=== PATIENT | female | born 1975 ===

== ENCOUNTER 2020-03-26 17:39 | Emergency (ER) | payer MEDICAID, SELFPAY ==
[2020-03-26 17:45] VITALS: BP 158/79; PULSE 83; RESP 18; TEMP 36.5; O2SAT 96; BMI 46.0
--- NOTE | 2020-03-26 20:34 | ED_ITS ---
HPI - Abdominal Pain General Chief Complaint: Abdominal Pain Stated Complaint: Abdominal pain Time Seen by Provider: 03/26/20 20:34 Source: patient Mode of arrival: EMS Limitations: no limitations and language barrier History of Present Illness HPI narrative: patient history of diabetes and gastroparesis complaining of pain left side of abdomen with nausea vomiting for last few days similar to attack 2 years ago patient today vomited about 5 times no diarrhea blood sugar was 408 per EMS but on arrival blood sugar was 295 patient denies any fever no urinary symptoms no back pain MD elicited complaint: abdominal pain Pertinent past history: gastritis Onset (ago): day(s) (2) Related Data Allergies Allergy/AdvReac Type Severity Reaction Status Date / Time ibuprofen [From MOTRIN] Allergy Unknown RASH Verified 03/26/20 21:54 penicillin V Allergy Unknown hives Verified 03/26/20 21:54 Penicillins [PENICILLINS] Allergy Unknown RASH Verified 03/26/20 21:54 MOTRIN Allergy Unknown hives Uncoded 11/12/18 00:00 Review of Systems Review of Systems REVIEW OF SYSTEMS: Pertinent positives and negatives are stated above in the history. GEN: no fevers, chills, fatigue HEENT: no nasal congestion, sore throat, ear pain NEURO: no headache, dizziness, focal weakness PULM: no cough, shortness of breath CV: no chest pain, palpitations, LE edema ABD: no , diarrhea : no dysuria, urgency, frequency SKIN: no rash ROS otherwise negative x 10 Physical Exam Vital Signs: Vital Signs: Last Vital Signs Temp 97.7 F 03/26/20 17:45 Pulse 71 03/26/20 21:52 Resp 16 03/26/20 21:52 BP 161/79 H 03/26/20 21:52 Pulse Ox 97 03/26/20 21:52 Body Mass Index 46.0 Appearance: Alert. Oriented X3. No acute distress. Eyes: Pupils equal, round and reactive to light. ENT: Pharynx normal. Neck: Normal inspection. Neck supple. CVS: Normal heart rate and rhythm. Pulses normal. Respiratory: No respiratory distress. Breath sounds normal. Abdomen: Soft and mild tenderness left-sided no rebound tenderness no guarding no mass palpable no hernia palpable no CVA tenderness bowel sounds are present in all 4 quadrants Skin: Skin warm and dry. Normal skin color. Normal skin turgor. Extremities: No lower extremity edema. Good range of movement Neuro: Oriented X 3. No motor deficit. No sensory deficit. MDM - Abdominal Pain MDM Narrative Medical decision making narrative: patient diabetes gastroparesis came with similar episode of vomiting which happened before with diffuse abdominal pain white counts are normal abdominal soft lipase normal patient able to take p.o. fluids after Reglan will discharge her home on Reglan before meals for gastroparesis Differential Diagnosis Differential diagnosis: Likely abdominal pain and pancreatitis Medical Records Attestation: I reviewed the patient's medical records. Lab Data Attestation: I reviewed the patient's lab results. Result diagrams: 03/26/20 20:41 03/26/20 20:41 Labs: Lab Results 03/26/20 03/26/20 03/26/20 Range/Units 20:40 20:41 20:41 WBC 6.3 (4.8-10.8) X10*3/uL RBC 5.06 (4.20-5.50) X10*6/uL Hgb 13.2 (12.0-16.0) g/dl Hct 42.0 (37-47) % MCV 83.0 (80-98) fL MCH 26.1 L (27.0-33.0) pg MCHC 31.4 (31.0-35.0) g/dl RDW 15.1 (11.0-16.0) % Plt Count 90 L (160-400) X10*3/uL MPV 11.6 (9.4-12.3) fL Immature Gran % (Auto) 0.2 (0.0-0.4) % Neut % (Auto) 82.3 H (45-73) % Lymph % (Auto) 12.5 L (20-40) % [place] % (Auto) 4.0 (2-11) % Eos % (Auto) 0.5 (0-4) % Baso % (Auto) 0.5 (0-2) % Lymph # (Auto) 0.8 L (1.2-4.9) X10*3/uL [place] # (Auto) 0.3 (0.1-1.2) X10*3/uL Eos # (Auto) 0.0 (0.0-0.4) X10*3/uL Baso # (Auto) 0.0 (0.0-0.2) X10*3/uL Abs Immat Gran (auto) 0.01 (0.00-0.03) X10*3/uL Absolute Neuts (auto) 5.2 (2.0-8.3) X10*3/uL Absolute Nucleated RBC 0.000 (0.0-0.012) X10*3/uL Nucleated RBC % (auto) 0.0 (0.0-0.2) /100WBC Smear Tech's Comments VERIFIED Hold Blue Top SEE NOTE Sodium (135-145) mmol/L Potassium (3.3-5.1) mmol/l Chloride (96-108) mmol/L Carbon Dioxide (22-29) mmol/L Anion Gap (12-20) BUN (9-16) mg/dL Creatinine (0.5-1.4) mg/dL Estim Creat Clear Calc Estimated GFR POC Glucose 295 H (60-115) mg/dL Random Glucose (60-115) mg/dL Calcium (8.4-10.2) mg/dL Total Bilirubin (0.0-1.0) mg/dL AST (5-31) U/L ALT (0-31) U/L Alkaline Phosphatase (39-117) U/L Total Protein (6.5-8.0) g/dL Albumin (3.5-5.0) g/dL Lipase (8-78) U/L Urine Color Urine Appearance Urine pH (5.0-8.0) Ur Specific [place] (1.005-1.025) Urine Protein (NEG-TRACE) MG/DL Urine Glucose (UA) (NEG) MG/DL Urine Ketones (NEG) MG/DL Urine Blood (NEG) Urine Nitrite (NEG) Ur Leukocyte Esterase (NEG) Urine RBC (0) /HPF Urine WBC (0-4) /HPF Ur Squamous Epith Cells /LPF Urine Bacteria /LPF Urine Test (NEGATIVE) 03/26/20 03/26/20 Range/Units 20:41 20:41 WBC (4.8-10.8) X10*3/uL RBC (4.20-5.50) X10*6/uL Hgb (12.0-16.0) g/dl Hct (37-47) % MCV (80-98) fL MCH (27.0-33.0) pg MCHC (31.0-35.0) g/dl RDW (11.0-16.0) % Plt Count (160-400) X10*3/uL MPV (9.4-12.3) fL Immature Gran % (Auto) (0.0-0.4) % Neut % (Auto) (45-73) % Lymph % (Auto) (20-40) % [place] % (Auto) (2-11) % Eos % (Auto) (0-4) % Baso % (Auto) (0-2) % Lymph # (Auto) (1.2-4.9) X10*3/uL [place] # (Auto) (0.1-1.2) X10*3/uL Eos # (Auto) (0.0-0.4) X10*3/uL Baso # (Auto) (0.0-0.2) X10*3/uL Abs Immat Gran (auto) (0.00-0.03) X10*3/uL Absolute Neuts (auto) (2.0-8.3) X10*3/uL Absolute Nucleated RBC (0.0-0.012) X10*3/uL Nucleated RBC % (auto) (0.0-0.2) /100WBC Smear Tech's Comments Hold Blue Top Sodium 133 L (135-145) mmol/L Potassium 4.3 (3.3-5.1) mmol/l Chloride 100 (96-108) mmol/L Carbon Dioxide 23 (22-29) mmol/L Anion Gap 14 (12-20) BUN 8 L (9-16) mg/dL Creatinine 0.75 (0.5-1.4) mg/dL Estim Creat Clear Calc 118.7 Estimated GFR > 60 POC Glucose (60-115) mg/dL Random Glucose 299 H (60-115) mg/dL Calcium 8.2 L (8.4-10.2) mg/dL Total Bilirubin 0.8 (0.0-1.0) mg/dL AST 81 H (5-31) U/L ALT 36 H (0-31) U/L Alkaline Phosphatase 101 (39-117) U/L Total Protein 8.4 H (6.5-8.0) g/dL Albumin 3.5 (3.5-5.0) g/dL Lipase 37 (8-78) U/L Urine Color YELLOW Urine Appearance CLEAR Urine pH 6.0 (5.0-8.0) Ur Specific [place] >= 1.030 H (1.005-1.025) Urine Protein NEG (NEG-TRACE) MG/DL Urine Glucose (UA) 500 H (NEG) MG/DL Urine Ketones 5 (NEG) MG/DL Urine Blood TRACE (NEG) Urine Nitrite NEG (NEG) Ur Leukocyte Esterase NEG (NEG) Urine RBC 0 (0) /HPF Urine WBC 0 (0-4) /HPF Ur Squamous Epith Cells NONE /LPF Urine Bacteria NONE /LPF Urine Test NEGATIVE (NEGATIVE) [facility] Past Medical History Surgical History History of colonoscopy Hx of endoscopy Family History Family History Father Unknown family medical history Mother Hx of type 1 diabetes mellitus Social History Social History Alcohol intake: never Smoking Status: Never smoker Advance Directives: No
[2020-03-26 20:43] LABS: Glucose, Whole Blood 295 mg/dL (60-115)
[2020-03-26] MEDS: 0.9 % Sodium Chloride 1,000 ML 999 ML IVCONT (20:48)
[2020-03-26] MEDS: Famotidine/PF 20 MG/2 ML VIAL IVPUSH (20:53)
[2020-03-26] MEDS: Metoclopramide HCl 10 MG/2 ML VIAL IVPUSH (20:54)
[2020-03-26 20:56] LABS: Glucose Urine UA 500 MG/DL (NEG); Leukocyte Esterase Urine NEG (NEG); Nitrite Urine NEG (NEG); Specific Gravity - Urine >= 1.030 (1.005-1.025); Urine Blood TRACE (NEG); Urine Ketones 5 MG/DL (NEG); Urine Protein NEG (NEG-TRACE)
[2020-03-26 20:57] LABS: Basophils Percent Auto 0.5 % (0-2); Eosinophils Percent Auto 0.5 % (0-4); Imm Gran Abs Auto 0.01 X10*3/uL (0.00-0.03); Imm Gran Pct Auto 0.2 % (0.0-0.4); MANUAL DIFF FLAG SCAN; Mean Corpuscular HGB Conc 31.4 g/dl (31.0-35.0); PLT CLUMP 1; Red Cell Distribution Width 15.1 % (11.0-16.0); SCAN SMEAR FLAG 1
[2020-03-26 20:58] LABS: Appearance Urine CLEAR; Color Urine YELLOW
[2020-03-26 20:59] LABS: Hemoglobin 13.2 g/dl (12.0-16.0); Lymphocytes Absolute Auto 0.8 X10*3/uL (1.2-4.9); Lymphocytes Percent Auto 12.5 % (20-40); Mean Corpuscular Hemoglobin 26.1 pg (27.0-33.0); Mean Platelet Volume 11.6 fL (9.4-12.3); Monocytes Absolute Auto 0.3 X10*3/uL (0.1-1.2); Neutrophils Absolute Auto 5.2 X10*3/uL (2.0-8.3); Neutrophils Percent Auto 82.3 % (45-73); Red Blood Count 5.06 X10*6/uL (4.20-5.50); White Blood Count 6.3 X10*3/uL (4.8-10.8)
[2020-03-26 21:00] LABS: UPreg QC Valid YES; Urine Pregnancy NEGATIVE (NEGATIVE)
[2020-03-26 21:02] LABS: RBC Urine 0 /HPF (0); WBC Urine 0 /HPF (0-4)
[2020-03-26 21:18] LABS: Platelet Count 90 X10*3/uL (160-400)
[2020-03-26 21:19] LABS: SLIDE REVIEW VERIFIED
[2020-03-26 21:38] LABS: Alanine Aminotransferase 36 U/L (0-31); Albumin Level 3.5 g/dL (3.5-5.0); Alkaline Phosphatase 101 U/L (39-117); Anion Gap 14 (12-20); Aspartate Amino Transferase 81 U/L (5-31); Bilirubin Total 0.8 mg/dL (0.0-1.0); Blood Urea Nitrogen 8 mg/dL (9-16); Calcium 8.2 mg/dL (8.4-10.2); Carbon Dioxide 23 mmol/L (22-29); Chloride 100 mmol/L (96-108); Creatinine Clr Calc Pharmacy 118.7; Estimated Glomerular Filt Rate > 60; Glucose Random 299 mg/dL (60-115); Lipase 37 U/L (8-78); Potassium 4.3 mmol/l (3.3-5.1); Sodium 133 mmol/L (135-145); Total Protein 8.4 g/dL (6.5-8.0)
[2020-03-26 21:52] VITALS: BP 161/79; PULSE 71; RESP 16; O2SAT 97
--- NOTE | 2020-03-26 22:50 | PC.NURSE ---
po challenge started.
--- NOTE | 2020-03-26 22:55 | PC.NURSE ---
after drinking some julianna nancy, vomited. Dr Rocha aware.
[2020-03-26] MEDS: ondansetron HCL 4 MG/2 ML VIAL IVPUSH (23:04)
== END 2020-03-26 23:41 | disposition home or self-care (01) ==
PROVIDERS: Emergency Provider Internal Medicine; PCP Family Medicine
DX: E11.43 Type 2 diabetes mellitus with diabetic autonomic (poly)neuropathy (principal); K75.81 Nonalcoholic steatohepatitis (NASH)
CPT/HCPCS: 36415; 80053; 81001; 81025; 82947; 83690; 85025; 96361; 96374; 96375; 99284; J2405; J2765

== ENCOUNTER → 2020-05-21 15:19 | Outpatient (BNVA) | payer MEDICAID, SELFPAY | PROVIDERS: PCP Family Medicine; Visit Provider Internal Medicine Gastroenterology ==

== ENCOUNTER 2020-06-12 09:01 | Outpatient (REF) | payer MEDICAID, SELFPAY ==
--- NOTE | ~2020-06-12 | US_ITS ---
EXAMINATION: US ABDOMEN LIMITED WITH LIVER ELASTOGRAPHY CLINICAL INFORMATION: Nonalcoholic steatohepatitis. COMPARISON: 10/04/2019 TECHNIQUE: Real-time imaging of the abdominal viscera. Noninvasive ultrasound liver fibrosis assessment is performed using [place] ElastPQ point quantification shear wave elastography (pSWE) with a C5-2 MHz transducer. Multiple elastography samples are obtained. FINDINGS: PANCREAS: The visualized pancreatic head and body are normal in appearance. The remainder of the pancreas is obscured from visualization by the overlying bowel gas. LIVER: Diffuse increased echogenicity. No focal lesion or intrahepatic biliary duct dilatation. The right lobe measures 18.8 cm in length. The left lobe measures 15.9 cm in length. Portal flow is hepatopedal. Elastography measurement is limited due to patient body habitus. Shear wave liver elastography median stiffness is 2.2 m/s (reference: normal median stiffness is 1.3 m/s or less). IQR/median stiffness to assess sampling precision is 0.44 (reference: good quality data set is IQR/median stiffness of 0.15 or less). GALLBLADDER: Gallstones present. No gallbladder wall thickening or pericholecystic fluid. No tenderness in the area of the gallbladder. COMMON BILE DUCT: Normal in caliber measuring 0.3 cm in diameter. RIGHT KIDNEY: Normal. No hydronephrosis. No renal calculi or focal parenchymal lesions. The kidney measures 13 cm in maximum dimension. FREE FLUID: None. US/US abdomen guidry w elastography IMPRESSION: 1. . There is generalized increase in hepatic echotexture, consistent with fatty infiltration or hepatocellular disease. Please correlate clinically. No focal hepatic mass or intrahepatic biliary duct dilatation is seen. 2. Cholelithiasis without evidence of cholecystitis. 3. Liver elastography: Evaluation/measurements are limited due to patient body habitus. IQR/median stiffness to assess sampling precision is 0.44. This is suggestive of poor quality data set. 4. Median stiffness measurements of 2.2 m/s. Although this could suggest compensated advanced chronic liver disease (see reference attachment), there is questionable reliability of the measurements. Recommend follow-up ultrasound for evaluation. REFERENCE: Society of Radiologists in Ultrasound Liver Stiffness Thresholds (2020): LIVER STIFFNESS THRESHOLDS: *Liver Stiffness equal or less than 1.3 m/s: High probability of being normal. *Liver Stiffness less than 1.7 m/s: In the absence of other known clinical signs, rules out compensated advanced chronic liver disease. *Liver Stiffness 1.7-2.1 m/s: Suggestive of compensated advanced chronic liver disease but need further test for confirmation. *Liver Stiffness over 2.1 m/s: Rules in compensated advanced chronic liver disease. *Liver Stiffness over 2.4 m/s: Suggestive of clinically significant portal hypertension. QUALITY OF DATA SET: *IQR/Median value equal or less than 0.15 implies a quality data set. *IQR/Median value over 0.15 implies a poor quality data set. SIGNIFICANT CHANGE FROM PRIOR EXAM: Significant change if liver stiffness measurement is 10% or greater from prior exam. OTHER CONSIDERATIONS: The stage of liver fibrosis may be overestimated in the setting of acute hepatitis, liver inflammation, elevated liver function tests, hepatic vascular congestion, obstructive cholestasis, non-fasting state, and infiltrative diseases such as amyloidosis and lymphoma. In some patients with NAFLD, the liver stiffness thresholds for compensated advanced chronic liver disease may be lower. In causes other than viral hepatitis and NAFLD, liver stiffness thresholds are not well established.
== END 2020-06-12 09:02 | disposition home or self-care (01) ==
LOC: HO.US 09:01
PROVIDERS: PCP Family Medicine; Visit Provider Internal Medicine Gastroenterology
DX: K75.81 Nonalcoholic steatohepatitis (NASH) (principal); K74.60 Unspecified cirrhosis of liver
CPT/HCPCS: 76705; 76981

== ENCOUNTER 2020-06-27 13:23 | Outpatient (REF) | payer MEDICAID, SELFPAY ==
--- NOTE | 2020-06-27 14:00 | PFT_ITS ---
FLOWS: FEV1 of 99% of predicted at 2.80 L. FVC 89% of predicted at 3.08 L. FEV1 to FVC ratio of 0.91. No bronchodilator response except in small to medium airways. LUNG VOLUMES: Total lung capacity 109% of predicted at 5.36 L. Residual volume 149% of predicted at 2.29 L. Slow vital capacity 94% of predicted at 3.07 L. Expiratory reserve volume 28% of predicted at 0.31 L. Diffusion capacity is normal. IMPRESSION: No obstructive or restrictive ventilatory defect. No bronchodilator response except in small to medium airways. Increased residual volume suggests air trapping. This test result can be observed in a patient with clinical asthma. Clinical correlation is advised. MD KALE García/MODL / [id number]
== END 2020-06-27 13:24 | disposition home or self-care (01) ==
LOC: HO.RESP 13:23
PROVIDERS: Visit Provider Family Medicine
DX: G47.33 Obstructive sleep apnea (adult) (pediatric) (principal); J45.40 Moderate persistent asthma, uncomplicated
CPT/HCPCS: 94060; 94727; 94729

== ENCOUNTER → 2020-08-16 11:55 | Outpatient (BNVA) | payer MEDICAID, SELFPAY | PROVIDERS: PCP Family Medicine; Visit Provider Internal Medicine Endocrinology, Diabetes & Metabolism | DX: E11.65 Type 2 diabetes mellitus with hyperglycemia (principal); E11.21 Type 2 diabetes mellitus with diabetic nephropathy; Z79.4 Long term (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 insulin; E28.2 Polycystic ovarian syndrome; E66.01 Morbid (severe) obesity due to excess calories; E22.0 Acromegaly and pituitary gigantism; E04.9 Nontoxic goiter, unspecified; R79.89 Other specified abnormal findings of blood chemistry | CPT/HCPCS: 82947; 99202 ==

== ENCOUNTER 2020-08-29 13:33 | Outpatient (REF) | payer MEDICAID, SELFPAY ==
--- NOTE | ~2020-08-29 | US_ITS ---
EXAMINATION: US THYROID CLINICAL INFORMATION: Abnormal blood chemistries. Elevated TSH COMPARISON: None TECHNIQUE: Linear transducer grayscale and color Doppler examination with attention to the region of the thyroid. FINDINGS: SIZE: Measurements of the thyroid lobes and nodules are given in sagittal, anteroposterior and transverse dimensions respectively. Right Thyroid Lobe: 5.3 x 1.8 x 2.0 cm, volume 10.2 mL. Parenchyma: The gland echotexture is homogeneous. Thyroid vascularity is normal. Left Thyroid Lobe: 5.4 x 1.5 x 1.8 cm, volume 7.5 mL. Parenchyma: The gland echotexture is homogeneous. Thyroid vascularity is normal. Isthmus: 0.4 cm in maximum AP dimension. Estimated total number of nodules greater than or equal to 1 cm: 2. Beauty Director nodules are described as follows: 1. Location: Right mid. Size: 1.4 x 1.3 x 1.3 cm, volume 1.2 mL. Nodule characteristics: Composition: Solid (2). Echogenicity: Hyperechoic (1). Shape: Not taller than wide (0). Margins: Smooth (0). Echogenic Foci: None (0). ACR TI-RADS total points: 3 ACR TI-RADS category: 3 2. Location: Right lower pole. Size: 1.8 x 1.2 x 1.8 cm, volume 2.0 mL. Nodule characteristics: Composition: Spongiform (0). Echogenicity: 0 Shape: 0 Margins: 0 Echogenic Foci: 0 ACR TI-RADS total points: 0 ACR TI-RADS category: 1 3. Location: Left mid. Size: 0.3 x 0.06 x 0.2 cm, volume 0.002 mL. Nodule characteristics: Composition: Solid (2). Echogenicity: Hyperechoic (1). Shape: Not taller than wide (0). Margins: Smooth (0). Echogenic Foci: Macrocalcifications (1). ACR TI-RADS total points: 4 ACR TI-RADS category: 4 4. Location: Left isthmus. Size: 0.4 x 0.3 x 0.3 cm, volume 0.02 mL. Nodule characteristics: Composition: Solid (2). Echogenicity: Isoechoic (1). Shape: Not taller than wide (0). Margins: Smooth (0). Echogenic Foci: None (0). ACR TI-RADS total points: 3 ACR TI-RADS category: 3 NODES: There is a small right cervical lymph node. US/US thyroid IMPRESSION: Slightly enlarged right lobe. Bilateral nodules, right larger than left. These do not meet TI-RADS criteria for ultrasound follow-up. ACR TI-RADS RECOMMENDATION REFERENCE: Ultrasound-guided fine-needle aspiration, followup ultrasound, no further follow up. * TR1 (0 point) and TR 2 (2 points): No FNA or follow up * TR3 (3 points): FNA if more than or equal to 2.5 cm in maximum dimension, followup ultrasound in 1, 3 and 5 years if 1.5 to 2.4 cm in maximum dimension. * TR4 (4-6 points): FNA if more than or equal to 1.5 cm in maximum dimension, followup ultrasound in 1, 2, 3 and 5 years if 1 to 1.4 cm in maximum dimension. * TR5 (more than or equal to 7 points): FNA if more than or equal to 1 cm in maximum dimension, followup ultrasound every year for 5 years if 0.5 to 0.9 cm in maximum dimension. * TR3, TR4 or TR5 nodules that are below the size threshold for follow up receive no follow up.
== END 2020-08-29 13:34 | disposition home or self-care (01) ==
LOC: HO.US 13:33
PROVIDERS: Visit Provider Internal Medicine Endocrinology, Diabetes & Metabolism
DX: E04.9 Nontoxic goiter, unspecified (principal); R79.89 Other specified abnormal findings of blood chemistry
CPT/HCPCS: 76536

== ENCOUNTER 2020-08-30 14:48 | Outpatient (REF) | payer MEDICAID, SELFPAY ==
--- NOTE | ~2020-08-30 | MR_ITS ---
MRI OF THE BRAIN WITH AND WITHOUT IV CONTRAST INDICATION: Acromegaly and pituitary gigantism COMPARISON: None available. TECHNIQUE: Multiplanar multisequence MR imaging of the brain was obtained without and following the administration of 5 mL of Gadavist without complication. FINDINGS: Pituitary gland exhibits homogenous enhancement without any discrete hypoenhancing lesions to suggest a pituitary adenoma. The visualized midline. No mass effect on the optic nerve apparatus. Cavernous sinuses are symmetric and normal. There is no pathologic intracranial enhancement. High T1 signal intensity within the basal ganglia bilaterally in keeping with manganese deposition in the setting of the patients known history of chronic liver disease. There are mild T2 signal changes within the supratentorial white matter that are nonspecific. There is no hydrocephalus, extra-axial surface collection, or herniation. The major flow voids at the skull base are preserved. There is no acute infarct on diffusion-weighted imaging. The midline structures are normal. The cerebellar tonsils are normally positioned. The cerebellum and brainstem are normal. The craniocervical junction is normal. Osseous marrow signal intensity is homogenous. The visualized soft tissues are unremarkable. There is a small fluid level within the right maxillary sinus. MR/MR head/brain wo/w con IMPRESSION: - No definite discrete pituitary lesions are identified. There is no sellar/suprasellar mass effect. - High T1 signal intensity within the basal ganglia bilaterally in keeping with manganese deposition in the setting of the patients known history of chronic liver disease. - There are mild T2 signal changes within the supratentorial white matter that are nonspecific. - There is a small fluid level within the right maxillary sinus.
[2020-08-30 14:48] LABS: Blood Urea Nitrogen 6 mg/dL (9-16); Estimated Glomerular Filt Rate > 60
== END 2020-08-30 14:49 | disposition home or self-care (01) ==
LOC: HO.MRI 14:48
PROVIDERS: Visit Provider Internal Medicine Endocrinology, Diabetes & Metabolism
DX: E22.0 Acromegaly and pituitary gigantism (principal)
CPT/HCPCS: 36415; 70553; 82565; 84520; A9585

== ENCOUNTER 2020-09-05 10:46 | Outpatient (REF) | payer MEDICAID, SELFPAY | END 2020-09-05 10:47 | disposition home or self-care (01) | LOC: HO.LAB 10:46 | PROVIDERS: PCP Family Medicine; Visit Provider Internal Medicine Endocrinology, Diabetes & Metabolism | DX: Z13.89 Encounter for screening for other disorder (principal) ==

== ENCOUNTER 2020-09-06 07:41 | Outpatient (REF) | payer MEDICAID, SELFPAY ==
[2020-09-06 08:40] LABS: Alanine Aminotransferase 29 U/L (0-31); Albumin Level 3.2 g/dL (3.5-5.0); Alkaline Phosphatase 134 U/L (39-117); Anion Gap 12 (12-20); Aspartate Amino Transferase 46 U/L (5-31); Blood Urea Nitrogen 4 mg/dL (9-16); Calcium 8.6 mg/dL (8.4-10.2); Carbon Dioxide 24 mmol/L (22-29); Chloride 100 mmol/L (96-108); Estimated Glomerular Filt Rate > 60; Glucose Fasting 343 mg/dL (60-99); Potassium 3.9 mmol/L (3.3-5.1); Sodium 132 mmol/L (135-145); Total Protein 7.7 g/dL (6.5-8.0)
[2020-09-06 09:00] LABS: Free T4 (Free Thyroxine) 0.96 ng/dL (0.71-1.85); Thyroid Stimulating Hormone 3.21 uIU/mL (0.32-4.0)
[2020-09-06 09:17] LABS: Creatinine Urine 64.02 mg/dL; Microalbum/Creatinine Ratio Ur 12.4 ug/mg cr
[2020-09-07 13:25] LABS: Triiodothyronine T3 Total 145 ng/dL (76-181)
[2020-09-07 15:26] LABS: DHEA Sulfate 32 mcg/dL (19-231); Human Growth Hormone 0.5 ng/mL (< OR = 7.1); Sex Hormone Binding Globulin 87 nmol/L (17-124); Thyroglobulin Antibodies <1 IU/mL (< or = 1); Thyroid Peroxidase Antibodies 1 IU/mL (<9)
[2020-09-07 21:26] LABS: Follicle Stimulating Hormone 8.9 mIU/mL; Lutenizing Hormone 9.6 mIU/mL; Prolactin Undiluted 7.1 ng/mL
[2020-09-07 22:42] LABS: Adrenocorticotropic Hormone 14 pg/mL (6-50)
[2020-09-08 05:31] LABS: LDL Cholesterol Direct 98 mg/dL (<100)
[2020-09-10 13:12] LABS: IGF-1 (Somatomedin C) 19 ng/mL (52-328); IGF-1 Z Score (Female) -3.6 SD (-2.0 - +2.0)
[2020-09-10 16:27] LABS: Testosterone, Free 17.8 pg/mL (0.1-6.4); Testosterone, Total 191 ng/dL (2-45)
[2020-09-11 18:36] LABS: Androstenedione 90 ng/dL
[2020-09-13 01:41] LABS: Estradiol Free 1.49 pg/mL; Estradiol, Ultrasensitive 82 pg/mL
== END 2020-09-06 07:42 | disposition home or self-care (01) ==
LOC: HO.LAB 07:41
PROVIDERS: PCP Family Medicine; Visit Provider Internal Medicine Endocrinology, Diabetes & Metabolism
DX: E04.9 Nontoxic goiter, unspecified (principal); R79.89 Other specified abnormal findings of blood chemistry; E22.0 Acromegaly and pituitary gigantism; E28.2 Polycystic ovarian syndrome; E11.65 Type 2 diabetes mellitus with hyperglycemia
CPT/HCPCS: 36415; 80053; 82024; 82043; 82157; 82533; 82627; 82670; 82681; 83001; 83002; 83003; 83498; 83721; 84146; 84270; 84305; 84402; 84403; 84439; 84443; 84480; 86376; 86800

== ENCOUNTER → 2021-02-22 09:19 | Outpatient (BNVA) | payer MEDICAID, SELFPAY | PROVIDERS: PCP Family Medicine; Visit Provider Internal Medicine Gastroenterology ==

== ENCOUNTER 2021-03-22 09:47 | Outpatient (REF) | payer MEDICAID, SELFPAY ==
[2021-03-22 10:06] LABS: MANUAL DIFF FLAG NO
[2021-03-22 10:39] LABS: INTERNATIONAL NORM RATIO 1.4 (0.9-1.1); Prothrombin Time 15.9 SEC (9.9-13.0)
[2021-03-22 10:40] LABS: Basophils Percent Auto 0.8 % (0-2); Eosinophils Absolute Auto 0.1 X10*3/uL (0.0-0.4); Eosinophils Percent Auto 2.7 % (0-4); Hematocrit 39.5 % (37.0-47.0); Hemoglobin 12.6 g/dl (12.0-16.0); Imm Gran Abs Auto 0.01 X10*3/uL (0.00-0.03); Imm Gran Pct Auto 0.3 % (0.0-0.4); Lymphocytes Absolute Auto 0.5 X10*3/uL (1.2-4.9); Lymphocytes Percent Auto 13.1 % (20-40); Mean Corpuscular HGB Conc 31.9 g/dl (31.0-35.0); Mean Corpuscular Hemoglobin 27.5 pg (27.0-33.0); Mean Corpuscular Volume 86.1 fL (80.0-98.0); Mean Platelet Volume 11.1 fL (9.4-12.3); Monocytes Absolute Auto 0.4 X10*3/uL (0.1-1.2); Monocytes Percent Auto 10.1 % (2-11); Neutrophils Absolute Auto 2.7 x10*3/uL (2.0-8.3); Red Blood Count 4.59 X10*6/uL (4.20-5.50); Red Cell Distribution Width 15.2 % (11.0-16.0); White Blood Count 3.8 X10*3/uL (4.8-10.8)
[2021-03-22 10:41] LABS: Platelet Count 85 X10*3/uL (160-400)
[2021-03-22 11:07] LABS: Alanine Aminotransferase 41 U/L (0-31); Albumin Level 3.1 g/dL (3.5-5.0); Alkaline Phosphatase 118 U/L (39-117); Anion Gap 10 (12-20); Aspartate Amino Transferase 61 U/L (5-31); Bilirubin Total 0.8 mg/dL (0.0-1.0); Blood Urea Nitrogen 4 mg/dL (9-16); Calcium 8.6 mg/dL (8.4-10.2); Carbon Dioxide 27 mmol/L (22-29); Chloride 98 mmol/L (96-108); Estimated Glomerular Filt Rate > 60; Glucose Random 372 mg/dL (60-115); Potassium 4.3 mmol/L (3.3-5.1); Sodium 131 mmol/L (135-145); Total Protein 7.8 g/dL (6.5-8.0)
== END 2021-03-22 09:48 | disposition home or self-care (01) ==
LOC: HO.LAB 09:47
PROVIDERS: PCP Family Medicine; Visit Provider Internal Medicine Gastroenterology
DX: K74.60 Unspecified cirrhosis of liver (principal); K75.81 Nonalcoholic steatohepatitis (NASH)
CPT/HCPCS: 36415; 80053; 85025; 85610

== ENCOUNTER 2021-04-04 13:49 | Outpatient (REF) | payer MEDICAID, SELFPAY ==
--- NOTE | ~2021-04-04 | US_ITS ---
EXAMINATION: US ABDOMEN LIMITED CLINICAL INFORMATION: Nonalcoholic steatohepatitis. COMPARISON: Prior ultrasound studies of 06/12/2020 and 10/04/2019 TECHNIQUE: Real-time imaging of the right upper quadrant abdominal viscera. FINDINGS: PANCREAS: Normal. LIVER: The liver appears nodular in contour with enlargement of the left lobe, suggestive of underlying macronodular cirrhosis. Echotexture is somewhat heterogeneous. No discrete hepatic mass is evident. There is no biliary ductal dilatation. Flow in the main portal vein is hepatopedal. GALLBLADDER: There are are several shadowing nonmobile calculi within the gallbladder. The gallbladder wall measures 2 mm. No pericholecystic fluid or sonographic Aguirre sign is evident. COMMON BILE DUCT: Normal in caliber measuring 0.3 cm in diameter. RIGHT KIDNEY: Normal. No hydronephrosis. No renal calculi or focal parenchymal lesions. The kidney measures 12.1 cm in maximum dimension. FREE FLUID: None. US/US abdomen limited IMPRESSION: 1. Nodular contour to the liver with enlargement of the left lobe suggesting underlying cirrhosis. 2. Cholelithiasis without ancillary signs of cholecystitis.
== END 2021-04-04 13:50 | disposition home or self-care (01) ==
LOC: HO.US 13:49
PROVIDERS: PCP Family Medicine; Visit Provider Internal Medicine Gastroenterology
DX: K75.81 Nonalcoholic steatohepatitis (NASH) (principal); K74.60 Unspecified cirrhosis of liver
CPT/HCPCS: 76705

== ENCOUNTER → 2021-06-24 11:37 | Outpatient (BNVA) | payer MEDICAID, SELFPAY | PROVIDERS: PCP Family Medicine; Referring Provider Family Medicine; Visit Provider Internal Medicine Gastroenterology | DX: K75.81 Nonalcoholic steatohepatitis (NASH) (principal); K74.60 Unspecified cirrhosis of liver | CPT/HCPCS: 99212 ==

== ENCOUNTER → 2021-07-09 12:28 | Outpatient (BNVA) | payer MEDICAID, SELFPAY | PROVIDERS: PCP Family Medicine; Visit Provider Orthopaedic Surgery | DX: R20.0 Anesthesia of skin (principal); R20.2 Paresthesia of skin | CPT/HCPCS: 99202 ==

== ENCOUNTER 2021-08-21 09:45 | Day surgery (SDC) | payer MEDICAID, SELFPAY ==
--- NOTE | 2021-08-20 12:03 | HO.ANESPROP2 ---
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 (Acute) Diabetes type 2, uncontrolled (Acute) Past Medical History Medical History Acromegaly Asthma Diabetes type 2, uncontrolled Diabetic nephropathy associated with type 2 diabetes mellitus Dyslipidemia Elevated TSH Goiter HTN (hypertension) 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 Morbid obesity Non-toxic multinodular goiter AMY (obstructive sleep apnea) PCOS (polycystic ovarian syndrome) Family History Family History Father Unknown family medical history Mother Hx of type 1 diabetes mellitus Surgical History Surgical History Hx of colonoscopy Hx of endoscopy Social History Social History (Updated 07/09/21 @ 12:49 by YUNG Dorsey) Household Members: Spouse Alcohol intake: current Alcohol intake frequency: holidays/special occasions only Patient Tobacco Use Status: Never used Tobacco Current occupational status: disabled 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 Meds Allergies Allergy/AdvReac Type Severity Reaction Status Date / Time ibuprofen [From MOTRIN] Allergy Unknown RASH Verified 08/15/21 15:52 penicillin V Allergy Unknown hives Verified 08/15/21 15:52 codeine Allergy Unknown Verified 08/15/21 15:53 Rx- listed on H&P Home Medications Medication Instructions Recorded Confirmed Last Taken Type albuterol sulfate 90 mcg/actuation 2 puff INHALATION Q6H PRN 08/16/20 08/15/21 Unknown History aerosol inhaler (ProAir HFA) amitriptyline 50 mg tablet 50 mg PO BEDTIME 08/16/20 08/15/21 Unknown History aspirin 81 mg tablet,delayed 81 mg PO DAILY 08/16/20 08/15/21 Unknown History release (Adult Low Dose Aspirin) blood sugar diagnostic (FreeStyle #10 ea 08/16/20 08/16/20 Unknown History Lite Strips) cholecalciferol (vitamin D3) 50 50 mcg PO DAILY 08/16/20 08/15/21 Unknown History mcg (2,000 unit) capsule dicyclomine 10 mg capsule 10 mg PO BID 08/16/20 08/15/21 Unknown History fluticasone propionate 220 2 puff INHALATION BID 08/16/20 08/15/21 Unknown History mcg/actuation HFA aerosol inhaler (Flovent HFA) ipratropium 0.5 mg-albuterol 3 mg 3 ml INHALATION Q6-8H PRN 08/16/20 08/15/21 Unknown History (2.5 mg base)/3 mL nebulization soln lancets 28 gauge (FreeStyle #100 ea 08/16/20 08/16/20 Unknown History Lancets) loratadine 10 mg capsule 10 mg PO DAILY 08/16/20 08/15/21 Unknown History metformin 500 mg tablet 500 mg PO BID 08/16/20 08/15/21 Unknown History montelukast 10 mg tablet 10 mg PO BEDTIME 08/16/20 08/15/21 Unknown History (Singulair) ondansetron HCl 4 mg tablet 4 mg PO Q8H 08/16/20 08/16/20 Unknown History (Zofran) ranitidine HCl 150 mg tablet mg PO DAILY tab 08/16/20 08/16/20 Unknown History spironolactone 50 mg tablet 50 mg PO DAILY 08/16/20 08/15/21 Unknown History dulaglutide 0.75 mg/0.5 mL mg SUBCUT QWEEK 08/15/21 08/15/21 Unknown History subcutaneous pen injector (Trulicity) lisinopril 2.5 mg tablet 1 tab PO DAILY 08/15/21 08/15/21 Unknown History Exam Exam Date and Time: August 20, 2021 1203 Pertinent Lab Results Pertinent Lab Results: Laboratory Tests 03/22/21 10:04 Calcium 8.6 Total Bilirubin 0.8 AST 61 H ALT 41 H Alkaline Phosphatase 118 H Total Protein 7.8 Albumin 3.1 L Assessment and Plan Assessment Anesthesia Assessment: Chart Reviewed
--- NOTE | 2021-08-21 11:03 | P.HPSUR_ITS ---
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 Morbid obesity Non-toxic multinodular goiter AMY (obstructive sleep apnea) PCOS (polycystic ovarian syn) History of Previous Operations: Relevant previous surgery/procedure and date(s) (Hx of colonoscopy Hx of endoscopy) Allergies: Allergies Allergy/AdvReac Type Severity Reaction Status Date / Time ibuprofen [From MOTRIN] Allergy Unknown RASH Verified 08/15/21 15:52 penicillin V Allergy Unknown hives Verified 08/15/21 15:52 codeine Allergy Unknown Verified 08/15/21 15:53 Rx- listed on H&P Review of Systems Sugical H&P ROS: Negative: Constitution, Cardiovascular, Respiratory, Neurological, Psychiatric, Hem-Onc, Allergic/Immunologic, Gastrointestinal, Teresa tourinary, Musculoskeletal, Integumentary, Endocrine and Eyes/Ears/Nose/Throat Exam Surgical H&P Exam: Normal: HEENT, Normal: Heart, Normal: Lungs, Normal: Extremities, Normal: Abdomen, Normal: Skin and Normal: Neurological Plan Diagnosis/Plan: Change I have reviewed the history and physical and performed a pertinent physical examination on my patient. No changes have occurred unless specified. Pt was supposed to get EGD and colonoscopy but colon was cancelled due to eating full meal yesterday and brown stool output, so only EGD done today
[2021-08-21 11:15] LABS: Hematocrit 38.6 % (37.0-47.0); Hemoglobin 12.3 g/dl (12.0-16.0); Mean Corpuscular HGB Conc 31.9 g/dl (31.0-35.0); Mean Corpuscular Hemoglobin 27.4 pg (27.0-33.0); Mean Platelet Volume 11.2 fL (9.4-12.3); Red Blood Count 4.49 X10*6/uL (4.20-5.50); Red Cell Distribution Width 14.8 % (11.0-16.0); White Blood Count 5.6 X10*3/uL (4.8-10.8)
[2021-08-21 11:16] LABS: Platelet Count 76 X10*3/uL (160-400)
[2021-08-21 11:19] LABS: UPreg QC Valid YES; Urine Pregnancy NEGATIVE (NEGATIVE)
[2021-08-21 11:23] LABS: Glucose, Whole Blood 237 mg/dL (60-115)
[2021-08-21 11:31] LABS: Anion Gap 10 (12-20); Blood Urea Nitrogen 3 mg/dL (9-16); Calcium 8.7 mg/dL (8.4-10.2); Carbon Dioxide 28 mmol/L (22-29); Chloride 99 mmol/L (96-108); Estimated Glomerular Filt Rate > 60; Glucose Fasting 245 mg/dL (60-99); Potassium 3.9 mmol/L (3.3-5.1); Sodium 133 mmol/L (135-145)
[2021-08-21 11:35] VITALS: BP 121/68; PULSE 98; RESP 18; TEMP 36.8; O2SAT 100; BMI 42.5
--- NOTE | 2021-08-21 12:32 | PC.NURSE ---
upon asking pt about prep again, didn;'t follow prep instructions. colonoscopy cx'd and egd only to be performed.
--- NOTE | 2021-08-21 12:36 | P.BOP_ITS ---
Brief Operative Note Date of Service: 08/21/21 Pre-op diagnosis: cirrhosis,variceal screening Post-op diagnosis: same Procedure: see op note Surgeon: Sergei Verma MD Anesthesia: MAC Was an Senior Net Developer Architect used for this Procedure?: No Estimated blood loss (mL): 0 Condition: stable Disposition: PACU
--- NOTE | 2021-08-21 12:37 | W.PM.OPN ---
Operative Note Operative Note Date of Service: 08/21/21 Narrative: Procedure Description: EGD Indication: variceal screening Anesthesia: MAC FLEXIBLE TRANSORAL UPPER GASTROINTESTINAL ENDOSCOPY UPPER ENDOSCOPY Consent: Indications for the procedure and potential complications of bleeding, perforation, reaction to medications and missed diagnosis were discussed with the patient and informed consent was obtained. Instrument: Olympus GIF H 190 J mid size upper endoscope Monitoring: Vital signs and clinical assessment, continuous EKG monitoring, Pulse oximetry, Carbon Dioxide monitoring and blood pressure monitoring were done throughout the procedure. Procedure: The patient was placed in the left lateral decubitis position and pre-procedure medications were administered and a bite block was placed. The endoscope was inserted into the mouth and advanced under direct vision to the third part of duodenum. A careful inspection was made as the upper endoscope was withdrawn including a retroflexed examination of the proximal stomach; Findings and interventions are described below. Findings: Larynx:normal Esophagus: GE junction at 38 cm, diaphragm hiatus at 38 cm, x 2 columns of grade II varices. One column had red albarran so x 1 band was applied. Stomach: Patchy gastric erythema and mosaic pattern consistent with portal hypertensive gastropathy. Grade 2 flap valve on retroflexed examination of the cardia. Duodenum: Normal bulb and descending duodenum, Intervention: Banding of variceal column Impression/Findings: esophageal varices portal hypertensive gastropathy PLAN: holding beta purvi due to asthma will send PPI and carafate for 2 weeks to prevent ulceration and bleeding repeat EGD in 2-4 weeks can do colonoscopy same after following prep instructions properly repeat imaging soon to r/o PVT, liver lesions, if MELD > 15 on next labs then refer for transplant eval
[2021-08-21 13:00] VITALS: BP 108/60; PULSE 107; RESP 16; TEMP 37.4; O2SAT 95
[2021-08-21 13:15] VITALS: BP 109/70; PULSE 108; RESP 16; TEMP 37.2; O2SAT 94
--- NOTE | 2021-08-21 13:15 | PC.NURSE ---
MD HUDSON AND EDGE PLUGGER BY BEDSIDE EVAL PATIENT.
[2021-08-21 13:30] LABS: Glucose, Whole Blood 214 mg/dL (60-115)
--- NOTE | 2021-08-21 13:31 | PC.NURSE ---
IV REMOVED RIGHT WRIST
[2021-08-21] MEDS: Lactated Ringers 1,000 ML 100 ML IVCONT (13:32)
== END 2021-08-21 14:28 | disposition home or self-care (01) ==
PROVIDERS: Nurse Practitioner; PCP Family Medicine; Visit Provider Internal Medicine Gastroenterology
PROC: (CPT 43205; principal; 2021-08-21 12:00)
DX: K74.60 Unspecified cirrhosis of liver (principal); K75.81 Nonalcoholic steatohepatitis (NASH); I85.00 Esophageal varices without bleeding; K76.6 Portal hypertension; K31.89 Other diseases of stomach and duodenum; K44.9 Diaphragmatic hernia without obstruction or gangrene
CPT/HCPCS: 43205; 36415; 80048; 81025; 82947; 85027; J2250

== ENCOUNTER 2021-09-24 10:00 | Day surgery (SDC) | payer MEDICAID, SELFPAY ==
[2021-09-18 14:50] VITALS: BMI 42.8
--- NOTE | 2021-09-23 08:25 | HO.ANESPROP2 ---
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 (Acute) Numbness and tingling in both hands (Acute) Non-toxic multinodular goiter (Acute) Diabetic nephropathy associated with type 2 diabetes mellitus (Acute) Elevated TSH (Acute) Goiter (Acute) Acromegaly (Acute) Morbid obesity (Acute) PCOS (polycystic ovarian syndrome) (Acute) 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 (Acute) Diabetes type 2, uncontrolled (Acute) Past Medical History Medical History Acromegaly Asthma Diabetes type 2, uncontrolled Diabetic nephropathy associated with type 2 diabetes mellitus Dyslipidemia Elevated TSH Goiter HTN (hypertension) 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 Morbid obesity Non-toxic multinodular goiter AMY (obstructive sleep apnea) PCOS (polycystic ovarian syndrome) Family History Family History Father Unknown family medical history Mother Hx of type 1 diabetes mellitus Surgical History Surgical History Hx of colonoscopy Hx of endoscopy Social History Social History (Updated 07/09/21 @ 12:49 by YUNG Dorsey) Household Members: Spouse Alcohol intake: current Alcohol intake frequency: does not drink Patient Tobacco Use Status: Never used Tobacco Are you DNR?: No Advance Directives: No Advance Directives Information Provided: Yes Nutrition Risks: No Nutritional Risk Current occupational status: disabled 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 Meds Allergies Allergy/AdvReac Type Severity Reaction Status Date / Time ibuprofen [From MOTRIN] Allergy Unknown RASH Verified 08/15/21 15:52 penicillin V Allergy Unknown hives Verified 08/15/21 15:52 codeine Allergy Unknown Verified 08/15/21 15:53 Rx- listed on H&P Home Medications Medication Instructions Recorded Confirmed Last Taken Type albuterol sulfate 90 mcg/actuation 2 puff INHALATION Q6H PRN 08/16/20 08/15/21 09/24/21 History aerosol inhaler (ProAir HFA) amitriptyline 50 mg tablet 50 mg PO BEDTIME 08/16/20 08/15/21 Unknown History aspirin 81 mg tablet,delayed 81 mg PO DAILY 08/16/20 08/15/21 Unknown History release (Adult Low Dose Aspirin) blood sugar diagnostic (FreeStyle #10 ea 08/16/20 08/16/20 Unknown History Lite Strips) cholecalciferol (vitamin D3) 50 50 mcg PO DAILY 08/16/20 08/15/21 09/24/21 History mcg (2,000 unit) capsule dicyclomine 10 mg capsule 10 mg PO BID 08/16/20 08/15/21 09/24/21 History fluticasone propionate 220 2 puff INHALATION BID 08/16/20 08/15/21 Unknown History mcg/actuation HFA aerosol inhaler (Flovent HFA) ipratropium 0.5 mg-albuterol 3 mg 3 ml INHALATION Q6-8H PRN 08/16/20 08/15/21 Unknown History (2.5 mg base)/3 mL nebulization soln lancets 28 gauge (FreeStyle #100 ea 08/16/20 08/16/20 Unknown History Lancets) loratadine 10 mg capsule 10 mg PO DAILY 08/16/20 08/15/21 09/24/21 History metformin 500 mg tablet 500 mg PO BID 08/16/20 08/15/21 09/24/21 History montelukast 10 mg tablet 10 mg PO BEDTIME 08/16/20 08/15/21 Unknown History (Singulair) ondansetron HCl 4 mg tablet 4 mg PO Q8H 08/16/20 08/16/20 Unknown History (Zofran) ranitidine HCl 150 mg tablet mg PO DAILY tab 08/16/20 08/16/20 09/24/21 History spironolactone 50 mg tablet 50 mg PO DAILY 08/16/20 08/15/21 09/24/21 History dulaglutide 0.75 mg/0.5 mL mg SUBCUT QWEEK 08/15/21 08/15/21 Unknown History subcutaneous pen injector (Trulicity) lisinopril 2.5 mg tablet 1 tab PO DAILY 08/15/21 08/15/21 09/24/21 History Exam Exam Date and Time: September 23, 2021 0825 Height,Weight and Vital Signs: Height 5 ft 3 in Weight 109.769 kg Pertinent Lab Results Pertinent Lab Results: Laboratory Tests 08/21/21 08/21/21 11:07 11:07 WBC 5.6 Hgb 12.3 Hct 38.6 Plt Count 76 L Sodium 133 L Potassium 3.9 Chloride 99 Carbon Dioxide 28 BUN 3 L Creatinine 0.74 Assessment and Plan Assessment Anesthesia Assessment: Chart Reviewed Documented by User: Michelle Short MD 09/24/21 10:38 PMFSH Past Medical History Medical History Acromegaly Asthma Diabetes type 2, uncontrolled Diabetic nephropathy associated with type 2 diabetes mellitus Dyslipidemia Elevated TSH Goiter HTN (hypertension) 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 Morbid obesity Non-toxic multinodular goiter AMY (obstructive sleep apnea) PCOS (polycystic ovarian syndrome) Family History Family History Father Unknown family medical history Mother Hx of type 1 diabetes mellitus Surgical History Surgical History Hx of colonoscopy Hx of endoscopy History of Problems with Anesthesia: No Social History Social History (Updated 07/09/21 @ 12:49 by YUNG Dorsey) Household Members: Spouse Alcohol intake: current Alcohol intake frequency: does not drink Patient Tobacco Use Status: Never used Tobacco Are you DNR?: No Advance Directives: No Advance Directives Information Provided: Yes Nutrition Risks: No Nutritional Risk Current occupational status: disabled 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 Meds Allergies Allergy/AdvReac Type Severity Reaction Status Date / Time ibuprofen [From MOTRIN] Allergy Unknown RASH Verified 08/15/21 15:52 penicillin V Allergy Unknown hives Verified 08/15/21 15:52 codeine Allergy Unknown Verified 08/15/21 15:53 Rx- listed on H&P Home Medications Medication Instructions Recorded Confirmed Last Taken Type albuterol sulfate 90 mcg/actuation 2 puff INHALATION Q6H PRN 08/16/20 08/15/21 09/24/21 History aerosol inhaler (ProAir HFA) amitriptyline 50 mg tablet 50 mg PO BEDTIME 08/16/20 08/15/21 Unknown History aspirin 81 mg tablet,delayed 81 mg PO DAILY 08/16/20 08/15/21 Unknown History release (Adult Low Dose Aspirin) blood sugar diagnostic (FreeStyle #10 ea 08/16/20 08/16/20 Unknown History Lite Strips) cholecalciferol (vitamin D3) 50 50 mcg PO DAILY 08/16/20 08/15/21 09/24/21 History mcg (2,000 unit) capsule dicyclomine 10 mg capsule 10 mg PO BID 08/16/20 08/15/21 09/24/21 History fluticasone propionate 220 2 puff INHALATION BID 08/16/20 08/15/21 Unknown History mcg/actuation HFA aerosol inhaler (Flovent HFA) ipratropium 0.5 mg-albuterol 3 mg 3 ml INHALATION Q6-8H PRN 08/16/20 08/15/21 Unknown History (2.5 mg base)/3 mL nebulization soln lancets 28 gauge (FreeStyle #100 ea 08/16/20 08/16/20 Unknown History Lancets) loratadine 10 mg capsule 10 mg PO DAILY 08/16/20 08/15/21 09/24/21 History metformin 500 mg tablet 500 mg PO BID 08/16/20 08/15/21 09/24/21 History montelukast 10 mg tablet 10 mg PO BEDTIME 08/16/20 08/15/21 Unknown History (Singulair) ondansetron HCl 4 mg tablet 4 mg PO Q8H 08/16/20 08/16/20 Unknown History (Zofran) ranitidine HCl 150 mg tablet mg PO DAILY tab 08/16/20 08/16/20 09/24/21 History spironolactone 50 mg tablet 50 mg PO DAILY 08/16/20 08/15/21 09/24/21 History dulaglutide 0.75 mg/0.5 mL mg SUBCUT QWEEK 08/15/21 08/15/21 Unknown History subcutaneous pen injector (Trulicity) lisinopril 2.5 mg tablet 1 tab PO DAILY 08/15/21 08/15/21 09/24/21 History Exam Airway Mallampati Class: II (Edentulous) TM Dist: >3cm Neck ROM: Full Loose/Missing/Broken Teeth: Yes, Upper and Lower Heart: RRR Lungs: CTA Assessment and Plan Assessment Anesthesia Assessment: Anesthesia Plan Discussed Final Anesthetic Review History of Problems with Anesthesia: No NPO: Yes ASA Class: III Final Preanesthetic Review: Meds/Allgs Chart Reviewed, Consent Obtained/Reviewed and Anes Risks/Benef Reviewed Patient Risk: Intermediate Procedure Risk: Intermediate Anesthetic Plan Anesthetic Plan: MAC: Disposition: Standard PACU
[2021-09-24 10:18] VITALS: PULSE 92; RESP 18; TEMP 36.1; O2SAT 100
--- NOTE | 2021-09-24 10:19 | P.HPSUR_ITS ---
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 Morbid obesity Non-toxic multinodular goiter AMY (obstructive sleep apnea) PCOS (polycystic ovarian syn) History of Previous Operations: Relevant previous surgery/procedure and date(s) (Hx of colonoscopy Hx of endoscopy) Allergies: Allergies Allergy/AdvReac Type Severity Reaction Status Date / Time ibuprofen [From MOTRIN] Allergy Unknown RASH Verified 08/15/21 15:52 penicillin V Allergy Unknown hives Verified 08/15/21 15:52 codeine Allergy Unknown Verified 08/15/21 15:53 Rx- listed on H&P Review of Systems Sugical H&P ROS: Negative: Constitution, Cardiovascular, Respiratory, Neurological, Psychiatric, Hem-Onc, Allergic/Immunologic, Gastrointestinal, Genitourinary, Musculoskeletal, Integumentary, Endocrine and Eyes/Ears/Nose/Throat Exam Surgical H&P Exam: Normal: HEENT, Normal: Heart, Normal: Lungs, Normal: Extremities, Normal: Abdomen, Normal: Skin and Normal: Neurological Plan Diagnosis/Plan: Unchanged I have reviewed the history and physical and performed a pertinent physical examination on my patient. No changes have occurred unless specified.
--- NOTE | 2021-09-24 10:20 | P.BOP_ITS ---
Brief Operative Note Date of Service: 09/24/21 Pre-op diagnosis: variceal screening Post-op diagnosis: same Procedure: see op note Surgeon: Sergei Verma MD Anesthesia: MAC Was an Resource Conservation Specialist used for this Procedure?: No Estimated blood loss (mL): 0 Condition: stable Disposition: PACU
--- NOTE | 2021-09-24 10:20 | W.PM.OPN ---
Operative Note Operative Note Date of Service: 09/24/21 Narrative: Procedure Description: EGD Indication: variceal screening Anesthesia: MAC FLEXIBLE TRANSORAL UPPER GASTROINTESTINAL ENDOSCOPY UPPER ENDOSCOPY Consent: Indications for the procedure and potential complications of bleeding, perforation, reaction to medications and missed diagnosis were discussed with the patient and informed consent was obtained. Instrument: Olympus GIF H 190 J mid size upper endoscope Monitoring: Vital signs and clinical assessment, continuous EKG monitoring, Pulse oximetry, Carbon Dioxide monitoring and blood pressure monitoring were done throughout the procedure. Procedure: The patient was placed in the left lateral decubitis position and pre-procedure medications were administered and a bite block was placed. The endoscope was inserted into the mouth and advanced under direct vision to the third part of duodenum. A careful inspection was made as the upper endoscope was withdrawn including a retroflexed examination of the proximal stomach; Findings and interventions are described below. Findings: Larynx:normal Esophagus: GE junction at 38? cm, diaphragm hiatus at 38 cm, x 1 cord of grade II varices with x 3 bands applied and one cord of grade I varices. ? Stomach: Patchy gastric erythema and mosaic pattern consistent with portal hypertensive gastropathy. Grade 2 flap valve on retroflexed examination of the cardia. Duodenum: Normal bulb and descending duodenum, Intervention: Banding of variceal column Impression/Findings: esophageal varices portal hypertensive gastropathy PLAN: will send PPI and carafate for 2 weeks to prevent ulceration and bleeding repeat EGD in 2-4 weeks can do colonoscopy same after following prep instructions properly, did not get the prep I sent her for today
--- NOTE | 2021-09-24 10:28 | PC.NURSE ---
b/l chronic leg edema and bs 290 anesthesia aware
[2021-09-24 10:29] LABS: Glucose, Whole Blood 290 mg/dL (60-115)
[2021-09-24] MEDS: Lactated Ringers 1,000 ML 100 ML IVCONT (10:37)
[2021-09-24 10:41] LABS: UPreg QC Valid YES
[2021-09-24 10:43] LABS: Urine Pregnancy NEGATIVE (NEGATIVE)
[2021-09-24 11:22] VITALS: BP 153/88; PULSE 96; RESP 16; TEMP 36.6; O2SAT 96
[2021-09-24 11:37] VITALS: BP 145/86; PULSE 91; RESP 16; O2SAT 94
[2021-09-24 11:52] VITALS: BP 149/79; PULSE 90; RESP 16; O2SAT 93
== END 2021-09-24 12:30 | disposition home or self-care (01) ==
PROVIDERS: Nurse Practitioner; PCP Family Medicine; Visit Provider Internal Medicine Gastroenterology
PROC: 0DJ08ZZ Inspection of Upper Intestinal Tract, Via Natural or Artificial Opening Endoscopic (ICD-10-PCS; CPT 43235; principal; 2021-09-24 11:30)
DX: I85.00 Esophageal varices without bleeding (principal); K76.6 Portal hypertension; K31.89 Other diseases of stomach and duodenum; K44.9 Diaphragmatic hernia without obstruction or gangrene; K75.81 Nonalcoholic steatohepatitis (NASH); K74.60 Unspecified cirrhosis of liver; E04.2 Nontoxic multinodular goiter; E28.2 Polycystic ovarian syndrome; E22.0 Acromegaly and pituitary gigantism; E66.01 Morbid (severe) obesity due to excess calories; Z68.41 Body mass index [BMI] 40.0-44.9, adult; E11.21 Type 2 diabetes mellitus with diabetic nephropathy; Z79.4 Long term (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 insulin; Z88.0 Allergy status to penicillin; Z88.8 Allergy status to other drugs, medicaments and biological substances
CPT/HCPCS: 43244; 81025; 82947; J2250

== ENCOUNTER 2021-10-08 10:57 | Day surgery (SDC) | payer MEDICAID, SELFPAY ==
--- NOTE | 2021-10-07 10:34 | P.CONAN_ITS ---
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 (Acute) Diabetes type 2, uncontrolled (Acute) Past Medical History Medical History Asthma Dyslipidemia HTN (hypertension) AMY (obstructive sleep apnea) Family History Family History Father Unknown family medical history Mother Hx of type 1 diabetes mellitus Surgical History Surgical History Hx of colonoscopy Hx of endoscopy History of Problems with Anesthesia: No Social History Social History (Updated 07/09/21 @ 12:49 by YUNG Dorsey) Household Members: Spouse Alcohol intake: current Alcohol intake frequency: holidays/special occasions only Patient Tobacco Use Status: Former Tobacco user Quit Date: 7 yrs ago Use of substances other than those prescribed or required for medical reasons: Yes Substance Use Frequency: Daily Are you DNR?: No Advance Directives: No Advance Directives Information Provided: Yes Current occupational status: disabled 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 Meds Allergies Allergy/AdvReac Type Severity Reaction Status Date / Time ibuprofen [From MOTRIN] Allergy Unknown RASH Verified 10/08/21 11:04 penicillin V Allergy Unknown hives Verified 10/08/21 11:04 codeine Allergy Unknown Verified 10/08/21 11:04 Rx- listed on H&P Home Medications Medication Instructions Recorded Confirmed Last Taken Type albuterol sulfate 90 mcg/actuation 2 puff inhalation Q6H PRN Wheezing 08/16/20 08/15/21 09/24/21 History aerosol inhaler (ProAir HFA) amitriptyline 50 mg tablet 50 mg PO BEDTIME 08/16/20 08/15/21 Unknown History aspirin 81 mg tablet,delayed 81 mg PO DAILY 08/16/20 08/15/21 Unknown History release (Adult Low Dose Aspirin) blood sugar diagnostic (FreeStyle #10 ea 08/16/20 08/16/20 Unknown History Lite Strips) cholecalciferol (vitamin D3) 50 50 mcg PO DAILY 08/16/20 08/15/21 09/24/21 History mcg (2,000 unit) capsule dicyclomine 10 mg capsule 10 mg PO BID 08/16/20 08/15/21 09/24/21 History fluticasone propionate 220 2 puff inhalation BID 08/16/20 08/15/21 Unknown History mcg/actuation HFA aerosol inhaler (Flovent HFA) ipratropium 0.5 mg-albuterol 3 mg 3 ml inhalation Q6-8H PRN Wheezing 08/16/20 08/15/21 Unknown History (2.5 mg base)/3 mL nebulization soln lancets 28 gauge (FreeStyle #100 ea 08/16/20 08/16/20 Unknown History Lancets) loratadine 10 mg capsule 10 mg PO DAILY 08/16/20 08/15/21 09/24/21 History metformin 500 mg tablet 500 mg PO BID 08/16/20 08/15/21 09/24/21 History montelukast 10 mg tablet 10 mg PO BEDTIME 08/16/20 08/15/21 Unknown History (Singulair) ondansetron HCl 4 mg tablet 4 mg PO Q8H 08/16/20 08/16/20 Unknown History (Zofran) ranitidine HCl 150 mg tablet mg PO DAILY 08/16/20 08/16/20 09/24/21 History spironolactone 50 mg tablet 50 mg PO DAILY 08/16/20 08/15/21 09/24/21 History dulaglutide 0.75 mg/0.5 mL mg subcut QWEEK 08/15/21 08/15/21 Unknown History subcutaneous pen injector (Trulicity) lisinopril 2.5 mg tablet 1 tab PO DAILY 08/15/21 08/15/21 09/24/21 History Exam Exam Date and Time: October 07, 2021 1034 Height,Weight and Vital Signs: Height 5 ft 3 in Weight 109.769 kg Pertinent Lab Results Pertinent Lab Results: Laboratory Tests 08/21/21 08/21/21 11:07 11:07 WBC 5.6 Hgb 12.3 Hct 38.6 Plt Count 76 L Sodium 133 L Potassium 3.9 Chloride 99 Carbon Dioxide 28 BUN 3 L Creatinine 0.74 Airway Mallampati Class: II (Edentulous) TM Dist: >3cm Neck ROM: Full Loose/Missing/Broken Teeth: Yes, Upper and Lower Assessment and Plan Assessment Anesthesia Assessment: Chart Reviewed Final Anesthetic Review History of Problems with Anesthesia: No
[2021-10-08 11:05] VITALS: BMI 44.4
[2021-10-08 11:19] LABS: Glucose, Whole Blood 270 mg/dL (60-115)
--- NOTE | 2021-10-08 11:24 | MHC.SHP ---
Pre-Procedural Eval Section A Date of Service: 10/08/21 The patient is an INPATIENT: No The History & Physical has been completed within 30 days and I have reviewed it.: No Section B Chief Complaint: Screening, cirrhosis of liver,SERVIN,esophageal vari Details of Present Illness: Colon cancer screening, cirrhosis follow-up of esophageal varices Relevant Family History (Specify if Yes): No Relevant Social History: Other (specify) (smokes Marijuana) Present Medications: see Short Stay Collaborative assessment Medical History: Significant History (Acromegaly Diabetes type 2, uncontrolled Diabetic nephropathy associated with type 2 diabetes mellitus Elevated TSH Goiter assisted (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 insulin Morbid obesity Non-toxic multinodular goiter PCOS (polycystic ovarian syndrome)) History of Previous Operations: Relevant previous surgery/procedure and date(s) (History of upper endoscopy and colonoscopy) Allergies: Allergies Allergy/AdvReac Type Severity Reaction Status Date / Time ibuprofen [From MOTRIN] Allergy Unknown RASH Verified 10/08/21 11:04 penicillin V Allergy Unknown hives Verified 10/08/21 11:04 codeine Allergy Unknown Verified 10/08/21 11:04 Rx- listed on H&P Review of Systems Sugical H&P ROS: Negative: Constitution, Cardiovascular, Respiratory and Gastrointestinal Exam Surgical H&P Exam: Normal: Heart, Normal: Lungs, Normal: Extremities and Normal: Abdomen Plan Diagnosis/Plan: Change (proceed with EGD (FU of varices) and colonoscopy) I have reviewed the history and physical and performed a pertinent physical examination on my patient. No changes have occurred unless specified.
--- NOTE | 2021-10-08 11:26 | PM.OP ---
Brief Operative Note Date of Service: 10/08/21 Pre-op diagnosis: Colon cancer screen, cirrhosis follow-up of esophageal varices Post-op diagnosis: other (diverticulosis, hemorrhoids, esophageal ulcer, small gastric varix, portal gastropathy) Procedure: FLEXIBLE TRANSORAL UPPER GASTROINTESTINAL ENDOSCOPY AND COLONOSCOPY TILL CECUM WITH BIOPSIES UPPER ENDOSCOPY Consent: Indications for the procedure and potential complications of bleeding, perforation, reaction to medications and missed diagnosis were discussed with the patient and informed consent was obtained. Instrument: Olympus GIF H 190 mid size upper endoscope Monitoring: Vital signs and clinical assessment, continuous EKG monitoring, Pulse oximetry, Carbon Dioxide monitoring and blood pressure monitoring were done throughout the procedure. Procedure: The patient was placed in the left lateral decubitis position and pre-procedure medications were administered and a bite block was placed. The endoscope was inserted into the mouth and advanced under direct vision to the third part of duodenum. A careful inspection was made as the upper endoscope was withdrawn including a retroflexed examination of the proximal stomach; Findings and interventions are described below. Findings: Larynx: Normal Esophagus: GE junction at 38 cms. A 1.5 cms non-bleeding ulcer with yellow exudate just above the GE junction - likely related to recent band ligation. Single grade 1 varix in the distal esophagus which flattened completely on air insufflation Stomach: Moderate portal gastropathy. No gastric varices and grade 2 flap valve on retroflexed examination of the cardia. Duodenum: Normal bulb and descending duodenum Intervention: Biopsies as noted above COLONOSCOPY PROCEDURE NOTE Consent: Indications for the procedure and potential complications of bleeding, perforation, reaction to medications and missed diagnosis were discussed with the patient and informed consent was obtained. Instrument: Olympus PCF H 190 L variable stiffness pediatric colonoscope Monitoring: Vital signs and clinical assessment, intermittent blood pressure monitoring, continuous EKG monitoring, Pulse oximetry and Carbon Dioxide monitoring were done throughout the procedure. Colon withdrawl time was 23 minutes. Procedure: The patient was placed in the left lateral decubitis position and pre-procedure medications were administered. After a digital rectal examination of the ano-rectum, the video colonoscope was inserted into the rectum and advanced through the colon to the cecum. The colonoscope was slowly withdrawn in a retrograde panoramic fashion and the colon mucosa was carefully examined including a retroflexed view of the rectum. Findings and interventions are described below. Procedure Difficulty: : Without difficulty Findings: Terminal Ileum: Not evaluated Cecum: Friable and edematous mucosa throughout the colon without ulcers Ascending Colon: Friable and edematous mucosa throughout the colon without ulcers - random biopsies were obtained from the right colon Transverse Colon: Friable and edematous mucosa throughout the colon without ulcers Descending Colon: Friable and edematous mucosa throughout the colon without ulcers. Moderate diverticulosis Sigmoid Colon: Moderate diverticulosis Rectum: Normal Ano-rectum: Moderate internal hemorrhoids Colon preparation: Fair despite copious irrigation due to semi-solid stool thoughout the colon Impression and Post Procedure Diagnosis: Endoscopy Findings: ESOPHAGUS: A 1.5 cms non-bleeding ulcer with yellow exudate just above the GE junction - likely related to recent band ligation. Single grade 1 varix in the distal esophagus which flattened completely on air insufflation STOMACH: Moderate portal gastropathy without bleeding. Colonoscopy Findings: No polyps were detected. Friable and edematous mucosa throughout the colon without ulcers - likely related to hypoalbuminemia and due to cirrhosis - random biopsies were obtained from the right colon Moderate diverticulosis seen in the left colon Moderate hemorrhoids on retroflexed exam. Plan: Await pathology results Patient has an appointment on 11/04/21 in the [facility] with Dr Verma. Repeat EGD in 6 to 12 months and repeat colonoscopy in 1-2 years due to fair prep. Above findings were reviewed with the patient diverticulosis handouts were given in the discharge area Surgeon: Yarelis Quiroga MD Anesthesia: MAC (Dr Perry) Was an Film Cleaner used for this Procedure?: Yes Film Cleaner: Kathi Jaquez Estimated blood loss (mL): 0 Pathology: other (A. right colon bxs, R/O IBD) Condition: stable Disposition: PACU
[2021-10-08 11:27] LABS: UPreg QC Valid YES; Urine Pregnancy NEGATIVE (NEGATIVE)
--- NOTE | 2021-10-08 11:27 | HO.ANESPROP2 ---
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) Diabetes type 2, uncontrolled (Acute) Past Medical History Medical History Asthma Dyslipidemia HTN (hypertension) AMY (obstructive sleep apnea) Family History Family History Father Unknown family medical history Mother Hx of type 1 diabetes mellitus Family history of problems with anesthesia: No Surgical History Surgical History Hx of colonoscopy Hx of endoscopy History of Problems with Anesthesia: No Social History Social History (Updated 07/09/21 @ 12:49 by YUNG Dorsey) Household Members: Spouse Alcohol intake: current Alcohol intake frequency: holidays/special occasions only Patient Tobacco Use Status: Former Tobacco user Quit Date: 7 yrs ago Use of substances other than those prescribed or required for medical reasons: Yes Substance Use Frequency: Daily Are you DNR?: No Advance Directives: No Advance Directives Information Provided: Yes Current occupational status: disabled 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 Meds Allergies Allergy/AdvReac Type Severity Reaction Status Date / Time ibuprofen [From MOTRIN] Allergy Unknown RASH Verified 10/08/21 11:04 penicillin V Allergy Unknown hives Verified 10/08/21 11:04 codeine Allergy Unknown Verified 10/08/21 11:04 Rx- listed on H&P Active Medications: Current Medications Albuterol Sulfate (Albuterol Sulfate (0.083%) 2.5 Mg/3 Ml Vial.Neb) 2.5 mg INHALE ONCE PRN PRN Reason: Shortness of Breath/Wheezing Lactated Ringer's (Lr) 1,000 mls @ 100 mls/hr IVCONT .Q10H NIMO Ondansetron HCl (Ondansetron Hcl 4 Mg/2 Ml Vial) 4 mg IVPUSH ONCE PRN PRN Reason: Nausea and Vomiting Home Medications Medication Instructions Recorded Confirmed Last Taken Type albuterol sulfate 90 mcg/actuation 2 puff inhalation Q6H PRN Wheezing 08/16/20 08/15/21 09/24/21 History aerosol inhaler (ProAir HFA) amitriptyline 50 mg tablet 50 mg PO BEDTIME 08/16/20 08/15/21 Unknown History aspirin 81 mg tablet,delayed 81 mg PO DAILY 08/16/20 08/15/21 Unknown History release (Adult Low Dose Aspirin) blood sugar diagnostic (FreeStyle #10 ea 08/16/20 08/16/20 Unknown History Lite Strips) cholecalciferol (vitamin D3) 50 50 mcg PO DAILY 08/16/20 08/15/21 09/24/21 History mcg (2,000 unit) capsule dicyclomine 10 mg capsule 10 mg PO BID 08/16/20 08/15/21 09/24/21 History fluticasone propionate 220 2 puff inhalation BID 08/16/20 08/15/21 Unknown History mcg/actuation HFA aerosol inhaler (Flovent HFA) ipratropium 0.5 mg-albuterol 3 mg 3 ml inhalation Q6-8H PRN Wheezing 08/16/20 08/15/21 Unknown History (2.5 mg base)/3 mL nebulization soln lancets 28 gauge (FreeStyle #100 ea 08/16/20 08/16/20 Unknown History Lancets) loratadine 10 mg capsule 10 mg PO DAILY 08/16/20 08/15/21 09/24/21 History metformin 500 mg tablet 500 mg PO BID 08/16/20 08/15/21 09/24/21 History montelukast 10 mg tablet 10 mg PO BEDTIME 08/16/20 08/15/21 Unknown History (Singulair) ondansetron HCl 4 mg tablet 4 mg PO Q8H 08/16/20 08/16/20 Unknown History (Zofran) ranitidine HCl 150 mg tablet mg PO DAILY 08/16/20 08/16/20 09/24/21 History spironolactone 50 mg tablet 50 mg PO DAILY 08/16/20 08/15/21 09/24/21 History dulaglutide 0.75 mg/0.5 mL mg subcut QWEEK 08/15/21 08/15/21 Unknown History subcutaneous pen injector (Trulicity) lisinopril 2.5 mg tablet 1 tab PO DAILY 08/15/21 08/15/21 09/24/21 History Exam Exam Date and Time: October 08, 2021 1128 Height,Weight and Vital Signs: Height 5 ft 3 in Weight 113.852 kg Pertinent Lab Results Pertinent Lab Results: Laboratory Tests 10/08/21 10/08/21 11:13 11:15 POC Glucose 270 H Urine Test NEGATIVE Airway Mallampati Class: IV TM Dist: >3cm Denture: Upper and Lower Heart: rrr Lungs: clear Assessment and Plan Final Anesthetic Review Family History of Problems with Anesthesia: No History of Problems with Anesthesia: No Anesthetic Plan Anesthetic Plan: MAC: Disposition: Standard PACU
[2021-10-08 11:30] VITALS: BP 134/74; PULSE 88; RESP 16; TEMP 36.4; O2SAT 98
--- NOTE | 2021-10-08 11:34 | HO.ANESPROP2 ---
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) Diabetes type 2, uncontrolled (Acute) Past Medical History Medical History Asthma Dyslipidemia HTN (hypertension) AMY (obstructive sleep apnea) Family History Family History Father Unknown family medical history Mother Hx of type 1 diabetes mellitus Family history of problems with anesthesia: No Surgical History Surgical History Hx of colonoscopy Hx of endoscopy History of Problems with Anesthesia: No Social History Social History (Updated 07/09/21 @ 12:49 by YUNG Dorsey) Household Members: Spouse Alcohol intake: current Alcohol intake frequency: holidays/special occasions only Patient Tobacco Use Status: Former Tobacco user Quit Date: 7 yrs ago Use of substances other than those prescribed or required for medical reasons: Yes Substance Use Frequency: Daily Are you DNR?: No Advance Directives: No Advance Directives Information Provided: Yes Current occupational status: disabled 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 Meds Allergies Allergy/AdvReac Type Severity Reaction Status Date / Time ibuprofen [From MOTRIN] Allergy Unknown RASH Verified 10/08/21 11:04 penicillin V Allergy Unknown hives Verified 10/08/21 11:04 codeine Allergy Unknown Verified 10/08/21 11:04 Rx- listed on H&P Active Medications: Current Medications Albuterol Sulfate (Albuterol Sulfate (0.083%) 2.5 Mg/3 Ml Vial.Neb) 2.5 mg INHALE ONCE PRN PRN Reason: Shortness of Breath/Wheezing Lactated Ringer's (Lr) 1,000 mls @ 100 mls/hr IVCONT .Q10H NIMO Ondansetron HCl (Ondansetron Hcl 4 Mg/2 Ml Vial) 4 mg IVPUSH ONCE PRN PRN Reason: Nausea and Vomiting Home Medications Medication Instructions Recorded Confirmed Last Taken Type albuterol sulfate 90 mcg/actuation 2 puff inhalation Q6H PRN Wheezing 08/16/20 08/15/21 09/24/21 History aerosol inhaler (ProAir HFA) amitriptyline 50 mg tablet 50 mg PO BEDTIME 08/16/20 08/15/21 Unknown History aspirin 81 mg tablet,delayed 81 mg PO DAILY 08/16/20 08/15/21 Unknown History release (Adult Low Dose Aspirin) blood sugar diagnostic (FreeStyle #10 ea 08/16/20 08/16/20 Unknown History Lite Strips) cholecalciferol (vitamin D3) 50 50 mcg PO DAILY 08/16/20 08/15/21 09/24/21 History mcg (2,000 unit) capsule dicyclomine 10 mg capsule 10 mg PO BID 08/16/20 08/15/21 09/24/21 History fluticasone propionate 220 2 puff inhalation BID 08/16/20 08/15/21 Unknown History mcg/actuation HFA aerosol inhaler (Flovent HFA) ipratropium 0.5 mg-albuterol 3 mg 3 ml inhalation Q6-8H PRN Wheezing 08/16/20 08/15/21 Unknown History (2.5 mg base)/3 mL nebulization soln lancets 28 gauge (FreeStyle #100 ea 08/16/20 08/16/20 Unknown History Lancets) loratadine 10 mg capsule 10 mg PO DAILY 08/16/20 08/15/21 09/24/21 History metformin 500 mg tablet 500 mg PO BID 08/16/20 08/15/21 09/24/21 History montelukast 10 mg tablet 10 mg PO BEDTIME 08/16/20 08/15/21 Unknown History (Singulair) ondansetron HCl 4 mg tablet 4 mg PO Q8H 08/16/20 08/16/20 Unknown History (Zofran) ranitidine HCl 150 mg tablet mg PO DAILY 08/16/20 08/16/20 09/24/21 History spironolactone 50 mg tablet 50 mg PO DAILY 08/16/20 08/15/21 09/24/21 History dulaglutide 0.75 mg/0.5 mL mg subcut QWEEK 08/15/21 08/15/21 Unknown History subcutaneous pen injector (Trulicity) lisinopril 2.5 mg tablet 1 tab PO DAILY 08/15/21 08/15/21 09/24/21 History Exam Exam Date and Time: October 08, 2021 1134 Height,Weight and Vital Signs: Height 5 ft 3 in Weight 113.852 kg Last Vital Signs Temp 97.5 F 10/08/21 11:30 Pulse 88 10/08/21 11:30 Resp 16 10/08/21 11:30 BP 134/74 10/08/21 11:30 Pulse Ox 98 10/08/21 11:30 O2 Del Method 10/08/21 11:30 Pertinent Lab Results Pertinent Lab Results: Laboratory Tests 10/08/21 10/08/21 11:13 11:15 POC Glucose 270 H Urine Test NEGATIVE Assessment and Plan Final Anesthetic Review Family History of Problems with Anesthesia: No History of Problems with Anesthesia: No ASA Class: III Patient Risk: High Procedure Risk: Low Anesthetic Plan Anesthetic Plan: MAC: Disposition: Standard PACU
--- NOTE | 2021-10-08 11:36 | W.PM.OPN ---
Operative Note Operative Note Date of Service: 10/08/21 Narrative: Pre-op diagnosis: Colon cancer screen, cirrhosis follow-up of esophageal varices Post-op diagnosis:?other (diverticulosis, hemorrhoids, esophageal ulcer, small gastric varix, portal gastropathy) Procedure: FLEXIBLE TRANSORAL UPPER GASTROINTESTINAL ENDOSCOPY AND COLONOSCOPY TILL CECUM WITH BIOPSIES UPPER ENDOSCOPY Consent:?Indications for the procedure and potential complications of bleeding, perforation, reaction to medications and missed diagnosis were discussed with the patient and informed consent was obtained. Instrument:?Olympus GIF H 190 mid size upper endoscope Monitoring: Vital signs and clinical assessment, continuous EKG monitoring, Pulse oximetry, Carbon Dioxide monitoring and blood pressure monitoring were done throughout the procedure. Procedure:?The patient was placed in the left lateral decubitis position and pre-procedure medications were administered and a bite block was placed. The endoscope was inserted into the mouth and advanced under direct vision to the third part of duodenum. A careful inspection was made as the upper endoscope was withdrawn including a retroflexed examination of the proximal stomach; Findings and interventions are described below. Findings: Larynx:? Normal Esophagus:?GE junction at 38 cms. A 1.5 cms non-bleeding ulcer with yellow exudate just above the GE junction - likely related to recent band ligation. Single grade 1 varix in the distal esophagus which flattened completely on air insufflation Stomach:? Moderate portal gastropathy. No gastric varices and grade 2 flap valve on retroflexed examination of the cardia. Duodenum:?Normal bulb and descending duodenum Intervention:?Biopsies as noted above COLONOSCOPY PROCEDURE NOTE Consent:?Indications for the procedure and potential complications of bleeding, perforation, reaction to medications and missed diagnosis were discussed with the patient and informed consent was obtained. Instrument:?Olympus PCF H 190 L variable stiffness pediatric colonoscope Monitoring:?Vital signs and clinical assessment, intermittent blood pressure monitoring, continuous EKG monitoring, Pulse oximetry and Carbon Dioxide monitoring were done throughout the procedure. Colon withdrawl time was 23 minutes. Procedure:?The patient was placed in the left lateral decubitis position and pre-procedure medications were administered. After a digital rectal examination of the ano-rectum, the video colonoscope was inserted into the rectum and advanced through the colon to the cecum. The colonoscope was slowly withdrawn in a retrograde panoramic fashion and the colon mucosa was carefully examined including a retroflexed view of the rectum. Findings and interventions are described below. Procedure Difficulty:?: Without difficulty Findings: Terminal Ileum: Not evaluated Cecum:? Friable and edematous mucosa throughout the colon without ulcers Ascending Colon:??Friable and edematous mucosa throughout the colon without ulcers - random biopsies were obtained from the right colon Transverse Colon: ??Friable and edematous mucosa throughout the colon without ulcers Descending Colon:? Friable and edematous mucosa throughout the colon without ulcers.? Moderate diverticulosis Sigmoid Colon:??Moderate diverticulosis Rectum:??Normal Ano-rectum:??Moderate internal hemorrhoids Colon preparation: ? Fair despite copious irrigation due to semi-solid stool thoughout the colon Impression and Post Procedure Diagnosis: Endoscopy Findings: ESOPHAGUS: A 1.5 cms non-bleeding ulcer with yellow exudate just above the GE junction - likely related to recent band ligation.? Single grade 1 varix in the distal esophagus which flattened completely on air insufflation STOMACH:? Moderate portal gastropathy without bleeding. Colonoscopy Findings: No polyps were detected. Friable and edematous mucosa throughout the colon without ulcers - likely related to hypoalbuminemia and due to cirrhosis ?- random biopsies were obtained from the right colon Moderate diverticulosis seen in the left colon Moderate hemorrhoids on retroflexed exam. Plan: Await pathology results Patient has an appointment on 11/04/21 in the [facility] with Dr Verma. Repeat EGD in 6 to 12 months and repeat colonoscopy in 1-2 years due to fair prep. Above findings were reviewed with the patient diverticulosis handouts were given in the discharge area Surgeon: Yarelis Quiroga MD Anesthesia:?MAC (Dr Perry) Was an Gasoline Engine Assembler used for this Procedure?:?Yes Gasoline Engine Assembler:?Kathi Jaquez Estimated blood loss (mL):?0 Pathology:?other (A. right colon bxs, R/O IBD) Condition:?stable Disposition:?PACU
[2021-10-08] MEDS: Lactated Ringers 1,000 ML 100 ML IVCONT (11:41)
[2021-10-08 12:50] VITALS: BP 128/67; PULSE 81; RESP 16; TEMP 36.6; O2SAT 96
[2021-10-08 13:08] VITALS: BP 133/70; PULSE 76; RESP 18; TEMP 36.6; O2SAT 97
== END 2021-10-08 13:45 | disposition home or self-care (01) ==
PROVIDERS: Nurse Practitioner; PCP Family Medicine; Visit Provider Internal Medicine Gastroenterology
PROC: (CPT 45380; principal; 2021-10-08 12:20)
DX: Z12.11 Encounter for screening for malignant neoplasm of colon (principal); K57.30 Diverticulosis of large intestine without perforation or abscess without bleeding; K64.8 Other hemorrhoids; K74.60 Unspecified cirrhosis of liver; K76.6 Portal hypertension; K75.81 Nonalcoholic steatohepatitis (NASH); I85.00 Esophageal varices without bleeding; K22.10 Ulcer of esophagus without bleeding; E22.0 Acromegaly and pituitary gigantism; E66.01 Morbid (severe) obesity due to excess calories; Z68.41 Body mass index [BMI] 40.0-44.9, adult; E11.21 Type 2 diabetes mellitus with diabetic nephropathy; Z79.4 Long term (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 insulin; Z88.0 Allergy status to penicillin; Z88.8 Allergy status to other drugs, medicaments and biological substances; Z87.891 Personal history of nicotine dependence
CPT/HCPCS: 45380; 43235; 81025; 82947; 88305; J2370

== ENCOUNTER 2021-12-25 10:02 | Outpatient (REF) | payer MEDICAID, SELFPAY ==
--- NOTE | ~2021-12-25 | US_ITS ---
EXAMINATION: US ABDOMEN LIMITED WITH LIVER ELASTOGRAPHY CLINICAL INFORMATION: SERVIN COMPARISON: Previous exam most recent March 2021 TECHNIQUE: Real-time imaging of the abdominal viscera. Noninvasive ultrasound liver fibrosis assessment is performed using [employer] ElastPQ point quantification shear wave elastography (2D-SWE) with a C5-2 MHz transducer. Multiple elastography samples are obtained. FINDINGS: PANCREAS: Normal. LIVER: Liver echotexture is very heterogeneous. It is difficult to exclude a small focal lesion. The contour of the liver is scalloped suggestive of cirrhosis. There is no biliary duct dilatation. The right lobe measures 18 cm in length. The left lobe measures 14 cm in length. Portal flow is normal/hepatopedal. The main portal vein is slightly dilated measuring 1.8 cm questionable for portal hypertension. Shear wave liver elastography median stiffness is 1.9 m/s (reference: normal median stiffness is 1.3 m/s or less). IQR/median stiffness to assess sampling precision is 0.11 (reference: good quality data set is IQR/median stiffness of 0.15 or less). GALLBLADDER: The gallbladder is normal in size. There are small gallstones in the gallbladder. Gallbladder wall is thickened. This may be related to liver disease. COMMON BILE DUCT: Normal in caliber measuring 0.4 cm in diameter. RIGHT KIDNEY: Normal. No hydronephrosis. No renal calculi or focal parenchymal lesions. The kidney measures 12.4 cm in maximum dimension. FREE FLUID: There is a small amount of ascites. US/US abdomen guidry w elastography IMPRESSION: 1. Impression: Cirrhotic-appearing liver. Liver echotexture is very heterogeneous and it is difficult to exclude a small focal lesion. Follow-up liver MRI should be considered. Small amount of ascites. Gallstones. 2. Liver elastography: Adequate liver sampling. Increased liver stiffness suggestive of advanced chronic liver disease. REFERENCE: Society of Radiologists in Ultrasound Liver Stiffness Thresholds (2020): LIVER STIFFNESS THRESHOLDS: *Liver Stiffness equal or less than 1.3 m/s: High probability of being normal. *Liver Stiffness less than 1.7 m/s: In the absence of other known clinical signs, rules out compensated advanced chronic liver disease. *Liver Stiffness 1.7-2.1 m/s: Suggestive of compensated advanced chronic liver disease but need further test for confirmation. *Liver Stiffness over 2.1 m/s: Rules in compensated advanced chronic liver disease. *Liver Stiffness over 2.4 m/s: Suggestive of clinically significant portal hypertension. QUALITY OF DATA SET: *IQR/Median value equal or less than 0.15 implies a quality data set. *IQR/Median value over 0.15 implies a poor quality data set. SIGNIFICANT CHANGE FROM PRIOR EXAM: Significant change if liver stiffness measurement is 10% or greater from prior exam. OTHER CONSIDERATIONS: The stage of liver fibrosis may be overestimated in the setting of acute hepatitis, liver inflammation, elevated liver function tests, hepatic vascular congestion, obstructive cholestasis, non-fasting state, and infiltrative diseases such as amyloidosis and lymphoma. In some patients with NAFLD, the liver stiffness thresholds for compensated advanced chronic liver disease may be lower. In causes other than viral hepatitis and NAFLD, liver stiffness thresholds are not well established.
== END 2021-12-25 10:03 | disposition home or self-care (01) ==
LOC: HO.US 10:02
PROVIDERS: Visit Provider Internal Medicine Gastroenterology
DX: K75.81 Nonalcoholic steatohepatitis (NASH) (principal); K74.60 Unspecified cirrhosis of liver
CPT/HCPCS: 76705; 76981

== ENCOUNTER 2022-02-13 17:48 | Emergency (ER) | payer MEDICAID, SELFPAY ==
--- NOTE | ~2022-02-13 | US_ITS ---
EXAMINATION: US ABDOMEN LIMITED CLINICAL INFORMATION: Liver mass. COMPARISON: CT 02/13/2022 TECHNIQUE: Real-time imaging of the liver. FINDINGS: LIVER: The liver is normal in size. There is a nodular liver Contour. Diffuse heterogeneous echogenicity. No focal hepatic lesion. There is no intrahepatic biliary duct dilatation seen. FREE FLUID: Small volume ascites noted. US/US abdomen limited IMPRESSION: Cirrhotic appearance of the liver. No focal liver lesion identified. Small volume ascites.
--- NOTE | ~2022-02-13 | CT_ITS ---
EXAMINATION: CT ABDOMEN AND PELVIS WITH CONTRAST CLINICAL INFORMATION: Abdominal pain COMPARISON: 11/12/2018 TECHNIQUE: Multidetector volumetric images were obtained from the superior aspect of the liver through the pubic symphysis following administration 85 mL of Omnipaque 350 intravenous contrast. Sagittal and coronal reformatted images were obtained on the technologist's workstation. Oral contrast: No This CT examination was performed using dose optimization techniques as appropriate, variously including the following: *Automated exposure control *Adjustment of mA and/or kV according to patient size (this includes techniques or standardized protocols for targeted exams where dose is matched to indication/reason for exam; i.e. extremities or head) *Use of iterative reconstruction technique DLP: 1084 mGy-cm FINDINGS: LUNG BASES: Mild basilar atelectasis LIVER, GALLBLADDER, AND BILIARY TREE: Once again liver is lobular in its contour consistent with cirrhosis. There is some fluid around the liver. Heterogeneous appearance to the liver. Cannot exclude and must consider a mass in the right lobe superior. Gallstones are noted PANCREAS: Unremarkable. SPLEEN: Some fluid surrounding the spleen. Mild splenomegaly. ADRENAL GLANDS: Unremarkable. KIDNEYS AND URETERS: The kidneys are normal in size, shape, and attenuation. No hydronephrosis, hydroureter, or calculi seen. No perinephric stranding. BLADDER: Unremarkable. GASTROINTESTINAL TRACT: Bowel pattern appears nonobstructing. ABDOMINAL WALL: No significant hernia is appreciated. LYMPH NODES: Mild nodes in the portal region is similar to previous. VASCULAR: Unremarkable. PELVIC VISCERA: Unremarkable. OSSEOUS STRUCTURES: Degenerative changes Once again significant disc osteophyte at L4-L5 CT/CT abdomen pelvis w IV con IMPRESSION: The bowel pattern is nonobstructing. There is once again cirrhosis in the liver and moderate splenomegaly with mild ascites now present. The liver is heterogeneous in attenuation. A mass cannot be excluded and must be considered in the region of the dome of the liver. Recommendation is ultrasound and/or MRI for further evaluation. Gallstones noted. Other observations as above Fleischner guidelines were followed.
[2022-02-13 18:22] VITALS: BP 122/57; PULSE 79; RESP 18; TEMP 36; O2SAT 99; BMI 42.5
[2022-02-13 19:55] LABS: Eosinophils Percent Auto 0.5 % (0-4); Hemoglobin 12.7 g/dl (12.0-16.0); Imm Gran Abs Auto 0.02 X10*3/uL (0.00-0.03); Imm Gran Pct Auto 0.3 % (0.0-0.4); MANUAL DIFF FLAG SCAN; PLT CLUMP 1; Red Cell Distribution Width 15.7 % (11.0-16.0); SCAN SMEAR FLAG 1
[2022-02-13 19:57] LABS: Basophils Percent Auto 0.5 % (0-2); Hematocrit 40.7 % (37.0-47.0); Lymphocytes Absolute Auto 0.8 X10*3/uL (1.2-4.9); Lymphocytes Percent Auto 12.1 % (20-40); Mean Corpuscular HGB Conc 31.2 g/dl (31.0-35.0); Mean Corpuscular Hemoglobin 27.4 pg (27.0-33.0); Mean Corpuscular Volume 87.9 fL (80.0-98.0); Mean Platelet Volume 11.2 fL (9.4-12.3); Monocytes Absolute Auto 0.4 X10*3/uL (0.1-1.2); Neutrophils Absolute Auto 4.9 x10*3/uL (2.0-8.3); Neutrophils Percent Auto 79.6 % (45-73); Red Blood Count 4.63 X10*6/uL (4.20-5.50)
[2022-02-13 20:07] LABS: Appearance Urine Hazy; Color Urine DK YELLOW; Glucose Urine UA Negative (Negative); Leukocyte Esterase Urine Negative (Negative); Nitrite Urine Negative (Negative); UMIC TRIGGER UACC YES; Urine Blood Moderate (2+) (Negative); Urine Ketones Trace mg/dL (Negative); Urine Protein Trace mg/dL (Neg-Trace)
[2022-02-13 20:08] LABS: UPreg QC Valid YES; Urine Pregnancy NEGATIVE (NEGATIVE)
[2022-02-13 20:16] LABS: Alanine Aminotransferase 23 U/L (0-31); Albumin Level 3.2 g/dL (3.5-5.0); Alkaline Phosphatase 130 U/L (39-117); Anion Gap 18 (12-20); Aspartate Amino Transferase 56 U/L (5-31); Bilirubin Direct 1.1 mg/dL (0.0-0.5); Bilirubin Total 2.5 mg/dL (0.0-1.0); Blood Urea Nitrogen 8 mg/dL (9-16); Calcium 8.7 mg/dL (8.4-10.2); Carbon Dioxide 24 mmol/L (22-29); Chloride 99 mmol/L (96-108); Creatinine Clr Calc Pharmacy 112.4; Estimated Glomerular Filt Rate > 60; Glucose Random 160 mg/dL (60-115); Lipase 39 U/L (8-78); Potassium 3.5 mmol/L (3.3-5.1); Sodium 137 mmol/L (135-145); Total Protein 8.2 g/dL (6.5-8.0)
[2022-02-13 20:17] LABS: Platelet Count 78 X10*3/uL (160-400); White Blood Count 6.2 X10*3/uL (4.8-10.8)
[2022-02-13 20:18] LABS: SLIDE REVIEW VERIFIED
[2022-02-13 21:02] VITALS: BP 139/60; PULSE 75; RESP 14; TEMP 37.1; O2SAT 96
--- NOTE | 2022-02-13 21:08 | ED.NAVMDI ---
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 intake. Patient states that she had an evaluation by Gastroenterology earlier today and presents for evaluation for worsening abdominal pain. Patient does not report chest pain or pressure, palpitations, melena, hematochezia, fevers or chills. MD elicited complaint: nausea, vomiting and abdominal pain Pertinent past history: other (Crockett, cellulitis) Onset (ago): day(s) (2) Description of vomiting: watery Description of diarrhea: watery Associated nausea: Yes Associated abdominal pain: Yes Location of pain: diffuse and LUQ Pain consistency: constant Severity: severe Pain scale (0-10): 9 Quality: aching and dull Exacerbating factors: eating and vomiting Relieving factors: none Associated symptoms: nausea/vomiting Related Data Home Medications Medication Instructions Recorded Confirmed albuterol sulfate 90 mcg/actuation 2 puff inhalation Q6H PRN Wheezing 08/16/20 08/15/21 aerosol inhaler (ProAir HFA) amitriptyline 50 mg tablet 50 mg PO BEDTIME 08/16/20 08/15/21 aspirin 81 mg tablet,delayed 81 mg PO DAILY 08/16/20 08/15/21 release (Adult Low Dose Aspirin) blood sugar diagnostic (FreeStyle #10 ea 08/16/20 08/16/20 Lite Strips) cholecalciferol (vitamin D3) 50 50 mcg PO DAILY 08/16/20 08/15/21 mcg (2,000 unit) capsule dicyclomine 10 mg capsule 10 mg PO BID 08/16/20 08/15/21 fluticasone propionate 220 2 puff inhalation BID 08/16/20 08/15/21 mcg/actuation HFA aerosol inhaler (Flovent HFA) ipratropium 0.5 mg-albuterol 3 mg 3 ml inhalation Q6-8H PRN Wheezing 08/16/20 08/15/21 (2.5 mg base)/3 mL nebulization soln lancets 28 gauge (FreeStyle #100 ea 08/16/20 08/16/20 Lancets) loratadine 10 mg capsule 10 mg PO DAILY 08/16/20 08/15/21 metformin 500 mg tablet 500 mg PO BID 08/16/20 08/15/21 montelukast 10 mg tablet 10 mg PO BEDTIME 08/16/20 08/15/21 (Singulair) ondansetron HCl 4 mg tablet 4 mg PO Q8H 08/16/20 08/16/20 (Zofran) ranitidine HCl 150 mg tablet mg PO DAILY 08/16/20 08/16/20 spironolactone 50 mg tablet 50 mg PO DAILY 08/16/20 08/15/21 lisinopril 2.5 mg tablet 1 tab PO DAILY 08/15/21 08/15/21 gabapentin 300 mg capsule 300 mg PO BEDTIME pain 11/04/21 ipratropium bromide 21 mcg (0.03 2 spray intranasal BID 11/04/21 %) nasal spray levothyroxine 50 mcg tablet 50 mcg PO DAILY 11/04/21 potassium chloride 20 mEq 20 meq PO DAILY 11/04/21 tablet,extended release(part/cryst) Previous Rx's Medication Instructions Recorded metoclopramide HCl 10 mg tablet 10 mg PO Q6H PRN nausea and 03/26/20 (Reglan) vomiting #40 tabs Humalog KwikPen Insulin 200 See Rx Instructions subcut TID 30 08/16/20 unit/mL (3 mL) subcutaneous days #12 mL (insulin lispro) Toujeo Max U-300 SoloStar 300 80 unit (0.2667 mL) subcut DAILY 08/16/20 unit/mL (3 mL) subcutaneous 30 days #12 mL insulin pen (insulin glargine U-300 conc) vitamin E (dl, acetate) 180 mg 180 mg PO BID #60 caps 06/14/21 (400 unit) capsule Allergies Allergy/AdvReac Type Severity Reaction Status Date / Time ibuprofen [From MOTRIN] Allergy Unknown RASH Verified 10/08/21 11:04 penicillin V Allergy Unknown hives Verified 10/08/21 11:04 codeine Allergy Unknown Verified 10/08/21 11:04 Rx- listed on H&P Review of Systems Review of Systems: Constitutional: No Fever, No Chills ENT/Mouth: No Ear Pain, No Hoarseness, No sore throat Eyes: No Eye Pain, No Swelling, No Redness, No Foreign Body Cardiovascular: No Chest Pain, No SOB Respiratory: No Cough, No Dyspnea Gastrointestinal: Positive Nausea, positive Vomiting, No Diarrhea, positive abdominal Pain Genitourinary: No Dysuria, No Hematuria Musculoskeletal: No joint pain, No Myalgias, No Joint Swelling Skin: No Skin lacerations, No rash Neuro: No Weakness, No Numbness, No Paresthesias, No Loss of Consciousness, No Dizziness, No Headache Psych: No Anxiety/Panic, No Depression Heme/Lymph: no easy bruising, no Lymphadenopathy Endocrine: No Polyuria, No Polydipsia Yes all other systems are reviewed and are negative Gastrointestinal: Gastrointestinal: Reports nausea PMFSH Past Medical History Attestation statement: The following information was validated with the patient. 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 Morbid obesity Non-toxic multinodular goiter AMY (obstructive sleep apnea) PCOS (polycystic ovarian syndrome) Surgical History Hx of colonoscopy Hx of endoscopy Family History Family History Father Unknown family medical history Mother Hx of type 1 diabetes mellitus Social History Social History Household Members: Spouse Alcohol intake: current Alcohol intake frequency: holidays/special occasions only Patient Tobacco Use Status: Former Tobacco user Quit Date: 7 yrs ago Advance Directives: No Advance Directives Information Provided: No Current occupational status: disabled 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 Oriented X3. No acute distress. Eyes: Pupils equal, round and reactive to light. Sclera nonicteric. ENT: Pharynx normal. Neck: Normal inspection. Neck supple. CVS: Normal heart rate and rhythm. Pulses normal. Respiratory: No respiratory distress. Breath sounds normal. Abdomen: Soft and left upper quadrant tenderness to palpation. Morbidly obese. Skin: Skin warm and dry. Normal skin color. Normal skin turgor. Extremities: No lower extremity edema. Moves all extremities against resistance. Neuro: No motor deficit. No sensory deficit. Cranial nerves 2-12 intact. Course Course Course Narrative: 46-year-old female with morbid obesity, liver cirrhosis secondary to CROCKETT, ascites, insulin-dependent diabetes, polycystic ovarian syndrome, presents with 3 days of nausea and vomiting with abdominal pain. Lab values indicate findings consistent with prior values. Will order CT of the abdomen and pelvis as patient does have a significant abdominal history. Patient is an established gastroenterology patient, has had multiple workups for CROCKETT, gastric varices, and gastroparesis. While patient does have a history of variceal bleeding, patient does not report any melena, hematochezia, and has a stable H&H. Low likelihood of GI bleed at this time. CT scan of abdomen pelvis indicates possible liver mass, and ascites. Recommend MRI and ultrasound. Ultrasound ordered. I did discuss this case in detail with Dr. Corbin, will admit if ultrasound indicates emergent findings. 01:30, ultrasound support CT scan, no new emergent findings noted. Patient must have an MRI as an outpatient, will have patient follow-up with Gastroenterology for further workup. Will give Pepcid 20 mg b.i.d. for 14 days. Patient does have a prescription for Zofran. Patient verbalized understanding of and agrees to plan of care discharge home. Verbalized understanding of signs and symptoms indicating need for emergent intervention. school aide utilized for all correspondence. Google translate utilized for discharge instructions. Consultations Consultation #1: Shaquille Time: 01:30 MDM - Nausea/Vomiting/Diarrhea Differential Diagnosis Differential diagnosis: Likely food poisoning, gastroenteritis and dehydration Medical Records Attestation: I reviewed the patient's medical records. Lab Data Attestation: I reviewed the patient's lab results. Result diagrams: 02/13/22 19:46 02/13/22 19:46 Labs: Lab Results 02/13/22 02/13/22 02/13/22 Range/Units 19:46 19:46 19:46 WBC 6.2 (4.8-10.8) X10*3/uL RBC 4.63 (4.20-5.50) X10*6/uL Hgb 12.7 (12.0-16.0) g/dl Hct 40.7 (37.0-47.0) % MCV 87.9 (80.0-98.0) fL MCH 27.4 (27.0-33.0) pg MCHC 31.2 (31.0-35.0) g/dl RDW 15.7 (11.0-16.0) % Plt Count 78 L (160-400) X10*3/uL MPV 11.2 (9.4-12.3) fL Immature Gran % (Auto) 0.3 (0.0-0.4) % Neut % (Auto) 79.6 H (45-73) % Lymph % (Auto) 12.1 L (20-40) % [place] % (Auto) 7.0 (2-11) % Eos % (Auto) 0.5 (0-4) % Baso % (Auto) 0.5 (0-2) % Lymph # (Auto) 0.8 L (1.2-4.9) X10*3/uL [place] # (Auto) 0.4 (0.1-1.2) X10*3/uL Eos # (Auto) 0.0 (0.0-0.4) X10*3/uL Baso # (Auto) 0.0 (0.0-0.2) X10*3/uL Abs Immat Gran (auto) 0.02 (0.00-0.03) X10*3/uL Absolute Neuts (auto) 4.9 (2.0-8.3) x10*3/uL Absolute Nucleated RBC 0.000 (0.0-0.012) X10*3/uL Nucleated RBC % (auto) 0.0 (0.0-0.2) /100WBC Smear Tech's Comments VERIFIED Sodium 137 (135-145) mmol/L Potassium 3.5 (3.3-5.1) mmol/L Chloride 99 (96-108) mmol/L Carbon Dioxide 24 (22-29) mmol/L Anion Gap 18 (12-20) BUN 8 L D (9-16) mg/dL Creatinine 0.74 (0.5-1.4) mg/dL Estim Creat Clear Calc 112.4 Estimated GFR > 60 Random Glucose 160 H (60-115) mg/dL Calcium 8.7 (8.4-10.2) mg/dL Total Bilirubin 2.5 H (0.0-1.0) mg/dL Direct Bilirubin 1.1 H (0.0-0.5) mg/dL AST 56 H (5-31) U/L ALT 23 (0-31) U/L Alkaline Phosphatase 130 H (39-117) U/L Total Protein 8.2 H (6.5-8.0) g/dL Albumin 3.2 L (3.5-5.0) g/dL Lipase 39 (8-78) U/L Urine Color DK YELLOW Urine Appearance Hazy Urine pH 6.0 (5.0-9.0) Ur Specific [place] 1.020 (1.005-1.025) Urine Protein Trace (Neg-Trace) mg/dL Urine Glucose (UA) Negative (Negative) mg/dL Urine Ketones Trace (Negative) mg/dL Urine Blood Moderate (2+) H (Negative) Urine Nitrite Negative (Negative) Ur Leukocyte Esterase Negative (Negative) Urine RBC 6-10 H (0-2) /HPF Urine WBC 0-5 (0-5) /HPF Ur Squamous Epith Cells 3-5 (0-2) /HPF Urine Bacteria 1+ (None Seen) Hyaline Casts 0-2 (0-2) /LPF Urine Test (NEGATIVE) 02/13/22 Range/Units 19:46 WBC (4.8-10.8) X10*3/uL RBC (4.20-5.50) X10*6/uL Hgb (12.0-16.0) g/dl Hct (37.0-47.0) % MCV (80.0-98.0) fL MCH (27.0-33.0) pg MCHC (31.0-35.0) g/dl RDW (11.0-16.0) % Plt Count (160-400) X10*3/uL MPV (9.4-12.3) fL Immature Gran % (Auto) (0.0-0.4) % Neut % (Auto) (45-73) % Lymph % (Auto) (20-40) % [place] % (Auto) (2-11) % Eos % (Auto) (0-4) % Baso % (Auto) (0-2) % Lymph # (Auto) (1.2-4.9) X10*3/uL [place] # (Auto) (0.1-1.2) X10*3/uL Eos # (Auto) (0.0-0.4) X10*3/uL Baso # (Auto) (0.0-0.2) X10*3/uL Abs Immat Gran (auto) (0.00-0.03) X10*3/uL Absolute Neuts (auto) (2.0-8.3) x10*3/uL Absolute Nucleated RBC (0.0-0.012) X10*3/uL Nucleated RBC % (auto) (0.0-0.2) /100WBC Smear Tech's Comments Sodium (135-145) mmol/L Potassium (3.3-5.1) mmol/L Chloride (96-108) mmol/L Carbon Dioxide (22-29) mmol/L Anion Gap (12-20) BUN (9-16) mg/dL Creatinine (0.5-1.4) mg/dL Estim Creat Clear Calc Estimated GFR Random Glucose (60-115) mg/dL Calcium (8.4-10.2) mg/dL Total Bilirubin (0.0-1.0) mg/dL Direct Bilirubin (0.0-0.5) mg/dL AST (5-31) U/L ALT (0-31) U/L Alkaline Phosphatase (39-117) U/L Total Protein (6.5-8.0) g/dL Albumin (3.5-5.0) g/dL Lipase (8-78) U/L Urine Color Urine Appearance Urine pH (5.0-9.0) Ur Specific [place] (1.005-1.025) Urine Protein (Neg-Trace) mg/dL Urine Glucose (UA) (Negative) mg/dL Urine Ketones (Negative) mg/dL Urine Blood (Negative) Urine Nitrite (Negative) Ur Leukocyte Esterase (Negative) Urine RBC (0-2) /HPF Urine WBC (0-5) /HPF Ur Squamous Epith Cells (0-2) /HPF Urine Bacteria (None Seen) Hyaline Casts (0-2) /LPF Urine Test NEGATIVE (NEGATIVE) Imaging Data CT scan - abdomen: Attestation: I personally reviewed and interpreted this imaging study as follows: Radiologist's impression: FINDINGS: LUNG BASES: Mild basilar atelectasis? LIVER, GALLBLADDER, AND BILIARY TREE: Once again liver is lobular in its contour consistent with cirrhosis. There is some fluid around the liver. Heterogeneous appearance to the liver. Cannot exclude and must consider a mass in the right lobe superior. Gallstones are noted? PANCREAS: Unremarkable.? SPLEEN: Some fluid surrounding the spleen. Mild splenomegaly.? ADRENAL GLANDS: Unremarkable.? KIDNEYS AND URETERS: The kidneys are normal in size, shape, and attenuation. No hydronephrosis, hydroureter, or calculi seen. No perinephric stranding. ? BLADDER: Unremarkable.? GASTROINTESTINAL TRACT: Bowel pattern appears nonobstructing.? ABDOMINAL WALL: No significant hernia is appreciated.? LYMPH NODES: Mild nodes in the portal region is similar to previous. VASCULAR: Unremarkable. PELVIC VISCERA: Unremarkable.? OSSEOUS STRUCTURES: Degenerative changes Once again significant disc osteophyte at L4-L5? CT/CT abdomen pelvis w IV con IMPRESSION: The bowel pattern is nonobstructing. ? There is once again cirrhosis in the liver and moderate splenomegaly with mild ascites now present. ? The liver is heterogeneous in attenuation. A mass cannot be excluded and must be considered in the region of the dome of the liver. Recommendation is ultrasound and/or MRI for further evaluation. ? Gallstones noted. ? Other observations as above ? Fleischner guidelines were followed. Abdominal ultrasound: Attestation: I personally reviewed and interpreted this imaging study as follows: Radiologist's impression: FINDINGS: LIVER: The liver is normal in size. There is a nodular liver Contour. Diffuse heterogeneous echogenicity. No focal hepatic lesion. There is no intrahepatic biliary duct dilatation seen. FREE FLUID: Small volume ascites noted. US/US abdomen limited IMPRESSION: Cirrhotic appearance of the liver. No focal liver lesion identified. Small volume ascites. Discharge Plan Discharge Clinical Impression: 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, Abdominal pain Patient Disposition: Home, Self-Care Instructions: Abdominal Pain (ED), Ascites (ED), Cirrhosis (ED), Gastroesophageal Reflux Disease (ED), Non-Alcoholic Fatty Liver Disease (ED) Additional Instructions: Le evaluaron por dolor abdominal. La tomograf?a computarizada muestra ascitis y cirrosis, de acuerdo con mancilla historial previo. La ecograf?a abdominal apoya los hallazgos de la tomograf?a computarizada. Necesita jonn resonancia magn?valerie latesha paciente ambulatorio. Por favor, nettie un seguimiento con Gastroenterolog?a para m?s estudios. [place] Pepcid 20 mg dos veces al d?a devyn 14 d?as. [place] por elegir tere departamento de emergencias para mancilla evaluaci?n. Por favor, nettie un seguimiento con el m?dico de atenci?n primaria seg?n sea necesario. Regrese al departamento de emergencias por cualquier s?ntoma nuevo, preocupante o que empeore You were evaluated for abdominal pain. CT scan shows ascites and and cirrhosis, consistent with your prior history. Abdominal ultrasound supports the findings of CT scan. You need an MRI as an outpatient. Please follow-up with Gastroenterology for further workup. Please take Pepcid 20 mg twice daily for 14 days. Thank you for choosing this emergency department for evaluation. Please follow-up with primary care physician as needed. Return to the emergency department for any new, concerning, or worsening symptoms. Prescriptions: No Action vitamin E (dl, acetate) 180 mg (400 unit) capsule 180 mg PO BID Qty: 60 3RF metoclopramide HCl [Reglan] 10 mg tablet 10 mg PO Q6H PRN (Reason: nausea and vomiting) Qty: 40 0RF Rx Instructions: take 1 tablet half an hour before meals lisinopril 2.5 mg tablet 1 tab PO DAILY dicyclomine 10 mg capsule 10 mg PO BID amitriptyline 50 mg tablet 50 mg PO BEDTIME spironolactone 50 mg tablet 50 mg PO DAILY ondansetron HCl [Zofran] 4 mg tablet 4 mg PO Q8H ranitidine HCl 150 mg tablet PO DAILY (DME) FreeStyle Lite Strips Strip See Rx Instructions .ROUTE .MEDSUPPLY Qty: 10 Rx Instructions: test 3x a day (DME) lancets [FreeStyle Lancets] 28 gauge misc See Rx Instructions .ROUTE .MEDSUPPLY Qty: 100 Rx Instructions: test 3x a day aspirin [Adult Low Dose Aspirin] 81 mg tablet,delayed release (DR/EC) 81 mg PO DAILY loratadine 10 mg capsule 10 mg PO DAILY montelukast [Singulair] 10 mg tablet 10 mg PO BEDTIME albuterol sulfate [ProAir HFA] 90 mcg/actuation HFA aerosol inhaler 2 puff inhalation Q6H PRN (Reason: Wheezing) metformin 500 mg tablet 500 mg PO BID ipratropium-albuterol 0.5 mg-3 mg(2.5 mg base)/3 mL solution for nebulization 3 ml inhalation Q6-8H PRN (Reason: Wheezing) Flovent HFA 220 mcg/actuation HFA aerosol inhaler 2 puff inhalation BID cholecalciferol (vitamin D3) 50 mcg (2,000 unit) capsule 50 mcg PO DAILY Humalog KwikPen Insulin 200 unit/mL (3 mL) insulin pen See Rx Instructions subcut TID 30 Days Qty: 12 6RF Rx Instructions: 26 units if blood sugar less than 200 mg/dL and 30 units is more than 200 mg/dL subcut 3 times a day; Toujeo Max U-300 SoloStar 300 unit/mL (3 mL) insulin pen 80 unit subcut DAILY 30 Days Qty: 12 6RF gabapentin 300 mg capsule 300 mg PO BEDTIME ipratropium bromide 21 mcg (0.03 %) spray,non-aerosol 2 spray intranasal BID levothyroxine 50 mcg tablet 50 mcg PO DAILY potassium chloride 20 mEq tablet,ER particles/crystals 20 meq PO DAILY Referrals: Sergei Verma MD [Physician] - 1 week (Crockett, ascites, abdominal pain)
[2022-02-13 21:21] LABS: Bacteria Urine 1+ (None Seen); Hyaline Casts Urine 0-2 /LPF (0-2); WBC Urine 0-5 /HPF (0-5)
--- OUTSIDE RECORDS SUMMARY | 2022-02-13 21:31 | XMS_ITS | Continuity of Care Document ---
:1975 Author Organization [facility] Address [address] [place] [address]- Care Team Providers Name Role Phone Dayana CARREON, Radha Primary Care Physician Encounter [facility] [id number] Date(s): 07/29/21 - 08/28/[address] [id number] Attending Physician: Crow, Agustín Admitting Physician: AdmtrAgustín Referring Physician: Admtr, Ar8 Allergies, Adverse Reactions, Alerts Substance Reaction Severity Status codeine unknown,per PCP note Active penicillin RASH Moderate Active Motrin rash Active iodine gastritis,acidity Active Medications albuterol (OP) 90 mcg-2 puffs, Inhalation, Every 6 hours, 0 Refills, Maintenance, 2 Start Date: 08/12/19 Status: OrderedAmbien 5 mg oral tablet 1 tablet = 5 mg, By Mouth, Daily at bedtime, 0 Refills, Maintenance, 08/10/19 13:02:00 EDT Start Date: 08/10/19 Status: OrderedamiTRIPTYLINE 50 mg- [id number], By Mouth, Daily at bedtime, 0 Refills, Maintenance, 08/10/19 12:57:00 EDT Start Date: 08/10/19 Status: OrderedAspirin = 81 mg, By Mouth, Daily, stop [address] Anne, 0 Refills, Maintenance, 12/22/14 10:13:07 Start Date: 12/22/14 Status: OrderedBaclofen See Instructions, PRN as needed for muscle spasm, 20 mg By Mouth 1-2 times daily, 0 Refills, Maintenance, 08/12/19 8:20:00 EDT Start Date: 08/12/19 Status: OrderedCane See Instructions, # 1 units, Maintenance, R leg pain, 03/13/14 17:42:20, Compound Start Date: 03/13/14 Status: OrderedCetirizine = 10 mg, By Mouth, Daily, 0 Refills, Maintenance, 08/10/19 13:01:00 EDT Start Date: 08/10/19 Status: Orderedcyclobenzaprine 5 mg oral tablet 1 tablet = 5 mg, By Mouth, 3 times a day with meals, 0 Refills, Maintenance, 08/09/19 15:38:00 EDT Start Date: 08/09/19 Status: Ordereddicyclomine 10 mg oral capsule 1 capsule = 10 mg, By Mouth, 2 times a day, # 28 capsule, 0 Refills, Maintenance, 08/09/19 15:38:00 EDT, Capsule Start Date: 08/09/19 Stop Date: 08/16/19 Status: OrderedDuoneb Inhalation Solution 3, mL, Neb, 4 times a day, Refills 0, Maintenance, 08/10/19 12:58:00 EDT Start Date: 08/10/19 Status: OrderedFlovent Diskus See Instructions, Inhalation 2 times a day-2 puffs, 0 Refills, Maintenance, 08/09/19 15:39:00 EDT Start Date: 08/09/19 Status: OrderedHumalog Inj See Instructions, 19 units with brunch;14 units with dinner, 0 Refills, Maintenance, 10/18/12 10:12:20 EDT Start Date: 10/18/12 Status: OrderedIbuprofen 800 mg, By Mouth, 3 times a day, Refills 0, Maintenance, 08/10/19 13:06:00 EDT Start Date: 08/10/19 Status: OrderedLantus Inj = 60 units, Subcutaneous Injection, Daily at bedtime, 0 Refills, Maintenance, 10/18/12 10:11:58 EDT Start Date: 10/18/12 Status: Orderedlisinopril 2.5 mg oral tablet 2.5 mg, 1, tablet, By Mouth, Daily, Refills 0, Maintenance, 08/10/19 13:03:00 EDT Start Date: 08/10/19 Status: OrderedLoratadine 10 mg, By Mouth, Daily, Refills 0, Maintenance, 08/12/19 8:25:00 EDT Start Date: 08/12/19 Status: OrderedMapap 500 mg oral tablet 2 tablet = 1,000 mg, By Mouth, Every 6 hours, PRN Pain , Severe, 0 Refills, Maintenance, 12/22/14 10:25:36 EDT Start Date: 12/22/14 Status: OrderedmetFORMIN 500 mg oral tablet, extended release 1 tablet = 500 mg, By Mouth, 2 times a day, with breakfast and dinner, # 60 tablet, 3 Refills, Maintenance, 10/02/16 15:59:33, ER Tablet Start Date: 10/02/16 Stop Date: 01/30/17 Status: OrderedRanitidine = 150 mg, By Mouth, 2 times a day, 0 Refills, Maintenance, 08/12/19 8:27:00 EDT Start Date: 08/12/19 Status: OrderedReglan 10 mg oral tablet 1 tablet = 10 mg, By Mouth, 3 times a day before meals and bedtime, 0 Refills, Maintenance, :29:00 EDT Start Date: 08/12/19 Status: OrderedSingulair 10 mg oral tablet 10 mg, 1, tablet, By Mouth, Daily at bedtime, Refills 0, Maintenance, 08/10/19 12:59:00 EDT Start Date: 08/10/19 Status: Orderedspironolactone 50 mg oral tablet 1 tablet = 50 mg, By Mouth, 2 times a day, 0 Refills, Maintenance, 08/10/19 13:00:00 EDT Start Date: 08/10/19 Status: OrderedZofran 4 mg oral tablet 2 tablet = 8 mg, By Mouth, 2 times a day, 0 Refills, Maintenance, 08/12/19 8:30:00 EDT Start Date: 08/12/19 Status: Ordered
--- OUTSIDE RECORDS SUMMARY | 2022-02-13 21:32 | XMS_ITS | Continuity of Care Document ---
:1975 Author Organization [facility] Address [address] [place] [id number]- Care Team Providers Name Role Phone Dayana CARREON, Radha Primary Care Physician [place] [facility] [place]/06/[place] - 09/11/[address] [address]- [facility] Attending Physician: Libby MAY MD, Kal Mcghee Allergies, Adverse Reactions, Alerts Substance Reaction Severity [...] Start Date: 08/10/19 Status: OrderedamiTRIPTYLINE 50 mg- [id number], By Mouth, Daily at bedtime, 0 Refills, [...]
--- OUTSIDE RECORDS SUMMARY | 2022-02-13 21:32 | XMS_ITS | Continuity of Care Document ---
:1975 [address] [facility] Address [address] [place] [address]- Care Team Providers Name Role Phone Dayana CARREON, Radha Primary Care Physician Encounter [facility] [place] Date(s): 06/23/21 - 08/28/[address] [address]- Attending Physician: Not on Staff, Attending MD Referring Physician: Milagros Rm Allergies, Adverse Reactions, Alerts Substance Reaction Severity [...] Start Date: 08/10/19 Status: OrderedamiTRIPTYLINE 50 mg- [id number], By Mouth, Daily at bedtime, 0 Refills, [...]
[2022-02-13 22:00] VITALS: BP 140/69; PULSE 79; RESP 16; TEMP 36.9; O2SAT 98
[2022-02-13] MEDS: ondansetron HCL 4 MG/2 ML VIAL IVPUSH (22:17)
[2022-02-13] MEDS: 0.9 % Sodium Chloride 1,000 ML 999 ML IVCONT (22:17)
[2022-02-13] MEDS: iohexoL 350 MG/ML 100 ML INFUS..BTL 85 ML IV (22:35)
[2022-02-13 23:54] VITALS: BP 115/50; PULSE 73; RESP 16; TEMP 37.1; O2SAT 97
== END 2022-02-14 02:11 | disposition home or self-care (01) ==
PROVIDERS: Emergency Provider Emergency Medicine; PCP Family Medicine
DX: K75.81 Nonalcoholic steatohepatitis (NASH) (principal); R11.2 Nausea with vomiting, unspecified; R10.12 Left upper quadrant pain; Z87.891 Personal history of nicotine dependence; Z79.899 Other long term (current) drug therapy
CPT/HCPCS: 36415; 74177; 76705; 80053; 81001; 81003; 81025; 82248; 83690; 85025; 96361; 96374; 99283; 99284; J2405; Q9967

== ENCOUNTER 2022-02-15 17:56 | Emergency (ER) | payer MEDICAID, SELFPAY ==
--- NOTE | ~2022-02-15 | US_ITS ---
EXAMINATION: US ABDOMEN LIMITED CLINICAL INFORMATION: Right upper quadrant pain. COMPARISON: Abdominal ultrasound 02/06/2022 TECHNIQUE: Real-time imaging of the right upper quadrant abdominal viscera. FINDINGS: PANCREAS: Normal. LIVER: Liver is at least mildly enlarged measuring 16.2 cm in span. Nodular hepatic contour suggestive of cirrhosis. Echogenic and heterogeneous hepatic echotexture. No focal hepatic lesion. There is no intrahepatic biliary duct dilatation seen. GALLBLADDER: The gallbladder is physiologically distended. Multiple mobile gallstones are present. No evidence of gallbladder wall thickening or pericholecystic fluid. Negative sonographic Aguirre sign. COMMON BILE DUCT: Normal in caliber measuring 0.3 cm in diameter. RIGHT KIDNEY: Normal. No hydronephrosis. No renal calculi or focal parenchymal lesions. The kidney measures 11.9 cm in maximum dimension. FREE FLUID: Small volume perihepatic ascites. US/US abdomen limited IMPRESSION: 1. Cholelithiasis without evidence of acute cholecystitis. 2. Liver is at least mildly enlarged with echogenic and heterogeneous hepatic echotexture suggesting underlying liver disease and a nodular hepatic contour suggesting cirrhosis. 3. Small volume perihepatic ascites.
[2022-02-15 18:13] VITALS: BP 123/69; PULSE 73; RESP 18; TEMP 36.3; O2SAT 99; BMI 42.5
--- NOTE | 2022-02-15 20:07 | ED.ABDPAIN ---
HPI - Abdominal Pain General Chief Complaint: Abdominal Pain Stated Complaint: Abdominal Pain Time Seen by Provider: 02/15/22 20:04 Source: patient, old records reviewed and japanese interpreter Mode of arrival: ambulatory Limitations: no limitations History of Present Illness HPI narrative: 46 yo female with hx of liver cirrhosis due to SERVIN, diabetic gastroparesis, obesity, asthma, HLD, AMY, PCOS was seen here on 02/[address] scan showed gallstones with possible liver mass - US of liver showed no mass she was DC home after medications and feeling better she comes in tonight with c/o persistent nausea, cannot eat, upper abdominal pain - hasn't had a BM in 4 days but is passing fas MD elicited complaint: abdominal pain Pertinent past history: other (gallstones) Onset (ago): day(s) (4) Pain Consistency: constant Location: epigastric and RUQ Severity: moderate Quality: aching and fullness Radiation: none Migration to: no migration Exacerbating factors: eating Relieving factors: nothing Context: history of similar episodes Associated symptoms: nausea and constipation Related Data Home Medications Medication Instructions Recorded Confirmed albuterol sulfate 90 mcg/actuation 2 puff inhalation Q6H PRN Wheezing 08/16/20 08/15/21 aerosol inhaler (ProAir HFA) amitriptyline 50 mg tablet 50 mg PO BEDTIME 08/16/20 08/15/21 aspirin 81 mg tablet,delayed 81 mg PO DAILY 08/16/20 08/15/21 release (Adult Low Dose Aspirin) blood sugar diagnostic (FreeStyle #10 ea 08/16/20 08/16/20 Lite Strips) cholecalciferol (vitamin D3) 50 50 mcg PO DAILY 08/16/20 08/15/21 mcg (2,000 unit) capsule dicyclomine 10 mg capsule 10 mg PO BID 08/16/20 08/15/21 fluticasone propionate 220 2 puff inhalation BID 08/16/20 08/15/21 mcg/actuation HFA aerosol inhaler (Flovent HFA) ipratropium 0.5 mg-albuterol 3 mg 3 ml inhalation Q6-8H PRN Wheezing 08/16/20 08/15/21 (2.5 mg base)/3 mL nebulization soln lancets 28 gauge (FreeStyle #100 ea 08/16/20 08/16/20 Lancets) loratadine 10 mg capsule 10 mg PO DAILY 08/16/20 08/15/21 metformin 500 mg tablet 500 mg PO BID 08/16/20 08/15/21 montelukast 10 mg tablet 10 mg PO BEDTIME 08/16/20 08/15/21 (Singulair) ondansetron HCl 4 mg tablet 4 mg PO Q8H 08/16/20 08/16/20 (Zofran) ranitidine HCl 150 mg tablet mg PO DAILY 08/16/20 08/16/20 spironolactone 50 mg tablet 50 mg PO DAILY 08/16/20 08/15/21 lisinopril 2.5 mg tablet 1 tab PO DAILY 08/15/21 08/15/21 gabapentin 300 mg capsule 300 mg PO BEDTIME pain 11/04/21 ipratropium bromide 21 mcg (0.03 2 spray intranasal BID 11/04/21 %) nasal spray levothyroxine 50 mcg tablet 50 mcg PO DAILY 11/04/21 potassium chloride 20 mEq 20 meq PO DAILY 11/04/21 tablet,extended release(part/cryst) Previous Rx's Medication Instructions Recorded metoclopramide HCl 10 mg tablet 10 mg PO Q6H PRN nausea and 03/26/20 (Reglan) vomiting #40 tabs Humalog KwikPen Insulin 200 See Rx Instructions subcut TID 30 08/16/20 unit/mL (3 mL) subcutaneous days #12 mL (insulin lispro) Toujeo Max U-300 SoloStar 300 80 unit (0.2667 mL) subcut DAILY 08/16/20 unit/mL (3 mL) subcutaneous 30 days #12 mL insulin pen (insulin glargine U-300 conc) vitamin E (dl, acetate) 180 mg 180 mg PO BID #60 caps 06/14/21 (400 unit) capsule docusate sodium 100 mg capsule 100 mg PO BID PRN constipation #30 02/15/22 (Colace) caps ondansetron 4 mg disintegrating 4 mg PO Q8H PRN nausea and 02/15/22 tablet vomiting #20 tabs oxycodone 5 mg tablet 5 mg PO BID PRN pain #10 tabs 02/15/22 sennosides 8.6 mg capsule (senna) 8.6 mg PO BEDTIME PRN constipation 02/15/22 #30 caps Allergies Allergy/AdvReac Type Severity Reaction Status Date / Time ibuprofen [From MOTRIN] Allergy Unknown RASH Verified 10/08/21 11:04 penicillin V Allergy Unknown hives Verified 10/08/21 11:04 codeine Allergy Unknown Verified 10/08/21 11:04 Rx- listed on H&P Review of Systems Review of Systems Constitutional : No Weight loss, No Fever, No Chills ENT/Mouth : No sore throat, No Rhinorrhea Eyes: No Swelling, No Redness Cardiovascular : No Chest Pain, No SOB, NoEdema Respiratory : No Cough, No Sputum, No Wheezing Gastrointestinal : Positive Nausea, no Vomiting, no Diarrhea, positive abdominal Pain, No Hematochezia, No Melena, pos constipation Genitourinary : No Dysuria, No Urinary Frequency, No Hematuria, No Urgency Musculoskeletal : No joint pain, No Myalgias, No Joint Swelling Skin : No Skin Lesions, No rash Neuro : No Weakness, No Numbness, No Dizziness, No Headache Psych : No Anxiety/Panic, No Depression Heme/Lymph: No Bruising, No Lymphadenopathy Endocrine : No Polyuria, No Polydipsia All other systems reviewed and are negative. [facility] Past Medical History Medical History Acromegaly Asthma Diabetes type 2, uncontrolled Diabetic nephropathy associated with type 2 diabetes mellitus Dyslipidemia Elevated TSH Goiter HTN (hypertension) nursing home (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 insulin Morbid obesity Non-toxic multinodular goiter AMY (obstructive sleep apnea) PCOS (polycystic ovarian syndrome) Surgical History Hx of colonoscopy Hx of endoscopy Family History Family History Father Unknown family medical history Mother Hx of type 1 diabetes mellitus Social History Social History Household Members: Spouse Alcohol intake: current Alcohol intake frequency: holidays/special occasions only Patient Tobacco Use Status: Former Tobacco user Quit Date: 7 yrs ago Advance Directives: No Advance Directives Information Provided: No Current occupational status: disabled 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 Oriented X3. No acute distress. Eyes: Pupils equal, round and reactive to light. scleral icterus ENT: Pharynx normal. Neck: Normal inspection. Neck supple. CVS: Normal heart rate and rhythm. Pulses normal. Respiratory: No respiratory distress. Breath sounds normal. Abdomen: Soft and moderate ttp in RUQ. obese Skin: Skin warm and dry. Normal skin color. Normal skin turgor. Extremities: No lower extremity edema. No calf ttp Neuro: Oriented X 3. No motor deficit. No sensory deficit. Course Course Course Narrative: patient is eating and drinking here no vomiting states her pain is gone and she feels much better and feels she can go home, labs at baseline, no signs of cholecystitis. plans to see her GI doctor and will give number for gen surgery MDM - Abdominal Pain MDM Narrative Medical decision making narrative: 46 yo female with hx of liver cirrhosis due to SERVIN, diabetic gastroparesis, obesity, asthma, HLD, AMY, PCOS at this time persistent nausea, abdominal pain, constipation but flatus. At this time will need labs, IV dilaudid for pain, US to evaluate for gallstones. Dispo per results and ability to tolerate PO. Lab Data Result diagrams: 02/15/22 20:44 02/15/22 20:44 Labs: Lab Results 02/15/22 02/15/22 02/15/22 Range/Units 20:44 20:44 20:44 WBC 5.0 (4.8-10.8) X10*3/uL RBC 4.41 (4.20-5.50) X10*6/uL Hgb 12.3 (12.0-16.0) g/dl Hct 38.5 (37.0-47.0) % MCV 87.3 (80.0-98.0) fL MCH 27.9 (27.0-33.0) pg MCHC 31.9 (31.0-35.0) g/dl RDW 15.6 (11.0-16.0) % Plt Count 72 L (160-400) X10*3/uL MPV 12.1 (9.4-12.3) fL Immature Gran % (Auto) 0.4 (0.0-0.4) % Neut % (Auto) 71.0 (45-73) % Lymph % (Auto) 15.2 L (20-40) % [place] % (Auto) 10.4 (2-11) % Eos % (Auto) 2.2 (0-4) % Baso % (Auto) 0.8 (0-2) % Lymph # (Auto) 0.8 L (1.2-4.9) X10*3/uL [place] # (Auto) 0.5 (0.1-1.2) X10*3/uL Eos # (Auto) 0.1 (0.0-0.4) X10*3/uL Baso # (Auto) 0.0 (0.0-0.2) X10*3/uL Abs Immat Gran (auto) 0.02 (0.00-0.03) X10*3/uL Absolute Neuts (auto) 3.5 (2.0-8.3) x10*3/uL Absolute Nucleated RBC 0.000 (0.0-0.012) X10*3/uL Nucleated RBC % (auto) 0.0 (0.0-0.2) /100WBC Smear Tech's Comments VERIFIED PT 20.5 H (10.0-13.1) SEC INR 1.7 H (0.9-1.1) Sodium 135 (135-145) mmol/L Potassium 4.2 (3.3-5.1) mmol/L Chloride 101 (96-108) mmol/L Carbon Dioxide 23 (22-29) mmol/L Anion Gap 15 (12-20) BUN 6 L (9-16) mg/dL Creatinine 0.68 (0.5-1.4) mg/dL Estim Creat Clear Calc 122.3 Estimated GFR > 60 Random Glucose 129 H (60-115) mg/dL Calcium 8.2 L (8.4-10.2) mg/dL Magnesium 1.7 (1.6-2.6) mg/dL Total Bilirubin 2.3 H (0.0-1.0) mg/dL Direct Bilirubin 0.7 H (0.0-0.5) mg/dL AST 67 H (5-31) U/L ALT 22 (0-31) U/L Alkaline Phosphatase 102 D (39-117) U/L C-Reactive Protein 0.22 (< or = 0.50) mg/dL Total Protein 7.5 (6.5-8.0) g/dL Albumin 2.9 L (3.5-5.0) g/dL Lipase 33 (8-78) U/L COVID-19 (KIYA) (Negative) COVID-19 Clin Com 02/15/22 Range/Units 21:10 WBC (4.8-10.8) X10*3/uL RBC (4.20-5.50) X10*6/uL Hgb (12.0-16.0) g/dl Hct (37.0-47.0) % MCV (80.0-98.0) fL MCH (27.0-33.0) pg MCHC (31.0-35.0) g/dl RDW (11.0-16.0) % Plt Count (160-400) X10*3/uL MPV (9.4-12.3) fL Immature Gran % (Auto) (0.0-0.4) % Neut % (Auto) (45-73) % Lymph % (Auto) (20-40) % [place] % (Auto) (2-11) % Eos % (Auto) (0-4) % Baso % (Auto) (0-2) % Lymph # (Auto) (1.2-4.9) X10*3/uL [place] # (Auto) (0.1-1.2) X10*3/uL Eos # (Auto) (0.0-0.4) X10*3/uL Baso # (Auto) (0.0-0.2) X10*3/uL Abs Immat Gran (auto) (0.00-0.03) X10*3/uL Absolute Neuts (auto) (2.0-8.3) x10*3/uL Absolute Nucleated RBC (0.0-0.012) X10*3/uL Nucleated RBC % (auto) (0.0-0.2) /100WBC Smear Tech's Comments PT (10.0-13.1) SEC INR (0.9-1.1) Sodium (135-145) mmol/L Potassium (3.3-5.1) mmol/L Chloride (96-108) mmol/L Carbon Dioxide (22-29) mmol/L Anion Gap (12-20) BUN (9-16) mg/dL Creatinine (0.5-1.4) mg/dL Estim Creat Clear Calc Estimated GFR Random Glucose (60-115) mg/dL Calcium (8.4-10.2) mg/dL Magnesium (1.6-2.6) mg/dL Total Bilirubin (0.0-1.0) mg/dL Direct Bilirubin (0.0-0.5) mg/dL AST (5-31) U/L ALT (0-31) U/L Alkaline Phosphatase (39-117) U/L C-Reactive Protein (< or = 0.50) mg/dL Total Protein (6.5-8.0) g/dL Albumin (3.5-5.0) g/dL Lipase (8-78) U/L COVID-19 (KIYA) Negative (Negative) COVID-19 Clin Com Not Reportable ECG Data Attestation: I personally reviewed and interpreted this ECG as follows: ECG interpretation date: 02/15/22 ECG interpretation time: 21:08 Interpretation: Rate: 72 Rhythm: NSR [place]: normal Normal P waves. Normal JAN. Normal QRS complex. ST T wave : inverted III and aVF, no GARY qTC: normal prior studies: no acute ischemia The study has been interpreted contemporaneously by me. . Discharge Plan Discharge Clinical Impression: Diabetic gastroparesis, Biliary colic, Gallstones Patient Disposition: Home, Self-Care Instructions: Biliary Colic (ED), Gallstones (ED), Gastroparesis (ED) Additional Instructions: return to ED for any worsening symptoms or concerns please follow up with your GI doctor regresar al servicio de urgencias por cualquier empeoramiento de los s?ntomas o inquietudes por favor, nettie un seguimiento con mancilla m?dico GI Prescriptions: New docusate sodium [Colace] 100 mg capsule 100 mg PO BID PRN (Reason: constipation) Qty: 30 0RF ondansetron 4 mg tablet,disintegrating 4 mg PO Q8H PRN (Reason: nausea and vomiting) Qty: 20 0RF senna 8.6 mg capsule 8.6 mg PO BEDTIME PRN (Reason: constipation) Qty: 30 0RF oxycodone 5 mg tablet 5 mg PO BID PRN (Reason: pain) Qty: 10 0RF Rx Instructions: Partial Fill upon patient request. No Action vitamin E (dl, acetate) 180 mg (400 unit) capsule 180 mg PO BID Qty: 60 3RF metoclopramide HCl [Reglan] 10 mg tablet 10 mg PO Q6H PRN (Reason: nausea and vomiting) Qty: 40 0RF Rx Instructions: take 1 tablet half an hour before meals lisinopril 2.5 mg tablet 1 tab PO DAILY dicyclomine 10 mg capsule 10 mg PO BID amitriptyline 50 mg tablet 50 mg PO BEDTIME spironolactone 50 mg tablet 50 mg PO DAILY ondansetron HCl [Zofran] 4 mg tablet 4 mg PO Q8H ranitidine HCl 150 mg tablet PO DAILY (DME) FreeStyle Lite Strips Strip See Rx Instructions .ROUTE .MEDSUPPLY Qty: 10 Rx Instructions: test 3x a day (DME) lancets [FreeStyle Lancets] 28 gauge misc See Rx Instructions .ROUTE .MEDSUPPLY Qty: 100 Rx Instructions: test 3x a day aspirin [Adult Low Dose Aspirin] 81 mg tablet,delayed release (DR/EC) 81 mg PO DAILY loratadine 10 mg capsule 10 mg PO DAILY montelukast [Singulair] 10 mg tablet 10 mg PO BEDTIME albuterol sulfate [ProAir HFA] 90 mcg/actuation HFA aerosol inhaler 2 puff inhalation Q6H PRN (Reason: Wheezing) metformin 500 mg tablet 500 mg PO BID ipratropium-albuterol 0.5 mg-3 mg(2.5 mg base)/3 mL solution for nebulization 3 ml inhalation Q6-8H PRN (Reason: Wheezing) Flovent HFA 220 mcg/actuation HFA aerosol inhaler 2 puff inhalation BID cholecalciferol (vitamin D3) 50 mcg (2,000 unit) capsule 50 mcg PO DAILY Humalog KwikPen Insulin 200 unit/mL (3 mL) insulin pen See Rx Instructions subcut TID 30 Days Qty: 12 6RF Rx Instructions: 26 units if blood sugar less than 200 mg/dL and 30 units is more than 200 mg/dL subcut 3 times a day; Toujeo Max U-300 SoloStar 300 unit/mL (3 mL) insulin pen 80 unit subcut DAILY 30 Days Qty: 12 6RF gabapentin 300 mg capsule 300 mg PO BEDTIME ipratropium bromide 21 mcg (0.03 %) spray,non-aerosol 2 spray intranasal BID levothyroxine 50 mcg tablet 50 mcg PO DAILY potassium chloride 20 mEq tablet,ER particles/crystals 20 meq PO DAILY
--- NOTE | 2022-02-15 20:12 | ECG_ITS ---
Test Reason : ABDOMINAL PAIN Blood Pressure : / mmHG Vent. Rate : 072 BPM Atrial Rate : 072 BPM P-R Int : 160 ms QRS Dur : 078 ms QT Int : 404 ms P-R-T Axes : 007 058 -05 degrees QTc Int : 442 ms Normal sinus rhythm Low voltage QRS Abnormal QRS-T angle, consider primary T wave abnormality Abnormal ECG When compared with ECG of 21-SEP-2017 15:29, Vent. rate has decreased BY 42 BPM Inverted T waves have replaced nonspecific T wave abnormality in Inferior leads Referred By: Aura Cabrera Electronically Signed By:PARDEEP TOLBERT MD
[2022-02-15 20:58] LABS: Basophils Percent Auto 0.8 % (0-2); Eosinophils Absolute Auto 0.1 X10*3/uL (0.0-0.4); Eosinophils Percent Auto 2.2 % (0-4); Hematocrit 38.5 % (37.0-47.0); Hemoglobin 12.3 g/dl (12.0-16.0); Imm Gran Abs Auto 0.02 X10*3/uL (0.00-0.03); Imm Gran Pct Auto 0.4 % (0.0-0.4); Lymphocytes Absolute Auto 0.8 X10*3/uL (1.2-4.9); Lymphocytes Percent Auto 15.2 % (20-40); MANUAL DIFF FLAG SCAN; Mean Corpuscular HGB Conc 31.9 g/dl (31.0-35.0); Mean Corpuscular Hemoglobin 27.9 pg (27.0-33.0); Mean Corpuscular Volume 87.3 fL (80.0-98.0); Mean Platelet Volume 12.1 fL (9.4-12.3); Monocytes Absolute Auto 0.5 X10*3/uL (0.1-1.2); Monocytes Percent Auto 10.4 % (2-11); Neutrophils Absolute Auto 3.5 x10*3/uL (2.0-8.3); PLT CLUMP 1; Red Blood Count 4.41 X10*6/uL (4.20-5.50); Red Cell Distribution Width 15.6 % (11.0-16.0); SCAN SMEAR FLAG 1
[2022-02-15] MEDS: ondansetron HCL 4 MG/2 ML VIAL IVPUSH (21:00)
[2022-02-15] MEDS: HYDROmorphone HCl 0.5 MG/0.5 ML SYRINGE IVPUSH (21:01)
[2022-02-15 21:07] LABS: INTERNATIONAL NORM RATIO 1.7 (0.9-1.1); Prothrombin Time 20.5 SEC (10.0-13.1)
[2022-02-15 21:16] LABS: Platelet Count 72 X10*3/uL (160-400)
[2022-02-15 21:17] LABS: SLIDE REVIEW VERIFIED
[2022-02-15 21:28] LABS: COVID-19 Test Negative (Negative)
[2022-02-15 21:40] LABS: Alanine Aminotransferase 22 U/L (0-31); Albumin Level 2.9 g/dL (3.5-5.0); Alkaline Phosphatase 102 U/L (39-117); Anion Gap 15 (12-20); Aspartate Amino Transferase 67 U/L (5-31); Bilirubin Direct 0.7 mg/dL (0.0-0.5); Bilirubin Total 2.3 mg/dL (0.0-1.0); Blood Urea Nitrogen 6 mg/dL (9-16); C Reactive Protein 0.22 mg/dL (< or = 0.50); Calcium 8.2 mg/dL (8.4-10.2); Carbon Dioxide 23 mmol/L (22-29); Chloride 101 mmol/L (96-108); Creatinine Clr Calc Pharmacy 122.3; Estimated Glomerular Filt Rate > 60; Glucose Random 129 mg/dL (60-115); Lipase 33 U/L (8-78); Magnesium 1.7 mg/dL (1.6-2.6); Potassium 4.2 mmol/L (3.3-5.1); Sodium 135 mmol/L (135-145); Total Protein 7.5 g/dL (6.5-8.0)
== END 2022-02-15 23:52 | disposition home or self-care (01) ==
PROVIDERS: Emergency Provider Emergency Medicine; PCP Family Medicine
DX: E11.43 Type 2 diabetes mellitus with diabetic autonomic (poly)neuropathy (principal); K80.50 Calculus of bile duct without cholangitis or cholecystitis without obstruction; K80.80 Other cholelithiasis without obstruction; Z20.822 Contact with and (suspected) exposure to COVID-19; Z79.899 Other long term (current) drug therapy; Z87.891 Personal history of nicotine dependence
CPT/HCPCS: 76705; 80048; 80076; 83690; 83735; 85025; 85610; 86140; 87635; 93005; 96374; 96375; 99283; 99284; J1170; J2405

== ENCOUNTER 2022-02-26 09:59 | Outpatient (REF) | payer MEDICAID, SELFPAY ==
--- NOTE | ~2022-02-26 | XR_ITS ---
EXAMINATION: XR KNEE, LEFT CLINICAL INFORMATION: Left knee COMPARISON: None TECHNIQUE: Four views of the left knee. FINDINGS: Bones and soft tissues are normal. No fracture or joint effusion. Alignment is anatomic. Joint spaces are well maintained. No abnormal soft tissue calcification. XR/XR knee LT 4V IMPRESSION: Normal left knee.
--- NOTE | ~2022-02-26 | US_ITS ---
EXAMINATION: US ABDOMEN COMPLETE CLINICAL INFORMATION: Left lower quadrant pain. COMPARISON: Ultrasound abdomen limited 02/15/2022 and 02/14/2022. CT abdomen and pelvis with contrast 02/13/2022. X-ray abdomen 11/01/2018. TECHNIQUE: Real-time imaging of the abdominal viscera. Technically limited study secondary to body habitus. FINDINGS: PANCREAS: The head and the body of the pancreas has homogeneous echotexture. The tail of the pancreas is obscured by overlying gas. ABDOMINAL AORTA: The proximal abdominal aorta is of normal caliber. The mid and the distal segments are not visualized. INFERIOR VENA CAVA: Visualized portions are normal. LIVER: The liver is enlarged and heterogeneous with lobulated nodular counter. There is mild ascites. No focal hepatic lesion. There is no intrahepatic biliary duct dilatation seen. GALLBLADDER: The gallbladder is physiologically distended. Multiple mobile gallstones are present. No evidence of pericholecystic fluid. Gallbladder wall thickness is 0.52 cm. COMMON BILE DUCT: Normal in caliber measuring 0.23 cm in diameter. RIGHT KIDNEY: Normal. No hydronephrosis. No renal calculi or focal parenchymal lesions. The kidney measures 12.6 cm in maximum dimension. LEFT KIDNEY: Normal. No hydronephrosis. No renal calculi or focal parenchymal lesions. The kidney measures 12.4 cm in maximum dimension. SPLEEN: Normal. The spleen measures 17.1 cm in maximum dimension. FREE FLUID: There is small amount of free fluid. Imaging through the left lower quadrant where patient complains of pain, there is no abnormality seen by ultrasound. US/US abdomen complete IMPRESSION: Cirrhotic liver with nodular heterogeneous echotexture. Mild ascites. Cholelithiasis without wall thickening.
== END 2022-02-26 10:00 | disposition home or self-care (01) ==
LOC: HO.HMGCX 09:59
PROVIDERS: Absent Provider Family Medicine; PCP Family Medicine; Visit Provider Dentist Pediatric Dentistry
DX: M25.562 Pain in left knee (principal); R10.32 Left lower quadrant pain
CPT/HCPCS: 73564; 76700

== ENCOUNTER 2022-03-11 11:54 | Emergency (ER) | payer MEDICAID, SELFPAY ==
--- NOTE | ~2022-03-11 | CT_ITS ---
EXAMINATION: CT ABDOMEN AND PELVIS WITHOUT CONTRAST CLINICAL INFORMATION: Left lower quadrant abdominal mass. Rule out hernia. COMPARISON: Previous CT of the abdomen and pelvis most recent January 2022 and abdominal ultrasound February 2022 TECHNIQUE: Multidetector volumetric imaging was performed from the superior aspect of the liver through the pubic symphysis. Sagittal and coronal reformatted images were obtained on the technologist's workstation. This CT examination was performed using dose optimization techniques as appropriate, variously including the following: *Automated exposure control *Adjustment of mA and/or kV according to patient size (this includes techniques or standardized protocols for targeted exams where dose is matched to indication/reason for exam; i.e. extremities or head) *Use of iterative reconstruction technique DLP: 1424 mGy-cm FINDINGS: LUNG BASES: There is subsegmental atelectasis at the lung bases. LIVER, GALLBLADDER, AND BILIARY TREE: The liver appears cirrhotic. No focal liver lesion. Gallstones in the gallbladder. No biliary duct dilatation. The gallbladder is unremarkable with no evidence of radiopaque gallstones, gallbladder wall thickening, or obvious pericholecystic inflammatory changes. Large amount of ascites. PANCREAS: Unremarkable. SPLEEN: Spleen is enlarged and measures 17 cm in length. ADRENAL GLANDS: Unremarkable. KIDNEYS AND URETERS: The kidneys are normal in size, shape, and attenuation. No hydronephrosis, hydroureter, or calculi seen. No perinephric stranding. BLADDER: Unremarkable. GASTROINTESTINAL TRACT: The small and large bowel are unremarkable. The appendix is not seen. ABDOMINAL WALL: Small umbilical hernia containing fat and ascitic fluid. No recurrent hernia. Marked skin thickening and edema of the cutaneous soft tissues, particularly in the pelvis. LYMPH NODES: There are no enlarged lymph nodes. There is shotty retroperitoneal and bilateral inguinal lymphadenopathy. VASCULAR: Atherosclerotic disease. No aneurysm. PELVIC VISCERA: Unremarkable. OSSEOUS STRUCTURES: Degenerative changes of the spine. CT/CT abdomen pelvis wo IV con IMPRESSION: Small umbilical hernia. No inguinal or femoral hernia seen. Shotty bilateral inguinal lymphadenopathy. Large amount of ascites. Cirrhosis and splenomegaly. Gallstones. Fleischner guidelines were followed.
[2022-03-11 11:56] VITALS: BP 156/83; PULSE 104; RESP 18; TEMP 36.2; O2SAT 99; BMI 49.1
[2022-03-11 12:16] LABS: Hematocrit 38.5 % (37.0-47.0); Hemoglobin 12.3 g/dl (12.0-16.0); Mean Corpuscular HGB Conc 31.9 g/dl (31.0-35.0); Mean Corpuscular Hemoglobin 28.1 pg (27.0-33.0); Mean Corpuscular Volume 87.9 fL (80.0-98.0); Red Blood Count 4.38 X10*6/uL (4.20-5.50); Red Cell Distribution Width 15.7 % (11.0-16.0)
[2022-03-11 12:17] LABS: Platelet Count 73 X10*3/uL (160-400)
[2022-03-11 12:23] LABS: Appearance Urine Cloudy; Color Urine Dark Yellow; Glucose Urine UA Negative (Negative); Leukocyte Esterase Urine Trace (Negative); Nitrite Urine Negative (Negative); UMIC TRIGGER UA YES; Urine Blood Moderate (2+) (Negative); Urine Ketones Trace mg/dL (Negative); Urine Protein 30 (1+) mg/dL (Neg-Trace)
[2022-03-11 12:32] LABS: Alanine Aminotransferase 31 U/L (0-31); Albumin Level 2.8 g/dL (3.5-5.0); Alkaline Phosphatase 125 U/L (39-117); Anion Gap 12 (12-20); Aspartate Amino Transferase 72 U/L (5-31); Bilirubin Direct 0.7 mg/dL (0.0-0.5); Bilirubin Total 1.7 mg/dL (0.0-1.0); Blood Urea Nitrogen 4 mg/dL (9-16); Carbon Dioxide 27 mmol/L (22-29); Chloride 99 mmol/L (96-108); Creatinine Clr Calc Pharmacy 139.7; Estimated Glomerular Filt Rate > 60; Glucose Random 194 mg/dL (60-115); Potassium 3.7 mmol/L (3.3-5.1); Sodium 134 mmol/L (135-145); Total Protein 7.4 g/dL (6.5-8.0)
[2022-03-11 12:37] LABS: Bacteria Urine 1+ (None Seen); Hyaline Casts Urine 0-2 /LPF (0-2); RBC Urine 0-2 /HPF (0-2); Squamous Epithelial Cell Urine >20 /HPF (0-2)
[2022-03-11 12:38] LABS: B Type Natriuretic Peptide 26 pg/mL (<100)
--- NOTE | 2022-03-11 14:18 | ED.GENADULT ---
HPI - General Adult General Chief complaint: General Medical Stated complaint: Lump on abd? lower back pain Time Seen by Provider: 03/11/22 13:43 Source: patient and hourly sign language interpreter Mode of arrival: ambulatory Limitations: no limitations History of Present Illness HPI narrative: 46-year-old female history of liver cirrhosis, diabetic gastroparesis, obesity, asthma came in for evaluation of left lower quadrant tenderness for 7 days, no nausea, no vomiting, normal bowel movement and passing flatus, no fever, no chills, no relieving factor or aggravating factor. Pain is moderate but constant 7/10. No radiation of the pain. Related Data Home Medications Medication Instructions Recorded Confirmed albuterol sulfate 90 mcg/actuation 2 puff inhalation Q6H PRN Wheezing 08/16/20 08/15/21 aerosol inhaler (ProAir HFA) amitriptyline 50 mg tablet 50 mg PO BEDTIME 08/16/20 08/15/21 aspirin 81 mg tablet,delayed 81 mg PO DAILY 08/16/20 08/15/21 release (Adult Low Dose Aspirin) blood sugar diagnostic (FreeStyle #10 ea 08/16/20 08/16/20 Lite Strips) cholecalciferol (vitamin D3) 50 50 mcg PO DAILY 08/16/20 08/15/21 mcg (2,000 unit) capsule dicyclomine 10 mg capsule 10 mg PO BID 08/16/20 08/15/21 fluticasone propionate 220 2 puff inhalation BID 08/16/20 08/15/21 mcg/actuation HFA aerosol inhaler (Flovent HFA) ipratropium 0.5 mg-albuterol 3 mg 3 ml inhalation Q6-8H PRN Wheezing 08/16/20 08/15/21 (2.5 mg base)/3 mL nebulization soln lancets 28 gauge (FreeStyle #100 ea 08/16/20 08/16/20 Lancets) loratadine 10 mg capsule 10 mg PO DAILY 08/16/20 08/15/21 metformin 500 mg tablet 500 mg PO BID 08/16/20 08/15/21 montelukast 10 mg tablet 10 mg PO BEDTIME 08/16/20 08/15/21 (Singulair) ondansetron HCl 4 mg tablet 4 mg PO Q8H 08/16/20 08/16/20 (Zofran) ranitidine HCl 150 mg tablet mg PO DAILY 08/16/20 08/16/20 spironolactone 50 mg tablet 50 mg PO DAILY 08/16/20 08/15/21 lisinopril 2.5 mg tablet 1 tab PO DAILY 08/15/21 08/15/21 gabapentin 300 mg capsule 300 mg PO BEDTIME pain 11/04/21 ipratropium bromide 21 mcg (0.03 2 spray intranasal BID 11/04/21 %) nasal spray levothyroxine 50 mcg tablet 50 mcg PO DAILY 11/04/21 potassium chloride 20 mEq 20 meq PO DAILY 11/04/21 tablet,extended release(part/cryst) Previous Rx's Medication Instructions Recorded metoclopramide HCl 10 mg tablet 10 mg PO Q6H PRN nausea and 03/26/20 (Reglan) vomiting #40 tabs Humalog KwikPen Insulin 200 See Rx Instructions subcut TID 30 08/16/20 unit/mL (3 mL) subcutaneous days #12 mL (insulin lispro) Toujeo Max U-300 SoloStar 300 80 unit (0.2667 mL) subcut DAILY 08/16/20 unit/mL (3 mL) subcutaneous 30 days #12 mL insulin pen (insulin glargine U-300 conc) vitamin E (dl, acetate) 180 mg 180 mg PO BID #60 caps 06/14/21 (400 unit) capsule docusate sodium 100 mg capsule 100 mg PO BID PRN constipation #30 02/15/22 (Colace) caps ondansetron 4 mg disintegrating 4 mg PO Q8H PRN nausea and 02/15/22 tablet vomiting #20 tabs oxycodone 5 mg tablet 5 mg PO BID PRN pain #10 tabs 02/15/22 sennosides 8.6 mg capsule (senna) 8.6 mg PO BEDTIME PRN constipation 02/15/22 #30 caps Allergies Allergy/AdvReac Type Severity Reaction Status Date / Time ibuprofen [From MOTRIN] Allergy Unknown RASH Verified 10/08/21 11:04 penicillin V Allergy Unknown hives Verified 10/08/21 11:04 codeine Allergy Unknown Verified 10/08/21 11:04 Rx- listed on H&P Review of Systems Review of Systems: All other systems are reviewed and are negative Constitutional: Reports as per HPI and Reports no additional constitutional complaints Eyes: Reports as per HPI and Reports no additional eye complaints Reports system reviewed and no additional complaints, except as documented Cardiovascular: Reports as per HPI and Reports no additional cardiovascular complaints Respiratory: Reports as per HPI and Reports no additional respiratory complaints Gastrointestinal: Reports as per HPI and Reports no additional gastrointestinal complaints Genitourinary: Reports no additional female genitourinary complaints Musculoskeletal: Reports no additional musculoskeletal complaints Skin/Breast: Reports system reviewed and no additional complaints, except as docu Psychiatric: Reports no additional psychiatric complaints Endocrine: Reports no additional endocrine complaints Hematologic/Lymphatic: Reports no additional hematologic/lymphatic complaints Allergic/Immunologic: Reports no additional allergic/immunologic complaints Reports system reviewed and no additional complaints, except as documented and Reports Abnormal speech present [facility] Past Medical History Medical History Acromegaly Asthma Diabetes type 2, uncontrolled Diabetic nephropathy associated with type 2 diabetes mellitus Dyslipidemia Elevated TSH Goiter HTN (hypertension) 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 Morbid obesity Non-toxic multinodular goiter AMY (obstructive sleep apnea) PCOS (polycystic ovarian syndrome) Surgical History Hx of colonoscopy Hx of endoscopy Family History Family History Father Unknown family medical history Mother Hx of type 1 diabetes mellitus Social History Social History Household Members: Spouse Alcohol intake: never Patient Tobacco Use Status: Former Tobacco user Quit Date: 7 yrs ago Smoked in Last 30 Days: No Use of substances other than those prescribed or required for medical reasons: No Advance Directives: No Advance Directives Information Provided: Yes Current occupational status: disabled 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 Blood pressure normal. Heart rate elevated. Respiration rate normal. Temperature normal. Oxygen saturation normal. Appearance: Alert. Oriented X3. No acute distress. Head: Normal external exam. Normocephalic. Atraumatic. No Goodrich signs noted. No raccoon eyes noted Eyes: PERRLA. EOMI. Conjunctiva and sclera normal. Eyelids normal. ENT: TM's Normal. Pharynx normal. Uvula midline. Moist mucous membranes. No trismus noted. No drooling noted. No muffled voice noted. Neck: Normal inspection. Neck supple. FROM. No adenopathy. Thyroid Normal. No meningeal signs. No neck mass noted. CVS: Normal heart rate and rhythm. Heart sound normal. No murmurs noted. Pulses normal throughout. Respiratory: No respiratory distress. Painless inspiration. Breath sounds normal. No wheezes/rales/rhonchi noted. Chest nontender. No accessory muscle usage noted or decreased air movement noted. Abdomen: Soft, left lower quadrant tenderness. Bowel sounds normal in all 4 quadrants. No distention noted. No organomegaly noted. No visible injury noted. Back: No CVA tenderness. Full range of motion noted. Skin: Skin warm and dry. Normal skin color. Normal skin turgor. No rashes/lesions/lacerations noted. Extremities: No lower extremity edema. Extremities exhibit normal range of motion. Extremities nontender. Neuro: Oriented X 3. Cranial nerve exam: II-XII are grossly intact No motor deficit. No sensory deficit. Reflexes normal. Course Course Course Narrative: 46-year-old female with history of liver cirrhosis secondary to SERVIN, diabetic gastroparesis, obesity came in with abdominal distension and feeling abdominal mass in the left lower abdomen CT non strangulating small umbilical hernia otherwise large amount of ascites, patient has a chronic elevation of LFTs which is all secondary to liver cirrhosis. Patient will be discharged. My instruction was given to the patient via hourly sign language interpreter service, patient do not need emergent paracentesis at this point. Will discharge to follow-up with transitions manager. Medical Decision Making Lab Data Lab results reviewed: Yes I reviewed the patient's lab results. Result diagrams: 03/11/22 12:07 03/11/22 12:07 Labs: Lab Results 03/11/22 03/11/22 03/11/22 Range/Units 12:07 12:07 12:07 WBC 3.0 L (4.8-10.8) X10*3/uL RBC 4.38 (4.20-5.50) X10*6/uL Hgb 12.3 (12.0-16.0) g/dl Hct 38.5 (37.0-47.0) % MCV 87.9 (80.0-98.0) fL MCH 28.1 (27.0-33.0) pg MCHC 31.9 (31.0-35.0) g/dl RDW 15.7 (11.0-16.0) % Plt Count 73 L (160-400) X10*3/uL MPV 11.0 (9.4-12.3) fL Absolute Nucleated RBC 0.000 (0.0-0.012) X10*3/uL Nucleated RBC % (auto) 0.0 (0.0-0.2) /100WBC Sodium 134 L (135-145) mmol/L Potassium 3.7 (3.3-5.1) mmol/L Chloride 99 (96-108) mmol/L Carbon Dioxide 27 (22-29) mmol/L Anion Gap 12 (12-20) BUN 4 L (9-16) mg/dL Creatinine 0.65 (0.5-1.4) mg/dL Estim Creat Clear Calc 139.7 Estimated GFR > 60 Random Glucose 194 H (60-115) mg/dL Calcium 8.0 L (8.4-10.2) mg/dL Total Bilirubin 1.7 H (0.0-1.0) mg/dL Direct Bilirubin 0.7 H (0.0-0.5) mg/dL AST 72 H (5-31) U/L ALT 31 (0-31) U/L Alkaline Phosphatase 125 H D (39-117) U/L B-Natriuretic Peptide 26 (<100) pg/mL Total Protein 7.4 (6.5-8.0) g/dL Albumin 2.8 L (3.5-5.0) g/dL Urine Color Urine Appearance Urine pH (5.0-9.0) Ur Specific [place] (1.005-1.025) Urine Protein (Neg-Trace) mg/dL Urine Glucose (UA) (Negative) mg/dL Urine Ketones (Negative) mg/dL Urine Blood (Negative) Urine Nitrite (Negative) Ur Leukocyte Esterase (Negative) Urine RBC (0-2) /HPF Urine WBC (0-5) /HPF Ur Squamous Epith Cells (0-2) /HPF Urine Bacteria (None Seen) Hyaline Casts (0-2) /LPF 03/11/22 Range/Units 12:15 WBC (4.8-10.8) X10*3/uL RBC (4.20-5.50) X10*6/uL Hgb (12.0-16.0) g/dl Hct (37.0-47.0) % MCV (80.0-98.0) fL MCH (27.0-33.0) pg MCHC (31.0-35.0) g/dl RDW (11.0-16.0) % Plt Count (160-400) X10*3/uL MPV (9.4-12.3) fL Absolute Nucleated RBC (0.0-0.012) X10*3/uL Nucleated RBC % (auto) (0.0-0.2) /100WBC Sodium (135-145) mmol/L Potassium (3.3-5.1) mmol/L Chloride (96-108) mmol/L Carbon Dioxide (22-29) mmol/L Anion Gap (12-20) BUN (9-16) mg/dL Creatinine (0.5-1.4) mg/dL Estim Creat Clear Calc Estimated GFR Random Glucose (60-115) mg/dL Calcium (8.4-10.2) mg/dL Total Bilirubin (0.0-1.0) mg/dL Direct Bilirubin (0.0-0.5) mg/dL AST (5-31) U/L ALT (0-31) U/L Alkaline Phosphatase (39-117) U/L B-Natriuretic Peptide (<100) pg/mL Total Protein (6.5-8.0) g/dL Albumin (3.5-5.0) g/dL Urine Color Dark Yellow Urine Appearance Cloudy Urine pH 6.0 (5.0-9.0) Ur Specific [place] 1.020 (1.005-1.025) Urine Protein 30 (1+) H (Neg-Trace) mg/dL Urine Glucose (UA) Negative (Negative) mg/dL Urine Ketones Trace (Negative) mg/dL Urine Blood Moderate (2+) H (Negative) Urine Nitrite Negative (Negative) Ur Leukocyte Esterase Trace H (Negative) Urine RBC 0-2 (0-2) /HPF Urine WBC 6-10 H (0-5) /HPF Ur Squamous Epith Cells >20 (0-2) /HPF Urine Bacteria 1+ (None Seen) Hyaline Casts 0-2 (0-2) /LPF Imaging Data CT scan - abdomen: Attestation: I personally reviewed and interpreted this imaging study as follows: Discharge Plan Discharge Clinical Impression: 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, Abdominal pain, Ascites Patient Disposition: Home, Self-Care Instructions: Abdominal Pain (ED) Prescriptions: No Action vitamin E (dl, acetate) 180 mg (400 unit) capsule 180 mg PO BID Qty: 60 3RF metoclopramide HCl [Reglan] 10 mg tablet 10 mg PO Q6H PRN (Reason: nausea and vomiting) Qty: 40 0RF Rx Instructions: take 1 tablet half an hour before meals lisinopril 2.5 mg tablet 1 tab PO DAILY docusate sodium [Colace] 100 mg capsule 100 mg PO BID PRN (Reason: constipation) Qty: 30 0RF ondansetron 4 mg tablet,disintegrating 4 mg PO Q8H PRN (Reason: nausea and vomiting) Qty: 20 0RF senna 8.6 mg capsule 8.6 mg PO BEDTIME PRN (Reason: constipation) Qty: 30 0RF oxycodone 5 mg tablet 5 mg PO BID PRN (Reason: pain) Qty: 10 0RF Rx Instructions: Partial Fill upon patient request. dicyclomine 10 mg capsule 10 mg PO BID amitriptyline 50 mg tablet 50 mg PO BEDTIME spironolactone 50 mg tablet 50 mg PO DAILY ondansetron HCl [Zofran] 4 mg tablet 4 mg PO Q8H ranitidine HCl 150 mg tablet PO DAILY (DME) FreeStyle Lite Strips Strip See Rx Instructions .ROUTE .MEDSUPPLY Qty: 10 Rx Instructions: test 3x a day (DME) lancets [FreeStyle Lancets] 28 gauge misc See Rx Instructions .ROUTE .MEDSUPPLY Qty: 100 Rx Instructions: test 3x a day aspirin [Adult Low Dose Aspirin] 81 mg tablet,delayed release (DR/EC) 81 mg PO DAILY loratadine 10 mg capsule 10 mg PO DAILY montelukast [Singulair] 10 mg tablet 10 mg PO BEDTIME albuterol sulfate [ProAir HFA] 90 mcg/actuation HFA aerosol inhaler 2 puff inhalation Q6H PRN (Reason: Wheezing) metformin 500 mg tablet 500 mg PO BID ipratropium-albuterol 0.5 mg-3 mg(2.5 mg base)/3 mL solution for nebulization 3 ml inhalation Q6-8H PRN (Reason: Wheezing) Flovent HFA 220 mcg/actuation HFA aerosol inhaler 2 puff inhalation BID cholecalciferol (vitamin D3) 50 mcg (2,000 unit) capsule 50 mcg PO DAILY Humalog KwikPen Insulin 200 unit/mL (3 mL) insulin pen See Rx Instructions subcut TID 30 Days Qty: 12 6RF Rx Instructions: 26 units if blood sugar less than 200 mg/dL and 30 units is more than 200 mg/dL subcut 3 times a day; Toujeo Max U-300 SoloStar 300 unit/mL (3 mL) insulin pen 80 unit subcut DAILY 30 Days Qty: 12 6RF gabapentin 300 mg capsule 300 mg PO BEDTIME ipratropium bromide 21 mcg (0.03 %) spray,non-aerosol 2 spray intranasal BID levothyroxine 50 mcg tablet 50 mcg PO DAILY potassium chloride 20 mEq tablet,ER particles/crystals 20 meq PO DAILY Referrals: Sergei Verma MD [Physician] - Radha Anne MD [Primary Care Provider] -
== END 2022-03-11 16:29 | disposition home or self-care (01) ==
PROVIDERS: Emergency Provider Emergency Medicine; PCP Family Medicine
DX: K75.81 Nonalcoholic steatohepatitis (NASH) (principal); K74.60 Unspecified cirrhosis of liver; R18.8 Other ascites; R06.02 Shortness of breath; Z79.899 Other long term (current) drug therapy
CPT/HCPCS: 36415; 74176; 80053; 81001; 82248; 83880; 85027; 99284

== ENCOUNTER → 2022-03-31 12:07 | Outpatient (BNVA) | payer MEDICAID, SELFPAY | PROVIDERS: PCP Family Medicine; Visit Provider Internal Medicine Gastroenterology | DX: K75.81 Nonalcoholic steatohepatitis (NASH) (principal); K74.60 Unspecified cirrhosis of liver | CPT/HCPCS: 99212 ==

== ENCOUNTER 2022-04-02 11:44 | Day surgery (SDC) | payer MEDICAID, SELFPAY ==
--- NOTE | ~2022-04-02 | US_ITS ---
EXAMINATION: ULTRASOUND-GUIDED PARACENTESIS CLINICAL INFORMATION: Ascites COMPARISON: None TECHNIQUE: Procedure and risks and benefits including bleeding, infection and low blood pressure were discussed with the patient and informed consent was obtained. The right lower quadrant was prepped and draped in the usual sterile fashion. The skin and soft tissues were anesthetized with 1% lidocaine plain. Using ultrasound guidance and a 5 [place] catheter, access to the ascitic fluid was obtained. 9.7 L of clear yellow fluid was removed. Diagnostic specimen was sent as requested by the ordering physician. FINDINGS: There is a large amount of ascites. US/US paracentesis abd w/image IMPRESSION: Ultrasound-guided paracentesis.
[2022-04-02 07:07] VITALS: BMI 47.9
[2022-04-02 12:14] LABS: Glucose, Whole Blood 188 mg/dL (60-115)
[2022-04-02 12:26] LABS: MANUAL DIFF FLAG NO
[2022-04-02 12:30] VITALS: BP 118/78; PULSE 112; RESP 20; TEMP 36.6; O2SAT 97
[2022-04-02 12:30] LABS: Basophils Absolute Auto 0.1 X10*3/uL (0.0-0.2); Basophils Percent Auto 0.9 % (0-2); Eosinophils Absolute Auto 0.1 X10*3/uL (0.0-0.4); Eosinophils Percent Auto 0.9 % (0-4); Hematocrit 37.5 % (37.0-47.0); Hemoglobin 11.9 g/dl (12.0-16.0); Imm Gran Abs Auto 0.01 X10*3/uL (0.00-0.03); Imm Gran Pct Auto 0.2 % (0.0-0.4); Lymphocytes Absolute Auto 0.7 X10*3/uL (1.2-4.9); Lymphocytes Percent Auto 13.2 % (20-40); Mean Corpuscular HGB Conc 31.7 g/dl (31.0-35.0); Mean Corpuscular Hemoglobin 28.6 pg (27.0-33.0); Mean Corpuscular Volume 90.1 fL (80.0-98.0); Mean Platelet Volume 10.4 fL (9.4-12.3); Monocytes Absolute Auto 0.7 X10*3/uL (0.1-1.2); Monocytes Percent Auto 12.5 % (2-11); Neutrophils Absolute Auto 3.9 x10*3/uL (2.0-8.3); Neutrophils Percent Auto 72.3 % (45-73); Red Blood Count 4.16 X10*6/uL (4.20-5.50); Red Cell Distribution Width 17.1 % (11.0-16.0); White Blood Count 5.4 X10*3/uL (4.8-10.8)
[2022-04-02 12:31] LABS: Platelet Count 87 X10*3/uL (160-400)
[2022-04-02 12:40] LABS: Prothrombin Time 23.2 SEC (10.0-13.1)
[2022-04-02 12:43] LABS: Partial Thromboplastin Time 37.1 SEC (26.0-36.4)
[2022-04-02 12:49] LABS: UPreg QC Valid YES; Urine Pregnancy NEGATIVE (NEGATIVE)
[2022-04-02 14:30] VITALS: BP 116/65; PULSE 105; RESP 18; TEMP 36.2; O2SAT 96
[2022-04-02] MEDS: Lidocaine HCl 1 % MPF 30 ML VIAL SUBCUT (14:43)
[2022-04-02 14:45] VITALS: BP 104/65; PULSE 105; RESP 18; TEMP 36.4; O2SAT 96
--- NOTE | 2022-04-02 14:48 | HO.RADPN ---
RADIOLOGY Narrative Narrative: RLQ paracentesis using 5 Fr ctheter. 10 L clear yellow fluid removed. Diagnostic specimen sent.
[2022-04-02 15:00] VITALS: BP 120/72; PULSE 103; RESP 14; TEMP 36.4; O2SAT 95
[2022-04-02 15:15] LABS: MN% 68.4 %; PMN% 31.6 %; WBC Peritoneal Fluid 0.285 X10*3/uL
[2022-04-02 15:16] LABS: RBC Peritoneal Fluid < 0.002 X10*6/uL
[2022-04-02 15:43] LABS: Lymphocyte Peritoneal Fl 9 %; Monocytes Peritoneal Fl 48 %; Neutrophils Peritoneal Fluid 25 %; Other Peritioneal Fl 18 %
[2022-04-02 15:44] LABS: BF Shift QC OK YES
--- NOTE | 2022-04-02 15:52 | PC.NURSE ---
Skin color appears WNL but sclera are jaundiced
[2022-04-02 23:53] LABS: pH Peritoneal Fluid 7.55
[2022-04-03 00:56] LABS: LDH Peritoneal Fluid 54 U/L
[2022-04-03 01:19] LABS: Albumin Peritoneal Fluid 0.2 GM/DL
== END 2022-04-02 15:05 | disposition home or self-care (01) ==
PROVIDERS: Radiology Diagnostic Radiology; PCP Family Medicine; Visit Provider Internal Medicine Gastroenterology
DX: R18.8 Other ascites (principal); K74.60 Unspecified cirrhosis of liver; K75.81 Nonalcoholic steatohepatitis (NASH); K80.20 Calculus of gallbladder without cholecystitis without obstruction; G47.33 Obstructive sleep apnea (adult) (pediatric); J45.909 Unspecified asthma, uncomplicated; E78.5 Hyperlipidemia, unspecified; E66.01 Morbid (severe) obesity due to excess calories; Z68.42 Body mass index [BMI] 45.0-49.9, adult; E11.21 Type 2 diabetes mellitus with diabetic nephropathy; Z79.4 Long term (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 insulin; Z88.0 Allergy status to penicillin; Z88.8 Allergy status to other drugs, medicaments and biological substances; Z87.891 Personal history of nicotine dependence
CPT/HCPCS: 36415; 49083; 81025; 82042; 82947; 83615; 83986; 85025; 85610; 85730; 87070; 87073; 87205; 88112; 89051; C1729

== ENCOUNTER 2022-04-08 12:00 | Outpatient (REF) | payer MEDICAID, SELFPAY ==
[2022-04-08 12:22] LABS: MANUAL DIFF FLAG NO
[2022-04-08 13:33] LABS: INTERNATIONAL NORM RATIO 1.8 (0.9-1.1); Prothrombin Time 21.5 SEC (10.0-13.1)
[2022-04-08 13:37] LABS: Basophils Absolute Auto 0.1 X10*3/uL (0.0-0.2); Eosinophils Absolute Auto 0.1 X10*3/uL (0.0-0.4); Eosinophils Percent Auto 1.6 % (0-4); Hematocrit 40.3 % (37.0-47.0); Hemoglobin 13.1 g/dl (12.0-16.0); Imm Gran Abs Auto 0.02 X10*3/uL (0.00-0.03); Imm Gran Pct Auto 0.3 % (0.0-0.4); Lymphocytes Absolute Auto 0.7 X10*3/uL (1.2-4.9); Lymphocytes Percent Auto 12.3 % (20-40); Mean Corpuscular HGB Conc 32.5 g/dl (31.0-35.0); Mean Corpuscular Volume 89.4 fL (80.0-98.0); Mean Platelet Volume 10.8 fL (9.4-12.3); Monocytes Absolute Auto 0.6 X10*3/uL (0.1-1.2); Monocytes Percent Auto 11.1 % (2-11); Neutrophils Absolute Auto 4.2 x10*3/uL (2.0-8.3); Neutrophils Percent Auto 73.7 % (45-73); Platelet Count 103 X10*3/uL (160-400); Red Blood Count 4.51 X10*6/uL (4.20-5.50); Red Cell Distribution Width 17.1 % (11.0-16.0); White Blood Count 5.8 X10*3/uL (4.8-10.8)
[2022-04-08 15:05] LABS: Alanine Aminotransferase 27 U/L (0-31); Albumin Level 2.6 g/dL (3.5-5.0); Alkaline Phosphatase 109 U/L (39-117); Anion Gap 13 (12-20); Aspartate Amino Transferase 45 U/L (5-31); Bilirubin Total 3.5 mg/dL (0.0-1.0); Blood Urea Nitrogen 7 mg/dL (9-16); Calcium 8.2 mg/dL (8.4-10.2); Carbon Dioxide 27 mmol/L (22-29); Chloride 95 mmol/L (96-108); Cholesterol 112 mg/dL; Estimated Glomerular Filt Rate > 60; Glucose Random 149 mg/dL (60-115); HDL Cholesterol 22 mg/dL; LDL Cholesterol Calculated 74 mg/dl; Potassium 4.1 mmol/L (3.3-5.1); Sodium 131 mmol/L (135-145); Total Protein 7.6 g/dL (6.5-8.0); Triglycerides 80 mg/dL
[2022-04-08 16:48] LABS: Ferritin 51 ng/mL (10-250); Vitamin D 25-OH Total 16.3 ng/mL (>30)
[2022-04-08 17:03] LABS: Folate 8.9 ng/mL (> or = 4.0); Vitamin B12 1170 pg/mL (200-900)
[2022-04-12 01:32] LABS: Zinc 50 mcg/dL (60-130)
[2022-04-12 16:19] LABS: Vitamin A <5 mcg/dL (38-98)
[2022-04-12 16:23] LABS: Alpha-Tocopherol 8.9 mg/L (5.7-19.9); Beta-Gamma Tocopherol <1.0 mg/L (<=4.3)
[2022-04-12 17:08] LABS: Vitamin C 0.9 mg/dL (0.3-2.7)
[2022-04-12 17:18] LABS: Vitamin K1 337 pg/mL (130-1500)
[2022-04-12 22:28] LABS: Nicotinamide <20 ng/mL; Vit B3 - Nicotinic Acid <20 ng/mL; Vitamin B5 (Pantothenic Acid) <40 ng/mL (<275)
[2022-04-14 16:19] LABS: Vitamin B6 3.3 ng/mL (2.1-21.7)
[2022-04-16 15:02] LABS: Testosterone, Free 6.4 pg/mL (0.1-6.4); Testosterone, Total 75 ng/dL (2-45)
== END 2022-04-08 12:01 | disposition home or self-care (01) ==
LOC: HO.LAB 12:00
PROVIDERS: Absent Provider Internal Medicine Endocrinology, Diabetes & Metabolism; PCP Family Medicine; Visit Provider Internal Medicine Gastroenterology
DX: E11.65 Type 2 diabetes mellitus with hyperglycemia (principal); E28.2 Polycystic ovarian syndrome; K74.60 Unspecified cirrhosis of liver; K75.81 Nonalcoholic steatohepatitis (NASH)
CPT/HCPCS: 36415; 80053; 80061; 82180; 82306; 82607; 82728; 82746; 84207; 84402; 84403; 84446; 84590; 84591; 84597; 84630; 85025; 85610

== ENCOUNTER → 2022-04-28 11:55 | Outpatient (BNVA) | payer MEDICAID, SELFPAY | PROVIDERS: PCP Family Medicine; Visit Provider Internal Medicine Gastroenterology | DX: K75.81 Nonalcoholic steatohepatitis (NASH) (principal); K74.60 Unspecified cirrhosis of liver; E11.65 Type 2 diabetes mellitus with hyperglycemia; E11.21 Type 2 diabetes mellitus with diabetic nephropathy; E66.9 Obesity, unspecified; Z68.43 Body mass index [BMI] 50.0-59.9, adult | CPT/HCPCS: 99212 ==

== ENCOUNTER 2022-04-30 08:55 | Emergency (ER) | payer MEDICAID, SELFPAY ==
--- NOTE | ~2022-04-30 | XR_ITS ---
EXAMINATION: XR ANKLE, RIGHT CLINICAL INFORMATION: Fall. COMPARISON: Right foot radiographs dated 06/15/2019. TECHNIQUE: AP, lateral, and mortise views of the right ankle. FINDINGS: No acute fracture or dislocation. The ankle mortise is maintained. No joint space narrowing or marginal osteophytes. No concerning lytic or blastic osseous lesion. Prominent plantar and dorsal calcaneal enthesophytes, unchanged. Atherosclerotic calcifications. Redemonstration of dystrophic calcifications within the soft tissues. XR/XR ankle RT min 3V IMPRESSION: 1. No acute osseous abnormality. 2. Prominent plantar and dorsal calcaneal spurs, unchanged.
[2022-04-30 09:06] VITALS: BP 125/69; BP 128/86; PULSE 105; PULSE 108; RESP 18; TEMP 36.8; O2SAT 97; O2SAT 99; BMI 55.7
[2022-04-30 09:26] VITALS: BP 106/69; PULSE 101; RESP 20; TEMP 36.6; O2SAT 95
--- NOTE | 2022-04-30 10:48 | ED.FALL ---
HPI - Fall General Chief Complaint: Fall Stated Complaint: RLE PAIN S/P FALL,ALSO: ABD DIST D/T LF PER EMS Time Seen by Provider: 04/30/22 09:34 Source: patient and family () Mode of arrival: EMS History of Present Illness HPI Narrative: 46-year-old female who was taking the shuttle into her prescribed ultrasound thoracentesis today and when she was getting off of the shuttle she tripped and fell forward onto her right knee and is not complaining of right ankle pain. She denies any pain to the right upper extremity, hip. Related Data Home Medications Medication Instructions Recorded Confirmed albuterol sulfate 90 mcg/actuation 2 puff inhalation Q6H PRN Wheezing 08/16/20 08/15/21 aerosol inhaler (ProAir HFA) amitriptyline 50 mg tablet 50 mg PO BEDTIME 08/16/20 08/15/21 aspirin 81 mg tablet,delayed 81 mg PO DAILY 08/16/20 08/15/21 release (Adult Low Dose Aspirin) blood sugar diagnostic (FreeStyle #10 ea 08/16/20 08/16/20 Lite Strips) cholecalciferol (vitamin D3) 50 50 mcg PO DAILY 08/16/20 08/15/21 mcg (2,000 unit) capsule dicyclomine 10 mg capsule 10 mg PO BID 08/16/20 08/15/21 fluticasone propionate 220 2 puff inhalation BID 08/16/20 08/15/21 mcg/actuation HFA aerosol inhaler (Flovent HFA) ipratropium 0.5 mg-albuterol 3 mg 3 ml inhalation Q6-8H PRN Wheezing 08/16/20 08/15/21 (2.5 mg base)/3 mL nebulization soln lancets 28 gauge (FreeStyle #100 ea 08/16/20 08/16/20 Lancets) loratadine 10 mg capsule 10 mg PO DAILY 08/16/20 08/15/21 metformin 500 mg tablet 500 mg PO BID 08/16/20 08/15/21 montelukast 10 mg tablet 10 mg PO BEDTIME 08/16/20 08/15/21 (Singulair) ondansetron HCl 4 mg tablet 4 mg PO Q8H 08/16/20 08/16/20 (Zofran) ranitidine HCl 150 mg tablet mg PO DAILY 08/16/20 08/16/20 gabapentin 300 mg capsule 300 mg PO BEDTIME pain 11/04/21 ipratropium bromide 21 mcg (0.03 2 spray intranasal BID 11/04/21 %) nasal spray levothyroxine 50 mcg tablet 50 mcg PO DAILY 11/04/21 potassium chloride 20 mEq 20 meq PO DAILY 11/04/21 tablet,extended release(part/cryst) dulaglutide 1.5 mg/0.5 mL mg subcut QWEEK 04/28/22 subcutaneous pen injector (Trulicity) vitamin A 10,000 unit capsule 1 cap PO DAILY 04/28/22 Previous Rx's Medication Instructions Recorded metoclopramide HCl 10 mg tablet 10 mg PO Q6H PRN nausea and 03/26/20 (Reglan) vomiting #40 tabs Humalog KwikPen Insulin 200 See Rx Instructions subcut TID 30 08/16/20 unit/mL (3 mL) subcutaneous days #12 mL (insulin lispro) Toujeo Max U-300 SoloStar 300 80 unit (0.2667 mL) subcut DAILY 08/16/20 unit/mL (3 mL) subcutaneous 30 days #12 mL insulin pen (insulin glargine U-300 conc) vitamin E (dl, acetate) 180 mg 180 mg PO BID #60 caps 06/14/21 (400 unit) capsule docusate sodium 100 mg capsule 100 mg PO BID PRN constipation #30 02/15/22 (Colace) caps ondansetron 4 mg disintegrating 4 mg PO Q8H PRN nausea and 02/15/22 tablet vomiting #20 tabs oxycodone 5 mg tablet 5 mg PO BID PRN pain #10 tabs 02/15/22 sennosides 8.6 mg capsule (senna) 8.6 mg PO BEDTIME PRN constipation 02/15/22 #30 caps vitamin A palmitate 10,000 unit 10,000 unit PO DAILY #30 tabs 04/16/22 tablet zinc sulfate 50 mg zinc (220 mg) 50 mg PO DAILY #30 caps 04/16/22 capsule (Orazinc) furosemide 20 mg tablet 20 mg PO DAILY #30 tabs 04/28/22 spironolactone 100 mg tablet 100 mg PO DAILY #30 tabs 04/28/22 (Aldactone) Allergies Allergy/AdvReac Type Severity Reaction Status Date / Time ibuprofen [From MOTRIN] Allergy Unknown RASH Verified 04/28/22 12:04 penicillin V Allergy Unknown hives Verified 04/28/22 12:04 codeine Allergy Unknown Verified 04/28/22 12:04 Rx- listed on H&P Review of Systems Review of Systems: Pertinent positives and negatives as stated in HPI [facility] Past Medical History Source: nursing notes reviewed Medical History Acromegaly Asthma Diabetes type 2, uncontrolled Diabetic nephropathy associated with type 2 diabetes mellitus Dyslipidemia Elevated TSH Goiter 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 (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 Morbid obesity Non-toxic multinodular goiter AMY (obstructive sleep apnea) PCOS (polycystic ovarian syndrome) Surgical History Hx of colonoscopy Hx of endoscopy Family History Family History Father Unknown family medical history Mother Hx of type 1 diabetes mellitus Social History Social History Household Members: Spouse Alcohol intake: never Patient Tobacco Use Status: Former Tobacco user Quit Date: 7 yrs ago Advance Directives: No Patient : No Current occupational status: disabled 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 GENERAL: Chronically ill, in no acute distress. HEAD: Normocephalic/atraumatic EYES: PERRLA, EOMI EARS: Ext canals without abnormality OROPHARYNX: no oral lesions noted, posterior pharynx clear LUNGS: Normal breath sounds. No adventitious sounds or accessory muscle use. SpO2<95> CARDIOVASCULAR: Regular rate and rhythm without noted murmurs, no JVD but bilateral lower edema ABDOMEN: Soft, non-tender, but distended with bowel sounds. MUSCULOSKELETAL: No tenderness, deformities, or effusions noted on gross inspection. EXTREMITIES: No cyanosis, clubbing or edema; RIGHT KNEE: There is superficial scrape at the right knee without noted erythema and no deformity, on palpation over right ankle there is chronic edema 1+, no noted erythema or deformity, foot is warm. SKIN: Inspection of the skin reveals no rashes,+jaundice NEUROLOGIC: Alert and oriented x 3. Strength and sensation to light touch were grossly intact x 4. Medical Decision Making Medical Decision Making MDM Narrative: 46-year-old female who tripped and fell coming off of the shuttle, has superficial injuries, will obtain right ankle x-ray although doubt fracture and on my interpretation of the radiograph there is no acute fracture as I appreciate good mortise spacing, but will follow-up on radiology read, will apply Abhay wrap, patient will be discharged to that she can undergo her very important ultrasound-guided thoracentesis and patient denied any striking of the head or loss of consciousness bilateral upper extremities show no evidence of injury or deformity, abdomen is chronically distended due to underlying medical condition. She is otherwise discharged. Differential Diagnosis Please see the above discussion Lab Data Please see the above discussion Radiology Impression Radiologist Impression: On my interpretation there is no evidence to suggest fracture or acute dislocation. External Record Review External record reviewed: Outpatient record and Prior outpatient labs Discharge Plan Discharge Clinical Impression: Superficial abrasion, Ankle pain, right Patient Disposition: Home, Self-Care Instructions: Swollen Joint (ED) Additional Instructions: 1. Le nohemi de rohith para ir a mancilla iron de radiolog?a. 2. Mantenga la venda Abhay en mancilla lugar para ayudar y controlar el dolor, mantenga la extremidad elevada cuando sea posible y aplique hielo sobre la piel no expuesta. No dude en regresar a la seth de emergencias si experimenta alg?n empeoramiento de los s?ntomas o s?ntomas nuevos. 1. You are discharged to go to your radiology appointment. 2. Please keep the Abhay wrap in place to assist and pain control, keep extremity elevated when possible as well as applying ice to unexposed skin. Do not hesitate to return to the emergency room if you experience any worsening of symptoms or new symptoms. Prescriptions: No Action vitamin E (dl, acetate) 180 mg (400 unit) capsule 180 mg PO BID Qty: 60 3RF vitamin A palmitate 10,000 unit tablet 10,000 unit PO DAILY Qty: 30 6RF zinc sulfate [Orazinc] 50 mg zinc (220 mg) capsule 50 mg PO DAILY Qty: 30 4RF metoclopramide HCl [Reglan] 10 mg tablet 10 mg PO Q6H PRN (Reason: nausea and vomiting) Qty: 40 0RF Rx Instructions: take 1 tablet half an hour before meals docusate sodium [Colace] 100 mg capsule 100 mg PO BID PRN (Reason: constipation) Qty: 30 0RF ondansetron 4 mg tablet,disintegrating 4 mg PO Q8H PRN (Reason: nausea and vomiting) Qty: 20 0RF senna 8.6 mg capsule 8.6 mg PO BEDTIME PRN (Reason: constipation) Qty: 30 0RF oxycodone 5 mg tablet 5 mg PO BID PRN (Reason: pain) Qty: 10 0RF Rx Instructions: Partial Fill upon patient request. dicyclomine 10 mg capsule 10 mg PO BID amitriptyline 50 mg tablet 50 mg PO BEDTIME ondansetron HCl [Zofran] 4 mg tablet 4 mg PO Q8H ranitidine HCl 150 mg tablet PO DAILY (DME) FreeStyle Lite Strips Strip See Rx Instructions .ROUTE .MEDSUPPLY Qty: 10 Rx Instructions: test 3x a day (DME) lancets [FreeStyle Lancets] 28 gauge misc See Rx Instructions .ROUTE .MEDSUPPLY Qty: 100 Rx Instructions: test 3x a day aspirin [Adult Low Dose Aspirin] 81 mg tablet,delayed release (DR/EC) 81 mg PO DAILY loratadine 10 mg capsule 10 mg PO DAILY montelukast [Singulair] 10 mg tablet 10 mg PO BEDTIME albuterol sulfate [ProAir HFA] 90 mcg/actuation HFA aerosol inhaler 2 puff inhalation Q6H PRN (Reason: Wheezing) metformin 500 mg tablet 500 mg PO BID ipratropium-albuterol 0.5 mg-3 mg(2.5 mg base)/3 mL solution for nebulization 3 ml inhalation Q6-8H PRN (Reason: Wheezing) Flovent HFA 220 mcg/actuation HFA aerosol inhaler 2 puff inhalation BID cholecalciferol (vitamin D3) 50 mcg (2,000 unit) capsule 50 mcg PO DAILY Humalog KwikPen Insulin 200 unit/mL (3 mL) insulin pen See Rx Instructions subcut TID 30 Days Qty: 12 6RF Rx Instructions: 26 units if blood sugar less than 200 mg/dL and 30 units is more than 200 mg/dL subcut 3 times a day; Toujeo Max U-300 SoloStar 300 unit/mL (3 mL) insulin pen 80 unit subcut DAILY 30 Days Qty: 12 6RF gabapentin 300 mg capsule 300 mg PO BEDTIME ipratropium bromide 21 mcg (0.03 %) spray,non-aerosol 2 spray intranasal BID levothyroxine 50 mcg tablet 50 mcg PO DAILY potassium chloride 20 mEq tablet,ER particles/crystals 20 meq PO DAILY vitamin A 10,000 unit capsule 1 cap PO DAILY Trulicity 1.5 mg/0.5 mL pen injector subcut QWEEK spironolactone [Aldactone] 100 mg tablet 100 mg PO DAILY Qty: 30 1RF furosemide 20 mg tablet 20 mg PO DAILY Qty: 30 2RF Referrals: Radha Anne MD [Primary Care Provider] - Print Language: Ivorian
== END 2022-04-30 11:04 | disposition home or self-care (01) ==
PROVIDERS: Emergency Provider Student in an Organized Health Care Education/Training Program; PCP Family Medicine
DX: S90.511A Abrasion, right ankle, initial encounter (principal); W01.0XXA Fall on same level from slipping, tripping and stumbling without subsequent striking against object, initial encounter; Y93.9 Activity, unspecified; Y92.9 Unspecified place or not applicable; Y99.9 Unspecified external cause status; Z79.899 Other long term (current) drug therapy; Z87.891 Personal history of nicotine dependence
CPT/HCPCS: 73610; 99283; 99284

== ENCOUNTER → 2022-04-30 11:43 | Day surgery (SDC) | payer MEDICAID, SELFPAY ==
[2022-04-30] VITALS (7 sets, daily range): BP systolic 77–86; BP diastolic 26–51; PULSE 100–103; RESP 10–15; O2SAT 92–97; BMI 55.7
--- NOTE | ~2022-04-30 | US_ITS ---
EXAMINATION: US-GUIDED PARACENTESIS CLINICAL INFORMATION: Nonalcoholic steatohepatitis with moderate ascites. COMPARISON: None TECHNIQUE: Following explaining ultrasound-guided abdominal paracentesis procedure, benefits and risk, a written consent was obtained. Patient was placed supine on ultrasound stretcher and preliminary ultrasound imaging was obtained. An optimal site was selected along the left mid quadrant and marked on the skin with a marker. The area marked was cleaned and draped in the usual sterile manner. 1% lidocaine was administered at the puncture site. Through a small skin incision, a 4 [place] Yueh catheter was inserted into the peritoneal space. After obtaining fluid return, stylet was withdrawn and catheter connected to vacuum bottle via connecting cannula. After obtaining all fluid and observing no fluid return, the catheter was withdrawn and complete hemostasis achieved at puncture site. Sterile dressing applied postprocedure. Patient tolerated procedure well. Patient was monitored by nursing during the exam. No conscious sedation given. FINDINGS: On preliminary ultrasound imaging, there is moderate to large ascites. No abnormality seen along the right abdominal wall or visualized liver. Patient had trauma of fall this morning and complained of right upper mid abdominal pain. Approximately 12 L of clear yellowish fluid was drained from the left lower quadrant. Patient developed low pressure in the recovery room. IV saline 5 mL was started and patient was referred to ER as initially patient had come through the ER. US/US paracentesis abd w/image IMPRESSION: Successful ultrasound-guided therapeutic paracentesis performed with approximately 12 L of clear yellowish fluid drained from the left lower quadrant.
[2022-04-30 11:46] LABS: MANUAL DIFF FLAG NO
[2022-04-30 11:49] LABS: Basophils Absolute Auto 0.1 X10*3/uL (0.0-0.2); Basophils Percent Auto 0.7 % (0-2); Eosinophils Absolute Auto 0.1 X10*3/uL (0.0-0.4); Eosinophils Percent Auto 1.6 % (0-4); Hematocrit 36.7 % (37.0-47.0); Hemoglobin 12.2 g/dl (12.0-16.0); Imm Gran Abs Auto 0.02 X10*3/uL (0.00-0.03); Imm Gran Pct Auto 0.3 % (0.0-0.4); Lymphocytes Absolute Auto 0.7 X10*3/uL (1.2-4.9); Lymphocytes Percent Auto 10.5 % (20-40); Mean Corpuscular HGB Conc 33.2 g/dl (31.0-35.0); Mean Corpuscular Hemoglobin 29.8 pg (27.0-33.0); Mean Corpuscular Volume 89.5 fL (80.0-98.0); Mean Platelet Volume 10.1 fL (9.4-12.3); Monocytes Absolute Auto 0.9 X10*3/uL (0.1-1.2); Monocytes Percent Auto 12.2 % (2-11); Neutrophils Absolute Auto 5.2 x10*3/uL (2.0-8.3); Neutrophils Percent Auto 74.7 % (45-73); Red Cell Distribution Width 17.7 % (11.0-16.0)
[2022-04-30 11:51] LABS: Platelet Count 85 X10*3/uL (160-400)
[2022-04-30 11:52] LABS: INTERNATIONAL NORM RATIO 1.8 (0.9-1.1); Prothrombin Time 21.6 SEC (10.0-13.1)
[2022-04-30 12:04] LABS: Glucose, Whole Blood 125 mg/dL (60-115)
[2022-04-30 12:08] LABS: Anion Gap 11 (12-20); Blood Urea Nitrogen 8 mg/dL (9-16); Carbon Dioxide 23 mmol/L (22-29); Chloride 95 mmol/L (96-108); Creatinine Clr Calc Pharmacy 9.5; Estimated Glomerular Filt Rate > 60; Potassium 4.3 mmol/L (3.3-5.1); Sodium 125 mmol/L (135-145)
--- NOTE | 2022-04-30 12:43 | PC.NURSE ---
NO ABD BRUISING NOTED TO WHOLE ABDOMEN.
[2022-04-30] MEDS: Lidocaine HCl 1 % MPF 5 ML VIAL 10 ML SUBCUT (14:51)
== END ==
PROVIDERS: PCP Family Medicine; Visit Provider Radiology Diagnostic Radiology
DX: K75.81 Nonalcoholic steatohepatitis (NASH) (principal); R18.8 Other ascites; K74.60 Unspecified cirrhosis of liver; E11.21 Type 2 diabetes mellitus with diabetic nephropathy; Z79.4 Long term (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 insulin; E78.5 Hyperlipidemia, unspecified; E66.01 Morbid (severe) obesity due to excess calories; Z68.43 Body mass index [BMI] 50.0-59.9, adult; G47.33 Obstructive sleep apnea (adult) (pediatric); J45.909 Unspecified asthma, uncomplicated; E22.0 Acromegaly and pituitary gigantism; Z88.0 Allergy status to penicillin; Z88.8 Allergy status to other drugs, medicaments and biological substances; Z87.891 Personal history of nicotine dependence
CPT/HCPCS: 36415; 49083; 80051; 82565; 82947; 84520; 85025; 85610; 85730

== ENCOUNTER 2022-04-30 16:34 | Inpatient (IN) | payer MEDICAID, SELFPAY ==
--- NOTE | ~2022-04-30 | XR_ITS ---
EXAMINATION: XR CHEST CLINICAL INFORMATION: Hypoxia COMPARISON: 09/12/2018 TECHNIQUE: Frontal view of the chest was obtained. FINDINGS: The lungs are markedly hypoinflated. Heart size normal. No evidence of CHF. Bibasilar atelectasis is present. No large effusions are seen. Superimposed infiltrate cannot be excluded especially at the right lung base. XR/XR chest 1V IMPRESSION: Hypoinflated lungs with bibasilar atelectasis. Superimposed infiltrate cannot be excluded.
--- NOTE | ~2022-04-30 | CT_ITS ---
EXAMINATION: CT CHEST WITHOUT CONTRAST CLINICAL INFORMATION: Short of breath. Hypoxia. Pain COMPARISON: Radiograph 04/30/2022 TECHNIQUE: Multidetector volumetric CT imaging of the chest was done. Axial MIP volume rendering provided. Sagittal and coronal reformatted images were obtained. This CT examination was performed using dose optimization techniques as appropriate, variously including the following: *Automated exposure control *Adjustment of mA and/or kV according to patient size (this includes techniques or standardized protocols for targeted exams where dose is matched to indication/reason for exam; i.e. extremities or head) *Use of iterative reconstruction technique DLP: 555 mGy-cm FINDINGS: COMMUNICATIONS SUPERVISOR: Left basilar opacities are again noted. LUNGS: The central airways are patent. Bandlike opacities are seen in both lower lobes. More patchy opacity in the lingula noted. No pneumothorax. MEDIASTINUM: Normal heart size. No pericardial effusion. No mediastinal lymphadenopathy. CORONARY ARTERY CALCIFICATION: None visualized on this study. PLEURA: There is no pleural effusion. No pleural mass or thickening. AXILLA: No lymphadenopathy. Prominent inflammation of the chest wall with anasarca. UPPER ABDOMEN: Cholelithiasis. Small volume ascites. OSSEOUS STRUCTURES: No acute or suspicious osseous abnormality. Mild degenerative changes throughout. CT/CT chest wo IV con IMPRESSION: 1. Bandlike opacities in both lower lobes with more patchy opacity in the lingula. This could represent atelectasis or pneumonia. 2. Anasarca with prominent inflammation of the chest wall. 3. Cholelithiasis. 4. Small volume ascites in the upper abdomen. Fleischner guidelines were followed.
--- NOTE | ~2022-04-30 | CT_ITS ---
EXAMINATION: CT ABDOMEN AND PELVIS WITHOUT CONTRAST CLINICAL INFORMATION: s/p fall and abd injury r side pain and ecchymosis COMPARISON: 03/11/2022 TECHNIQUE: Multidetector volumetric imaging was performed from the superior aspect of the liver through the pubic symphysis. Sagittal and coronal reformatted images were obtained on the technologist's workstation. This CT examination was performed using dose optimization techniques as appropriate, variously including the following: *Automated exposure control *Adjustment of mA and/or kV according to patient size (this includes techniques or standardized protocols for targeted exams where dose is matched to indication/reason for exam; i.e. extremities or head) *Use of iterative reconstruction technique DLP: 1723 mGy-cm FINDINGS: LUNG BASES: Segmental atelectasis is present at the posterior basilar segment of the right lower lobe. More subsegmental atelectasis is present in both lower lobes, the lingula, and the right lobe. No consolidation. Heart is normal in size. LIVER, GALLBLADDER, AND BILIARY TREE: The liver appears shrunken and nodular, consistent with cirrhosis. Small dystrophic calcification at the posterior aspect of the hepatic dome. No hepatic lesions are identified on this unenhanced study. No appreciable biliary ductal dilatation. Innumerable calcified gallstones are evident in the gallbladder. No appreciable extrahepatic biliary ductal dilatation. No appreciable gallbladder wall thickening on these images. There is a small amount of pericholecystic fluid, though this is likely related to the more notable perihepatic ascites. PANCREAS: Unremarkable. SPLEEN: Enlarged, measuring 16.5 cm in length. Small granulomatous calcification. No focal lesions. ADRENAL GLANDS: Unremarkable. KIDNEYS AND URETERS: The kidneys are normal in size, shape, and attenuation. No hydronephrosis, hydroureter, or calculi seen. No perinephric stranding. BLADDER: Unremarkable. GASTROINTESTINAL TRACT: Stomach, small bowel, and colon are normal in caliber. No bowel wall thickening or surrounding inflammatory changes. Appendix is normal. Small volume of fluid is present throughout the abdomen. Mesenteric fat stranding is likely related to the generalized anasarca. ABDOMINAL WALL: Anasarca. No hernia is identified. LYMPH NODES: Multiple pericardial lymph nodes are identified measuring up to 1.2 cm in short axis, likely related to the hepatocellular disease. No additional adenopathy. VASCULAR: Calcific atherosclerosis in the abdominal aorta. No aneurysmal dilatation. Possible portosystemic collaterals are not well seen on the absence of intravenous contrast. PELVIC VISCERA: The uterus and adnexa are unremarkable. OSSEOUS STRUCTURES: No appreciable rib fractures. There is multilevel degenerative spondylosis in the thoracolumbar spine, most pronounced at L4-5 and L5-S1. Prominent posterior disc osteophyte complexes are noted throughout the lumbar spine, producing significant central canal and neural foraminal encroachment. CT/CT abdomen pelvis wo IV con IMPRESSION: 1. No acute abnormalities are identified in the abdomen and pelvis. No rib fractures are identified 2. Hepatic cirrhosis with associated splenomegaly and small volume ascites. 3. Cholelithiasis without evidence of acute cholecystitis. 4. Generalized anasarca. 5. Multilevel degenerative spondylosis in the thoracolumbar spine. Fleischner guidelines were followed.
[2022-04-30 16:36] VITALS: BP 86/63; PULSE 100; RESP 18; O2SAT 97; BMI 55.7
[2022-04-30 16:40] VITALS: BP 93/50
[2022-04-30 16:44] VITALS: BP 96/60; PULSE 100; RESP 16; TEMP 36.6; O2SAT 96
--- NOTE | 2022-04-30 16:49 | ED_ITS ---
HPI - General Adult General Chief complaint: General Medical Stated complaint: right ankle pain Source: patient Mode of arrival: ambulatory Limitations: no limitations History of Present Illness HPI narrative: 46-year-old female came into the hospital this morning for abdominal paracentesis on her way to the hospital patient had a mechanical fall as she tripped landed on her abdomen and causing right ankle pain. Patient had a negative right ankle x-ray the patient was sent to paracentesis had 12 L of clear fluid removed by paracentesis after procedure patient's blood pressure was low and sent back to the ED patient now is complaining of right-sided abdominal pain from after the fall in the morning. Related Data Home Medications Medication Instructions Recorded Confirmed albuterol sulfate 90 mcg/actuation 2 puff inhalation Q6H PRN Wheezing 08/16/20 08/15/21 aerosol inhaler (ProAir HFA) amitriptyline 50 mg tablet 50 mg PO BEDTIME 08/16/20 08/15/21 aspirin 81 mg tablet,delayed 81 mg PO DAILY 08/16/20 08/15/21 release (Adult Low Dose Aspirin) blood sugar diagnostic (FreeStyle #10 ea 08/16/20 08/16/20 Lite Strips) cholecalciferol (vitamin D3) 50 50 mcg PO DAILY 08/16/20 08/15/21 mcg (2,000 unit) capsule dicyclomine 10 mg capsule 10 mg PO BID 08/16/20 08/15/21 fluticasone propionate 220 2 puff inhalation BID 08/16/20 08/15/21 mcg/actuation HFA aerosol inhaler (Flovent HFA) ipratropium 0.5 mg-albuterol 3 mg 3 ml inhalation Q6-8H PRN Wheezing 08/16/20 08/15/21 (2.5 mg base)/3 mL nebulization soln lancets 28 gauge (FreeStyle #100 ea 08/16/20 08/16/20 Lancets) loratadine 10 mg capsule 10 mg PO DAILY 08/16/20 08/15/21 metformin 500 mg tablet 500 mg PO BID 08/16/20 08/15/21 montelukast 10 mg tablet 10 mg PO BEDTIME 08/16/20 08/15/21 (Singulair) ondansetron HCl 4 mg tablet 4 mg PO Q8H 08/16/20 08/16/20 (Zofran) ranitidine HCl 150 mg tablet mg PO DAILY 08/16/20 08/16/20 gabapentin 300 mg capsule 300 mg PO BEDTIME pain 11/04/21 ipratropium bromide 21 mcg (0.03 2 spray intranasal BID 11/04/21 %) nasal spray levothyroxine 50 mcg tablet 50 mcg PO DAILY 11/04/21 potassium chloride 20 mEq 20 meq PO DAILY 11/04/21 tablet,extended release(part/cryst) dulaglutide 1.5 mg/0.5 mL mg subcut QWEEK 04/28/22 subcutaneous pen injector (Trulicity) vitamin A 10,000 unit capsule 1 cap PO DAILY 04/28/22 Previous Rx's Medication Instructions Recorded metoclopramide HCl 10 mg tablet 10 mg PO Q6H PRN nausea and 03/26/20 (Reglan) vomiting #40 tabs Humalog KwikPen Insulin 200 See Rx Instructions subcut TID 30 08/16/20 unit/mL (3 mL) subcutaneous days #12 mL (insulin lispro) Toujeo Max U-300 SoloStar 300 80 unit (0.2667 mL) subcut DAILY 08/16/20 unit/mL (3 mL) subcutaneous 30 days #12 mL insulin pen (insulin glargine U-300 conc) vitamin E (dl, acetate) 180 mg 180 mg PO BID #60 caps 06/14/21 (400 unit) capsule docusate sodium 100 mg capsule 100 mg PO BID PRN constipation #30 02/15/22 (Colace) caps ondansetron 4 mg disintegrating 4 mg PO Q8H PRN nausea and 02/15/22 tablet vomiting #20 tabs oxycodone 5 mg tablet 5 mg PO BID PRN pain #10 tabs 02/15/22 sennosides 8.6 mg capsule (senna) 8.6 mg PO BEDTIME PRN constipation 02/15/22 #30 caps vitamin A palmitate 10,000 unit 10,000 unit PO DAILY #30 tabs 04/16/22 tablet zinc sulfate 50 mg zinc (220 mg) 50 mg PO DAILY #30 caps 04/16/22 capsule (Orazinc) furosemide 20 mg tablet 20 mg PO DAILY #30 tabs 04/28/22 spironolactone 100 mg tablet 100 mg PO DAILY #30 tabs 04/28/22 (Aldactone) Allergies Allergy/AdvReac Type Severity Reaction Status Date / Time ibuprofen [From MOTRIN] Allergy Intermediate RASH Verified 04/30/22 11:52 penicillin V Allergy Mild hives Verified 04/30/22 11:52 codeine Allergy Unknown Verified 04/28/22 12:04 Rx- listed on H&P Review of Systems Review of Systems: All other systems are reviewed and are negative Constitutional: Reports as per HPI and Reports no additional constitutional complaints Eyes: Reports as per HPI and Reports no additional eye complaints Reports system reviewed and no additional complaints, except as documented Cardiovascular: Reports as per HPI and Reports no additional cardiovascular complaints Respiratory: Reports as per HPI and Reports no additional respiratory complaints Gastrointestinal: Reports as per HPI and Reports no additional gastrointestinal complaints Genitourinary: Reports no additional female genitourinary complaints Musculoskeletal: Reports no additional musculoskeletal complaints Skin/Breast: Reports system reviewed and no additional complaints, except as docu Psychiatric: Reports no additional psychiatric complaints Endocrine: Reports no additional endocrine complaints Hematologic/Lymphatic: Reports no additional hematologic/lymphatic complaints Allergic/Immunologic: Reports no additional allergic/immunologic complaints Reports system reviewed and no additional complaints, except as documented and Reports Abnormal speech present [facility] Past Medical History Medical History Acromegaly Asthma Diabetes type 2, uncontrolled Diabetic nephropathy associated with type 2 diabetes mellitus Dyslipidemia Elevated TSH Goiter HTN (hypertension) 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 (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 insulin Morbid obesity Non-toxic multinodular goiter AMY (obstructive sleep apnea) PCOS (polycystic ovarian syndrome) Surgical History Hx of colonoscopy Hx of endoscopy Family History Family History Father Unknown family medical history Mother Hx of type 1 diabetes mellitus Social History Social History Household Members: Spouse Alcohol intake: never Patient Tobacco Use Status: Former Tobacco user Quit Date: 7 yrs ago Advance Directives: No Advance Directives Information Provided: Yes Current occupational status: disabled 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 Blood pressure normal. Heart rate normal. Respiration rate normal. Temperature normal. Oxygen saturation normal. Appearance: Alert. Oriented X3. No acute distress. Head: Normal external exam. Normocephalic. Atraumatic. No Goodrich signs noted. No raccoon eyes noted Eyes: PERRLA. EOMI. Conjunctiva and sclera normal. Eyelids normal. ENT: TM's Normal. Pharynx normal. Uvula midline. Moist mucous membranes. No trismus noted. No drooling noted. No muffled voice noted. Neck: Normal inspection. Neck supple. FROM. No adenopathy. Thyroid Normal. No meningeal signs. No neck mass noted. CVS: Normal heart rate and rhythm. Heart sound normal. No murmurs noted. Pulses normal throughout. Respiratory: No respiratory distress. Painless inspiration. Breath sounds normal. No wheezes/rales/rhonchi noted. Chest nontender. No accessory muscle usage noted or decreased air movement noted. Abdomen: Soft, obese, a right-sided abdominal tenderness, no rebound tenderness, no guarding small area of ecchymosis to the right side of the abdomen.. Bowel sounds normal in all 4 quadrants. No distention noted. No organomegaly noted. No visible injury noted. Back: No CVA tenderness. Full range of motion noted. Skin: Skin warm and dry. Normal skin color. Normal skin turgor. No rashes/lesions/lacerations noted. Extremities: No lower extremity edema. Extremities exhibit normal range of motion. Extremities nontender. Neuro: Oriented X 3. Cranial nerve exam: II-XII are grossly intact No motor deficit. No sensory deficit. Reflexes normal. Course Course Course Narrative: 21:00: 46-year-old female with history of liver cirrhosis status post therapeutic abdominal paracentesis with 12 L of ascitic fluid came out patient came to the emergency room after the procedure for concern of hypotension, patient not in sepsis or in severe sepsis, patient also been hypoxic patient normally needs 3 L supplemental oxygen at nighttime. Admit the patient for albumin administration to support blood pressure. Medications Administered Discontinued Medications Generic Name Dose Route Start Last Admin Trade Name Serenity PRN Reason Stop Dose Admin Albumin Human 100 mls @ 100 mls/hr 04/30/22 16:41 04/30/22 17:04 Kedbumin 25 % IV 04/30/22 17:40 Not Given ONCE ONE Albumin Human 100 mls @ 100 mls/hr 04/30/22 17:00 04/30/22 17:57 Kedbumin 25 % IV 04/30/22 17:59 Infused ONCE ONE Infusion Medical Decision Making Differential Diagnosis Differential Diagnoses: The differential diagnosis associated with the presentation includes (Hypovolemia, hypotension, hypoxia.) Admission/Observation Consideration of admission/observation: Escalation of care including admission/observation considered Consult Healthcare Provider Management of the patient was discussed with: Hospitalist Lab Data MDM Lab Attestation statement: I reviewed the patient's lab results. 04/30/22 18:32 04/30/22 18:32 Labs: Lab Results 04/30/22 04/30/22 04/30/22 Range/Units 18:27 18:32 18:32 WBC 4.9 (4.8-10.8) X10*3/uL RBC 3.82 L (4.20-5.50) X10*6/uL Hgb 11.4 L (12.0-16.0) g/dl Hct 34.6 L (37.0-47.0) % MCV 90.6 (80.0-98.0) fL MCH 29.8 (27.0-33.0) pg MCHC 32.9 (31.0-35.0) g/dl RDW 17.9 H (11.0-16.0) % Plt Count 66 L (160-400) X10*3/uL MPV 10.2 (9.4-12.3) fL Immature Gran % (Auto) 0.2 (0.0-0.4) % Neut % (Auto) 72.2 (45-73) % Lymph % (Auto) 12.5 L (20-40) % Upton % (Auto) 13.3 H (2-11) % Eos % (Auto) 1.2 (0-4) % Baso % (Auto) 0.6 (0-2) % Lymph # (Auto) 0.6 L (1.2-4.9) X10*3/uL Upton # (Auto) 0.7 (0.1-1.2) X10*3/uL Eos # (Auto) 0.1 (0.0-0.4) X10*3/uL Baso # (Auto) 0.0 (0.0-0.2) X10*3/uL Abs Immat Gran (auto) 0.01 (0.00-0.03) X10*3/uL Absolute Neuts (auto) 3.5 (2.0-8.3) x10*3/uL Absolute Nucleated RBC 0.000 (0.0-0.012) X10*3/uL Nucleated RBC % (auto) 0.0 (0.0-0.2) /100WBC Sodium 129 L (135-145) mmol/L Potassium 4.5 (3.3-5.1) mmol/L Chloride 96 (96-108) mmol/L Carbon Dioxide 27 (22-29) mmol/L Anion Gap 11 L (12-20) BUN 8 L (9-16) mg/dL Creatinine 0.69 (0.5-1.4) mg/dL Estim Creat Clear Calc 142.5 Estimated GFR > 60 Random Glucose 123 H (60-115) mg/dL Calcium 8.2 L (8.4-10.2) mg/dL Total Bilirubin 4.1 H (0.0-1.0) mg/dL Direct Bilirubin 1.1 H (0.0-0.5) mg/dL AST 46 H (5-31) U/L ALT 21 (0-31) U/L Alkaline Phosphatase 95 (39-117) U/L Total Protein 6.4 L (6.5-8.0) g/dL Albumin 2.3 L (3.5-5.0) g/dL Lipase 31 (8-78) U/L Influenza Type A (PCR) NEGATIVE (Negative) Influenza Type B (PCR) NEGATIVE (Negative) RSV RNA Qual (PCR) NEGATIVE (Negative) SARS-CoV-2 RNA (RT-PCR) NEGATIVE (Negative) Independent Interpretation I performed an independent interpretation of an: CT Scan (Abdomen and pelvis: No acute pathology. No intra-abdominal trauma.) Radiology Impression Discussion of test interpretation with radiology: I have reviewed the radiologist's reading. Discharge Plan Discharge Clinical Impression: Acute hypotension, Hypoxia Patient Disposition: Admitted As Inpatient Prescriptions: No Action vitamin E (dl, acetate) 180 mg (400 unit) capsule 180 mg PO BID Qty: 60 3RF vitamin A palmitate 10,000 unit tablet 10,000 unit PO DAILY Qty: 30 6RF zinc sulfate [Orazinc] 50 mg zinc (220 mg) capsule 50 mg PO DAILY Qty: 30 4RF metoclopramide HCl [Reglan] 10 mg tablet 10 mg PO Q6H PRN (Reason: nausea and vomiting) Qty: 40 0RF Rx Instructions: take 1 tablet half an hour before meals docusate sodium [Colace] 100 mg capsule 100 mg PO BID PRN (Reason: constipation) Qty: 30 0RF ondansetron 4 mg tablet,disintegrating 4 mg PO Q8H PRN (Reason: nausea and vomiting) Qty: 20 0RF senna 8.6 mg capsule 8.6 mg PO BEDTIME PRN (Reason: constipation) Qty: 30 0RF oxycodone 5 mg tablet 5 mg PO BID PRN (Reason: pain) Qty: 10 0RF Rx Instructions: Partial Fill upon patient request. dicyclomine 10 mg capsule 10 mg PO BID amitriptyline 50 mg tablet 50 mg PO BEDTIME ondansetron HCl [Zofran] 4 mg tablet 4 mg PO Q8H ranitidine HCl 150 mg tablet PO DAILY (DME) FreeStyle Lite Strips Strip See Rx Instructions .ROUTE .MEDSUPPLY Qty: 10 Rx Instructions: test 3x a day (DME) lancets [FreeStyle Lancets] 28 gauge misc See Rx Instructions .ROUTE .MEDSUPPLY Qty: 100 Rx Instructions: test 3x a day aspirin [Adult Low Dose Aspirin] 81 mg tablet,delayed release (DR/EC) 81 mg PO DAILY loratadine 10 mg capsule 10 mg PO DAILY montelukast [Singulair] 10 mg tablet 10 mg PO BEDTIME albuterol sulfate [ProAir HFA] 90 mcg/actuation HFA aerosol inhaler 2 puff inhalation Q6H PRN (Reason: Wheezing) metformin 500 mg tablet 500 mg PO BID ipratropium-albuterol 0.5 mg-3 mg(2.5 mg base)/3 mL solution for nebulization 3 ml inhalation Q6-8H PRN (Reason: Wheezing) Flovent HFA 220 mcg/actuation HFA aerosol inhaler 2 puff inhalation BID cholecalciferol (vitamin D3) 50 mcg (2,000 unit) capsule 50 mcg PO DAILY Humalog KwikPen Insulin 200 unit/mL (3 mL) insulin pen See Rx Instructions subcut TID 30 Days Qty: 12 6RF Rx Instructions: 26 units if blood sugar less than 200 mg/dL and 30 units is more than 200 mg/dL subcut 3 times a day; Toujeo Max U-300 SoloStar 300 unit/mL (3 mL) insulin pen 80 unit subcut DAILY 30 Days Qty: 12 6RF gabapentin 300 mg capsule 300 mg PO BEDTIME ipratropium bromide 21 mcg (0.03 %) spray,non-aerosol 2 spray intranasal BID levothyroxine 50 mcg tablet 50 mcg PO DAILY potassium chloride 20 mEq tablet,ER particles/crystals 20 meq PO DAILY vitamin A 10,000 unit capsule 1 cap PO DAILY Trulicity 1.5 mg/0.5 mL pen injector subcut QWEEK spironolactone [Aldactone] 100 mg tablet 100 mg PO DAILY Qty: 30 1RF furosemide 20 mg tablet 20 mg PO DAILY Qty: 30 2RF
[2022-04-30] MEDS: Albumin Human 25 % 100 ML IV (16:57)
[2022-04-30 17:58] VITALS: BP 91/48; PULSE 99; RESP 18; O2SAT 92
[2022-04-30 18:38] LABS: MANUAL DIFF FLAG NO
[2022-04-30 18:39] LABS: Basophils Percent Auto 0.6 % (0-2); Eosinophils Absolute Auto 0.1 X10*3/uL (0.0-0.4); Eosinophils Percent Auto 1.2 % (0-4); Hematocrit 34.6 % (37.0-47.0); Hemoglobin 11.4 g/dl (12.0-16.0); Imm Gran Abs Auto 0.01 X10*3/uL (0.00-0.03); Imm Gran Pct Auto 0.2 % (0.0-0.4); Lymphocytes Absolute Auto 0.6 X10*3/uL (1.2-4.9); Lymphocytes Percent Auto 12.5 % (20-40); Mean Corpuscular HGB Conc 32.9 g/dl (31.0-35.0); Mean Corpuscular Hemoglobin 29.8 pg (27.0-33.0); Mean Corpuscular Volume 90.6 fL (80.0-98.0); Mean Platelet Volume 10.2 fL (9.4-12.3); Monocytes Absolute Auto 0.7 X10*3/uL (0.1-1.2); Monocytes Percent Auto 13.3 % (2-11); Neutrophils Absolute Auto 3.5 x10*3/uL (2.0-8.3); Neutrophils Percent Auto 72.2 % (45-73); Red Blood Count 3.82 X10*6/uL (4.20-5.50); Red Cell Distribution Width 17.9 % (11.0-16.0); White Blood Count 4.9 X10*3/uL (4.8-10.8)
[2022-04-30 18:58] LABS: Alanine Aminotransferase 21 U/L (0-31); Albumin Level 2.3 g/dL (3.5-5.0); Alkaline Phosphatase 95 U/L (39-117); Anion Gap 11 (12-20); Aspartate Amino Transferase 46 U/L (5-31); Bilirubin Direct 1.1 mg/dL (0.0-0.5); Bilirubin Total 4.1 mg/dL (0.0-1.0); Blood Urea Nitrogen 8 mg/dL (9-16); Calcium 8.2 mg/dL (8.4-10.2); Carbon Dioxide 27 mmol/L (22-29); Chloride 96 mmol/L (96-108); Creatinine Clr Calc Pharmacy 142.5; Estimated Glomerular Filt Rate > 60; Glucose Random 123 mg/dL (60-115); Lipase 31 U/L (8-78); Potassium 4.5 mmol/L (3.3-5.1); Sodium 129 mmol/L (135-145); Total Protein 6.4 g/dL (6.5-8.0)
[2022-04-30 19:02] LABS: Platelet Count 66 X10*3/uL (160-400)
[2022-04-30 19:20] LABS: Influenza A PCR NEGATIVE (Negative); Influenza B PCR NEGATIVE (Negative); Resp Syncy Virus RNA Qual PCR NEGATIVE (Negative); SARS COV2 PCR INHOUSE NEGATIVE (Negative)
[2022-04-30 20:55] VITALS: BP 106/60; PULSE 100; RESP 17; O2SAT 94
--- NOTE | 2022-04-30 21:37 | PM.IMHP ---
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 Patient reports that prior to coming to the hospital for her scheduled outpatient paracentesis she had a fall on her right side with subsequent pain in her right ankle and left upper abdomen right lower chest, she went for paracentesis, had 12 L of fluid drawn, and reports that she was hypotensive post thoracentesis therefore sent to the ED. Patient otherwise has no acute complaints of shortness of breath, no coughing, no fever no chills, no chest pain, no other abdominal pain, no nausea or vomiting, no diarrhea constipation, and no urinary symptoms On arrival to the ED patient noted to have a blood pressure of 77/35, patient received 2 doses of albumin with improvement in her blood pressure. Labs are significant for WBC count of 4.9, hemoglobin of 11.4, hematocrit 34.6, sodium of 129, patient has chronic hyponatremia , bilirubin of 4.1, which is slightly elevated and 3.5 in March 2022, albumin of 2.[address] as well as chest x-ray show no acute abnormality in the abdomen and pelvis, no rib fractures identified, hepatic cirrhosis with associated splenomegaly and small volume ascites, cholelithiasis without cholecystitis, generalized anasarca, patient will be admitted for further management Review of Systems Review of Systems: Yes all other systems are reviewed and are negative [facility] Medical History Acromegaly Asthma Diabetes type 2, uncontrolled Diabetic nephropathy associated with type 2 diabetes mellitus Dyslipidemia Elevated TSH Goiter HTN (hypertension) 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 Morbid obesity Non-toxic multinodular goiter AMY (obstructive sleep apnea) PCOS (polycystic ovarian syndrome) Family History Father Unknown family medical history Mother Hx of type 1 diabetes mellitus Surgical History Hx of colonoscopy Hx of endoscopy Social History Household Members: Spouse Alcohol intake: never Patient Tobacco Use Status: Former Tobacco user Quit Date: 7 yrs ago Smoked in Last 30 Days: No Use of substances other than those prescribed or required for medical reasons: No Advance Directives: No Advance Directives Information Provided: Yes Patient : No Current occupational status: disabled 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 Meds Allergies Allergy/AdvReac Type Severity Reaction Status Date / Time ibuprofen [From MOTRIN] Allergy Intermediate RASH Verified 04/30/22 11:52 penicillin V Allergy Mild hives Verified 04/30/22 11:52 codeine Allergy Unknown Verified 04/28/22 12:04 Rx- listed on H&P Active Medications: Current Medications Acetaminophen (Acetaminophen 325 Mg Tablet) 650 mg PO Q6H PRN PRN Reason: Pain, Mild (Pain Scale 1-3) Docusate Sodium (Docusate Sodium 100 Mg Capsule) 100 mg PO DAILY PRN PRN Reason: Constipation Ondansetron HCl (Ondansetron Hcl 4 Mg/2 Ml Vial) 4 mg IVPUSH Q8H PRN PRN Reason: Nausea and Vomiting Sodium Chloride (0.9 % Sodium Chloride Flush 3 Ml Syringe) 3 ml IVFLUSH [facility] Home Medications Medication Instructions Recorded Confirmed Last Taken Type albuterol sulfate 90 mcg/actuation 2 puff inhalation Q6H PRN Wheezing 08/16/20 04/30/22 09/24/21 History aerosol inhaler (ProAir HFA) blood sugar diagnostic (FreeStyle #10 ea 08/16/20 08/16/20 Unknown History Lite Strips) fluticasone propionate 220 2 puff inhalation BID 08/16/20 04/30/22 04/29/22 History mcg/actuation HFA aerosol inhaler (Flovent HFA) lancets 28 gauge (FreeStyle #100 ea 08/16/20 08/16/20 Unknown History Lancets) gabapentin 300 mg capsule 300 mg PO BEDTIME pain 11/04/21 04/30/22 04/29/22 History levothyroxine 50 mcg tablet 50 mcg PO DAILY 11/04/21 04/30/22 04/29/22 History dulaglutide 1.5 mg/0.5 mL 1.5 mg subcut MO 04/28/22 04/30/22 04/28/22 History subcutaneous pen injector (Trulicity) vitamin A 10,000 unit capsule 1 cap PO DAILY 04/28/22 04/30/22 04/29/22 History insulin glargine U-300 conc 300 80 unit subcut BEDTIME 04/30/22 04/30/22 04/29/22 History unit/mL (3 mL) subcutaneous pen (Toujeo Max U-300 SoloStar) insulin lispro 200 unit/mL (3 mL) 30 unit subcut BIDWM 04/30/22 04/30/22 04/29/22 History subcutaneous pen (Humalog KwikPen U-200 Insulin) Physical Exam Vital Signs and Narrative: Vital Signs: Last Vital Signs Temp 97.8 F 04/30/22 16:44 Pulse 100 04/30/22 20:55 Resp 17 04/30/22 20:55 BP 106/60 04/30/22 20:55 Pulse Ox 94 04/30/22 20:55 O2 Del Method 04/30/22 20:55 O2 Flow Rate 5 04/30/22 17:58 BMI result Body Mass Index 55.7 Const: General: cooperative and no acute distress Orientation/consciousness: patient oriented x3 Eyes: General: appearance normal, both eyes and all related structures Resp: Effort & Inspection: normal respiratory effort Auscultation: clear to auscultation bilaterally Cardio: Rate: regular rate Rhythm: regular rhythm GI: Other: obese abdomen, the site of paracentesis clean, no erythema or tenderness right upper quadrant tenderness with no rebound or guarding Palpation (GI): Soft to palpation Auscultation: normal bowel sounds Skin: General skin exam: no rashes or lesions noted Neuro: General: patient oriented x3 Cognition (Neuro): normal cognition Extrem: General: Yes normal to inspection and Yes no pedal edema Results Labs 04/30/22 18:32 04/30/22 18:32 Labs: Laboratory Results - last 24 hr 04/30/22 04/30/22 04/30/22 18:27 18:32 18:32 MCV 90.6 MCH 29.8 MCHC 32.9 RDW 17.9 H Plt Count 66 L MPV 10.2 Immature Gran % (Auto) 0.2 Neut % (Auto) 72.2 Lymph % (Auto) 12.5 L [place] % (Auto) 13.3 H Eos % (Auto) 1.2 Baso % (Auto) 0.6 Lymph # (Auto) 0.6 L [place] # (Auto) 0.7 Eos # (Auto) 0.1 Baso # (Auto) 0.0 Abs Immat Gran (auto) 0.01 Absolute Neuts (auto) 3.5 Absolute Nucleated RBC 0.000 Nucleated RBC % (auto) 0.0 Anion Gap 11 L Estim Creat Clear Calc 142.5 Estimated GFR > 60 Random Glucose 123 H Calcium 8.2 L Total Bilirubin 4.1 H Direct Bilirubin 1.1 H AST 46 H ALT 21 Alkaline Phosphatase 95 Total Protein 6.4 L Albumin 2.3 L Lipase 31 Influenza Type A (PCR) NEGATIVE Influenza Type B (PCR) NEGATIVE RSV RNA Qual (PCR) NEGATIVE SARS-CoV-2 RNA (RT-PCR) NEGATIVE Imaging Radiologist's Impressions: Impressions Abdomen/Pelvis CT 04/30/22 17:36 IMPRESSION: 1. No acute abnormalities are identified in the abdomen and pelvis. No rib fractures are identified 2. Hepatic cirrhosis with associated splenomegaly and small volume ascites. 3. Cholelithiasis without evidence of acute cholecystitis. 4. Generalized anasarca. 5. Multilevel degenerative spondylosis in the thoracolumbar spine. Fleischner guidelines were followed. Chest X-Ray 04/30/22 18:40 IMPRESSION: Hypoinflated lungs with bibasilar atelectasis. Superimposed infiltrate cannot be excluded. Assessment and Plan (1) Hypotension: Status: Acute (2) Status post abdominal paracentesis: Status: Acute Plan this is a 46-year-old female who presents to the hospital after undergoing paracentesis and developing hypotension # acute hypotension - likely secondary to large volume paracentesis - patient received 2 rounds of IV albumin with improvement - will admit for monitoring - hold antihypertensive drugs # abdominal pain - status post fall - fall appears to be mechanical - no evidence of abnormality on CT abdomen - pain control # diabetes - low-dose sliding scaleinsulin - diabetic diet - continue home insulin # chronic hyponatremia - likely secondary to hypervolemic hyponatremia - fluid restriction - follow BMP # Hypothyroidism - continue levothyroxine DVT prophylaxis: early ambulation Time Spent With Patient Time: Total time managing care of this patient today ____ minutes. Quality Stroke Does the patient have a stroke diagnosis?: No VTE Prior VTE?: No VTE Risk Level:: Medical - low VTE Device Contraindication: N/A - Device Ordered VTE Drug Contraindication: Treatment Not Indicated
--- NOTE | 2022-04-30 21:43 | PHA.MEDREC ---
Pharmacy Consult ? Medication Reconciliation Pharmacy has completed the medication reconciliation.
[2022-04-30] MEDS: Acetaminophen 325 MG TABLET 650 MG PO (22:05)
[2022-04-30 23:30] VITALS: BP 104/55; PULSE 98; RESP 20; O2SAT 96
[2022-05-01] VITALS (9 sets, daily range): BP systolic 94–113; BP diastolic 52–62; PULSE 91–102; RESP 15–20; TEMP 36.3–36.4; O2SAT 90–100
[2022-05-01] MEDS: Morphine Sulfate 4 MG/ML CARTRIDGE IVPUSH (02:41)
[2022-05-01] MEDS: ondansetron HCL 4 MG/2 ML VIAL IVPUSH ×2 (02:43→23:23)
--- NOTE | 2022-05-01 02:59 | PC.NURSE ---
Pt O2 sat drops into 80's periodically, upon adjustment of the probe, sat almost always goes back to 90's. Pt is on 5 LPM via NC, reports no trouble breathing or chest tightness at this time. Pt given morphine for pain, per JUN. Already looks much more comfortable. aware.
--- NOTE | 2022-05-01 04:46 | PC.NURSE ---
Pt O2 dropped to 86%. We moved the probe, sat pt up, no improvement. I placed a forehead probe on the pt, O2 showed at 96%. Respiratory and MD were notified.
--- NOTE | 2022-05-01 06:05 | PM.EVENT ---
Event Note Date of Service: 05/01/22 Event Note: patient was also noted to be hypoxic, with O2 dropping to the mid 80s, a CT of the chest was obtained which showed possible pneumonia, patient afebrile, has no leukocytosis, at this time will start on IV antibiotics, will obtain procalcitonin, oxygen as required Time Spent With Patient Time: Total time managing care of this patient today ____ minutes.
[2022-05-01] MEDS: cefTRIAXone sodium 1 GM in 0.9 % Sodium Chloride 50 ML IV (06:26)
[2022-05-01 06:30] LABS: MANUAL DIFF FLAG NO
[2022-05-01 06:40] LABS: Basophils Percent Auto 0.6 % (0-2); Eosinophils Absolute Auto 0.1 X10*3/uL (0.0-0.4); Eosinophils Percent Auto 1.1 % (0-4); Hematocrit 34.7 % (37.0-47.0); Hemoglobin 11.4 g/dl (12.0-16.0); Imm Gran Abs Auto 0.03 X10*3/uL (0.00-0.03); Imm Gran Pct Auto 0.5 % (0.0-0.4); Lymphocytes Absolute Auto 0.5 X10*3/uL (1.2-4.9); Lymphocytes Percent Auto 7.4 % (20-40); Mean Corpuscular HGB Conc 32.9 g/dl (31.0-35.0); Mean Corpuscular Hemoglobin 29.5 pg (27.0-33.0); Mean Corpuscular Volume 89.7 fL (80.0-98.0); Mean Platelet Volume 10.4 fL (9.4-12.3); Monocytes Absolute Auto 0.7 X10*3/uL (0.1-1.2); Monocytes Percent Auto 11.7 % (2-11); Neutrophils Percent Auto 78.7 % (45-73); Red Blood Count 3.87 X10*6/uL (4.20-5.50); Red Cell Distribution Width 17.7 % (11.0-16.0); White Blood Count 6.3 X10*3/uL (4.8-10.8)
[2022-05-01 06:46] LABS: Platelet Count 82 X10*3/uL (160-400)
[2022-05-01 06:48] LABS: Anion Gap 8 (12-20); Blood Urea Nitrogen 9 mg/dL (9-16); Calcium 7.9 mg/dL (8.4-10.2); Carbon Dioxide 26 mmol/L (22-29); Chloride 96 mmol/L (96-108); Creatinine Clr Calc Pharmacy 144.5; Estimated Glomerular Filt Rate > 60; Glucose Random 139 mg/dL (60-115); Potassium 4.3 mmol/L (3.3-5.1); Sodium 126 mmol/L (135-145)
[2022-05-01] MEDS: Azithromycin 500 MG in 0.9 % Sodium Chloride 250 ML 125 MG IV (06:50)
[2022-05-01 06:58] LABS: Lactic Acid 1.8 mmol/L (0.5-2.0)
[2022-05-01 07:24] LABS: Procalcitonin 0.08 ng/mL
--- NOTE | 2022-05-01 07:38 | PC.NURSE ---
Patient eating breakfast no distress noted remains on O 2 with good effect no distress noted no SOB or chest pain currently awaiting transfer to [facility]
[2022-05-01 08:24] LABS: Glucose, Whole Blood 166 mg/dL (60-115)
[2022-05-01] MEDS: Furosemide 20 MG TABLET PO (09:13)
[2022-05-01] MEDS: Levothyroxine Sodium 50 MCG TABLET PO (09:13)
[2022-05-01] MEDS: Spironolactone 25 MG TABLET 100 MG PO (09:13)
[2022-05-01] MEDS: Zinc Sulfate 220 MG CAPSULE PO (09:13)
[2022-05-01 13:17] LABS: Glucose, Whole Blood 149 mg/dL (60-115)
--- NOTE | 2022-05-01 14:15 | P.PNIM_ITS ---
Subjective Subjective Date of Service: 05/01/22 Interval History: Seen and evaluated this morning Blood pressure has improved but still running solved Oxygen level dropped earlier this morning , CXR concerning for pneumonia Reporting lower extremity swelling No other overnight events Review of Systems Review of Systems: Yes all other systems are reviewed and are negative Physical Exam Vital Signs: Vital Signs: Last Vital Signs Temp 97.5 F 05/01/22 14:13 Pulse 98 05/01/22 14:13 Resp 15 05/01/22 14:13 BP 96/55 L 05/01/22 14:13 Pulse Ox 100 05/01/22 14:13 O2 Del Method 05/01/22 14:13 O2 Flow Rate 3.5 05/01/22 14:13 BMI result Body Mass Index 55.7 Const: Other: Constitutional : Awake, interactive, not in distress Neck : Normal inspection, Supple Cardiovascular : RRR, no JVP, +1 bilateral lower extremity edema Respiratory : good bilateral air entry, no crackles, wheezes or rhonchi Gastrointestinal: soft, lax, Normal bowel sounds, Non tender Skin : Warm, Dry Neurological : Alert & oriented x3, No focal deficit Objective Data Active Medications Acetaminophen (Acetaminophen 325 Mg Tablet) 650 mg PO Q6H PRN PRN Reason: Pain, Mild (Pain Scale 1-3) Last Admin: 04/30/22 22:05 Dose: 650 mg Documented By: DOROTA Albuterol Sulfate (Albuterol Sulfate 90 Mcg 8 Gm Inhaler) 2 puff INHALE Q6H PRN PRN Reason: Wheezing Docusate Sodium (Docusate Sodium 100 Mg Capsule) 100 mg PO DAILY PRN PRN Reason: Constipation Fluticasone Propionate (Fluticasone Propionate 250 Mcg Blst.W.Dev) 2 puff INHALE RBID [facility] Last Admin: 05/01/22 11:46 Dose: Not Given Documented By: CHELI Non-Admin Reason: Med Not Available Furosemide (Furosemide 20 Mg Tablet) 20 mg PO DAILY [facility]; Protocol Last Admin: 05/01/22 09:13 Dose: 20 mg Documented By: CHELI Gabapentin (Gabapentin 300 Mg Capsule) 300 mg PO BEDTIME [facility] Ceftriaxone Sodium 1 gm/ (Sodium Chloride) 50 mls @ 100 mls/hr IV Q24H [facility] Last Infusion: 05/01/22 08:15 Dose: 0 mls/hr Documented By: CHELI Azithromycin 500 mg/ Sodium (Chloride) 250 mls @ 125 mls/hr IV Q24H [facility] Last Infusion: 05/01/22 09:07 Dose: 0 mls/hr Documented By: CHELI Insulin Glargine (Insulin Glargine,Hum.Rec.Anlog 100 Unit/Ml 10 Ml Vial) 65 unit SUBCUT BEDTIME [facility] Levothyroxine Sodium (Levothyroxine Sodium 50 Mcg Tablet) 50 mcg PO DAILY@0600 [facility] Last Admin: 05/01/22 09:13 Dose: 50 mcg Documented By: CHELI Ondansetron HCl (Ondansetron Hcl 4 Mg/2 Ml Vial) 4 mg IVPUSH Q8H PRN PRN Reason: Nausea and Vomiting Last Admin: 05/01/22 02:43 Dose: 4 mg Documented By: DOROTA Oxycodone HCl (Oxycodone Hcl Immed Release 5 Mg Tablet) 5 mg PO Q4H PRN PRN Reason: Pain, Severe (Pain Scale 7-10) Last Admin: 05/01/22 00:00 Dose: 5 mg Documented By: DOROTA Sodium Chloride (0.9 % Sodium Chloride Flush 3 Ml Syringe) 3 ml IVFLUSH QSHIFT [facility] Last Admin: 05/01/22 07:37 Dose: Not Given Documented By: ALYSSA Non-Admin Reason: Fluids running Spironolactone (Spironolactone 25 Mg Tablet) 100 mg PO DAILY [facility]; Protocol Last Admin: 05/01/22 09:13 Dose: 100 mg Documented By: CHELI Zinc Sulfate (Zinc Sulfate 220 Mg Capsule) 220 mg PO DAILY [facility] Last Admin: 05/01/22 09:13 Dose: 220 mg Documented By: CHELI Labs 05/01/22 06:01 05/01/22 06:01 Labs: Laboratory Results - last 24 hr 04/30/22 04/30/22 04/30/22 18:27 18:32 18:32 MCV 90.6 MCH 29.8 MCHC 32.9 RDW 17.9 H Plt Count 66 L MPV 10.2 Immature Gran % (Auto) 0.2 Neut % (Auto) 72.2 Lymph % (Auto) 12.5 L [place] % (Auto) 13.3 H Eos % (Auto) 1.2 Baso % (Auto) 0.6 Lymph # (Auto) 0.6 L [place] # (Auto) 0.7 Eos # (Auto) 0.1 Baso # (Auto) 0.0 Abs Immat Gran (auto) 0.01 Absolute Neuts (auto) 3.5 Absolute Nucleated RBC 0.000 Nucleated RBC % (auto) 0.0 Anion Gap 11 L Estim Creat Clear Calc 142.5 Estimated GFR > 60 POC Glucose Random Glucose 123 H Lactic Acid Calcium 8.2 L Total Bilirubin 4.1 H Direct Bilirubin 1.1 H AST 46 H ALT 21 Alkaline Phosphatase 95 Total Protein 6.4 L Albumin 2.3 L Lipase 31 Procalcitonin Influenza Type A (PCR) NEGATIVE Influenza Type B (PCR) NEGATIVE RSV RNA Qual (PCR) NEGATIVE SARS-CoV-2 RNA (RT-PCR) NEGATIVE 05/01/22 05/01/22 05/01/22 06:01 06:01 06:41 MCV 89.7 MCH 29.5 MCHC 32.9 RDW 17.7 H Plt Count 82 L MPV 10.4 Immature Gran % (Auto) 0.5 H Neut % (Auto) 78.7 H Lymph % (Auto) 7.4 L [place] % (Auto) 11.7 H Eos % (Auto) 1.1 Baso % (Auto) 0.6 Lymph # (Auto) 0.5 L [place] # (Auto) 0.7 Eos # (Auto) 0.1 Baso # (Auto) 0.0 Abs Immat Gran (auto) 0.03 Absolute Neuts (auto) 5.0 Absolute Nucleated RBC 0.000 Nucleated RBC % (auto) 0.0 Anion Gap 8 L Estim Creat Clear Calc 144.5 Estimated GFR > 60 POC Glucose Random Glucose 139 H Lactic Acid Calcium 7.9 L Total Bilirubin Direct Bilirubin AST ALT Alkaline Phosphatase Total Protein Albumin Lipase Procalcitonin 0.08 Influenza Type A (PCR) Influenza Type B (PCR) RSV RNA Qual (PCR) SARS-CoV-2 RNA (RT-PCR) 05/01/22 05/01/22 05/01/22 06:41 08:20 13:12 MCV MCH MCHC RDW Plt Count MPV Immature Gran % (Auto) Neut % (Auto) Lymph % (Auto) [place] % (Auto) Eos % (Auto) Baso % (Auto) Lymph # (Auto) [place] # (Auto) Eos # (Auto) Baso # (Auto) Abs Immat Gran (auto) Absolute Neuts (auto) Absolute Nucleated RBC Nucleated RBC % (auto) Anion Gap Estim Creat Clear Calc Estimated GFR POC Glucose 166 H 149 H Random Glucose Lactic Acid 1.8 Calcium Total Bilirubin Direct Bilirubin AST ALT Alkaline Phosphatase Total Protein Albumin Lipase Procalcitonin Influenza Type A (PCR) Influenza Type B (PCR) RSV RNA Qual (PCR) SARS-CoV-2 RNA (RT-PCR) Assessment and Plan (1) Acute respiratory failure with hypoxia: Status: Acute (2) Pneumonia: Status: Acute (3) Hypotension: Status: Acute (4) 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: Status: Acute (5) Anasarca: Status: Acute Plan this is a 46-year-old female who presents to the hospital after undergoing paracentesis and developing hypotension # Acute hypoxic respiratory failure 2/[address] scan of chest consistent with infiltrates Continue broad-spectrum antibiotics Pending final cultures Wean oxygen down as tolerated # hypotension secondary to cirrhosis and large volume paracentesis received 2 rounds of IV albumin with improvement hold antihypertensive drugs # anasarca 2/2 cirrhosis secondary to SERVIN The patient in fluid overload with anasarca-on CT scan Give more albumin with extra dose of Lasix Monitor intake and output Fluid restriction Continue spironolactone 100 # diabetes low-dose sliding scale insulin diabetic diet continue home insulin # chronic hyponatremia secondary to cirrhosis fluid restriction follow BMP # Hypothyroidism continue levothyroxine DVT prophylaxis: SCDs with thrombocytopenia Patient will need overnight inpatient hospital stay for treatment of acute hypoxic respiratory failure Time Spent With Patient Time: Total time managing care of this patient today ____ minutes. Quality Stroke Does the patient have a stroke diagnosis?: No VTE Prior VTE?: No VTE Risk Level:: Medical - low VTE Device Contraindication: N/A - Device Ordered VTE Drug Contraindication: Treatment Not Indicated
--- NOTE | 2022-05-01 14:58 | PC.NURSE ---
Addendum entered by Carmella Javier RN 05/01/22 15:11: per Dr Nguyen, given lasix 40mg IV Push after 1st dose of albumin Original Note: pt BP soft, 94/52 - pt has order for 40mg Lasix, as well as albumin order. tiger connect send to MD Nguyen to ? giving lasix after Albumin or to hold all together. awaiting orders.
[2022-05-01] MEDS: Albumin Human 25 % 100 ML IV ×2 (15:04→17:51)
--- NOTE | 2022-05-01 15:09 | MHC.CM.PN ---
Met with patient and monotypist in regards to discharge planning. Patient states she lives with her , ambulates independently and receives oxygen from [facility]. PCP verified. Patient denies having a HCP. Information provided. Patient not interested in completing one at this time. Obs notice explained and signed. Patient will need transport arranged when medically stable. Continue to monitor for d/c needs.
[2022-05-01 16:20] LABS: Glucose, Whole Blood 181 mg/dL (60-115)
[2022-05-01] MEDS: Furosemide 40 MG/4 ML VIAL IVPUSH (17:40)
[2022-05-01] MEDS: 0.9 % Sodium Chloride Flush 3 ML SYRINGE IVFLUSH ×3 (17:40→20:32)
[2022-05-01] MEDS: Fluticasone Propionate 250 MCG BLST.W.DEV 2 PUFF INHALE (20:12)
[2022-05-01 20:19] LABS: Glucose, Whole Blood 172 mg/dL (60-115)
[2022-05-01] MEDS: Gabapentin 300 MG CAPSULE PO (20:30)
[2022-05-01] MEDS: oxyCODONE HCl Immed Release 5 MG TABLET PO ×2 (20:30)
[2022-05-01] MEDS: Insulin Glargine,Hum.rec.anlog 100 UNIT/ML 10 ML VIAL 65 UNIT SUBCUT (20:31)
[2022-05-02] VITALS (8 sets, daily range): BP systolic 94–115; BP diastolic 50–65; PULSE 73–108; RESP 16–20; TEMP 36.1–36.7; O2SAT 93–97
[2022-05-02] MEDS: oxyCODONE HCl Immed Release 5 MG TABLET PO ×3 (01:26→20:18)
[2022-05-02] MEDS: cefTRIAXone sodium 1 GM in 0.9 % Sodium Chloride 50 ML IV (05:31)
[2022-05-02] MEDS: Levothyroxine Sodium 50 MCG TABLET PO (06:02)
[2022-05-02] MEDS: Azithromycin 500 MG in 0.9 % Sodium Chloride 250 ML 125 MG IV (06:02)
[2022-05-02 06:48] LABS: Hematocrit 32.6 % (37.0-47.0); Hemoglobin 10.4 g/dl (12.0-16.0); Mean Corpuscular HGB Conc 31.9 g/dl (31.0-35.0); Mean Corpuscular Hemoglobin 29.5 pg (27.0-33.0); Mean Corpuscular Volume 92.6 fL (80.0-98.0); Mean Platelet Volume 10.8 fL (9.4-12.3); Red Blood Count 3.52 X10*6/uL (4.20-5.50); Red Cell Distribution Width 17.9 % (11.0-16.0); White Blood Count 4.6 X10*3/uL (4.8-10.8)
[2022-05-02 06:51] LABS: Platelet Count 65 X10*3/uL (160-400)
[2022-05-02 06:52] LABS: Anion Gap 12 (12-20); Blood Urea Nitrogen 10 mg/dL (9-16); Carbon Dioxide 27 mmol/L (22-29); Chloride 97 mmol/L (96-108); Creatinine Clr Calc Pharmacy 140.4; Estimated Glomerular Filt Rate > 60; Glucose Random 137 mg/dL (60-115); Potassium 3.9 mmol/L (3.3-5.1); Sodium 132 mmol/L (135-145)
[2022-05-02 06:54] LABS: B Type Natriuretic Peptide 510 pg/mL (<100)
[2022-05-02 07:34] LABS: Glucose, Whole Blood 134 mg/dL (60-115)
[2022-05-02] MEDS: Spironolactone 25 MG TABLET 100 MG PO (08:31)
[2022-05-02] MEDS: Zinc Sulfate 220 MG CAPSULE PO (08:31)
[2022-05-02] MEDS: 0.9 % Sodium Chloride Flush 3 ML SYRINGE IVFLUSH ×3 (08:32→20:18)
--- NOTE | 2022-05-02 08:44 | MHC.CDI.CONC ---
CDI Concurrent Query Documentation Clarification: PHYSICIAN'S DOCUMENTATION REQUEST Date of Query: 05/02/22 0844 Patient Name: Ema Aguilar Admit Date: 04/30/22 Dear Doctor, A review of the medical record indicates additional documentation may be needed. Please review below and update the documentation accordingly. Clinical Indicators: Is there a diagnosis that correlates with these lab findings: Risk Factors/Clinical Indicators/Treatments LABS: albumin 2.3 L Given 2 doses of albumin with improvement in BP. Based on the above, could you clarify in the Progress Notes the appropriate diagnosis, if significant, that supports the above abnormalities and additional evaluation, monitoring, and/or treatment rendered: Hypoalbuminemia or other etiology of lab findings Other (please specify) Unable to determine Use of terms such as suspected, likely, concern for, or probable (associated with a specific diagnosis that is being evaluated, monitored, or treated as if it exists) are acceptable and can be coded in the inpatient setting, when documented at the time of discharge. Thank you, Lanny Byrne [facility], CDIS Extension: [phone] Please use your independent medical judgment in providing your response. THIS QUERY IS PART OF THE PERMANENT MEDICAL RECORD Provider Response: Other Other Diagnosis: Hypoalbuminemia
[2022-05-02] MEDS: Fluticasone Propionate 250 MCG BLST.W.DEV 2 PUFF INHALE ×2 (09:04→20:39)
[2022-05-02] MEDS: ondansetron HCL 4 MG/2 ML VIAL IVPUSH (09:19)
[2022-05-02] MEDS: Furosemide 40 MG/4 ML VIAL IVPUSH (10:15)
--- NOTE | 2022-05-02 11:16 | MHC.CM.PN ---
CURRENTLY WEANING O2 AND PLAN TO DC HOME - SELF CARE BY THURSDAY
[2022-05-02 11:45] LABS: Glucose, Whole Blood 162 mg/dL (60-115)
[2022-05-02] MEDS: Albumin Human 25 % 100 ML IV (12:49)
--- NOTE | 2022-05-02 14:38 | HO.PM.IMPN ---
Subjective Subjective Date of Service: 05/02/22 Interval History: Seen and evaluated this morning Blood pressure has improved, runs on soft side weaning down O2 supplement Ankle pain and swelling No other overnight events Review of Systems Review of Systems: Yes all other systems are reviewed and are negative Physical Exam Vital Signs: Vital Signs: Last Vital Signs Temp 96.9 F 05/02/22 08:00 Pulse 85 05/02/22 11:33 Resp 18 05/02/22 09:06 BP 94/50 L 05/02/22 08:00 Pulse Ox 95 05/02/22 08:00 O2 Del Method 05/02/22 08:00 O2 Flow Rate 2 05/02/22 08:00 BMI result Body Mass Index 55.7 Const: Other: Constitutional : Awake, interactive, not in distress Neck : Normal inspection, Supple Cardiovascular : RRR, no JVP, +1 bilateral lower extremity edema Respiratory : good bilateral air entry, no crackles, wheezes or rhonchi Gastrointestinal: soft, lax, Normal bowel sounds, Non tender Skin : Warm, Dry Extremities: Ankle in dressing, no drainage noted Neurological : Alert & oriented x3, No focal deficit Objective Data Active Medications Acetaminophen (Acetaminophen 325 Mg Tablet) 650 mg PO Q6H PRN PRN Reason: Pain, Mild (Pain Scale 1-3) Last Admin: 04/30/22 22:05 Dose: 650 mg Documented By: DOROTA Albuterol Sulfate (Albuterol Sulfate 90 Mcg 8 Gm Inhaler) 2 puff INHALE Q6H PRN PRN Reason: Wheezing Docusate Sodium (Docusate Sodium 100 Mg Capsule) 100 mg PO DAILY PRN PRN Reason: Constipation Fluticasone Propionate (Fluticasone Propionate 250 Mcg Blst.W.Dev) 2 puff INHALE RBID [facility] Last Admin: 05/02/22 09:04 Dose: 2 puff Documented By: ELIZABET Furosemide (Furosemide 40 Mg/4 Ml Vial) 40 mg IVPUSH DAILY [facility]; Protocol Last Admin: 05/02/22 10:15 Dose: 40 mg Documented By: NORMA Gabapentin (Gabapentin 300 Mg Capsule) 300 mg PO BEDTIME [facility] Last Admin: 05/01/22 20:30 Dose: 300 mg Documented By: VERONICA Ceftriaxone Sodium 1 gm/ (Sodium Chloride) 50 mls @ 100 mls/hr IV Q24H [facility] Last Infusion: 05/02/22 06:11 Dose: 0 mls/hr Documented By: VERONICA Azithromycin 500 mg/ Sodium (Chloride) 250 mls @ 125 mls/hr IV Q24H [facility] Last Infusion: 05/02/22 08:42 Dose: 0 mls/hr Documented By: NORMA Insulin Glargine (Insulin Glargine,Hum.Rec.Anlog 100 Unit/Ml 10 Ml Vial) 65 unit SUBCUT BEDTIME [facility] Last Admin: 05/01/22 20:31 Dose: 65 unit Documented By: VERONICA Levothyroxine Sodium (Levothyroxine Sodium 50 Mcg Tablet) 50 mcg PO DAILY@0600 [facility] Last Admin: 05/02/22 06:02 Dose: 50 mcg Documented By: VERONICA Ondansetron HCl (Ondansetron Hcl 4 Mg/2 Ml Vial) 4 mg IVPUSH Q8H PRN PRN Reason: Nausea and Vomiting Last Admin: 05/02/22 09:19 Dose: 4 mg Documented By: NORMA Oxycodone HCl (Oxycodone Hcl Immed Release 5 Mg Tablet) 5 mg PO Q4H PRN PRN Reason: Pain, Severe (Pain Scale 7-10) Last Admin: 05/02/22 08:31 Dose: 5 mg Documented By: NORMA Sodium Chloride (0.9 % Sodium Chloride Flush 3 Ml Syringe) [facility] Last Admin: 05/02/22 08:32 Dose: 3 ml Documented By: NORMA Spironolactone (Spironolactone 25 Mg Tablet) 100 mg PO DAILY [facility]; Protocol Last Admin: 05/02/22 08:31 Dose: 100 mg Documented By: NORMA Zinc Sulfate (Zinc Sulfate 220 Mg Capsule) 220 mg PO DAILY [facility] Last Admin: 05/02/22 08:31 Dose: 220 mg Documented By: NORMA Labs 05/02/22 05:41 05/02/22 05:41 Labs: Laboratory Results - last 24 hr 05/01/22 05/01/22 05/02/22 16:16 20:00 05:41 MCV 92.6 MCH 29.5 MCHC 31.9 RDW 17.9 H Plt Count 65 L MPV 10.8 Absolute Nucleated RBC 0.000 Nucleated RBC % (auto) 0.0 Anion Gap Estim Creat Clear Calc Estimated GFR POC Glucose 181 H 172 H Random Glucose Calcium B-Natriuretic Peptide 05/02/22 05/02/22 05/02/22 05:41 05:41 07:28 MCV MCH MCHC RDW Plt Count MPV Absolute Nucleated RBC Nucleated RBC % (auto) Anion Gap 12 Estim Creat Clear Calc 140.4 Estimated GFR > 60 POC Glucose 134 H Random Glucose 137 H Calcium 8.0 L B-Natriuretic Peptide 510 H 05/02/22 11:38 MCV MCH MCHC RDW Plt Count MPV Absolute Nucleated RBC Nucleated RBC % (auto) Anion Gap Estim Creat Clear Calc Estimated GFR POC Glucose 162 H Random Glucose Calcium B-Natriuretic Peptide Microbiology Microbiology Results: Microbiology 05/01/22 06:41 Blood Culture - Preliminary Blood - Venous No growth after 24 hours. 05/01/22 06:41 Blood Culture - Preliminary Blood - Venous No growth after 24 hours. Assessment and Plan (1) Anasarca: Status: Acute (2) Pneumonia: Status: Acute (3) Acute respiratory failure with hypoxia: Status: Acute Plan this is a 46-year-old female who presents to the hospital after undergoing paracentesis and developing hypotension # Acute hypoxic respiratory failure 2/[address] scan of chest consistent with infiltrates Continue broad-spectrum antibiotics Pending final cultures Wean oxygen down as tolerated # hypotension secondary to cirrhosis and large volume paracentesis received 2 rounds of IV albumin with improvement hold antihypertensive drugs # anasarca 2/2 cirrhosis secondary to SERVIN The patient in fluid overload with anasarca-on CT scan Give more albumin with extra dose of Lasix Monitor intake and output Fluid restriction Continue spironolactone 100 # diabetes low-dose sliding scale insulin diabetic diet continue home insulin # chronic hyponatremia secondary to cirrhosis fluid restriction follow BMP # Hypothyroidism continue levothyroxine # Rt ankle pain No fracture on images pain control PT eval DVT prophylaxis: SCDs with thrombocytopenia Patient will need overnight inpatient hospital stay for treatment of acute hypoxic respiratory failure Time Spent With Patient Time: Total time managing care of this patient today ____ minutes. Quality Stroke Does the patient have a stroke diagnosis?: No VTE Prior VTE?: No VTE Risk Level:: Medical - low VTE Device Contraindication: N/A - Device Ordered VTE Drug Contraindication: Treatment Not Indicated
[2022-05-02] MEDS: Albuterol Sulfate 90 MCG 8 GM INHALER 2 PUFF INHALE (15:24)
[2022-05-02] MEDS: Gabapentin 300 MG CAPSULE PO (20:18)
[2022-05-02 21:31] LABS: Glucose, Whole Blood 159 mg/dL (60-115)
[2022-05-02] MEDS: Insulin Glargine,Hum.rec.anlog 100 UNIT/ML 10 ML VIAL 65 UNIT SUBCUT (21:42)
[2022-05-03 03:44] VITALS: BP 116/59; PULSE 100; RESP 17; TEMP 36.5; O2SAT 98
[2022-05-03] MEDS: cefTRIAXone sodium 1 GM in 0.9 % Sodium Chloride 50 ML IV (05:40)
[2022-05-03] MEDS: Levothyroxine Sodium 50 MCG TABLET PO (05:41)
[2022-05-03] MEDS: Azithromycin 500 MG in 0.9 % Sodium Chloride 250 ML 125 MG IV (06:40)
[2022-05-03 07:07] VITALS: BP 115/58; PULSE 102; RESP 19; TEMP 36.4; O2SAT 97
[2022-05-03 07:07] LABS: B Type Natriuretic Peptide 564 pg/mL (<100)
[2022-05-03 07:13] LABS: Anion Gap 9 (12-20); Blood Urea Nitrogen 9 mg/dL (9-16); Calcium 8.2 mg/dL (8.4-10.2); Carbon Dioxide 29 mmol/L (22-29); Chloride 99 mmol/L (96-108); Creatinine Clr Calc Pharmacy 146.7; Estimated Glomerular Filt Rate > 60; Glucose Random 154 mg/dL (60-115); Potassium 3.8 mmol/L (3.3-5.1); Sodium 133 mmol/L (135-145)
[2022-05-03] MEDS: Furosemide 40 MG/4 ML VIAL IVPUSH ×2 (07:54→18:31)
[2022-05-03] MEDS: 0.9 % Sodium Chloride Flush 3 ML SYRINGE IVFLUSH ×3 (07:54→21:17)
[2022-05-03] MEDS: Zinc Sulfate 220 MG CAPSULE PO (07:54)
[2022-05-03] MEDS: Spironolactone 25 MG TABLET 100 MG PO (07:54)
[2022-05-03] MEDS: Fluticasone Propionate 250 MCG BLST.W.DEV 2 PUFF INHALE ×2 (08:24→20:12)
[2022-05-03 08:25] VITALS: RESP 16; O2SAT 94
[2022-05-03] MEDS: Docusate Sodium 100 MG CAPSULE PO (09:26)
[2022-05-03] MEDS: Lactulose 20 GM/30 ML SOLUTION PO (09:31)
--- NOTE | 2022-05-03 11:13 | HO.PM.IMPN ---
Subjective Subjective Date of Service: 05/03/22 Interval History: Seen and evaluated this morning Blood pressure around baseline weaning down O2 supplement Ankle pain and swelling improving No other overnight events Review of Systems Review of Systems: Yes all other systems are reviewed and are negative Physical Exam Vital Signs: Vital Signs: Last Vital Signs Temp 97.5 F 05/03/22 07:07 Pulse 102 H 05/03/22 07:07 Resp 16 05/03/22 08:25 BP 115/58 L 05/03/22 07:07 Pulse Ox 97 05/03/22 07:07 O2 Del Method 05/03/22 07:07 O2 Flow Rate 2 05/03/22 03:44 BMI result Body Mass Index 55.7 Const: Other: Constitutional : Awake, interactive, not in distress Neck : Normal inspection, Supple Cardiovascular : RRR, no JVP, +1 bilateral lower extremity edema Respiratory : good bilateral air entry, no crackles, wheezes or rhonchi Gastrointestinal: soft, lax, Normal bowel sounds, Non tender Skin : Warm, Dry Extremities: Ankle in dressing, no drainage noted Neurological : Alert & oriented x3, No focal deficit Objective Data Active Medications Acetaminophen (Acetaminophen 325 Mg Tablet) 650 mg PO Q6H PRN PRN Reason: Pain, Mild (Pain Scale 1-3) Last Admin: 04/30/22 22:05 Dose: 650 mg Documented By: DOROTA Albuterol Sulfate (Albuterol Sulfate 90 Mcg 8 Gm Inhaler) 2 puff INHALE Q6H PRN PRN Reason: Wheezing Last Admin: 05/02/22 15:24 Dose: 2 puff Documented By: EMILIANO Docusate Sodium (Docusate Sodium 100 Mg Capsule) 100 mg PO DAILY PRN PRN Reason: Constipation Last Admin: 05/03/22 09:26 Dose: 100 mg Documented By: STEVE Fluticasone Propionate (Fluticasone Propionate 250 Mcg Blst.W.Dev) 2 puff INHALE RBID [facility] Last Admin: 05/03/22 08:24 Dose: 2 puff Documented By: JA Furosemide (Furosemide 40 Mg/4 Ml Vial) 40 mg IVPUSH BID@0900,1800 [facility]; Protocol Last Admin: 05/03/22 09:57 Dose: Not Given Documented By: STEVE Non-Admin Reason: already gave 40mg at 0730 Gabapentin (Gabapentin 300 Mg Capsule) 300 mg PO BEDTIME [facility] Last Admin: 05/02/22 20:18 Dose: 300 mg Documented By: CHRISTIANA Ceftriaxone Sodium 1 gm/ (Sodium Chloride) 50 mls @ 100 mls/hr IV Q24H [facility] Last Infusion: 05/03/22 06:29 Dose: 0 mls/hr Documented By: PREETI Azithromycin 500 mg/ Sodium (Chloride) 250 mls @ 125 mls/hr IV Q24H [facility] Last Infusion: 05/03/22 08:46 Dose: 0 mls/hr Documented By: STEVE Insulin Glargine (Insulin Glargine,Hum.Rec.Anlog 100 Unit/Ml 10 Ml Vial) 65 unit SUBCUT BEDTIME [facility] Last Admin: 05/02/22 21:42 Dose: 65 unit Documented By: CHRISTIANA Lactulose (Lactulose 20 Gm/30 Ml Solution) 20 gm PO BID [facility] Last Admin: 05/03/22 09:31 Dose: 20 gm Documented By: STEVE Levothyroxine Sodium (Levothyroxine Sodium 50 Mcg Tablet) 50 mcg PO DAILY@0600 [facility] Last Admin: 05/03/22 05:41 Dose: 50 mcg Documented By: PREETI Omeprazole (Omeprazole 40 Mg Capsule.) 40 mg PO DAILY@0630 [facility] Ondansetron HCl (Ondansetron Hcl 4 Mg/2 Ml Vial) 4 mg IVPUSH Q8H PRN PRN Reason: Nausea and Vomiting Last Admin: 05/02/22 09:19 Dose: 4 mg Documented By: NORMA Oxycodone HCl (Oxycodone Hcl Immed Release 5 Mg Tablet) 5 mg PO Q4H PRN PRN Reason: Pain, Severe (Pain Scale 7-10) Last Admin: 05/02/22 20:18 Dose: 5 mg Documented By: CHRISTIANA Sodium Chloride (0.9 % Sodium Chloride Flush 3 Ml Syringe) 3 ml IVFLUSH QSHIFT [facility] Last Admin: 05/03/22 07:54 Dose: 3 ml Documented By: STEVE Spironolactone (Spironolactone 25 Mg Tablet) 100 mg PO DAILY [facility]; Protocol Last Admin: 05/03/22 07:54 Dose: 100 mg Documented By: STEVE Zinc Sulfate (Zinc Sulfate 220 Mg Capsule) 220 mg PO DAILY [facility] Last Admin: 05/03/22 07:54 Dose: 220 mg Documented By: STEVE Labs 05/02/22 05:41 05/03/22 05:39 Labs: Laboratory Results - last 24 hr 05/02/22 05/02/22 05/03/22 11:38 21:26 05:39 Anion Gap 9 L Estim Creat Clear Calc 146.7 Estimated GFR > 60 POC Glucose 162 H 159 H Random Glucose 154 H Calcium 8.2 L B-Natriuretic Peptide 05/03/22 05:39 Anion Gap Estim Creat Clear Calc Estimated GFR POC Glucose Random Glucose Calcium B-Natriuretic Peptide 564 H Microbiology Microbiology Results: Microbiology 05/01/22 06:41 Blood Culture - Preliminary Blood - Venous No growth after 48 hours. 05/01/22 06:41 Blood Culture - Preliminary Blood - Venous No growth after 48 hours. Assessment and Plan (1) Anasarca: Status: Acute (2) Acute respiratory failure with hypoxia: Status: Acute (3) Pneumonia: Status: Acute Plan this is a 46-year-old female who presents to the hospital after undergoing paracentesis and developing hypotension # Acute hypoxic respiratory failure 2/[address] scan of chest consistent with infiltrates Negative final cultures Continue Saniya and Ceftriaxone Wean oxygen down as tolerated # hypotension secondary to cirrhosis and large volume paracentesis received 2 rounds of IV albumin with improvement # anasarca 2/2 cirrhosis secondary to SERVIN The patient in fluid overload with anasarca-on CT scan continue IV lasix Monitor intake and output Fluid restriction Continue spironolactone 100 # diabetes low-dose sliding scale insulin diabetic diet continue home insulin # chronic hyponatremia secondary to cirrhosis fluid restriction follow BMP # Hypothyroidism continue levothyroxine # Rt ankle pain No fracture on images pain control PT eval DVT prophylaxis: SCDs with thrombocytopenia Patient will need overnight inpatient hospital stay for treatment of acute hypoxic respiratory failure Time Spent With Patient Time: Total time managing care of this patient today ____ minutes. Quality Stroke Does the patient have a stroke diagnosis?: No VTE Prior VTE?: No VTE Risk Level:: Medical - low VTE Device Contraindication: N/A - Device Ordered VTE Drug Contraindication: Treatment Not Indicated
[2022-05-03] MEDS: Omeprazole 40 MG CAPSULE.DR PO (11:34)
[2022-05-03 15:21] VITALS: BP 111/58; PULSE 105; RESP 17; TEMP 36.4; O2SAT 97
[2022-05-03 19:30] VITALS: BP 119/58; PULSE 105; RESP 17; TEMP 36.7; O2SAT 94
[2022-05-03 20:07] LABS: Glucose, Whole Blood 152 mg/dL (60-115)
[2022-05-03 20:15] VITALS: PULSE 102; RESP 17; O2SAT 98
[2022-05-03] MEDS: Gabapentin 300 MG CAPSULE PO (21:16)
[2022-05-03] MEDS: Insulin Glargine,Hum.rec.anlog 100 UNIT/ML 10 ML VIAL 65 UNIT SUBCUT (21:16)
[2022-05-04 04:00] VITALS: BP 114/61; PULSE 98; RESP 18; TEMP 36.3; O2SAT 97
[2022-05-04] MEDS: Omeprazole 40 MG CAPSULE.DR PO (05:20)
[2022-05-04] MEDS: cefTRIAXone sodium 1 GM in 0.9 % Sodium Chloride 50 ML IV (05:20)
[2022-05-04] MEDS: Levothyroxine Sodium 50 MCG TABLET PO (05:20)
[2022-05-04] MEDS: Azithromycin 500 MG in 0.9 % Sodium Chloride 250 ML 125 MG IV (05:22)
[2022-05-04 06:59] LABS: B Type Natriuretic Peptide 173 pg/mL (<100)
[2022-05-04 07:15] VITALS: BP 100/59; PULSE 102; RESP 16; TEMP 36.9; O2SAT 93
[2022-05-04 07:21] LABS: Anion Gap 9 (12-20); Blood Urea Nitrogen 8 mg/dL (9-16); Calcium 8.2 mg/dL (8.4-10.2); Carbon Dioxide 31 mmol/L (22-29); Chloride 98 mmol/L (96-108); Estimated Glomerular Filt Rate > 60; Glucose Random 120 mg/dL (60-115); Potassium 3.5 mmol/L (3.3-5.1); Sodium 134 mmol/L (135-145)
[2022-05-04] MEDS: Furosemide 40 MG/4 ML VIAL IVPUSH ×2 (07:21→17:00)
[2022-05-04] MEDS: Spironolactone 25 MG TABLET 100 MG PO (07:21)
[2022-05-04] MEDS: 0.9 % Sodium Chloride Flush 3 ML SYRINGE IVFLUSH ×3 (07:22→20:49)
[2022-05-04] MEDS: Lactulose 20 GM/30 ML SOLUTION PO ×2 (07:22→20:48)
[2022-05-04] MEDS: Zinc Sulfate 220 MG CAPSULE PO (07:22)
[2022-05-04 07:27] LABS: Glucose, Whole Blood 123 mg/dL (60-115)
--- NOTE | 2022-05-04 11:24 | HO.PM.IMPN ---
Subjective Subjective Date of Service: 05/04/22 Interval History: Seen and evaluated this morning Blood pressure around baseline O2 sat dropped to 89% upo ambulation weaning down O2 supplement No other overnight events Physical Exam Vital Signs: Vital Signs: Last Vital Signs Temp 98.5 F 05/04/22 07:15 Pulse 102 H 05/04/22 07:15 Resp 16 05/04/22 07:15 BP 100/59 L 05/04/22 07:15 Pulse Ox 93 05/04/22 07:15 O2 Del Method 05/04/22 07:15 O2 Flow Rate 2 05/04/22 07:15 BMI result Body Mass Index 55.7 Const: Other: Constitutional : Awake, interactive, not in distress Neck : Normal inspection, Supple Cardiovascular : RRR, no JVP, +1 bilateral lower extremity edema Respiratory : good bilateral air entry, no crackles, wheezes or rhonchi Gastrointestinal: soft, lax, Normal bowel sounds, Non tender Skin : Warm, Dry Extremities: Ankle in dressing, no drainage noted Neurological : Alert & oriented x3, No focal deficit Objective Data Active Medications Acetaminophen (Acetaminophen 325 Mg Tablet) 650 mg PO Q6H PRN PRN Reason: Pain, Mild (Pain Scale 1-3) Last Admin: 04/30/22 22:05 Dose: 650 mg Documented By: DOROTA Albuterol Sulfate (Albuterol Sulfate 90 Mcg 8 Gm Inhaler) 2 puff INHALE Q6H PRN PRN Reason: Wheezing Last Admin: 05/02/22 15:24 Dose: 2 puff Documented By: EMILIANO Azithromycin (Azithromycin 500 Mg Tablet) 500 mg PO Q24H [facility] Cefuroxime Axetil (Cefuroxime Axetil 250 Mg Tablet) 250 mg PO Q12H [facility] Docusate Sodium (Docusate Sodium 100 Mg Capsule) 100 mg PO DAILY PRN PRN Reason: Constipation Last Admin: 05/03/22 09:26 Dose: 100 mg Documented By: STEVE Fluticasone Propionate (Fluticasone Propionate 250 Mcg Blst.W.Dev) 2 puff INHALE RBID [facility] Last Admin: 05/04/22 07:56 Dose: Not Given Documented By: ZACHARIAHRICC Non-Admin Reason: pt wants to sleep Furosemide (Furosemide 40 Mg/4 Ml Vial) 40 mg IVPUSH BID@0900,1800 [facility]; Protocol Last Admin: 05/04/22 07:21 Dose: 40 mg Documented By: STEVE Gabapentin (Gabapentin 300 Mg Capsule) 300 mg PO BEDTIME [facility] Last Admin: 05/03/22 21:16 Dose: 300 mg Documented By: CHRISTIANA Insulin Glargine (Insulin Glargine,Hum.Rec.Anlog 100 Unit/Ml 10 Ml Vial) 65 unit SUBCUT BEDTIME [facility] Last Admin: 05/03/22 21:16 Dose: 65 unit Documented By: CHRISTIANA Lactulose (Lactulose 20 Gm/30 Ml Solution) 20 gm PO BID [facility] Last Admin: 05/04/22 07:22 Dose: 20 gm Documented By: STEVE Levothyroxine Sodium (Levothyroxine Sodium 50 Mcg Tablet) 50 mcg PO DAILY@0600 [facility] Last Admin: 05/04/22 05:20 Dose: 50 mcg Documented By: CHRISTIANA Omeprazole (Omeprazole 40 Mg Capsule.) 40 mg PO DAILY@0630 [facility] Last Admin: 05/04/22 05:20 Dose: 40 mg Documented By: CHRISTIANA Ondansetron HCl (Ondansetron Hcl 4 Mg/2 Ml Vial) 4 mg IVPUSH Q8H PRN PRN Reason: Nausea and Vomiting Last Admin: 05/02/22 09:19 Dose: 4 mg Documented By: NORMA Oxycodone HCl (Oxycodone Hcl Immed Release 5 Mg Tablet) 5 mg PO Q4H PRN PRN Reason: Pain, Severe (Pain Scale 7-10) Last Admin: 05/02/22 20:18 Dose: 5 mg Documented By: CHRISTIANA Sodium Chloride (0.9 % Sodium Chloride Flush 3 Ml Syringe) 3 ml IVFLUSH QSHIFT [facility] Last Admin: 05/04/22 07:22 Dose: 3 ml Documented By: STEVE Spironolactone (Spironolactone 25 Mg Tablet) 100 mg PO DAILY [facility]; Protocol Last Admin: 05/04/22 07:21 Dose: 100 mg Documented By: STEVE Zinc Sulfate (Zinc Sulfate 220 Mg Capsule) 220 mg PO DAILY [facility] Last Admin: 05/04/22 07:22 Dose: 220 mg Documented By: HO.NGENOAL Labs 05/02/22 05:41 05/04/22 05:57 Labs: Laboratory Results - last 24 hr 05/03/22 05/04/22 05/04/22 19:52 05:57 05:57 Anion Gap 9 L Estim Creat Clear Calc 156.0 Estimated GFR > 60 POC Glucose 152 H Random Glucose 120 H Calcium 8.2 L B-Natriuretic Peptide 173 H 05/04/22 07:18 Anion Gap Estim Creat Clear Calc Estimated GFR POC Glucose 123 H Random Glucose Calcium B-Natriuretic Peptide Microbiology Microbiology Results: Microbiology 05/01/22 06:41 Blood Culture - Preliminary Blood - Venous No growth after 48 hours. 05/01/22 06:41 Blood Culture - Preliminary Blood - Venous No growth after 48 hours. Assessment and Plan (1) Anasarca: Status: Acute (2) Pneumonia: Status: Acute (3) Acute respiratory failure with hypoxia: Status: Acute Plan this is a 46-year-old female who presents to the hospital after undergoing paracentesis and developing hypotension # Acute hypoxic respiratory failure 2/[address] scan of chest consistent with infiltrates Negative final cultures DC IV Abx, change to PO Wean oxygen down as tolerated # hypotension secondary to cirrhosis and large volume paracentesis received 2 rounds of IV albumin with improvement # anasarca 2/2 cirrhosis secondary to SERVIN The patient in fluid overload with anasarca-on CT scan continue IV lasix Monitor intake and output Fluid restriction Continue spironolactone 100 # diabetes low-dose sliding scale insulin diabetic diet continue home insulin # chronic hyponatremia secondary to cirrhosis fluid restriction follow BMP # Hypothyroidism continue levothyroxine # Rt ankle pain No fracture on images pain control PT eval DVT prophylaxis: SCDs with thrombocytopenia Patient will need overnight inpatient hospital stay for treatment of acute hypoxic respiratory failure pending weaning down O2 Time Spent With Patient Time: Total time managing care of this patient today ____ minutes. Quality Stroke Does the patient have a stroke diagnosis?: No VTE Prior VTE?: No VTE Risk Level:: Medical - low VTE Device Contraindication: N/A - Device Ordered VTE Drug Contraindication: Treatment Not Indicated
[2022-05-04 15:22] VITALS: BP 112/65; PULSE 100; RESP 19; TEMP 37.2; O2SAT 95
[2022-05-04 16:07] LABS: Glucose, Whole Blood 153 mg/dL (60-115)
[2022-05-04] MEDS: Spironolactone 25 MG TABLET 75 MG PO (17:00)
[2022-05-04 19:30] VITALS: BP 95/47; PULSE 95; RESP 18; TEMP 36.8; O2SAT 92
[2022-05-04] MEDS: Fluticasone Propionate 250 MCG BLST.W.DEV 2 PUFF INHALE (19:58)
[2022-05-04 19:59] VITALS: PULSE 95; RESP 18
[2022-05-04 20:01] LABS: Glucose, Whole Blood 133 mg/dL (60-115)
[2022-05-04] MEDS: Gabapentin 300 MG CAPSULE PO (20:48)
[2022-05-04] MEDS: Insulin Glargine,Hum.rec.anlog 100 UNIT/ML 10 ML VIAL 65 UNIT SUBCUT (20:49)
[2022-05-05 03:30] VITALS: BP 115/58; PULSE 106; RESP 18; TEMP 36.5; O2SAT 95
[2022-05-05 04:20] LABS: Appearance Urine Cloudy; Color Urine Dark Yellow; Glucose Urine UA Negative (Negative); Leukocyte Esterase Urine Negative (Negative); Nitrite Urine Negative (Negative); PH 5.5 (5.0-9.0); Specific Gravity - Urine 1.025 (1.005-1.025); UMIC TRIGGER UACC YES; Urine Blood Moderate (2+) (Negative); Urine Ketones Trace mg/dL (Negative); Urine Protein 30 (1+) mg/dL (Neg-Trace)
[2022-05-05 04:24] LABS: Bacteria Urine None Seen (None Seen); Hyaline Casts Urine 0-2 /LPF (0-2); RBC Urine >20 /HPF (0-2); WBC Urine 0-5 /HPF (0-5)
[2022-05-05] MEDS: Levothyroxine Sodium 50 MCG TABLET PO (05:28)
[2022-05-05] MEDS: Omeprazole 40 MG CAPSULE.DR PO (05:28)
[2022-05-05 07:27] VITALS: BP 96/50; PULSE 100; RESP 19; TEMP 36.5; O2SAT 96
[2022-05-05 07:44] LABS: Glucose, Whole Blood 141 mg/dL (60-115)
[2022-05-05] MEDS: 0.9 % Sodium Chloride Flush 3 ML SYRINGE IVFLUSH (07:58)
[2022-05-05] MEDS: Lactulose 20 GM/30 ML SOLUTION PO (07:58)
[2022-05-05] MEDS: Azithromycin 500 MG TABLET PO (07:59)
[2022-05-05] MEDS: Zinc Sulfate 220 MG CAPSULE PO (07:59)
[2022-05-05] MEDS: Furosemide 40 MG/4 ML VIAL IVPUSH (07:59)
[2022-05-05] MEDS: Fluticasone Propionate 250 MCG BLST.W.DEV 2 PUFF INHALE (08:14)
[2022-05-05 08:15] VITALS: PULSE 107; RESP 18; O2SAT 94
[2022-05-05] MEDS: Spironolactone 25 MG TABLET 75 MG PO (09:30)
--- NOTE | 2022-05-05 12:05 | PM.DS ---
DS: Providers Provider Date of Service: 05/05/22 Date of admission: 04/30/22 21:23 Primary care physician: Radha Anne MD DS: Diagnosis Discharge Diagnosis (1) Anasarca: Status: Acute (2) Pneumonia: Status: Acute (3) Acute respiratory failure with hypoxia: Status: Acute (4) Status post abdominal paracentesis: Status: Acute (5) Hypotension: Status: Acute DS: Summary Hospital Course Hospital Course: Admission note HPI ?this is a 46-year-old female with past medical history of acromegaly, asthma, diabetes, dyslipidemia, HTN, goiter, AMY,? liver cirrhosis secondary to SERVIN, presents to the hospital after undergoing paracentesis and being found hypotensive. ? Patient reports that prior to coming to the hospital for her scheduled outpatient paracentesis she had a fall on her right side with subsequent pain in her right ankle and left upper abdomen? right lower chest, she went for paracentesis, had 12 L of fluid drawn, and reports that she was hypotensive post thoracentesis therefore sent to the ED.? Patient otherwise has no acute complaints of shortness of breath, no coughing, no fever no chills, no chest pain, no other abdominal pain, no nausea or vomiting, no diarrhea constipation, and no urinary symptoms On arrival to the ED patient noted to have a blood pressure of 77/35, patient received 2 doses of albumin with improvement in her blood pressure. ? Labs are significant for WBC count of 4.9, hemoglobin of 11.4, hematocrit 34.6, sodium? of 129,? patient has chronic hyponatremia , bilirubin of 4.1, which is slightly elevated and 3.5 in March 2022, albumin of 2.[address] as well as chest x-ray show no acute abnormality in the abdomen and pelvis, no rib fractures identified, hepatic cirrhosis with associated splenomegaly and small volume ascites, cholelithiasis without cholecystitis, generalized anasarca, patient will be admitted for further management Hospital course The patient was primarily admitted for hypotension post paracentesis procedures. Responded well to 2 rounds of IV albumin as her blood pressure runs solved in 90s. No reported dizziness or lightheadedness upon standing and ambulation. She was noticed to be in acute hypoxic respiratory failure as CT scan of the chest was consistent with pneumonia. Treated with IV antibiotics as blood cultures came back negative she was changed to oral antibiotics. She uses 3 L of oxygen at baseline which she was weaned to. Was able to ambulate with PT who recommended SNF but the patient would prefer to go back home with [facility]. Images reported anasarca. The patient was started on IV Lasix along with spironolactone with good response over the course of hospital stay as edema improved significantly. She will be discharged on a higher dose of spironolactone of 75 mg twice daily along with Lasix 20 mg daily with a plan to follow-up with Gastroenterology as outpatient. Reported right ankle pain. X-ray was negative for any fracture. Evaluated by physical therapy. Increase spironolactone to 75 mg twice daily Continue azithromycin and Ceftin as prescribed Start lactulose daily to help with bowel movement, hold for diarrhea Start omeprazole daily To follow-up with Gastroenterology as outpatient Time Spent with Patient Time attestation: Total time managing care of this patient today ____ minutes. Discharge coordination time: Greater than 30 minutes Quality: Safe Use of Opioids Does Pt have an Active Cancer Diagnosis on the Problem List?: No Quality: Stroke Does the patient have a stroke diagnosis?: No Physical Exam Vital Signs: Vital Signs: Last Vital Signs Temp 97.7 F 05/05/22 07:27 Pulse 107 H 05/05/22 08:15 Resp 18 05/05/22 08:15 BP 96/50 L 05/05/22 07:27 Pulse Ox 96 05/05/22 07:27 O2 Del Method 05/05/22 07:27 O2 Flow Rate 2 05/05/22 03:30 BMI result Body Mass Index 55.7 Const: Other: Constitutional : Awake, interactive, not in distress Neck : Normal inspection, Supple Cardiovascular : RRR, no JVP, +1 bilateral lower extremity edema Respiratory : good bilateral air entry, no crackles, wheezes or rhonchi Gastrointestinal: soft, lax, Normal bowel sounds, Non tender Skin : Warm, Dry Extremities: Ankle in dressing, no drainage noted Neurological : Alert & oriented x3, No focal deficit DS: Data Data Completed and Pending Labs on day of discharge: Laboratory Results - last 24 hr 05/04/22 05/04/22 05/05/22 15:27 19:55 03:58 POC Glucose 153 H 133 H Urine Color Dark Yellow Urine Appearance Cloudy Urine pH 5.5 Ur Specific [place] 1.025 Urine Protein 30 (1+) H Urine Glucose (UA) Negative Urine Ketones Trace Urine Blood Moderate (2+) H Urine Nitrite Negative Ur Leukocyte Esterase Negative Urine RBC >20 H Urine WBC 0-5 Ur Squamous Epith Cells 11-20 Urine Bacteria None Seen Hyaline Casts 0-2 05/05/22 07:17 POC Glucose 141 H Urine Color Urine Appearance Urine pH Ur Specific [place] Urine Protein Urine Glucose (UA) Urine Ketones Urine Blood Urine Nitrite Ur Leukocyte Esterase Urine RBC Urine WBC Ur Squamous Epith Cells Urine Bacteria Hyaline Casts Preliminary micro results at discharge 05/01/22 06:41 Blood Culture - Preliminary Blood - Venous No growth after 48 hours. 05/01/22 06:41 Blood Culture - Preliminary Blood - Venous No growth after 48 hours. Imaging Chest x-ray: Radiologist's impression: ITS Impressions Abdomen/Pelvis CT 04/30/22 17:36 IMPRESSION: 1. No acute abnormalities are identified in the abdomen and pelvis. No rib fractures are identified 2. Hepatic cirrhosis with associated splenomegaly and small volume ascites. 3. Cholelithiasis without evidence of acute cholecystitis. 4. Generalized anasarca. 5. Multilevel degenerative spondylosis in the thoracolumbar spine. Fleischner guidelines were followed. Chest X-Ray 04/30/22 18:40 IMPRESSION: Hypoinflated lungs with bibasilar atelectasis. Superimposed infiltrate cannot be excluded. Chest CT 05/01/22 04:31 IMPRESSION: 1. Bandlike opacities in both lower lobes with more patchy opacity in the lingula. This could represent atelectasis or pneumonia. 2. Anasarca with prominent inflammation of the chest wall. 3. Cholelithiasis. 4. Small volume ascites in the upper abdomen. Fleischner guidelines were followed. Discharge Plan Discharge Anticipated Discharge Date/Time: 05/05/22 11:55 Patient Disposition: Home, Self-Care Discharge Diagnosis: Acute hypoxic respiratory failure Pneumonia Fluid overload Referrals: Radha Anne MD [Primary Care Provider] - 1 Week Discharge Medications: New cefuroxime axetil 250 mg Tablet 250 mg PO Q12H 3 Days Qty: 6 0RF omeprazole 40 mg Capsule,Delayed Release(Dr/Ec) 40 mg PO DAILY@0630 Qty: 30 0RF spironolactone 25 mg Tablet 75 mg PO BID@0900,1800 30 Days Qty: 180 0RF Protocol: Hold for SBP< HOLD for SBP < : 90 azithromycin 500 mg Tablet 500 mg PO Q24H 3 Days Qty: 3 0RF lactulose 20 gram/30 mL Solution 20 g PO DAILY 30 Days Qty: 900 0RF Continued zinc sulfate [Orazinc] 50 mg zinc (220 mg) capsule 50 mg PO DAILY Qty: 30 4RF Humalog KwikPen Insulin 200 unit/mL (3 mL) insulin pen 30 unit subcut BIDWM Rx Instructions: 26 units if blood sugar less than 200 mg/dL and 30 units is more than 200 mg/dL subcut 3 times a day; Toujeo Max U-300 SoloStar 300 unit/mL (3 mL) insulin pen 80 unit subcut BEDTIME (DME) FreeStyle Lite Strips Strip See Rx Instructions .ROUTE .MEDSUPPLY Qty: 10 Rx Instructions: test 3x a day (DME) lancets [FreeStyle Lancets] 28 gauge misc See Rx Instructions .ROUTE .MEDSUPPLY Qty: 100 Rx Instructions: test 3x a day albuterol sulfate [ProAir HFA] 90 mcg/actuation HFA aerosol inhaler 2 puff inhalation Q6H PRN (Reason: Wheezing) Flovent HFA 220 mcg/actuation HFA aerosol inhaler 2 puff inhalation BID gabapentin 300 mg capsule 300 mg PO BEDTIME levothyroxine 50 mcg tablet 50 mcg PO DAILY vitamin A 10,000 unit capsule 1 cap PO DAILY Trulicity 1.5 mg/0.5 mL pen injector 1.5 mg subcut MO furosemide 20 mg tablet 20 mg PO DAILY Qty: 30 2RF Discontinued spironolactone [Aldactone] 100 mg tablet 100 mg PO DAILY Qty: 30 1RF Discharge Orders: Discharge Order (Routine); Ordered 05/05/22 Ordered By: Lluvia Nguyen Diet: Low salt diet Activity on Discharge: As tolerated Stand Alone Forms: Patient Portal Discharge page Care Plan Goals: Read below Health Concerns: Read below Plan of Treatment: Read below Assessment: You were admitted to the hospital for evaluation of difficulty breathing and drop in blood pressure. Found to have pneumonia requiring treatment with IV antibiotics. Fluid overload that was treated with water pills with good response. Increase spironolactone to 75 mg twice daily Continue azithromycin and Ceftin as prescribed Start lactulose daily to help with bowel movement, hold for diarrhea Start omeprazole daily To follow-up with Gastroenterology as outpatient
--- NOTE | 2022-05-05 12:50 | MHC.CM.PN ---
PT WILL BE DISCHARGED HOME TODAY WITH NO NEW SERVICES ORDERED SHUTTLE TRANSPORT ARRANGED FOR 1330 HOURS
== END 2022-05-05 13:27 | disposition home or self-care (01) ==
LOC: HO.ED 21:00 → HO.EDOVER 05-01 07:18 → HO.S3 05-01 14:46
PROVIDERS: Admitting Provider Internal Medicine; Emergency Provider Emergency Medicine; PCP Family Medicine; Visit Provider Student in an Organized Health Care Education/Training Program
DX: K74.60 Unspecified cirrhosis of liver (principal); J96.01 Acute respiratory failure with hypoxia; R18.8 Other ascites; J18.9 Pneumonia, unspecified organism; E87.1 Hypo-osmolality and hyponatremia; K75.81 Nonalcoholic steatohepatitis (NASH); E88.09 Other disorders of plasma-protein metabolism, not elsewhere classified; I95.81 Postprocedural hypotension; Z68.43 Body mass index [BMI] 50.0-59.9, adult; E66.01 Morbid (severe) obesity due to excess calories; E78.5 Hyperlipidemia, unspecified; E03.9 Hypothyroidism, unspecified; G47.33 Obstructive sleep apnea (adult) (pediatric); Z20.822 Contact with and (suspected) exposure to COVID-19; Z87.891 Personal history of nicotine dependence; Z88.0 Allergy status to penicillin; Z88.5 Allergy status to narcotic agent; Z88.6 Allergy status to analgesic agent; Z79.4 Long term (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 insulin; Z79.51 Long term (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 inhaled steroids; Z79.899 Other long term (current) drug therapy
CPT/HCPCS: 0241U; 36415; 71045; 71250; 74176; 80048; 80076; 81001; 82947; 83605; 83690; 83880; 84145; 85025; 85027; 87040; 97162; 99285; J0456; J0696; J1940; J2270; J2405; P9047

== ENCOUNTER 2022-05-30 15:38 | Inpatient (IN) | payer MEDICAID, SELFPAY ==
--- NOTE | ~2022-05-30 | US_ITS ---
EXAMINATION: ULTRASOUND-GUIDED PARACENTESIS CLINICAL INFORMATION: Ascites COMPARISON: Previous exam most recent April 2022 TECHNIQUE: Procedure and risks and benefits including bleeding, infection and low blood pressure were discussed with the patient through an machine staker and informed consent was obtained. The left lower quadrant was draped in the usual sterile fashion. The skin and soft tissues were anesthetized with 1% lidocaine plain. Using ultrasound guidance and a 5 Mongolian catheter, access to the ascitic fluid was obtained. 7.6 L of clear yellow fluid was removed. Diagnostic specimen was sent as requested by the ordering physician. FINDINGS: There is a large amount of ascites. US/US paracentesis abd w/image IMPRESSION: Ultrasound-guided paracentesis.
--- NOTE | ~2022-05-30 | US_ITS ---
EXAMINATION: US ABDOMEN LIMITED CLINICAL INFORMATION: Ascites. COMPARISON: Most recent CT abdomen/pelvis dated 04/30/2022. TECHNIQUE: Real-time imaging of the 4 abdominal quadrants. FINDINGS: Moderate, simple-appearing ascites. No large soft tissue mass or fluid collection identified. US/US abdomen limited IMPRESSION: Moderate, simple ascites which appears increased when compared to the prior CT.
--- NOTE | ~2022-05-30 | XR_ITS ---
EXAMINATION: XR CHEST: PORTABLE AP VIEW XR LEFT SHOULDER: 2 VIEWS CLINICAL INFORMATION: Shortness of breath. Pain. COMPARISON: Chest x-ray dated 04/30/2022 FINDINGS: Low lung volumes. Bibasilar streaky airspace opacities, more pronounced on the left similar in appearance to prior. No pleural effusion. No pneumothorax. Cardiomediastinal silhouette and pulmonary vascularity are within normal limits. No acute osseous abnormalities. Left glenohumeral joint intact. Small marginal osteophytes along the acromioclavicular joint. XR/XR chest 1V IMPRESSION: * Low lung volumes. * Bibasilar streaky airspace opacities, more pronounced on the left. These could represent subsegmental atelectasis or infiltrates. * No acute fracture or dislocation with respect to the left shoulder
--- NOTE | ~2022-05-30 | XR_ITS ---
EXAMINATION: XR CHEST: PORTABLE AP VIEW XR LEFT SHOULDER: 2 VIEWS CLINICAL INFORMATION: Shortness of breath. Pain. COMPARISON: Chest x-ray dated 04/30/2022 FINDINGS: Low lung volumes. Bibasilar streaky airspace opacities, more pronounced on the left similar in appearance to prior. No pleural effusion. No pneumothorax. Cardiomediastinal silhouette and pulmonary vascularity are within normal limits. No acute osseous abnormalities. Left glenohumeral joint intact. Small marginal osteophytes along the acromioclavicular joint. XR/XR shoulder LT min 2V IMPRESSION: * Low lung volumes. * Bibasilar streaky airspace opacities, more pronounced on the left. These could represent subsegmental atelectasis or infiltrates. * No acute fracture or dislocation with respect to the left shoulder
[2022-05-30 15:58] VITALS: BP 122/78; BP 138/81; PULSE 121; PULSE 123; RESP 20; TEMP 36.9; O2SAT 94; O2SAT 95; BMI 56.5
--- NOTE | 2022-05-30 16:57 | ECG_ITS ---
Test Reason : L shoulder pain Blood Pressure : / mmHG Vent. Rate : 119 BPM Atrial Rate : 119 BPM P-R Int : 148 ms QRS Dur : 062 ms QT Int : 314 ms P-R-T Axes : 029 080 003 degrees QTc Int : 441 ms Sinus tachycardia Low voltage QRS Cannot rule out Anterior infarct , age undetermined Abnormal ECG When compared with ECG of 15-FEB-2022 21:00, Vent. rate has increased BY 47 BPM Referred By: Tavia Lawrence Electronically Signed By:MICHELLE FOSTER MD
--- NOTE | 2022-05-30 16:58 | ED_ITS ---
HPI - General Adult General Chief complaint: General Medical Stated complaint: chest pain Time Seen by Provider: 05/30/22 16:36 Source: patient Mode of arrival: ambulatory History of Present Illness HPI narrative: Patient comes to the emergency room complaining of diffuse abdominal distension, left shoulder pain. Regarding her abdominal distension, patient states that she usually gets paracentesis every 2 weeks. Patient had 1 approximately a month ago, patient was admitted because she was hypotensive and also had pneumonia. Patient states that she is also having left shoulder pain. Patient states it has been approximately 5 days, started radiating towards the left side of the chest. Patient states she woke up with pain 1 day and it has been constant since then. Related Data Home Medications Medication Instructions Recorded Confirmed albuterol sulfate 90 mcg/actuation 2 puff inhalation Q6H PRN Wheezing 08/16/20 04/30/22 aerosol inhaler (ProAir HFA) blood sugar diagnostic (FreeStyle #10 ea 08/16/20 08/16/20 Lite Strips) fluticasone propionate 220 2 puff inhalation BID 08/16/20 04/30/22 mcg/actuation HFA aerosol inhaler (Flovent HFA) lancets 28 gauge (FreeStyle #100 ea 08/16/20 08/16/20 Lancets) gabapentin 300 mg capsule 300 mg PO BEDTIME pain 11/04/21 04/30/22 levothyroxine 50 mcg tablet 50 mcg PO DAILY 11/04/21 04/30/22 dulaglutide 1.5 mg/0.5 mL 1.5 mg subcut MO 04/28/22 04/30/22 subcutaneous pen injector ([facility]) vitamin A 10,000 unit capsule 1 cap PO DAILY 04/28/22 04/30/22 insulin glargine U-300 conc 300 80 unit subcut BEDTIME 04/30/22 04/30/22 unit/mL (3 mL) subcutaneous pen (Toujeo Max U-300 SoloStar) insulin lispro 200 unit/mL (3 mL) 30 unit subcut BIDWM 04/30/22 04/30/22 subcutaneous pen (Humalog KwikPen U-200 Insulin) Previous Rx's Medication Instructions Recorded zinc sulfate 50 mg zinc (220 mg) 50 mg PO DAILY #30 caps 04/16/22 capsule (Orazinc) furosemide 20 mg tablet 20 mg PO DAILY #30 tabs 04/28/22 azithromycin 500 mg tablet 500 mg PO Q24H 3 days #3 tabs 05/05/22 cefuroxime axetil 250 mg tablet 250 mg PO Q12H 3 days #6 tabs 05/05/22 lactulose 20 gram/30 mL oral 20 g (30 mL) PO DAILY 30 days #900 05/05/22 solution mL omeprazole 40 mg capsule,delayed 40 mg PO DAILY@0630 #30 caps 05/05/22 release spironolactone 25 mg tablet 75 mg PO BID@0900,1800 30 days 05/05/22 #180 tabs Allergies Allergy/AdvReac Type Severity Reaction Status Date / Time ibuprofen [From MOTRIN] Allergy Intermediate RASH Verified 04/30/22 11:52 penicillin V Allergy Mild hives Verified 04/30/22 11:52 codeine Allergy Unknown Verified 04/28/22 12:04 Rx- listed on H&P Review of Systems Review of Systems: Constitutional : No Weight loss, No Fever, No Chills, No Night Sweats, No Fatigue, No Malaise ENT/Mouth : No Hearing loss, No Ear Pain, No Nasal Congestion, No Sinus Pain, No Hoarseness, No sore throat, No Rhinorrhea, No Swallowing Difficulty Eyes: No Eye Pain, No Swelling, No Redness, No Foreign Body, No Discharge, No Vision Changes Cardiovascular : Complaining of left shoulder pain radiating towards the chest, present for 5 days. Constant., No SOB, No Dyspnea on Exertion, No Orthopnea, No Edema, No Palpitations Respiratory : No Cough, No Sputum, No Wheezing, No Smoke Exposure, No Dyspnea Gastrointestinal : No Nausea, No Vomiting, No Diarrhea, No Constipation, complaining of abdominal distension, no pain Genitourinary : no irregular bleeding, No Dysuria, No Urinary Frequency, No Hematuria, No Urinary Incontinence, No Urgency, No Flank Pain, No Urinary Flow Changes, No Hesitancy Musculoskeletal : No joint pain, No Myalgias, No Joint Swelling Skin : No Skin Lesions, No rash Neuro : No Weakness, No Numbness, No Paresthesias, No Loss of Consciousness, No Dizziness, No Headache Psych : No Anxiety/Panic, No Depression, No SI/HI/AH/VH, No Social Issues, Heme/Lymph: No Bruising, No Bleeding,No Lymphadenopathy Endocrine : No Polyuria, No Polydipsia, No Temperature Intolerance [facility] Past Medical History Medical History Acromegaly Asthma Diabetes type 2, uncontrolled Diabetic nephropathy associated with type 2 diabetes mellitus Dyslipidemia Elevated TSH Goiter HTN (hypertension) 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 Morbid obesity Non-toxic multinodular goiter AMY (obstructive sleep apnea) PCOS (polycystic ovarian syndrome) Status post abdominal paracentesis Surgical History Hx of colonoscopy Hx of endoscopy Family History Family History Father Unknown family medical history Mother Hx of type 1 diabetes mellitus Social History Social History Household Members: Significant Other Housing: Apartment Do you presently have visiting nurse or other home services: No Alcohol intake: never Patient Tobacco Use Status: Former Tobacco user Quit Date: 7 yrs ago Smoked in Last 30 Days: No Use of substances other than those prescribed or required for medical reasons: No Advance Directives: No Advance Directives Information Provided: No Patient : No service: No Current occupational status: disabled 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 Oriented X3. No acute distress. Eyes: Pupils equal, round and reactive to light. ENT: Pharynx normal. Neck: Normal inspection. Neck supple. No lymph nodes noted. No crepitus CVS: Normal heart rate and rhythm. Pulses normal. Normal S1 and S2 Respiratory: No respiratory distress. Breath sounds normal. No Wheezing. No rales Abdomen: Soft significantly distended, nontender to palpation. Ultrasound shows a fair amount of fluid. However, the adipose tissues approximately 7 cm Skin: Skin warm and dry. Normal skin color. Normal skin turgor. Extremities: No lower extremity edema. No Lacerations. No Rash Neuro: Oriented X 3. No motor deficit. No sensory deficit. Moving all extremities. No slurred speech. CN 2 through 12 grossly intact Psych: calm, cooperative, normal affect Course Course Course Narrative: -patient will need a paracentesis. However, patient's platelets are in the 30s. -patient has hyponatremia, thrombocytopenia. Medical Decision Making Differential Diagnosis Differential Diagnoses: The differential diagnosis associated with the presentation includes (Hyponatremia, ascites) Admission/Observation Consideration of admission/observation: Escalation of care including admission/observation considered (Patient will likely need IR to do the paracentesis. Patient has significant thrombocytopenia.) Consult Healthcare Provider Management of the patient was discussed with: Hospitalist (Dr. Ferguson agree to admit the patient) Lab Data MDM Lab Attestation statement: I reviewed the patient's lab results. 05/30/22 17:26 05/30/22 17:26 Labs: Lab Results 05/30/22 05/30/22 05/30/22 Range/Units 17:26 17:26 17:26 WBC 10.9 H (4.8-10.8) X10*3/uL RBC 3.73 L (4.20-5.50) X10*6/uL Hgb 11.6 L (12.0-16.0) g/dl Hct 34.6 L (37.0-47.0) % MCV 92.8 (80.0-98.0) fL MCH 31.1 (27.0-33.0) pg MCHC 33.5 (31.0-35.0) g/dl RDW 16.6 H (11.0-16.0) % Plt Count 34 L D (160-400) X10*3/uL MPV 11.1 (9.4-12.3) fL Immature Gran % (Auto) 0.5 H (0.0-0.4) % Neut % (Auto) 83.3 H (45-73) % Lymph % (Auto) 5.6 L (20-40) % [place] % (Auto) 10.2 (2-11) % Eos % (Auto) 0.1 (0-4) % Baso % (Auto) 0.3 (0-2) % Lymph # (Auto) 0.6 L (1.2-4.9) X10*3/uL [place] # (Auto) 1.1 (0.1-1.2) X10*3/uL Eos # (Auto) 0.0 (0.0-0.4) X10*3/uL Baso # (Auto) 0.0 (0.0-0.2) X10*3/uL Abs Immat Gran (auto) 0.05 H (0.00-0.03) X10*3/uL Absolute Neuts (auto) 9.0 H (2.0-8.3) x10*3/uL Absolute Nucleated RBC 0.000 (0.0-0.012) X10*3/uL Nucleated RBC % (auto) 0.0 (0.0-0.2) /100WBC Smear Tech's Comments VERIFIED PT 25.9 H (10.0-13.1) SEC INR 2.2 H (0.9-1.1) Sodium 128 L (135-145) mmol/L Potassium 4.6 D (3.3-5.1) mmol/L Chloride 92 L (96-108) mmol/L Carbon Dioxide 27 (22-29) mmol/L Anion Gap 14 (12-20) BUN 9 (9-16) mg/dL Creatinine 0.77 (0.5-1.4) mg/dL Estim Creat Clear Calc 128.8 Estimated GFR > 60 Random Glucose 169 H (60-115) mg/dL Calcium 8.6 (8.4-10.2) mg/dL Total Bilirubin 6.6 H (0.0-1.0) mg/dL Direct Bilirubin 1.6 H (0.0-0.5) mg/dL AST 34 H (5-31) U/L ALT 17 (0-31) U/L Alkaline Phosphatase 112 (39-117) U/L Troponin I High Sens (<3.5-17.0) ng/L B-Natriuretic Peptide (<100) pg/mL Total Protein 7.1 (6.5-8.0) g/dL Albumin 2.5 L (3.5-5.0) g/dL COVID-19 (KIYA) (Negative) COVID-19 Clin Com 05/30/22 05/30/22 05/30/22 Range/Units 17:26 17:26 17:26 WBC (4.8-10.8) X10*3/uL RBC (4.20-5.50) X10*6/uL Hgb (12.0-16.0) g/dl Hct (37.0-47.0) % MCV (80.0-98.0) fL MCH (27.0-33.0) pg MCHC (31.0-35.0) g/dl RDW (11.0-16.0) % Plt Count (160-400) X10*3/uL MPV (9.4-12.3) fL Immature Gran % (Auto) (0.0-0.4) % Neut % (Auto) (45-73) % Lymph % (Auto) (20-40) % [place] % (Auto) (2-11) % Eos % (Auto) (0-4) % Baso % (Auto) (0-2) % Lymph # (Auto) (1.2-4.9) X10*3/uL [place] # (Auto) (0.1-1.2) X10*3/uL Eos # (Auto) (0.0-0.4) X10*3/uL Baso # (Auto) (0.0-0.2) X10*3/uL Abs Immat Gran (auto) (0.00-0.03) X10*3/uL Absolute Neuts (auto) (2.0-8.3) x10*3/uL Absolute Nucleated RBC (0.0-0.012) X10*3/uL Nucleated RBC % (auto) (0.0-0.2) /100WBC Smear Tech's Comments PT (10.0-13.1) SEC INR (0.9-1.1) Sodium (135-145) mmol/L Potassium (3.3-5.1) mmol/L Chloride (96-108) mmol/L Carbon Dioxide (22-29) mmol/L Anion Gap (12-20) BUN (9-16) mg/dL Creatinine (0.5-1.4) mg/dL Estim Creat Clear Calc Estimated GFR Random Glucose (60-115) mg/dL Calcium (8.4-10.2) mg/dL Total Bilirubin (0.0-1.0) mg/dL Direct Bilirubin (0.0-0.5) mg/dL AST (5-31) U/L ALT (0-31) U/L Alkaline Phosphatase (39-117) U/L Troponin I High Sens 6.6 (<3.5-17.0) ng/L B-Natriuretic Peptide 79 (<100) pg/mL Total Protein (6.5-8.0) g/dL Albumin (3.5-5.0) g/dL COVID-19 (KIYA) Negative (Negative) COVID-19 Clin Com See Note Critical Care Time Critical Care Time Critical Care Time: Yes Total Critical Care Time: 45 Attestation: I have personally provided critical care time. Time includes review of lab data, radiology results, discussion with consultants, and monitoring for potential decompensation. Intervention performed as documented. Discharge Plan Discharge Clinical Impression: Ascites, Acute hyponatremia Patient Disposition: Admitted As Inpatient Prescriptions: No Action zinc sulfate [Orazinc] 50 mg zinc (220 mg) capsule 50 mg PO DAILY Qty: 30 4RF Humalog KwikPen Insulin 200 unit/mL (3 mL) insulin pen 30 unit subcut BIDWM Rx Instructions: 26 units if blood sugar less than 200 mg/dL and 30 units is more than 200 mg/dL subcut 3 times a day; Toujeo Max U-300 SoloStar 300 unit/mL (3 mL) insulin pen 80 unit subcut BEDTIME cefuroxime axetil 250 mg Tablet 250 mg PO Q12H 3 Days Qty: 6 0RF omeprazole 40 mg Capsule,Delayed Release(Dr/Ec) 40 mg PO DAILY@0630 Qty: 30 0RF spironolactone 25 mg Tablet 75 mg PO BID@0900,1800 30 Days Qty: 180 0RF Protocol: Hold for SBP< HOLD for SBP < : 90 azithromycin 500 mg Tablet 500 mg PO Q24H 3 Days Qty: 3 0RF lactulose 20 gram/30 mL Solution 20 g PO DAILY 30 Days Qty: 900 0RF (DME) FreeStyle Lite Strips Strip See Rx Instructions .ROUTE .MEDSUPPLY Qty: 10 Rx Instructions: test 3x a day (DME) lancets [FreeStyle Lancets] 28 gauge misc See Rx Instructions .ROUTE .MEDSUPPLY Qty: 100 Rx Instructions: test 3x a day albuterol sulfate [ProAir HFA] 90 mcg/actuation HFA aerosol inhaler 2 puff inhalation Q6H PRN (Reason: Wheezing) Flovent HFA 220 mcg/actuation HFA aerosol inhaler 2 puff inhalation BID gabapentin 300 mg capsule 300 mg PO BEDTIME levothyroxine 50 mcg tablet 50 mcg PO DAILY vitamin A 10,000 unit capsule 1 cap PO DAILY Trulicity 1.5 mg/0.5 mL pen injector 1.5 mg subcut MO furosemide 20 mg tablet 20 mg PO DAILY Qty: 30 2RF
[2022-05-30 17:31] LABS: Basophils Percent Auto 0.3 % (0-2); Hemoglobin 11.6 g/dl (12.0-16.0); Mean Corpuscular Volume 92.8 fL (80.0-98.0); PLT CLUMP 1; SCAN SMEAR FLAG 1
[2022-05-30 17:33] LABS: Eosinophils Percent Auto 0.1 % (0-4); Hematocrit 34.6 % (37.0-47.0); Imm Gran Abs Auto 0.05 X10*3/uL (0.00-0.03); Imm Gran Pct Auto 0.5 % (0.0-0.4); Lymphocytes Absolute Auto 0.6 X10*3/uL (1.2-4.9); Lymphocytes Percent Auto 5.6 % (20-40); MANUAL DIFF FLAG SCAN; Mean Corpuscular HGB Conc 33.5 g/dl (31.0-35.0); Mean Corpuscular Hemoglobin 31.1 pg (27.0-33.0); Mean Platelet Volume 11.1 fL (9.4-12.3); Monocytes Absolute Auto 1.1 X10*3/uL (0.1-1.2); Monocytes Percent Auto 10.2 % (2-11); Neutrophils Percent Auto 83.3 % (45-73); Red Blood Count 3.73 X10*6/uL (4.20-5.50); Red Cell Distribution Width 16.6 % (11.0-16.0)
[2022-05-30 17:43] LABS: INTERNATIONAL NORM RATIO 2.2 (0.9-1.1); Prothrombin Time 25.9 SEC (10.0-13.1)
[2022-05-30 17:51] LABS: Alanine Aminotransferase 17 U/L (0-31); Albumin Level 2.5 g/dL (3.5-5.0); Alkaline Phosphatase 112 U/L (39-117); Anion Gap 14 (12-20); Aspartate Amino Transferase 34 U/L (5-31); Bilirubin Direct 1.6 mg/dL (0.0-0.5); Bilirubin Total 6.6 mg/dL (0.0-1.0); Blood Urea Nitrogen 9 mg/dL (9-16); Calcium 8.6 mg/dL (8.4-10.2); Carbon Dioxide 27 mmol/L (22-29); Chloride 92 mmol/L (96-108); Creatinine Clr Calc Pharmacy 128.8; Estimated Glomerular Filt Rate > 60; Glucose Random 169 mg/dL (60-115); Potassium 4.6 mmol/L (3.3-5.1); Sodium 128 mmol/L (135-145); Total Protein 7.1 g/dL (6.5-8.0)
[2022-05-30 17:52] LABS: COVID-19 Test Negative (Negative); IDNOW Serial# 6674DD1D
[2022-05-30 17:53] LABS: B Type Natriuretic Peptide 79 pg/mL (<100)
[2022-05-30 17:55] LABS: Troponin-I High Sensitivity 6.6 ng/L (<3.5-17.0)
[2022-05-30 18:08] LABS: White Blood Count 10.9 X10*3/uL (4.8-10.8)
[2022-05-30 18:10] LABS: Platelet Count 34 X10*3/uL (160-400)
[2022-05-30 18:11] LABS: SLIDE REVIEW VERIFIED
[2022-05-30 19:22] VITALS: BP 121/76; PULSE 124; RESP 18; TEMP 36.7; O2SAT 99
[2022-05-30 21:26] VITALS: BP 129/78; PULSE 121; RESP 22; TEMP 36.6; O2SAT 97
--- NOTE | 2022-05-30 23:22 | PM.IMHP ---
History of Present Illness Date of Service: 05/30/22 Chief Complaint: Abdominal distension shoulder pain History is obtained with the help of an ophthalmologist retina specialist as she is Thai-speaking only. This is a 46-year-old female with past medical history of asthma, diabetes, dyslipidemia, HTN, goiter, or ASA, other cirrhosis secondary to SERVIN and with ascites, requiring frequent paracentesis presents to the hospital with complaints of abdominal distension, and left shoulder pain radiating down to her left lung and breast. She states the pain is 10/10, constant, no relieving factors. Denies having any fever or chills, reports increased abdominal distension, some shortness of breath due to the ascites, reports cough, with some phlegm. Has been having diarrhea with no abdominal pain. Denies any fever or chills. Reports no bleeding, no melena or hematemesis. On arrival to the ED patient hemodynamically stable with a heart rate of 121, otherwise no significant abnormality Labs are significant for MVC of 10.9, hemoglobin of 11.6, hematocrit 34.6 which is around her baseline , PT of 20 high 0.9, INR of 2.2, platelet count of 34 was dropped from most recent, sodium of 128, Total bili of 6.6, direct of 1.6, this appears to have increased from April, albumin of 2.5 Chest x-ray shows bibasilar streaky airspace opacities, atelectasis versus infiltrate, no acute fracture or dislocation with respect to the left shoulder Review of Systems Review of Systems: Yes all other systems are reviewed and are negative [facility] Medical History Acromegaly Asthma Diabetes type 2, uncontrolled Diabetic nephropathy associated with type 2 diabetes mellitus Dyslipidemia Elevated TSH Goiter HTN (hypertension) 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 insulin Morbid obesity Non-toxic multinodular goiter AMY (obstructive sleep apnea) PCOS (polycystic ovarian syndrome) Status post abdominal paracentesis Family History Father Unknown family medical history Mother Hx of type 1 diabetes mellitus Surgical History Hx of colonoscopy Hx of endoscopy Social History Household Members: Significant Other Housing: Apartment Do you presently have visiting nurse or other home services: No Alcohol intake: never Patient Tobacco Use Status: Former Tobacco user Quit Date: 7 yrs ago Smoked in Last 30 Days: No Use of substances other than those prescribed or required for medical reasons: No Advance Directives: No Advance Directives Information Provided: No Patient : No service: No Current occupational status: disabled 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 Meds Allergies Allergy/AdvReac Type Severity Reaction Status Date / Time ibuprofen [From MOTRIN] Allergy Intermediate RASH Verified 04/30/22 11:52 penicillin V Allergy Mild hives Verified 04/30/22 11:52 codeine Allergy Unknown Verified 04/28/22 12:04 Rx- listed on H&P Home Medications Medication Instructions Recorded Confirmed Last Taken Type albuterol sulfate 90 mcg/actuation 2 puff inhalation Q6H PRN Wheezing 08/16/20 05/31/22 09/24/21 History aerosol inhaler (ProAir HFA) blood sugar diagnostic (FreeStyle #10 ea 08/16/20 08/16/20 Unknown History Lite Strips) fluticasone propionate 220 2 puff inhalation BID 08/16/20 05/31/22 04/29/22 History mcg/actuation HFA aerosol inhaler (Flovent HFA) lancets 28 gauge (FreeStyle #100 ea 08/16/20 08/16/20 Unknown History Lancets) gabapentin 300 mg capsule 300 mg PO BEDTIME pain 11/04/21 05/31/22 04/29/22 History levothyroxine 50 mcg tablet 50 mcg PO DAILY 11/04/21 05/31/22 04/29/22 History dulaglutide 1.5 mg/0.5 mL 1.5 mg subcut MO 04/28/22 05/31/22 04/28/22 History subcutaneous pen [facility]or ([facility]) vitamin A 10,000 unit capsule 1 cap PO DAILY 04/28/22 05/31/22 04/29/22 History insulin glargine U-300 conc 300 80 unit subcut BEDTIME 04/30/22 05/31/22 04/29/22 History unit/mL (3 mL) subcutaneous pen (Toujeo Max U-300 SoloStar) insulin lispro 200 unit/mL (3 mL) 30 unit subcut BIDWM 04/30/22 04/30/22 04/29/22 History subcutaneous pen (Humalog KwikPen U-200 Insulin) insulin lispro 100 unit/mL subcut 05/31/22 Unknown History subcutaneous pen insulin lispro 100 unit/mL subcut 05/31/22 Unknown History subcutaneous pen ipratropium 0.5 mg-albuterol 3 mg 1 amp inhalation QID PRN dyspnea 05/31/22 05/31/22 Unknown History (2.5 mg base)/3 mL nebulization soln lisinopril 2.5 mg tablet 1 tab PO DAILY 05/31/22 05/31/22 Unknown History loratadine 10 mg tablet 1 tab PO Q OTHER DAY 05/31/22 05/31/22 Unknown History Physical Exam Vital Signs and Narrative: Vital Signs: Last Vital Signs Temp 97.8 F 05/30/22 21:26 Pulse 121 H 05/30/22 21:26 Resp 22 H 05/30/22 21:26 BP 129/78 05/30/22 21:26 Pulse Ox 97 05/30/22 21:26 O2 Del Method 05/30/22 21:26 BMI result Body Mass Index 56.5 Const: General: cooperative and no acute distress Orientation/consciousness: patient oriented x3 Eyes: General: appearance normal, both eyes and all related structures Resp: Effort & Inspection: normal respiratory effort Auscultation: clear to auscultation bilaterally Cardio: Rate: regular rate Rhythm: regular rhythm GI: Other: Distended abdomen, no rebound or guarding, nontender Palpation (GI): Soft to palpation Auscultation: normal bowel sounds Skin: General skin exam: no rashes or lesions noted Neuro: General: patient oriented x3 Cognition (Neuro): normal cognition Extrem: Other: In no limited range of motion of left shoulder, no tenderness on movement General: Yes normal to inspection and Yes no pedal edema Results Labs 05/30/22 17:26 05/30/22 17:26 Labs: Laboratory Results - last 24 hr 05/30/22 05/30/22 05/30/22 17:26 17:26 17:26 MCV 92.8 MCH 31.1 MCHC 33.5 RDW 16.6 H Plt Count 34 L D MPV 11.1 Immature Gran % (Auto) 0.5 H Neut % (Auto) 83.3 H Lymph % (Auto) 5.6 L [place] % (Auto) 10.2 Eos % (Auto) 0.1 Baso % (Auto) 0.3 Lymph # (Auto) 0.6 L [place] # (Auto) 1.1 Eos # (Auto) 0.0 Baso # (Auto) 0.0 Abs Immat Gran (auto) 0.05 H Absolute Neuts (auto) 9.0 H Absolute Nucleated RBC 0.000 Nucleated RBC % (auto) 0.0 Smear Tech's Comments VERIFIED PT 25.9 H INR 2.2 H Anion Gap 14 Estim Creat Clear Calc 128.8 Estimated GFR > 60 Random Glucose 169 H Calcium 8.6 Total Bilirubin 6.6 H Direct Bilirubin 1.6 H AST 34 H ALT 17 Alkaline Phosphatase 112 Troponin I High Sens B-Natriuretic Peptide Total Protein 7.1 Albumin 2.5 L COVID-19 (KIYA) COVID-[employer] 05/30/22 05/30/22 05/30/22 17:26 17:26 17:26 MCV MCH MCHC RDW Plt Count MPV Immature Gran % (Auto) Neut % (Auto) Lymph % (Auto) [place] % (Auto) Eos % (Auto) Baso % (Auto) Lymph # (Auto) [place] # (Auto) Eos # (Auto) Baso # (Auto) Abs Immat Gran (auto) Absolute Neuts (auto) Absolute Nucleated RBC Nucleated RBC % (auto) Smear Tech's Comments PT INR Anion Gap Estim Creat Clear Calc Estimated GFR Random Glucose Calcium Total Bilirubin Direct Bilirubin AST ALT Alkaline Phosphatase Troponin I High Sens 6.6 B-Natriuretic Peptide 79 Total Protein Albumin COVID-19 (KIYA) Negative COVID-19 Clin Com See Note Assessment and Plan (1) Pneumonia: Status: Acute (2) Ascites: Status: Acute (3) Acute hyponatremia: Status: Acute (4) Thrombocytopenia: Status: Acute (5) Coagulopathy: Status: Acute Plan 46-year-old female with past medical history of liver cirrhosis secondary to SERVIN in the hospital with complaints of left-sided shoulder pain radiating to the long per patient. She was found to have the following # acute pneumonia as seen on chest x-ray - she does have tachycardia, leukocytosis, afebrile, no hypoxia - will treat with IV antibiotics - follow cultures # ascites - secondary to liver cirrhosis - given her low platelet counts, will consult IR for paracentesis as she may be a high risk for bleed - no hypoxia at this time - continue lasix # acute hyponatremia - likely secondary to hypervolemic hyponatremia - will consult Nephrology - hold off on IVF - follwo bmp # Coagulopathy/thrombocytopenia - likely 2/2 liver cirrhosis - no acute bleed - follow cbc # DM - low dose sliding scale - continue home insulin # hypothyroidism - continue levothyroxine # HTN - stable - continue antihypertensive DVT ppx: SCDs Time Spent With Patient Time: Total time managing care of this patient today ____ minutes. Quality Stroke Does the patient have a stroke diagnosis?: No VTE Prior VTE?: No VTE Risk Level:: Medical - moderate - high VTE Device Contraindication: N/A - Device Ordered VTE Drug Contraindication: Treatment Not Indicated
[2022-05-31 00:41] VITALS: BP 111/63; PULSE 124; RESP 17; TEMP 37; O2SAT 99
--- NOTE | 2022-05-31 01:27 | PC.NURSE ---
med rec completed
--- NOTE | 2022-05-31 01:28 | PC.NURSE ---
this rn and production expediter assisted pt to bathroom. pt assisted back into bed. states she feels okay walking at this time no new needs at this time
[2022-05-31] MEDS: Morphine Sulfate 4 MG/ML CARTRIDGE IVPUSH (04:10)
--- NOTE | 2022-05-31 04:18 | PC.NURSE ---
pt reports 10 pain to this rn. dr mendoza notified. pt medicated according to jun. pt boosted up in bed by this rn and educational administration teacher. pt resting on stretcher with no new needs at this time
--- NOTE | 2022-05-31 06:01 | PC.NURSE ---
pt able to sleep at this time. pt resting on back on stretcher
[2022-05-31 07:17] LABS: MANUAL DIFF FLAG NO
[2022-05-31 07:23] LABS: Basophils Percent Auto 0.4 % (0-2); Eosinophils Percent Auto 0.3 % (0-4); Hematocrit 32.8 % (37.0-47.0); Hemoglobin 10.7 g/dl (12.0-16.0); Imm Gran Abs Auto 0.06 X10*3/uL (0.00-0.03); Imm Gran Pct Auto 0.5 % (0.0-0.4); Lymphocytes Absolute Auto 0.8 X10*3/uL (1.2-4.9); Lymphocytes Percent Auto 6.8 % (20-40); Mean Corpuscular HGB Conc 32.6 g/dl (31.0-35.0); Mean Corpuscular Hemoglobin 30.6 pg (27.0-33.0); Mean Corpuscular Volume 93.7 fL (80.0-98.0); Mean Platelet Volume 11.9 fL (9.4-12.3); Monocytes Absolute Auto 1.1 X10*3/uL (0.1-1.2); Neutrophils Absolute Auto 9.3 x10*3/uL (2.0-8.3); Red Cell Distribution Width 17.1 % (11.0-16.0); White Blood Count 11.3 X10*3/uL (4.8-10.8)
[2022-05-31 07:32] LABS: Platelet Count 32 X10*3/uL (160-400)
[2022-05-31 07:33] LABS: Anion Gap 14 (12-20); Blood Urea Nitrogen 12 mg/dL (9-16); Calcium 8.2 mg/dL (8.4-10.2); Carbon Dioxide 26 mmol/L (22-29); Chloride 93 mmol/L (96-108); Creatinine Clr Calc Pharmacy 123.9; Estimated Glomerular Filt Rate > 60; Glucose Random 161 mg/dL (60-115); Potassium 4.5 mmol/L (3.3-5.1); Sodium 128 mmol/L (135-145)
[2022-05-31] MEDS: cefTRIAXone sodium 1 GM in 0.9 % Sodium Chloride 50 ML IV (07:56)
--- NOTE | 2022-05-31 07:56 | PC.NURSE ---
CRITICAL LACTIC 3.0 RECEIVED. DOCUMENTED PER PROTOCOL, PRIMARY RN AWARE.
[2022-05-31] MEDS: Azithromycin 500 MG in 0.9 % Sodium Chloride 250 ML 125 MG IV (08:36)
[2022-05-31 09:17] LABS: Reflex Lactate? Lactic Acid Added
--- NOTE | 2022-05-31 09:22 | PHA.MEDREC ---
Pharmacy Consult ? Medication Reconciliation Pharmacy has completed the medication reconciliation. Utilized [employer] services and spoke to patient.
--- NOTE | 2022-05-31 09:51 | PC.NURSE ---
hospitalist notified of Lactic Acid 2.8
[2022-05-31 09:53] LABS: ~Lactic Acid-LAB USE ONLY 2.8 mmol/L (0.5-2.0)
[2022-05-31] MEDS: Lactulose 20 GM/30 ML SOLUTION PO (09:56)
[2022-05-31] MEDS: lisinopriL 2.5 MG TABLET PO (09:56)
[2022-05-31] MEDS: Levothyroxine Sodium 50 MCG TABLET PO (09:56)
[2022-05-31] MEDS: Spironolactone 25 MG TABLET 75 MG PO ×2 (09:56→17:24)
[2022-05-31] MEDS: Furosemide 40 MG/4 ML VIAL IVPUSH ×2 (09:57→17:24)
[2022-05-31 09:59] LABS: Cancel Lactic Acid Canceled
[2022-05-31 10:26] VITALS: BP 114/69; PULSE 110; RESP 17; TEMP 36.7; O2SAT 90
[2022-05-31] MEDS: ondansetron HCL 4 MG/2 ML VIAL IVPUSH (10:48)
--- NOTE | 2022-05-31 11:03 | P.PNIM_ITS ---
Subjective Subjective Date of Service: 05/31/22 Interval History: Seen and evaluated this morning Requiring oxygen supplement this morning Reported feeling short of breath and swollen No reported other overnight events Denies any fever, chills Review of Systems Review of Systems: Yes all other systems are reviewed and are negative Physical Exam Vital Signs: Vital Signs: Last Vital Signs Temp 98.0 F 05/31/22 10:26 Pulse 110 H 05/31/22 10:26 Resp 17 05/31/22 10:26 BP 114/69 05/31/22 10:26 Pulse Ox 90 L 05/31/22 10:26 O2 Del Method 05/31/22 10:26 O2 Flow Rate 2 05/31/22 10:26 BMI result Body Mass Index 56.5 Const: Other: Constitutional : Awake, interactive, not in distress Neck : Normal inspection, Supple Cardiovascular : RRR, no JVP, +2 bilateral lower extremity edema Respiratory : good bilateral air entry but decreased at the bases, no wheezes Gastrointestinal: soft, lax, Normal bowel sounds, Non tender, significantly distended with moderate amount of ascites Skin : Warm, Dry Neurological : Alert & oriented x3, No focal deficit Objective Data Active Medications Acetaminophen (Acetaminophen 325 Mg Tablet) 650 mg PO Q6H PRN PRN Reason: Pain, Mild (Pain Scale 1-3) Albuterol Sulfate (Albuterol Sulfate 90 Mcg 8 Gm Inhaler) 2 puff INHALE Q6H PRN PRN Reason: Wheezing Albuterol/Ipratropium (Albuterol/Iprat 2.5/0.5mg 3 Ml Ampul.Neb) 3 ml INHALE QID PRN PRN Reason: dyspnea Docusate Sodium (Docusate Sodium 100 Mg Capsule) 100 mg PO DAILY PRN PRN Reason: Constipation Docusate Sodium (Docusate Sodium 100 Mg Capsule) 100 mg PO BID PRN PRN Reason: constipation Fluticasone Propionate (Fluticasone Propionate 250 Mcg Blst.W.Dev) 2 puff INHALE RBID [facility] Furosemide (Furosemide 40 Mg/4 Ml Vial) 40 mg IVPUSH BID@0900,1800 [facility]; Protocol Last Admin: 05/31/22 09:57 Dose: 40 mg Documented By: BRODERICK Gabapentin (Gabapentin 300 Mg Capsule) 300 mg PO BEDTIME [facility] Ceftriaxone Sodium 1 gm/ (Sodium Chloride) 50 mls @ 100 mls/hr IV Q24H [facility] Last Infusion: 05/31/22 08:35 Dose: 0 mls/hr Documented By: SUNG-YUE Azithromycin 500 mg/ Sodium (Chloride) 250 mls @ 125 mls/hr IV Q24H [facility] Last Infusion: 05/31/22 10:18 Dose: 0 mls/hr Documented By: BRODERICK Insulin Glargine (Insulin Glargine,Hum.Rec.Anlog 100 Unit/Ml 10 Ml Vial) 64 unit SUBCUT BEDTIME [facility] Insulin Human Lispro (Insulin Lispro 100 Unit/Ml 3 Ml Vial) 0 unit SUBCUT QIDACHS [facility]; Protocol Lactulose (Lactulose 20 Gm/30 Ml Solution) 20 gm PO DAILY [facility] Last Admin: 05/31/22 09:56 Dose: 20 gm Documented By: BRODERICK Lactulose (Lactulose 20 Gm/30 Ml Solution) 20 gm PO DAILY PRN PRN Reason: Constipation Levothyroxine Sodium (Levothyroxine Sodium 50 Mcg Tablet) 50 mcg PO DAILY@0600 [facility] Last Admin: 05/31/22 09:56 Dose: 50 mcg Documented By: BRODERICK Lisinopril (Lisinopril 2.5 Mg Tablet) 2.5 mg PO DAILY [facility]; Protocol Last Admin: 05/31/22 09:56 Dose: 2.5 mg Documented By: BRODERICK Loratadine (Loratadine 10 Mg Tablet) 10 mg PO DAILY PRN PRN Reason: Allergic Symptoms Omeprazole (Omeprazole 40 Mg Capsule.Dr) 40 mg PO DAILY@0630 [facility] Ondansetron HCl (Ondansetron Hcl 4 Mg/2 Ml Vial) 4 mg IVPUSH Q8H PRN PRN Reason: Nausea and Vomiting Last Admin: 05/31/22 10:48 Dose: 4 mg Documented By: BRODERICK Senna (Sennosides 8.6 Mg Tablet) 8.6 mg PO DAILY PRN PRN Reason: Constipation Sodium Chloride (0.9 % Sodium Chloride Flush 3 Ml Syringe) 3 ml IVFLUSH QSHIFT [facility] Last Admin: 05/31/22 08:35 Dose: Not Given Documented By: BRODERICK Non-Admin Reason: IV Running Spironolactone (Spironolactone 25 Mg Tablet) 75 mg PO BID@0900,1800 [facility]; Protocol Last Admin: 05/31/22 09:56 Dose: 75 mg Documented By: BRODERICK Vitamin E (Vitamin E (Dl,Tocopheryl Acet) 180 Mg (400 Unit) Capsule) 180 mg PO BID [facility] Zinc Sulfate (Zinc Sulfate 220 Mg Capsule) 50 mg PO DAILY [facility] Last Admin: 05/31/22 09:57 Dose: Not Given Documented By: BRODERICK Non-Admin Reason: Med Not Available Labs 05/31/22 07:06 05/31/22 07:06 Labs: Laboratory Results - last 24 hr 05/30/22 05/30/22 05/30/22 17:26 17:26 17:26 MCV 92.8 MCH 31.1 MCHC 33.5 RDW 16.6 H Plt Count 34 L D MPV 11.1 Immature Gran % (Auto) 0.5 H Neut % (Auto) 83.3 H Lymph % (Auto) 5.6 L [place] % (Auto) 10.2 Eos % (Auto) 0.1 Baso % (Auto) 0.3 Lymph # (Auto) 0.6 L [place] # (Auto) 1.1 Eos # (Auto) 0.0 Baso # (Auto) 0.0 Abs Immat Gran (auto) 0.05 H Absolute Neuts (auto) 9.0 H Absolute Nucleated RBC 0.000 Nucleated RBC % (auto) 0.0 Smear Tech's Comments VERIFIED PT 25.9 H INR 2.2 H Anion Gap 14 Estim Creat Clear Calc 128.8 Estimated GFR > 60 Random Glucose 169 H Lactic Acid Lactic Acid F/U @ 2Hr Calcium 8.6 Total Bilirubin 6.6 H Direct Bilirubin 1.6 H AST 34 H ALT 17 Alkaline Phosphatase 112 Troponin I High Sens B-Natriuretic Peptide Total Protein 7.1 Albumin 2.5 L COVID-19 ([facility]) COVID-19 Clin Com 05/30/22 05/30/22 05/30/22 17:26 17:26 17:26 MCV MCH MCHC RDW Plt Count MPV Immature Gran % (Auto) Neut % (Auto) Lymph % (Auto) [place] % (Auto) Eos % (Auto) Baso % (Auto) Lymph # (Auto) [place] # (Auto) Eos # (Auto) Baso # (Auto) Abs Immat Gran (auto) Absolute Neuts (auto) Absolute Nucleated RBC Nucleated RBC % (auto) Smear Tech's Comments PT INR Anion Gap Estim Creat Clear Calc Estimated GFR Random Glucose Lactic Acid Lactic Acid F/U @ 2Hr Calcium Total Bilirubin Direct Bilirubin AST ALT Alkaline Phosphatase Troponin I High Sens 6.6 B-Natriuretic Peptide 79 Total Protein Albumin COVID-19 ([facility]) Negative COVID-19 Clin Com See Note 05/31/22 05/31/22 05/31/22 07:06 07:06 07:06 MCV 93.7 MCH 30.6 MCHC 32.6 RDW 17.1 H Plt Count 32 L MPV 11.9 Immature Gran % (Auto) 0.5 H Neut % (Auto) 82.0 H Lymph % (Auto) 6.8 L [place] % (Auto) 10.0 Eos % (Auto) 0.3 Baso % (Auto) 0.4 Lymph # (Auto) 0.8 L [place] # (Auto) 1.1 Eos # (Auto) 0.0 Baso # (Auto) 0.0 Abs Immat Gran (auto) 0.06 H Absolute Neuts (auto) 9.3 H Absolute Nucleated RBC 0.000 Nucleated RBC % (auto) 0.0 Smear Tech's Comments PT INR Anion Gap 14 Estim Creat Clear Calc 123.9 Estimated GFR > 60 Random Glucose 161 H Lactic Acid 3.0 H* Lactic Acid F/U @ 2Hr Calcium 8.2 L Total Bilirubin Direct Bilirubin AST ALT Alkaline Phosphatase Troponin I High Sens B-Natriuretic Peptide Total Protein Albumin COVID-19 ([facility]) COVID-19 Clin Com 05/31/22 09:28 MCV MCH MCHC RDW Plt Count MPV Immature Gran % (Auto) Neut % (Auto) Lymph % (Auto) [place] % (Auto) Eos % (Auto) Baso % (Auto) Lymph # (Auto) [place] # (Auto) Eos # (Auto) Baso # (Auto) Abs Immat Gran (auto) Absolute Neuts (auto) Absolute Nucleated RBC Nucleated RBC % (auto) Smear Tech's Comments PT INR Anion Gap Estim Creat Clear Calc Estimated GFR Random Glucose Lactic Acid Lactic Acid F/U @ 2Hr 2.8 H* Calcium Total Bilirubin Direct Bilirubin AST ALT Alkaline Phosphatase Troponin I High Sens B-Natriuretic Peptide Total Protein Albumin COVID-19 ([facility]) COVID-19 Clin Com Assessment and Plan (1) Coagulopathy: Status: Acute (2) Thrombocytopenia: Status: Acute (3) Pneumonia: Status: Acute (4) Ascites: Status: Acute (5) Acute hyponatremia: Status: Acute Plan 46-year-old female with past medical history of liver cirrhosis secondary to SERVIN in the hospital with complaints of left-sided shoulder pain radiating to the long per patient. She was found to have the following # community-acquired pneumonia Pending blood cultures Continue IV antibiotics Wean oxygen down as tolerated # ascites secondary to liver cirrhosis IR recommended platelets above 50 and INR below 2 before doing paracentesis Continue IV Lasix, spironolactone Monitor intake and output Restricted fluid intake # hyponatremia Acute on chronic from hypervolemic hyponatremia consult Nephrology Follow BMP # Coagulopathy/thrombocytopenia INR 2.2 2/2 liver cirrhosis no acute bleed follow cbc # type 2 diabetes SSI, Lantus Diabetic diet # hypothyroidism levothyroxine # HTN continue antihypertensive DVT ppx: SCDs The patient will need overnight hospital stay to continue treatment for pneumonia, ascites pending possible interventional radiology intervention. Time Spent With Patient Time: Total time managing care of this patient today ____ minutes. Quality Stroke Does the patient have a stroke diagnosis?: No VTE Prior VTE?: No VTE Risk Level:: Medical - moderate - high VTE Device Contraindication: N/A - Device Ordered VTE Drug Contraindication: Treatment Not Indicated
--- NOTE | 2022-05-31 11:36 | PM.CNNEP ---
History of Present Illness Reason for Consult Consult date: 05/31/22 Chief Complaint Chief complaint: hyponatremia, thrombocytopenia, Ascites History of Present Illness Narrative: 46-year-old female with past medical history of asthma, diabetes, dyslipidemia, HTN, goiter, or ASA, 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 She states the pain is 10/10, constant, no relieving factors.? Denies having any fever or chills, reports increased abdominal distension, some shortness of breath due to the ascites, reports cough, with some phlegm.? Has been having diarrhea with no abdominal pain.? Denies any fever or chills.? Reports no bleeding, no melena or hematemesis.? PMFSH Past Medical History Medical History Acromegaly Asthma Diabetes type 2, uncontrolled Diabetic nephropathy associated with type 2 diabetes mellitus Dyslipidemia Elevated TSH Goiter HTN (hypertension) 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 residential (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 insulin Morbid obesity Non-toxic multinodular goiter AMY (obstructive sleep apnea) PCOS (polycystic ovarian syndrome) Status post abdominal paracentesis Family History Family History Father Unknown family medical history Mother Hx of type 1 diabetes mellitus Surgical History Surgical History Hx of colonoscopy Hx of endoscopy Social History Social History Household Members: Spouse Housing: House Do you presently have visiting nurse or other home services: No Alcohol intake: never Patient Tobacco Use Status: Former Tobacco user Quit Date: 7 yrs ago Substance Use Type: Marijuana service: No Current occupational status: disabled 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 Meds Allergies Allergy/AdvReac Type Severity Reaction Status Date / Time ibuprofen [From MOTRIN] Allergy Intermediate RASH Verified 04/30/22 11:52 penicillin V Allergy Mild hives Verified 04/30/22 11:52 codeine Allergy Unknown Verified 04/28/22 12:04 Rx- listed on H&P lidocaine Allergy Blister Verified 06/03/22 08:17 Active Medications: Current Medications Acetaminophen (Acetaminophen 325 Mg Tablet) 650 mg PO Q6H PRN PRN Reason: Pain, Mild (Pain Scale 1-3) Albuterol Sulfate (Albuterol Sulfate 90 Mcg 8 Gm Inhaler) 2 puff INHALE Q6H PRN PRN Reason: Wheezing Albuterol/Ipratropium (Albuterol/Iprat 2.5/0.5mg 3 Ml Ampul.Neb) 3 ml INHALE QID PRN PRN Reason: dyspnea Docusate Sodium (Docusate Sodium 100 Mg Capsule) 100 mg PO DAILY PRN PRN Reason: Constipation Docusate Sodium (Docusate Sodium 100 Mg Capsule) 100 mg PO BID PRN PRN Reason: constipation Fluticasone Propionate (Fluticasone Propionate 250 Mcg Blst.W.Dev) 2 puff INHALE RBID [facility] Furosemide (Furosemide 40 Mg/4 Ml Vial) 40 mg IVPUSH BID@0900,1800 [facility]; Protocol Last Admin: 05/31/22 09:57 Dose: 40 mg Gabapentin (Gabapentin 300 Mg Capsule) 300 mg PO BEDTIME [facility] Ceftriaxone Sodium 1 gm/ (Sodium Chloride) 50 mls @ 100 mls/hr IV Q24H [facility] Last Infusion: 05/31/22 08:35 Dose: Infused Azithromycin 500 mg/ Sodium (Chloride) 250 mls @ 125 mls/hr IV Q24H [facility] Last Infusion: 05/31/22 10:18 Dose: Infused Insulin Glargine (Insulin Glargine,Hum.Rec.Anlog 100 Unit/Ml 10 Ml Vial) 64 unit SUBCUT BEDTIME [facility] Insulin Human Lispro (Insulin Lispro 100 Unit/Ml 3 Ml Vial) 0 unit SUBCUT QIDACHS [facility]; Protocol Lactulose (Lactulose 20 Gm/30 Ml Solution) 20 gm PO DAILY [facility] Last Admin: 05/31/22 09:56 Dose: 20 gm Lactulose (Lactulose 20 Gm/30 Ml Solution) 20 gm PO DAILY PRN PRN Reason: Constipation Levothyroxine Sodium (Levothyroxine Sodium 50 Mcg Tablet) 50 mcg PO DAILY@0600 [facility] Last Admin: 05/31/22 09:56 Dose: 50 mcg Lisinopril (Lisinopril 2.5 Mg Tablet) 2.5 mg PO DAILY [facility]; Protocol Last Admin: 05/31/22 09:56 Dose: 2.5 mg Loratadine (Loratadine 10 Mg Tablet) 10 mg PO DAILY PRN PRN Reason: Allergic Symptoms Omeprazole (Omeprazole 40 Mg Capsule.Dr) 40 mg PO DAILY@0630 [facility] Ondansetron HCl (Ondansetron Hcl 4 Mg/2 Ml Vial) 4 mg IVPUSH Q8H PRN PRN Reason: Nausea and Vomiting Last Admin: 05/31/22 10:48 Dose: 4 mg Senna (Sennosides 8.6 Mg Tablet) 8.6 mg PO DAILY PRN PRN Reason: Constipation Sodium Chloride (0.9 % Sodium Chloride Flush 3 Ml Syringe) 3 ml IVFLUSH QSHIFT [facility] Last Admin: 05/31/22 08:35 Dose: Not Given Spironolactone (Spironolactone 25 Mg Tablet) 75 mg PO BID@0900,1800 [facility]; Protocol Last Admin: 05/31/22 09:56 Dose: 75 mg Vitamin E (Vitamin E (Dl,Tocopheryl Acet) 180 Mg (400 Unit) Capsule) 180 mg PO BID [facility] Zinc Sulfate (Zinc Sulfate 220 Mg Capsule) 50 mg PO DAILY [facility] Last Admin: 05/31/22 09:57 Dose: Not Given Home Medications Medication Instructions Recorded Confirmed Last Taken Type albuterol sulfate 90 mcg/actuation 2 puff inhalation Q6H PRN Wheezing 08/16/20 05/31/22 3 Days Ago History aerosol inhaler (ProAir HFA) ~05/28/22 blood sugar diagnostic (FreeStyle #10 ea 08/16/20 08/16/20 Unknown History Lite Strips) fluticasone propionate 220 2 puff inhalation BID 08/16/20 05/31/22 3 Days Ago History mcg/actuation HFA aerosol inhaler ~05/28/22 (Flovent HFA) lancets 28 gauge (FreeStyle #100 ea 08/16/20 08/16/20 Unknown History Lancets) gabapentin 300 mg capsule 300 mg PO BEDTIME pain 11/04/21 05/31/22 3 Days Ago History ~05/28/22 levothyroxine 50 mcg tablet 50 mcg PO DAILY@0600 11/04/21 05/31/22 3 Days Ago History ~05/28/22 dulaglutide 1.5 mg/0.5 mL 1.5 mg subcut MO@0900 04/28/22 05/31/22 3 Days Ago History subcutaneous pen injector ~05/28/22 (Trulicity) vitamin A 10,000 unit capsule 1 cap PO DAILY 04/28/22 05/31/22 3 Days Ago History ~05/28/22 insulin glargine U-300 conc 300 80 unit subcut BEDTIME 04/30/22 05/31/22 3 Days Ago History unit/mL (3 mL) subcutaneous pen ~05/28/22 (Toujeo Max U-300 SoloStar) acetaminophen 325 mg tablet 2 tab PO Q8H PRN pain 05/31/22 05/31/22 3 Days Ago History ~05/28/22 docusate sodium 100 mg capsule 1 cap PO BID PRN constipation 05/31/22 05/31/22 3 Days Ago History ~05/28/22 insulin lispro 100 unit/mL 26 unit subcut TIDAC 05/31/22 05/31/22 3 Days Ago History subcutaneous pen ~05/28/22 ipratropium 0.5 mg-albuterol 3 mg 1 amp inhalation QID PRN dyspnea 05/31/22 05/31/22 3 Days Ago History (2.5 mg base)/3 mL nebulization ~05/28/22 soln lactulose 10 gram/15 mL oral 30 ml PO DAILY PRN Constipation 05/31/22 05/31/22 3 Days Ago History solution ~05/28/22 lisinopril 2.5 mg tablet 1 tab PO DAILY 05/31/22 05/31/22 3 Days Ago History ~05/28/22 loratadine 10 mg tablet 1 tab PO DAILY PRN Allergy Symptoms 05/31/22 05/31/22 3 Days Ago History ~05/28/22 sennosides 8.6 mg tablet (senna) 8.6 mg PO DAILY PRN Constipation 05/31/22 05/31/22 3 Days Ago History ~05/28/22 vitamin E (dl, acetate) 180 mg 1 cap PO BID 05/31/22 05/31/22 3 Days Ago History (400 unit) capsule ~05/28/22 Physical Exam Vital Signs: Last Vital Signs Temp 98.0 F 05/31/22 10:26 Pulse 110 H 05/31/22 10:26 Resp 17 05/31/22 10:26 BP 114/69 05/31/22 10:26 Pulse Ox 90 L 05/31/22 10:26 O2 Del Method 05/31/22 10:26 O2 Flow Rate 2 05/31/22 10:26 BMI result Body Mass Index 56.5 General: cooperative and no acute distress? Orientation/consciousness: patient oriented x3Eyes:??General: appearance normal, both eyes and all related structuresResp:??Effort & Inspection: normal respiratory effort? Auscultation: clear to auscultation bilaterallyCardio:??Rate: regular rate? Rhythm: regular rhythmGI:??Other: Distended abdomen, no rebound or guarding, nontender? Palpation (GI): Soft to palpation? Auscultation: normal bowel soundsSkin:??General skin exam: no rashes or lesions notedNeuro:??General: patient oriented x3? Cognition (Neuro): normal cognitionExtrem:??Other: In no limited range of motion of left shoulder, no tenderness on movement? General: Yes normal to inspection and Yes no pedal edema Results Lab Results 05/31/22 07:06 05/31/22 07:06 Lab results: Chemistry 05/30/22 05/31/22 17:26 07:06 Sodium 128 L 128 L Potassium 4.6 D 4.5 Carbon Dioxide 27 26 BUN 9 12 Creatinine 0.77 0.80 Calcium 8.6 8.2 L Hematology 05/30/22 05/31/22 17:26 07:06 WBC 10.9 H 11.3 H Hgb 11.6 L 10.7 L Plt Count 34 L D 32 L Assessment and Plan (1) Hyponatremia: Status: Acute Plan Due to non osmotic ADH release Restrict Hypotonic fludis Goal pNA > 130 No need for UREA Avoid rapid correction Time Spent With Patient Time: Total time managing care of this patient today ____ minutes. Procedures Date of Service Date of Service: 05/31/22
[2022-05-31 12:24] LABS: Glucose, Whole Blood 147 mg/dL (60-115)
--- NOTE | 2022-05-31 12:43 | PC.NURSE ---
pt sleeping, lights dimmed, RR even and unlabored.
[2022-05-31 13:58] LABS: Anion Gap 13 (12-20); Blood Urea Nitrogen 13 mg/dL (9-16); Carbon Dioxide 25 mmol/L (22-29); Chloride 96 mmol/L (96-108); Creatinine Clr Calc Pharmacy 132.2; Estimated Glomerular Filt Rate > 60; Glucose Random 166 mg/dL (60-115); Potassium 4.7 mmol/L (3.3-5.1); Sodium 129 mmol/L (135-145)
[2022-05-31 14:40] VITALS: BMI 56.7
--- NOTE | 2022-05-31 14:42 | PC.NURSE ---
RN-RN report given, pt a&ox3, vss, ambulates independently, 20G IV R AC, O2 @ 93% w NC at 2L.
[2022-05-31 14:43] VITALS: BP 96/62; PULSE 106; RESP 20; O2SAT 92
[2022-05-31 15:59] VITALS: BP 110/58; PULSE 98; RESP 16; TEMP 36.1; O2SAT 93
[2022-05-31 16:10] LABS: Glucose, Whole Blood 141 mg/dL (60-115)
[2022-05-31 17:00] VITALS: BMI 55.4
[2022-05-31] MEDS: Morphine Sulfate Immed Release 15 MG TABLET PO (17:24)
[2022-05-31] MEDS: 0.9 % Sodium Chloride Flush 3 ML SYRINGE IVFLUSH ×2 (17:25→21:29)
[2022-05-31 20:00] VITALS: BP 104/58; PULSE 105; RESP 18; TEMP 36; O2SAT 92
[2022-05-31 21:17] LABS: Glucose, Whole Blood 170 mg/dL (60-115)
[2022-05-31] MEDS: Vitamin E (Dl,Tocopheryl Acet) 180 MG (400 UNIT) CAPSULE PO (21:28)
[2022-05-31] MEDS: HYDROmorphone HCl 0.5 MG/0.5 ML SYRINGE IVPUSH (21:28)
[2022-05-31] MEDS: Gabapentin 300 MG CAPSULE PO (21:28)
[2022-05-31] MEDS: Insulin Glargine,Hum.rec.anlog 100 UNIT/ML 10 ML VIAL 64 UNIT SUBCUT (21:29)
[2022-05-31] MEDS: Insulin Lispro 100 UNIT/ML 3 ML VIAL SUBCUT (21:30)
[2022-05-31] MEDS: Albuterol/Iprat 2.5/0.5MG 3 ML AMPUL.NEB INHALE (22:14)
[2022-05-31 22:21] VITALS: PULSE 106; RESP 18; O2SAT 96
--- NOTE | 2022-05-31 23:49 | PM.EVENT ---
Event Note Date of Service: 05/31/22 Event Note: patient's blood culture positive for Gram-positive cocci in clusters. Will treat with IV antibiotics vancomycin, discontinue ceftriaxone. Repeat blood cultures, lactic acid Time Spent With Patient Time: Total time managing care of this patient today ____ minutes.
[2022-06-01] VITALS (8 sets, daily range): BP systolic 96–124; BP diastolic 52–75; PULSE 98–110; RESP 18–20; TEMP 36.2–37; O2SAT 92–98
[2022-06-01] MEDS: ondansetron HCL 4 MG/2 ML VIAL IVPUSH ×2 (00:51→08:58)
[2022-06-01 01:15] LABS: Lactic Acid 1.6 mmol/L (0.5-2.0)
[2022-06-01] MEDS: Omeprazole 40 MG CAPSULE.DR PO (05:04)
[2022-06-01] MEDS: Levothyroxine Sodium 50 MCG TABLET PO (05:04)
[2022-06-01 06:43] LABS: INTERNATIONAL NORM RATIO 1.9 (0.9-1.1); Prothrombin Time 22.9 SEC (10.0-13.1)
[2022-06-01 06:51] LABS: Hematocrit 34.1 % (37.0-47.0); Hemoglobin 11.3 g/dl (12.0-16.0); Mean Corpuscular HGB Conc 33.1 g/dl (31.0-35.0); Mean Corpuscular Hemoglobin 32.1 pg (27.0-33.0); Mean Corpuscular Volume 96.9 fL (80.0-98.0); Mean Platelet Volume 12.3 fL (9.4-12.3); Red Blood Count 3.52 X10*6/uL (4.20-5.50); Red Cell Distribution Width 16.8 % (11.0-16.0); White Blood Count 14.5 X10*3/uL (4.8-10.8)
[2022-06-01 06:52] LABS: Platelet Count 48 X10*3/uL (160-400)
[2022-06-01 07:20] LABS: Anion Gap 15 (12-20); Blood Urea Nitrogen 16 mg/dL (9-16); Calcium 8.3 mg/dL (8.4-10.2); Carbon Dioxide 27 mmol/L (22-29); Chloride 92 mmol/L (96-108); Creatinine Clr Calc Pharmacy 112.5; Estimated Glomerular Filt Rate > 60; Glucose Random 122 mg/dL (60-115); Potassium 4.5 mmol/L (3.3-5.1); Sodium 129 mmol/L (135-145)
--- NOTE | 2022-06-01 07:35 | PHA.PROG ---
Admission Date/Time: May 30, 2022 23:21 Indication: bacteremia Weight in k.9 kg Adjusted body weight in Kg: [place] body weight in Kg: Obesity Dosing Indication % IBW: Serum Creatinine - Last 168 Hours 05/30/22 05/31/22 05/31/22 17:26 07:06 13:36 Creatinine 0.77 0.80 0.75 06/01/22 05:54 Creatinine 0.87 Estimated CrCl and GFR - Last 168 Hours 05/30/22 05/31/22 05/31/22 17:26 07:06 13:36 Estim Creat Clear Calc 128.8 123.9 132.2 Estimated GFR > 60 > 60 > 60 06/01/22 05:54 Estim Creat Clear Calc 112.5 Estimated GFR > 60 Vancomycin Loading Dose: 2000mg x 1 Current Vancomycin Dosing Regimen: 1000mg Q12H Vancomycin Monitoring using AUC goal of 400 - 600 range with trough as surrogate marker: 478mg/L Date and Time for next Vancomycin Level to be drawn: 06/02/22 @1000 Pharmacist Comments on Vancomycin Plan: Obesity model being used, will continue to monitor renal function. predicted trough of 13.5mg/L Vancomycin dosing will take advantage of [employer] as a clinical decision support tool that uses Bayesian modeling to calculate individual patient's pharmacokinetic parameters and forecast the patient's drug concentration time course with the target goal AUC 24 range of 400 - 600 mg/L/hr.
[2022-06-01 07:45] LABS: Glucose, Whole Blood 120 mg/dL (60-115)
[2022-06-01] MEDS: Furosemide 40 MG/4 ML VIAL IVPUSH ×2 (08:59→10:32)
[2022-06-01] MEDS: Vitamin E (Dl,Tocopheryl Acet) 180 MG (400 UNIT) CAPSULE PO ×2 (08:59→21:17)
[2022-06-01] MEDS: lisinopriL 2.5 MG TABLET PO (08:59)
[2022-06-01] MEDS: Spironolactone 25 MG TABLET 75 MG PO ×2 (08:59→17:32)
[2022-06-01] MEDS: Zinc Sulfate 220 MG CAPSULE PO (08:59)
[2022-06-01] MEDS: 0.9 % Sodium Chloride Flush 3 ML SYRINGE IVFLUSH ×3 (08:59→21:17)
--- NOTE | 2022-06-01 09:24 | P.PNIM_ITS ---
Subjective Subjective Date of Service: 06/01/22 Interval History: Seen and evaluated this morning S a reporting swelling and did not make much of urine overnight Still on oxygen supplement, reporting cough Shoulder pain No reported other overnight events Review of Systems Review of Systems: Yes all other systems are reviewed and are negative Physical Exam Vital Signs: Vital Signs: Last Vital Signs Temp 97.4 F 06/01/22 07:38 Pulse 101 H 06/01/22 07:38 Resp 20 06/01/22 07:38 BP 96/52 L 06/01/22 07:38 Pulse Ox 92 06/01/22 07:38 O2 Del Method 06/01/22 07:38 O2 Flow Rate 2 06/01/22 07:38 BMI result Body Mass Index 55.4 Const: Other: Constitutional : Awake, interactive, not in distress Neck : Normal inspection, Supple Cardiovascular : RRR, no JVP, +2 bilateral lower extremity edema Respiratory : Failure bilateral air entry but decreased at the bases, no wheezes Gastrointestinal: soft, lax, Normal bowel sounds, Non tender, significantly distended with moderate amount of ascites Skin : Warm, Dry Neurological : Alert & oriented x3, No focal deficit Objective Data Active Medications Acetaminophen (Acetaminophen 325 Mg Tablet) 650 mg PO Q6H PRN PRN Reason: Pain, Mild (Pain Scale 1-3) Albuterol Sulfate (Albuterol Sulfate 90 Mcg 8 Gm Inhaler) 2 puff INHALE Q6H PRN PRN Reason: Wheezing Albuterol/Ipratropium (Albuterol/Iprat 2.5/0.5mg 3 Ml Ampul.Neb) 3 ml INHALE QID PRN PRN Reason: dyspnea Last Admin: 05/31/22 22:14 Dose: 3 ml Documented By: KEV Docusate Sodium (Docusate Sodium 100 Mg Capsule) 100 mg PO DAILY PRN PRN Reason: Constipation Docusate Sodium (Docusate Sodium 100 Mg Capsule) 100 mg PO BID PRN PRN Reason: constipation Furosemide (Furosemide 40 Mg/4 Ml Vial) 40 mg IVPUSH BID@0900,1800 [facility]; Protocol Last Admin: 06/01/22 08:59 Dose: 40 mg Documented By: WILLIAM Gabapentin (Gabapentin 300 Mg Capsule) 300 mg PO BEDTIME [facility] Last Admin: 05/31/22 21:28 Dose: 300 mg Documented By: CHRISTIANA Vancomycin HCl 1,000 mg/ (Sodium Chloride) 270 mls @ 270 mls/hr IV Q12H [facility] Insulin Glargine (Insulin Glargine,Hum.Rec.Anlog 100 Unit/Ml 10 Ml Vial) 64 unit SUBCUT BEDTIME [facility] Last Admin: 05/31/22 21:29 Dose: 64 unit Documented By: CHRISTIANA Insulin Human Lispro (Insulin Lispro 100 Unit/Ml 3 Ml Vial) 0 unit SUBCUT QIDACHS [facility]; Protocol Last Admin: 06/01/22 09:00 Dose: Not Given Documented By: WILLIAM Non-Admin Reason: No Insulin Coverage Lactulose (Lactulose 20 Gm/30 Ml Solution) 20 gm PO DAILY [facility] Last Admin: 05/31/22 09:56 Dose: 20 gm Lactulose (Lactulose 20 Gm/30 Ml Solution) 20 gm PO DAILY PRN PRN Reason: Constipation Levothyroxine Sodium (Levothyroxine Sodium 50 Mcg Tablet) 50 mcg PO DAILY@0600 [facility] Last Admin: 06/01/22 05:04 Dose: 50 mcg Documented By: CHRISTIANA Lisinopril (Lisinopril 2.5 Mg Tablet) 2.5 mg PO DAILY [facility]; Protocol Last Admin: 06/01/22 08:59 Dose: 2.5 mg Documented By: WILLIAM Loratadine (Loratadine 10 Mg Tablet) 10 mg PO DAILY PRN PRN Reason: Allergic Symptoms Pt Own (Flovent (220mcg 2 Inhalation)) 2 inhalation PO RBID [facility] Last Admin: 05/31/22 19:47 Dose: Not Given Documented By: KEV Non-Admin Reason: Patient Refused Omeprazole (Omeprazole 40 Mg Capsule.) 40 mg PO DAILY@0630 [facility] Last Admin: 06/01/22 05:04 Dose: 40 mg Documented By: CHRISTIANA Ondansetron HCl (Ondansetron Hcl 4 Mg/2 Ml Vial) 4 mg IVPUSH Q8H PRN PRN Reason: Nausea and Vomiting Last Admin: 06/01/22 08:58 Dose: 4 mg Documented By: WILLIAM Pharmacy Consult (Consult Rx Vancomycin Dosing) 1 each MISCELLANE DAILY PRN PRN Reason: Consult order Senna (Sennosides 8.6 Mg Tablet) 8.6 mg PO DAILY PRN PRN Reason: Constipation Sodium Chloride (0.9 % Sodium Chloride Flush 3 Ml Syringe) 3 ml IVFLUSH QSHIFT [facility] Last Admin: 06/01/22 08:59 Dose: 3 ml Documented By: WILLIAM Spironolactone (Spironolactone 25 Mg Tablet) 75 mg PO BID@0900,1800 [facility]; Protocol Last Admin: 06/01/22 08:59 Dose: 75 mg Documented By: WILLIAM Vitamin E (Vitamin E (Dl,Tocopheryl Acet) 180 Mg (400 Unit) Capsule) 180 mg PO BID [facility] Last Admin: 06/01/22 08:59 Dose: 180 mg Documented By: WILLIAM Zinc Sulfate (Zinc Sulfate 220 Mg Capsule) 220 mg PO DAILY [facility] Last Admin: 06/01/22 08:59 Dose: 220 mg Documented By: WILLIAM Labs 06/01/22 05:54 06/01/22 05:54 Labs: Laboratory Results - last 24 hr 05/31/22 05/31/22 05/31/22 09:28 12:19 13:36 MCV MCH MCHC RDW Plt Count MPV Absolute Nucleated RBC Nucleated RBC % (auto) PT INR Anion Gap 13 Estim Creat Clear Calc 132.2 Estimated GFR > 60 POC Glucose 147 H Random Glucose 166 H Lactic Acid Lactic Acid F/U @ 2Hr 2.8 H* Calcium 8.0 L 05/31/22 05/31/22 06/01/22 16:06 21:13 00:24 MCV MCH MCHC RDW Plt Count MPV Absolute Nucleated RBC Nucleated RBC % (auto) PT INR Anion Gap Estim Creat Clear Calc Estimated GFR POC Glucose 141 H 170 H Random Glucose Lactic Acid 1.6 Lactic Acid F/U @ 2Hr Calcium 06/01/22 06/01/22 06/01/22 05:54 05:54 05:54 MCV 96.9 MCH 32.1 MCHC 33.1 RDW 16.8 H Plt Count 48 L D MPV 12.3 Absolute Nucleated RBC 0.000 Nucleated RBC % (auto) 0.0 PT 22.9 H INR 1.9 H Anion Gap 15 Estim Creat Clear Calc 112.5 Estimated GFR > 60 POC Glucose Random Glucose 122 H Lactic Acid Lactic Acid F/U @ 2Hr Calcium 8.3 L 06/01/22 07:37 MCV MCH MCHC RDW Plt Count MPV Absolute Nucleated RBC Nucleated RBC % (auto) PT INR Anion Gap Estim Creat Clear Calc Estimated GFR POC Glucose 120 H Random Glucose Lactic Acid Lactic Acid F/U @ 2Hr Calcium Microbiology Microbiology Results: Microbiology 05/31/22 07:06 Blood Culture - Preliminary Blood - Venous Prelim: GPC Gram Stain only 05/31/22 07:06 Blood Culture - Preliminary Blood - Venous Prelim: GPC Gram Stain only Assessment and Plan (1) Thrombocytopenia: Status: Acute (2) Coagulopathy: Status: Acute (3) Pneumonia: Status: Acute (4) Ascites: Status: Acute (5) Acute hyponatremia: Status: Acute Plan 46-year-old female with past medical history of liver cirrhosis secondary to SERV[place] in the hospital with complaints of left-sided shoulder pain radiating to the long per patient. She was found to have the following # Gram-positive bacteremia likely 2/2 community-acquired pneumonia Growing GPC in blood cultures Repeat blood cultures Continue IV antibiotics Wean oxygen down as tolerated # ascites secondary to liver cirrhosis IR recommended platelets above 50 and INR below 2 before doing paracentesis Increase IV Lasix, continue spironolactone Monitor intake and output Restricted fluid intake Paracentesis tomorrow # acute on chronic hyponatremia Likely from hypervolemic hyponatremia consult Nephrology Follow BMP # Coagulopathy/thrombocytopenia INR 1.9 2/2 liver cirrhosis Platelets 49 no acute bleed follow cbc # type 2 diabetes SSI, Lantus Diabetic diet # hypothyroidism levothyroxine # HTN continue antihypertensive DVT ppx: SCDs The patient will need overnight hospital stay to continue treatment for bacteremia, pneumonia, ascites pending possible interventional radiology intervention. Time Spent With Patient Time: Total time managing care of this patient today ____ minutes. Quality Stroke Does the patient have a stroke diagnosis?: No VTE Prior VTE?: No VTE Risk Level:: Medical - moderate - high VTE Device Contraindication: N/A - Device Ordered VTE Drug Contraindication: Treatment Not Indicated
[2022-06-01] MEDS: Albuterol/Iprat 2.5/0.5MG 3 ML AMPUL.NEB INHALE (10:18)
--- NOTE | 2022-06-01 11:47 | MHC.CM.PN ---
EMR REVIEWED, PT ADMITTES W/HYPONATREMIA, THROMBOCTYOPENIA AND ASCITES. 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 PT VERIFIES PCP JOSI JONES, COVID VACC X3 AND PT HAS BEEN EDUCATED ON AND COMPLETED A HCP NAMING HER GENO CUTLER [phone] HER HC AND HER MOTHER LUMA KULKARNI [phone] HER ALTERNATE. COPY UPLOADED TO [facility] AND PLACED IN CHART W/PT PERMISSION. PT BLOOD CULTURES POSITIVE AND PT MAY NEED NURSING HOME IV ABX, IF NOT ANTIC D/C HOME NO SERVICES W/ C SHUTTLE FOR TRANSPORT
[2022-06-01 11:57] LABS: Glucose, Whole Blood 95 mg/dL (60-115)
[2022-06-01] MEDS: vancomycin HCL 1,000 MG in 0.9 % Sodium Chloride 250 ML 270 MG IV ×2 (13:01→23:48)
[2022-06-01] MEDS: Calcium Carbonate 750 MG TAB.CHEW PO (17:32)
[2022-06-01] MEDS: Furosemide 40 MG/4 ML VIAL 80 MG IVPUSH (17:33)
[2022-06-01 21:11] LABS: Glucose, Whole Blood 181 mg/dL (60-115)
[2022-06-01] MEDS: Gabapentin 300 MG CAPSULE PO (21:17)
[2022-06-01] MEDS: Insulin Glargine,Hum.rec.anlog 100 UNIT/ML 10 ML VIAL 64 UNIT SUBCUT (21:18)
[2022-06-01] MEDS: Insulin Lispro 100 UNIT/ML 3 ML VIAL SUBCUT (21:19)
[2022-06-01] MEDS: Lidocaine 4 % Patch ADH..PATCH 1 PATCH TRANSDERMA (23:54)
[2022-06-02 00:10] LABS: Glucose, Whole Blood 119 mg/dL (60-115)
[2022-06-02 03:24] VITALS: BP 94/52; PULSE 111; RESP 18; TEMP 36.8; O2SAT 93
[2022-06-02] MEDS: Levothyroxine Sodium 50 MCG TABLET PO (05:28)
[2022-06-02] MEDS: Omeprazole 40 MG CAPSULE.DR PO (05:28)
[2022-06-02 05:43] LABS: Hematocrit 29.3 % (37.0-47.0); Hemoglobin 9.8 g/dl (12.0-16.0); Mean Corpuscular HGB Conc 33.4 g/dl (31.0-35.0); Mean Corpuscular Hemoglobin 31.6 pg (27.0-33.0); Mean Corpuscular Volume 94.5 fL (80.0-98.0); Mean Platelet Volume 12.8 fL (9.4-12.3); Platelet Count 37 X10*3/uL (160-400); Red Cell Distribution Width 16.9 % (11.0-16.0); White Blood Count 9.4 X10*3/uL (4.8-10.8)
[2022-06-02 06:03] LABS: Anion Gap 13 (12-20); Blood Urea Nitrogen 17 mg/dL (9-16); Calcium 7.8 mg/dL (8.4-10.2); Carbon Dioxide 27 mmol/L (22-29); Chloride 93 mmol/L (96-108); Creatinine Clr Calc Pharmacy 115.1; Estimated Glomerular Filt Rate > 60; Glucose Random 97 mg/dL (60-115); Potassium 4.4 mmol/L (3.3-5.1); Sodium 129 mmol/L (135-145)
[2022-06-02 07:26] VITALS: BP 97/53; PULSE 113; RESP 18; TEMP 36.4; O2SAT 96
[2022-06-02] MEDS: Vitamin E (Dl,Tocopheryl Acet) 180 MG (400 UNIT) CAPSULE PO ×2 (07:51→20:26)
[2022-06-02] MEDS: Spironolactone 25 MG TABLET 75 MG PO ×2 (07:51→17:09)
[2022-06-02] MEDS: Zinc Sulfate 220 MG CAPSULE PO (07:51)
[2022-06-02] MEDS: Furosemide 40 MG/4 ML VIAL 80 MG IVPUSH ×2 (07:52→17:09)
[2022-06-02] MEDS: 0.9 % Sodium Chloride Flush 3 ML SYRINGE IVFLUSH ×3 (07:53→20:27)
[2022-06-02 07:58] LABS: Glucose, Whole Blood 87 mg/dL (60-115)
--- NOTE | 2022-06-02 09:50 | P.CDIC_ITS ---
CDI Concurrent Query Documentation Clarification: PHYSICIAN'S DOCUMENTATION REQUEST Date of Query: 06/02/22 0950 Patient Name: Ema Aguilar Admit Date: 05/30/22 Dear Doctor, A review of the medical record indicates additional documentation may be needed. Please review below and update the documentation accordingly. Clinical Indicators: Risk Factors/Clinical Indicators/Treatments BMI: 56.7 5' 3 in height 141.9kg. Nursing notes - Extreme obesity Class III If possible, please provide an associated diagnosis related to the abnormal BMI, such as: For a BMI >= 40: * Overweight * Obesity * Due to excess calories * Drug induced * Due to other cause * Severe or Morbid Obesity * With alveolar hypoventilation * Without alveolar hypoventilation * Other * Unable to determine Use of terms such as suspected, likely, concern for, or probable (associated with a specific diagnosis that is being evaluated, monitored, or treated as if it exists) are acceptable and can be coded in the inpatient setting, when documented at the time of discharge. Thank you, Lanny Byrne [facility], CDIS Extension: [phone] Please use your independent medical judgment in providing your response. THIS QUERY IS PART OF THE PERMANENT MEDICAL RECORD Provider Response: Morbid Obesity Other Diagnosis: Morbid obesity
--- NOTE | 2022-06-02 09:54 | P.PNIM_ITS ---
Subjective Subjective Date of Service: 06/02/22 Interval History: Seen and evaluated this morning Reports making more urine overnight, I\O seems inaccurate Still on oxygen supplement, reporting cough Shoulder pain No reported other overnight events Review of Systems Review of Systems: Yes all other systems are reviewed and are negative Physical Exam Vital Signs: Vital Signs: Last Vital Signs Temp 97.5 F 06/02/22 07:26 Pulse 113 H 06/02/22 07:26 Resp 18 06/02/22 07:26 BP 97/53 L 06/02/22 07:26 Pulse Ox 96 06/02/22 07:26 O2 Del Method 06/02/22 07:26 O2 Flow Rate 2 06/02/22 07:26 BMI result Body Mass Index 55.4 Const: Other: Constitutional : Awake, interactive, not in distress Neck : Normal inspection, Supple Cardiovascular : RRR, no JVP, +2 bilateral lower extremity edema Respiratory : Failure bilateral air entry but decreased at the bases, no wheezes Gastrointestinal: soft, lax, Normal bowel sounds, Non tender, significantly distended with moderate amount of ascites Skin : Warm, Dry Neurological : Alert & oriented x3, No focal deficit Objective Data Active Medications Acetaminophen (Acetaminophen 325 Mg Tablet) 650 mg PO Q6H PRN PRN Reason: Pain, Mild (Pain Scale 1-3) Albuterol Sulfate (Albuterol Sulfate 90 Mcg 8 Gm Inhaler) 2 puff INHALE Q6H PRN PRN Reason: Wheezing Albuterol/Ipratropium (Albuterol/Iprat 2.5/0.5mg 3 Ml Ampul.Neb) 3 ml INHALE QID PRN PRN Reason: dyspnea Last Admin: 06/01/22 10:18 Dose: 3 ml Documented By: JA Calcium Carbonate (Calcium Carbonate 750 Mg Tab.Chew) 750 mg PO Q4H PRN PRN Reason: Heartburn Last Admin: 06/01/22 17:32 Dose: 750 mg Documented By: WILLIAM Docusate Sodium (Docusate Sodium 100 Mg Capsule) 100 mg PO DAILY PRN PRN Reason: Constipation Docusate Sodium (Docusate Sodium 100 Mg Capsule) 100 mg PO BID PRN PRN Reason: constipation Furosemide (Furosemide 40 Mg/4 Ml Vial) 80 mg IVPUSH BID@0900,1800 [facility]; Protocol Last Admin: 06/02/22 07:52 Dose: 80 mg Documented By: WILLIAM Gabapentin (Gabapentin 300 Mg Capsule) 300 mg PO BEDTIME [facility] Last Admin: 06/01/22 21:17 Dose: 300 mg Documented By: CHRISTIANA Vancomycin HCl 1,000 mg/ (Sodium Chloride) 270 mls @ 270 mls/hr IV Q12H [facility] Last Infusion: 06/02/22 01:43 Dose: 0 mls/hr Documented By: CHRISTIANA Insulin Glargine (Insulin Glargine,Hum.Rec.Anlog 100 Unit/Ml 10 Ml Vial) 64 unit SUBCUT BEDTIME [facility] Last Admin: 06/01/22 21:18 Dose: 64 unit Documented By: CHRISTIANA Insulin Human Lispro (Insulin Lispro 100 Unit/Ml 3 Ml Vial) 0 unit SUBCUT QIDACHS [facility]; Protocol Last Admin: 06/02/22 07:54 Dose: Not Given Documented By: WILLIAM Non-Admin Reason: No Insulin Coverage Lactulose (Lactulose 20 Gm/30 Ml Solution) 20 gm PO DAILY [facility] Last Admin: 06/02/22 08:03 Dose: Not Given Documented By: WILLIAM Non-Admin Reason: Patient Refused Lactulose (Lactulose 20 Gm/30 Ml Solution) 20 gm PO DAILY PRN PRN Reason: Constipation Levothyroxine Sodium (Levothyroxine Sodium 50 Mcg Tablet) 50 mcg PO DAILY@0600 [facility] Last Admin: 06/02/22 05:28 Dose: 50 mcg Documented By: CHRISTIANA Lidocaine (Lidocaine 4 % Patch Adh..Patch) 1 patch TRANSDERMA DAILY [facility]; Protocol Last Admin: 06/02/22 07:52 Dose: 1 patch Documented By: WILLIAM Lisinopril (Lisinopril 2.5 Mg Tablet) 2.5 mg PO DAILY [facility]; Protocol Last Admin: 06/01/22 08:59 Dose: 2.5 mg Documented By: WILLIAM Loratadine (Loratadine 10 Mg Tablet) 10 mg PO DAILY PRN PRN Reason: Allergic Symptoms Pt Own (Flovent (220mcg 2 Inhalation)) 2 inhalation PO RBID [facility] Last Admin: 06/02/22 01:43 Dose: Not Given Documented By: CHRISTIANA Non-Admin Reason: See Note Omeprazole (Omeprazole 40 Mg Capsule.) 40 mg PO DAILY@0630 [facility] Last Admin: 06/02/22 05:28 Dose: 40 mg Documented By: CHRISTIANA Ondansetron HCl (Ondansetron Hcl 4 Mg/2 Ml Vial) 4 mg IVPUSH Q8H PRN PRN Reason: Nausea and Vomiting Last Admin: 06/01/22 08:58 Dose: 4 mg Documented By: WILLIAM Pharmacy Consult (Consult Rx Vancomycin Dosing) 1 each MISCELLANE DAILY PRN PRN Reason: Consult order Senna (Sennosides 8.6 Mg Tablet) 8.6 mg PO DAILY PRN PRN Reason: Constipation Sodium Chloride (0.9 % Sodium Chloride Flush 3 Ml Syringe) 3 ml IVFLUSH QSHIFT [facility] Last Admin: 06/02/22 07:53 Dose: 3 ml Documented By: WILLIAM Spironolactone (Spironolactone 25 Mg Tablet) 75 mg PO BID@0900,1800 [facility]; Protocol Last Admin: 06/02/22 07:51 Dose: 75 mg Documented By: WILLIAM Vitamin E (Vitamin E (Dl,Tocopheryl Acet) 180 Mg (400 Unit) Capsule) 180 mg PO BID [facility] Last Admin: 06/02/22 07:51 Dose: 180 mg Documented By: WILLIAM Zinc Sulfate (Zinc Sulfate 220 Mg Capsule) 220 mg PO DAILY [facility] Last Admin: 06/02/22 07:51 Dose: 220 mg Documented By: WILLIAM Labs 06/02/22 05:07 06/02/22 05:07 Labs: Laboratory Results - last 24 hr 06/01/22 06/01/22 06/01/22 11:40 16:27 21:08 MCV MCH MCHC RDW Plt Count MPV Absolute Nucleated RBC Nucleated RBC % (auto) Anion Gap Estim Creat Clear Calc Estimated GFR POC Glucose 95 119 H 181 H Random Glucose Calcium 06/02/22 06/02/22 06/02/22 05:07 05:07 05:07 MCV 94.5 MCH 31.6 MCHC 33.4 RDW 16.9 H Plt Count 37 L MPV 12.8 H Absolute Nucleated RBC 0.000 Nucleated RBC % (auto) 0.0 Anion Gap 13 Estim Creat Clear Calc Cancelled 115.1 Estimated GFR Cancelled > 60 POC Glucose Random Glucose 97 Calcium 7.8 L D 06/02/22 07:24 MCV MCH MCHC RDW Plt Count MPV Absolute Nucleated RBC Nucleated RBC % (auto) Anion Gap Estim Creat Clear Calc Estimated GFR POC Glucose 87 Random Glucose Calcium Microbiology Microbiology Results: Microbiology 06/01/22 00:24 Blood Culture - Preliminary Blood - Venous No growth after 24 hours. 06/01/22 00:24 Blood Culture - Preliminary Blood - Venous No growth after 24 hours. 05/31/22 07:06 Blood Culture - Preliminary Blood - Venous Prelim: GPC Gram Stain only 05/31/22 07:06 Blood Culture - Preliminary Blood - Venous Prelim: GPC Gram Stain only Assessment and Plan (1) Coagulopathy: Status: Acute (2) Thrombocytopenia: Status: Acute (3) Pneumonia: Status: Acute (4) Ascites: Status: Acute (5) Positive blood culture: Status: Acute Plan 46-year-old female with past medical history of liver cirrhosis secondary to [place] in the hospital with complaints of left-sided shoulder pain radiating to the long per patient. She was found to have the following # Gram-positive bacteremia likely 2/2 community-acquired pneumonia Growing GPC in blood cultures Repeat blood cultures Continue IV Vancomycin Wean oxygen down as tolerated # ascites secondary to liver cirrhosis IR recommended platelets above 50 and INR below 2 before doing paracentesis Increase IV Lasix, continue spironolactone Monitor intake and output Restricted fluid intake Paracentesis today, pending labs # acute on chronic hyponatremia Likely from hypervolemic hyponatremia stable at 129 Nephrology to follow Follow BMP # Coagulopathy/thrombocytopenia INR 1.9 2/2 liver cirrhosis Platelets 37 no acute bleed follow cbc # type 2 diabetes SSI, Lantus Diabetic diet # hypothyroidism levothyroxine # HTN continue antihypertensive DVT ppx: SCDs The patient will need overnight hospital stay to continue treatment for bacteremia, pneumonia, ascites pending possible interventional radiology intervention. Time Spent With Patient Time: Total time managing care of this patient today ____ minutes. Quality Stroke Does the patient have a stroke diagnosis?: No VTE Prior VTE?: No VTE Risk Level:: Medical - moderate - high VTE Device Contraindication: N/A - Device Ordered VTE Drug Contraindication: Treatment Not Indicated
--- NOTE | 2022-06-02 10:35 | HO.RADPN ---
RADIOLOGY Narrative Narrative: LLQ paracentesis performed using 5 fr catheter. 7.6 L clear yellow fluid removed. Specimen sent.
[2022-06-02 10:36] LABS: Lactate Dehydrogenase 238 U/L (122-220)
[2022-06-02] MEDS: Lidocaine HCl 1 % MPF 5 ML VIAL SUBCUT (10:52)
[2022-06-02 11:07] VITALS: PULSE 100; RESP 18; O2SAT 95
[2022-06-02] MEDS: Albuterol Sulfate 90 MCG 8 GM INHALER 2 PUFF INHALE (11:09)
--- NOTE | 2022-06-02 11:12 | PM.PNNEP ---
Subjective Subjective Date of Service: 06/02/22 Interval history: seen and examined events reviewed discussed with medical attending Physical Exam Vital Signs: Vital Signs: Last Vital Signs Temp 97.5 F 06/02/22 07:26 Pulse 100 06/02/22 11:07 Resp 18 06/02/22 11:07 BP 97/53 L 06/02/22 07:26 Pulse Ox 96 06/02/22 07:26 O2 Del Method 06/02/22 07:26 O2 Flow Rate 2 06/02/22 07:26 BMI result Body Mass Index 55.4 Const: General: no acute distress HEENT: Head: Yes normocephalic and Yes atraumatic Neck: Neck: Yes supple Resp: Auscultation: diminished lung sounds Cardio: Heart sounds: S1 normal heart sound present and S2 normal heart sound present GI: Palpation (GI): Soft to palpation and nontender Extrem: General: Yes pedal edema Objective Data Labs 06/02/22 05:07 06/02/22 05:07 Labs: Laboratory Results - last 24 hr 06/01/22 06/01/22 06/01/22 11:40 16:27 21:08 WBC RBC Hgb Hct MCV MCH MCHC RDW Plt Count MPV Absolute Nucleated RBC Nucleated RBC % (auto) Sodium Potassium Chloride Carbon Dioxide Anion Gap BUN Creatinine Estim Creat Clear Calc Estimated GFR POC Glucose 95 119 H 181 H Random Glucose Calcium Lactate Dehydrogenase 06/02/22 06/02/22 06/02/22 05:07 05:07 05:07 WBC 9.4 RBC 3.10 L Hgb 9.8 L Hct 29.3 L MCV 94.5 MCH 31.6 MCHC 33.4 RDW 16.9 H Plt Count 37 L MPV 12.8 H Absolute Nucleated RBC 0.000 Nucleated RBC % (auto) 0.0 Sodium 129 L Potassium 4.4 Chloride 93 L Carbon Dioxide 27 Anion Gap 13 BUN 17 H Creatinine Cancelled 0.85 Estim Creat Clear Calc Cancelled 115.1 Estimated GFR Cancelled > 60 POC Glucose Random Glucose 97 Calcium 7.8 L D Lactate Dehydrogenase 238 H 06/02/22 07:24 WBC RBC Hgb Hct MCV MCH MCHC RDW Plt Count MPV Absolute Nucleated RBC Nucleated RBC % (auto) Sodium Potassium Chloride Carbon Dioxide Anion Gap BUN Creatinine Estim Creat Clear Calc Estimated GFR POC Glucose 87 Random Glucose Calcium Lactate Dehydrogenase Microbiology Microbiology Results: Microbiology 05/31/22 07:06 Blood - Venous Blood Culture - Preliminary Staphylococcus species 05/31/22 07:06 Blood - Venous Blood Culture - Preliminary Staphylococcus species 06/01/22 00:24 Blood - Venous Blood Culture - Preliminary No growth after 24 hours. 06/01/22 00:24 Blood - Venous Blood Culture - Preliminary No growth after 24 hours. Procedures Date of Service Date of Service: 06/02/22 Assessment & Plan Assessment and plan (1) Hyponatremia: Status: Acute (2) 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: Status: Acute Plan Sna stable hypervolemic hyponatremia in the setting of liver cirrhosis c/w with hepatic physiology REC continue combination loop diuretics and potassium sparing agent fluid restriction follow kidney function and electrolytes Time Spent With Patient Time: Total time managing care of this patient today ____ minutes. Progress Note: Quality Stroke Does the patient have a stroke diagnosis?: No
[2022-06-02 11:15] LABS: MN% 61.5 %; PMN% 38.5 %; WBC Peritoneal Fluid 0.203 X10*3/uL
[2022-06-02 11:16] LABS: RBC Peritoneal Fluid < 0.002 X10*6/uL
[2022-06-02 11:50] VITALS: BP 102/53; PULSE 110; RESP 18; TEMP 36.6; O2SAT 93
[2022-06-02 12:04] LABS: Glucose, Whole Blood 144 mg/dL (60-115)
[2022-06-02 12:07] LABS: Vancomycin Trough 15.4 mcg/mL (10.0-20.0)
--- NOTE | 2022-06-02 12:14 | HE.PHANOTE ---
Vancomycin Dosing Level 15.4 today. Continue current regimen vanco 1000 mg Q12H. Patient is obese therefore need careful monito due to large volume of distribution therefore next level in 24 hours on 06/03 @ 1000. Vikki MarinD
[2022-06-02] MEDS: vancomycin HCL 1,000 MG in 0.9 % Sodium Chloride 250 ML 270 MG IV (12:30)
[2022-06-02] MEDS: Albumin Human 25 % 100 ML IV ×2 (13:29→17:09)
[2022-06-02 13:44] LABS: BF Shift QC OK YES
[2022-06-02 13:45] LABS: Lymphocyte Peritoneal Fl 18 %; Man Diluent Bkgrd OK YES; Monocytes Peritoneal Fl 19 %; Neutrophils Peritoneal Fluid 45 %; Other Peritioneal Fl 18 %
--- NOTE | 2022-06-02 14:05 | P.CNGI_ITS ---
History of Present Illness Data of Consult Service Date: 06/02/22 Requesting physician: Jessica Ferguson Primary Care Provider: Radha Anne MD HPI Reason for consult: liver disease 46-year-old female with past medical history of asthma, diabetes, dyslipidemia, HTN, goiter, AMY, decompensated cirrhosis secondary to SERVIN and with ascites, who I am seeing for assessment for liver disease. She initially presented with abdominal distention and left sharp shoulder pain 10/10 in severity going into her neck and left chest area worse with breathing.She did also admit to sob and non productiv cough. Denies any fever or chills.? Reports no bleeding, no melena or hematemesis. No chest tightness, or nausea or vomiting. CXR done which revealed d possible infiltratres and mild arthritic changes in left shoulder. US revealed ascites whcih was tapped with 7 liters removed and neg cell count for SBP. Blood cultures with GPC x 3 Labs with hemoglobin of 11.6, hematocrit 34.6 which is around her baseline currently she is antibiotics incl vancomycin Review of Systems Review of Systems: Constitutional : No Weight loss, No Fever, No Chills ENT/Mouth : No sore throat, No Rhinorrhea Eyes: No Swelling, No Redness Cardiovascular : No Chest Pain, No SOB, No Edema Respiratory : No Cough, No Sputum, No Wheezing Gastrointestinal : see HPI Genitourinary : NO Dysuria, No Urinary Frequency, No Hematuria, No Urgency Musculoskeletal : + joint pain, No Myalgias, No Joint Swelling Skin : No Skin Lesions, No rash Neuro : No Weakness, No Numbness, No Dizziness, No Headache Psych : No Anxiety/Panic, No Depression Heme/Lymph: No Bruising, No Lymphadenopathy Endocrine : No Polyuria, No Polydipsia All other systems reviewed and are negative. [facility] Past Medical History Medical History Acromegaly Asthma Diabetes type 2, uncontrolled Diabetic nephropathy associated with type 2 diabetes mellitus Dyslipidemia Elevated TSH Goiter HTN (hypertension) 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 alf (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 insulin Morbid obesity Non-toxic multinodular goiter AMY (obstructive sleep apnea) PCOS (polycystic ovarian syndrome) Status post abdominal paracentesis Family History Family History Father Unknown family medical history Mother Hx of type 1 diabetes mellitus Surgical History Surgical History Hx of colonoscopy Hx of endoscopy Social History Social History Household Members: Spouse Housing: House Do you presently have visiting nurse or other home services: No Alcohol intake: never Patient Tobacco Use Status: Former Tobacco user Quit Date: 7 yrs ago Substance Use Type: Marijuana service: No Current occupational status: disabled 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 Meds Allergies Allergy/AdvReac Type Severity Reaction Status Date / Time ibuprofen [From MOTRIN] Allergy Intermediate RASH Verified 04/30/22 11:52 penicillin V Allergy Mild hives Verified 04/30/22 11:52 codeine Allergy Unknown Verified 04/28/22 12:04 Rx- listed on H&P Active Medications: Current Medications Acetaminophen (Acetaminophen 325 Mg Tablet) 650 mg PO Q6H PRN PRN Reason: Pain, Mild (Pain Scale 1-3) Albuterol Sulfate (Albuterol Sulfate 90 Mcg 8 Gm Inhaler) 2 puff INHALE Q6H PRN PRN Reason: Wheezing Last Admin: 06/02/22 11:09 Dose: 2 puff Albuterol/Ipratropium (Albuterol/Iprat 2.5/0.5mg 3 Ml Ampul.Neb) 3 ml INHALE QID PRN PRN Reason: dyspnea Last Admin: 06/01/22 10:18 Dose: 3 ml Calcium Carbonate (Calcium Carbonate 750 Mg Tab.Chew) 750 mg PO Q4H PRN PRN Reason: Heartburn Last Admin: 06/01/22 17:32 Dose: 750 mg Docusate Sodium (Docusate Sodium 100 Mg Capsule) 100 mg PO DAILY PRN PRN Reason: Constipation Docusate Sodium (Docusate Sodium 100 Mg Capsule) 100 mg PO BID PRN PRN Reason: constipation Furosemide (Furosemide 40 Mg/4 Ml Vial) 80 mg IVPUSH BID@0900,1800 NIMO; Kirsten col Last Admin: 06/02/22 07:52 Dose: 80 mg Gabapentin (Gabapentin 300 Mg Capsule) 300 mg PO BEDTIME [facility] Last Admin: 06/01/22 21:17 Dose: 300 mg Vancomycin HCl 1,000 mg/ (Sodium Chloride) 270 mls @ 270 mls/hr IV Q12H [facility] Last Admin: 06/02/22 12:30 Dose: 270 mls/hr Albumin Human (Kedbumin 25 %) 100 mls @ 100 mls/hr IV Q4H [facility] Stop: 06/02/22 17:29 Last Admin: 06/02/22 13:29 Dose: 100 mls/hr Insulin Glargine (Insulin Glargine,Hum.Rec.Anlog 100 Unit/Ml 10 Ml Vial) 64 unit SUBCUT BEDTIME [facility] Last Admin: 06/01/22 21:18 Dose: 64 unit Insulin Human Lispro (Insulin Lispro 100 Unit/Ml 3 Ml Vial) 0 unit SUBCUT QIDACHS [facility]; Protocol Last Admin: 06/02/22 13:29 Dose: Not Given Lactulose (Lactulose 20 Gm/30 Ml Solution) 20 gm PO DAILY [facility] Last Admin: 06/02/22 08:03 Dose: Not Given Lactulose (Lactulose 20 Gm/30 Ml Solution) 20 gm PO DAILY PRN PRN Reason: Constipation Levothyroxine Sodium (Levothyroxine Sodium 50 Mcg Tablet) 50 mcg PO DAILY@0600 [facility] Last Admin: 06/02/22 05:28 Dose: 50 mcg Lidocaine (Lidocaine 4 % Patch Adh..Patch) 1 patch TRANSDERMA DAILY [facility]; Protocol Last Admin: 06/02/22 07:52 Dose: 1 patch Lisinopril (Lisinopril 2.5 Mg Tablet) 2.5 mg PO DAILY [facility]; Protocol Last Admin: 06/01/22 08:59 Dose: 2.5 mg Loratadine (Loratadine 10 Mg Tablet) 10 mg PO DAILY PRN PRN Reason: Allergic Symptoms Pt Own (Flovent (220mcg 2 Inhalation)) 2 inhalation PO RBID [facility] Last Admin: 06/02/22 11:07 Dose: 2 inhalation Omeprazole (Omeprazole 40 Mg Capsule.Dr) 40 mg PO DAILY@0630 [facility] Last Admin: 06/02/22 05:28 Dose: 40 mg Ondansetron HCl (Ondansetron Hcl 4 Mg/2 Ml Vial) 4 mg IVPUSH Q8H PRN PRN Reason: Nausea and Vomiting Last Admin: 06/01/22 08:58 Dose: 4 mg Pharmacy Consult (Consult Rx Vancomycin Dosing) 1 each MISCELLANE DAILY PRN PRN Reason: Consult order Senna (Sennosides 8.6 Mg Tablet) 8.6 mg PO DAILY PRN PRN Reason: Constipation Sodium Chloride (0.9 % Sodium Chloride Flush 3 Ml Syringe) 3 ml IVFLUSH QSHIFT [facility] Last Admin: 06/02/22 07:53 Dose: 3 ml Spironolactone (Spironolactone 25 Mg Tablet) 75 mg PO BID@0900,1800 [facility]; Protocol Last Admin: 06/02/22 07:51 Dose: 75 mg Vitamin E (Vitamin E (Dl,Tocopheryl Acet) 180 Mg (400 Unit) Capsule) 180 mg PO BID [facility] Last Admin: 06/02/22 07:51 Dose: 180 mg Zinc Sulfate (Zinc Sulfate 220 Mg Capsule) 220 mg PO DAILY [facility] Last Admin: 06/02/22 07:51 Dose: 220 mg Home Medications Medication Instructions Recorded Confirmed Last Taken Type albuterol sulfate 90 mcg/actuation 2 puff inhalation Q6H PRN Wheezing 08/16/20 05/31/22 3 Days Ago History aerosol inhaler (ProAir HFA) ~05/28/22 blood sugar diagnostic (FreeStyle #10 ea 08/16/20 08/16/20 Unknown History Lite Strips) fluticasone propionate 220 2 puff inhalation BID 08/16/20 05/31/22 3 Days Ago History mcg/actuation HFA aerosol inhaler ~05/28/22 (Flovent HFA) lancets 28 gauge (FreeStyle #100 ea 08/16/20 08/16/20 Unknown History Lancets) gabapentin 300 mg capsule 300 mg PO BEDTIME pain 11/04/21 05/31/22 3 Days Ago History ~05/28/22 levothyroxine 50 mcg tablet 50 mcg PO DAILY@0600 11/04/21 05/31/22 3 Days Ago History ~05/28/22 dulaglutide 1.5 mg/0.5 mL 1.5 mg subcut MO@0900 04/28/22 05/31/22 3 Days Ago History subcutaneous pen injector ~05/28/22 (Trulicity) vitamin A 10,000 unit capsule 1 cap PO DAILY 04/28/22 05/31/22 3 Days Ago History ~05/28/22 insulin glargine U-300 conc 300 80 unit subcut BEDTIME 04/30/22 05/31/22 3 Days Ago History unit/mL (3 mL) subcutaneous pen ~05/28/22 (Toujeo Max U-300 SoloStar) acetaminophen 325 mg tablet 2 tab PO Q8H PRN pain 05/31/22 05/31/22 3 Days Ago History ~05/28/22 docusate sodium 100 mg capsule 1 cap PO BID PRN constipation 05/31/22 05/31/22 3 Days Ago History ~05/28/22 insulin lispro 100 unit/mL 26 unit subcut TIDAC 05/31/22 05/31/22 3 Days Ago History subcutaneous pen ~05/28/22 ipratropium 0.5 mg-albuterol 3 mg 1 amp inhalation QID PRN dyspnea 05/31/22 05/31/22 3 Days Ago History (2.5 mg base)/3 mL nebulization ~05/28/22 soln lactulose 10 gram/15 mL oral 30 ml PO DAILY PRN Constipation 05/31/22 05/31/22 3 Days Ago History solution ~05/28/22 lisinopril 2.5 mg tablet 1 tab PO DAILY 05/31/22 05/31/22 3 Days Ago History ~05/28/22 loratadine 10 mg tablet 1 tab PO DAILY PRN Allergy Symptoms 05/31/22 05/31/22 3 Days Ago History ~05/28/22 sennosides 8.6 mg tablet (senna) 8.6 mg PO DAILY PRN Constipation 05/31/22 05/31/22 3 Days Ago History ~05/28/22 vitamin E (dl, acetate) 180 mg 1 cap PO BID 05/31/22 05/31/22 3 Days Ago History (400 unit) capsule ~05/28/22 Physical Exam Vital Signs: Vital Signs: Last Vital Signs Temp 97.9 F 06/02/22 11:50 Pulse 110 H 06/02/22 11:50 Resp 18 06/02/22 11:50 BP 102/53 L 06/02/22 11:50 Pulse Ox 93 06/02/22 11:50 O2 Del Method 06/02/22 11:50 O2 Flow Rate 3 06/02/22 11:50 BMI result Body Mass Index 55.4 Const: General: cooperative and no acute distress Orientation/consciousn ess: patient oriented x3 HEENT: Head: Yes normocephalic and Yes atraumatic Eyes: General: appearance normal, both eyes and all related structures Neck: Neck: Yes supple Resp: Effort & Inspection: normal respiratory effort Auscultation: clear to auscultation bilaterally and diminished lung sounds Cardio: Rate: regular rate Rhythm: regular rhythm Heart sounds: S1 normal heart sound present and S2 normal heart sound present GI: Palpation (GI): Soft to palpation, nontender and Ascites present Percussion: Yes bilateral flank dullness Auscultation: normal bowel sounds Skin: General skin exam: no rashes or lesions noted Neuro: General: patient oriented x3 Cognition (Neuro): normal cognition Extrem: General: Yes normal to inspection, Yes no pedal edema and Yes pedal edema Psych: Appearance: grossly normal Results Labs 06/02/22 05:07 06/02/22 05:07 Labs: Short CBC 06/02/22 Range/Units 05:07 WBC 9.4 (4.8-10.8) X10*3/uL Hgb 9.8 L (12.0-16.0) g/dl Hct 29.3 L (37.0-47.0) % Plt Count 37 L (160-400) X10*3/uL BMP 06/02/22 06/02/22 05:07 05:07 Sodium 129 L Potassium 4.4 Chloride 93 L Carbon Dioxide 27 BUN 17 H Creatinine Cancelled 0.85 Calcium 7.8 L D Microbiology Microbiology Results: Microbiology 05/31/22 07:06 Blood - Venous Blood Culture - Preliminary Staphylococcus species 05/31/22 07:06 Blood - Venous Blood Culture - Preliminary Staphylococcus species 06/01/22 00:24 Blood - Venous Blood Culture - Preliminary No growth after 24 hours. 06/01/22 00:24 Blood - Venous Blood Culture - Preliminary No growth after 24 hours. Assessment and Plan (1) 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: Qualifiers: Hepatic cirrhosis type: unspecified hepatic cirrhosis Ascites presence: with ascites Qualified Code(s): K74.60 - Unspecified cirrhosis of liver; R18.8 - Other ascites Status: Acute Plan 1/ Decompensated SERVIN releated cirrhosis with ascites, probably worsened by recent pneumonic infection and deconditioning 2/ Sarcopenia 3/ shoulder pain, probably referred pain from lung 4/ Hyponatremia, 2/2 hypervolemia 5/ High bili mostly indirect, maybe related to sesis and intercurrent infection, antibiotics =, hemolysis PLAN: 1/ Ascites: cont with diuretics as per renal, low sodium diet, can use albumin as needed mariano as has hyponatremia 2/ Shoulder pain, consider CT chest and shoulder to r/o other path and reassess extent of pneumonia, r/o PTE if O2 sats remain low 3/ consider checking haptoglobin and capri test, peripheral smear, already has raised LDH 4/ for pain relief ok to use tylenol but no more than 2 g per day, or lidocaine patch, tramadol-low dose 5/ ok to have high protein diet 1.1g/kg daily, 6/ cont antibiotics for suspected pneumonia, if LFT keep rising then may need to re eval treatments, ensure vaccinated for strep pneumo before d/c Time Spent With Patient Time: Total time managing care of this patient today ____ minutes. Procedures Date of Service Date of Service: 06/02/22
[2022-06-02] MEDS: oxyCODONE HCl Immed Release 5 MG TABLET 2.5 MG PO ×2 (15:24→20:32)
[2022-06-02 16:00] VITALS: BP 111/57; PULSE 109; RESP 18; TEMP 36.9; O2SAT 94
[2022-06-02 16:38] LABS: Glucose, Whole Blood 126 mg/dL (60-115)
[2022-06-02 19:26] VITALS: BP 102/50; PULSE 104; RESP 18; TEMP 36.9; O2SAT 98
[2022-06-02 20:11] LABS: Glucose, Whole Blood 151 mg/dL (60-115)
[2022-06-02] MEDS: Insulin Lispro 100 UNIT/ML 3 ML VIAL SUBCUT (20:24)
[2022-06-02] MEDS: Insulin Glargine,Hum.rec.anlog 100 UNIT/ML 10 ML VIAL 64 UNIT SUBCUT (20:25)
[2022-06-02] MEDS: Gabapentin 300 MG CAPSULE PO (20:26)
[2022-06-03] MEDS: vancomycin HCL 1,000 MG in 0.9 % Sodium Chloride 250 ML 270 MG IV (00:04)
[2022-06-03] MEDS: Albuterol/Iprat 2.5/0.5MG 3 ML AMPUL.NEB INHALE ×2 (00:39→11:57)
[2022-06-03 00:40] VITALS: PULSE 104; RESP 18; O2SAT 96
[2022-06-03 03:45] VITALS: BP 101/57; PULSE 117; RESP 18; TEMP 36.7; O2SAT 93
[2022-06-03] MEDS: oxyCODONE HCl Immed Release 5 MG TABLET 2.5 MG PO ×2 (06:05→17:20)
[2022-06-03] MEDS: Levothyroxine Sodium 50 MCG TABLET PO (06:05)
[2022-06-03] MEDS: Omeprazole 40 MG CAPSULE.DR PO (06:05)
[2022-06-03 06:07] LABS: PLT CLUMP 1
[2022-06-03 06:09] LABS: Hematocrit 26.7 % (37.0-47.0); Mean Corpuscular HGB Conc 33.7 g/dl (31.0-35.0); Mean Corpuscular Hemoglobin 31.7 pg (27.0-33.0); Mean Platelet Volume 11.3 fL (9.4-12.3); Red Blood Count 2.84 X10*6/uL (4.20-5.50); Red Cell Distribution Width 17.1 % (11.0-16.0)
[2022-06-03 06:10] LABS: Anion Gap 12 (12-20); Blood Urea Nitrogen 19 mg/dL (9-16); Calcium 7.6 mg/dL (8.4-10.2); Carbon Dioxide 28 mmol/L (22-29); Chloride 93 mmol/L (96-108); Creatinine Clr Calc Pharmacy 98.9; Estimated Glomerular Filt Rate > 60; Glucose Random 116 mg/dL (60-115); Potassium 4.1 mmol/L (3.3-5.1); Sodium 129 mmol/L (135-145)
[2022-06-03 06:37] LABS: Platelet Count 32 X10*3/uL (160-400); White Blood Count 6.9 X10*3/uL (4.8-10.8)
[2022-06-03 07:38] VITALS: BP 103/55; PULSE 114; RESP 18; TEMP 36.8; O2SAT 91
[2022-06-03 07:45] LABS: Glucose, Whole Blood 93 mg/dL (60-115)
--- NOTE | 2022-06-03 07:49 | PM.PNNEP ---
Subjective Subjective Date of Service: 06/03/22 Interval history: seen and examined no complaints Physical Exam Vital Signs: Vital Signs: Last Vital Signs Temp 98.3 F 06/03/22 07:38 Pulse 114 H 06/03/22 07:38 Resp 18 06/03/22 07:38 BP 103/55 L 06/03/22 07:38 Pulse Ox 91 L 06/03/22 07:38 O2 Del Method 06/03/22 07:38 O2 Flow Rate 2 06/03/22 07:38 BMI result Body Mass Index 55.4 Const: General: no acute distress HEENT: Head: Yes normocephalic and Yes atraumatic Neck: Neck: Yes supple Resp: Auscultation: diminished lung sounds Cardio: Heart sounds: S1 normal heart sound present and S2 normal heart sound present GI: Palpation (GI): Soft to palpation and nontender Extrem: General: Yes pedal edema Objective Data Labs 06/03/22 05:04 06/03/22 05:04 Labs: Laboratory Results - last 24 hr 06/02/22 06/02/22 06/02/22 05:07 07:24 09:35 WBC RBC Hgb Hct MCV MCH MCHC RDW Plt Count MPV Absolute Nucleated RBC Nucleated RBC % (auto) Sodium Potassium Chloride Carbon Dioxide Anion Gap BUN Creatinine Estim Creat Clear Calc Estimated GFR POC Glucose 87 Random Glucose Calcium Lactate Dehydrogenase 238 H Peritoneal WBC 0.203 Peritoneal RBC < 0.002 Periton Neutrophils 45 Periton Lymphocytes 18 Peritoneal Monocytes 19 Peritoneal Other Cells 18 Vancomycin Trough 06/02/22 06/02/22 06/02/22 11:22 11:49 16:21 WBC RBC Hgb Hct MCV MCH MCHC RDW Plt Count MPV Absolute Nucleated RBC Nucleated RBC % (auto) Sodium Potassium Chloride Carbon Dioxide Anion Gap BUN Creatinine Estim Creat Clear Calc Estimated GFR POC Glucose 144 H 126 H Random Glucose Calcium Lactate Dehydrogenase Peritoneal WBC Peritoneal RBC Periton Neutrophils Periton Lymphocytes Peritoneal Monocytes Peritoneal Other Cells Vancomycin Trough 15.4 06/02/22 06/03/22 06/03/22 19:30 05:04 05:04 WBC 6.9 RBC 2.84 L Hgb 9.0 L Hct 26.7 L MCV 94.0 MCH 31.7 MCHC 33.7 RDW 17.1 H Plt Count 32 L MPV 11.3 Absolute Nucleated RBC 0.000 Nucleated RBC % (auto) 0.0 Sodium Potassium Chloride Carbon Dioxide Anion Gap BUN Creatinine Cancelled Estim Creat Clear Calc Cancelled Estimated GFR Cancelled POC Glucose 151 H Random Glucose Calcium Lactate Dehydrogenase Peritoneal WBC Peritoneal RBC Periton Neutrophils Periton Lymphocytes Peritoneal Monocytes Peritoneal Other Cells Vancomycin Trough 06/03/22 06/03/22 05:04 07:36 WBC RBC Hgb Hct MCV MCH MCHC RDW Plt Count MPV Absolute Nucleated RBC Nucleated RBC % (auto) Sodium 129 L Potassium 4.1 Chloride 93 L Carbon Dioxide 28 Anion Gap 12 BUN 19 H Creatinine 0.99 Estim Creat Clear Calc 98.9 Estimated GFR > 60 POC Glucose 93 Random Glucose 116 H Calcium 7.6 L Lactate Dehydrogenase Peritoneal WBC Peritoneal RBC Periton Neutrophils Periton Lymphocytes Peritoneal Monocytes Peritoneal Other Cells Vancomycin Trough Microbiology Microbiology Results: Microbiology 06/02/22 09:35 Abdominal Fluid Gram Stain - Final 06/02/22 09:35 Abdominal Fluid Routine Culture - Preliminary No growth to date. 06/02/22 09:35 Abdominal Fluid Anaerobic Culture - Preliminary No growth to date. 06/01/22 00:24 Blood - Venous Blood Culture - Preliminary No growth after 48 hours. 06/01/22 00:24 Blood - Venous Blood Culture - Preliminary Prelim: GPC Gram Stain only 05/31/22 07:06 Blood - Venous Blood Culture - Preliminary Staphylococcus species 05/31/22 07:06 Blood - Venous Blood Culture - Preliminary Staphylococcus species Procedures Date of Service Date of Service: 06/03/22 Assessment & Plan Assessment and plan (1) Hyponatremia: Status: Acute (2) 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: Status: Acute Plan Sna unchanged hypervolemic hyponatremia in the setting of liver cirrhosis c/w with hepatic physiology REC continue combination loop diuretics and potassium sparing agent continue fluid restriction follow kidney function and electrolytes Time Spent With Patient Time: Total time managing care of this patient today ____ minutes. Progress Note: Quality Stroke Does the patient have a stroke diagnosis?: No
[2022-06-03] MEDS: Spironolactone 25 MG TABLET 75 MG PO ×2 (08:00→17:21)
[2022-06-03] MEDS: Lactulose 20 GM/30 ML SOLUTION PO (08:01)
[2022-06-03] MEDS: Vitamin E (Dl,Tocopheryl Acet) 180 MG (400 UNIT) CAPSULE PO ×2 (08:01→21:45)
[2022-06-03] MEDS: 0.9 % Sodium Chloride Flush 3 ML SYRINGE IVFLUSH ×3 (08:01→21:47)
[2022-06-03] MEDS: Zinc Sulfate 220 MG CAPSULE PO (08:01)
[2022-06-03] MEDS: Lidocaine 4 % Patch ADH..PATCH 1 PATCH TRANSDERMA (08:02)
[2022-06-03] MEDS: Furosemide 40 MG/4 ML VIAL 80 MG IVPUSH ×2 (08:04→17:21)
[2022-06-03 09:12] LABS: Glucose Peritoneal Fluid 134 MG/DL; LDH Peritoneal Fluid 52 U/L
[2022-06-03 10:16] LABS: Vancomycin Trough 19.6 mcg/mL (10.0-20.0)
--- NOTE | 2022-06-03 10:21 | HE.PHANOTE ---
RE: vanco Trough on 06/03 came back at 19.6; held dose for 1200 and decreased to 750mg Q12H with predicted AUC 449mg/L, trough 13mg/L. Getting another level at 2100 before next dose for 2300.
--- NOTE | 2022-06-03 11:07 | P.PNIM_ITS ---
Subjective Subjective Date of Service: 06/03/22 Interval History: cc: abd distension interval history:improving after paracentesis Physical Exam Vital Signs: Vital Signs: Last Vital Signs Temp 98.3 F 06/03/22 07:38 Pulse 114 H 06/03/22 07:38 Resp 18 06/03/22 07:38 BP 103/55 L 06/03/22 07:38 Pulse Ox 91 L 06/03/22 07:38 O2 Del Method 06/03/22 07:38 O2 Flow Rate 2 06/03/22 07:38 BMI result Body Mass Index 55.4 General: AO X 3, no acute distress Resp: CTA bilateral, no accessory muscles used CVS: S1,S2,RRR GI: soft, non tender, distended Neuro: motor grossly intact, alert Psych: appropriate affect, appropriate insight Objective Data Active Medications Acetaminophen (Acetaminophen 325 Mg Tablet) 650 mg PO Q6H PRN PRN Reason: Pain, Mild (Pain Scale 1-3) Albuterol Sulfate (Albuterol Sulfate 90 Mcg 8 Gm Inhaler) 2 puff INHALE Q6H PRN PRN Reason: Wheezing Last Admin: 06/02/22 11:09 Dose: 2 puff Documented By: ANJALI Albuterol/Ipratropium (Albuterol/Iprat 2.5/0.5mg 3 Ml Ampul.Neb) 3 ml INHALE QID PRN PRN Reason: dyspnea Last Admin: 06/03/22 00:39 Dose: 3 ml Documented By: HENRY Calcium Carbonate (Calcium Carbonate 750 Mg Tab.Chew) 750 mg PO Q4H PRN PRN Reason: Heartburn Last Admin: 06/01/22 17:32 Dose: 750 mg Documented By: WILLIAM Docusate Sodium (Docusate Sodium 100 Mg Capsule) 100 mg PO DAILY PRN PRN Reason: Constipation Docusate Sodium (Docusate Sodium 100 Mg Capsule) 100 mg PO BID PRN PRN Reason: constipation Furosemide (Furosemide 40 Mg/4 Ml Vial) 80 mg IVPUSH BID@0900,1800 [facility]; Protocol Last Admin: 06/03/22 08:04 Dose: 80 mg Documented By: VICENTA Gabapentin (Gabapentin 300 Mg Capsule) 300 mg PO BEDTIME [facility] Last Admin: 06/02/22 20:26 Dose: 300 mg Documented By: SUZIE Cefazolin Sodium/Dextrose (Ancef) 2 gm in 50 mls @ 100 mls/hr IV Q8H [facility] Insulin Glargine (Insulin Glargine,Hum.Rec.Anlog 100 Unit/Ml 10 Ml Vial) 64 unit SUBCUT BEDTIME [facility] Last Admin: 06/02/22 20:25 Dose: 64 unit Documented By: SUZIE Insulin Human Lispro (Insulin Lispro 100 Unit/Ml 3 Ml Vial) 0 unit SUBCUT QIDACHS [facility]; Protocol Last Admin: 06/03/22 07:59 Dose: Not Given Documented By: VICENTA Non-Admin Reason: No Insulin Coverage Lactulose (Lactulose 20 Gm/30 Ml Solution) 20 gm PO DAILY [facility] Last Admin: 06/03/22 08:01 Dose: 20 gm Documented By: VICENTA Lactulose (Lactulose 20 Gm/30 Ml Solution) 20 gm PO DAILY PRN PRN Reason: Constipation Levothyroxine Sodium (Levothyroxine Sodium 50 Mcg Tablet) 50 mcg PO DAILY@0600 [facility] Last Admin: 06/03/22 06:05 Dose: 50 mcg Documented By: SUZIE Lisinopril (Lisinopril 2.5 Mg Tablet) 2.5 mg PO DAILY [facility]; Protocol Last Admin: 06/01/22 08:59 Dose: 2.5 mg Documented By: WILLIAM Loratadine (Loratadine 10 Mg Tablet) 10 mg PO DAILY PRN PRN Reason: Allergic Symptoms Pt Own (Flovent (220mcg 2 Inhalation)) 2 inhalation PO RBID [facility] Last Admin: 06/03/22 03:44 Dose: Not Given Documented By: SUZIE Non-Admin Reason: respiratory Omeprazole (Omeprazole 40 Mg Capsule.Dr) 40 mg PO DAILY@0630 [facility] Last Admin: 06/03/22 06:05 Dose: 40 mg Documented By: SUZIE Ondansetron HCl (Ondansetron Hcl 4 Mg/2 Ml Vial) 4 mg IVPUSH Q8H PRN PRN Reason: Nausea and Vomiting Last Admin: 06/01/22 08:58 Dose: 4 mg Documented By: WILLIAM Oxycodone HCl (Oxycodone Hcl Immed Release 5 Mg Tablet) 2.5 mg PO Q6H PRN PRN Reason: Pain, Moderate (Pain Scale 4-6 Last Admin: 06/03/22 06:05 Dose: 2.5 mg Documented By: SUZIE Senna (Sennosides 8.6 Mg Tablet) 8.6 mg PO DAILY PRN PRN Reason: Constipation Sodium Chloride (0.9 % Sodium Chloride Flush 3 Ml Syringe) 3 ml IVFLUSH QSHIFT [facility] Last Admin: 06/03/22 08:01 Dose: 3 ml Documented By: VICENTA Spironolactone (Spironolactone 25 Mg Tablet) 75 mg PO BID@0900,1800 [facility]; Protocol Last Admin: 06/03/22 08:00 Dose: 75 mg Documented By: VICENTA Vitamin E (Vitamin E (Dl,Tocopheryl Acet) 180 Mg (400 Unit) Capsule) 180 mg PO BID [facility] Last Admin: 06/03/22 08:01 Dose: 180 mg Documented By: VICENTA Zinc Sulfate (Zinc Sulfate 220 Mg Capsule) 220 mg PO DAILY [facility] Last Admin: 06/03/22 08:01 Dose: 220 mg Documented By: VICENTA Labs 06/03/22 05:04 06/03/22 05:04 Labs: Laboratory Results - last 24 hr 06/02/22 06/02/22 06/02/22 09:35 09:35 11:22 MCV MCH MCHC RDW Plt Count MPV Absolute Nucleated RBC Nucleated RBC % (auto) Anion Gap Estim Creat Clear Calc Estimated GFR POC Glucose Random Glucose Calcium Peritoneal WBC 0.203 Peritoneal RBC < 0.002 Periton Neutrophils 45 Periton Lymphocytes 18 Peritoneal Monocytes 19 Peritoneal Other Cells 18 Peritoneal Tot Protein 1.0 Peritoneal LDH 52 Peritoneal Glucose 134 Vancomycin Trough 15.4 06/02/22 06/02/22 06/02/22 11:49 16:21 19:30 MCV MCH MCHC RDW Plt Count MPV Absolute Nucleated RBC Nucleated RBC % (auto) Anion Gap Estim Creat Clear Calc Estimated GFR POC Glucose 144 H 126 H 151 H Random Glucose Calcium Peritoneal WBC Peritoneal RBC Periton Neutrophils Periton Lymphocytes Peritoneal Monocytes Peritoneal Other Cells Peritoneal Tot Protein Peritoneal LDH Peritoneal Glucose Vancomycin Trough 06/03/22 06/03/22 06/03/22 05:04 05:04 05:04 MCV 94.0 MCH 31.7 MCHC 33.7 RDW 17.1 H Plt Count 32 L MPV 11.3 Absolute Nucleated RBC 0.000 Nucleated RBC % (auto) 0.0 Anion Gap 12 Estim Creat Clear Calc Cancelled 98.9 Estimated GFR Cancelled > 60 POC Glucose Random Glucose 116 H Calcium 7.6 L Peritoneal WBC Peritoneal RBC Periton Neutrophils Periton Lymphocytes Peritoneal Monocytes Peritoneal Other Cells Peritoneal Tot Protein Peritoneal LDH Peritoneal Glucose Vancomycin Trough 06/03/22 06/03/22 07:36 09:45 MCV MCH MCHC RDW Plt Count MPV Absolute Nucleated RBC Nucleated RBC % (auto) Anion Gap Estim Creat Clear Calc Estimated GFR POC Glucose 93 Random Glucose Calcium Peritoneal WBC Peritoneal RBC Periton Neutrophils Periton Lymphocytes Peritoneal Monocytes Peritoneal Other Cells Peritoneal Tot Protein Peritoneal LDH Peritoneal Glucose Vancomycin Trough 19.6 Microbiology Microbiology Results: Microbiology 06/01/22 00:24 Blood Culture - Final Blood - Venous Staphylococcus aureus 05/31/22 07:06 Blood Culture - Final Blood - Venous Staphylococcus aureus 05/31/22 07:06 Blood Culture - Final Blood - Venous Staphylococcus aureus 06/02/22 09:35 Gram Stain - Final Abdominal Fluid Routine Culture - Preliminary No growth to date. Anaerobic Culture - Preliminary No growth to date. 06/01/22 00:24 Blood Culture - Preliminary Blood - Venous No growth after 48 hours. Assessment and Plan (1) Coagulopathy: Status: Acute (2) Thrombocytopenia: Status: Acute (3) Pneumonia: Status: Acute (4) Ascites: Status: Acute (5) Positive blood culture: Status: Acute Plan 46F PMH SERVIN cirrhosis, pcos, DM, HTN, morbid obesity, presented with painfulc ascites, found to have bacteremia MSSA bacteremia unclear source follow up repeat change to ancef ID eval echo acute hypoxic respiratory failure cxr with atelectasis, wean o2 as tolerated SERVIN cirrhosis with painful ascites, thrombcytopenia s/p paracentesis 7.5L 06/02/22 negative for sbp continue lasix, aldactone acute on chronic hyponatremia Likely hypervolemic hyponatremia from cirrhosis fluid restrict Follow BMP type 2 diabetes SSI, Lantus Diabetic diet morbid obesity weight loss recommended hypothyroidism levothyroxine HTN lisinopril, aldactone DVT ppx: SCDs - thrombocytopenia reason for continued hospitalization: bacteremia Time Spent With Patient Time: Total time managing care of this patient today ____ minutes. Quality Stroke Does the patient have a stroke diagnosis?: No VTE Prior VTE?: No VTE Risk Level:: Medical - moderate - high VTE Device Contraindication: N/A - Device Ordered VTE Drug Contraindication: Treatment Not Indicated
[2022-06-03 11:32] LABS: Glucose, Whole Blood 121 mg/dL (60-115)
[2022-06-03] MEDS: ceFAZolin Sodium/Dextrose,Iso 2 GM/50 ML PIGGYBACK IV ×2 (12:01→18:15)
[2022-06-03] MEDS: Calcium Carbonate 750 MG TAB.CHEW PO (12:23)
--- NOTE | 2022-06-03 15:00 | CA_ITS ---
Transthoracic Echocardiogram Patient (Last, First, Middle): Ema Aguilar, Gender: Female Date of : 1975 Age: 46 Procedure Date: 06/03/2022 Procedure Type: Transthoracic Echocardiogram Location: S3E Height: 63. cm Weight: 312. 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 The visually estimated ejection fraction is between 65-70%. Diastolic function is normal for age. - Normal right ventricular cavity size and systolic function. - There is a normal trileaflet aortic valve. There is mild thickening of the aortic valve. - No obvious vegetation noted but 2 D assessment of the valves is somewhat limited. Findings Procedure Information Contrast agent, definity, is being given per protocol without apparent complications. Left Ventricle Normal left ventricular size, thickness, systolic function, and wall motion. The visually estimated ejection fraction is between 65-70%. Diastolic function is normal for age. Right Ventricle Normal right ventricular cavity size and systolic function. Atria The left atrium is normal in size. The right atrium is normal in size. Aortic Valve There is a normal trileaflet aortic valve. There is mild thickening of the aortic valve. There is no aortic valve stenosis. There is no aortic valve regurgitation. Mitral Valve Normal mitral valve structure and function. There is no mitral valve regurgitation. There is no mitral valve stenosis. Pulmonic Valve The pulmonic valve was not well visualized. Tricuspid Valve The tricuspid valve was not well visualized. Great Vessels All visible segments of the aorta are normal in size. The pulmonary artery was not well visualized. Venous The inferior vena cava was not well visualized. Pericardium/Pleural There is no evidence of pericardial effusion. Prior Study Comparison No prior study available for comparison. Recommendations, Care & Conclusions Consider a DEMETRI if clinically appropriate. Measurements 2D Linear Measurements IVSd: 0.86 0.6-0.9/0.6-1.0 cm LVIDd: 4.19 3.9-5.3/4.2-5.9 cm LVIDs: 2.50 2.0-3.6 cm LVPWd: 0.85 0.7-1.1 cm LA Diam: 3.80 2.7-3.8/3.0-4.0 cm LV Mass: 137.96 67-162/88-224 g LVOT Diam: 1.80 3.0+(-)1.3 cm 2D Systolic Function EF 4C: 60.50 >55% EF 2C: 72.20 >55% EF BiP: 68.40 >55% Mitral Valve MV Pk E: 1.19 MV PK A: 1.29 MV Decel Time: 199.00 E/A: 0.90 E'Lateral: 12.70 E'Medial: 9.25 E/E' Med: 12.90 E/E' Lat: 9.40 PHT: 58.00 MVA PHT: 3.79 Decel [place]: 5.98 LVOT LVOT Pk James: 1.41 LVOT Mn James: 0.99 LVOT VTI: 0.25 LVOT Pk Grad: 8.00 LVOT Mn Grad: 4.00 LVOT Diam: 1.80 LVOT Area: 2.54 Diastolic Function MV Pk E: 1.19 MV Pk A: 1.29 E/A: 0.90 E'Medial: 9.25 E/E' Med: 12.90 E' Laterial: 12.70 E/E' Lat: 9.40 Right Ventricle TAPSE (mm): 19.90 TVS' James: 14.60 Great Vessels Aorta Sinus of Valsalva: 3.00 2.0-3.5 cm Ao Asc: 3.00 2.1-3.4 cm Pulmonary Valve PV Pk James: 1.03 Peak PV Grad: 4.00 Updated in Other Vendor System with Status of Final Neal Arriaga MD electronically signed on 06/03/2022 10:10:26 PM with status of Final
--- NOTE | 2022-06-03 15:09 | W.PM.IDCN ---
History of Present Illness Data of Consult Service Date: 06/03/22 Requesting physician: Demetrio Mares Primary Care Provider: Radha Anne MD HPI Reason for consult: MSSA bacteremia,sepsis She presents with left shoulder pain ,10/27 She has felt feverish and chills. She has tachycardia and leukocytosis and blood cultures 05/31 MSSA. She has wound dorsum right foot. 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 Morbid obesity Non-toxic multinodular goiter AMY (obstructive sleep apnea) PCOS (polycystic ovarian syndrome) Status post abdominal paracentesis Family History Family History Father Unknown family medical history Mother Hx of type 1 diabetes mellitus Surgical History Surgical History Hx of colonoscopy Hx of endoscopy Social History Social History Household Members: Spouse Housing: House Do you presently have visiting nurse or other home services: No Alcohol intake: never Patient Tobacco Use Status: Former Tobacco user Quit Date: 7 yrs ago Substance Use Type: Marijuana service: No Current occupational status: disabled 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 Meds Allergies Allergy/AdvReac Type Severity Reaction Status Date / Time ibuprofen [From MOTRIN] Allergy Intermediate RASH Verified 04/30/22 11:52 penicillin V Allergy Mild hives Verified 04/30/22 11:52 codeine Allergy Unknown Verified 04/28/22 12:04 Rx- listed on H&P lidocaine Allergy Blister Verified 06/03/22 08:17 Active Medications: Current Medications Acetaminophen (Acetaminophen 325 Mg Tablet) 650 mg PO Q6H PRN PRN Reason: Pain, Mild (Pain Scale 1-3) Albuterol Sulfate (Albuterol Sulfate 90 Mcg 8 Gm Inhaler) 2 puff INHALE Q6H PRN PRN Reason: Wheezing Last Admin: 06/02/22 11:09 Dose: 2 puff Albuterol/Ipratropium (Albuterol/Iprat 2.5/0.5mg 3 Ml Ampul.Neb) 3 ml INHALE QID PRN PRN Reason: dyspnea Last Admin: 06/03/22 11:57 Dose: 3 ml Calcium Carbonate (Calcium Carbonate 750 Mg Tab.Chew) 750 mg PO Q4H PRN PRN Reason: Heartburn Last Admin: 06/03/22 12:23 Dose: 750 mg Docusate Sodium (Docusate Sodium 100 Mg Capsule) 100 mg PO DAILY PRN PRN Reason: Constipation Docusate Sodium (Docusate Sodium 100 Mg Capsule) 100 mg PO BID PRN PRN Reason: constipation Furosemide (Furosemide 40 Mg/4 Ml Vial) 80 mg IVPUSH BID@0900,1800 [facility]; Protocol Last Admin: 06/03/22 08:04 Dose: 80 mg Gabapentin (Gabapentin 300 Mg Capsule) 300 mg PO BEDTIME [facility] Last Admin: 06/02/22 20:26 Dose: 300 mg Cefazolin Sodium/Dextrose (Ancef) 2 gm in 50 mls @ 100 mls/hr IV Q8H [facility] Last Infusion: 06/03/22 12:50 Dose: Infused Insulin Glargine (Insulin Glargine,Hum.Rec.Anlog 100 Unit/Ml 10 Ml Vial) 64 unit SUBCUT BEDTIME [facility] Last Admin: 06/02/22 20:25 Dose: 64 unit Insulin Human Lispro (Insulin Lispro 100 Unit/Ml 3 Ml Vial) 0 unit SUBCUT QIDACHS [facility]; Protocol Last Admin: 06/03/22 11:49 Dose: Not Given Lactulose (Lactulose 20 Gm/30 Ml Solution) 20 gm PO DAILY [facility] Last Admin: 06/03/22 08:01 Dose: 20 gm Lactulose (Lactulose 20 Gm/30 Ml Solution) 20 gm PO DAILY PRN PRN Reason: Constipation Levothyroxine Sodium (Levothyroxine Sodium 50 Mcg Tablet) 50 mcg PO DAILY@0600 [facility] Last Admin: 06/03/22 06:05 Dose: 50 mcg Lisinopril (Lisinopril 2.5 Mg Tablet) 2.5 mg PO DAILY [facility]; Protocol Last Admin: 06/01/22 08:59 Dose: 2.5 mg Loratadine (Loratadine 10 Mg Tablet) 10 mg PO DAILY PRN PRN Reason: Allergic Symptoms Pt Own (Flovent (220mcg 2 Inhalation)) 2 inhalation PO RBID [facility] Last Admin: 06/03/22 11:58 Dose: 2 inhalation Omeprazole (Omeprazole 40 Mg Capsule.Dr) 40 mg PO DAILY@0630 [facility] Last Admin: 06/03/22 06:05 Dose: 40 mg Ondansetron HCl (Ondansetron Hcl 4 Mg/2 Ml Vial) 4 mg IVPUSH Q8H PRN PRN Reason: Nausea and Vomiting Last Admin: 06/01/22 08:58 Dose: 4 mg Oxycodone HCl (Oxycodone Hcl Immed Release 5 Mg Tablet) 2.5 mg PO Q6H PRN PRN Reason: Pain, Moderate (Pain Scale 4-6 Last Admin: 06/03/22 06:05 Dose: 2.5 mg Senna (Sennosides 8.6 Mg Tablet) 8.6 mg PO DAILY PRN PRN Reason: Constipation Sodium Chloride (0.9 % Sodium Chloride Flush 3 Ml Syringe) 3 ml IVFLUSH QSHIFT [facility] Last Admin: 06/03/22 08:01 Dose: 3 ml Spironolactone (Spironolactone 25 Mg Tablet) 75 mg PO BID@0900,1800 [facility]; Protocol Last Admin: 06/03/22 08:00 Dose: 75 mg Vitamin E (Vitamin E (Dl,Tocopheryl Acet) 180 Mg (400 Unit) Capsule) 180 mg PO BID [facility] Last Admin: 06/03/22 08:01 Dose: 180 mg Zinc Sulfate (Zinc Sulfate 220 Mg Capsule) 220 mg PO DAILY [facility] Last Admin: 06/03/22 08:01 Dose: 220 mg Home Medications Medication Instructions Recorded Confirmed Last Taken Type albuterol sulfate 90 mcg/actuation 2 puff inhalation Q6H PRN Wheezing 08/16/20 05/31/22 3 Days Ago History aerosol inhaler (ProAir HFA) ~05/28/22 blood sugar diagnostic (Masonyle #10 ea 08/16/20 08/16/20 Unknown History Lite Strips) fluticasone propionate 220 2 puff inhalation BID 08/16/20 05/31/22 3 Days Ago History mcg/actuation HFA aerosol inhaler ~05/28/22 (Flovent HFA) lancets 28 gauge (FreeStyle #100 ea 08/16/20 08/16/20 Unknown History Lancets) gabapentin 300 mg capsule 300 mg PO BEDTIME pain 11/04/21 05/31/22 3 Days Ago History ~05/28/22 levothyroxine 50 mcg tablet 50 mcg PO DAILY@0600 11/04/21 05/31/22 3 Days Ago History ~05/28/22 dulaglutide 1.5 mg/0.5 mL 1.5 mg subcut MO@0900 04/28/22 05/31/22 3 Days Ago History subcutaneous pen injector ~05/28/22 (Trulicity) vitamin A 10,000 unit capsule 1 cap PO DAILY 04/28/22 05/31/22 3 Days Ago History ~05/28/22 insulin glargine U-300 conc 300 80 unit subcut BEDTIME 04/30/22 05/31/22 3 Days Ago History unit/mL (3 mL) subcutaneous pen ~05/28/22 (Toujeo Max U-300 SoloStar) acetaminophen 325 mg tablet 2 tab PO Q8H PRN pain 05/31/22 05/31/22 3 Days Ago History ~05/28/22 docusate sodium 100 mg capsule 1 cap PO BID PRN constipation 05/31/22 05/31/22 3 Days Ago History ~05/28/22 insulin lispro 100 unit/mL 26 unit subcut TIDAC 05/31/22 05/31/22 3 Days Ago History subcutaneous pen ~05/28/22 ipratropium 0.5 mg-albuterol 3 mg 1 amp inhalation QID PRN dyspnea 05/31/22 05/31/22 3 Days Ago History (2.5 mg base)/3 mL nebulization ~05/28/22 soln lactulose 10 gram/15 mL oral 30 ml PO DAILY PRN Constipation 05/31/22 05/31/22 3 Days Ago History solution ~05/28/22 lisinopril 2.5 mg tablet 1 tab PO DAILY 05/31/22 05/31/22 3 Days Ago History ~05/28/22 loratadine 10 mg tablet 1 tab PO DAILY PRN Allergy Symptoms 05/31/22 05/31/22 3 Days Ago History ~05/28/22 sennosides 8.6 mg tablet (senna) 8.6 mg PO DAILY PRN Constipation 05/31/22 05/31/22 3 Days Ago History ~05/28/22 vitamin E (dl, acetate) 180 mg 1 cap PO BID 05/31/22 05/31/22 3 Days Ago History (400 unit) capsule ~05/28/22 Physical Exam Vital Signs: Vital Signs: Last Vital Signs Temp 98.3 F 06/03/22 07:38 Pulse 114 H 06/03/22 07:38 Resp 18 06/03/22 07:38 BP 103/55 L 06/03/22 07:38 Pulse Ox 91 L 06/03/22 07:38 O2 Del Method 06/03/22 07:38 O2 Flow Rate 2 06/03/22 07:38 BMI result Body Mass Index 55.4 Const: General: cooperative HEENT: Head: Yes normal to inspection Face and sinus: Yes normal facial exam Mouth: Normal oral and palatal mucosa present Teeth and gingiva: dentition normal Eyes: General: appearance normal, both eyes and all related structures Pupils: Equal, round and reactive pupils present Resp: Effort & Inspection: normal respiratory effort Cardio: Rate: regular rate Rhythm: regular rhythm GI: Other: some abdominal distention Palpation (GI): Soft to palpation and nontender : General: Yes no CVA tenderness Back/Spine/Pelvis: Back: no CVA tenderness Skin: Other: blisters left shoulder abrasion right dorsum foot Neuro: General: moves all extremities Cranial nerves: Yes Equal, round and reactive pupils present Extrem: General: Yes normal to inspection Psych: Appearance: grossly normal Results Labs 06/03/22 05:04 06/03/22 05:04 Labs: Short CBC 06/03/22 Range/Units 05:04 WBC 6.9 (4.8-10.8) X10*3/uL Hgb 9.0 L (12.0-16.0) g/dl Hct 26.7 L (37.0-47.0) % Plt Count 32 L (160-400) X10*3/uL BMP 06/03/22 06/03/22 05:04 05:04 Sodium 129 L Potassium 4.1 Chloride 93 L Carbon Dioxide 28 BUN 19 H Creatinine Cancelled 0.99 Calcium 7.6 L Microbiology Microbiology Results: Microbiology 06/01/22 00:24 Blood - Venous Blood Culture - Final Staphylococcus aureus 05/31/22 07:06 Blood - Venous Blood Culture - Final Staphylococcus aureus 05/31/22 07:06 Blood - Venous Blood Culture - Final Staphylococcus aureus 06/02/22 09:35 Abdominal Fluid Gram Stain - Final 06/02/22 09:35 Abdominal Fluid Routine Culture - Preliminary No growth to date. 06/02/22 09:35 Abdominal Fluid Anaerobic Culture - Preliminary No growth to date. 06/01/22 00:24 Blood - Venous Blood Culture - Preliminary No growth after 48 hours. Assessment and Plan (1) 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: Qualifiers: Ascites presence: with ascites Hepatic cirrhosis type: unspecified hepatic cirrhosis Qualified Code(s): K74.60 - Unspecified cirrhosis of liver; R18.8 - Other ascites Status: Acute (2) Positive blood culture: Status: Acute MSSA bacteremia sepsis can be from skin source (resolving foot ) or idiopathic or from SBP or dorsal right foot wound or from endocarditis SBP since 06/02 WBC are 285 (over 250) and only 30% cultures positive in SBP (3) Thrombocytopenia: Status: Acute Plan 4 weeks IV Kefzol likely then probably po Levaquin 500 mg three times a week after Kefzol Check TTE evaluate endocarditis. Follow blisters left shoulder ?herpes zoster (they think from pain patch) Shoulder MRI if difficulty moving left arm (none now). Time Spent With Patient Time: Total time managing care of this patient today ____ minutes.
[2022-06-03 15:48] VITALS: BP 113/56; PULSE 107; RESP 18; TEMP 36.4; O2SAT 91
[2022-06-03 16:39] LABS: Glucose, Whole Blood 150 mg/dL (60-115)
[2022-06-03] MEDS: Acetaminophen 325 MG TABLET 650 MG PO (17:21)
[2022-06-03] MEDS: Docusate Sodium 100 MG CAPSULE PO (17:21)
[2022-06-03 19:18] VITALS: BP 125/64; PULSE 107; RESP 18; TEMP 36.4; O2SAT 96
[2022-06-03 21:32] LABS: Glucose, Whole Blood 162 mg/dL (60-115)
[2022-06-03] MEDS: Insulin Lispro 100 UNIT/ML 3 ML VIAL SUBCUT (21:44)
[2022-06-03] MEDS: Insulin Glargine,Hum.rec.anlog 100 UNIT/ML 10 ML VIAL 64 UNIT SUBCUT (21:44)
[2022-06-03] MEDS: Gabapentin 300 MG CAPSULE PO (21:45)
[2022-06-04] MEDS: oxyCODONE HCl Immed Release 5 MG TABLET 2.5 MG PO ×3 (02:52→20:27)
[2022-06-04] MEDS: ceFAZolin Sodium/Dextrose,Iso 2 GM/50 ML PIGGYBACK IV ×3 (02:52→20:21)
[2022-06-04 03:37] VITALS: BP 102/55; PULSE 100; RESP 17; TEMP 36.3; O2SAT 94
[2022-06-04] MEDS: Levothyroxine Sodium 50 MCG TABLET PO (05:33)
[2022-06-04] MEDS: Omeprazole 40 MG CAPSULE.DR PO (05:33)
[2022-06-04 05:43] LABS: Hematocrit 28.2 % (37.0-47.0); Hemoglobin 9.5 g/dl (12.0-16.0); Mean Corpuscular HGB Conc 33.7 g/dl (31.0-35.0); Mean Corpuscular Hemoglobin 31.8 pg (27.0-33.0); Mean Corpuscular Volume 94.3 fL (80.0-98.0); Mean Platelet Volume 12.4 fL (9.4-12.3); Red Blood Count 2.99 X10*6/uL (4.20-5.50); White Blood Count 6.9 X10*3/uL (4.8-10.8)
[2022-06-04 05:47] LABS: Platelet Count 28 X10*3/uL (160-400)
[2022-06-04 06:03] LABS: Anion Gap 12 (12-20); Blood Urea Nitrogen 18 mg/dL (9-16); Calcium 7.7 mg/dL (8.4-10.2); Carbon Dioxide 29 mmol/L (22-29); Chloride 93 mmol/L (96-108); Creatinine Clr Calc Pharmacy 94.9; Estimated Glomerular Filt Rate 58; Glucose Fasting 132 mg/dL (60-99); Potassium 3.8 mmol/L (3.3-5.1); Sodium 130 mmol/L (135-145)
[2022-06-04 07:31] LABS: Glucose, Whole Blood 110 mg/dL (60-115)
[2022-06-04 07:55] VITALS: BP 117/61; PULSE 99; RESP 17; TEMP 36.4; O2SAT 94
[2022-06-04] MEDS: Lactulose 20 GM/30 ML SOLUTION PO ×3 (08:17→14:57)
[2022-06-04] MEDS: Vitamin E (Dl,Tocopheryl Acet) 180 MG (400 UNIT) CAPSULE PO ×2 (08:17→20:21)
[2022-06-04] MEDS: Zinc Sulfate 220 MG CAPSULE PO (08:17)
[2022-06-04] MEDS: Spironolactone 25 MG TABLET 75 MG PO ×2 (08:18→17:24)
[2022-06-04] MEDS: Furosemide 40 MG/4 ML VIAL 80 MG IVPUSH ×2 (09:02→17:24)
--- NOTE | 2022-06-04 09:08 | P.PNIM_ITS ---
Subjective Subjective Date of Service: 06/04/22 Interval History: cc: abd distension interval history:improving after paracentesis Physical Exam Vital Signs: Vital Signs: Last Vital Signs Temp 97.6 F 06/04/22 07:55 Pulse 99 06/04/22 07:55 Resp 17 06/04/22 07:55 BP 117/61 06/04/22 07:55 Pulse Ox 94 06/04/22 07:55 O2 Del Method 06/04/22 07:55 O2 Flow Rate 2.0 06/04/22 07:55 BMI result Body Mass Index 55.4 Const: General: cooperative HEENT: Head: Yes normal to inspection Face and sinus: Yes normal facial exam Mouth: Normal oral and palatal mucosa present Teeth and gingiva: dentition normal Eyes: General: appearance normal, both eyes and all related structures Pupils: Equal, round and reactive pupils present Resp: Effort & Inspection: normal respiratory effort Cardio: Rate: regular rate Rhythm: regular rhythm GI: Other: some abdominal distention Palpation (GI): Soft to palpation and nontender : General: Yes no CVA tenderness Back/Spine/Pelvis: Back: no CVA tenderness Skin: Other: blisters left shoulder abrasion right dorsum foot Neuro: General: moves all extremities Cranial nerves: Yes Equal, round and reactive pupils present Extrem: General: Yes normal to inspection Psych: Appearance: grossly normal Objective Data Active Medications Acetaminophen (Acetaminophen 325 Mg Tablet) 650 mg PO Q6H PRN PRN Reason: Pain, Mild (Pain Scale 1-3) Last Admin: 06/03/22 17:21 Dose: 650 mg Documented By: VICENTA Albuterol Sulfate (Albuterol Sulfate 90 Mcg 8 Gm Inhaler) 2 puff INHALE Q6H PRN PRN Reason: Wheezing Last Admin: 06/02/22 11:09 Dose: 2 puff Documented By: ANJALI Albuterol/Ipratropium (Albuterol/Iprat 2.5/0.5mg 3 Ml Ampul.Neb) 3 ml INHALE QID PRN PRN Reason: dyspnea Last Admin: 06/03/22 11:57 Dose: 3 ml Documented By: VICENTA Calcium Carbonate (Calcium Carbonate 750 Mg Tab.Chew) 750 mg PO Q4H PRN PRN Reason: Heartburn Last Admin: 06/03/22 12:23 Dose: 750 mg Documented By: VICENTA Docusate Sodium (Docusate Sodium 100 Mg Capsule) 100 mg PO DAILY PRN PRN Reason: Constipation Last Admin: 06/03/22 17:21 Dose: 100 mg Documented By: VICENTA Docusate Sodium (Docusate Sodium 100 Mg Capsule) 100 mg PO BID PRN PRN Reason: constipation Furosemide (Furosemide 40 Mg/4 Ml Vial) 80 mg IVPUSH BID@0900,1800 [facility]; Protocol Last Admin: 06/04/22 09:02 Dose: 80 mg Documented By: CARMEN Gabapentin (Gabapentin 300 Mg Capsule) 300 mg PO BEDTIME [facility] Last Admin: 06/03/22 21:45 Dose: 300 mg Documented By: SUZIE Cefazolin Sodium/Dextrose (Ancef) 2 gm in 50 mls @ 100 mls/hr IV Q8H [facility] Last Infusion: 06/04/22 03:24 Dose: 0 mls/hr Documented By: SUZIE Insulin Glargine (Insulin Glargine,Hum.Rec.Anlog 100 Unit/Ml 10 Ml Vial) 64 unit SUBCUT BEDTIME [facility] Last Admin: 06/03/22 21:44 Dose: 64 unit Documented By: SUZIE Insulin Human Lispro (Insulin Lispro 100 Unit/Ml 3 Ml Vial) 0 unit SUBCUT QIDACHS [facility]; Protocol Last Admin: 06/04/22 07:31 Dose: Not Given Documented By: CARMEN Non-Admin Reason: poc oor Lactulose (Lactulose 20 Gm/30 Ml Solution) 20 gm PO DAILY [facility] Last Admin: 06/04/22 08:17 Dose: 20 gm Documented By: SUZIE Lactulose (Lactulose 20 Gm/30 Ml Solution) 20 gm PO DAILY PRN PRN Reason: Constipation Levothyroxine Sodium (Levothyroxine Sodium 50 Mcg Tablet) 50 mcg PO DAILY@0600 [facility] Last Admin: 06/04/22 05:33 Dose: 50 mcg Documented By: SUZIE Lisinopril (Lisinopril 2.5 Mg Tablet) 2.5 mg PO DAILY [facility]; Protocol Last Admin: 06/01/22 08:59 Dose: 2.5 mg Documented By: WILLIAM Loratadine (Loratadine 10 Mg Tablet) 10 mg PO DAILY PRN PRN Reason: Allergic Symptoms Pt Own (Flovent (220mcg 2 Inhalation)) 2 inhalation PO RBID [facility] Last Admin: 06/04/22 03:23 Dose: Not Given Documented By: SUZIE Non-Admin Reason: respiratory Omeprazole (Omeprazole 40 Mg Capsule.Dr) 40 mg PO DAILY@0630 [facility] Last Admin: 06/04/22 05:33 Dose: 40 mg Documented By: SUZIE Ondansetron HCl (Ondansetron Hcl 4 Mg/2 Ml Vial) 4 mg IVPUSH Q8H PRN PRN Reason: Nausea and Vomiting Last Admin: 06/01/22 08:58 Dose: 4 mg Documented By: WILLIAM Oxycodone HCl (Oxycodone Hcl Immed Release 5 Mg Tablet) 2.5 mg PO Q6H PRN PRN Reason: Pain, Moderate (Pain Scale 4-6 Last Admin: 06/04/22 09:01 Dose: 2.5 mg Documented By: CARMEN Senna (Sennosides 8.6 Mg Tablet) 8.6 mg PO DAILY PRN PRN Reason: Constipation Sodium Chloride (0.9 % Sodium Chloride Flush 3 Ml Syringe) 3 ml IVFLUSH QSHIFT [facility] Last Admin: 06/04/22 07:30 Dose: Not Given Documented By: CARMEN Non-Amado Reason: See Note Spironolactone (Spironolactone 25 Mg Tablet) 75 mg PO BID@0900,1800 [facility]; Protocol Last Admin: 06/04/22 08:18 Dose: 75 mg Documented By: SUZIE Vitamin E (Vitamin E (Dl,Tocopheryl Acet) 180 Mg (400 Unit) Capsule) 180 mg PO BID [facility] Last Admin: 06/04/22 08:17 Dose: 180 mg Documented By: SUZIE Zinc Sulfate (Zinc Sulfate 220 Mg Capsule) 220 mg PO DAILY [facility] Last Admin: 06/04/22 08:17 Dose: 220 mg Documented By: SUZIE Labs 06/04/22 05:08 06/04/22 05:08 Labs: Laboratory Results - last 24 hr 06/02/22 06/03/22 06/03/22 09:35 09:45 11:19 MCV MCH MCHC RDW Plt Count MPV Absolute Nucleated RBC Nucleated RBC % (auto) Anion Gap Estim Creat Clear Calc Estimated GFR POC Glucose 121 H Fasting Glucose Calcium Peritoneal Tot Protein 1.0 Peritoneal LDH 52 Peritoneal Glucose 134 Vancomycin Trough 19.6 06/03/22 06/03/22 06/04/22 16:28 21:28 05:08 MCV 94.3 MCH 31.8 MCHC 33.7 RDW 17.0 H Plt Count 28 L MPV 12.4 H Absolute Nucleated RBC 0.000 Nucleated RBC % (auto) 0.0 Anion Gap Estim Creat Clear Calc Estimated GFR POC Glucose 150 H 162 H Fasting Glucose Calcium Peritoneal Tot Protein Peritoneal LDH Peritoneal Glucose Vancomycin Trough 06/04/22 06/04/22 05:08 07:09 MCV MCH MCHC RDW Plt Count MPV Absolute Nucleated RBC Nucleated RBC % (auto) Anion Gap 12 Estim Creat Clear Calc 94.9 Estimated GFR 58 POC Glucose 110 Fasting Glucose 132 H Calcium 7.7 L Peritoneal Tot Protein Peritoneal LDH Peritoneal Glucose Vancomycin Trough Microbiology Microbiology Results: Microbiology 06/02/22 09:35 Gram Stain - Final Abdominal Fluid Routine Culture - Final No growth after 2 days Anaerobic Culture - Preliminary No growth to date. 06/01/22 00:24 Blood Culture - Final Blood - Venous Staphylococcus aureus 05/31/22 07:06 Blood Culture - Final Blood - Venous Staphylococcus aureus 05/31/22 07:06 Blood Culture - Final Blood - Venous Staphylococcus aureus Assessment and Plan (1) Coagulopathy: Status: Acute (2) Thrombocytopenia: Status: Acute (3) Pneumonia: Status: Acute (4) Ascites: Status: Acute (5) Positive blood culture: Status: Acute Plan 46F PMH SERVIN cirrhosis, pcos, DM, HTN, morbid obesity, presented with painfulc ascites, found to have bacteremia MSSA bacteremia possibly from cellulitis follow up repeat 06/04/22 ancef 4 weeks then levaquin 500 3 times weekly ID appreciated echo with no vegetation acute hypoxic respiratory failure cxr with atelectasis, wean o2 as tolerated SERVIN cirrhosis with painful ascites, thrombcytopenia s/p paracentesis 7.5L 06/02/22 negative for sbp continue lasix, aldactone acute on chronic hyponatremia Likely hypervolemic hyponatremia from cirrhosis fluid restrict Follow BMP type 2 diabetes SSI, Lantus Diabetic diet morbid obesity weight loss recommended hypothyroidism levothyroxine HTN lisinopril, aldactone DVT ppx: SCDs - thrombocytopenia reason for continued hospitalization: bacteremia Time Spent With Patient Time: Total time managing care of this patient today ____ minutes. Quality Stroke Does the patient have a stroke diagnosis?: No VTE Prior VTE?: No VTE Risk Level:: Medical - moderate - high VTE Device Contraindication: N/A - Device Ordered VTE Drug Contraindication: Treatment Not Indicated
[2022-06-04] MEDS: ondansetron HCL 4 MG/2 ML VIAL IVPUSH (10:20)
[2022-06-04] MEDS: Sennosides 8.6 MG TABLET PO (10:43)
[2022-06-04] MEDS: Docusate Sodium 100 MG CAPSULE PO (10:45)
--- NOTE | 2022-06-04 10:58 | PM.PNNEP ---
Subjective Subjective Date of Service: 06/04/22 Interval history: seen and examined denies CP/SOB/N/V/D Physical Exam Vital Signs: Vital Signs: Last Vital Signs Temp 97.6 F 06/04/22 07:55 Pulse 99 06/04/22 07:55 Resp 17 06/04/22 07:55 BP 117/61 06/04/22 07:55 Pulse Ox 94 06/04/22 07:55 O2 Del Method 06/04/22 07:55 O2 Flow Rate 2.0 06/04/22 07:55 BMI result Body Mass Index 55.4 Const: General: no acute distress HEENT: Head: Yes normocephalic and Yes atraumatic Neck: Neck: Yes supple Resp: Auscultation: diminished lung sounds Cardio: Heart sounds: S1 normal heart sound present and S2 normal heart sound present GI: Palpation (GI): Soft to palpation and nontender Extrem: General: Yes pedal edema Objective Data Labs 06/04/22 05:08 06/04/22 05:08 Labs: Laboratory Results - last 24 hr 06/03/22 06/03/22 06/03/22 11:19 16:28 21:28 WBC RBC Hgb Hct MCV MCH MCHC RDW Plt Count MPV Absolute Nucleated RBC Nucleated RBC % (auto) Sodium Potassium Chloride Carbon Dioxide Anion Gap BUN Creatinine Estim Creat Clear Calc Estimated GFR POC Glucose 121 H 150 H 162 H Fasting Glucose Calcium 06/04/22 06/04/22 06/04/22 05:08 05:08 07:09 WBC 6.9 RBC 2.99 L Hgb 9.5 L Hct 28.2 L MCV 94.3 MCH 31.8 MCHC 33.7 RDW 17.0 H Plt Count 28 L MPV 12.4 H Absolute Nucleated RBC 0.000 Nucleated RBC % (auto) 0.0 Sodium 130 L Potassium 3.8 Chloride 93 L Carbon Dioxide 29 Anion Gap 12 BUN 18 H Creatinine 1.03 Estim Creat Clear Calc 94.9 Estimated GFR 58 POC Glucose 110 Fasting Glucose 132 H Calcium 7.7 L Microbiology Microbiology Results: Microbiology 06/02/22 09:35 Abdominal Fluid Gram Stain - Final 06/02/22 09:35 Abdominal Fluid Routine Culture - Final No growth after 2 days 06/02/22 09:35 Abdominal Fluid Anaerobic Culture - Preliminary No growth to date. 06/01/22 00:24 Blood - Venous Blood Culture - Final Staphylococcus aureus 05/31/22 07:06 Blood - Venous Blood Culture - Final Staphylococcus aureus 05/31/22 07:06 Blood - Venous Blood Culture - Final Staphylococcus aureus 06/01/22 00:24 Blood - Venous Blood Culture - Preliminary No growth after 48 hours. Procedures Date of Service Date of Service: 06/04/22 Assessment & Plan Assessment and plan (1) Hyponatremia: Status: Acute (2) 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: Status: Acute Plan Sna better hypervolemic hyponatremia in the setting of liver cirrhosis c/w with hepatic physiology REC continue combination loop diuretics and potassium sparing agent continue fluid restriction follow kidney function and electrolytes Time Spent With Patient Time: Total time managing care of this patient today ____ minutes. Progress Note: Quality Stroke Does the patient have a stroke diagnosis?: No
[2022-06-04 11:30] LABS: Glucose, Whole Blood 120 mg/dL (60-115)
--- NOTE | 2022-06-04 14:34 | MHC.CM.PN ---
CM MET W/PT VIA [employer] M[employer]DER TO DISCUSS DISPO, PT AWARE SHE NEEDS G[employer] APPLIANCE [employer]CH[employer]IC IV ABX AT HOME AND FEELS SHE COULD DO THEM HERSELF AND HER COULD ASSIST [place] [facility] [phone] AND WOULD BE AVAILABLE TO COME IN FOR A TEACH, PT REPRTS SHE DOES NOT WANT STR, PT AGREEABLE TO [facility] AND CM CONTACTED LIAISON VIA PHONE. CM WILL CONT TO FOLLOW D/C NEEDS.
[2022-06-04 15:12] VITALS: BP 109/55; PULSE 100; RESP 18; TEMP 36.3; O2SAT 93
--- NOTE | 2022-06-04 16:27 | PC.NURSE ---
Pt stated she does not want the enema at this time. Stated she will receive it at a later time. Will reassess within an hour
[2022-06-04 16:28] LABS: Glucose, Whole Blood 134 mg/dL (60-115)
[2022-06-04] MEDS: Mineral OiL enema 133 ML ENEMA PR (17:34)
[2022-06-04 19:35] VITALS: BP 125/59; PULSE 86; RESP 20; TEMP 36.9; O2SAT 94
[2022-06-04 19:39] VITALS: BP 115/56; PULSE 104; RESP 18; TEMP 36.5; O2SAT 96
[2022-06-04] MEDS: Gabapentin 300 MG CAPSULE PO (20:21)
[2022-06-04] MEDS: Insulin Glargine,Hum.rec.anlog 100 UNIT/ML 10 ML VIAL 64 UNIT SUBCUT (20:27)
[2022-06-04] MEDS: Insulin Lispro 100 UNIT/ML 3 ML VIAL SUBCUT (20:27)
[2022-06-04] MEDS: Acetaminophen 325 MG TABLET 650 MG PO (20:27)
[2022-06-04] MEDS: 0.9 % Sodium Chloride Flush 3 ML SYRINGE IVFLUSH (20:28)
[2022-06-04 20:33] LABS: Glucose, Whole Blood 170 mg/dL (60-115)
[2022-06-04 20:57] VITALS: PULSE 123; O2SAT 94
[2022-06-05 03:55] VITALS: BP 94/53; PULSE 104; RESP 18; TEMP 36.4; O2SAT 93
[2022-06-05] MEDS: ceFAZolin Sodium/Dextrose,Iso 2 GM/50 ML PIGGYBACK IV ×3 (04:12→20:11)
[2022-06-05] MEDS: oxyCODONE HCl Immed Release 5 MG TABLET 2.5 MG PO ×2 (04:17→16:59)
[2022-06-05] MEDS: Omeprazole 40 MG CAPSULE.DR PO (04:17)
[2022-06-05] MEDS: Levothyroxine Sodium 50 MCG TABLET PO (04:17)
[2022-06-05 06:22] LABS: Hematocrit 28.4 % (37.0-47.0); Hemoglobin 9.6 g/dl (12.0-16.0); Mean Corpuscular HGB Conc 33.8 g/dl (31.0-35.0); Mean Corpuscular Hemoglobin 32.3 pg (27.0-33.0); Mean Corpuscular Volume 95.6 fL (80.0-98.0); Mean Platelet Volume 12.7 fL (9.4-12.3); Red Blood Count 2.97 X10*6/uL (4.20-5.50); Red Cell Distribution Width 16.8 % (11.0-16.0); White Blood Count 7.1 X10*3/uL (4.8-10.8)
[2022-06-05 06:26] LABS: Platelet Count 38 X10*3/uL (160-400)
[2022-06-05 06:43] LABS: Anion Gap 11 (12-20); Blood Urea Nitrogen 16 mg/dL (9-16); Calcium 7.9 mg/dL (8.4-10.2); Carbon Dioxide 32 mmol/L (22-29); Chloride 93 mmol/L (96-108); Creatinine Clr Calc Pharmacy 95.9; Estimated Glomerular Filt Rate 58; Glucose Fasting 87 mg/dL (60-99); Potassium 3.9 mmol/L (3.3-5.1); Sodium 132 mmol/L (135-145)
[2022-06-05 07:10] VITALS: BP 100/56; PULSE 92; RESP 18; TEMP 36.7; O2SAT 94
[2022-06-05 07:43] LABS: Glucose, Whole Blood 89 mg/dL (60-115)
[2022-06-05 07:47] VITALS: PULSE 100; RESP 16
--- NOTE | 2022-06-05 08:32 | P.PNIM_ITS ---
Subjective Subjective Date of Service: 06/05/22 Interval History: cc: abd distension interval history:improving after paracentesis Physical Exam Vital Signs: Vital Signs: Last Vital Signs Temp 98.1 F 06/05/22 07:10 Pulse 100 06/05/22 07:47 Resp 16 06/05/22 07:47 BP 100/56 L 06/05/22 07:10 Pulse Ox 94 06/05/22 07:10 O2 Del Method 06/05/22 07:10 O2 Flow Rate 2 06/05/22 07:10 BMI result Body Mass Index 55.4 Const: General: no acute distress HEENT: Head: Yes normocephalic and Yes atraumatic Neck: Neck: Yes supple Resp: Auscultation: diminished lung sounds Cardio: Heart sounds: S1 normal heart sound present and S2 normal heart sound present GI: Palpation (GI): Soft to palpation and nontender Extrem: General: Yes pedal edema Objective Data Active Medications Acetaminophen (Acetaminophen 325 Mg Tablet) 650 mg PO Q6H PRN PRN Reason: Pain, Mild (Pain Scale 1-3) Last Admin: 06/04/22 20:27 Dose: 650 mg Documented By: BAKARI Albuterol Sulfate (Albuterol Sulfate 90 Mcg 8 Gm Inhaler) 2 puff INHALE Q6H PRN PRN Reason: Wheezing Last Admin: 06/02/22 11:09 Dose: 2 puff Documented By: ANJALI Calcium Carbonate (Calcium Carbonate 750 Mg Tab.Chew) 750 mg PO Q4H PRN PRN Reason: Heartburn Last Admin: 06/03/22 12:23 Dose: 750 mg Documented By: VICENTA Albuterol Sulfate 2.5 mg/ (Ipratropium [place] 0.5 mg) 0 mg INHALE QID PRN PRN Reason: Dyspnea Docusate Sodium (Docusate Sodium 100 Mg Capsule) 100 mg PO DAILY PRN PRN Reason: Constipation Last Admin: 06/03/22 17:21 Dose: 100 mg Documented By: VICENTA Docusate Sodium (Docusate Sodium 100 Mg Capsule) 100 mg PO BID PRN PRN Reason: constipation Last Admin: 06/04/22 10:45 Dose: 100 mg Documented By: SUZIE Furosemide (Furosemide 40 Mg Tablet) 40 mg PO BID@0900,1800 [facility]; Protocol Gabapentin (Gabapentin 300 Mg Capsule) 300 mg PO BEDTIME [facility] Last Admin: 06/04/22 20:21 Dose: 300 mg Documented By: BAKARI Cefazolin Sodium/Dextrose (Ancef) 2 gm in 50 mls @ 100 mls/hr IV Q8H [facility] Last Infusion: 06/05/22 05:30 Dose: 0 mls/hr Documented By: BAKARI Insulin Glargine (Insulin Glargine,Hum.Rec.Anlog 100 Unit/Ml 10 Ml Vial) 64 unit SUBCUT BEDTIME [facility] Last Admin: 06/04/22 20:27 Dose: 64 unit Documented By: BAKARI Insulin Human Lispro (Insulin Lispro 100 Unit/Ml 3 Ml Vial) 0 unit SUBCUT QIDACHS [facility]; Protocol Last Admin: 06/05/22 07:42 Dose: Not Given Documented By: CARMEN Non-Admin Reason: poc oor Lactulose (Lactulose 20 Gm/30 Ml Solution) 20 gm PO DAILY PRN PRN Reason: Constipation Last Admin: 06/04/22 10:45 Dose: 20 gm Documented By: SUZIE Lactulose (Lactulose 20 Gm/30 Ml Solution) 20 gm PO TID [facility] Last Admin: 06/05/22 07:22 Dose: Not Given Documented By: CARMEN Non-Admin Reason: Patient Refused Levothyroxine Sodium (Levothyroxine Sodium 50 Mcg Tablet) 50 mcg PO DAILY@0600 [facility] Last Admin: 06/05/22 04:17 Dose: 50 mcg Documented By: BAKARI Lisinopril (Lisinopril 2.5 Mg Tablet) 2.5 mg PO DAILY [facility]; Protocol Last Admin: 06/01/22 08:59 Dose: 2.5 mg Documented By: WILLIAM Loratadine (Loratadine 10 Mg Tablet) 10 mg PO DAILY PRN PRN Reason: Allergic Symptoms Pt Own (Flovent (220mcg 2 Inhalation)) 2 inhalation PO RBID [facility] Last Admin: 06/05/22 07:43 Dose: 2 inhalation Documented By: SARAI Omeprazole (Omeprazole 40 Mg Capsule.Dr) 40 mg PO DAILY@0630 [facility] Last Admin: 06/05/22 04:17 Dose: 40 mg Documented By: BAKARI Ondansetron HCl (Ondansetron Hcl 4 Mg/2 Ml Vial) 4 mg IVPUSH Q8H PRN PRN Reason: Nausea and Vomiting Last Admin: 06/04/22 10:20 Dose: 4 mg Documented By: CARMEN Oxycodone HCl (Oxycodone Hcl Immed Release 5 Mg Tablet) 2.5 mg PO Q6H PRN PRN Reason: Pain, Moderate (Pain Scale 4-6 Last Admin: 06/05/22 04:17 Dose: 2.5 mg Documented By: BAKARI Senna (Sennosides 8.6 Mg Tablet) 8.6 mg PO DAILY PRN PRN Reason: Constipation Last Admin: 06/04/22 10:43 Dose: 8.6 mg Documented By: SUZIE Sodium Chloride (0.9 % Sodium Chloride Flush 3 Ml Syringe) 3 ml IVFLUSH QSHIFT [facility] Last Admin: 06/05/22 07:22 Dose: Not Given Documented By: CARMEN Non-Admin Reason: See Note Spironolactone (Spironolactone 25 Mg Tablet) 75 mg PO BID@0900,1800 [facility]; Pro tocol Last Admin: 06/04/22 17:24 Dose: 75 mg Documented By: CARMEN Vitamin E (Vitamin E (Dl,Tocopheryl Acet) 180 Mg (400 Unit) Capsule) 180 mg PO BID [facility] Last Admin: 06/04/22 20:21 Dose: 180 mg Documented By: BAKARI Zinc Sulfate (Zinc Sulfate 220 Mg Capsule) 220 mg PO DAILY [facility] Last Admin: 06/04/22 08:17 Dose: 220 mg Documented By: SUZIE Labs 06/05/22 05:16 06/05/22 05:16 Labs: Laboratory Results - last 24 hr 06/04/22 06/04/22 06/04/22 11:06 16:24 20:22 MCV MCH MCHC RDW Plt Count MPV Absolute Nucleated RBC Nucleated RBC % (auto) Anion Gap Estim Creat Clear Calc Estimated GFR POC Glucose 120 H 134 H 170 H Fasting Glucose Calcium 06/05/22 06/05/22 06/05/22 05:16 05:16 07:08 MCV 95.6 MCH 32.3 MCHC 33.8 RDW 16.8 H Plt Count 38 L D MPV 12.7 H Absolute Nucleated RBC 0.000 Nucleated RBC % (auto) 0.0 Anion Gap 11 L Estim Creat Clear Calc 95.9 Estimated GFR 58 POC Glucose 89 Fasting Glucose 87 Calcium 7.9 L Microbiology Microbiology Results: Microbiology 06/04/22 05:08 Blood Culture - Preliminary Blood - Venous No growth after 24 hours. 06/04/22 05:08 Blood Culture - Preliminary Blood - Venous No growth after 24 hours. 06/02/22 09:35 Gram Stain - Final Abdominal Fluid Routine Culture - Final No growth after 2 days Anaerobic Culture - Preliminary No growth to date. Assessment and Plan (1) Coagulopathy: Status: Acute (2) Thrombocytopenia: Status: Acute (3) Pneumonia: Status: Acute (4) Ascites: Status: Acute (5) Positive blood culture: Status: Acute Plan 46F PMH SERVIN cirrhosis, pcos, DM, HTN, morbid obesity, presented with painfulc ascites, found to have bacteremia MSSA bacteremia possibly from cellulitis follow up repeat 06/04/22 - no growth to date ancef 4 weeks then levaquin 500 3 times weekly ID appreciated echo with no vegetation acute hypoxic respiratory failure cxr with atelectasis, wean o2 as tolerated SERVIN cirrhosis with painful ascites, thrombcytopenia s/p paracentesis 7.5L 06/02/22 negative for sbp continue lasix - will change to po, aldactone acute on chronic hyponatremia Likely hypervolemic hyponatremia from cirrhosis fluid restrict Follow BMP improving type 2 diabetes SSI, Lantus Diabetic diet morbid obesity weight loss recommended hypothyroidism levothyroxine HTN lisinopril, aldactone DVT ppx: SCDs - thrombocytopenia reason for continued hospitalization: bacteremia Time Spent With Patient Time: Total time managing care of this patient today ____ minutes. Quality Stroke Does the patient have a stroke diagnosis?: No VTE Prior VTE?: No VTE Risk Level:: Medical - moderate - high VTE Device Contraindication: N/A - Device Ordered VTE Drug Contraindication: Treatment Not Indicated
[2022-06-05] MEDS: Vitamin E (Dl,Tocopheryl Acet) 180 MG (400 UNIT) CAPSULE PO ×2 (09:06→20:11)
[2022-06-05] MEDS: Zinc Sulfate 220 MG CAPSULE PO (09:06)
[2022-06-05] MEDS: Furosemide 40 MG TABLET PO ×2 (09:06→16:57)
[2022-06-05] MEDS: Spironolactone 25 MG TABLET 75 MG PO ×2 (09:06→16:57)
--- NOTE | 2022-06-05 10:59 | PM.PNNEP ---
Subjective Subjective Date of Service: 06/05/22 Interval history: seen and examined sitting out of bed Physical Exam Vital Signs: Vital Signs: Last Vital Signs Temp 98.1 F 06/05/22 07:10 Pulse 100 06/05/22 07:47 Resp 16 06/05/22 07:47 BP 100/56 L 06/05/22 07:10 Pulse Ox 94 06/05/22 07:10 O2 Del Method 06/05/22 07:10 O2 Flow Rate 2 06/05/22 07:10 BMI result Body Mass Index 55.4 Const: General: no acute distress HEENT: Head: Yes normocephalic and Yes atraumatic Neck: Neck: Yes supple Resp: Auscultation: diminished lung sounds Cardio: Heart sounds: S1 normal heart sound present and S2 normal heart sound present GI: Palpation (GI): Soft to palpation and nontender Extrem: General: Yes pedal edema Objective Data Labs 06/05/22 05:16 06/05/22 05:16 Labs: Laboratory Results - last 24 hr 06/04/22 06/04/22 06/04/22 11:06 16:24 20:22 WBC RBC Hgb Hct MCV MCH MCHC RDW Plt Count MPV Absolute Nucleated RBC Nucleated RBC % (auto) Sodium Potassium Chloride Carbon Dioxide Anion Gap BUN Creatinine Estim Creat Clear Calc Estimated GFR POC Glucose 120 H 134 H 170 H Fasting Glucose Calcium 06/05/22 06/05/22 06/05/22 05:16 05:16 07:08 WBC 7.1 RBC 2.97 L Hgb 9.6 L Hct 28.4 L MCV 95.6 MCH 32.3 MCHC 33.8 RDW 16.8 H Plt Count 38 L D MPV 12.7 H Absolute Nucleated RBC 0.000 Nucleated RBC % (auto) 0.0 Sodium 132 L Potassium 3.9 Chloride 93 L Carbon Dioxide 32 H Anion Gap 11 L BUN 16 Creatinine 1.02 Estim Creat Clear Calc 95.9 Estimated GFR 58 POC Glucose 89 Fasting Glucose 87 Calcium 7.9 L Microbiology Microbiology Results: Microbiology 06/02/22 09:35 Abdominal Fluid Gram Stain - Final 06/02/22 09:35 Abdominal Fluid Routine Culture - Final No growth after 2 days 06/02/22 09:35 Abdominal Fluid Anaerobic Culture - Preliminary No growth to date. 06/04/22 05:08 Blood - Venous Blood Culture - Preliminary No growth after 24 hours. 06/04/22 05:08 Blood - Venous Blood Culture - Preliminary No growth after 24 hours. 06/01/22 00:24 Blood - Venous Blood Culture - Final Staphylococcus aureus 05/31/22 07:06 Blood - Venous Blood Culture - Final Staphylococcus aureus 05/31/22 07:06 Blood - Venous Blood Culture - Final Staphylococcus aureus 06/01/22 00:24 Blood - Venous Blood Culture - Preliminary No growth after 48 hours. Procedures Date of Service Date of Service: 06/05/22 Assessment & Plan Assessment and plan (1) Hyponatremia: Status: Acute (2) 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: Status: Acute Plan Sna continues to improve hypervolemic hyponatremia in the setting of liver cirrhosis c/w with hepatic physiology REC continue loop diuretics and potassium sparing agent fluid restriction follow kidney function and electrolytes Time Spent With Patient Time: Total time managing care of this patient today ____ minutes. Progress Note: Quality Stroke Does the patient have a stroke diagnosis?: No
[2022-06-05 11:40] LABS: Glucose, Whole Blood 109 mg/dL (60-115)
--- NOTE | 2022-06-05 11:48 | MHC.CM.PN ---
EMR REVIEWED, FINAL BC'S SHOULD BE BACK LATER TODAY, SINCE PT WANTS TO D/C HOME W/ABX LIAISON FROM [facility] WILL CONTACT PT'S [place] [employer] [facility] [employer] FOR TEACH EARLY AFTERNOON TODAY. CM WILL WORK ON IV ABX ORDER FORM AND CONT TP FOLLOW W/ANTIC D/C TOMORROW 06/06 VS SAT 06/07 PENDING FINAL BC'S AND PICC LINE, CM WILL CONT TO FOLLOW.
[2022-06-05 15:16] VITALS: BP 100/53; PULSE 102; RESP 18; TEMP 36.3; O2SAT 93
--- NOTE | 2022-06-05 15:27 | MHC.CM.PN ---
EMR REVIEWED, LIAISON FROM [facility] IN FOR TEACH W/PT AND AND THEY DID VREY WELL, NO CONCERNS REGARDING ABILITY TO COMPLETE IV ABX AT HOME, ANTIC D/C SAT 06/07 IF PICC LINE PLACED TOMORROW 06/06, IF LINE NOT PLACED PT WILL REMAIN INPT OVER W/E CM WILL CONT TO FOLLOW D/C NEEDS.
[2022-06-05 16:36] LABS: Glucose, Whole Blood 153 mg/dL (60-115)
[2022-06-05] MEDS: Insulin Lispro 100 UNIT/ML 3 ML VIAL SUBCUT ×2 (16:57→21:24)
[2022-06-05 19:35] VITALS: BP 104/57; PULSE 107; RESP 18; TEMP 36.4; O2SAT 99
[2022-06-05] MEDS: Gabapentin 300 MG CAPSULE PO (20:11)
[2022-06-05] MEDS: 0.9 % Sodium Chloride Flush 3 ML SYRINGE IVFLUSH (20:12)
[2022-06-05 20:49] LABS: Glucose, Whole Blood 189 mg/dL (60-115)
[2022-06-05] MEDS: Insulin Glargine,Hum.rec.anlog 100 UNIT/ML 10 ML VIAL 64 UNIT SUBCUT (21:24)
[2022-06-06] VITALS (7 sets, daily range): BP systolic 103–112; BP diastolic 55–61; PULSE 84–103; RESP 16–96; TEMP 36–37; O2SAT 93–98
[2022-06-06] MEDS: oxyCODONE HCl Immed Release 5 MG TABLET 2.5 MG PO ×3 (00:15→18:23)
[2022-06-06] MEDS: ceFAZolin Sodium/Dextrose,Iso 2 GM/50 ML PIGGYBACK IV ×3 (03:14→18:13)
[2022-06-06] MEDS: Levothyroxine Sodium 50 MCG TABLET PO (05:56)
[2022-06-06] MEDS: Omeprazole 40 MG CAPSULE.DR PO (05:56)
[2022-06-06 06:15] LABS: Hematocrit 27.3 % (37.0-47.0); Hemoglobin 9.1 g/dl (12.0-16.0); Mean Corpuscular HGB Conc 33.3 g/dl (31.0-35.0); Mean Corpuscular Hemoglobin 31.7 pg (27.0-33.0); Mean Corpuscular Volume 95.1 fL (80.0-98.0); Mean Platelet Volume 11.1 fL (9.4-12.3); Red Blood Count 2.87 X10*6/uL (4.20-5.50); Red Cell Distribution Width 16.8 % (11.0-16.0); White Blood Count 6.8 X10*3/uL (4.8-10.8)
[2022-06-06 06:16] LABS: Platelet Count 38 X10*3/uL (160-400)
[2022-06-06 07:36] LABS: Anion Gap 15 (12-20); Blood Urea Nitrogen 16 mg/dL (9-16); Calcium 7.7 mg/dL (8.4-10.2); Carbon Dioxide 29 mmol/L (22-29); Chloride 91 mmol/L (96-108); Creatinine Clr Calc Pharmacy 94.1; Estimated Glomerular Filt Rate 57; Glucose Fasting 192 mg/dL (60-99); Potassium 3.8 mmol/L (3.3-5.1); Sodium 131 mmol/L (135-145)
[2022-06-06 07:44] LABS: Glucose, Whole Blood 204 mg/dL (60-115)
[2022-06-06] MEDS: Zinc Sulfate 220 MG CAPSULE PO (08:02)
[2022-06-06] MEDS: Furosemide 40 MG TABLET PO ×2 (08:02→18:13)
[2022-06-06] MEDS: Spironolactone 25 MG TABLET 75 MG PO ×2 (08:02→18:13)
[2022-06-06] MEDS: 0.9 % Sodium Chloride Flush 3 ML SYRINGE IVFLUSH ×3 (08:03→21:01)
[2022-06-06] MEDS: Vitamin E (Dl,Tocopheryl Acet) 180 MG (400 UNIT) CAPSULE PO ×2 (08:03→21:00)
[2022-06-06] MEDS: Insulin Lispro 100 UNIT/ML 3 ML VIAL SUBCUT ×2 (08:03→21:01)
--- NOTE | 2022-06-06 08:30 | P.PNIM_ITS ---
Subjective Subjective Date of Service: 06/06/22 Interval History: cc: abd distension, hyponatremia interval history: i feel heavy , no pain Physical Exam Vital Signs: Vital Signs: Last Vital Signs Temp 96.8 F 06/06/22 07:28 Pulse 103 H 06/06/22 07:28 Resp 18 06/06/22 07:28 BP 103/55 L 06/06/22 07:28 Pulse Ox 98 06/06/22 07:28 O2 Del Method 06/06/22 07:28 O2 Flow Rate 2 06/06/22 07:28 BMI result Body Mass Index 55.4 Const: Other: General: AO X 3, no acute distress Resp: CTA bilateral CVS: S1,S2,RRR, 3+ pedal edema GI: +BS, NT, abd distention with fluid wave Skin: No rash Neuro: motor grossly intact Psych: appropriate affect Objective Data Active Medications Acetaminophen (Acetaminophen 325 Mg Tablet) 650 mg PO Q6H PRN PRN Reason: Pain, Mild (Pain Scale 1-3) Last Admin: 06/04/22 20:27 Dose: 650 mg Documented By: BAKARI Albuterol Sulfate (Albuterol Sulfate 90 Mcg 8 Gm Inhaler) 2 puff INHALE Q6H PRN PRN Reason: Wheezing Last Admin: 06/02/22 11:09 Dose: 2 puff Documented By: ANJALI Calcium Carbonate (Calcium Carbonate 750 Mg Tab.Chew) 750 mg PO Q4H PRN PRN Reason: Heartburn Last Admin: 06/03/22 12:23 Dose: 750 mg Documented By: VICENTA Albuterol Sulfate 2.5 mg/ (Ipratropium [place] 0.5 mg) 0 mg INHALE QID PRN PRN Reason: Dyspnea Docusate Sodium (Docusate Sodium 100 Mg Capsule) 100 mg PO DAILY PRN PRN Reason: Constipation Last Admin: 06/03/22 17:21 Dose: 100 mg Documented By: VICENTA Docusate Sodium (Docusate Sodium 100 Mg Capsule) 100 mg PO BID PRN PRN Reason: constipation Last Admin: 06/04/22 10:45 Dose: 100 mg Documented By: SUZIE Furosemide (Furosemide 40 Mg Tablet) 40 mg PO BID@0900,1800 [facility]; Protocol Last Admin: 06/06/22 08:02 Dose: 40 mg Documented By: AARON Gabapentin (Gabapentin 300 Mg Capsule) 300 mg PO BEDTIME [facility] Last Admin: 06/05/22 20:11 Dose: 300 mg Documented By: SUZIE Cefazolin Sodium/Dextrose (Ancef) 2 gm in 50 mls @ 100 mls/hr IV Q8H [facility] Last Infusion: 06/06/22 03:51 Dose: 0 mls/hr Documented By: SUZIE Insulin Glargine (Insulin Glargine,Hum.Rec.Anlog 100 Unit/Ml 10 Ml Vial) 64 unit SUBCUT BEDTIME [facility] Last Admin: 06/05/22 21:24 Dose: 64 unit Documented By: SUZIE Insulin Human Lispro (Insulin Lispro 100 Unit/Ml 3 Ml Vial) 0 unit SUBCUT QIDACHS [facility]; Protocol Last Admin: 06/06/22 08:03 Dose: 4 unit Documented By: AARON Lactulose (Lactulose 20 Gm/30 Ml Solution) 20 gm PO DAILY PRN PRN Reason: Constipation Last Admin: 06/04/22 10:45 Dose: 20 gm Documented By: SUZIE Lactulose (Lactulose 20 Gm/30 Ml Solution) 20 gm PO TID [facility] Last Admin: 06/06/22 08:09 Dose: Not Given Documented By: AARON Non-Admin Reason: Patient Refused Levothyroxine Sodium (Levothyroxine Sodium 50 Mcg Tablet) 50 mcg PO DAILY@0600 [facility] Last Admin: 06/06/22 05:56 Dose: 50 mcg Documented By: SUZIE Lisinopril (Lisinopril 2.5 Mg Tablet) 2.5 mg PO DAILY [facility]; Protocol Last Admin: 06/01/22 08:59 Dose: 2.5 mg Documented By: WILLIAM Loratadine (Loratadine 10 Mg Tablet) 10 mg PO DAILY PRN PRN Reason: Allergic Symptoms Pt Own (Flovent (220mcg 2 Inhalation)) 2 inhalation PO RBID [facility] Last Admin: 06/06/22 03:51 Dose: Not Given Documented By: SUZIE Non-Admin Reason: respiratory Omeprazole (Omeprazole 40 Mg Antony.) 40 mg PO DAILY@0630 [facility] Last Admin: 06/06/22 05:56 Dose: 40 mg Documented By: SUZIE Ondansetron HCl (Ondansetron Hcl 4 Mg/2 Ml Vial) 4 mg IVPUSH Q8H PRN PRN Reason: Nausea and Vomiting Last Admin: 06/04/22 10:20 Dose: 4 mg Documented By: CARMEN Oxycodone HCl (Oxycodone Hcl Immed Release 5 Mg Tablet) 2.5 mg PO Q6H PRN PRN Reason: Pain, Moderate (Pain Scale 4-6 Last Admin: 06/06/22 05:59 Dose: 2.5 mg Documented By: SUZIE Senna (Sennosides 8.6 Mg Tablet) 8.6 mg PO DAILY PRN PRN Reason: Constipation Last Admin: 06/04/22 10:43 Dose: 8.6 mg Documented By: VERNONRACMARCO ANTONIO Sodium Chloride (0.9 % Sodium Chloride Flush 3 Ml Syringe) 3 ml IVFLUSH [facility] Last Admin: 06/06/22 08:03 Dose: 3 ml Documented By: AARON Spironolactone (Spironolactone 25 Mg Tablet) 75 mg PO BID@0900,1800 [facility]; Protocol Last Admin: 06/06/22 08:02 Dose: 75 mg Documented By: AARON Vitamin E (Vitamin E (Dl,Tocopheryl Acet) 180 Mg (400 Unit) Capsule) 180 mg PO BID [facility] Last Admin: 06/06/22 08:03 Dose: 180 mg Documented By: AARON Zinc Sulfate (Zinc Sulfate 220 Mg Capsule) 220 mg PO DAILY [facility] Last Admin: 06/06/22 08:02 Dose: 220 mg Documented By: AARON Labs 06/06/22 05:04 06/06/22 05:04 Labs: Laboratory Results - last 24 hr 06/05/22 06/05/22 06/05/22 11:21 16:28 20:39 MCV MCH MCHC RDW Plt Count MPV Absolute Nucleated RBC Nucleated RBC % (auto) Anion Gap Estim Creat Clear Calc Estimated GFR POC Glucose 109 153 H 189 H Fasting Glucose Calcium 06/06/22 06/06/22 06/06/22 05:04 05:04 07:26 MCV 95.1 MCH 31.7 MCHC 33.3 RDW 16.8 H Plt Count 38 L MPV 11.1 Absolute Nucleated RBC 0.000 Nucleated RBC % (auto) 0.0 Anion Gap 15 Estim Creat Clear Calc 94.1 Estimated GFR 57 POC Glucose 204 H Fasting Glucose 192 H Calcium 7.7 L Microbiology Microbiology Results: Microbiology 06/04/22 05:08 Blood Culture - Preliminary Blood - Venous No growth after 48 hours. 06/04/22 05:08 Blood Culture - Preliminary Blood - Venous No growth after 48 hours. 06/01/22 00:24 Blood Culture - Final Blood - Venous No growth after 5 days. 06/02/22 09:35 Gram Stain - Final Abdominal Fluid Routine Culture - Final No growth after 2 days Anaerobic Culture - Preliminary No growth to date. Assessment and Plan (1) Coagulopathy: Status: Acute (2) Thrombocytopenia: Status: Acute (3) Pneumonia: Status: Acute (4) Ascites: Status: Acute (5) Positive blood culture: Status: Acute Plan 46F PMH SERVIN cirrhosis, pcos, DM, HTN, morbid obesity, presented with painfulc ascites, found to have bacteremia MSSA bacteremia possibly from cellulitis follow up repeat 06/04/22 - no growth to date ancef 4 weeks then levaquin 500 3 times weekly ID appreciated echo with no vegetation request picc line acute hypoxic respiratory failure cxr with atelectasis, wean o2 as tolerated SERVIN cirrhosis with painful ascites, thrombcytopenia s/p paracentesis 7.5L 06/02/22 negative for sbp continue lasix , aldactone acute on chronic hyponatremia Likely hypervolemic hyponatremia from cirrhosis fluid restrict Follow BMP improving 131 today type 2 diabetes SSI, Lantus Diabetic diet morbid obesity weight loss advised hypothyroidism levothyroxine HTN lisinopril, aldactone DVT ppx: SCDs - thrombocytopenia reason for continued hospitalization: bacteremia needing IV abx Time Spent With Patient Time: Total time managing care of this patient today ____ minutes. Quality Stroke Does the patient have a stroke diagnosis?: No VTE Prior VTE?: No VTE Risk Level:: Medical - moderate - high VTE Device Contraindication: N/A - Device Ordered VTE Drug Contraindication: Treatment Not Indicated
[2022-06-06] MEDS: ondansetron HCL 4 MG/2 ML VIAL IVPUSH (09:24)
--- NOTE | 2022-06-06 09:51 | PM.PNNEP ---
Subjective Subjective Date of Service: 06/06/22 Interval history: seen and examined complains of abdominal distention Physical Exam Vital Signs: Vital Signs: Last Vital Signs Temp 96.8 F 06/06/22 07:28 Pulse 103 H 06/06/22 07:28 Resp 18 06/06/22 07:28 BP 103/55 L 06/06/22 07:28 Pulse Ox 98 06/06/22 07:28 O2 Del Method 06/06/22 07:28 O2 Flow Rate 2 06/06/22 07:28 BMI result Body Mass Index 55.4 Const: General: no acute distress HEENT: Head: Yes normocephalic and Yes atraumatic Neck: Neck: Yes supple Resp: Auscultation: diminished lung sounds Cardio: Heart sounds: S1 normal heart sound present and S2 normal heart sound present GI: Palpation (GI): Soft to palpation and nontender Extrem: General: Yes pedal edema Objective Data Labs 06/06/22 05:04 06/06/22 05:04 Labs: Laboratory Results - last 24 hr 06/05/22 06/05/22 06/05/22 11:21 16:28 20:39 WBC RBC Hgb Hct MCV MCH MCHC RDW Plt Count MPV Absolute Nucleated RBC Nucleated RBC % (auto) Sodium Potassium Chloride Carbon Dioxide Anion Gap BUN Creatinine Estim Creat Clear Calc Estimated GFR POC Glucose 109 153 H 189 H Fasting Glucose Calcium 06/06/22 06/06/22 06/06/22 05:04 05:04 07:26 WBC 6.8 RBC 2.87 L Hgb 9.1 L Hct 27.3 L MCV 95.1 MCH 31.7 MCHC 33.3 RDW 16.8 H Plt Count 38 L MPV 11.1 Absolute Nucleated RBC 0.000 Nucleated RBC % (auto) 0.0 Sodium 131 L Potassium 3.8 Chloride 91 L Carbon Dioxide 29 Anion Gap 15 BUN 16 Creatinine 1.04 Estim Creat Clear Calc 94.1 Estimated GFR 57 POC Glucose 204 H Fasting Glucose 192 H Calcium 7.7 L Microbiology Microbiology Results: Microbiology 06/04/22 05:08 Blood - Venous Blood Culture - Preliminary No growth after 48 hours. 06/04/22 05:08 Blood - Venous Blood Culture - Preliminary No growth after 48 hours. 06/01/22 00:24 Blood - Venous Blood Culture - Final No growth after 5 days. 06/02/22 09:35 Abdominal Fluid Gram Stain - Final 06/02/22 09:35 Abdominal Fluid Routine Culture - Final No growth after 2 days 06/02/22 09:35 Abdominal Fluid Anaerobic Culture - Preliminary No growth to date. 06/01/22 00:24 Blood - Venous Blood Culture - Final Staphylococcus aureus 05/31/22 07:06 Blood - Venous Blood Culture - Final Staphylococcus aureus 05/31/22 07:06 Blood - Venous Blood Culture - Final Staphylococcus aureus Procedures Date of Service Date of Service: 06/06/22 Assessment & Plan Assessment and plan (1) Hyponatremia: Status: Acute (2) 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: Status: Acute Plan Sna >130 hypervolemic hyponatremia in the setting of liver cirrhosis c/w with hepatic physiology REC continue combination loop diuretics and potassium sparing agent fluid restriction albumin with large volume paracentesis follow kidney function and electrolytes Time Spent With Patient Time: Total time managing care of this patient today ____ minutes. Progress Note: Quality Stroke Does the patient have a stroke diagnosis?: No
--- NOTE | 2022-06-06 10:33 | HO.MIDLINE_ITS ---
Midline Insertion MIDLINE INSERTION Diagnosis: [right foot wound infection] Indication: need for terminologist antibiotics Pertinent Labs: reviewed Technique: Using sterile technique including cap and mask, glove and drape, the right arm was prepped and draped in the usual sterile fashion of full barrier technique with CHG. Using ultrasound guidance, right basilic vein accesses in a single attempt by saul VALENTIN and a picture was taken of the right basilic vein. the right arm was positioned cleansed with CHG x 2. The patient was draped with sterile drapes per protocol. The procedure was performed in S272. Ultrasound was used to document vein patency and for needle entry. A formal ultrasound picture was recorded. Vascular Camera Tuning Engineer has released the line for use and it is currently dressed with a StatLock, Tegaderm, and CHG disc. Verification has been performed for blood return and line patency. Arm Circumference: 27 cm Equipment: Bard Power[employer] ST Midline Catheter Catheter Type: 20 guage 10 cm non-PASV midline Lot #: [id number]
[2022-06-06 11:44] LABS: Glucose, Whole Blood 97 mg/dL (60-115)
--- NOTE | 2022-06-06 13:16 | MHC.CM.PN ---
EMR REVIEWED, PT ACCEPTED BY [facility] HOWEVER SOC WON'T BE UNTIL SATURDAY 04/07 AT NOON, PT WILL NEED DRESSING ORDERS FOR EVERY OTHER DAY, PER PT'S RN PT RECEIVING [employer] DRESSINGS AND WILL NEED SUPPLIES SENT HOME W/PT. [facility] UPDATED AND WILL PLAN FOR DELIVERY TOMORROW 06/07. CM WILL CONT TO FOLLOW D/C NEEDS.
[2022-06-06] MEDS: Lactulose 20 GM/30 ML SOLUTION PO (15:38)
[2022-06-06 16:48] LABS: Glucose, Whole Blood 149 mg/dL (60-115)
[2022-06-06 20:30] LABS: Glucose, Whole Blood 169 mg/dL (60-115)
[2022-06-06] MEDS: Gabapentin 300 MG CAPSULE PO (21:00)
[2022-06-06] MEDS: Insulin Glargine,Hum.rec.anlog 100 UNIT/ML 10 ML VIAL 64 UNIT SUBCUT (21:00)
[2022-06-07] MEDS: ceFAZolin Sodium/Dextrose,Iso 2 GM/50 ML PIGGYBACK IV ×3 (03:31→19:11)
[2022-06-07 03:43] VITALS: BP 99/55; PULSE 101; RESP 19; TEMP 36.6; O2SAT 96
[2022-06-07] MEDS: oxyCODONE HCl Immed Release 5 MG TABLET 2.5 MG PO ×3 (04:08→23:28)
[2022-06-07] MEDS: Omeprazole 40 MG CAPSULE.DR PO (05:58)
[2022-06-07] MEDS: Levothyroxine Sodium 50 MCG TABLET PO (05:58)
[2022-06-07 08:00] VITALS: BP 102/58; PULSE 98; RESP 18; TEMP 36.3; O2SAT 97
[2022-06-07 08:05] LABS: Glucose, Whole Blood 85 mg/dL (60-115)
--- NOTE | 2022-06-07 10:02 | P.PNIM_ITS ---
Subjective Subjective Date of Service: 06/07/22 Interval History: cc: abd distension, hyponatremia interval history: no pain Physical Exam Vital Signs: Vital Signs: Last Vital Signs Temp 97.4 F 06/07/22 08:00 Pulse 98 06/07/22 08:00 Resp 18 06/07/22 08:00 BP 102/58 L 06/07/22 08:00 Pulse Ox 97 06/07/22 08:00 O2 Del Method 06/07/22 08:00 O2 Flow Rate 2 06/07/22 08:00 BMI result Body Mass Index 55.4 Const: General: no acute distress HEENT: Head: Yes normocephalic and Yes atraumatic Neck: Neck: Yes supple Resp: Auscultation: diminished lung sounds Cardio: Heart sounds: S1 normal heart sound present and S2 normal heart sound present GI: Palpation (GI): Soft to palpation and nontender Extrem: General: Yes pedal edema Objective Data Active Medications Acetaminophen (Acetaminophen 325 Mg Tablet) 650 mg PO Q6H PRN PRN Reason: Pain, Mild (Pain Scale 1-3) Last Admin: 06/04/22 20:27 Dose: 650 mg Documented By: BAKARI Albuterol Sulfate (Albuterol Sulfate 90 Mcg 8 Gm Inhaler) 2 puff INHALE Q6H PRN PRN Reason: Wheezing Last Admin: 06/02/22 11:09 Dose: 2 puff Documented By: ANJALI Calcium Carbonate (Calcium Carbonate 750 Mg Tab.Chew) 750 mg PO Q4H PRN PRN Reason: Heartburn Last Admin: 06/03/22 12:23 Dose: 750 mg Documented By: VICENTA Albuterol Sulfate 2.5 mg/ (Ipratropium [place] 0.5 mg) 0 mg INHALE QID PRN PRN Reason: Dyspnea Docusate Sodium (Docusate Sodium 100 Mg Capsule) 100 mg PO DAILY PRN PRN Reason: Constipation Last Admin: 06/03/22 17:21 Dose: 100 mg Documented By: VICENTA Docusate Sodium (Docusate Sodium 100 Mg Capsule) 100 mg PO BID PRN PRN Reason: constipation Last Admin: 06/04/22 10:45 Dose: 100 mg Documented By: SUZIE Furosemide (Furosemide 40 Mg Tablet) 40 mg PO BID@0900,1800 [facility]; Protocol Last Admin: 06/06/22 18:13 Dose: 40 mg Documented By: AARON Gabapentin (Gabapentin 300 Mg Capsule) 300 mg PO BEDTIME [facility]END[facility] TO [facility] Last Admin: 06/06/22 21:00 Dose: 300 mg Documented By: LEANA Cefazolin Sodium/Dextrose (Ancef) 2 gm in 50 mls @ 100 mls/hr IV Q8H [facility] Last Infusion: 06/07/22 04:19 Dose: 0 mls/hr Documented By: LEANA Insulin Glargine (Insulin Glargine,Hum.Rec.Anlog 100 Unit/Ml 10 Ml Vial) 64 unit SUBCUT BEDTIME [facility] Last Admin: 06/06/22 21:00 Dose: 64 unit Documented By: LEANA Insulin Human Lispro (Insulin Lispro 100 Unit/Ml 3 Ml Vial) 0 unit SUBCUT QIDACHS [facility] TO [facility]; Protocol Last Admin: 06/07/22 08:30 Dose: Not Given Documented By: WALI Non-Admin Reason: No Insulin Coverage Lactulose (Lactulose 20 Gm/30 Ml Solution) 20 gm PO DAILY PRN PRN Reason: Constipation Last Admin: 06/04/22 10:45 Dose: 20 gm Documented By: SUZIE Lactulose (Lactulose 20 Gm/30 Ml Solution) 20 gm PO TID [facility] Last Admin: 06/06/22 21:10 Dose: Not Given Documented By: LEANA Non-Admin Reason: Patient Refused Levothyroxine Sodium (Levothyroxine Sodium 50 Mcg Tablet) 50 mcg PO DAILY@0600 [facility] Last Admin: 06/07/22 05:58 Dose: 50 mcg Documented By: LEANA Lisinopril (Lisinopril 2.5 Mg Tablet) 2.5 mg PO DAILY [facility]; Protocol Last Admin: 06/01/22 08:59 Dose: 2.5 mg Documented By: WILLIAM Loratadine (Loratadine 10 Mg Tablet) 10 mg PO DAILY PRN PRN Reason: Allergic Symptoms Pt Own (Flovent (220mcg 2 Inhalation)) 2 inhalation PO RBID [facility] Last Admin: 06/06/22 19:37 Dose: Not Given Documented By: ALIRIO Non-Admin Reason: Duplicate order; Document as unscheduled Omeprazole (Omeprazole 40 Mg Capsule.Dr) 40 mg PO DAILY@0630 [facility] Last Admin: 06/07/22 05:58 Dose: 40 mg Documented By: LEANA Ondansetron HCl (Ondansetron Hcl 4 Mg/2 Ml Vial) 4 mg IVPUSH Q8H PRN PRN Reason: Nausea and Vomiting Last Admin: 06/06/22 09:24 Dose: 4 mg Documented By: AARON Oxycodone HCl (Oxycodone Hcl Immed Release 5 Mg Tablet) 2.5 mg PO Q6H PRN PRN Reason: Pain, Moderate (Pain Scale 4-6 Last Admin: 06/07/22 04:08 Dose: 2.5 mg Documented By: LEANA Senna (Sennosides 8.6 Mg Tablet) 8.6 mg PO DAILY PRN PRN Reason: Constipation Last Admin: 06/04/22 10:43 Dose: 8.6 mg Documented By: VERNONRACMARCO ANTONIO Sodium Chloride (0.9 % Sodium Chloride Flush 3 Ml Syringe) 3 ml IVFLUSH QSHIFT [facility] Last Admin: 06/06/22 21:01 Dose: 3 ml Documented By: LEANA Spironolactone (Spironolactone 25 Mg Tablet) 75 mg PO BID@0900,1800 [facility]; Protoc ol Last Admin: 06/06/22 18:13 Dose: 75 mg Documented By: AARON Vitamin E (Vitamin E (Dl,Tocopheryl Acet) 180 Mg (400 Unit) Capsule) 180 mg PO BID [facility] Last Admin: 06/06/22 21:00 Dose: 180 mg Documented By: LEANA Zinc Sulfate (Zinc Sulfate 220 Mg Capsule) 220 mg PO DAILY [facility] Last Admin: 06/06/22 08:02 Dose: 220 mg Documented By: AARON Labs 06/06/22 05:04 06/06/22 05:04 Labs: Laboratory Results - last 24 hr 06/06/22 06/06/22 06/06/22 11:35 16:44 20:12 POC Glucose 97 149 H 169 H 06/07/22 07:59 POC Glucose 85 Microbiology Microbiology Results: Microbiology 06/02/22 09:35 Gram Stain - Final Abdominal Fluid Routine Culture - Final No growth after 2 days Anaerobic Culture - Preliminary No growth to date. 06/04/22 05:08 Blood Culture - Preliminary Blood - Venous No growth after 48 hours. 06/04/22 05:08 Blood Culture - Preliminary Blood - Venous No growth after 48 hours. Assessment and Plan (1) Coagulopathy: Status: Acute (2) Thrombocytopenia: Status: Acute (3) Pneumonia: Status: Acute (4) Ascites: Status: Acute (5) Positive blood culture: Status: Acute Plan 46F PMH SERVIN cirrhosis, pcos, DM, HTN, morbid obesity, presented with painfulc ascites, found to have bacteremia MSSA bacteremia possibly from cellulitis follow up repeat 06/04/22 - no growth to date ancef 4 weeks then levaquin 500 3 times weekly ID appreciated echo with no vegetation has midline acute hypoxic respiratory failure cxr with atelectasis, wean o2 as tolerated SERVIN cirrhosis with painful ascites, thrombcytopenia s/p paracentesis 7.5L 06/02/22 negative for sbp continue lasix , aldactone acute on chronic hyponatremia Likely hypervolemic hyponatremia from cirrhosis fluid restrict Follow BMP improving 131 today type 2 diabetes SSI, Lantus Diabetic diet morbid obesity weight loss advised hypothyroidism levothyroxine HTN lisinopril, aldactone DVT ppx: SCDs - thrombocytopenia reason for continued hospitalization: bacteremia needing IV abx Time Spent With Patient Time: Total time managing care of this patient today ____ minutes. Quality Stroke Does the patient have a stroke diagnosis?: No VTE Prior VTE?: No VTE Risk Level:: Medical - moderate - high VTE Device Contraindication: N/A - Device Ordered VTE Drug Contraindication: Treatment Not Indicated
[2022-06-07] MEDS: 0.9 % Sodium Chloride Flush 3 ML SYRINGE IVFLUSH ×3 (10:07→19:12)
[2022-06-07] MEDS: Furosemide 40 MG TABLET PO ×2 (10:08→17:03)
[2022-06-07] MEDS: Spironolactone 25 MG TABLET 75 MG PO ×2 (10:08→17:03)
[2022-06-07] MEDS: Zinc Sulfate 220 MG CAPSULE PO (10:09)
[2022-06-07] MEDS: Vitamin E (Dl,Tocopheryl Acet) 180 MG (400 UNIT) CAPSULE PO ×2 (10:09→20:49)
--- NOTE | 2022-06-07 10:25 | PM.PNNEP ---
Subjective Subjective Date of Service: 06/07/22 Interval history: seen and examined no complaints Physical Exam Vital Signs: Vital Signs: Last Vital Signs Temp 97.4 F 06/07/22 08:00 Pulse 98 06/07/22 08:00 Resp 18 06/07/22 08:00 BP 102/58 L 06/07/22 08:00 Pulse Ox 97 06/07/22 08:00 O2 Del Method 06/07/22 08:00 O2 Flow Rate 2 06/07/22 08:00 BMI result Body Mass Index 55.4 Const: General: no acute distress HEENT: Head: Yes normocephalic and Yes atraumatic Neck: Neck: Yes supple Resp: Auscultation: diminished lung sounds Cardio: Heart sounds: S1 normal heart sound present and S2 normal heart sound present GI: Palpation (GI): Soft to palpation and nontender Extrem: General: Yes pedal edema Objective Data Labs 06/06/22 05:04 06/06/22 05:04 Labs: Laboratory Results - last 24 hr 06/06/22 06/06/22 06/06/22 11:35 16:44 20:12 POC Glucose 97 149 H 169 H 06/07/22 07:59 POC Glucose 85 Microbiology Microbiology Results: Microbiology 06/02/22 09:35 Abdominal Fluid Gram Stain - Final 06/02/22 09:35 Abdominal Fluid Routine Culture - Final No growth after 2 days 06/02/22 09:35 Abdominal Fluid Anaerobic Culture - Preliminary No growth to date. 06/04/22 05:08 Blood - Venous Blood Culture - Preliminary No growth after 48 hours. 06/04/22 05:08 Blood - Venous Blood Culture - Preliminary No growth after 48 hours. 06/01/22 00:24 Blood - Venous Blood Culture - Final No growth after 5 days. 06/01/22 00:24 Blood - Venous Blood Culture - Final Staphylococcus aureus 05/31/22 07:06 Blood - Venous Blood Culture - Final Staphylococcus aureus 05/31/22 07:06 Blood - Venous Blood Culture - Final Staphylococcus aureus Procedures Date of Service Date of Service: 06/07/22 Assessment & Plan Assessment and plan (1) Hyponatremia: Status: Acute (2) 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: Status: Acute Plan Sna >130 hypervolemic hyponatremia in the setting of liver cirrhosis c/w with hepatic physiology REC continue combination loop diuretics and potassium sparing agent fluid restriction follow kidney function and electrolytes Time Spent With Patient Time: Total time managing care of this patient today ____ minutes. Progress Note: Quality Stroke Does the patient have a stroke diagnosis?: No
[2022-06-07 11:31] LABS: Glucose, Whole Blood 145 mg/dL (60-115)
[2022-06-07 15:35] VITALS: BP 113/56; PULSE 92; RESP 16; TEMP 36.7; O2SAT 93
[2022-06-07] MEDS: Lactulose 20 GM/30 ML SOLUTION PO (15:50)
[2022-06-07] MEDS: ondansetron HCL 4 MG/2 ML VIAL IVPUSH (16:12)
[2022-06-07 16:58] LABS: Glucose, Whole Blood 168 mg/dL (60-115)
[2022-06-07] MEDS: Insulin Lispro 100 UNIT/ML 3 ML VIAL SUBCUT ×2 (17:02→20:48)
[2022-06-07 20:00] VITALS: BP 105/58; PULSE 99; RESP 16; TEMP 37.1; O2SAT 92
[2022-06-07 20:43] LABS: Glucose, Whole Blood 163 mg/dL (60-115)
[2022-06-07] MEDS: Insulin Glargine,Hum.rec.anlog 100 UNIT/ML 10 ML VIAL 64 UNIT SUBCUT (20:48)
[2022-06-07] MEDS: Gabapentin 300 MG CAPSULE PO (20:49)
[2022-06-08] MEDS: ceFAZolin Sodium/Dextrose,Iso 2 GM/50 ML PIGGYBACK IV (03:12)
[2022-06-08 03:56] VITALS: BP 98/52; PULSE 100; RESP 20; TEMP 36.6; O2SAT 93
[2022-06-08] MEDS: Omeprazole 40 MG CAPSULE.DR PO (05:51)
[2022-06-08] MEDS: Levothyroxine Sodium 50 MCG TABLET PO (05:51)
[2022-06-08] MEDS: oxyCODONE HCl Immed Release 5 MG TABLET 2.5 MG PO (05:54)
[2022-06-08 06:28] LABS: Hemoglobin 9.3 g/dl (12.0-16.0); Mean Corpuscular Hemoglobin 31.6 pg (27.0-33.0); Mean Platelet Volume 11.2 fL (9.4-12.3); PLT CLUMP 1; Red Blood Count 2.94 X10*6/uL (4.20-5.50); Red Cell Distribution Width 16.5 % (11.0-16.0)
[2022-06-08 06:30] LABS: Hematocrit 28.1 % (37.0-47.0); Mean Corpuscular HGB Conc 33.1 g/dl (31.0-35.0); Mean Corpuscular Volume 95.6 fL (80.0-98.0); Platelet Count 44 X10*3/uL (160-400); White Blood Count 7.1 X10*3/uL (4.8-10.8)
[2022-06-08 06:49] LABS: Alanine Aminotransferase < 6 U/L (0-31); Albumin Level 2.1 g/dL (3.5-5.0); Alkaline Phosphatase 70 U/L (39-117); Anion Gap 13 (12-20); Aspartate Amino Transferase 31 U/L (5-31); Bilirubin Direct 0.9 mg/dL (0.0-0.5); Bilirubin Total 2.1 mg/dL (0.0-1.0); Blood Urea Nitrogen 15 mg/dL (9-16); Calcium 7.8 mg/dL (8.4-10.2); Carbon Dioxide 31 mmol/L (22-29); Chloride 93 mmol/L (96-108); Creatinine Clr Calc Pharmacy 105.2; Estimated Glomerular Filt Rate > 60; Glucose Fasting 98 mg/dL (60-99); Magnesium 1.6 mg/dL (1.6-2.6); Sodium 133 mmol/L (135-145); Total Protein 5.9 g/dL (6.5-8.0)
[2022-06-08 07:55] LABS: Glucose, Whole Blood 104 mg/dL (60-115)
[2022-06-08 08:00] VITALS: BP 107/59; PULSE 96; RESP 18; TEMP 36.8; O2SAT 98
--- NOTE | 2022-06-08 08:57 | HO.PM.IMPN ---
Subjective Subjective Date of Service: 06/08/22 Interval History: cc: abd distension, hyponatremia interval history: no pain Physical Exam Vital Signs: Vital Signs: Last Vital Signs Temp 98.2 F 06/08/22 08:00 Pulse 96 06/08/22 08:00 Resp 18 06/08/22 08:00 BP 107/59 L 06/08/22 08:00 Pulse Ox 98 06/08/22 08:00 O2 Del Method 06/08/22 08:00 O2 Flow Rate 2 06/08/22 08:00 BMI result Body Mass Index 55.4 Const: General: no acute distress HEENT: Head: Yes normocephalic and Yes atraumatic Neck: Neck: Yes supple Resp: Auscultation: diminished lung sounds Cardio: Heart sounds: S1 normal heart sound present and S2 normal heart sound present GI: Palpation (GI): Soft to palpation and nontender Extrem: General: Yes pedal edema Objective Data Active Medications Acetaminophen (Acetaminophen 325 Mg Tablet) 650 mg PO Q6H PRN PRN Reason: Pain, Mild (Pain Scale 1-3) Last Admin: 06/04/22 20:27 Dose: 650 mg Documented By: BAKARI Albuterol Sulfate (Albuterol Sulfate 90 Mcg 8 Gm Inhaler) 2 puff INHALE Q6H PRN PRN Reason: Wheezing Last Admin: 06/02/22 11:09 Dose: 2 puff Documented By: ANJALI Calcium Carbonate (Calcium Carbonate 750 Mg Tab.Chew) 750 mg PO Q4H PRN PRN Reason: Heartburn Last Admin: 06/03/22 12:23 Dose: 750 mg Documented By: VICENTA Albuterol Sulfate 2.5 mg/ (Ipratropium [place] 0.5 mg) 0 mg INHALE QID PRN PRN Reason: Dyspnea Docusate Sodium (Docusate Sodium 100 Mg Capsule) 100 mg PO DAILY PRN PRN Reason: Constipation Last Admin: 06/03/22 17:21 Dose: 100 mg Documented By: VICENTA Docusate Sodium (Docusate Sodium 100 Mg Capsule) 100 mg PO BID PRN PRN Reason: constipation Last Admin: 06/04/22 10:45 Dose: 100 mg Documented By: SUZIE Furosemide (Furosemide 40 Mg Tablet) 40 mg PO BID@0900,1800 [facility]; Protocol Last Admin: 06/07/22 17:03 Dose: 40 mg Documented By: WALI Gabapentin (Gabapentin 300 Mg Capsule) 300 mg PO BEDTIME [facility] Last Admin: 06/07/22 20:49 Dose: 300 mg Documented By: LEANA Cefazolin Sodium/Dextrose (Ancef) 2 gm in 50 mls @ 100 mls/hr IV Q8H [facility] Last Infusion: 06/08/22 03:44 Dose: 0 mls/hr Documented By: LEANA Insulin Glargine (Insulin Glargine,Hum.Rec.Anlog 100 Unit/Ml 10 Ml Vial) 64 unit SUBCUT BEDTIME [facility] Last Admin: 06/07/22 20:48 Dose: 64 unit Documented By: LEANA Insulin Human Lispro (Insulin Lispro 100 Unit/Ml 3 Ml Vial) 0 unit SUBCUT QIDACHS [facility]; Protocol Last Admin: 06/08/22 08:06 Dose: Not Given Documented By: WALI Non-Admin Reason: No Insulin Coverage Lactulose (Lactulose 20 Gm/30 Ml Solution) 20 gm PO DAILY PRN PRN Reason: Constipation Last Admin: 06/04/22 10:45 Dose: 20 gm Documented By: SUZIE Lactulose (Lactulose 20 Gm/30 Ml Solution) 20 gm PO TID [facility] Last Admin: 06/07/22 20:51 Dose: Not Given Documented By: LEANA Non-Admin Reason: Patient Refused Levothyroxine Sodium (Levothyroxine Sodium 50 Mcg Tablet) 50 mcg PO DAILY@0600 [facility] Last Admin: 06/08/22 05:51 Dose: 50 mcg Documented By: LEANA Lisinopril (Lisinopril 2.5 Mg Tablet) 2.5 mg PO DAILY [facility]; Protocol Last Admin: 06/01/22 08:59 Dose: 2.5 mg Documented By: WILLIAM Loratadine (Loratadine 10 Mg Tablet) 10 mg PO DAILY PRN PRN Reason: Allergic Symptoms Pt Own (Flovent (220mcg 2 Inhalation)) 2 inhalation PO RBID [facility] Last Admin: 06/07/22 20:24 Dose: Not Given Documented By: ALIRIO Non-Admin Reason: Duplicate order; given as Unscheduled Omeprazole (Omeprazole 40 Mg Capsule.Dr) 40 mg PO DAILY@0630 [facility] Last Admin: 06/08/22 05:51 Dose: 40 mg Documented By: LEANA Ondansetron HCl (Ondansetron Hcl 4 Mg/2 Ml Vial) 4 mg IVPUSH Q8H PRN PRN Reason: Nausea and Vomiting Last Admin: 06/07/22 16:12 Dose: 4 mg Documented By: WALI Oxycodone HCl (Oxycodone Hcl Immed Release 5 Mg Tablet) 2.5 mg PO Q6H PRN PRN Reason: moderate pain Last Admin: 06/08/22 05:54 Dose: 2.5 mg Documented By: LEANA Senna (Sennosides 8.6 Mg Tablet) 8.6 mg PO DAILY PRN PRN Reason: Constipation Last Admin: 06/04/22 10:43 Dose: 8.6 mg Documented By: SUZIE Sodium Chloride (0.9 % Sodium Chloride Flush 3 Ml Syringe) 3 ml IVFLUSH [facility] Last Admin: 06/07/22 19:12 Dose: 3 ml Documented By: LEANA Spironolactone (Spironolactone 25 Mg Tablet) 75 mg PO BID@0900,1800 [facility]; Protocol Last Admin: 06/07/22 17:03 Dose: 75 mg Documented By: WALI Vitamin E (Vitamin E (Dl,Tocopheryl Acet) 180 Mg (400 Unit) Capsule) 180 mg PO BID [facility] Last Admin: 06/07/22 20:49 Dose: 180 mg Documented By: LEANA Zinc Sulfate (Zinc Sulfate 220 Mg Capsule) 220 mg PO DAILY [facility] Last Admin: 06/07/22 10:09 Dose: 220 mg Documented By: WALI Labs 06/08/22 05:24 06/08/22 05:24 Labs: Laboratory Results - last 24 hr 06/07/22 06/07/22 06/07/22 11:12 16:55 20:20 MCV MCH MCHC RDW Plt Count MPV Absolute Nucleated RBC Nucleated RBC % (auto) Anion Gap Estim Creat Clear Calc Estimated GFR POC Glucose 145 H 168 H 163 H Fasting Glucose Calcium Magnesium Total Bilirubin Direct Bilirubin AST ALT Alkaline Phosphatase Total Protein Albumin 0206/08/22 06/08/22 05:24 05:24 07:44 MCV 95.6 MCH 31.6 MCHC 33.1 RDW 16.5 H Plt Count 44 L MPV 11.2 Absolute Nucleated RBC 0.000 Nucleated RBC % (auto) 0.0 Anion Gap 13 Estim Creat Clear Calc 105.2 Estimated GFR > 60 POC Glucose 104 Fasting Glucose 98 Calcium 7.8 L Magnesium 1.6 Total Bilirubin 2.1 H Direct Bilirubin 0.9 H AST 31 ALT < 6 Alkaline Phosphatase 70 Total Protein 5.9 L Albumin 2.1 L Microbiology Microbiology Results: Microbiology 06/02/22 09:35 Gram Stain - Final Abdominal Fluid Routine Culture - Final No growth after 2 days Anaerobic Culture - Final NO GROWTH AFTER 5 DAYS Assessment and Plan (1) Coagulopathy: Status: Acute (2) Thrombocytopenia: Status: Acute (3) Pneumonia: Status: Acute (4) Ascites: Status: Acute (5) Positive blood culture: Status: Acute Plan 46F PMH SERVIN cirrhosis, pcos, DM, HTN, morbid obesity, presented with painfulc ascites, found to have bacteremia MSSA bacteremia possibly from cellulitis repeat 06/04/22 - no growth ancef 4 weeks (end 07/01/22) then levaquin 500 3 times weekly ID appreciated echo with no vegetation has midline acute hypoxic respiratory failure cxr with atelectasis, wean o2 as tolerated SERVIN cirrhosis with painful ascites, thrombcytopenia s/p paracentesis 7.5L 06/02/22 negative for sbp continue lasix , aldactone acute on chronic hyponatremia Likely hypervolemic hyponatremia from cirrhosis fluid restrict type 2 diabetes SSI, Lantus Diabetic diet morbid obesity weight loss advised hypothyroidism levothyroxine HTN lisinopril, aldactone DVT ppx: SCDs - thrombocytopenia reason for continued hospitalization: bacteremia needing IV abx Time Spent With Patient Time: Total time managing care of this patient today ____ minutes. Quality Stroke Does the patient have a stroke diagnosis?: No VTE Prior VTE?: No VTE Risk Level:: Medical - moderate - high VTE Device Contraindication: N/A - Device Ordered VTE Drug Contraindication: Treatment Not Indicated
--- NOTE | 2022-06-08 09:14 | PM.PNNEP ---
Subjective Subjective Date of Service: 06/08/22 Interval history: seen and examined no complaints Physical Exam Vital Signs: Vital Signs: Last Vital Signs Temp 98.2 F 06/08/22 08:00 Pulse 96 06/08/22 08:00 Resp 18 06/08/22 08:00 BP 107/59 L 06/08/22 08:00 Pulse Ox 98 06/08/22 08:00 O2 Del Method 06/08/22 08:00 O2 Flow Rate 2 06/08/22 08:00 BMI result Body Mass Index 55.4 Const: General: no acute distress HEENT: Head: Yes normocephalic and Yes atraumatic Neck: Neck: Yes supple Resp: Auscultation: diminished lung sounds Cardio: Heart sounds: S1 normal heart sound present and S2 normal heart sound present GI: Palpation (GI): Soft to palpation and nontender Extrem: General: Yes pedal edema Objective Data Labs 06/08/22 05:24 06/08/22 05:24 Labs: Laboratory Results - last 24 hr 06/07/22 06/07/22 06/07/22 11:12 16:55 20:20 WBC RBC Hgb Hct MCV MCH MCHC RDW Plt Count MPV Absolute Nucleated RBC Nucleated RBC % (auto) Sodium Potassium Chloride Carbon Dioxide Anion Gap BUN Creatinine Estim Creat Clear Calc Estimated GFR POC Glucose 145 H 168 H 163 H Fasting Glucose Calcium Magnesium Total Bilirubin Direct Bilirubin AST ALT Alkaline Phosphatase Total Protein Albumin 06/08/22 06/08/22 06/08/22 05:24 05:24 07:44 WBC 7.1 RBC 2.94 L Hgb 9.3 L Hct 28.1 L MCV 95.6 MCH 31.6 MCHC 33.1 RDW 16.5 H Plt Count 44 L MPV 11.2 Absolute Nucleated RBC 0.000 Nucleated RBC % (auto) 0.0 Sodium 133 L Potassium 4.0 Chloride 93 L Carbon Dioxide 31 H Anion Gap 13 BUN 15 Creatinine 0.93 Estim Creat Clear Calc 105.2 Estimated GFR > 60 POC Glucose 104 Fasting Glucose 98 Calcium 7.8 L Magnesium 1.6 Total Bilirubin 2.1 H Direct Bilirubin 0.9 H AST 31 ALT < 6 Alkaline Phosphatase 70 Total Protein 5.9 L Albumin 2.1 L Microbiology Microbiology Results: Microbiology 06/02/22 09:35 Abdominal Fluid Gram Stain - Final 06/02/22 09:35 Abdominal Fluid Routine Culture - Final No growth after 2 days 06/02/22 09:35 Abdominal Fluid Anaerobic Culture - Final NO GROWTH AFTER 5 DAYS 06/04/22 05:08 Blood - Venous Blood Culture - Preliminary No growth after 48 hours. 06/04/22 05:08 Blood - Venous Blood Culture - Preliminary No growth after 48 hours. 06/01/22 00:24 Blood - Venous Blood Culture - Final No growth after 5 days. 06/01/22 00:24 Blood - Venous Blood Culture - Final Staphylococcus aureus 05/31/22 07:06 Blood - Venous Blood Culture - Final Staphylococcus aureus 05/31/22 07:06 Blood - Venous Blood Culture - Final Staphylococcus aureus Procedures Date of Service Date of Service: 06/08/22 Assessment & Plan Assessment and plan (1) Hyponatremia: Status: Acute (2) 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: Status: Acute Plan Sna stable >130 hypervolemic hyponatremia in the setting of liver cirrhosis c/w with hepatic physiology REC continue combination loop diuretics and potassium sparing agent fluid restriction follow kidney function and electrolytes Time Spent With Patient Time: Total time managing care of this patient today ____ minutes. Progress Note: Quality Stroke Does the patient have a stroke diagnosis?: No
[2022-06-08] MEDS: Vitamin E (Dl,Tocopheryl Acet) 180 MG (400 UNIT) CAPSULE PO (09:31)
[2022-06-08] MEDS: Spironolactone 25 MG TABLET 75 MG PO (09:31)
[2022-06-08] MEDS: Furosemide 40 MG TABLET PO (09:32)
[2022-06-08] MEDS: 0.9 % Sodium Chloride Flush 3 ML SYRINGE IVFLUSH (09:32)
[2022-06-08] MEDS: Zinc Sulfate 220 MG CAPSULE PO (09:32)
--- NOTE | 2022-06-08 11:09 | MHC.CM.PN ---
PT WILL DC HOME TODAY WITH [facility] AND [facility] CONFIRMED THEY WOULD DELIVER MEDS YESTERDAY LINE INFO AND TIP CONFIRMATION WERE SENT [facility] CONFIRMED THEY WILL SEE PT FOR HER AFTERNOON DOSE TODAY PT WILL BE TRANSPORTED VIA BLS
--- NOTE | 2022-06-08 11:16 | PM.DS ---
DS: Providers Provider Date of Service: 06/08/22 Date of admission: 05/30/22 23:21 Primary care physician: Radha Anne MD Consults: 05/31/22 06:58 Consult to Nephrology Routine Consulting [facility] Reason for consultation: hyponatremia Has provider been notified: No 06/02/22 07:40 Consult to Gastroenterology Routine Consulting Provider: Sergei Verma Reason for consultation: Decompensated liver cirrhosis for your kind eval 06/03/22 07:31 Consult to Infectious Diseases Routine Consulting Provider: Rosa Evangelista Reason for consultation: gpc in blood DS: Diagnosis Discharge Diagnosis (1) Hyponatremia: Status: Acute (2) 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: Status: Acute DS: Summary Hospital Course Hospital Course: from initial hpi: 46-year-old female with past medical history of asthma, diabetes, dyslipidemia, HTN, goiter, or ASA, 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 She states the pain is 10/10, constant, no relieving factors.? Denies having any fever or chills, reports increased abdominal distension, some shortness of breath due to the ascites, reports cough, with some phlegm.? Has been having diarrhea with no abdominal pain.? Denies any fever or chills.? Reports no bleeding, no melena or hematemesis.? On arrival to the ED patient hemodynamically stable with a heart rate of 121, otherwise no significant abnormality Labs are significant for MVC of 10.9, hemoglobin of 11.6, hematocrit 34.6 which is around her baseline , PT of 20 high 0.9, INR of 2.2, platelet count of 34 was dropped from most recent, sodium of 128, Total bili of 6.6, direct of 1.6, this appears to have increased from April, albumin of 2.5 Chest x-ray shows bibasilar streaky airspace opacities, atelectasis versus infiltrate, no acute fracture or dislocation with respect to the left shoulder hospital course: Patient was admitted due to SERVIN cirrhosis with painful ascites complicated by thrombocytopenia. She underwent paracentesis with 7.5 L removed which was negative for SBP. She was continued on spironolactone and her Lasix was increased. She will continue follow-up for intermittent paracenteses. Course was complicated by acute hypoxic respiratory failure due to atelectasis from poor inspiratory effort. Course was also complicated by MSSA bacteremia possibly from cellulitis. Repeat cultures from 06/04/2022 showed no growth, echo was unremarkable. She was seen by infectious disease recommended 4 weeks of IV Ancef to be completed 07/01/2022 then followed by Levaquin 500 mg 3 times a week. Patient noted to have acute on chronic hyponatremia likely hypovolemia from cirrhosis, improved with fluid restriction. For type 2 diabetes she was continue insulin. For morbid obesity weight loss recommended. Hypothyroidism was continue on Synthroid. For hypertension was continue lisinopril on the Aldactone. Patient is feeling better will be discharged home. Time Spent with Patient Time attestation: Total time managing care of this patient today ____ minutes. Discharge coordination time: Greater than 30 minutes Quality: Safe Use of Opioids Does Pt have an Active Cancer Diagnosis on the Problem List?: No Quality: Stroke Does the patient have a stroke diagnosis?: No Physical Exam Vital Signs: Vital Signs: Last Vital Signs Temp 98.2 F 06/08/22 08:00 Pulse 96 06/08/22 08:00 Resp 18 06/08/22 08:00 BP 107/59 L 06/08/22 08:00 Pulse Ox 98 06/08/22 08:00 O2 Del Method 06/08/22 08:00 O2 Flow Rate 2 06/08/22 08:00 BMI result Body Mass Index 55.4 Const: General: no acute distress HEENT: Head: Yes normocephalic and Yes atraumatic Neck: Neck: Yes supple Resp: Auscultation: diminished lung sounds Cardio: Heart sounds: S1 normal heart sound present and S2 normal heart sound present GI: Palpation (GI): Soft to palpation and nontender Extrem: General: Yes pedal edema DS: Data Data Completed and Pending Labs on day of discharge: Laboratory Results - last 24 hr 06/07/22 06/07/22 06/07/22 11:12 16:55 20:20 WBC RBC Hgb Hct MCV MCH MCHC RDW Plt Count MPV Absolute Nucleated RBC Nucleated RBC % (auto) Sodium Potassium Chloride Carbon Dioxide Anion Gap BUN Creatinine Estim Creat Clear Calc Estimated GFR POC Glucose 145 H 168 H 163 H Fasting Glucose Calcium Magnesium Total Bilirubin Direct Bilirubin AST ALT Alkaline Phosphatase Total Protein Albumin 06/08/22 06/08/22 06/08/22 05:24 05:24 07:44 WBC 7.1 RBC 2.94 L Hgb 9.3 L Hct 28.1 L MCV 95.6 MCH 31.6 MCHC 33.1 RDW 16.5 H Plt Count 44 L MPV 11.2 Absolute Nucleated RBC 0.000 Nucleated RBC % (auto) 0.0 Sodium 133 L Potassium 4.0 Chloride 93 L Carbon Dioxide 31 H Anion Gap 13 BUN 15 Creatinine 0.93 Estim Creat Clear Calc 105.2 Estimated GFR > 60 POC Glucose 104 Fasting Glucose 98 Calcium 7.8 L Magnesium 1.6 Total Bilirubin 2.1 H Direct Bilirubin 0.9 H AST 31 ALT < 6 Alkaline Phosphatase 70 Total Protein 5.9 L Albumin 2.1 L Preliminary micro results at discharge 06/04/22 05:08 Blood Culture - Preliminary Blood - Venous No growth after 48 hours. 06/04/22 05:08 Blood Culture - Preliminary Blood - Venous No growth after 48 hours. Discharge Plan Discharge Anticipated Discharge Date/Time: 06/08/22 10:56 Patient Disposition: Home Health Service Discharge Diagnosis: mssa bacteremia Referrals: [facility] [Other] - 1 Day ([facility] WILL DELIVER YOUR IV ANTIBIOTICS AND THEY CAN PROVIDE OFF HOUR NURSIING SUPPORT IF YOU HAVE ANY QUESTIONS. [phone]) [facility] [Outside] - 1 Day (INTERMEDIATE FOR WOUND CARE AND IV ANTIBIOTICS) Radha Anne MD [Primary Care Provider] - 1 Week Discharge Medications: New cefazolin in dextrose (iso-os) 2 gram/50 mL Piggyback 2 g IV Q8H Qty: 0 0RF Continued Toujeo Max U-300 SoloStar 300 unit/mL (3 mL) insulin pen 80 unit subcut BEDTIME omeprazole 40 mg Capsule,Delayed Release(Dr/Ec) 40 mg PO DAILY@0630 Qty: 30 0RF spironolactone 25 mg Tablet 75 mg PO BID@0900,1800 30 Days Qty: 180 0RF Protocol: Hold for SBP< HOLD for SBP < : 90 ipratropium-albuterol 0.5 mg-3 mg(2.5 mg base)/3 mL solution for nebulization 1 amp inhalation QID PRN (Reason: dyspnea) lisinopril 2.5 mg tablet 1 tab PO DAILY loratadine 10 mg tablet 1 tab PO DAILY PRN (Reason: Allergy Symptoms) insulin lispro 100 unit/mL insulin pen 26 unit subcut TIDAC Rx Instructions: 26 units if blood sugar <200; 30 units if blood sugar >200 vitamin E (dl, acetate) 180 mg (400 unit) capsule 1 cap PO BID sennosides [senna] 8.6 mg Tablet 8.6 mg PO DAILY PRN (Reason: Constipation) acetaminophen 325 mg tablet 2 tab PO Q8H PRN (Reason: pain) docusate sodium 100 mg capsule 1 cap PO BID PRN (Reason: constipation) lactulose 10 gram/15 mL solution 30 ml PO DAILY PRN (Reason: Constipation) (DME) FreeStyle Lite Strips Strip See Rx Instructions .ROUTE .MEDSUPPLY Qty: 10 Rx Instructions: test 3x a day (DME) lancets [FreeStyle Lancets] 28 gauge misc See Rx Instructions .ROUTE .MEDSUPPLY Qty: 100 Rx Instructions: test 3x a day albuterol sulfate [ProAir HFA] 90 mcg/actuation HFA aerosol inhaler 2 puff inhalation Q6H PRN (Reason: Wheezing) Flovent HFA 220 mcg/actuation HFA aerosol inhaler 2 puff inhalation BID gabapentin 300 mg capsule 300 mg PO BEDTIME levothyroxine 50 mcg tablet 50 mcg PO DAILY@0600 vitamin A 10,000 unit capsule 1 cap PO DAILY Trulicity 1.5 mg/0.5 mL pen injector 1.5 mg subcut MO@0900 Changed furosemide 20 mg tablet 40 mg PO BID Qty: 120 2RF Discharge Orders: Discharge Order (Routine); Ordered 06/08/22 Ordered By: Demetrio Mares Diet: Advance to usual diet Activity on Discharge: As tolerated Stand Alone Forms: Patient Portal Discharge page Care Plan Goals: recovery Health Concerns: cirrhosis, bacteremia Plan of Treatment: ancef for 4 weeks, end 07/01/2022, then levaquin 500mg 3 times per week Assessment: see above
--- NOTE | 2022-06-08 11:20 | P.F2F_ITS ---
Service Date Service Date: 06/08/22 Encounter Date of encounter: 06/08/22 Reasons for Services Signs and symptoms assessed: weakness Reason for mcfp: medication management, medication treatment and teach disease management Homebound: Leaving the home is medically contraindicated at this time without the asist of a device and/or another person due th the listed conditions above and below. Reason homebound: unsteady gait / fall risk Certification: Based on the above findings, I certify that this patient is confined to the home and needs intermittent mcfp care, physical therapy and/or speech therapy, or continues to need occupational therapy. The patient is under my care, and I have initiated the establishment of the plan of care. The patient will be followed by a physician who will periodically review the plan of care. Time Spent With Patient Time: Total time managing care of this patient today ____ minutes.
[2022-06-08 11:28] LABS: Glucose, Whole Blood 115 mg/dL (60-115)
== END 2022-06-08 13:06 | disposition home health service (06) ==
LOC: HO.ED 22:05 → HO.EDOVER 23:39 → HO.S3 05-31 14:18
PROVIDERS: Internal Medicine; Radiology Diagnostic Radiology; Student in an Organized Health Care Education/Training Program; Admitting Provider Internal Medicine; Emergency Provider Emergency Medicine; PCP Family Medicine; Visit Provider Internal Medicine
PROC: 0W9G3ZZ Drainage of Peritoneal Cavity, Percutaneous Approach (ICD-10-PCS; principal; 2022-06-02 09:00)
DX: K74.69 Other cirrhosis of liver (principal); J96.01 Acute respiratory failure with hypoxia; J18.9 Pneumonia, unspecified organism; D68.4 Acquired coagulation factor deficiency; R78.81 Bacteremia; E87.1 Hypo-osmolality and hyponatremia; E87.79 Other fluid overload; R18.8 Other ascites; D69.59 Other secondary thrombocytopenia; L03.115 Cellulitis of right lower limb; Z68.43 Body mass index [BMI] 50.0-59.9, adult; E11.9 Type 2 diabetes mellitus without complications; G47.33 Obstructive sleep apnea (adult) (pediatric); E66.01 Morbid (severe) obesity due to excess calories; M62.84 Sarcopenia; E03.9 Hypothyroidism, unspecified; K75.81 Nonalcoholic steatohepatitis (NASH); Z20.822 Contact with and (suspected) exposure to COVID-19; B95.61 Methicillin susceptible Staphylococcus aureus infection as the cause of diseases classified elsewhere; J98.11 Atelectasis; E28.2 Polycystic ovarian syndrome; Z87.891 Personal history of nicotine dependence; Z88.0 Allergy status to penicillin; Z88.5 Allergy status to narcotic agent; Z88.6 Allergy status to analgesic agent; Z79.51 Long term (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 inhaled steroids; Z79.890 Hormone replacement therapy; Z79.899 Other long term (current) drug therapy
CPT/HCPCS: 36410; 36415; 49083; 71045; 73030; 76705; 80048; 80076; 80202; 82565; 82945; 82947; 83605; 83615; 83735; 83880; 84157; 84484; 85025; 85027; 85610; 87040; 87070; 87073; 87077; 87147; 87186; 87205; 87635; 89051; 93005; 93306; 94640; 99285; J0456; J0690; J0696; J1170; J1940; J2270; J2405; J3370; P9047; Q9957

== ENCOUNTER 2022-06-10 06:38 | Day surgery (SDC) | payer MEDICAID, SELFPAY ==
[2022-06-10] VITALS (7 sets, daily range): BP systolic 103–116; BP diastolic 53–64; PULSE 91–102; RESP 18–20; TEMP 36.6–36.7; O2SAT 89–97
--- NOTE | ~2022-06-10 | US_ITS ---
EXAMINATION: ULTRASOUND-GUIDED PARACENTESIS CLINICAL INFORMATION: Ascites COMPARISON: Previous exam most recent 06/02/2022 TECHNIQUE: Procedure and risks and benefits including bleeding, infection and low blood pressure were discussed with the patient and informed consent was obtained. Left lower quadrant was prepped and draped in usual sterile fashion. The skin and soft tissues were anesthetized with 1% lidocaine plain. Using ultrasound guidance and a 5 [place] catheter, access to the ascitic fluid was obtained. 11.7 L of clear yellow fluid was removed. No diagnostic specimen was sent. FINDINGS: There is a large amount of ascites. US/US paracentesis abd w/image IMPRESSION: Ultrasound-guided paracentesis.
[2022-06-10 07:43] LABS: MANUAL DIFF FLAG NO
[2022-06-10 07:49] LABS: Basophils Percent Auto 0.4 % (0-2); Eosinophils Absolute Auto 0.1 X10*3/uL (0.0-0.4); Eosinophils Percent Auto 0.9 % (0-4); Hematocrit 32.1 % (37.0-47.0); Hemoglobin 10.3 g/dl (12.0-16.0); Imm Gran Abs Auto 0.06 X10*3/uL (0.00-0.03); Imm Gran Pct Auto 0.6 % (0.0-0.4); Lymphocytes Absolute Auto 0.6 X10*3/uL (1.2-4.9); Lymphocytes Percent Auto 6.9 % (20-40); Mean Corpuscular HGB Conc 32.1 g/dl (31.0-35.0); Mean Corpuscular Hemoglobin 31.3 pg (27.0-33.0); Mean Corpuscular Volume 97.6 fL (80.0-98.0); Mean Platelet Volume 10.2 fL (9.4-12.3); Monocytes Absolute Auto 0.9 X10*3/uL (0.1-1.2); Monocytes Percent Auto 9.2 % (2-11); Neutrophils Absolute Auto 7.6 x10*3/uL (2.0-8.3); Platelet Count 68 X10*3/uL (160-400); Red Blood Count 3.29 X10*6/uL (4.20-5.50); Red Cell Distribution Width 16.5 % (11.0-16.0); White Blood Count 9.3 X10*3/uL (4.8-10.8)
[2022-06-10 07:52] LABS: INTERNATIONAL NORM RATIO 1.6 (0.9-1.1); Prothrombin Time 18.5 SEC (10.0-13.1)
[2022-06-10 07:55] LABS: Partial Thromboplastin Time 32.4 SEC (26.0-36.4)
--- NOTE | 2022-06-10 09:38 | HO.RADPN ---
RADIOLOGY Narrative Narrative: LLQ paracentesis using 5 fr catheter. Large volume clear yellow fluid removed. No specimen sent.
[2022-06-10] MEDS: Lidocaine HCl 1 % MPF 5 ML VIAL SUBCUT (10:10)
== END 2022-06-10 12:12 | disposition home or self-care (01) ==
PROVIDERS: Radiology Diagnostic Radiology; PCP Family Medicine; Visit Provider Radiology Diagnostic Radiology
DX: K74.60 Unspecified cirrhosis of liver (principal); R18.8 Other ascites; K75.81 Nonalcoholic steatohepatitis (NASH); I10 Essential (primary) hypertension; E78.5 Hyperlipidemia, unspecified; J45.909 Unspecified asthma, uncomplicated; G47.33 Obstructive sleep apnea (adult) (pediatric); E66.01 Morbid (severe) obesity due to excess calories; Z68.43 Body mass index [BMI] 50.0-59.9, adult; E11.21 Type 2 diabetes mellitus with diabetic nephropathy; Z79.4 Long term (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 insulin; Z88.0 Allergy status to penicillin; Z88.8 Allergy status to other drugs, medicaments and biological substances; Z87.891 Personal history of nicotine dependence
CPT/HCPCS: 36415; 49083; 85025; 85610; 85730; C1729

== ENCOUNTER 2022-06-11 21:06 | Emergency (ER) | payer MEDICAID, SELFPAY ==
[2022-06-11 21:18] VITALS: BP 148/90; PULSE 104; O2SAT 96
[2022-06-11 21:54] VITALS: BP 106/55; PULSE 99; RESP 18; TEMP 36.6; O2SAT 98; BMI 49.6
--- NOTE | 2022-06-11 23:24 | PC.NURSE ---
AT BEDSIDE TO EVALUATE PICC LINE IN RIGHT ARM. INSTRUCTIONS ARE TO PLACE ADDITIONAL TEGADERMS ON TOP OF EXISTING DRESSING AND HE WILL PLACE ORDER TO FLUSH LINE WITH HEPARIN. pT WILL SEE HER VISITING rn SUSHIL, AND DRESSING SHOULD BE CHANGED, BECAUSE BOTTOM CORNER IS LOOSE BUT SITE IS NOT EXPOSED.
--- NOTE | 2022-06-11 23:24 | ED.GENADULT ---
HPI - General Adult General Chief complaint: General Medical Stated complaint: Pic Line Bleeding Time Seen by Provider: 06/11/22 22:15 Source: patient Mode of arrival: ambulatory Limitations: no limitations History of Present Illness HPI narrative: Patient noticed bleeding from the cap of PICC line earlier today was used in a.m. by nurse without any difficulty Related Data Home Medications Medication Instructions Recorded Confirmed albuterol sulfate 90 mcg/actuation 2 puff inhalation Q6H PRN Wheezing 08/16/20 05/31/22 aerosol inhaler (ProAir HFA) blood sugar diagnostic (FreeStyle #10 ea 08/16/20 08/16/20 Lite Strips) fluticasone propionate 220 2 puff inhalation BID 08/16/20 05/31/22 mcg/actuation HFA aerosol inhaler (Flovent HFA) lancets 28 gauge (FreeStyle #100 ea 08/16/20 08/16/20 Lancets) gabapentin 300 mg capsule 300 mg PO BEDTIME pain 11/04/21 05/31/22 levothyroxine 50 mcg tablet 50 mcg PO DAILY@0600 11/04/21 05/31/22 dulaglutide 1.5 mg/0.5 mL 1.5 mg subcut MO@0900 04/28/22 05/31/22 subcutaneous pen injector (Trulicity) vitamin A 10,000 unit capsule 1 cap PO DAILY 04/28/22 05/31/22 insulin glargine U-300 conc 300 80 unit subcut BEDTIME 04/30/22 05/31/22 unit/mL (3 mL) subcutaneous pen (Toujeo Max U-300 SoloStar) acetaminophen 325 mg tablet 2 tab PO Q8H PRN pain 05/31/22 05/31/22 docusate sodium 100 mg capsule 1 cap PO BID PRN constipation 05/31/22 05/31/22 insulin lispro 100 unit/mL 26 unit subcut TIDAC 05/31/22 05/31/22 subcutaneous pen ipratropium 0.5 mg-albuterol 3 mg 1 amp inhalation QID PRN dyspnea 05/31/22 05/31/22 (2.5 mg base)/3 mL nebulization soln lisinopril 2.5 mg tablet 1 tab PO DAILY 05/31/22 05/31/22 loratadine 10 mg tablet 1 tab PO DAILY PRN Allergy Symptoms 05/31/22 05/31/22 sennosides 8.6 mg tablet (senna) 8.6 mg PO DAILY PRN Constipation 05/31/22 05/31/22 vitamin E (dl, acetate) 180 mg 1 cap PO BID 05/31/22 05/31/22 (400 unit) capsule Previous Rx's Medication Instructions Recorded omeprazole 40 mg capsule,delayed 40 mg PO DAILY@0630 #30 caps 05/05/22 release spironolactone 25 mg tablet 75 mg PO BID@0900,1800 30 days 05/05/22 #180 tabs cefazolin 2 gram/50 mL in dextrose 2 g (50 mL) IV Q8H #0 ea 06/08/22 (iso-osmotic) intravenous piggyback furosemide 20 mg tablet 40 mg PO BID #120 tabs 06/08/22 lactulose 10 gram/15 mL oral 30 ml PO DAILY PRN Constipation 06/10/22 solution #946 mL Allergies Allergy/AdvReac Type Severity Reaction Status Date / Time ibuprofen [From MOTRIN] Allergy Intermediate RASH Verified 06/11/22 21:54 penicillin V Allergy Mild hives Verified 06/11/22 21:54 codeine Allergy Unknown Verified 06/11/22 21:54 Rx- listed on H&P lidocaine Allergy Blister Verified 06/11/22 21:54 Review of Systems Review of Systems: Yes all other systems are reviewed and are negative [facility] Past Medical History Medical History Acromegaly Asthma Diabetes type 2, uncontrolled Diabetic nephropathy associated with type 2 diabetes mellitus Dyslipidemia Elevated TSH Goiter HTN (hypertension) 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 Morbid obesity Non-toxic multinodular goiter AMY (obstructive sleep apnea) PCOS (polycystic ovarian syndrome) Status post abdominal paracentesis Surgical History Hx of colonoscopy Hx of endoscopy Family History Family History Father Unknown family medical history Mother Hx of type 1 diabetes mellitus Social History Social History Household Members: Spouse Housing: House Do you presently have visiting nurse or other home services: No Alcohol intake: never Patient Tobacco Use Status: Former Tobacco user Quit Date: 7 yrs ago Substance Use Type: Marijuana Advance Directives: No Advance Directives Information Provided: Yes service: No Current occupational status: disabled 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 Oriented X3. No acute distress. ENT: Pharynx normal. Oral Mucosa moist Neck: Normal inspection. Neck supple. CVS: Normal heart rate and rhythm. Pulses normal. Respiratory: No respiratory distress. Equal air entry bilateral, Abdomen: Soft and nontender. Bowel sounds are present, Skin: Skin warm and dry. Normal skin color. Normal skin turgor. PICC line in place right arm Extremities: No lower extremity edema. No calf tenderness Neuro: Oriented X 3. No motor deficit. Medical Decision Making Medical Decision Making MDM Narrative: It was noticed that PICC line cap was loose it was tightened no blood leakage and site of insertion no signs of infection dressing was reapplied patient advised to follow-up with her PCP as needed line was flushed and is working normally Discharge Plan Discharge Clinical Impression: Bleeding from PICC line Patient Disposition: Home, Self-Care Instructions: PICC (Peripherally Inserted Central Catheter) (DC) Additional Instructions: Local care as advised Prescriptions: No Action lactulose 10 gram/15 mL solution 30 ml PO DAILY PRN (Reason: Constipation) Qty: 946 0RF Toujeo Max U-300 SoloStar 300 unit/mL (3 mL) insulin pen 80 unit subcut BEDTIME omeprazole 40 mg Capsule,Delayed Release(Dr/Ec) 40 mg PO DAILY@0630 Qty: 30 0RF spironolactone 25 mg Tablet 75 mg PO BID@0900,1800 30 Days Qty: 180 0RF Protocol: Hold for SBP< HOLD for SBP < : 90 ipratropium-albuterol 0.5 mg-3 mg(2.5 mg base)/3 mL solution for nebulization 1 amp inhalation QID PRN (Reason: dyspnea) lisinopril 2.5 mg tablet 1 tab PO DAILY loratadine 10 mg tablet 1 tab PO DAILY PRN (Reason: Allergy Symptoms) insulin lispro 100 unit/mL insulin pen 26 unit subcut TIDAC Rx Instructions: 26 units if blood sugar <200; 30 units if blood sugar >200 vitamin E (dl, acetate) 180 mg (400 unit) capsule 1 cap PO BID sennosides [senna] 8.6 mg Tablet 8.6 mg PO DAILY PRN (Reason: Constipation) acetaminophen 325 mg tablet 2 tab PO Q8H PRN (Reason: pain) docusate sodium 100 mg capsule 1 cap PO BID PRN (Reason: constipation) cefazolin in dextrose (iso-os) 2 gram/50 mL Piggyback 2 g IV Q8H Qty: 0 0RF furosemide 20 mg tablet 40 mg PO BID Qty: 120 2RF (DME) FreeStyle Lite Strips Strip See Rx Instructions .ROUTE .MEDSUPPLY Qty: 10 Rx Instructions: test 3x a day (DME) lancets [FreeStyle Lancets] 28 gauge misc See Rx Instructions .ROUTE .MEDSUPPLY Qty: 100 Rx Instructions: test 3x a day albuterol sulfate [ProAir HFA] 90 mcg/actuation HFA aerosol inhaler 2 puff inhalation Q6H PRN (Reason: Wheezing) Flovent HFA 220 mcg/actuation HFA aerosol inhaler 2 puff inhalation BID gabapentin 300 mg capsule 300 mg PO BEDTIME levothyroxine 50 mcg tablet 50 mcg PO DAILY@0600 vitamin A 10,000 unit capsule 1 cap PO DAILY Trulicity 1.5 mg/0.5 mL pen injector 1.5 mg subcut MO@0900
--- NOTE | 2022-06-12 00:10 | PC.NURSE ---
No heparin infused, pt plans to have 8pm medicatuion infused. assists her and reports that after medication infusion he flushes with saline then medication with a blue cap.
--- NOTE | 2022-06-12 05:37 | PC.NURSE ---
Pt and understand that they should follow up with visiting RN and request appointment with IR to check PICC line. Good blood return but slow flush with saline.
== END 2022-06-12 00:05 | disposition home or self-care (01) ==
PROVIDERS: Emergency Provider Internal Medicine; PCP Family Medicine
DX: T80.211A Bloodstream infection due to central venous catheter, initial encounter (principal); Y82.9 Unspecified medical devices associated with adverse incidents; Y92.9 Unspecified place or not applicable
CPT/HCPCS: 99282

== ENCOUNTER 2022-06-13 14:53 | Outpatient (REF) | payer MEDICAID, SELFPAY ==
[2022-06-13 17:49] LABS: MANUAL DIFF FLAG NO
[2022-06-13 17:58] LABS: Basophils Percent Auto 0.5 % (0-2); Eosinophils Absolute Auto 0.1 X10*3/uL (0.0-0.4); Eosinophils Percent Auto 0.9 % (0-4); Hematocrit 29.4 % (37.0-47.0); Hemoglobin 9.8 g/dl (12.0-16.0); Imm Gran Abs Auto 0.03 X10*3/uL (0.00-0.03); Imm Gran Pct Auto 0.4 % (0.0-0.4); Lymphocytes Absolute Auto 0.8 X10*3/uL (1.2-4.9); Lymphocytes Percent Auto 10.7 % (20-40); Mean Corpuscular HGB Conc 33.3 g/dl (31.0-35.0); Mean Corpuscular Hemoglobin 31.8 pg (27.0-33.0); Mean Corpuscular Volume 95.5 fL (80.0-98.0); Mean Platelet Volume 12.7 fL (9.4-12.3); Monocytes Absolute Auto 0.7 X10*3/uL (0.1-1.2); Monocytes Percent Auto 8.9 % (2-11); Neutrophils Absolute Auto 6.1 x10*3/uL (2.0-8.3); Neutrophils Percent Auto 78.6 % (45-73); Red Blood Count 3.08 X10*6/uL (4.20-5.50); Red Cell Distribution Width 16.4 % (11.0-16.0); White Blood Count 7.8 X10*3/uL (4.8-10.8)
[2022-06-13 18:11] LABS: Blood Urea Nitrogen 22 mg/dL (9-16)
[2022-06-13 18:15] LABS: Platelet Count 70 X10*3/uL (160-400)
== END 2022-06-13 14:54 | disposition home or self-care (01) ==
LOC: HO.HVNA 14:53
PROVIDERS: PCP Family Medicine; Visit Provider Internal Medicine
DX: M86.9 Osteomyelitis, unspecified (principal)
CPT/HCPCS: 36415; 84520; 85025

== ENCOUNTER → 2022-06-16 13:16 | Outpatient (BNVA) | payer MEDICAID, SELFPAY | PROVIDERS: PCP Family Medicine; Referring Provider Family Medicine; Visit Provider Internal Medicine Gastroenterology | DX: K74.60 Unspecified cirrhosis of liver (principal); R18.8 Other ascites; E66.01 Morbid (severe) obesity due to excess calories; Z68.43 Body mass index [BMI] 50.0-59.9, adult | CPT/HCPCS: 99212 ==

== ENCOUNTER 2022-06-19 15:42 | Outpatient (REF) | payer MEDICAID, SELFPAY ==
[2022-06-19 15:57] LABS: Hematocrit 28.3 % (37.0-47.0); Lymphocytes Absolute Auto 0.5 X10*3/uL (1.2-4.9); Mean Platelet Volume 11.9 fL (9.4-12.3); PLT CLUMP 1; Red Cell Distribution Width 16.1 % (11.0-16.0); SCAN SMEAR FLAG 1
[2022-06-19 15:59] LABS: Basophils Absolute Auto 0.1 X10*3/uL (0.0-0.2); Basophils Percent Auto 0.7 % (0-2); Eosinophils Absolute Auto 0.1 X10*3/uL (0.0-0.4); Eosinophils Percent Auto 1.8 % (0-4); Hemoglobin 9.3 g/dl (12.0-16.0); Imm Gran Abs Auto 0.03 X10*3/uL (0.00-0.03); Imm Gran Pct Auto 0.4 % (0.0-0.4); Lymphocytes Percent Auto 7.8 % (20-40); Mean Corpuscular HGB Conc 32.9 g/dl (31.0-35.0); Mean Corpuscular Hemoglobin 31.6 pg (27.0-33.0); Mean Corpuscular Volume 96.3 fL (80.0-98.0); Monocytes Absolute Auto 0.7 X10*3/uL (0.1-1.2); Monocytes Percent Auto 10.5 % (2-11); NRBC Pct Auto 0.6 /100WBC (0.0-0.2); Neutrophils Absolute Auto 5.3 x10*3/uL (2.0-8.3); Neutrophils Percent Auto 78.8 % (45-73); Red Blood Count 2.94 X10*6/uL (4.20-5.50)
[2022-06-19 16:03] LABS: Platelet Count 49 X10*3/uL (160-400); White Blood Count 6.8 X10*3/uL (4.8-10.8)
[2022-06-19 16:04] LABS: MANUAL DIFF FLAG NO
[2022-06-19 17:36] LABS: Blood Urea Nitrogen 33 mg/dL (9-16); Estimated Glomerular Filt Rate 28
== END 2022-06-19 15:43 | disposition home or self-care (01) ==
LOC: HO.HVNA 15:42
PROVIDERS: Visit Provider Internal Medicine
DX: A41.9 Sepsis, unspecified organism (principal)
CPT/HCPCS: 36415; 82565; 84520; 85025

== ENCOUNTER 2022-06-21 14:22 | Inpatient (IN) | payer MEDICAID, SELFPAY ==
--- NOTE | ~2022-06-21 | XR_ITS ---
EXAMINATION: XR CHEST CLINICAL INFORMATION: Shortness of breath and hypoxia COMPARISON: 05/31/2022 TECHNIQUE: Frontal view of the chest was obtained. FINDINGS: Low lung volumes are again noted. There is left basilar atelectasis. There is increased airspace disease in the right lung compared with the prior study. No large pleural effusions are seen. XR/XR chest 1V IMPRESSION: Increasing airspace disease in the right lung. Differential would include edema and infectious etiologies.
--- NOTE | ~2022-06-21 | XR_ITS ---
EXAMINATION: XR CHEST CLINICAL INFORMATION: Intubated. Orogastric tube and triple lumen catheter. COMPARISON: 06/23/2022 TECHNIQUE: Frontal view of the chest was obtained. FINDINGS: Endotracheal tube terminates 2.2 cm above the ambika. Left internal jugular central venous catheter terminates in the mid SVC. Enteric tube courses through the stomach. Increasingly coalescent patchy airspace opacities throughout both lungs, particularly the right lung. Right hemidiaphragm is obscured. No pneumothorax. Stable cardiac mediastinal silhouette. XR/XR chest 1V IMPRESSION: * Lines and tubes as above. * Increasingly coalescent patchy airspace opacities throughout both lungs, particularly the right lung. Multifocal pneumonia or asymmetric edema considered..
--- NOTE | ~2022-06-21 | US_ITS ---
EXAMINATION: ULTRASOUND-GUIDED PARACENTESIS. CLINICAL INFORMATION: Large ascites. COMPARISON: Previous ultrasound paracentesis 06/10/2022 TECHNIQUE: Following explaining ultrasound-guided paracentesis procedure, benefits and risk, a written consent was obtained. Patient was placed supine in the ER stretcher and preliminary ultrasound imaging was obtained through both mid quadrants. An optimal site was selected along the right lower quadrant and marked on the skin. The marked site was cleaned and draped in usual sterile manner. 1% lidocaine was injected puncture site. Through a small skin incision a long 5 [employer] catheter was advanced into the peritoneal space. After observing fluid return, the stylet was removed and catheter connected to vacuum bottle via connecting cannula. After obtaining all fluid and observing no more fluid remaining and no fluid return seen in the catheter, catheter was withdrawn and complete hemostasis achieved at puncture site. FINDINGS: On preliminary ultrasound imaging there is moderate free fluid in the abdomen. Approximately 9.2 L of clear yellowish fluid was drained from right lower quadrant. Part of this fluid was sent to lab as per physician's request. US/US paracentesis abd w/image IMPRESSION: Successful ultrasound-guided therapeutic and diagnostic paracentesis performed without immediate complications.
--- NOTE | ~2022-06-21 | XR_ITS ---
EXAMINATION: XR CHEST CLINICAL INFORMATION: Hypoxia. COMPARISON: CT chest 06/24/2022 at 11:50 AM. TECHNIQUE: Frontal view of the chest was obtained. FINDINGS: The lungs are hyperinflated with patchy opacification right lung base likely combination of infiltrate/atelectasis/effusion. Since the CT chest 06/24/2022 there is expansion of the right upper lobe. Is hypoexpanded left lung with patchy opacity left lung base. Heart size is normal. Enteric tube tip is below diaphragm in stomach. Endotracheal tube tip is 1.3 cm above the ambika. There is a left central venous catheter with its tip in mid SVC. XR/XR chest 1V IMPRESSION: 1. Right lower lobe infiltrate/atelectasis/effusion. The right upper lobe has expanded since the previous CT chest. 2. Hypoexpanded lungs with patchy opacity left lung base likely infiltrate. 3. Endotracheal tube tip is 1.3 cm above the ambika. Enteric tube tip is below diaphragm in stomach.
--- NOTE | ~2022-06-21 | CT_ITS ---
EXAMINATION: CT CHEST WITHOUT CONTRAST CT ABDOMEN AND PELVIS WITHOUT CONTRAST CLINICAL INFORMATION: ARDS. Peritoneal bleed. COMPARISON: Radiograph from today. CT from 05/01/2022 and 04/30/2022. TECHNIQUE: Multidetector volumetric imaging was performed through the chest, abdomen and pelvis without contrast. Sagittal and coronal reformatted images were obtained on the technologist's workstation. Axial MIP volume rendering provided. This CT examination was performed using dose optimization techniques as appropriate, variously including the following: *Automated exposure control *Adjustment of mA and/or kV according to patient size (this includes techniques or standardized protocols for targeted exams where dose is matched to indication/reason for exam; i.e. extremities or head) *Use of iterative reconstruction technique DLP: 1433 mGy-cm. FINDINGS: CHEST: Lungs: The endotracheal tube terminates at the level of the ambika. There is complete opacification of the right lung with air bronchograms. Small associated pleural effusion. Patchy opacities are seen throughout the left lung with more dense consolidation of the lower lobe with air bronchograms. Septal thickening seen with groundglass opacification, mostly involving the left upper lobe. No pneumothorax. Small left-sided pleural effusion as well. Mediastinum: The heart is of normal size. There is no pericardial effusion. Central vascular structures are unremarkable. No hilar or mediastinal lymphadenopathy. Left internal jugular central venous catheter terminates at the lower SVC. Coronary Artery Calcification: None visualized on this study. Chest Wall/Axilla: No lymphadenopathy. No chest wall mass. Anasarca with inflammation greatest on the right chest wall/abdomen. ABDOMEN/PELVIS: Liver, Gallbladder, Biliary Tree: Small size of the liver with nodular Contour. No focal liver lesion seen. Small calcification in the right lobe. Small volume of ascites. This has increased from the prior CT. Multiple stones are seen layering in the gallbladder lumen. Pancreas: Unremarkable. Spleen: Unremarkable. Adrenal Glands: Unremarkable. Kidneys and Ureters: The kidneys are normal in size, shape, and attenuation. No hydronephrosis, hydroureter or calculi seen. No perinephric stranding. Bladder: Decompressed bladder with Nazario catheter in place. Gastrointestinal Tract: Enteric tube extends into the second portion of the duodenum. No wall thickening of the stomach. Normal caliber of the small bowel. No obstruction. No colonic wall thickening is definitively seen. No free air. The appendix is not definitively seen. Abdominal Wall: No hernia is demonstrated. Diffuse anasarca, greatest along the right abdominal wall. Lymphovascular Structures: Lymph nodes: Normal. Vascular: Normal caliber aorta with mild atherosclerotic calcification. Pelvic Viscera: The uterus and adnexa are unremarkable. OSSEOUS STRUCTURES: No suspicious sclerotic or lytic bone lesions are identified. Degenerative changes throughout the spine with vacuum disc phenomenon throughout. CT/CT abdomen pelvis wo IV con IMPRESSION: 1. Endotracheal tube terminates at the level of the ambika. Suggest retraction of 2 cm.. 2. There is complete opacification of the right lung with air bronchograms. There is also dense consolidation of the left lower lobe with air bronchograms. Patchy opacities throughout the left lung with septal thickening and groundglass opacification. These findings may be associated with the clinical history of ARDS, although multifocal pneumonia must be also considered. 3. Cirrhotic liver. Small volume of ascites which has increased from prior. 4. Cholelithiasis. 5. Anasarca. This is greatest along the right chest wall and abdominal wall. 6. The enteric tube extends through the stomach and terminates at the second portion of the duodenum. This critical result was discussed with Kellie Garibay MD by telephone at 06/24/2022 12:53 PM and it was ascertained that the content and urgency of the report was understood at the time of direct communication.
--- NOTE | ~2022-06-21 | XR_ITS ---
EXAMINATION: XR CHEST CLINICAL INFORMATION: Hypoxia COMPARISON: 06/25/2022 TECHNIQUE: Frontal view of the chest was obtained. FINDINGS: Catheter overlying superior vena cava. There is no pneumothorax. The ET tube is 3.5 cm above the ambika. The NG tube is coursing overlying the stomach. Continued bilateral opacities. Possible increase on the right. Right basilar opacities may be fluid and/or edema infiltrate or atelectasis. Mildly increasing opacities left base and left midlung. XR/XR chest 1V IMPRESSION: Tubes and catheters as described above. Some mildly increasing opacities here bilaterally as described above. Low lung volumes
[2022-06-21 14:30] VITALS: BP 107/57; BP 110/70; PULSE 79; PULSE 99; RESP 18; TEMP 36.8; O2SAT 96; O2SAT 99; BMI 54.1
--- NOTE | 2022-06-21 15:10 | ED.GENADULT ---
HPI - General Adult General Chief complaint: General Medical Stated complaint: Fluid retention in abd per EMS Time Seen by Provider: 06/21/22 14:29 Source: patient Mode of arrival: ambulatory Limitations: no limitations History of Present Illness HPI narrative: 47-year-old female with past medical history significant for asthma, DM, dyslipidemia, HTN, goiter, liver cirrhosis secondary to SERVIN with ascites requiring frequent paracentesis. Patient was sent by the visiting nurse for abdominal distension. Related Data Home Medications Medication Instructions Recorded Confirmed albuterol sulfate 90 mcg/actuation 2 puff inhalation Q6H PRN Wheezing 08/16/20 05/31/22 aerosol inhaler (ProAir HFA) blood sugar diagnostic (FreeStyle #10 ea 08/16/20 08/16/20 Lite Strips) fluticasone propionate 220 2 puff inhalation BID 08/16/20 05/31/22 mcg/actuation HFA aerosol inhaler (Flovent HFA) lancets 28 gauge (FreeStyle #100 ea 08/16/20 08/16/20 Lancets) gabapentin 300 mg capsule 300 mg PO BEDTIME pain 11/04/21 05/31/22 levothyroxine 50 mcg tablet 50 mcg PO DAILY@0600 11/04/21 05/31/22 dulaglutide 1.5 mg/0.5 mL 1.5 mg subcut MO@0900 04/28/22 05/31/22 subcutaneous pen injector (Trulicity) vitamin A 10,000 unit capsule 1 cap PO DAILY 04/28/22 05/31/22 insulin glargine U-300 conc 300 80 unit subcut BEDTIME 04/30/22 05/31/22 unit/mL (3 mL) subcutaneous pen (Toujeo Max U-300 SoloStar) acetaminophen 325 mg tablet 2 tab PO Q8H PRN pain 05/31/22 05/31/22 docusate sodium 100 mg capsule 1 cap PO BID PRN constipation 05/31/22 05/31/22 insulin lispro 100 unit/mL 26 unit subcut TIDAC 05/31/22 05/31/22 subcutaneous pen ipratropium 0.5 mg-albuterol 3 mg 1 amp inhalation QID PRN dyspnea 05/31/22 05/31/22 (2.5 mg base)/3 mL nebulization soln lisinopril 2.5 mg tablet 1 tab PO DAILY 05/31/22 05/31/22 loratadine 10 mg tablet 1 tab PO DAILY PRN Allergy Symptoms 05/31/22 05/31/22 sennosides 8.6 mg tablet (senna) 8.6 mg PO DAILY PRN Constipation 05/31/22 05/31/22 vitamin E (dl, acetate) 180 mg 1 cap PO BID 05/31/22 05/31/22 (400 unit) capsule Previous Rx's Medication Instructions Recorded omeprazole 40 mg capsule,delayed 40 mg PO DAILY@0630 #30 caps 05/05/22 release spironolactone 25 mg tablet 75 mg PO BID@0900,1800 30 days 05/05/22 #180 tabs cefazolin 2 gram/50 mL in dextrose 2 g (50 mL) IV Q8H #0 ea 06/08/22 (iso-osmotic) intravenous piggyback furosemide 20 mg tablet 40 mg PO BID #120 tabs 06/08/22 lactulose 10 gram/15 mL oral 30 ml PO DAILY PRN Constipation 06/10/22 solution #946 mL Allergies Allergy/AdvReac Type Severity Reaction Status Date / Time ibuprofen [From MOTRIN] Allergy Intermediate RASH Verified 06/16/22 13:24 penicillin V Allergy Mild hives Verified 06/16/22 13:24 codeine Allergy Unknown Verified 06/16/22 13:24 Rx- listed on H&P lidocaine Allergy Blister Verified 06/16/22 13:24 Review of Systems Review of Systems: All other systems are reviewed and are negative Constitutional: Reports as per HPI and Reports no additional constitutional complaints Eyes: Reports as per HPI and Reports no additional eye complaints Reports system reviewed and no additional complaints, except as documented Cardiovascular: Reports as per HPI and Reports no additional cardiovascular complaints Respiratory: Reports as per HPI and Reports no additional respiratory complaints Gastrointestinal: Reports as per HPI and Reports no additional gastrointestinal complaints Genitourinary: Reports no additional female genitourinary complaints Musculoskeletal: Reports no additional musculoskeletal complaints Skin/Breast: Reports system reviewed and no additional complaints, except as docu Psychiatric: Reports no additional psychiatric complaints Endocrine: Reports no additional endocrine complaints Hematologic/Lymphatic: Reports no additional hematologic/lymphatic complaints Allergic/Immunologic: Reports no additional allergic/immunologic complaints Reports system reviewed and no additional complaints, except as documented and Reports Abnormal speech present [facility] Past Medical History Medical History Acromegaly Asthma Diabetes type 2, uncontrolled Diabetic nephropathy associated with type 2 diabetes mellitus Dyslipidemia Elevated TSH Goiter HTN (hypertension) 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 Morbid obesity Non-toxic multinodular goiter AMY (obstructive sleep apnea) PCOS (polycystic ovarian syndrome) Status post abdominal paracentesis Surgical History Hx of colonoscopy Hx of endoscopy Family History Family History Father Unknown family medical history Mother Hx of type 1 diabetes mellitus Social History Social History Household Members: Spouse Housing: House Do you presently have visiting nurse or other home services: No Alcohol intake: never Patient Tobacco Use Status: Former Tobacco user Quit Date: 7 yrs ago Smoked in Last 30 Days: No Use of substances other than those prescribed or required for medical reasons: No Substance Use Type: Marijuana Advance Directives: No Advance Directives Information Provided: Yes service: No Current occupational status: disabled 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 Blood pressure normal. Heart rate normal. Respiration rate normal. Temperature normal. Oxygen saturation normal. Appearance: Alert. Oriented X3. No acute distress. Head: Normal external exam. Normocephalic. Atraumatic. No Goodrich signs noted. No raccoon eyes noted Eyes: PERRLA. EOMI. Conjunctiva and sclera normal. Eyelids normal. ENT: TM's Normal. Pharynx normal. Uvula midline. Moist mucous membranes. No trismus noted. No drooling noted. No muffled voice noted. Neck: Normal inspection. Neck supple. FROM. No adenopathy. Thyroid Normal. No meningeal signs. No neck mass noted. CVS: Normal heart rate and rhythm. Heart sound normal. No murmurs noted. Pulses normal throughout. Respiratory: No respiratory distress. Painless inspiration. Breath sounds normal. No wheezes/rales/rhonchi noted. Chest nontender. No accessory muscle usage noted or decreased air movement noted. Abdomen: Soft and nontender. Bowel sounds normal in all 4 quadrants. No distention noted. No organomegaly noted. No visible injury noted. Back: No CVA tenderness. Full range of motion noted. Skin: Skin warm and dry. Normal skin color. Normal skin turgor. No rashes/lesions/lacerations noted. Extremities: No lower extremity edema. Extremities exhibit normal range of motion. Extremities nontender. Neuro: Oriented X 3. Cranial nerve exam: II-XII are grossly intact No motor deficit. No sensory deficit. Reflexes normal. Course Course Course Narrative: 47-year-old female liver cirrhosis due to SERVIN here for ascites patient is thrombocytopenic there is no emergency indication for emergent paracentesis at this point will admit the patient for acute on chronic renal failure. Medications Administered Discontinued Medications Generic Name Dose Route Start Last Admin Trade Name Freq PRN Reason Stop Dose Admin Albumin Human 100 mls @ 100 mls/hr 06/21/22 15:16 06/21/22 16:26 Kedbumin 25 % IV 06/21/22 16:15 Infused ONCE ONE Infusion Medical Decision Making Differential Diagnosis Differential Diagnoses: The differential diagnosis associated with the presentation includes (Thrombocytopenia, coagulopathy, liver cirrhosis due to SERVIN, acute on chronic renal failure.) Admission/Observation Consideration of admission/observation: Escalation of care including admission/observation considered Consult Healthcare Provider Management of the patient was discussed with: Hospitalist Lab Data MDM Lab Attestation statement: I reviewed the patient's lab results. 06/21/22 15:43 06/21/22 15:43 Labs: Lab Results 06/21/22 06/21/22 06/21/22 Range/Units 15:43 15:43 15:43 WBC 5.4 (4.8-10.8) X10*3/uL RBC 3.05 L (4.20-5.50) X10*6/uL Hgb 9.7 L (12.0-16.0) g/dl Hct 29.6 L (37.0-47.0) % MCV 97.0 (80.0-98.0) fL MCH 31.8 (27.0-33.0) pg MCHC 32.8 (31.0-35.0) g/dl RDW 16.3 H (11.0-16.0) % Plt Count 44 L (160-400) X10*3/uL MPV 11.4 (9.4-12.3) fL Immature Gran % (Auto) 0.2 (0.0-0.4) % Neut % (Auto) 74.0 H (45-73) % Lymph % (Auto) 10.2 L (20-40) % [place] % (Auto) 11.5 H (2-11) % Eos % (Auto) 3.2 (0-4) % Baso % (Auto) 0.9 (0-2) % Lymph # (Auto) 0.6 L (1.2-4.9) X10*3/uL [place] # (Auto) 0.6 (0.1-1.2) X10*3/uL Eos # (Auto) 0.2 (0.0-0.4) X10*3/uL Baso # (Auto) 0.1 (0.0-0.2) X10*3/uL Abs Immat Gran (auto) 0.01 (0.00-0.03) X10*3/uL Absolute Neuts (auto) 4.0 (2.0-8.3) x10*3/uL Absolute Nucleated RBC 0.000 (0.0-0.012) X10*3/uL Nucleated RBC % (auto) 0.0 (0.0-0.2) /100WBC Smear Tech's Comments VERIFIED PT 16.6 H (10.0-13.1) SEC INR 1.4 H (0.9-1.1) APTT 33.6 (26.0-36.4) SEC Sodium 132 L (135-145) mmol/L Potassium 3.7 (3.3-5.1) mmol/L Chloride 92 L (96-108) mmol/L Carbon Dioxide 27 (22-29) mmol/L Anion Gap 17 (12-20) BUN 38 H (9-16) mg/dL Creatinine 2.00 H (0.5-1.4) mg/dL Estim Creat Clear Calc 47.7 Estimated GFR 27 Random Glucose 65 (60-115) mg/dL Calcium 7.7 L (8.4-10.2) mg/dL Chronic Conditions Patient?s care impacted by: Other (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 due to SERVIN) Discharge Plan Discharge Clinical Impression: Acute on chronic kidney failure, Ascites, 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 Patient Disposition: Admitted As Inpatient
[2022-06-21] MEDS: Albumin Human 25 % 100 ML IV ×2 (15:28→17:36)
[2022-06-21 15:51] LABS: Hematocrit 29.6 % (37.0-47.0); PLT CLUMP 1; Red Blood Count 3.05 X10*6/uL (4.20-5.50); SCAN SMEAR FLAG 1
[2022-06-21 15:53] LABS: Basophils Absolute Auto 0.1 X10*3/uL (0.0-0.2); Basophils Percent Auto 0.9 % (0-2); Eosinophils Absolute Auto 0.2 X10*3/uL (0.0-0.4); Eosinophils Percent Auto 3.2 % (0-4); Hemoglobin 9.7 g/dl (12.0-16.0); Imm Gran Abs Auto 0.01 X10*3/uL (0.00-0.03); Imm Gran Pct Auto 0.2 % (0.0-0.4); Lymphocytes Absolute Auto 0.6 X10*3/uL (1.2-4.9); Lymphocytes Percent Auto 10.2 % (20-40); MANUAL DIFF FLAG SCAN; Mean Corpuscular HGB Conc 32.8 g/dl (31.0-35.0); Mean Corpuscular Hemoglobin 31.8 pg (27.0-33.0); Mean Platelet Volume 11.4 fL (9.4-12.3); Monocytes Absolute Auto 0.6 X10*3/uL (0.1-1.2); Monocytes Percent Auto 11.5 % (2-11); Red Cell Distribution Width 16.3 % (11.0-16.0)
[2022-06-21 15:54] LABS: White Blood Count 5.4 X10*3/uL (4.8-10.8)
[2022-06-21 15:55] LABS: INTERNATIONAL NORM RATIO 1.4 (0.9-1.1); Platelet Count 44 X10*3/uL (160-400); Prothrombin Time 16.6 SEC (10.0-13.1)
[2022-06-21 15:58] LABS: Partial Thromboplastin Time 33.6 SEC (26.0-36.4)
[2022-06-21 15:59] LABS: Anion Gap 17 (12-20); Blood Urea Nitrogen 38 mg/dL (9-16); Calcium 7.7 mg/dL (8.4-10.2); Carbon Dioxide 27 mmol/L (22-29); Chloride 92 mmol/L (96-108); Creatinine Clr Calc Pharmacy 47.7; Estimated Glomerular Filt Rate 27; Glucose Random 65 mg/dL (60-115); Potassium 3.7 mmol/L (3.3-5.1); Sodium 132 mmol/L (135-145)
[2022-06-21 16:15] LABS: SLIDE REVIEW VERIFIED
--- NOTE | 2022-06-21 16:26 | P.HPHOSP_ITS ---
History of Present Illness Date of Service: 06/21/22 Attending physician on admission: Marilee Tejeda Chief Complaint: Abdominal distension 47-year-old female with history of uncontrolled insulin-dependent type 2 diabetes, hyperlipidemia, hypertension, liver cirrhosis secondary to SERVIN requi ring frequent paracentesis, chronic thrombocytopenia, AMY, PCOS with acromegaly, nontoxic multinodular goiter, and asthma presented to the ED for evaluation of abdominal distension. She denies any abdominal pain, nausea, vomiting, diarrhea confusion, or lightheadedness. However she has been experiencing dyspnea on exertion and occasional shortness of breath at rest. Her legs are significantly swollen making it difficult for her to walk and she feels weak we with tingling in the feet bilaterally which has been chronic. She was recently discharged on 06/08 and underwent paracentesis with 7.5 L removed which was negative for SBP. She does continue on spironolactone and Lasix and does have follow-up later in the month with a transplant center in [place] and follows outpatient with Dr. Verma. During the admission, blood cultures were positive for MSSA and she was started on IV Ancef to be completed on 07/01/2022 followed by Levaquin 500 mg 3 times weekly. In the ED, blood pressure soft, vitals otherwise stable. No leukocytosis. Stable normocytic anemia with H/H 9.7/29.6%. Platelets 84168. Creatinine 2.00, baseline 0.93, BUN 38. Sodium 132, potassium 3.7, chloride 92, CO2 27. In the ED received albumin. 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 Morbid obesity Non-toxic multinodular goiter AMY (obstructive sleep apnea) PCOS (polycystic ovarian syndrome) Status post abdominal paracentesis Family History Father Unknown family medical history Mother Hx of type 1 diabetes mellitus Surgical History Hx of colonoscopy Hx of endoscopy Social History Household Members: Spouse Housing: House Do you presently have visiting nurse or other home services: No Alcohol intake: never Patient Tobacco Use Status: Former Tobacco user Quit Date: 7 yrs ago Smoked in Last 30 Days: No Use of substances other than those prescribed or required for medical reasons: No Substance Use Type: Marijuana Advance Directives: No Advance Directives Information Provided: Yes service: No Current occupational status: disabled 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 Meds Allergies Allergy/AdvReac Type Severity Reaction Status Date / Time ibuprofen [From MOTRIN] Allergy Intermediate RASH Verified 06/16/22 13:24 penicillin V Allergy Mild hives Verified 06/16/22 13:24 codeine Allergy Unknown Verified 06/16/22 13:24 Rx- listed on H&P lidocaine Allergy Blister Verified 06/16/22 13:24 Home Medications Medication Instructions Recorded Confirmed Last Taken Type albuterol sulfate 90 mcg/actuation 2 puff inhalation Q6H PRN Wheezing 08/16/20 05/31/22 3 Days Ago History aerosol inhaler (ProAir HFA) ~05/28/22 blood sugar diagnostic (FreeStyle #10 ea 08/16/20 08/16/20 Unknown History Lite Strips) fluticasone propionate 220 2 puff inhalation BID 08/16/20 05/31/22 3 Days Ago History mcg/actuation HFA aerosol inhaler ~05/28/22 (Flovent HFA) lancets 28 gauge (FreeStyle #100 ea 08/16/20 08/16/20 Unknown History Lancets) gabapentin 300 mg capsule 300 mg PO BEDTIME pain 11/04/21 05/31/22 3 Days Ago History ~05/28/22 levothyroxine 50 mcg tablet 50 mcg PO DAILY@0600 11/04/21 05/31/22 3 Days Ago History ~05/28/22 dulaglutide 1.5 mg/0.5 mL 1.5 mg subcut MO@0904/28/22 05/31/22 3 Days Ago History subcutaneous pen injector ~05/28/22 (Trulicity) vitamin A 10,000 unit capsule 1 cap PO DAILY 04/28/22 05/31/22 3 Days Ago History ~05/28/22 insulin glargine U-300 conc 300 80 unit subcut BEDTIME 04/30/22 05/31/22 3 Days Ago History unit/mL (3 mL) subcutaneous pen ~05/28/22 (Fadi Max U-300 SoloStar) acetaminophen 325 mg tablet 2 tab PO Q8H PRN pain 05/31/22 05/31/22 3 Days Ago History ~05/28/22 docusate sodium 100 mg capsule 1 cap PO BID PRN constipation 05/31/22 05/31/22 3 Days Ago History ~05/28/22 insulin lispro 100 unit/mL 26 unit subcut TIDAC 05/31/22 05/31/22 3 Days Ago History subcutaneous pen ~05/28/22 ipratropium 0.5 mg-albuterol 3 mg 1 amp inhalation QID PRN dyspnea 05/31/22 05/31/22 3 Days Ago History (2.5 mg base)/3 mL nebulization ~05/28/22 soln lisinopril 2.5 mg tablet 1 tab PO DAILY 05/31/22 05/31/22 3 Days Ago History ~05/28/22 loratadine 10 mg tablet 1 tab PO DAILY PRN Allergy Symptoms 05/31/22 05/31/22 3 Days Ago History ~05/28/22 sennosides 8.6 mg tablet (senna) 8.6 mg PO DAILY PRN Constipation 05/31/22 05/31/22 3 Days Ago History ~05/28/22 vitamin E (dl, acetate) 180 mg 1 cap PO BID 05/31/22 05/31/22 3 Days Ago History (400 unit) capsule ~05/28/22 Physical Exam Vital Signs and Narrative: Vital Signs: Last Vital Signs Temp 98.2 F 06/21/22 14:30 Pulse 79 06/21/22 14:30 Resp 18 06/21/22 14:30 BP 107/57 L 06/21/22 14:30 Pulse Ox 96 06/21/22 14:30 O2 Del Method 06/21/22 14:30 BMI result Body Mass Index 54.1 Constitutional - Awake and Alert, No apparent distress Eyes - PERRLA, EOMI Cardiovascular - S1S2, RRR, No edema Respiratory - Normal lung expansion, Normal respiratory effort, No respiratory distress, CTA bilaterally Gastrointestinal - NT, +BS; No rebound or guarding. significant distension with positive fluid wave Extremities - no calf tenderness bilaterally, no swelling Skin - Warm/Dry Neurological - Alert & oriented x3, CN II-XII in tact, 5/5 strength BUE and BLE Psychological - Appropriate affect Results Labs 06/21/22 15:43 06/21/22 15:43 Labs: Laboratory Results - last 24 hr 06/21/22 06/21/22 06/21/22 15:43 15:43 15:43 MCV 97.0 MCH 31.8 MCHC 32.8 RDW 16.3 H Plt Count 44 L MPV 11.4 Immature Gran % (Auto) 0.2 Neut % (Auto) 74.0 H Lymph % (Auto) 10.2 L [place] % (Auto) 11.5 H Eos % (Auto) 3.2 Baso % (Auto) 0.9 Lymph # (Auto) 0.6 L [place] # (Auto) 0.6 Eos # (Auto) 0.2 Baso # (Auto) 0.1 Abs Immat Gran (auto) 0.01 Absolute Neuts (auto) 4.0 Absolute Nucleated RBC 0.000 Nucleated RBC % (auto) 0.0 Smear Tech's Comments VERIFIED PT 16.6 H INR 1.4 H APTT 33.6 Anion Gap 17 Estim Creat Clear Calc 47.7 Estimated GFR 27 Random Glucose 65 Calcium 7.7 L Assessment and Plan (1) Acute on chronic kidney failure: Status: Acute (2) 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: Status: Acute Plan 47-year-old female with history of uncontrolled insulin-dependent type 2 diabetes, hyperlipidemia, hypertension, liver cirrhosis secondary to SERVIN requiring frequent paracentesis, chronic thrombocytopenia, AMY, PCOS with acromegaly, nontoxic multinodular goiter, MSSA bacteremia currently being treated with cefazolin, and asthma admitted for anasarca with DULCE #SERVIN cirrhosis with ascites, thrombcytopenia -s/p paracentesis 7.5L 06/02/22 -Therapeutic paracentesis ordered, paracentesis labs ordered -fluid restrictions -high-protein diet -Hold lasix , aldactone in the setting of DULCE to prevent further volume depletion -Give albumin 25% q6h x 4 bags -has outpatient follow-up with Transplant Clinic in [place] # acute kidney injury-likely hepatorenal related to hypovolemia -hold diuretics at this time -give albumin as above -Resume diuretics am if renal function improved -Appreciate neprhology input #MSSA? bacteremia possibly from cellulitis- present on admission -ancef 4 weeks (end 07/01/22) then levaquin 500 3 times weekly -has midline #chronic hyponatremia -Likely hypervolemic hyponatremia from cirrhosis -fluid restrict #type 2 diabetes -SSI, Lantus -Diabetic diet #morbid obesity -weight loss advised #hypothyroidism ?-levothyroxine #HTN -lisinopril, hold aldactone # moderate persistent asthma -without acute exacerbation -continue home inhalers DVT ppx: SCDs - thrombocytopenia Full code Patient requires inpatient stay of at least 2 midnights for management of ascites requiring paracentesis with DULCE requiring close monitoring of renal function and electrolyte levels Time Spent With Patient Time: Total time managing care of this patient today ____ minutes. Quality Stroke Does the patient have a stroke diagnosis?: No VTE Prior VTE?: No VTE Risk Level:: Medical - moderate - high VTE Device Contraindication: N/A - Device Ordered VTE Drug Contraindication: Treatment Not Indicated
[2022-06-21] MEDS: ceFAZolin Sodium/Dextrose,Iso 2 GM/50 ML PIGGYBACK IV (18:10)
--- NOTE | 2022-06-21 18:16 | PHA.MEDREC ---
Pharmacy Consult ? Medication Reconciliation Pharmacy has completed the medication reconciliation. med rec completed. spoke with patient through an american sign language interpreter.
[2022-06-21 20:38] LABS: Glucose, Whole Blood 72 mg/dL (60-115)
[2022-06-21 22:27] LABS: COVID-19 Test Negative (Negative); IDNOW Serial# 9DB6401D
[2022-06-21 23:52] LABS: Glucose, Whole Blood 108 mg/dL (60-115)
[2022-06-22] VITALS (10 sets, daily range): BP systolic 86–97; BP diastolic 42–66; PULSE 68–108; RESP 16–20; TEMP 36.4–37.4; O2SAT 90–99; BMI 49.6
--- NOTE | 2022-06-22 00:54 | PC.NURSE ---
Dr Corbin made aware pt blood sugar [address] Shaquille diego to administer lantus 45 units per Jun.
[2022-06-22] MEDS: Gabapentin 300 MG CAPSULE PO ×2 (00:56→20:20)
[2022-06-22] MEDS: Insulin Glargine,Hum.rec.anlog 100 UNIT/ML 10 ML VIAL 45 UNIT SUBCUT ×2 (00:56→20:20)
[2022-06-22] MEDS: 0.9 % Sodium Chloride Flush 3 ML SYRINGE IVFLUSH ×2 (00:56→20:21)
[2022-06-22] MEDS: Albumin Human 25 % 100 ML IV ×4 (00:56→18:16)
[2022-06-22] MEDS: Albuterol Sulfate 90 MCG 8 GM INHALER 2 PUFF INHALE ×3 (05:40→17:50)
[2022-06-22 05:52] LABS: Glucose, Whole Blood 115 mg/dL (60-115)
[2022-06-22 06:05] LABS: MANUAL DIFF FLAG NO
[2022-06-22 06:09] LABS: Basophils Percent Auto 0.6 % (0-2); Eosinophils Absolute Auto 0.1 X10*3/uL (0.0-0.4); Eosinophils Percent Auto 3.9 % (0-4); Hematocrit 24.6 % (37.0-47.0); Hemoglobin 8.2 g/dl (12.0-16.0); Imm Gran Abs Auto 0.02 X10*3/uL (0.00-0.03); Imm Gran Pct Auto 0.6 % (0.0-0.4); Lymphocytes Absolute Auto 0.5 X10*3/uL (1.2-4.9); Lymphocytes Percent Auto 13.2 % (20-40); Mean Corpuscular HGB Conc 33.3 g/dl (31.0-35.0); Mean Corpuscular Hemoglobin 31.9 pg (27.0-33.0); Mean Corpuscular Volume 95.7 fL (80.0-98.0); Mean Platelet Volume 11.3 fL (9.4-12.3); Monocytes Absolute Auto 0.4 X10*3/uL (0.1-1.2); Monocytes Percent Auto 11.8 % (2-11); Neutrophils Absolute Auto 2.5 x10*3/uL (2.0-8.3); Neutrophils Percent Auto 69.9 % (45-73); Red Blood Count 2.57 X10*6/uL (4.20-5.50); Red Cell Distribution Width 16.5 % (11.0-16.0); White Blood Count 3.6 X10*3/uL (4.8-10.8)
[2022-06-22 06:10] LABS: Platelet Count 33 X10*3/uL (160-400)
[2022-06-22 06:16] LABS: INTERNATIONAL NORM RATIO 1.7 (0.9-1.1); Prothrombin Time 19.8 SEC (10.0-13.1)
[2022-06-22 06:28] LABS: Anion Gap 14 (12-20); Blood Urea Nitrogen 38 mg/dL (9-16); Calcium 7.9 mg/dL (8.4-10.2); Carbon Dioxide 28 mmol/L (22-29); Chloride 95 mmol/L (96-108); Estimated Glomerular Filt Rate 29; Glucose Random 104 mg/dL (60-115); Potassium 4.1 mmol/L (3.3-5.1); Sodium 133 mmol/L (135-145)
[2022-06-22 07:17] LABS: Glucose, Whole Blood 98 mg/dL (60-115)
[2022-06-22] MEDS: ceFAZolin Sodium/Dextrose,Iso 2 GM/50 ML PIGGYBACK IV ×2 (07:25→17:24)
[2022-06-22] MEDS: Levothyroxine Sodium 50 MCG TABLET PO (07:26)
[2022-06-22] MEDS: Omeprazole 40 MG CAPSULE.DR PO (07:26)
[2022-06-22] MEDS: lisinopriL 2.5 MG TABLET PO (08:42)
[2022-06-22] MEDS: Vitamin E (Dl,Tocopheryl Acet) 180 MG (400 UNIT) CAPSULE PO ×2 (09:15→20:20)
[2022-06-22] MEDS: Zinc Sulfate 220 MG CAPSULE PO (09:15)
[2022-06-22] MEDS: Fluticasone Propionate 250 MCG BLST.W.DEV 2 PUFF INHALE ×2 (09:20→19:28)
[2022-06-22] MEDS: 0.9 % Sodium Chloride 500 ML IV ×2 (10:58→12:13)
[2022-06-22] MEDS: Lidocaine HCl 1 % MPF 5 ML VIAL SUBCUT (11:32)
--- NOTE | 2022-06-22 11:33 | PC.NURSE ---
pt presently getting paracentesis, rn called into room by Dr. Freedman for pt blood pressure dropping into low 90s/high 80s systolic. pt denies dizziness or chest pain. pt already received 25g albumin. pt medicated per EMAR with 500 NS. pressures improving.
--- NOTE | 2022-06-22 11:59 | HO.PM.IMPN ---
Subjective Subjective Date of Service: 06/22/22 Interval History: Seen in follow up for ascites, DULCE Interval history: Paracentesis performed by radiologist today draining 8.5L monae fluid. Gram stain negative. reports improvement in sob, bales. No abd pain, n,v. Review of Systems Review of Systems: Yes all other systems are reviewed and are negative Physical Exam Vital Signs: Vital Signs: Last Vital Signs Temp 98.2 F 06/21/22 14:30 Pulse 101 H 06/22/22 11:34 Resp 18 06/22/22 11:34 BP 97/52 L 06/22/22 07:06 Pulse Ox 95 06/22/22 07:06 O2 Del Method 06/22/22 07:06 BMI result Body Mass Index 54.1 Constitutional - Awake and Alert, No apparent distress Eyes - PERRLA, EOMI Cardiovascular - S1S2, RRR, No edema Respiratory - Normal lung expansion, Normal respiratory effort, No respiratory distress, CTA bilaterally Gastrointestinal - NT, +BS; No rebound or guarding. Moderately distended with slight fluid wave Extremities - no calf tenderness bilaterally, no swelling Skin - Warm/Dry Neurological - Alert & oriented x3 Psychological - Appropriate affect Objective Data Active Medications Acetaminophen (Acetaminophen 325 Mg Tablet) 650 mg PO Q6H PRN PRN Reason: Pain, Mild (Pain Scale 1-3) Albuterol Sulfate (Albuterol Sulfate 90 Mcg 8 Gm Inhaler) 2 puff INHALE RQ6H [facility] Last Admin: 06/22/22 11:33 Dose: 2 puff Documented By: ELIZABET Albuterol Sulfate 2.5 mg/ (Ipratropium [place] 0.5 mg) 0 mg INHALE QID PRN PRN Reason: Shortness of Breath/Wheezing Dextrose (Dextrose 50 % 25 Gm/50 Ml Syringe) 25 gm IVPUSH Q15M PRN; Protocol PRN Reason: per Hypoglycemia Standing Ord. Docusate Sodium (Docusate Sodium 100 Mg Capsule) 100 mg PO DAILY PRN PRN Reason: Constipation Fluticasone Propionate (Fluticasone Propionate 250 Mcg Blst.W.Dev) 2 puff INHALE RBID [facility] Last Admin: 06/22/22 09:20 Dose: 2 puff Documented By: SERGIO Gabapentin (Gabapentin 300 Mg Capsule) 300 mg PO BEDTIME [facility] Last Admin: 06/22/22 00:56 Dose: 300 mg Documented By: CHUCK Glucose (Glucose Gel 15 Gm Gel..Gram.) 15 gm PO Q15M PRN; Protocol PRN Reason: per Hypoglycemia Standing Ord. Cefazolin Sodium/Dextrose (Ancef) 2 gm in 50 mls @ 100 mls/hr IV Q12H [facility] Last Infusion: 06/22/22 08:56 Dose: 0 mls/hr Documented By: SERGIO Albumin Human (Kedbumin 25 %) 100 mls @ 100 mls/hr IV Q6H [facility] Stop: 06/22/22 13:59 Last Infusion: 06/22/22 11:32 Dose: 0 mls/hr Documented By: SERGIO Insulin Glargine (Insulin Glargine,Hum.Rec.Anlog 100 Unit/Ml 10 Ml Vial) 45 unit SUBCUT BEDTIME [facility] Last Admin: 06/22/22 00:56 Dose: 45 unit Documented By: CHUCK Insulin Human Lispro (Insulin Lispro 100 Unit/Ml 3 Ml Vial) 0 unit SUBCUT QIDACHS [facility]; Protocol Last Admin: 06/22/22 07:17 Dose: Not Given Documented By: SERGIO Non-Admin Reason: No Insulin Coverage Lactulose (Lactulose 20 Gm/30 Ml Solution) 20 gm PO DAILY PRN PRN Reason: Constipation Levothyroxine Sodium (Levothyroxine Sodium 50 Mcg Tablet) 50 mcg PO DAILY@0600 [facility] Last Admin: 06/22/22 07:26 Dose: 50 mcg Documented By: SERGIO Lisinopril (Lisinopril 2.5 Mg Tablet) 2.5 mg PO DAILY [facility]; Protocol Last Admin: 06/22/22 08:42 Dose: 2.5 mg Documented By: SERGIO Loratadine (Loratadine 10 Mg Tablet) 10 mg PO DAILY PRN PRN Reason: Allergy Symptoms Midodrine (Midodrine Hcl 5 Mg Tablet) 5 mg PO TID [facility] Non-Formulary Medication (Vitamin A) 1 cap PO DAILY [facility] Omeprazole (Omeprazole 40 Mg Capsule.) 40 mg PO DAILY@0630 [facility] Last Admin: 06/22/22 07:26 Dose: 40 mg Documented By: SERGIO Ondansetron HCl (Ondansetron Hcl 4 Mg/2 Ml Vial) 4 mg IVPUSH Q8H PRN PRN Reason: Nausea and Vomiting Pharmacy Consult (Consult Rx Perform Med Rec) 1 each MISCELLANE ONCE PRN PRN Reason: Consult order Sodium Chloride (0.9 % Sodium Chloride Flush 3 Ml Syringe) 3 ml IVFLUSH QSHIFT [facility] Last Admin: 06/22/22 08:30 Dose: Not Given Documented By: SERGIO Non-Admin Reason: Med Not Available Vitamin E (Vitamin E (Dl,Tocopheryl Acet) 180 Mg (400 Unit) Capsule) 180 mg PO BID [facility] Last Admin: 06/22/22 09:15 Dose: 180 mg Documented By: SERGIO Zinc Sulfate (Zinc Sulfate 220 Mg Capsule) 220 mg PO DAILY [facility] Last Admin: 06/22/22 09:15 Dose: 220 mg Documented By: SERGIO Labs 06/22/22 05:51 06/22/22 05:51 Labs: Laboratory Results - last 24 hr 06/21/22 06/21/22 06/21/22 15:43 15:43 15:43 MCV 97.0 MCH 31.8 MCHC 32.8 RDW 16.3 H Plt Count 44 L MPV 11.4 Immature Gran % (Auto) 0.2 Neut % (Auto) 74.0 H Lymph % (Auto) 10.2 L [place] % (Auto) 11.5 H Eos % (Auto) 3.2 Baso % (Auto) 0.9 Lymph # (Auto) 0.6 L [place] # (Auto) 0.6 Eos # (Auto) 0.2 Baso # (Auto) 0.1 Abs Immat Gran (auto) 0.01 Absolute Neuts (auto) 4.0 Absolute Nucleated RBC 0.000 Nucleated RBC % (auto) 0.0 Smear Tech's Comments VERIFIED PT 16.6 H INR 1.4 H APTT 33.6 Anion Gap 17 Estim Creat Clear Calc 47.7 Estimated GFR 27 POC Glucose Random Glucose 65 Calcium 7.7 L COVID-19 (KIYA) COVID-19 Clin Com 06/21/22 06/21/22 06/21/22 20:29 22:05 23:47 MCV MCH MCHC RDW Plt Count MPV Immature Gran % (Auto) Neut % (Auto) Lymph % (Auto) [place] % (Auto) Eos % (Auto) Baso % (Auto) Lymph # (Auto) [place] # (Auto) Eos # (Auto) Baso # (Auto) Abs Immat Gran (auto) Absolute Neuts (auto) Absolute Nucleated RBC Nucleated RBC % (auto) Smear Tech's Comments PT INR APTT Anion Gap Estim Creat Clear Calc Estimated GFR POC Glucose 72 108 Random Glucose Calcium COVID-19 (KIYA) Negative COVID-19 Clin Com See Note 06/22/22 06/22/22 06/22/22 05:30 05:51 05:51 MCV 95.7 MCH 31.9 MCHC 33.3 RDW 16.5 H Plt Count 33 L MPV 11.3 Immature Gran % (Auto) 0.6 H Neut % (Auto) 69.9 Lymph % (Auto) 13.2 L [place] % (Auto) 11.8 H Eos % (Auto) 3.9 Baso % (Auto) 0.6 Lymph # (Auto) 0.5 L [place] # (Auto) 0.4 Eos # (Auto) 0.1 Baso # (Auto) 0.0 Abs Immat Gran (auto) 0.02 Absolute Neuts (auto) 2.5 Absolute Nucleated RBC 0.000 Nucleated RBC % (auto) 0.0 Smear Tech's Comments PT INR APTT Anion Gap 14 Estim Creat Clear Calc 51.0 Estimated GFR 29 POC Glucose 115 Random Glucose 104 Calcium 7.9 L COVID-19 (KIYA) COVID-19 Likeable Local Com 06/22/22 06/22/22 05:51 07:05 MCV MCH MCHC RDW Plt Count MPV Immature Gran % (Auto) Neut % (Auto) Lymph % (Auto) [place] % (Auto) Eos % (Auto) Baso % (Auto) Lymph # (Auto) [place] # (Auto) Eos # (Auto) Baso # (Auto) Abs Immat Gran (auto) Absolute Neuts (auto) Absolute Nucleated RBC Nucleated RBC % (auto) Smear Tech's Comments PT 19.8 H INR 1.7 H APTT Anion Gap Estim Creat Clear Calc Estimated GFR POC Glucose 98 Random Glucose Calcium COVID-19 (KIYA) COVID-19 Clin Com Assessment and Plan (1) Acute on chronic kidney failure: Status: Acute (2) 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: Status: Acute Plan 47-year-old female with history of uncontrolled insulin-dependent type 2 diabetes, hyperlipidemia, hypertension, liver cirrhosis secondary to SERVIN requiring frequent paracentesis, chronic thrombocytopenia, AMY, PCOS with acromegaly, nontoxic multinodular goiter, MSSA bacteremia currently being treated with cefazolin, and asthma admitted for anasarca with DULCE #SERVIN cirrhosis with? ascites, thrombcytopenia -s/p paracentesis 8.5L with symptomatic improvement -Cultures pending -fluid restrictions -high-protein diet -Hold lasix , aldactone in the setting of DULCE to prevent further volume depletion -has outpatient follow-up with [facility]plant [facility] in [place] #Hypotension- related to ascites/paracentesis- resolving -Given 500ml bolus post procedure -albumin x 2 -start midodrine 5mg TID # acute kidney injury-likely hepatorenal related to hypovolemia -Creat improving -hold diuretics at this time. Consider resuming am -give albumin as above -Appreciate neprhology input #MSSA? bacteremia possibly from cellulitis- present on admission -ancef 4 weeks (end 07/01/22) then levaquin 500 3 times weekly -has midline #chronic hyponatremia -Likely hypervolemic hyponatremia from cirrhosis -fluid restrict #type 2 diabetes -SSI, Lantus -Diabetic diet #morbid obesity -weight loss advised #hypothyroidism ?-levothyroxine #HTN -lisinopril, hold aldactone # moderate persistent asthma -without acute exacerbation -continue home inhalers DVT ppx: SCDs - thrombocytopenia Full code Patient requires ongoing inpt stay for management of ascites requiring paracentesis with DULCE requiring close monitoring of renal function and electrolyte levels Time Spent With Patient Time: Total time managing care of this patient today ____ minutes. Quality Stroke Does the patient have a stroke diagnosis?: No VTE Prior VTE?: No VTE Risk Level:: Medical - moderate - high VTE Device Contraindication: N/A - Device Ordered VTE Drug Contraindication: Treatment Not Indicated
[2022-06-22] MEDS: Midodrine HCl 5 MG TABLET PO ×2 (12:07→20:20)
[2022-06-22 13:43] LABS: Glucose, Whole Blood 118 mg/dL (60-115)
[2022-06-22 15:26] LABS: MN% 77.6 %; PMN% 22.4 %; WBC Peritoneal Fluid 0.113 X10*3/uL
[2022-06-22 15:27] LABS: RBC Peritoneal Fluid < 0.002 X10*6/uL
[2022-06-22 15:55] LABS: BF Shift QC OK YES; Lymphocyte Peritoneal Fl 9 %; Monocytes Peritoneal Fl 79 %; Neutrophils Peritoneal Fluid 11 %; Other Peritioneal Fl 9 %
--- NOTE | 2022-06-22 16:25 | MHC.CM.PN ---
CM MET WITH PT AND S/O AT BEDSIDE THEY REPORT HE ASSISTS HER WITH CARE PRN SHE HAS [facility] 2X/WEEK SHE DOES NOT USE DME SHE IS COVID VAX + + HCP PCP: [facility] VIA [facility]
[2022-06-22] MEDS: Acetaminophen 325 MG TABLET 650 MG PO (16:39)
[2022-06-22 17:18] LABS: Glucose, Whole Blood 181 mg/dL (60-115)
[2022-06-22] MEDS: Insulin Lispro 100 UNIT/ML 3 ML VIAL SUBCUT ×2 (17:24→20:20)
[2022-06-22 18:01] LABS: Albumin Peritoneal Fluid 0.4 GM/DL
[2022-06-22 20:01] LABS: Glucose, Whole Blood 158 mg/dL (60-115)
[2022-06-22] MEDS: ondansetron HCL 4 MG/2 ML VIAL IVPUSH (20:20)
[2022-06-23] VITALS (17 sets, daily range): BP systolic 87–132; BP diastolic 47–61; PULSE 82–102; RESP 16–24; TEMP 36.7–37.3; O2SAT 90–97
[2022-06-23 00:20] LABS: Sodium Urine Random < 20.0 mmol/L
[2022-06-23] MEDS: Albuterol Sulfate 90 MCG 8 GM INHALER 2 PUFF INHALE ×3 (00:26→22:44)
[2022-06-23 00:30] LABS: Total Protein Urine Random 89 mg/dL (<12)
[2022-06-23] MEDS: Albumin Human 25 % 100 ML IV ×6 (00:31→22:42)
--- NOTE | 2022-06-23 02:01 | CONS_ITS ---
DATE OF SERVICE: 06/22/2022 REASON FOR CONSULTATION: I was asked to see patient to assist in evaluation and management of patient's acute kidney injury in the setting of having underlying liver cirrhosis. HISTORY OF PRESENT ILLNESS: In summary, patient is a 47-year-old female with a history of uncontrolled diabetes, hyperlipidemia, hypertension, liver cirrhosis secondary to SERVIN, requiring recurrent large volume paracentesis along with thrombocytopenia, obstructive sleep apnea. There is mention made of polycystic ovary syndrome with acromegaly, toxic nodular goiter and asthma, who presented to the emergency room complaining of abdominal distention. The patient was recently discharged from the hospital and had 10.5 L removed via paracentesis on June 08. She has been managed with spironolactone and Lasix as an outpatient and is closely followed by Dr. Verma. Apparently, she had blood cultures that were positive for MSSA and she is on Ancef to complete a course by July 01 and then to be on prophylactic antibiotics in form of Levaquin. She has an appointment with the transplant center later this month. She was noted on admission to have a serum creatinine of 2.0, whereas back in May, the creatinine was running 1.0. She had an ultrasound today with large volume paracentesis done, her belly is less distended, and she is feeling better. PAST MEDICAL HISTORY: As outlined above. MEDICATIONS: On admission are noted in the admitting notes. Current medications are noted in the MAR. ALLERGIES: SHE HAS MULTIPLE DRUG ALLERGIES LISTED. SOCIAL HISTORY: She is a nonsmoker, nondrinker. No illicit drug use. FAMILY HISTORY: Notable for diabetes. REVIEW OF SYSTEMS: As noted above. PHYSICAL EXAMINATION: VITAL SIGNS: Blood pressure of 96/40 with a heart rate of 100. HEAD: Atraumatic and normocephalic. NECK: Supple. Mucous membranes moist. LUNGS: Breath sounds bilaterally. CARDIAC: Regular rate and rhythm. ABDOMEN: Distended with what appears to be ascites. EXTREMITIES: Shows 1+ edema. LABORATORY DATA: Hemoglobin of 8.2, hematocrit 24.6, white blood cell count 3.6, platelet count 33,000. Sodium 133, potassium 4.1, chloride 95, bicarb 28, BUN 38, creatinine 1.7. As mentioned, her serum creatinine was 1.0 in May when she was discharged. Back on June 01, she had blood cultures that were positive for Staph aureus. IMPRESSION: 47-YEAR-OLD CIRRHOTIC PATIENT, ADMITTED WITH INCREASING ABDOMINAL DISTENTION, ACUTE KIDNEY INJURY. 1. Acute kidney injury. This is most consistent with hepatorenal syndrome. Our hope is that with aggressive treatment with IV albumin and midodrine and holding her lisinopril, we will get renal recovery. She did have a large volume paracentesis today, which placed her at risk for further worsening renal function. We will hold her diuretics as well. 2. 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. 3. Anemia and thrombocytopenia due to her liver cirrhosis. 4. Mild hyponatremia. Due to nonosmotic increase in ADH from liver cirrhosis. RECOMMENDATIONS: At this time include: 1. Avoid use of JALEESA inhibitors. 2. Start IV albumin and midodrine. If renal function does not get better in the next 24 hours, then add octreotide. 3. Avoid NSAIDs. 4. Continue antibiotics as noted. 5. Obtain urine studies to calculate her fractional excretion of sodium. 6. We will follow the patient closely with the team. MD NOEMI Xie/BRODY / [id number]
[2022-06-23] MEDS: Midodrine HCl 10 MG TABLET PO (04:07)
[2022-06-23] MEDS: Levothyroxine Sodium 50 MCG TABLET PO (05:58)
[2022-06-23] MEDS: Omeprazole 40 MG CAPSULE.DR PO (05:58)
[2022-06-23] MEDS: ceFAZolin Sodium/Dextrose,Iso 2 GM/50 ML PIGGYBACK IV ×2 (06:08→16:59)
[2022-06-23 07:46] LABS: Glucose, Whole Blood 90 mg/dL (60-115)
--- NOTE | 2022-06-23 07:47 | ECG_ITS ---
Test Reason : chest pain Blood Pressure : / mmHG Vent. Rate : 097 BPM Atrial Rate : 097 BPM P-R Int : 160 ms QRS Dur : 072 ms QT Int : 348 ms P-R-T Axes : 035 065 018 degrees QTc Int : 441 ms Normal sinus rhythm Low voltage QRS Cannot rule out Anterior infarct (cited on or before 30-MAY-2022) Abnormal ECG When compared with ECG of 30-MAY-2022 17:48, No significant change was found Referred By: Jeffrey Knapp Electronically Signed By:BRE BOCANEGRA
[2022-06-23 08:09] LABS: MANUAL DIFF FLAG NO
[2022-06-23 08:12] LABS: Basophils Percent Auto 0.7 % (0-2); Eosinophils Absolute Auto 0.2 X10*3/uL (0.0-0.4); Eosinophils Percent Auto 3.6 % (0-4); Hematocrit 21.1 % (37.0-47.0); Imm Gran Abs Auto 0.02 X10*3/uL (0.00-0.03); Imm Gran Pct Auto 0.5 % (0.0-0.4); Lymphocytes Absolute Auto 0.5 X10*3/uL (1.2-4.9); Lymphocytes Percent Auto 12.5 % (20-40); Mean Corpuscular HGB Conc 32.7 g/dl (31.0-35.0); Mean Corpuscular Hemoglobin 32.1 pg (27.0-33.0); Mean Corpuscular Volume 98.1 fL (80.0-98.0); Mean Platelet Volume 10.9 fL (9.4-12.3); Monocytes Absolute Auto 0.6 X10*3/uL (0.1-1.2); Monocytes Percent Auto 14.2 % (2-11); Neutrophils Absolute Auto 2.8 x10*3/uL (2.0-8.3); Neutrophils Percent Auto 68.5 % (45-73); Red Blood Count 2.15 X10*6/uL (4.20-5.50); Red Cell Distribution Width 16.5 % (11.0-16.0); White Blood Count 4.2 X10*3/uL (4.8-10.8)
[2022-06-23 08:21] LABS: Hemoglobin 6.9 g/dl (12.0-16.0); Platelet Count 39 X10*3/uL (160-400)
[2022-06-23 08:51] LABS: Alanine Aminotransferase < 6 U/L (0-31); Albumin Level 3.3 g/dL (3.5-5.0); Alkaline Phosphatase 46 U/L (39-117); Anion Gap 11 (12-20); Aspartate Amino Transferase 19 U/L (5-31); Bilirubin Total 2.7 mg/dL (0.0-1.0); Blood Urea Nitrogen 40 mg/dL (9-16); Carbon Dioxide 31 mmol/L (22-29); Chloride 95 mmol/L (96-108); Creatinine Clr Calc Pharmacy 43.6; Estimated Glomerular Filt Rate 26; Glucose Random 85 mg/dL (60-115); Potassium 4.2 mmol/L (3.3-5.1); Sodium 133 mmol/L (135-145); Total Protein 5.6 g/dL (6.5-8.0)
[2022-06-23] MEDS: Acetaminophen 325 MG TABLET 650 MG PO (10:00)
[2022-06-23] MEDS: Zinc Sulfate 220 MG CAPSULE PO (10:00)
[2022-06-23] MEDS: Midodrine HCl 5 MG TABLET PO (10:00)
[2022-06-23] MEDS: Vitamin E (Dl,Tocopheryl Acet) 180 MG (400 UNIT) CAPSULE PO (10:00)
[2022-06-23] MEDS: ondansetron HCL 4 MG/2 ML VIAL IVPUSH ×3 (11:50→21:19)
--- NOTE | 2022-06-23 11:50 | HO.PM.IMPN ---
Subjective Subjective Date of Service: 06/23/22 Interval History: no acute issues overnight . BP remains soft ..... 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 No rales rhonchi or wheezes Cardio: Other: no S4; positive S1-S2; no S3 murmurs rubs or gallops GI: Other: soft nontender nondistended normoactive bowel sounds Extrem: Other: no edema bilaterally Objective Data Active Medications Acetaminophen (Acetaminophen 325 Mg Tablet) 650 mg PO Q6H PRN PRN Reason: Pain, Mild (Pain Scale 1-3) Last Admin: 06/23/22 10:00 Dose: 650 mg Documented By: CARMEN Albuterol Sulfate (Albuterol Sulfate 90 Mcg 8 Gm Inhaler) 2 puff INHALE RQ6H [facility] Last Admin: 06/23/22 11:01 Dose: Not Given Documented By: JA Non-Admin Reason: Patient Refused Albuterol Sulfate 2.5 mg/ (Ipratropium [place] 0.5 mg) 0 mg INHALE QID PRN PRN Reason: Shortness of Breath/Wheezing Dextrose (Dextrose 50 % 25 Gm/50 Ml Syringe) 25 gm IVPUSH Q15M PRN; Protocol PRN Reason: per Hypoglycemia Standing Ord. Docusate Sodium (Docusate Sodium 100 Mg Capsule) 100 mg PO DAILY PRN PRN Reason: Constipation Fluticasone Propionate (Fluticasone Propionate 250 Mcg Blst.W.Dev) 2 puff INHALE RBID [facility] Last Admin: 06/23/22 07:41 Dose: Not Given Documented By: JA Non-Admin Reason: Patient Refused Gabapentin (Gabapentin 300 Mg Capsule) 300 mg PO BEDTIME [facility] Last Admin: 06/22/22 20:20 Dose: 300 mg Documented By: LISSETT Glucose (Glucose Gel 15 Gm Gel..Gram.) 15 gm PO Q15M PRN; Protocol PRN Reason: per Hypoglycemia Standing Ord. Cefazolin Sodium/Dextrose (Ancef) 2 gm in 50 mls @ 100 mls/hr IV Q12H [facility] Last Infusion: 06/23/22 06:38 Dose: 0 mls/hr Documented By: LISSETT Albumin Human (Kedbumin 25 %) 100 mls @ 100 mls/hr IV Q6H [facility] Stop: 06/24/22 04:59 Last Infusion: 06/23/22 11:03 Dose: 0 mls/hr Documented By: CARMEN Insulin Glargine (Insulin Glargine,Hum.Rec.Anlog 100 Unit/Ml 10 Ml Vial) 45 unit SUBCUT BEDTIME [facility] Last Admin: 06/22/22 20:20 Dose: 45 unit Documented By: LISSETT Insulin Human Lispro (Insulin Lispro 100 Unit/Ml 3 Ml Vial) 0 unit SUBCUT QIDACHS [facility]; Protocol Last Admin: 06/23/22 08:00 Dose: Not Given Documented By: CARMEN Non-Admin Reason: See Note Lactulose (Lactulose 20 Gm/30 Ml Solution) 20 gm PO DAILY PRN PRN Reason: Constipation Levothyroxine Sodium (Levothyroxine Sodium 50 Mcg Tablet) 50 mcg PO DAILY@0600 [facility] Last Admin: 06/23/22 05:58 Dose: 50 mcg Documented By: LISSETT Lisinopril (Lisinopril 2.5 Mg Tablet) 2.5 mg PO DAILY [facility]; Protocol Last Admin: 06/23/22 08:01 Dose: Not Given Documented By: CARMEN Non-Admin Reason: See Note Loratadine (Loratadine 10 Mg Tablet) 10 mg PO DAILY PRN PRN Reason: Allergy Symptoms Midodrine (Midodrine Hcl 5 Mg Tablet) 5 mg PO TID [facility] Last Admin: 06/23/22 10:00 Dose: 5 mg Documented By: CARMEN Non-Formulary Medication (Vitamin A) 1 cap PO DAILY [facility] Omeprazole (Omeprazole 40 Mg Capsule.Dr) 40 mg PO DAILY@0630 [facility] Last Admin: 06/23/22 05:58 Dose: 40 mg Documented By: LISSETT Ondansetron HCl (Ondansetron Hcl 4 Mg/2 Ml Vial) 4 mg IVPUSH Q8H PRN PRN Reason: Nausea and Vomiting Last Admin: 06/23/22 11:50 Dose: 4 mg Documented By: CAMREN Pharmacy Consult (Consult Rx Perform Med Rec) 1 each MISCELLANE ONCE PRN PRN Reason: Consult order Sodium Chloride (0.9 % Sodium Chloride Flush 3 Ml Syringe) 3 ml IVFLUSH QSHIFT [facility] Last Admin: 06/23/22 08:00 Dose: Not Given Documented By: CARMEN Non-Admin Reason: See Note Vitamin E (Vitamin E (Dl,Tocopheryl Acet) 180 Mg (400 Unit) Capsule) 180 mg PO BID [facility] Last Admin: 06/23/22 10:00 Dose: 180 mg Documented By: CARMEN Zinc Sulfate (Zinc Sulfate 220 Mg Capsule) 220 mg PO DAILY [facility] Last Admin: 06/23/22 10:00 Dose: 220 mg Documented By: CARMEN Labs 06/23/22 07:52 06/23/22 07:52 Labs: Laboratory Results - last 24 hr 06/22/22 06/22/22 06/22/22 13:38 15:05 15:05 MCV MCH MCHC RDW Plt Count MPV Immature Gran % (Auto) Neut % (Auto) Lymph % (Auto) [place] % (Auto) Eos % (Auto) Baso % (Auto) Lymph # (Auto) [place] # (Auto) Eos # (Auto) Baso # (Auto) Abs Immat Gran (auto) Absolute Neuts (auto) Absolute Nucleated RBC Nucleated RBC % (auto) Anion Gap Estim Creat Clear Calc Estimated GFR POC Glucose 118 H Random Glucose Calcium Total Bilirubin AST ALT Alkaline Phosphatase Total Protein Albumin U Random Total Protein Ur Random Sodium Peritoneal WBC 0.113 Peritoneal RBC < 0.002 Periton Neutrophils 11 Periton Lymphocytes 9 Peritoneal Monocytes 79 Peritoneal Other Cells 9 Peritoneal Albumin 0.4 Blood Type Antibody Screen Crossmatch 06/22/22 06/22/22 06/22/22 17:15 19:55 23:50 MCV MCH MCHC RDW Plt Count MPV Immature Gran % (Auto) Neut % (Auto) Lymph % (Auto) [place] % (Auto) Eos % (Auto) Baso % (Auto) Lymph # (Auto) [place] # (Auto) Eos # (Auto) Baso # (Auto) Abs Immat Gran (auto) Absolute Neuts (auto) Absolute Nucleated RBC Nucleated RBC % (auto) Anion Gap Estim Creat Clear Calc Estimated GFR POC Glucose 181 H 158 H Random Glucose Calcium Total Bilirubin AST ALT Alkaline Phosphatase Total Protein Albumin U Random Total Protein 89 H Ur Random Sodium Peritoneal WBC Peritoneal RBC Periton Neutrophils Periton Lymphocytes Peritoneal Monocytes Peritoneal Other Cells Peritoneal Albumin Blood Type Antibody Screen Crossmatch 06/22/22 06/23/22 06/23/22 23:50 07:28 07:52 MCV 98.1 H MCH 32.1 MCHC 32.7 RDW 16.5 H Plt Count 39 L MPV 10.9 Immature Gran % (Auto) 0.5 H Neut % (Auto) 68.5 Lymph % (Auto) 12.5 L [place] % (Auto) 14.2 H Eos % (Auto) 3.6 Baso % (Auto) 0.7 Lymph # (Auto) 0.5 L [place] # (Auto) 0.6 Eos # (Auto) 0.2 Baso # (Auto) 0.0 Abs Immat Gran (auto) 0.02 Absolute Neuts (auto) 2.8 Absolute Nucleated RBC 0.000 Nucleated RBC % (auto) 0.0 Anion Gap Estim Creat Clear Calc Estimated GFR POC Glucose 90 Random Glucose Calcium Total Bilirubin AST ALT Alkaline Phosphatase Total Protein Albumin U Random Total Protein Ur Random Sodium < 20.0 Peritoneal WBC Peritoneal RBC Periton Neutrophils Periton Lymphocytes Peritoneal Monocytes Peritoneal Other Cells Peritoneal Albumin Blood Type Antibody Screen Crossmatch 06/23/22 06/23/22 07:52 09:32 MCV MCH MCHC RDW Plt Count MPV Immature Gran % (Auto) Neut % (Auto) Lymph % (Auto) [place] % (Auto) Eos % (Auto) Baso % (Auto) Lymph # (Auto) [place] # (Auto) Eos # (Auto) Baso # (Auto) Abs Immat Gran (auto) Absolute Neuts (auto) Absolute Nucleated RBC Nucleated RBC % (auto) Anion Gap 11 L Estim Creat Clear Calc 43.6 Estimated GFR 26 POC Glucose Random Glucose 85 Calcium 8.0 L Total Bilirubin 2.7 H AST 19 ALT < 6 Alkaline Phosphatase 46 Total Protein 5.6 L Albumin 3.3 L U Random Total Protein Ur Random Sodium Peritoneal WBC Peritoneal RBC Periton Neutrophils Periton Lymphocytes Peritoneal Monocytes Peritoneal Other Cells Peritoneal Albumin Blood Type A Positive Antibody Screen NEGATIVE Crossmatch See Detail Microbiology Microbiology Results: Microbiology 06/22/22 15:05 Gram Stain - Final Peritoneal Fluid Routine Culture - Preliminary No growth to date. Anaerobic Culture - Preliminary No growth to date. Assessment and Plan (1) 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: Status: Acute (2) Hypotension: Status: Acute (3) Acute on chronic kidney failure: Status: Acute (4) MSSA bacteremia: Status: Acute (5) Hyponatremia: Status: Acute Plan 47-year-old female with history of uncontrolled insulin-dependent type 2 diabetes, hyperlipidemia, hypertension, liver cirrhosis secondary to SERVIN requiring frequent paracentesis, chronic thrombocytopenia, AMY, PCOS with acromegaly, nontoxic multinodular goiter, MSSA bacteremia currently being treated with cefazolin, and asthma admitted for anasarca with DULCE. essentially no change in creatinine despite albumin and midodrine 1.SERVIN cirrhosis with/ascites/thrombcytopenia -s/p paracentesis 8.5L with symptomatic improvement(06/22/22) - continues to receive albumin 150 cc/24 hours - if no improvement tomorrow a.m. will start octreotide as per Renal -has outpatient follow-up with [facility] in [place] 2.Hypotension- related to ascites/paracentesis - slow response to albumin ( 150 cc per 24 hours) - continue midodrine 5mg TID.. 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 Quality Stroke Does the patient have a stroke diagnosis?: No VTE Prior VTE?: No VTE Risk Level:: Medical - moderate - high VTE Device Contraindication: N/A - Device Ordered VTE Drug Contraindication: Treatment Not Indicated
[2022-06-23 12:34] LABS: Glucose, Whole Blood 98 mg/dL (60-115)
--- NOTE | 2022-06-23 13:22 | P.PNNP_ITS ---
Subjective Subjective Date of Service: 06/23/22 Interval history: Seen and examined,events noted Physical Exam Vital Signs: Vital Signs: Last Vital Signs Temp 98.6 F 06/23/22 13:05 Pulse 96 06/23/22 13:05 Resp 17 06/23/22 13:05 BP 97/53 L 06/23/22 13:05 Pulse Ox 92 06/23/22 07:47 O2 Del Method 06/23/22 07:47 O2 Flow Rate 2 06/23/22 07:47 BMI result Body Mass Index 49.6 Const: Other: no acute distress Resp: Other: clear to auscultation bilaterally. No rales rhonchi or wheezes Cardio: Other: no S4; positive S1-S2; no S3 murmurs rubs or gallops GI: Other: soft nontender nondistended normoactive bowel sounds Extrem: Other: no edema bilaterally Objective Data Labs 06/23/22 07:52 06/23/22 07:52 Labs: Laboratory Results - last 24 hr 06/22/22 06/22/22 06/22/22 13:38 15:05 15:05 WBC RBC Hgb Hct MCV MCH MCHC RDW Plt Count MPV Immature Gran % (Auto) Neut % (Auto) Lymph % (Auto) [place] % (Auto) Eos % (Auto) Baso % (Auto) Lymph # (Auto) [place] # (Auto) Eos # (Auto) Baso # (Auto) Abs Immat Gran (auto) Absolute Neuts (auto) Absolute Nucleated RBC Nucleated RBC % (auto) Smear Path Review Sodium Potassium Chloride Carbon Dioxide Anion Gap BUN Creatinine Estim Creat Clear Calc Estimated GFR POC Glucose 118 H Random Glucose Calcium Total Bilirubin AST ALT Alkaline Phosphatase Total Protein Albumin U Random Total Protein Ur Random Sodium Peritoneal WBC 0.113 Peritoneal RBC < 0.002 Periton Neutrophils 11 Periton Lymphocytes 9 Peritoneal Monocytes 79 Peritoneal Other Cells 9 Peritoneal Albumin 0.4 Blood Type Antibody Screen Crossmatch 06/22/22 06/22/22 06/22/22 17:15 19:55 23:50 WBC RBC Hgb Hct MCV MCH MCHC RDW Plt Count MPV Immature Gran % (Auto) Neut % (Auto) Lymph % (Auto) [place] % (Auto) Eos % (Auto) Baso % (Auto) Lymph # (Auto) [place] # (Auto) Eos # (Auto) Baso # (Auto) Abs Immat Gran (auto) Absolute Neuts (auto) Absolute Nucleated RBC Nucleated RBC % (auto) Smear Path Review Sodium Potassium Chloride Carbon Dioxide Anion Gap BUN Creatinine Estim Creat Clear Calc Estimated GFR POC Glucose 181 H 158 H Random Glucose Calcium Total Bilirubin AST ALT Alkaline Phosphatase Total Protein Albumin U Random Total Protein 89 H Ur Random Sodium Peritoneal WBC Peritoneal RBC Periton Neutrophils Periton Lymphocytes Peritoneal Monocytes Peritoneal Other Cells Peritoneal Albumin Blood Type Antibody Screen Crossmatch 06/22/22 06/23/22 06/23/22 23:50 07:28 07:52 WBC 4.2 L RBC 2.15 L Hgb 6.9 L* Hct 21.1 L MCV 98.1 H MCH 32.1 MCHC 32.7 RDW 16.5 H Plt Count 39 L MPV 10.9 Immature Gran % (Auto) 0.5 H Neut % (Auto) 68.5 Lymph % (Auto) 12.5 L [place] % (Auto) 14.2 H Eos % (Auto) 3.6 Baso % (Auto) 0.7 Lymph # (Auto) 0.5 L [place] # (Auto) 0.6 Eos # (Auto) 0.2 Baso # (Auto) 0.0 Abs Immat Gran (auto) 0.02 Absolute Neuts (auto) 2.8 Absolute Nucleated RBC 0.000 Nucleated RBC % (auto) 0.0 Smear Path Review SEE NOTE Sodium Potassium Chloride Carbon Dioxide Anion Gap BUN Creatinine Estim Creat Clear Calc Estimated GFR POC Glucose 90 Random Glucose Calcium Total Bilirubin AST ALT Alkaline Phosphatase Total Protein Albumin U Random Total Protein Ur Random Sodium < 20.0 Peritoneal WBC Peritoneal RBC Periton Neutrophils Periton Lymphocytes Peritoneal Monocytes Peritoneal Other Cells Peritoneal Albumin Blood Type Antibody Screen Crossmatch 06/23/22 06/23/22 06/23/22 07:52 09:32 12:30 WBC RBC Hgb Hct MCV MCH MCHC RDW Plt Count MPV Immature Gran % (Auto) Neut % (Auto) Lymph % (Auto) [place] % (Auto) Eos % (Auto) Baso % (Auto) Lymph # (Auto) [place] # (Auto) Eos # (Auto) Baso # (Auto) Abs Immat Gran (auto) Absolute Neuts (auto) Absolute Nucleated RBC Nucleated RBC % (auto) Smear Path Review Sodium 133 L Potassium 4.2 Chloride 95 L Carbon Dioxide 31 H Anion Gap 11 L BUN 40 H Creatinine 2.07 H Estim Creat Clear Calc 43.6 Estimated GFR 26 POC Glucose 98 Random Glucose 85 Calcium 8.0 L Total Bilirubin 2.7 H AST 19 ALT < 6 Alkaline Phosphatase 46 Total Protein 5.6 L Albumin 3.3 L U Random Total Protein Ur Random Sodium Peritoneal WBC Peritoneal RBC Periton Neutrophils Periton Lymphocytes Peritoneal Monocytes Peritoneal Other Cells Peritoneal Albumin Blood Type A Positive Antibody Screen NEGATIVE Crossmatch See Detail Microbiology Microbiology Results: Microbiology 06/22/22 15:05 Peritoneal Fluid Gram Stain - Final 06/22/22 15:05 Peritoneal Fluid Routine Culture - Preliminary No growth to date. 06/22/22 15:05 Peritoneal Fluid Anaerobic Culture - Preliminary No growth to date. Procedures Date of Service Date of Service: 06/23/22 Assessment & Plan Assessment and plan (1) 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: Status: Acute (2) Hypotension: Status: Acute (3) Acute on chronic kidney failure: Status: Acute (4) MSSA bacteremia: Status: Acute (5) Hyponatremia: Status: Acute Plan - Non-Oliguric DULCE: most c/w CRSyn not responding to IV alb/midrdoine thus far; potential contributor being LgVol Paracentesis ( 9.2 L removed yesterday) - Cirrhosis - Recurrent severe ascites requiring recurrent taps - DM - Anemia: signif drop in Hb REC: cont IV alb and midrodine; add octreotide; track UOP/renal func; avoid Ntoxins Will follow clsiman w team Time Spent With Patient Time: Total time managing care of this patient today ____ minutes. Progress Note: Quality Stroke Does the patient have a stroke diagnosis?: No
--- NOTE | 2022-06-23 14:04 | MHC.CLN ---
NUTRITION DIET=DIABETIC 2000 KCALS, HIGH PROTEIN PER PROVIDER, 1200 ML FLUID RESTRICTION. CHANGED SUPPLEMENT FROM ENSURE BID TO ENSURE MAX PROTEIN BID. ENSURE MAX PROTEIN BID PROVIDES 600 ML FREE WATER, 300 KCALS, 60 G PROTEIN.
[2022-06-23] MEDS: Octreotide Acetate 100 MCG/ML AMPUL 200 MCG SUBCUT ×2 (14:19→21:31)
--- NOTE | 2022-06-23 14:23 | MHC.CM.PN ---
EMR REVIEWED, PER HOSPITALIST PLAN FOR ALBUMIN AND BLOOD TRANSFUSION TODAY, NO D/C AT THIS TIME, CM WILL CONT TO FOLLOW D/C NEEDS.
[2022-06-23 16:58] LABS: Glucose, Whole Blood 105 mg/dL (60-115)
--- NOTE | 2022-06-23 17:56 | PC.NURSE ---
md informed of pt's BP this AM and afternoon and of pt's abnormal lab values. 2 units RBC being administered. family at bedside assisting with care. pt had n/v, md informed first dose of zofran had - effect. pt had green liquid bile emesis. per md order 2nd dose zofran was given w/ moderate effect. 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 pt able ricardo get OOB to bathroom w/ 1 assist. pt had large BM this shift.
[2022-06-23 20:42] LABS: Glucose, Whole Blood 92 mg/dL (60-115)
[2022-06-23 22:13] LABS: ABG Base Excess 4.3 mmol/L; ABG HCO3 27 mmol/L (22-26); ABG pCO2 34 mmHg (32-45); ABG pO2 48 mmHg (83-108)
[2022-06-23 23:36] LABS: ABG Refer to POC result
[2022-06-24] VITALS (47 sets, daily range): BP systolic 89–148; BP diastolic 37–75; PULSE 75–115; RESP 12–36; TEMP 34.2–36.9; O2SAT 78–100; BMI 49.4
[2022-06-24 00:22] LABS: Troponin-I High Sensitivity 35.6 ng/L (<3.5-17.0)
--- NOTE | 2022-06-24 00:29 | PM.EVENT ---
Event Note Date of Service: 06/24/22 Event Note: Hypoxia: pt s/p Blood transfusion pt CXR showed Congestion vs Air space disease. pt already on Abx ABG showed Low Po2; increased suppl oxygen pt currently 15L jacobo at 90% but not in distress; speaks in full sentences. Will lasix 40mg IV x1. Nazario cath placed for Is/Os Will monitor BP and Urine out put. Pt has been receiving Albumin for Soft BP post Paracentesis. Update: Around 12AM; pt became more hypoxic and tachypneic; requiring oxygen via NRB. Spoke to Dr Garibay, respiratory practitioner-> who accepted pt to ICU. Anemia: s/p 2u prbc Will repeat CBC. No signs of bleeding reported currently. Time Spent With Patient Time: Total time managing care of this patient today _30minutes.
[2022-06-24] MEDS: Furosemide 40 MG/4 ML VIAL IVPUSH (00:54)
[2022-06-24 00:56] LABS: Eosinophils Absolute Auto 0.2 X10*3/uL (0.0-0.4); Hemoglobin 9.4 g/dl (12.0-16.0); PLT CLUMP 1; SCAN SMEAR FLAG 1
[2022-06-24 00:58] LABS: Basophils Absolute Auto 0.1 X10*3/uL (0.0-0.2); Basophils Percent Auto 0.8 % (0-2); Hematocrit 28.2 % (37.0-47.0); Imm Gran Abs Auto 0.03 X10*3/uL (0.00-0.03); Imm Gran Pct Auto 0.4 % (0.0-0.4); Lymphocytes Absolute Auto 0.5 X10*3/uL (1.2-4.9); Lymphocytes Percent Auto 6.4 % (20-40); Mean Corpuscular HGB Conc 33.3 g/dl (31.0-35.0); Mean Corpuscular Hemoglobin 32.6 pg (27.0-33.0); Mean Corpuscular Volume 97.9 fL (80.0-98.0); Mean Platelet Volume 9.6 fL (9.4-12.3); Monocytes Absolute Auto 0.8 X10*3/uL (0.1-1.2); Monocytes Percent Auto 10.3 % (2-11); Neutrophils Absolute Auto 6.1 x10*3/uL (2.0-8.3); Neutrophils Percent Auto 79.1 % (45-73); Red Blood Count 2.88 X10*6/uL (4.20-5.50); Red Cell Distribution Width 16.8 % (11.0-16.0); White Blood Count 7.7 X10*3/uL (4.8-10.8)
[2022-06-24 00:59] LABS: MANUAL DIFF FLAG NO; Platelet Count 34 X10*3/uL (160-400)
[2022-06-24] MEDS: ondansetron HCL 4 MG/2 ML VIAL IVPUSH (01:52)
--- NOTE | 2022-06-24 01:52 | PM.CCHP ---
History of Present Illness Date of Service: 06/24/22 Attending physician on admission: Kellie Garibay Chief Complaint: Hypoxia The patient is a 47-year-old female with history 47-year-old female with history of uncontrolled insulin-dependent type 2 diabetes, hyperlipidemia, hypertension, liver cirrhosis secondary to SERVIN requiring frequent paracentesis, chronic thrombocytopenia, AMY, PCOS with acromegaly, nontoxic multinodular goiter, MSSA bacteremia currently being treated with cefazolin, and asthma admitted on 06/21/2022 for anasarca with DULCE.? Hospital course: Therapeutic paracentesis was performed on 06/22/2022; approximately 9.2 L of clear yellowish fluid was removed with improvement in sob, bales. Gram stain negative.? Cultures are pending.? She was given 500ml bolus post procedure, albumin x 2, and started midodrine. ? She was started on octreotide per Nephrology suggestion. On 06/23/2022, she was noted to have almost 1.5g drop in hemoglobin bringing it down to 6.9 and was transfused 2 units PRBCs. ? Later in the evening she became hypoxic. CXR showed Congestion vs Air space disease. ? An ABG was done that showed a pH of 7.5, pCO2 34, PO2 48, HC03 27. She was placed on 15L jacobo at 100%, using accessory muscles,? but speaking in full sentences.? She was given Lasix 40 mg IV.? A repeat CBC showed hemoglobin of 9.4.? Despite supplemental oxygen and diuretic, the patient still exhibited significant work of breathing with an O2 sat in the low to mid 80s range and she was transferred to the ICU for profound hypoxia.? On arrival to the ICU she was placed on BiPAP and appeared to be much more comfortable,? no longer using accessory muscles though she did require 100% O2.? O2 sats 88-92%. Her mentation remained intact. She was started on vasopressin and then Levophed for pressure support. An urticarial rash on her left neck arm and back was noted.? The cefazolin was stopped.? She was given 125 mg of Solu-Medrol IV. Review of Systems Constitutional: Constitutional: Reports stops breathing during sleep (Hx of AMY) ENT: Reports system reviewed and no additional complaints, except as documented, Denies hoarseness, Denies lip swelling, Denies throat swelling and Denies tongue swelling Cardiovascular: Cardiovascular: Denies chest pain, Denies epigastric discomfort, Reports pedal edema, Reports leg edema and Reports dyspnea Respiratory: Respiratory: Reports dyspnea and Denies wheezing Gastrointestinal: Gastrointestinal: Reports no additional gastrointestinal complaints Genitourinary: Genitourinary: Reports no additional female genitourinary complaints Musculoskeletal: Musculoskeletal: Reports no additional musculoskeletal complaints Endocrine: Endocrine: Reports no additional endocrine complaints Hematologic/Lymphatic: Hematologic/Lymphatic: Reports as per HPI Allergic/Immunologic: Allergic/Immunologic: Denies lip swelling, Denies throat swelling, Denies tongue swelling and Denies wheezing [facility], LAT[facility] Past Medical History Medical History (Updated 06/25/22 @ 12:42 by Kellie Garibay MD) Acromegaly Asthma Diabetes type 2, uncontrolled Diabetic nephropathy associated with type 2 diabetes mellitus Dyslipidemia Elevated TSH Goiter HTN (hypertension) 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 Morbid obesity Non-toxic multinodular goiter AMY (obstructive sleep apnea) PCOS (polycystic ovarian syndrome) Status post abdominal paracentesis Family History Family History Father Unknown family medical history Mother Hx of type 1 diabetes mellitus Surgical History Surgical History Hx of colonoscopy Hx of endoscopy Social History Social History Household Members: Spouse Housing: Apartment Do you presently have visiting nurse or other home services: Yes (2x/week) Alcohol intake: never Patient Tobacco Use Status: Former Tobacco user Quit Date: 7 yrs ago Second Hand Smoke Exposure: Yes Substance Use Type: Marijuana service: No Current occupational status: disabled 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 Meds Allergies Allergy/AdvReac Type Severity Reaction Status Date / Time ibuprofen [From MOTRIN] Allergy Intermediate RASH Verified 06/16/22 13:24 penicillin V Allergy Mild hives Verified 06/16/22 13:24 codeine Allergy Unknown Verified 06/16/22 13:24 Rx- listed on H&P lidocaine Allergy Blister Verified 06/16/22 13:24 Active Medications: Current Medications Acetaminophen (Acetaminophen 325 Mg Tablet) 650 mg PO Q6H PRN PRN Reason: Pain, Mild (Pain Scale 1-3) Last Admin: 06/23/22 10:00 Dose: 650 mg Albuterol Sulfate (Albuterol Sulfate 90 Mcg 8 Gm Inhaler) 2 puff INHALE RQ6H REPLACED BY [facility] Last Admin: 06/23/22 22:44 Dose: 2 puff Albuterol Sulfate 2.5 mg/ (Ipratropium [place] 0.5 mg) 0 mg INHALE QID PRN PRN Reason: Shortness of Breath/Wheezing Docusate Sodium (Docusate Sodium 100 Mg Capsule) 100 mg PO DAILY PRN PRN Reason: Constipation Fluticasone Propionate (Fluticasone Propionate 250 Mcg Blst.W.Dev) 2 puff INHALE RBID REPLACED BY [facility] Last Admin: 06/23/22 20:04 Dose: Not Given Gabapentin (Gabapentin 300 Mg Capsule) 300 mg PO BEDTIME REPLACED BY [facility] Last Admin: 06/23/22 23:04 Dose: Not Given Glucose (Glucose Gel 15 Gm Gel..Gram.) 15 gm PO Q15M PRN; Protocol PRN Reason: per Hypoglycemia Standing Ord. Cefazolin Sodium/Dextrose (Ancef) 2 gm in 50 mls @ 100 mls/hr IV Q12H REPLACED BY [facility] Last Infusion: 06/23/22 17:30 Dose: Infused Albumin Human (Kedbumin 25 %) 100 mls @ 100 mls/hr IV Q6H REPLACED BY [facility] Stop: 06/24/22 04:59 Last Infusion: 06/24/22 00:10 Dose: Infused Dextrose (D10) 250 mls @ 750 mls/hr IV Q15M PRN; Protocol PRN Reason: per Hypoglycemia Standing Ord. Insulin Glargine (Insulin Glargine,Hum.Rec.Anlog 100 Unit/Ml 10 Ml Vial) 45 unit SUBCUT BEDTIME REPLACED BY [facility] Last Admin: 06/23/22 22:09 Dose: Not Given Insulin Human Lispro (Insulin Lispro 100 Unit/Ml 3 Ml Vial) 0 unit SUBCUT QIDACHS REPLACED BY [facility]; Protocol Last Admin: 06/23/22 21:09 Dose: Not Given Lactulose (Lactulose 20 Gm/30 Ml Solution) 20 gm PO DAILY PRN PRN Reason: Constipation Levothyroxine Sodium (Levothyroxine Sodium 50 Mcg Tablet) 50 mcg PO DAILY@0600 REPLACED BY [facility] Last Admin: 06/23/22 05:58 Dose: 50 mcg Loratadine (Loratadine 10 Mg Tablet) 10 mg PO DAILY PRN PRN Reason: Allergy Symptoms Midodrine (Midodrine Hcl 5 Mg Tablet) 5 mg PO TID REPLACED BY [facility] Last Admin: 06/23/22 23:04 Dose: Not Given Octreotide Acetate (Octreotide Acetate 100 Mcg/Ml Ampul) 200 mcg SUBCUT Q8H REPLACED BY [facility] Last Admin: 06/23/22 21:31 Dose: 200 mcg Omeprazole (Omeprazole 40 Mg Capsule.Dr) 40 mg PO DAILY@0630 REPLACED BY [facility] Last Admin: 06/23/22 05:58 Dose: 40 mg Ondansetron HCl (Ondansetron Hcl 4 Mg/2 Ml Vial) 4 mg IVPUSH Q8H PRN PRN Reason: Nausea and Vomiting Last Admin: 06/23/22 21:19 Dose: 4 mg Pharmacy Consult (Consult Rx Perform Med Rec) 1 each MISCELLANE ONCE PRN PRN Reason: Consult order Sodium Chloride (0.9 % Sodium Chloride Flush 3 Ml Syringe) 3 ml IVFLUSH QSHIFT REPLACED BY [facility] Last Admin: 06/24/22 00:10 Dose: Not Given Vitamin E (Vitamin E (Dl,Tocopheryl Acet) 180 Mg (400 Unit) Capsule) 180 mg PO BID REPLACED BY [facility] Last Admin: 06/23/22 23:05 Dose: Not Given Zinc Sulfate (Zinc Sulfate 220 Mg Capsule) 220 mg PO DAILY REPLACED BY [facility] Last Admin: 06/23/22 10:00 Dose: 220 mg Home Medications Medication Instructions Recorded Confirmed Last Taken Type albuterol sulfate 90 mcg/actuation 2 puff inhalation Q6H 08/16/20 06/21/22 3 Days Ago History aerosol inhaler (Ventolin HFA) ~05/28/22 blood sugar diagnostic (JosiahStyle #10 ea 08/16/20 08/16/20 Unknown History Lite Strips) fluticasone propionate 220 2 puff inhalation BID 08/16/20 06/21/22 3 Days Ago History mcg/actuation HFA aerosol inhaler ~05/28/22 (Flovent HFA) lancets 28 gauge (FreeStyle #100 ea 08/16/20 08/16/20 Unknown History Lancets) gabapentin 300 mg capsule 300 mg PO BEDTIME pain 11/04/21 06/21/22 3 Days Ago History ~05/28/22 levothyroxine 50 mcg tablet 50 mcg PO DAILY@0600 11/04/21 06/21/22 3 Days Ago History ~05/28/22 dulaglutide 1.5 mg/0.5 mL 1.5 mg subcut MO@0900 04/28/22 06/21/22 06/16/22 History subcutaneous pen injector (Trulicity) vitamin A 10,000 unit capsule 1 cap PO DAILY 04/28/22 06/21/22 3 Days Ago History ~05/28/22 insulin glargine U-300 conc 300 80 unit subcut BEDTIME 04/30/22 06/21/22 3 Days Ago History unit/mL (3 mL) subcutaneous pen ~05/28/22 (Toujeo Max U-300 SoloStar) acetaminophen 325 mg tablet 2 tab PO Q8H PRN pain 05/31/22 06/21/22 3 Days Ago History ~05/28/22 insulin lispro 100 unit/mL 26 unit subcut TIDAC 05/31/22 06/21/22 3 Days Ago History subcutaneous pen ~05/28/22 ipratropium 0.5 mg-albuterol 3 mg 1 amp inhalation QID PRN dyspnea 05/31/22 06/21/22 3 Days Ago History (2.5 mg base)/3 mL nebulization ~05/28/22 soln lisinopril 2.5 mg tablet 1 tab PO DAILY 05/31/22 06/21/22 3 Days Ago History ~05/28/22 loratadine 10 mg tablet 1 tab PO DAILY PRN Allergy Symptoms 05/31/22 06/21/22 3 Days Ago History ~05/28/22 vitamin E (dl, acetate) 180 mg 1 cap PO BID 05/31/22 06/21/22 3 Days Ago History (400 unit) capsule ~05/28/22 furosemide 20 mg tablet 20 mg PO DAILY 06/21/22 06/21/22 Unknown History zinc sulfate 50 mg zinc (220 mg) 1 cap PO DAILY 06/21/22 06/21/22 Unknown History capsule Physical Exam Vital Signs: Vital Signs: Last Vital Signs Temp 99.2 F 06/23/22 21:00 Pulse 115 H 06/24/22 01:17 Resp 36 H 06/24/22 01:17 BP 139/64 06/24/22 01:17 Pulse Ox 78 L 06/24/22 01:17 O2 Del Method 06/24/22 01:17 O2 Flow Rate 15 06/24/22 01:17 BMI result Body Mass Index 49.6 Const: General: cooperative, alert and awake Nutritional Appearance: obese Orientation/consciousness: patient oriented x3 Resp: Effort & Inspection: able to speak in complete sentences, labored and uses accessory muscles Auscultation: crackles on the right and diffuse and diminished lung sounds (clear but distant ) on the left Cardio: Rate: regular rate Rhythm: regular rhythm Heart sounds: S1 normal heart sound present, S2 normal heart sound present, no gallops, no murmurs and no rubs Peripheral pulses: Peripheral pulses 2+ throughout GI: Inspection: Yes Abdominal panniculus present and Yes obesity Auscultation: normal bowel sounds Skin: General skin exam: other (acanthosis nigricans) Rashes: rashes noted (left neck, upper arm upper back) urticaria left multiple locations and other (Redness, petechial rash noted on bilateral lower legs) Wounds: wounds noted right dorsal foot size (1 x 2 cm), bed dusky red (dry), margins with surrounding erythema, without odor and with surrounding erythema; no drainage, tear left upper back Neuro: General: patient oriented x3 Cognition (Neuro): normal cognition Results Labs 06/24/22 00:48 06/23/22 07:52 Labs: Laboratory Results - last 24 hr 06/23/22 06/23/22 06/23/22 07:28 07:52 07:52 MCV 98.1 H MCH 32.1 MCHC 32.7 RDW 16.5 H Plt Count 39 L MPV 10.9 Immature Gran % (Auto) 0.5 H Neut % (Auto) 68.5 Lymph % (Auto) 12.5 L [place] % (Auto) 14.2 H Eos % (Auto) 3.6 Baso % (Auto) 0.7 Lymph # (Auto) 0.5 L [place] # (Auto) 0.6 Eos # (Auto) 0.2 Baso # (Auto) 0.0 Abs Immat Gran (auto) 0.02 Absolute Neuts (auto) 2.8 Absolute Nucleated RBC 0.000 Nucleated RBC % (auto) 0.0 Smear Path Review SEE NOTE O2 Saturation ABG pH at Pt Temp ABG pCO2 at Pt Temp ABG pO2 at Pt Temp ABG HCO3 ABG Base Excess (Actual) Anion Gap 11 L Estim Creat Clear Calc 43.6 Estimated GFR 26 POC Glucose 90 Random Glucose 85 Calcium 8.0 L Total Bilirubin 2.7 H AST 19 ALT < 6 Alkaline Phosphatase 46 Troponin I High Sens Total Protein 5.6 L Albumin 3.3 L Blood Type Antibody Screen Crossmatch 06/23/22 06/23/22 06/23/22 09:32 12:30 16:47 MCV MCH MCHC RDW Plt Count MPV Immature Gran % (Auto) Neut % (Auto) Lymph % (Auto) [place] % (Auto) Eos % (Auto) Baso % (Auto) Lymph # (Auto) [place] # (Auto) Eos # (Auto) Baso # (Auto) Abs Immat Gran (auto) Absolute Neuts (auto) Absolute Nucleated RBC Nucleated RBC % (auto) Smear Path Review O2 Saturation ABG pH at Pt Temp ABG pCO2 at Pt Temp ABG pO2 at Pt Temp ABG HCO3 ABG Base Excess (Actual) Anion Gap Estim Creat Clear Calc Estimated GFR POC Glucose 98 105 Random Glucose Calcium Total Bilirubin AST ALT Alkaline Phosphatase Troponin I High Sens Total Protein Albumin Blood Type A Positive Antibody Screen NEGATIVE Crossmatch See Detail 06/23/22 06/23/22 06/23/22 20:21 22:05 22:13 MCV MCH MCHC RDW Plt Count MPV Immature Gran % (Auto) Neut % (Auto) Lymph % (Auto) [place] % (Auto) Eos % (Auto) Baso % (Auto) Lymph # (Auto) [place] # (Auto) Eos # (Auto) Baso # (Auto) Abs Immat Gran (auto) Absolute Neuts (auto) Absolute Nucleated RBC Nucleated RBC % (auto) Smear Path Review O2 Saturation 81.0 ABG pH at Pt Temp 7.50 H ABG pCO2 at Pt Temp 34 ABG pO2 at Pt Temp 48 L* ABG HCO3 27 H ABG Base Excess (Actual) 4.3 Anion Gap Estim Creat Clear Calc Estimated GFR POC Glucose 92 Random Glucose Calcium Total Bilirubin AST ALT Alkaline Phosphatase Troponin I High Sens 37.0 H D Total Protein Albumin Blood Type Antibody Screen Crossmatch 06/23/22 06/24/22 23:50 00:48 MCV 97.9 MCH 32.6 MCHC 33.3 RDW 16.8 H Plt Count 34 L MPV 9.6 Immature Gran % (Auto) 0.4 Neut % (Auto) 79.1 H Lymph % (Auto) 6.4 L [place] % (Auto) 10.3 Eos % (Auto) 3.0 Baso % (Auto) 0.8 Lymph # (Auto) 0.5 L [place] # (Auto) 0.8 Eos # (Auto) 0.2 Baso # (Auto) 0.1 Abs Immat Gran (auto) 0.03 Absolute Neuts (auto) 6.1 Absolute Nucleated RBC 0.000 Nucleated RBC % (auto) 0.0 Smear Path Review O2 Saturation ABG pH at Pt Temp ABG pCO2 at Pt Temp ABG pO2 at Pt Temp ABG HCO3 ABG Base Excess (Actual) Anion Gap Estim Creat Clear Calc Estimated GFR POC Glucose Random Glucose Calcium Total Bilirubin AST ALT Alkaline Phosphatase Troponin I High Sens 35.6 H Total Protein Albumin Blood Type Antibody Screen Crossmatch ABG ABG results: pH 7.50 pCO2 34 pO2 59 HCO3 26 BE 3.8 Attestation: I personally reviewed and interpreted this ABG as follows: (Respiratory alkalosis) Imaging Radiologist's Impressions: Impressions Chest X-Ray 06/23/22 22:17 IMPRESSION: Increasing airspace disease in the right lung. Differential would include edema and infectious etiologies. Assessment and Plan (1) Hypoxia: Status: Acute (2) Hypotension: Status: Acute (3) 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: Status: Acute (4) Ascites: Status: Acute (5) Acute on chronic kidney failure: Qualifiers: Acute renal failure type: with acute tubular necrosis Status: Acute (6) Hyponatremia: Status: Acute (7) MSSA bacteremia: Status: Acute (8) Coagulopathy: Status: Acute (9) Thrombocytopenia: Status: Acute (10) Acute hyponatremia: Status: Acute (11) Diabetic nephropathy associated with type 2 diabetes mellitus: Status: Acute (12) Morbid obesity: Status: Acute (13) PCOS (polycystic ovarian syndrome): Status: Acute (14) Diabetes type 2, uncontrolled: Qualifiers: Glycemic state: with hyperglycemia Qualified Code(s): E11.65 - Type 2 diabetes mellitus with hyperglycemia Status: Acute Plan Assessment 47-year-old female with history 47-year-old female with uncontrolled insulin-dependent type 2 diabetes, hyperlipidemia, hypertension, liver cirrhosis secondary to SERVIN, chronic thrombocytopenia, AMY, PCOS with acromegaly, nontoxic multinodular goiter, MSSA bacteremia admitted for anasarca with DULCE, transferred to ICU for management of profound hypoxemia requiring ventilatory support.? Plan Neuro:? No acute issues. Cardiac: Hypotension- related to ascites/paracentesis. Started on Vasopressin and Levophed to maintain MAP >65.? Pulmonary:? Acute hypoxic respiratory failure, likely flash pulmonary edema r/t large volume paracentesis today. Lasix 40 mg given on floor. Will add additional 20mg if needed. Patient is comfortable on BiPap for the time being. Keep 02 saturation 88-92%. FiO2 currently at 100%; will likely need to be intubated to maintain adequate ventilation. Renal: Acute kidney injury/hepatorenal related to large volume paracentesis. Cont IV albumin and octreotide. Track UOP/renal func. Avoid nephrotoxins. Endo: Chronic hyponatremia likely hypervolemic hyponatremia from cirrhosis. Fluid restriction. Recheck electrolytes in AM.? Type 2 diabetes. Continue insulin as per correctional scale. GI: ?SERVIN cirrhosis with/ascites/thrombcytopenia. Continues scheduled albumin, octreotide.? ID: ?MSSA bacteremia currently treated with cefazolin. Urticaria noted on neck. Patient has documented PCN allergy. Stop Cefazolin. Solumedrol 125mg IV given. Start Levaquin. Patient will need central line.? Psych: ?No acute issues. Miscellaneous:? No acute issues. Prophylaxis: Famotidine, bilateral pneumatic boots Diet:? NPO? Time Spent With Patient Time: Total time managing care of this patient today ____ minutes.
--- NOTE | 2022-06-24 02:07 | PC.NURSE ---
Addendum entered by Audelia Danielle RN 06/24/22 02:35: Report was called to HOMERO Cortez at 0228. Original Note: Pt was seen on 1999 with on going RBC transfusion going, no adversed reaction so far, blood was completed at 2100. At 2200 pt was noted nausea ,desating at 84-86% at 3L/min via NC, scattered crackles auscultated, c/o feeling cold with temp=99.2 oral, c/o mid sternal chest pressure 8/10, POC 92 and pt said she was unable to tolerate po d/t nausea, po meds refused also, Dr. Knapp was notified, Zofran Iv was given, pt vomited yellowish brown liquid and felt relief after, EKG done and copy was forwarded to Dr. Knapp, CXR done and result was seen by same MD, labs drawn, Nitroglycerin SL was ordered but pt refused abd said that her CP has decreased after vomiting, O2 was increased to 5L/min but no effect, ABG done, Lemos was applied and put to 15L/min , O2 sat was sustained at 89-90%, Lantus held as per MD. Lasix 40 mg IV ordered at 0028, vitals checked and monitored, pt later assisted up to the commode and voided, upon returning back to bed pt became more dyspneic with RR on the 30s-40s, desating at 78%, with very audible coarse crackles, RT was paged and Dr. Knapp was called to come to the bedside, put pt on NRB mask, ICU was consulted and transferred pt ICU passed 99.
[2022-06-24] MEDS: Nitroglycerin 2 % Oint 1 GM Packet 1 INCH TRANSDERMA (02:15)
[2022-06-24 02:32] LABS: ABG Base Excess 3.8 mmol/L; ABG HCO3 26 mmol/L (22-26); ABG pCO2 34 mmHg (32-45); ABG pO2 59 mmHg (83-108)
[2022-06-24] MEDS: Vasopressin 20 UNIT/100 ML INFUS..BTL 12 UNIT IV ×3 (02:42→17:31)
[2022-06-24 02:47] LABS: ABG Refer to POC result
[2022-06-24] MEDS: Norepinephrine Bitartrate/D5W 8 MG/250 ML PLAST..BAG 11.91 MG IV (03:00)
[2022-06-24] MEDS: methylPREDNISolone Sod Succ 125 MG/2 ML VIAL IVPUSH (03:32)
[2022-06-24] MEDS: fentaNYL citrate/PF 100 MCG/2 ML VIAL 25 MCG IVPUSH (03:45)
[2022-06-24] MEDS: Albumin Human 25 % 100 ML IV ×3 (03:45→19:55)
[2022-06-24] MEDS: Furosemide 20 MG/2 ML VIAL IVPUSH (03:50)
[2022-06-24 04:47] LABS: MANUAL DIFF FLAG NO
[2022-06-24 04:56] LABS: Basophils Absolute Auto 0.1 X10*3/uL (0.0-0.2); Basophils Percent Auto 0.9 % (0-2); Eosinophils Absolute Auto 0.4 X10*3/uL (0.0-0.4); Hematocrit 31.9 % (37.0-47.0); Hemoglobin 10.5 g/dl (12.0-16.0); Imm Gran Abs Auto 0.07 X10*3/uL (0.00-0.03); Imm Gran Pct Auto 0.6 % (0.0-0.4); Lymphocytes Absolute Auto 0.7 X10*3/uL (1.2-4.9); Lymphocytes Percent Auto 5.6 % (20-40); Mean Corpuscular HGB Conc 32.9 g/dl (31.0-35.0); Mean Corpuscular Volume 97.3 fL (80.0-98.0); Mean Platelet Volume 11.1 fL (9.4-12.3); Monocytes Absolute Auto 1.3 X10*3/uL (0.1-1.2); Monocytes Percent Auto 10.2 % (2-11); Neutrophils Percent Auto 79.7 % (45-73); Red Blood Count 3.28 X10*6/uL (4.20-5.50); Red Cell Distribution Width 16.9 % (11.0-16.0); White Blood Count 12.5 X10*3/uL (4.8-10.8)
[2022-06-24 05:00] LABS: Platelet Count 56 X10*3/uL (160-400)
[2022-06-24] MEDS: propofoL 200 MG/20 ML VIAL 100 MG IVPUSH (05:00)
[2022-06-24] MEDS: Rocuronium Bromide 50 MG/5 ML VIAL 100 MG IVPUSH (05:07)
[2022-06-24] MEDS: propofoL 1,000 MG/100 ML VIAL 38.1 MG IVCONT ×7 (05:15→19:52)
[2022-06-24 05:17] LABS: Alanine Aminotransferase < 6 U/L (0-31); Albumin Level 4.1 g/dL (3.5-5.0); Alkaline Phosphatase 53 U/L (39-117); Anion Gap 18 (12-20); Aspartate Amino Transferase 24 U/L (5-31); Blood Urea Nitrogen 45 mg/dL (9-16); Calcium 8.5 mg/dL (8.4-10.2); Carbon Dioxide 26 mmol/L (22-29); Chloride 95 mmol/L (96-108); Creatinine Clr Calc Pharmacy 41.7; Estimated Glomerular Filt Rate 24; Glucose Random 98 mg/dL (60-115); Magnesium 1.8 mg/dL (1.6-2.6); Phosphorus 4.5 mg/dL (2.7-4.5); Potassium 5.2 mmol/L (3.3-5.1); Sodium 134 mmol/L (135-145); Total Protein 6.7 g/dL (6.5-8.0)
[2022-06-24 05:22] LABS: Alanine Aminotransferase < 6 U/L (0-31); Albumin Level 4.1 g/dL (3.5-5.0); Alkaline Phosphatase 50 U/L (39-117); Anion Gap 17 (12-20); Aspartate Amino Transferase 24 U/L (5-31); Bilirubin Total 12.9 mg/dL (0.0-1.0); Blood Urea Nitrogen 45 mg/dL (9-16); Calcium 8.4 mg/dL (8.4-10.2); Carbon Dioxide 27 mmol/L (22-29); Chloride 94 mmol/L (96-108); Creatinine Clr Calc Pharmacy 42.2; Estimated Glomerular Filt Rate 25; Glucose Fasting 99 mg/dL (60-99); Potassium 5.2 mmol/L (3.3-5.1); Sodium 133 mmol/L (135-145); Total Protein 6.6 g/dL (6.5-8.0)
[2022-06-24] MEDS: Midazolam HCl/PF 2 MG/2 ML VIAL 3 MG IVPUSH (05:47)
[2022-06-24 06:42] LABS: Glucose, Whole Blood 143 mg/dL (60-115)
--- NOTE | 2022-06-24 07:26 | PC.NURSE ---
witnessed the waste of fentanyl 75 mg; pt received only 25 mg iv bolus pre intubation. also witnessed the waste of midazolam 7 mg iv. pt received 3 mg iv.
--- NOTE | 2022-06-24 07:36 | W.PM.CCHP ---
Procedures Date of Service Date of Service: 06/24/22 Central Line Placement Left IJ: Central Line Comments: The left neck was widely prepped and draped in full sterile fashion.? Under US? guidance, the left IJ vein was cannulated on the 1st pass of the 18 g thin wall needle, with return of dark, nonpulsatile blood. ? The wire was threaded without incident.? The 16 cm x 7 Romanian triple-lumen CVC was advanced into the vein up to the hub via the Seldinger technique without incident.? There was good blood return x3.? The catheter was sutured x2 and a Biopatch and dry sterile dressing were applied. Postop chest x-ray showed the line in good position with no pneumothorax.? The patient tolerated the procedure well with no complications. Consent for Procedure: Emergent-no informed consent obtained Time out performed: Yes Sterile Technique Used: Yes Patient placed on monitor/pulse ox: Yes prep: mask Central line prep: Chlorhexidine scrub and sterile drapes applied Ultrasound used for placement: Yes Central line lumen inserted: triple Post procedure: sutured in place, good blood return, all ports aspirated, flushed, capped and sterile dressing applied Post procedure x-ray: tip of catheter in good position and no pneumothorax seen Patient tolerated procedure: well and no complications Complications: none
--- NOTE | 2022-06-24 07:37 | W.PM.CCHP ---
Procedures Date of Service Date of Service: 06/24/22 Intubation Intubation Comments: At approximately 04:50 this morning, the patient became nauseated. The BiPAP was removed and she was placed on nasal cannula/ non-rebreather.?It was immediately apparent that the patient was grossly hypoventilating and required intubation. She could not maintain a O2 sat above 75% and was using it accessory muscles.She was preoxygenated with Ambu bag 100%. RSI was carried out with the meds below. The glottis was easily visualized with #3 GlideScope, and the trachea was intubated with a 7.5 ETT via indirect video visualization, atraumatic.? BSBE, +CO2, SpO2 maintained.? The tube was secured at 25 cm at the upper lip. The patient tolerated the procedure well with no complications.? Placement confirmed with chest x-ray. Consent for Procedure: Emergent-no informed consent obtained Time out performed: Yes Sedative: propofol Mg given: 100 Paralytic: rocuronium Mg given: 100 Laryngoscope: fiber optic video scope ET tube size: 7.5 ET tube uncuffed: Yes Tube secured depth (cm): 25 Tube secured location: lips Tube placement confirmation: visualized tube passing through cords, equal breath sounds bilaterally and confirmation by capnometry Patient tolerated procedure: well and no complications Intubation complications: difficult intubation and hypoxia
[2022-06-24] MEDS: Midazolam HCl/NS 50 MG/50 ML PLAST..BAG IVCONT ×2 (07:41→22:04)
[2022-06-24 07:42] LABS: Glucose, Whole Blood 140 mg/dL (60-115)
[2022-06-24] MEDS: Insulin Regular/NS 100 UNIT/100 ML PLAST..BAG IVCONT ×2 (07:46→22:02)
[2022-06-24] MEDS: 0.9 % Sodium Chloride Flush 3 ML SYRINGE IVFLUSH ×3 (07:54→23:06)
[2022-06-24] MEDS: Octreotide Acetate 100 MCG/ML AMPUL 200 MCG SUBCUT ×3 (07:54→20:45)
[2022-06-24] MEDS: Furosemide 200 MG in 0.9 % Sodium Chloride 80 ML IVCONT ×2 (08:31→23:06)
[2022-06-24] MEDS: Thiamine HCL 100 MG TABLET PO (08:34)
[2022-06-24] MEDS: Lactulose 20 GM/30 ML SOLUTION PO ×2 (08:34→20:45)
[2022-06-24] MEDS: levoFLOXacin/D5W 500 MG/100 ML PIGGYBACK 100 MG IV (08:34)
[2022-06-24] MEDS: Famotidine/PF 20 MG/2 ML VIAL IVPUSH (08:34)
[2022-06-24] MEDS: Chlorhexidine Gluc Oral Rinse 15 ML MOUTHWASH BUCCAL ×3 (08:34→19:56)
--- NOTE | 2022-06-24 08:39 | PC.NURSE ---
Pt arrived to ICU at approximately 0145. Pt A+Ox4, fatigued with increased WOB. Lungs dim throughout with coarse crackles to R side. BL LE +3 edema. Nazario cath in place. Pt complaining of nausea, denies any pain. PRN Zofran given with good effect. Pt placed on Bipap and titrated as needed by RT, sating 86-90%. 0.5 inch Nitropaste applied to L shoulder per orders. Pt became hypotensive, SBP 80-90s. Vasopressin gtt started per order with minimal effect. Levophed gtt started and titrated per order with good effect. Per DESIZING MACHINE OPERATOR HEAD END, goal MAP of >70 - being met. Pt resting comfortably in bed, on continuous telemonitor and O2 monitor. Approximately 0430, pt complaining of nausea. RT and DESIZING MACHINE OPERATOR HEAD END notified. Bipap removed, pt placed on NRB. Pt vomited small amount of yellow bile. Pt having increased WOB, sating 80s, RR 25-30. One time dose IVP Fentanyl 25mcg given with minimal effect. One time dose IVP Solumedrol 125mg and IVP Lasix 20mg given as ordered. Approximately 0500, decision made to intubate pt. For emergent intubation- Total of 100mg Propofol given incrementally and 50mg Rocuronium. Pt intubated at 0515, 7.5 ETT, 25 at the lip. Additional 50mg Rocuronium (given incrementally) and 3mg Versed given for vent control. Propofol gtt started as ordered. Pt sating 88-91%, synchronized with vent. OG tube and Triple lumen catheter placed to L IJ by hand binder stripper, confirmed by XR. CVP 18 @ 0600, aware. Report given to iam VALENTIN.
[2022-06-24 09:01] LABS: Glucose, Whole Blood 166 mg/dL (60-115)
[2022-06-24 10:15] LABS: Glucose, Whole Blood 183 mg/dL (60-115)
--- NOTE | 2022-06-24 10:27 | MHC.CLN ---
NUTRITION DISCUSSED WITH TEAM AT [facility]. PATIENT INTUBATED AND SEDATED. TUBE FEED NEPRO AT 20 ML PER HOUR. 120 ML WATER FLUSH Q 4 HOURS. PROVIDES 864 KCALS FROM FORMULA, 1870 KCALS WITH SEDATION (35.8 KCALS/KG IBW)39; 50 G PROTEIN (.66 G/KG IBW); 2464 ML FREE WATER FROM FORMULA AND FLUSH (32.7 ML/KG IBW). MONITOR TUBE FEED TOLERANCE AND LABS. FOLLOW WITH TEAM FOR PLAN OF CARE.
[2022-06-24] MEDS: Levothyroxine Sodium 100 MCG/5 ML VIAL 25 MCG IVPUSH (10:32)
--- NOTE | 2022-06-24 10:32 | MHC.CLN ---
NUTRITION DISCUSSED WITH TEAM AT [facility]. PATIENT INTUBATED AND SEDATED. TUBE FEED NEPRO AT 20 ML PER HOUR. 120 ML WATER FLUSH Q 4 HOURS. PROVIDES 864 KCALS FROM FORMULA, 1870 KCALS WITH SEDATION (35.8 KCALS/KG IBW); 39 G PROTEIN (.75 G/KG IBW); 1069 ML FREE WATER FROM FORMULA AND FLUSH (20.4 ML/KG IBW). MONITOR TUBE FEED TOLERANCE AND LABS. FOLLOW WITH TEAM FOR PLAN OF CARE.
[2022-06-24 11:05] LABS: Glucose, Whole Blood 180 mg/dL (60-115)
[2022-06-24 11:18] LABS: Appearance Urine Cloudy; Color Urine Dark Yellow; Glucose Urine UA Negative (Negative); Leukocyte Esterase Urine Trace (Negative); Nitrite Urine Negative (Negative); Specific Gravity - Urine 1.015 (1.005-1.025); UMIC TRIGGER UA YES; Urine Blood Large (3+) (Negative); Urine Ketones Negative (Negative); Urine Protein 100 (2+) mg/dL (Neg-Trace)
[2022-06-24 11:24] LABS: Bacteria Urine None Seen (None Seen); RBC Urine >20 /HPF (0-2); Squamous Epithelial Cell Urine 0-2 /HPF (0-2); WBC Urine 0-5 /HPF (0-5)
[2022-06-24 12:22] LABS: Glucose, Whole Blood 177 mg/dL (60-115)
[2022-06-24] MEDS: Norepinephrine Bitartrate/D5W 8 MG/250 ML PLAST..BAG 35.72 MG IV (13:45)
--- NOTE | 2022-06-24 13:57 | PM.GICN ---
History of Present Illness Data of Consult Service Date: 06/24/22 Requesting physician: Kellie Garibay Primary Care Provider: Radha Anne MD HPI Reason for consult: ?hepatorenal syndrome 47-year-old female with hx of insulin-dependent type 2 diabetes, hyperlipidemia, hypertension, liver cirrhosis secondary to SERVIN requiring frequent paracentesis, chronic thrombocytopenia, AMY, PCOS with acromegaly, nontoxic multinodular goiter, and asthma who I am seeing for assessment for liver disease and possible decompensation with renal failure. No hx from patient as she is intubated. Recent hx of MSSA bacteremia and was on IV cefazolin as o/p She came to the ED w/ c/o exertional dyspnea, and swollen legs. She had paracentesis done with 8 L of fluid removed which was neg for SBP (had been on aldactone and lasix as o/p as well) . She did receive albumin but her renal fn was noted to be worsening and her BP was soft so midodrine was added. Her HGB was noted to be driftng down and she was transfused but then acutely became SOB with acute hypoxia and required ICU transfer and intubation with vent support. An urgent CT chest/abdo/pelvis was done which revealed complete opacification of right lung with air bronchogram and patchy left lung consolidation, with ascites, and gallstones, anasarca. LABS; Bili 10, rest of LFT normal, HGB 11, WCC: 19, plts-93, INR--1.7, bun 51, creat: 2.4 UA pos for large bld, protein, leuk esterase Review of Systems Review of Systems: Yes unobtainable due to endotracheal tube and Unobtainable due to mental condition [facility] Past Medical History Medical History Acromegaly Asthma Diabetes type 2, uncontrolled Diabetic nephropathy associated with type 2 diabetes mellitus Dyslipidemia Elevated TSH Goiter HTN (hypertension) 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 alf (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 insulin Morbid obesity Non-toxic multinodular goiter AMY (obstructive sleep apnea) PCOS (polycystic ovarian syndrome) Status post abdominal paracentesis Family History Family History Father Unknown family medical history Mother Hx of type 1 diabetes mellitus Surgical History Surgical History Hx of colonoscopy Hx of endoscopy Social History Social History Household Members: Spouse Housing: Apartment Do you presently have visiting nurse or other home services: Yes (2x/week) Alcohol intake: never Patient Tobacco Use Status: Former Tobacco user Quit Date: 7 yrs ago Second Hand Smoke Exposure: Yes Substance Use Type: Marijuana service: No Current occupational status: disabled 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 Meds Allergies Allergy/AdvReac Type Severity Reaction Status Date / Time ibuprofen [From MOTRIN] Allergy Intermediate RASH Verified 06/16/22 13:24 penicillin V Allergy Mild hives Verified 06/16/22 13:24 codeine Allergy Unknown Verified 06/16/22 13:24 Rx- listed on H&P lidocaine Allergy Blister Verified 06/16/22 13:24 Active Medications: Current Medications Acetaminophen (Acetaminophen 325 Mg Tablet) 650 mg PO Q6H PRN PRN Reason: Pain, Mild (Pain Scale 1-3) Last Admin: 06/23/22 10:00 Dose: 650 mg Albuterol Sulfate (Albuterol Sulfate 90 Mcg 8 Gm Inhaler) 2 puff INHALE RQ6H [facility] Last Admin: 06/24/22 12:04 Dose: Not Given Chlorhexidine Gluconate (Chlorhexidine Gluc Oral Rinse 15 Ml Mouthwash) 15 ml BUCCAL TID [facility] Last Admin: 06/24/22 13:45 Dose: 15 ml Albuterol Sulfate 2.5 mg/ (Ipratropium [place] 0.5 mg) 0 mg INHALE QID PRN PRN Reason: Shortness of Breath/Wheezing Docusate Sodium (Docusate Sodium 100 Mg Capsule) 100 mg PO DAILY PRN PRN Reason: Constipation Famotidine (Famotidine/Pf 20 Mg/2 Ml Vial) 20 mg IVPUSH DAILY [facility] Last Admin: 06/24/22 08:34 Dose: 20 mg Gabapentin (Gabapentin 300 Mg Capsule) 300 mg PO BEDTIME [facility] Last Admin: 06/23/22 23:04 Dose: Not Given Glucose (Glucose Gel 15 Gm Gel..Gram.) 15 gm PO Q15M PRN; Protocol PRN Reason: per Hypoglycemia Standing Ord. Vasopressin (Vasostrict) 20 unit in 100 mls @ 12 mls/hr IV .Q8H20M [facility] Last Admin: 06/24/22 09:51 Dose: 0.04 unit/min, 12 mls/hr Norepinephrine Bitartrate (Levophed) 8 mg in 250 mls @ 0 mls/hr IV .Q0M [facility]; Protocol Last Admin: 06/24/22 13:45 Dose: 0.15 mcg/kg/min, 35.72 mls/hr Midazolam HCl (Versed) 50 mg in 50 mls @ 2 mls/hr IVCONT .Q24H [facility] Last Admin: 06/24/22 07:41 Dose: 2 mg/hr, 2 mls/hr Propofol (Diprivan) 1,000 mg in 100 mls @ 0 mls/hr IVCONT .Q0M [facility]; Protocol Last Admin: 06/24/22 12:29 Dose: 50 mcg/kg/min, 38.1 mls/hr Furosemide 200 mg/ Sodium (Chloride) 100 mls @ 5 mls/hr IVCONT .Q20H [facility] Last Admin: 06/24/22 08:31 Dose: 10 mg/hr, 5 mls/hr Insulin Human Regular (Myxredlin) 100 unit in 100 mls @ 0 mls/hr IVCONT .Q0M [facility]; Protocol Last Titration: 06/24/22 10:16 Dose: 2.5 unit/hr, 2.5 mls/hr Insulin Glargine (Insulin Glargine,Hum.Rec.Anlog 100 Unit/Ml 10 Ml Vial) 45 unit SUBCUT BEDTIME [facility] Last Admin: 06/23/22 22:09 Dose: Not Given Insulin Human Lispro (Insulin Lispro 100 Unit/Ml 3 Ml Vial) 0 unit SUBCUT Q6H [facility]; Protocol Last Admin: 06/24/22 07:18 Dose: Not Given Lactulose (Lactulose 20 Gm/30 Ml Solution) 20 gm PO BID [facility] Last Admin: 06/24/22 08:34 Dose: 20 gm Levothyroxine Sodium (Levothyroxine Sodium 50 Mcg Tablet) 50 mcg PO DAILY@0600 [facility] Last Admin: 06/23/22 05:58 Dose: 50 mcg Levothyroxine Sodium (Levothyroxine Sodium 100 Mcg/5 Ml Vial) 25 mcg IVPUSH DAILY@0600 [facility] Last Admin: 06/24/22 10:32 Dose: 25 mcg Loratadine (Loratadine 10 Mg Tablet) 10 mg PO DAILY PRN PRN Reason: Allergy Symptoms Midodrine (Midodrine Hcl 5 Mg Tablet) 5 mg PO TID [facility] Last Admin: 06/23/22 23:04 Dose: Not Given Octreotide Acetate (Octreotide Acetate 100 Mcg/Ml Ampul) 200 mcg SUBCUT Q8H [facility] Last Admin: 06/24/22 13:45 Dose: 200 mcg Ondansetron HCl (Ondansetron Hcl 4 Mg/2 Ml Vial) 4 mg IVPUSH Q8H PRN PRN Reason: Nausea and Vomiting Last Admin: 06/24/22 01:52 Dose: 4 mg Pharmacy Consult (Consult Rx Perform Med Rec) 1 each MISCELLANE ONCE PRN PRN Reason: Consult order Sodium Chloride (0.9 % Sodium Chloride Flush 3 Ml Syringe) 3 ml IVFLUSH QSHIFT [facility] Last Admin: 06/24/22 07:54 Dose: 3 ml Thiamine HCl (Thiamine Hcl 100 Mg Tablet) 100 mg PO DAILY [facility] Last Admin: 06/24/22 08:34 Dose: 100 mg Vitamin E (Vitamin E (Dl,Tocopheryl Acet) 180 Mg (400 Unit) Capsule) 180 mg PO BID [facility] Last Admin: 06/23/22 23:05 Dose: Not Given Zinc Sulfate (Zinc Sulfate 220 Mg Capsule) 220 mg PO DAILY [facility] Last Admin: 06/23/22 10:00 Dose: 220 mg Home Medications Medication Instructions Recorded Confirmed Last Taken Type albuterol sulfate 90 mcg/actuation 2 puff inhalation Q6H 08/16/20 06/21/22 3 Days Ago History aerosol inhaler (Ventolin HFA) ~05/28/22 blood sugar diagnostic (JosiahStyle #10 ea 08/16/20 08/16/20 Unknown History Lite Strips) fluticasone propionate 220 2 puff inhalation BID 08/16/20 06/21/22 3 Days Ago History mcg/actuation HFA aerosol inhaler ~05/28/22 (Flovent HFA) lancets 28 gauge (FreeStyle #100 ea 08/16/20 08/16/20 Unknown History Lancets) gabapentin 300 mg capsule 300 mg PO BEDTIME pain 11/04/21 06/21/22 3 Days Ago History ~05/28/22 levothyroxine 50 mcg tablet 50 mcg PO DAILY@0600 11/04/21 06/21/22 3 Days Ago History ~05/28/22 dulaglutide 1.5 mg/0.5 mL 1.5 mg subcut MO@0900 04/28/22 06/21/22 06/16/22 History subcutaneous pen injector (Trulicity) vitamin A 10,000 unit capsule 1 cap PO DAILY 04/28/22 06/21/22 3 Days Ago History ~05/28/22 insulin glargine U-300 conc 300 80 unit subcut BEDTIME 04/30/22 06/21/22 3 Days Ago History unit/mL (3 mL) subcutaneous pen ~05/28/22 (Toujeo Max U-300 SoloStar) acetaminophen 325 mg tablet 2 tab PO Q8H PRN pain 05/31/22 06/21/22 3 Days Ago History ~05/28/22 insulin lispro 100 unit/mL 26 unit subcut TIDAC 05/31/22 06/21/22 3 Days Ago History subcutaneous pen ~05/28/22 ipratropium 0.5 mg-albuterol 3 mg 1 amp inhalation QID PRN dyspnea 05/31/22 06/21/22 3 Days Ago History (2.5 mg base)/3 mL nebulization ~05/28/22 soln lisinopril 2.5 mg tablet 1 tab PO DAILY 05/31/22 06/21/22 3 Days Ago History ~05/28/22 loratadine 10 mg tablet 1 tab PO DAILY PRN Allergy Symptoms 05/31/22 06/21/22 3 Days Ago History ~05/28/22 vitamin E (dl, acetate) 180 mg 1 cap PO BID 05/31/22 06/21/22 3 Days Ago History (400 unit) capsule ~05/28/22 furosemide 20 mg tablet 20 mg PO DAILY 06/21/22 06/21/22 Unknown History zinc sulfate 50 mg zinc (220 mg) 1 cap PO DAILY 06/21/22 06/21/22 Unknown History capsule Physical Exam Vital Signs: Vital Signs: Last Vital Signs Temp 97.8 F 06/24/22 12:00 Pulse 85 06/24/22 13:45 Resp 16 06/24/22 13:00 BP 118/49 L 06/24/22 13:45 Pulse Ox 96 06/24/22 13:00 O2 Del Method 06/24/22 13:00 O2 Flow Rate 15 06/24/22 01:17 FiO2 100 06/24/22 13:00 BMI result Body Mass Index 49.4 EXAM: GENERAL: The patient is obese, on ventilator VITAL SIGNS:see workflow HEENT: icteric sclerae, PERRLA, EOMI. Oropharynx clear. Moist mucous membranes. Conjunctivae appear well perfused. thick neck CHEST: Chest wall is nontender. HEART: Regular rate and rhythm without murmurs. LUNGS: Clear to auscultation bilaterally. ABDOMEN: Soft, positive bowel sounds, nontender, no organomegaly.no flank tenderness SKIN: No rash, no excessive bruising, petechiae, or purpura. NEUROLOGIC: intubated Extrem: General: Yes edema Results Labs 06/24/22 04:21 06/24/22 04:21 Labs: Short CBC 06/24/22 06/24/22 Range/Units 00:48 04:21 WBC 7.7 12.5 H (4.8-10.8) X10*3/uL Hgb 9.4 L D 10.5 L (12.0-16.0) g/dl Hct 28.2 L D 31.9 L (37.0-47.0) % Plt Count 34 L 56 L D (160-400) X10*3/uL BMP 06/24/22 06/24/22 04:21 04:21 Sodium 133 L 134 L Potassium 5.2 H D 5.2 H Chloride 94 L 95 L Carbon Dioxide 27 26 BUN 45 H 45 H Creatinine 2.14 H 2.16 H Calcium 8.4 8.5 Liver Function 06/24/22 06/24/22 Range/Units 04:21 04:21 Total Bilirubin 12.9 H 13.0 H (0.0-1.0) mg/dL AST 24 24 (5-31) U/L ALT < 6 < 6 (0-31) U/L Alkaline Phosphatase 50 53 (39-117) U/L Albumin 4.1 4.1 (3.5-5.0) g/dL Urine 06/24/22 Range/Units 09:14 Urine Color Dark Yellow Urine Appearance Cloudy Urine pH 5.0 (5.0-9.0) Ur Specific [place] 1.015 (1.005-1.025) Urine Protein 100 (2+) H (Neg-Trace) mg/dL Urine Glucose (UA) Negative (Negative) mg/dL Microbiology Microbiology Results: Microbiology 06/22/22 15:05 Peritoneal Fluid Gram Stain - Final 06/22/22 15:05 Peritoneal Fluid Routine Culture - Final No growth after 2 days 06/22/22 15:05 Peritoneal Fluid Anaerobic Culture - Preliminary No growth to date. Imaging CT scan - abdomen: My impression: cirrhosis, gallstone, anasarca, consolidation in lungs, ascites Assessment and Plan (1) Acute on chronic kidney failure: Qualifiers: Acute renal failure type: with acute tubular necrosis Status: Acute (2) 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: Status: Acute Plan 1/ Decompensated acute on chronic liver failure with acute hypoxic respiratory failure complicated by DULCE, which may have been precipitated by TRALI or HCAP. She also has recent MSSA bacteremia so endocarditis is possible. She may have hepatorenal syndrome but her UA has blood and protein so ATN or another pathology such as interstitial nephritis, pulm renal syndrome is not excluded. PLAN: 1/ Given High bili would check hemolysis labs and peripheral smear 2/ renal team already on board and pt receiving octretotide and pressors , consider further work up to r/o other causes of renal failure e.g pulm renal syndromes --if HRS is still suspected may need transfer to transplant center 3/ cont to trend LFT and INR 4/ can give albumin 25%, 100 g in divided doses if not vol overloaded imaging and labs, chart reviewed with Dr Garibay in ICU Time Spent With Patient Time: Total time managing care of this patient today ____ minutes. Procedures Date of Service Date of Service: 06/24/22
[2022-06-24 14:03] LABS: Glucose, Whole Blood 226 mg/dL (60-115)
[2022-06-24 14:43] LABS: VBG Base Excess 0.6 mmol/L; VBG HCO3 23 mmol/L (22-26); VBG pCO2 32 mmHg; VBG pH 7.47 (7.32-7.43); VBG pO2 191 mmHg
[2022-06-24 15:04] LABS: MANUAL DIFF FLAG NO
[2022-06-24 15:05] LABS: Glucose, Whole Blood 210 mg/dL (60-115)
[2022-06-24 15:07] LABS: Eosinophils Percent Auto 0.1 % (0-4); Hemoglobin 11.2 g/dl (12.0-16.0); Lymphocytes Percent Auto 3.4 % (20-40); Mean Corpuscular Volume 97.1 fL (80.0-98.0); Monocytes Absolute Auto 0.5 X10*3/uL (0.1-1.2); Monocytes Percent Auto 2.8 % (2-11); PLT CLUMP 1; Red Cell Distribution Width 17.2 % (11.0-16.0); SCAN SMEAR FLAG 1
[2022-06-24 15:09] LABS: Basophils Percent Auto 0.2 % (0-2); Hematocrit 33.6 % (37.0-47.0); Imm Gran Abs Auto 0.11 X10*3/uL (0.00-0.03); Imm Gran Pct Auto 0.6 % (0.0-0.4); Lymphocytes Absolute Auto 0.7 X10*3/uL (1.2-4.9); Mean Corpuscular HGB Conc 33.3 g/dl (31.0-35.0); Mean Corpuscular Hemoglobin 32.4 pg (27.0-33.0); Mean Platelet Volume 11.7 fL (9.4-12.3); Neutrophils Absolute Auto 18.2 x10*3/uL (2.0-8.3); Neutrophils Percent Auto 92.9 % (45-73); Red Blood Count 3.46 X10*6/uL (4.20-5.50)
[2022-06-24 15:17] LABS: Platelet Count 93 X10*3/uL (160-400); White Blood Count 19.6 X10*3/uL (4.8-10.8)
--- NOTE | 2022-06-24 15:19 | P.PNNP_ITS ---
Subjective Subjective Date of Service: 06/24/22 Interval history: Seen and examined,events noted Physical Exam Vital Signs: Vital Signs: Last Vital Signs Temp 97.8 F 06/24/22 12:00 Pulse 76 06/24/22 15:00 Resp 16 06/24/22 15:00 BP 117/46 L 06/24/22 15:00 Pulse Ox 94 06/24/22 15:00 O2 Del Method 06/24/22 14:00 O2 Flow Rate 15 06/24/22 01:17 FiO2 100 06/24/22 15:13 BMI result Body Mass Index 49.4 Const: Other: no acute distress Resp: Other: clear to auscultation bilaterally. No rales rhonchi or wheezes Cardio: Other: no S4; positive S1-S2; no S3 murmurs rubs or gallops GI: Other: soft nontender nondistended normoactive bowel sounds Extrem: Other: no edema bilaterally Objective Data Labs 06/24/22 14:38 06/24/22 04:21 Labs: Laboratory Results - last 24 hr 06/23/22 06/23/22 06/23/22 09:32 16:47 20:21 WBC RBC Hgb Hct MCV MCH MCHC RDW Plt Count MPV Immature Gran % (Auto) Neut % (Auto) Lymph % (Auto) [place] % (Auto) Eos % (Auto) Baso % (Auto) Lymph # (Auto) [place] # (Auto) Eos # (Auto) Baso # (Auto) Abs Immat Gran (auto) Absolute Neuts (auto) Absolute Nucleated RBC Nucleated RBC % (auto) O2 Saturation ABG pH at Pt Temp ABG pCO2 at Pt Temp ABG pO2 at Pt Temp ABG HCO3 ABG Base Excess (Actual) VBG pH VBG pCO2 VBG pO2 VBG HCO3 VBG O2 Saturation VBG Base Excess Sodium Potassium Chloride Carbon Dioxide Anion Gap BUN Creatinine Estim Creat Clear Calc Estimated GFR POC Glucose 105 92 Random Glucose Fasting Glucose Calcium Phosphorus Magnesium Total Bilirubin AST ALT Alkaline Phosphatase Troponin I High Sens Total Protein Albumin Urine Color Urine Appearance Urine pH Ur Specific [place] Urine Protein Urine Glucose (UA) Urine Ketones Urine Blood Urine Nitrite Ur Leukocyte Esterase Urine RBC Urine WBC Ur Squamous Epith Cells Urine Bacteria Hyaline Casts Blood Type A Positive Antibody Screen NEGATIVE Crossmatch See Detail 06/23/22 06/23/22 06/23/22 22:05 22:13 23:50 WBC RBC Hgb Hct MCV MCH MCHC RDW Plt Count MPV Immature Gran % (Auto) Neut % (Auto) Lymph % (Auto) [place] % (Auto) Eos % (Auto) Baso % (Auto) Lymph # (Auto) [place] # (Auto) Eos # (Auto) Baso # (Auto) Abs Immat Gran (auto) Absolute Neuts (auto) Absolute Nucleated RBC Nucleated RBC % (auto) O2 Saturation 81.0 ABG pH at Pt Temp 7.50 H ABG pCO2 at Pt Temp 34 ABG pO2 at Pt Temp 48 L* ABG HCO3 27 H ABG Base Excess (Actual) 4.3 VBG pH VBG pCO2 VBG pO2 VBG HCO3 VBG O2 Saturation VBG Base Excess Sodium Potassium Chloride Carbon Dioxide Anion Gap BUN Creatinine Estim Creat Clear Calc Estimated GFR POC Glucose Random Glucose Fasting Glucose Calcium Phosphorus Magnesium Total Bilirubin AST ALT Alkaline Phosphatase Troponin I High Sens 37.0 H D 35.6 H Total Protein Albumin Urine Color Urine Appearance Urine pH Ur Specific [place] Urine Protein Urine Glucose (UA) Urine Ketones Urine Blood Urine Nitrite Ur Leukocyte Esterase Urine RBC Urine WBC Ur Squamous Epith Cells Urine Bacteria Hyaline Casts Blood Type Antibody Screen Crossmatch 06/24/22 06/24/22 06/24/22 00:48 02:23 04:21 WBC 7.7 RBC 2.88 L D Hgb 9.4 L D Hct 28.2 L D MCV 97.9 MCH 32.6 MCHC 33.3 RDW 16.8 H Plt Count 34 L MPV 9.6 Immature Gran % (Auto) 0.4 Neut % (Auto) 79.1 H Lymph % (Auto) 6.4 L [place] % (Auto) 10.3 Eos % (Auto) 3.0 Baso % (Auto) 0.8 Lymph # (Auto) 0.5 L [place] # (Auto) 0.8 Eos # (Auto) 0.2 Baso # (Auto) 0.1 Abs Immat Gran (auto) 0.03 Absolute Neuts (auto) 6.1 Absolute Nucleated RBC 0.000 Nucleated RBC % (auto) 0.0 O2 Saturation 89.0 ABG pH at Pt Temp 7.50 H ABG pCO2 at Pt Temp 34 ABG pO2 at Pt Temp 59 L ABG HCO3 26 ABG Base Excess (Actual) 3.8 VBG pH VBG pCO2 VBG pO2 VBG HCO3 VBG O2 Saturation VBG Base Excess Sodium 133 L Potassium 5.2 H D Chloride 94 L Carbon Dioxide 27 Anion Gap 17 BUN 45 H Creatinine 2.14 H Estim Creat Clear Calc 42.2 Estimated GFR 25 POC Glucose Random Glucose Fasting Glucose 99 Calcium 8.4 Phosphorus Magnesium Total Bilirubin 12.9 H AST 24 ALT < 6 Alkaline Phosphatase 50 Troponin I High Sens Total Protein 6.6 Albumin 4.1 Urine Color Urine Appearance Urine pH Ur Specific [place] Urine Protein Urine Glucose (UA) Urine Ketones Urine Blood Urine Nitrite Ur Leukocyte Esterase Urine RBC Urine WBC Ur Squamous Epith Cells Urine Bacteria Hyaline Casts Blood Type Antibody Screen Crossmatch 06/24/22 06/24/22 06/24/22 04:21 04:21 06:38 WBC 12.5 H RBC 3.28 L Hgb 10.5 L Hct 31.9 L MCV 97.3 MCH 32.0 MCHC 32.9 RDW 16.9 H Plt Count 56 L D MPV 11.1 Immature Gran % (Auto) 0.6 H Neut % (Auto) 79.7 H Lymph % (Auto) 5.6 L [place] % (Auto) 10.2 Eos % (Auto) 3.0 Baso % (Auto) 0.9 Lymph # (Auto) 0.7 L [place] # (Auto) 1.3 H Eos # (Auto) 0.4 Baso # (Auto) 0.1 Abs Immat Gran (auto) 0.07 H Absolute Neuts (auto) 10.0 H Absolute Nucleated RBC 0.000 Nucleated RBC % (auto) 0.0 O2 Saturation ABG pH at Pt Temp ABG pCO2 at Pt Temp ABG pO2 at Pt Temp ABG HCO3 ABG Base Excess (Actual) VBG pH VBG pCO2 VBG pO2 VBG HCO3 VBG O2 Saturation VBG Base Excess Sodium 134 L Potassium 5.2 H Chloride 95 L Carbon Dioxide 26 Anion Gap 18 BUN 45 H Creatinine 2.16 H Estim Creat Clear Calc 41.7 Estimated GFR 24 POC Glucose 143 H Random Glucose 98 Fasting Glucose Calcium 8.5 Phosphorus 4.5 Magnesium 1.8 Total Bilirubin 13.0 H AST 24 ALT < 6 Alkaline Phosphatase 53 Troponin I High Sens Total Protein 6.7 Albumin 4.1 Urine Color Urine Appearance Urine pH Ur Specific [place] Urine Protein Urine Glucose (UA) Urine Ketones Urine Blood Urine Nitrite Ur Leukocyte Esterase Urine RBC Urine WBC Ur Squamous Epith Cells Urine Bacteria Hyaline Casts Blood Type Antibody Screen Crossmatch 06/24/22 06/24/22 06/24/22 07:38 08:57 09:14 WBC RBC Hgb Hct MCV MCH MCHC RDW Plt Count MPV Immature Gran % (Auto) Neut % (Auto) Lymph % (Auto) [place] % (Auto) Eos % (Auto) Baso % (Auto) Lymph # (Auto) [place] # (Auto) Eos # (Auto) Baso # (Auto) Abs Immat Gran (auto) Absolute Neuts (auto) Absolute Nucleated RBC Nucleated RBC % (auto) O2 Saturation ABG pH at Pt Temp ABG pCO2 at Pt Temp ABG pO2 at Pt Temp ABG HCO3 ABG Base Excess (Actual) VBG pH VBG pCO2 VBG pO2 VBG HCO3 VBG O2 Saturation VBG Base Excess Sodium Potassium Chloride Carbon Dioxide Anion Gap BUN Creatinine Estim Creat Clear Calc Estimated GFR POC Glucose 140 H 166 H Random Glucose Fasting Glucose Calcium Phosphorus Magnesium Total Bilirubin AST ALT Alkaline Phosphatase Troponin I High Sens Total Protein Albumin Urine Color Dark Yellow Urine Appearance Cloudy Urine pH 5.0 Ur Specific [place] 1.015 Urine Protein 100 (2+) H Urine Glucose (UA) Negative Urine Ketones Negative Urine Blood Large (3+) H Urine Nitrite Negative Ur Leukocyte Esterase Trace H Urine RBC >20 H Urine WBC 0-5 Ur Squamous Epith Cells 0-2 Urine Bacteria None Seen Hyaline Casts 3-5 Blood Type Antibody Screen Crossmatch 06/24/22 06/24/22 06/24/22 10:11 11:00 12:18 WBC RBC Hgb Hct MCV MCH MCHC RDW Plt Count MPV Immature Gran % (Auto) Neut % (Auto) Lymph % (Auto) [place] % (Auto) Eos % (Auto) Baso % (Auto) Lymph # (Auto) [place] # (Auto) Eos # (Auto) Baso # (Auto) Abs Immat Gran (auto) Absolute Neuts (auto) Absolute Nucleated RBC Nucleated RBC % (auto) O2 Saturation ABG pH at Pt Temp ABG pCO2 at Pt Temp ABG pO2 at Pt Temp ABG HCO3 ABG Base Excess (Actual) VBG pH VBG pCO2 VBG pO2 VBG HCO3 VBG O2 Saturation VBG Base Excess Sodium Potassium Chloride Carbon Dioxide Anion Gap BUN Creatinine Estim Creat Clear Calc Estimated GFR POC Glucose 183 H 180 H 177 H Random Glucose Fasting Glucose Calcium Phosphorus Magnesium Total Bilirubin AST ALT Alkaline Phosphatase Troponin I High Sens Total Protein Albumin Urine Color Urine Appearance Urine pH Ur Specific [place] Urine Protein Urine Glucose (UA) Urine Ketones Urine Blood Urine Nitrite Ur Leukocyte Esterase Urine RBC Urine WBC Ur Squamous Epith Cells Urine Bacteria Hyaline Casts Blood Type Antibody Screen Crossmatch 06/24/22 06/24/22 06/24/22 13:55 14:35 14:38 WBC 19.6 H RBC 3.46 L Hgb 11.2 L Hct 33.6 L MCV 97.1 MCH 32.4 MCHC 33.3 RDW 17.2 H Plt Count 93 L D MPV 11.7 Immature Gran % (Auto) 0.6 H Neut % (Auto) 92.9 H Lymph % (Auto) 3.4 L [place] % (Auto) 2.8 Eos % (Auto) 0.1 Baso % (Auto) 0.2 Lymph # (Auto) 0.7 L [place] # (Auto) 0.5 Eos # (Auto) 0.0 Baso # (Auto) 0.0 Abs Immat Gran (auto) 0.11 H Absolute Neuts (auto) 18.2 H Absolute Nucleated RBC 0.000 Nucleated RBC % (auto) 0.0 O2 Saturation ABG pH at Pt Temp ABG pCO2 at Pt Temp ABG pO2 at Pt Temp ABG HCO3 ABG Base Excess (Actual) VBG pH 7.47 H VBG pCO2 32 VBG pO2 191 VBG HCO3 23 VBG O2 Saturation 99.0 VBG Base Excess 0.6 Sodium Potassium Chloride Carbon Dioxide Anion Gap BUN Creatinine Estim Creat Clear Calc Estimated GFR POC Glucose 226 H Random Glucose Fasting Glucose Calcium Phosphorus Magnesium Total Bilirubin AST ALT Alkaline Phosphatase Troponin I High Sens Total Protein Albumin Urine Color Urine Appearance Urine pH Ur Specific [place] Urine Protein Urine Glucose (UA) Urine Ketones Urine Blood Urine Nitrite Ur Leukocyte Esterase Urine RBC Urine WBC Ur Squamous Epith Cells Urine Bacteria Hyaline Casts Blood Type Antibody Screen Crossmatch 06/24/22 15:02 WBC RBC Hgb Hct MCV MCH MCHC RDW Plt Count MPV Immature Gran % (Auto) Neut % (Auto) Lymph % (Auto) [place] % (Auto) Eos % (Auto) Baso % (Auto) Lymph # (Auto) [place] # (Auto) Eos # (Auto) Baso # (Auto) Abs Immat Gran (auto) Absolute Neuts (auto) Absolute Nucleated RBC Nucleated RBC % (auto) O2 Saturation ABG pH at Pt Temp ABG pCO2 at Pt Temp ABG pO2 at Pt Temp ABG HCO3 ABG Base Excess (Actual) VBG pH VBG pCO2 VBG pO2 VBG HCO3 VBG O2 Saturation VBG Base Excess Sodium Potassium Chloride Carbon Dioxide Anion Gap BUN Creatinine Estim Creat Clear Calc Estimated GFR POC Glucose 210 H Random Glucose Fasting Glucose Calcium Phosphorus Magnesium Total Bilirubin AST ALT Alkaline Phosphatase Troponin I High Sens Total Protein Albumin Urine Color Urine Appearance Urine pH Ur Specific [place] Urine Protein Urine Glucose (UA) Urine Ketones Urine Blood Urine Nitrite Ur Leukocyte Esterase Urine RBC Urine WBC Ur Squamous Epith Cells Urine Bacteria Hyaline Casts Blood Type Antibody Screen Crossmatch Microbiology Microbiology Results: Microbiology 06/22/22 15:05 Peritoneal Fluid Gram Stain - Final 06/22/22 15:05 Peritoneal Fluid Routine Culture - Final No growth after 2 days 06/22/22 15:05 Peritoneal Fluid Anaerobic Culture - Preliminary No growth to date. Procedures Date of Service Date of Service: 06/24/22 Assessment & Plan Assessment and plan (1) 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: Status: Acute (2) Hypotension: Status: Acute (3) Acute on chronic kidney failure: Status: Acute (4) MSSA bacteremia: Status: Acute (5) Hyponatremia: Status: Acute Plan Now Resp failre req intubation and wques related to Xfusion (TACO) and SHOCK on pressors in ICU and diuretics started by ICU - Non-Oliguric DULCE: most c/w HRSyn but now signif risk for furhter DULCE from ischemic ATN; initially was c/w HRS and LgVol Paracentesis possible precipitating HRS - Cirrhosis - Recurrent severe ascites requiring recurrent taps - DM - Anemia: s/p xfusion Overall critically ill now and atsignif risk for needing [employer] in next 24-48 hrs REC: no indications for [employer] at this time; optimize HDynamics and renal perfusion; track UOP/renal func; avoid Ntoxins Will follow clsoley w team Time Spent With Patient Time: Total time managing care of this patient today ____ minutes. Progress Note: Quality Stroke Does the patient have a stroke diagnosis?: No
[2022-06-24 15:34] LABS: Alanine Aminotransferase < 6 U/L (0-31); Albumin Level 4.1 g/dL (3.5-5.0); Alkaline Phosphatase 56 U/L (39-117); Anion Gap 18 (12-20); Aspartate Amino Transferase 22 U/L (5-31); Bilirubin Total 10.7 mg/dL (0.0-1.0); Blood Urea Nitrogen 51 mg/dL (9-16); Calcium 8.9 mg/dL (8.4-10.2); Carbon Dioxide 25 mmol/L (22-29); Chloride 93 mmol/L (96-108); Creatinine Clr Calc Pharmacy 37.1; Estimated Glomerular Filt Rate 21; Glucose Random 209 mg/dL (60-115); Potassium 5.4 mmol/L (3.3-5.1); Sodium 131 mmol/L (135-145); Total Protein 6.8 g/dL (6.5-8.0)
[2022-06-24 16:13] LABS: Glucose, Whole Blood 215 mg/dL (60-115)
--- NOTE | 2022-06-24 16:16 | P.PNCC_ITS ---
Subjective Subjective Date of Service: 06/24/22 Interval History: this 47-year-old morbidly obese female type 2 diabetic with polycystic ovary and non alcoholic steatohepatitis with with cirrhosis and advanced portal hypertension and hepatic insufficiency and had a paracentesis which showed no signs of infection so there was no spontaneous bacterial peritonitis but excessive volume of fluid was removed precipitating a potential hepato renal issue and also there was a drop in hemoglobin and 2 units of packed red cells were transfused and right after that patient developed respiratory distress and became profoundly hypoxic responding to nothing including diuresis looking like a transfusion related acute lung injury requiring intubation and of very low prolonged manipulation of the ventilator to restore decent oxygen saturation of but the entire right lung was the most and and involved and was extensively consolidated but in addition atelectatic and we had to use an inverse ratio ventilation for her intractably on 100% FiO2 with very high positive end- expiratory pressure of 14 to bring her saturations back to 90% and she was placed on vasopressin and octreotide for preservation of renal blood flow and so on our time never was hypotensive always had a good mean arterial pressure a knee intubation went very well without complication and no evidence at that time of aspiration although in the time leading up to this potentially under the influence of the noninvasive ventilation there may have been some degree of aspiration Critical Care Time (minutes): 90 Physical Exam Vital Signs: Vital Signs: Last Vital Signs Temp 97.8 F 06/24/22 12:00 Pulse 76 06/24/22 15:00 Resp 16 06/24/22 15:00 BP 117/46 L 06/24/22 15:00 Pulse Ox 94 06/24/22 15:00 O2 Del Method 06/24/22 14:00 O2 Flow Rate 15 06/24/22 01:17 FiO2 100 06/24/22 16:00 BMI result Body Mass Index 49.4 blood pressure was well maintained and she remained in normal sinus rhythm excellent bilateral carotid upstrokes and bedside echo demonstrating normal LV size and function without segmental wall motion abnormality CT scan of the chest shows no clear-cut evidence of ARDS small right-sided pleural effusion no pneumothorax and the abdomen but no acute pathology just moderate residual ascites skin is intact with no livedo in no acrocyanosis Objective Data Labs 06/24/22 14:38 06/24/22 14:38 Labs: Laboratory Results - last 24 hr 06/23/22 06/23/22 06/23/22 09:32 16:47 20:21 WBC RBC Hgb Hct MCV MCH MCHC RDW Plt Count MPV Immature Gran % (Auto) Neut % (Auto) Lymph % (Auto) [place] % (Auto) Eos % (Auto) Baso % (Auto) Lymph # (Auto) [place] # (Auto) Eos # (Auto) Baso # (Auto) Abs Immat Gran (auto) Absolute Neuts (auto) Absolute Nucleated RBC Nucleated RBC % (auto) O2 Saturation ABG pH at Pt Temp ABG pCO2 at Pt Temp ABG pO2 at Pt Temp ABG HCO3 ABG Base Excess (Actual) VBG pH VBG pCO2 VBG pO2 VBG HCO3 VBG O2 Saturation VBG Base Excess Sodium Potassium Chloride Carbon Dioxide Anion Gap BUN Creatinine Estim Creat Clear Calc Estimated GFR POC Glucose 105 92 Random Glucose Fasting Glucose Calcium Phosphorus Magnesium Total Bilirubin AST ALT Alkaline Phosphatase Troponin I High Sens Total Protein Albumin Urine Color Urine Appearance Urine pH Ur Specific Price Urine Protein Urine Glucose (UA) Urine Ketones Urine Blood Urine Nitrite Ur Leukocyte Esterase Urine RBC Urine WBC Ur Squamous Epith Cells Urine Bacteria Hyaline Casts Blood Type A Positive Antibody Screen NEGATIVE Crossmatch See Detail 06/23/22 06/23/22 06/23/22 22:05 22:13 23:50 WBC RBC Hgb Hct MCV MCH MCHC RDW Plt Count MPV Immature Gran % (Auto) Neut % (Auto) Lymph % (Auto) [place] % (Auto) Eos % (Auto) Baso % (Auto) Lymph # (Auto) [place] # (Auto) Eos # (Auto) Baso # (Auto) Abs Immat Gran (auto) Absolute Neuts (auto) Absolute Nucleated RBC Nucleated RBC % (auto) O2 Saturation 81.0 ABG pH at Pt Temp 7.50 H ABG pCO2 at Pt Temp 34 ABG pO2 at Pt Temp 48 L* ABG HCO3 27 H ABG Base Excess (Actual) 4.3 VBG pH VBG pCO2 VBG pO2 VBG HCO3 VBG O2 Saturation VBG Base Excess Sodium Potassium Chloride Carbon Dioxide Anion Gap BUN Creatinine Estim Creat Clear Calc Estimated GFR POC Glucose Random Glucose Fasting Glucose Calcium Phosphorus Magnesium Total Bilirubin AST ALT Alkaline Phosphatase Troponin I High Sens 37.0 H D 35.6 H Total Protein Albumin Urine Color Urine Appearance Urine pH Ur Specific Price Urine Protein Urine Glucose (UA) Urine Ketones Urine Blood Urine Nitrite Ur Leukocyte Esterase Urine RBC Urine WBC Ur Squamous Epith Cells Urine Bacteria Hyaline Casts Blood Type Antibody Screen Crossmatch 06/24/22 06/24/22 06/24/22 00:48 02:23 04:21 WBC 7.7 RBC 2.88 L D Hgb 9.4 L D Hct 28.2 L D MCV 97.9 MCH 32.6 MCHC 33.3 RDW 16.8 H Plt Count 34 L MPV 9.6 Immature Gran % (Auto) 0.4 Neut % (Auto) 79.1 H Lymph % (Auto) 6.4 L [place] % (Auto) 10.3 Eos % (Auto) 3.0 Baso % (Auto) 0.8 Lymph # (Auto) 0.5 L [place] # (Auto) 0.8 Eos # (Auto) 0.2 Baso # (Auto) 0.1 Abs Immat Gran (auto) 0.03 Absolute Neuts (auto) 6.1 Absolute Nucleated RBC 0.000 Nucleated RBC % (auto) 0.0 O2 Saturation 89.0 ABG pH at Pt Temp 7.50 H ABG pCO2 at Pt Temp 34 ABG pO2 at Pt Temp 59 L ABG HCO3 26 ABG Base Excess (Actual) 3.8 VBG pH VBG pCO2 VBG pO2 VBG HCO3 VBG O2 Saturation VBG Base Excess Sodium 133 L Potassium 5.2 H D Chloride 94 L Carbon Dioxide 27 Anion Gap 17 BUN 45 H Creatinine 2.14 H Estim Creat Clear Calc 42.2 Estimated GFR 25 POC Glucose Random Glucose Fasting Glucose 99 Calcium 8.4 Phosphorus Magnesium Total Bilirubin 12.9 H AST 24 ALT < 6 Alkaline Phosphatase 50 Troponin I High Sens Total Protein 6.6 Albumin 4.1 Urine Color Urine Appearance Urine pH Ur Specific Price Urine Protein Urine Glucose (UA) Urine Ketones Urine Blood Urine Nitrite Ur Leukocyte Esterase Urine RBC Urine WBC Ur Squamous Epith Cells Urine Bacteria Hyaline Casts Blood Type Antibody Screen Crossmatch 06/24/22 06/24/22 06/24/22 04:21 04:21 06:38 WBC 12.5 H RBC 3.28 L Hgb 10.5 L Hct 31.9 L MCV 97.3 MCH 32.0 MCHC 32.9 RDW 16.9 H Plt Count 56 L D MPV 11.1 Immature Gran % (Auto) 0.6 H Neut % (Auto) 79.7 H Lymph % (Auto) 5.6 L [place] % (Auto) 10.2 Eos % (Auto) 3.0 Baso % (Auto) 0.9 Lymph # (Auto) 0.7 L [place] # (Auto) 1.3 H Eos # (Auto) 0.4 Baso # (Auto) 0.1 Abs Immat Gran (auto) 0.07 H Absolute Neuts (auto) 10.0 H Absolute Nucleated RBC 0.000 Nucleated RBC % (auto) 0.0 O2 Saturation ABG pH at Pt Temp ABG pCO2 at Pt Temp ABG pO2 at Pt Temp ABG HCO3 ABG Base Excess (Actual) VBG pH VBG pCO2 VBG pO2 VBG HCO3 VBG O2 Saturation VBG Base Excess Sodium 134 L Potassium 5.2 H Chloride 95 L Carbon Dioxide 26 Anion Gap 18 BUN 45 H Creatinine 2.16 H Estim Creat Clear Calc 41.7 Estimated GFR 24 POC Glucose 143 H Random Glucose 98 Fasting Glucose Calcium 8.5 Phosphorus 4.5 Magnesium 1.8 Total Bilirubin 13.0 H AST 24 ALT < 6 Alkaline Phosphatase 53 Troponin I High Sens Total Protein 6.7 Albumin 4.1 Urine Color Urine Appearance Urine pH Ur Specific Price Urine Protein Urine Glucose (UA) Urine Ketones Urine Blood Urine Nitrite Ur Leukocyte Esterase Urine RBC Urine WBC Ur Squamous Epith Cells Urine Bacteria Hyaline Casts Blood Type Antibody Screen Crossmatch 06/24/22 06/24/22 06/24/22 07:38 08:57 09:14 WBC RBC Hgb Hct MCV MCH MCHC RDW Plt Count MPV Immature Gran % (Auto) Neut % (Auto) Lymph % (Auto) [place] % (Auto) Eos % (Auto) Baso % (Auto) Lymph # (Auto) [place] # (Auto) Eos # (Auto) Baso # (Auto) Abs Immat Gran (auto) Absolute Neuts (auto) Absolute Nucleated RBC Nucleated RBC % (auto) O2 Saturation ABG pH at Pt Temp ABG pCO2 at Pt Temp ABG pO2 at Pt Temp ABG HCO3 ABG Base Excess (Actual) VBG pH VBG pCO2 VBG pO2 VBG HCO3 VBG O2 Saturation VBG Base Excess Sodium Potassium Chloride Carbon Dioxide Anion Gap BUN Creatinine Estim Creat Clear Calc Estimated GFR POC Glucose 140 H 166 H Random Glucose Fasting Glucose Calcium Phosphorus Magnesium Total Bilirubin AST ALT Alkaline Phosphatase Troponin I High Sens Total Protein Albumin Urine Color Dark Yellow Urine Appearance Cloudy Urine pH 5.0 Ur Specific Price 1.015 Urine Protein 100 (2+) H Urine Glucose (UA) Negative Urine Ketones Negative Urine Blood Large (3+) H Urine Nitrite Negative Ur Leukocyte Esterase Trace H Urine RBC >20 H Urine WBC 0-5 Ur Squamous Epith Cells 0-2 Urine Bacteria None Seen Hyaline Casts 3-5 Blood Type Antibody Screen Crossmatch 06/24/22 06/24/22 06/24/22 10:11 11:00 12:18 WBC RBC Hgb Hct MCV MCH MCHC RDW Plt Count MPV Immature Gran % (Auto) Neut % (Auto) Lymph % (Auto) [place] % (Auto) Eos % (Auto) Baso % (Auto) Lymph # (Auto) [place] # (Auto) Eos # (Auto) Baso # (Auto) Abs Immat Gran (auto) Absolute Neuts (auto) Absolute Nucleated RBC Nucleated RBC % (auto) O2 Saturation ABG pH at Pt Temp ABG pCO2 at Pt Temp ABG pO2 at Pt Temp ABG HCO3 ABG Base Excess (Actual) VBG pH VBG pCO2 VBG pO2 VBG HCO3 VBG O2 Saturation VBG Base Excess Sodium Potassium Chloride Carbon Dioxide Anion Gap BUN Creatinine Estim Creat Clear Calc Estimated GFR POC Glucose 183 H 180 H 177 H Random Glucose Fasting Glucose Calcium Phosphorus Magnesium Total Bilirubin AST ALT Alkaline Phosphatase Troponin I High Sens Total Protein Albumin Urine Color Urine Appearance Urine pH Ur Specific Price Urine Protein Urine Glucose (UA) Urine Ketones Urine Blood Urine Nitrite Ur Leukocyte Esterase Urine RBC Urine WBC Ur Squamous Epith Cells Urine Bacteria Hyaline Casts Blood Type Antibody Screen Crossmatch 06/24/22 06/24/22 06/24/22 13:55 14:35 14:38 WBC 19.6 H RBC 3.46 L Hgb 11.2 L Hct 33.6 L MCV 97.1 MCH 32.4 MCHC 33.3 RDW 17.2 H Plt Count 93 L D MPV 11.7 Immature Gran % (Auto) 0.6 H Neut % (Auto) 92.9 H Lymph % (Auto) 3.4 L [place] % (Auto) 2.8 Eos % (Auto) 0.1 Baso % (Auto) 0.2 Lymph # (Auto) 0.7 L [place] # (Auto) 0.5 Eos # (Auto) 0.0 Baso # (Auto) 0.0 Abs Immat Gran (auto) 0.11 H Absolute Neuts (auto) 18.2 H Absolute Nucleated RBC 0.000 Nucleated RBC % (auto) 0.0 O2 Saturation ABG pH at Pt Temp ABG pCO2 at Pt Temp ABG pO2 at Pt Temp ABG HCO3 ABG Base Excess (Actual) VBG pH 7.47 H VBG pCO2 32 VBG pO2 191 VBG HCO3 23 VBG O2 Saturation 99.0 VBG Base Excess 0.6 Sodium Potassium Chloride Carbon Dioxide Anion Gap BUN Creatinine Estim Creat Clear Calc Estimated GFR POC Glucose 226 H Random Glucose Fasting Glucose Calcium Phosphorus Magnesium Total Bilirubin AST ALT Alkaline Phosphatase Troponin I High Sens Total Protein Albumin Urine Color Urine Appearance Urine pH Ur Specific Price Urine Protein Urine Glucose (UA) Urine Ketones Urine Blood Urine Nitrite Ur Leukocyte Esterase Urine RBC Urine WBC Ur Squamous Epith Cells Urine Bacteria Hyaline Casts Blood Type Antibody Screen Crossmatch 06/24/22 06/24/22 06/24/22 14:38 15:02 16:09 WBC RBC Hgb Hct MCV MCH MCHC RDW Plt Count MPV Immature Gran % (Auto) Neut % (Auto) Lymph % (Auto) [place] % (Auto) Eos % (Auto) Baso % (Auto) Lymph # (Auto) [place] # (Auto) Eos # (Auto) Baso # (Auto) Abs Immat Gran (auto) Absolute Neuts (auto) Absolute Nucleated RBC Nucleated RBC % (auto) O2 Saturation ABG pH at Pt Temp ABG pCO2 at Pt Temp ABG pO2 at Pt Temp ABG HCO3 ABG Base Excess (Actual) VBG pH VBG pCO2 VBG pO2 VBG HCO3 VBG O2 Saturation VBG Base Excess Sodium 131 L Potassium 5.4 H Chloride 93 L Carbon Dioxide 25 Anion Gap 18 BUN 51 H Creatinine 2.43 H Estim Creat Clear Calc 37.1 Estimated GFR 21 POC Glucose 210 H 215 H Random Glucose 209 H Fasting Glucose Calcium 8.9 Phosphorus Magnesium Total Bilirubin 10.7 H AST 22 ALT < 6 Alkaline Phosphatase 56 Troponin I High Sens Total Protein 6.8 Albumin 4.1 Urine Color Urine Appearance Urine pH Ur Specific Price Urine Protein Urine Glucose (UA) Urine Ketones Urine Blood Urine Nitrite Ur Leukocyte Esterase Urine RBC Urine WBC Ur Squamous Epith Cells Urine Bacteria Hyaline Casts Blood Type Antibody Screen Crossmatch Microbiology Microbiology Results: Microbiology 06/22/22 15:05 Peritoneal Fluid Gram Stain - Final 06/22/22 15:05 Peritoneal Fluid Routine Culture - Final No growth after 2 days 06/22/22 15:05 Peritoneal Fluid Anaerobic Culture - Preliminary No growth to date. 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: Status: Acute (7) Hyponatremia: Status: Acute (8) Positive blood culture: Status: Acute (9) Coagulopathy: Status: Acute (10) Thrombocytopenia: Status: Acute (11) Pneumonia: Status: Acute (12) Ascites: Status: Acute (13) Acute hyponatremia: Status: Acute (14) ARDS (adult respiratory distress syndrome): Status: Acute (15) Acute respiratory failure with hypoxia: Status: Acute (16) Non-toxic multinodular goiter: Status: Acute (17) Diabetic nephropathy associated with type 2 diabetes mellitus: Status: Acute (18) Elevated TSH: Status: Acute (19) Morbid obesity: Status: Acute (20) PCOS (polycystic ovarian syndrome): Status: Acute (21) Diabetes type 2, uncontrolled: Status: Acute Plan so the plan as obviously maintenance of ventilator and with with very aggressive sedation because of difficulty to oxygenate and keep her on the inverse ratio mechanism in and because of the urticarial rash the cephalosporin was stopped given her history of penicillin allergy and Levaquin will be substituted for the methicillin sensitive Staph aureus bacteremia central line will be placed for central venous pressure measurement gauge fluids and follow renal function and remove her old midline because of the bact eremia renal consult to differentiate between ATN and acute hepatorenal syndrome and potentially change central line to [place] to better gauge volume requirements and because pressors including vasopressin and octreotide for renal perfusion and at least till a low dose feeding for mucosal integrity of the GI tract and probably will touch base with [facility] I may give 1 sitter just dose of vancomycin thrombocytopenia I am sure is due to hypersplenism and the coagulopathy which is simply the elevated prothrombin time is due to the hepatic insufficiency and of course factor deficiency but right now there is no clinically Quality Stroke Does the patient have a stroke diagnosis?: No VTE Prior VTE?: No VTE Risk Level:: Medical - moderate - high VTE Device Contraindication: N/A - Device Ordered VTE Drug Contraindication: Treatment Not Indicated
[2022-06-24] MEDS: vancomycin HCL 1,500 MG in 0.9 % Sodium Chloride 500 ML 333.33 MG IV (16:35)
[2022-06-24] MEDS: Urea 15 GM POWDER PO (16:36)
[2022-06-24 17:15] LABS: Glucose, Whole Blood 238 mg/dL (60-115)
--- NOTE | 2022-06-24 17:22 | PHA.PROG ---
Admission Date/Time: June 21, 2022 17:09 Indication: OTHER Weight in k.5 kg Adjusted body weight in K.04 Benge body weight in K.4 Obesity Dosing Indication % IBW: 49.4 Serum Creatinine - Last 168 Hours 06/21/22 06/22/22 06/23/22 15:43 05:51 07:52 Creatinine 2.00 H 1.87 H 2.07 H 06/24/22 06/24/22 06/24/22 04:21 04:21 14:38 Creatinine 2.14 H 2.16 H 2.43 H Estimated CrCl and GFR - Last 168 Hours 06/21/22 06/22/22 06/23/22 15:43 05:51 07:52 Estim Creat Clear Calc 47.7 51.0 43.6 Estimated GFR 27 29 26 06/24/22 06/24/22 06/24/22 04:21 04:21 14:38 Estim Creat Clear Calc 42.2 41.7 37.1 Estimated GFR 25 24 21 Vancomycin Loading Dose: 1500 MG Current Vancomycin Dosing Regimen: 500 MG Q24 Vancomycin Monitoring using AUC goal of 400 - 600 range with trough as surrogate marker: EXPECTED AUC OF 470 AFTER 3RD DOSE WITH TOXICITY OF 10% Date and Time for next Vancomycin Level to be drawn: TROUGH SCHEDULED FOR 06/27 @1400 BEFORE 4TH DOSE Pharmacist Comments on Vancomycin Plan: CONSERVATIVE DOSING DUE TO POOR RENAL FUNCTION AND OBESITY. WILL CONTINUE TO MONITOR SCR DAILY AND ADJUST DOSE IF NEEDED. Vancomycin dosing will take advantage of [employer] as a clinical decision support tool that uses Bayesian modeling to calculate individual patient's pharmacokinetic parameters and forecast the patient's drug concentration time course with the target goal AUC 24 range of 400 - 600 mg/L/hr.
[2022-06-24 18:15] LABS: Glucose, Whole Blood 236 mg/dL (60-115)
[2022-06-24 19:12] LABS: Glucose, Whole Blood 225 mg/dL (60-115)
[2022-06-24] MEDS: Norepinephrine Bitartrate/D5W 8 MG/250 ML PLAST..BAG 30.96 MG IV (19:52)
[2022-06-24 20:21] LABS: Glucose, Whole Blood 176 mg/dL (60-115)
[2022-06-24 20:54] LABS: Anion Gap 16 (12-20); Blood Urea Nitrogen 62 mg/dL (9-16); Calcium 8.8 mg/dL (8.4-10.2); Carbon Dioxide 27 mmol/L (22-29); Chloride 93 mmol/L (96-108); Creatinine Clr Calc Pharmacy 36.6; Estimated Glomerular Filt Rate 21; Glucose Random 205 mg/dL (60-115); Sodium 131 mmol/L (135-145)
[2022-06-24 21:05] LABS: Glucose, Whole Blood 172 mg/dL (60-115)
[2022-06-24] MEDS: Albuterol Sulfate (0.083%) 2.5 MG/3 ML VIAL.NEB INHALE (21:07)
[2022-06-24 22:14] LABS: Glucose, Whole Blood 197 mg/dL (60-115)
[2022-06-24] MEDS: propofoL 1,000 MG/100 ML VIAL 30.48 MG IVCONT (22:18)
[2022-06-24 23:03] LABS: Glucose, Whole Blood 196 mg/dL (60-115)
[2022-06-25] VITALS (34 sets, daily range): BP systolic 110–131; BP diastolic 52–67; PULSE 80–105; RESP 16–17; TEMP 34.6–37.6; O2SAT 95–100; BMI 52.5
[2022-06-25 00:48] LABS: Glucose, Whole Blood 171 mg/dL (60-115)
[2022-06-25] MEDS: Albuterol Sulfate (0.083%) 2.5 MG/3 ML VIAL.NEB INHALE ×5 (00:59→20:39)
[2022-06-25] MEDS: Vasopressin 20 UNIT/100 ML INFUS..BTL 12 UNIT IV (01:19)
[2022-06-25] MEDS: propofoL 1,000 MG/100 ML VIAL 30.48 MG IVCONT ×2 (01:20→04:04)
[2022-06-25] MEDS: Albumin Human 25 % 100 ML IV ×2 (02:13→07:30)
[2022-06-25 02:59] LABS: Glucose, Whole Blood 192 mg/dL (60-115)
[2022-06-25 04:05] LABS: Venous Blood Gas Refer to POC result
[2022-06-25 05:00] LABS: VBG Base Excess -0.4 mmol/L; VBG HCO3 24 mmol/L (22-26); VBG pCO2 40 mmHg; VBG pH 7.38 (7.32-7.43); VBG pO2 86 mmHg
[2022-06-25 05:06] LABS: MANUAL DIFF FLAG NO
[2022-06-25 05:06] LABS: Glucose, Whole Blood 194 mg/dL (60-115)
[2022-06-25] MEDS: Octreotide Acetate 100 MCG/ML AMPUL 200 MCG SUBCUT ×3 (05:06→20:19)
[2022-06-25] MEDS: Levothyroxine Sodium 100 MCG/5 ML VIAL 25 MCG IVPUSH (05:06)
[2022-06-25 05:14] LABS: Basophils Percent Auto 0.1 % (0-2); Eosinophils Percent Auto 0.1 % (0-4); Hematocrit 28.5 % (37.0-47.0); Hemoglobin 9.3 g/dl (12.0-16.0); Imm Gran Abs Auto 0.07 X10*3/uL (0.00-0.03); Imm Gran Pct Auto 0.5 % (0.0-0.4); Lymphocytes Absolute Auto 0.5 X10*3/uL (1.2-4.9); Lymphocytes Percent Auto 3.6 % (20-40); Mean Corpuscular HGB Conc 32.6 g/dl (31.0-35.0); Mean Corpuscular Hemoglobin 31.8 pg (27.0-33.0); Mean Corpuscular Volume 97.6 fL (80.0-98.0); Mean Platelet Volume 11.3 fL (9.4-12.3); Monocytes Absolute Auto 0.8 X10*3/uL (0.1-1.2); Monocytes Percent Auto 6.2 % (2-11); Neutrophils Absolute Auto 12.1 x10*3/uL (2.0-8.3); Neutrophils Percent Auto 89.5 % (45-73); Red Blood Count 2.92 X10*6/uL (4.20-5.50); White Blood Count 13.5 X10*3/uL (4.8-10.8)
[2022-06-25 05:19] LABS: Platelet Count 63 X10*3/uL (160-400)
[2022-06-25 05:48] LABS: Alanine Aminotransferase < 6 U/L (0-31); Albumin Level 4.5 g/dL (3.5-5.0); Alkaline Phosphatase 42 U/L (39-117); Anion Gap 18 (12-20); Aspartate Amino Transferase 19 U/L (5-31); Bilirubin Total 6.4 mg/dL (0.0-1.0); Blood Urea Nitrogen 64 mg/dL (9-16); Blood Urea Nitrogen 67 mg/dL (9-16); Calcium 8.7 mg/dL (8.4-10.2); Calcium 8.9 mg/dL (8.4-10.2); Carbon Dioxide 26 mmol/L (22-29); Chloride 92 mmol/L (96-108); Creatinine Clr Calc Pharmacy 36.8; Creatinine Clr Calc Pharmacy 37.4; Estimated Glomerular Filt Rate 20; Estimated Glomerular Filt Rate 21; Glucose Fasting 204 mg/dL (60-99); Glucose Random 203 mg/dL (60-115); Magnesium 1.7 mg/dL (1.6-2.6); Potassium 4.9 mmol/L (3.3-5.1); Sodium 131 mmol/L (135-145); Total Protein 6.8 g/dL (6.5-8.0)
[2022-06-25] MEDS: propofoL 1,000 MG/100 ML VIAL 38.1 MG IVCONT ×7 (06:19→21:50)
[2022-06-25 06:50] LABS: Venous Blood Gas Refer to POC result
[2022-06-25 07:16] LABS: Glucose, Whole Blood 204 mg/dL (60-115)
[2022-06-25] MEDS: Famotidine/PF 20 MG/2 ML VIAL IVPUSH (07:30)
[2022-06-25] MEDS: Thiamine HCL 100 MG TABLET PO (07:30)
[2022-06-25] MEDS: Lactulose 20 GM/30 ML SOLUTION PO ×2 (07:31→20:19)
[2022-06-25] MEDS: Chlorhexidine Gluc Oral Rinse 15 ML MOUTHWASH BUCCAL ×3 (07:31→20:19)
[2022-06-25] MEDS: 0.9 % Sodium Chloride Flush 3 ML SYRINGE IVFLUSH ×3 (07:32→20:20)
[2022-06-25 08:08] LABS: Glucose, Whole Blood 195 mg/dL (60-115)
[2022-06-25] MEDS: Urea 15 GM POWDER PO (08:36)
[2022-06-25] MEDS: levoFLOXacin/D5W 250 MG/50 ML PIGGYBACK 50 MG IV (08:36)
[2022-06-25] MEDS: Norepinephrine Bitartrate/D5W 8 MG/250 ML PLAST..BAG 21.43 MG IV ×2 (08:37→19:11)
[2022-06-25 09:12] LABS: Glucose, Whole Blood 209 mg/dL (60-115)
[2022-06-25 10:00] LABS: Glucose, Whole Blood 215 mg/dL (60-115)
--- NOTE | 2022-06-25 10:46 | MHC.CLN ---
F/U PATIENT INTUBATED AND SEDATED. TOLERATING CURRENT TUBE FEEDING, NEPRO AT 20 ML PER HOUR. 120 ML WATER FLUSH Q 4 HOURS. PROVIDES 864 KCALS FROM FORMULA, 1870 KCALS WITH SEDATION (35.8 KCALS/KG IBW); 39 G PROTEIN (.75 G/KG IBW); 1069 ML FREE WATER FROM FORMULA AND FLUSH (20.4 ML/KG IBW). MONITOR TUBE FEED TOLERANCE AND LABS. FOLLOW WITH TEAM FOR PLAN OF CARE.
[2022-06-25 11:05] LABS: Glucose, Whole Blood 181 mg/dL (60-115)
[2022-06-25 12:10] LABS: Glucose, Whole Blood 178 mg/dL (60-115)
--- NOTE | 2022-06-25 12:23 | MHC.CM.PN ---
Meet with @ bedside, asking about completing a new HCP. Due patient's current clinical state she is unable to complete HCP. On patient's last admission she completed HCP, encouraged to check at home for copy. CM can complete if clinical status improves.
--- NOTE | 2022-06-25 12:54 | PM.CCPN ---
Subjective Subjective Date of Service: 06/25/22 Interval History: 47-year-old morbidly obese type 2 diabetic with polycystic ovary syndrome and non alcoholic steatohepatitis with end-stage cirrhosis along with hepatic failure and portal hypertension who following a paracentesis of large volume of fluid developed paddle renal syndrome and post transfusion acute lung injury when hemoglobin had dropped with acute hypoxic respiratory failure requiring emergent intubation and placement of central line allowing us the removal of the old mid-level line because of the methicillin sensitive Staph aureus bacteremia that has thus far been treated for 2 weeks we had to stop the cephalosporin she was being treated with because of penicillin allergy and she had urticarial rash and was switched to Levaquin with 1 synergistic dose of vancomycin given at the same time the right lung atelectasis has considerably re-expanded with residual right lower lobe atelectasis only and marked improvement in the oxygenation allowing us to stop the inverse ratio mechanism reduced PEEP down to 12 decreased the FiO2 down to 60% bedside echo showing hyperdynamic left ventricle probably at least mildly hypertrophied with normal right ventricular dimension and function and no primary valve or pericardial disease abdomen markedly distended but soft tolerating feedings no organomegaly Critical Care Time (minutes): 45 Physical Exam Vital Signs: Vital Signs: Last Vital Signs Temp 97.6 F 06/25/22 11:00 Pulse 101 H 06/25/22 12:00 Resp 16 06/25/22 12:00 BP 125/62 06/25/22 12:00 Pulse Ox 97 06/25/22 12:00 O2 Del Method 06/25/22 12:00 O2 Flow Rate 15 06/24/22 01:17 FiO2 60 06/25/22 12:00 BMI result Body Mass Index 52.5 sedated and intubated no accessory muscle or diaphragmatic effort normal sinus rhythm with rate in the 90s with preserved blood pressure off the vasopressin but remaining on a smaller dose of norepinephrine and octreotide systolic pressure 125 CVP still at about 18 with a normal X and Y descent in the venous pattern urine output marginal who with no clinical response to the to the Lasix drip making me wonder if the effective arterial volume is just simply normal to maybe even modestly low but there renal studies that are pending with to see if this is truly hepatic or renal verses and a TN mechanism but the creatinine seems to have plateaued clearly not uremic abut the consideration might be lent for a changing CVP to Humphrey-Bri catheter to better gauge volume status without the influence of the intervening lung disease Objective Data Labs 06/25/22 04:42 06/25/22 04:42 Labs: Laboratory Results - last 24 hr 06/24/22 06/24/22 06/24/22 13:55 14:35 14:38 WBC 19.6 H RBC 3.46 L Hgb 11.2 L Hct 33.6 L MCV 97.1 MCH 32.4 MCHC 33.3 RDW 17.2 H Plt Count 93 L D MPV 11.7 Immature Gran % (Auto) 0.6 H Neut % (Auto) 92.9 H Lymph % (Auto) 3.4 L [place] % (Auto) 2.8 Eos % (Auto) 0.1 Baso % (Auto) 0.2 Lymph # (Auto) 0.7 L [place] # (Auto) 0.5 Eos # (Auto) 0.0 Baso # (Auto) 0.0 Abs Immat Gran (auto) 0.11 H Absolute Neuts (auto) 18.2 H Absolute Nucleated RBC 0.000 Nucleated RBC % (auto) 0.0 VBG pH 7.47 H VBG pCO2 32 VBG pO2 191 VBG HCO3 23 VBG O2 Saturation 99.0 VBG Base Excess 0.6 Sodium Potassium Chloride Carbon Dioxide Anion Gap BUN Creatinine Estim Creat Clear Calc Estimated GFR POC Glucose 226 H Random Glucose Fasting Glucose Calcium Phosphorus Magnesium Total Bilirubin AST ALT Alkaline Phosphatase Total Protein Albumin 06/24/22 06/24/22 06/24/22 14:38 15:02 16:09 WBC RBC Hgb Hct MCV MCH MCHC RDW Plt Count MPV Immature Gran % (Auto) Neut % (Auto) Lymph % (Auto) [place] % (Auto) Eos % (Auto) Baso % (Auto) Lymph # (Auto) [place] # (Auto) Eos # (Auto) Baso # (Auto) Abs Immat Gran (auto) Absolute Neuts (auto) Absolute Nucleated RBC Nucleated RBC % (auto) VBG pH VBG pCO2 VBG pO2 VBG HCO3 VBG O2 Saturation VBG Base Excess Sodium 131 L Potassium 5.4 H Chloride 93 L Carbon Dioxide 25 Anion Gap 18 BUN 51 H Creatinine 2.43 H Estim Creat Clear Calc 37.1 Estimated GFR 21 POC Glucose 210 H 215 H Random Glucose 209 H Fasting Glucose Calcium 8.9 Phosphorus Magnesium Total Bilirubin 10.7 H AST 22 ALT < 6 Alkaline Phosphatase 56 Total Protein 6.8 Albumin 4.1 06/24/22 06/24/22 06/24/22 17:12 18:07 19:03 WBC RBC Hgb Hct MCV MCH MCHC RDW Plt Count MPV Immature Gran % (Auto) Neut % (Auto) Lymph % (Auto) [place] % (Auto) Eos % (Auto) Baso % (Auto) Lymph # (Auto) [place] # (Auto) Eos # (Auto) Baso # (Auto) Abs Immat Gran (auto) Absolute Neuts (auto) Absolute Nucleated RBC Nucleated RBC % (auto) VBG pH VBG pCO2 VBG pO2 VBG HCO3 VBG O2 Saturation VBG Base Excess Sodium Potassium Chloride Carbon Dioxide Anion Gap BUN Creatinine Estim Creat Clear Calc Estimated GFR POC Glucose 238 H 236 H 225 H Random Glucose Fasting Glucose Calcium Phosphorus Magnesium Total Bilirubin AST ALT Alkaline Phosphatase Total Protein Albumin 06/24/22 06/24/22 06/24/22 19:59 20:01 21:01 WBC RBC Hgb Hct MCV MCH MCHC RDW Plt Count MPV Immature Gran % (Auto) Neut % (Auto) Lymph % (Auto) [place] % (Auto) Eos % (Auto) Baso % (Auto) Lymph # (Auto) [place] # (Auto) Eos # (Auto) Baso # (Auto) Abs Immat Gran (auto) Absolute Neuts (auto) Absolute Nucleated RBC Nucleated RBC % (auto) VBG pH VBG pCO2 VBG pO2 VBG HCO3 VBG O2 Saturation VBG Base Excess Sodium 131 L Potassium 5.0 Chloride 93 L Carbon Dioxide 27 Anion Gap 16 BUN 62 H Creatinine 2.46 H Estim Creat Clear Calc 36.6 Estimated GFR 21 POC Glucose 176 H 172 H Random Glucose 205 H Fasting Glucose Calcium 8.8 Phosphorus Magnesium Total Bilirubin AST ALT Alkaline Phosphatase Total Protein Albumin 06/24/22 06/24/22 06/25/22 22:10 22:59 00:44 WBC RBC Hgb Hct MCV MCH MCHC RDW Plt Count MPV Immature Gran % (Auto) Neut % (Auto) Lymph % (Auto) [place] % (Auto) Eos % (Auto) Baso % (Auto) Lymph # (Auto) [place] # (Auto) Eos # (Auto) Baso # (Auto) Abs Immat Gran (auto) Absolute Neuts (auto) Absolute Nucleated RBC Nucleated RBC % (auto) VBG pH VBG pCO2 VBG pO2 VBG HCO3 VBG O2 Saturation VBG Base Excess Sodium Potassium Chloride Carbon Dioxide Anion Gap BUN Creatinine Estim Creat Clear Calc Estimated GFR POC Glucose 197 H 196 H 171 H Random Glucose Fasting Glucose Calcium Phosphorus Magnesium Total Bilirubin AST ALT Alkaline Phosphatase Total Protein Albumin 06/25/22 06/25/22 06/25/22 02:56 04:42 04:42 WBC Cancelled RBC Cancelled Hgb Cancelled Hct Cancelled MCV Cancelled MCH Cancelled MCHC Cancelled RDW Cancelled Plt Count Cancelled MPV Cancelled Immature Gran % (Auto) Neut % (Auto) Lymph % (Auto) [place] % (Auto) Eos % (Auto) Baso % (Auto) Lymph # (Auto) [place] # (Auto) Eos # (Auto) Baso # (Auto) Abs Immat Gran (auto) Absolute Neuts (auto) Absolute Nucleated RBC Cancelled Nucleated RBC % (auto) Cancelled VBG pH VBG pCO2 VBG pO2 VBG HCO3 VBG O2 Saturation VBG Base Excess Sodium 131 L Potassium 4.9 Chloride 92 L Carbon Dioxide 26 Anion Gap 18 BUN 67 H Creatinine 2.54 H Estim Creat Clear Calc 36.8 Estimated GFR 20 POC Glucose 192 H Random Glucose Fasting Glucose 204 H Calcium 8.9 Phosphorus Magnesium Total Bilirubin 6.4 H AST 19 ALT < 6 Alkaline Phosphatase 42 Total Protein 6.8 Albumin 4.5 06/25/22 06/25/22 06/25/22 04:42 04:42 04:53 WBC 13.5 H RBC 2.92 L Hgb 9.3 L Hct 28.5 L MCV 97.6 MCH 31.8 MCHC 32.6 RDW 17.0 H Plt Count 63 L D MPV 11.3 Immature Gran % (Auto) 0.5 H Neut % (Auto) 89.5 H Lymph % (Auto) 3.6 L [place] % (Auto) 6.2 Eos % (Auto) 0.1 Baso % (Auto) 0.1 Lymph # (Auto) 0.5 L [place] # (Auto) 0.8 Eos # (Auto) 0.0 Baso # (Auto) 0.0 Abs Immat Gran (auto) 0.07 H Absolute Neuts (auto) 12.1 H Absolute Nucleated RBC 0.000 Nucleated RBC % (auto) 0.0 VBG pH 7.38 VBG pCO2 40 VBG pO2 86 VBG HCO3 24 VBG O2 Saturation 97.0 VBG Base Excess -0.4 Sodium 131 L Potassium 4.9 Chloride 92 L Carbon Dioxide 26 Anion Gap 18 BUN 64 H Creatinine 2.50 H Estim Creat Clear Calc 37.4 Estimated GFR 21 POC Glucose Random Glucose 203 H Fasting Glucose Calcium 8.7 Phosphorus 5.0 H Magnesium 1.7 Total Bilirubin 6.4 H AST 19 ALT < 6 Alkaline Phosphatase 42 Total Protein 6.8 Albumin 4.5 06/25/22 06/25/22 06/25/22 05:02 07:13 08:00 WBC RBC Hgb Hct MCV MCH MCHC RDW Plt Count MPV Immature Gran % (Auto) Neut % (Auto) Lymph % (Auto) [place] % (Auto) Eos % (Auto) Baso % (Auto) Lymph # (Auto) [place] # (Auto) Eos # (Auto) Baso # (Auto) Abs Immat Gran (auto) Absolute Neuts (auto) Absolute Nucleated RBC Nucleated RBC % (auto) VBG pH VBG pCO2 VBG pO2 VBG HCO3 VBG O2 Saturation VBG Base Excess Sodium Potassium Chloride Carbon Dioxide Anion Gap BUN Creatinine Estim Creat Clear Calc Estimated GFR POC Glucose 194 H 204 H 195 H Random Glucose Fasting Glucose Calcium Phosphorus Magnesium Total Bilirubin AST ALT Alkaline Phosphatase Total Protein Albumin 06/25/22 06/25/22 06/25/22 09:07 09:56 11:02 WBC RBC Hgb Hct MCV MCH MCHC RDW Plt Count MPV Immature Gran % (Auto) Neut % (Auto) Lymph % (Auto) [place] % (Auto) Eos % (Auto) Baso % (Auto) Lymph # (Auto) [place] # (Auto) Eos # (Auto) Baso # (Auto) Abs Immat Gran (auto) Absolute Neuts (auto) Absolute Nucleated RBC Nucleated RBC % (auto) VBG pH VBG pCO2 VBG pO2 VBG HCO3 VBG O2 Saturation VBG Base Excess Sodium Potassium Chloride Carbon Dioxide Anion Gap BUN Creatinine Estim Creat Clear Calc Estimated GFR POC Glucose 209 H 215 H 181 H Random Glucose Fasting Glucose Calcium Phosphorus Magnesium Total Bilirubin AST ALT Alkaline Phosphatase Total Protein Albumin 06/25/22 12:04 WBC RBC Hgb Hct MCV MCH MCHC RDW Plt Count MPV Immature Gran % (Auto) Neut % (Auto) Lymph % (Auto) [place] % (Auto) Eos % (Auto) Baso % (Auto) Lymph # (Auto) [place] # (Auto) Eos # (Auto) Baso # (Auto) Abs Immat Gran (auto) Absolute Neuts (auto) Absolute Nucleated RBC Nucleated RBC % (auto) VBG pH VBG pCO2 VBG pO2 VBG HCO3 VBG O2 Saturation VBG Base Excess Sodium Potassium Chloride Carbon Dioxide Anion Gap BUN Creatinine Estim Creat Clear Calc Estimated GFR POC Glucose 178 H Random Glucose Fasting Glucose Calcium Phosphorus Magnesium Total Bilirubin AST ALT Alkaline Phosphatase Total Protein Albumin Microbiology Microbiology Results: Microbiology 06/22/22 15:05 Peritoneal Fluid Gram Stain - Final 06/22/22 15:05 Peritoneal Fluid Routine Culture - Final No growth after 2 days 06/22/22 15:05 Peritoneal Fluid Anaerobic Culture - Preliminary No growth to date. Progress Note: A&P Assessment and plan (1) Acute respiratory failure with hypoxia: Status: Acute (2) ARDS (adult respiratory distress syndrome): Status: Acute (3) Hypoxia: Status: Acute (4) AMY (obstructive sleep apnea): Status: Acute (5) MSSA bacteremia: Status: Acute (6) Hypotension: Status: Acute (7) Acute on chronic kidney failure: Status: Acute (8) 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: Status: Acute (9) 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: Status: Acute (10) Hyponatremia: Status: Acute (11) Positive blood culture: Status: Acute (12) Coagulopathy: Status: Acute (13) Thrombocytopenia: Status: Acute (14) Pneumonia: Status: Acute (15) Ascites: Status: Acute (16) Acute hyponatremia: Status: Acute (17) Numbness and tingling in both hands: Status: Acute (18) Non-toxic multinodular goiter: Status: Acute (19) Diabetic nephropathy associated with type 2 diabetes mellitus: Status: Acute (20) Elevated TSH: Status: Acute (21) Goiter: Status: Acute (22) Acromegaly: Status: Acute (23) Morbid obesity: Status: Acute (24) PCOS (polycystic ovarian syndrome): Status: Acute (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: Status: Acute (26) Diabetes type 2, uncontrolled: Status: Acute Plan so plan again is just to continue Levaquin for the MSSA bacteremia possible exchange to Humphrey-Bri catheter for fluid management keep our low-dose of the Levophed for renal perfusion benefit as we await the studies including fractional excretions of sodium and urea and and the AA review of the microscopic sediment on urinalysis Quality Stroke Does the patient have a stroke diagnosis?: No VTE Prior VTE?: No VTE Risk Level:: Medical - moderate - high VTE Device Contraindication: N/A - Device Ordered VTE Drug Contraindication: Treatment Not Indicated
[2022-06-25 12:56] LABS: Creatinine Urine 52.71 mg/dL; Sodium Urine Random < 20.0 mmol/L
[2022-06-25 14:23] LABS: Glucose, Whole Blood 187 mg/dL (60-115)
[2022-06-25] MEDS: Insulin Regular/NS 100 UNIT/100 ML PLAST..BAG 8.25 UNIT IVCONT (14:29)
[2022-06-25] MEDS: vancomycin HCL 500 MG in 0.9 % Sodium Chloride 100 ML 110 MG IV (16:32)
[2022-06-25 16:35] LABS: Glucose, Whole Blood 184 mg/dL (60-115)
[2022-06-25 18:00] LABS: Glucose, Whole Blood 176 mg/dL (60-115)
--- NOTE | 2022-06-25 18:42 | P.PNNP_ITS ---
Subjective Subjective Date of Service: 06/25/22 Interval history: Seen and examiendsurjit noted Physical Exam Vital Signs: Vital Signs: Last Vital Signs Temp 99.7 F 06/25/22 16:00 Pulse 101 H 06/25/22 18:00 Resp 16 06/25/22 18:00 BP 111/62 06/25/22 18:00 Pulse Ox 98 06/25/22 18:00 O2 Del Method 06/25/22 18:00 O2 Flow Rate 15 06/24/22 01:17 FiO2 60 06/25/22 18:00 BMI result Body Mass Index 52.5 Const: Other: no acute distress Resp: Other: clear to auscultation bilaterally. No rales rhonchi or wheezes Cardio: Other: no S4; positive S1-S2; no S3 murmurs rubs or gallops GI: Other: soft nontender nondistended normoactive bowel sounds Extrem: Other: no edema bilaterally Objective Data Labs 06/25/22 04:42 06/25/22 04:42 Labs: Laboratory Results - last 24 hr 06/24/22 06/24/22 06/24/22 19:03 19:59 20:01 WBC RBC Hgb Hct MCV MCH MCHC RDW Plt Count MPV Immature Gran % (Auto) Neut % (Auto) Lymph % (Auto) [place] % (Auto) Eos % (Auto) Baso % (Auto) Lymph # (Auto) [place] # (Auto) Eos # (Auto) Baso # (Auto) Abs Immat Gran (auto) Absolute Neuts (auto) Absolute Nucleated RBC Nucleated RBC % (auto) VBG pH VBG pCO2 VBG pO2 VBG HCO3 VBG O2 Saturation VBG Base Excess Sodium 131 L Potassium 5.0 Chloride 93 L Carbon Dioxide 27 Anion Gap 16 BUN 62 H Creatinine 2.46 H Estim Creat Clear Calc 36.6 Estimated GFR 21 POC Glucose 225 H 176 H Random Glucose 205 H Fasting Glucose Calcium 8.8 Phosphorus Magnesium Total Bilirubin AST ALT Alkaline Phosphatase Total Protein Albumin Ur Random Sodium Urine Creatinine 06/24/22 06/24/22 06/24/22 21:01 22:10 22:59 WBC RBC Hgb Hct MCV MCH MCHC RDW Plt Count MPV Immature Gran % (Auto) Neut % (Auto) Lymph % (Auto) [place] % (Auto) Eos % (Auto) Baso % (Auto) Lymph # (Auto) [place] # (Auto) Eos # (Auto) Baso # (Auto) Abs Immat Gran (auto) Absolute Neuts (auto) Absolute Nucleated RBC Nucleated RBC % (auto) VBG pH VBG pCO2 VBG pO2 VBG HCO3 VBG O2 Saturation VBG Base Excess Sodium Potassium Chloride Carbon Dioxide Anion Gap BUN Creatinine Estim Creat Clear Calc Estimated GFR POC Glucose 172 H 197 H 196 H Random Glucose Fasting Glucose Calcium Phosphorus Magnesium Total Bilirubin AST ALT Alkaline Phosphatase Total Protein Albumin Ur Random Sodium Urine Creatinine 06/25/22 06/25/22 06/25/22 00:44 02:56 04:42 WBC Cancelled RBC Cancelled Hgb Cancelled Hct Cancelled MCV Cancelled MCH Cancelled MCHC Cancelled RDW Cancelled Plt Count Cancelled MPV Cancelled Immature Gran % (Auto) Neut % (Auto) Lymph % (Auto) [place] % (Auto) Eos % (Auto) Baso % (Auto) Lymph # (Auto) [place] # (Auto) Eos # (Auto) Baso # (Auto) Abs Immat Gran (auto) Absolute Neuts (auto) Absolute Nucleated RBC Cancelled Nucleated RBC % (auto) Cancelled VBG pH VBG pCO2 VBG pO2 VBG HCO3 VBG O2 Saturation VBG Base Excess Sodium Potassium Chloride Carbon Dioxide Anion Gap BUN Creatinine Estim Creat Clear Calc Estimated GFR POC Glucose 171 H 192 H Random Glucose Fasting Glucose Calcium Phosphorus Magnesium Total Bilirubin AST ALT Alkaline Phosphatase Total Protein Albumin Ur Random Sodium Urine Creatinine 06/25/22 06/25/22 06/25/22 04:42 04:42 04:42 WBC 13.5 H RBC 2.92 L Hgb 9.3 L Hct 28.5 L MCV 97.6 MCH 31.8 MCHC 32.6 RDW 17.0 H Plt Count 63 L D MPV 11.3 Immature Gran % (Auto) 0.5 H Neut % (Auto) 89.5 H Lymph % (Auto) 3.6 L [place] % (Auto) 6.2 Eos % (Auto) 0.1 Baso % (Auto) 0.1 Lymph # (Auto) 0.5 L [place] # (Auto) 0.8 Eos # (Auto) 0.0 Baso # (Auto) 0.0 Abs Immat Gran (auto) 0.07 H Absolute Neuts (auto) 12.1 H Absolute Nucleated RBC 0.000 Nucleated RBC % (auto) 0.0 VBG pH VBG pCO2 VBG pO2 VBG HCO3 VBG O2 Saturation VBG Base Excess Sodium 131 L 131 L Potassium 4.9 4.9 Chloride 92 L 92 L Carbon Dioxide 26 26 Anion Gap 18 18 BUN 67 H 64 H Creatinine 2.54 H 2.50 H Estim Creat Clear Calc 36.8 37.4 Estimated GFR 20 21 POC Glucose Random Glucose 203 H Fasting Glucose 204 H Calcium 8.9 8.7 Phosphorus 5.0 H Magnesium 1.7 Total Bilirubin 6.4 H 6.4 H AST 19 19 ALT < 6 < 6 Alkaline Phosphatase 42 42 Total Protein 6.8 6.8 Albumin 4.5 4.5 Ur Random Sodium Urine Creatinine 06/25/22 06/25/22 06/25/22 04:53 05:02 07:13 WBC RBC Hgb Hct MCV MCH MCHC RDW Plt Count MPV Immature Gran % (Auto) Neut % (Auto) Lymph % (Auto) [place] % (Auto) Eos % (Auto) Baso % (Auto) Lymph # (Auto) [place] # (Auto) Eos # (Auto) Baso # (Auto) Abs Immat Gran (auto) Absolute Neuts (auto) Absolute Nucleated RBC Nucleated RBC % (auto) VBG pH 7.38 VBG pCO2 40 VBG pO2 86 VBG HCO3 24 VBG O2 Saturation 97.0 VBG Base Excess -0.4 Sodium Potassium Chloride Carbon Dioxide Anion Gap BUN Creatinine Estim Creat Clear Calc Estimated GFR POC Glucose 194 H 204 H Random Glucose Fasting Glucose Calcium Phosphorus Magnesium Total Bilirubin AST ALT Alkaline Phosphatase Total Protein Albumin Ur Random Sodium Urine Creatinine 06/25/22 06/25/22 06/25/22 08:00 09:07 09:56 WBC RBC Hgb Hct MCV MCH MCHC RDW Plt Count MPV Immature Gran % (Auto) Neut % (Auto) Lymph % (Auto) [place] % (Auto) Eos % (Auto) Baso % (Auto) Lymph # (Auto) [place] # (Auto) Eos # (Auto) Baso # (Auto) Abs Immat Gran (auto) Absolute Neuts (auto) Absolute Nucleated RBC Nucleated RBC % (auto) VBG pH VBG pCO2 VBG pO2 VBG HCO3 VBG O2 Saturation VBG Base Excess Sodium Potassium Chloride Carbon Dioxide Anion Gap BUN Creatinine Estim Creat Clear Calc Estimated GFR POC Glucose 195 H 209 H 215 H Random Glucose Fasting Glucose Calcium Phosphorus Magnesium Total Bilirubin AST ALT Alkaline Phosphatase Total Protein Albumin Ur Random Sodium Urine Creatinine 06/25/22 06/25/22 06/25/22 11:02 12:04 12:19 WBC RBC Hgb Hct MCV MCH MCHC RDW Plt Count MPV Immature Gran % (Auto) Neut % (Auto) Lymph % (Auto) [place] % (Auto) Eos % (Auto) Baso % (Auto) Lymph # (Auto) [place] # (Auto) Eos # (Auto) Baso # (Auto) Abs Immat Gran (auto) Absolute Neuts (auto) Absolute Nucleated RBC Nucleated RBC % (auto) VBG pH VBG pCO2 VBG pO2 VBG HCO3 VBG O2 Saturation VBG Base Excess Sodium Potassium Chloride Carbon Dioxide Anion Gap BUN Creatinine Estim Creat Clear Calc Estimated GFR POC Glucose 181 H 178 H Random Glucose Fasting Glucose Calcium Phosphorus Magnesium Total Bilirubin AST ALT Alkaline Phosphatase Total Protein Albumin Ur Random Sodium < 20.0 Urine Creatinine 52.71 06/25/22 06/25/22 06/25/22 14:20 16:17 17:56 WBC RBC Hgb Hct MCV MCH MCHC RDW Plt Count MPV Immature Gran % (Auto) Neut % (Auto) Lymph % (Auto) [place] % (Auto) Eos % (Auto) Baso % (Auto) Lymph # (Auto) [place] # (Auto) Eos # (Auto) Baso # (Auto) Abs Immat Gran (auto) Absolute Neuts (auto) Absolute Nucleated RBC Nucleated RBC % (auto) VBG pH VBG pCO2 VBG pO2 VBG HCO3 VBG O2 Saturation VBG Base Excess Sodium Potassium Chloride Carbon Dioxide Anion Gap BUN Creatinine Estim Creat Clear Calc Estimated GFR POC Glucose 187 H 184 H 176 H Random Glucose Fasting Glucose Calcium Phosphorus Magnesium Total Bilirubin AST ALT Alkaline Phosphatase Total Protein Albumin Ur Random Sodium Urine Creatinine Microbiology Microbiology Results: Microbiology 06/24/22 14:38 Blood - Central Line Blood Culture - Preliminary No growth after 24 hours. 06/24/22 14:39 Blood - Central Line Blood Culture - Preliminary No growth after 24 hours. 06/22/22 15:05 Peritoneal Fluid Gram Stain - Final 06/22/22 15:05 Peritoneal Fluid Routine Culture - Final No growth after 2 days 06/22/22 15:05 Peritoneal Fluid Anaerobic Culture - Preliminary No growth to date. Procedures Date of Service Date of Service: 06/25/22 Assessment & Plan Assessment and plan (1) 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: Status: Acute (2) Hypotension: Status: Acute (3) Acute on chronic kidney failure: Status: Acute (4) MSSA bacteremia: Status: Acute (5) Hyponatremia: Status: Acute Plan Now Resp failre req intubation and w ques related to Xfusion (TACO) and SHOCK on pressors in ICU and diuretics started by ICU - Non-Oliguric DULCE: ( UOP approx 950 past 24 hrs) most c/w HRSyn but now signif risk for furhter DULCE from ischemic ATN; initially was c/w HRS and LgVol Paracentesis possible precipitating HRS - Cirrhosis - Recurrent severe ascites requiring recurrent taps - DM - Anemia: s/p xfusion - Intravascular Vol status ?: challenging assessment--certainly 3rd spaced fluid Overall critically ill now and at signif risk for needing HEALTH ANALYTICS CONSULTANT in next 24-48 hrs REC: no indications for HEALTH ANALYTICS CONSULTANT at this time; optimize HDynamics and renal perfusion and ICU team considering RH Cath toeval IV vol; track UOP/renal func; avoid Ntoxins; xfer to liver xplantprogram if DULCE progresses Will follow maximeolekathleen w team Time Spent With Patient Time: Total time managing care of this patient today ____ minutes. Progress Note: Quality Stroke Does the patient have a stroke diagnosis?: No
[2022-06-25 20:13] LABS: Glucose, Whole Blood 148 mg/dL (60-115)
[2022-06-25 21:25] LABS: Glucose, Whole Blood 166 mg/dL (60-115)
[2022-06-25] MEDS: Midazolam HCl/NS 50 MG/50 ML PLAST..BAG IVCONT (21:48)
[2022-06-25 22:11] LABS: Glucose, Whole Blood 160 mg/dL (60-115)
[2022-06-26] VITALS (40 sets, daily range): BP systolic 104–132; BP diastolic 47–65; PULSE 94–111; RESP 13–17; TEMP 34.6–37.4; O2SAT 8–99; BMI 53.9
[2022-06-26 00:01] LABS: Glucose, Whole Blood 171 mg/dL (60-115)
[2022-06-26] MEDS: Albuterol Sulfate (0.083%) 2.5 MG/3 ML VIAL.NEB INHALE ×7 (00:11→23:36)
[2022-06-26] MEDS: propofoL 1,000 MG/100 ML VIAL 38.1 MG IVCONT ×3 (00:23→05:21)
[2022-06-26 02:08] LABS: Glucose, Whole Blood 147 mg/dL (60-115)
[2022-06-26] MEDS: Insulin Regular/NS 100 UNIT/100 ML PLAST..BAG 6.25 UNIT IVCONT (02:59)
[2022-06-26 04:24] LABS: Glucose, Whole Blood 150 mg/dL (60-115)
[2022-06-26 04:41] LABS: VBG Base Excess 1.9 mmol/L; VBG HCO3 26 mmol/L (22-26); VBG pCO2 38 mmHg; VBG pH 7.43 (7.32-7.43); VBG pO2 63 mmHg
[2022-06-26 04:44] LABS: Venous Blood Gas Refer to POC result
[2022-06-26 04:53] LABS: Basophils Percent Auto 0.1 % (0-2); Eosinophils Absolute Auto 0.1 X10*3/uL (0.0-0.4); Eosinophils Percent Auto 0.5 % (0-4); Hematocrit 28.3 % (37.0-47.0); Hemoglobin 9.4 g/dl (12.0-16.0); Imm Gran Abs Auto 0.14 X10*3/uL (0.00-0.03); Lymphocytes Absolute Auto 0.6 X10*3/uL (1.2-4.9); Lymphocytes Percent Auto 4.2 % (20-40); MANUAL DIFF FLAG SCAN; Mean Corpuscular HGB Conc 33.2 g/dl (31.0-35.0); Mean Corpuscular Hemoglobin 32.8 pg (27.0-33.0); Mean Corpuscular Volume 98.6 fL (80.0-98.0); Monocytes Absolute Auto 1.6 X10*3/uL (0.1-1.2); Monocytes Percent Auto 11.1 % (2-11); NRBC Pct Auto 0.1 /100WBC (0.0-0.2); Neutrophils Absolute Auto 11.7 x10*3/uL (2.0-8.3); Neutrophils Percent Auto 83.1 % (45-73); Platelet Count 60 X10*3/uL (160-400); Red Blood Count 2.87 X10*6/uL (4.20-5.50); Red Cell Distribution Width 17.1 % (11.0-16.0); SCAN SMEAR FLAG 1
[2022-06-26 05:12] LABS: SLIDE REVIEW VERIFIED
[2022-06-26 05:15] LABS: Alanine Aminotransferase < 6 U/L (0-31); Albumin Level 4.3 g/dL (3.5-5.0); Alkaline Phosphatase 46 U/L (39-117); Anion Gap 15 (12-20); Aspartate Amino Transferase 25 U/L (5-31); Bilirubin Total 4.9 mg/dL (0.0-1.0); Blood Urea Nitrogen 75 mg/dL (9-16); Calcium 8.9 mg/dL (8.4-10.2); Carbon Dioxide 30 mmol/L (22-29); Chloride 92 mmol/L (96-108); Creatinine Clr Calc Pharmacy 40.5; Estimated Glomerular Filt Rate 23; Glucose Fasting 154 mg/dL (60-99); Potassium 4.6 mmol/L (3.3-5.1); Sodium 132 mmol/L (135-145); Total Protein 6.7 g/dL (6.5-8.0)
[2022-06-26 05:16] LABS: Magnesium 1.6 mg/dL (1.6-2.6); Phosphorus 4.2 mg/dL (2.7-4.5)
[2022-06-26] MEDS: Norepinephrine Bitartrate/D5W 8 MG/250 ML PLAST..BAG 21.43 MG IV (05:20)
[2022-06-26] MEDS: Octreotide Acetate 100 MCG/ML AMPUL 200 MCG SUBCUT ×3 (05:21→22:27)
[2022-06-26] MEDS: Levothyroxine Sodium 100 MCG/5 ML VIAL 25 MCG IVPUSH (05:21)
[2022-06-26] MEDS: Magnesium Sulfate/D5W 1 GM/100 ML PIGGYBACK IV (05:42)
[2022-06-26 06:15] LABS: Glucose, Whole Blood 165 mg/dL (60-115)
[2022-06-26 07:08] LABS: Ammonia 84 umol/L (13-55)
[2022-06-26] MEDS: Thiamine HCL 100 MG TABLET PO (07:27)
[2022-06-26] MEDS: metOLazone 2.5 MG TABLET PO (07:27)
[2022-06-26] MEDS: Spironolactone 25 MG TABLET PO (07:27)
[2022-06-26] MEDS: levoFLOXacin/D5W 250 MG/50 ML PIGGYBACK 50 MG IV (07:27)
[2022-06-26] MEDS: Lactulose 20 GM/30 ML SOLUTION PO ×2 (07:27→22:27)
[2022-06-26] MEDS: Chlorhexidine Gluc Oral Rinse 15 ML MOUTHWASH BUCCAL ×3 (07:27→22:27)
[2022-06-26] MEDS: Famotidine/PF 20 MG/2 ML VIAL IVPUSH (07:28)
[2022-06-26] MEDS: Furosemide 40 MG/4 ML VIAL IVPUSH (07:28)
[2022-06-26 07:30] LABS: INTERNATIONAL NORM RATIO 1.9 (0.9-1.1)
--- NOTE | 2022-06-26 07:32 | HE.PHANOTE ---
RE: rigoberto Patient's renal function mildly improving, increased dose to 750mg Q24H with predicted AUC 468mg/L, trough 14.5mg/L. Next level still scheduled for 06/27 @1400
[2022-06-26] MEDS: 0.9 % Sodium Chloride Flush 3 ML SYRINGE IVFLUSH ×3 (07:39→23:31)
[2022-06-26] MEDS: propofoL 1,000 MG/100 ML VIAL 30.48 MG IVCONT (08:05)
[2022-06-26 08:21] LABS: Glucose, Whole Blood 176 mg/dL (60-115)
--- NOTE | 2022-06-26 09:43 | MHC.CLN ---
F/U PATIENT INTUBATED AND SEDATED. TOLERATING CURRENT TUBE FEEDING, NEPRO AT 20 ML PER HOUR. 120 ML WATER FLUSH Q 4 HOURS. PROVIDES 864 KCALS FROM FORMULA, 1670 KCALS WITH SEDATION (31.9 KCALS/KG IBW); 39 G PROTEIN (.75 G/KG IBW); 1069 ML FREE WATER FROM FORMULA AND FLUSH (20.4 ML/KG IBW). MONITOR TUBE FEED TOLERANCE AND LABS. FOLLOW WITH TEAM FOR PLAN OF CARE.
[2022-06-26 10:22] LABS: Glucose, Whole Blood 160 mg/dL (60-115)
--- NOTE | 2022-06-26 11:08 | P.PNCC_ITS ---
Subjective Subjective Date of Service: 06/26/22 Interval History: 47-year-old morbidly obese individual with metabolic syndrome specifically polycystic ovary as well as type 2 diabetes and she has non alcoholic steatohepatitis resulting in end-stage cirrhosis with portal hypertension and indications of hepatic insufficiency as well namely and an elevated prothrombin time and had a large volume paracentesis of 9 L with minimal in albumin replacement and had a drop in hemoglobin and hypotension transfusion and shortly thereafter ARDS with intractable acute hypoxemic respiratory failure requiring intubation and probably had an element of acute tubular necrosis rather than hepato renal syndrome and that seems to be turning around she beginning to auto diurese and due to a rise in her central venous pressure as her lung function is improving and right heart pressures should thereby be responding she went from a CVP of 18-25 in the face of an 8 L positive intake over the last 2 and half to 3 days so volume I believe is playing a role and we gave her a combination of diuretics today and she has thus far put out 1200 cc in the CVP is back down to 18 and her minute ventilatory requirements have diminished to about 8.5 L and her FiO2 is come down to 40% so volume did play a role her renal function is turning the corner and were in position now to give her a sedation holiday and if that works out well in terms of cognitive function then a pressure support weaning trial and we might be in position if the family is in agreement to transferring her now in this improved condition to a tertiary center namely the [facility] see whether not they would accept her and then evaluate her for a liver transplant list Critical Care Time (minutes): 45 Physical Exam Vital Signs: Vital Signs: Last Vital Signs Temp 97.7 F 06/26/22 11:00 Pulse 101 H 06/26/22 11:00 Resp 16 06/26/22 11:00 BP 124/57 L 06/26/22 11:00 Pulse Ox 97 06/26/22 11:00 O2 Del Method 06/26/22 11:00 O2 Flow Rate 15 06/24/22 01:17 FiO2 40 06/26/22 11:00 BMI result Body Mass Index 53.9 Sedated and intubated but definitely much calmer exam she is on volume control of 350 cc tidal volume no accessory muscle use Bedside echo with concentric left ventricular hypertrophy but hyperdynamic left ventricle Abdomen is distended but feedings are tolerated no palpable organomegaly Chest x-ray is ever clearing no adventitious sounds on exam Objective Data Labs 06/26/22 04:31 06/26/22 04:31 Labs: Laboratory Results - last 24 hr 06/23/22 06/25/22 06/25/22 09:32 12:04 12:19 WBC RBC Hgb Hct MCV MCH MCHC RDW Plt Count MPV Immature Gran % (Auto) Neut % (Auto) Lymph % (Auto) [place] % (Auto) Eos % (Auto) Baso % (Auto) Lymph # (Auto) [place] # (Auto) Eos # (Auto) Baso # (Auto) Abs Immat Gran (auto) Absolute Neuts (auto) Absolute Nucleated RBC Nucleated RBC % (auto) Smear Tech's Comments PT INR VBG pH VBG pCO2 VBG pO2 VBG HCO3 VBG O2 Saturation VBG Base Excess Sodium Potassium Chloride Carbon Dioxide Anion Gap BUN Creatinine Estim Creat Clear Calc Estimated GFR POC Glucose 178 H Random Glucose Fasting Glucose Calcium Phosphorus Magnesium Total Bilirubin AST ALT Alkaline Phosphatase Ammonia Total Protein Albumin Ur Random Sodium < 20.0 Urine Creatinine 52.71 Crossmatch See Detail 06/25/22 06/25/22 06/25/22 14:20 16:17 17:56 WBC RBC Hgb Hct MCV MCH MCHC RDW Plt Count MPV Immature Gran % (Auto) Neut % (Auto) Lymph % (Auto) [place] % (Auto) Eos % (Auto) Baso % (Auto) Lymph # (Auto) [place] # (Auto) Eos # (Auto) Baso # (Auto) Abs Immat Gran (auto) Absolute Neuts (auto) Absolute Nucleated RBC Nucleated RBC % (auto) Smear Tech's Comments PT INR VBG pH VBG pCO2 VBG pO2 VBG HCO3 VBG O2 Saturation VBG Base Excess Sodium Potassium Chloride Carbon Dioxide Anion Gap BUN Creatinine Estim Creat Clear Calc Estimated GFR POC Glucose 187 H 184 H 176 H Random Glucose Fasting Glucose Calcium Phosphorus Magnesium Total Bilirubin AST ALT Alkaline Phosphatase Ammonia Total Protein Albumin Ur Random Sodium Urine Creatinine Crossmatch 06/25/22 06/25/22 06/25/22 20:10 21:17 22:07 WBC RBC Hgb Hct MCV MCH MCHC RDW Plt Count MPV Immature Gran % (Auto) Neut % (Auto) Lymph % (Auto) [place] % (Auto) Eos % (Auto) Baso % (Auto) Lymph # (Auto) [place] # (Auto) Eos # (Auto) Baso # (Auto) Abs Immat Gran (auto) Absolute Neuts (auto) Absolute Nucleated RBC Nucleated RBC % (auto) Smear Tech's Comments PT INR VBG pH VBG pCO2 VBG pO2 VBG HCO3 VBG O2 Saturation VBG Base Excess Sodium Potassium Chloride Carbon Dioxide Anion Gap BUN Creatinine Estim Creat Clear Calc Estimated GFR POC Glucose 148 H 166 H 160 H Random Glucose Fasting Glucose Calcium Phosphorus Magnesium Total Bilirubin AST ALT Alkaline Phosphatase Ammonia Total Protein Albumin Ur Random Sodium Urine Creatinine Crossmatch 06/25/22 06/26/22 06/26/22 23:58 02:05 04:19 WBC RBC Hgb Hct MCV MCH MCHC RDW Plt Count MPV Immature Gran % (Auto) Neut % (Auto) Lymph % (Auto) [place] % (Auto) Eos % (Auto) Baso % (Auto) Lymph # (Auto) [place] # (Auto) Eos # (Auto) Baso # (Auto) Abs Immat Gran (auto) Absolute Neuts (auto) Absolute Nucleated RBC Nucleated RBC % (auto) Smear Tech's Comments PT INR VBG pH VBG pCO2 VBG pO2 VBG HCO3 VBG O2 Saturation VBG Base Excess Sodium Potassium Chloride Carbon Dioxide Anion Gap BUN Creatinine Estim Creat Clear Calc Estimated GFR POC Glucose 171 H 147 H 150 H Random Glucose Fasting Glucose Calcium Phosphorus Magnesium Total Bilirubin AST ALT Alkaline Phosphatase Ammonia Total Protein Albumin Ur Random Sodium Urine Creatinine Crossmatch 06/26/22 06/26/22 06/26/22 04:31 04:31 04:31 WBC Cancelled 14.0 H RBC Cancelled 2.87 L Hgb Cancelled 9.4 L Hct Cancelled 28.3 L MCV Cancelled 98.6 H MCH Cancelled 32.8 MCHC Cancelled 33.2 RDW Cancelled 17.1 H Plt Count Cancelled 60 L MPV Cancelled 11.0 Immature Gran % (Auto) 1.0 H Neut % (Auto) 83.1 H Lymph % (Auto) 4.2 L [place] % (Auto) 11.1 H Eos % (Auto) 0.5 Baso % (Auto) 0.1 Lymph # (Auto) 0.6 L [place] # (Auto) 1.6 H Eos # (Auto) 0.1 Baso # (Auto) 0.0 Abs Immat Gran (auto) 0.14 H Absolute Neuts (auto) 11.7 H Absolute Nucleated RBC Cancelled 0.020 H Nucleated RBC % (auto) Cancelled 0.1 Smear Tech's Comments VERIFIED PT INR VBG pH VBG pCO2 VBG pO2 VBG HCO3 VBG O2 Saturation VBG Base Excess Sodium 132 L Potassium 4.6 Chloride 92 L Carbon Dioxide 30 H Anion Gap 15 BUN 75 H Creatinine 2.31 H Estim Creat Clear Calc 40.5 Estimated GFR 23 POC Glucose Random Glucose Fasting Glucose 154 H Calcium 8.9 Phosphorus Magnesium Total Bilirubin 4.9 H AST 25 ALT < 6 Alkaline Phosphatase 46 Ammonia Total Protein 6.7 Albumin 4.3 Ur Random Sodium Urine Creatinine Crossmatch 06/26/22 06/26/22 06/26/22 04:31 04:34 06:10 WBC RBC Hgb Hct MCV MCH MCHC RDW Plt Count MPV Immature Gran % (Auto) Neut % (Auto) Lymph % (Auto) [place] % (Auto) Eos % (Auto) Baso % (Auto) Lymph # (Auto) [place] # (Auto) Eos # (Auto) Baso # (Auto) Abs Immat Gran (auto) Absolute Neuts (auto) Absolute Nucleated RBC Nucleated RBC % (auto) Smear Tech's Comments PT INR VBG pH 7.43 VBG pCO2 38 VBG pO2 63 VBG HCO3 26 VBG O2 Saturation 91.0 VBG Base Excess 1.9 Sodium Cancelled Potassium Cancelled Chloride Cancelled Carbon Dioxide Cancelled Anion Gap Cancelled BUN Cancelled Creatinine Cancelled Estim Creat Clear Calc Cancelled Estimated GFR Cancelled POC Glucose 165 H Random Glucose Cancelled Fasting Glucose Calcium Cancelled Phosphorus 4.2 Magnesium 1.6 Total Bilirubin Cancelled AST Cancelled ALT Cancelled Alkaline Phosphatase Cancelled Ammonia Total Protein Cancelled Albumin Cancelled Ur Random Sodium Urine Creatinine Crossmatch 06/26/22 06/26/22 06/26/22 06:52 06:52 08:16 WBC RBC Hgb Hct MCV MCH MCHC RDW Plt Count MPV Immature Gran % (Auto) Neut % (Auto) Lymph % (Auto) [place] % (Auto) Eos % (Auto) Baso % (Auto) Lymph # (Auto) [place] # (Auto) Eos # (Auto) Baso # (Auto) Abs Immat Gran (auto) Absolute Neuts (auto) Absolute Nucleated RBC Nucleated RBC % (auto) Smear Tech's Comments PT 22.0 H INR 1.9 H VBG pH VBG pCO2 VBG pO2 VBG HCO3 VBG O2 Saturation VBG Base Excess Sodium Potassium Chloride Carbon Dioxide Anion Gap BUN Creatinine Estim Creat Clear Calc Estimated GFR POC Glucose 176 H Random Glucose Fasting Glucose Calcium Phosphorus Magnesium Total Bilirubin AST ALT Alkaline Phosphatase Ammonia 84 H Total Protein Albumin Ur Random Sodium Urine Creatinine Crossmatch 06/26/22 10:19 WBC RBC Hgb Hct MCV MCH MCHC RDW Plt Count MPV Immature Gran % (Auto) Neut % (Auto) Lymph % (Auto) [place] % (Auto) Eos % (Auto) Baso % (Auto) Lymph # (Auto) [place] # (Auto) Eos # (Auto) Baso # (Auto) Abs Immat Gran (auto) Absolute Neuts (auto) Absolute Nucleated RBC Nucleated RBC % (auto) Smear Tech's Comments PT INR VBG pH VBG pCO2 VBG pO2 VBG HCO3 VBG O2 Saturation VBG Base Excess Sodium Potassium Chloride Carbon Dioxide Anion Gap BUN Creatinine Estim Creat Clear Calc Estimated GFR POC Glucose 160 H Random Glucose Fasting Glucose Calcium Phosphorus Magnesium Total Bilirubin AST ALT Alkaline Phosphatase Ammonia Total Protein Albumin Ur Random Sodium Urine Creatinine Crossmatch Microbiology Microbiology Results: Microbiology 06/22/22 15:05 Peritoneal Fluid Gram Stain - Final 06/22/22 15:05 Peritoneal Fluid Routine Culture - Final No growth after 2 days 06/22/22 15:05 Peritoneal Fluid Anaerobic Culture - Preliminary No growth to date. 06/24/22 14:38 Blood - Central Line Blood Culture - Preliminary No growth after 24 hours. 06/24/22 14:39 Blood - Central Line Blood Culture - Preliminary No growth after 24 hours. Progress Note: A&P Assessment and plan (1) Acute respiratory failure with hypoxia: Status: Acute (2) ARDS (adult respiratory distress syndrome): Status: Acute (3) Hypoxia: Status: Acute (4) AMY (obstructive sleep apnea): Status: Acute (5) MSSA bacteremia: Status: Acute (6) Hypotension: Status: Acute (7) Acute on chronic kidney failure: Status: Acute (8) 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: Status: Acute (9) 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: Status: Acute (10) Hyponatremia: Status: Acute (11) Positive blood culture: Status: Acute (12) Coagulopathy: Status: Acute (13) Thrombocytopenia: Status: Acute (14) Pneumonia: Status: Acute (15) Ascites: Status: Acute (16) Acute hyponatremia: Status: Acute (17) Numbness and tingling in both hands: Status: Acute (18) Non-toxic multinodular goiter: Status: Acute (19) Diabetic nephropathy associated with type 2 diabetes mellitus: Status: Acute (20) Elevated TSH: Status: Acute (21) Goiter: Status: Acute (22) Acromegaly: Status: Acute (23) Morbid obesity: Status: Acute (24) PCOS (polycystic ovarian syndrome): Status: Acute (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
[2022-06-26 12:25] LABS: Glucose, Whole Blood 158 mg/dL (60-115)
--- NOTE | 2022-06-26 13:52 | P.PNNP_ITS ---
Subjective Subjective Date of Service: 06/26/22 Interval history: Seen and examied,e vents noted Physical Exam Vital Signs: Vital Signs: Last Vital Signs Temp 98.1 F 06/26/22 13:00 Pulse 106 H 06/26/22 13:00 Resp 16 06/26/22 13:00 BP 124/63 06/26/22 13:00 Pulse Ox 97 06/26/22 13:00 O2 Del Method 06/26/22 13:00 O2 Flow Rate 15 06/24/22 01:17 FiO2 40 06/26/22 13:00 BMI result Body Mass Index 53.9 Const: Other: no acute distress Resp: Other: clear to auscultation bilaterally. No rales rhonchi or wheezes Cardio: Other: no S4; positive S1-S2; no S3 murmurs rubs or gallops GI: Other: soft nontender nondistended normoactive bowel sounds Extrem: Other: no edema bilaterally Objective Data Labs 06/26/22 04:31 06/26/22 04:31 Labs: Laboratory Results - last 24 hr 06/23/22 06/25/22 06/25/22 09:32 14:20 16:17 WBC RBC Hgb Hct MCV MCH MCHC RDW Plt Count MPV Immature Gran % (Auto) Neut % (Auto) Lymph % (Auto) [place] % (Auto) Eos % (Auto) Baso % (Auto) Lymph # (Auto) [place] # (Auto) Eos # (Auto) Baso # (Auto) Abs Immat Gran (auto) Absolute Neuts (auto) Absolute Nucleated RBC Nucleated RBC % (auto) Smear Tech's Comments PT INR VBG pH VBG pCO2 VBG pO2 VBG HCO3 VBG O2 Saturation VBG Base Excess Sodium Potassium Chloride Carbon Dioxide Anion Gap BUN Creatinine Estim Creat Clear Calc Estimated GFR POC Glucose 187 H 184 H Random Glucose Fasting Glucose Calcium Phosphorus Magnesium Total Bilirubin AST ALT Alkaline Phosphatase Ammonia Total Protein Albumin Crossmatch See Detail 06/25/22 06/25/22 06/25/22 17:56 20:10 21:17 WBC RBC Hgb Hct MCV MCH MCHC RDW Plt Count MPV Immature Gran % (Auto) Neut % (Auto) Lymph % (Auto) [place] % (Auto) Eos % (Auto) Baso % (Auto) Lymph # (Auto) [place] # (Auto) Eos # (Auto) Baso # (Auto) Abs Immat Gran (auto) Absolute Neuts (auto) Absolute Nucleated RBC Nucleated RBC % (auto) Smear Tech's Comments PT INR VBG pH VBG pCO2 VBG pO2 VBG HCO3 VBG O2 Saturation VBG Base Excess Sodium Potassium Chloride Carbon Dioxide Anion Gap BUN Creatinine Estim Creat Clear Calc Estimated GFR POC Glucose 176 H 148 H 166 H Random Glucose Fasting Glucose Calcium Phosphorus Magnesium Total Bilirubin AST ALT Alkaline Phosphatase Ammonia Total Protein Albumin Crossmatch 06/25/22 06/25/22 06/26/22 22:07 23:58 02:05 WBC RBC Hgb Hct MCV MCH MCHC RDW Plt Count MPV Immature Gran % (Auto) Neut % (Auto) Lymph % (Auto) [place] % (Auto) Eos % (Auto) Baso % (Auto) Lymph # (Auto) [place] # (Auto) Eos # (Auto) Baso # (Auto) Abs Immat Gran (auto) Absolute Neuts (auto) Absolute Nucleated RBC Nucleated RBC % (auto) Smear Tech's Comments PT INR VBG pH VBG pCO2 VBG pO2 VBG HCO3 VBG O2 Saturation VBG Base Excess Sodium Potassium Chloride Carbon Dioxide Anion Gap BUN Creatinine Estim Creat Clear Calc Estimated GFR POC Glucose 160 H 171 H 147 H Random Glucose Fasting Glucose Calcium Phosphorus Magnesium Total Bilirubin AST ALT Alkaline Phosphatase Ammonia Total Protein Albumin Crossmatch 06/26/22 06/26/22 06/26/22 04:19 04:31 04:31 WBC Cancelled RBC Cancelled Hgb Cancelled Hct Cancelled MCV Cancelled MCH Cancelled MCHC Cancelled RDW Cancelled Plt Count Cancelled MPV Cancelled Immature Gran % (Auto) Neut % (Auto) Lymph % (Auto) [place] % (Auto) Eos % (Auto) Baso % (Auto) Lymph # (Auto) [place] # (Auto) Eos # (Auto) Baso # (Auto) Abs Immat Gran (auto) Absolute Neuts (auto) Absolute Nucleated RBC Cancelled Nucleated RBC % (auto) Cancelled Smear Tech's Comments PT INR VBG pH VBG pCO2 VBG pO2 VBG HCO3 VBG O2 Saturation VBG Base Excess Sodium 132 L Potassium 4.6 Chloride 92 L Carbon Dioxide 30 H Anion Gap 15 BUN 75 H Creatinine 2.31 H Estim Creat Clear Calc 40.5 Estimated GFR 23 POC Glucose 150 H Random Glucose Fasting Glucose 154 H Calcium 8.9 Phosphorus Magnesium Total Bilirubin 4.9 H AST 25 ALT < 6 Alkaline Phosphatase 46 Ammonia Total Protein 6.7 Albumin 4.3 Crossmatch 06/26/22 06/26/22 06/26/22 04:31 04:31 04:34 WBC 14.0 H RBC 2.87 L Hgb 9.4 L Hct 28.3 L MCV 98.6 H MCH 32.8 MCHC 33.2 RDW 17.1 H Plt Count 60 L MPV 11.0 Immature Gran % (Auto) 1.0 H Neut % (Auto) 83.1 H Lymph % (Auto) 4.2 L [place] % (Auto) 11.1 H Eos % (Auto) 0.5 Baso % (Auto) 0.1 Lymph # (Auto) 0.6 L [place] # (Auto) 1.6 H Eos # (Auto) 0.1 Baso # (Auto) 0.0 Abs Immat Gran (auto) 0.14 H Absolute Neuts (auto) 11.7 H Absolute Nucleated RBC 0.020 H Nucleated RBC % (auto) 0.1 Smear Tech's Comments VERIFIED PT INR VBG pH 7.43 VBG pCO2 38 VBG pO2 63 VBG HCO3 26 VBG O2 Saturation 91.0 VBG Base Excess 1.9 Sodium Cancelled Potassium Cancelled Chloride Cancelled Carbon Dioxide Cancelled Anion Gap Cancelled BUN Cancelled Creatinine Cancelled Estim Creat Clear Calc Cancelled Estimated GFR Cancelled POC Glucose Random Glucose Cancelled Fasting Glucose Calcium Cancelled Phosphorus 4.2 Magnesium 1.6 Total Bilirubin Cancelled AST Cancelled ALT Cancelled Alkaline Phosphatase Cancelled Ammonia Total Protein Cancelled Albumin Cancelled Crossmatch 06/26/22 06/26/22 06/26/22 06:10 06:52 06:52 WBC RBC Hgb Hct MCV MCH MCHC RDW Plt Count MPV Immature Gran % (Auto) Neut % (Auto) Lymph % (Auto) [place] % (Auto) Eos % (Auto) Baso % (Auto) Lymph # (Auto) [place] # (Auto) Eos # (Auto) Baso # (Auto) Abs Immat Gran (auto) Absolute Neuts (auto) Absolute Nucleated RBC Nucleated RBC % (auto) Smear Tech's Comments PT 22.0 H INR 1.9 H VBG pH VBG pCO2 VBG pO2 VBG HCO3 VBG O2 Saturation VBG Base Excess Sodium Potassium Chloride Carbon Dioxide Anion Gap BUN Creatinine Estim Creat Clear Calc Estimated GFR POC Glucose 165 H Random Glucose Fasting Glucose Calcium Phosphorus Magnesium Total Bilirubin AST ALT Alkaline Phosphatase Ammonia 84 H Total Protein Albumin Crossmatch 06/26/22 06/26/22 06/26/22 08:16 10:19 12:22 WBC RBC Hgb Hct MCV MCH MCHC RDW Plt Count MPV Immature Gran % (Auto) Neut % (Auto) Lymph % (Auto) [place] % (Auto) Eos % (Auto) Baso % (Auto) Lymph # (Auto) [place] # (Auto) Eos # (Auto) Baso # (Auto) Abs Immat Gran (auto) Absolute Neuts (auto) Absolute Nucleated RBC Nucleated RBC % (auto) Smear Tech's Comments PT INR VBG pH VBG pCO2 VBG pO2 VBG HCO3 VBG O2 Saturation VBG Base Excess Sodium Potassium Chloride Carbon Dioxide Anion Gap BUN Creatinine Estim Creat Clear Calc Estimated GFR POC Glucose 176 H 160 H 158 H Random Glucose Fasting Glucose Calcium Phosphorus Magnesium Total Bilirubin AST ALT Alkaline Phosphatase Ammonia Total Protein Albumin Crossmatch Microbiology Microbiology Results: Microbiology 06/22/22 15:05 Peritoneal Fluid Gram Stain - Final 06/22/22 15:05 Peritoneal Fluid Routine Culture - Final No growth after 2 days 06/22/22 15:05 Peritoneal Fluid Anaerobic Culture - Preliminary No growth to date. 06/24/22 14:38 Blood - Central Line Blood Culture - Preliminary No growth after 24 hours. 06/24/22 14:39 Blood - Central Line Blood Culture - Preliminary No growth after 24 hours. Procedures Date of Service Date of Service: 06/26/22 Assessment & Plan Assessment and plan (1) 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: Status: Acute (2) Hypotension: Status: Acute (3) Acute on chronic kidney failure: Status: Acute (4) MSSA bacteremia: Status: Acute (5) Hyponatremia: Status: Acute Plan Now Resp failre req intubation and w ques related to Xfusion (TACO) and SHOCK on pressors in ICU and diuretics started by ICU - Non-Oliguric DULCE: most c/w HRSyn but now signif risk for furhter DULCE from ischemic ATN; initially was c/w HRS and LgVol Paracentesis possible precipitating HRS good news is incr UOP and SCr satble - Cirrhosis - Recurrent severe ascites requiring recurrent taps - DM - Anemia: s/p xfusion - Intravascular Vol status ?: challenging assessment--certainly 3rd spaced fluid Overall critically ill now and at signif risk for needing FIRE PREVENTION INSPECTOR in next 24-48 hrs REC: no indications for FIRE PREVENTION INSPECTOR at this time; optimize HDynamics and renal perfusion and ICU team considering RH Cath to eval IV vol and need for diuretics vs IV vol, ; track UOP/renal func; avoid Ntoxins; xfer to liver xplant program if DULCE progresses Will follow sonia cruz team Time Spent With Patient Time: Total time managing care of this patient today ____ minutes. Progress Note: Quality Stroke Does the patient have a stroke diagnosis?: No
[2022-06-26 14:06] LABS: Glucose, Whole Blood 144 mg/dL (60-115)
--- NOTE | 2022-06-26 14:14 | MHC.CM.PN ---
Pt has begun a sedation vacation trial in anticipation of vent weaning. Pt may transfer to [facility] for evaluation of ? liver tx. Initial disposition was for a return to home with family support. CM to follow for finalization of d/c needs
[2022-06-26] MEDS: Norepinephrine Bitartrate/D5W 8 MG/250 ML PLAST..BAG 16.67 MG IV (15:19)
[2022-06-26] MEDS: Insulin Regular/NS 100 UNIT/100 ML PLAST..BAG 7.25 UNIT IVCONT (15:20)
[2022-06-26 16:28] LABS: Glucose, Whole Blood 129 mg/dL (60-115)
[2022-06-26 18:13] LABS: Glucose, Whole Blood 123 mg/dL (60-115)
[2022-06-26 20:05] LABS: Glucose, Whole Blood 102 mg/dL (60-115)
[2022-06-26 22:03] LABS: Glucose, Whole Blood 135 mg/dL (60-115)
[2022-06-26 23:53] LABS: Glucose, Whole Blood 146 mg/dL (60-115)
[2022-06-27] VITALS (33 sets, daily range): BP systolic 106–131; BP diastolic 47–82; PULSE 85–119; RESP 16–23; TEMP 34–37.6; O2SAT 95–99; BMI 51.2
[2022-06-27 01:47] LABS: Glucose, Whole Blood 158 mg/dL (60-115)
[2022-06-27 04:03] LABS: Glucose, Whole Blood 157 mg/dL (60-115)
[2022-06-27] MEDS: Albuterol Sulfate (0.083%) 2.5 MG/3 ML VIAL.NEB INHALE ×5 (04:24→20:56)
[2022-06-27 05:03] LABS: VBG HCO3 29 mmol/L (22-26); VBG pCO2 36 mmHg; VBG pH 7.52 (7.32-7.43); VBG pO2 53 mmHg
[2022-06-27 05:05] LABS: MANUAL DIFF FLAG NO; Venous Blood Gas Refer to POC result
[2022-06-27 05:10] LABS: Basophils Percent Auto 0.1 % (0-2); Eosinophils Absolute Auto 0.3 X10*3/uL (0.0-0.4); Eosinophils Percent Auto 3.5 % (0-4); Hemoglobin 8.9 g/dl (12.0-16.0); Imm Gran Abs Auto 0.06 X10*3/uL (0.00-0.03); Imm Gran Pct Auto 0.7 % (0.0-0.4); Lymphocytes Absolute Auto 0.6 X10*3/uL (1.2-4.9); Lymphocytes Percent Auto 7.2 % (20-40); Mean Corpuscular Hemoglobin 32.1 pg (27.0-33.0); Mean Corpuscular Volume 97.5 fL (80.0-98.0); Mean Platelet Volume 10.8 fL (9.4-12.3); Monocytes Absolute Auto 1.4 X10*3/uL (0.1-1.2); Monocytes Percent Auto 15.7 % (2-11); Neutrophils Absolute Auto 6.4 x10*3/uL (2.0-8.3); Neutrophils Percent Auto 72.8 % (45-73); Red Blood Count 2.77 X10*6/uL (4.20-5.50); Red Cell Distribution Width 17.7 % (11.0-16.0); White Blood Count 8.8 X10*3/uL (4.8-10.8)
[2022-06-27 05:12] LABS: Platelet Count 45 X10*3/uL (160-400)
[2022-06-27 05:14] LABS: INTERNATIONAL NORM RATIO 1.9 (0.9-1.1); Prothrombin Time 22.8 SEC (10.0-13.1)
[2022-06-27 05:16] LABS: Ammonia 63 umol/L (13-55)
[2022-06-27 05:31] LABS: Alanine Aminotransferase < 6 U/L (0-31); Albumin Level 3.6 g/dL (3.5-5.0); Alkaline Phosphatase 44 U/L (39-117); Anion Gap 14 (12-20); Aspartate Amino Transferase 35 U/L (5-31); Bilirubin Total 5.5 mg/dL (0.0-1.0); Blood Urea Nitrogen 76 mg/dL (9-16); Calcium 8.5 mg/dL (8.4-10.2); Carbon Dioxide 30 mmol/L (22-29); Chloride 94 mmol/L (96-108); Creatinine Clr Calc Pharmacy 45.1; Estimated Glomerular Filt Rate 26; Glucose Random 163 mg/dL (60-115); Magnesium 1.6 mg/dL (1.6-2.6); Phosphorus 3.1 mg/dL (2.7-4.5); Potassium 4.1 mmol/L (3.3-5.1); Sodium 134 mmol/L (135-145)
[2022-06-27] MEDS: Norepinephrine Bitartrate/D5W 8 MG/250 ML PLAST..BAG 14.29 MG IV (05:45)
[2022-06-27] MEDS: Levothyroxine Sodium 100 MCG/5 ML VIAL 25 MCG IVPUSH (05:48)
[2022-06-27] MEDS: Octreotide Acetate 100 MCG/ML AMPUL 200 MCG SUBCUT ×3 (05:50→21:47)
[2022-06-27] MEDS: Magnesium Sulfate/D5W 1 GM/100 ML PIGGYBACK IV (05:53)
[2022-06-27 06:11] LABS: Glucose, Whole Blood 168 mg/dL (60-115)
[2022-06-27] MEDS: Insulin Regular/NS 100 UNIT/100 ML PLAST..BAG IVCONT (06:17)
--- NOTE | 2022-06-27 07:45 | P.PNCC_ITS ---
Subjective Subjective Date of Service: 06/27/22 Interval History: 47-year-old with complex metabolic syndrome with polycystic ovary syndrome in addition to type 2 diabetes and with morbid obesity and non alcoholic steatohepatitis creating end-stage cirrhosis with the with severe portal hy pertension and hepatic insufficiency with an elevated protime of 22 seconds and INR 1.9 who had a large volume paracentesis of 9 L with a drop in blood pressure drop in hemoglobin precipitating a transfusion and then right after the transfusion transfusion related acute lung injury came down with dramatic hypoxemia progressive oliguria increasing creatinine and was intubated emergently with central line access put in with marked elevation of CVP initially at 18 as the ARDS has been resolving his CVP climbed and she was 8 L positive cumulatively so it precipitated a single diuresis and she has been tire E [place] ever since then because I think it is reflecting kidney recovery S so her peak creatinine which was 2.5 is down to 2.04 today bilirubin is improved down to 5.5 sodium is improved from 05/20 up to 134 but all told he gives us a MELD score of 28 which carries with it a fairly poor prognosis and the words a significant mortality over the 30-90 day period of time and contact was made with the transplant center a to see if we can gain except in stairs specially given her young age She also had the MSSA bacteremia for which she is on Levaquin and doing quite well surveillance repeat cultures have all been negative Critical Care Time (minutes): 45 Physical Exam Vital Signs: Vital Signs: Last Vital Signs Temp 99.3 F 06/27/22 07:00 Pulse 107 H 06/27/22 07:00 Resp 16 06/27/22 07:00 BP 108/52 L 06/27/22 07:00 Pulse Ox 99 06/27/22 07:00 O2 Del Method 06/27/22 07:00 O2 Flow Rate 15 06/24/22 01:17 FiO2 40 06/27/22 07:00 BMI result Body Mass Index 51.2 She 24 hours after stopping her sedation she still remains unresponsive both to loud noise and to touch Her CVP which was elevated yesterday at 25 is down to 15 post diuresis remains since in sinus rhythm at a rate of about 100 on FiO2 of 40% her saturations are 99% in his soon as she wakes up on going to try a pressure support weaning trial Lungs she has bilateral small pleural effusions that is unchanged Bedside cardiac exam showing if anything a hyperdynamic left ventricle Objective Data Labs 06/27/22 04:54 06/27/22 04:54 Labs: Laboratory Results - last 24 hr 06/23/22 06/26/22 06/26/22 09:32 08:16 10:19 WBC RBC Hgb Hct MCV MCH MCHC RDW Plt Count MPV Immature Gran % (Auto) Neut % (Auto) Lymph % (Auto) [place] % (Auto) Eos % (Auto) Baso % (Auto) Lymph # (Auto) [place] # (Auto) Eos # (Auto) Baso # (Auto) Abs Immat Gran (auto) Absolute Neuts (auto) Absolute Nucleated RBC Nucleated RBC % (auto) PT INR VBG pH VBG pCO2 VBG pO2 VBG HCO3 VBG O2 Saturation VBG Base Excess Sodium Potassium Chloride Carbon Dioxide Anion Gap BUN Creatinine Estim Creat Clear Calc Estimated GFR POC Glucose 176 H 160 H Random Glucose Calcium Phosphorus Magnesium Total Bilirubin AST ALT Alkaline Phosphatase Ammonia Total Protein Albumin Crossmatch See Detail 06/26/22 06/26/22 06/26/22 12:22 14:02 16:22 WBC RBC Hgb Hct MCV MCH MCHC RDW Plt Count MPV Immature Gran % (Auto) Neut % (Auto) Lymph % (Auto) [place] % (Auto) Eos % (Auto) Baso % (Auto) Lymph # (Auto) [place] # (Auto) Eos # (Auto) Baso # (Auto) Abs Immat Gran (auto) Absolute Neuts (auto) Absolute Nucleated RBC Nucleated RBC % (auto) PT INR VBG pH VBG pCO2 VBG pO2 VBG HCO3 VBG O2 Saturation VBG Base Excess Sodium Potassium Chloride Carbon Dioxide Anion Gap BUN Creatinine Estim Creat Clear Calc Estimated GFR POC Glucose 158 H 144 H 129 H Random Glucose Calcium Phosphorus Magnesium Total Bilirubin AST ALT Alkaline Phosphatase Ammonia Total Protein Albumin Crossmatch 06/26/22 06/26/22 06/26/22 18:09 20:02 22:00 WBC RBC Hgb Hct MCV MCH MCHC RDW Plt Count MPV Immature Gran % (Auto) Neut % (Auto) Lymph % (Auto) [place] % (Auto) Eos % (Auto) Baso % (Auto) Lymph # (Auto) [place] # (Auto) Eos # (Auto) Baso # (Auto) Abs Immat Gran (auto) Absolute Neuts (auto) Absolute Nucleated RBC Nucleated RBC % (auto) PT INR VBG pH VBG pCO2 VBG pO2 VBG HCO3 VBG O2 Saturation VBG Base Excess Sodium Potassium Chloride Carbon Dioxide Anion Gap BUN Creatinine Estim Creat Clear Calc Estimated GFR POC Glucose 123 H 102 135 H Random Glucose Calcium Phosphorus Magnesium Total Bilirubin AST ALT Alkaline Phosphatase Ammonia Total Protein Albumin Crossmatch 06/26/22 06/27/22 06/27/22 23:47 01:43 03:59 WBC RBC Hgb Hct MCV MCH MCHC RDW Plt Count MPV Immature Gran % (Auto) Neut % (Auto) Lymph % (Auto) [place] % (Auto) Eos % (Auto) Baso % (Auto) Lymph # (Auto) [place] # (Auto) Eos # (Auto) Baso # (Auto) Abs Immat Gran (auto) Absolute Neuts (auto) Absolute Nucleated RBC Nucleated RBC % (auto) PT INR VBG pH VBG pCO2 VBG pO2 VBG HCO3 VBG O2 Saturation VBG Base Excess Sodium Potassium Chloride Carbon Dioxide Anion Gap BUN Creatinine Estim Creat Clear Calc Estimated GFR POC Glucose 146 H 158 H 157 H Random Glucose Calcium Phosphorus Magnesium Total Bilirubin AST ALT Alkaline Phosphatase Ammonia Total Protein Albumin Crossmatch 06/27/22 06/27/22 06/27/22 04:54 04:54 04:54 WBC 8.8 RBC 2.77 L Hgb 8.9 L Hct 27.0 L MCV 97.5 MCH 32.1 MCHC 33.0 RDW 17.7 H Plt Count 45 L MPV 10.8 Immature Gran % (Auto) 0.7 H Neut % (Auto) 72.8 Lymph % (Auto) 7.2 L [place] % (Auto) 15.7 H Eos % (Auto) 3.5 Baso % (Auto) 0.1 Lymph # (Auto) 0.6 L [place] # (Auto) 1.4 H Eos # (Auto) 0.3 Baso # (Auto) 0.0 Abs Immat Gran (auto) 0.06 H Absolute Neuts (auto) 6.4 Absolute Nucleated RBC 0.000 Nucleated RBC % (auto) 0.0 PT 22.8 H INR 1.9 H VBG pH VBG pCO2 VBG pO2 VBG HCO3 VBG O2 Saturation VBG Base Excess Sodium Potassium Chloride Carbon Dioxide Anion Gap BUN Creatinine Estim Creat Clear Calc Estimated GFR POC Glucose Random Glucose Calcium Phosphorus Magnesium Total Bilirubin AST ALT Alkaline Phosphatase Ammonia 63 H Total Protein Albumin Crossmatch 06/27/22 06/27/22 06/27/22 04:54 04:54 04:55 WBC RBC Hgb Hct MCV MCH MCHC RDW Plt Count MPV Immature Gran % (Auto) Neut % (Auto) Lymph % (Auto) [place] % (Auto) Eos % (Auto) Baso % (Auto) Lymph # (Auto) [place] # (Auto) Eos # (Auto) Baso # (Auto) Abs Immat Gran (auto) Absolute Neuts (auto) Absolute Nucleated RBC Nucleated RBC % (auto) PT INR VBG pH 7.52 H VBG pCO2 36 VBG pO2 53 VBG HCO3 29 H VBG O2 Saturation 85.0 VBG Base Excess 7.0 Sodium 134 L Potassium 4.1 Chloride 94 L Carbon Dioxide 30 H Anion Gap 14 BUN 76 H Creatinine 2.04 H Cancelled Estim Creat Clear Calc 45.1 Cancelled Estimated GFR 26 Cancelled POC Glucose Random Glucose 163 H Calcium 8.5 Phosphorus 3.1 Magnesium 1.6 Total Bilirubin 5.5 H AST 35 H ALT < 6 Alkaline Phosphatase 44 Ammonia Total Protein 6.0 L Albumin 3.6 Crossmatch 06/27/22 06:07 WBC RBC Hgb Hct MCV MCH MCHC RDW Plt Count MPV Immature Gran % (Auto) Neut % (Auto) Lymph % (Auto) [place] % (Auto) Eos % (Auto) Baso % (Auto) Lymph # (Auto) [place] # (Auto) Eos # (Auto) Baso # (Auto) Abs Immat Gran (auto) Absolute Neuts (auto) Absolute Nucleated RBC Nucleated RBC % (auto) PT INR VBG pH VBG pCO2 VBG pO2 VBG HCO3 VBG O2 Saturation VBG Base Excess Sodium Potassium Chloride Carbon Dioxide Anion Gap BUN Creatinine Estim Creat Clear Calc Estimated GFR POC Glucose 168 H Random Glucose Calcium Phosphorus Magnesium Total Bilirubin AST ALT Alkaline Phosphatase Ammonia Total Protein Albumin Crossmatch Microbiology Microbiology Results: Microbiology 06/24/22 14:38 Blood - Central Line Blood Culture - Preliminary No growth after 48 hours. 06/24/22 14:39 Blood - Central Line Blood Culture - Preliminary No growth after 48 hours. 06/22/22 15:05 Peritoneal Fluid Gram Stain - Final 06/22/22 15:05 Peritoneal Fluid Routine Culture - Final No growth after 2 days 06/22/22 15:05 Peritoneal Fluid Anaerobic Culture - Preliminary No growth to date. 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: Status: Acute (11) 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: Status: Acute (12) Hyponatremia: Status: Acute (13) Positive blood culture: Status: Acute (14) Coagulopathy: Status: Acute (15) Pneumonia: Status: Acute (16) Thrombocytopenia: Status: Acute (17) Ascites: Status: Acute (18) Acute hyponatremia: Status: Acute (19) Numbness and tingling in both hands: Status: Acute (20) Non-toxic multinodular goiter: Status: Acute (21) Diabetic nephropathy associated with type 2 diabetes mellitus: Status: Acute (22) Elevated TSH: Status: Acute (23) Goiter: Status: Acute (24) Acromegaly: Status: Acute (25) PCOS (polycystic ovarian syndrome): Status: Acute (26) technician terminal and repeater (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 insulin: Status: Acute (27) Diabetes type 2, uncontrolled: Status: Acute (28) Morbid obesity: Status: Acute Plan So the plan is to touch base again with the transplant center and in particular with the general expeditor even though still intubated because we are just simply awaiting for her to wake up and I think that she will be able to respond to a pressure support weaning trial Her renal insufficiency is resolving the with stable hepatic function relatively stable degree of thrombocytopenia and despite the this and the elevated prothrombin time contributing to coagulopathy this no clinical bleeding and and clinically she has scattered be at least 3 weeks into her treatment for the methicillin sensitive Staph aureus bacteremia The hopeful plan with a meld score of 28 would be to be able to transfer to a tertiary transplant center and in this case that is [facility] Quality Stroke Does the patient have a stroke diagnosis?: No VTE Prior VTE?: No VTE Risk Level:: Medical - moderate - high VTE Device Contraindication: N/A - Device Ordered VTE Drug Contraindication: Treatment Not Indicated
[2022-06-27] MEDS: Chlorhexidine Gluc Oral Rinse 15 ML MOUTHWASH BUCCAL ×3 (08:17→20:00)
[2022-06-27] MEDS: Lactulose 20 GM/30 ML SOLUTION PO ×2 (08:17→20:00)
[2022-06-27] MEDS: Famotidine/PF 20 MG/2 ML VIAL IVPUSH (08:17)
[2022-06-27] MEDS: Thiamine HCL 100 MG TABLET PO (08:18)
[2022-06-27] MEDS: 0.9 % Sodium Chloride Flush 3 ML SYRINGE IVFLUSH ×2 (08:18→13:02)
[2022-06-27] MEDS: levoFLOXacin/D5W 250 MG/50 ML PIGGYBACK 50 MG IV (08:18)
[2022-06-27 08:27] LABS: Glucose, Whole Blood 168 mg/dL (60-115)
--- NOTE | 2022-06-27 09:20 | PM.GIPN ---
Subjective Subjective Date of Service: 06/27/22 Interval History: remains on the vent, coming down on O2 and PEEP renal function has plateued responsive at times Critical Care Time (minutes): 0 Physical Exam Vital Signs: Vital Signs: Last Vital Signs Temp 97.7 F 06/27/22 08:00 Pulse 85 06/27/22 08:00 Resp 16 06/27/22 08:00 BP 112/56 L 06/27/22 08:00 Pulse Ox 95 06/27/22 08:00 O2 Del Method 06/27/22 08:00 O2 Flow Rate 15 06/24/22 01:17 FiO2 30 06/27/22 08:14 BMI result Body Mass Index 51.2 EXAM: GENERAL: The patient is obese, on the vent VITAL SIGNS:see workflow HEENT: icteric sclerae, PERRLA, EOMI. Oropharynx clear. Moist mucous membranes. Conjunctivae appear well perfused. No thyroid mass. CHEST: Chest wall is nontender. HEART: Regular rate and rhythm without murmurs. LUNGS: Reduced BS b/l ABDOMEN: Soft, positive bowel sounds, nontender, no organomegaly.no flank tenderness SKIN: No rash, no excessive bruising, petechiae, or purpura. NEUROLOGIC: SUZI peripheral edema Objective Data Labs 06/27/22 04:54 06/27/22 04:54 Labs: Laboratory Results - last 24 hr 06/23/22 06/26/22 06/26/22 09:32 10:19 12:22 WBC RBC Hgb Hct MCV MCH MCHC RDW Plt Count MPV Immature Gran % (Auto) Neut % (Auto) Lymph % (Auto) [place] % (Auto) Eos % (Auto) Baso % (Auto) Lymph # (Auto) [place] # (Auto) Eos # (Auto) Baso # (Auto) Abs Immat Gran (auto) Absolute Neuts (auto) Absolute Nucleated RBC Nucleated RBC % (auto) PT INR VBG pH VBG pCO2 VBG pO2 VBG HCO3 VBG O2 Saturation VBG Base Excess Sodium Potassium Chloride Carbon Dioxide Anion Gap BUN Creatinine Estim Creat Clear Calc Estimated GFR POC Glucose 160 H 158 H Random Glucose Calcium Phosphorus Magnesium Total Bilirubin AST ALT Alkaline Phosphatase Ammonia Total Protein Albumin Crossmatch See Detail 06/26/22 06/26/22 06/26/22 14:02 16:22 18:09 WBC RBC Hgb Hct MCV MCH MCHC RDW Plt Count MPV Immature Gran % (Auto) Neut % (Auto) Lymph % (Auto) [place] % (Auto) Eos % (Auto) Baso % (Auto) Lymph # (Auto) [place] # (Auto) Eos # (Auto) Baso # (Auto) Abs Immat Gran (auto) Absolute Neuts (auto) Absolute Nucleated RBC Nucleated RBC % (auto) PT INR VBG pH VBG pCO2 VBG pO2 VBG HCO3 VBG O2 Saturation VBG Base Excess Sodium Potassium Chloride Carbon Dioxide Anion Gap BUN Creatinine Estim Creat Clear Calc Estimated GFR POC Glucose 144 H 129 H 123 H Random Glucose Calcium Phosphorus Magnesium Total Bilirubin AST ALT Alkaline Phosphatase Ammonia Total Protein Albumin Crossmatch 06/26/22 06/26/22 06/26/22 20:02 22:00 23:47 WBC RBC Hgb Hct MCV MCH MCHC RDW Plt Count MPV Immature Gran % (Auto) Neut % (Auto) Lymph % (Auto) [place] % (Auto) Eos % (Auto) Baso % (Auto) Lymph # (Auto) [place] # (Auto) Eos # (Auto) Baso # (Auto) Abs Immat Gran (auto) Absolute Neuts (auto) Absolute Nucleated RBC Nucleated RBC % (auto) PT INR VBG pH VBG pCO2 VBG pO2 VBG HCO3 VBG O2 Saturation VBG Base Excess Sodium Potassium Chloride Carbon Dioxide Anion Gap BUN Creatinine Estim Creat Clear Calc Estimated GFR POC Glucose 102 135 H 146 H Random Glucose Calcium Phosphorus Magnesium Total Bilirubin AST ALT Alkaline Phosphatase Ammonia Total Protein Albumin Crossmatch 06/27/22 06/27/22 06/27/22 01:43 03:59 04:54 WBC RBC Hgb Hct MCV MCH MCHC RDW Plt Count MPV Immature Gran % (Auto) Neut % (Auto) Lymph % (Auto) [place] % (Auto) Eos % (Auto) Baso % (Auto) Lymph # (Auto) [place] # (Auto) Eos # (Auto) Baso # (Auto) Abs Immat Gran (auto) Absolute Neuts (auto) Absolute Nucleated RBC Nucleated RBC % (auto) PT 22.8 H INR 1.9 H VBG pH VBG pCO2 VBG pO2 VBG HCO3 VBG O2 Saturation VBG Base Excess Sodium Potassium Chloride Carbon Dioxide Anion Gap BUN Creatinine Estim Creat Clear Calc Estimated GFR POC Glucose 158 H 157 H Random Glucose Calcium Phosphorus Magnesium Total Bilirubin AST ALT Alkaline Phosphatase Ammonia Total Protein Albumin Crossmatch 06/27/22 06/27/22 06/27/22 04:54 04:54 04:54 WBC 8.8 RBC 2.77 L Hgb 8.9 L Hct 27.0 L MCV 97.5 MCH 32.1 MCHC 33.0 RDW 17.7 H Plt Count 45 L MPV 10.8 Immature Gran % (Auto) 0.7 H Neut % (Auto) 72.8 Lymph % (Auto) 7.2 L [place] % (Auto) 15.7 H Eos % (Auto) 3.5 Baso % (Auto) 0.1 Lymph # (Auto) 0.6 L [place] # (Auto) 1.4 H Eos # (Auto) 0.3 Baso # (Auto) 0.0 Abs Immat Gran (auto) 0.06 H Absolute Neuts (auto) 6.4 Absolute Nucleated RBC 0.000 Nucleated RBC % (auto) 0.0 PT INR VBG pH VBG pCO2 VBG pO2 VBG HCO3 VBG O2 Saturation VBG Base Excess Sodium 134 L Potassium 4.1 Chloride 94 L Carbon Dioxide 30 H Anion Gap 14 BUN 76 H Creatinine 2.04 H Estim Creat Clear Calc 45.1 Estimated GFR 26 POC Glucose Random Glucose 163 H Calcium 8.5 Phosphorus 3.1 Magnesium 1.6 Total Bilirubin 5.5 H AST 35 H ALT < 6 Alkaline Phosphatase 44 Ammonia 63 H Total Protein 6.0 L Albumin 3.6 Crossmatch 06/27/22 06/27/22 06/27/22 04:54 04:55 06:07 WBC RBC Hgb Hct MCV MCH MCHC RDW Plt Count MPV Immature Gran % (Auto) Neut % (Auto) Lymph % (Auto) [place] % (Auto) Eos % (Auto) Baso % (Auto) Lymph # (Auto) [place] # (Auto) Eos # (Auto) Baso # (Auto) Abs Immat Gran (auto) Absolute Neuts (auto) Absolute Nucleated RBC Nucleated RBC % (auto) PT INR VBG pH 7.52 H VBG pCO2 36 VBG pO2 53 VBG HCO3 29 H VBG O2 Saturation 85.0 VBG Base Excess 7.0 Sodium Potassium Chloride Carbon Dioxide Anion Gap BUN Creatinine Cancelled Estim Creat Clear Calc Cancelled Estimated GFR Cancelled POC Glucose 168 H Random Glucose Calcium Phosphorus Magnesium Total Bilirubin AST ALT Alkaline Phosphatase Ammonia Total Protein Albumin Crossmatch 06/27/22 08:23 WBC RBC Hgb Hct MCV MCH MCHC RDW Plt Count MPV Immature Gran % (Auto) Neut % (Auto) Lymph % (Auto) [place] % (Auto) Eos % (Auto) Baso % (Auto) Lymph # (Auto) [place] # (Auto) Eos # (Auto) Baso # (Auto) Abs Immat Gran (auto) Absolute Neuts (auto) Absolute Nucleated RBC Nucleated RBC % (auto) PT INR VBG pH VBG pCO2 VBG pO2 VBG HCO3 VBG O2 Saturation VBG Base Excess Sodium Potassium Chloride Carbon Dioxide Anion Gap BUN Creatinine Estim Creat Clear Calc Estimated GFR POC Glucose 168 H Random Glucose Calcium Phosphorus Magnesium Total Bilirubin AST ALT Alkaline Phosphatase Ammonia Total Protein Albumin Crossmatch Microbiology Microbiology Results: Microbiology 06/24/22 14:38 Blood - Central Line Blood Culture - Preliminary No growth after 48 hours. 06/24/22 14:39 Blood - Central Line Blood Culture - Preliminary No growth after 48 hours. 06/22/22 15:05 Peritoneal Fluid Gram Stain - Final 06/22/22 15:05 Peritoneal Fluid Routine Culture - Final No growth after 2 days 06/22/22 15:05 Peritoneal Fluid Anaerobic Culture - Preliminary No growth to date. Procedures Date of Service Date of Service: 06/27/22 Progress Note: A&P Assessment and plan (1) 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: Status: Acute (2) MSSA bacteremia: Status: Acute (3) ARDS (adult respiratory distress syndrome): Status: Acute Plan 1/ Acute hypoxic failure possibly from ARDS or pneumonia, on vent and complicated by renal failure and background hx of cirrhosis. Seems to be making slow by steady progress with weaning of O2, and pressors support. PLAN: 1/ Check for reaccumulation of ascites and remove if large vol, would give 25% albumin 2/vit K 10 mg IV see if INR reverses Time Spent With Patient Time: Total time managing care of this patient today ____ minutes. Quality Stroke Does the patient have a stroke diagnosis?: No VTE Prior VTE?: No VTE Risk Level:: Medical - moderate - high VTE Device Contraindication: N/A - Device Ordered VTE Drug Contraindication: Treatment Not Indicated
[2022-06-27 10:12] LABS: Glucose, Whole Blood 151 mg/dL (60-115)
--- NOTE | 2022-06-27 10:26 | MHC.CLN ---
F/U PATIENT INTUBATED AND OFF OF SEDTION. TOLERATING CURRENT TUBE FEEDING, NEPRO AT 20 ML PER HOUR. 120 ML WATER FLUSH Q 4 HOURS. PROVIDES 864 KCALS (16.5 KCALS/KG IBW); 39 G PROTEIN (.75 G/KG IBW); 1069 ML FREE WATER FROM FORMULA AND FLUSH (20.4 ML/KG IBW). MONITOR TUBE FEED TOLERANCE AND LABS. FOLLOW WITH TEAM FOR PLAN OF CARE.
[2022-06-27] MEDS: Phytonadione (Vit K1) Oral 10 MG/ML AMPUL PO (10:47)
[2022-06-27 12:05] LABS: Glucose, Whole Blood 179 mg/dL (60-115)
[2022-06-27 13:50] LABS: Glucose, Whole Blood 167 mg/dL (60-115)
[2022-06-27 14:24] LABS: Vancomycin Trough 6.1 mcg/mL (10.0-20.0)
--- NOTE | 2022-06-27 15:30 | MHC.CM.PN ---
Pt remains on ventilatory support: MELD score 28: Waiting for ASS to respond for possible transfer to liver tx care team given her young age and poor scoring. CM to follow for eventual d/c needs
--- NOTE | 2022-06-27 15:50 | PM.PNNEP ---
Subjective Subjective Date of Service: 06/27/22 Interval history: remains on the vent, renal function has improved responsive at times Physical Exam Vital Signs: Vital Signs: Last Vital Signs Temp 99.5 F 06/27/22 15:00 Pulse 115 H 06/27/22 15:11 Resp 17 06/27/22 15:11 BP 123/62 06/27/22 15:00 Pulse Ox 95 06/27/22 15:00 O2 Del Method 06/27/22 15:00 O2 Flow Rate 15 06/24/22 01:17 FiO2 30 06/27/22 15:07 BMI result Body Mass Index 51.2 Const: Other: no acute distress Resp: Other: clear to auscultation bilaterally. No rales rhonchi or wheezes Cardio: Other: no S4; positive S1-S2; no S3 murmurs rubs or gallops GI: Other: soft nontender nondistended normoactive bowel sounds Extrem: Other: no edema bilaterally Objective Data Labs 06/27/22 04:54 06/27/22 04:54 Labs: Laboratory Results - last 24 hr 06/26/22 06/26/22 06/26/22 16:22 18:09 20:02 WBC RBC Hgb Hct MCV MCH MCHC RDW Plt Count MPV Immature Gran % (Auto) Neut % (Auto) Lymph % (Auto) [place] % (Auto) Eos % (Auto) Baso % (Auto) Lymph # (Auto) [place] # (Auto) Eos # (Auto) Baso # (Auto) Abs Immat Gran (auto) Absolute Neuts (auto) Absolute Nucleated RBC Nucleated RBC % (auto) PT INR VBG pH VBG pCO2 VBG pO2 VBG HCO3 VBG O2 Saturation VBG Base Excess Sodium Potassium Chloride Carbon Dioxide Anion Gap BUN Creatinine Estim Creat Clear Calc Estimated GFR POC Glucose 129 H 123 H 102 Random Glucose Calcium Phosphorus Magnesium Total Bilirubin AST ALT Alkaline Phosphatase Ammonia Total Protein Albumin Vancomycin Trough 06/26/22 06/26/22 06/27/22 22:00 23:47 01:43 WBC RBC Hgb Hct MCV MCH MCHC RDW Plt Count MPV Immature Gran % (Auto) Neut % (Auto) Lymph % (Auto) [place] % (Auto) Eos % (Auto) Baso % (Auto) Lymph # (Auto) [place] # (Auto) Eos # (Auto) Baso # (Auto) Abs Immat Gran (auto) Absolute Neuts (auto) Absolute Nucleated RBC Nucleated RBC % (auto) PT INR VBG pH VBG pCO2 VBG pO2 VBG HCO3 VBG O2 Saturation VBG Base Excess Sodium Potassium Chloride Carbon Dioxide Anion Gap BUN Creatinine Estim Creat Clear Calc Estimated GFR POC Glucose 135 H 146 H 158 H Random Glucose Calcium Phosphorus Magnesium Total Bilirubin AST ALT Alkaline Phosphatase Ammonia Total Protein Albumin Vancomycin Trough 06/27/22 06/27/22 06/27/22 03:59 04:54 04:54 WBC RBC Hgb Hct MCV MCH MCHC RDW Plt Count MPV Immature Gran % (Auto) Neut % (Auto) Lymph % (Auto) [place] % (Auto) Eos % (Auto) Baso % (Auto) Lymph # (Auto) [place] # (Auto) Eos # (Auto) Baso # (Auto) Abs Immat Gran (auto) Absolute Neuts (auto) Absolute Nucleated RBC Nucleated RBC % (auto) PT 22.8 H INR 1.9 H VBG pH VBG pCO2 VBG pO2 VBG HCO3 VBG O2 Saturation VBG Base Excess Sodium Potassium Chloride Carbon Dioxide Anion Gap BUN Creatinine Estim Creat Clear Calc Estimated GFR POC Glucose 157 H Random Glucose Calcium Phosphorus Magnesium Total Bilirubin AST ALT Alkaline Phosphatase Ammonia 63 H Total Protein Albumin Vancomycin Trough 06/27/22 06/27/22 06/27/22 04:54 04:54 04:54 WBC 8.8 RBC 2.77 L Hgb 8.9 L Hct 27.0 L MCV 97.5 MCH 32.1 MCHC 33.0 RDW 17.7 H Plt Count 45 L MPV 10.8 Immature Gran % (Auto) 0.7 H Neut % (Auto) 72.8 Lymph % (Auto) 7.2 L [place] % (Auto) 15.7 H Eos % (Auto) 3.5 Baso % (Auto) 0.1 Lymph # (Auto) 0.6 L [place] # (Auto) 1.4 H Eos # (Auto) 0.3 Baso # (Auto) 0.0 Abs Immat Gran (auto) 0.06 H Absolute Neuts (auto) 6.4 Absolute Nucleated RBC 0.000 Nucleated RBC % (auto) 0.0 PT INR VBG pH VBG pCO2 VBG pO2 VBG HCO3 VBG O2 Saturation VBG Base Excess Sodium 134 L Potassium 4.1 Chloride 94 L Carbon Dioxide 30 H Anion Gap 14 BUN 76 H Creatinine 2.04 H Cancelled Estim Creat Clear Calc 45.1 Cancelled Estimated GFR 26 Cancelled POC Glucose Random Glucose 163 H Calcium 8.5 Phosphorus 3.1 Magnesium 1.6 Total Bilirubin 5.5 H AST 35 H ALT < 6 Alkaline Phosphatase 44 Ammonia Total Protein 6.0 L Albumin 3.6 Vancomycin Trough 06/27/22 06/27/22 06/27/22 04:55 06:07 08:23 WBC RBC Hgb Hct MCV MCH MCHC RDW Plt Count MPV Immature Gran % (Auto) Neut % (Auto) Lymph % (Auto) [place] % (Auto) Eos % (Auto) Baso % (Auto) Lymph # (Auto) [place] # (Auto) Eos # (Auto) Baso # (Auto) Abs Immat Gran (auto) Absolute Neuts (auto) Absolute Nucleated RBC Nucleated RBC % (auto) PT INR VBG pH 7.52 H VBG pCO2 36 VBG pO2 53 VBG HCO3 29 H VBG O2 Saturation 85.0 VBG Base Excess 7.0 Sodium Potassium Chloride Carbon Dioxide Anion Gap BUN Creatinine Estim Creat Clear Calc Estimated GFR POC Glucose 168 H 168 H Random Glucose Calcium Phosphorus Magnesium Total Bilirubin AST ALT Alkaline Phosphatase Ammonia Total Protein Albumin Vancomycin Trough 06/27/22 06/27/22 06/27/22 10:09 12:01 13:47 WBC RBC Hgb Hct MCV MCH MCHC RDW Plt Count MPV Immature Gran % (Auto) Neut % (Auto) Lymph % (Auto) [place] % (Auto) Eos % (Auto) Baso % (Auto) Lymph # (Auto) [place] # (Auto) Eos # (Auto) Baso # (Auto) Abs Immat Gran (auto) Absolute Neuts (auto) Absolute Nucleated RBC Nucleated RBC % (auto) PT INR VBG pH VBG pCO2 VBG pO2 VBG HCO3 VBG O2 Saturation VBG Base Excess Sodium Potassium Chloride Carbon Dioxide Anion Gap BUN Creatinine Estim Creat Clear Calc Estimated GFR POC Glucose 151 H 179 H 167 H Random Glucose Calcium Phosphorus Magnesium Total Bilirubin AST ALT Alkaline Phosphatase Ammonia Total Protein Albumin Vancomycin Trough 06/27/22 14:03 WBC RBC Hgb Hct MCV MCH MCHC RDW Plt Count MPV Immature Gran % (Auto) Neut % (Auto) Lymph % (Auto) [place] % (Auto) Eos % (Auto) Baso % (Auto) Lymph # (Auto) [place] # (Auto) Eos # (Auto) Baso # (Auto) Abs Immat Gran (auto) Absolute Neuts (auto) Absolute Nucleated RBC Nucleated RBC % (auto) PT INR VBG pH VBG pCO2 VBG pO2 VBG HCO3 VBG O2 Saturation VBG Base Excess Sodium Potassium Chloride Carbon Dioxide Anion Gap BUN Creatinine Estim Creat Clear Calc Estimated GFR POC Glucose Random Glucose Calcium Phosphorus Magnesium Total Bilirubin AST ALT Alkaline Phosphatase Ammonia Total Protein Albumin Vancomycin Trough 6.1 L Microbiology Microbiology Results: Microbiology 06/22/22 15:05 Peritoneal Fluid Gram Stain - Final 06/22/22 15:05 Peritoneal Fluid Routine Culture - Final No growth after 2 days 06/22/22 15:05 Peritoneal Fluid Anaerobic Culture - Final NO GROWTH AFTER 5 DAYS 06/24/22 14:38 Blood - Central Line Blood Culture - Preliminary No growth after 48 hours. 06/24/22 14:39 Blood - Central Line Blood Culture - Preliminary No growth after 48 hours. Procedures Date of Service Date of Service: 06/27/22 Assessment & Plan Assessment and plan (1) 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: Status: Acute (2) Hypotension: Status: Acute (3) Acute on chronic kidney failure: Status: Acute (4) MSSA bacteremia: Status: Acute (5) Hyponatremia: Status: Acute Plan Now Resp failre req intubation and w ques related to Xfusion (TACO) and SHOCK on pressors in ICU and diuretics started by ICU - Non-Oliguric DULCE: most c/w HRSyn but now signif risk for furhter DULCE from ischemic ATN; initially was c/w HRS and LgVol Paracentesis possible precipitating HRS good news is incr UOP and SCr satble - Cirrhosis - Recurrent severe ascites requiring recurrent taps - DM - Anemia: s/p xfusion - Intravascular Vol status ?: challenging assessment--certainly 3rd spaced fluid Overall critically ill now and at signif risk for needing POTATO PEELER in next 24-48 hrs REC: Creatinine is better no indications for POTATO PEELER at this time; optimize HDynamics and renal perfusion D/w ICU team track UOP/renal func; avoid Ntoxins; Will follow closely with team Time Spent With Patient Time: Total time managing care of this patient today ____ minutes. Progress Note: Quality Stroke Does the patient have a stroke diagnosis?: No
[2022-06-27 16:05] LABS: Glucose, Whole Blood 172 mg/dL (60-115)
[2022-06-27 18:03] LABS: Glucose, Whole Blood 163 mg/dL (60-115)
[2022-06-27] MEDS: Norepinephrine Bitartrate/D5W 8 MG/250 ML PLAST..BAG 19.05 MG IV (19:22)
[2022-06-27 20:08] LABS: Glucose, Whole Blood 155 mg/dL (60-115)
[2022-06-27 21:04] LABS: Urea, Random Urine 398 mg/dL
[2022-06-27 22:03] LABS: Glucose, Whole Blood 140 mg/dL (60-115)
[2022-06-28] VITALS (39 sets, daily range): BP systolic 102–130; BP diastolic 53–75; PULSE 95–111; RESP 16–22; TEMP 34.8–37.6; O2SAT 92–100; BMI 50.9
[2022-06-28] MEDS: Albuterol Sulfate (0.083%) 2.5 MG/3 ML VIAL.NEB INHALE ×7 (00:19→23:47)
[2022-06-28 00:27] LABS: Glucose, Whole Blood 146 mg/dL (60-115)
[2022-06-28] MEDS: 0.9 % Sodium Chloride Flush 3 ML SYRINGE IVFLUSH ×2 (01:32→07:51)
[2022-06-28 02:17] LABS: Glucose, Whole Blood 133 mg/dL (60-115)
[2022-06-28 04:30] LABS: Glucose, Whole Blood 114 mg/dL (60-115)
[2022-06-28 04:51] LABS: VBG Base Excess 9.3 mmol/L; VBG HCO3 31 mmol/L (22-26); VBG pCO2 34 mmHg; VBG pH 7.57 (7.32-7.43); VBG pO2 56 mmHg
[2022-06-28] MEDS: Octreotide Acetate 100 MCG/ML AMPUL 200 MCG SUBCUT ×3 (05:10→21:20)
[2022-06-28] MEDS: Levothyroxine Sodium 100 MCG/5 ML VIAL 25 MCG IVPUSH (05:10)
[2022-06-28 05:31] LABS: Basophils Percent Auto 0.3 % (0-2); Eosinophils Absolute Auto 0.4 X10*3/uL (0.0-0.4); Eosinophils Percent Auto 3.5 % (0-4); Hematocrit 29.3 % (37.0-47.0); Hemoglobin 9.9 g/dl (12.0-16.0); Imm Gran Pct Auto 0.9 % (0.0-0.4); Lymphocytes Absolute Auto 0.8 X10*3/uL (1.2-4.9); MANUAL DIFF FLAG SCAN; Mean Corpuscular HGB Conc 33.8 g/dl (31.0-35.0); Mean Corpuscular Hemoglobin 33.6 pg (27.0-33.0); Mean Corpuscular Volume 99.3 fL (80.0-98.0); Monocytes Absolute Auto 1.8 X10*3/uL (0.1-1.2); Monocytes Percent Auto 17.5 % (2-11); Neutrophils Absolute Auto 7.4 x10*3/uL (2.0-8.3); Neutrophils Percent Auto 69.8 % (45-73); Red Blood Count 2.95 X10*6/uL (4.20-5.50); Red Cell Distribution Width 17.9 % (11.0-16.0); SCAN SMEAR FLAG 1; White Blood Count 10.5 X10*3/uL (4.8-10.8)
[2022-06-28 05:32] LABS: Platelet Count 56 X10*3/uL (160-400)
[2022-06-28 05:34] LABS: INTERNATIONAL NORM RATIO 1.9 (0.9-1.1); Prothrombin Time 22.6 SEC (10.0-13.1)
[2022-06-28 05:37] LABS: Ammonia 72 umol/L (13-55)
[2022-06-28 05:45] LABS: Creatinine Clr Calc Pharmacy 61.4; Estimated Glomerular Filt Rate 37
[2022-06-28 05:49] LABS: Alanine Aminotransferase < 6 U/L (0-31); Albumin Level 3.4 g/dL (3.5-5.0); Alkaline Phosphatase 44 U/L (39-117); Anion Gap 15 (12-20); Aspartate Amino Transferase 38 U/L (5-31); Bilirubin Total 6.4 mg/dL (0.0-1.0); Blood Urea Nitrogen 65 mg/dL (9-16); Calcium 8.9 mg/dL (8.4-10.2); Carbon Dioxide 31 mmol/L (22-29); Chloride 95 mmol/L (96-108); Estimated Glomerular Filt Rate 37; Glucose Random 125 mg/dL (60-115); Magnesium 1.6 mg/dL (1.6-2.6); Phosphorus 2.6 mg/dL (2.7-4.5); Potassium 3.5 mmol/L (3.3-5.1); Sodium 137 mmol/L (135-145); Total Protein 5.8 g/dL (6.5-8.0)
[2022-06-28 06:03] LABS: Venous Blood Gas Refer to POC result
[2022-06-28 06:08] LABS: SLIDE REVIEW VERIFIED
[2022-06-28 06:14] LABS: Glucose, Whole Blood 129 mg/dL (60-115)
[2022-06-28] MEDS: Norepinephrine Bitartrate/D5W 8 MG/250 ML PLAST..BAG 19.05 MG IV ×2 (06:23→17:47)
[2022-06-28] MEDS: rifAXIMin 550 MG TABLET PO ×2 (07:50→20:03)
[2022-06-28] MEDS: Chlorhexidine Gluc Oral Rinse 15 ML MOUTHWASH BUCCAL ×3 (07:50→20:03)
[2022-06-28] MEDS: Thiamine HCL 100 MG TABLET PO (07:50)
[2022-06-28] MEDS: levoFLOXacin/D5W 250 MG/50 ML PIGGYBACK 50 MG IV (07:51)
[2022-06-28] MEDS: Magnesium Sulfate/H2O 2 GM/50 ML PIGGYBACK IV (07:51)
[2022-06-28] MEDS: Lactulose 20 GM/30 ML SOLUTION PO ×2 (07:51→20:03)
[2022-06-28] MEDS: Potassium Phosphate/NS 15 MMOL/250 ML PLAST..BAG 62.5 MMOL IV (07:51)
[2022-06-28] MEDS: Famotidine/PF 20 MG/2 ML VIAL IVPUSH (07:51)
[2022-06-28 08:02] LABS: Glucose, Whole Blood 129 mg/dL (60-115)
--- NOTE | 2022-06-28 09:21 | PM.CCPN ---
Subjective Subjective Date of Service: 06/28/22 Interval History: 47-year-old female with combined metabolic issues including polycystic ovary and type 2 diabetes who is morbidly obese and has non alcoholic steatohepatitis with end-stage cirrhosis and portal hypertension and after 9 L paracentesis became hypotensive with dropped hemoglobin transfusion transfusion related acute lung injury requiring intubation and brief acute tubular necrosis which seems to be recovering currently with auto diuresis assist 3 days now off of propofol and Versed and she is just now beginning to have some eye opening not significant cognitive function but nonetheless a being moved in the right direction and this is in response to her name being called but her CVP is been coming down it is down now to 8 her respiratory effort is markedly diminished her meld score is now down 25 and continues to improve with creatinine finally down to 1.5 Critical Care Time (minutes): 45 Physical Exam Vital Signs: Vital Signs: Last Vital Signs Temp 99.3 F 06/28/22 08:00 Pulse 106 H 06/28/22 09:00 Resp 18 06/28/22 09:00 BP 107/60 06/28/22 09:00 Pulse Ox 94 06/28/22 09:00 O2 Del Method 06/28/22 09:00 O2 Flow Rate 15 06/24/22 01:17 FiO2 30 06/28/22 09:00 BMI result Body Mass Index 50.9 Early signs of awakening Bedside echo showing preserved LV function and RV function and no new distention of the IVC Abdomen no tenderness no organomegaly Lungs without adventitious sounds no respiratory effort Objective Data Labs 06/28/22 04:40 06/28/22 04:40 Labs: Laboratory Results - last 24 hr 06/25/22 06/27/22 06/27/22 12:19 10:09 12:01 WBC RBC Hgb Hct MCV MCH MCHC RDW Plt Count MPV Immature Gran % (Auto) Neut % (Auto) Lymph % (Auto) [place] % (Auto) Eos % (Auto) Baso % (Auto) Lymph # (Auto) [place] # (Auto) Eos # (Auto) Baso # (Auto) Abs Immat Gran (auto) Absolute Neuts (auto) Absolute Nucleated RBC Nucleated RBC % (auto) Smear Tech's Comments PT INR VBG pH VBG pCO2 VBG pO2 VBG HCO3 VBG O2 Saturation VBG Base Excess Sodium Potassium Chloride Carbon Dioxide Anion Gap BUN Creatinine Estim Creat Clear Calc Estimated GFR POC Glucose 151 H 179 H Random Glucose Calcium Phosphorus Magnesium Total Bilirubin AST ALT Alkaline Phosphatase Ammonia Total Protein Albumin Ur Random Urea 398 Vancomycin Trough 06/27/22 06/27/22 06/27/22 13:47 14:03 16:02 WBC RBC Hgb Hct MCV MCH MCHC RDW Plt Count MPV Immature Gran % (Auto) Neut % (Auto) Lymph % (Auto) [place] % (Auto) Eos % (Auto) Baso % (Auto) Lymph # (Auto) [place] # (Auto) Eos # (Auto) Baso # (Auto) Abs Immat Gran (auto) Absolute Neuts (auto) Absolute Nucleated RBC Nucleated RBC % (auto) Smear Tech's Comments PT INR VBG pH VBG pCO2 VBG pO2 VBG HCO3 VBG O2 Saturation VBG Base Excess Sodium Potassium Chloride Carbon Dioxide Anion Gap BUN Creatinine Estim Creat Clear Calc Estimated GFR POC Glucose 167 H 172 H Random Glucose Calcium Phosphorus Magnesium Total Bilirubin AST ALT Alkaline Phosphatase Ammonia Total Protein Albumin Ur Random Urea Vancomycin Trough 6.1 L 06/27/22 06/27/22 06/27/22 17:56 20:04 22:00 WBC RBC Hgb Hct MCV MCH MCHC RDW Plt Count MPV Immature Gran % (Auto) Neut % (Auto) Lymph % (Auto) [place] % (Auto) Eos % (Auto) Baso % (Auto) Lymph # (Auto) [place] # (Auto) Eos # (Auto) Baso # (Auto) Abs Immat Gran (auto) Absolute Neuts (auto) Absolute Nucleated RBC Nucleated RBC % (auto) Smear Tech's Comments PT INR VBG pH VBG pCO2 VBG pO2 VBG HCO3 VBG O2 Saturation VBG Base Excess Sodium Potassium Chloride Carbon Dioxide Anion Gap BUN Creatinine Estim Creat Clear Calc Estimated GFR POC Glucose 163 H 155 H 140 H Random Glucose Calcium Phosphorus Magnesium Total Bilirubin AST ALT Alkaline Phosphatase Ammonia Total Protein Albumin Ur Random Urea Vancomycin Trough 06/28/22 06/28/22 06/28/22 00:23 02:12 04:26 WBC RBC Hgb Hct MCV MCH MCHC RDW Plt Count MPV Immature Gran % (Auto) Neut % (Auto) Lymph % (Auto) [place] % (Auto) Eos % (Auto) Baso % (Auto) Lymph # (Auto) [place] # (Auto) Eos # (Auto) Baso # (Auto) Abs Immat Gran (auto) Absolute Neuts (auto) Absolute Nucleated RBC Nucleated RBC % (auto) Smear Tech's Comments PT INR VBG pH VBG pCO2 VBG pO2 VBG HCO3 VBG O2 Saturation VBG Base Excess Sodium Potassium Chloride Carbon Dioxide Anion Gap BUN Creatinine Estim Creat Clear Calc Estimated GFR POC Glucose 146 H 133 H 114 Random Glucose Calcium Phosphorus Magnesium Total Bilirubin AST ALT Alkaline Phosphatase Ammonia Total Protein Albumin Ur Random Urea Vancomycin Trough 06/28/22 06/28/22 06/28/22 04:40 04:40 04:40 WBC RBC Hgb Hct MCV MCH MCHC RDW Plt Count MPV Immature Gran % (Auto) Neut % (Auto) Lymph % (Auto) [place] % (Auto) Eos % (Auto) Baso % (Auto) Lymph # (Auto) [place] # (Auto) Eos # (Auto) Baso # (Auto) Abs Immat Gran (auto) Absolute Neuts (auto) Absolute Nucleated RBC Nucleated RBC % (auto) Smear Tech's Comments PT 22.6 H INR 1.9 H VBG pH VBG pCO2 VBG pO2 VBG HCO3 VBG O2 Saturation VBG Base Excess Sodium Potassium Chloride Carbon Dioxide Anion Gap BUN Creatinine 1.50 H Estim Creat Clear Calc 61.4 Estimated GFR 37 POC Glucose Random Glucose Calcium Phosphorus Magnesium Total Bilirubin AST ALT Alkaline Phosphatase Ammonia 72 H Total Protein Albumin Ur Random Urea Vancomycin Trough 06/28/22 06/28/22 06/28/22 04:40 04:40 04:42 WBC 10.5 RBC 2.95 L Hgb 9.9 L Hct 29.3 L MCV 99.3 H MCH 33.6 H MCHC 33.8 RDW 17.9 H Plt Count 56 L MPV 11.0 Immature Gran % (Auto) 0.9 H Neut % (Auto) 69.8 Lymph % (Auto) 8.0 L [place] % (Auto) 17.5 H Eos % (Auto) 3.5 Baso % (Auto) 0.3 Lymph # (Auto) 0.8 L [place] # (Auto) 1.8 H Eos # (Auto) 0.4 Baso # (Auto) 0.0 Abs Immat Gran (auto) 0.10 H Absolute Neuts (auto) 7.4 Absolute Nucleated RBC 0.000 Nucleated RBC % (auto) 0.0 Smear Tech's Comments VERIFIED PT INR VBG pH 7.57 H VBG pCO2 34 VBG pO2 56 VBG HCO3 31 H VBG O2 Saturation 87.0 VBG Base Excess 9.3 Sodium 137 Potassium 3.5 Chloride 95 L Carbon Dioxide 31 H Anion Gap 15 BUN 65 H Creatinine 1.51 H Estim Creat Clear Calc 61.0 Estimated GFR 37 POC Glucose Random Glucose 125 H Calcium 8.9 Phosphorus 2.6 L Magnesium 1.6 Total Bilirubin 6.4 H AST 38 H ALT < 6 Alkaline Phosphatase 44 Ammonia Total Protein 5.8 L Albumin 3.4 L Ur Random Urea Vancomycin Trough 06/28/22 06/28/22 06:11 07:57 WBC RBC Hgb Hct MCV MCH MCHC RDW Plt Count MPV Immature Gran % (Auto) Neut % (Auto) Lymph % (Auto) [place] % (Auto) Eos % (Auto) Baso % (Auto) Lymph # (Auto) [place] # (Auto) Eos # (Auto) Baso # (Auto) Abs Immat Gran (auto) Absolute Neuts (auto) Absolute Nucleated RBC Nucleated RBC % (auto) Smear Tech's Comments PT INR VBG pH VBG pCO2 VBG pO2 VBG HCO3 VBG O2 Saturation VBG Base Excess Sodium Potassium Chloride Carbon Dioxide Anion Gap BUN Creatinine Estim Creat Clear Calc Estimated GFR POC Glucose 129 H 129 H Random Glucose Calcium Phosphorus Magnesium Total Bilirubin AST ALT Alkaline Phosphatase Ammonia Total Protein Albumin Ur Random Urea Vancomycin Trough Microbiology Microbiology Results: Microbiology 06/22/22 15:05 Peritoneal Fluid Gram Stain - Final 06/22/22 15:05 Peritoneal Fluid Routine Culture - Final No growth after 2 days 06/22/22 15:05 Peritoneal Fluid Anaerobic Culture - Final NO GROWTH AFTER 5 DAYS 06/24/22 14:38 Blood - Central Line Blood Culture - Preliminary No growth after 48 hours. 06/24/22 14:39 Blood - Central Line Blood Culture - Preliminary No growth after 48 hours. 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: Status: Acute (11) 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: Status: Acute (12) Hyponatremia: Status: Acute (13) Positive blood culture: Status: Acute (14) Coagulopathy: Status: Acute (15) Thrombocytopenia: Status: Acute (16) Pneumonia: Status: Acute (17) Ascites: Status: Acute (18) Acute hyponatremia: Status: Acute (19) Numbness and tingling in both hands: Status: Acute (20) Non-toxic multinodular goiter: Status: Acute (21) Diabetic nephropathy associated with type 2 diabetes mellitus: Status: Acute (22) Elevated TSH: Status: Acute (23) Goiter: Status: Acute (24) Acromegaly: Status: Acute (25) Morbid obesity: Status: Acute (26) PCOS (polycystic ovarian syndrome): Status: Acute (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
[2022-06-28 10:01] LABS: Glucose, Whole Blood 154 mg/dL (60-115)
[2022-06-28 12:36] LABS: Glucose, Whole Blood 152 mg/dL (60-115)
[2022-06-28 14:15] LABS: Glucose, Whole Blood 145 mg/dL (60-115)
[2022-06-28 16:12] LABS: Glucose, Whole Blood 153 mg/dL (60-115)
[2022-06-28 18:09] LABS: Glucose, Whole Blood 143 mg/dL (60-115)
--- NOTE | 2022-06-28 18:36 | PC.NURSE ---
Pt continues to be off sedation, intubated on AC vent settings of 16/350/8/30%, tolerating and satting appropriately. Pt coughing intermittently, small to moderate amounts of creamish inline secretions, suctioned PRN; moderate thick clear oral secretions, PO care provided PRN. Pt otherwise continue to be on Levophed gtt, unchanged, MAP maintained >65. On tele: SR/ ST in the 110s, with frequent PVCs, occasional trigeminy noted as well. Pt's Insulin gtt continues to be paused per protocol, POC between 120-150s. OGtube to TF t goal of 20cc/hr and tolerating well with no residuals, FWF given per order. Pt has the quijano in place, patent and draining clear dark yellow urine. Pt otherwise in no acute distress. Pt bathed this shift; repositioned every 2 hrs and PRN, prevalon and wedges utilized. Pt's family visiting at bedside, updated and all questions answered. Safety maintained throughout. Will continue to monitor.
[2022-06-28 20:16] LABS: Glucose, Whole Blood 142 mg/dL (60-115)
[2022-06-28 20:59] LABS: Glucose, Whole Blood 152 mg/dL (60-115)
--- NOTE | 2022-06-28 21:32 | P.PNNP_ITS ---
Subjective Subjective Date of Service: 06/28/22 Interval history: 47-year-old female in the ICU Vent dependant creatinine finally down to 1.5 Physical Exam Vital Signs: Vital Signs: Last Vital Signs Temp 99.5 F 06/28/22 21:00 Pulse 102 H 06/28/22 21:00 Resp 18 06/28/22 21:00 BP 117/55 L 06/28/22 21:00 Pulse Ox 94 06/28/22 21:00 O2 Del Method 06/28/22 21:00 O2 Flow Rate 15 06/24/22 01:17 FiO2 30 06/28/22 21:00 BMI result Body Mass Index 50.9 Early signs of awakening Bedside echo showing preserved LV function and RV function and no new distention of the IVC Abdomen no tenderness no organomegaly Lungs without adventitious sounds no respiratory effort Objective Data Labs 06/28/22 04:40 06/28/22 04:40 Labs: Laboratory Results - last 24 hr 06/27/22 06/28/22 06/28/22 22:00 00:23 02:12 WBC RBC Hgb Hct MCV MCH MCHC RDW Plt Count MPV Immature Gran % (Auto) Neut % (Auto) Lymph % (Auto) [place] % (Auto) Eos % (Auto) Baso % (Auto) Lymph # (Auto) [place] # (Auto) Eos # (Auto) Baso # (Auto) Abs Immat Gran (auto) Absolute Neuts (auto) Absolute Nucleated RBC Nucleated RBC % (auto) Smear Tech's Comments PT INR VBG pH VBG pCO2 VBG pO2 VBG HCO3 VBG O2 Saturation VBG Base Excess Sodium Potassium Chloride Carbon Dioxide Anion Gap BUN Creatinine Estim Creat Clear Calc Estimated GFR POC Glucose 140 H 146 H 133 H Random Glucose Calcium Phosphorus Magnesium Total Bilirubin AST ALT Alkaline Phosphatase Ammonia Total Protein Albumin 06/28/22 06/28/22 06/28/22 04:26 04:40 04:40 WBC RBC Hgb Hct MCV MCH MCHC RDW Plt Count MPV Immature Gran % (Auto) Neut % (Auto) Lymph % (Auto) [place] % (Auto) Eos % (Auto) Baso % (Auto) Lymph # (Auto) [place] # (Auto) Eos # (Auto) Baso # (Auto) Abs Immat Gran (auto) Absolute Neuts (auto) Absolute Nucleated RBC Nucleated RBC % (auto) Smear Tech's Comments PT 22.6 H INR 1.9 H VBG pH VBG pCO2 VBG pO2 VBG HCO3 VBG O2 Saturation VBG Base Excess Sodium Potassium Chloride Carbon Dioxide Anion Gap BUN Creatinine 1.50 H Estim Creat Clear Calc 61.4 Estimated GFR 37 POC Glucose 114 Random Glucose Calcium Phosphorus Magnesium Total Bilirubin AST ALT Alkaline Phosphatase Ammonia Total Protein Albumin 06/28/22 06/28/22 06/28/22 04:40 04:40 04:40 WBC 10.5 RBC 2.95 L Hgb 9.9 L Hct 29.3 L MCV 99.3 H MCH 33.6 H MCHC 33.8 RDW 17.9 H Plt Count 56 L MPV 11.0 Immature Gran % (Auto) 0.9 H Neut % (Auto) 69.8 Lymph % (Auto) 8.0 L [place] % (Auto) 17.5 H Eos % (Auto) 3.5 Baso % (Auto) 0.3 Lymph # (Auto) 0.8 L [place] # (Auto) 1.8 H Eos # (Auto) 0.4 Baso # (Auto) 0.0 Abs Immat Gran (auto) 0.10 H Absolute Neuts (auto) 7.4 Absolute Nucleated RBC 0.000 Nucleated RBC % (auto) 0.0 Smear Tech's Comments VERIFIED PT INR VBG pH VBG pCO2 VBG pO2 VBG HCO3 VBG O2 Saturation VBG Base Excess Sodium 137 Potassium 3.5 Chloride 95 L Carbon Dioxide 31 H Anion Gap 15 BUN 65 H Creatinine 1.51 H Estim Creat Clear Calc 61.0 Estimated GFR 37 POC Glucose Random Glucose 125 H Calcium 8.9 Phosphorus 2.6 L Magnesium 1.6 Total Bilirubin 6.4 H AST 38 H ALT < 6 Alkaline Phosphatase 44 Ammonia 72 H Total Protein 5.8 L Albumin 3.4 L 06/28/22 06/28/22 06/28/22 04:42 06:11 07:57 WBC RBC Hgb Hct MCV MCH MCHC RDW Plt Count MPV Immature Gran % (Auto) Neut % (Auto) Lymph % (Auto) [place] % (Auto) Eos % (Auto) Baso % (Auto) Lymph # (Auto) [place] # (Auto) Eos # (Auto) Baso # (Auto) Abs Immat Gran (auto) Absolute Neuts (auto) Absolute Nucleated RBC Nucleated RBC % (auto) Smear Tech's Comments PT INR VBG pH 7.57 H VBG pCO2 34 VBG pO2 56 VBG HCO3 31 H VBG O2 Saturation 87.0 VBG Base Excess 9.3 Sodium Potassium Chloride Carbon Dioxide Anion Gap BUN Creatinine Estim Creat Clear Calc Estimated GFR POC Glucose 129 H 129 H Random Glucose Calcium Phosphorus Magnesium Total Bilirubin AST ALT Alkaline Phosphatase Ammonia Total Protein Albumin 06/28/22 06/28/22 06/28/22 09:56 12:32 14:10 WBC RBC Hgb Hct MCV MCH MCHC RDW Plt Count MPV Immature Gran % (Auto) Neut % (Auto) Lymph % (Auto) [place] % (Auto) Eos % (Auto) Baso % (Auto) Lymph # (Auto) [place] # (Auto) Eos # (Auto) Baso # (Auto) Abs Immat Gran (auto) Absolute Neuts (auto) Absolute Nucleated RBC Nucleated RBC % (auto) Smear Tech's Comments PT INR VBG pH VBG pCO2 VBG pO2 VBG HCO3 VBG O2 Saturation VBG Base Excess Sodium Potassium Chloride Carbon Dioxide Anion Gap BUN Creatinine Estim Creat Clear Calc Estimated GFR POC Glucose 154 H 152 H 145 H Random Glucose Calcium Phosphorus Magnesium Total Bilirubin AST ALT Alkaline Phosphatase Ammonia Total Protein Albumin 06/28/22 06/28/22 06/28/22 16:08 17:59 20:12 WBC RBC Hgb Hct MCV MCH MCHC RDW Plt Count MPV Immature Gran % (Auto) Neut % (Auto) Lymph % (Auto) [place] % (Auto) Eos % (Auto) Baso % (Auto) Lymph # (Auto) [place] # (Auto) Eos # (Auto) Baso # (Auto) Abs Immat Gran (auto) Absolute Neuts (auto) Absolute Nucleated RBC Nucleated RBC % (auto) Smear Tech's Comments PT INR VBG pH VBG pCO2 VBG pO2 VBG HCO3 VBG O2 Saturation VBG Base Excess Sodium Potassium Chloride Carbon Dioxide Anion Gap BUN Creatinine Estim Creat Clear Calc Estimated GFR POC Glucose 153 H 143 H 142 H Random Glucose Calcium Phosphorus Magnesium Total Bilirubin AST ALT Alkaline Phosphatase Ammonia Total Protein Albumin 06/28/22 20:56 WBC RBC Hgb Hct MCV MCH MCHC RDW Plt Count MPV Immature Gran % (Auto) Neut % (Auto) Lymph % (Auto) [place] % (Auto) Eos % (Auto) Baso % (Auto) Lymph # (Auto) [place] # (Auto) Eos # (Auto) Baso # (Auto) Abs Immat Gran (auto) Absolute Neuts (auto) Absolute Nucleated RBC Nucleated RBC % (auto) Smear Tech's Comments PT INR VBG pH VBG pCO2 VBG pO2 VBG HCO3 VBG O2 Saturation VBG Base Excess Sodium Potassium Chloride Carbon Dioxide Anion Gap BUN Creatinine Estim Creat Clear Calc Estimated GFR POC Glucose 152 H Random Glucose Calcium Phosphorus Magnesium Total Bilirubin AST ALT Alkaline Phosphatase Ammonia Total Protein Albumin Microbiology Microbiology Results: Microbiology 06/22/22 15:05 Peritoneal Fluid Gram Stain - Final 06/22/22 15:05 Peritoneal Fluid Routine Culture - Final No growth after 2 days 06/22/22 15:05 Peritoneal Fluid Anaerobic Culture - Final NO GROWTH AFTER 5 DAYS 06/24/22 14:38 Blood - Central Line Blood Culture - Preliminary No growth after 48 hours. 06/24/22 14:39 Blood - Central Line Blood Culture - Preliminary No growth after 48 hours. 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: Status: Acute (2) Hypotension: Status: Acute (3) Acute on chronic kidney failure: Status: Acute (4) MSSA bacteremia: Status: Acute (5) Hyponatremia: Status: Acute Plan Now Resp failre req intubation and w ques related to Xfusion (TACO) and SHOCK on pressors in ICU and diuretics started by ICU - Non-Oliguric DULCE: most c/w HRSyn but now signif risk for furhter DULCE from ischemic ATN; initially was c/w HRS and LgVol Paracentesis possible precipitating HRS good news is incr UOP and SCr satble - Cirrhosis - Recurrent severe ascites requiring recurrent taps - DM - Anemia: s/p xfusion - Intravascular Vol status ?: challenging assessment--certainly 3rd spaced fluid Overall critically ill now and at signif risk for needing HAIRSPRING CUTTER in next 24-48 hrs REC: Creatinine is better Good U Output with better renal perfusion D/w ICU team track UOP/renal func; avoid Ntoxins; Will follow closely with team Time Spent With Patient Time: Total time managing care of this patient today ____ minutes. Progress Note: Quality Stroke Does the patient have a stroke diagnosis?: No
[2022-06-28 22:25] LABS: Glucose, Whole Blood 167 mg/dL (60-115)
[2022-06-29] VITALS (37 sets, daily range): BP systolic 103–135; BP diastolic 49–75; PULSE 79–112; RESP 16–111; TEMP 34.6–38.1; O2SAT 91–98; BMI 50.1
[2022-06-29 00:01] LABS: Glucose, Whole Blood 159 mg/dL (60-115)
[2022-06-29 03:46] LABS: Glucose, Whole Blood 142 mg/dL (60-115)
[2022-06-29 04:47] LABS: VBG Base Excess 9.1 mmol/L; VBG HCO3 31 mmol/L (22-26); VBG pCO2 34 mmHg; VBG pH 7.57 (7.32-7.43); VBG pO2 52 mmHg
[2022-06-29] MEDS: Albuterol Sulfate (0.083%) 2.5 MG/3 ML VIAL.NEB INHALE ×6 (04:57→23:19)
[2022-06-29 05:14] LABS: Basophils Absolute Auto 0.1 X10*3/uL (0.0-0.2); Basophils Percent Auto 0.6 % (0-2); Eosinophils Absolute Auto 0.4 X10*3/uL (0.0-0.4); Eosinophils Percent Auto 3.6 % (0-4); Hematocrit 30.4 % (37.0-47.0); Hemoglobin 9.8 g/dl (12.0-16.0); Imm Gran Abs Auto 0.13 X10*3/uL (0.00-0.03); Imm Gran Pct Auto 1.2 % (0.0-0.4); Lymphocytes Absolute Auto 0.7 X10*3/uL (1.2-4.9); Lymphocytes Percent Auto 6.6 % (20-40); MANUAL DIFF FLAG SCAN; Mean Corpuscular HGB Conc 32.2 g/dl (31.0-35.0); Mean Corpuscular Hemoglobin 32.5 pg (27.0-33.0); Mean Corpuscular Volume 100.7 fL (80.0-98.0); Mean Platelet Volume 10.7 fL (9.4-12.3); Monocytes Absolute Auto 1.7 X10*3/uL (0.1-1.2); Monocytes Percent Auto 15.6 % (2-11); Neutrophils Percent Auto 72.4 % (45-73); Red Blood Count 3.02 X10*6/uL (4.20-5.50); Red Cell Distribution Width 18.5 % (11.0-16.0); SCAN SMEAR FLAG 1; White Blood Count 11.1 X10*3/uL (4.8-10.8)
[2022-06-29 05:16] LABS: Platelet Count 56 X10*3/uL (160-400)
[2022-06-29 05:20] LABS: INTERNATIONAL NORM RATIO 1.9 (0.9-1.1); Prothrombin Time 22.8 SEC (10.0-13.1)
[2022-06-29 05:30] LABS: Ammonia 65 umol/L (13-55)
[2022-06-29 05:33] LABS: SLIDE REVIEW VERIFIED
[2022-06-29 05:37] LABS: Alanine Aminotransferase 7 U/L (0-31); Albumin Level 3.2 g/dL (3.5-5.0); Alkaline Phosphatase 44 U/L (39-117); Anion Gap 13 (12-20); Aspartate Amino Transferase 41 U/L (5-31); Bilirubin Total 7.3 mg/dL (0.0-1.0); Blood Urea Nitrogen 60 mg/dL (9-16); Calcium 8.7 mg/dL (8.4-10.2); Carbon Dioxide 32 mmol/L (22-29); Chloride 98 mmol/L (96-108); Creatinine Clr Calc Pharmacy 67.9; Creatinine Clr Calc Pharmacy 68.9; Estimated Glomerular Filt Rate 42; Estimated Glomerular Filt Rate 43; Glucose Random 150 mg/dL (60-115); Magnesium 1.7 mg/dL (1.6-2.6); Phosphorus 2.9 mg/dL (2.7-4.5); Potassium 3.6 mmol/L (3.3-5.1); Sodium 139 mmol/L (135-145); Total Protein 5.8 g/dL (6.5-8.0)
[2022-06-29] MEDS: Levothyroxine Sodium 100 MCG/5 ML VIAL 25 MCG IVPUSH (05:45)
[2022-06-29] MEDS: Octreotide Acetate 100 MCG/ML AMPUL 200 MCG SUBCUT ×2 (05:45→20:42)
[2022-06-29] MEDS: Norepinephrine Bitartrate/D5W 8 MG/250 ML PLAST..BAG 19.05 MG IV ×2 (05:46→19:29)
[2022-06-29 06:10] LABS: Glucose, Whole Blood 149 mg/dL (60-115)
[2022-06-29 06:27] LABS: Venous Blood Gas Refer to POC result
[2022-06-29] MEDS: levoFLOXacin/D5W 250 MG/50 ML PIGGYBACK 50 MG IV (07:34)
[2022-06-29] MEDS: 0.9 % Sodium Chloride Flush 3 ML SYRINGE IVFLUSH ×4 (07:34→20:08)
[2022-06-29] MEDS: Famotidine/PF 20 MG/2 ML VIAL IVPUSH (07:40)
[2022-06-29] MEDS: Lactulose 20 GM/30 ML SOLUTION PO ×2 (07:40→20:08)
[2022-06-29] MEDS: Chlorhexidine Gluc Oral Rinse 15 ML MOUTHWASH BUCCAL ×3 (07:40→20:08)
[2022-06-29] MEDS: Thiamine HCL 100 MG TABLET PO (07:40)
[2022-06-29] MEDS: rifAXIMin 550 MG TABLET PO ×2 (07:40→20:08)
[2022-06-29 08:03] LABS: Glucose, Whole Blood 163 mg/dL (60-115)
[2022-06-29] MEDS: Insulin Regular/NS 100 UNIT/100 ML PLAST..BAG IVCONT (08:45)
--- NOTE | 2022-06-29 09:45 | PM.CCPN ---
Subjective Subjective Date of Service: 06/29/22 Interval History: A 47-year-old morbidly obese female who is a type 2 diabetic with polycystic ovary syndrome and and she has non alcoholic steatohepatitis with end-stage cirrhosis manifested by portal hypertension and hepatic failure with coagulopathy but no active bleeding and she had a paracentesis of 9 L with inadequate albumin replacement became hypotensive with a drop in hemoglobin leaving her transfused following which she developed transfusion related acute lung injury came down with acute hypoxemic respiratory failure requiring intubation and few also needed central line placement because she was beginning to the evolved and acute tubular necrosis which we managed to just had off with aggressive use of vasopressin and then followed by Levophdenzel and she repaired very quickly and began a a recovery diuretic affect she has had a very prolonged unresponsiveness from the combination of propofol and and Versed obviously because of her hepatic failure but she it little by little beginning to wake up specifically response to name being called mike yearggeorgina it has been gradual but I have a good sense of her recovery of cognitive function and once that happens we will start a PSV weaning trial of the ventilator right now she barely has 6-7 L minute ventilatory requirement low FiO2 of about 30-35% with bedside echo his usual demonstrating preserved LV function Critical Care Time (minutes): 35 Physical Exam Vital Signs: Vital Signs: Last Vital Signs Temp 99.3 F 06/29/22 09:00 Pulse 102 H 06/29/22 09:00 Resp 17 06/29/22 09:00 BP 119/61 06/29/22 09:00 Pulse Ox 93 06/29/22 09:00 O2 Del Method 06/29/22 09:00 O2 Flow Rate 15 06/24/22 01:17 FiO2 30 06/29/22 09:00 BMI result Body Mass Index 50.1 She still is on low-dose Levophed for pressure of 122/63 in a mean of 77 with oxygen saturation 94% heart rate 100 in normal sinus rhythm with occasional PVCs Moves all 4 extremities and gradually is waking up so neurologically I believe she has intact Bedside echo with class 1 LV function Lungs with diminished breath sounds but no adventitious sounds Abdomen distended from ascites no organomegaly Skin is intact In addition she had elevated ammonia so probably by definition a degree of cerebral edema which also delayed cognitive function but she is on a combination of lactulose and Xifaxan and that is much improved Objective Data Labs 06/29/22 04:36 06/29/22 04:36 Labs: Laboratory Results - last 24 hr 06/28/22 06/28/22 06/28/22 09:56 12:32 14:10 WBC RBC Hgb Hct MCV MCH MCHC RDW Plt Count MPV Immature Gran % (Auto) Neut % (Auto) Lymph % (Auto) [place] % (Auto) Eos % (Auto) Baso % (Auto) Lymph # (Auto) [place] # (Auto) Eos # (Auto) Baso # (Auto) Abs Immat Gran (auto) Absolute Neuts (auto) Absolute Nucleated RBC Nucleated RBC % (auto) Smear Tech's Comments PT INR VBG pH VBG pCO2 VBG pO2 VBG HCO3 VBG O2 Saturation VBG Base Excess Sodium Potassium Chloride Carbon Dioxide Anion Gap BUN Creatinine Estim Creat Clear Calc Estimated GFR POC Glucose 154 H 152 H 145 H Random Glucose Calcium Phosphorus Magnesium Total Bilirubin AST ALT Alkaline Phosphatase Ammonia Total Protein Albumin 06/28/22 06/28/22 06/28/22 16:08 17:59 20:12 WBC RBC Hgb Hct MCV MCH MCHC RDW Plt Count MPV Immature Gran % (Auto) Neut % (Auto) Lymph % (Auto) [place] % (Auto) Eos % (Auto) Baso % (Auto) Lymph # (Auto) [place] # (Auto) Eos # (Auto) Baso # (Auto) Abs Immat Gran (auto) Absolute Neuts (auto) Absolute Nucleated RBC Nucleated RBC % (auto) Smear Tech's Comments PT INR VBG pH VBG pCO2 VBG pO2 VBG HCO3 VBG O2 Saturation VBG Base Excess Sodium Potassium Chloride Carbon Dioxide Anion Gap BUN Creatinine Estim Creat Clear Calc Estimated GFR POC Glucose 153 H 143 H 142 H Random Glucose Calcium Phosphorus Magnesium Total Bilirubin AST ALT Alkaline Phosphatase Ammonia Total Protein Albumin 06/28/22 06/28/22 06/28/22 20:56 22:21 23:58 WBC RBC Hgb Hct MCV MCH MCHC RDW Plt Count MPV Immature Gran % (Auto) Neut % (Auto) Lymph % (Auto) [place] % (Auto) Eos % (Auto) Baso % (Auto) Lymph # (Auto) [place] # (Auto) Eos # (Auto) Baso # (Auto) Abs Immat Gran (auto) Absolute Neuts (auto) Absolute Nucleated RBC Nucleated RBC % (auto) Smear Tech's Comments PT INR VBG pH VBG pCO2 VBG pO2 VBG HCO3 VBG O2 Saturation VBG Base Excess Sodium Potassium Chloride Carbon Dioxide Anion Gap BUN Creatinine Estim Creat Clear Calc Estimated GFR POC Glucose 152 H 167 H 159 H Random Glucose Calcium Phosphorus Magnesium Total Bilirubin AST ALT Alkaline Phosphatase Ammonia Total Protein Albumin 06/29/22 06/29/22 06/29/22 03:41 04:36 04:36 WBC 11.1 H RBC 3.02 L Hgb 9.8 L Hct 30.4 L MCV 100.7 H MCH 32.5 MCHC 32.2 RDW 18.5 H Plt Count 56 L MPV 10.7 Immature Gran % (Auto) 1.2 H Neut % (Auto) 72.4 Lymph % (Auto) 6.6 L [place] % (Auto) 15.6 H Eos % (Auto) 3.6 Baso % (Auto) 0.6 Lymph # (Auto) 0.7 L [place] # (Auto) 1.7 H Eos # (Auto) 0.4 Baso # (Auto) 0.1 Abs Immat Gran (auto) 0.13 H Absolute Neuts (auto) 8.0 Absolute Nucleated RBC 0.000 Nucleated RBC % (auto) 0.0 Smear Tech's Comments VERIFIED PT INR VBG pH VBG pCO2 VBG pO2 VBG HCO3 VBG O2 Saturation VBG Base Excess Sodium Potassium Chloride Carbon Dioxide Anion Gap BUN Creatinine 1.33 Estim Creat Clear Calc 68.9 Estimated GFR 43 POC Glucose 142 H Random Glucose Calcium Phosphorus Magnesium Total Bilirubin AST ALT Alkaline Phosphatase Ammonia Total Protein Albumin 06/29/22 06/29/22 06/29/22 04:36 04:36 04:36 WBC RBC Hgb Hct MCV MCH MCHC RDW Plt Count MPV Immature Gran % (Auto) Neut % (Auto) Lymph % (Auto) [place] % (Auto) Eos % (Auto) Baso % (Auto) Lymph # (Auto) [place] # (Auto) Eos # (Auto) Baso # (Auto) Abs Immat Gran (auto) Absolute Neuts (auto) Absolute Nucleated RBC Nucleated RBC % (auto) Smear Tech's Comments PT 22.8 H INR 1.9 H VBG pH VBG pCO2 VBG pO2 VBG HCO3 VBG O2 Saturation VBG Base Excess Sodium 139 Potassium 3.6 Chloride 98 Carbon Dioxide 32 H Anion Gap 13 BUN 60 H Creatinine 1.35 Estim Creat Clear Calc 67.9 Estimated GFR 42 POC Glucose Random Glucose 150 H Calcium 8.7 Phosphorus 2.9 Magnesium 1.7 Total Bilirubin 7.3 H AST 41 H ALT 7 Alkaline Phosphatase 44 Ammonia 65 H Total Protein 5.8 L Albumin 3.2 L 06/29/22 06/29/22 06/29/22 04:38 06:05 07:59 WBC RBC Hgb Hct MCV MCH MCHC RDW Plt Count MPV Immature Gran % (Auto) Neut % (Auto) Lymph % (Auto) [place] % (Auto) Eos % (Auto) Baso % (Auto) Lymph # (Auto) [place] # (Auto) Eos # (Auto) Baso # (Auto) Abs Immat Gran (auto) Absolute Neuts (auto) Absolute Nucleated RBC Nucleated RBC % (auto) Smear Tech's Comments PT INR VBG pH 7.57 H VBG pCO2 34 VBG pO2 52 VBG HCO3 31 H VBG O2 Saturation 84.0 VBG Base Excess 9.1 Sodium Potassium Chloride Carbon Dioxide Anion Gap BUN Creatinine Estim Creat Clear Calc Estimated GFR POC Glucose 149 H 163 H Random Glucose Calcium Phosphorus Magnesium Total Bilirubin AST ALT Alkaline Phosphatase Ammonia Total Protein Albumin Microbiology Microbiology Results: Microbiology 06/22/22 15:05 Peritoneal Fluid Gram Stain - Final 06/22/22 15:05 Peritoneal Fluid Routine Culture - Final No growth after 2 days 06/22/22 15:05 Peritoneal Fluid Anaerobic Culture - Final NO GROWTH AFTER 5 DAYS 06/24/22 14:38 Blood - Central Line Blood Culture - Preliminary No growth after 48 hours. 06/24/22 14:39 Blood - Central Line Blood Culture - Preliminary No growth after 48 hours. 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: Status: Acute (11) 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: Status: Acute (12) Hyponatremia: Status: Acute (13) Positive blood culture: Status: Acute (14) Coagulopathy: Status: Acute (15) Thrombocytopenia: Status: Acute (16) Pneumonia: Status: Acute (17) Ascites: Status: Acute (18) Acute hyponatremia: Status: Acute (19) Numbness and tingling in both hands: Status: Acute (20) Non-toxic multinodular goiter: Status: Acute (21) Diabetic nephropathy associated with type 2 diabetes mellitus: Status: Acute (22) Elevated TSH: Status: Acute (23) Goiter: Status: Acute (24) Acromegaly: Status: Acute (25) Morbid obesity: Status: Acute (26) PCOS (polycystic ovarian syndrome): Status: Acute (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 Sully Soni who was a repairer wood furniture who certainly is willing to accept her and quite possibly as an outpatient but it will depend on the meld score and how she responds to the updated numbers on Thursday Quality Stroke Does the patient have a stroke diagnosis?: No VTE Prior VTE?: No VTE Risk Level:: Medical - moderate - high VTE Device Contraindication: N/A - Device Ordered VTE Drug Contraindication: Treatment Not Indicated
[2022-06-29 10:07] LABS: Glucose, Whole Blood 154 mg/dL (60-115)
--- NOTE | 2022-06-29 11:13 | MHC.CM.PN ---
Patient remains intubated/vented in ICU. Dr Garibay is still looking into transferring patient to [facility]. Will re-eval on Thursday. Continue to monitor for d/c needs.
[2022-06-29 12:12] LABS: Glucose, Whole Blood 149 mg/dL (60-115)
--- NOTE | 2022-06-29 13:15 | PM.PNNEP ---
Subjective Subjective Date of Service: 06/29/22 Interval history: On the vennt Non oliguric Physical Exam Vital Signs: Vital Signs: Last Vital Signs Temp 98.6 F 06/29/22 12:00 Pulse 99 06/29/22 13:00 Resp 16 06/29/22 13:00 BP 103/53 L 06/29/22 13:00 Pulse Ox 93 06/29/22 13:00 O2 Del Method 06/29/22 13:00 O2 Flow Rate 15 06/24/22 01:17 FiO2 30 06/29/22 13:00 BMI result Body Mass Index 50.1 She still is on low-dose Levophed for pressure of 122/63 in a mean of 77 with oxygen saturation 94% heart rate 100 in normal sinus rhythm with occasional PVCs Moves all 4 extremities and gradually is waking up so neurologically I believe she has intact Bedside echo with class 1 LV function Lungs with diminished breath sounds but no adventitious sounds Abdomen distended from ascites no organomegaly Skin is intact In addition she had elevated ammonia so probably by definition a degree of cerebral edema which also delayed cognitive function but she is on a combination of lactulose and Xifaxan and that is much improved Objective Data Labs 06/29/22 04:36 06/29/22 04:36 Labs: Laboratory Results - last 24 hr 06/28/22 06/28/22 06/28/22 12:32 14:10 16:08 WBC RBC Hgb Hct MCV MCH MCHC RDW Plt Count MPV Immature Gran % (Auto) Neut % (Auto) Lymph % (Auto) [place] % (Auto) Eos % (Auto) Baso % (Auto) Lymph # (Auto) [place] # (Auto) Eos # (Auto) Baso # (Auto) Abs Immat Gran (auto) Absolute Neuts (auto) Absolute Nucleated RBC Nucleated RBC % (auto) Smear Tech's Comments PT INR VBG pH VBG pCO2 VBG pO2 VBG HCO3 VBG O2 Saturation VBG Base Excess Sodium Potassium Chloride Carbon Dioxide Anion Gap BUN Creatinine Estim Creat Clear Calc Estimated GFR POC Glucose 152 H 145 H 153 H Random Glucose Calcium Phosphorus Magnesium Total Bilirubin AST ALT Alkaline Phosphatase Ammonia Total Protein Albumin 06/28/22 06/28/22 06/28/22 17:59 20:12 20:56 WBC RBC Hgb Hct MCV MCH MCHC RDW Plt Count MPV Immature Gran % (Auto) Neut % (Auto) Lymph % (Auto) [place] % (Auto) Eos % (Auto) Baso % (Auto) Lymph # (Auto) [place] # (Auto) Eos # (Auto) Baso # (Auto) Abs Immat Gran (auto) Absolute Neuts (auto) Absolute Nucleated RBC Nucleated RBC % (auto) Smear Tech's Comments PT INR VBG pH VBG pCO2 VBG pO2 VBG HCO3 VBG O2 Saturation VBG Base Excess Sodium Potassium Chloride Carbon Dioxide Anion Gap BUN Creatinine Estim Creat Clear Calc Estimated GFR POC Glucose 143 H 142 H 152 H Random Glucose Calcium Phosphorus Magnesium Total Bilirubin AST ALT Alkaline Phosphatase Ammonia Total Protein Albumin 06/28/22 06/28/22 06/29/22 22:21 23:58 03:41 WBC RBC Hgb Hct MCV MCH MCHC RDW Plt Count MPV Immature Gran % (Auto) Neut % (Auto) Lymph % (Auto) [place] % (Auto) Eos % (Auto) Baso % (Auto) Lymph # (Auto) [place] # (Auto) Eos # (Auto) Baso # (Auto) Abs Immat Gran (auto) Absolute Neuts (auto) Absolute Nucleated RBC Nucleated RBC % (auto) Smear Tech's Comments PT INR VBG pH VBG pCO2 VBG pO2 VBG HCO3 VBG O2 Saturation VBG Base Excess Sodium Potassium Chloride Carbon Dioxide Anion Gap BUN Creatinine Estim Creat Clear Calc Estimated GFR POC Glucose 167 H 159 H 142 H Random Glucose Calcium Phosphorus Magnesium Total Bilirubin AST ALT Alkaline Phosphatase Ammonia Total Protein Albumin 06/29/22 06/29/22 06/29/22 04:36 04:36 04:36 WBC 11.1 H RBC 3.02 L Hgb 9.8 L Hct 30.4 L MCV 100.7 H MCH 32.5 MCHC 32.2 RDW 18.5 H Plt Count 56 L MPV 10.7 Immature Gran % (Auto) 1.2 H Neut % (Auto) 72.4 Lymph % (Auto) 6.6 L [place] % (Auto) 15.6 H Eos % (Auto) 3.6 Baso % (Auto) 0.6 Lymph # (Auto) 0.7 L [place] # (Auto) 1.7 H Eos # (Auto) 0.4 Baso # (Auto) 0.1 Abs Immat Gran (auto) 0.13 H Absolute Neuts (auto) 8.0 Absolute Nucleated RBC 0.000 Nucleated RBC % (auto) 0.0 Smear Tech's Comments VERIFIED PT 22.8 H INR 1.9 H VBG pH VBG pCO2 VBG pO2 VBG HCO3 VBG O2 Saturation VBG Base Excess Sodium Potassium Chloride Carbon Dioxide Anion Gap BUN Creatinine 1.33 Estim Creat Clear Calc 68.9 Estimated GFR 43 POC Glucose Random Glucose Calcium Phosphorus Magnesium Total Bilirubin AST ALT Alkaline Phosphatase Ammonia Total Protein Albumin 06/29/22 06/29/22 06/29/22 04:36 04:36 04:38 WBC RBC Hgb Hct MCV MCH MCHC RDW Plt Count MPV Immature Gran % (Auto) Neut % (Auto) Lymph % (Auto) [place] % (Auto) Eos % (Auto) Baso % (Auto) Lymph # (Auto) [place] # (Auto) Eos # (Auto) Baso # (Auto) Abs Immat Gran (auto) Absolute Neuts (auto) Absolute Nucleated RBC Nucleated RBC % (auto) Smear Tech's Comments PT INR VBG pH 7.57 H VBG pCO2 34 VBG pO2 52 VBG HCO3 31 H VBG O2 Saturation 84.0 VBG Base Excess 9.1 Sodium 139 Potassium 3.6 Chloride 98 Carbon Dioxide 32 H Anion Gap 13 BUN 60 H Creatinine 1.35 Estim Creat Clear Calc 67.9 Estimated GFR 42 POC Glucose Random Glucose 150 H Calcium 8.7 Phosphorus 2.9 Magnesium 1.7 Total Bilirubin 7.3 H AST 41 H ALT 7 Alkaline Phosphatase 44 Ammonia 65 H Total Protein 5.8 L Albumin 3.2 L 06/29/22 06/29/22 06/29/22 06:05 07:59 10:00 WBC RBC Hgb Hct MCV MCH MCHC RDW Plt Count MPV Immature Gran % (Auto) Neut % (Auto) Lymph % (Auto) [place] % (Auto) Eos % (Auto) Baso % (Auto) Lymph # (Auto) [place] # (Auto) Eos # (Auto) Baso # (Auto) Abs Immat Gran (auto) Absolute Neuts (auto) Absolute Nucleated RBC Nucleated RBC % (auto) Smear Tech's Comments PT INR VBG pH VBG pCO2 VBG pO2 VBG HCO3 VBG O2 Saturation VBG Base Excess Sodium Potassium Chloride Carbon Dioxide Anion Gap BUN Creatinine Estim Creat Clear Calc Estimated GFR POC Glucose 149 H 163 H 154 H Random Glucose Calcium Phosphorus Magnesium Total Bilirubin AST ALT Alkaline Phosphatase Ammonia Total Protein Albumin 06/29/22 12:09 WBC RBC Hgb Hct MCV MCH MCHC RDW Plt Count MPV Immature Gran % (Auto) Neut % (Auto) Lymph % (Auto) [place] % (Auto) Eos % (Auto) Baso % (Auto) Lymph # (Auto) [place] # (Auto) Eos # (Auto) Baso # (Auto) Abs Immat Gran (auto) Absolute Neuts (auto) Absolute Nucleated RBC Nucleated RBC % (auto) Smear Tech's Comments PT INR VBG pH VBG pCO2 VBG pO2 VBG HCO3 VBG O2 Saturation VBG Base Excess Sodium Potassium Chloride Carbon Dioxide Anion Gap BUN Creatinine Estim Creat Clear Calc Estimated GFR POC Glucose 149 H Random Glucose Calcium Phosphorus Magnesium Total Bilirubin AST ALT Alkaline Phosphatase Ammonia Total Protein Albumin Microbiology Microbiology Results: Microbiology 06/22/22 15:05 Peritoneal Fluid Gram Stain - Final 06/22/22 15:05 Peritoneal Fluid Routine Culture - Final No growth after 2 days 06/22/22 15:05 Peritoneal Fluid Anaerobic Culture - Final NO GROWTH AFTER 5 DAYS 06/24/22 14:38 Blood - Central Line Blood Culture - Preliminary No growth after 48 hours. 06/24/22 14:39 Blood - Central Line Blood Culture - Preliminary No growth after 48 hours. 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: Status: Acute (2) Hypotension: Status: Acute (3) Acute on chronic kidney failure: Status: Acute (4) MSSA bacteremia: Status: Acute (5) Hyponatremia: Status: Acute Plan Now Resp failre req intubation and w ques related to Xfusion (TACO) and SHOCK on pressors in ICU and diuretics started by ICU - Non-Oliguric DULCE: most c/w HRSyn but now signif risk for furhter DULCE from ischemic ATN; initially was c/w HRS and LgVol Paracentesis possible precipitating HRS good news is incr UOP and SCr satble - Cirrhosis - Recurrent severe ascites requiring recurrent taps - DM - Anemia: s/p xfusion - Intravascular Vol status ?: challenging assessment--certainly 3rd spaced fluid Overall critically ill now and at signif risk for needing RESTAURANT MGR in next 24-48 hrs REC: Creatinine is better Good U Output with better renal perfusion Cardiopul support Lactulose Midodrine D/w ICU team track UOP/renal func; avoid Ntoxins; Will follow closely with team Time Spent With Patient Time: Total time managing care of this patient today ____ minutes. Progress Note: Quality Stroke Does the patient have a stroke diagnosis?: No
[2022-06-29 14:05] LABS: Glucose, Whole Blood 159 mg/dL (60-115)
[2022-06-29 16:04] LABS: Glucose, Whole Blood 156 mg/dL (60-115)
[2022-06-29 18:05] LABS: Glucose, Whole Blood 155 mg/dL (60-115)
--- NOTE | 2022-06-29 18:18 | PC.NURSE ---
Pt continues to be off sedation; intubated and on Vent AC settings of 16/350/8/30%, coughing intermittently otherwise tolerating. Pt opens eyes to voice and is now tracking, MD aware. Pt otherwise continues to be unable to follow commands. Pt on Levophed gtt , unable to wean off; SR/ST with PVCs on tele. Pt has the TF at goal with no residuals, FWF given per order. Restarted on Insulin gtt per protocol, MD aware. Pt' quijano patent and draining dark yellow urine. Had an episode of very small stool incontinence, care provided. Pt bathed this shift. Repositioned every 2 hrs and as needed, prevalon system, wedges and turning bed utilized. visiting at bedside, updated. Safety maintained throughout. Will continue to monitor.
[2022-06-29] MEDS: dexmedeTOMIDidine HCL/NS 400 MCG/100 ML INFUS..BTL 32.13 MCG IVCONT (19:34)
[2022-06-29 20:07] LABS: Glucose, Whole Blood 162 mg/dL (60-115)
[2022-06-29 22:09] LABS: Glucose, Whole Blood 168 mg/dL (60-115)
[2022-06-29] MEDS: dexmedeTOMIDidine HCL/NS 400 MCG/100 ML INFUS..BTL 25.7 MCG IVCONT (22:28)
[2022-06-30] VITALS (39 sets, daily range): BP systolic 88–127; BP diastolic 36–68; PULSE 73–84; RESP 13–29; TEMP 35.1–38; O2SAT 93–100; BMI 50.2
[2022-06-30 00:13] LABS: Glucose, Whole Blood 162 mg/dL (60-115)
[2022-06-30 01:58] LABS: Glucose, Whole Blood 169 mg/dL (60-115)
[2022-06-30] MEDS: dexmedeTOMIDidine HCL/NS 400 MCG/100 ML INFUS..BTL 19.28 MCG IVCONT (02:50)
[2022-06-30] MEDS: Albuterol Sulfate (0.083%) 2.5 MG/3 ML VIAL.NEB INHALE ×5 (03:53→19:06)
[2022-06-30 04:16] LABS: Glucose, Whole Blood 159 mg/dL (60-115)
[2022-06-30 05:02] LABS: VBG Base Excess 9.3 mmol/L; VBG HCO3 31 mmol/L (22-26); VBG pCO2 32 mmHg; VBG pH 7.58 (7.32-7.43); VBG pO2 47 mmHg
[2022-06-30 05:03] LABS: MANUAL DIFF FLAG NO; Venous Blood Gas Refer to POC result
[2022-06-30 05:12] LABS: Ammonia 57 umol/L (13-55)
[2022-06-30 05:13] LABS: Basophils Percent Auto 0.4 % (0-2); Eosinophils Absolute Auto 0.3 X10*3/uL (0.0-0.4); Eosinophils Percent Auto 4.8 % (0-4); Hematocrit 29.6 % (37.0-47.0); Hemoglobin 9.6 g/dl (12.0-16.0); Imm Gran Abs Auto 0.07 X10*3/uL (0.00-0.03); Lymphocytes Absolute Auto 0.6 X10*3/uL (1.2-4.9); Lymphocytes Percent Auto 8.5 % (20-40); Mean Corpuscular HGB Conc 32.4 g/dl (31.0-35.0); Mean Corpuscular Hemoglobin 32.9 pg (27.0-33.0); Mean Corpuscular Volume 101.4 fL (80.0-98.0); Mean Platelet Volume 10.1 fL (9.4-12.3); Monocytes Absolute Auto 0.9 X10*3/uL (0.1-1.2); Monocytes Percent Auto 12.6 % (2-11); Neutrophils Percent Auto 72.7 % (45-73); Red Blood Count 2.92 X10*6/uL (4.20-5.50); Red Cell Distribution Width 18.1 % (11.0-16.0); White Blood Count 6.9 X10*3/uL (4.8-10.8)
[2022-06-30 05:14] LABS: Platelet Count 40 X10*3/uL (160-400)
[2022-06-30 05:19] LABS: INTERNATIONAL NORM RATIO 1.9 (0.9-1.1); Prothrombin Time 22.8 SEC (10.0-13.1)
[2022-06-30 05:21] LABS: Alanine Aminotransferase 8 U/L (0-31); Albumin Level 3.2 g/dL (3.5-5.0); Alkaline Phosphatase 44 U/L (39-117); Anion Gap 15 (12-20); Aspartate Amino Transferase 40 U/L (5-31); Bilirubin Total 7.4 mg/dL (0.0-1.0); Blood Urea Nitrogen 51 mg/dL (9-16); Calcium 8.7 mg/dL (8.4-10.2); Carbon Dioxide 30 mmol/L (22-29); Chloride 100 mmol/L (96-108); Creatinine Clr Calc Pharmacy 71.6; Estimated Glomerular Filt Rate 45; Glucose Random 165 mg/dL (60-115); Magnesium 1.7 mg/dL (1.6-2.6); Potassium 3.9 mmol/L (3.3-5.1); Sodium 141 mmol/L (135-145)
[2022-06-30] MEDS: Octreotide Acetate 100 MCG/ML AMPUL 200 MCG SUBCUT ×3 (05:31→20:39)
[2022-06-30] MEDS: Levothyroxine Sodium 100 MCG/5 ML VIAL 25 MCG IVPUSH (05:31)
[2022-06-30 06:02] LABS: Glucose, Whole Blood 162 mg/dL (60-115)
[2022-06-30] MEDS: 0.9 % Sodium Chloride Flush 3 ML SYRINGE IVFLUSH ×2 (07:37→14:29)
[2022-06-30] MEDS: levoFLOXacin/D5W 250 MG/50 ML PIGGYBACK 50 MG IV (07:37)
[2022-06-30] MEDS: Insulin Regular/NS 100 UNIT/100 ML PLAST..BAG IVCONT (07:39)
[2022-06-30] MEDS: Chlorhexidine Gluc Oral Rinse 15 ML MOUTHWASH BUCCAL ×2 (07:40→14:29)
[2022-06-30] MEDS: Thiamine HCL 100 MG TABLET PO (07:41)
[2022-06-30] MEDS: rifAXIMin 550 MG TABLET PO (07:41)
[2022-06-30] MEDS: Lactulose 20 GM/30 ML SOLUTION PO (07:41)
[2022-06-30] MEDS: Famotidine/PF 20 MG/2 ML VIAL IVPUSH (07:41)
[2022-06-30 08:11] LABS: Glucose, Whole Blood 158 mg/dL (60-115)
[2022-06-30] MEDS: bisacodyL 10 MG SUPP.RECT PR (09:36)
[2022-06-30] MEDS: Albumin Human 25 % 100 ML IV ×3 (09:36→20:39)
--- NOTE | 2022-06-30 11:04 | MHC.CLN ---
F/U DISCUSSED WITH TEAM AT ROUNDS. PATIENT INTUBATED AND OFF OF SEDATION. TUBE FEEDING HELD DUE TO HIGH RESIDUALS. MONITOR TUBE FEED TOLERANCE AND LABS. FOLLOW WITH TEAM FOR PLAN OF CARE.
--- NOTE | 2022-06-30 11:32 | P.PNCC_ITS ---
Subjective Subjective Date of Service: 06/30/22 Interval History: 47-year-old lady with underlying history of diabetes mellitus, hypertension, SERVIN associated liver cirrhosis requiring large volume paracentesis admitted on 06/21/2022 with abdominal distension requiring therapeutic paracentesis with removal of approximately 9 L with subsequent decompensation despite albumin support, further complicated by acute anemia requiring blood transfusion with development transfusion associated volume overload/pulmonary edema requiring transfer to intensive care unit and intubation, also with acute on chronic kidney injury. No events overnight. Tolerating pressure support today. Critical Care Time (minutes): 45 Physical Exam Vital Signs: Vital Signs: Last Vital Signs Temp 99.7 F 06/30/22 11:00 Pulse 78 06/30/22 11:00 Resp 18 06/30/22 11:00 BP 115/58 L 06/30/22 11:00 Pulse Ox 96 06/30/22 11:00 O2 Del Method 06/30/22 11:00 O2 Flow Rate 15 06/24/22 01:17 FiO2 30 06/30/22 11:00 BMI result Body Mass Index 50.2 Const: General: no acute distress, alert and awake Nutritional Appearance: obese Eyes: Sclerae: sclerae normal EOM: EOMs intact bilaterally Neck: Neck: Yes no lymphadenopathy, Yes trachea midline and Yes supple Resp: Auscultation: crackles (Mild bilateral) Cardio: Rate: regular rate Rhythm: regular rhythm Heart sounds: no gallops, no murmurs and no rubs GI: Palpation (GI): Soft to palpation and Other GI palpation findings present ( Nontender) Auscultation: normal bowel sounds Extrem: General: No clubbing, No cyanosis and Yes edema (1+ bilateral) Objective Data Labs 06/30/22 04:40 06/30/22 04:40 Labs: Laboratory Results - last 24 hr 06/29/22 06/29/22 06/29/22 12:09 14:01 15:59 WBC RBC Hgb Hct MCV MCH MCHC RDW Plt Count MPV Immature Gran % (Auto) Neut % (Auto) Lymph % (Auto) [place] % (Auto) Eos % (Auto) Baso % (Auto) Lymph # (Auto) [place] # (Auto) Eos # (Auto) Baso # (Auto) Abs Immat Gran (auto) Absolute Neuts (auto) Absolute Nucleated RBC Nucleated RBC % (auto) PT INR VBG pH VBG pCO2 VBG pO2 VBG HCO3 VBG O2 Saturation VBG Base Excess Sodium Potassium Chloride Carbon Dioxide Anion Gap BUN Creatinine Estim Creat Clear Calc Estimated GFR POC Glucose 149 H 159 H 156 H Random Glucose Calcium Phosphorus Magnesium Total Bilirubin AST ALT Alkaline Phosphatase Ammonia Total Protein Albumin 06/29/22 06/29/22 06/29/22 18:01 20:03 22:06 WBC RBC Hgb Hct MCV MCH MCHC RDW Plt Count MPV Immature Gran % (Auto) Neut % (Auto) Lymph % (Auto) [place] % (Auto) Eos % (Auto) Baso % (Auto) Lymph # (Auto) [place] # (Auto) Eos # (Auto) Baso # (Auto) Abs Immat Gran (auto) Absolute Neuts (auto) Absolute Nucleated RBC Nucleated RBC % (auto) PT INR VBG pH VBG pCO2 VBG pO2 VBG HCO3 VBG O2 Saturation VBG Base Excess Sodium Potassium Chloride Carbon Dioxide Anion Gap BUN Creatinine Estim Creat Clear Calc Estimated GFR POC Glucose 155 H 162 H 168 H Random Glucose Calcium Phosphorus Magnesium Total Bilirubin AST ALT Alkaline Phosphatase Ammonia Total Protein Albumin 06/30/22 06/30/22 06/30/22 00:02 01:54 04:12 WBC RBC Hgb Hct MCV MCH MCHC RDW Plt Count MPV Immature Gran % (Auto) Neut % (Auto) Lymph % (Auto) [place] % (Auto) Eos % (Auto) Baso % (Auto) Lymph # (Auto) [place] # (Auto) Eos # (Auto) Baso # (Auto) Abs Immat Gran (auto) Absolute Neuts (auto) Absolute Nucleated RBC Nucleated RBC % (auto) PT INR VBG pH VBG pCO2 VBG pO2 VBG HCO3 VBG O2 Saturation VBG Base Excess Sodium Potassium Chloride Carbon Dioxide Anion Gap BUN Creatinine Estim Creat Clear Calc Estimated GFR POC Glucose 162 H 169 H 159 H Random Glucose Calcium Phosphorus Magnesium Total Bilirubin AST ALT Alkaline Phosphatase Ammonia Total Protein Albumin 06/30/22 06/30/22 06/30/22 04:40 04:40 04:40 WBC 6.9 RBC 2.92 L Hgb 9.6 L Hct 29.6 L MCV 101.4 H MCH 32.9 MCHC 32.4 RDW 18.1 H Plt Count 40 L D MPV 10.1 Immature Gran % (Auto) 1.0 H Neut % (Auto) 72.7 Lymph % (Auto) 8.5 L [place] % (Auto) 12.6 H Eos % (Auto) 4.8 H Baso % (Auto) 0.4 Lymph # (Auto) 0.6 L [place] # (Auto) 0.9 Eos # (Auto) 0.3 Baso # (Auto) 0.0 Abs Immat Gran (auto) 0.07 H Absolute Neuts (auto) 5.0 Absolute Nucleated RBC 0.000 Nucleated RBC % (auto) 0.0 PT 22.8 H INR 1.9 H VBG pH VBG pCO2 VBG pO2 VBG HCO3 VBG O2 Saturation VBG Base Excess Sodium 141 Potassium 3.9 Chloride 100 Carbon Dioxide 30 H Anion Gap 15 BUN 51 H Creatinine 1.27 Estim Creat Clear Calc 71.6 Estimated GFR 45 POC Glucose Random Glucose 165 H Calcium 8.7 Phosphorus 3.0 Magnesium 1.7 Total Bilirubin 7.4 H AST 40 H ALT 8 Alkaline Phosphatase 44 Ammonia Total Protein 6.0 L Albumin 3.2 L 06/30/22 06/30/22 06/30/22 04:40 04:40 04:54 WBC RBC Hgb Hct MCV MCH MCHC RDW Plt Count MPV Immature Gran % (Auto) Neut % (Auto) Lymph % (Auto) [place] % (Auto) Eos % (Auto) Baso % (Auto) Lymph # (Auto) [place] # (Auto) Eos # (Auto) Baso # (Auto) Abs Immat Gran (auto) Absolute Neuts (auto) Absolute Nucleated RBC Nucleated RBC % (auto) PT INR VBG pH 7.58 H VBG pCO2 32 VBG pO2 47 VBG HCO3 31 H VBG O2 Saturation 80.0 VBG Base Excess 9.3 Sodium Potassium Chloride Carbon Dioxide Anion Gap BUN Creatinine Cancelled Estim Creat Clear Calc Cancelled Estimated GFR Cancelled POC Glucose Random Glucose Calcium Phosphorus Magnesium Total Bilirubin AST ALT Alkaline Phosphatase Ammonia 57 H Total Protein Albumin 06/30/22 06/30/22 05:57 08:08 WBC RBC Hgb Hct MCV MCH MCHC RDW Plt Count MPV Immature Gran % (Auto) Neut % (Auto) Lymph % (Auto) [place] % (Auto) Eos % (Auto) Baso % (Auto) Lymph # (Auto) [place] # (Auto) Eos # (Auto) Baso # (Auto) Abs Immat Gran (auto) Absolute Neuts (auto) Absolute Nucleated RBC Nucleated RBC % (auto) PT INR VBG pH VBG pCO2 VBG pO2 VBG HCO3 VBG O2 Saturation VBG Base Excess Sodium Potassium Chloride Carbon Dioxide Anion Gap BUN Creatinine Estim Creat Clear Calc Estimated GFR POC Glucose 162 H 158 H Random Glucose Calcium Phosphorus Magnesium Total Bilirubin AST ALT Alkaline Phosphatase Ammonia Total Protein Albumin Microbiology Microbiology Results: Microbiology 06/24/22 14:38 Blood - Central Line Blood Culture - Final No growth after 5 days. 06/24/22 14:39 Blood - Central Line Blood Culture - Final No growth after 5 days. 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 Cardiac: No acute issues. Pulmonary: Acute hypoxic respiratory failure secondary to pulmonary edema on the background of large volume paracentesis, continue to titrate off ventilatory support as tolerated. Renal: Acute renal failure on the background of chronic renal disease secondary to fluid shifts with large volume paracentesis, improved. Continue to monitor renal indices and urine output. Nephrology service care appreciated. Endo: No acute issues. Underlying diabetes mellitus. GI: Nonalcoholic steatohepatitis related liver cirrhosis. Gastroenterology service care appreciated. Overall plan for liver [facility] evaluation at [facility]. No bowel minutes for the last 7 days, continue lactulose. Dulcolax suppository ordered. ID: No acute issues Heme/Onc: No acute issues. Psych: No acute issues. Miscellaneous: No acute issues. Prophylaxis: Pneumatic compression, famotidine Diet: Tube feeds Critical care time spent: 45 minutes Quality Stroke Does the patient have a stroke diagnosis?: No VTE Prior VTE?: No VTE Risk Level:: Medical - moderate - high VTE Device Contraindication: N/A - Device Ordered VTE Drug Contraindication: Treatment Not Indicated
[2022-06-30 12:05] LABS: Glucose, Whole Blood 150 mg/dL (60-115)
--- NOTE | 2022-06-30 12:51 | MHC.CM.PN ---
Pt continues on ventilatory support: may transfer to [facility] hepato transplant team vs outpt f/u. PSV trials to start today. CM to follow for d/c planning finalization
[2022-06-30] MEDS: Norepinephrine Bitartrate/D5W 8 MG/250 ML PLAST..BAG 14.29 MG IV (13:25)
--- NOTE | 2022-06-30 15:07 | PM.PNNEP ---
Subjective Subjective Date of Service: 06/30/22 Interval history: No events overnight. All recent data reviewed Physical Exam Vital Signs: Vital Signs: Last Vital Signs Temp 99.5 F 06/30/22 13:00 Pulse 80 06/30/22 14:00 Resp 29 H 06/30/22 14:00 BP 91/51 L 06/30/22 14:00 Pulse Ox 98 06/30/22 14:00 O2 Del Method 06/30/22 14:00 O2 Flow Rate 3 06/30/22 14:00 FiO2 30 06/30/22 13:00 BMI result Body Mass Index 50.2 Const: General: no acute distress Neck: Neck: Yes supple Resp: Auscultation: diminished lung sounds Cardio: Rate: regular rate GI: Palpation (GI): Soft to palpation Skin: General skin exam: no rashes or lesions noted Objective Data Labs 06/30/22 04:40 06/30/22 04:40 Labs: Laboratory Results - last 24 hr 06/29/22 06/29/22 06/29/22 15:59 18:01 20:03 WBC RBC Hgb Hct MCV MCH MCHC RDW Plt Count MPV Immature Gran % (Auto) Neut % (Auto) Lymph % (Auto) [place] % (Auto) Eos % (Auto) Baso % (Auto) Lymph # (Auto) [place] # (Auto) Eos # (Auto) Baso # (Auto) Abs Immat Gran (auto) Absolute Neuts (auto) Absolute Nucleated RBC Nucleated RBC % (auto) PT INR VBG pH VBG pCO2 VBG pO2 VBG HCO3 VBG O2 Saturation VBG Base Excess Sodium Potassium Chloride Carbon Dioxide Anion Gap BUN Creatinine Estim Creat Clear Calc Estimated GFR POC Glucose 156 H 155 H 162 H Random Glucose Calcium Phosphorus Magnesium Total Bilirubin AST ALT Alkaline Phosphatase Ammonia Total Protein Albumin 06/29/22 06/30/22 06/30/22 22:06 00:02 01:54 WBC RBC Hgb Hct MCV MCH MCHC RDW Plt Count MPV Immature Gran % (Auto) Neut % (Auto) Lymph % (Auto) [place] % (Auto) Eos % (Auto) Baso % (Auto) Lymph # (Auto) [place] # (Auto) Eos # (Auto) Baso # (Auto) Abs Immat Gran (auto) Absolute Neuts (auto) Absolute Nucleated RBC Nucleated RBC % (auto) PT INR VBG pH VBG pCO2 VBG pO2 VBG HCO3 VBG O2 Saturation VBG Base Excess Sodium Potassium Chloride Carbon Dioxide Anion Gap BUN Creatinine Estim Creat Clear Calc Estimated GFR POC Glucose 168 H 162 H 169 H Random Glucose Calcium Phosphorus Magnesium Total Bilirubin AST ALT Alkaline Phosphatase Ammonia Total Protein Albumin 06/30/22 06/30/22 06/30/22 04:12 04:40 04:40 WBC 6.9 RBC 2.92 L Hgb 9.6 L Hct 29.6 L MCV 101.4 H MCH 32.9 MCHC 32.4 RDW 18.1 H Plt Count 40 L D MPV 10.1 Immature Gran % (Auto) 1.0 H Neut % (Auto) 72.7 Lymph % (Auto) 8.5 L [place] % (Auto) 12.6 H Eos % (Auto) 4.8 H Baso % (Auto) 0.4 Lymph # (Auto) 0.6 L [place] # (Auto) 0.9 Eos # (Auto) 0.3 Baso # (Auto) 0.0 Abs Immat Gran (auto) 0.07 H Absolute Neuts (auto) 5.0 Absolute Nucleated RBC 0.000 Nucleated RBC % (auto) 0.0 PT 22.8 H INR 1.9 H VBG pH VBG pCO2 VBG pO2 VBG HCO3 VBG O2 Saturation VBG Base Excess Sodium Potassium Chloride Carbon Dioxide Anion Gap BUN Creatinine Estim Creat Clear Calc Estimated GFR POC Glucose 159 H Random Glucose Calcium Phosphorus Magnesium Total Bilirubin AST ALT Alkaline Phosphatase Ammonia Total Protein Albumin 06/30/22 06/30/22 06/30/22 04:40 04:40 04:40 WBC RBC Hgb Hct MCV MCH MCHC RDW Plt Count MPV Immature Gran % (Auto) Neut % (Auto) Lymph % (Auto) [place] % (Auto) Eos % (Auto) Baso % (Auto) Lymph # (Auto) [place] # (Auto) Eos # (Auto) Baso # (Auto) Abs Immat Gran (auto) Absolute Neuts (auto) Absolute Nucleated RBC Nucleated RBC % (auto) PT INR VBG pH VBG pCO2 VBG pO2 VBG HCO3 VBG O2 Saturation VBG Base Excess Sodium 141 Potassium 3.9 Chloride 100 Carbon Dioxide 30 H Anion Gap 15 BUN 51 H Creatinine 1.27 Cancelled Estim Creat Clear Calc 71.6 Cancelled Estimated GFR 45 Cancelled POC Glucose Random Glucose 165 H Calcium 8.7 Phosphorus 3.0 Magnesium 1.7 Total Bilirubin 7.4 H AST 40 H ALT 8 Alkaline Phosphatase 44 Ammonia 57 H Total Protein 6.0 L Albumin 3.2 L 06/30/22 06/30/22 06/30/22 04:54 05:57 08:08 WBC RBC Hgb Hct MCV MCH MCHC RDW Plt Count MPV Immature Gran % (Auto) Neut % (Auto) Lymph % (Auto) [place] % (Auto) Eos % (Auto) Baso % (Auto) Lymph # (Auto) [place] # (Auto) Eos # (Auto) Baso # (Auto) Abs Immat Gran (auto) Absolute Neuts (auto) Absolute Nucleated RBC Nucleated RBC % (auto) PT INR VBG pH 7.58 H VBG pCO2 32 VBG pO2 47 VBG HCO3 31 H VBG O2 Saturation 80.0 VBG Base Excess 9.3 Sodium Potassium Chloride Carbon Dioxide Anion Gap BUN Creatinine Estim Creat Clear Calc Estimated GFR POC Glucose 162 H 158 H Random Glucose Calcium Phosphorus Magnesium Total Bilirubin AST ALT Alkaline Phosphatase Ammonia Total Protein Albumin 06/30/22 12:02 WBC RBC Hgb Hct MCV MCH MCHC RDW Plt Count MPV Immature Gran % (Auto) Neut % (Auto) Lymph % (Auto) [place] % (Auto) Eos % (Auto) Baso % (Auto) Lymph # (Auto) [place] # (Auto) Eos # (Auto) Baso # (Auto) Abs Immat Gran (auto) Absolute Neuts (auto) Absolute Nucleated RBC Nucleated RBC % (auto) PT INR VBG pH VBG pCO2 VBG pO2 VBG HCO3 VBG O2 Saturation VBG Base Excess Sodium Potassium Chloride Carbon Dioxide Anion Gap BUN Creatinine Estim Creat Clear Calc Estimated GFR POC Glucose 150 H Random Glucose Calcium Phosphorus Magnesium Total Bilirubin AST ALT Alkaline Phosphatase Ammonia Total Protein Albumin Microbiology Microbiology Results: Microbiology 06/24/22 14:38 Blood - Central Line Blood Culture - Final No growth after 5 days. 06/24/22 14:39 Blood - Central Line Blood Culture - Final No growth after 5 days. 06/22/22 15:05 Peritoneal Fluid Gram Stain - Final 06/22/22 15:05 Peritoneal Fluid Routine Culture - Final No growth after 2 days 06/22/22 15:05 Peritoneal Fluid Anaerobic Culture - Final NO GROWTH AFTER 5 DAYS Procedures Date of Service Date of Service: 06/30/22 Assessment & Plan Assessment and plan (1) Acute on chronic kidney failure: Status: Acute Assessment and Plan: Non-Oliguric DULCE:? most c/w HRSyn but now significant risk for furthter DULCE from ischemic ATN; initially was c/w HRS and large Vol Paracentesis possible precipitating HRS Currently Renal function stable; C/W current supportive management Progress Note: Quality Stroke Does the patient have a stroke diagnosis?: No
[2022-06-30 18:14] LABS: Glucose, Whole Blood 155 mg/dL (60-115)
[2022-06-30] MEDS: Insulin Lispro 100 UNIT/ML 3 ML VIAL SUBCUT (18:18)
[2022-06-30 23:48] LABS: Glucose, Whole Blood 147 mg/dL (60-115)
[2022-07-01] VITALS (38 sets, daily range): BP systolic 89–131; BP diastolic 36–64; PULSE 74–96; RESP 12–30; TEMP 36.4–36.8; O2SAT 91–100; BMI 49.6
[2022-07-01] MEDS: Albuterol Sulfate (0.083%) 2.5 MG/3 ML VIAL.NEB INHALE ×6 (00:23→19:24)
[2022-07-01] MEDS: Norepinephrine Bitartrate/D5W 8 MG/250 ML PLAST..BAG 9.53 MG IV (02:57)
[2022-07-01] MEDS: Albumin Human 25 % 100 ML IV (02:59)
[2022-07-01 05:00] LABS: MANUAL DIFF FLAG NO
[2022-07-01 05:03] LABS: VBG Base Excess 7.1 mmol/L; VBG HCO3 30 mmol/L (22-26); VBG pCO2 38 mmHg; VBG pO2 53 mmHg
[2022-07-01 05:05] LABS: Basophils Percent Auto 0.4 % (0-2); Eosinophils Absolute Auto 0.4 X10*3/uL (0.0-0.4); Hematocrit 26.6 % (37.0-47.0); Hemoglobin 8.6 g/dl (12.0-16.0); Imm Gran Abs Auto 0.05 X10*3/uL (0.00-0.03); Imm Gran Pct Auto 0.7 % (0.0-0.4); Lymphocytes Absolute Auto 0.7 X10*3/uL (1.2-4.9); Lymphocytes Percent Auto 8.9 % (20-40); Mean Corpuscular HGB Conc 32.3 g/dl (31.0-35.0); Mean Corpuscular Hemoglobin 33.3 pg (27.0-33.0); Mean Corpuscular Volume 103.1 fL (80.0-98.0); Mean Platelet Volume 9.9 fL (9.4-12.3); Monocytes Absolute Auto 0.9 X10*3/uL (0.1-1.2); Monocytes Percent Auto 11.9 % (2-11); Neutrophils Absolute Auto 5.4 x10*3/uL (2.0-8.3); Neutrophils Percent Auto 73.1 % (45-73); Red Blood Count 2.58 X10*6/uL (4.20-5.50); Red Cell Distribution Width 17.7 % (11.0-16.0); Venous Blood Gas Refer to POC result; White Blood Count 7.3 X10*3/uL (4.8-10.8)
[2022-07-01 05:18] LABS: Platelet Count 42 X10*3/uL (160-400)
[2022-07-01 05:23] LABS: Alanine Aminotransferase 8 U/L (0-31); Albumin Level 3.9 g/dL (3.5-5.0); Alkaline Phosphatase 34 U/L (39-117); Anion Gap 13 (12-20); Aspartate Amino Transferase 37 U/L (5-31); Bilirubin Total 10.1 mg/dL (0.0-1.0); Blood Urea Nitrogen 43 mg/dL (9-16); Calcium 8.7 mg/dL (8.4-10.2); Carbon Dioxide 32 mmol/L (22-29); Chloride 103 mmol/L (96-108); Creatinine Clr Calc Pharmacy 81.3; Estimated Glomerular Filt Rate 52; Glucose Random 142 mg/dL (60-115); Magnesium 1.7 mg/dL (1.6-2.6); Phosphorus 2.7 mg/dL (2.7-4.5); Potassium 3.2 mmol/L (3.3-5.1); Sodium 145 mmol/L (135-145); Total Protein 6.1 g/dL (6.5-8.0)
[2022-07-01] MEDS: Levothyroxine Sodium 100 MCG/5 ML VIAL 25 MCG IVPUSH (05:33)
[2022-07-01] MEDS: Octreotide Acetate 100 MCG/ML AMPUL 200 MCG SUBCUT (05:34)
[2022-07-01 06:01] LABS: Glucose, Whole Blood 132 mg/dL (60-115)
[2022-07-01] MEDS: 0.9 % Sodium Chloride Flush 3 ML SYRINGE IVFLUSH ×2 (08:51→15:19)
[2022-07-01] MEDS: Famotidine/PF 20 MG/2 ML VIAL IVPUSH (08:51)
[2022-07-01] MEDS: Potassium Chloride/H20 40 MEQ/100 ML PIGGYBACK 50 MEQ IV (08:51)
[2022-07-01] MEDS: levoFLOXacin/D5W 250 MG/50 ML PIGGYBACK 50 MG IV (08:51)
[2022-07-01] MEDS: Chlorhexidine Gluc Oral Rinse 15 ML MOUTHWASH BUCCAL (08:58)
[2022-07-01] MEDS: rifAXIMin 550 MG TABLET PO ×2 (09:12→20:21)
[2022-07-01] MEDS: Thiamine HCL 100 MG TABLET PO (09:12)
[2022-07-01] MEDS: Lactulose 20 GM/30 ML SOLUTION PO ×2 (09:12→20:21)
[2022-07-01] MEDS: Acetaminophen 325 MG TABLET 650 MG PO (10:13)
--- NOTE | 2022-07-01 11:58 | PM.CCPN ---
Subjective Subjective Date of Service: 07/01/22 Interval History: 47-year-old lady with underlying history of diabetes mellitus, hypertension, SERVIN associated liver cirrhosis requiring large volume paracentesis admitted on 06/21/2022 with abdominal distension requiring therapeutic paracentesis with removal of approximately 9 L with subsequent decompensation despite albumin support, further complicated by acute anemia requiring blood transfusion with development transfusion associated volume overload/pulmonary edema requiring transfer to intensive care unit and intubation, also with acute on chronic kidney injury. Extubated 06/30/2022. No events overnight. Passed swallow evaluation. Critical Care Time (minutes): 30 Physical Exam Vital Signs: Vital Signs: Last Vital Signs Temp 98 F 07/01/22 04:00 Pulse 81 07/01/22 11:03 Resp 17 07/01/22 11:03 BP 115/47 L 07/01/22 11:00 Pulse Ox 95 07/01/22 11:00 O2 Del Method 07/01/22 11:00 O2 Flow Rate 2 07/01/22 11:00 FiO2 32 07/01/22 08:00 BMI result Body Mass Index 49.6 Const: General: no acute distress, alert and awake Nutritional Appearance: obese Eyes: Sclerae: sclerae normal EOM: EOMs intact bilaterally Neck: Neck: Yes no lymphadenopathy, Yes trachea midline and Yes supple Resp: Effort & Inspection: normal respiratory effort and no respiratory distress Auscultation: crackles ( Bibasilar) Cardio: Rate: regular rate Rhythm: regular rhythm Heart sounds: no gallops, no murmurs and no rubs GI: Inspection: Yes distended Palpation (GI): Soft to palpation and Other GI palpation findings present ( Nontender) Auscultation: normal bowel sounds Extrem: General: No clubbing, No cyanosis and Yes edema ( 2+ bilateral) Objective Data Labs 07/01/22 04:52 07/01/22 04:52 Labs: Laboratory Results - last 24 hr 06/30/22 06/30/22 06/30/22 12:02 18:10 23:44 WBC RBC Hgb Hct MCV MCH MCHC RDW Plt Count MPV Immature Gran % (Auto) Neut % (Auto) Lymph % (Auto) [place] % (Auto) Eos % (Auto) Baso % (Auto) Lymph # (Auto) [place] # (Auto) Eos # (Auto) Baso # (Auto) Abs Immat Gran (auto) Absolute Neuts (auto) Absolute Nucleated RBC Nucleated RBC % (auto) VBG pH VBG pCO2 VBG pO2 VBG HCO3 VBG O2 Saturation VBG Base Excess Sodium Potassium Chloride Carbon Dioxide Anion Gap BUN Creatinine Estim Creat Clear Calc Estimated GFR POC Glucose 150 H 155 H 147 H Random Glucose Calcium Phosphorus Magnesium Total Bilirubin AST ALT Alkaline Phosphatase Total Protein Albumin 07/01/22 07/01/22 07/01/22 04:52 04:52 04:55 WBC 7.3 RBC 2.58 L Hgb 8.6 L Hct 26.6 L MCV 103.1 H MCH 33.3 H MCHC 32.3 RDW 17.7 H Plt Count 42 L MPV 9.9 Immature Gran % (Auto) 0.7 H Neut % (Auto) 73.1 H Lymph % (Auto) 8.9 L [place] % (Auto) 11.9 H Eos % (Auto) 5.0 H Baso % (Auto) 0.4 Lymph # (Auto) 0.7 L [place] # (Auto) 0.9 Eos # (Auto) 0.4 Baso # (Auto) 0.0 Abs Immat Gran (auto) 0.05 H Absolute Neuts (auto) 5.4 Absolute Nucleated RBC 0.000 Nucleated RBC % (auto) 0.0 VBG pH 7.50 H VBG pCO2 38 VBG pO2 53 VBG HCO3 30 H VBG O2 Saturation 83.0 VBG Base Excess 7.1 Sodium 145 Potassium 3.2 L Chloride 103 Carbon Dioxide 32 H Anion Gap 13 BUN 43 H Creatinine 1.12 Estim Creat Clear Calc 81.3 Estimated GFR 52 POC Glucose Random Glucose 142 H Calcium 8.7 Phosphorus 2.7 Magnesium 1.7 Total Bilirubin 10.1 H AST 37 H ALT 8 Alkaline Phosphatase 34 L Total Protein 6.1 L Albumin 3.9 07/01/22 05:57 WBC RBC Hgb Hct MCV MCH MCHC RDW Plt Count MPV Immature Gran % (Auto) Neut % (Auto) Lymph % (Auto) [place] % (Auto) Eos % (Auto) Baso % (Auto) Lymph # (Auto) [place] # (Auto) Eos # (Auto) Baso # (Auto) Abs Immat Gran (auto) Absolute Neuts (auto) Absolute Nucleated RBC Nucleated RBC % (auto) VBG pH VBG pCO2 VBG pO2 VBG HCO3 VBG O2 Saturation VBG Base Excess Sodium Potassium Chloride Carbon Dioxide Anion Gap BUN Creatinine Estim Creat Clear Calc Estimated GFR POC Glucose 132 H Random Glucose Calcium Phosphorus Magnesium Total Bilirubin AST ALT Alkaline Phosphatase Total Protein Albumin Microbiology Microbiology Results: Microbiology 06/24/22 14:38 Blood - Central Line Blood Culture - Final No growth after 5 days. 06/24/22 14:39 Blood - Central Line Blood Culture - Final No growth after 5 days. 06/22/22 15:05 Peritoneal Fluid Gram Stain - Final 06/22/22 15:05 Peritoneal Fluid Routine Culture - Final No growth after 2 days 06/22/22 15:05 Peritoneal Fluid Anaerobic Culture - Final NO GROWTH AFTER 5 DAYS Progress Note: A&P Assessment and plan (1) Acute respiratory failure with hypoxia: Status: Acute (2) AMY (obstructive sleep apnea): Status: Acute (3) Acute on chronic kidney failure: Status: Acute (4) 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: Status: Acute (5) Diabetic nephropathy associated with type 2 diabetes mellitus: Status: Acute Plan Assessment: 47-year-old lady with nonalcoholic steatohepatitis related liver cirrhosis requiring requiring large volume paracentesis admitted requiring large volume paracentesis further complicated by acute respiratory failure requiring ventilatory support Plan: Neuro: No acute issues. Cardiac: Titrate off vasopressor support as tolerated. Pulmonary: Acute hypoxic respiratory failure secondary to pulmonary edema on the background of large volume paracentesis, improved. Extubated on 06/30/2022. Continue to titrate off supplemental oxygen as tolerated. Renal: Acute renal failure on the background of chronic renal disease secondary to fluid shifts with large volume paracentesis, improved. Continue to monitor renal indices and urine output. Nephrology service care appreciated. Endo: No acute issues. Underlying diabetes mellitus. GI: Nonalcoholic steatohepatitis related liver cirrhosis. Gastroenterology service care appreciated. Overall plan for liver transplant evaluation at [facility]. Constipation resolved. Start on spironolactone/ furosemide as blood pressure tolerates. ID: No acute issues Heme/Onc: No acute issues. Psych: No acute issues. Miscellaneous: No acute issues. Prophylaxis: Pneumatic compression Diet: Regular Critical care time spent: 30 minutes Quality Stroke Does the patient have a stroke diagnosis?: No VTE Prior VTE?: No VTE Risk Level:: Medical - moderate - high VTE Device Contraindication: N/A - Device Ordered VTE Drug Contraindication: Treatment Not Indicated
[2022-07-01 12:09] LABS: Glucose, Whole Blood 175 mg/dL (60-115)
--- NOTE | 2022-07-01 12:14 | MHC.CLN ---
F/U EXTUBATED 06/30. DIET=REGULAR. INITIATED 07/01. MONITOR PO INTAKE. FOLLOW WITH TEAM FOR PLAN OF CARE.
[2022-07-01] MEDS: Insulin Lispro 100 UNIT/ML 3 ML VIAL SUBCUT ×2 (12:32→20:20)
--- NOTE | 2022-07-01 13:36 | PM.PNNEP ---
Subjective Subjective Date of Service: 07/01/22 Interval history: No events overnight. Seen AM. All recent data reviewed. Extubated Physical Exam Vital Signs: Vital Signs: Last Vital Signs Temp 97.5 F 07/01/22 12:00 Pulse 82 07/01/22 13:00 Resp 26 H 07/01/22 13:00 BP 103/50 L 07/01/22 13:00 Pulse Ox 98 07/01/22 13:00 O2 Del Method 07/01/22 13:00 O2 Flow Rate 2 07/01/22 13:00 FiO2 32 07/01/22 08:00 BMI result Body Mass Index 49.6 Const: General: no acute distress Eyes: General: appearance normal, both eyes and all related structures EOM: EOMs intact bilaterally Resp: Auscultation: diminished lung sounds Cardio: Rate: regular rate GI: Palpation (GI): Soft to palpation Neuro: General: moves all extremities Objective Data Labs 07/01/22 04:52 07/01/22 04:52 Labs: Laboratory Results - last 24 hr 06/30/22 06/30/22 07/01/22 18:10 23:44 04:52 WBC 7.3 RBC 2.58 L Hgb 8.6 L Hct 26.6 L MCV 103.1 H MCH 33.3 H MCHC 32.3 RDW 17.7 H Plt Count 42 L MPV 9.9 Immature Gran % (Auto) 0.7 H Neut % (Auto) 73.1 H Lymph % (Auto) 8.9 L [place] % (Auto) 11.9 H Eos % (Auto) 5.0 H Baso % (Auto) 0.4 Lymph # (Auto) 0.7 L [place] # (Auto) 0.9 Eos # (Auto) 0.4 Baso # (Auto) 0.0 Abs Immat Gran (auto) 0.05 H Absolute Neuts (auto) 5.4 Absolute Nucleated RBC 0.000 Nucleated RBC % (auto) 0.0 VBG pH VBG pCO2 VBG pO2 VBG HCO3 VBG O2 Saturation VBG Base Excess Sodium Potassium Chloride Carbon Dioxide Anion Gap BUN Creatinine Estim Creat Clear Calc Estimated GFR POC Glucose 155 H 147 H Random Glucose Calcium Phosphorus Magnesium Total Bilirubin AST ALT Alkaline Phosphatase Total Protein Albumin 07/01/22 07/01/22 07/01/22 04:52 04:55 05:57 WBC RBC Hgb Hct MCV MCH MCHC RDW Plt Count MPV Immature Gran % (Auto) Neut % (Auto) Lymph % (Auto) [place] % (Auto) Eos % (Auto) Baso % (Auto) Lymph # (Auto) [place] # (Auto) Eos # (Auto) Baso # (Auto) Abs Immat Gran (auto) Absolute Neuts (auto) Absolute Nucleated RBC Nucleated RBC % (auto) VBG pH 7.50 H VBG pCO2 38 VBG pO2 53 VBG HCO3 30 H VBG O2 Saturation 83.0 VBG Base Excess 7.1 Sodium 145 Potassium 3.2 L Chloride 103 Carbon Dioxide 32 H Anion Gap 13 BUN 43 H Creatinine 1.12 Estim Creat Clear Calc 81.3 Estimated GFR 52 POC Glucose 132 H Random Glucose 142 H Calcium 8.7 Phosphorus 2.7 Magnesium 1.7 Total Bilirubin 10.1 H AST 37 H ALT 8 Alkaline Phosphatase 34 L Total Protein 6.1 L Albumin 3.9 07/01/22 12:06 WBC RBC Hgb Hct MCV MCH MCHC RDW Plt Count MPV Immature Gran % (Auto) Neut % (Auto) Lymph % (Auto) [place] % (Auto) Eos % (Auto) Baso % (Auto) Lymph # (Auto) [place] # (Auto) Eos # (Auto) Baso # (Auto) Abs Immat Gran (auto) Absolute Neuts (auto) Absolute Nucleated RBC Nucleated RBC % (auto) VBG pH VBG pCO2 VBG pO2 VBG HCO3 VBG O2 Saturation VBG Base Excess Sodium Potassium Chloride Carbon Dioxide Anion Gap BUN Creatinine Estim Creat Clear Calc Estimated GFR POC Glucose 175 H Random Glucose Calcium Phosphorus Magnesium Total Bilirubin AST ALT Alkaline Phosphatase Total Protein Albumin Microbiology Microbiology Results: Microbiology 06/24/22 14:38 Blood - Central Line Blood Culture - Final No growth after 5 days. 06/24/22 14:39 Blood - Central Line Blood Culture - Final No growth after 5 days. 06/22/22 15:05 Peritoneal Fluid Gram Stain - Final 06/22/22 15:05 Peritoneal Fluid Routine Culture - Final No growth after 2 days 06/22/22 15:05 Peritoneal Fluid Anaerobic Culture - Final NO GROWTH AFTER 5 DAYS Procedures Date of Service Date of Service: 07/01/22 Assessment & Plan Assessment and plan (1) Acute on chronic kidney failure: Status: Acute Assessment and Plan: Non-Oliguric DULCE:? most c/w HRSyn but now significant? risk for furthter DULCE from ischemic ATN; initially was c/w HRS and large Vol Paracentesis possible precipitating HRS Currently Renal function stable; C/W current supportive management Progress Note: Quality Stroke Does the patient have a stroke diagnosis?: No
[2022-07-01] MEDS: Midodrine HCl 10 MG TABLET PO ×2 (15:17→20:21)
[2022-07-01 16:17] LABS: Glucose, Whole Blood 143 mg/dL (60-115)
--- NOTE | 2022-07-01 18:47 | PC.NURSE ---
Pt initially on CPAP, changed to 3L O2, satting high 90s, titrated to RA but pt drowsy and falling asleep throughout the day, back on 2L O2 for AMY, tolerating. Pt unable to wean off Levophed gtt at this time, goal for MAP>60 per MD. Pt passed bedside swallow test, on Regular diet, poor PO intake. Pt otherwise in no acute distress. Pt bathed and repositioned every 2 hrs as needed, prevalon system and turning bed utilized. Rectal tube in place, draining dark brown loose stool. Nazario in place, dark yellow urine draining. Safety maintained. Will continue to monitor.
[2022-07-01 20:19] LABS: Glucose, Whole Blood 163 mg/dL (60-115)
[2022-07-02] VITALS (22 sets, daily range): BP systolic 88–124; BP diastolic 43–62; PULSE 76–92; RESP 16–24; TEMP 36.3–37; O2SAT 89–98; BMI 48.4
[2022-07-02] MEDS: 0.9 % Sodium Chloride Flush 3 ML SYRINGE IVFLUSH ×4 (00:26→19:51)
[2022-07-02 04:49] LABS: VBG Base Excess 8.6 mmol/L; VBG HCO3 31 mmol/L (22-26); VBG pCO2 35 mmHg; VBG pH 7.55 (7.32-7.43); VBG pO2 47 mmHg
[2022-07-02 04:50] LABS: MANUAL DIFF FLAG NO
[2022-07-02 04:52] LABS: Venous Blood Gas Refer to POC result
[2022-07-02 04:58] LABS: Basophils Percent Auto 0.5 % (0-2); Eosinophils Absolute Auto 0.3 X10*3/uL (0.0-0.4); Eosinophils Percent Auto 4.2 % (0-4); Hematocrit 27.2 % (37.0-47.0); Hemoglobin 8.7 g/dl (12.0-16.0); Imm Gran Abs Auto 0.04 X10*3/uL (0.00-0.03); Imm Gran Pct Auto 0.6 % (0.0-0.4); Lymphocytes Absolute Auto 0.4 X10*3/uL (1.2-4.9); Lymphocytes Percent Auto 6.8 % (20-40); Mean Corpuscular Hemoglobin 33.3 pg (27.0-33.0); Mean Corpuscular Volume 104.2 fL (80.0-98.0); Monocytes Absolute Auto 0.6 X10*3/uL (0.1-1.2); Monocytes Percent Auto 9.6 % (2-11); Neutrophils Absolute Auto 5.1 x10*3/uL (2.0-8.3); Neutrophils Percent Auto 78.3 % (45-73); Red Blood Count 2.61 X10*6/uL (4.20-5.50); Red Cell Distribution Width 17.8 % (11.0-16.0); White Blood Count 6.5 X10*3/uL (4.8-10.8)
[2022-07-02 04:59] LABS: Platelet Count 45 X10*3/uL (160-400)
[2022-07-02 05:14] LABS: Alanine Aminotransferase 9 U/L (0-31); Albumin Level 3.3 g/dL (3.5-5.0); Alkaline Phosphatase 34 U/L (39-117); Anion Gap 15 (12-20); Aspartate Amino Transferase 49 U/L (5-31); Bilirubin Total 8.8 mg/dL (0.0-1.0); Blood Urea Nitrogen 37 mg/dL (9-16); Calcium 8.3 mg/dL (8.4-10.2); Carbon Dioxide 28 mmol/L (22-29); Chloride 105 mmol/L (96-108); Creatinine Clr Calc Pharmacy 103.7; Estimated Glomerular Filt Rate > 60; Glucose Random 142 mg/dL (60-115); Magnesium 1.7 mg/dL (1.6-2.6); Phosphorus 2.6 mg/dL (2.7-4.5); Potassium 3.9 mmol/L (3.3-5.1); Sodium 144 mmol/L (135-145); Total Protein 5.8 g/dL (6.5-8.0)
[2022-07-02] MEDS: Levothyroxine Sodium 100 MCG/5 ML VIAL 25 MCG IVPUSH (06:08)
[2022-07-02] MEDS: Potassium Phosphate/NS 15 MMOL/250 ML PLAST..BAG 62.5 MMOL IV (06:09)
[2022-07-02] MEDS: Acetaminophen 325 MG TABLET 650 MG PO (06:27)
[2022-07-02 08:11] LABS: Glucose, Whole Blood 132 mg/dL (60-115)
[2022-07-02] MEDS: Thiamine HCL 100 MG TABLET PO (08:33)
[2022-07-02] MEDS: Midodrine HCl 10 MG TABLET PO ×3 (08:33→19:51)
[2022-07-02] MEDS: rifAXIMin 550 MG TABLET PO ×2 (08:33→19:51)
[2022-07-02] MEDS: Lactulose 20 GM/30 ML SOLUTION PO ×2 (08:33→19:51)
[2022-07-02] MEDS: Albuterol Sulfate (0.083%) 2.5 MG/3 ML VIAL.NEB INHALE (11:12)
[2022-07-02 11:39] LABS: Glucose, Whole Blood 127 mg/dL (60-115)
--- NOTE | 2022-07-02 14:23 | PM.CCPN ---
Subjective Subjective Date of Service: 07/02/22 Interval History: 47-year-old lady with underlying history of diabetes mellitus, hypertension, SERVIN associated liver cirrhosis requiring large volume paracentesis admitted on 06/21/2022 with abdominal distension requiring therapeutic paracentesis with removal of approximately 9 L with subsequent decompensation despite albumin support, further complicated by acute anemia requiring blood transfusion with development transfusion associated volume overload/pulmonary edema requiring transfer to intensive care unit and intubation, also with acute on chronic kidney injury. Extubated 06/30/2022. Passed swallow evaluation. No events overnight. Critical Care Time (minutes): 0 Physical Exam Vital Signs: Vital Signs: Last Vital Signs Temp 97.9 F 07/02/22 14:15 Pulse 80 07/02/22 14:15 Resp 16 07/02/22 14:15 BP 115/58 L 07/02/22 14:15 Pulse Ox 96 07/02/22 14:15 O2 Del Method 07/02/22 14:15 O2 Flow Rate 2 07/02/22 14:15 FiO2 32 07/02/22 04:00 BMI result Body Mass Index 48.4 Const: General: no acute distress and alert Nutritional Appearance: obese Orientation/consciousness: Other orientation findings ( oriented) HEENT: Head: Yes atraumatic Mouth: no other ( thrush) Throat: No postnasal drainage Eyes: General: appearance normal, both eyes and all related structures Sclerae: sclerae normal EOM: EOMs intact bilaterally Neck: Neck: Yes supple Lymphatic: no lymphadenopathy noted Resp: Effort & Inspection: normal respiratory effort and no use of accessory muscles Auscultation: crackles ( Mild bilateral) Cardio: Rate: regular rate Rhythm: regular rhythm Heart sounds: no gallops, no murmurs and no rubs GI: Inspection: Yes distended Palpation (GI): Soft to palpation and Other GI palpation findings present ( nontender) Skin: General skin exam: other ( warm) Rashes: no rashes Extrem: General: No clubbing, No cyanosis and Yes edema ( 2+ bilateral) Objective Data Labs 07/02/22 04:39 07/02/22 04:39 Labs: Laboratory Results - last 24 hr 07/01/22 07/01/22 07/02/22 16:14 20:15 04:39 WBC RBC Hgb Hct MCV MCH MCHC RDW Plt Count MPV Immature Gran % (Auto) Neut % (Auto) Lymph % (Auto) [place] % (Auto) Eos % (Auto) Baso % (Auto) Lymph # (Auto) [place] # (Auto) Eos # (Auto) Baso # (Auto) Abs Immat Gran (auto) Absolute Neuts (auto) Absolute Nucleated RBC Nucleated RBC % (auto) VBG pH VBG pCO2 VBG pO2 VBG HCO3 VBG O2 Saturation VBG Base Excess Sodium 144 Potassium 3.9 D Chloride 105 Carbon Dioxide 28 Anion Gap 15 BUN 37 H Creatinine 0.87 Estim Creat Clear Calc 103.7 Estimated GFR > 60 POC Glucose 143 H 163 H Random Glucose 142 H Calcium 8.3 L Phosphorus 2.6 L Magnesium 1.7 Total Bilirubin 8.8 H AST 49 H ALT 9 Alkaline Phosphatase 34 L Total Protein 5.8 L Albumin 3.3 L 07/02/22 07/02/22 07/02/22 04:39 04:42 08:07 WBC 6.5 RBC 2.61 L Hgb 8.7 L Hct 27.2 L MCV 104.2 H MCH 33.3 H MCHC 32.0 RDW 17.8 H Plt Count 45 L MPV 10.0 Immature Gran % (Auto) 0.6 H Neut % (Auto) 78.3 H Lymph % (Auto) 6.8 L [place] % (Auto) 9.6 Eos % (Auto) 4.2 H Baso % (Auto) 0.5 Lymph # (Auto) 0.4 L [place] # (Auto) 0.6 Eos # (Auto) 0.3 Baso # (Auto) 0.0 Abs Immat Gran (auto) 0.04 H Absolute Neuts (auto) 5.1 Absolute Nucleated RBC 0.000 Nucleated RBC % (auto) 0.0 VBG pH 7.55 H VBG pCO2 35 VBG pO2 47 VBG HCO3 31 H VBG O2 Saturation 79.0 VBG Base Excess 8.6 Sodium Potassium Chloride Carbon Dioxide Anion Gap BUN Creatinine Estim Creat Clear Calc Estimated GFR POC Glucose 132 H Random Glucose Calcium Phosphorus Magnesium Total Bilirubin AST ALT Alkaline Phosphatase Total Protein Albumin 07/02/22 11:34 WBC RBC Hgb Hct MCV MCH MCHC RDW Plt Count MPV Immature Gran % (Auto) Neut % (Auto) Lymph % (Auto) [place] % (Auto) Eos % (Auto) Baso % (Auto) Lymph # (Auto) [place] # (Auto) Eos # (Auto) Baso # (Auto) Abs Immat Gran (auto) Absolute Neuts (auto) Absolute Nucleated RBC Nucleated RBC % (auto) VBG pH VBG pCO2 VBG pO2 VBG HCO3 VBG O2 Saturation VBG Base Excess Sodium Potassium Chloride Carbon Dioxide Anion Gap BUN Creatinine Estim Creat Clear Calc Estimated GFR POC Glucose 127 H Random Glucose Calcium Phosphorus Magnesium Total Bilirubin AST ALT Alkaline Phosphatase Total Protein Albumin Microbiology Microbiology Results: Microbiology 06/24/22 14:38 Blood - Central Line Blood Culture - Final No growth after 5 days. 06/24/22 14:39 Blood - Central Line Blood Culture - Final No growth after 5 days. 06/22/22 15:05 Peritoneal Fluid Gram Stain - Final 06/22/22 15:05 Peritoneal Fluid Routine Culture - Final No growth after 2 days 06/22/22 15:05 Peritoneal Fluid Anaerobic Culture - Final NO GROWTH AFTER 5 DAYS Progress Note: A&P Assessment and plan (1) Acute respiratory failure with hypoxia: Status: Acute (2) AMY (obstructive sleep apnea): Status: Acute (3) 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: Status: Acute (4) Morbid obesity: Status: Acute (5) Diabetes type 2, uncontrolled: Status: Acute Plan Assessment: 47-year-old lady with nonalcoholic steatohepatitis related liver cirrhosis requiring requiring large volume paracentesis admitted requiring large volume paracentesis further complicated by acute respiratory failure requiring ventilatory support Plan: Neuro: No acute issues. Cardiac: Titrate off vasopressor support as tolerated. Pulmonary: Acute hypoxic respiratory failure secondary to pulmonary edema on the background of large volume paracentesis, improved. Extubated on 06/30/2022. Continue to titrate off supplemental oxygen as tolerated. Renal: Acute renal failure on the background of chronic renal disease secondary to fluid shifts with large volume paracentesis, improved. Continue to monitor renal indices and urine output. Nephrology service care appreciated. Endo: No acute issues. Underlying diabetes mellitus. GI: Nonalcoholic steatohepatitis related liver cirrhosis. Gastroenterology service care appreciated. Overall plan for liver transplant evaluation at [facility]. Constipation resolved. Start on spironolactone/ furosemide for ascites control as blood pressure tolerates. ID: No acute issues Heme/Onc: No acute issues. Chronic thrombocytopenia and coagulopathy secondary to liver disease. Psych: No acute issues. Miscellaneous: No acute issues. Prophylaxis: Pneumatic compression Diet: Regular At this time patient is stable for transfer to telemetry ortiz. Transfer discussed with Dr. Mares. Quality Stroke Does the patient have a stroke diagnosis?: No VTE Prior VTE?: No VTE Risk Level:: Medical - moderate - high VTE Device Contraindication: N/A - Device Ordered VTE Drug Contraindication: Treatment Not Indicated
--- NOTE | 2022-07-02 14:28 | P.EN_ITS ---
Event Note Date of Service: 07/02/22 Event Note: [facility] - [phone] Dr. Davila Time Spent With Patient Time: Total time managing care of this patient today ____ minutes.
--- NOTE | 2022-07-02 14:28 | PM.EVENT ---
Event Note Date of Service: 07/02/22 Event Note: [facility] - [phone] Dr. Davila Time Spent With Patient Time: Total time managing care of this patient today ____ minutes.
--- NOTE | 2022-07-02 15:01 | P.DS_ITS ---
DS: Providers Provider Date of Service: 07/02/22 Date of admission: 06/21/22 17:09 Primary care physician: Radha Anne MD Consults: 06/21/22 17:20 Consult to Nephrology Routine Consulting Provider: Zana Powell Reason for consultation: DULCE, cirrhosis 06/24/22 13:09 Consult to Cardiology Routine Consulting Provider: Arnie Wood Reason for consultation: DEMETRI for staph bacteremia Has provider been notified: Yes Consult to Gastroenterology Routine Consulting Provider: Sergei Verma Reason for consultation: hepatic failure Has provider been notified: Yes DS: Diagnosis Discharge Diagnosis (1) Acute respiratory failure with hypoxia: Status: Acute (2) AMY (obstructive sleep apnea): Status: Acute (3) 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: Status: Acute (4) Morbid obesity: Status: Acute (5) Diabetes type 2, uncontrolled: Status: Acute DS: Summary Hospital Course Hospital Course: from initial hpi: 47-year-old female with history of uncontrolled insulin-dependent type 2 diabetes, hyperlipidemia, hypertension, 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? She denies any abdominal pain, nausea, vomiting, diarrhea confusion, or lightheadedness.? However she has been experiencing dyspnea on exertion and occasional shortness of breath at rest.? Her legs are significantly swollen making it difficult for her to walk and she feels weak we with tingling in the feet bilaterally which has been chronic.? She was recently discharged on 06/08 and underwent paracentesis with 7.5 L removed which was negative for SBP.? She does continue on spironolactone and Lasix and does have follow-up later in the month with a transplant center in [place] and follows outpatient with Dr. Verma.? During the admission, blood cultures were positive for MSSA and she was started on IV Ancef to be completed on 07/01/2022 followed by Levaquin 500 mg 3 times weekly. In the ED, blood pressure soft, vitals otherwise stable.? No leukocytosis.? Stable normocytic anemia with H/H 9.7/29.6%.? Platelets 48500.? Creatinine 2.00, baseline 0.93, BUN 38.? Sodium 132, potassium 3.7, chloride 92, CO2? 27.? In the ED received albumin. hospital course: Patient was admitted for symptomatic ascites in the setting of SERVIN associated liver cirrhosis complicated by hypotension status post 9 L paracentesis. Patient then noted to have acute on chronic anemia likely due to inflammation/dilution. She was given blood transfusion and developed TRALI/ acute hypoxic respiratory failure requiring intubation and ICU admission further complicated by acute kidney injury. Respiratory status slowly improved as did renal function. Patient was extubated. Now weaned down to 2 L oxygen. Continued on midodrine, rifaximin, lactulose. For hypothyroidism was continue on Synthroid. Per morbid obesity weight loss is recommended. For diabetes continued on insulin. For AMY on CPAP at night. Discussion was had with liver transplant services at [facility], accepted for transfer. Time Spent with Patient Time attestation: Total time managing care of this patient today ____ minutes. Discharge coordination time: Greater than 30 minutes Quality: Safe Use of Opioids Does Pt have an Active Cancer Diagnosis on the Problem List?: No Quality: Stroke Does the patient have a stroke diagnosis?: No Physical Exam Vital Signs: Vital Signs: Last Vital Signs Temp 97.9 F 07/02/22 14:15 Pulse 80 07/02/22 14:15 Resp 16 07/02/22 14:15 BP 115/58 L 07/02/22 14:15 Pulse Ox 96 07/02/22 14:15 O2 Del Method 07/02/22 14:15 O2 Flow Rate 2 07/02/22 14:15 FiO2 32 07/02/22 04:00 BMI result Body Mass Index 48.4 frail, juandiced, abd soft, cta bilateral lungs, diffuse weakness DS: Data Data Completed and Pending Completed studies during hospitalization [Text1]: Procedures Drainage of Peritoneal Cavity, Percutaneous Approach (05/30/22) Insertion of Infusion Device into Right Basilic Vein, Percutaneous Approach (05/30/22) Labs on day of discharge: Laboratory Results - last 24 hr 07/01/22 07/01/22 07/02/22 16:14 20:15 04:39 WBC RBC Hgb Hct MCV MCH MCHC RDW Plt Count MPV Immature Gran % (Auto) Neut % (Auto) Lymph % (Auto) [place] % (Auto) Eos % (Auto) Baso % (Auto) Lymph # (Auto) [place] # (Auto) Eos # (Auto) Baso # (Auto) Abs Immat Gran (auto) Absolute Neuts (auto) Absolute Nucleated RBC Nucleated RBC % (auto) VBG pH VBG pCO2 VBG pO2 VBG HCO3 VBG O2 Saturation VBG Base Excess Sodium 144 Potassium 3.9 D Chloride 105 Carbon Dioxide 28 Anion Gap 15 BUN 37 H Creatinine 0.87 Estim Creat Clear Calc 103.7 Estimated GFR > 60 POC Glucose 143 H 163 H Random Glucose 142 H Calcium 8.3 L Phosphorus 2.6 L Magnesium 1.7 Total Bilirubin 8.8 H AST 49 H ALT 9 Alkaline Phosphatase 34 L Total Protein 5.8 L Albumin 3.3 L 07/02/22 07/02/22 07/02/22 04:39 04:42 08:07 WBC 6.5 RBC 2.61 L Hgb 8.7 L Hct 27.2 L MCV 104.2 H MCH 33.3 H MCHC 32.0 RDW 17.8 H Plt Count 45 L MPV 10.0 Immature Gran % (Auto) 0.6 H Neut % (Auto) 78.3 H Lymph % (Auto) 6.8 L [place] % (Auto) 9.6 Eos % (Auto) 4.2 H Baso % (Auto) 0.5 Lymph # (Auto) 0.4 L [place] # (Auto) 0.6 Eos # (Auto) 0.3 Baso # (Auto) 0.0 Abs Immat Gran (auto) 0.04 H Absolute Neuts (auto) 5.1 Absolute Nucleated RBC 0.000 Nucleated RBC % (auto) 0.0 VBG pH 7.55 H VBG pCO2 35 VBG pO2 47 VBG HCO3 31 H VBG O2 Saturation 79.0 VBG Base Excess 8.6 Sodium Potassium Chloride Carbon Dioxide Anion Gap BUN Creatinine Estim Creat Clear Calc Estimated GFR POC Glucose 132 H Random Glucose Calcium Phosphorus Magnesium Total Bilirubin AST ALT Alkaline Phosphatase Total Protein Albumin 07/02/22 11:34 WBC RBC Hgb Hct MCV MCH MCHC RDW Plt Count MPV Immature Gran % (Auto) Neut % (Auto) Lymph % (Auto) [place] % (Auto) Eos % (Auto) Baso % (Auto) Lymph # (Auto) [place] # (Auto) Eos # (Auto) Baso # (Auto) Abs Immat Gran (auto) Absolute Neuts (auto) Absolute Nucleated RBC Nucleated RBC % (auto) VBG pH VBG pCO2 VBG pO2 VBG HCO3 VBG O2 Saturation VBG Base Excess Sodium Potassium Chloride Carbon Dioxide Anion Gap BUN Creatinine Estim Creat Clear Calc Estimated GFR POC Glucose 127 H Random Glucose Calcium Phosphorus Magnesium Total Bilirubin AST ALT Alkaline Phosphatase Total Protein Albumin Discharge Plan Discharge Anticipated Discharge Date/Time: 07/02/22 14:58 Patient Disposition: Xfer Acute Care Hospital Discharge Diagnosis: trali, cirrhosis Referrals: Radha Anne MD [Primary Care Provider] - 1 Week Discharge Medications: New midodrine 10 mg Tablet 10 mg PO TID Qty: 0 0RF Xifaxan 550 mg Tablet 550 mg PO BID Qty: 0 0RF Continued lactulose 10 gram/15 mL solution 30 ml PO DAILY PRN (Reason: Constipation) Qty: 946 0RF Toujeo Max U-300 SoloStar 300 unit/mL (3 mL) insulin pen 80 unit subcut BEDTIME omeprazole 40 mg Capsule,Delayed Release(Dr/Ec) 40 mg PO DAILY@0630 Qty: 30 0RF spironolactone 25 mg Tablet 75 mg PO BID@0900,1800 30 Days Qty: 180 0RF Protocol: Hold for SBP< HOLD for SBP < : 90 zinc sulfate 50 mg zinc (220 mg) capsule 1 cap PO DAILY furosemide 20 mg tablet 20 mg PO DAILY ipratropium-albuterol 0.5 mg-3 mg(2.5 mg base)/3 mL solution for nebulization 1 amp inhalation QID PRN (Reason: dyspnea) insulin lispro 100 unit/mL insulin pen 26 unit subcut TIDAC Rx Instructions: 26 units if blood sugar <200; 30 units if blood sugar >200 vitamin E (dl, acetate) 180 mg (400 unit) capsule 1 cap PO BID (DME) FreeStyle Lite Strips Strip See Rx Instructions .ROUTE .MEDSUPPLY Qty: 10 Rx Instructions: test 3x a day (DME) lancets [FreeStyle Lancets] 28 gauge misc See Rx Instructions .ROUTE .MEDSUPPLY Qty: 100 Rx Instructions: test 3x a day albuterol sulfate [Ventolin HFA] 90 mcg/actuation HFA aerosol inhaler 2 puff inhalation Q6H Flovent HFA 220 mcg/actuation HFA aerosol inhaler 2 puff inhalation BID levothyroxine 50 mcg tablet 50 mcg PO DAILY@0600 vitamin A 10,000 unit capsule 1 cap PO DAILY Trulicity 1.5 mg/0.5 mL pen injector 1.5 mg subcut MO@0900 Discontinued lisinopril 2.5 mg tablet 1 tab PO DAILY loratadine 10 mg tablet 1 tab PO DAILY PRN (Reason: Allergy Symptoms) acetaminophen 325 mg tablet 2 tab PO Q8H PRN (Reason: pain) gabapentin 300 mg capsule 300 mg PO BEDTIME Discharge Orders: Discharge Order (Routine); Ordered 07/02/22 Ordered By: Demetrio Mares Diet: Diabetic diet Activity on Discharge: As tolerated Stand Alone Forms: Patient Portal Discharge page Care Plan Goals: manage liver cirrhosis Health Concerns: liver cirrhosis Plan of Treatment: transfer to [facility] Assessment: see above
[2022-07-02 16:12] LABS: Glucose, Whole Blood 155 mg/dL (60-115)
[2022-07-02] MEDS: Insulin Lispro 100 UNIT/ML 3 ML VIAL SUBCUT (16:48)
[2022-07-02 19:37] LABS: Glucose, Whole Blood 128 mg/dL (60-115)
--- NOTE | 2022-07-02 22:50 | PC.RT ---
Pt awake and alert, refused to wear CPAP tonight for NOC support. RN aware
[2022-07-03 04:00] VITALS: BP 98/50; PULSE 78; RESP 20; TEMP 36.4; O2SAT 95
[2022-07-03] MEDS: Levothyroxine Sodium 50 MCG TABLET PO (05:26)
[2022-07-03 06:00] VITALS: BMI 48.0
[2022-07-03 06:27] LABS: MANUAL DIFF FLAG NO
[2022-07-03 06:31] LABS: Basophils Percent Auto 0.6 % (0-2); Eosinophils Absolute Auto 0.3 X10*3/uL (0.0-0.4); Eosinophils Percent Auto 3.9 % (0-4); Hemoglobin 8.9 g/dl (12.0-16.0); Imm Gran Abs Auto 0.03 X10*3/uL (0.00-0.03); Imm Gran Pct Auto 0.4 % (0.0-0.4); Lymphocytes Absolute Auto 0.5 X10*3/uL (1.2-4.9); Lymphocytes Percent Auto 7.7 % (20-40); Mean Corpuscular HGB Conc 31.8 g/dl (31.0-35.0); Mean Corpuscular Hemoglobin 33.2 pg (27.0-33.0); Mean Corpuscular Volume 104.5 fL (80.0-98.0); Mean Platelet Volume 9.9 fL (9.4-12.3); Monocytes Absolute Auto 0.6 X10*3/uL (0.1-1.2); Monocytes Percent Auto 9.1 % (2-11); Neutrophils Absolute Auto 5.4 x10*3/uL (2.0-8.3); Neutrophils Percent Auto 78.3 % (45-73); Red Blood Count 2.68 X10*6/uL (4.20-5.50); Red Cell Distribution Width 17.9 % (11.0-16.0); White Blood Count 6.8 X10*3/uL (4.8-10.8)
[2022-07-03 06:32] LABS: Platelet Count 50 X10*3/uL (160-400)
[2022-07-03 06:55] LABS: Alanine Aminotransferase 10 U/L (0-31); Albumin Level 3.2 g/dL (3.5-5.0); Alkaline Phosphatase 37 U/L (39-117); Anion Gap 14 (12-20); Aspartate Amino Transferase 42 U/L (5-31); Bilirubin Total 7.2 mg/dL (0.0-1.0); Blood Urea Nitrogen 32 mg/dL (9-16); Calcium 8.5 mg/dL (8.4-10.2); Carbon Dioxide 28 mmol/L (22-29); Chloride 107 mmol/L (96-108); Creatinine Clr Calc Pharmacy 96.2; Estimated Glomerular Filt Rate > 60; Glucose Random 120 mg/dL (60-115); Magnesium 1.6 mg/dL (1.6-2.6); Phosphorus 2.4 mg/dL (2.7-4.5); Potassium 3.5 mmol/L (3.3-5.1); Sodium 145 mmol/L (135-145); Total Protein 5.8 g/dL (6.5-8.0)
[2022-07-03 07:06] VITALS: BP 99/85; PULSE 78; RESP 20; TEMP 36.7; O2SAT 95
[2022-07-03 07:24] LABS: Glucose, Whole Blood 120 mg/dL (60-115)
--- NOTE | 2022-07-03 08:57 | HO.PM.IMPN ---
Subjective Subjective Date of Service: 07/03/22 Interval History: sob improved, feeling weak Physical Exam Vital Signs: Vital Signs: Last Vital Signs Temp 98.0 F 07/03/22 07:06 Pulse 78 07/03/22 07:06 Resp 20 07/03/22 07:06 BP 99/85 07/03/22 07:06 Pulse Ox 95 07/03/22 07:06 O2 Del Method 07/03/22 07:06 O2 Flow Rate 2 07/03/22 07:06 FiO2 32 07/02/22 04:00 BMI result Body Mass Index 48.0 frail, juandiced, abd soft, cta bilateral lungs, diffuse weakness Objective Data Active Medications Acetaminophen (Acetaminophen 325 Mg Tablet) 650 mg PO Q6H PRN PRN Reason: Pain, Moderate (Pain Scale 4-6 Last Admin: 07/02/22 06:27 Dose: 650 mg Documented By: GLORIA Albuterol Sulfate (Albuterol Sulfate (0.083%) 2.5 Mg/3 Ml Vial.Neb) 2.5 mg INHALE Q4H PRN PRN Reason: Shortness of Breath/Wheezing Last Admin: 07/02/22 11:12 Dose: 2.5 mg Documented By: EMILIANO Glucose (Glucose Gel 15 Gm Gel..Gram.) 15 gm PO Q15M PRN; Protocol PRN Reason: per Hypoglycemia Standing Ord. Insulin Human Lispro (Insulin Lispro 100 Unit/Ml 3 Ml Vial) 0 unit SUBCUT QIDACHS [facility]; Protocol Last Admin: 07/03/22 07:46 Dose: Not Given Documented By: JEWELS Non-Admin Reason: No Insulin Coverage Lactulose (Lactulose 20 Gm/30 Ml Solution) 20 gm PO BID [facility] Last Admin: 07/02/22 19:51 Dose: 20 gm Documented By: PAULA Levothyroxine Sodium (Levothyroxine Sodium 50 Mcg Tablet) 50 mcg PO DAILY@0600 [facility] Last Admin: 07/03/22 05:26 Dose: 50 mcg Documented By: PAULA Midodrine (Midodrine Hcl 10 Mg Tablet) 10 mg PO TID [facility] Last Admin: 07/02/22 19:51 Dose: 10 mg Documented By: PAULA Pharmacy Consult (Consult Rx Perform Med Rec) 1 each MISCELLANE ONCE PRN PRN Reason: Consult order Rifaximin (Rifaximin 550 Mg Tablet) 550 mg PO BID [facility] Last Admin: 07/02/22 19:51 Dose: 550 mg Documented By: PAULA Sodium Chloride (0.9 % Sodium Chloride Flush 3 Ml Syringe) 3 ml IVFLUSH QSHIFT [facility] Last Admin: 07/02/22 19:51 Dose: 3 ml Documented By: PAULA Thiamine HCl (Thiamine Hcl 100 Mg Tablet) 100 mg PO DAILY [facility] Last Admin: 07/02/22 08:33 Dose: 100 mg Documented By: ABRAHAM Labs 07/03/22 06:21 07/03/22 06:21 Labs: Laboratory Results - last 24 hr 07/02/22 07/02/22 07/02/22 11:34 15:38 19:19 MCV MCH MCHC RDW Plt Count MPV Immature Gran % (Auto) Neut % (Auto) Lymph % (Auto) [place] % (Auto) Eos % (Auto) Baso % (Auto) Lymph # (Auto) [place] # (Auto) Eos # (Auto) Baso # (Auto) Abs Immat Gran (auto) Absolute Neuts (auto) Absolute Nucleated RBC Nucleated RBC % (auto) Anion Gap Estim Creat Clear Calc Estimated GFR POC Glucose 127 H 155 H 128 H Random Glucose Calcium Phosphorus Magnesium Total Bilirubin AST ALT Alkaline Phosphatase Total Protein Albumin 07/03/22 07/03/22 07/03/22 06:21 06:21 07:05 MCV 104.5 H MCH 33.2 H MCHC 31.8 RDW 17.9 H Plt Count 50 L MPV 9.9 Immature Gran % (Auto) 0.4 Neut % (Auto) 78.3 H Lymph % (Auto) 7.7 L [place] % (Auto) 9.1 Eos % (Auto) 3.9 Baso % (Auto) 0.6 Lymph # (Auto) 0.5 L [place] # (Auto) 0.6 Eos # (Auto) 0.3 Baso # (Auto) 0.0 Abs Immat Gran (auto) 0.03 Absolute Neuts (auto) 5.4 Absolute Nucleated RBC 0.000 Nucleated RBC % (auto) 0.0 Anion Gap 14 Estim Creat Clear Calc 96.2 Estimated GFR > 60 POC Glucose 120 H Random Glucose 120 H Calcium 8.5 Phosphorus 2.4 L Magnesium 1.6 Total Bilirubin 7.2 H AST 42 H ALT 10 Alkaline Phosphatase 37 L Total Protein 5.8 L Albumin 3.2 L Assessment and Plan (1) Acute respiratory failure with hypoxia: Status: Acute Plan 47-year-old female with history of uncontrolled insulin-dependent type 2 diabetes, hyperlipidemia, hypertension, 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 Patient was admitted for symptomatic ascites in the setting of SERVIN associated liver cirrhosis complicated by hypotension status post 9 L paracentesis.? Patient then noted to have acute on chronic anemia likely due to inflammation/dilution.? She was given blood transfusion and developed TRALI/ acute hypoxic respiratory failure requiring intubation and ICU admission further complicated by acute kidney injury.? Respiratory status slowly improved as did renal function.? Patient was extubated and downgraded to medical floor, accepted to [facility] transplant services, awaiting bed. acute hypoxic respiratory failure due to TRALI resolved servin cirrhosis plan for transfer to [facility] for transplant eval continue midodrine, lactulose, rifaximin hypothyroid synthroid DM insulin dvt prophylaxis - mechanical due to elevated inr from cirrhosis full code reason for continued hospitalization:awaiting transfer Time Spent With Patient Time: Total time managing care of this patient today ____ minutes. Quality Stroke Does the patient have a stroke diagnosis?: No VTE Prior VTE?: No VTE Risk Level:: Medical - moderate - high VTE Device Contraindication: N/A - Device Ordered VTE Drug Contraindication: Treatment Not Indicated
[2022-07-03] MEDS: Midodrine HCl 10 MG TABLET PO ×3 (09:50→22:07)
[2022-07-03] MEDS: Thiamine HCL 100 MG TABLET PO (09:50)
[2022-07-03] MEDS: rifAXIMin 550 MG TABLET PO ×2 (09:50→22:07)
[2022-07-03] MEDS: 0.9 % Sodium Chloride Flush 3 ML SYRINGE IVFLUSH ×2 (09:50→16:42)
[2022-07-03] MEDS: Lactulose 20 GM/30 ML SOLUTION PO ×2 (09:50→22:07)
[2022-07-03 11:06] VITALS: BP 115/56; PULSE 80; RESP 16; TEMP 36.8; O2SAT 97
[2022-07-03 11:11] LABS: Glucose, Whole Blood 122 mg/dL (60-115)
--- NOTE | 2022-07-03 13:00 | MHC.CM.PN ---
EMR REVIEWED, PER HOSPITALIST PT ACCEPTED AT [facility] AND AWAITING BED FOR TRANSFER.
--- NOTE | 2022-07-03 13:09 | MHC.CLN ---
F/U EXTUBATED 06/30 AND REGULAR DIET INITIATED 07/01. CURRENT INTAKE POOR. CONTINUE REGULAR DIET TO PROMOTE PO INTAKE. ACCEPTED AT [facility] AND AWAITING BED FOR TRANSFER. ENCOURAGE INTAKE AT MEALS ABLE.
[2022-07-03 15:57] VITALS: BP 117/58; PULSE 86; RESP 16; TEMP 36.8; O2SAT 95
[2022-07-03] MEDS: Insulin Lispro 100 UNIT/ML 3 ML VIAL SUBCUT (16:42)
[2022-07-03 16:51] LABS: Glucose, Whole Blood 218 mg/dL (60-115)
[2022-07-03 20:00] VITALS: BP 122/58; PULSE 72; RESP 16; TEMP 36.5; O2SAT 95
[2022-07-03 20:57] LABS: Glucose, Whole Blood 135 mg/dL (60-115)
[2022-07-04] VITALS (8 sets, daily range): BP systolic 93–123; BP diastolic 49–83; PULSE 80–94; RESP 16–20; TEMP 36.3–36.8; O2SAT 90–97; BMI 48.0
[2022-07-04] MEDS: 0.9 % Sodium Chloride Flush 3 ML SYRINGE IVFLUSH ×4 (01:03→20:11)
[2022-07-04] MEDS: Levothyroxine Sodium 50 MCG TABLET PO (06:42)
[2022-07-04 07:14] LABS: Hematocrit 28.1 % (37.0-47.0); Hemoglobin 8.8 g/dl (12.0-16.0); Mean Corpuscular HGB Conc 31.3 g/dl (31.0-35.0); Mean Corpuscular Hemoglobin 33.2 pg (27.0-33.0); Mean Platelet Volume 10.7 fL (9.4-12.3); Red Blood Count 2.65 X10*6/uL (4.20-5.50)
[2022-07-04 07:19] LABS: Platelet Count 51 X10*3/uL (160-400)
[2022-07-04 07:27] LABS: Glucose, Whole Blood 125 mg/dL (60-115)
[2022-07-04 07:32] LABS: Alanine Aminotransferase 10 U/L (0-31); Albumin Level 3.2 g/dL (3.5-5.0); Alkaline Phosphatase 40 U/L (39-117); Anion Gap 11 (12-20); Aspartate Amino Transferase 42 U/L (5-31); Bilirubin Direct 2.5 mg/dL (0.0-0.5); Bilirubin Total 6.2 mg/dL (0.0-1.0); Blood Urea Nitrogen 26 mg/dL (9-16); Calcium 8.1 mg/dL (8.4-10.2); Carbon Dioxide 30 mmol/L (22-29); Chloride 104 mmol/L (96-108); Creatinine Clr Calc Pharmacy 109.3; Estimated Glomerular Filt Rate > 60; Glucose Fasting 127 mg/dL (60-99); Potassium 3.2 mmol/L (3.3-5.1); Sodium 142 mmol/L (135-145); Total Protein 5.9 g/dL (6.5-8.0)
[2022-07-04] MEDS: Thiamine HCL 100 MG TABLET PO (09:20)
[2022-07-04] MEDS: Midodrine HCl 10 MG TABLET PO ×3 (09:20→20:11)
[2022-07-04] MEDS: Lactulose 20 GM/30 ML SOLUTION PO ×2 (09:20→20:11)
[2022-07-04] MEDS: rifAXIMin 550 MG TABLET PO ×2 (09:20→20:11)
--- NOTE | 2022-07-04 09:31 | MHC.CM.PN ---
EMR REVIEWED, PT ACCEPTED AT [facility] AND STILL AWAITING BED FOR TRANSFER. CM WILL CONT TO FOLLOW.
--- NOTE | 2022-07-04 11:20 | MHC.CLN ---
F/U DIET=REGULAR. ADDING ENSURE MAX PROTEIN BID TO INCREASE NUTRITIONAL INTAKE. PROVIDES 300 KCALS, 60 G PROTEIN. CURRENT INTAKE USUALLY POOR, 0-75%. ACCEPTED AT [facility] AND AWAITING BED FOR TRANSFER. ENCOURAGE INTAKE AT MEALS/SUPPLEMENT ABLE.
[2022-07-04 11:25] LABS: Glucose, Whole Blood 163 mg/dL (60-115)
--- NOTE | 2022-07-04 12:05 | HO.PM.IMPN ---
Subjective Subjective Date of Service: 07/04/22 Interval History: sob improved, feeling weak Physical Exam Vital Signs: Vital Signs: Last Vital Signs Temp 98.1 F 07/04/22 11:40 Pulse 85 07/04/22 11:40 Resp 17 07/04/22 11:40 BP 107/58 L 07/04/22 11:40 Pulse Ox 90 L 07/04/22 11:40 O2 Del Method 07/04/22 07:23 O2 Flow Rate 2 07/04/22 07:23 FiO2 32 07/02/22 04:00 BMI result Body Mass Index 48.0 frail, juandiced, abd soft, cta bilateral lungs, diffuse weakness Objective Data Active Medications Acetaminophen (Acetaminophen 325 Mg Tablet) 650 mg PO Q6H PRN PRN Reason: Pain, Moderate (Pain Scale 4-6 Last Admin: 07/02/22 06:27 Dose: 650 mg Documented By: GLORIA Albuterol Sulfate (Albuterol Sulfate (0.083%) 2.5 Mg/3 Ml Vial.Neb) 2.5 mg INHALE Q4H PRN PRN Reason: Shortness of Breath/Wheezing Last Admin: 07/02/22 11:12 Dose: 2.5 mg Documented By: EMILIANO Glucose (Glucose Gel 15 Gm Gel..Gram.) 15 gm PO Q15M PRN; Protocol PRN Reason: per Hypoglycemia Standing Ord. Insulin Human Lispro (Insulin Lispro 100 Unit/Ml 3 Ml Vial) 0 unit SUBCUT QIDACHS [facility]; Protocol Last Admin: 07/04/22 09:14 Dose: Not Given Documented By: SIMONA Non-Admin Reason: No Insulin Coverage Lactulose (Lactulose 20 Gm/30 Ml Solution) 20 gm PO BID [facility] Last Admin: 07/04/22 09:20 Dose: 20 gm Documented By: SIMONA Levothyroxine Sodium (Levothyroxine Sodium 50 Mcg Tablet) 50 mcg PO DAILY@0600 [facility] Last Admin: 07/04/22 06:42 Dose: 50 mcg Documented By: BRIANA Midodrine (Midodrine Hcl 10 Mg Tablet) 10 mg PO TID [facility] Last Admin: 07/04/22 09:20 Dose: 10 mg Documented By: SIMONA Pharmacy Consult (Consult Rx Perform Med Rec) 1 each MISCELLANE ONCE PRN PRN Reason: Consult order Rifaximin (Rifaximin 550 Mg Tablet) 550 mg PO BID [facility] Last Admin: 07/04/22 09:20 Dose: 550 mg Documented By: SIMONA Sodium Chloride (0.9 % Sodium Chloride Flush 3 Ml Syringe) 3 ml IVFLUSH QSHIFT [facility] Last Admin: 07/04/22 09:20 Dose: 3 ml Documented By: SIMONA Thiamine HCl (Thiamine Hcl 100 Mg Tablet) 100 mg PO DAILY [facility] Last Admin: 07/04/22 09:20 Dose: 100 mg Documented By: SIMONA Labs 07/04/22 06:24 07/04/22 06:24 Labs: Laboratory Results - last 24 hr 07/03/22 07/03/22 07/04/22 16:20 20:50 06:24 MCV 106.0 H MCH 33.2 H MCHC 31.3 RDW 18.0 H Plt Count 51 L MPV 10.7 Absolute Nucleated RBC 0.000 Nucleated RBC % (auto) 0.0 Anion Gap Estim Creat Clear Calc Estimated GFR POC Glucose 218 H 135 H Fasting Glucose Calcium Total Bilirubin Direct Bilirubin AST ALT Alkaline Phosphatase Total Protein Albumin 07/04/22 07/04/22 07/04/22 06:24 07:22 11:16 MCV MCH MCHC RDW Plt Count MPV Absolute Nucleated RBC Nucleated RBC % (auto) Anion Gap 11 L Estim Creat Clear Calc 109.3 Estimated GFR > 60 POC Glucose 125 H 163 H Fasting Glucose 127 H Calcium 8.1 L Total Bilirubin 6.2 H Direct Bilirubin 2.5 H AST 42 H ALT 10 Alkaline Phosphatase 40 Total Protein 5.9 L Albumin 3.2 L Assessment and Plan (1) Acute respiratory failure with hypoxia: Status: Acute Plan 47-year-old female with history of uncontrolled insulin-dependent type 2 diabetes, hyperlipidemia, hypertension, 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 Patient was admitted for symptomatic ascites in the setting of SERVIN associated liver cirrhosis complicated by hypotension status post 9 L paracentesis.? Patient then noted to have acute on chronic anemia likely due to inflammation/dilution.? She was given blood transfusion and developed TRALI/ acute hypoxic respiratory failure requiring intubation and ICU admission further complicated by acute kidney injury.? Respiratory status slowly improved as did renal function.? Patient was extubated and downgraded to medical floor, accepted to [facility] transplant services, awaiting bed. acute hypoxic respiratory failure due to TRALI resolved servin cirrhosis [facility] continue midodrine, lactulose, rifaximin hypothyroid synthroid DM insulin dvt prophylaxis - mechanical due to elevated inr from cirrhosis full code reason for continued hospitalization:awaiting transfer Time Spent With Patient Time: Total time managing care of this patient today ____ minutes. Quality Stroke Does the patient have a stroke diagnosis?: No VTE Prior VTE?: No VTE Risk Level:: Medical - moderate - high VTE Device Contraindication: N/A - Device Ordered VTE Drug Contraindication: Treatment Not Indicated
[2022-07-04] MEDS: Insulin Lispro 100 UNIT/ML 3 ML VIAL SUBCUT ×2 (12:20→20:11)
[2022-07-04] MEDS: Omeprazole 20 MG CAPSULE.DR PO (14:55)
[2022-07-04] MEDS: Acetaminophen 325 MG TABLET 650 MG PO (14:55)
[2022-07-04 15:37] LABS: Glucose, Whole Blood 168 mg/dL (60-115)
--- NOTE | 2022-07-04 19:09 | PC.NURSE ---
Pt alert and oriented x2-3. Pt has poor apetite and not eating much. Blood sugars in the 100s. 1600 blood sugar 168-Insulin not given per due to poor PO intake. Pt has a Nazario Cath draining concentrated urine. Rectal tube in place but removed at 1730 due pt being uncomfortable.
[2022-07-04 19:37] LABS: Glucose, Whole Blood 156 mg/dL (60-115)
[2022-07-05 03:10] VITALS: BP 108/56; PULSE 87; RESP 17; TEMP 36.2; O2SAT 93
[2022-07-05] MEDS: Omeprazole 20 MG CAPSULE.DR PO (05:41)
[2022-07-05] MEDS: Levothyroxine Sodium 50 MCG TABLET PO (05:41)
[2022-07-05 06:00] VITALS: BMI 47.9
[2022-07-05 07:14] LABS: Glucose, Whole Blood 129 mg/dL (60-115)
[2022-07-05 07:42] VITALS: BP 105/60; PULSE 78; RESP 18; TEMP 36.6; O2SAT 96
[2022-07-05] MEDS: Lactulose 20 GM/30 ML SOLUTION PO ×2 (08:19→20:42)
[2022-07-05] MEDS: 0.9 % Sodium Chloride Flush 3 ML SYRINGE IVFLUSH ×2 (08:19→15:36)
[2022-07-05] MEDS: Midodrine HCl 10 MG TABLET PO ×3 (08:20→20:42)
[2022-07-05] MEDS: rifAXIMin 550 MG TABLET PO ×2 (08:20→20:42)
[2022-07-05] MEDS: Thiamine HCL 100 MG TABLET PO (08:20)
[2022-07-05] MEDS: Acetaminophen 325 MG TABLET 650 MG PO (08:20)
--- NOTE | 2022-07-05 10:10 | P.PNIM_ITS ---
Subjective Subjective Date of Service: 07/05/22 Interval History: sob improved, feeling weak Physical Exam Vital Signs: Vital Signs: Last Vital Signs Temp 97.8 F 07/05/22 07:42 Pulse 78 07/05/22 07:42 Resp 18 07/05/22 07:42 BP 105/60 07/05/22 07:42 Pulse Ox 96 07/05/22 07:42 O2 Del Method 07/05/22 03:10 O2 Flow Rate 2 07/04/22 07:23 FiO2 32 07/02/22 04:00 BMI result Body Mass Index 47.9 frail, juandiced, abd soft, cta bilateral lungs, diffuse weakness Objective Data Active Medications Acetaminophen (Acetaminophen 325 Mg Tablet) 650 mg PO Q6H PRN PRN Reason: Pain, Moderate (Pain Scale 4-6 Last Admin: 07/05/22 08:20 Dose: 650 mg Documented By: JOSE ALBERTO Albuterol Sulfate (Albuterol Sulfate (0.083%) 2.5 Mg/3 Ml Vial.Neb) 2.5 mg INHALE Q4H PRN PRN Reason: Shortness of Breath/Wheezing Last Admin: 07/02/22 11:12 Dose: 2.5 mg Documented By: EMILIANO Glucose (Glucose Gel 15 Gm Gel..Gram.) 15 gm PO Q15M PRN; Protocol PRN Reason: per Hypoglycemia Standing Ord. Insulin Human Lispro (Insulin Lispro 100 Unit/Ml 3 Ml Vial) 0 unit SUBCUT QIDACHS [facility]; Protocol Last Admin: 07/05/22 07:44 Dose: Not Given Documented By: JOSE ALBERTO Non-Admin Reason: No Insulin Coverage Lactulose (Lactulose 20 Gm/30 Ml Solution) 20 gm PO BID [facility] Last Admin: 07/05/22 08:19 Dose: 20 gm Documented By: JOSE ALBERTO Levothyroxine Sodium (Levothyroxine Sodium 50 Mcg Tablet) 50 mcg PO DAILY@0600 [facility] Last Admin: 07/05/22 05:41 Dose: 50 mcg Documented By: SUZIE Midodrine (Midodrine Hcl 10 Mg Tablet) 10 mg PO TID [facility] Last Admin: 07/05/22 08:20 Dose: 10 mg Documented By: JOSE ALBERTO Omeprazole (Omeprazole 20 Mg Antony.) 20 mg PO DAILY@0630 [facility] Last Admin: 07/05/22 05:41 Dose: 20 mg Documented By: SUZIE Pharmacy Consult (Consult Rx Perform Med Rec) 1 each MISCELLANE ONCE PRN PRN Reason: Consult order Rifaximin (Rifaximin 550 Mg Tablet) 550 mg PO BID [facility] Last Admin: 07/05/22 08:20 Dose: 550 mg Documented By: JOSE ALBERTO Sodium Chloride (0.9 % Sodium Chloride Flush 3 Ml Syringe) 3 ml IVFLUSH QSHIFT [facility] Last Admin: 07/05/22 08:19 Dose: 3 ml Documented By: JOSE ALBERTO Thiamine HCl (Thiamine Hcl 100 Mg Tablet) 100 mg PO DAILY [facility] Last Admin: 07/05/22 08:20 Dose: 100 mg Documented By: JOSE ALBERTO Labs 07/04/22 06:24 07/04/22 06:24 Labs: Laboratory Results - last 24 hr 07/04/22 07/04/22 07/04/22 11:16 15:33 19:21 POC Glucose 163 H 168 H 156 H 07/05/22 07:11 POC Glucose 129 H Assessment and Plan (1) Acute respiratory failure with hypoxia: Status: Acute Plan 47-year-old female with history of uncontrolled insulin-dependent type 2 diabetes, hyperlipidemia, hypertension, 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 Patient was admitted for symptomatic ascites in the setting of SERVIN associated liver cirrhosis complicated by hypotension status post 9 L paracentesis.? Patient then noted to have acute on chronic anemia likely due to inflammation/dilution.? She was given blood transfusion and developed TRALI/ acute hypoxic respiratory failure requiring intubation and ICU admission further complicated by acute kidney injury.? Respiratory status slowly improved as did renal function.? Patient was extubated and downgraded to medical floor, accepted to [facility] transplant services, awaiting bed. acute hypoxic respiratory failure due to TRALI resolved servin cirrhosis plan for transfer to [facility] for transplant eval continue midodrine, lactulose, rifaximin hypothyroid synthroid DM insulin dvt prophylaxis - mechanical due to elevated inr from cirrhosis full code reason for continued hospitalization:awaiting transfer Time Spent With Patient Time: Total time managing care of this patient today ____ minutes. Quality Stroke Does the patient have a stroke diagnosis?: No VTE Prior VTE?: No VTE Risk Level:: Medical - moderate - high VTE Device Contraindication: N/A - Device Ordered VTE Drug Contraindication: Treatment Not Indicated
--- NOTE | 2022-07-05 10:17 | MHC.CM.PN ---
pt dcd to [facility]
--- NOTE | 2022-07-05 10:19 | MHC.CM.PN ---
pt to be transferred to [facility]
[2022-07-05 11:02] LABS: Glucose, Whole Blood 122 mg/dL (60-115)
[2022-07-05 12:00] VITALS: BP 113/64; PULSE 81; TEMP 36.7; O2SAT 95
[2022-07-05 15:32] VITALS: BP 103/66; PULSE 93; RESP 17; TEMP 36.6; O2SAT 93
[2022-07-05 16:07] LABS: Glucose, Whole Blood 162 mg/dL (60-115)
[2022-07-05] MEDS: Insulin Lispro 100 UNIT/ML 3 ML VIAL SUBCUT ×2 (16:43→20:42)
[2022-07-05 18:59] VITALS: BP 102/62; PULSE 89; RESP 17; TEMP 36.1; O2SAT 92
[2022-07-05 19:28] LABS: Glucose, Whole Blood 151 mg/dL (60-115)
[2022-07-05 23:56] VITALS: BP 118/62; PULSE 84; RESP 18; TEMP 36.6; O2SAT 92
[2022-07-06] VITALS (7 sets, daily range): BP systolic 85–122; BP diastolic 49–64; PULSE 64–88; RESP 16–18; TEMP 36.4–36.8; O2SAT 92–97; BMI 47.2
[2022-07-06] MEDS: Omeprazole 20 MG CAPSULE.DR PO (05:32)
[2022-07-06] MEDS: Levothyroxine Sodium 50 MCG TABLET PO (05:32)
[2022-07-06] MEDS: 0.9 % Sodium Chloride Flush 3 ML SYRINGE IVFLUSH ×3 (05:33→16:53)
[2022-07-06 07:15] LABS: Hemoglobin 9.4 g/dl (12.0-16.0); PLT CLUMP 1
[2022-07-06 07:17] LABS: Hematocrit 29.4 % (37.0-47.0); Mean Corpuscular Hemoglobin 33.2 pg (27.0-33.0); Mean Corpuscular Volume 103.9 fL (80.0-98.0); Mean Platelet Volume 10.9 fL (9.4-12.3); Red Blood Count 2.83 X10*6/uL (4.20-5.50); Red Cell Distribution Width 18.1 % (11.0-16.0)
[2022-07-06 07:18] LABS: White Blood Count 6.3 X10*3/uL (4.8-10.8)
[2022-07-06 07:19] LABS: Platelet Count 49 X10*3/uL (160-400)
[2022-07-06 07:20] LABS: INTERNATIONAL NORM RATIO 2.1 (0.9-1.1); Prothrombin Time 24.5 SEC (10.0-13.1)
[2022-07-06 07:20] LABS: Glucose, Whole Blood 100 mg/dL (60-115)
[2022-07-06 07:52] LABS: Alanine Aminotransferase 10 U/L (0-31); Alkaline Phosphatase 45 U/L (39-117); Anion Gap 10 (12-20); Aspartate Amino Transferase 41 U/L (5-31); Bilirubin Direct 2.1 mg/dL (0.0-0.5); Bilirubin Total 5.1 mg/dL (0.0-1.0); Blood Urea Nitrogen 20 mg/dL (9-16); Calcium 8.2 mg/dL (8.4-10.2); Carbon Dioxide 31 mmol/L (22-29); Chloride 103 mmol/L (96-108); Creatinine Clr Calc Pharmacy 110.8; Estimated Glomerular Filt Rate > 60; Glucose Fasting 99 mg/dL (60-99); Potassium 2.8 mmol/L (3.3-5.1); Sodium 141 mmol/L (135-145); Total Protein 5.9 g/dL (6.5-8.0)
[2022-07-06] MEDS: rifAXIMin 550 MG TABLET PO ×2 (08:34→22:16)
[2022-07-06] MEDS: Thiamine HCL 100 MG TABLET PO (08:34)
[2022-07-06] MEDS: Lactulose 20 GM/30 ML SOLUTION PO ×2 (08:34→22:16)
[2022-07-06] MEDS: Midodrine HCl 10 MG TABLET PO ×3 (08:34→22:16)
--- NOTE | 2022-07-06 10:43 | HO.PM.IMPN ---
Subjective Subjective Date of Service: 07/06/22 Interval History: sob improved, feeling weak Physical Exam Vital Signs: Vital Signs: Last Vital Signs Temp 98.2 F 07/06/22 08:00 Pulse 88 07/06/22 08:00 Resp 16 07/06/22 08:00 BP 85/49 L 07/06/22 08:00 Pulse Ox 94 07/06/22 08:00 O2 Del Method 07/06/22 08:00 O2 Flow Rate 2 07/04/22 07:23 FiO2 32 07/02/22 04:00 BMI result Body Mass Index 47.2 frail, juandiced, abd soft, cta bilateral lungs, diffuse weakness Objective Data Active Medications Acetaminophen (Acetaminophen 325 Mg Tablet) 650 mg PO Q6H PRN PRN Reason: Pain, Moderate (Pain Scale 4-6 Last Admin: 07/05/22 08:20 Dose: 650 mg Documented By: JOSE ALBERTO Albuterol Sulfate (Albuterol Sulfate (0.083%) 2.5 Mg/3 Ml Vial.Neb) 2.5 mg INHALE Q4H PRN PRN Reason: Shortness of Breath/Wheezing Last Admin: 07/02/22 11:12 Dose: 2.5 mg Documented By: EMILIANO Glucose (Glucose Gel 15 Gm Gel..Gram.) 15 gm PO Q15M PRN; Protocol PRN Reason: per Hypoglycemia Standing Ord. Insulin Human Lispro (Insulin Lispro 100 Unit/Ml 3 Ml Vial) 0 unit SUBCUT QIDACHS [facility]; Protocol Last Admin: 07/06/22 08:35 Dose: Not Given Documented By: YOEL Non-Admin Reason: No Insulin Coverage Lactulose (Lactulose 20 Gm/30 Ml Solution) 20 gm PO BID [facility] Last Admin: 07/06/22 08:34 Dose: 20 gm Documented By: YOEL Levothyroxine Sodium (Levothyroxine Sodium 50 Mcg Tablet) 50 mcg PO DAILY@0600 [facility] Last Admin: 07/06/22 05:32 Dose: 50 mcg Documented By: ZORAIDA Midodrine (Midodrine Hcl 10 Mg Tablet) 10 mg PO TID [facility] Last Admin: 07/06/22 08:34 Dose: 10 mg Documented By: YOEL Omeprazole (Omeprazole 20 Mg Capsule.) 20 mg PO DAILY@0630 [facility] Last Admin: 07/06/22 05:32 Dose: 20 mg Documented By: ZORAIDA Pharmacy Consult (Consult Rx Perform Med Rec) 1 each MISCELLANE ONCE PRN PRN Reason: Consult order Rifaximin (Rifaximin 550 Mg Tablet) 550 mg PO BID [facility] Last Admin: 07/06/22 08:34 Dose: 550 mg Documented By: YOEL Sodium Chloride (0.9 % Sodium Chloride Flush 3 Ml Syringe) 3 ml IVFLUSH QSHIFT [facility] Last Admin: 07/06/22 08:35 Dose: 3 ml Documented By: YOEL Thiamine HCl (Thiamine Hcl 100 Mg Tablet) 100 mg PO DAILY [facility] Last Admin: 07/06/22 08:34 Dose: 100 mg Documented By: YOEL Labs 07/06/22 06:51 07/06/22 06:51 Labs: Laboratory Results - last 24 hr 07/05/22 07/05/22 07/05/22 10:57 16:04 19:03 MCV MCH MCHC RDW Plt Count MPV Absolute Nucleated RBC Nucleated RBC % (auto) PT INR Anion Gap Estim Creat Clear Calc Estimated GFR POC Glucose 122 H 162 H 151 H Fasting Glucose Calcium Total Bilirubin Direct Bilirubin AST ALT Alkaline Phosphatase Total Protein Albumin 07/06/22 07/06/22 07/06/22 06:51 06:51 06:51 MCV 103.9 H MCH 33.2 H MCHC 32.0 RDW 18.1 H Plt Count 49 L MPV 10.9 Absolute Nucleated RBC 0.000 Nucleated RBC % (auto) 0.0 PT 24.5 H INR 2.1 H Anion Gap 10 L Estim Creat Clear Calc 110.8 Estimated GFR > 60 POC Glucose Fasting Glucose 99 Calcium 8.2 L Total Bilirubin 5.1 H Direct Bilirubin 2.1 H AST 41 H ALT 10 Alkaline Phosphatase 45 Total Protein 5.9 L Albumin 3.0 L 07/06/22 07:16 MCV MCH MCHC RDW Plt Count MPV Absolute Nucleated RBC Nucleated RBC % (auto) PT INR Anion Gap Estim Creat Clear Calc Estimated GFR POC Glucose 100 Fasting Glucose Calcium Total Bilirubin Direct Bilirubin AST ALT Alkaline Phosphatase Total Protein Albumin Assessment and Plan (1) Acute respiratory failure with hypoxia: Status: Acute Plan 47-year-old female with history of uncontrolled insulin-dependent type 2 diabetes, hyperlipidemia, hypertension, 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 Patient was admitted for symptomatic ascites in the setting of SERVIN associated liver cirrhosis complicated by hypotension status post 9 L paracentesis.? Patient then noted to have acute on chronic anemia likely due to inflammation/dilution.? She was given blood transfusion and developed TRALI/ acute hypoxic respiratory failure requiring intubation and ICU admission further complicated by acute kidney injury.? Respiratory status slowly improved as did renal function.? Patient was extubated and downgraded to medical floor, accepted to [facility] transplant services, awaiting bed. acute hypoxic respiratory failure due to TRALI resolved hypokalemia replace and monitor servin cirrhosis plan for transfer to [facility] for transplant eval continue midodrine, lactulose, rifaximin hypothyroid synthroid DM insulin dvt prophylaxis - mechanical due to elevated inr from cirrhosis full code reason for continued hospitalization:awaiting transfer Time Spent With Patient Time: Total time managing care of this patient today ____ minutes. Quality Stroke Does the patient have a stroke diagnosis?: No VTE Prior VTE?: No VTE Risk Level:: Medical - moderate - high VTE Device Contraindication: N/A - Device Ordered VTE Drug Contraindication: Treatment Not Indicated
[2022-07-06 11:03] LABS: Glucose, Whole Blood 103 mg/dL (60-115)
[2022-07-06] MEDS: Potassium Chloride ER 20 MEQ TAB.ER.PRT 40 MEQ PO (11:03)
--- NOTE | 2022-07-06 12:24 | PC.NURSE ---
Patient requested to be helped out of bed to the recliner. With assistance of walker and staff x3 patient was able to stand up three times. She was not able to take a step, after third attempt patient was too tired and was helped back to bed.
[2022-07-06 16:10] LABS: Glucose, Whole Blood 98 mg/dL (60-115)
[2022-07-06 20:11] LABS: Glucose, Whole Blood 128 mg/dL (60-115)
[2022-07-07 03:14] VITALS: BP 100/57; PULSE 82; RESP 18; TEMP 36.7; O2SAT 95
[2022-07-07 06:00] VITALS: BMI 47.5
[2022-07-07] MEDS: Omeprazole 20 MG CAPSULE.DR PO (06:20)
[2022-07-07] MEDS: Levothyroxine Sodium 50 MCG TABLET PO (06:20)
[2022-07-07 06:29] LABS: Hematocrit 28.1 % (37.0-47.0); Hemoglobin 9.2 g/dl (12.0-16.0); Mean Corpuscular HGB Conc 32.7 g/dl (31.0-35.0); Mean Corpuscular Hemoglobin 33.9 pg (27.0-33.0); Mean Corpuscular Volume 103.7 fL (80.0-98.0); Mean Platelet Volume 10.9 fL (9.4-12.3); Red Blood Count 2.71 X10*6/uL (4.20-5.50); Red Cell Distribution Width 18.5 % (11.0-16.0); White Blood Count 5.4 X10*3/uL (4.8-10.8)
[2022-07-07 06:53] LABS: Platelet Count 41 X10*3/uL (160-400)
[2022-07-07 07:15] LABS: Alanine Aminotransferase 8 U/L (0-31); Albumin Level 2.7 g/dL (3.5-5.0); Alkaline Phosphatase 42 U/L (39-117); Anion Gap 11 (12-20); Aspartate Amino Transferase 37 U/L (5-31); Bilirubin Total 4.7 mg/dL (0.0-1.0); Blood Urea Nitrogen 18 mg/dL (9-16); Carbon Dioxide 29 mmol/L (22-29); Chloride 104 mmol/L (96-108); Creatinine Clr Calc Pharmacy 118.9; Estimated Glomerular Filt Rate > 60; Glucose Fasting 96 mg/dL (60-99); Magnesium 1.7 mg/dL (1.6-2.6); Potassium 3.2 mmol/L (3.3-5.1); Sodium 141 mmol/L (135-145); Total Protein 5.4 g/dL (6.5-8.0)
[2022-07-07 07:31] VITALS: BP 100/60; PULSE 83; RESP 16; TEMP 36.7; O2SAT 92
[2022-07-07 07:36] LABS: Glucose, Whole Blood 89 mg/dL (60-115)
[2022-07-07] MEDS: rifAXIMin 550 MG TABLET PO ×2 (07:56→22:08)
[2022-07-07] MEDS: 0.9 % Sodium Chloride Flush 3 ML SYRINGE IVFLUSH ×2 (07:56→16:41)
[2022-07-07] MEDS: Thiamine HCL 100 MG TABLET PO (07:56)
[2022-07-07] MEDS: Midodrine HCl 10 MG TABLET PO ×3 (07:56→22:11)
[2022-07-07] MEDS: Potassium Chloride ER 20 MEQ TAB.ER.PRT 40 MEQ PO (09:13)
[2022-07-07 11:07] LABS: Glucose, Whole Blood 104 mg/dL (60-115)
[2022-07-07 11:19] VITALS: BP 119/48; PULSE 86; RESP 20; TEMP 36.8; O2SAT 93
--- NOTE | 2022-07-07 11:24 | PM.PNNEP ---
Subjective Subjective Date of Service: 07/07/22 Interval history: Events noted Feels better Physical Exam Vital Signs: Vital Signs: Last Vital Signs Temp 98.2 F 07/07/22 11:19 Pulse 86 07/07/22 11:19 Resp 20 07/07/22 11:19 BP 119/48 L 07/07/22 11:19 Pulse Ox 93 07/07/22 11:19 O2 Del Method 07/07/22 11:19 O2 Flow Rate 2 07/04/22 07:23 FiO2 32 07/02/22 04:00 BMI result Body Mass Index 47.5 Const: Other: no acute distress General: no acute distress Eyes: General: appearance normal, both eyes and all related structures EOM: EOMs intact bilaterally Neck: Neck: Yes supple Resp: Other: clear to auscultation bilaterally. No rales rhonchi or wheezes Auscultation: diminished lung sounds Cardio: Other: no S4; positive S1-S2; no S3 murmurs rubs or gallops Rate: regular rate GI: Other: soft nontender nondistended normoactive bowel sounds Palpation (GI): Soft to palpation Skin: General skin exam: no rashes or lesions noted Neuro: General: moves all extremities Extrem: Other: no edema bilaterally Objective Data Labs 07/07/22 06:18 07/07/22 06:18 Labs: Laboratory Results - last 24 hr 07/06/22 07/06/22 07/07/22 16:01 20:07 06:18 WBC 5.4 RBC 2.71 L Hgb 9.2 L Hct 28.1 L MCV 103.7 H MCH 33.9 H MCHC 32.7 RDW 18.5 H Plt Count 41 L MPV 10.9 Absolute Nucleated RBC 0.000 Nucleated RBC % (auto) 0.0 Sodium Potassium Chloride Carbon Dioxide Anion Gap BUN Creatinine Estim Creat Clear Calc Estimated GFR POC Glucose 98 128 H Fasting Glucose Calcium Magnesium Total Bilirubin Direct Bilirubin AST ALT Alkaline Phosphatase Total Protein Albumin 07/07/22 07/07/22 07/07/22 06:18 07:29 11:00 WBC RBC Hgb Hct MCV MCH MCHC RDW Plt Count MPV Absolute Nucleated RBC Nucleated RBC % (auto) Sodium 141 Potassium 3.2 L Chloride 104 Carbon Dioxide 29 Anion Gap 11 L BUN 18 H Creatinine 0.74 Estim Creat Clear Calc 118.9 Estimated GFR > 60 POC Glucose 89 104 Fasting Glucose 96 Calcium 8.0 L Magnesium 1.7 Total Bilirubin 4.7 H Direct Bilirubin 2.0 H AST 37 H ALT 8 Alkaline Phosphatase 42 Total Protein 5.4 L Albumin 2.7 L Microbiology Microbiology Results: Microbiology 06/24/22 14:38 Blood - Central Line Blood Culture - Final No growth after 5 days. 06/24/22 14:39 Blood - Central Line Blood Culture - Final No growth after 5 days. 06/22/22 15:05 Peritoneal Fluid Gram Stain - Final 06/22/22 15:05 Peritoneal Fluid Routine Culture - Final No growth after 2 days 06/22/22 15:05 Peritoneal Fluid Anaerobic Culture - Final NO GROWTH AFTER 5 DAYS Procedures Date of Service Date of Service: 07/07/22 Assessment & Plan Assessment and plan (1) Acute on chronic kidney failure: Status: Acute Assessment and Plan: Non-Oliguric DULCE:? most c/w HRSyn but now significant? risk for further DULCE from ischemic ATN; initially was c/w HRS and large Vol Paracentesis possible precipitating HRS Currently Renal function stable; Replace K as needed C/W current supportive management Time Spent With Patient Time: Total time managing care of this patient today ____ minutes. Progress Note: Quality Stroke Does the patient have a stroke diagnosis?: No
--- NOTE | 2022-07-07 12:24 | P.PNIM_ITS ---
Subjective Subjective Date of Service: 07/07/22 Interval History: sob improved, feeling weak Physical Exam Vital Signs: Vital Signs: Last Vital Signs Temp 98.2 F 07/07/22 11:19 Pulse 86 07/07/22 11:19 Resp 20 07/07/22 11:19 BP 119/48 L 07/07/22 11:19 Pulse Ox 93 07/07/22 11:19 O2 Del Method 07/07/22 11:19 O2 Flow Rate 2 07/04/22 07:23 FiO2 32 07/02/22 04:00 BMI result Body Mass Index 47.5 Const: Other: no acute distress General: no acute distress Eyes: General: appearance normal, both eyes and all related structures EOM: EOMs intact bilaterally Neck: Neck: Yes supple Resp: Other: clear to auscultation bilaterally. No rales rhonchi or wheezes Auscultation: diminished lung sounds Cardio: Other: no S4; positive S1-S2; no S3 murmurs rubs or gallops Rate: regular rate GI: Other: soft nontender nondistended normoactive bowel sounds Palpation (GI): Soft to palpation Skin: General skin exam: no rashes or lesions noted Neuro: General: moves all extremities Extrem: Other: no edema bilaterally Objective Data Active Medications Acetaminophen (Acetaminophen 325 Mg Tablet) 650 mg PO Q6H PRN PRN Reason: Pain, Moderate (Pain Scale 4-6 Last Admin: 07/05/22 08:20 Dose: 650 mg Documented By: JOSE ALBERTO Albuterol Sulfate (Albuterol Sulfate (0.083%) 2.5 Mg/3 Ml Vial.Neb) 2.5 mg INHALE Q4H PRN PRN Reason: Shortness of Breath/Wheezing Last Admin: 07/02/22 11:12 Dose: 2.5 mg Documented By: EMILIANO Glucose (Glucose Gel 15 Gm Gel..Gram.) 15 gm PO Q15M PRN; Protocol PRN Reason: per Hypoglycemia Standing Ord. Insulin Human Lispro (Insulin Lispro 100 Unit/Ml 3 Ml Vial) 0 unit SUBCUT QIDACHS [facility]; Protocol Last Admin: 07/07/22 11:14 Dose: Not Given Documented By: SIMONA Non-Admin Reason: No Insulin Coverage Lactulose (Lactulose 20 Gm/30 Ml Solution) 20 gm PO BID [facility] Last Admin: 07/07/22 11:14 Dose: Not Given Documented By: SIMONA Non-Admin Reason: Patient Refused Levothyroxine Sodium (Levothyroxine Sodium 50 Mcg Tablet) 50 mcg PO DAILY@0600 [facility] Last Admin: 07/07/22 06:20 Dose: 50 mcg Documented By: PAULA Midodrine (Midodrine Hcl 10 Mg Tablet) 10 mg PO TID [facility] Last Admin: 07/07/22 07:56 Dose: 10 mg Documented By: SIMONA Omeprazole (Omeprazole 20 Mg Capsule.) 20 mg PO DAILY@0630 [facility] Last Admin: 07/07/22 06:20 Dose: 20 mg Documented By: PAULA Pharmacy Consult (Consult Rx Perform Med Rec) 1 each MISCELLANE ONCE PRN PRN Reason: Consult order Rifaximin (Rifaximin 550 Mg Tablet) 550 mg PO BID [facility] Last Admin: 07/07/22 07:56 Dose: 550 mg Documented By: SIMONA Sodium Chloride (0.9 % Sodium Chloride Flush 3 Ml Syringe) 3 ml IVFLUSH QSHIFT [facility] Last Admin: 07/07/22 07:56 Dose: 3 ml Documented By: SIMONA Thiamine HCl (Thiamine Hcl 100 Mg Tablet) 100 mg PO DAILY [facility] Last Admin: 07/07/22 07:56 Dose: 100 mg Documented By: SIMONA Labs 07/07/22 06:18 07/07/22 06:18 Labs: Laboratory Results - last 24 hr 07/06/22 07/06/22 07/07/22 16:01 20:07 06:18 MCV 103.7 H MCH 33.9 H MCHC 32.7 RDW 18.5 H Plt Count 41 L MPV 10.9 Absolute Nucleated RBC 0.000 Nucleated RBC % (auto) 0.0 Anion Gap Estim Creat Clear Calc Estimated GFR POC Glucose 98 128 H Fasting Glucose Calcium Magnesium Total Bilirubin Direct Bilirubin AST ALT Alkaline Phosphatase Total Protein Albumin 07/07/22 07/07/22 07/07/22 06:18 07:29 11:00 MCV MCH MCHC RDW Plt Count MPV Absolute Nucleated RBC Nucleated RBC % (auto) Anion Gap 11 L Estim Creat Clear Calc 118.9 Estimated GFR > 60 POC Glucose 89 104 Fasting Glucose 96 Calcium 8.0 L Magnesium 1.7 Total Bilirubin 4.7 H Direct Bilirubin 2.0 H AST 37 H ALT 8 Alkaline Phosphatase 42 Total Protein 5.4 L Albumin 2.7 L Assessment and Plan (1) Acute respiratory failure with hypoxia: Status: Acute Plan 47-year-old female with history of uncontrolled insulin-dependent type 2 diabetes, hyperlipidemia, hypertension, 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 Patient was admitted for symptomatic ascites in the setting of SERVIN associated liver cirrhosis complicated by hypotension status post 9 L paracentesis.? Patient then noted to have acute on chronic anemia likely due to inflammation/dilution.? She was given blood transfusion and developed TRALI/ acute hypoxic respiratory failure requiring intubation and ICU admission further complicated by acute kidney injury.? Respiratory status slowly improved as did renal function.? Patient was extubated and downgraded to medical floor, accepted to [facility] transplant services, awaiting bed. acute hypoxic respiratory failure due to TRALI resolved hypokalemia replace and monitor servin cirrhosis plan for transfer to [facility] for transplant eval continue midodrine, lactulose, rifaximin hypothyroid synthroid DM insulin dvt prophylaxis - mechanical due to elevated inr from cirrhosis full code reason for continued hospitalization:awaiting transfer Time Spent With Patient Time: Total time managing care of this patient today ____ minutes. Quality Stroke Does the patient have a stroke diagnosis?: No VTE Prior VTE?: No VTE Risk Level:: Medical - moderate - high VTE Device Contraindication: N/A - Device Ordered VTE Drug Contraindication: Treatment Not Indicated
--- NOTE | 2022-07-07 13:48 | MHC.CLN ---
F/U PO INTAKE VARIABLE DIET RX: REGULAR-APPROPRIATE PT RECEIVING ENSURE MAX PROTEIN BID TO INCREASE NUTRITIONAL INTAKE. PROVIDES 300 KCALS, 60 G PROTEIN. PT REQUESTING CHANGE IN SUPPLEMENT TO ENSURE STRAWBERRY WILL CHANGE SUPPLEMENT TO ENSURE PLUS HIGH PROTEIN TID TO PROVIDE 1050KCALS, 60G PROTEIN ACCEPTED AT [facility] AND AWAITING BED FOR TRANSFER ENCOURAGE INTAKE AT MEALS/SUPPLEMENT ABLE
[2022-07-07 15:20] VITALS: BP 134/63; PULSE 94; RESP 20; TEMP 36.3; O2SAT 99
[2022-07-07 16:45] LABS: Glucose, Whole Blood 164 mg/dL (60-115)
[2022-07-07] MEDS: Insulin Lispro 100 UNIT/ML 3 ML VIAL SUBCUT (17:32)
[2022-07-07 19:42] VITALS: BP 100/43; PULSE 92; RESP 20; TEMP 36.6; O2SAT 94
[2022-07-07 20:00] LABS: Glucose, Whole Blood 134 mg/dL (60-115)
[2022-07-08] VITALS (7 sets, daily range): BP systolic 92–118; BP diastolic 49–64; PULSE 81–100; RESP 16–20; TEMP 36.4–37.1; O2SAT 93–98; BMI 48.2
[2022-07-08] MEDS: 0.9 % Sodium Chloride Flush 3 ML SYRINGE IVFLUSH ×4 (01:59→22:50)
[2022-07-08] MEDS: Omeprazole 20 MG CAPSULE.DR PO (06:12)
[2022-07-08] MEDS: Levothyroxine Sodium 50 MCG TABLET PO (06:12)
--- NOTE | 2022-07-08 07:37 | PC.NURSE ---
Patient unable to urinate overnight. Bladder scanned for 698 ml. Hospitalist notified , obtained order to straight cath. Patient Str cathed for 400 ml. Tolerated well. Report given to oncoming RN.
[2022-07-08 07:46] LABS: Glucose, Whole Blood 98 mg/dL (60-115)
--- NOTE | 2022-07-08 09:15 | MHC.CM.PN ---
EMR REVIEWED, PT ACCEPTED AT [facility] AND STILL AWAITING BED FOR TRANSFER. CM WILL CONT TO FOLLOW.
[2022-07-08] MEDS: Midodrine HCl 10 MG TABLET PO ×3 (10:30→22:49)
[2022-07-08] MEDS: Thiamine HCL 100 MG TABLET PO (10:30)
[2022-07-08] MEDS: Acetaminophen 325 MG TABLET 650 MG PO (10:38)
[2022-07-08 11:25] LABS: Glucose, Whole Blood 131 mg/dL (60-115)
--- NOTE | 2022-07-08 11:33 | PM.PNNEP ---
Subjective Subjective Date of Service: 07/09/22 Interval history: sob improved, feeling weak Physical Exam Vital Signs: Vital Signs: Last Vital Signs Temp 98.2 F 07/08/22 11:25 Pulse 100 07/08/22 11:25 Resp 20 07/08/22 11:25 BP 113/59 L 07/08/22 11:25 Pulse Ox 93 07/08/22 11:25 O2 Del Method 07/08/22 11:25 O2 Flow Rate 2 07/04/22 07:23 FiO2 32 07/02/22 04:00 BMI result Body Mass Index 48.2 Const: Other: no acute distress General: no acute distress Eyes: General: appearance normal, both eyes and all related structures EOM: EOMs intact bilaterally Neck: Neck: Yes supple Resp: Other: clear to auscultation bilaterally. No rales rhonchi or wheezes Auscultation: diminished lung sounds Cardio: Other: no S4; positive S1-S2; no S3 murmurs rubs or gallops Rate: regular rate GI: Other: soft nontender nondistended normoactive bowel sounds Palpation (GI): Soft to palpation Skin: General skin exam: no rashes or lesions noted Neuro: General: moves all extremities Extrem: Other: no edema bilaterally Objective Data Labs 07/07/22 06:18 07/07/22 06:18 Labs: Laboratory Results - last 24 hr 07/07/22 07/07/22 07/08/22 16:41 19:57 07:43 POC Glucose 164 H 134 H 98 07/08/22 11:21 POC Glucose 131 H Microbiology Microbiology Results: Microbiology 06/24/22 14:38 Blood - Central Line Blood Culture - Final No growth after 5 days. 06/24/22 14:39 Blood - Central Line Blood Culture - Final No growth after 5 days. 06/22/22 15:05 Peritoneal Fluid Gram Stain - Final 06/22/22 15:05 Peritoneal Fluid Routine Culture - Final No growth after 2 days 06/22/22 15:05 Peritoneal Fluid Anaerobic Culture - Final NO GROWTH AFTER 5 DAYS Procedures Date of Service Date of Service: 07/08/22 Assessment & Plan Assessment and plan (1) Acute on chronic kidney failure: Status: Acute Assessment and Plan: Non-Oliguric DULCE:? most c/w HRSyn but now significant? risk for further DULCE from ischemic ATN; initially was c/w HRS and large Vol Paracentesis possible precipitating HRS Currently Renal function stable; No labs today Replace K as needed C/W current supportive management Time Spent With Patient Time: Total time managing care of this patient today ____ minutes. Progress Note: Quality Stroke Does the patient have a stroke diagnosis?: No
--- NOTE | 2022-07-08 11:51 | P.PNIM_ITS ---
Subjective Subjective Date of Service: 07/08/22 Interval History: sob improved, feeling weak Physical Exam Vital Signs: Vital Signs: Last Vital Signs Temp 98.2 F 07/08/22 11:25 Pulse 100 07/08/22 11:25 Resp 20 07/08/22 11:25 BP 113/59 L 07/08/22 11:25 Pulse Ox 93 07/08/22 11:25 O2 Del Method 07/08/22 11:25 O2 Flow Rate 2 07/04/22 07:23 FiO2 32 07/02/22 04:00 BMI result Body Mass Index 48.2 Const: Other: no acute distress General: no acute distress Eyes: General: appearance normal, both eyes and all related structures EOM: EOMs intact bilaterally Neck: Neck: Yes supple Resp: Other: clear to auscultation bilaterally. No rales rhonchi or wheezes Auscultation: diminished lung sounds Cardio: Other: no S4; positive S1-S2; no S3 murmurs rubs or gallops Rate: regular rate GI: Other: soft nontender nondistended normoactive bowel sounds Palpation (GI): Soft to palpation Skin: General skin exam: no rashes or lesions noted Neuro: General: moves all extremities Extrem: Other: no edema bilaterally Objective Data Active Medications Acetaminophen (Acetaminophen 325 Mg Tablet) 650 mg PO Q6H PRN PRN Reason: Pain, Moderate (Pain Scale 4-6 Last Admin: 07/08/22 10:38 Dose: 650 mg Documented By: GEETHA Albuterol Sulfate (Albuterol Sulfate (0.083%) 2.5 Mg/3 Ml Vial.Neb) 2.5 mg INHALE Q4H PRN PRN Reason: Shortness of Breath/Wheezing Last Admin: 07/02/22 11:12 Dose: 2.5 mg Documented By: EMILIANO Glucose (Glucose Gel 15 Gm Gel..Gram.) 15 gm PO Q15M PRN; Protocol PRN Reason: per Hypoglycemia Standing Ord. Insulin Human Lispro (Insulin Lispro 100 Unit/Ml 3 Ml Vial) 0 unit SUBCUT QIDACHS ON LICENSE OF [facility]; Protocol Last Admin: 07/08/22 11:32 Dose: Not Given Documented By: GEETHA Non-Admin Reason: No Insulin Coverage Lactulose (Lactulose 20 Gm/30 Ml Solution) 20 gm PO BID ON LICENSE OF [facility] Last Admin: 07/08/22 10:30 Dose: Not Given Documented By: GEETHA Non-Admin Reason: Patient Refused Levothyroxine Sodium (Levothyroxine Sodium 50 Mcg Tablet) 50 mcg PO DAILY@0600 ON LICENSE OF [facility] Last Admin: 07/08/22 06:12 Dose: 50 mcg Documented By: SARINA Midodrine (Midodrine Hcl 10 Mg Tablet) 10 mg PO TID ON LICENSE OF [facility] Last Admin: 07/08/22 10:30 Dose: 10 mg Documented By: GEETHA Omeprazole (Omeprazole 20 Mg Antony.) 20 mg PO DAILY@0630 ON LICENSE OF [facility] Last Admin: 07/08/22 06:12 Dose: 20 mg Documented By: SARINA Pharmacy Consult (Consult Rx Perform Med Rec) 1 each MISCELLANE ONCE PRN PRN Reason: Consult order Sodium Chloride (0.9 % Sodium Chloride Flush 3 Ml Syringe) 3 ml IVFLUSH QSHIFT ON LICENSE OF [facility] Last Admin: 07/08/22 10:30 Dose: 3 ml Documented By: GEETHA Thiamine HCl (Thiamine Hcl 100 Mg Tablet) 100 mg PO DAILY ON LICENSE OF [facility] Last Admin: 07/08/22 10:30 Dose: 100 mg Documented By: GEETHA Labs 07/07/22 06:18 07/07/22 06:18 Labs: Laboratory Results - last 24 hr 07/07/22 07/07/22 07/08/22 16:41 19:57 07:43 POC Glucose 164 H 134 H 98 07/08/22 11:21 POC Glucose 131 H Assessment and Plan (1) Acute respiratory failure with hypoxia: Status: Acute Plan 47-year-old female with history of uncontrolled insulin-dependent type 2 diabetes, hyperlipidemia, hypertension, 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 Patient was admitted for symptomatic ascites in the setting of SERVIN associated liver cirrhosis complicated by hypotension status post 9 L paracentesis.? Patient then noted to have acute on chronic anemia likely due to inflammation/dilution.? She was given blood transfusion and developed TRALI/ acute hypoxic respiratory failure requiring intubation and ICU admission further complicated by acute kidney injury.? Respiratory status slowly improved as did renal function.? Patient was extubated and downgraded to medical floor, accepted to [facility] transplant services, awaiting bed. acute hypoxic respiratory failure due to TRALI resolved hypokalemia replace and monitor servin cirrhosis plan for transfer to [facility] for transplant eval continue midodrine, lactulose, rifaximin hypothyroid synthroid DM insulin dvt prophylaxis - mechanical due to elevated inr from cirrhosis full code reason for continued hospitalization:awaiting transfer Time Spent With Patient Time: Total time managing care of this patient today ____ minutes. Quality Stroke Does the patient have a stroke diagnosis?: No VTE Prior VTE?: No VTE Risk Level:: Medical - moderate - high VTE Device Contraindication: N/A - Device Ordered VTE Drug Contraindication: Treatment Not Indicated
[2022-07-08 16:13] LABS: Glucose, Whole Blood 155 mg/dL (60-115)
[2022-07-08] MEDS: Ondansetron ODT 4 MG TAB.RAPDIS TRANSLINGU (17:01)
[2022-07-08] MEDS: Insulin Lispro 100 UNIT/ML 3 ML VIAL SUBCUT (17:02)
[2022-07-08 19:50] LABS: Glucose, Whole Blood 126 mg/dL (60-115)
--- NOTE | 2022-07-08 20:07 | PM.EVENT ---
Event Note Date of Service: 07/08/22 Event Note: Retaining urine, has required multiple straight caths. Will order Nazario catheter Time Spent With Patient Time: Total time managing care of this patient today ____ minutes.
[2022-07-09] VITALS (7 sets, daily range): BP systolic 105–120; BP diastolic 55–67; PULSE 85–97; RESP 14–20; TEMP 36.3–37.3; O2SAT 92–95; BMI 47.7
[2022-07-09] MEDS: Omeprazole 20 MG CAPSULE.DR PO (06:12)
[2022-07-09] MEDS: Levothyroxine Sodium 50 MCG TABLET PO (06:12)
[2022-07-09 07:07] LABS: Hematocrit 28.6 % (37.0-47.0); Hemoglobin 9.2 g/dl (12.0-16.0); Mean Corpuscular HGB Conc 32.2 g/dl (31.0-35.0); Mean Corpuscular Hemoglobin 33.5 pg (27.0-33.0); Mean Platelet Volume 11.2 fL (9.4-12.3); Platelet Count 48 X10*3/uL (160-400); Red Blood Count 2.75 X10*6/uL (4.20-5.50); Red Cell Distribution Width 18.8 % (11.0-16.0); White Blood Count 4.4 X10*3/uL (4.8-10.8)
[2022-07-09 07:17] LABS: Alanine Aminotransferase 9 U/L (0-31); Alkaline Phosphatase 50 U/L (39-117); Anion Gap 14 (12-20); Aspartate Amino Transferase 39 U/L (5-31); Bilirubin Direct 2.3 mg/dL (0.0-0.5); Bilirubin Total 5.7 mg/dL (0.0-1.0); Blood Urea Nitrogen 15 mg/dL (9-16); Carbon Dioxide 27 mmol/L (22-29); Chloride 103 mmol/L (96-108); Creatinine Clr Calc Pharmacy 107.5; Estimated Glomerular Filt Rate > 60; Glucose Fasting 87 mg/dL (60-99); Potassium 3.6 mmol/L (3.3-5.1); Sodium 140 mmol/L (135-145); Total Protein 6.2 g/dL (6.5-8.0)
[2022-07-09 07:50] LABS: Prothrombin Time 23.2 SEC (10.0-13.1)
[2022-07-09 07:52] LABS: Glucose, Whole Blood 95 mg/dL (60-115)
[2022-07-09] MEDS: Thiamine HCL 100 MG TABLET PO (08:41)
[2022-07-09] MEDS: Midodrine HCl 10 MG TABLET PO ×3 (08:41→23:57)
[2022-07-09] MEDS: Docusate Sodium 100 MG CAPSULE PO ×2 (08:51→23:57)
[2022-07-09] MEDS: Lactulose 20 GM/30 ML SOLUTION PO (08:53)
[2022-07-09] MEDS: Glycerin Adult SUPP.RECT 1 SUPP PR (09:47)
--- NOTE | 2022-07-09 10:53 | PM.PNNEP ---
Subjective Subjective Date of Service: 07/09/22 Interval history: sob improved, feeling weak Physical Exam Vital Signs: Vital Signs: Last Vital Signs Temp 98.4 F 07/09/22 07:46 Pulse 86 07/09/22 07:46 Resp 20 07/09/22 07:46 BP 120/67 07/09/22 07:46 Pulse Ox 95 07/09/22 07:46 O2 Del Method 07/09/22 07:46 O2 Flow Rate 2 07/04/22 07:23 FiO2 32 07/02/22 04:00 BMI result Body Mass Index 47.7 Const: Other: no acute distress General: no acute distress Eyes: General: appearance normal, both eyes and all related structures EOM: EOMs intact bilaterally Neck: Neck: Yes supple Resp: Other: clear to auscultation bilaterally. No rales rhonchi or wheezes Auscultation: diminished lung sounds Cardio: Other: no S4; positive S1-S2; no S3 murmurs rubs or gallops Rate: regular rate GI: Other: soft nontender nondistended normoactive bowel sounds Palpation (GI): Soft to palpation Skin: General skin exam: no rashes or lesions noted Neuro: General: moves all extremities Extrem: Other: no edema bilaterally Objective Data Labs 07/09/22 06:22 07/09/22 06:22 Labs: Laboratory Results - last 24 hr 07/08/22 07/08/22 07/08/22 11:21 16:10 19:47 WBC RBC Hgb Hct MCV MCH MCHC RDW Plt Count MPV Absolute Nucleated RBC Nucleated RBC % (auto) PT INR Sodium Potassium Chloride Carbon Dioxide Anion Gap BUN Creatinine Estim Creat Clear Calc Estimated GFR POC Glucose 131 H 155 H 126 H Fasting Glucose Calcium Total Bilirubin Direct Bilirubin AST ALT Alkaline Phosphatase Total Protein Albumin 07/09/22 07/09/22 07/09/22 06:22 06:22 06:22 WBC 4.4 L RBC 2.75 L Hgb 9.2 L Hct 28.6 L MCV 104.0 H MCH 33.5 H MCHC 32.2 RDW 18.8 H Plt Count 48 L MPV 11.2 Absolute Nucleated RBC 0.000 Nucleated RBC % (auto) 0.0 PT 23.2 H INR 2.0 H Sodium 140 Potassium 3.6 Chloride 103 Carbon Dioxide 27 Anion Gap 14 BUN 15 Creatinine 0.82 Estim Creat Clear Calc 107.5 Estimated GFR > 60 POC Glucose Fasting Glucose 87 Calcium 8.0 L Total Bilirubin 5.7 H Direct Bilirubin 2.3 H AST 39 H ALT 9 Alkaline Phosphatase 50 Total Protein 6.2 L Albumin 3.0 L 07/09/22 07:49 WBC RBC Hgb Hct MCV MCH MCHC RDW Plt Count MPV Absolute Nucleated RBC Nucleated RBC % (auto) PT INR Sodium Potassium Chloride Carbon Dioxide Anion Gap BUN Creatinine Estim Creat Clear Calc Estimated GFR POC Glucose 95 Fasting Glucose Calcium Total Bilirubin Direct Bilirubin AST ALT Alkaline Phosphatase Total Protein Albumin Microbiology Microbiology Results: Microbiology 06/24/22 14:38 Blood - Central Line Blood Culture - Final No growth after 5 days. 06/24/22 14:39 Blood - Central Line Blood Culture - Final No growth after 5 days. 06/22/22 15:05 Peritoneal Fluid Gram Stain - Final 06/22/22 15:05 Peritoneal Fluid Routine Culture - Final No growth after 2 days 06/22/22 15:05 Peritoneal Fluid Anaerobic Culture - Final NO GROWTH AFTER 5 DAYS Procedures Date of Service Date of Service: 07/09/22 Assessment & Plan Assessment and plan (1) Acute on chronic kidney failure: Status: Acute Assessment and Plan: Non-Oliguric DULCE:? most c/w HRSyn but now significant? risk for further DULCE from ischemic ATN; initially was c/w HRS and large Vol Paracentesis possible precipitating HRS Currently Renal function stable; Replace K as needed C/W current supportive management I will stop following actively. Please re-consult if necessary. Thank you wall Time Spent With Patient Time: Total time managing care of this patient today ____ minutes. Progress Note: Quality Stroke Does the patient have a stroke diagnosis?: No
--- NOTE | 2022-07-09 11:02 | P.PNIM_ITS ---
Subjective Subjective Date of Service: 07/09/22 Interval History: Seen and evaluated Feels weakness and reporting constipation breathing has improved Review of Systems Review of Systems: Yes all other systems are reviewed and are negative Physical Exam Vital Signs: Vital Signs: Last Vital Signs Temp 98.4 F 07/09/22 07:46 Pulse 86 07/09/22 07:46 Resp 20 07/09/22 07:46 BP 120/67 07/09/22 07:46 Pulse Ox 95 07/09/22 07:46 O2 Del Method 07/09/22 07:46 O2 Flow Rate 2 07/04/22 07:23 FiO2 32 07/02/22 04:00 BMI result Body Mass Index 47.7 Const: Other: Constitutional : Awake, interactive, not in distress Neck : Normal inspection, Supple Cardiovascular : RRR, no JVP, trace bilateral lower extremity edema Respiratory : good bilateral air entry, no crackles, wheezes or rhonchi Gastrointestinal: soft, lax, Normal bowel sounds, distended abdomen with mild amount of ascites, Non tender Skin : Warm, Dry Neurological : Alert & oriented x3, No focal deficit Objective Data Active Medications Acetaminophen (Acetaminophen 325 Mg Tablet) 650 mg PO Q6H PRN PRN Reason: Pain, Moderate (Pain Scale 4-6 Last Admin: 07/08/22 10:38 Dose: 650 mg Documented By: GEETHA Docusate Sodium (Docusate Sodium 100 Mg Capsule) 100 mg PO BID COUNTS INCLUDE 234 BEDS AT THE [facility] Last Admin: 07/09/22 08:51 Dose: 100 mg Documented By: CARMEN Glucose (Glucose Gel 15 Gm Gel..Gram.) 15 gm PO Q15M PRN; Protocol PRN Reason: per Hypoglycemia Standing Ord. Insulin Human Lispro (Insulin Lispro 100 Unit/Ml 3 Ml Vial) 0 unit SUBCUT QIDACHS COUNTS INCLUDE 234 BEDS AT THE [facility]; Protocol Last Admin: 07/09/22 07:58 Dose: Not Given Documented By: CARMEN Non-Admin Reason: poc oor Lactulose (Lactulose 20 Gm/30 Ml Solution) 20 gm PO TID COUNTS INCLUDE 234 BEDS AT THE [facility] Last Admin: 07/09/22 08:53 Dose: 20 gm Documented By: CARMEN Levothyroxine Sodium (Levothyroxine Sodium 50 Mcg Tablet) 50 mcg PO DAILY@0600 COUNTS INCLUDE 234 BEDS AT THE [facility] Last Admin: 07/09/22 06:12 Dose: 50 mcg Documented By: EVELIO Midodrine (Midodrine Hcl 10 Mg Tablet) 10 mg PO TID COUNTS INCLUDE 234 BEDS AT THE [facility] Last Admin: 07/09/22 08:41 Dose: 10 mg Documented By: TOMAS Omeprazole (Omeprazole 20 Mg Capsule.Dr) 20 mg PO DAILY@0630 COUNTS INCLUDE 234 BEDS AT THE [facility] Last Admin: 07/09/22 06:12 Dose: 20 mg Documented By: EVELIO Ondansetron HCl (Ondansetron Odt 4 Mg Tab.Rapdis) 4 mg TRANSLINGU Q8H PRN PRN Reason: nasuea Last Admin: 07/08/22 17:01 Dose: 4 mg Documented By: GEETHA Pharmacy Consult (Consult Rx Perform Med Rec) 1 each MISCELLANE ONCE PRN PRN Reason: Consult order Sodium Chloride (0.9 % Sodium Chloride Flush 3 Ml Syringe) 3 ml IVFLUSH QSHIFT COUNTS INCLUDE 234 BEDS AT THE [facility] Last Admin: 07/09/22 07:25 Dose: Not Given Documented By: CARMEN Non-Admin Reason: See Note Thiamine HCl (Thiamine Hcl 100 Mg Tablet) 100 mg PO DAILY COUNTS INCLUDE 234 BEDS AT THE [facility] Last Admin: 07/09/22 08:41 Dose: 100 mg Documented By: TOMAS Labs 07/09/22 06:22 07/09/22 06:22 Labs: Laboratory Results - last 24 hr 07/08/22 07/08/22 07/08/22 11:21 16:10 19:47 MCV MCH MCHC RDW Plt Count MPV Absolute Nucleated RBC Nucleated RBC % (auto) PT INR Anion Gap Estim Creat Clear Calc Estimated GFR POC Glucose 131 H 155 H 126 H Fasting Glucose Calcium Total Bilirubin Direct Bilirubin AST ALT Alkaline Phosphatase Total Protein Albumin 07/09/22 07/09/22 07/09/22 06:22 06:22 06:22 MCV 104.0 H MCH 33.5 H MCHC 32.2 RDW 18.8 H Plt Count 48 L MPV 11.2 Absolute Nucleated RBC 0.000 Nucleated RBC % (auto) 0.0 PT 23.2 H INR 2.0 H Anion Gap 14 Estim Creat Clear Calc 107.5 Estimated GFR > 60 POC Glucose Fasting Glucose 87 Calcium 8.0 L Total Bilirubin 5.7 H Direct Bilirubin 2.3 H AST 39 H ALT 9 Alkaline Phosphatase 50 Total Protein 6.2 L Albumin 3.0 L 07/09/22 07:49 MCV MCH MCHC RDW Plt Count MPV Absolute Nucleated RBC Nucleated RBC % (auto) PT INR Anion Gap Estim Creat Clear Calc Estimated GFR POC Glucose 95 Fasting Glucose Calcium Total Bilirubin Direct Bilirubin AST ALT Alkaline Phosphatase Total Protein Albumin Assessment and Plan (1) Thrombocytopenia: Status: Acute (2) Hypomagnesemia: Status: Acute (3) Acute respiratory failure with hypoxia: Status: Acute Plan 47-year-old female with history of uncontrolled insulin-dependent type 2 diabetes, hyperlipidemia, hypertension, 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 Patient was admitted for symptomatic ascites in the setting of SERVIN associated liver cirrhosis complicated by hypotension status post 9 L paracentesis.? Patient then noted to have acute on chronic ane asya likely due to inflammation/dilution.? She was given blood transfusion and developed TRALI/ acute hypoxic respiratory failure requiring intubation and ICU admission further complicated by acute kidney injury.? Respiratory status slowly improved as did renal function.? Patient was extubated and downgraded to medical floor, accepted to [facility] transplant services, awaiting bed. acute hypoxic respiratory failure due to TRALI resolved hypokalemia replace and monitor SERVIN cirrhosis plan for transfer to [facility] for transplant eval continue midodrine, lactulose, rifaximin Constipation reporting no BM for 6 days refusing Lactulos since the agree to restart Lactulose, Glycerin supp hypothyroid synthroid DM insulin dvt prophylaxis - mechanical due to elevated inr from cirrhosis full code reason for continued hospitalization:awaiting transfer Time Spent With Patient Time: Total time managing care of this patient today ____ minutes. Quality Stroke Does the patient have a stroke diagnosis?: No VTE Prior VTE?: No VTE Risk Level:: Medical - moderate - high VTE Device Contraindication: N/A - Device Ordered VTE Drug Contraindication: Treatment Not Indicated
--- NOTE | 2022-07-09 11:18 | MHC.CM.PN ---
EMR REVIEWED, PT REMAINS CLEARED FOR ACUTE CARE TXFR TO [facility] AND STILL AWAITING BED FOR TRANSFER, CM WILL CONT TO FOLLOW D/C NEEDS.
[2022-07-09 11:27] LABS: Glucose, Whole Blood 127 mg/dL (60-115)
--- NOTE | 2022-07-09 11:42 | MHC.CLN ---
F/U PO INTAKE 25-75% DIET RX: REGULAR-APPROPRIATE PT RECEIVING ENSURE PLUS HIGH PROTEIN TID PROVIDES 1050KCALS, 60G PROTEIN WITH 100% ACCEPTANCE ACCEPTED AT [facility] AND AWAITING BED FOR TRANSFER ENCOURAGE INTAKE AT MEALS/SUPPLEMENT ABLE
[2022-07-09 15:59] LABS: Glucose, Whole Blood 138 mg/dL (60-115)
[2022-07-09 20:23] LABS: Glucose, Whole Blood 134 mg/dL (60-115)
[2022-07-09] MEDS: 0.9 % Sodium Chloride Flush 3 ML SYRINGE IVFLUSH (23:58)
[2022-07-10 03:09] VITALS: BP 115/60; PULSE 97; RESP 20; TEMP 37.2; O2SAT 92
[2022-07-10 06:00] VITALS: BMI 47.9
[2022-07-10] MEDS: Levothyroxine Sodium 50 MCG TABLET PO (06:53)
[2022-07-10] MEDS: Omeprazole 20 MG CAPSULE.DR PO (06:54)
[2022-07-10 07:21] LABS: Glucose, Whole Blood 91 mg/dL (60-115)
[2022-07-10 08:00] VITALS: BP 103/54; PULSE 93; RESP 18; TEMP 36.9; O2SAT 90
--- NOTE | 2022-07-10 08:26 | PC.RT ---
pt has been refusing to wear cpap since 07/02. Therefore this will be discontinued for non-compliancy
[2022-07-10] MEDS: Thiamine HCL 100 MG TABLET PO (08:36)
[2022-07-10] MEDS: Lactulose 20 GM/30 ML SOLUTION PO ×3 (08:36→19:41)
[2022-07-10] MEDS: 0.9 % Sodium Chloride Flush 3 ML SYRINGE IVFLUSH ×2 (08:36→16:09)
[2022-07-10] MEDS: Docusate Sodium 100 MG CAPSULE PO ×2 (08:36→19:41)
[2022-07-10] MEDS: Midodrine HCl 10 MG TABLET PO ×3 (08:36→19:41)
[2022-07-10 12:00] VITALS: BP 105/59; PULSE 91; RESP 18; O2SAT 91
[2022-07-10 12:01] LABS: Glucose, Whole Blood 114 mg/dL (60-115)
--- NOTE | 2022-07-10 14:14 | P.PNIM_ITS ---
Subjective Subjective Date of Service: 07/10/22 Interval History: Seen and evaluated Feels weakness and reporting moving her bowels She is on waiting list to transfer to [facility] breathing has improved Review of Systems Review of Systems: Yes all other systems are reviewed and are negative Physical Exam Vital Signs: Vital Signs: Last Vital Signs Temp 98.4 F 07/10/22 08:00 Pulse 91 07/10/22 12:00 Resp 18 07/10/22 12:00 BP 105/59 L 07/10/22 12:00 Pulse Ox 91 L 07/10/22 12:00 O2 Del Method Room Air 07/10/22 03:09 O2 Flow Rate 2 07/04/22 07:23 FiO2 32 07/02/22 04:00 BMI result Body Mass Index 47.9 Const: Other: Constitutional : Awake, interactive, not in distress Neck : Normal inspection, Supple Cardiovascular : RRR, no JVP, trace bilateral lower extremity edema Respiratory : good bilateral air entry, no crackles, wheezes or rhonchi Gastrointestinal: soft, lax, Normal bowel sounds, distended abdomen with mild- mod amount of ascites, Non tender Skin : Warm, Dry Neurological : Alert & oriented x3, No focal deficit Objective Data Active Medications Acetaminophen (Acetaminophen 325 Mg Tablet) 650 mg PO Q6H PRN PRN Reason: Pain, Moderate (Pain Scale 4-6 Last Admin: 07/08/22 10:38 Dose: 650 mg Documented By: GEETHA Docusate Sodium (Docusate Sodium 100 Mg Capsule) 100 mg PO BID COUNT INCLUDES THE [facility] Last Admin: 07/10/22 08:36 Dose: 100 mg Documented By: JEWELS Glucose (Glucose Gel 15 Gm Gel..Gram.) 15 gm PO Q15M PRN; Protocol PRN Reason: per Hypoglycemia Standing Ord. Insulin Human Lispro (Insulin Lispro 100 Unit/Ml 3 Ml Vial) 0 unit SUBCUT QIDACHS COUNT INCLUDES THE [facility]; Protocol Last Admin: 07/10/22 12:20 Dose: Not Given Documented By: JEWELS Non-Admin Reason: No Insulin Coverage Lactulose (Lactulose 20 Gm/30 Ml Solution) 20 gm PO TID COUNT INCLUDES THE [facility] Last Admin: 07/10/22 08:36 Dose: 20 gm Documented By: JEWELS Levothyroxine Sodium (Levothyroxine Sodium 50 Mcg Tablet) 50 mcg PO DAILY@0600 COUNT INCLUDES THE [facility] Last Admin: 07/10/22 06:53 Dose: 50 mcg Documented By: EVELIO Midodrine (Midodrine Hcl 10 Mg Tablet) 10 mg PO TID COUNT INCLUDES THE [facility] Last Admin: 07/10/22 08:36 Dose: 10 mg Documented By: JEWELS Omeprazole (Omeprazole 20 Mg Capsule.) 20 mg PO DAILY@0630 COUNT INCLUDES THE [facility] Last Admin: 07/10/22 06:54 Dose: 20 mg Documented By: EVELIO Ondansetron HCl (Ondansetron Odt 4 Mg Tab.Rapdis) 4 mg TRANSLINGU Q8H PRN PRN Reason: nasuea Last Admin: 07/08/22 17:01 Dose: 4 mg Documented By: GEETHA Pharmacy Consult (Consult Rx Perform Med Rec) 1 each MISCELLANE ONCE PRN PRN Reason: Consult order Sodium Chloride (0.9 % Sodium Chloride Flush 3 Ml Syringe) 3 ml IVFLUSH QSHIFT COUNT INCLUDES THE [facility] Last Admin: 07/10/22 08:36 Dose: 3 ml Documented By: JEWELS Thiamine HCl (Thiamine Hcl 100 Mg Tablet) 100 mg PO DAILY COUNT INCLUDES THE [facility] Last Admin: 07/10/22 08:36 Dose: 100 mg Documented By: JEWELS Labs 07/09/22 06:22 07/09/22 06:22 Labs: Laboratory Results - last 24 hr 07/09/22 07/09/22 07/10/22 15:54 20:20 07:12 POC Glucose 138 H 134 H 91 07/10/22 11:57 POC Glucose 114 Assessment and Plan (1) 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: Status: Acute Plan 47-year-old female with history of uncontrolled insulin-dependent type 2 diabetes, hyperlipidemia, hypertension, 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 Patient was admitted for symptomatic ascites in the setting of SERVIN associated liver cirrhosis complicated by hypotension status post 9 L paracentesis.? Patient then noted to have acute on chronic anemia likely due to inflammation/dilution.? She was given blood transfusion and developed TRALI/ acute hypoxic respiratory failure requiring intubation and ICU admission further complicated by acute kidney injury.? Respiratory status slowly improved as did renal function.? Patient was extubated and downgraded to medical floor, accepted to [facility] transplant services, awaiting bed. acute hypoxic respiratory failure due to TRALI resolved hypokalemia replace and monitor SERVIN cirrhosis plan for transfer to [facility] for transplant eval continue midodrine, lactulose, rifaximin Constipation reporting no BM for 6 days refusing Lactulos since the agree to restart Lactulose, Glycerin supp hypothyroid synthroid DM insulin dvt prophylaxis - mechanical due to elevated inr from cirrhosis full code reason for continued hospitalization:awaiting transfer Time Spent With Patient Time: Total time managing care of this patient today ____ minutes. Quality Stroke Does the patient have a stroke diagnosis?: No VTE Prior VTE?: No VTE Risk Level:: Medical - moderate - high VTE Device Contraindication: N/A - Device Ordered VTE Drug Contraindication: Treatment Not Indicated
[2022-07-10 14:21] VITALS: BP 105/59; PULSE 91; O2SAT 91
[2022-07-10 15:49] VITALS: BP 118/58; PULSE 92; RESP 17; TEMP 36.9; O2SAT 95
[2022-07-10 15:54] LABS: Glucose, Whole Blood 130 mg/dL (60-115)
[2022-07-10 19:30] VITALS: BP 110/61; PULSE 88; RESP 17; TEMP 37; O2SAT 93
[2022-07-10] MEDS: Insulin Lispro 100 UNIT/ML 3 ML VIAL SUBCUT (19:40)
[2022-07-10 20:26] LABS: Glucose, Whole Blood 156 mg/dL (60-115)
[2022-07-11] VITALS (8 sets, daily range): BP systolic 102–137; BP diastolic 53–78; PULSE 78–100; RESP 18–20; TEMP 36.7–37.1; O2SAT 92–98; BMI 48.5
[2022-07-11] MEDS: 0.9 % Sodium Chloride Flush 3 ML SYRINGE IVFLUSH ×4 (00:42→22:30)
[2022-07-11] MEDS: Omeprazole 20 MG CAPSULE.DR PO (05:13)
[2022-07-11] MEDS: Levothyroxine Sodium 50 MCG TABLET PO (05:13)
[2022-07-11 07:38] LABS: Glucose, Whole Blood 90 mg/dL (60-115)
[2022-07-11] MEDS: Lactulose 20 GM/30 ML SOLUTION PO ×2 (09:32→16:59)
[2022-07-11] MEDS: Thiamine HCL 100 MG TABLET PO (09:33)
[2022-07-11] MEDS: Furosemide 40 MG/4 ML VIAL IVPUSH (09:33)
[2022-07-11] MEDS: Spironolactone 25 MG TABLET PO (09:33)
[2022-07-11] MEDS: Midodrine HCl 10 MG TABLET PO ×3 (09:33→22:30)
[2022-07-11] MEDS: Docusate Sodium 100 MG CAPSULE PO ×2 (09:33→22:30)
[2022-07-11 11:03] LABS: Glucose, Whole Blood 119 mg/dL (60-115)
--- NOTE | 2022-07-11 11:48 | MHC.CLN ---
F/U PO INTAKE VARIABLE BETWEEN 25-100% DIET RX: REGULAR-APPROPRIATE PT RECEIVING ENSURE PLUS HIGH PROTEIN TID PROVIDES 1050KCALS, 60G PROTEIN WITH 100% ACCEPTANCE ENCOURAGE INTAKE AT MEALS/SUPPLEMENT ABLE
--- NOTE | 2022-07-11 14:03 | HO.PM.IMPN ---
Subjective Subjective Date of Service: 07/11/22 Interval History: Seen and evaluated building up fluids in abdomen moving her bowels breathing has improved She is on waiting list to transfer to [facility] Review of Systems Review of Systems: Yes all other systems are reviewed and are negative Physical Exam Vital Signs: Vital Signs: Last Vital Signs Temp 98.4 F 07/11/22 11:37 Pulse 99 07/11/22 11:37 Resp 18 07/11/22 11:37 BP 102/58 L 07/11/22 11:37 Pulse Ox 92 07/11/22 11:37 O2 Del Method Room Air 07/11/22 11:37 O2 Flow Rate 2 07/04/22 07:23 FiO2 32 07/02/22 04:00 BMI result Body Mass Index 48.5 Const: Other: Constitutional : Awake, interactive, not in distress Neck : Normal inspection, Supple Cardiovascular : RRR, no JVP, trace bilateral lower extremity edema Respiratory : good bilateral air entry, no crackles, wheezes or rhonchi Gastrointestinal: soft, lax, Normal bowel sounds, distended abdomen with mild-mod amount of ascites, Non tender Skin : Warm, Dry Neurological : Alert & oriented x3, No focal deficit Objective Data Active Medications Acetaminophen (Acetaminophen 325 Mg Tablet) 650 mg PO Q6H PRN PRN Reason: Pain, Moderate (Pain Scale 4-6 Last Admin: 07/08/22 10:38 Dose: 650 mg Documented By: GEETHA Docusate Sodium (Docusate Sodium 100 Mg Capsule) 100 mg PO BID [facility] Last Admin: 07/11/22 09:33 Dose: 100 mg Documented By: JEWELS Furosemide (Furosemide 40 Mg Tablet) 40 mg PO DAILY [facility]; Protocol Glucose (Glucose Gel 15 Gm Gel..Gram.) 15 gm PO Q15M PRN; Protocol PRN Reason: per Hypoglycemia Standing Ord. Insulin Human Lispro (Insulin Lispro 100 Unit/Ml 3 Ml Vial) 0 unit SUBCUT QIDACHS [facility]; Protocol Last Admin: 07/11/22 11:24 Dose: Not Given Documented By: JEWELS Non-Admin Reason: No Insulin Coverage Lactulose (Lactulose 20 Gm/30 Ml Solution) 20 gm PO TID [facility] Last Admin: 07/11/22 09:32 Dose: 20 gm Documented By: JEWELS Levothyroxine Sodium (Levothyroxine Sodium 50 Mcg Tablet) 50 mcg PO DAILY@0600 [facility] Last Admin: 07/11/22 05:13 Dose: 50 mcg Documented By: SHANA Midodrine (Midodrine Hcl 10 Mg Tablet) 10 mg PO TID [facility] Last Admin: 07/11/22 09:33 Dose: 10 mg Documented By: JEWELS Omeprazole (Omeprazole 20 Mg Capsule.Dr) 20 mg PO DAILY@0630 [facility] Last Admin: 07/11/22 05:13 Dose: 20 mg Documented By: SHANA Ondansetron HCl (Ondansetron Odt 4 Mg Tab.Rapdis) 4 mg TRANSLINGU Q8H PRN PRN Reason: nasuea Last Admin: 07/08/22 17:01 Dose: 4 mg Documented By: GEETHA Pharmacy Consult (Consult Rx Perform Med Rec) 1 each MISCELLANE ONCE PRN PRN Reason: Consult order Sodium Chloride (0.9 % Sodium Chloride Flush 3 Ml Syringe) 3 ml IVFLUSH QSHIFT [facility] Last Admin: 07/11/22 09:33 Dose: 3 ml Documented By: JEWELS Spironolactone (Spironolactone 25 Mg Tablet) 25 mg PO DAILY [facility]; Protocol Last Admin: 07/11/22 09:33 Dose: 25 mg Documented By: JEWELS Thiamine HCl (Thiamine Hcl 100 Mg Tablet) 100 mg PO DAILY [facility] Last Admin: 07/11/22 09:33 Dose: 100 mg Documented By: JEWELS Labs 07/09/22 06:22 07/09/22 06:22 Labs: Laboratory Results - last 24 hr 07/10/22 07/10/22 07/11/22 15:51 19:33 07:35 POC Glucose 130 H 156 H 90 07/11/22 10:59 POC Glucose 119 H Assessment and Plan (1) Thrombocytopenia: Status: Acute (2) 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: Status: Acute Plan 47-year-old female with history of uncontrolled insulin-dependent type 2 diabetes, hyperlipidemia, hypertension, liver cirrhosis secondary to ESRVIN requiring frequent paracentesis, chronic thrombocytopenia, AMY, PCOS with acromegaly, nontoxic multinodular goiter, and asthma presented to the ED for evaluation of abdominal distension. Patient was admitted for symptomatic ascites in the setting of SERVIN associated liver cirrhosis complicated by hypotension status post 9 L paracentesis.? Patient then noted to have acute on chronic anemia likely due to inflammation/dilution.? She was given blood transfusion and developed TRALI/ acute hypoxic respiratory failure requiring intubation and ICU admission further complicated by acute kidney injury.? Respiratory status slowly improved as did renal function.? Patient was extubated and downgraded to medical floor, accepted to [facility] transplant services, awaiting bed. acute hypoxic respiratory failure due to TRALI resolved hypokalemia replace and monitor SERVIN cirrhosis w ascites plan for transfer to [facility] for transplant eval continue midodrine, lactulose, rifaximin start Spironolactone lasix 40 mg monitor fluid status Constipation moving bowels, Lactulose, Glycerin supp hypothyroid synthroid DM insulin dvt prophylaxis - mechanical due to elevated inr from cirrhosis full code reason for continued hospitalization:awaiting transfer Time Spent With Patient Time: Total time managing care of this patient today ____ minutes. Quality Stroke Does the patient have a stroke diagnosis?: No VTE Prior VTE?: No VTE Risk Level:: Medical - moderate - high VTE Device Contraindication: N/A - Device Ordered VTE Drug Contraindication: Treatment Not Indicated
[2022-07-11 16:15] LABS: Glucose, Whole Blood 175 mg/dL (60-115)
--- NOTE | 2022-07-11 16:35 | MHC.CM.PN ---
EMR REVIEWED AND PER MD ROUNDS, PT AWAITING BED AT [facility] FOR TRANSPLANT. CM WILL CONTINUE TO FOLLOW.
[2022-07-11] MEDS: Insulin Lispro 100 UNIT/ML 3 ML VIAL SUBCUT (16:59)
[2022-07-11 20:03] LABS: Glucose, Whole Blood 145 mg/dL (60-115)
[2022-07-12 04:00] VITALS: BP 106/59; PULSE 96; RESP 20; TEMP 37.2; O2SAT 91
[2022-07-12] MEDS: Levothyroxine Sodium 50 MCG TABLET PO (05:05)
[2022-07-12] MEDS: Omeprazole 20 MG CAPSULE.DR PO (05:05)
[2022-07-12 06:00] VITALS: BMI 48.4
[2022-07-12 07:37] LABS: Glucose, Whole Blood 98 mg/dL (60-115)
[2022-07-12 08:00] VITALS: BP 106/58; PULSE 95; RESP 20; TEMP 37.2; O2SAT 93
[2022-07-12 08:24] LABS: Anion Gap 13 (12-20); Blood Urea Nitrogen 10 mg/dL (9-16); Calcium 8.2 mg/dL (8.4-10.2); Carbon Dioxide 28 mmol/L (22-29); Chloride 100 mmol/L (96-108); Creatinine Clr Calc Pharmacy 115.6; Estimated Glomerular Filt Rate > 60; Glucose Random 92 mg/dL (60-115); Potassium 3.6 mmol/L (3.3-5.1); Sodium 137 mmol/L (135-145)
--- NOTE | 2022-07-12 08:58 | MHC.CM.PN ---
Patient will dc to [facility] today at noon; transportation was arranged by [facility].
--- NOTE | 2022-07-12 09:23 | P.DS_ITS ---
DS: Providers Provider Date of Service: 07/12/22 Date of admission: 06/21/22 17:09 Primary care physician: Radha Anne MD Consults: 06/21/22 17:20 Consult to Nephrology Routine Consulting Provider: Zana Powell Reason for consultation: DULCE, cirrhosis 06/24/22 13:09 Consult to Cardiology Routine Consulting Provider: Arnie Wood Reason for consultation: DEMETRI for staph bacteremia Has provider been notified: Yes Consult to Gastroenterology Routine Consulting Provider: Sergei Verma Reason for consultation: hepatic failure Has provider been notified: Yes DS: Diagnosis Discharge Diagnosis (1) Thrombocytopenia: Status: Acute (2) 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: Status: Acute (3) Hypomagnesemia: Status: Acute (4) Acute respiratory failure with hypoxia: Status: Acute (5) ARDS (adult respiratory distress syndrome): Status: Acute (6) Acute on chronic kidney failure: Status: Acute DS: Summary Hospital Course Hospital Course: from initial hpi: 47-year-old female with history of uncontrolled insulin-dependent type 2 diabetes, hyperlipidemia, hypertension, 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? She denies any abdominal pain, nausea, vomiting, diarrhea confusion, or lightheadedness.? However she has been experiencing dyspnea on exertion and occasional shortness of breath at rest.? Her legs are significantly swollen making it difficult for her to walk and she feels weak we with tingling in the feet bilaterally which has been chronic.? She was recently discharged on 06/08 and underwent paracentesis with 7.5 L removed which was negative for SBP.? She does continue on spironolactone and Lasix and does have follow-up later in the month with a transplant center in [place] and follows outpatient with Dr. Verma.? During the admission, blood cultures were positive for MSSA and she was started on IV Ancef to be completed on 07/01/2022 followed by Levaquin 500 mg 3 times weekly. In the ED, blood pressure soft, vitals otherwise stable.? No leukocytosis.? Stable normocytic anemia with H/H 9.7/29.6%.? Platelets 35006.? Creatinine 2.00, baseline 0.93, BUN 38.? Sodium 132, potassium 3.7, chloride 92, CO2? 27.? In the ED received albumin. hospital course: Patient was admitted for symptomatic ascites in the setting of SERVIN associated liver cirrhosis complicated by hypotension status post 9 L paracentesis. Patient then noted to have acute on chronic anemia likely due to inflammation/dilution. She was given blood transfusion and developed TRALI/ acute hypoxic respiratory failure requiring intubation and ICU admission further complicated by acute kidney injury which was followed by nephrology team and improved back to normal baseline. Respiratory status slowly improved as did renal function. Patient was extubated. weaned down to room air. Continued on midodrine, Rifaximin and lactulose, spironolactone. For hypothyroidism was continue on Synthroid. Per morbid obesity weight loss is recommended. For diabetes continued on insulin. For AMY on CPAP at night. Discussion was had with liver transplant services at [facility], accepted for transfer. Time Spent with Patient Time attestation: Total time managing care of this patient today ____ minutes. Discharge coordination time: Greater than 30 minutes Quality: Safe Use of Opioids Does Pt have an Active Cancer Diagnosis on the Problem List?: No Quality: Stroke Does the patient have a stroke diagnosis?: No Physical Exam Vital Signs: Vital Signs: Last Vital Signs Temp 98.9 F 07/12/22 08:00 Pulse 95 07/12/22 08:00 Resp 20 07/12/22 08:00 BP 106/58 L 07/12/22 08:00 Pulse Ox 93 07/12/22 08:00 O2 Del Method Room Air 07/12/22 08:00 O2 Flow Rate 2 07/04/22 07:23 FiO2 32 07/02/22 04:00 BMI result Body Mass Index 48.4 Const: Other: Constitutional : Awake, interactive, not in distress Neck : Normal inspection, Supple Cardiovascular : RRR, no JVP, trace bilateral lower extremity edema Respiratory : good bilateral air entry, no crackles, wheezes or rhonchi Gastrointestinal: soft, lax, Normal bowel sounds, distended abdomen with mod amount of ascites, Non tender Skin : Warm, Dry Neurological : Alert & oriented x3, No focal deficit DS: Data Data Completed and Pending Completed studies during hospitalization [Text1]: Procedures Drainage of Peritoneal Cavity, Percutaneous Approach (05/30/22) Insertion of Infusion Device into Right Basilic Vein, Percutaneous Approach (05/30/22) Labs on day of discharge: Laboratory Results - last 24 hr 07/11/22 07/11/22 07/11/22 10:59 16:11 19:31 Sodium Potassium Chloride Carbon Dioxide Anion Gap BUN Creatinine Estim Creat Clear Calc Estimated GFR POC Glucose 119 H 175 H 145 H Random Glucose Calcium 07/12/22 07/12/22 07:33 07:36 Sodium 137 Potassium 3.6 Chloride 100 Carbon Dioxide 28 Anion Gap 13 BUN 10 Creatinine 0.77 Estim Creat Clear Calc 115.6 Estimated GFR > 60 POC Glucose 98 Random Glucose 92 Calcium 8.[address] scan - abdomen: Radiologist's impression: ITS Impressions Paracentesis Ultrasound 06/22/22 11:15 IMPRESSION: Successful ultrasound-guided therapeutic and diagnostic paracentesis performed without immediate complications. Chest X-Ray 06/23/22 22:17 IMPRESSION: Increasing airspace disease in the right lung. Differential would include edema and infectious etiologies. Chest X-Ray 06/24/22 06:10 IMPRESSION: * Lines and tubes as above. * Increasingly coalescent patchy airspace opacities throughout both lungs, particularly the right lung. Multifocal pneumonia or asymmetric edema considered.. Abdomen/Pelvis CT 06/24/22 12:05 IMPRESSION: 1. Endotracheal tube terminates at the level of the ambika. Suggest retraction of 2 cm.. 2. There is complete opacification of the right lung with air bronchograms. There is also dense consolidation of the left lower lobe with air bronchograms. Patchy opacities throughout the left lung with septal thickening and groundglass opacification. These findings may be associated with the clinical history of ARDS, although multifocal pneumonia must be also considered. 3. Cirrhotic liver. Small volume of ascites which has increased from prior. 4. Cholelithiasis. 5. Anasarca. This is greatest along the right chest wall and abdominal wall. 6. The enteric tube extends through the stomach and terminates at the second portion of the duodenum. This critical result was discussed with Kellie Garibay MD by telephone at 06/24/2022 12:53 PM and it was ascertained that the content and urgency of the report was understood at the time of direct communication. Chest CT 06/24/22 12:05 IMPRESSION: 1. Endotracheal tube terminates at the level of the ambika. Suggest retraction of 2 cm.. 2. There is complete opacification of the right lung with air bronchograms. There is also dense consolidation of the left lower lobe with air bronchograms. Patchy opacities throughout the left lung with septal thickening and groundglass opacification. These findings may be associated with the clinical history of ARDS, although multifocal pneumonia must be also considered. 3. Cirrhotic liver. Small volume of ascites which has increased from prior. 4. Cholelithiasis. 5. Anasarca. This is greatest along the right chest wall and abdominal wall. 6. The enteric tube extends through the stomach and terminates at the second portion of the duodenum. This critical result was discussed with Kellie Garibay MD by telephone at 06/24/2022 12:53 PM and it was ascertained that the content and urgency of the report was understood at the time of direct communication. Chest X-Ray 06/25/22 07:17 IMPRESSION: 1. Right lower lobe infiltrate/atelectasis/effusion. The right upper lobe has expanded since the previous CT chest. 2. Hypoexpanded lungs with patchy opacity left lung base likely infiltrate. 3. Endotracheal tube tip is 1.3 cm above the ambika. Enteric tube tip is below diaphragm in stomach. Chest X-Ray 06/27/22 06:45 IMPRESSION: Tubes and catheters as described above. Some mildly increasing opacities here bilaterally as described above. Low lung volumes Discharge Plan Discharge Anticipated Discharge Date/Time: 07/02/22 14:58 Patient Disposition: Xfer Acute Care Hospital Discharge Diagnosis: trali, cirrhosis Referrals: [facility] [Other] - 1 Week Radha Anne MD [Primary Care Provider] - 1 Week Discharge Medications: New midodrine 10 mg Tablet 10 mg PO TID Qty: 0 0RF Xifaxan 550 mg Tablet 550 mg PO BID Qty: 0 0RF Continued lactulose 10 gram/15 mL solution 30 ml PO DAILY PRN (Reason: Constipation) Qty: 946 0RF Toujeo Max U-300 SoloStar 300 unit/mL (3 mL) insulin pen 80 unit subcut BEDTIME omeprazole 40 mg Capsule,Delayed Release(Dr/Ec) 40 mg PO DAILY@0630 Qty: 30 0RF spironolactone 25 mg Tablet 75 mg PO BID@0900,1800 30 Days Qty: 180 0RF Protocol: Hold for SBP< HOLD for SBP < : 90 zinc sulfate 50 mg zinc (220 mg) capsule 1 cap PO DAILY furosemide 20 mg tablet 20 mg PO DAILY ipratropium-albuterol 0.5 mg-3 mg(2.5 mg base)/3 mL solution for nebulization 1 amp inhalation QID PRN (Reason: dyspnea) insulin lispro 100 unit/mL insulin pen 26 unit subcut TIDAC Rx Instructions: 26 units if blood sugar <200; 30 units if blood sugar >200 vitamin E (dl, acetate) 180 mg (400 unit) capsule 1 cap PO BID (DME) FreeStyle Lite Strips Strip See Rx Instructions .ROUTE .MEDSUPPLY Qty: 10 Rx Instructions: test 3x a day (DME) lancets [FreeStyle Lancets] 28 gauge misc See Rx Instructions .ROUTE .MEDSUPPLY Qty: 100 Rx Instructions: test 3x a day albuterol sulfate [Ventolin HFA] 90 mcg/actuation HFA aerosol inhaler 2 puff inhalation Q6H Flovent HFA 220 mcg/actuation HFA aerosol inhaler 2 puff inhalation BID levothyroxine 50 mcg tablet 50 mcg PO DAILY@0600 vitamin A 10,000 unit capsule 1 cap PO DAILY Trulicity 1.5 mg/0.5 mL pen injector 1.5 mg subcut MO@0900 Discontinued lisinopril 2.5 mg tablet 1 tab PO DAILY loratadine 10 mg tablet 1 tab PO DAILY PRN (Reason: Allergy Symptoms) acetaminophen 325 mg tablet 2 tab PO Q8H PRN (Reason: pain) gabapentin 300 mg capsule 300 mg PO BEDTIME Discharge Orders: Discharge Order (Routine); Ordered 07/12/22 Ordered By: Lluvia Nguyen Diet: Diabetic diet Activity on Discharge: As tolerated Stand Alone Forms: Patient Portal Discharge page Care Plan Goals: manage liver cirrhosis Health Concerns: liver cirrhosis Plan of Treatment: transfer to [facility] Assessment: see above
[2022-07-12] MEDS: Thiamine HCL 100 MG TABLET PO (09:32)
[2022-07-12] MEDS: 0.9 % Sodium Chloride Flush 3 ML SYRINGE IVFLUSH (09:32)
[2022-07-12] MEDS: Midodrine HCl 10 MG TABLET PO (09:32)
[2022-07-12] MEDS: Spironolactone 25 MG TABLET PO (09:32)
[2022-07-12] MEDS: Furosemide 40 MG TABLET PO (09:32)
[2022-07-12] MEDS: Docusate Sodium 100 MG CAPSULE PO (09:32)
[2022-07-12 10:59] LABS: Glucose, Whole Blood 91 mg/dL (60-115)
[2022-07-12 11:25] VITALS: BP 116/60; PULSE 92; RESP 17; TEMP 36.1; O2SAT 94
== END 2022-07-12 12:41 | disposition short-term general hospital (02) ==
LOC: HO.ED 16:32 → HO.EDOVER 17:20 → HO.S3 06-22 12:29 → HO.ICU 06-24 01:51 → HO.IMC 07-02 11:03
PROVIDERS: Hospitalist; Internal Medicine; Internal Medicine Cardiovascular Disease; Internal Medicine Nephrology; Internal Medicine Pulmonary Disease; Nurse Practitioner Family; Admitting Provider Physician Assistant; Emergency Provider Emergency Medicine; PCP Family Medicine; Visit Provider Student in an Organized Health Care Education/Training Program
DX: K74.69 Other cirrhosis of liver (principal); N17.0 Acute kidney failure with tubular necrosis; G93.6 Cerebral edema; K76.7 Hepatorenal syndrome; K72.91 Hepatic failure, unspecified with coma; J95.84 Transfusion-related acute lung injury (TRALI); J80 Acute respiratory distress syndrome; D61.818 Other pancytopenia; R78.81 Bacteremia; K76.6 Portal hypertension; K75.81 Nonalcoholic steatohepatitis (NASH); D68.4 Acquired coagulation factor deficiency; E87.1 Hypo-osmolality and hyponatremia; D63.8 Anemia in other chronic diseases classified elsewhere; R18.8 Other ascites; B95.61 Methicillin susceptible Staphylococcus aureus infection as the cause of diseases classified elsewhere; E66.01 Morbid (severe) obesity due to excess calories; E86.1 Hypovolemia; E28.2 Polycystic ovarian syndrome; E11.65 Type 2 diabetes mellitus with hyperglycemia; E03.9 Hypothyroidism, unspecified; E87.6 Hypokalemia; E87.71 Transfusion associated circulatory overload; I95.81 Postprocedural hypotension; T81.10XA Postprocedural shock unspecified, initial encounter; L27.0 Generalized skin eruption due to drugs and medicaments taken internally; T36.1X5A Adverse effect of cephalosporins and other beta-lactam antibiotics, initial encounter; N18.9 Chronic kidney disease, unspecified; E83.42 Hypomagnesemia; K59.00 Constipation, unspecified; E11.22 Type 2 diabetes mellitus with diabetic chronic kidney disease; E78.5 Hyperlipidemia, unspecified; Y84.8 Other medical procedures as the cause of abnormal reaction of the patient, or of later complication, without mention of misadventure at the time of the procedure; J45.40 Moderate persistent asthma, uncomplicated; G47.33 Obstructive sleep apnea (adult) (pediatric); Z68.42 Body mass index [BMI] 45.0-49.9, adult; Z20.822 Contact with and (suspected) exposure to COVID-19; Z87.891 Personal history of nicotine dependence; Z88.0 Allergy status to penicillin; Z88.5 Allergy status to narcotic agent; Z88.6 Allergy status to analgesic agent; Z79.51 Long term (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 inhaled steroids; Z79.4 Long term (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 insulin; Z79.890 Hormone replacement therapy; Z79.899 Other long term (current) drug therapy
CPT/HCPCS: 36415; 49083; 71045; 71250; 74176; 80048; 80053; 80076; 80202; 81001; 82042; 82140; 82565; 82803; 82947; 83735; 84100; 84156; 84300; 84484; 84540; 85025; 85027; 85610; 85730; 86850; 86900; 86901; 86923; 87040; 87070; 87073; 87205; 87635; 89051; 93005; 94002; 94003; 94640; 94660; 94799; 97110; 97162; 97530; 99285; C1729; C1758; J0690; J1940; J1956; J2250; J2251; J2354; J2405; J2930; J3010; J3370; J3371; J3475; P9016; P9047

== ENCOUNTER 2022-09-10 11:48 | Day surgery (SDC) | payer MEDICAID, SELFPAY ==
--- NOTE | ~2022-09-10 | US_ITS ---
EXAMINATION: Ultrasound-guided paracentesis CLINICAL INFORMATION: Fatty liver COMPARISON: Previous paracentesis June 2022 TECHNIQUE: Procedure and risks and benefits including bleeding, infection and low blood pressure were discussed with the patient through an high raw sugar boiler and informed consent was obtained. The left lower quadrant was prepped and draped in the usual sterile fashion. The skin and soft tissues were anesthetized percent lidocaine plain. A sound guidance and a 5 Albanian 1 step system, access to the ascitic fluid was obtained. On 0.1 L of clear dark yellow fluid was removed. No diagnostic specimen was sent. FINDINGS: Small to moderate amount of ascites. US/US paracentesis abd w/image IMPRESSION: Ultrasound-guided paracentesis.
[2022-09-10 12:18] LABS: Glucose, Whole Blood 190 mg/dL (60-115)
[2022-09-10 12:24] VITALS: BP 116/69; PULSE 88; RESP 16; TEMP 35.8; O2SAT 98; BMI 38.1
[2022-09-10 12:59] LABS: MANUAL DIFF FLAG NO
[2022-09-10 13:09] LABS: INTERNATIONAL NORM RATIO 1.5 (0.9-1.1); Prothrombin Time 17.8 SEC (10.0-13.1)
[2022-09-10 13:11] LABS: Partial Thromboplastin Time 30.7 SEC (26.0-36.4)
[2022-09-10 13:15] LABS: Basophils Percent Auto 1.1 % (0-2); Eosinophils Absolute Auto 0.1 X10*3/uL (0.0-0.4); Eosinophils Percent Auto 3.6 % (0-4); Hematocrit 25.8 % (37.0-47.0); Hemoglobin 8.7 g/dl (12.0-16.0); Imm Gran Abs Auto 0.01 X10*3/uL (0.00-0.03); Imm Gran Pct Auto 0.3 % (0.0-0.4); Lymphocytes Absolute Auto 0.4 X10*3/uL (1.2-4.9); Lymphocytes Percent Auto 12.2 % (20-40); Mean Corpuscular HGB Conc 33.7 g/dl (31.0-35.0); Mean Corpuscular Hemoglobin 31.4 pg (27.0-33.0); Mean Corpuscular Volume 93.1 fL (80.0-98.0); Mean Platelet Volume 11.4 fL (9.4-12.3); Monocytes Absolute Auto 0.4 X10*3/uL (0.1-1.2); Neutrophils Absolute Auto 2.6 x10*3/uL (2.0-8.3); Neutrophils Percent Auto 72.8 % (45-73); Red Blood Count 2.77 X10*6/uL (4.20-5.50); White Blood Count 3.6 X10*3/uL (4.8-10.8)
[2022-09-10 13:16] LABS: Platelet Count 48 X10*3/uL (160-400)
--- NOTE | 2022-09-10 14:47 | P.EN_ITS ---
Event Note Date of Service: 09/10/22 Event Note: Patient with decompensated cirrhosis, ongoing issues with refractory ascites, referred for TIPS eval at [facility]. Meantime needs regular scheduled paracentesis. TH Time Spent With Patient Time: Total time managing care of this patient today ____ minutes.
[2022-09-10] MEDS: Lidocaine HCl 1 % MPF 5 ML VIAL SUBCUT (15:39)
[2022-09-10 15:50] VITALS: BP 118/72; PULSE 79; RESP 18; TEMP 37.1; O2SAT 98
[2022-09-10 16:00] VITALS: BP 110/82; PULSE 81; RESP 16; O2SAT 98
[2022-09-10 16:15] VITALS: BP 115/59; PULSE 79; RESP 16; O2SAT 98
[2022-09-10 16:30] VITALS: BP 113/59; PULSE 80; RESP 16; TEMP 36.6; O2SAT 98
== END 2022-09-10 16:43 | disposition home or self-care (01) ==
PROVIDERS: Radiology Diagnostic Radiology; PCP Family Medicine; Visit Provider Internal Medicine Gastroenterology
DX: R18.8 Other ascites (principal); K74.60 Unspecified cirrhosis of liver; K75.81 Nonalcoholic steatohepatitis (NASH)
CPT/HCPCS: 36415; 49083; 82947; 85025; 85610; 85730

== ENCOUNTER 2022-09-29 10:33 | Outpatient (REF) | payer MEDICAID, SELFPAY ==
[2022-09-29 12:04] LABS: MANUAL DIFF FLAG NO
[2022-09-29 12:28] LABS: Basophils Percent Auto 0.8 % (0-2); Eosinophils Absolute Auto 0.1 X10*3/uL (0.0-0.4); Eosinophils Percent Auto 2.5 % (0-4); Hematocrit 29.3 % (37.0-47.0); Hemoglobin 9.9 g/dl (12.0-16.0); Imm Gran Abs Auto 0.03 X10*3/uL (0.00-0.03); Imm Gran Pct Auto 0.6 % (0.0-0.4); Lymphocytes Absolute Auto 0.6 X10*3/uL (1.2-4.9); Lymphocytes Percent Auto 13.3 % (20-40); Mean Corpuscular HGB Conc 33.8 g/dl (31.0-35.0); Mean Corpuscular Hemoglobin 31.8 pg (27.0-33.0); Mean Corpuscular Volume 94.2 fL (80.0-98.0); Mean Platelet Volume 11.3 fL (9.4-12.3); Monocytes Absolute Auto 0.4 X10*3/uL (0.1-1.2); Monocytes Percent Auto 8.8 % (2-11); Neutrophils Absolute Auto 3.5 x10*3/uL (2.0-8.3); Red Blood Count 3.11 X10*6/uL (4.20-5.50); Red Cell Distribution Width 14.9 % (11.0-16.0); White Blood Count 4.8 X10*3/uL (4.8-10.8)
[2022-09-29 12:32] LABS: Platelet Count 66 X10*3/uL (160-400)
[2022-09-29 12:33] LABS: INTERNATIONAL NORM RATIO 1.3 (0.9-1.1); Prothrombin Time 15.3 SEC (10.0-13.1)
[2022-09-29 13:10] LABS: Alanine Aminotransferase 20 U/L (0-31); Albumin Level 3.2 g/dL (3.5-5.0); Alkaline Phosphatase 105 U/L (39-117); Anion Gap 12 (12-20); Aspartate Amino Transferase 45 U/L (5-31); Bilirubin Total 1.9 mg/dL (0.0-1.0); Blood Urea Nitrogen 17 mg/dL (9-16); Carbon Dioxide 25 mmol/L (22-29); Chloride 103 mmol/L (96-108); Estimated Glomerular Filt Rate 46; Glucose Random 74 mg/dL (60-115); Potassium 4.5 mmol/L (3.3-5.1); Sodium 135 mmol/L (135-145); Total Protein 8.6 g/dL (6.5-8.0)
[2022-09-29 13:41] LABS: Ferritin 120 ng/mL (10-250); Folate 14.9 ng/mL (> or = 4.0); Vitamin B12 830 pg/mL (200-900); Vitamin D 25-OH Total 35.6 ng/mL (>30)
[2022-10-03 18:49] LABS: Vitamin K1 802 pg/mL (130-1500)
[2022-10-03 22:33] LABS: Zinc 54 mcg/dL (60-130)
[2022-10-04 11:23] LABS: Vitamin B1 13 nmol/L (8-30)
[2022-10-04 12:22] LABS: Vitamin B6 9.7 ng/mL (2.1-21.7)
[2022-10-05 01:09] LABS: Alpha-Tocopherol 10.3 mg/L (5.7-19.9); Beta-Gamma Tocopherol <1.0 mg/L (<=4.3)
[2022-10-06 01:37] LABS: Vitamin A 22 mcg/dL (38-98)
[2022-10-06 23:18] LABS: Nicotinamide 34 ng/mL; Vit B3 - Nicotinic Acid <20 ng/mL
[2022-10-07 00:48] LABS: Vitamin B5 (Pantothenic Acid) 47 ng/mL (<275)
[2022-10-07 17:33] LABS: Vitamin C 0.9 mg/dL (0.3-2.7)
== END 2022-09-29 10:34 | disposition home or self-care (01) ==
LOC: HO.LAB 10:33
PROVIDERS: PCP Family Medicine; Visit Provider Internal Medicine Gastroenterology
DX: K74.60 Unspecified cirrhosis of liver (principal); K75.81 Nonalcoholic steatohepatitis (NASH); R18.8 Other ascites; D69.6 Thrombocytopenia, unspecified; E66.9 Obesity, unspecified
CPT/HCPCS: 36415; 80053; 82180; 82306; 82607; 82728; 82746; 84207; 84425; 84446; 84590; 84591; 84597; 84630; 85025; 85610; 99212

== ENCOUNTER 2022-10-13 12:25 | Outpatient (REF) | payer MEDICAID, SELFPAY ==
--- NOTE | ~2022-10-13 | MM_ITS ---
EXAMINATION: MM SCREENING DIGITAL BREAST TOMOSYNTHESIS, BILATERAL CLINICAL INFORMATION: Screening. Asymptomatic. The lifetime risk of breast cancer based on the Tyrer-Cuzick Model is 9%. COMPARISON: Mammography: 11/15/2015 (baseline). TECHNIQUE: Digital breast tomosynthesis is performed in both the craniocaudal and mediolateral oblique views along with computer-aided detection (CAD). Synthesized 2D images are generated from the tomosynthesis. Additional right CC and left MLO views are provided. FINDINGS: There are scattered areas of fibroglandular density (ACR BI-RADS breast composition Category b). There are no significant masses, abnormal calcifications, or other abnormalities. Parenchymal pattern is similar to prior studies. There is no developing density or architectural abnormality. The axilla and skin contours are unremarkable. No significant changes. MM/MM tomosynthesis screening BI IMPRESSION: No mammographic evidence of malignancy. ASSESSMENT: BI-RADS 1: Negative RECOMMENDATION: Routine annual mammography screening. This patient's information was entered into a reminder system with a target due date for their next mammogram.
== END 2022-10-13 12:26 | disposition home or self-care (01) ==
LOC: HO.MAMMO 12:25
PROVIDERS: PCP Student in an Organized Health Care Education/Training Program; Visit Provider Family Medicine
DX: Z12.31 Encounter for screening mammogram for malignant neoplasm of breast (principal)
CPT/HCPCS: 77063; 77067

== ENCOUNTER 2022-11-17 11:04 | Day surgery (SDC) | payer MEDICAID, SELFPAY ==
[2022-11-17] VITALS (7 sets, daily range): BP systolic 106–128; BP diastolic 50–81; PULSE 75–85; RESP 16–20; TEMP 36.1–36.5; O2SAT 96–100; BMI 38.1
--- NOTE | ~2022-11-17 | US_ITS ---
PROCEDURE: ULTRASOUND-GUIDED PARACENTESIS CLINICAL INDICATION: Ascites. Jaundice. TECHNIQUE: Following explaining ultrasound-guided paracentesis procedure, benefits and risk, a written consent was obtained. Patient was placed supine on ultrasound stretcher and preliminary ultrasound imaging was performed throughout the abdomen. An optimal site was selected along the right upper quadrant and marked on the skin. The marked site was cleaned and draped in usual sterile manner with 2% chlorhexidine solution. 1% lidocaine was injected at puncture site. Through a small skin incision a 4 [place] [employer] catheter was advanced into the peritoneal space. After observing fluid return stylet was removed and catheter connected to vacuum bottle. After obtaining all fluid and observing no more fluid return, catheter was withdrawn and complete hemostasis achieved at puncture site. A simple Band-Aid applied postprocedure. Patient tolerated procedure extremely well. FINDINGS: On preliminary ultrasound imaging there is a small amount of free fluid in the abdomen. Approximately 2.2 L of clear yellowish fluid was drained from the right upper quadrant. None of this fluid was sent to lab. US/US paracentesis abd w/image IMPRESSION: Successful ultrasound and therapeutic-guided paracentesis performed. Approximately 2.2 L of clear yellowish fluid was drained.
[2022-11-17 12:27] LABS: Glucose, Whole Blood 127 mg/dL (60-115)
[2022-11-17 12:49] LABS: MANUAL DIFF FLAG NO
[2022-11-17 12:51] LABS: Basophils Percent Auto 0.6 % (0-2); Eosinophils Absolute Auto 0.1 X10*3/uL (0.0-0.4); Eosinophils Percent Auto 3.5 % (0-4); Hematocrit 27.6 % (37.0-47.0); Hemoglobin 9.1 g/dl (12.0-16.0); Imm Gran Abs Auto 0.01 X10*3/uL (0.00-0.03); Imm Gran Pct Auto 0.3 % (0.0-0.4); Lymphocytes Absolute Auto 0.5 X10*3/uL (1.2-4.9); Lymphocytes Percent Auto 14.5 % (20-40); Mean Corpuscular Hemoglobin 30.8 pg (27.0-33.0); Mean Corpuscular Volume 93.6 fL (80.0-98.0); Mean Platelet Volume 10.7 fL (9.4-12.3); Monocytes Absolute Auto 0.4 X10*3/uL (0.1-1.2); Monocytes Percent Auto 11.7 % (2-11); Neutrophils Absolute Auto 2.2 x10*3/uL (2.0-8.3); Neutrophils Percent Auto 69.4 % (45-73); Red Blood Count 2.95 X10*6/uL (4.20-5.50); White Blood Count 3.2 X10*3/uL (4.8-10.8)
[2022-11-17 12:52] LABS: Platelet Count 55 X10*3/uL (160-400)
[2022-11-17 13:04] LABS: Anion Gap 12 (12-20); Blood Urea Nitrogen 7 mg/dL (9-16); Carbon Dioxide 21 mmol/L (22-29); Chloride 108 mmol/L (96-108); INTERNATIONAL NORM RATIO 1.4 (0.9-1.1); Potassium 4.3 mmol/L (3.3-5.1); Prothrombin Time 16.5 SEC (11.1-13.3); Sodium 137 mmol/L (135-145)
[2022-11-17 13:07] LABS: Partial Thromboplastin Time 31.5 SEC (26.0-36.4)
[2022-11-17] MEDS: Lidocaine HCl 1 % MPF 5 ML VIAL SUBCUT (14:36)
== END 2022-11-17 16:33 | disposition home or self-care (01) ==
PROVIDERS: Radiology Diagnostic Radiology; PCP Family Medicine; Visit Provider Radiology Diagnostic Radiology
DX: R18.8 Other ascites (principal); K74.60 Unspecified cirrhosis of liver; K75.81 Nonalcoholic steatohepatitis (NASH); E11.21 Type 2 diabetes mellitus with diabetic nephropathy; Z79.4 Long term (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 insulin; I10 Essential (primary) hypertension; E22.0 Acromegaly and pituitary gigantism; E66.01 Morbid (severe) obesity due to excess calories; Z68.36 Body mass index [BMI] 36.0-36.9, adult; D69.6 Thrombocytopenia, unspecified; Z79.899 Other long term (current) drug therapy; Z88.0 Allergy status to penicillin; Z88.8 Allergy status to other drugs, medicaments and biological substances; Z87.891 Personal history of nicotine dependence
CPT/HCPCS: 36415; 49083; 80051; 82947; 84520; 85025; 85610; 85730; C1729

== ENCOUNTER → 2022-11-17 13:31 | Outpatient (BNV) | payer MEDICAID, SELFPAY | PROVIDERS: PCP Family Medicine; Visit Provider Radiology Diagnostic Radiology | DX: R18.8 Other ascites (principal) | CPT/HCPCS: 49083 ==

== ENCOUNTER 2023-01-23 | Outpatient (REF) | payer MEDICAID, SELFPAY | END 2023-01-23 00:01 | LOC: CF | PROVIDERS: PCP Family Medicine; Visit Provider Internal Medicine Gastroenterology | DX: K75.81 Nonalcoholic steatohepatitis (NASH) (principal); K74.60 Unspecified cirrhosis of liver; R18.8 Other ascites; E87.1 Hypo-osmolality and hyponatremia | CPT/HCPCS: 99212 ==

== ENCOUNTER 2023-01-23 11:26 | Outpatient (AMB) | payer MEDICAID, SELFPAY ==
--- NOTE | 2023-01-23 11:35 | A.OFFVIS_ITS ---
Intake Vital Signs 01/23/23 11:45 Height 5 ft 3 in Weight 277 lb BMI 49.1 BP 110/60 Blood Pressure Location Lt brachial Position Sitting Pulse 86 Intake Visit Reasons: 6 week f/u Intake Note: Ema presents in the office as a 6 week follow up. CC: She states that she is not having concerns. Just the fluid - she has para today at 230pm. Home Service Director Required: No Allergies ibuprofen [From MOTRIN] Allergy (Intermediate, Verified 01/23/23 11:48) RASH penicillin V Allergy (Mild, Verified 01/23/23 11:48) hives codeine Allergy (Verified 01/23/23 11:48) Unknown Rx- listed on H&P lidocaine Allergy (Verified 01/23/23 11:48) Blister HPI 6 week f/u HPI Details 47 yr old f here for f/u RECAP: ? Went to ED 10/2018 w epigastric pain ? she had imaging with gallstones, and evidence of cirrhosis ? she was given zofran, and pepcid, carafate ? she denied alcohol use, occ THC, no other illicit drug use ? no Fh of liver issues ? no confusion ? no abdo swelling. ? EGD 01/2019- gastritis , grade I esophageal varices, esophagitis ? I checked h pylori and it was negative ? Suspected to have SERVIN cirrhosis, MELD 15 ? I gave her trental but she felt it gave her side effects so she stopped it, but restarted without any problems SHe had large ascites drained 03/2022--10 L drained, cell count was neg for SBP she was admitted 06/12 with ascites and sob and?found to have GPC in blood cultures?and was on 4 weeks of IV cefazolin ascities were neg for SBP She was admitted with possible TRALI and pneumonia with hypoxic resp failure req ventilation --was transferred to [facility] due to worsening kidney fn and concern for heptorenal syndrome She eventually recovered and now f/u with [facility] for liver transplant eval TESTS: ? LABS: ? igG high ? Silvana, SMA< AMA, SLA, neg ? hiv/hep b/C neg 2018 ? neg for c282y gene ? ferritin 66 ? G2Cj--zfn ? ceruloplasmin--nml ? ? ? Liver bx-09/2019-steatohepatitis with sinusoid and portal fibrosis, bordering on cirrhsois with bridging fibrosis I had reordered labs to get up to date MELD as well as US for HCC screening MELD Na--had been 17 US-03/2021- cirrhosis, cholelithiasis US 02/2022- cirrhosis, gallstones, cirrhosis CT 02/2022- large ascites, cirrhosis, splenomegaly Endo: EGD/colo 09/2021-- small varix, PHG, fair colon prep with normal biopsies EGD 08/2021 and 09/2021 with variceal banding ? ? ? INTERIM: distended and uncomfortable, pending a para tody no pain appetite is fair no fevers or chills no melena, no blood in stools no memory issues, no tremors or shakes occ nausea and non bloody emesis she is on toresmide and aldactone 200 mg daily EXAM: GENERAL: The patient is obese, VITAL SIGNS:see workflow HEENT: Nonicteric sclerae, PERRLA, EOMI. Oropharynx clear. Moist mucous membranes. Conjunctivae appear well perfused. No thyroid mass. CHEST: Chest wall is nontender. HEART: Regular rate and rhythm without murmurs. LUNGS: Clear to auscultation bilaterally. ABDOMEN: possiblel ascites, positive bowel sounds, nontender, no organomegaly.no flank tenderness SKIN: No rash, no excessive bruising, petechiae, or purpura. NEUROLOGIC: Cranial nerves II-XII intact without motor/sensory deficit. Assessment & Plan (1) 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, n ow decompensated with ascites ?? ?SERVIN related given DM and obesity, origin---on transplant list PLAN: 1/ varices--EGD--rept now 2/ obesity--encouraged on further weight loss, exercise 3/ HCC screening--will need repeat imagi ng for HCC, --CT ordered 4/ get labs from [facility] 5/ still needs hep B vaccine at some poi nt, recheck nutrients next visit, has checked recently at [facility] 6/ HE--no evidence of overt HE 7/ Ascite-s----low salt diet, avoid nsai ds, optimize diuretics, paracentesis, ?TIPS will wait to see how she goes with paracentesis PFSH Medical History Acromegaly Asthma Diabetes type 2, uncontrolled Diabetic nephropathy associated with type 2 diabetes mellitus Dyslipidemia Elevated TSH Goiter HTN (hypertension) 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 [facility] (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 insulin Morbid obesity Non-toxic multinodular goiter AMY (obstructive sleep apnea) PCOS (polycystic ovarian syndrome) Status post abdominal paracentesis Surgical History Hx of colonoscopy Hx of endoscopy Family History Father Unknown family medical history Mother Hx of type 1 diabetes mellitus Social History Household Members: Spouse Housing: Apartment Do you presently have visiting nurse or other home services: Yes (2x/week) Alcohol intake: never Patient Tobacco Use Status: Former Tobacco user Quit Date: 7 yrs ago Second Hand Smoke Exposure: Yes Substance Use Type: Marijuana service: No Current occupational status: disabled 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 Physical Exam Vital Signs: Last Vital Signs Pulse 86 01/23/23 11:45 BP 110/60 01/23/23 11:45 BMI result Body Mass Index 49.1 Assessment & Plan Assessment & Plan (1) 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: Code(s): K75.81 - Nonalcoholic steatohepatitis (SERVIN); K74.60 - Unspecified cirrhosis of liver (2) 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: Code(s): K74.60 - Unspecified cirrhosis of liver Qualifiers: Hepatic cirrhosis type: unspecified hepatic cirrhosis Ascites presence: with ascites Qualified Code(s): K74.60 - Unspecified cirrhosis of liver; R18.8 - Other ascites Orders: Orders US paracentesis abd w/image Today K76.9 - Liver disease, unspecified US paracentesis abd w/image 04/17/23 K76.9 - Liver disease, unspecified US paracentesis abd w/image 05/01/23 K76.9 - Liver disease, unspecified CT abdomen wo/w IV con Today E87.1 - Hypo-osmolality and hyponatremia, K74.60 - Unspecified cirrhosis of liver, K75.81 - Nonalcoholic steatohepatitis (SERVIN) US paracentesis abd w/image Today K76.9 - Liver disease, unspecified US paracentesis abd w/image 02/06/23 K76.9 - Liver disease, unspecified US paracentesis abd w/image 02/20/23 K76.9 - Liver disease, unspecified US paracentesis abd w/image 03/06/23 K76.9 - Liver disease, unspecified US paracentesis abd w/image 03/20/23 K76.9 - Liver disease, unspecified US paracentesis abd w/image 04/03/23 K76.9 - Liver disease, unspecified Coding Level of Care Code Est Pt Level 4 (24827) Diagnoses 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 K75.81; K74.60 Cirrhosis of liver with ascites, unspecified hepatic cirrhosis type K74.60; R18.8 Hepatic cirrhosis type: unspecified hepatic cirrhosis Ascites presence: with ascites
[2023-01-23 11:45] VITALS: BP 110/60; PULSE 86; BMI 49.1
== END 2023-01-23 12:43 | disposition home or self-care (01) ==
PROVIDERS: PCP Family Medicine; Visit Provider Internal Medicine Gastroenterology
DX: K75.81 Nonalcoholic steatohepatitis (NASH) (principal); K74.60 Unspecified cirrhosis of liver; R18.8 Other ascites
CPT/HCPCS: 99214

== ENCOUNTER 2023-01-23 12:20 | Day surgery (SDC) | payer MEDICAID, SELFPAY ==
[2023-01-23] VITALS (9 sets, daily range): BP systolic 107–144; BP diastolic 62–76; PULSE 81–89; RESP 14–16; TEMP 36.2–36.4; O2SAT 96–99; BMI 49.1
[2023-01-23 14:14] LABS: Hematocrit 25.4 % (37.0-47.0); Hemoglobin 8.3 g/dl (12.0-16.0); Mean Corpuscular HGB Conc 32.7 g/dl (31.0-35.0); Mean Corpuscular Hemoglobin 30.3 pg (27.0-33.0); Mean Corpuscular Volume 92.7 fL (80.0-98.0); Mean Platelet Volume 10.5 fL (9.4-12.3); Red Blood Count 2.74 X10*6/uL (4.20-5.50); Red Cell Distribution Width 15.2 % (11.0-16.0)
[2023-01-23 14:19] LABS: Platelet Count 58 X10*3/uL (160-400)
[2023-01-23 14:20] LABS: INTERNATIONAL NORM RATIO 1.4 (0.9-1.1); Prothrombin Time 16.5 SEC (11.1-13.3)
[2023-01-23 14:33] LABS: Anion Gap 11 (12-20); Blood Urea Nitrogen 9 mg/dL (9-16); Carbon Dioxide 25 mmol/L (22-29); Chloride 104 mmol/L (96-108); Creatinine Clr Calc Pharmacy 88.7; Estimated Glomerular Filt Rate 59; Potassium 4.1 mmol/L (3.3-5.1); Sodium 136 mmol/L (135-145)
== END 2023-01-23 17:35 | disposition home or self-care (01) ==
PROVIDERS: PCP Family Medicine; Visit Provider Radiology Diagnostic Radiology
DX: R18.8 Other ascites (principal); K75.81 Nonalcoholic steatohepatitis (NASH); K74.60 Unspecified cirrhosis of liver; I10 Essential (primary) hypertension; D69.6 Thrombocytopenia, unspecified; J45.909 Unspecified asthma, uncomplicated; E78.5 Hyperlipidemia, unspecified; E11.21 Type 2 diabetes mellitus with diabetic nephropathy; G47.33 Obstructive sleep apnea (adult) (pediatric); E66.01 Morbid (severe) obesity due to excess calories; Z68.36 Body mass index [BMI] 36.0-36.9, adult; Z79.4 Long term (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 insulin; Z88.0 Allergy status to penicillin; Z88.5 Allergy status to narcotic agent; Z88.8 Allergy status to other drugs, medicaments and biological substances
CPT/HCPCS: 36415; 49083; 80051; 82565; 82947; 84520; 85027; 85610; C1729

== ENCOUNTER → 2023-01-23 14:03 | Outpatient (BNV) | payer MEDICAID, SELFPAY | PROVIDERS: PCP Family Medicine; Visit Provider Radiology Diagnostic Radiology | DX: K74.69 Other cirrhosis of liver (principal) | CPT/HCPCS: 49083 ==

== ENCOUNTER 2023-02-06 12:55 | Day surgery (SDC) | payer MEDICAID, SELFPAY ==
--- NOTE | ~2023-02-06 | US_ITS ---
EXAMINATION: US GUIDED PARACENTESIS CLINICAL INFORMATION: Ascites. COMPARISON: Ultrasound 01/23/2023 TECHNIQUE: Following explaining ultrasound-guided paracentesis procedure, benefits and risk via a geospatial imagery intelligence analyst, a written consent was obtained. Patient was placed supine on ultrasound stretcher and pulmonary ultrasound imaging was obtained through the 4 quadrants of the abdomen. An optimal site was selected along the right lower quadrant and marked on the skin. The marked site was cleaned and draped in usual sterile manner. 1% lidocaine was injected at puncture site. There is small skin incision a long 5 Icelandic Creweh catheter was inserted into the peritoneal space. After observing fluid return, stylet was withdrawn and catheter connected to vacuum bottle via connecting cannula. After draining all fluid and observing no more fluid return, catheter was withdrawn and complete hemostasis achieved at puncture site. Patient tolerated procedure extremely well. Simple Band-Aid applied postprocedure. FINDINGS: On preliminary ultrasound imaging there is moderate free fluid seen in the abdomen. Approximately 7.5 L of clear yellowish fluid was drained from right lower quadrant for therapeutic purposes only. No fluid was sent to lab. US/US paracentesis abd w/image IMPRESSION: Successful ultrasound-guided therapeutic paracentesis performed without immediate complications.
[2023-02-06 13:29] LABS: Glucose, Whole Blood 153 mg/dL (60-115)
[2023-02-06 13:40] VITALS: BMI 48.5
[2023-02-06 16:15] VITALS: BP 122/56; PULSE 87; RESP 16; TEMP 36.2; O2SAT 97
[2023-02-06] MEDS: Lidocaine HCl 1 % 20 ML VIAL 5 ML SUBCUT (16:21)
[2023-02-06 16:45] VITALS: BP 114/57; PULSE 88; RESP 16; O2SAT 97
[2023-02-06 17:08] VITALS: BP 112/52; PULSE 96; RESP 20; TEMP 36.8; O2SAT 96
== END 2023-02-06 17:37 | disposition home or self-care (01) ==
PROVIDERS: Internal Medicine Endocrinology, Diabetes & Metabolism; Internal Medicine Gastroenterology; PCP Family Medicine; Visit Provider Radiology Diagnostic Radiology
DX: R18.8 Other ascites (principal); K75.81 Nonalcoholic steatohepatitis (NASH); K74.60 Unspecified cirrhosis of liver; I10 Essential (primary) hypertension; G47.33 Obstructive sleep apnea (adult) (pediatric); E66.01 Morbid (severe) obesity due to excess calories; Z68.42 Body mass index [BMI] 45.0-49.9, adult; E87.1 Hypo-osmolality and hyponatremia; E11.21 Type 2 diabetes mellitus with diabetic nephropathy; Z79.4 Long term (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 insulin; Z88.0 Allergy status to penicillin; Z88.5 Allergy status to narcotic agent; Z88.8 Allergy status to other drugs, medicaments and biological substances; Z87.891 Personal history of nicotine dependence
CPT/HCPCS: 49083; 82947; C1729

== ENCOUNTER → 2023-02-06 15:00 | Outpatient (BNV) | payer MEDICAID, SELFPAY | PROVIDERS: PCP Family Medicine; Visit Provider Radiology Diagnostic Radiology | DX: R18.8 Other ascites (principal) | CPT/HCPCS: 49083 ==

== ENCOUNTER 2023-02-20 11:16 | Day surgery (SDC) | payer MEDICAID, SELFPAY ==
--- NOTE | ~2023-02-20 | US_ITS ---
ULTRASOUND PARACENTESIS HISTORY: Ascites. Risks and benefits and possible complications were discussed with the patient and consent form was signed. A safe pocket of ascitic fluid was left lower quadrant identified using ultrasound guidance, and the overlying skin marked, prepped and draped in sterile fashion. 1% buffered lidocaine was utilized to anesthetize the skin, subcutaneous tissues, and peritoneal lining. Under direct ultrasound guidance, guidance, a 5 fr catheter was placed into the ascitic pocket. 10.1 liters of yellow fluid was removed passively. The catheter was then removed. A few dental sales representative images from before and after the examination were obtained. The procedure was performed by Jude Stephenson PA-C and supervised by Dr. Bentley. US/US paracentesis abd w/image IMPRESSION: Ultrasound-guided paracentesis as described above. Removal 10.1 L yellowish ascitic fluid. No immediate complications. Fluid was sent for laboratory analysis.
[2023-02-20 12:12] VITALS: BMI 46.4
[2023-02-20 13:35] LABS: Glucose, Whole Blood 179 mg/dL (60-115)
[2023-02-20] MEDS: Lidocaine HCl 1 % MPF 5 ML VIAL SUBCUT (14:03)
[2023-02-20 14:53] VITALS: BP 111/39; PULSE 98; RESP 20; TEMP 36.6; O2SAT 97
[2023-02-20 15:08] VITALS: BP 125/55; PULSE 97; RESP 20; O2SAT 94
[2023-02-20 15:12] LABS: MN% 91.9 %; PMN% 8.1 %; WBC Peritoneal Fluid 0.104 X10*3/uL
[2023-02-20 15:15] VITALS: BP 108/39; PULSE 98; RESP 20; O2SAT 95
[2023-02-20 15:17] LABS: RBC Peritoneal Fluid < 0.002 X10*6/uL
[2023-02-20 15:30] VITALS: BP 119/63; PULSE 100; RESP 20; O2SAT 95
[2023-02-20 15:45] VITALS: BP 114/58; PULSE 99; RESP 20; O2SAT 95
[2023-02-20 16:00] VITALS: BP 109/53; PULSE 100; RESP 20; TEMP 36.8; O2SAT 95
[2023-02-20 16:35] LABS: BF Shift QC OK YES; Lymphocyte Peritoneal Fl 69 %; Man Diluent Bkgrd OK YES; Monocytes Peritoneal Fl 25 %; Neutrophils Peritoneal Fluid 6 %; Other Peritioneal Fl 38 %
== END 2023-02-20 16:15 | disposition home or self-care (01) ==
PROVIDERS: Physician Assistant Surgical; PCP Family Medicine; Visit Provider Radiology Diagnostic Radiology
DX: R18.8 Other ascites (principal); K74.60 Unspecified cirrhosis of liver; K75.81 Nonalcoholic steatohepatitis (NASH); E11.21 Type 2 diabetes mellitus with diabetic nephropathy; Z79.4 Long term (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 insulin; Z88.0 Allergy status to penicillin; Z88.5 Allergy status to narcotic agent; Z88.8 Allergy status to other drugs, medicaments and biological substances; Z87.891 Personal history of nicotine dependence
CPT/HCPCS: 49083; 82947; 89051; C1729; P9047

== ENCOUNTER → 2023-02-20 12:34 | Outpatient (BNV) | payer MEDICAID, SELFPAY | PROVIDERS: PCP Family Medicine; Visit Provider Radiology Diagnostic Radiology | DX: R18.8 Other ascites (principal) | CPT/HCPCS: 49083 ==

== ENCOUNTER → 2023-03-05 08:33 | Day surgery (SDC) | payer MEDICAID, SELFPAY ==
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
--- NOTE | 2023-03-05 10:32 | PC.NURSE ---
Jude MARINELLI gave report to Dr. Cabrera in ER. Patient brought to ER. spouse at bedside. Report given to Rekha Giron RN in ER. No redness, swelling noted to left flank. vs wnl. Jude Stephenson assessed patient in sss.
== END ==
PROVIDERS: PCP Family Medicine; Visit Provider Internal Medicine Gastroenterology
DX: K76.9 Liver disease, unspecified (principal); Z53.8 Procedure and treatment not carried out for other reasons; R10.9 Unspecified abdominal pain

== ENCOUNTER 2023-03-05 10:28 | Emergency (ER) | payer MEDICAID, SELFPAY ==
[2023-03-05] VITALS (8 sets, daily range): BP systolic 119–136; BP diastolic 60–73; PULSE 92–103; RESP 15–20; TEMP 36.3–36.7; O2SAT 92–100; BMI 57.9
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
--- NOTE | ~2023-03-05 | US_ITS ---
ULTRASOUND GUIDED PARACENTESIS HISTORY: Ascites. Risks and benefits and possible complications were discussed with the patient and consent form was signed. A safe pocket of ascitic fluid was identified using ultrasound guidance, and the overlying skin was marked, prepped and draped in sterile fashion. 1% lidocaine was used as a local anesthetic for the skin and subcutaneous tissues including the visceral peritoneum. Using ultrasound guidance, a 5 fr catheter was placed into the right lower quadrant ascitic pocket. 11.0 liters of yellow fluid was removed passively. The catheter was then removed. 75 gram of albumin was ordered. A few ocean import representative images from before and after the examination were obtained. The procedure was performed by Jude Stephenson PA-C and supervised by Dr. Bentley. US/US paracentesis abd w/image IMPRESSION: Ultrasound-guided paracentesis as described above. No immediate complications.
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
[2023-03-05] MEDS: Morphine Sulfate 2 MG/ML CARTRIDGE IVPUSH (11:51)
[2023-03-05 11:53] LABS: MANUAL DIFF FLAG NO
--- NOTE | 2023-03-05 11:53 | PC.NURSE ---
20gIV placed in the right AC w/o difficulty - labs drawn and sent to lab. pt medicated per provider order pt awaiting CT scan at this time/aware of plan of care. resting comfortably in no apparent distress w/ bedside. respirations even and unlabored. call cash placed within reach.
[2023-03-05 11:59] LABS: Basophils Percent Auto 0.4 % (0-2); Eosinophils Absolute Auto 0.1 X10*3/uL (0.0-0.4); Eosinophils Percent Auto 1.6 % (0-4); Hematocrit 23.5 % (37.0-47.0); Hemoglobin 7.5 g/dl (12.0-16.0); Imm Gran Abs Auto 0.02 X10*3/uL (0.00-0.03); Imm Gran Pct Auto 0.4 % (0.0-0.4); Lymphocytes Absolute Auto 0.4 X10*3/uL (1.2-4.9); Lymphocytes Percent Auto 7.3 % (20-40); Mean Corpuscular HGB Conc 31.9 g/dl (31.0-35.0); Mean Corpuscular Hemoglobin 29.6 pg (27.0-33.0); Mean Corpuscular Volume 92.9 fL (80.0-98.0); Mean Platelet Volume 10.1 fL (9.4-12.3); Monocytes Absolute Auto 0.5 X10*3/uL (0.1-1.2); Monocytes Percent Auto 8.4 % (2-11); Neutrophils Absolute Auto 4.6 x10*3/uL (2.0-8.3); Neutrophils Percent Auto 81.9 % (45-73); Red Blood Count 2.53 X10*6/uL (4.20-5.50); Red Cell Distribution Width 15.1 % (11.0-16.0); White Blood Count 5.6 X10*3/uL (4.8-10.8)
[2023-03-05 12:00] LABS: Platelet Count 63 X10*3/uL (160-400)
[2023-03-05 12:03] LABS: INTERNATIONAL NORM RATIO 1.4 (0.9-1.1); Prothrombin Time 17.6 SEC (11.1-13.3)
[2023-03-05 12:12] LABS: Alanine Aminotransferase 18 U/L (0-31); Albumin Level 2.6 g/dL (3.5-5.0); Alkaline Phosphatase 93 U/L (39-117); Anion Gap 7 (12-20); Aspartate Amino Transferase 46 U/L (5-31); Bilirubin Direct 0.6 mg/dL (0.0-0.5); Blood Urea Nitrogen 9 mg/dL (9-16); Calcium 8.2 mg/dL (8.4-10.2); Carbon Dioxide 25 mmol/L (22-29); Chloride 106 mmol/L (96-108); Creatinine Clr Calc Pharmacy 117.1; Estimated Glomerular Filt Rate > 60; Glucose Random 158 mg/dL (60-115); Lipase 16 U/L (8-78); Magnesium 1.8 mg/dL (1.6-2.6); Potassium 3.9 mmol/L (3.3-5.1); Sodium 134 mmol/L (135-145); Total Protein 6.9 g/dL (6.5-8.0)
--- NOTE | 2023-03-05 12:48 | PC.NURSE ---
pt still rating left flank pain at an 8/10 despite medication administration. pt repositioned to comfort. respirations remain even and unlabored. bedside. call cash placed within reach.
[2023-03-05] MEDS: diphenhydrAMINE HCL 50 MG/ML VIAL 25 MG IVPUSH (12:58)
--- NOTE | 2023-03-05 13:05 | PC.NURSE ---
medication administered per provider order. pt awaiting CT scan.
--- NOTE | 2023-03-05 13:40 | PC.NURSE ---
pt returned from CT at this time.
[2023-03-05] MEDS: iohexoL 350 MG/ML 100 ML INFUS..BTL IV (13:44)
--- NOTE | 2023-03-05 15:08 | PC.NURSE ---
vss and up to date at this time. pt verbalizing no change in pain level/. pt awaiting results from CT/aware of plan of care at this time. respirations remain even and unlabored.partner bedside. call cash placed within reach.
[2023-03-05 15:58] LABS: Hematocrit 24.7 % (37.0-47.0); Hemoglobin 7.6 g/dl (12.0-16.0); Mean Corpuscular HGB Conc 30.8 g/dl (31.0-35.0); Mean Corpuscular Hemoglobin 28.9 pg (27.0-33.0); Mean Corpuscular Volume 93.9 fL (80.0-98.0); Mean Platelet Volume 10.8 fL (9.4-12.3); Red Blood Count 2.63 X10*6/uL (4.20-5.50); Red Cell Distribution Width 15.1 % (11.0-16.0); White Blood Count 5.7 X10*3/uL (4.8-10.8)
[2023-03-05 16:01] LABS: Platelet Count 66 X10*3/uL (160-400)
[2023-03-05] MEDS: Albuterol/Iprat 2.5/0.5MG 3 ML AMPUL.NEB INHALE ×2 (16:18→22:48)
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
--- NOTE | 2023-03-05 17:14 | PC.NURSE ---
pt aware she is staying for physician observation at this time - will be transferring to overflow.
--- NOTE | 2023-03-05 17:19 | PC.NURSE ---
report given to RN in overflow - will notify transport.
[2023-03-05] MEDS: oxyCODONE HCl Immed Release 5 MG TABLET PO (17:25)
--- NOTE | 2023-03-05 18:08 | PC.NURSE ---
Pt transferred into bed 1, oriented to room, call cash and staff. Ambulates with 1 assist to bed from stretcher. Pt with congested cough, SOB with exertion. LS dim, rhonchi noted. Per ED RN received updraft prior to transfer. BS+X4 abdomen distended firm denies nausea/vomiting. Per pt c/o pain to left flank previously medicated prior to transfer. Resting in bed alarm on for safety call cash within reach.
--- NOTE | 2023-03-05 19:53 | PHA.MEDREC ---
Pharmacy Consult ? Medication Reconciliation Pharmacy has completed the medication reconciliation. Patient uses [facility]. She states that she is taking 25 of tujeo and 22 of the humalog three times a day with meals. I asked patient to clarify because doses are different that prescribed, but patient states her doctor told her to take it this way. raul
[2023-03-06 06:00] VITALS: BP 127/72; PULSE 101; RESP 22; TEMP 36.4; O2SAT 93
[2023-03-06] MEDS: Omeprazole 40 MG CAPSULE.DR PO (06:09)
[2023-03-06] MEDS: Levothyroxine Sodium 50 MCG TABLET PO (06:09)
[2023-03-06 06:39] VITALS: PULSE 101; RESP 22; O2SAT 93
[2023-03-06] MEDS: Albuterol/Iprat 2.5/0.5MG 3 ML AMPUL.NEB INHALE (06:39)
[2023-03-06 07:26] LABS: Glucose, Whole Blood 157 mg/dL (60-115)
[2023-03-06 07:26] LABS: Glucose, Whole Blood 146 mg/dL (60-115)
[2023-03-06 08:07] VITALS: BP 141/74; PULSE 100; RESP 20; TEMP 36.6; O2SAT 93
[2023-03-06] MEDS: Albuterol Sulfate 90 MCG 8 GM INHALER 2 PUFF INHALE (08:10)
[2023-03-06] MEDS: Potassium Chloride ER 20 MEQ TAB.ER.PRT PO (08:11)
[2023-03-06] MEDS: Cholecalciferol (Vitamin D3) 25 MCG TABLET 50 MCG PO (08:11)
[2023-03-06] MEDS: Spironolactone 25 MG TABLET 200 MG PO (08:11)
[2023-03-06] MEDS: Loratadine 10 MG TABLET PO (08:13)
[2023-03-06 10:07] VITALS: BP 114/51; PULSE 100; RESP 20; TEMP 36.4; O2SAT 95
[2023-03-06] MEDS: Torsemide 20 MG TABLET 40 MG PO (10:09)
[2023-03-06] MEDS: Zinc Sulfate 220 MG CAPSULE PO (10:09)
[2023-03-06] MEDS: Lidocaine HCl 1 % MPF 5 ML VIAL 10 ML SUBCUT (10:14)
[2023-03-06 11:39] LABS: Glucose, Whole Blood 152 mg/dL (60-115)
[2023-03-06 13:40] VITALS: BP 130/62; PULSE 108; RESP 20; TEMP 36.5; O2SAT 96
[2023-03-06 16:59] LABS: Glucose, Whole Blood 133 mg/dL (60-115)
--- NOTE | 2023-03-06 17:01 | MHC.EDTECH ---
pt was assisted to bed side commode. pt was able to ambulate on own and needed little assistance.
== END 2023-03-06 17:49 | disposition home or self-care (01) ==
PROVIDERS: Emergency Provider Emergency Medicine; PCP Family Medicine
DX: R10.9 Unspecified abdominal pain (principal); R18.8 Other ascites; E11.9 Type 2 diabetes mellitus without complications; I10 Essential (primary) hypertension; Z79.899 Other long term (current) drug therapy; Z87.891 Personal history of nicotine dependence; Z79.4 Long term (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 insulin
CPT/HCPCS: 36415; 49083; 74177; 80048; 80076; 82947; 83690; 83735; 85025; 85027; 85610; 94640; 96374; 96375; 99285; C1729; J1200; J2270; P9047; Q9967

== ENCOUNTER → 2023-03-06 08:19 | Outpatient (BNV) | payer MEDICAID, SELFPAY | PROVIDERS: Emergency Provider Emergency Medicine; PCP Family Medicine; Visit Provider Radiology Diagnostic Radiology | DX: R18.8 Other ascites (principal) | CPT/HCPCS: 49083 ==

== ENCOUNTER 2023-04-09 13:00 | Day surgery (SDC) | payer MEDICAID, SELFPAY ==
--- NOTE | ~2023-04-09 | US_ITS ---
Ultrasound paracentesis History: Ascites. Risks and benefits and possible complications were discussed with the patient and consent form was signed. A safe pocket of ascitic fluid was identified using ultrasound guidance, and the overlying skin was marked. The abdomen prepped and draped in sterile fashion. 1% lidocaine was used as a local anesthetic. Using ultrasound guidance, a 5 fr catheter was placed into the ascitic pocket. 6.5 liters of yellow fluid was removed passively. The catheter was then removed. A few personal service representative images from before and after the examination were obtained. The procedure was performed by Jude Stephenson PA-C and supervised by Dr. Oshea. US/US paracentesis abd w/image Impression: Ultrasound-guided paracentesis as described above. No immediate complications
[2023-04-09 13:28] VITALS: BP 119/62; PULSE 98; RESP 18; TEMP 36.2; O2SAT 98; BMI 49.1
[2023-04-09 13:33] LABS: Glucose, Whole Blood 245 mg/dL (60-115)
[2023-04-09] MEDS: Lidocaine HCl 1 % MPF 5 ML VIAL 10 ML SUBCUT (15:22)
[2023-04-09 15:32] VITALS: BP 116/52; RESP 18; O2SAT 96
[2023-04-09 15:45] VITALS: BP 121/58; PULSE 98; RESP 18; TEMP 36.2; O2SAT 98
== END 2023-04-09 16:35 | disposition home or self-care (01) ==
LOC: HO.SSS 13:01
PROVIDERS: PCP Family Medicine; Visit Provider Physician Assistant Surgical
DX: R18.8 Other ascites (principal); K74.60 Unspecified cirrhosis of liver; K75.81 Nonalcoholic steatohepatitis (NASH); E87.1 Hypo-osmolality and hyponatremia; I10 Essential (primary) hypertension; E66.01 Morbid (severe) obesity due to excess calories; Z68.42 Body mass index [BMI] 45.0-49.9, adult; E11.21 Type 2 diabetes mellitus with diabetic nephropathy; Z88.0 Allergy status to penicillin; Z88.8 Allergy status to other drugs, medicaments and biological substances; Z88.5 Allergy status to narcotic agent; J45.909 Unspecified asthma, uncomplicated; Z87.891 Personal history of nicotine dependence
CPT/HCPCS: 49083; 82947; P9047

== ENCOUNTER → 2023-04-09 14:08 | Outpatient (BNV) | payer MEDICAID, SELFPAY | PROVIDERS: PCP Family Medicine; Visit Provider Student in an Organized Health Care Education/Training Program | DX: R18.8 Other ascites (principal) | CPT/HCPCS: 49083 ==

== ENCOUNTER 2023-04-24 09:15 | Day surgery (SDC) | payer MEDICAID, SELFPAY ==
[2023-04-24 09:46] VITALS: BP 145/83; PULSE 105; RESP 18; TEMP 36.9; O2SAT 99
[2023-04-24 09:49] VITALS: BMI 49.1
--- NOTE | 2023-04-24 09:49 | PC.NURSE ---
patient arrived to waiting room nauseous, states has been for a few days. episodes of vomiting yesterday, none witnessed today. patient also states she was seen by specialist at [facility] in [place] yesterday and my blood levels were low and was told i would need blood . no labs ordered for patient today. CHARLA Thomas RN and [employer] [facility] notified via [employer]
[2023-04-24 12:48] VITALS: BP 119/60; PULSE 101; RESP 18; TEMP 36.2; O2SAT 96
[2023-04-24 13:03] VITALS: BP 124/63; PULSE 102; RESP 18; TEMP 36.2; O2SAT 96
== END 2023-04-24 13:20 | disposition home or self-care (01) ==
LOC: HO.SSS 09:16
PROVIDERS: PCP Family Medicine; Visit Provider Physician Assistant Surgical
DX: R18.8 Other ascites (principal); K75.81 Nonalcoholic steatohepatitis (NASH); K74.60 Unspecified cirrhosis of liver; E11.9 Type 2 diabetes mellitus without complications; E66.01 Morbid (severe) obesity due to excess calories; Z68.42 Body mass index [BMI] 45.0-49.9, adult; Z88.0 Allergy status to penicillin; Z88.8 Allergy status to other drugs, medicaments and biological substances; Z88.5 Allergy status to narcotic agent; Z87.891 Personal history of nicotine dependence
CPT/HCPCS: 49083; 82947; C1729; P9047

== ENCOUNTER → 2023-04-24 10:56 | Outpatient (BNV) | payer MEDICAID, SELFPAY | PROVIDERS: PCP Family Medicine; Visit Provider Radiology Diagnostic Radiology | DX: R18.8 Other ascites (principal) | CPT/HCPCS: 49083 ==

== ENCOUNTER 2023-04-24 13:25 | Inpatient (IN) | payer MEDICAID, SELFPAY ==
[2023-04-24] VITALS (11 sets, daily range): BP systolic 122–161; BP diastolic 54–86; PULSE 79–108; RESP 16–24; TEMP 36.1–36.7; O2SAT 95–100; BMI 51.2
--- NOTE | 2023-04-24 16:52 | ED.GENADULT ---
HPI - General Adult General Chief complaint: Recheck/Abnormal Lab/Rx Stated complaint: low blood count ? Time Seen by Provider: 04/24/23 16:04 Source: patient, family, RN notes reviewed, old records reviewed and curriculum consultant Mode of arrival: ambulatory Limitations: language barrier History of Present Illness HPI narrative: 47-year-old female with past medical history significant for CROCKETT, uncontrolled diabetes, obstructive sleep apnea, chronic kidney disease, diabetic neuropathy, PCOS presents for evaluation of ?I need a blood transfusion. ? Patient has severe liver disease related to-requiring frequent paracentesis She gets a paracentesis approximately every 3 weeks and her last paracentesis was this morning, draining 9 L. The patient was seen yesterday at [facility] for a liver transplant consult. The sounds if they had done routine labs and instruct the patient to go to the ER today when the labs resulted showing she is severely anemic Patient's hemoglobin and hematocrit today are 6.1 and 19.8 respectively. Patient denies any obvious bleeding. She states that she occasionally has blood in her sputum when she blows her nose but has not had any severe nosebleeds Denies any black or bloody stool or bloody vomitus She is not on any blood thinners She states that she feels well after having a paracentesis this morning Denies any shortness of breath, weakness, lightheadedness or dizziness Denies any abdominal pain, fevers, chills Patient states that last time she had a blood transfusion a little bit less than a year ago she was ?in a coma for 2 months. ? Records indicate that she received 2 units of packed red blood cells and had in ARDS reaction requiring intubation Related Data Home Medications Medication Instructions Recorded Confirmed albuterol sulfate 90 mcg/actuation 2 puff inhalation Q6H PRN Wheezing 08/16/20 03/05/23 aerosol inhaler (Ventolin HFA) blood sugar diagnostic (FreeStyle #10 ea 08/16/20 08/16/20 Lite Strips) fluticasone propionate 220 2 puff inhalation BID 08/16/20 03/05/23 mcg/actuation HFA aerosol inhaler (Flovent HFA) lancets 28 gauge (FreeStyle #100 ea 08/16/20 08/16/20 Lancets) levothyroxine 50 mcg tablet 50 mcg PO DAILY@0600 11/04/21 03/05/23 insulin glargine U-300 conc 300 25 unit subcut BEDTIME 04/30/22 03/05/23 unit/mL (3 mL) subcutaneous pen (Toujeo Max U-300 SoloStar) insulin lispro 100 unit/mL 22 unit subcut TIDAC 05/31/22 03/05/23 subcutaneous pen ipratropium 0.5 mg-albuterol 3 mg 1 amp inhalation QID PRN dyspnea 05/31/22 03/05/23 (2.5 mg base)/3 mL nebulization soln zinc sulfate 50 mg zinc (220 mg) 1 cap PO DAILY 06/21/22 03/05/23 capsule cholecalciferol (vitamin D3) 50 50 mcg PO DAILY 09/29/22 03/05/23 mcg (2,000 unit) capsule (Vitamin D3) flash glucose sensor (FreeStyle #1 ea 09/29/22 Brooke 2 Sensor kit) loratadine 10 mg tablet 10 mg PO Q OTHER DAY 09/29/22 03/05/23 spironolactone 100 mg tablet 200 mg PO DAILY 09/29/22 03/05/23 pen needle, diabetic 32 gauge x #1,200 ea 01/23/23 (Pentips) potassium chloride 20 mEq 20 meq PO DAILY 01/23/23 03/05/23 tablet,extended release(part/cryst) torsemide 20 mg tablet 40 mg PO DAILY 01/23/23 03/05/23 vitamin A 3,000 mcg (10,000 unit) 1 cap PO DAILY 01/23/23 03/05/23 capsule Previous Rx's Medication Instructions Recorded omeprazole 40 mg capsule,delayed 40 mg PO DAILY@0630 #30 caps 05/05/22 release Allergies Allergy/AdvReac Type Severity Reaction Status Date / Time ibuprofen [From MOTRIN] Allergy Intermediate RASH Verified 01/23/23 11:48 penicillin V Allergy Mild hives Verified 01/23/23 11:48 codeine Allergy Unknown Verified 01/23/23 11:48 Rx- listed on H&P Review of Systems Constitutional: Constitutional: Denies chills, Denies fever(s), Denies headache(s) and Denies malaise ENT: Denies headache(s) Cardiovascular: Cardiovascular: Denies chest pain and Denies dyspnea Respiratory: Respiratory: Denies cough and Denies dyspnea Gastrointestinal: Gastrointestinal: Denies abdominal pain, Denies melena, Denies hematochezia, Denies nausea and Denies vomiting Integumentary/Breasts: Skin/Breast: Denies rash Neurologic: Denies headache(s) PMFSH Past Medical History Onset Date is defined in the Problem List Problems that require an onset date and time if occurred within 24 hrs of arrival to the ED Aortic Dissection and Rupture; Neurologic impairment; Cardiopulmonary Arrest; Endotracheal Intubation; Insertion or Replacement of Mechanical Circulatory Assist Device Medical History Status post abdominal paracentesis HTN (hypertension) AMY (obstructive sleep apnea) Dyslipidemia Asthma Non-toxic multinodular goiter Diabetic nephropathy associated with type 2 diabetes mellitus Elevated TSH Goiter Acromegaly Morbid obesity PCOS (polycystic ovarian syndrome) 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 Diabetes type 2, uncontrolled 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 Surgical History Hx of colonoscopy Hx of endoscopy Family History Family History Father Unknown family medical history Mother Hx of type 1 diabetes mellitus Social History Social History Household Members: Spouse Housing: Apartment Do you presently have visiting nurse or other home services: Yes (2x/week) Alcohol intake: never Patient Tobacco Use Status: Former Tobacco user Quit Date: 7 yrs ago Smoked in Last 30 Days: No Second Hand Smoke Exposure: Yes Use of substances other than those prescribed or required for medical reasons: No Substance Use Type: Marijuana Advance Directives: No Advance Directives Information Provided: No service: No Current occupational status: disabled 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 Physical Exam ED Vital Signs: Vital Signs - 24 hr 04/24/23 13:58 04/24/23 17:04 04/24/23 17:46 Temperature 96.9 F 97.8 F 98.1 F Pulse Rate 105 H 106 H 106 H Respiratory Rate 18 20 22 H Blood Pressure 122/60 131/69 131/61 Pulse Oximetry 100 96 95 Oxygen Delivery Method Room Air Room Air 04/24/23 17:48 04/24/23 17:50 01/05/24 17:53 Temperature 98.1 F 98.1 F 98 F Pulse Rate 107 H 107 H 107 H Respiratory Rate 21 H 24 H 19 Blood Pressure 131/61 139/59 L 131/61 Pulse Oximetry Oxygen Delivery Method 04/24/23 18:08 Temperature 98 F Pulse Rate 107 H Respiratory Rate 20 Blood Pressure 153/68 H Pulse Oximetry Oxygen Delivery Method BMI result Body Mass Index 51.2 Const General: healthy appearing, comfortable, no acute distress, alert and awake Nutritional Appearance: well nourished Orientation/consciousness: patient oriented x3 HENMT Head: Yes normocephalic and Yes atraumatic Eyes Eyelids: Yes eyelids normal Conjunctivae: conjunctivae normal Sclerae: sclerae normal Corneas: corneas normal Pupils: Equal, round and reactive pupils present EOM: EOMs intact bilaterally Neck Neck: Yes full ROM Resp Effort & Inspection: normal respiratory effort, able to speak in complete sentences and not labored GI Other: Morbidly obese abdomen that is soft, nontender, non firm. There is an area in the right mid abdomen with the robot adhesive tissue covering a puncture wound. (patient indicates this is where her paracentesis was this morning) Inspection: Yes Abdominal panniculus present Rectal Exam - Female: visual inspection normal, normal sphincter tone, heme positive stool, No hemorrhoids and other (Light brown stool with no obvious gross blood) Skin General skin exam: elasticity normal Neuro General: patient oriented x3 Cranial nerves: Yes Equal, round and reactive pupils present and Yes Bilaterally intact EOM present Cognition (Neuro): normal cognition Extrem Other: Moving all extremities well without any obvious deformities Course Reevaluation(s) Reevaluation #1: Patient a peeing heme positive, will give a dose of Protonix 40 mg IV in discussed with GI. Time: 17:03 Medications Administered Discontinued Medications Generic Name Dose Route Start Last Admin Trade Name Freq PRN Reason Stop Dose Admin Furosemide 40 mg 04/24/23 16:45 04/24/23 16:59 Furosemide 40 Mg/4 Ml Vial IVPUSH 04/24/23 16:46 40 mg STAT STA Administration Protocol Sodium Chloride 100 mls @ 100 mls/hr 04/24/23 16:25 04/24/23 17:53 Ns IV 04/24/23 17:24 100 mls/hr ONCE ONE Administration Ceftriaxone Sodium 1 gm/ 50 mls @ 100 mls/hr 04/24/23 17:27 04/24/23 18:15 Sodium Chloride IV 04/24/23 17:56 100 mls/hr ONCE ONE Administration Octreotide Acetate 50 mcg 04/24/23 17:38 04/24/23 18:15 Octreotide Acetate 100 Mcg/Ml Ampul IVPUSH 04/24/23 17:39 50 mcg ONCE ONE Administration Pantoprazole Sodium 40 mg 04/24/23 17:00 04/24/23 17:10 Pantoprazole Sodium 40 Mg/10 Ml Vial IVPUSH 04/24/23 17:01 40 mg ONCE ONE Administration Medical Decision Making Medical Decision Making MDM Narrative: 47-year-old female presents for evaluation of acute on chronic anemia. Patient's hemoglobin is 6.1 hematocrit 19.8 which appears to be about 2 points lower than her baseline. She states that she is not symptomatic but it is tough to differentiate. She feels better after having 9 L of fluid drained from her abdomen so she states that she is not currently short of breath. Plan for rectal exam with guaiac, will transfuse the patient 1 unit of packed red blood cells slowly and will give Lasix prior to administration due to history of ARDS. Patient's vital signs are currently stable. I have low suspicion for SBP is her abdomen is soft, nontender and nondistended. She has a history of various feels without any history of bleeding. She has not been vomiting so variceal bleed is less likely. Differential Diagnosis Differential Diagnoses: The differential diagnosis associated with the presentation includes Acute on chronic anemia GI bleed Esophageal variceal bleed Weakness 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 Crockett Admission/Observation Consideration of admission/observation: Escalation of care including admission/observation considered Patient has severe liver disease requiring frequent paracentesis and acute blood transfusion. Consult Healthcare Provider Management of the patient was discussed with: Hospitalist (Discussed with Dr. Mares will admit the patient.) and Steam And Power Supervisor (Discussed with Dr. Verma who agrees with admission will likely do EGD tomorrow, so the patient should be NPO after midnight. Dr. Verma agrees with ceftriaxone and octreotide) Lab Data [facility] Lab Attestation statement: I reviewed the patient's lab results. Patient is pancytopenic with her hemoglobin hematocrit about 2 points below baseline. Patient's platelet count is 27. Her sodium is low at 133. No other significant electrolyte abnormalities. Patient's glucose is 201, no evidence of DKA. Patient's T bili is 1.6 and AST is 35 which are slightly above normal but expected in the setting of chronic CROCKETT 04/24/23 14:19 04/24/23 14:19 Labs: Lab Results 04/24/23 04/24/23 04/24/23 Range/Units 14:19 16:05 16:49 WBC 3.4 L (4.8-10.8) X10*3/uL RBC 2.18 L (4.20-5.50) X10*6/uL Hgb 6.1 L* (12.0-16.0) g/dl Hct 19.8 L* (37.0-47.0) % MCV 90.8 (80.0-98.0) fL MCH 28.0 (27.0-33.0) pg MCHC 30.8 L (31.0-35.0) g/dl RDW 16.3 H (11.0-16.0) % Plt Count 27 L D (160-400) X10*3/uL MPV 10.2 (9.4-12.3) fL Immature Gran % (Auto) 0.3 (0.0-0.4) % Neut % (Auto) 78.8 H (45-73) % Lymph % (Auto) 10.0 L (20-40) % [place] % (Auto) 9.1 (2-11) % Eos % (Auto) 1.2 (0-4) % Baso % (Auto) 0.6 (0-2) % Lymph # (Auto) 0.3 L (1.2-4.9) X10*3/uL [place] # (Auto) 0.3 (0.1-1.2) X10*3/uL Eos # (Auto) 0.0 (0.0-0.4) X10*3/uL Baso # (Auto) 0.0 (0.0-0.2) X10*3/uL Abs Immat Gran (auto) 0.01 (0.00-0.03) X10*3/uL Absolute Neuts (auto) 2.7 (2.0-8.3) x10*3/uL Absolute Nucleated RBC 0.000 (0.0-0.012) X10*3/uL Nucleated RBC % (auto) 0.0 (0.0-0.2) /100WBC PT 17.9 H (11.1-13.3) SEC INR 1.5 H (0.9-1.1) Sodium 133 L (135-145) mmol/L Potassium 3.5 (3.3-5.1) mmol/L Chloride 100 (96-108) mmol/L Carbon Dioxide 24 (22-29) mmol/L Anion Gap 13 (12-20) BUN 14 (9-16) mg/dL Creatinine 1.12 (0.5-1.4) mg/dL Estim Creat Clear Calc 82.2 Estimated GFR 52 Random Glucose 201 H (60-115) mg/dL Calcium 8.7 D (8.4-10.2) mg/dL Total Bilirubin 1.6 H (0.0-1.0) mg/dL AST 35 H (5-31) U/L ALT 15 (0-31) U/L Alkaline Phosphatase 89 (39-117) U/L Total Protein 7.6 (6.5-8.0) g/dL Albumin 3.6 (3.5-5.0) g/dL Stool Occult Blood POSITIVE (NEGATIVE) Blood Type A Positive Antibody Screen NEGATIVE Crossmatch See Detail Discharge Plan Discharge Clinical Impression: GI (gastrointestinal bleed) Patient Disposition: Admitted As Inpatient
--- NOTE | 2023-04-24 17:32 | PC.NURSE ---
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 rn calling blood bank to check if blood is ready- tried x2- no answer.
--- NOTE | 2023-04-24 18:05 | PC.NURSE ---
spoke w pharmacist antonio- room working on octreotide and will bring down when done
--- NOTE | 2023-04-24 18:47 | PM.IMHP ---
History of Present Illness Date of Service: 04/24/23 <ISIS Tariq - Last Filed: 04/24/23 20:46> Attending physician on admission: Renaldo Corbin <ISIS Tariq - Last Filed: 04/24/23 20:46> Chief Complaint: Severe anemia <ISIS Tariq - Last Filed: 04/24/23 20:46> Pt is a 47-year-old [place]-speaking female with a PMH significant for?uncontrolled insulin-dependent diabetes type 2, HLD, HTN, 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 Patient last received paracentesis earlier today which removed 10.7 L of clear yellow fluid. Routine labs were drawn and were significant for H&H of 6.1/19.8. Patient was called and advised to present to the ED for blood transfusion and further evaluation of possible GI bleed. Patient herself has no acute medical complaints. States she normally feels short of breath when she has ascitic fluid buildup, but currently feels fine. Patient denies any known source of bleeding. Denies hematemesis, hemoptysis, hematochezia, melena, or hematuria. Patient was last transfused here at the hospital in June of 2022 where she received 2 units PRBCs and subsequently developed TRALI/acute hypoxic respiratory failure that required intubation and ICU admission. Patient reports she was also transfused 1 month prior on March 27 or at [facility]. She is uncertain how many units she received, but states the workup there was negative for acute bleeding, however [facility] records have not yet been reviewed. Currently patient has no acute medical complaints. Denies shortness of breath. No lightheadedness, dizziness. No increase in fatigue or weakness. Denies chest pain/pressure, palpitations. No fever, chills, nausea, vomiting, abdominal pain. In the ED pt was afebrile but tachycardic up to 107, tachypneic up to 24, variable BP mostly WNL, and satting at 95% on RA. Labs were significant for H&H of 6.1/19.8, sodium 133, total bilirubin 1.6, AST 35. Stool was positive for occult blood. Pt was treated with furosemide, ceftriaxone, Protonix, and placed on an octreotide drip. Pt will be admitted to the hospital for treatment and further evaluation of acute on chronic anemia requiring transfusion. <ISIS Tariq - Last Filed: 04/24/23 20:46> Review of Systems Review of Systems: Patient has no acute medical complaints at this time Denies hematemesis, hemoptysis, hematochezia, melena, or hematuria No shortness of breath, increase in fatigue Denies lightheadedness or dizziness No chest pain/pressure, palpitations Denies fever, chills, nausea, vomiting, abdominal pain <ISIS Tariq - Last Filed: 04/24/23 20:46> [facility] Medical History: Medical History Status post abdominal paracentesis HTN (hypertension) AMY (obstructive sleep apnea) Dyslipidemia Asthma Non-toxic multinodular goiter Diabetic nephropathy associated with type 2 diabetes mellitus Elevated TSH Goiter Acromegaly Morbid obesity PCOS (polycystic ovarian syndrome) custodial (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 insulin Diabetes type 2, uncontrolled 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 <ISIS Tariq - Last Filed: 04/24/23 20:46> Family History: Family History Father Unknown family medical history Mother Hx of type 1 diabetes mellitus <ISIS Tariq - Last Filed: 04/24/23 20:46> Surgical History: Surgical History Hx of colonoscopy Hx of endoscopy <ISIS Tariq - Last Filed: 04/24/23 20:46> Social History: Social History Household Members: Spouse Housing: Apartment Do you presently have visiting nurse or other home services: Yes (2x/week) Alcohol intake: never Patient Tobacco Use Status: Former Tobacco user Quit Date: 7 yrs ago Smoked in Last 30 Days: No Second Hand Smoke Exposure: Yes Use of substances other than those prescribed or required for medical reasons: No Substance Use Type: Marijuana Advance Directives: No Advance Directives Information Provided: No service: No Current occupational status: disabled 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 <ISIS Tariq - Last Filed: 04/24/23 20:46> Meds Allergies/Adverse reactions: Allergies Allergy/AdvReac Type Severity Reaction Status Date / Time ibuprofen [From MOTRIN] Allergy Intermediate RASH Verified 01/23/23 11:48 penicillin V Allergy Mild hives Verified 01/23/23 11:48 codeine Allergy Unknown Verified 01/23/23 11:48 Rx- listed on H&P <ISIS Tariq - Last Filed: 04/24/23 20:46> Active Medications: Current Medications Octreotide Acetate 500 mcg/ (Sodium Chloride) 501 mls @ 50.1 mls/hr IVCONT .Q10H NIMO <ISIS Tariq - Last Filed: 04/24/23 20:46> Home medications: Home Medications Medication Instructions Recorded Confirmed Last Taken Type albuterol sulfate 90 mcg/actuation 2 puff inhalation Q6H PRN Wheezing 08/16/20 04/24/23 03/04/23 History aerosol inhaler (Ventolin HFA) blood sugar diagnostic (FreeStyle #10 ea 08/16/20 08/16/20 Unknown History Lite Strips) lancets 28 gauge (FreeStyle #100 ea 08/16/20 08/16/20 Unknown History Lancets) levothyroxine 50 mcg tablet 50 mcg PO DAILY@0600 11/04/21 04/24/23 03/04/23 History insulin glargine U-300 conc 300 80 unit subcut BEDTIME 04/30/22 04/24/23 03/04/23 History unit/mL (3 mL) subcutaneous pen (Toujeo Max U-300 SoloStar) insulin lispro 100 unit/mL 26 unit subcut TIDAC 05/31/22 04/24/23 03/04/23 History subcutaneous pen cholecalciferol (vitamin D3) 50 50 mcg PO DAILY 09/29/22 04/24/23 03/04/23 History mcg (2,000 unit) capsule (Vitamin D3) flash glucose sensor (FreeStyle #1 ea 09/29/22 Unknown History Brooke 2 Sensor kit) loratadine 10 mg tablet 10 mg PO DAILY PRN Allergy Symptoms 09/29/22 04/24/23 03/04/23 History spironolactone 100 mg tablet 200 mg PO DAILY 09/29/22 04/24/23 03/04/23 History pen needle, diabetic 32 gauge x #1,200 ea 01/23/23 Unknown History (Pentips) potassium chloride 20 mEq 20 meq PO DAILY 01/23/23 04/24/23 03/04/23 History tablet,extended release(part/cryst) torsemide 20 mg tablet 40 mg PO DAILY 01/23/23 04/24/23 03/04/23 History albuterol sulfate 2.5 mg/3 mL 2.5 mg inhalation QID PRN dyspnea 04/24/23 04/24/23 Unknown History (0.083 %) solution for nebulization mometasone 200 mcg/actuation HFA 1 puff inhalation BID 04/24/23 04/24/23 04/24/22 History aerosol inhaler (Asmanex HFA) <ISIS Tariq - Last Filed: 04/24/23 20:46> Physical Exam Vital Signs and Narrative: Vital Signs: Last Vital Signs Temp 98 F 04/24/23 18:08 Pulse 107 H 04/24/23 18:08 Resp 20 04/24/23 18:08 BP 153/68 H 04/24/23 18:08 Pulse Ox 95 04/24/23 17:46 O2 Del Method Room Air 04/24/23 17:46 BMI result Body Mass Index 51.2 <ISIS Tariq - Last Filed: 04/24/23 20:46> Constitutional: Alert, in no acute distress. Mental Status: Oriented to person, place and time. Eyes: Pupils are equal, round, and reactive to light. Ear, Nose, and Throat: Oropharynx clear, mucous membranes moist. Ears and nose without deformities. Trachea midline. Respiratory: Clear to auscultation bilaterally. No wheezing, rales, or rhonchi. Cardiovascular: S1, S2 regular. No murmurs, rubs, or gallops. Gastrointestinal: Abdomen soft, non-tender, non-distended, obese. Normal bowel sounds. Neurologic: Cranial nerves II-XII are grossly intact bilaterally. No focal neurological deficits. Moves all extremities spontaneously. Skin: Warm, dry. Musculoskeletal: No cyanosis or clubbing. Extremities: 2+ bilateral pitting edema. Psychiatric: Normal mood and affect. <ISIS Tariq - Last Filed: 04/24/23 20:46> Results Labs CBC and Chem 7: 04/24/23 14:19 04/24/23 14:19 <ISIS Tariq - Last Filed: 04/24/23 20:46> Labs: Laboratory Results - last 24 hr 04/24/23 04/24/23 04/24/23 14:19 16:05 16:49 MCV 90.8 MCH 28.0 MCHC 30.8 L RDW 16.3 H Plt Count 27 L D MPV 10.2 Immature Gran % (Auto) 0.3 Neut % (Auto) 78.8 H Lymph % (Auto) 10.0 L [place] % (Auto) 9.1 Eos % (Auto) 1.2 Baso % (Auto) 0.6 Lymph # (Auto) 0.3 L [place] # (Auto) 0.3 Eos # (Auto) 0.0 Baso # (Auto) 0.0 Abs Immat Gran (auto) 0.01 Absolute Neuts (auto) 2.7 Absolute Nucleated RBC 0.000 Nucleated RBC % (auto) 0.0 PT 17.9 H INR 1.5 H Anion Gap 13 Estim Creat Clear Calc 82.2 Estimated GFR 52 Random Glucose 201 H Calcium 8.7 D Total Bilirubin 1.6 H AST 35 H ALT 15 Alkaline Phosphatase 89 Total Protein 7.6 Albumin 3.6 Stool Occult Blood POSITIVE Blood Type A Positive Antibody Screen NEGATIVE Crossmatch See Detail <ISIS Tariq - Last Filed: 04/24/23 20:46> Assessment and Plan (1) GI (gastrointestinal bleed): Status: Acute <ISIS Tariq - Last Filed: 04/24/23 20:46> (2) Acute on chronic anemia: Status: Acute <ISIS Tariq - Last Filed: 04/24/23 20:46> Pt is a 47-year-old [place]-speaking female with a PMH significant for?uncontrolled insulin-dependent diabetes type 2, HLD, HTN, 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 Pt will be admitted to the hospital for treatment and further evaluation of acute on chronic anemia requiring transfusion. Acute on chronic anemia H&H 6.1/19.8 at time of presentation, down from 7.6/24.7 on 03/05/2023 Stool positive for occult blood No obvious source of bleeding: Patient denies hemoptysis, hematemesis, hematochezia, melena, and hematuria Patient transfused 1 unit PRBCs in ED Placed on octreotide drip in ED, will continue GI consult NPO after midnight for likely EGD tomorrow morning Follow CBC Servin cirrhosis with ascites, thrombocytopenia S/P paracentesis today of 10.5L with symptomatic improvement Cultures pending Will treat prophylactically with ceftriaxone High-protein diet once no longer NPO Continue torsemide, spironolactone HTN Continue lisinopril, spironolactone Insulin-dependent diabetes type 2 SSI, Lantus Diabetic diet Hypothyroidism Continue levothyroxine Mild intermittent asthma Not in acute exacerbation Continue home inhalers Obesity class III Weight loss encouraged Full Code Attending:?Dr. Corbin DVT Prophylaxis: Pneumatic boots Pt will require a hospitalization of at least two nights for treatment and further evaluation of?acute on chronic anemia requiring transfusion and further evaluation tomorrow with an EGD. Given patient's significant comorbidities including liver cirrhosis requiring regular paracentesis and her 2nd episode of anemia requiring transfusion within the past month, patient will require further hospitalized evaluation and close monitoring. 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 Pt will be admitted to the hospital for treatment and further evaluation of acute on chronic anemia requiring transfusion. Acute on chronic anemia H&H 6.1/19.8 at time of presentation, down from 7.6/24.7 on 03/05/2023 Stool positive for occult blood No obvious source of bleeding: Patient denies hemoptysis, hematemesis, hematochezia, melena, and hematuria Patient transfused 1 unit PRBCs in ED Placed on octreotide drip in ED, will continue GI consult NPO after midnight for likely EGD tomorrow morning Follow CBC Servin cirrhosis with ascites, thrombocytopenia S/P paracentesis today of 10.5L with symptomatic improvement Cultures pending Will treat prophylactically with ceftriaxone High-protein diet once no longer NPO Hold torsemide, spironolactone in the setting of likely GI bleed HTN Hold spironolactone Insulin-dependent diabetes type 2 SSI, Lantus Diabetic diet Hypothyroidism Continue levothyroxine Mild intermittent asthma Not in acute exacerbation Continue home inhalers Obesity class III Weight loss encouraged Full Code Attending:?Dr. Corbin DVT Prophylaxis: Pneumatic boots Pt will require a hospitalization of at least two nights for treatment and further evaluation of?acute on chronic anemia requiring transfusion and further evaluation tomorrow with an EGD. Given patient's significant comorbidities including liver cirrhosis requiring regular paracentesis and her 2nd episode of anemia requiring transfusion within the past month, patient will require further hospitalized evaluation and close monitoring. <Renaldo Corbin MD - Last Filed: 04/24/23 21:17> Quality Stroke Does the patient have a stroke diagnosis?: No <ISIS Tariq - Last Filed: 04/24/23 20:46> VTE Prior VTE?: No <ISIS Tariq - Last Filed: 04/24/23 20:46> VTE Risk Level:: Medical - moderate - high <ISIS Tariq - Last Filed: 04/24/23 20:46> VTE Device Contraindication: N/A - Device Ordered <ISIS Tariq - Last Filed: 04/24/23 20:46> VTE Drug Contraindication: Treatment Not Indicated <ISIS Tariq - Last Filed: 04/24/23 20:46>
--- NOTE | 2023-04-24 18:50 | PHA.MEDREC ---
Pharmacy Consult ? Medication Reconciliation Pharmacy has completed the medication reconciliation. Patient confirmed medications. Patient no longer on Flovent patient now on Asmanex. Devika Duffy, PharmD
--- NOTE | 2023-04-24 19:07 | PC.NURSE ---
handoff to next rn given.
--- NOTE | 2023-04-24 20:20 | PC.NURSE ---
octreotide infusing via L. hand IV. pt denies pain at this time. blood infusing via R. wrist IV. nad resp even and unlabored. sats 98% on RA. call cash within reach.
--- NOTE | 2023-04-24 20:57 | PC.NURSE ---
lung sounds remain cta. blood infusing slowly per PA request to previous RN as pt has hx ARDS. poc [address] Corbin as pt NPO; states to continue with Lantus administration.
--- NOTE | 2023-04-24 21:29 | PC.NURSE ---
blood infused lung sounds cta. vss. afebrile.
[2023-04-25] VITALS (16 sets, daily range): BP systolic 106–142; BP diastolic 46–78; PULSE 78–98; RESP 14–28; TEMP 36.2–37.1; O2SAT 95–98; BMI 51.2
--- NOTE | 2023-04-25 03:05 | PC.NURSE ---
pt moved into hospital bed and repositioned. call cash within reach.
--- NOTE | 2023-04-25 03:40 | PC.NURSE ---
pt had an episode of desatting to 79% on RA while sleeping. pt states she has stopped using her cpap machine for a long time. pt placed on 2L NC for comfort. sats 97-98% on 2L.
--- NOTE | 2023-04-25 05:58 | PC.NURSE ---
pt states own BGL monitor states low bgl. poc 72. Dr. Corbin notified as pt NPO and no PRN order. vss.
--- NOTE | 2023-04-25 07:34 | PM.GICN ---
History of Present Illness Data of Consult Service Date: 04/25/23 Requesting physician: Renaldo Corbin Primary Care Provider: Unknown Physician HPI Reason for consult: anemia 47-year-old female with hx of?uncontrolled insulin-dependent diabetes type 2, HLD, HTN, liver cirrhosis secondary to SERVIN with ascites, chronic thrombocytopenia, AMY, PCOS with acromegaly, nontoxic multinodular goiter, and mild intermittent asthma who I am seeing for assessment for anemia. Patient had routine labs ordered by [facility] liver [facility] program and was told to got to the ED after she was found to be very anemic. She also had her routine scheduled paracentesis done yesterday with 10 L of fluid removed. Patient denies hematemesis, hemoptysis, hematochezia, melena, or hematuria. She normally feels short of breath when she has ascitic fluid buildup, but currently feels fine after being drained. No fever, chills, nausea, vomiting, abdominal pain. Denies chest pain/pressure, palpitations. Of note she was at [facility] 1 month ago and treated for H influenzae bacteremia, she was noted to be anemic then around 6 g/dl per remote review of the [facility] EMR and received few units of PRBC but no EGD or further investigations. Patient has received treatment with furosemide, ceftriaxone, Protonix, and placed on an octreotide drip as well as receiving at least 1 unit of PRBC Labs on admission: H&H of 6.1/19.8, sodium 133, total bilirubin 1.6, AST 35. Stool was positive for occult blood. Other data: Endo: EGD/colo 09/2021-- small varix, PHG, fair colon prep with normal biopsies EGD 08/2021 and 09/2021 with variceal banding Review of Systems Review of Systems: Constitutional : No Weight loss, No Fever, No Chills ENT/Mouth : No sore throat, No Rhinorrhea Eyes: No Swelling, No Redness Cardiovascular : No Chest Pain, + SOB, No Edema Respiratory : No Cough, No Sputum, No Wheezing Gastrointestinal : see HPI Genitourinary : NO Dysuria, No Urinary Frequency, No Hematuria, No Urgency Musculoskeletal : No joint pain, No Myalgias, No Joint Swelling Skin : No Skin Lesions, No rash Neuro : + Weakness, No Numbness, No Dizziness, No Headache Psych : No Anxiety/Panic, No Depression Heme/Lymph: No Bruising, No Lymphadenopathy Endocrine : No Polyuria, No Polydipsia All other systems reviewed and are negative. [facility] Past Medical History Medical History Status post abdominal paracentesis HTN (hypertension) AMY (obstructive sleep apnea) Dyslipidemia Asthma Non-toxic multinodular goiter Diabetic nephropathy associated with type 2 diabetes mellitus Elevated TSH Goiter Acromegaly Morbid obesity PCOS (polycystic ovarian syndrome) long-term (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 insulin Diabetes type 2, uncontrolled 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 Family History Family History Father Unknown family medical history Mother Hx of type 1 diabetes mellitus Surgical History Surgical History Hx of colonoscopy Hx of endoscopy Social History Social History Household Members: Spouse Housing: Apartment Do you presently have visiting nurse or other home services: Yes (2x/week) Alcohol intake: never Patient Tobacco Use Status: Former Tobacco user Quit Date: 7 yrs ago Smoked in Last 30 Days: No Second Hand Smoke Exposure: Yes Use of substances other than those prescribed or required for medical reasons: No Substance Use Type: Marijuana Advance Directives: No Advance Directives Information Provided: No service: No Current occupational status: disabled 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 Meds Allergies Allergy/AdvReac Type Severity Reaction Status Date / Time ibuprofen [From MOTRIN] Allergy Intermediate RASH Verified 01/23/23 11:48 penicillin V Allergy Mild hives Verified 01/23/23 11:48 codeine Allergy Unknown Verified 01/23/23 11:48 Rx- listed on H&P Active Medications: Current Medications Acetaminophen (Acetaminophen 325 Mg Tablet) 650 mg PO Q6H PRN PRN Reason: Pain, Mild (Pain Scale 1-3) Albuterol Sulfate (Albuterol Sulfate (0.083%) 2.5 Mg/3 Ml Vial.Neb) 2.5 mg INHALE QID PRN PRN Reason: dyspnea Albuterol Sulfate (Albuterol Sulfate 90 Mcg 8 Gm Inhaler) 2 puff INHALE Q6H PRN PRN Reason: Wheezing Fluticasone Propionate (Fluticasone Propionate 250 Mcg Blst.W.Dev) 1 puff INHALE RBID [facility] Octreotide Acetate 500 mcg/ (Sodium Chloride) 501 mls @ 50.1 mls/hr IVCONT .Q10H [facility] Last Admin: 04/25/23 05:43 Dose: 50 mcg/hr, 50.1 mls/hr Ceftriaxone Sodium 1 gm/ (Sodium Chloride) 50 mls @ 100 mls/hr IV Q24H [facility] Levothyroxine Sodium (Levothyroxine Sodium 50 Mcg Tablet) 50 mcg PO DAILY@0600 [facility] Last Admin: 04/25/23 05:43 Dose: 50 mcg Loratadine (Loratadine 10 Mg Tablet) 10 mg PO DAILY PRN PRN Reason: Allergy Symptoms Melatonin (Melatonin 3 Mg Tablet) 6 mg PO BEDTIME PRN PRN Reason: Insomnia Ondansetron HCl (Ondansetron Hcl 4 Mg/2 Ml Vial) 4 mg IVPUSH Q8H PRN PRN Reason: Nausea and Vomiting Pantoprazole Sodium (Pantoprazole Sodium 40 Mg/10 Ml Vial) 40 mg IVPUSH BID@0630,1630 [facility] Last Admin: 04/25/23 05:43 Dose: 40 mg Potassium Chloride (Potassium Chloride Er 20 Meq Tab.Er.Prt) 20 meq PO DAILY [facility] Sodium Chloride (0.9 % Sodium Chloride Flush 3 Ml Syringe) 3 ml IVFLUSH QSHIFT [facility] Last Admin: 04/24/23 23:24 Dose: Not Given Vitamin D (Cholecalciferol (Vitamin D3) 25 Mcg Tablet) 50 mcg PO DAILY [facility] Home Medications Medication Instructions Recorded Confirmed Last Taken Type albuterol sulfate 90 mcg/actuation 2 puff inhalation Q6H PRN Wheezing 08/16/20 04/24/23 03/04/23 History aerosol inhaler (Ventolin HFA) blood sugar diagnostic (FreeStyle #10 ea 08/16/20 08/16/20 Unknown History Lite Strips) lancets 28 gauge (FreeStyle #100 ea 08/16/20 08/16/20 Unknown History Lancets) levothyroxine 50 mcg tablet 50 mcg PO DAILY@0600 11/04/21 04/24/23 03/04/23 History insulin glargine U-300 conc 300 80 unit subcut BEDTIME 04/30/22 04/24/23 03/04/23 History unit/mL (3 mL) subcutaneous pen (Toujeo Max U-300 SoloStar) insulin lispro 100 unit/mL 26 unit subcut TIDAC 05/31/22 04/24/23 03/04/23 History subcutaneous pen cholecalciferol (vitamin D3) 50 50 mcg PO DAILY 09/29/22 04/24/23 03/04/23 History mcg (2,000 unit) capsule (Vitamin D3) flash glucose sensor (FreeStyle #1 ea 09/29/22 Unknown History Brooke 2 Sensor kit) loratadine 10 mg tablet 10 mg PO DAILY PRN Allergy Symptoms 09/29/22 04/24/23 03/04/23 History spironolactone 100 mg tablet 200 mg PO DAILY 09/29/22 04/24/23 03/04/23 History pen needle, diabetic 32 gauge x #1,200 ea 01/23/23 Unknown History (Pentips) potassium chloride 20 mEq 20 meq PO DAILY 01/23/23 04/24/23 03/04/23 History tablet,extended release(part/cryst) torsemide 20 mg tablet 40 mg PO DAILY 01/23/23 04/24/23 03/04/23 History albuterol sulfate 2.5 mg/3 mL 2.5 mg inhalation QID PRN dyspnea 04/24/23 04/24/23 Unknown History (0.083 %) solution for nebulization mometasone 200 mcg/actuation HFA 1 puff inhalation BID 04/24/23 04/24/23 04/24/22 History aerosol inhaler (Asmanex HFA) Physical Exam Vital Signs: Vital Signs: Last Vital Signs Temp 98 F 04/24/23 21:27 Pulse 92 04/25/23 06:02 Resp 14 04/25/23 06:02 BP 123/61 04/25/23 06:02 Pulse Ox 98 04/25/23 06:02 O2 Del Method Nasal Cannula 04/25/23 06:02 O2 Flow Rate 2 04/25/23 06:02 BMI result Body Mass Index 51.2 EXAM: GENERAL: The patient is obese, midly hirsute VITAL SIGNS:see workflow HEENT: Nonicteric sclerae, PERRLA, EOMI. Oropharynx clear. Moist mucous membranes. Conjunctivae appear well perfused. No thyroid mass. CHEST: Chest wall is nontender. HEART: Regular rate and rhythm without murmurs. LUNGS: Clear to auscultation bilaterally. ABDOMEN: Soft, positive bowel sounds, nontender, no organomegaly.no flank tenderness SKIN: No rash, no excessive bruising, petechiae, or purpura. NEUROLOGIC: Cranial nerves II-XII intact without motor/sensory deficit. Psych: nml affect Results Labs 04/25/23 07:05 04/25/23 07:05 Labs: Short CBC 04/24/23 Range/Units 14:19 WBC 3.4 L (4.8-10.8) X10*3/uL Hgb 6.1 L* (12.0-16.0) g/dl Hct 19.8 L* (37.0-47.0) % Plt Count 27 L D (160-400) X10*3/uL BMP 04/24/23 14:19 Sodium 133 L Potassium 3.5 Chloride 100 Carbon Dioxide 24 BUN 14 Creatinine 1.12 Calcium 8.7 D Liver Function 04/24/23 Range/Units 14:19 Total Bilirubin 1.6 H (0.0-1.0) mg/dL AST 35 H (5-31) U/L ALT 15 (0-31) U/L Alkaline Phosphatase 89 (39-117) U/L Albumin 3.6 (3.5-5.0) g/dL Assessment and Plan (1) Acute on chronic anemia: Status: Acute (2) GI (gastrointestinal bleed): Qualifiers: GI bleed type/associated pathology: unspecified gastrointestinal hemorrhage type Qualified Code(s): K92.2 - Gastrointestinal hemorrhage, unspecified Status: Acute (3) 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: Status: Acute Plan 1/ Acute on chronic anemia, decompensated liver cirrhosis, main concern would be a slow variceal bleed. ddx dieulafoy, PUD, PHG PLAN: 1/ NPO 2/ cont with IV octreotide, ABx, PPI, and transfuse for HGB target 8-9 g/dl 3/ EGD today for further assessment 4/ Recommend a pack of platelets and x 1 dose of IV vit K 10 mg Procedures Date of Service Date of Service: 04/25/23
--- NOTE | 2023-04-25 08:31 | PC.NURSE ---
Addendum entered by Toño Bowens RN 04/25/23 08:48: po potassium and vit D3 with sip of oj. Original Note: assumed care of this pt at 0700. pt a+o x3, denies pain, vss. LSCTA. po med given with sip of water per order. pt has a blood sugar sensor on her R upper arm that checks her blood sugar. she reports poc 71. poc checked with the facilities poc machine - results 71.
--- NOTE | 2023-04-25 08:51 | PC.NURSE ---
Nurse to nurse report given to DEBURRING MACHINE OPERATORHOMERO Palomares. No time frame on when pt will be taken to OR. pt aware of plan.
--- NOTE | 2023-04-25 10:00 | PC.NURSE ---
LATE ENTRY: PT TAKEN TO OR BY OR RNs. Update given.
--- NOTE | 2023-04-25 10:27 | HO.ANESPROP2 ---
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 (Acute) 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 (Acute) Hyponatremia (Acute) Positive blood culture (Acute) Coagulopathy (Acute) Thrombocytopenia (Acute) Pneumonia (Acute) Ascites (Acute) Acute hyponatremia (Acute) Numbness and tingling in both hands (Acute) Non-toxic multinodular goiter (Acute) Diabetic nephropathy associated with type 2 diabetes mellitus (Acute) Elevated TSH (Acute) Goiter (Acute) Acromegaly (Acute) Morbid obesity (Acute) PCOS (polycystic ovarian syndrome) (Acute) detention (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 insulin (Acute) Diabetes type 2, uncontrolled (Acute) Past Medical History Medical History Status post abdominal paracentesis HTN (hypertension) AMY (obstructive sleep apnea) Dyslipidemia Asthma Non-toxic multinodular goiter Diabetic nephropathy associated with type 2 diabetes mellitus Elevated TSH Goiter Acromegaly Morbid obesity PCOS (polycystic ovarian syndrome) 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 Diabetes type 2, uncontrolled 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 Family History Family History Father Unknown family medical history Mother Hx of type 1 diabetes mellitus Family history of problems with anesthesia: No Surgical History Surgical History Hx of colonoscopy Hx of endoscopy History of Problems with Anesthesia: No Social History Social History Household Members: Spouse Housing: Apartment Do you presently have visiting nurse or other home services: Yes (2x/week) Alcohol intake: never Patient Tobacco Use Status: Former Tobacco user Quit Date: 7 yrs ago Smoked in Last 30 Days: No Second Hand Smoke Exposure: Yes Use of substances other than those prescribed or required for medical reasons: No Substance Use Type: Marijuana Advance Directives: No Advance Directives Information Provided: No service: No Current occupational status: disabled 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 Meds Allergies Allergy/AdvReac Type Severity Reaction Status Date / Time ibuprofen [From MOTRIN] Allergy Intermediate RASH Verified 01/23/23 11:48 penicillin V Allergy Mild hives Verified 01/23/23 11:48 codeine Allergy Unknown Verified 01/23/23 11:48 Rx- listed on H&P Active Medications: Current Medications Acetaminophen (Acetaminophen 325 Mg Tablet) 650 mg PO Q6H PRN PRN Reason: Pain, Mild (Pain Scale 1-3) Albuterol Sulfate (Albuterol Sulfate (0.083%) 2.5 Mg/3 Ml Vial.Neb) 2.5 mg INHALE QID PRN PRN Reason: dyspnea Albuterol Sulfate (Albuterol Sulfate 90 Mcg 8 Gm Inhaler) 2 puff INHALE Q6H PRN PRN Reason: Wheezing Fluticasone Propionate (Fluticasone Propionate 250 Mcg Blst.W.Dev) 1 puff INHALE RBID COUNT INCLUDES THE [facility] Last Admin: 04/25/23 09:27 Dose: Not Given Octreotide Acetate 500 mcg/ (Sodium Chloride) 501 mls @ 50.1 mls/hr IVCONT .Q10H COUNT INCLUDES THE [facility] Last Admin: 04/25/23 05:43 Dose: 50 mcg/hr, 50.1 mls/hr Ceftriaxone Sodium 1 gm/ (Sodium Chloride) 50 mls @ 100 mls/hr IV Q24H COUNT INCLUDES THE [facility] Sodium Chloride (Ns) 100 mls @ 100 mls/hr IV ONCE ONE Stop: 04/25/23 10:32 Levothyroxine Sodium (Levothyroxine Sodium 50 Mcg Tablet) 50 mcg PO DAILY@0600 COUNT INCLUDES THE [facility] Last Admin: 04/25/23 05:43 Dose: 50 mcg Loratadine (Loratadine 10 Mg Tablet) 10 mg PO DAILY PRN PRN Reason: Allergy Symptoms Melatonin (Melatonin 3 Mg Tablet) 6 mg PO BEDTIME PRN PRN Reason: Insomnia Ondansetron HCl (Ondansetron Hcl 4 Mg/2 Ml Vial) 4 mg IVPUSH Q8H PRN PRN Reason: Nausea and Vomiting Pantoprazole Sodium (Pantoprazole Sodium 40 Mg/10 Ml Vial) 40 mg IVPUSH BID@0630,1630 COUNT INCLUDES THE [facility] Last Admin: 04/25/23 05:43 Dose: 40 mg Potassium Chloride (Potassium Chloride Er 20 Meq Tab.Er.Prt) 20 meq PO DAILY COUNT INCLUDES THE [facility] Last Admin: 04/25/23 08:11 Dose: 20 meq Sodium Chloride (0.9 % Sodium Chloride Flush 3 Ml Syringe) 3 ml IVFLUSH QSHIFT COUNT INCLUDES THE [facility] Last Admin: 04/25/23 08:11 Dose: Not Given Vitamin D (Cholecalciferol (Vitamin D3) 25 Mcg Tablet) 50 mcg PO DAILY COUNT INCLUDES THE [facility] Last Admin: 04/25/23 08:11 Dose: 50 mcg Home Medications Medication Instructions Recorded Confirmed Last Taken Type albuterol sulfate 90 mcg/actuation 2 puff inhalation Q6H PRN Wheezing 08/16/20 04/24/23 03/04/23 History aerosol inhaler (Ventolin HFA) blood sugar diagnostic (FreeStyle #10 ea 08/16/20 08/16/20 Unknown History Lite Strips) lancets 28 gauge (FreeStyle #100 ea 08/16/20 08/16/20 Unknown History Lancets) levothyroxine 50 mcg tablet 50 mcg PO DAILY@0600 11/04/21 04/24/23 03/04/23 History insulin glargine U-300 conc 300 80 unit subcut BEDTIME 04/30/22 04/24/23 03/04/23 History unit/mL (3 mL) subcutaneous pen (Toujeo Max U-300 SoloStar) insulin lispro 100 unit/mL 26 unit subcut TIDAC 05/31/22 04/24/23 03/04/23 History subcutaneous pen cholecalciferol (vitamin D3) 50 50 mcg PO DAILY 09/29/22 04/24/23 03/04/23 History mcg (2,000 unit) capsule (Vitamin D3) flash glucose sensor (FreeStyle #1 ea 09/29/22 Unknown History Brooke 2 Sensor kit) loratadine 10 mg tablet 10 mg PO DAILY PRN Allergy Symptoms 09/29/22 04/24/23 03/04/23 History spironolactone 100 mg tablet 200 mg PO DAILY 09/29/22 04/24/23 03/04/23 History pen needle, diabetic 32 gauge x #1,200 ea 01/23/23 Unknown History (Pentips) potassium chloride 20 mEq 20 meq PO DAILY 01/23/23 04/24/2323 History tablet,extended release(part/cryst) torsemide 20 mg tablet 40 mg PO DAILY 01/23/23 04/24/23 03/04/23 History albuterol sulfate 2.5 mg/3 mL 2.5 mg inhalation QID PRN dyspnea 04/24/23 04/24/23 Unknown History (0.083 %) solution for nebulization mometasone 200 mcg/actuation HFA 1 puff inhalation BID 04/24/23 04/24/23 04/24/22 History aerosol inhaler (Asmanex HFA) Exam Height,Weight and Vital Signs: Height 5 ft 3 in Weight 131.088 kg Last Vital Signs Temp 98.6 F 04/25/23 08:14 Pulse 94 04/25/23 08:14 Resp 18 04/25/23 08:14 BP 120/60 04/25/23 08:14 Pulse Ox 95 04/25/23 08:14 O2 Del Method Room Air 04/25/23 08:14 O2 Flow Rate 2 04/25/23 06:02 Pertinent Lab Results Pertinent Lab Results: Laboratory Tests 04/24/23 04/24/23 04/24/23 14:19 16:05 16:49 WBC 3.4 L RBC 2.18 L Hgb 6.1 L* Hct 19.8 L* MCV 90.8 MCH 28.0 MCHC 30.8 L RDW 16.3 H Plt Count 27 L D MPV 10.2 Immature Gran % (Auto) 0.3 Neut % (Auto) 78.8 H Lymph % (Auto) 10.0 L [place] % (Auto) 9.1 Eos % (Auto) 1.2 Baso % (Auto) 0.6 Lymph # (Auto) 0.3 L [place] # (Auto) 0.3 Eos # (Auto) 0.0 Baso # (Auto) 0.0 Abs Immat Gran (auto) 0.01 Absolute Neuts (auto) 2.7 Absolute Nucleated RBC 0.000 Nucleated RBC % (auto) 0.0 PT 17.9 H INR 1.5 H Sodium 133 L Potassium 3.5 Chloride 100 Carbon Dioxide 24 Anion Gap 13 BUN 14 Creatinine 1.12 Estim Creat Clear Calc 82.2 Estimated GFR 52 POC Glucose Random Glucose 201 H Calcium 8.7 D Total Bilirubin 1.6 H AST 35 H ALT 15 Alkaline Phosphatase 89 Total Protein 7.6 Albumin 3.6 Stool Occult Blood POSITIVE Blood Type A Positive Antibody Screen NEGATIVE Crossmatch See Detail 04/24/23 04/25/23 04/25/23 20:53 05:56 07:05 WBC 5.2 RBC 2.33 L Hgb 6.8 L* Hct 20.8 L* MCV 89.3 MCH 29.2 MCHC 32.7 RDW 15.9 Plt Count 36 L D MPV 13.3 H Immature Gran % (Auto) 0.6 H Neut % (Auto) 77.9 H Lymph % (Auto) 9.4 L [place] % (Auto) 9.8 Eos % (Auto) 1.7 Baso % (Auto) 0.6 Lymph # (Auto) 0.5 L [place] # (Auto) 0.5 Eos # (Auto) 0.1 Baso # (Auto) 0.0 Abs Immat Gran (auto) 0.03 Absolute Neuts (auto) 4.1 Absolute Nucleated RBC 0.000 Nucleated RBC % (auto) 0.0 PT INR Sodium 136 Potassium 3.6 Chloride 105 Carbon Dioxide 25 Anion Gap 10 L BUN 13 Creatinine 0.90 Estim Creat Clear Calc 102.3 Estimated GFR > 60 POC Glucose 130 H 72 Random Glucose 68 Calcium 8.2 L Total Bilirubin AST ALT Alkaline Phosphatase Total Protein Albumin Stool Occult Blood Blood Type Antibody Screen Crossmatch 04/25/23 07:21 WBC RBC Hgb Hct MCV MCH MCHC RDW Plt Count MPV Immature Gran % (Auto) Neut % (Auto) Lymph % (Auto) [place] % (Auto) Eos % (Auto) Baso % (Auto) Lymph # (Auto) [place] # (Auto) Eos # (Auto) Baso # (Auto) Abs Immat Gran (auto) Absolute Neuts (auto) Absolute Nucleated RBC Nucleated RBC % (auto) PT INR Sodium Potassium Chloride Carbon Dioxide Anion Gap BUN Creatinine Estim Creat Clear Calc Estimated GFR POC Glucose 71 Random Glucose Calcium Total Bilirubin AST ALT Alkaline Phosphatase Total Protein Albumin Stool Occult Blood Blood Type Antibody Screen Crossmatch Airway Mallampati Class: III TM Dist: >3cm Neck ROM: Full Denture: Upper and Lower Assessment and Plan Assessment Anesthesia Assessment: Anesthesia Plan Discussed and Chart Reviewed Final Anesthetic Review Family History of Problems with Anesthesia: No History of Problems with Anesthesia: No NPO: Yes ASA Class: IV and Emergency Final Preanesthetic Review: No Changes in Pt Med Stat, Meds/Allgs Chart Reviewed, Consent Obtained/Reviewed and Anes Risks/Benef Reviewed Patient Risk: High Procedure Risk: Intermediate Anesthetic Plan Anesthetic Plan: GA Disposition: Standard PACU
--- NOTE | 2023-04-25 10:49 | W.PM.OPN ---
Operative Note Operative Note Date of Service: 04/25/23 Narrative: Procedure Description: EGD Indication: anemia, cirrhosis Anesthesia: GA FLEXIBLE TRANSORAL UPPER GASTROINTESTINAL ENDOSCOPY UPPER ENDOSCOPY Consent: Indications for the procedure and potential complications of bleeding, perforation, reaction to medications and missed diagnosis were discussed with the patient and informed consent was obtained. Instrument: Olympus GIF H 190 J mid size upper endoscope Monitoring: Vital signs and clinical assessment, continuous EKG monitoring, Pulse oximetry, Carbon Dioxide monitoring and blood pressure monitoring were done throughout the procedure. Procedure: The patient was placed in the left lateral decubitis position and pre-procedure medications were administered and a bite block was placed. The endoscope was inserted into the mouth and advanced under direct vision to the third part of duodenum. A careful inspection was made as the upper endoscope was withdrawn including a retroflexed examination of the proximal stomach; Findings and interventions are described below. Findings: Larynx:normal Esophagus: GE junction at 38 cm, diaphragm hiatus at 38 cm, x3 cords of grade II varices noted with some red albarran, not actively bleeding but due to high risk stigmata these were banded using 4 bands and then hemospray was applied Stomach: Patchy gastric erythema and mosaic pattern consistent with portal hypertensive gastropathy. . Grade 2 flap valve on retroflexed examination of the cardia, no gastric varices seen. A white nipple sign was noted in the antrum, and after a water jet was sprayed over it, there was immediate bleeding, probably from an underlying dieulafoy lesion. An OVESCO clip was applied but there was still oozing from the top so an ultra clip was applied, and then hemospray was used to facilitate hemostasis. Duodenum: Normal bulb and descending duodenum, Intervention: Variceal banding, clip placement, hemospray Impression/Findings: esophageal varices with high risk features dieulafoy lesion portal hypertensive gastropathy PLAN: clears as tolerated today and advance diet tomorrow carafate liquid for 2 weeks to prevent post banding ulcers and bleeding high dose PPI, e.g pantoprazole 40 mg bid pack of platelets cont with octreotide for 48 hrs at least cont with ceftriaxone for infection prophylaxis if able to try to commence low dose carvedilol BID and low dose statin to help reduce portal pressures
--- NOTE | 2023-04-25 11:17 | PC.NURSE ---
spo2 down to 89-90 on 2liters pt back on 3liters spo2 no 93-95on 3 liters
--- NOTE | 2023-04-25 11:17 | HO.PM.IMPN ---
Subjective Subjective Date of Service: 04/25/23 Review of Systems Follow-up GI bleed, ascites Feeling better, no pain Physical Exam Vital Signs: Vital Signs: Last Vital Signs Temp 97.1 F 04/25/23 11:11 Pulse 98 04/25/23 11:11 Resp 18 04/25/23 11:11 BP 138/69 04/25/23 11:11 Pulse Ox 96 04/25/23 11:11 O2 Del Method Room Air 04/25/23 08:14 O2 Flow Rate 2 04/25/23 11:11 BMI result Body Mass Index 51.2 Appearing in no acute distress lung sounds are clear to auscultation heart regular rate rhythm, clear S1, S2 positive bowel sounds, abdomen is soft, nontender neuro patient is alert x3, no focal deficits Objective Data Active Medications Acetaminophen (Acetaminophen 325 Mg Tablet) 650 mg PO Q6H PRN PRN Reason: Pain, Mild (Pain Scale 1-3) Albuterol Sulfate (Albuterol Sulfate (0.083%) 2.5 Mg/3 Ml Vial.Neb) 2.5 mg INHALE QID PRN PRN Reason: dyspnea Albuterol Sulfate (Albuterol Sulfate 90 Mcg 8 Gm Inhaler) 2 puff INHALE Q6H PRN PRN Reason: Wheezing Fluticasone Propionate (Fluticasone Propionate 250 Mcg Blst.W.Dev) 1 puff INHALE RBID [facility] Last Admin: 04/25/23 09:27 Dose: Not Given Documented By: JHONATAN Non-Admin Reason: Med Not Available Octreotide Acetate 500 mcg/ (Sodium Chloride) 501 mls @ 50.1 mls/hr IVCONT .Q10H [facility] Last Admin: 04/25/23 05:43 Dose: 50 mcg/hr, 50.1 mls/hr Documented By: MAREK Ceftriaxone Sodium 1 gm/ (Sodium Chloride) 50 mls @ 100 mls/hr IV Q24H [facility] Levothyroxine Sodium (Levothyroxine Sodium 50 Mcg Tablet) 50 mcg PO DAILY@0600 [facility] Last Admin: 04/25/23 05:43 Dose: 50 mcg Documented By: MAREK Loratadine (Loratadine 10 Mg Tablet) 10 mg PO DAILY PRN PRN Reason: Allergy Symptoms Melatonin (Melatonin 3 Mg Tablet) 6 mg PO BEDTIME PRN PRN Reason: Insomnia Ondansetron HCl (Ondansetron Hcl 4 Mg/2 Ml Vial) 4 mg IVPUSH Q8H PRN PRN Reason: Nausea and Vomiting Pantoprazole Sodium (Pantoprazole Sodium 40 Mg/10 Ml Vial) 40 mg IVPUSH BID@0630,1630 [facility] Last Admin: 04/25/23 05:43 Dose: 40 mg Documented By: MAREK Potassium Chloride (Potassium Chloride Er 20 Meq Tab.Er.Prt) 20 meq PO DAILY [facility] Last Admin: 04/25/23 08:11 Dose: 20 meq Documented By: JHONATAN Sodium Chloride (0.9 % Sodium Chloride Flush 3 Ml Syringe) 3 ml IVFLUSH QSHIFT [facility] Last Admin: 04/25/23 08:11 Dose: Not Given Documented By: JHONATAN Non-Admin Reason: IV Running Vitamin D (Cholecalciferol (Vitamin D3) 25 Mcg Tablet) 50 mcg PO DAILY [facility] Last Admin: 04/25/23 08:11 Dose: 50 mcg Documented By: JHONATAN Labs 04/25/23 07:05 04/25/23 07:05 Labs: Laboratory Results - last 24 hr 04/24/23 04/24/23 04/24/23 14:19 16:05 16:49 MCV 90.8 MCH 28.0 MCHC 30.8 L RDW 16.3 H Plt Count 27 L D MPV 10.2 Immature Gran % (Auto) 0.3 Neut % (Auto) 78.8 H Lymph % (Auto) 10.0 L [place] % (Auto) 9.1 Eos % (Auto) 1.2 Baso % (Auto) 0.6 Lymph # (Auto) 0.3 L [place] # (Auto) 0.3 Eos # (Auto) 0.0 Baso # (Auto) 0.0 Abs Immat Gran (auto) 0.01 Absolute Neuts (auto) 2.7 Absolute Nucleated RBC 0.000 Nucleated RBC % (auto) 0.0 PT 17.9 H INR 1.5 H Anion Gap 13 Estim Creat Clear Calc 82.2 Estimated GFR 52 POC Glucose Random Glucose 201 H Calcium 8.7 D Total Bilirubin 1.6 H AST 35 H ALT 15 Alkaline Phosphatase 89 Total Protein 7.6 Albumin 3.6 Stool Occult Blood POSITIVE Blood Type A Positive Antibody Screen NEGATIVE Crossmatch See Detail 04/24/23 04/25/23 04/25/23 20:53 05:56 07:05 MCV 89.3 MCH 29.2 MCHC 32.7 RDW 15.9 Plt Count 36 L D MPV 13.3 H Immature Gran % (Auto) 0.6 H Neut % (Auto) 77.9 H Lymph % (Auto) 9.4 L [place] % (Auto) 9.8 Eos % (Auto) 1.7 Baso % (Auto) 0.6 Lymph # (Auto) 0.5 L [place] # (Auto) 0.5 Eos # (Auto) 0.1 Baso # (Auto) 0.0 Abs Immat Gran (auto) 0.03 Absolute Neuts (auto) 4.1 Absolute Nucleated RBC 0.000 Nucleated RBC % (auto) 0.0 PT INR Anion Gap 10 L Estim Creat Clear Calc 102.3 Estimated GFR > 60 POC Glucose 130 H 72 Random Glucose 68 Calcium 8.2 L Total Bilirubin AST ALT Alkaline Phosphatase Total Protein Albumin Stool Occult Blood Blood Type Antibody Screen Crossmatch 04/25/23 07:21 MCV MCH MCHC RDW Plt Count MPV Immature Gran % (Auto) Neut % (Auto) Lymph % (Auto) [place] % (Auto) Eos % (Auto) Baso % (Auto) Lymph # (Auto) [place] # (Auto) Eos # (Auto) Baso # (Auto) Abs Immat Gran (auto) Absolute Neuts (auto) Absolute Nucleated RBC Nucleated RBC % (auto) PT INR Anion Gap Estim Creat Clear Calc Estimated GFR POC Glucose 71 Random Glucose Calcium Total Bilirubin AST ALT Alkaline Phosphatase Total Protein Albumin Stool Occult Blood Blood Type Antibody Screen Crossmatch Assessment and Plan (1) GI (gastrointestinal bleed): Status: Acute (2) Acute on chronic anemia: Status: Acute Plan Pt is a 47-year-old Qatari-speaking female with a PMH significant for?uncontrolled insulin-dependent diabetes type 2, HLD, HTN, 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 Pt will be admitted to the hospital for treatment and further evaluation of acute on chronic anemia requiring transfusion. Acute on chronic anemia H&H 6.1/19.8 at time of presentation Stool positive for occult blood No obvious source of bleeding: Patient denies hemoptysis, hematemesis, hematochezia, melena, and hematuria s/p transfused 2 unit PRBCs continue octreotide drip GI>egd showed dieulafoy lesion and esophageal varices, nonbleeding, portal hypertensive gastropathy. Status post variceal banding, clip placement, hemo spray, give 1 unit PLT, Vit K, clear liquid diet Servin cirrhosis with ascites, thrombocytopenia S/P paracentesis today of 10.5L with symptomatic improvement Cultures pending Will treat prophylactically with ceftriaxone High-protein diet once no longer NPO Continue torsemide HTN Continue lisinopril, Torsemide Insulin-dependent diabetes type 2 SSI, Lantus Diabetic diet Hypothyroidism Continue levothyroxine Mild intermittent asthma Not in acute exacerbation Continue home inhalers Obesity class III Weight loss encouraged Full Code Attending:?Dr. Harris DVT Prophylaxis: Pneumatic boots Pt will require a hospitalization of at least two nights for treatment and further evaluation of?acute on chronic anemia requiring transfusion and further evaluation tomorrow with an EGD. Given patient's significant comorbidities including liver cirrhosis requiring regular paracentesis and her 2nd episode of anemia requiring transfusion within the past month, patient will require further hospitalized evaluation and close monitoring. Quality Stroke Does the patient have a stroke diagnosis?: No VTE Prior VTE?: No VTE Risk Level:: Medical - moderate - high VTE Device Contraindication: N/A - Device Ordered VTE Drug Contraindication: Treatment Not Indicated
--- NOTE | 2023-04-25 11:30 | PC.NURSE ---
Received report from MANAGER DIABETESMarielle. per report - no active bleed. varices found, hemo spray used, four bands applied. 650 ml given in or. remained npo after leaving ed, iv zofran given in or. vss. this rn no longer taking care of this pt. RN aware.
[2023-04-26] VITALS (7 sets, daily range): BP systolic 107–120; BP diastolic 51–63; PULSE 76–94; RESP 16–22; TEMP 36.3–36.7; O2SAT 93–99
[2023-04-26 07:04] LABS: Anion Gap 11 (12-20); Blood Urea Nitrogen 15 mg/dL (9-16); Calcium 8.2 mg/dL (8.4-10.2); Carbon Dioxide 24 mmol/L (22-29); Chloride 103 mmol/L (96-108); Creatinine Clr Calc Pharmacy 95.9; Estimated Glomerular Filt Rate > 60; Glucose Random 145 mg/dL (60-115); Potassium 4.2 mmol/L (3.3-5.1); Sodium 134 mmol/L (135-145)
--- NOTE | 2023-04-26 10:51 | MHC.CM.PN ---
Interview conducted w/SO: Pt lives w/SO and has daily check-ins by a nurse... SO indicates this person does nothing for her but 'checks on her everyday. He was unable to confirm agency or type of service. PCP is Dr. Verma. Pt takes community transport for appointments as no one in her family or [place] friends drives or has a car. She owns a walker, and has it here at [facility] w/her. D/C plan is to return home via [facility] Shuttle or Uber at time of D/C. CM to follow.
--- NOTE | 2023-04-26 11:39 | HO.PM.IMPN ---
Subjective Subjective Date of Service: 04/26/23 Review of Systems Follow-up GI bleed, ascites Feeling better, no pain Physical Exam Vital Signs: Vital Signs: Last Vital Signs Temp 98.1 F 04/26/23 07:40 Pulse 88 04/26/23 08:42 Resp 22 H 04/26/23 08:42 BP 118/58 L 04/26/23 07:40 Pulse Ox 94 04/26/23 07:40 O2 Del Method Room Air 04/26/23 07:40 O2 Flow Rate 3 04/25/23 20:00 BMI result Body Mass Index 51.2 Appearing in no acute distress lung sounds are clear to auscultation heart regular rate rhythm, clear S1, S2 positive bowel sounds, abdomen is soft, nontender neuro patient is alert x3, no focal deficits Objective Data Active Medications Acetaminophen (Acetaminophen 325 Mg Tablet) 650 mg PO Q6H PRN PRN Reason: Pain, Mild (Pain Scale 1-3) Albuterol Sulfate (Albuterol Sulfate (0.083%) 2.5 Mg/3 Ml Vial.Neb) 2.5 mg INHALE QID PRN PRN Reason: dyspnea Albuterol Sulfate (Albuterol Sulfate 90 Mcg 8 Gm Inhaler) 2 puff INHALE Q6H PRN PRN Reason: Wheezing Dextrose (Dextrose 50 % 25 Gm/50 Ml Syringe) 25 gm IVPUSH Q15M PRN; Protocol PRN Reason: per Hypoglycemia Standing Ord. Fluticasone Propionate (Fluticasone Propionate 250 Mcg Blst.W.Dev) 1 puff INHALE ID [facility] Last Admin: 04/26/23 08:41 Dose: 1 puff Documented By: EMILIANO Glucose (Glucose Gel 15 Gm Gel..Gram.) 15 gm PO Q15M PRN; Protocol PRN Reason: per Hypoglycemia Standing Ord. Octreotide Acetate 500 mcg/ (Sodium Chloride) 501 mls @ 50.1 mls/hr IVCONT .Q10H [facility] Last Admin: 04/26/23 03:00 Dose: 50 mcg/hr, 50.1 mls/hr Documented By: LISSETT Insulin Human Lispro (Insulin Lispro 100 Unit/Ml 3 Ml Vial) 0 unit SUBCUT QIDACHS [facility]; Protocol Last Admin: 04/26/23 08:12 Dose: Not Given Documented By: ROBERT Non-Admin Reason: No Insulin Coverage Levothyroxine Sodium (Levothyroxine Sodium 50 Mcg Tablet) 50 mcg PO DAILY@0600 [facility] Last Admin: 04/26/23 06:10 Dose: 50 mcg Documented By: LISSETT Loratadine (Loratadine 10 Mg Tablet) 10 mg PO DAILY PRN PRN Reason: Allergy Symptoms Melatonin (Melatonin 3 Mg Tablet) 6 mg PO BEDTIME PRN PRN Reason: Insomnia Ondansetron HCl (Ondansetron Hcl 4 Mg/2 Ml Vial) 4 mg IVPUSH Q8H PRN PRN Reason: Nausea and Vomiting Pantoprazole Sodium (Pantoprazole Sodium 40 Mg/10 Ml Vial) 40 mg IVPUSH BID@0630,1630 [facility] Last Admin: 04/26/23 06:10 Dose: 40 mg Documented By: LISSETT Potassium Chloride (Potassium Chloride Er 20 Meq Tab.Er.Prt) 20 meq PO DAILY [facility] Last Admin: 04/26/23 09:16 Dose: 20 meq Documented By: ROBERT Sodium Chloride (0.9 % Sodium Chloride Flush 3 Ml Syringe) 3 ml IVFLUSH QSHIFT [facility] Last Admin: 04/26/23 09:16 Dose: 3 ml Documented By: ROBERT Torsemide (Torsemide 20 Mg Tablet) 40 mg PO DAILY [facility]; Protocol Last Admin: 04/26/23 09:15 Dose: 40 mg Documented By: ROBERT Vitamin D (Cholecalciferol (Vitamin D3) 25 Mcg Tablet) 50 mcg PO DAILY [facility] Last Admin: 04/26/23 09:16 Dose: 50 mcg Documented By: ROBERT Labs 04/26/23 06:16 04/26/23 06:16 Labs: Laboratory Results - last 24 hr 04/24/23 04/25/23 04/25/23 16:05 11:53 19:05 MCV MCH MCHC RDW Plt Count MPV Immature Gran % (Auto) Neut % (Auto) Lymph % (Auto) [place] % (Auto) Eos % (Auto) Baso % (Auto) Lymph # (Auto) [place] # (Auto) Eos # (Auto) Baso # (Auto) Abs Immat Gran (auto) Absolute Neuts (auto) Absolute Nucleated RBC Nucleated RBC % (auto) Anion Gap Estim Creat Clear Calc Estimated GFR POC Glucose 52 L* 183 H Random Glucose Calcium Blood Type A Positive Antibody Screen NEGATIVE Crossmatch See Detail 04/25/23 04/26/23 04/26/23 20:44 06:16 07:55 MCV 89.7 MCH 28.9 MCHC 32.2 RDW 15.9 Plt Count 28 L MPV 11.7 Immature Gran % (Auto) 0.6 H Neut % (Auto) 85.6 H Lymph % (Auto) 6.8 L [place] % (Auto) 6.6 Eos % (Auto) 0.2 Baso % (Auto) 0.2 Lymph # (Auto) 0.4 L [place] # (Auto) 0.4 Eos # (Auto) 0.0 Baso # (Auto) 0.0 Abs Immat Gran (auto) 0.03 Absolute Neuts (auto) 4.5 Absolute Nucleated RBC 0.000 Nucleated RBC % (auto) 0.0 Anion Gap 11 L Estim Creat Clear Calc 95.9 Estimated GFR > 60 POC Glucose 216 H 138 H Random Glucose 145 H Calcium 8.2 L Blood Type Antibody Screen Crossmatch 04/26/23 11:12 MCV MCH MCHC RDW Plt Count MPV Immature Gran % (Auto) Neut % (Auto) Lymph % (Auto) [place] % (Auto) Eos % (Auto) Baso % (Auto) Lymph # (Auto) [place] # (Auto) Eos # (Auto) Baso # (Auto) Abs Immat Gran (auto) Absolute Neuts (auto) Absolute Nucleated RBC Nucleated RBC % (auto) Anion Gap Estim Creat Clear Calc Estimated GFR POC Glucose 170 H Random Glucose Calcium Blood Type Antibody Screen Crossmatch Assessment and Plan (1) GI (gastrointestinal bleed): Status: Acute (2) Acute on chronic anemia: Status: Acute Plan Pt is a 47-year-old [place]an-speaking female with a PMH significant for?uncontrolled insulin-dependent diabetes type 2, HLD, HTN, 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 Pt will be admitted to the hospital for treatment and further evaluation of acute on chronic anemia requiring transfusion. Acute on chronic anemia H&H 6.1/19.8 at time of presentation s/p transfused 2 unit PRBCs continue octreotide drip GI>egd showed dieulafoy lesion and esophageal varices, nonbleeding, portal hypertensive gastropathy. Status post variceal banding, clip placement, hemo spray, give 1 unit PLT, Vit K, clear liquid diet, advance to regular Servin cirrhosis with ascites, thrombocytopenia S/P paracentesis today of 10.5L with symptomatic improvement High-protein diet Continue torsemide HTN Continue lisinopril, Torsemide Insulin-dependent diabetes type 2 SSI, Lantus Diabetic diet Hypothyroidism Continue levothyroxine Mild intermittent asthma Not in acute exacerbation Continue home inhalers Obesity class III Weight loss encouraged Full Code Attending:?Dr. Harris DVT Prophylaxis: Pneumatic boots continue hopsital stay for treatment and further evaluation of?acute on chronic anemia requiring transfusion and further evaluation tomorrow with an EGD. Given patient's significant comorbidities including liver cirrhosis requiring regular paracentesis and her 2nd episode of anemia requiring transfusion within the past month, patient will require further hospitalized evaluation and close monitoring. Quality Stroke Does the patient have a stroke diagnosis?: No VTE Prior VTE?: No VTE Risk Level:: Medical - moderate - high VTE Device Contraindication: N/A - Device Ordered VTE Drug Contraindication: Treatment Not Indicated
[2023-04-27] VITALS (10 sets, daily range): BP systolic 108–133; BP diastolic 59–77; PULSE 73–87; RESP 16–20; TEMP 36.2–36.6; O2SAT 93–99
[2023-04-27 05:52] LABS: INTERNATIONAL NORM RATIO 1.5 (0.9-1.1); Prothrombin Time 18.6 SEC (11.1-13.3)
[2023-04-27 05:56] LABS: Anion Gap 12 (12-20); Blood Urea Nitrogen 22 mg/dL (9-16); Calcium 8.3 mg/dL (8.4-10.2); Carbon Dioxide 27 mmol/L (22-29); Chloride 102 mmol/L (96-108); Creatinine Clr Calc Pharmacy 80.7; Estimated Glomerular Filt Rate 51; Glucose Random 155 mg/dL (60-115); Potassium 4.5 mmol/L (3.3-5.1); Sodium 136 mmol/L (135-145)
--- NOTE | 2023-04-27 09:22 | MHC.CLN ---
NUTRITION PER PROVIDER NOTE, HIGH PROTEIN DIET. CHANGED SUPPLEMENT FROM ENSURE TID TO ENSURE MAX PROTEIN BID. PROVIDES 300 KCALS, 60 G PROTEIN AND IS A LOWER CARBOHYDRATE/LOWER CALORIE SUPPLEMENT.
--- NOTE | 2023-04-27 09:48 | HO.POSTANES ---
Post Anesthesia Evaluation Post Anesthesia Evaluation Date of Service: 04/27/23 Vital Signs: Vital Signs Temp Pulse Resp BP Pulse Ox O2 Del Method O2 Flow Rate 04/27/23 07:46 79 18 04/27/23 07:22 97.3 F 82 18 117/61 99 Nasal Cannula 2 04/27/23 04:00 98 F 87 16 109/59 L 93 Room Air Anesthesia: General Endotracheal-GETA Mental Status: Awake Pain Control: Satisfactory Nausea/Vomiting: None Hydration: Adequate Anesthesia-Related Issues: No Anes. Related Issues
--- NOTE | 2023-04-27 10:56 | MHC.CM.PN ---
PER MD ROUNDS, PT EXPECTED TO BE READY TO DC TOMORROW DCP REMAINS HOME VIA [facility] [place] [facility]
--- NOTE | 2023-04-27 11:15 | HO.PM.IMPN ---
Subjective Subjective Date of Service: 04/27/23 Review of Systems Follow-up GI bleed, ascites Feeling better, no pain Physical Exam Vital Signs: Vital Signs: Last Vital Signs Temp 97.3 F 04/27/23 07:22 Pulse 79 04/27/23 07:46 Resp 18 04/27/23 07:46 BP 117/61 04/27/23 07:22 Pulse Ox 99 04/27/23 07:22 O2 Del Method Nasal Cannula 04/27/23 07:22 O2 Flow Rate 2 04/27/23 07:22 BMI result Body Mass Index 51.2 Appearing in no acute distress lung sounds are clear to auscultation heart regular rate rhythm, clear S1, S2 positive bowel sounds, abdomen is soft, nontender neuro patient is alert x3, no focal deficits Objective Data Active Medications Acetaminophen (Acetaminophen 325 Mg Tablet) 650 mg PO Q6H PRN PRN Reason: Pain, Mild (Pain Scale 1-3) Albuterol Sulfate (Albuterol Sulfate (0.083%) 2.5 Mg/3 Ml Vial.Neb) 2.5 mg INHALE QID PRN PRN Reason: dyspnea Albuterol Sulfate (Albuterol Sulfate 90 Mcg 8 Gm Inhaler) 2 puff INHALE Q6H PRN PRN Reason: Wheezing Dextrose (Dextrose 50 % 25 Gm/50 Ml Syringe) 25 gm IVPUSH Q15M PRN; Protocol PRN Reason: per Hypoglycemia Standing Ord. Fluticasone Propionate (Fluticasone Propionate 250 Mcg Blst.W.Dev) 1 puff INHALE ID [facility] Last Admin: 04/27/23 07:46 Dose: 1 puff Documented By: JA Glucose (Glucose Gel 15 Gm Gel..Gram.) 15 gm PO Q15M PRN; Protocol PRN Reason: per Hypoglycemia Standing Ord. Octreotide Acetate 500 mcg/ (Sodium Chloride) 501 mls @ 50.1 mls/hr IVCONT .Q10H [facility] Last Admin: 04/27/23 08:09 Dose: 50 mcg/hr, 50.1 mls/hr Documented By: LEANN Insulin Human Lispro (Insulin Lispro 100 Unit/Ml 3 Ml Vial) 0 unit SUBCUT QIDACHS [facility]; Protocol Last Admin: 04/27/23 07:32 Dose: Not Given Documented By: LEANN Non-Admin Reason: No Insulin Coverage Levothyroxine Sodium (Levothyroxine Sodium 50 Mcg Tablet) 50 mcg PO DAILY@0600 [facility] Last Admin: 04/27/23 05:41 Dose: 50 mcg Documented By: LISSETT Loratadine (Loratadine 10 Mg Tablet) 10 mg PO DAILY PRN PRN Reason: Allergy Symptoms Melatonin (Melatonin 3 Mg Tablet) 6 mg PO BEDTIME PRN PRN Reason: Insomnia Last Admin: 04/26/23 23:16 Dose: 6 mg Documented By: LISSETT Ondansetron HCl (Ondansetron Hcl 4 Mg/2 Ml Vial) 4 mg IVPUSH Q8H PRN PRN Reason: Nausea and Vomiting Pantoprazole Sodium (Pantoprazole Sodium 40 Mg/10 Ml Vial) 40 mg IVPUSH BID@0630,1630 [facility] Last Admin: 04/27/23 05:41 Dose: 40 mg Documented By: LISSETT Potassium Chloride (Potassium Chloride Er 20 Meq Tab.Er.Prt) 20 meq PO DAILY [facility] Last Admin: 04/27/23 08:09 Dose: 20 meq Documented By: LEANN Sodium Chloride (0.9 % Sodium Chloride Flush 3 Ml Syringe) 3 ml IVFLUSH QSHIFT [facility] Last Admin: 04/27/23 08:10 Dose: 3 ml Documented By: LEANN Torsemide (Torsemide 20 Mg Tablet) 40 mg PO DAILY [facility]; Protocol Last Admin: 04/27/23 08:09 Dose: 40 mg Documented By: LEANN Vitamin D (Cholecalciferol (Vitamin D3) 25 Mcg Tablet) 50 mcg PO DAILY [facility] Last Admin: 04/27/23 08:09 Dose: 50 mcg Documented By: LEANN Labs 04/27/23 07:20 04/27/23 05:12 Labs: Laboratory Results - last 24 hr 04/26/23 04/26/23 04/26/23 11:12 16:19 20:52 MCV MCH MCHC RDW Plt Count MPV Absolute Nucleated RBC Nucleated RBC % (auto) Hold Purple Top PT INR Anion Gap Estim Creat Clear Calc Estimated GFR POC Glucose 170 H 142 H 145 H Random Glucose Calcium 04/27/23 04/27/23 04/27/23 05:12 07:20 07:26 MCV Cancelled 93.3 MCH Cancelled 29.5 MCHC Cancelled 31.6 RDW Cancelled 16.0 Plt Count Cancelled 25 L MPV Cancelled 13.1 H Absolute Nucleated RBC Cancelled 0.000 Nucleated RBC % (auto) Cancelled 0.0 Hold Purple Top SEE NOTE PT 18.6 H INR 1.5 H Anion Gap 12 Estim Creat Clear Calc 80.7 Estimated GFR 51 POC Glucose 122 H Random Glucose 155 H Calcium 8.3 L Assessment and Plan (1) GI (gastrointestinal bleed): Status: Acute (2) Acute on chronic anemia: Status: Acute Plan Pt is a 47-year-old British-speaking female with a PMH significant for?uncontrolled insulin-dependent diabetes type 2, HLD, HTN, 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 Pt will be admitted to the hospital for treatment and further evaluation of acute on chronic anemia requiring transfusion. Acute on chronic anemia H&H 6.1/19.8 at time of presentation s/p transfused 2 unit PRBCs s/p octreotide drip GI>egd showed dieulafoy lesion and esophageal varices, nonbleeding, portal hypertensive gastropathy. Status post variceal banding, clip placement, hemo spray, given 1 unit PLT, Vit K, regular diet 1 unit prbc today, keep hg >8 Servin cirrhosis with ascites, thrombocytopenia S/P paracentesis today of 10.5L with symptomatic improvement High-protein diet Continue torsemide HTN Continue lisinopril, Torsemide Insulin-dependent diabetes type 2 SSI, Lantus Diabetic diet Hypothyroidism Continue levothyroxine Mild intermittent asthma Not in acute exacerbation Continue home inhalers Obesity class III Weight loss encouraged Full Code Attending:?Dr. Mares DVT Prophylaxis: Pneumatic boots continue hopsital stay for treatment and further evaluation of?acute on chronic anemia requiring transfusion and further evaluation tomorrow with an EGD. Given patient's significant comorbidities including liver cirrhosis requiring regular paracentesis and her 2nd episode of anemia requiring transfusion within the past month, patient will require further hospitalized evaluation and close monitoring. Quality Stroke Does the patient have a stroke diagnosis?: No VTE Prior VTE?: No VTE Risk Level:: Medical - moderate - high VTE Device Contraindication: N/A - Device Ordered VTE Drug Contraindication: Treatment Not Indicated
[2023-04-27 16:19] LABS: Glucose, Whole Blood 163 mg/dL (60-115)
[2023-04-27] MEDS: Pantoprazole Sodium 40 MG/10 ML VIAL IVPUSH (16:36)
[2023-04-27] MEDS: Insulin Lispro 100 UNIT/ML 3 ML VIAL SUBCUT (16:36)
[2023-04-27] MEDS: 0.9 % Sodium Chloride Flush 3 ML SYRINGE IVFLUSH (16:36)
--- NOTE | 2023-04-27 17:54 | P.PNGI_ITS ---
Subjective Subjective Date of Service: 04/27/23 Interval History: denies melena, rectal bleeding says she is havign normal colored stools no abdominal pain feels hungry Critical Care Time (minutes): 0 Physical Exam 2 Vital Signs: Vital Signs: Last Vital Signs Temp 97.2 F 04/27/23 15:31 Pulse 87 04/27/23 15:31 Resp 16 04/27/23 15:31 BP 130/77 04/27/23 15:31 Pulse Ox 98 04/27/23 15:31 O2 Del Method Nasal Cannula 04/27/23 15:31 O2 Flow Rate 2 04/27/23 15:31 Oxygen Flow Rate 2 04/27/23 12:00 BMI result Body Mass Index 51.2 EXAM: GENERAL: The patient is obese, hirsute VITAL SIGNS:see workflow HEENT: Nonicteric sclerae, PERRLA, EOMI. Oropharynx clear. Moist mucous membranes. Conjunctivae appear pale. No thyroid mass. CHEST: Chest wall is nontender. HEART: Regular rate and rhythm without murmurs. LUNGS: Clear to auscultation bilaterally. ABDOMEN: mildly tense, positive bowel sounds, nontender, no organomegaly.no flank tenderness SKIN: No rash, no excessive bruising, petechiae, or purpura. NEUROLOGIC: Cranial nerves II-XII intact without motor/sensory deficit. psych- nml Objective Data Labs 04/27/23 07:20 04/27/23 05:12 Labs: Laboratory Results - last 24 hr 04/24/23 04/26/23 04/27/23 16:05 20:52 05:12 WBC Cancelled RBC Cancelled Hgb Cancelled Hct Cancelled MCV Cancelled MCH Cancelled MCHC Cancelled RDW Cancelled Plt Count Cancelled MPV Cancelled Absolute Nucleated RBC Cancelled Nucleated RBC % (auto) Cancelled Hold Purple Top SEE NOTE PT 18.6 H INR 1.5 H Sodium 136 Potassium 4.5 Chloride 102 Carbon Dioxide 27 Anion Gap 12 BUN 22 H Creatinine 1.14 Estim Creat Clear Calc 80.7 Estimated GFR 51 POC Glucose 145 H Random Glucose 155 H Calcium 8.3 L Blood Type A Positive Antibody Screen NEGATIVE Crossmatch See Detail 04/27/23 04/27/23 04/27/23 07:20 07:26 11:33 WBC 5.5 RBC 2.54 L Hgb 7.5 L Hct 23.7 L MCV 93.3 MCH 29.5 MCHC 31.6 RDW 16.0 Plt Count 25 L MPV 13.1 H Absolute Nucleated RBC 0.000 Nucleated RBC % (auto) 0.0 Hold Purple Top PT INR Sodium Potassium Chloride Carbon Dioxide Anion Gap BUN Creatinine Estim Creat Clear Calc Estimated GFR POC Glucose 122 H 176 H Random Glucose Calcium Blood Type Antibody Screen Crossmatch 04/27/23 16:08 WBC RBC Hgb Hct MCV MCH MCHC RDW Plt Count MPV Absolute Nucleated RBC Nucleated RBC % (auto) Hold Purple Top PT INR Sodium Potassium Chloride Carbon Dioxide Anion Gap BUN Creatinine Estim Creat Clear Calc Estimated GFR POC Glucose 163 H Random Glucose Calcium Blood Type Antibody Screen Crossmatch Procedures Date of Service Date of Service: 04/27/23 Progress Note: A&P Assessment and plan (1) Acute on chronic anemia: Status: Acute (2) GI (gastrointestinal bleed): Status: Acute Plan 1/ Acute on chronic anemia from dieulafoy and varices, s/p banding and clip with hemospray, HGB seems more stable, 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 Quality Stroke Does the patient have a stroke diagnosis?: No VTE Prior VTE?: No VTE Risk Level:: Medical - moderate - high VTE Device Contraindication: N/A - Device Ordered VTE Drug Contraindication: Treatment Not Indicated
[2023-04-27] MEDS: Fluticasone Propionate 250 MCG BLST.W.DEV 1 PUFF INHALE (20:06)
[2023-04-27 20:25] LABS: Glucose, Whole Blood 138 mg/dL (60-115)
[2023-04-28] VITALS (9 sets, daily range): BP systolic 118–133; BP diastolic 56–67; PULSE 68–88; RESP 15–20; TEMP 36.1–36.4; O2SAT 93–99
[2023-04-28] MEDS: Levothyroxine Sodium 50 MCG TABLET PO (05:38)
[2023-04-28] MEDS: Pantoprazole Sodium 40 MG/10 ML VIAL IVPUSH (05:38)
[2023-04-28 07:18] LABS: Glucose, Whole Blood 230 mg/dL (60-115)
[2023-04-28 07:40] LABS: Hematocrit 27.4 % (37.0-47.0); Hemoglobin 8.4 g/dl (12.0-16.0); Mean Corpuscular HGB Conc 30.7 g/dl (31.0-35.0); Mean Corpuscular Hemoglobin 28.2 pg (27.0-33.0); Mean Corpuscular Volume 91.9 fL (80.0-98.0); Red Blood Count 2.98 X10*6/uL (4.20-5.50); Red Cell Distribution Width 15.8 % (11.0-16.0); White Blood Count 6.2 X10*3/uL (4.8-10.8)
[2023-04-28 07:41] LABS: Platelet Count 24 X10*3/uL (160-400)
[2023-04-28 07:49] LABS: Anion Gap 13 (12-20); Blood Urea Nitrogen 30 mg/dL (9-16); Calcium 8.4 mg/dL (8.4-10.2); Carbon Dioxide 24 mmol/L (22-29); Chloride 104 mmol/L (96-108); Creatinine Clr Calc Pharmacy 73.6; Estimated Glomerular Filt Rate 46; Glucose Random 213 mg/dL (60-115); Potassium 4.6 mmol/L (3.3-5.1); Sodium 136 mmol/L (135-145)
[2023-04-28] MEDS: Insulin Lispro 100 UNIT/ML 3 ML VIAL SUBCUT ×2 (07:51→11:35)
[2023-04-28] MEDS: Cholecalciferol (Vitamin D3) 25 MCG TABLET 50 MCG PO (07:51)
[2023-04-28] MEDS: Sucralfate 1 GM TABLET PO (07:51)
[2023-04-28] MEDS: Potassium Chloride ER 20 MEQ TAB.ER.PRT PO (07:51)
[2023-04-28] MEDS: Atorvastatin Calcium 20 MG TABLET PO (07:52)
[2023-04-28] MEDS: carvediloL 3.125 MG TABLET PO (07:52)
[2023-04-28] MEDS: Torsemide 20 MG TABLET 40 MG PO (07:52)
[2023-04-28] MEDS: 0.9 % Sodium Chloride Flush 3 ML SYRINGE IVFLUSH (07:54)
[2023-04-28] MEDS: Fluticasone Propionate 250 MCG BLST.W.DEV 1 PUFF INHALE (08:29)
--- NOTE | 2023-04-28 09:32 | PM.DS ---
DS: Providers Provider Date of Service: 04/28/23 Date of admission: 04/24/23 19:02 Primary care physician: Radha Anne MD Consults: 04/24/23 21:18 Consult to Gastroenterology Routine Consulting Provider: Sergei Verma Reason for consultation: GI bleed DS: Diagnosis Discharge Diagnosis (1) Acute on chronic anemia: Status: Acute (2) GI (gastrointestinal bleed): Status: Acute DS: Summary Hospital Course Hospital Course: history and physical as per admitting provider. Pt is a 47-year-old Danish-speaking female with a PMH significant for?uncontrolled insulin-dependent diabetes type 2, HLD, HTN, liver cirrhosis secondary to CROCKETT requiring frequent paracenteses, chronic thrombocytopenia, AMY, PCOS with acromegaly, nontoxic multinodular goiter, and mild intermittent asthma who presents to the ED after routine labs found severe anemia in need of a transfusion. Patient last received paracentesis earlier today which removed 10.7 L of clear yellow fluid. Routine labs were drawn and were significant for H&H of 6.1/19.8. Patient was called and advised to present to the ED for blood transfusion and further evaluation of possible GI bleed. Patient herself has no acute medical complaints. States she normally feels short of breath when she has ascitic fluid buildup, but currently feels fine. Patient denies any known source of bleeding. Denies hematemesis, hemoptysis, hematochezia, melena, or hematuria. Patient was last transfused here at the hospital in June of 2022 where she received 2 units PRBCs and subsequently developed TRALI/acute hypoxic respiratory failure that required intubation and ICU admission. Patient reports she was also transfused 1 month prior on March 27 or at [facility]. She is uncertain how many units she received, but states the workup there was negative for acute bleeding, however [facility] records have not yet been reviewed. Currently patient has no acute medical complaints. Denies shortness of breath. No lightheadedness, dizziness. No increase in fatigue or weakness. Denies chest pain/pressure, palpitations. No fever, chills, nausea, vomiting, abdominal pain. In the ED pt was afebrile but tachycardic up to 107, tachypneic up to 24, variable BP mostly WNL, and satting at 95% on RA. Labs were significant for H&H of 6.1/19.8, sodium 133, total bilirubin 1.6, AST 35. Stool was positive for occult blood. Pt was treated with furosemide, ceftriaxone, Protonix, and placed on an octreotide drip. Pt will be admitted to the hospital for treatment and further evaluation of acute on chronic anemia requiring transfusion. 47-year-old woman treated for acute on chronic anemia secondary to Dieulafoy's lesion, esophageal varices and portal hypertension gastropathy. She was seen and evaluated by Gastroenterology, status post EGD status post variceal banding, clip placement and hemo spray. She received a total of 2 units of packed red blood cells, 1 unit of platelets and 1 dose of vitamin K. status post octreotide for 48 hours. H&H stable. He has a history of CROCKETT cirrhosis with ascites and is status post paracentesis with 10.5 L removed. Encourage high-protein diet, continue torsemide. at this time patient is stable for discharge home. She should follow-up with Gastroenterology for endoscopy in 3-4 weeks. She also is connected to [facility] in [place] and the plan is for a likely TIPS procedure in the future. Diabetes mellitus. Continue home medications Hypothyroidism. Continue levothyroxine Mild intermittent asthma. No exacerbation during hospitalization. Continue home inhalers Morbid obesity. Discussed importance of weight management as this may be contributing to worsening of other comorbidities Time Attestation Discharge coordination time: Greater than 30 minutes Quality: Safe Use of Opioids Does Pt have an Active Cancer Diagnosis on the Problem List?: No Quality: Stroke Does the patient have a stroke diagnosis?: No Physical Exam Vital Signs: Vital Signs: Last Vital Signs Temp 97.5 F 04/28/23 07:17 Pulse 84 04/28/23 08:30 Resp 16 04/28/23 08:30 BP 122/62 04/28/23 07:17 Pulse Ox 93 04/28/23 07:17 O2 Del Method Room Air 04/28/23 07:17 O2 Flow Rate 2 04/28/23 04:00 Oxygen Flow Rate 2 04/27/23 12:00 BMI result Body Mass Index 51.2 Appearing in no acute distress head is normocephalic atraumatic eyes pupils are PERRLA sclera is anicteric mouth throat mucous membranes are intact and moist neck is supple no lymphadenopathy, no JVD noted lung sounds are clear to auscultation heart regular rate rhythm, clear S1, S2 positive bowel sounds, abdomen is soft, nontender neuro patient is alert x3, no focal deficits DS: Data Data Completed and Pending Completed studies during hospitalization [Text1]: Procedures Drainage of Peritoneal Cavity, Percutaneous Approach (06/21/22) Insertion of Endotracheal Airway into Trachea, Via Natural or Artificial Opening (06/21/22) Insertion of Infusion Device into Right Basilic Vein, Percutaneous Approach (05/30/22) Insertion of Infusion Device into Superior Vena Cava, Percutaneous Approach (06/21/22) Introduction of Vasopressor into Central Vein, Percutaneous Approach (06/21/22) Respiratory Ventilation, Greater than 96 Consecutive Hours (06/21/22) Transfusion of Nonautologous Red Blood Cells into Peripheral Vein, Percutaneous Approach (06/21/22) Ultrasonography of Superior Vena Cava, Guidance (06/21/22) Labs on day of discharge: Laboratory Results - last 24 hr 04/24/23 04/27/23 04/27/23 16:05 05:12 11:33 WBC Cancelled RBC Cancelled Hgb Cancelled Hct Cancelled MCV Cancelled MCH Cancelled MCHC Cancelled RDW Cancelled Plt Count Cancelled MPV Cancelled Absolute Nucleated RBC Cancelled Nucleated RBC % (auto) Cancelled Sodium Potassium Chloride Carbon Dioxide Anion Gap BUN Creatinine Estim Creat Clear Calc Estimated GFR POC Glucose 176 H Random Glucose Calcium Blood Type A Positive Antibody Screen NEGATIVE Crossmatch See Detail 04/27/23 04/27/23 04/28/23 16:08 20:16 06:17 WBC 6.2 RBC 2.98 L Hgb 8.4 L Hct 27.4 L MCV 91.9 MCH 28.2 MCHC 30.7 L RDW 15.8 Plt Count 24 L MPV Not Reportable Absolute Nucleated RBC 0.000 Nucleated RBC % (auto) 0.0 Sodium 136 Potassium 4.6 Chloride 104 Carbon Dioxide 24 Anion Gap 13 BUN 30 H Creatinine 1.25 Estim Creat Clear Calc 73.6 Estimated GFR 46 POC Glucose 163 H 138 H Random Glucose 213 H Calcium 8.4 Blood Type Antibody Screen Crossmatch 04/28/23 07:14 WBC RBC Hgb Hct MCV MCH MCHC RDW Plt Count MPV Absolute Nucleated RBC Nucleated RBC % (auto) Sodium Potassium Chloride Carbon Dioxide Anion Gap BUN Creatinine Estim Creat Clear Calc Estimated GFR POC Glucose 230 H Random Glucose Calcium Blood Type Antibody Screen Crossmatch Discharge Plan Discharge Anticipated Discharge Date/Time: 04/28/23 09:27 Patient Disposition: Home, Self-Care Discharge Diagnosis: Acute on chronic anemia Dieulafoy's lesion, esophageal varices, portal hypertensive gastropathy Crockett cirrhosis with ascites Paracentesis Referrals: Radha Anne MD [Primary Care Provider] - 1 Week Discharge Medications: New atorvastatin 20 mg Tablet 20 mg PO DAILY Qty: 30 0RF sucralfate 1 gram Tablet 1 g PO BIDAC Qty: 60 0RF carvedilol 3.125 mg Tablet 3.125 mg PO BID Qty: 60 0RF Protocol: Hold for SBP/HR < HOLD for SBP < : 90 HOLD for HR < : 60 Continued Toujeo Max U-300 SoloStar 300 unit/mL (3 mL) insulin pen 80 unit subcut BEDTIME omeprazole 40 mg Capsule,Delayed Release(Dr/Ec) 40 mg PO DAILY@0630 Qty: 30 0RF insulin lispro 100 unit/mL insulin pen 26 unit subcut TIDAC albuterol sulfate 2.5 mg /3 mL (0.083 %) solution for nebulization 2.5 mg inhalation QID PRN (Reason: dyspnea) Asmanex HFA 200 mcg/actuation HFA aerosol inhaler 1 puff INHALATION BID (DME) FreeStyle Lite Strips Strip See Rx Instructions .ROUTE .MEDSUPPLY Qty: 10 Rx Instructions: test 3x a day (DME) lancets [FreeStyle Lancets] 28 gauge misc See Rx Instructions .ROUTE .MEDSUPPLY Qty: 100 Rx Instructions: test 3x a day albuterol sulfate [Ventolin HFA] 90 mcg/actuation HFA aerosol inhaler 2 puff inhalation Q6H PRN (Reason: Wheezing) levothyroxine 50 mcg tablet 50 mcg PO DAILY@0600 cholecalciferol (vitamin D3) [Vitamin D3] 50 mcg (2,000 unit) capsule 50 mcg PO DAILY spironolactone 100 mg tablet 200 mg PO DAILY (DME) FreeStyle Brooke 2 Sensor Kit See Rx Instructions .ROUTE DAILY Qty: 1 Rx Instructions: As directed loratadine 10 mg tablet 10 mg PO DAILY PRN (Reason: Allergy Symptoms) (DME) pen needle, diabetic [Pentips] 32 gauge x 5/32 needle See Rx Instructions .ROUTE .MEDSUPPLY Qty: 1200 Rx Instructions: As directed potassium chloride 20 mEq tablet,ER particles/crystals 20 meq PO DAILY torsemide 20 mg tablet 40 mg PO DAILY Discharge Orders: Discharge Order (Routine); Ordered 04/28/23 Ordered By: Sahara Mistry Diet: Advance to usual diet Activity on Discharge: As tolerated Stand Alone Forms: Patient Portal Discharge page Care Plan Goals: Endoscopy in 3-4 weeks, follow-up with Gastroenterology Follow-up providers at [facility] regarding possible TIPS procedure Health Concerns: Acute on chronic anemia Dieulafoy's lesion, esophageal varices, portal hypertensive gastropathy Crockett cirrhosis with ascites Paracentesis Plan of Treatment: follow-up with primary care provider as needed Assessment: see discharge summary
[2023-04-28 11:08] LABS: Glucose, Whole Blood 152 mg/dL (60-115)
--- NOTE | 2023-04-28 14:23 | MHC.CM.PN ---
Patient is discharged to home via BLS today. Transport is booked for 6pm case picker. Home services will resume with [facility]. DC info has been sent to the agency via [employer]. A VM was left for S reporting discharge today request for resumption of services.
== END 2023-04-28 16:25 | disposition home health service (06) | DRG 241 ==
LOC: HO.ED 18:15 → HO.EDOVER 19:07 → HO.S3 04-25 15:12
PROVIDERS: Internal Medicine Gastroenterology; Admitting Provider Student in an Organized Health Care Education/Training Program; Emergency Provider Emergency Medicine; PCP Family Medicine; Visit Provider Nurse Practitioner Acute Care
PROC: 0DJ08ZZ Inspection of Upper Intestinal Tract, Via Natural or Artificial Opening Endoscopic (ICD-10-PCS; CPT 43235; principal; 2023-04-25 08:30)
DX: K31.82 Dieulafoy lesion (hemorrhagic) of stomach and duodenum (principal); I85.11 Secondary esophageal varices with bleeding; K76.6 Portal hypertension; R18.8 Other ascites; Z68.43 Body mass index [BMI] 50.0-59.9, adult; D62 Acute posthemorrhagic anemia; K74.69 Other cirrhosis of liver; D69.59 Other secondary thrombocytopenia; E11.40 Type 2 diabetes mellitus with diabetic neuropathy, unspecified; E03.9 Hypothyroidism, unspecified; E28.2 Polycystic ovarian syndrome; G47.33 Obstructive sleep apnea (adult) (pediatric); E78.5 Hyperlipidemia, unspecified; K75.81 Nonalcoholic steatohepatitis (NASH); E66.01 Morbid (severe) obesity due to excess calories; I10 Essential (primary) hypertension; J45.20 Mild intermittent asthma, uncomplicated; Z79.4 Long term (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 insulin; Z87.891 Personal history of nicotine dependence; Z79.890 Hormone replacement therapy; Z79.899 Other long term (current) drug therapy; K31.89 Other diseases of stomach and duodenum
CPT/HCPCS: 36415; 80048; 80053; 82272; 82947; 85025; 85027; 85610; 86850; 86900; 86901; 86923; 99285; C9113; J0696; J1940; J2354; J3430; P9016; P9073

== ENCOUNTER → 2023-04-24 19:02 | Outpatient (BNV) | payer MEDICAID, SELFPAY | PROVIDERS: Admitting Provider Student in an Organized Health Care Education/Training Program; Emergency Provider Emergency Medicine; Visit Provider Internal Medicine Gastroenterology | DX: D64.9 Anemia, unspecified (principal); K92.2 Gastrointestinal hemorrhage, unspecified | CPT/HCPCS: 43255; 99223; 99232 ==

== ENCOUNTER → 2023-04-24 19:02 | Outpatient (BNV) | payer MEDICAID, SELFPAY | PROVIDERS: Admitting Provider Student in an Organized Health Care Education/Training Program; Emergency Provider Emergency Medicine; Visit Provider Student in an Organized Health Care Education/Training Program | DX: K92.2 Gastrointestinal hemorrhage, unspecified (principal); D64.9 Anemia, unspecified | CPT/HCPCS: 99223; 99232; 99239 ==

== ENCOUNTER 2023-05-01 09:51 | Day surgery (SDC) | payer MEDICAID, SELFPAY ==
--- NOTE | ~2023-05-01 | US_ITS ---
ULTRASOUND GUIDED PARACENTESIS HISTORY: Ascites. Therapeutic drainage. Risks and benefits and possible complications were discussed with the patient and consent form was signed. A safe pocket of ascitic fluid lower quadrant was identified using ultrasound guidance, and the overlying skin was marked, prepped and draped in sterile fashion. 1% lidocaine was used as a local anesthetic. Using ultrasound guidance, a 5 fr catheter was placed into the ascitic pocket. 6.6 liters of yellow fluid was removed passively. The catheter was then removed. A few customer response representative images from before and after the examination were obtained. The procedure was performed by Jude Stephenson PA-C and supervised by Dr. Bentley. US/US paracentesis abd w/image IMPRESSION: Ultrasound-guided paracentesis as described above. No immediate complications
[2023-05-01 10:16] VITALS: BMI 51.2
[2023-05-01 10:34] LABS: Glucose, Whole Blood 188 mg/dL (60-115)
--- NOTE | 2023-05-01 10:51 | PC.NURSE ---
Per Jude Stephenson no urine test needed pre procedure.
[2023-05-01] MEDS: Lidocaine HCl 1 % MPF 5 ML VIAL SUBCUT (12:01)
[2023-05-01 12:20] VITALS: BP 127/66; PULSE 84; RESP 16; TEMP 36.6; O2SAT 98
[2023-05-01 12:35] VITALS: BP 137/75; PULSE 78; RESP 16; O2SAT 99
[2023-05-01 12:50] VITALS: BP 141/74; PULSE 88; RESP 16; TEMP 36.6; O2SAT 99
== END 2023-05-01 13:13 | disposition home or self-care (01) ==
LOC: HO.SSS 09:51
PROVIDERS: PCP Family Medicine; Visit Provider Physician Assistant Surgical
DX: R18.8 Other ascites (principal); K75.81 Nonalcoholic steatohepatitis (NASH); K74.60 Unspecified cirrhosis of liver; I85.00 Esophageal varices without bleeding; I10 Essential (primary) hypertension; E78.5 Hyperlipidemia, unspecified; E04.2 Nontoxic multinodular goiter; E11.21 Type 2 diabetes mellitus with diabetic nephropathy; J45.909 Unspecified asthma, uncomplicated; G47.33 Obstructive sleep apnea (adult) (pediatric); E87.1 Hypo-osmolality and hyponatremia; E66.01 Morbid (severe) obesity due to excess calories; Z68.42 Body mass index [BMI] 45.0-49.9, adult; Z79.4 Long term (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 insulin; Z88.0 Allergy status to penicillin; Z88.5 Allergy status to narcotic agent; Z88.8 Allergy status to other drugs, medicaments and biological substances; Z87.891 Personal history of nicotine dependence; F12.90 Cannabis use, unspecified, uncomplicated
CPT/HCPCS: 49083; 82947; C1729; P9047

== ENCOUNTER → 2023-05-01 10:03 | Outpatient (BNV) | payer MEDICAID, SELFPAY | PROVIDERS: PCP Family Medicine; Visit Provider Radiology Diagnostic Radiology | DX: R18.8 Other ascites (principal) | CPT/HCPCS: 49083 ==

== ENCOUNTER 2023-05-08 09:18 | Day surgery (SDC) | payer MEDICAID, SELFPAY ==
--- NOTE | ~2023-05-08 | US_ITS ---
EXAMINATION: US ABDOMEN LIMITED CLINICAL INFORMATION: Nonalcoholic steatohepatitis (SERVIN). Evaluate for fluid, check for ascites. Paracentesis canceled by Jude MARINELLI, per improvement coordinator at time of exam. Radiologist was not in attendance at the time of exam. Images were later provided for interpretation. COMPARISON: CT abdomen and pelvis 03/05/2023. Ultrasound abdomen limited 05/31/2022. Ultrasound abdomen complete 02/26/2022. X-ray abdomen 11/01/2018. TECHNIQUE: Real-time imaging of all 4 quadrants of the abdomen. FINDINGS: Targeted ultrasound images were obtained by the improvement coordinator of the 4 quadrants of the abdomen and demonstrated [id number] amounts of free fluid. Per improvement coordinator statement, the [employer] Stephenson, canceled the paracentesis. US/US abdomen limited IMPRESSION: Small to moderate amount of ascites. Per improvement coordinator statement, the [employer] Stephenson canceled the paracentesis.
[2023-05-08 10:11] VITALS: BMI 43.6
[2023-05-08 10:11] LABS: Glucose, Whole Blood 187 mg/dL (60-115)
== END 2023-05-08 10:54 | disposition home or self-care (01) ==
LOC: HO.SSS 09:19
PROVIDERS: PCP Family Medicine; Visit Provider Physician Assistant Surgical
DX: R18.8 Other ascites (principal); Z53.8 Procedure and treatment not carried out for other reasons; K75.81 Nonalcoholic steatohepatitis (NASH); E11.21 Type 2 diabetes mellitus with diabetic nephropathy; Z79.4 Long term (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 insulin; I10 Essential (primary) hypertension
CPT/HCPCS: 76705; 82947

== ENCOUNTER 2023-05-13 11:21 | Outpatient (REF) | payer MEDICAID, SELFPAY ==
[2023-05-13 13:48] LABS: MANUAL DIFF FLAG NO
[2023-05-13 14:02] LABS: Basophils Percent Auto 0.9 % (0-2); Eosinophils Absolute Auto 0.1 X10*3/uL (0.0-0.4); Eosinophils Percent Auto 3.2 % (0-4); Hematocrit 26.9 % (37.0-47.0); Hemoglobin 8.6 g/dl (12.0-16.0); Imm Gran Abs Auto 0.01 X10*3/uL (0.00-0.03); Imm Gran Pct Auto 0.2 % (0.0-0.4); Lymphocytes Absolute Auto 0.5 X10*3/uL (1.2-4.9); Lymphocytes Percent Auto 10.8 % (20-40); Mean Corpuscular Volume 93.7 fL (80.0-98.0); Mean Platelet Volume 12.5 fL (9.4-12.3); Monocytes Absolute Auto 0.4 X10*3/uL (0.1-1.2); Neutrophils Absolute Auto 3.3 x10*3/uL (2.0-8.3); Neutrophils Percent Auto 75.9 % (45-73); Red Blood Count 2.87 X10*6/uL (4.20-5.50); Red Cell Distribution Width 18.1 % (11.0-16.0); White Blood Count 4.3 X10*3/uL (4.8-10.8)
[2023-05-13 14:04] LABS: Platelet Count 32 X10*3/uL (160-400)
[2023-05-13 14:27] LABS: Alanine Aminotransferase 23 U/L (0-31); Alkaline Phosphatase 108 U/L (39-117); Anion Gap 11 (12-20); Aspartate Amino Transferase 44 U/L (5-31); Bilirubin Total 1.6 mg/dL (0.0-1.0); Blood Urea Nitrogen 16 mg/dL (9-16); Calcium 8.4 mg/dL (8.4-10.2); Carbon Dioxide 27 mmol/L (22-29); Chloride 102 mmol/L (96-108); Cholesterol 85 mg/dL (<200); Estimated Average Glucose 123 mg/dL; Estimated Glomerular Filt Rate 58; Glucose Random 169 mg/dL (60-115); HDL Cholesterol 33 mg/dL (>40); Hemoglobin A1c % 5.9 % (<6.0); Iron 80 mcg/dL (30-160); LDL Cholesterol Calculated 41 mg/dL (<100); Percent Iron Saturation 30 % (15-50); Potassium 3.5 mmol/L (3.3-5.1); Sodium 136 mmol/L (135-145); Total Iron Binding Capacity 268 mcg/dL (228-428); Total Protein 7.3 g/dL (6.5-8.0); Triglycerides 59 mg/dL (<150); Unsaturated Iron Binding 188 ug/dL
[2023-05-13 14:29] LABS: Ferritin 92 ng/mL (10-250); Free T4 (Free Thyroxine) 1.03 ng/dL (0.71-1.85); Thyroid Stimulating Hormone 3.06 uIU/mL (0.32-4.0)
[2023-05-13 14:48] LABS: Folate 11.9 ng/mL (> or = 4.0); Vitamin B12 743 pg/mL (200-900)
== END 2023-05-13 11:22 | disposition home or self-care (01) ==
LOC: HO.HHCL 11:21
PROVIDERS: Visit Provider Student in an Organized Health Care Education/Training Program
DX: E11.69 Type 2 diabetes mellitus with other specified complication (principal); Z79.4 Long term (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 insulin; E03.9 Hypothyroidism, unspecified
CPT/HCPCS: 36415; 80053; 80061; 82607; 82728; 82746; 83036; 83540; 84439; 84443; 85025

== ENCOUNTER 2023-05-15 08:05 | Day surgery (SDC) | payer MEDICAID, SELFPAY ==
--- NOTE | ~2023-05-15 | US_ITS ---
ULTRASOUND GUIDED PARACENTESIS HISTORY: Ascites. Risks and benefits and possible complications were discussed with the patient and consent form was signed. A safe pocket of ascitic fluid was identified left lower quadrant using ultrasound guidance, and the overlying skin was marked, prepped and draped in sterile fashion. 1% lidocaine was used as a local anesthetic. Using ultrasound guidance, a 5 fr catheter was placed into the ascitic pocket. 4.9 liters of yellow fluid was removed passively. The catheter was then removed. A few labor service representative images from before and after the examination were obtained. The procedure was performed by Jude Stephenson PA-C and supervised by Dr. Bentley. US/US paracentesis abd w/image IMPRESSION: Ultrasound-guided paracentesis as described above. No immediate complications
[2023-05-15 09:17] VITALS: BMI 46.1
[2023-05-15 09:23] LABS: Glucose, Whole Blood 229 mg/dL (60-115)
[2023-05-15 10:49] VITALS: BP 112/55; PULSE 86; RESP 17; TEMP 36.4; O2SAT 98
[2023-05-15] MEDS: Lidocaine HCl 1 % MPF 5 ML VIAL SUBCUT (10:59)
== END 2023-05-15 11:10 | disposition home or self-care (01) ==
PROVIDERS: PCP Family Medicine; Visit Provider Physician Assistant Surgical
DX: R18.8 Other ascites (principal); K75.81 Nonalcoholic steatohepatitis (NASH); K74.60 Unspecified cirrhosis of liver; E11.21 Type 2 diabetes mellitus with diabetic nephropathy; I10 Essential (primary) hypertension; G47.33 Obstructive sleep apnea (adult) (pediatric); E28.2 Polycystic ovarian syndrome; E66.01 Morbid (severe) obesity due to excess calories; Z68.42 Body mass index [BMI] 45.0-49.9, adult; Z79.4 Long term (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 insulin; Z88.0 Allergy status to penicillin; Z88.8 Allergy status to other drugs, medicaments and biological substances; Z87.891 Personal history of nicotine dependence; F12.90 Cannabis use, unspecified, uncomplicated
CPT/HCPCS: 49083; 82947; C1729

== ENCOUNTER → 2023-05-15 09:29 | Outpatient (BNV) | payer MEDICAID, SELFPAY | PROVIDERS: PCP Family Medicine; Visit Provider Radiology Diagnostic Radiology | DX: R18.8 Other ascites (principal) | CPT/HCPCS: 49083 ==

== ENCOUNTER 2023-05-22 06:23 | Day surgery (SDC) | payer MEDICAID, SELFPAY ==
--- NOTE | ~2023-05-22 | US_ITS ---
LIMITED ULTRASOUND ABDOMEN HISTORY: Ascites. Patient presents for her routine scheduled for weekly paracentesis. FINDINGS: A small amount of ascites present in the right abdomen when positioned in the right lateral decubitus position. No paracentesis was performed. The procedure was performed by Jude Stephenson PA-C and supervised by Dr. Bentley. US/US abdomen limited pre post IMPRESSION: Small amount of ascites in the right abdomen. No paracentesis was performed.
[2023-05-22 07:16] VITALS: BP 117/56; PULSE 86; RESP 18; TEMP 36.8; O2SAT 98
[2023-05-22 07:24] LABS: Glucose, Whole Blood 169 mg/dL (60-115)
[2023-05-22 07:38] VITALS: BMI 46.1
--- NOTE | 2023-05-22 07:39 | PC.NURSE ---
Jude Stephenson PA updated that patient was discharged from [facility] yesterday for high ammonia levels with this admission being on 05/19/23. Jude Stephenson stated no labs needed. Okay to proceed.
== END 2023-05-22 09:08 | disposition home or self-care (01) ==
PROVIDERS: Physician Assistant Surgical; PCP Family Medicine; Visit Provider Internal Medicine Gastroenterology
DX: K74.60 Unspecified cirrhosis of liver (principal); K75.81 Nonalcoholic steatohepatitis (NASH); R18.8 Other ascites; E11.9 Type 2 diabetes mellitus without complications; E66.9 Obesity, unspecified; Z68.42 Body mass index [BMI] 45.0-49.9, adult; Z79.4 Long term (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 insulin
CPT/HCPCS: 76705; 82947

== ENCOUNTER → 2023-05-22 08:30 | Outpatient (BNV) | payer MEDICAID, SELFPAY | PROVIDERS: PCP Family Medicine; Visit Provider Radiology Diagnostic Radiology | DX: R18.8 Other ascites (principal) | CPT/HCPCS: 76705 ==

== ENCOUNTER → 2023-06-04 12:13 | Outpatient (BNV) | payer MEDICAID, SELFPAY | PROVIDERS: PCP Family Medicine; Visit Provider Internal Medicine | DX: D69.6 Thrombocytopenia, unspecified (principal) | CPT/HCPCS: 99204 ==

== ENCOUNTER → 2023-06-05 07:32 | Day surgery (SDC) | payer MEDICAID, SELFPAY ==
[2023-06-05 08:46] VITALS: BP 137/63; PULSE 93; RESP 16; TEMP 36.5; O2SAT 100; BMI 49.1
[2023-06-05 08:46] LABS: MANUAL DIFF FLAG NO
[2023-06-05 08:50] LABS: Basophils Percent Auto 0.6 % (0-2); Eosinophils Absolute Auto 0.1 X10*3/uL (0.0-0.4); Eosinophils Percent Auto 2.7 % (0-4); Imm Gran Abs Auto 0.02 X10*3/uL (0.00-0.03); Imm Gran Pct Auto 0.4 % (0.0-0.4); Lymphocytes Absolute Auto 0.5 X10*3/uL (1.2-4.9); Lymphocytes Percent Auto 8.6 % (20-40); Mean Corpuscular HGB Conc 33.3 g/dl (31.0-35.0); Mean Corpuscular Volume 92.9 fL (80.0-98.0); Mean Platelet Volume 12.6 fL (9.4-12.3); Monocytes Absolute Auto 0.5 X10*3/uL (0.1-1.2); Monocytes Percent Auto 9.8 % (2-11); Neutrophils Absolute Auto 4.1 x10*3/uL (2.0-8.3); Neutrophils Percent Auto 77.9 % (45-73); Red Cell Distribution Width 18.3 % (11.0-16.0); White Blood Count 5.2 X10*3/uL (4.8-10.8)
[2023-06-05 08:55] LABS: Platelet Count 35 X10*3/uL (160-400)
[2023-06-05 08:58] LABS: Hematocrit 19.5 % (37.0-47.0); Hemoglobin 6.5 g/dl (12.0-16.0)
[2023-06-05 08:58] LABS: Glucose, Whole Blood 236 mg/dL (60-115)
--- NOTE | 2023-06-05 09:08 | PC.NURSE ---
Addendum entered by Nathalie Arce RN 06/05/23 09:10: report given to ER encephalographer. patient to be transported via stretcher to ED16. Original Note: patient and stated she had TIPS procedure 05/29/23 at [facility]. patient here today for schedule paracentesis. VSS. recevied critical lab results Hgb 6.5 Hct 19.5. Jude Stephenson, Radiology PA notified. Jude Stephenson at bedside. patient to be transfered to ER.
== END ==
PROVIDERS: Physician Assistant Surgical; PCP Family Medicine; Visit Provider Internal Medicine Gastroenterology
DX: K76.9 Liver disease, unspecified (principal); Z53.09 Procedure and treatment not carried out because of other contraindication; R79.9 Abnormal finding of blood chemistry, unspecified
CPT/HCPCS: 36415; 82947; 85025

== ENCOUNTER 2023-06-05 09:18 | Inpatient (IN) | payer MEDICAID, SELFPAY ==
[2023-06-05] VITALS (11 sets, daily range): BP systolic 103–145; BP diastolic 50–67; PULSE 82–101; RESP 14–20; TEMP 36.4–37.2; O2SAT 93–97; BMI 49.9; BMI 45.0
--- NOTE | ~2023-06-05 | US_ITS ---
EXAMINATION: Ultrasound duplex arterial venous comp CLINICAL INFORMATION: Evaluate TIPS patency COMPARISON: Previous abdominal ultrasound most recent May 2023 TECHNIQUE: Doppler color and grayscale evaluation of the liver and liver vasculature including waveform spectral analysis. Exam is limited due to patient body habitus. FINDINGS: The tips shunt seen in the main portal vein is patent. There is appropriate hepatopedal flow in the main portal vein. This has normal waveform and a peak systolic velocity of approximately 66 cm/s. The right and left portal veins are not well seen. The remainder of the TIPS shunt not seen. Hepatic veins not seen. Main hepatic artery is not seen. Moderate to large amount of ascites. US/US duplex arterial venous comp IMPRESSION: Limited exam due to patient body habitus. The TIPS shunt is only partially visualized in the main portal vein and appears patent with appropriate hepatopedal flow. The remainder of the tips shunt not visualized. Moderate to large amount of ascites.
--- NOTE | 2023-06-05 09:38 | ED_ITS ---
HPI - General Adult General Chief complaint: Recheck/Abnormal Lab/Rx Stated complaint: gen medical Time Seen by Provider: 06/05/23 09:26 Source: patient, family and healthcare interpreter Mode of arrival: other History of Present Illness HPI narrative: 47-year-old female who is brought to us from short stay where she had a scheduled paracentesis, however the interventional radiologist was concerned that she may be bleeding internally after having a TIPS procedure at [facility]. Patient denies any fever, chills, nausea, vomiting, abdominal pain, rectal bleeding. Related Data Home Medications Medication Instructions Recorded Confirmed albuterol sulfate 90 mcg/actuation 2 puff inhalation Q6H PRN Wheezing 08/16/20 06/04/23 aerosol inhaler (Ventolin HFA) blood sugar diagnostic (FreeStyle #10 ea 08/16/20 06/04/23 Lite Strips) lancets 28 gauge (FreeStyle #100 ea 08/16/20 06/04/23 Lancets) levothyroxine 50 mcg tablet 50 mcg PO DAILY@0600 11/04/21 06/04/23 insulin glargine U-300 conc 300 75 unit subcut BEDTIME 04/30/22 06/04/23 unit/mL (3 mL) subcutaneous pen (Toujeo Max U-300 SoloStar) insulin lispro 100 unit/mL 26 unit subcut TIDAC 05/31/22 06/04/23 subcutaneous pen cholecalciferol (vitamin D3) 50 50 mcg PO DAILY 09/29/22 06/04/23 mcg (2,000 unit) capsule (Vitamin D3) flash glucose sensor (FreeStyle #1 ea 09/29/22 06/04/23 Brooke 2 Sensor kit) loratadine 10 mg tablet 10 mg PO DAILY PRN Allergy Symptoms 09/29/22 06/04/23 spironolactone 100 mg tablet 200 mg PO DAILY 09/29/22 06/04/23 pen needle, diabetic 32 gauge x #1,200 ea 01/23/23 06/04/2332 (Pentips) potassium chloride 20 mEq 20 meq PO DAILY 01/23/23 06/04/23 tablet,extended release(part/cryst) torsemide 20 mg tablet 40 mg PO DAILY 01/23/23 06/04/23 albuterol sulfate 2.5 mg/3 mL 2.5 mg inhalation QID PRN dyspnea 04/24/23 06/04/23 (0.083 %) solution for nebulization mometasone 200 mcg/actuation HFA 1 puff inhalation BID 04/24/23 06/04/23 aerosol inhaler (Asmanex HFA) Previous Rx's Medication Instructions Recorded omeprazole 40 mg capsule,delayed 40 mg PO DAILY@0630 #30 caps 05/05/22 release atorvastatin 20 mg tablet 20 mg PO DAILY #30 tabs 04/28/23 carvedilol 3.125 mg tablet 3.125 mg PO BID #60 tabs 04/28/23 sucralfate 1 gram tablet 1 g PO BIDAC #60 tabs 04/28/23 Allergies Allergy/AdvReac Type Severity Reaction Status Date / Time ibuprofen [From MOTRIN] Allergy Intermediate RASH Verified 06/05/23 09:29 penicillin V Allergy Mild hives Verified 06/05/23 09:29 codeine Allergy Unknown Verified 06/05/23 09:29 Rx- listed on H&P Review of Systems 2 Review of Systems: Pertinent positives and negatives as stated in the [facility] Past Medical History Source: nursing notes reviewed Medical History S/P abdominal paracentesis 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 Status post abdominal paracentesis HTN (hypertension) AMY (obstructive sleep apnea) Dyslipidemia Asthma Non-toxic multinodular goiter Diabetic nephropathy associated with type 2 diabetes mellitus Elevated TSH Goiter Acromegaly Morbid obesity PCOS (polycystic ovarian syndrome) 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 Diabetes type 2, uncontrolled 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 Surgical History Previous back surgery Hx of colonoscopy Hx of endoscopy Family History Family History Father Unknown family medical history Mother Hx of type 1 diabetes mellitus Social History Social History Household Members: Spouse Housing: House Do you presently have visiting nurse or other home services: Yes Alcohol intake: never Patient Tobacco Use Status: Former Tobacco user Quit Date: 7 yrs ago Tobacco use type: Cigarette Second Hand Smoke Exposure: Yes Substance Use Type: Marijuana Advance Directives: No Advance Directives Information Provided: No service: No Current occupational status: disabled 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 GENERAL: Elevated BMI, Well developed, well nourished, APPEARS VERY COMFORTABLE HEAD: Normocephalic/atraumatic EYES: PERRLA, EOMI EARS: Ext canals without abnormality NOSE: Nares patent bilateral OROPHARYNX: no oral lesions noted, posterior pharynx clear NECK: Supple, no adenopathy LUNGS: Normal breath sounds. No adventitious sounds or accessory muscle use. SpO2<96> CARDIOVASCULAR: Regular rate and rhythm without noted murmurs ABDOMEN: Soft, non-tender on superficial as well as deep palpation, non- distended with bowel sounds. MUSCULOSKELETAL: No tenderness, deformities, or effusions noted on gross inspection. EXTREMITIES: No cyanosis, clubbing or edema. SKIN: Inspection of the skin reveals no rashes NEUROLOGIC: Alert and oriented x 4. Strength and sensation to light touch were grossly intact x 4. Medical Decision Making Medical Decision Making MDM Narrative: 47-year-old female with history and clinical presentation of recent TIPS procedure that is likely responsible for noted anemia. Patient and report that tips procedure occurred on 05/29/2023. 0947: Dr Verma recommends transfer to [facility]. 1057: Dr. Verma evaluated patient at bedside and agrees that she appears clinically well. If [facility] recommends patient staying here at [facility] he recommends admission, ultrasound for assessment of tips, 1 unit of blood and re-evaluation with possible discharge tomorrow. 1100: Spoke to Sahara at [facility] who informs that patient had H/H of 7.2/21 on 05/31. Patient also has follow-up appointment on 06/11. 1105: Dr Cash called and agrees with plan for admit object, 1 unit blood transfusion as well as ultrasound to evaluate tips and also recommends proceeding with paracentesis as this would be diagnostic. 1122: I discussed the case with the inpatient hospitalist and after a few points of clarification, patient is accepted for admission obsess, consultation has been placed for Gastroenterology and decision for paracentesis will be made by the inpatient team. I reviewed all investigations and hematologic indices demonstrates a normocytic anemia which has worsened since 05/31 after discussion with [facility], there is a stable leukopenia and thrombocytopenia that is stable. Coagulation studies are elevated at baseline secondary to liver disease secondary to SERVIN. Chemistry indices do not show an DULCE and liver enzymes are chronically elevated secondary to underlying liver disease. Prelim on the ultrasound:TIPS is patent, there is presence of ascites. Differential Diagnosis Differential Diagnoses: The differential diagnosis associated with the presentation includes Please see the discussion above Admission/Observation Consideration of admission/observation: Escalation of care including admission/observation considered Please see the discussion above Consult Healthcare Provider Management of the patient was discussed with: Hospitalist and Oil Distributor Please see the discussion above Lab Data MDM Lab Attestation statement: I reviewed the patient's lab results. Please see the discussion above 06/05/23 10:18 06/05/23 10:18 Labs: Lab Results 06/05/23 06/05/23 Range/Units 10:18 11:34 WBC 4.5 L (4.8-10.8) X10*3/uL RBC 1.99 L (4.20-5.50) X10*6/uL Hgb 6.1 L* (12.0-16.0) g/dl Hct 18.2 L* (37.0-47.0) % MCV 91.5 (80.0-98.0) fL MCH 30.7 (27.0-33.0) pg MCHC 33.5 (31.0-35.0) g/dl RDW 18.1 H (11.0-16.0) % Plt Count 31 L (160-400) X10*3/uL MPV 10.4 (9.4-12.3) fL Immature Gran % (Auto) 0.4 (0.0-0.4) % Neut % (Auto) 77.7 H (45-73) % Lymph % (Auto) 9.8 L (20-40) % Edwards % (Auto) 9.6 (2-11) % Eos % (Auto) 1.8 (0-4) % Baso % (Auto) 0.7 (0-2) % Lymph # (Auto) 0.4 L (1.2-4.9) X10*3/uL Edwards # (Auto) 0.4 (0.1-1.2) X10*3/uL Eos # (Auto) 0.1 (0.0-0.4) X10*3/uL Baso # (Auto) 0.0 (0.0-0.2) X10*3/uL Abs Immat Gran (auto) 0.02 (0.00-0.03) X10*3/uL Absolute Neuts (auto) 3.5 (2.0-8.3) x10*3/uL Absolute Nucleated RBC 0.000 (0.0-0.012) X10*3/uL Nucleated RBC % (auto) 0.0 (0.0-0.2) /100WBC PT 17.4 H (11.1-13.3) SEC INR 1.4 H (0.9-1.1) APTT 30.8 (26.0-36.8) SEC Sodium 133 L (135-145) mmol/L Potassium 3.9 (3.3-5.1) mmol/L Chloride 102 (96-108) mmol/L Carbon Dioxide 28 (22-29) mmol/L Anion Gap 7 L (12-20) BUN 15 (9-16) mg/dL Creatinine 0.91 (0.5-1.4) mg/dL Estim Creat Clear Calc 99.5 Estimated GFR > 60 Random Glucose 243 H (60-115) mg/dL Calcium 7.6 L D (8.4-10.2) mg/dL Total Bilirubin 1.5 H (0.0-1.0) mg/dL AST 40 H (5-31) U/L ALT 18 (0-31) U/L Alkaline Phosphatase 93 (39-117) U/L Total Protein 6.1 L (6.5-8.0) g/dL Albumin 2.2 L (3.5-5.0) g/dL Crossmatch See Detail Radiology Impression Discussion of test interpretation with radiology: I have reviewed the radiologist's reading. Radiologist Impression: Please see the discussion above External Record Review External record reviewed: Outpatient record, Prior outpatient labs, Prior outpatient radiology and Outside ED record Chronic Conditions Patient?s care impacted by: Diabetes Liver disease Critical Care Time Critical Care Time Critical Care Time: Yes Total Critical Care Time: 90 Attestation: I personally attest to this time spent taking care of the patient. Discharge Plan Discharge Clinical Impression: Normocytic anemia, S/P TIPS (transjugular intrahepatic portosystemic shunt) Patient Disposition: Admitted As Inpatient
[2023-06-05 10:22] LABS: MANUAL DIFF FLAG NO
[2023-06-05 10:24] LABS: Basophils Percent Auto 0.7 % (0-2); Eosinophils Absolute Auto 0.1 X10*3/uL (0.0-0.4); Eosinophils Percent Auto 1.8 % (0-4); Imm Gran Abs Auto 0.02 X10*3/uL (0.00-0.03); Imm Gran Pct Auto 0.4 % (0.0-0.4); Lymphocytes Absolute Auto 0.4 X10*3/uL (1.2-4.9); Lymphocytes Percent Auto 9.8 % (20-40); Mean Corpuscular HGB Conc 33.5 g/dl (31.0-35.0); Mean Corpuscular Hemoglobin 30.7 pg (27.0-33.0); Mean Corpuscular Volume 91.5 fL (80.0-98.0); Mean Platelet Volume 10.4 fL (9.4-12.3); Monocytes Absolute Auto 0.4 X10*3/uL (0.1-1.2); Monocytes Percent Auto 9.6 % (2-11); Neutrophils Absolute Auto 3.5 x10*3/uL (2.0-8.3); Neutrophils Percent Auto 77.7 % (45-73); Red Blood Count 1.99 X10*6/uL (4.20-5.50); Red Cell Distribution Width 18.1 % (11.0-16.0); White Blood Count 4.5 X10*3/uL (4.8-10.8)
[2023-06-05 10:26] LABS: Hematocrit 18.2 % (37.0-47.0); Hemoglobin 6.1 g/dl (12.0-16.0); Platelet Count 31 X10*3/uL (160-400)
[2023-06-05 10:31] LABS: INTERNATIONAL NORM RATIO 1.4 (0.9-1.1); Prothrombin Time 17.4 SEC (11.1-13.3)
[2023-06-05 10:33] LABS: Partial Thromboplastin Time 30.8 SEC (26.0-36.8)
[2023-06-05 10:40] LABS: Alanine Aminotransferase 18 U/L (0-31); Albumin Level 2.2 g/dL (3.5-5.0); Alkaline Phosphatase 93 U/L (39-117); Anion Gap 7 (12-20); Aspartate Amino Transferase 40 U/L (5-31); Bilirubin Total 1.5 mg/dL (0.0-1.0); Blood Urea Nitrogen 15 mg/dL (9-16); Calcium 7.6 mg/dL (8.4-10.2); Carbon Dioxide 28 mmol/L (22-29); Chloride 102 mmol/L (96-108); Creatinine Clr Calc Pharmacy 99.5; Estimated Glomerular Filt Rate > 60; Glucose Random 243 mg/dL (60-115); Potassium 3.9 mmol/L (3.3-5.1); Sodium 133 mmol/L (135-145); Total Protein 6.1 g/dL (6.5-8.0)
--- NOTE | 2023-06-05 11:37 | PC.NURSE ---
18gIV placed in the right AC. type&screen performed/sent to lab. bracelet applied to pt. ED provider bedside speaking w/ pt and pt's in regards to plan of care at this time. ultrasound bedside at this time. plan of care ongoing.
--- NOTE | 2023-06-05 12:18 | P.HPHOSP_ITS ---
History of Present Illness Date of Service: 06/05/23 Chief Complaint: anemia 47F PMH 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/29/23, morbid obesity, DM, htn, hld, amy, mild intermittent asthma, presented with anemia. patient was at short stay for scheduled routine paracentesis, preprocedure labs reveled hgb 6.1, baseline is around 8. patient denies any symptoms or gross bleed. Us showed some asictes, patent tips. 1 unit prbc ordered. 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 Diabetes type 2, uncontrolled 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 Family History Father Unknown family medical history Mother Hx of type 1 diabetes mellitus Surgical History Previous back surgery Hx of colonoscopy Hx of endoscopy Social History Household Members: Spouse Housing: House Do you presently have visiting nurse or other home services: Yes Alcohol intake: never Patient Tobacco Use Status: Former Tobacco user Quit Date: 7 yrs ago Tobacco use type: Cigarette Second Hand Smoke Exposure: Yes Substance Use Type: Marijuana Advance Directives: No Advance Directives Information Provided: No service: No Current occupational status: disabled 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 Meds Allergies Allergy/AdvReac Type Severity Reaction Status Date / Time ibuprofen [From MOTRIN] Allergy Intermediate RASH Verified 06/05/23 09:29 penicillin V Allergy Mild hives Verified 06/05/23 09:29 codeine Allergy Unknown Verified 06/05/23 09:29 Rx- listed on H&P Home Medications Medication Instructions Recorded Confirmed Last Taken Type albuterol sulfate 90 mcg/actuation 2 puff inhalation Q6H PRN Wheezing 08/16/20 06/04/23 03/04/23 History aerosol inhaler (Ventolin HFA) blood sugar diagnostic (FreeStyle #10 ea 08/16/20 06/04/23 Unknown History Lite Strips) lancets 28 gauge (FreeStyle #100 ea 08/16/20 06/04/23 Unknown History Lancets) levothyroxine 50 mcg tablet 50 mcg PO DAILY@0600 11/04/21 06/04/23 03/04/23 History insulin glargine U-300 conc 300 75 unit subcut BEDTIME 04/30/22 06/04/23 03/04/23 History unit/mL (3 mL) subcutaneous pen (Toujeo Max U-300 SoloStar) insulin lispro 100 unit/mL 26 unit subcut TIDAC 05/31/22 06/04/23 03/04/23 History subcutaneous pen cholecalciferol (vitamin D3) 50 50 mcg PO DAILY 09/29/22 06/04/23 03/04/23 History mcg (2,000 unit) capsule (Vitamin D3) flash glucose sensor (FreeStyle #1 ea 09/29/22 06/04/23 Unknown History Brooke 2 Sensor kit) loratadine 10 mg tablet 10 mg PO DAILY PRN Allergy Symptoms 09/29/22 06/04/23 03/04/23 History spironolactone 100 mg tablet 200 mg PO DAILY 09/29/22 06/04/23 03/04/23 History pen needle, diabetic 32 gauge x #1,200 ea 01/23/23 06/04/23 Unknown History (Pentips) potassium chloride 20 mEq 20 meq PO DAILY 01/23/23 06/04/23 03/04/23 History tablet,extended release(part/cryst) torsemide 20 mg tablet 40 mg PO DAILY 01/23/23 06/04/23 03/04/23 History albuterol sulfate 2.5 mg/3 mL 2.5 mg inhalation QID PRN dyspnea 04/24/23 06/04/23 Unknown History (0.083 %) solution for nebulization mometasone 200 mcg/actuation HFA 1 puff inhalation BID 04/24/23 06/04/23 04/24/22 History aerosol inhaler (Asmanex HFA) Physical Exam 2 Vital Signs and Narrative: Vital Signs: Last Vital Signs Temp 98.3 F 06/05/23 11:20 Pulse 100 06/05/23 11:20 Resp 16 06/05/23 11:20 BP 110/56 L 06/05/23 11:20 Pulse Ox 96 06/05/23 11:20 O2 Del Method Room Air 06/05/23 11:20 BMI result Body Mass Index 49.9 General: AO X 3, no acute distress Resp: CTA bilateral, no accessory muscles used CVS: S1,S2,RRR GI: soft, non tender, non distended Neuro: motor grossly intact, alert Psych: appropriate affect, appropriate insight Results Labs 06/05/23 10:18 06/05/23 10:18 Labs: Laboratory Results - last 24 hr 06/05/23 06/05/23 10:18 11:34 MCV 91.5 MCH 30.7 MCHC 33.5 RDW 18.1 H Plt Count 31 L MPV 10.4 Immature Gran % (Auto) 0.4 Neut % (Auto) 77.7 H Lymph % (Auto) 9.8 L [place] % (Auto) 9.6 Eos % (Auto) 1.8 Baso % (Auto) 0.7 Lymph # (Auto) 0.4 L [place] # (Auto) 0.4 Eos # (Auto) 0.1 Baso # (Auto) 0.0 Abs Immat Gran (auto) 0.02 Absolute Neuts (auto) 3.5 Absolute Nucleated RBC 0.000 Nucleated RBC % (auto) 0.0 PT 17.4 H INR 1.4 H APTT 30.8 Anion Gap 7 L Estim Creat Clear Calc 99.5 Estimated GFR > 60 Random Glucose 243 H Calcium 7.6 L D Total Bilirubin 1.5 H AST 40 H ALT 18 Alkaline Phosphatase 93 Total Protein 6.1 L Albumin 2.2 L Blood Type A Positive Antibody Screen NEGATIVE Crossmatch See Detail Assessment and Plan (1) Normocytic anemia: Status: Acute Plan 47F PMH 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/29/23, morbid obesity, DM, htn, hld, amy, mild intermittent asthma, presented with anemia anemia - acute on chronic suspected from recent blood loss from tips prociure, doubt active bleed plan for 1 unit prbc, observe to confirm repsonds appropriately gi eval DM basal bolus insulin servin cirrhosis no urgent need for paracentesis outpatinent follow up morbid oebstiy weight loss dvt prophylaixs - mechanical due to anemia/possible bleed full code Quality Stroke Does the patient have a stroke diagnosis?: No VTE Prior VTE?: No VTE Risk Level:: Medical - moderate - high VTE Device Contraindication: N/A - Device Ordered VTE Drug Contraindication: Treatment Not Tolerated
--- NOTE | 2023-06-05 12:43 | PC.NURSE ---
RBC transfusion started at this time. pre-vitals documented in TAR section. vss and within limits for transfusion to occur. nsr/borderline sinus tachy on the diagnostic cardiac sonographer. pt resting comfortably in no apparent distress prior to the infusion.
--- NOTE | 2023-06-05 13:00 | PC.NURSE ---
pt continues to receive transfusion at this time. pt tolerated first 15 minutes well. no signs of reactions notified/documented. vss and remain within limits. nsr/sinus tachy on the ekg monitor tech. pt educated on using call cash if anything needs warranting. no sob/wob noted. respirations remain even and unlabored. call cash placed within reach.
--- NOTE | 2023-06-05 13:26 | PHA.MEDREC ---
Pharmacy Consult ? Medication Reconciliation Pharmacy has completed the medication reconciliation. Patient confirmed medications.
--- NOTE | 2023-06-05 13:45 | PM.GICN ---
History of Present Illness Data of Consult Service Date: 06/05/23 Requesting physician: Michelle Sanz Primary Care Provider: Radha Anne MD HPI Reason for consult: anemia 47-year-old female with hx of?uncontrolled insulin-dependent diabetes type 2, HLD, HTN, liver cirrhosis secondary to SERVIN with ascites, chronic thrombocytopenia, AMY, PCOS with acromegaly, nontoxic multinodular goiter, and mild intermittent asthma who I am seeing for assessment for anemia. Patient had labs checked with acute on chronic anemia with HGB 6.1 g/dl. She did have TIPS done 05/29/23 and apparently HGB at the time of [facility] d/c was 7.1 g/dl. Patient herself denies melena, no rectal bleeding, hematuria, hemoptysis or bruising. She has normal stools, and no sob, chest pain, not been taking nsaids, blood thinners. She was admitted with anemia 1 month ago prior to TIPS for anemia and had dieulafoy lesion with large varices with high risk albarran needing banding. Review of Systems Review of Systems: Constitutional : No Weight loss, No Fever, No Chills ENT/Mouth : No sore throat, No Rhinorrhea Eyes: No Swelling, No Redness Cardiovascular : No Chest Pain, No SOB, No Edema Respiratory : No Cough, No Sputum, No Wheezing Gastrointestinal : see HPI Genitourinary : NO Dysuria, No Urinary Frequency, No Hematuria, No Urgency Musculoskeletal : No joint pain, No Myalgias, No Joint Swelling Skin : No Skin Lesions, No rash Neuro : No Weakness, No Numbness, No Dizziness, No Headache Psych : No Anxiety/Panic, No Depression Heme/Lymph: No Bruising, No Lymphadenopathy Endocrine : No Polyuria, No Polydipsia All other systems reviewed and are negative. [facility] Past Medical History Medical History S/P abdominal paracentesis 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 Status post abdominal paracentesis HTN (hypertension) AMY (obstructive sleep apnea) Dyslipidemia Asthma Non-toxic multinodular goiter Diabetic nephropathy associated with type 2 diabetes mellitus Elevated TSH Goiter Acromegaly Morbid obesity PCOS (polycystic ovarian syndrome) FCI (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 insulin Diabetes type 2, uncontrolled 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 Family History Family History Father Unknown family medical history Mother Hx of type 1 diabetes mellitus Surgical History Surgical History Previous back surgery Hx of colonoscopy Hx of endoscopy Social History Social History Household Members: Spouse Housing: House Do you presently have visiting nurse or other home services: Yes Alcohol intake: never Patient Tobacco Use Status: Former Tobacco user Quit Date: 7 yrs ago Tobacco use type: Cigarette Smoked in Last 30 Days: No Second Hand Smoke Exposure: Yes Use of substances other than those prescribed or required for medical reasons: No Substance Use Type: Marijuana Advance Directives: No Advance Directives Information Provided: No Nutrition Risks: No Nutritional Risk Patient : No service: No Current occupational status: disabled 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 Glucose (Glucose Gel 15 Gm Gel..Gram.) 15 gm PO Q15M PRN; Protocol PRN Reason: per Hypoglycemia Standing Ord. Insulin Glargine (Insulin Glargine,Hum.Rec.Anlog 100 Unit/Ml 10 Ml Vial) 50 unit SUBCUT BEDTIME NIMO Insulin Human Lispro (Insulin Lispro 100 Unit/Ml 3 Ml Vial) 0 unit SUBCUT QIDACHS [facility]; Protocol Sodium Chloride (0.9 % Sodium Chloride Flush 3 Ml Syringe) 3 ml IVFLUSH QSHIFT [facility] Home Medications Medication Instructions Recorded Confirmed Last Taken Type albuterol sulfate 90 mcg/actuation 2 puff inhalation Q6H PRN Wheezing 08/16/20 06/05/23 06/04/23 History aerosol inhaler (Ventolin HFA) blood sugar diagnostic (FreeStyle #10 ea 08/16/20 06/04/23 Unknown History Lite Strips) lancets 28 gauge (FreeStyle #100 ea 08/16/20 06/04/23 Unknown History Lancets) levothyroxine 50 mcg tablet 50 mcg PO DAILY@0600 11/04/21 06/05/23 06/04/23 History insulin glargine U-300 conc 300 75 unit subcut BEDTIME 04/30/22 06/05/23 06/03/23 History unit/mL (3 mL) subcutaneous pen (Toujeo Max U-300 SoloStar) insulin lispro 100 unit/mL 26 unit subcut TIDAC 05/31/22 06/05/23 06/04/23 History subcutaneous pen cholecalciferol (vitamin D3) 50 50 mcg PO DAILY 09/29/22 06/05/23 06/04/23 History mcg (2,000 unit) capsule (Vitamin D3) flash glucose sensor (FreeStyle #1 ea 09/29/22 06/04/23 Unknown History Brooke 2 Sensor kit) loratadine 10 mg tablet 10 mg PO DAILY PRN Allergy Symptoms 09/29/22 06/05/23 06/04/23 History spironolactone 100 mg tablet 200 mg PO DAILY 09/29/22 06/05/23 06/04/23 History pen needle, diabetic 32 gauge x #1,200 ea 01/23/23 06/04/23 Unknown History (Pentips) potassium chloride 20 mEq 20 meq PO DAILY 01/23/23 06/05/23 06/04/23 History tablet,extended release(part/cryst) torsemide 20 mg tablet 60 mg PO DAILY 01/23/23 06/05/23 06/04/23 History albuterol sulfate 2.5 mg/3 mL 2.5 mg inhalation QID PRN dyspnea 04/24/23 06/05/23 06/04/23 History (0.083 %) solution for nebulization mometasone 200 mcg/actuation HFA 1 puff inhalation BID 04/24/23 06/05/23 06/04/23 History aerosol inhaler (Asmanex HFA) dulaglutide 1.5 mg/0.5 mL 1.5 mg subcut MO 06/05/23 06/05/23 06/04/23 History subcutaneous pen injector (Trulicity) ferrous gluconate 324 mg (38 mg 324 mg PO QAM 06/05/23 06/05/23 06/04/23 History iron) tablet Physical Exam Vital Signs: Vital Signs: Last Vital Signs Temp 98.0 F 06/05/23 13:35 Pulse 98 06/05/23 13:35 Resp 16 06/05/23 13:35 BP 121/50 L 06/05/23 13:35 Pulse Ox 96 06/05/23 13:35 O2 Del Method Room Air 06/05/23 13:35 BMI result Body Mass Index 49.9 EXAM: GENERAL: The patient is well developed and nontoxic, obese, relaxed VITAL SIGNS:see workflow HEENT: Nonicteric sclerae, PERRLA, EOMI. Oropharynx clear. Moist mucous membranes. Conjunctivae appear well perfused. No thyroid mass. CHEST: Chest wall is nontender. HEART: Regular rate and rhythm without murmurs. LUNGS: Clear to auscultation bilaterally. ABDOMEN: Soft, positive bowel sounds, nontender, no organomegaly.no flank tenderness SKIN: No rash, no excessive bruising, petechiae, or purpura. NEUROLOGIC: Cranial nerves II-XII intact without motor/sensory deficit. Psych: Appearance: grossly normal Results Labs 06/05/23 10:18 06/05/23 10:18 Labs: Short CBC 06/05/23 Range/Units 10:18 WBC 4.5 L (4.8-10.8) X10*3/uL Hgb 6.1 L* (12.0-16.0) g/dl Hct 18.2 L* (37.0-47.0) % Plt Count 31 L (160-400) X10*3/uL BMP 06/05/23 10:18 Sodium 133 L Potassium 3.9 Chloride 102 Carbon Dioxide 28 BUN 15 Creatinine 0.91 Calcium 7.6 L D Liver Function 06/05/23 Range/Units 10:18 Total Bilirubin 1.5 H (0.0-1.0) mg/dL AST 40 H (5-31) U/L ALT 18 (0-31) U/L Alkaline Phosphatase 93 (39-117) U/L Albumin 2.2 L (3.5-5.0) g/dL Assessment and Plan (1) 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: Qualifiers: Hepatic cirrhosis type: unspecified hepatic cirrhosis Ascites presence: with ascites Qualified Code(s): K74.60 - Unspecified cirrhosis of liver; R18.8 - Other ascites Status: Acute (2) Anemia: Qualifiers: Anemia type: other cause Status: Acute Plan 1/Acute on chronic anemia, no overt bleeding but had recent TIPS. Anemia may be related to procedural blood loss, hemolysis or bone marrow failure vs hypersplenism or combination of factors. There may also be failure of decompression of the portal system which means varices may still be present. PLAN: 1/ [facility] already contacted- agree with US for TIPS evaluation and r/o intra abdominal bleeding which seems unlikely based on clinical exam, if any evidence of TIPS occlusion or bleeding will need to be transferred 2/ Hemolysis labs , check b12, ferritin, folate 3/ might need hematology assessment of pancytopenia persists to r/o bone marrow failure. 4/ would hold on EGD, colo at this point, v low suspicion of active GI bleeding, if has overt bleeding, PPi and octreotide,endoscopy 5/ tranfuse as needed for HGB8-9 g/dl Procedures Date of Service Date of Service: 06/05/23
[2023-06-05] MEDS: Ferrous Sulfate 324 MG TABLET.DR PO (14:02)
--- NOTE | 2023-06-05 14:04 | PC.NURSE ---
vss and up to date at this time. nsr on the quality assurance monitor final. pt resting comfortably in no apparent distress. medication administered per provider order. respirations remain even and unlabored. call cash placed within reach.
--- NOTE | 2023-06-05 16:04 | PC.NURSE ---
Pt enters my care- no complaints at this time- pt able to ambulate with steady gait to the bathroom with the walker-vss
[2023-06-05 17:18] LABS: Glucose, Whole Blood 120 mg/dL (60-115)
[2023-06-05] MEDS: Sucralfate 1 GM TABLET PO (17:49)
[2023-06-05 20:15] LABS: Glucose, Whole Blood 179 mg/dL (60-115)
[2023-06-05] MEDS: Insulin Glargine,Hum.rec.anlog 100 UNIT/ML 10 ML VIAL 50 UNIT SUBCUT (20:56)
[2023-06-05] MEDS: Insulin Lispro 100 UNIT/ML 3 ML VIAL SUBCUT (20:56)
[2023-06-05] MEDS: carvediloL 3.125 MG TABLET PO (20:56)
[2023-06-06] VITALS (7 sets, daily range): BP systolic 101–131; BP diastolic 51–61; PULSE 80–88; RESP 14–20; TEMP 36.2–36.6; O2SAT 94–95
[2023-06-06] MEDS: 0.9 % Sodium Chloride Flush 3 ML SYRINGE IVFLUSH ×4 (00:57→20:45)
[2023-06-06 06:16] LABS: Mean Corpuscular HGB Conc 32.7 g/dl (31.0-35.0); Mean Corpuscular Hemoglobin 30.2 pg (27.0-33.0); Mean Corpuscular Volume 92.4 fL (80.0-98.0); Mean Platelet Volume 10.6 fL (9.4-12.3); Platelet Count 37 X10*3/uL (160-400); Red Blood Count 2.25 X10*6/uL (4.20-5.50); Red Cell Distribution Width 18.1 % (11.0-16.0); White Blood Count 4.9 X10*3/uL (4.8-10.8)
[2023-06-06] MEDS: Omeprazole 40 MG CAPSULE.DR PO (06:18)
[2023-06-06] MEDS: Levothyroxine Sodium 50 MCG TABLET PO (06:18)
[2023-06-06 06:20] LABS: Hematocrit 20.8 % (37.0-47.0); Hemoglobin 6.8 g/dl (12.0-16.0)
[2023-06-06 06:29] LABS: Anion Gap 9 (12-20); Blood Urea Nitrogen 16 mg/dL (9-16); Calcium 7.8 mg/dL (8.4-10.2); Carbon Dioxide 28 mmol/L (22-29); Chloride 100 mmol/L (96-108); Creatinine Clr Calc Pharmacy 102.6; Estimated Glomerular Filt Rate > 60; Glucose Fasting 139 mg/dL (60-99); Potassium 3.8 mmol/L (3.3-5.1); Sodium 133 mmol/L (135-145)
--- NOTE | 2023-06-06 06:57 | PC.NURSE ---
lab called blood is ready, next RN to hang blood. tubing primed and ready in pump for next RN
[2023-06-06 07:18] LABS: Glucose, Whole Blood 155 mg/dL (60-115)
[2023-06-06] MEDS: Torsemide 20 MG TABLET 60 MG PO (08:08)
[2023-06-06] MEDS: Ferrous Sulfate 324 MG TABLET.DR PO (08:08)
[2023-06-06] MEDS: Spironolactone 25 MG TABLET 200 MG PO (08:08)
[2023-06-06] MEDS: Sucralfate 1 GM TABLET PO ×2 (08:09→16:31)
[2023-06-06] MEDS: Atorvastatin Calcium 20 MG TABLET PO (08:09)
[2023-06-06] MEDS: carvediloL 3.125 MG TABLET PO ×2 (08:09→20:54)
[2023-06-06] MEDS: Insulin Lispro 100 UNIT/ML 3 ML VIAL SUBCUT ×3 (08:18→16:31)
--- NOTE | 2023-06-06 08:29 | PC.NURSE ---
Tolerating IV Blood transfusion at this time.
--- NOTE | 2023-06-06 08:33 | P.PNIM_ITS ---
Subjective Subjective Date of Service: 06/06/23 Interval History: no complaints Physical Exam 2 Vital Signs: Vital Signs: Last Vital Signs Temp 97.7 F 06/06/23 08:26 Pulse 88 06/06/23 08:26 Resp 18 06/06/23 08:26 BP 131/61 06/06/23 08:26 Pulse Ox 94 06/06/23 07:05 O2 Del Method Room Air 06/06/23 07:05 BMI result Body Mass Index 45.0 Psych: Appearance: grossly normal Objective Data Active Medications Atorvastatin Calcium (Atorvastatin Calcium 20 Mg Tablet) 20 mg PO DAILY [facility] Last Admin: 06/06/23 08:09 Dose: 20 mg Documented By: KAREN Carvedilol (Carvedilol 3.125 Mg Tablet) 3.125 mg PO BID [facility]; Protocol Last Admin: 06/06/23 08:09 Dose: 3.125 mg Documented By: KAREN Dextrose (Dextrose 50 % 25 Gm/50 Ml Syringe) 25 gm IVPUSH Q15M PRN; Protocol PRN Reason: per Hypoglycemia Standing Ord. Ferrous Sulfate (Ferrous Sulfate 324 Mg Tablet.) 324 mg PO DAILY@0900 [facility] Last Admin: 06/06/23 08:08 Dose: 324 mg Documented By: KAREN Glucose (Glucose Gel 15 Gm Gel..Gram.) 15 gm PO Q15M PRN; Protocol PRN Reason: per Hypoglycemia Standing Ord. Insulin Glargine (Insulin Glargine,Hum.Rec.Anlog 100 Unit/Ml 10 Ml Vial) 50 unit SUBCUT BEDTIME [facility] Last Admin: 06/05/23 20:56 Dose: 50 unit Documented By: YONI Insulin Human Lispro (Insulin Lispro 100 Unit/Ml 3 Ml Vial) 0 unit SUBCUT QIDACHS [facility]; Protocol Last Admin: 06/06/23 08:18 Dose: 2 unit Documented By: KAREN Levothyroxine Sodium (Levothyroxine Sodium 50 Mcg Tablet) 50 mcg PO DAILY@0600 [facility] Last Admin: 06/06/23 06:18 Dose: 50 mcg Documented By: PREETI Omeprazole (Omeprazole 40 Mg Capsule.) 40 mg PO DAILY@0630 [facility] Last Admin: 06/06/23 06:18 Dose: 40 mg Documented By: PREETI Sodium Chloride (0.9 % Sodium Chloride Flush 3 Ml Syringe) 3 ml IVFLUSH QSHIFT [facility] Last Admin: 06/06/23 08:09 Dose: 3 ml Documented By: KAREN Spironolactone (Spironolactone 25 Mg Tablet) 200 mg PO DAILY [facility]; Protocol Last Admin: 06/06/23 08:08 Dose: 200 mg Documented By: KAREN Sucralfate (Sucralfate 1 Gm Tablet) 1 gm PO BIDAC [facility] Last Admin: 06/06/23 08:09 Dose: 1 gm Documented By: KAREN Torsemide (Torsemide 20 Mg Tablet) 60 mg PO DAILY [facility]; Protocol Last Admin: 06/06/23 08:08 Dose: 60 mg Documented By: KAREN Labs 06/06/23 05:34 06/06/23 05:34 Labs: Laboratory Results - last 24 hr 06/05/23 06/05/23 06/05/23 10:18 11:34 17:13 MCV 91.5 MCH 30.7 MCHC 33.5 RDW 18.1 H Plt Count 31 L MPV 10.4 Immature Gran % (Auto) 0.4 Neut % (Auto) 77.7 H Lymph % (Auto) 9.8 L [place] % (Auto) 9.6 Eos % (Auto) 1.8 Baso % (Auto) 0.7 Lymph # (Auto) 0.4 L [place] # (Auto) 0.4 Eos # (Auto) 0.1 Baso # (Auto) 0.0 Abs Immat Gran (auto) 0.02 Absolute Neuts (auto) 3.5 Absolute Nucleated RBC 0.000 Nucleated RBC % (auto) 0.0 PT 17.4 H INR 1.4 H APTT 30.8 Anion Gap 7 L Estim Creat Clear Calc 99.5 Estimated GFR > 60 POC Glucose 120 H Random Glucose 243 H Fasting Glucose Calcium 7.6 L D Total Bilirubin 1.5 H AST 40 H ALT 18 Alkaline Phosphatase 93 Total Protein 6.1 L Albumin 2.2 L Blood Type A Positive Antibody Screen NEGATIVE Crossmatch See Detail 06/05/23 06/06/23 06/06/23 20:10 05:34 07:09 MCV 92.4 MCH 30.2 MCHC 32.7 RDW 18.1 H Plt Count 37 L MPV 10.6 Immature Gran % (Auto) Neut % (Auto) Lymph % (Auto) [place] % (Auto) Eos % (Auto) Baso % (Auto) Lymph # (Auto) [place] # (Auto) Eos # (Auto) Baso # (Auto) Abs Immat Gran (auto) Absolute Neuts (auto) Absolute Nucleated RBC 0.000 Nucleated RBC % (auto) 0.0 PT INR APTT Anion Gap 9 L Estim Creat Clear Calc 102.6 Estimated GFR > 60 POC Glucose 179 H 155 H Random Glucose Fasting Glucose 139 H Calcium 7.8 L Total Bilirubin AST ALT Alkaline Phosphatase Total Protein Albumin Blood Type Antibody Screen Crossmatch Assessment and Plan (1) Anemia: Status: Acute Plan 47F PMH 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/29/23, morbid obesity, DM, htn, hld, navid, mild intermittent asthma, presented with anemia anemia - acute on chronic s/p 1 unit prbc on 06/05/23, hgb improved from 6.1 to 6.8 will transfuse 1 more unit prbc gi following DM basal bolus insulin servin cirrhosis no urgent need for paracentesis, though US shows mod to large ascites - may need prior to discharge morbid oebstiy weight loss dvt prophylaixs - mechanical due to anemia/possible bleed full code reason for continued hospitalization:will change to inpatient as hgb did not fully respond as expected to transfusion, will need to transfuse furhter and monitor closely, has history of TRALI, also made in para prior to discharge, expected to require atleast another 2 midnights inpatient Quality Stroke Does the patient have a stroke diagnosis?: No VTE Prior VTE?: No VTE Risk Level:: Medical - moderate - high VTE Device Contraindication: N/A - Device Ordered VTE Drug Contraindication: Treatment Not Tolerated
[2023-06-06 11:32] LABS: Glucose, Whole Blood 180 mg/dL (60-115)
--- NOTE | 2023-06-06 15:55 | MHC.CM.PN ---
CM ATTEMPTED TO SEE PT WHO WAS SLEEPING CM WILL REVISIT
[2023-06-06 16:01] LABS: Glucose, Whole Blood 186 mg/dL (60-115)
[2023-06-06 20:26] LABS: Glucose, Whole Blood 149 mg/dL (60-115)
[2023-06-06] MEDS: Insulin Glargine,Hum.rec.anlog 100 UNIT/ML 10 ML VIAL 50 UNIT SUBCUT (20:47)
[2023-06-07 02:23] VITALS: BP 118/57; PULSE 80; RESP 17; TEMP 36.6; O2SAT 94
[2023-06-07] MEDS: Omeprazole 40 MG CAPSULE.DR PO (06:10)
[2023-06-07] MEDS: Levothyroxine Sodium 50 MCG TABLET PO (06:10)
[2023-06-07 06:18] LABS: Hematocrit 24.2 % (37.0-47.0); Hemoglobin 8.1 g/dl (12.0-16.0); Mean Corpuscular HGB Conc 33.5 g/dl (31.0-35.0); Mean Corpuscular Volume 89.6 fL (80.0-98.0); Mean Platelet Volume 11.4 fL (9.4-12.3); White Blood Count 6.2 X10*3/uL (4.8-10.8)
[2023-06-07 06:20] LABS: Platelet Count 43 X10*3/uL (160-400)
[2023-06-07 06:25] LABS: Glucose, Whole Blood 91 mg/dL (60-115)
[2023-06-07 06:33] LABS: Anion Gap 9 (12-20); Blood Urea Nitrogen 19 mg/dL (9-16); Carbon Dioxide 26 mmol/L (22-29); Chloride 102 mmol/L (96-108); Creatinine Clr Calc Pharmacy 89.6; Estimated Glomerular Filt Rate > 60; Glucose Fasting 87 mg/dL (60-99); Sodium 133 mmol/L (135-145)
[2023-06-07 06:48] VITALS: BP 137/60; PULSE 77; RESP 18; TEMP 36.1; O2SAT 96
--- NOTE | 2023-06-07 06:58 | PC.NURSE ---
Pt c/o of dizziness & lightheadedness this morning. POC 91. Pt forgetful of where she was and during medication administration. Will continue to monitor.
--- NOTE | 2023-06-07 08:29 | P.PNIM_ITS ---
Subjective Subjective Date of Service: 06/07/23 Interval History: ams Physical Exam 2 Vital Signs: Vital Signs: Last Vital Signs Temp 97 F 06/07/23 06:48 Pulse 77 06/07/23 06:48 Resp 18 06/07/23 06:48 BP 137/60 06/07/23 06:48 Pulse Ox 96 06/07/23 06:48 O2 Del Method Room Air 06/07/23 06:48 BMI result Body Mass Index 45.0 lethargic, confused, oriented to person and place abd still soft, non tender Objective Data Active Medications Atorvastatin Calcium (Atorvastatin Calcium 20 Mg Tablet) 20 mg PO DAILY [facility] Last Admin: 06/06/23 08:09 Dose: 20 mg Documented By: KAREN Carvedilol (Carvedilol 3.125 Mg Tablet) 3.125 mg PO BID [facility]; Protocol Last Admin: 06/06/23 20:54 Dose: 3.125 mg Documented By: VERONICA Dextrose (Dextrose 50 % 25 Gm/50 Ml Syringe) 25 gm IVPUSH Q15M PRN; Protocol PRN Reason: per Hypoglycemia Standing Ord. Ferrous Sulfate (Ferrous Sulfate 324 Mg Tablet.) 324 mg PO DAILY@0900 [facility] Last Admin: 06/06/23 08:08 Dose: 324 mg Documented By: KAREN Glucose (Glucose Gel 15 Gm Gel..Gram.) 15 gm PO Q15M PRN; Protocol PRN Reason: per Hypoglycemia Standing Ord. Insulin Glargine (Insulin Glargine,Hum.Rec.Anlog 100 Unit/Ml 10 Ml Vial) 50 unit SUBCUT BEDTIME [facility] Last Admin: 06/06/23 20:47 Dose: 50 unit Documented By: VERONICA Insulin Human Lispro (Insulin Lispro 100 Unit/Ml 3 Ml Vial) 0 unit SUBCUT QIDACHS [facility]; Protocol Last Admin: 06/07/23 07:01 Dose: Not Given Documented By: KAREN Non-Admin Reason: No Insulin Coverage Levothyroxine Sodium (Levothyroxine Sodium 50 Mcg Tablet) 50 mcg PO DAILY@0600 [facility] Last Admin: 06/07/23 06:10 Dose: 50 mcg Documented By: VERONICA Omeprazole (Omeprazole 40 Mg Capsule.) 40 mg PO DAILY@0630 [facility] Last Admin: 06/07/23 06:10 Dose: 40 mg Documented By: VERONICA Sodium Chloride (0.9 % Sodium Chloride Flush 3 Ml Syringe) 3 ml IVFLUSH QSHIFT [facility] Last Admin: 06/06/23 20:45 Dose: 3 ml Documented By: VERONICA Spironolactone (Spironolactone 25 Mg Tablet) 200 mg PO DAILY [facility]; Protocol Last Admin: 06/06/23 08:08 Dose: 200 mg Documented By: KAREN Sucralfate (Sucralfate 1 Gm Tablet) 1 gm PO BIDAC [facility] Last Admin: 06/06/23 16:31 Dose: 1 gm Documented By: KAREN Torsemide (Torsemide 20 Mg Tablet) 60 mg PO DAILY [facility]; Protocol Last Admin: 06/06/23 08:08 Dose: 60 mg Documented By: KAREN Labs 06/07/23 05:47 06/07/23 05:47 Labs: Laboratory Results - last 24 hr 06/05/23 06/06/23 06/06/23 11:34 11:08 15:56 MCV MCH MCHC RDW Plt Count MPV Absolute Nucleated RBC Nucleated RBC % (auto) Anion Gap Estim Creat Clear Calc Estimated GFR POC Glucose 180 H 186 H Fasting Glucose Calcium Crossmatch See Detail 06/06/23 06/07/23 06/07/23 20:21 05:47 06:21 MCV 89.6 MCH 30.0 MCHC 33.5 RDW 18.0 H Plt Count 43 L MPV 11.4 Absolute Nucleated RBC 0.000 Nucleated RBC % (auto) 0.0 Anion Gap 9 L Estim Creat Clear Calc 89.6 Estimated GFR > 60 POC Glucose 149 H 91 Fasting Glucose 87 Calcium 8.0 L Crossmatch Assessment and Plan (1) Anemia: Status: Acute Plan 47F PMH 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/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, morbid obesity, DM, htn, hld, navid, mild intermittent asthma, presented with anemia, now with ams anemia - acute on chronic s/p 2 unit prbc hgb improved from 6.1 to 8.1 gi following DM basal bolus insulin servin cirrhosis now complicated by acute metabolic encephalopathy due to hepatic encephalopathy will start lactulose, goal 2-3 loose stool per day morbid oebstiy weight loss dvt prophylaixs - mechanical due to anemia/possible bleed full code reason for continued hospitalization: ams Quality Stroke Does the patient have a stroke diagnosis?: No VTE Prior VTE?: No VTE Risk Level:: Medical - moderate - high VTE Device Contraindication: N/A - Device Ordered VTE Drug Contraindication: Treatment Not Tolerated
[2023-06-07] MEDS: Spironolactone 25 MG TABLET 200 MG PO (08:50)
[2023-06-07] MEDS: Lactulose 20 GM/30 ML SOLUTION PO ×4 (08:50→22:22)
[2023-06-07] MEDS: 0.9 % Sodium Chloride Flush 3 ML SYRINGE IVFLUSH ×3 (08:51→22:24)
[2023-06-07] MEDS: carvediloL 3.125 MG TABLET PO ×2 (08:51→22:22)
[2023-06-07] MEDS: Sucralfate 1 GM TABLET PO ×2 (08:51→16:36)
[2023-06-07] MEDS: Ferrous Sulfate 324 MG TABLET.DR PO (08:51)
[2023-06-07] MEDS: Torsemide 20 MG TABLET 60 MG PO (08:51)
[2023-06-07] MEDS: Atorvastatin Calcium 20 MG TABLET PO (08:51)
[2023-06-07 11:13] LABS: Glucose, Whole Blood 115 mg/dL (60-115)
[2023-06-07 16:01] VITALS: BP 120/57; PULSE 86; RESP 18; TEMP 36.6; O2SAT 96
--- NOTE | 2023-06-07 16:11 | MHC.CM.PN ---
PT REPORTS SHE LIVES WITH HER S/O WHO ASSISTS WITH CARE PRN PT IS ACTIVE WITH A VNA, SHE BELIEVES IT IS [email or web address] SHE HAS A WALKER AND USES A WHEEL CHAIR WHEN SHE GOES OUT SHE SAYS SHE HAS A HCP ALREADY, COPY REQUESTED PCP: JOSI JONES DCP: [facility] BLS TRANSPORT
[2023-06-07 16:32] LABS: Glucose, Whole Blood 177 mg/dL (60-115)
[2023-06-07] MEDS: Insulin Lispro 100 UNIT/ML 3 ML VIAL SUBCUT (16:36)
[2023-06-07 19:38] VITALS: BP 121/58; PULSE 84; RESP 18; TEMP 36.8; O2SAT 95
[2023-06-07 21:55] LABS: Glucose, Whole Blood 125 mg/dL (60-115)
[2023-06-07] MEDS: Insulin Glargine,Hum.rec.anlog 100 UNIT/ML 10 ML VIAL 50 UNIT SUBCUT (22:23)
[2023-06-07 23:27] VITALS: BP 125/60; PULSE 86; RESP 18; TEMP 36.3; O2SAT 95
[2023-06-08 06:24] LABS: Hematocrit 23.4 % (37.0-47.0); Hemoglobin 7.8 g/dl (12.0-16.0); Mean Corpuscular HGB Conc 33.3 g/dl (31.0-35.0); Mean Corpuscular Hemoglobin 30.7 pg (27.0-33.0); Mean Corpuscular Volume 92.1 fL (80.0-98.0); Mean Platelet Volume 11.8 fL (9.4-12.3); Red Blood Count 2.54 X10*6/uL (4.20-5.50); Red Cell Distribution Width 17.9 % (11.0-16.0); White Blood Count 5.3 X10*3/uL (4.8-10.8)
[2023-06-08 06:26] LABS: Platelet Count 35 X10*3/uL (160-400)
[2023-06-08 06:44] LABS: Alanine Aminotransferase 16 U/L (0-31); Albumin Level 2.2 g/dL (3.5-5.0); Alkaline Phosphatase 89 U/L (39-117); Anion Gap 10 (12-20); Aspartate Amino Transferase 42 U/L (5-31); Bilirubin Direct 0.7 mg/dL (0.0-0.5); Bilirubin Total 2.9 mg/dL (0.0-1.0); Blood Urea Nitrogen 20 mg/dL (9-16); Calcium 8.1 mg/dL (8.4-10.2); Carbon Dioxide 25 mmol/L (22-29); Chloride 105 mmol/L (96-108); Creatinine Clr Calc Pharmacy 81.9; Estimated Glomerular Filt Rate 57; Glucose Fasting 94 mg/dL (60-99); Potassium 3.8 mmol/L (3.3-5.1); Sodium 136 mmol/L (135-145); Total Protein 6.2 g/dL (6.5-8.0)
[2023-06-08] MEDS: Levothyroxine Sodium 50 MCG TABLET PO (07:27)
[2023-06-08] MEDS: Sucralfate 1 GM TABLET PO (07:27)
[2023-06-08] MEDS: Omeprazole 40 MG CAPSULE.DR PO (07:27)
[2023-06-08] MEDS: 0.9 % Sodium Chloride Flush 3 ML SYRINGE IVFLUSH (07:27)
[2023-06-08 07:54] VITALS: BP 127/63; PULSE 79; RESP 18; TEMP 36.3; O2SAT 96
[2023-06-08 07:54] LABS: Glucose, Whole Blood 92 mg/dL (60-115)
--- NOTE | 2023-06-08 08:42 | P.DS_ITS ---
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 patient was at short stay for scheduled routine paracentesis, preprocedure labs reveled hgb 6.1, baseline is around 8. patient denies any symptoms or gross bleed. Us showed some asictes, patent tips. 1 unit prbc ordered. hospital course: patient was admitted for acute on chronic anemia. she received 2 units prbc total, hgb improved from 6.1 to 7.8 at time of discharge, appears stable. no obvious signs of bleed. course was then complciated by SERVIN cirrhosis complicated by acute metabolic encephalopathy due to hepatic encephalopathy. she was treated with lactulose and quickly returned to baseline. for dm received basal bolus insulin. for morbid obesity weight loss recommended. patient is back to baseline and will be discharged home. Time Attestation Discharge coordination time: Greater than 30 minutes Quality: Safe Use of Opioids Does Pt have an Active Cancer Diagnosis on the Problem List?: No Quality: Stroke Does the patient have a stroke diagnosis?: No Physical Exam Vital Signs: Vital Signs: Last Vital Signs Temp 97.3 F 06/08/23 07:54 Pulse 79 06/08/23 07:54 Resp 18 06/08/23 07:54 BP 127/63 06/08/23 07:54 Pulse Ox 96 06/08/23 07:54 O2 Del Method Room Air 06/08/23 07:54 BMI result Body Mass Index 45.0 General: AO X 3, no acute distress Resp: CTA bilateral, no accessory muscles used CVS: S1,S2,RRR GI: soft, non tender, non distended Neuro: motor grossly intact, alert Psych: appropriate affect, appropriate insight DS: Data Data Completed and Pending Completed studies during hospitalization [Text1]: Procedures Control Bleeding in Gastrointestinal Tract, Via Natural or Artificial Opening Endoscopic (04/24/23) Drainage of Peritoneal Cavity, Percutaneous Approach (06/21/22) Insertion of Endotracheal Airway into Trachea, Via Natural or Artificial Opening (06/21/22) Insertion of Infusion Device into Right Basilic Vein, Percutaneous Approach (05/30/22) Insertion of Infusion Device into Superior Vena Cava, Percutaneous Approach (06/21/22) Introduction of Mineral-based Topical Hemostatic Agent into Upper GI, Via Natural or Artificial Opening Endoscopic, [employer] 6 (04/24/23) Introduction of Vasopressor into Central Vein, Percutaneous Approach (06/21/22) Occlusion of Esophageal Vein with Extraluminal Device, Via Natural or Artificial Opening Endoscopic (04/24/23) Respiratory Ventilation, Greater than 96 Consecutive Hours (06/21/22) Transfusion of Nonautologous Platelets into Peripheral Vein, Percutaneous Approach (04/24/23) Transfusion of Nonautologous Red Blood Cells into Peripheral Vein, Percutaneous Approach (04/24/23) Ultrasonography of Superior Vena Cava, Guidance (06/21/22) Labs on day of discharge: Laboratory Results - last 24 hr 06/07/23 06/07/23 06/07/23 11:09 16:22 21:51 WBC RBC Hgb Hct MCV MCH MCHC RDW Plt Count MPV Absolute Nucleated RBC Nucleated RBC % (auto) Sodium Potassium Chloride Carbon Dioxide Anion Gap BUN Creatinine Estim Creat Clear Calc Estimated GFR POC Glucose 115 177 H 125 H Fasting Glucose Calcium Total Bilirubin Direct Bilirubin AST ALT Alkaline Phosphatase Total Protein Albumin 06/08/23 06/08/23 05:39 07:39 WBC 5.3 RBC 2.54 L Hgb 7.8 L Hct 23.4 L MCV 92.1 MCH 30.7 MCHC 33.3 RDW 17.9 H Plt Count 35 L MPV 11.8 Absolute Nucleated RBC 0.000 Nucleated RBC % (auto) 0.0 Sodium 136 Potassium 3.8 Chloride 105 Carbon Dioxide 25 Anion Gap 10 L BUN 20 H Creatinine 1.04 Estim Creat Clear Calc 81.9 Estimated GFR 57 POC Glucose 92 Fasting Glucose 94 Calcium 8.1 L Total Bilirubin 2.9 H Direct Bilirubin 0.7 H AST 42 H ALT 16 Alkaline Phosphatase 89 Total Protein 6.2 L Albumin 2.2 L Discharge Plan Discharge Anticipated Discharge Date/Time: 06/08/23 08:37 Patient Disposition: Home, Self-Care Discharge Diagnosis: anemia, hepatic encephalopathy Referrals: Radha Anne MD [Primary Care Provider] - 1 Week Discharge Medications: New lactulose 20 gram/30 mL solution 20 g PO BID Qty: 1200 0RF Continued insulin glargine U-300 conc [Toujeo Max U-300 SoloStar] 300 unit/mL (3 mL) insulin pen 75 unit subcut BEDTIME omeprazole 40 mg Capsule,Delayed Release(Dr/Ec) 40 mg PO DAILY@0630 Qty: 30 0RF insulin lispro 100 unit/mL insulin pen 26 unit subcut TIDAC albuterol sulfate 2.5 mg /3 mL (0.083 %) solution for nebulization 2.5 mg inhalation QID PRN (Reason: dyspnea) Asmanex HFA 200 mcg/actuation HFA aerosol inhaler 1 puff INHALATION BID atorvastatin 20 mg Tablet 20 mg PO DAILY Qty: 30 0RF sucralfate 1 gram Tablet 1 g PO BIDAC Qty: 60 0RF carvedilol 3.125 mg Tablet 3.125 mg PO BID Qty: 60 0RF Protocol: Hold for SBP/HR < HOLD for SBP < : 90 HOLD for HR < : 60 ferrous gluconate 324 mg (38 mg iron) tablet 324 mg PO QAM Trulicity 1.5 mg/0.5 mL pen injector 1.5 mg subcut MO (DME) FreeStyle Lite Strips Strip See Rx Instructions .ROUTE .MEDSUPPLY Qty: 10 Rx Instructions: test 3x a day (DME) lancets [FreeStyle Lancets] 28 gauge misc See Rx Instructions .ROUTE .MEDSUPPLY Qty: 100 Rx Instructions: test 3x a day albuterol sulfate [Ventolin HFA] 90 mcg/actuation HFA aerosol inhaler 2 puff inhalation Q6H PRN (Reason: Wheezing) levothyroxine 50 mcg tablet 50 mcg PO DAILY@0600 cholecalciferol (vitamin D3) [Vitamin D3] 50 mcg (2,000 unit) capsule 50 mcg PO DAILY spironolactone 100 mg tablet 200 mg PO DAILY (DME) FreeStyle Brooke 2 Sensor Kit See Rx Instructions .ROUTE DAILY Qty: 1 Rx Instructions: As directed loratadine 10 mg tablet 10 mg PO DAILY PRN (Reason: Allergy Symptoms) (DME) pen needle, diabetic [Pentips] 32 gauge x 5/32 needle See Rx Instructions .ROUTE .MEDSUPPLY Qty: 1200 Rx Instructions: As directed potassium chloride 20 mEq tablet,ER particles/crystals 20 meq PO DAILY torsemide 20 mg tablet 60 mg PO DAILY Discharge Orders: Discharge Order (Routine); Ordered 06/08/23 Ordered By: Demetrio Mares Diet: Advance to usual diet Activity on Discharge: As tolerated Stand Alone Forms: Patient Portal Discharge page Care Plan Goals: recovery Health Concerns: anemia, encephloapthy Plan of Treatment: lactulose to maintain 2 loose bms per day, follow up with brand marketing coordinator Assessment: see above
--- NOTE | 2023-06-08 09:16 | MHC.CM.PN ---
pt dcd home no servies by fabio
[2023-06-08] MEDS: Ferrous Sulfate 324 MG TABLET.DR PO (09:22)
[2023-06-08] MEDS: Atorvastatin Calcium 20 MG TABLET PO (09:22)
[2023-06-08] MEDS: Torsemide 20 MG TABLET 60 MG PO (09:22)
[2023-06-08] MEDS: Spironolactone 25 MG TABLET 200 MG PO (09:22)
[2023-06-08] MEDS: carvediloL 3.125 MG TABLET PO (09:22)
[2023-06-08] MEDS: Lactulose 20 GM/30 ML SOLUTION PO (09:22)
== END 2023-06-08 10:33 | disposition home or self-care (01) | DRG 663 ==
LOC: HO.ED 11:20 → HO.EDOVER 12:21 → HO.S3 15:52
PROVIDERS: Admitting Provider Internal Medicine; Emergency Provider Student in an Organized Health Care Education/Training Program; PCP Family Medicine; Visit Provider Internal Medicine
DX: D64.89 Other specified anemias (principal); G93.41 Metabolic encephalopathy; K76.82 Hepatic encephalopathy; R18.8 Other ascites; K74.69 Other cirrhosis of liver; K75.81 Nonalcoholic steatohepatitis (NASH); E28.2 Polycystic ovarian syndrome; G47.33 Obstructive sleep apnea (adult) (pediatric); J45.20 Mild intermittent asthma, uncomplicated; E66.01 Morbid (severe) obesity due to excess calories; Z68.42 Body mass index [BMI] 45.0-49.9, adult; Z87.891 Personal history of nicotine dependence; Z79.4 Long term (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 insulin; Z79.85 Long-term (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 injectable non-insulin antidiabetic drugs; Z79.890 Hormone replacement therapy; Z79.899 Other long term (current) drug therapy
CPT/HCPCS: 36415; 80048; 80053; 80076; 82947; 85025; 85027; 85610; 85730; 86850; 86900; 86901; 86923; 93975; 99285; P9016

== ENCOUNTER → 2023-06-05 12:17 | Outpatient (BNV) | payer MEDICAID, SELFPAY | PROVIDERS: Admitting Provider Internal Medicine; Emergency Provider Student in an Organized Health Care Education/Training Program; PCP Family Medicine; Visit Provider Internal Medicine | DX: D50.0 Iron deficiency anemia secondary to blood loss (chronic) (principal) | CPT/HCPCS: 99223; 99233; 99238 ==

== ENCOUNTER → 2023-06-05 12:17 | Outpatient (BNV) | payer MEDICAID, SELFPAY | PROVIDERS: Admitting Provider Internal Medicine; Emergency Provider Student in an Organized Health Care Education/Training Program; PCP Family Medicine; Visit Provider Internal Medicine Gastroenterology | DX: K74.60 Unspecified cirrhosis of liver (principal); R18.8 Other ascites; D64.9 Anemia, unspecified | CPT/HCPCS: 99222 ==

== ENCOUNTER 2023-06-15 16:15 | Outpatient (REF) | payer MEDICAID, SELFPAY ==
[2023-06-15 17:23] LABS: MANUAL DIFF FLAG NO
[2023-06-15 17:37] LABS: Basophils Percent Auto 1.3 % (0-2); Eosinophils Absolute Auto 0.1 X10*3/uL (0.0-0.4); Eosinophils Percent Auto 3.1 % (0-4); Hematocrit 23.8 % (37.0-47.0); Hemoglobin 7.9 g/dl (12.0-16.0); Imm Gran Abs Auto 0.02 X10*3/uL (0.00-0.03); Imm Gran Pct Auto 0.6 % (0.0-0.4); Lymphocytes Absolute Auto 0.4 X10*3/uL (1.2-4.9); Lymphocytes Percent Auto 13.1 % (20-40); Mean Corpuscular HGB Conc 33.2 g/dl (31.0-35.0); Mean Corpuscular Hemoglobin 32.8 pg (27.0-33.0); Mean Corpuscular Volume 98.8 fL (80.0-98.0); Mean Platelet Volume 11.3 fL (9.4-12.3); Monocytes Absolute Auto 0.3 X10*3/uL (0.1-1.2); Monocytes Percent Auto 8.4 % (2-11); Neutrophils Absolute Auto 2.4 x10*3/uL (2.0-8.3); Neutrophils Percent Auto 73.5 % (45-73); Platelet Count 48 X10*3/uL (160-400); Red Blood Count 2.41 X10*6/uL (4.20-5.50); Red Cell Distribution Width 21.6 % (11.0-16.0); White Blood Count 3.2 X10*3/uL (4.8-10.8)
[2023-06-15 17:59] LABS: Alanine Aminotransferase 16 U/L (0-31); Albumin Level 3.1 g/dL (3.5-5.0); Alkaline Phosphatase 83 U/L (39-117); Anion Gap 10 (12-20); Aspartate Amino Transferase 41 U/L (5-31); Blood Urea Nitrogen 15 mg/dL (9-16); Calcium 8.9 mg/dL (8.4-10.2); Carbon Dioxide 25 mmol/L (22-29); Chloride 106 mmol/L (96-108); Estimated Glomerular Filt Rate 59; Glucose Random 221 mg/dL (60-115); Potassium 4.4 mmol/L (3.3-5.1); Sodium 137 mmol/L (135-145); Total Protein 7.1 g/dL (6.5-8.0)
== END 2023-06-15 16:16 | disposition home or self-care (01) ==
LOC: HO.HHCL 16:15
PROVIDERS: Visit Provider Student in an Organized Health Care Education/Training Program
DX: K74.60 Unspecified cirrhosis of liver (principal)
CPT/HCPCS: 36415; 80053; 85025

== ENCOUNTER 2023-06-29 14:05 | Outpatient (REF) | payer MEDICAID, SELFPAY ==
[2023-06-29 16:35] LABS: Estimated Average Glucose 114 mg/dL; Hemoglobin A1C 54.1138 umol/L; Hemoglobin A1c % 5.6 % (<6.0)
[2023-06-29 16:48] LABS: Alanine Aminotransferase 17 U/L (0-31); Albumin Level 2.7 g/dL (3.5-5.0); Alkaline Phosphatase 91 U/L (39-117); Anion Gap 8 (12-20); Aspartate Amino Transferase 42 U/L (5-31); Bilirubin Total 2.4 mg/dL (0.0-1.0); Blood Urea Nitrogen 23 mg/dL (9-16); Calcium 8.6 mg/dL (8.4-10.2); Carbon Dioxide 26 mmol/L (22-29); Chloride 102 mmol/L (96-108); Cholesterol 81 mg/dL (<200); Estimated Glomerular Filt Rate 48; Glucose Random 222 mg/dL (60-115); HDL Cholesterol 29 mg/dL (>40); Iron 77 mcg/dL (30-160); LDL Cholesterol Calculated 41 mg/dL (<100); Percent Iron Saturation 27 % (15-50); Sodium 132 mmol/L (135-145); Total Iron Binding Capacity 289 mcg/dL (228-428); Total Protein 6.5 g/dL (6.5-8.0); Triglycerides 59 mg/dL (<150); Unsaturated Iron Binding 212 ug/dL
[2023-06-29 17:04] LABS: Ferritin 103 ng/mL (10-250); Free T4 (Free Thyroxine) 0.97 ng/dL (0.71-1.85)
[2023-06-29 17:13] LABS: Folate 9.9 ng/mL (> or = 4.0); Vitamin B12 919 pg/mL (200-900)
[2023-06-29 17:43] LABS: Basophils Percent Auto 0.8 % (0-2); Eosinophils Absolute Auto 0.1 X10*3/uL (0.0-0.4); Eosinophils Percent Auto 1.4 % (0-4); Imm Gran Abs Auto 0.02 X10*3/uL (0.00-0.03); Imm Gran Pct Auto 0.6 % (0.0-0.4); Lymphocytes Absolute Auto 0.3 X10*3/uL (1.2-4.9); Lymphocytes Percent Auto 8.7 % (20-40); MANUAL DIFF FLAG SCAN; Mean Corpuscular HGB Conc 33.3 g/dl (31.0-35.0); Mean Corpuscular Hemoglobin 33.8 pg (27.0-33.0); Mean Corpuscular Volume 101.4 fL (80.0-98.0); Mean Platelet Volume 13.2 fL (9.4-12.3); Monocytes Absolute Auto 0.5 X10*3/uL (0.1-1.2); Monocytes Percent Auto 12.6 % (2-11); Neutrophils Absolute Auto 2.7 x10*3/uL (2.0-8.3); Neutrophils Percent Auto 75.9 % (45-73); Red Blood Count 1.48 X10*6/uL (4.20-5.50); Red Cell Distribution Width 20.7 % (11.0-16.0); SCAN SMEAR FLAG 1; White Blood Count 3.6 X10*3/uL (4.8-10.8)
[2023-06-29 19:06] LABS: PLT ABN DIST 1; Platelet Count 32 X10*3/uL (160-400)
[2023-06-29 19:33] LABS: SLIDE REVIEW VERIFIED
== END 2023-06-29 14:06 | disposition home or self-care (01) ==
LOC: HO.HHCL 14:05
PROVIDERS: Visit Provider Student in an Organized Health Care Education/Training Program
DX: E11.69 Type 2 diabetes mellitus with other specified complication (principal); E03.9 Hypothyroidism, unspecified; Z79.4 Long term (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 insulin
CPT/HCPCS: 36415; 80053; 80061; 82607; 82728; 82746; 83036; 83540; 84439; 84443; 85025

== ENCOUNTER 2023-06-29 20:19 | Inpatient (IN) | payer MEDICAID, SELFPAY ==
--- NOTE | 2023-06-29 | ECG_ITS ---
Test Reason : NAUSEA Blood Pressure : / mmHG Vent. Rate : 085 BPM Atrial Rate : 085 BPM P-R Int : 170 ms QRS Dur : 074 ms QT Int : 360 ms P-R-T Axes : 037 032 004 degrees QTc Int : 428 ms Normal sinus rhythm Nonspecific T wave abnormality Abnormal ECG When compared with ECG of 23-JUN-2022 21:51, T wave inversion now evident in Lateral leads Referred By: Generic ED Physician Electronically Signed By:MICHELLE FOSTER MD
--- NOTE | ~2023-06-29 | XR_ITS ---
EXAMINATION: XR CHEST CLINICAL INFORMATION: SOB. COMPARISON: None available. TECHNIQUE: Frontal view of the chest was obtained. FINDINGS: The lungs are hypoexpanded with right lower lobe patchy opacity likely infiltrate or atelectasis. The heart size is enlarged. Pulmonary vascularity is prominent. No gross bony abnormality seen. XR/XR chest 1V IMPRESSION: 1. Right lower lobe patchy opacity likely infiltrate or atelectasis. 2. Mild cardiomegaly with mild pulmonary vascular congestion suspected.
--- NOTE | ~2023-06-29 | US_ITS ---
EXAMINATION: US ABDOMEN LIMITED CLINICAL INFORMATION: Ascites. COMPARISON: None available. TECHNIQUE: Real-time imaging of of the right upper quadrant, right lower quadrant, left upper quadrant and left lower quadrant was performed. FINDINGS: FREE FLUID: A small amount of ascites was seen in the right upper quadrant. Paracentesis was canceled. US/US abdomen limited IMPRESSION: Small amount of ascites within the right upper quadrant.
[2023-06-29 20:27] VITALS: BP 102/51; BP 136/60; PULSE 83; PULSE 86; RESP 15; TEMP 37; O2SAT 100; O2SAT 94; BMI 45.0
[2023-06-29 20:45] LABS: Glucose, Whole Blood 195 mg/dL (60-115)
[2023-06-29 20:47] LABS: MANUAL DIFF FLAG NO
[2023-06-29 20:48] LABS: Basophils Percent Auto 0.8 % (0-2); Eosinophils Absolute Auto 0.1 X10*3/uL (0.0-0.4); Eosinophils Percent Auto 2.1 % (0-4); Imm Gran Abs Auto 0.01 X10*3/uL (0.00-0.03); Imm Gran Pct Auto 0.3 % (0.0-0.4); Lymphocytes Absolute Auto 0.4 X10*3/uL (1.2-4.9); Lymphocytes Percent Auto 11.6 % (20-40); Mean Corpuscular HGB Conc 33.8 g/dl (31.0-35.0); Mean Corpuscular Hemoglobin 32.9 pg (27.0-33.0); Mean Corpuscular Volume 97.4 fL (80.0-98.0); Mean Platelet Volume 12.2 fL (9.4-12.3); Monocytes Absolute Auto 0.3 X10*3/uL (0.1-1.2); Monocytes Percent Auto 8.5 % (2-11); Neutrophils Absolute Auto 2.9 x10*3/uL (2.0-8.3); Neutrophils Percent Auto 76.7 % (45-73); Red Blood Count 1.52 X10*6/uL (4.20-5.50); Red Cell Distribution Width 19.4 % (11.0-16.0); White Blood Count 3.8 X10*3/uL (4.8-10.8)
--- NOTE | 2023-06-29 20:48 | PC.NURSE ---
pt biba from home, a&ox4, respirations even and unlabored, pt reporting getting blood transfusion 2 days ago for anemia, reports nausea began 1 week ago. pt denies vomiting and diarrhea. 22G placed in right ac. labs obtained and sent.
[2023-06-29 20:49] LABS: Platelet Count 29 X10*3/uL (160-400)
[2023-06-29 20:52] LABS: Hematocrit 14.8 % (37.0-47.0)
--- NOTE | 2023-06-29 20:53 | PC.NURSE ---
critical result- h&h received at this time. provider aware.
--- NOTE | 2023-06-29 20:57 | ED_ITS ---
HPI - General Adult General Chief complaint: Nausea/Vomiting/Diarrhea Stated complaint: N/V AFTER BLOOD TRANSFUSION 2 DAYS AGO Time Seen by Provider: 06/29/23 20:56 Source: patient Mode of arrival: EMS Limitations: no limitations History of Present Illness HPI narrative: Patient is 48 years old with history of Servin cirrhosis status post tips, diabetes insulin dependent, hypertension, AMY not on CPAP, asthma, severe anemia status post blood transfusion last week came here because as she been feeling very weak and nauseated and vomiting no melena no blood in the vomitus no history of variceal bleed patient does have grade 2 varices in the endoscopy done on 06/05/2023. Patient denied chest pain or shortness breath or palpitation does feel tired slightly constipated Related Data Home Medications Medication Instructions Recorded Confirmed albuterol sulfate 90 mcg/actuation 2 puff inhalation Q6H PRN Wheezing 08/16/20 06/05/23 aerosol inhaler (Ventolin HFA) blood sugar diagnostic (FreeStyle #10 ea 08/16/20 06/04/23 Lite Strips) lancets 28 gauge (FreeStyle #100 ea 08/16/20 06/04/23 Lancets) levothyroxine 50 mcg tablet 50 mcg PO DAILY@0600 11/04/21 06/05/23 insulin glargine U-300 conc 300 75 unit subcut BEDTIME 04/30/22 06/05/23 unit/mL (3 mL) subcutaneous pen (Toujeo Max U-300 SoloStar) insulin lispro 100 unit/mL 26 unit subcut TIDAC 05/31/22 06/05/23 subcutaneous pen cholecalciferol (vitamin D3) 50 50 mcg PO DAILY 09/29/22 06/05/23 mcg (2,000 unit) capsule (Vitamin D3) flash glucose sensor (FreeStyle #1 ea 09/29/22 06/04/23 Brooke 2 Sensor kit) loratadine 10 mg tablet 10 mg PO DAILY PRN Allergy Symptoms 09/29/22 06/05/23 spironolactone 100 mg tablet 200 mg PO DAILY 09/29/22 06/05/23 pen needle, diabetic 32 gauge x #1,200 ea 01/23/23 06/04/23 (Pentips) potassium chloride 20 mEq 20 meq PO DAILY 01/23/23 06/05/23 tablet,extended release(part/cryst) torsemide 20 mg tablet 60 mg PO DAILY 01/23/23 06/05/23 albuterol sulfate 2.5 mg/3 mL 2.5 mg inhalation QID PRN dyspnea 04/24/23 06/05/23 (0.083 %) solution for nebulization mometasone 200 mcg/actuation HFA 1 puff inhalation BID 04/24/23 06/05/23 aerosol inhaler (Asmanex HFA) dulaglutide 1.5 mg/0.5 mL 1.5 mg subcut MO 06/05/23 06/05/23 subcutaneous pen injector (Trulicity) ferrous gluconate 324 mg (38 mg 324 mg PO QAM 06/05/23 06/05/23 iron) tablet Previous Rx's Medication Instructions Recorded omeprazole 40 mg capsule,delayed 40 mg PO DAILY@0630 #30 caps 05/05/22 release atorvastatin 20 mg tablet 20 mg PO DAILY #30 tabs 04/28/23 carvedilol 3.125 mg tablet 3.125 mg PO BID #60 tabs 04/28/23 sucralfate 1 gram tablet 1 g PO BIDAC #60 tabs 04/28/23 lactulose 20 gram/30 mL oral 20 g (30 mL) PO BID #1,200 mL 06/08/23 solution Allergies Allergy/AdvReac Type Severity Reaction Status Date / Time ibuprofen [From MOTRIN] Allergy Intermediate RASH Verified 06/29/23 20:26 penicillin V Allergy Mild hives Verified 06/29/23 20:26 codeine Allergy Unknown Verified 06/29/23 20:26 Rx- listed on H&P Review of Systems 2 Review of Systems: Yes all other systems are reviewed and are negative [facility] Past Medical History Medical History S/P abdominal paracentesis 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 Status post abdominal paracentesis HTN (hypertension) AMY (obstructive sleep apnea) Dyslipidemia Asthma Non-toxic multinodular goiter Diabetic nephropathy associated with type 2 diabetes mellitus Elevated TSH Goiter Acromegaly Morbid obesity PCOS (polycystic ovarian syndrome) 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 Diabetes type 2, uncontrolled 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 Surgical History Previous back surgery Hx of colonoscopy Hx of endoscopy Family History Family History Father Unknown family medical history Mother Hx of type 1 diabetes mellitus Social History Social History Household Members: Spouse Housing: House Do you presently have visiting nurse or other home services: Yes Alcohol intake: never Patient Tobacco Use Status: Former Tobacco user Quit Date: 7 yrs ago Tobacco use type: Cigarette Smoked in Last 30 Days: No Second Hand Smoke Exposure: Yes Use of substances other than those prescribed or required for medical reasons: No Substance Use Type: Marijuana Advance Directives: No Advance Directives Information Provided: No Patient : No service: No Current occupational status: disabled 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 Oriented X3. No acute distress. Obese slow to respond Eyes: Pallor ENT: Pharynx normal. Oral Mucosa moist Neck: Normal inspection. Neck supple. CVS: Normal heart rate and rhythm. Pulses normal. Respiratory: No respiratory distress. Equal air entry bilateral, no wheezing/rales/rhonchi Abdomen: Soft no free fluid Bowel sounds are present, no mass palpable, no CVA tenderness rectal : Dark stool guaiac positive Skin: Skin warm and dry. Normal skin color. Normal skin turgor. Extremities: 2+ lower extremity edema. No calf tenderness Neuro: Oriented X 3. No motor deficit. Hepatic flaps+ Medications Administered Generic Name Dose Route Start Last Admin Trade Name Freq PRN Reason Stop Dose Admin Octreotide Acetate 500 mcg/ 501 mls @ 50.1 mls/hr 06/29/23 22:30 06/29/23 23:01 Sodium Chloride IVCONT 50 mcg/hr .Q10H NIMO 50.1 mls/hr Administration 50 MCG/HR Insulin Glargine 35 unit 06/29/23 22:30 06/29/23 23:14 Insulin Glargine,Hum.Rec.Anlog 100 Unit/Ml 10 Ml Vial SUBCUT 35 unit BEDTIME NIMO Administration Sodium Chloride 3 ml 06/30/23 00:00 06/30/23 00:52 0.9 % Sodium Chloride Flush 3 Ml Syringe IVFLUSH Not Given QSHIFT NIMO Discontinued Medications Generic Name Dose Route Start Last Admin Trade Name Freq PRN Reason Stop Dose Admin Sodium Chloride 100 mls @ 100 mls/hr 06/29/23 21:00 06/29/23 23:30 Ns IV 06/29/23 21:59 100 mls/hr ONCE ONE Administration Lactulose 20 gm 06/29/23 23:15 06/30/23 00:49 Lactulose 20 Gm/30 Ml Solution PO 06/29/23 23:16 20 gm ONCE ONE Administration Octreotide Acetate 50 mcg 06/29/23 22:19 06/29/23 23:00 Octreotide Acetate 100 Mcg/Ml Ampul IVPUSH 06/29/23 22:20 50 mcg ONCE ONE Administration Pantoprazole Sodium 80 mg 06/29/23 21:22 06/29/23 22:12 Pantoprazole Sodium 40 Mg/10 Ml Vial IVPUSH 06/29/23 21:23 80 mg ONCE ONE Administration Medical Decision Making Medical Decision Making MDM Narrative: Patient with significant liver cirrhosis secondary to SERVIN with grade 2 varices with severe anemia likely intermittent bleed. Guaiac was positive patient received 2 units of blood and started on octreotide. GI to follow Differential Diagnosis Differential Diagnoses: The differential diagnosis associated with the presentation includes Hepatic encephalopathy/severe anemia/ GI bleed Admission/Observation Consideration of admission/observation: Escalation of care including admission/observation considered Consult Healthcare Provider Management of the patient was discussed with: Hospitalist Lab Data [facility] Lab Attestation statement: I reviewed the patient's lab results. 06/29/23 20:41 06/29/23 20:41 Labs: Lab Results 06/29/23 06/29/23 06/29/23 Range/Units 20:37 20:41 21:23 WBC 3.8 L (4.8-10.8) X10*3/uL RBC 1.52 L (4.20-5.50) X10*6/uL Hgb 5.0 L* (12.0-16.0) g/dl Hct 14.8 L* (37.0-47.0) % MCV 97.4 (80.0-98.0) fL MCH 32.9 (27.0-33.0) pg MCHC 33.8 (31.0-35.0) g/dl RDW 19.4 H (11.0-16.0) % Plt Count 29 L (160-400) X10*3/uL MPV 12.2 (9.4-12.3) fL Immature Gran % (Auto) 0.3 (0.0-0.4) % Neut % (Auto) 76.7 H (45-73) % Lymph % (Auto) 11.6 L (20-40) % Garland % (Auto) 8.5 (2-11) % Eos % (Auto) 2.1 (0-4) % Baso % (Auto) 0.8 (0-2) % Lymph # (Auto) 0.4 L (1.2-4.9) X10*3/uL Garland # (Auto) 0.3 (0.1-1.2) X10*3/uL Eos # (Auto) 0.1 (0.0-0.4) X10*3/uL Baso # (Auto) 0.0 (0.0-0.2) X10*3/uL Abs Immat Gran (auto) 0.01 (0.00-0.03) X10*3/uL Absolute Neuts (auto) 2.9 (2.0-8.3) x10*3/uL Absolute Nucleated RBC 0.000 (0.0-0.012) X10*3/uL Nucleated RBC % (auto) 0.0 (0.0-0.2) /100WBC PT (11.1-13.3) SEC INR (0.9-1.1) Sodium 133 L (135-145) mmol/L Potassium 4.1 (3.3-5.1) mmol/L Chloride 102 (96-108) mmol/L Carbon Dioxide 25 (22-29) mmol/L Anion Gap 10 L (12-20) BUN 22 H (9-16) mg/dL Creatinine 1.28 (0.5-1.4) mg/dL Estim Creat Clear Calc 65.8 Estimated GFR 45 POC Glucose 195 H (60-115) mg/dL Random Glucose 217 H (60-115) mg/dL Calcium 8.6 (8.4-10.2) mg/dL Total Bilirubin 2.7 H (0.0-1.0) mg/dL AST 44 H (5-31) U/L ALT 18 (0-31) U/L Alkaline Phosphatase 89 (39-117) U/L Ammonia (13-55) umol/L Total Protein 6.7 (6.5-8.0) g/dL Albumin 2.7 L (3.5-5.0) g/dL Stool Occult Blood POSITIVE (NEGATIVE) Blood Type Antibody Screen Crossmatch 06/29/23 06/29/23 Range/Units 21:27 22:27 WBC (4.8-10.8) X10*3/uL RBC (4.20-5.50) X10*6/uL Hgb (12.0-16.0) g/dl Hct (37.0-47.0) % MCV (80.0-98.0) fL MCH (27.0-33.0) pg MCHC (31.0-35.0) g/dl RDW (11.0-16.0) % Plt Count (160-400) X10*3/uL MPV (9.4-12.3) fL Immature Gran % (Auto) (0.0-0.4) % Neut % (Auto) (45-73) % Lymph % (Auto) (20-40) % Garland % (Auto) (2-11) % Eos % (Auto) (0-4) % Baso % (Auto) (0-2) % Lymph # (Auto) (1.2-4.9) X10*3/uL Garland # (Auto) (0.1-1.2) X10*3/uL Eos # (Auto) (0.0-0.4) X10*3/uL Baso # (Auto) (0.0-0.2) X10*3/uL Abs Immat Gran (auto) (0.00-0.03) X10*3/uL Absolute Neuts (auto) (2.0-8.3) x10*3/uL Absolute Nucleated RBC (0.0-0.012) X10*3/uL Nucleated RBC % (auto) (0.0-0.2) /100WBC PT 17.1 H (11.1-13.3) SEC INR 1.4 H (0.9-1.1) Sodium (135-145) mmol/L Potassium (3.3-5.1) mmol/L Chloride (96-108) mmol/L Carbon Dioxide (22-29) mmol/L Anion Gap (12-20) BUN (9-16) mg/dL Creatinine (0.5-1.4) mg/dL Estim Creat Clear Calc Estimated GFR POC Glucose 182 H (60-115) mg/dL Random Glucose (60-115) mg/dL Calcium (8.4-10.2) mg/dL Total Bilirubin (0.0-1.0) mg/dL AST (5-31) U/L ALT (0-31) U/L Alkaline Phosphatase (39-117) U/L Ammonia 94 H (13-55) umol/L Total Protein (6.5-8.0) g/dL Albumin (3.5-5.0) g/dL Stool Occult Blood (NEGATIVE) Blood Type A Positive Antibody Screen NEGATIVE Crossmatch See Detail Independent Interpretation I performed an independent interpretation of an: EKG Interpretation: Normal sinus rhythm heart rate 85 beats per minute normal interval normal axis no acute ST-T in no acute ischemia Discharge Plan Discharge Clinical Impression: Severe anemia, 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, Hepatic encephalopathy, GIB (gastrointestinal bleeding) Patient Disposition: Admitted As Inpatient
[2023-06-29 21:02] LABS: Alanine Aminotransferase 18 U/L (0-31); Albumin Level 2.7 g/dL (3.5-5.0); Alkaline Phosphatase 89 U/L (39-117); Anion Gap 10 (12-20); Aspartate Amino Transferase 44 U/L (5-31); Bilirubin Total 2.7 mg/dL (0.0-1.0); Blood Urea Nitrogen 22 mg/dL (9-16); Calcium 8.6 mg/dL (8.4-10.2); Carbon Dioxide 25 mmol/L (22-29); Chloride 102 mmol/L (96-108); Creatinine Clr Calc Pharmacy 65.8; Estimated Glomerular Filt Rate 45; Glucose Random 217 mg/dL (60-115); Potassium 4.1 mmol/L (3.3-5.1); Sodium 133 mmol/L (135-145); Total Protein 6.7 g/dL (6.5-8.0)
[2023-06-29 21:28] LABS: OBS Int Ctl Valid YES; OBS1 POSITIVE (NEGATIVE)
[2023-06-29 21:39] LABS: INTERNATIONAL NORM RATIO 1.4 (0.9-1.1); Prothrombin Time 17.1 SEC (11.1-13.3)
[2023-06-29 21:42] LABS: Ammonia 94 umol/L (13-55)
[2023-06-29 22:11] VITALS: BP 112/49; PULSE 85; RESP 18; TEMP 36.5; O2SAT 95
[2023-06-29] MEDS: Pantoprazole Sodium 40 MG/10 ML VIAL 80 MG IVPUSH (22:12)
--- NOTE | 2023-06-29 22:13 | PC.NURSE ---
pt medicated per mar.
--- NOTE | 2023-06-29 22:21 | P.HPHOSP_ITS ---
History of Present Illness Date of Service: 06/29/23 Chief Complaint: Low hemoglobin This is a 48-year-old female with pertinent history of SERVIN cirrhosis status post TIPS, insulin-dependent diabetes mellitus, essential hypertension, mixed hyperlipidemia, AMY not on CPAP, mild intermittent asthma who presents to the emergency department for evaluation of low hemoglobin. History was obtained with the help of central communications specialist. Patient states she has been feeling tired for a week. She is also been nauseous and has had nonbloody emesis. No hematemesis, melena or hematochezia as per the patient. Blood work was done outpatient and hemoglobin was found to be 5 and patient was sent to the ER. Patient denies fever, chills, chest discomfort, palpitations, shortness of breath, changes in urinary or bowel habits. In the emergency department, repeat hemoglobin was found to be 5 and 2 unit PRBC ordered. 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 Status post abdominal paracentesis HTN (hypertension) AMY (obstructive sleep apnea) Dyslipidemia Asthma Non-toxic multinodular goiter Diabetic nephropathy associated with type 2 diabetes mellitus Elevated TSH Goiter Acromegaly Morbid obesity PCOS (polycystic ovarian syndrome) 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 Diabetes type 2, uncontrolled 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 Family History Father Unknown family medical history Mother Hx of type 1 diabetes mellitus Surgical History Previous back surgery Hx of colonoscopy Hx of endoscopy Social History Household Members: Spouse Housing: House Do you presently have visiting nurse or other home services: Yes Alcohol intake: never Patient Tobacco Use Status: Former Tobacco user Quit Date: 7 yrs ago Tobacco use type: Cigarette Smoked in Last 30 Days: No Second Hand Smoke Exposure: Yes Use of substances other than those prescribed or required for medical reasons: No Substance Use Type: Marijuana Advance Directives: No Advance Directives Information Provided: No Patient : No service: No Current occupational status: disabled 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 Meds Allergies Allergy/AdvReac Type Severity Reaction Status Date / Time ibuprofen [From MOTRIN] Allergy Intermediate RASH Verified 06/29/23 20:26 penicillin V Allergy Mild hives Verified 06/29/23 20:26 codeine Allergy Unknown Verified 06/29/23 20:26 Rx- listed on H&P Active Medications: Current Medications Sodium Chloride (Ns) 100 mls @ 100 mls/hr IV ONCE ONE Stop: 06/29/23 23:17 Home Medications Medication Instructions Recorded Confirmed Last Taken Type albuterol sulfate 90 mcg/actuation 2 puff inhalation Q6H PRN Wheezing 08/16/20 06/05/23 06/04/23 History aerosol inhaler (Ventolin HFA) blood sugar diagnostic (FreeStyle #10 ea 08/16/20 06/04/23 Unknown History Lite Strips) lancets 28 gauge (FreeStyle #100 ea 08/16/20 06/04/23 Unknown History Lancets) levothyroxine 50 mcg tablet 50 mcg PO DAILY@0600 11/04/21 06/05/23 06/04/23 History insulin glargine U-300 conc 300 75 unit subcut BEDTIME 04/30/22 06/05/23 06/03/23 History unit/mL (3 mL) subcutaneous pen (Toujeo Max U-300 SoloStar) insulin lispro 100 unit/mL 26 unit subcut TIDAC 05/31/22 06/05/23 06/04/23 History subcutaneous pen cholecalciferol (vitamin D3) 50 50 mcg PO DAILY 09/29/22 06/05/23 06/04/23 History mcg (2,000 unit) capsule (Vitamin D3) flash glucose sensor (FreeStyle #1 ea 09/29/22 06/04/23 Unknown History Brooke 2 Sensor kit) loratadine 10 mg tablet 10 mg PO DAILY PRN Allergy Symptoms 09/29/22 06/05/23 06/04/23 History spironolactone 100 mg tablet 200 mg PO DAILY 09/29/22 06/05/23 06/04/23 History pen needle, diabetic 32 gauge x #1,200 ea 01/23/23 06/04/23 Unknown History (Pentips) potassium chloride 20 mEq 20 meq PO DAILY 01/23/23 06/05/23 06/04/23 History tablet,extended release(part/cryst) torsemide 20 mg tablet 60 mg PO DAILY 01/23/23 06/05/23 06/04/23 History albuterol sulfate 2.5 mg/3 mL 2.5 mg inhalation QID PRN dyspnea 04/24/23 06/05/23 06/04/23 History (0.083 %) solution for nebulization mometasone 200 mcg/actuation HFA 1 puff inhalation BID 04/24/23 06/05/23 06/04/23 History aerosol inhaler (Asmanex HFA) dulaglutide 1.5 mg/0.5 mL 1.5 mg subcut MO 06/05/23 06/05/23 06/04/23 History subcutaneous pen injector (Trulicity) ferrous gluconate 324 mg (38 mg 324 mg PO QAM 06/05/23 06/05/23 06/04/23 History iron) tablet Physical Exam 2 Vital Signs and Narrative: Vital Signs: Last Vital Signs Temp 97.7 F 06/29/23 22:11 Pulse 85 06/29/23 22:11 Resp 18 06/29/23 22:11 BP 112/49 L 06/29/23 22:11 Pulse Ox 95 06/29/23 22:11 O2 Del Method Room Air 06/29/23 22:11 BMI result Body Mass Index 45.0 Middle-aged female lying in bed in no distress Neck supple, no JVD Regular rate and rhythm, S1-S2 heard Regular breath sounds bilaterally, no wheezing or crackles appreciated Abdomen soft nontender, no guarding, no rigidity Patient is awake, alert and oriented to self, place, time and person ; no focal motor deficit Psych: Normal mood No pedal edema Results Labs 06/29/23 20:41 06/29/23 20:41 Labs: Laboratory Results - last 24 hr 06/29/23 06/29/23 06/29/23 20:37 20:41 21:23 MCV 97.4 MCH 32.9 MCHC 33.8 RDW 19.4 H Plt Count 29 L MPV 12.2 Immature Gran % (Auto) 0.3 Neut % (Auto) 76.7 H Lymph % (Auto) 11.6 L [place] % (Auto) 8.5 Eos % (Auto) 2.1 Baso % (Auto) 0.8 Lymph # (Auto) 0.4 L [place] # (Auto) 0.3 Eos # (Auto) 0.1 Baso # (Auto) 0.0 Abs Immat Gran (auto) 0.01 Absolute Neuts (auto) 2.9 Absolute Nucleated RBC 0.000 Nucleated RBC % (auto) 0.0 PT INR Anion Gap 10 L Estim Creat Clear Calc 65.8 Estimated GFR 45 POC Glucose 195 H Random Glucose 217 H Calcium 8.6 Total Bilirubin 2.7 H AST 44 H ALT 18 Alkaline Phosphatase 89 Ammonia Total Protein 6.7 Albumin 2.7 L Stool Occult Blood POSITIVE Blood Type Antibody Screen Crossmatch 06/29/23 21:27 MCV MCH MCHC RDW Plt Count MPV Immature Gran % (Auto) Neut % (Auto) Lymph % (Auto) [place] % (Auto) Eos % (Auto) Baso % (Auto) Lymph # (Auto) [place] # (Auto) Eos # (Auto) Baso # (Auto) Abs Immat Gran (auto) Absolute Neuts (auto) Absolute Nucleated RBC Nucleated RBC % (auto) PT 17.1 H INR 1.4 H Anion Gap Estim Creat Clear Calc Estimated GFR POC Glucose Random Glucose Calcium Total Bilirubin AST ALT Alkaline Phosphatase Ammonia 94 H Total Protein Albumin Stool Occult Blood Blood Type A Positive Antibody Screen NEGATIVE Crossmatch See Detail Imaging Radiologist's Impressions: Impressions Chest X-Ray 06/29/23 21:49 IMPRESSION: 1. Right lower lobe patchy opacity likely infiltrate or atelectasis. 2. Mild cardiomegaly with mild pulmonary vascular congestion suspected. Assessment and Plan (1) Anemia: Qualifiers: Anemia type: other cause Status: Acute Plan This is a 48-year-old female with 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 #. Acute on chronic anemia: Suspected GI bleed. Will admit patient with cardiac monitoring. 2 unit PRBC ordered in the ER. Close monitoring H&H. Patient has history of cirrhosis, will initiate octreotide IV. Also initiated on IV Protonix. Consulting Gastroenterology, appreciate assistance #. Cirrhosis due to SERVIN: Hold torsemide and spironolactone in the setting of suspected GI bleed #. Elevated ammonia: Likely in the setting of GI bleed. Mentation fine at the time of admission. Lactulose given in ER. #. Chronic thrombocytopenia due to cirrhosis: Will transfuse platelets in the setting of suspected GI bleed #. Insulin-dependent diabetes mellitus with hyperglycemia: Initiating basal plus insulin regimen #. Mild intermittent asthma: No exacerbation on admission #. Obesity: Counseled regarding diet and weight loss #. Hypothyroidism: On Synthroid #. AMY: Not on CPAP Med rec pending DVT prophylaxis: Mechanical Full code Admit as inpatient and will require two night minimum hospital stay for hemodynamic monitoring, monitoring of H&H (as above), which is not possible in a lesser acute setting. Specialist consult pending Quality Stroke Does the patient have a stroke diagnosis?: No VTE Prior VTE?: No VTE Risk Level:: Medical - moderate - high VTE Device Contraindication: N/A - Device Ordered VTE Drug Contraindication: Treatment Not Indicated
[2023-06-29 22:31] LABS: Glucose, Whole Blood 182 mg/dL (60-115)
[2023-06-29] MEDS: Octreotide Acetate 100 MCG/ML AMPUL 50 MCG IVPUSH (23:00)
[2023-06-29] MEDS: Octreotide Acetate 500 MCG in 0.9 % Sodium Chloride 500 ML 50.1 MCG IVCONT (23:01)
[2023-06-29] MEDS: Insulin Glargine,Hum.rec.anlog 100 UNIT/ML 10 ML VIAL 35 UNIT SUBCUT (23:14)
[2023-06-29 23:21] VITALS: BP 108/55; PULSE 75; RESP 15; TEMP 36.5
--- NOTE | 2023-06-29 23:30 | PC.NURSE ---
blood transfusion begun, pt vss, lung sounds clear bilaterally, pt denies SOB and chest pain.
[2023-06-29 23:41] VITALS: BP 108/50; PULSE 76; RESP 15; TEMP 36.5
--- NOTE | 2023-06-29 23:42 | PC.NURSE ---
15 minutes of initial blood transfusion complete, pt vss, lung sounds clear bilaterally, pt denies SOB and chest pain.
[2023-06-30] VITALS (14 sets, daily range): BP systolic 94–129; BP diastolic 42–61; PULSE 72–93; RESP 14–20; TEMP 36.2–37.1; O2SAT 99–100
--- NOTE | 2023-06-30 00:18 | PC.NURSE ---
per , transfuse one unit of blood, infuse unit of platelets and transfuse last unit of blood.
--- NOTE | 2023-06-30 00:44 | PC.NURSE ---
Addendum entered by Deborah Aviles 06/30/23 04:30: states blood pressure above 90 systolic, okayed. Original Note: provider aware of pt BP, no new orders at this time.
[2023-06-30] MEDS: Lactulose 20 GM/30 ML SOLUTION PO ×3 (00:49→21:36)
--- NOTE | 2023-06-30 02:33 | PC.NURSE ---
initial 15 minutes of platelets began at this time, pt denies SOB, and chest pain, pt lung sounds clear bilaterally. vss.
--- NOTE | 2023-06-30 02:42 | PC.NURSE ---
pt assisted to bedside commode, pt ambulated and stood with steady gait.
--- NOTE | 2023-06-30 02:55 | PC.NURSE ---
platelet 15 minute complete, pt denies chest pain, SOB, vss. lung sounds clear bilaterally.
--- NOTE | 2023-06-30 05:52 | PC.NURSE ---
last unit of bloos initial 15 minutes began, vss, pt denies chest pain and sob, lung sounds clear bilaterally.
--- NOTE | 2023-06-30 06:47 | P.CNGI_ITS ---
History of Present Illness Data of Consult Service Date: 06/30/23 Primary Care Provider: Radha Anne MD HPI Reason for consult: anemia 48-year-old female with hx of?uncontrolled insulin-dependent diabetes type 2, HLD, HTN, liver cirrhosis secondary to SERVIN with ascites, chronic thrombocytopenia, AMY, PCOS with acromegaly, nontoxic multinodular goiter, and mild intermittent asthma who I am seeing for assessment for anemia. Patient had labs checked with acute on chronic anemia with HGB 5 g/dl. She denies melena, no rectal bleeding, hematuria, hemoptysis or bruising. She has normal stools, and no sob, chest pain, not been taking nsaids, blood thinners. Was recently admitted for similar anemia 06/05/23. She did have TIPS done 05/29/23 and apparently HGB at the time of ASS d/c was 7.1 g/dl. She was admitted with anemia 1 month prior to TIPS for anemia and had EGD w/ dieulafoy lesion with large varices with high risk albarran needing banding. Review of Systems 2 Review of Systems: Constitutional : No Weight loss, No Fever, No Chills ENT/Mouth : No sore throat, No Rhinorrhea Eyes: No Swelling, No Redness Cardiovascular : No Chest Pain, No SOB, No Edema Respiratory : No Cough, No Sputum, No Wheezing Gastrointestinal : see HPI Genitourinary : NO Dysuria, No Urinary Frequency, No Hematuria, No Urgency Musculoskeletal : + joint pain, No Myalgias, No Joint Swelling Skin : No Skin Lesions, No rash Neuro : No Weakness, No Numbness, No Dizziness, No Headache Psych : No Anxiety/Panic, No Depression Heme/Lymph: No Bruising, No Lymphadenopathy Endocrine : No Polyuria, No Polydipsia All other systems reviewed and are negative. 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 Diabetes type 2, uncontrolled 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 Family History Family History Father Unknown family medical history Mother Hx of type 1 diabetes mellitus Surgical History Surgical History Previous back surgery Hx of colonoscopy Hx of endoscopy Social History Social History Household Members: Spouse Housing: House Do you presently have visiting nurse or other home services: Yes Alcohol intake: never Patient Tobacco Use Status: Former Tobacco user Quit Date: 7 yrs ago Tobacco use type: Cigarette Second Hand Smoke Exposure: Yes Substance Use Type: Marijuana service: No Current occupational status: disabled 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 Meds Allergies Allergy/AdvReac Type Severity Reaction Status Date / Time ibuprofen [From MOTRIN] Allergy Intermediate RASH Verified 06/29/23 20:26 penicillin V Allergy Mild hives Verified 06/29/23 20:26 codeine Allergy Unknown Verified 06/29/23 20:26 Rx- listed on H&P Active Medications: Current Medications Acetaminophen (Acetaminophen 325 Mg Tablet) 650 mg PO Q6H PRN PRN Reason: Pain, Mild (Pain Scale 1-3) Acetaminophen (Acetaminophen Supp 650 Mg Supp.Rect) 650 mg DE Q6H PRN PRN Reason: Pain, Mild (Pain Scale 1-3) Dextrose (Dextrose 50 % 25 Gm/50 Ml Syringe) 25 gm IVPUSH Q15M PRN; Protocol PRN Reason: per Hypoglycemia Standing Ord. Glucose (Glucose Gel 15 Gm Gel..Gram.) 15 gm PO Q15M PRN; Protocol PRN Reason: per Hypoglycemia Standing Ord. Octreotide Acetate 500 mcg/ (Sodium Chloride) 501 mls @ 50.1 mls/hr IVCONT .Q10H [facility] Last Admin: 06/29/23 23:01 Dose: 50 mcg/hr, 50.1 mls/hr Insulin Glargine (Insulin Glargine,Hum.Rec.Anlog 100 Unit/Ml 10 Ml Vial) 35 unit SUBCUT BEDTIME [facility] Last Admin: 06/29/23 23:14 Dose: 35 unit Melatonin (Melatonin 3 Mg Tablet) 6 mg PO BEDTIME PRN PRN Reason: Insomnia Ondansetron HCl (Ondansetron Hcl 4 Mg/2 Ml Vial) 4 mg IVPUSH Q8H PRN PRN Reason: Nausea and Vomiting Pantoprazole Sodium (Pantoprazole Sodium 40 Mg/10 Ml Vial) 40 mg IVPUSH BID@0630,1630 [facility] Sodium Chloride (0.9 % Sodium Chloride Flush 3 Ml Syringe) 3 ml IVFLUSH QSHIFT [facility] Last Admin: 06/30/23 00:52 Dose: Not Given Home Medications Medication Instructions Recorded Confirmed Last Taken Type albuterol sulfate 90 mcg/actuation 2 puff inhalation Q6H PRN Wheezing 08/16/20 06/30/23 06/04/23 History aerosol inhaler (Ventolin HFA) blood sugar diagnostic (FreeStyle #10 ea 08/16/20 06/04/23 Unknown History Lite Strips) lancets 28 gauge (FreeStyle #100 ea 08/16/20 06/04/23 Unknown History Lancets) levothyroxine 50 mcg tablet 50 mcg PO DAILY@0600 11/04/21 06/30/23 06/29/23 History insulin glargine U-300 conc 300 75 unit subcut BEDTIME 04/30/22 06/30/23 06/29/23 History unit/mL (3 mL) subcutaneous pen (Toujeo Max U-300 SoloStar) insulin lispro 100 unit/mL 26 - 30 unit subcut TIDAC 05/31/22 06/30/23 06/29/23 History subcutaneous pen cholecalciferol (vitamin D3) 50 50 mcg PO DAILY 09/29/22 06/30/23 06/29/23 History mcg (2,000 unit) capsule (Vitamin D3) flash glucose sensor (FreeStyle #1 ea 09/29/22 06/04/23 Unknown History Brooke 2 Sensor kit) pen needle, diabetic 32 gauge x #1,200 ea 01/23/23 06/04/23 Unknown History (Pentips) potassium chloride 20 mEq 20 meq PO DAILY 01/23/23 06/30/23 06/29/23 History tablet,extended release(part/cryst) torsemide 20 mg tablet 60 mg PO DAILY 01/23/23 06/30/23 06/29/23 History albuterol sulfate 2.5 mg/3 mL 2.5 mg inhalation QID PRN dyspnea 04/24/23 06/30/23 06/04/23 History (0.083 %) solution for nebulization mometasone 200 mcg/actuation HFA 1 puff inhalation BID 04/24/23 06/30/23 06/29/23 History aerosol inhaler (Asmanex HFA) ferrous gluconate 324 mg (38 mg 324 mg PO QAM 06/05/23 06/30/23 06/29/23 History iron) tablet eplerenone 25 mg tablet (Inspra) 25 mg PO DAILY 06/30/23 06/30/23 06/29/23 History ondansetron 4 mg disintegrating 4 mg PO Q8H PRN Nausea And Vomiting 06/30/23 06/30/23 Unknown History tablet rifaximin 550 mg tablet (Xifaxan) 550 mg PO BID 06/30/23 06/30/23 06/29/23 History Physical Exam 2 Vital Signs: Vital Signs: Last Vital Signs Temp 98.4 F 06/30/23 06:04 Pulse 76 06/30/23 06:04 Resp 15 06/30/23 06:04 BP 94/59 L 06/30/23 06:04 Pulse Ox 100 06/30/23 00:43 O2 Del Method Room Air 06/30/23 00:43 BMI result Body Mass Index 45.0 EXAM: GENERAL: The patient is obese, midly hirsute VITAL SIGNS:see workflow HEENT: Nonicteric sclerae, PERRLA, EOMI. Oropharynx clear. Moist mucous membranes. Conjunctivae appear pale, No thyroid mass. CHEST: Chest wall is nontender. HEART: Regular rate and rhythm without murmurs. LUNGS: Clear to auscultation bilaterally. ABDOMEN: Soft, positive bowel sounds, nontender, no organomegaly.no flank tenderness SKIN: No rash, no excessive bruising, petechiae, or purpura. NEUROLOGIC: Cranial nerves II-XII intact without motor/sensory deficit. Psych: normal affect Results Labs 06/30/23 15:56 06/30/23 09:46 Labs: Short CBC 06/29/23 Range/Units 20:41 WBC 3.8 L (4.8-10.8) X10*3/uL Hgb 5.0 L* (12.0-16.0) g/dl Hct 14.8 L* (37.0-47.0) % Plt Count 29 L (160-400) X10*3/uL BMP 06/29/23 20:41 Sodium 133 L Potassium 4.1 Chloride 102 Carbon Dioxide 25 BUN 22 H Creatinine 1.28 Calcium 8.6 Liver Function 06/29/23 Range/Units 20:41 Total Bilirubin 2.7 H (0.0-1.0) mg/dL AST 44 H (5-31) U/L ALT 18 (0-31) U/L Alkaline Phosphatase 89 (39-117) U/L Albumin 2.7 L (3.5-5.0) g/dL Assessment and Plan (1) Severe anemia: Status: Acute (2) S/P TIPS (transjugular intrahepatic portosystemic shunt): Status: Acute (3) Pancytopenia: Status: Acute Plan 1/ Recurrent anemia, recent US with TIP only partially seen but appeared patent with appropriate direction of flow, ddx: hemolysis, hypersplenism, bone marrow failure, incomplete or delay in portal decompression from TIPS leading to ongoing varices and blood loss, dieulafoy PLAN: 1/ Notes from [facility] 2/ cont with PPI, can add octreotide until better assessment with EGD 3/ EGD tomorrow 4/transfuse for HGB target 9 g/dl 5/ hemolysis screen Procedures Date of Service Date of Service: 06/30/23
[2023-06-30] MEDS: 0.9 % Sodium Chloride Flush 3 ML SYRINGE IVFLUSH ×2 (07:40→17:36)
[2023-06-30] MEDS: Pantoprazole Sodium 40 MG/10 ML VIAL IVPUSH ×2 (07:40→17:29)
[2023-06-30 07:42] LABS: Glucose, Whole Blood 77 mg/dL (60-115)
--- NOTE | 2023-06-30 09:44 | MHC.CM.PN ---
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 PATIENT IS FROM HOME W/ , WHO ASSISTS W/ ALL ADL'S. PATIENT AMBULATES W/ WHEELED WALKER, USES W/C WHEN IN COMMUNITY. DAILY VNA FOR INSULIN ADMINISTRATION, PATIENT UNSURE OF AGENCY - PER PCP OFFICE [employer]. 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 PCP: JOSI JONES MD @ [facility] PT COMPLETED HCP NAMING AGENTS 1) [place] [facility] [phone], 2) MOTHER LUMA KULKARNI DP: GOAL IS HOME, RESUME SERVICES, WILL NEED SHUTTLE TRANSPORT. CM WILL CONTINUE TO FOLLOW.
--- NOTE | 2023-06-30 09:45 | PHA.MEDREC ---
Pharmacy Consult ? Medication Reconciliation Pharmacy has completed the medication reconciliation. Confirmed medications with patient (and diabetologist)Also requested medication list from [facility] pharmacy
[2023-06-30 09:52] LABS: MANUAL DIFF FLAG NO
[2023-06-30 09:59] LABS: Eosinophils Absolute Auto 0.1 X10*3/uL (0.0-0.4); Eosinophils Percent Auto 2.7 % (0-4); Imm Gran Abs Auto 0.02 X10*3/uL (0.00-0.03); Imm Gran Pct Auto 0.5 % (0.0-0.4); Lymphocytes Absolute Auto 0.5 X10*3/uL (1.2-4.9); Lymphocytes Percent Auto 11.7 % (20-40); Mean Corpuscular HGB Conc 33.7 g/dl (31.0-35.0); Mean Corpuscular Hemoglobin 31.8 pg (27.0-33.0); Mean Corpuscular Volume 94.3 fL (80.0-98.0); Mean Platelet Volume 11.9 fL (9.4-12.3); Monocytes Absolute Auto 0.4 X10*3/uL (0.1-1.2); Monocytes Percent Auto 9.2 % (2-11); Neutrophils Absolute Auto 3.1 x10*3/uL (2.0-8.3); Neutrophils Percent Auto 74.9 % (45-73); Red Blood Count 2.11 X10*6/uL (4.20-5.50); Red Cell Distribution Width 18.2 % (11.0-16.0); White Blood Count 4.1 X10*3/uL (4.8-10.8)
[2023-06-30 10:00] LABS: Platelet Count 41 X10*3/uL (160-400)
[2023-06-30 10:01] LABS: Ammonia 82 umol/L (13-55)
[2023-06-30 10:07] LABS: Anion Gap 10 (12-20); Blood Urea Nitrogen 20 mg/dL (9-16); Calcium 8.4 mg/dL (8.4-10.2); Carbon Dioxide 26 mmol/L (22-29); Chloride 103 mmol/L (96-108); Creatinine Clr Calc Pharmacy 71.3; Estimated Glomerular Filt Rate 49; Glucose Random 63 mg/dL (60-115); Potassium 4.1 mmol/L (3.3-5.1); Sodium 135 mmol/L (135-145)
[2023-06-30 10:07] LABS: Glucose, Whole Blood 62 mg/dL (60-115)
[2023-06-30 10:09] LABS: Hemoglobin 6.7 g/dl (12.0-16.0)
[2023-06-30 10:11] LABS: Hematocrit 19.9 % (37.0-47.0)
[2023-06-30] MEDS: Dextrose 50 % 25 GM/50 ML SYRINGE IVPUSH (10:23)
[2023-06-30 10:46] LABS: Glucose, Whole Blood 138 mg/dL (60-115)
[2023-06-30] MEDS: Octreotide Acetate 500 MCG in 0.9 % Sodium Chloride 500 ML 50.1 MCG IVCONT ×2 (10:53→21:34)
--- NOTE | 2023-06-30 11:06 | P.PNIM_ITS ---
Subjective Subjective Date of Service: 06/30/23 Interval History: f/u GIB anemia, elevated ammonia no active bleed, just completed transfusion, repeat Physical Exam 2 Vital Signs: Vital Signs: Last Vital Signs Temp 97.2 F 06/30/23 09:42 Pulse 72 06/30/23 09:42 Resp 16 06/30/23 09:42 BP 94/52 L 06/30/23 09:42 Pulse Ox 100 06/30/23 00:43 O2 Del Method Room Air 06/30/23 00:43 BMI result Body Mass Index 45.0 General: AO X 3, no acute distress Resp: CTA bilateral CVS: S1,S2,RRR GI: +BS, NT, mild distention no tenderenss Skin: No rash Neuro: motor grossly intact Psych: appropriate affect Objective Data Active Medications Acetaminophen (Acetaminophen 325 Mg Tablet) 650 mg PO Q6H PRN PRN Reason: Pain, Mild (Pain Scale 1-3) Acetaminophen (Acetaminophen Supp 650 Mg Supp.Rect) 650 mg [place] Q6H PRN PRN Reason: Pain, Mild (Pain Scale 1-3) Albuterol Sulfate (Albuterol Sulfate (0.083%) 2.5 Mg/3 Ml Vial.Neb) 2.5 mg INHALE QID PRN PRN Reason: dyspnea Albuterol Sulfate (Albuterol Sulfate 90 Mcg 8 Gm Inhaler) 2 puff INHALE Q6H PRN PRN Reason: Wheezing Atorvastatin Calcium (Atorvastatin Calcium 20 Mg Tablet) 20 mg PO DAILY [facility] Carvedilol (Carvedilol 3.125 Mg Tablet) 3.125 mg PO BID [facility]; Protocol Dextrose (Dextrose 50 % 25 Gm/50 Ml Syringe) 25 gm IVPUSH Q15M PRN; Protocol PRN Reason: per Hypoglycemia Standing Ord. Last Admin: 06/30/23 10:23 Dose: 25 gm Documented By: REAGAN Glucose (Glucose Gel 15 Gm Gel..Gram.) 15 gm PO Q15M PRN; Protocol PRN Reason: per Hypoglycemia Standing Ord. Octreotide Acetate 500 mcg/ (Sodium Chloride) 501 mls @ 50.1 mls/hr IVCONT .Q10H [facility] Last Admin: 06/30/23 10:53 Dose: 50 mcg/hr, 50.1 mls/hr Documented By: REAGAN Insulin Glargine (Insulin Glargine,Hum.Rec.Anlog 100 Unit/Ml 10 Ml Vial) 35 unit SUBCUT BEDTIME [facility] Last Admin: 06/29/23 23:14 Dose: 35 unit Documented By: GRACE Lactulose (Lactulose 20 Gm/30 Ml Solution) 20 gm PO BID [facility] Levothyroxine Sodium (Levothyroxine Sodium 50 Mcg Tablet) 50 mcg PO DAILY@0600 [facility] Melatonin (Melatonin 3 Mg Tablet) 6 mg PO BEDTIME PRN PRN Reason: Insomnia Non-Formulary Medication (Eplerenone [Inspra]) 25 mg PO DAILY [facility] Non-Formulary Medication (Ferrous Gluconate) 324 mg PO QAM [facility] Non-Formulary Medication (Mometasone [Asmanex Hfa]) 1 puff INHALE BID [facility] Omeprazole (Omeprazole 40 Mg Capsule.Dr) 40 mg PO DAILY@0630 [facility] Ondansetron HCl (Ondansetron Hcl 4 Mg/2 Ml Vial) 4 mg IVPUSH Q8H PRN PRN Reason: Nausea and Vomiting Pantoprazole Sodium (Pantoprazole Sodium 40 Mg/10 Ml Vial) 40 mg IVPUSH BID@0630,1630 [facility] Last Admin: 06/30/23 07:40 Dose: 40 mg Documented By: REAGAN Potassium Chloride (Potassium Chloride Er 20 Meq Tab.Er.Prt) 20 meq PO DAILY [facility] Rifaximin (Rifaximin 550 Mg Tablet) 550 mg PO BID [facility] Sodium Chloride (0.9 % Sodium Chloride Flush 3 Ml Syringe) 3 ml IVFLUSH QSHIFT [facility] Last Admin: 06/30/23 07:40 Dose: 3 ml Documented By: REAGAN Torsemide (Torsemide 20 Mg Tablet) 60 mg PO DAILY [facility]; Protocol Vitamin D (Cholecalciferol (Vitamin D3) 25 Mcg Tablet) 50 mcg PO DAILY [facility] Labs 06/30/23 09:46 06/30/23 09:46 Labs: Laboratory Results - last 24 hr 06/29/23 06/29/23 06/29/23 20:37 20:41 21:23 MCV 97.4 MCH 32.9 MCHC 33.8 RDW 19.4 H Plt Count 29 L MPV 12.2 Immature Gran % (Auto) 0.3 Neut % (Auto) 76.7 H Lymph % (Auto) 11.6 L Carbon % (Auto) 8.5 Eos % (Auto) 2.1 Baso % (Auto) 0.8 Lymph # (Auto) 0.4 L Carbon # (Auto) 0.3 Eos # (Auto) 0.1 Baso # (Auto) 0.0 Abs Immat Gran (auto) 0.01 Absolute Neuts (auto) 2.9 Absolute Nucleated RBC 0.000 Nucleated RBC % (auto) 0.0 PT INR Anion Gap 10 L Estim Creat Clear Calc 65.8 Estimated GFR 45 POC Glucose 195 H Random Glucose 217 H Calcium 8.6 Total Bilirubin 2.7 H AST 44 H ALT 18 Alkaline Phosphatase 89 Ammonia Total Protein 6.7 Albumin 2.7 L Stool Occult Blood POSITIVE Blood Type Antibody Screen Crossmatch 06/29/23 06/29/23 06/30/23 21:27 22:27 07:37 MCV MCH MCHC RDW Plt Count MPV Immature Gran % (Auto) Neut % (Auto) Lymph % (Auto) Carbon % (Auto) Eos % (Auto) Baso % (Auto) Lymph # (Auto) Carbon # (Auto) Eos # (Auto) Baso # (Auto) Abs Immat Gran (auto) Absolute Neuts (auto) Absolute Nucleated RBC Nucleated RBC % (auto) PT 17.1 H INR 1.4 H Anion Gap Estim Creat Clear Calc Estimated GFR POC Glucose 182 H 77 Random Glucose Calcium Total Bilirubin AST ALT Alkaline Phosphatase Ammonia 94 H Total Protein Albumin Stool Occult Blood Blood Type A Positive Antibody Screen NEGATIVE Crossmatch See Detail 06/30/23 06/30/23 06/30/23 09:46 10:02 10:40 MCV 94.3 MCH 31.8 MCHC 33.7 RDW 18.2 H Plt Count 41 L D MPV 11.9 Immature Gran % (Auto) 0.5 H Neut % (Auto) 74.9 H Lymph % (Auto) 11.7 L Carbon % (Auto) 9.2 Eos % (Auto) 2.7 Baso % (Auto) 1.0 Lymph # (Auto) 0.5 L Carbon # (Auto) 0.4 Eos # (Auto) 0.1 Baso # (Auto) 0.0 Abs Immat Gran (auto) 0.02 Absolute Neuts (auto) 3.1 Absolute Nucleated RBC 0.000 Nucleated RBC % (auto) 0.0 PT INR Anion Gap 10 L Estim Creat Clear Calc 71.3 Estimated GFR 49 POC Glucose 62 138 H Random Glucose 63 Calcium 8.4 Total Bilirubin AST ALT Alkaline Phosphatase Ammonia 82 H Total Protein Albumin Stool Occult Blood Blood Type Antibody Screen Crossmatch Assessment and Plan (1) GIB (gastrointestinal bleeding): Status: Acute (2) Hepatic encephalopathy: Status: Acute (3) 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 Acute on chronic anemia, likely from UGIB, DDx: varices, PUD, gastritis/esophagitis -Transfuse 2 units of RBC and repeat H/H -IV PPI -IV Octreotitde -Seen by GI and plan for EGD tomorrow Cirrhosis due to SERVIN, continue Rifaximim, lactulose, Torsemide and Aldactone if BP ok Elevated ammonia: Likely in the setting of GI bleed. Mentation fine at the time of admission - continue Lactulose and Rifaximim Chronic thrombocytopenia due to cirrhosis: Will transfuse platelets in the setting of suspected GI bleed plat of 41, hold further transfusion Insulin-dependent diabetes mellitus with hyperglycemia, episodes of hypoglycemia this morning. -Sliding scale, Lantus at reduced dose Mild intermittent asthma: No exacerbation on admission, inhalers PRB Obesity: Counseled regarding diet and weight loss Hypothyroidism: On Synthroid AMY: Not on CPAP DVT prophylaxis: Mechanical Full code need for inpt: Acute gib, acute blood loss anemia, needing transfusion and needs EGD Quality Stroke Does the patient have a stroke diagnosis?: No VTE Prior VTE?: No VTE Risk Level:: Medical - moderate - high VTE Device Contraindication: N/A - Device Ordered VTE Drug Contraindication: Treatment Not Indicated
--- NOTE | 2023-06-30 11:45 | PC.NURSE ---
1002- POC of 62 and asymptomatic. Patient NPO- given IV dextrose. See MAR for documentation details. POC re-checked at 1040 with improvement to 138. Dr. Harris notified. Diet changed to clear liquids. Patient given juice and jello, tolerating well.
[2023-06-30] MEDS: Ferrous Sulfate 324 MG TABLET.DR PO (12:29)
[2023-06-30] MEDS: Omeprazole 40 MG CAPSULE.DR PO (12:29)
[2023-06-30] MEDS: Levothyroxine Sodium 50 MCG TABLET PO (12:29)
[2023-06-30] MEDS: Potassium Chloride ER 20 MEQ TAB.ER.PRT PO (12:29)
[2023-06-30] MEDS: Torsemide 20 MG TABLET 60 MG PO (12:30)
[2023-06-30] MEDS: rifAXIMin 550 MG TABLET PO ×2 (12:30→21:36)
[2023-06-30 12:35] LABS: Glucose, Whole Blood 162 mg/dL (60-115)
--- NOTE | 2023-06-30 14:08 | MHC.CLN ---
RE: CONSULT REPORTED UNKNOWN RECENT WT LOSS PREVIOUS WT HX REVEALS: 115.3KG (06/29/23) 97.5KG (11/17/22) PT WITH 18% SIGNIFICANT GAIN X 6 MONTHS 123.1KG (07/04/22) PT WITH 6% NONSIGNIFICANT WT LOSS X 1 YEAR NO SIGNIFICANT WT LOSS NOTED AND PT REMAINS OBESE FOR HT NO NEW ORDERS CONTINUE CURRENT CARE PLAN
[2023-06-30 16:13] LABS: Glucose, Whole Blood 241 mg/dL (60-115)
[2023-06-30 16:17] LABS: Mean Corpuscular HGB Conc 33.7 g/dl (31.0-35.0); Mean Corpuscular Hemoglobin 32.4 pg (27.0-33.0); PLT CLUMP 1; Red Blood Count 1.73 X10*6/uL (4.20-5.50); Red Cell Distribution Width 18.5 % (11.0-16.0)
[2023-06-30 16:19] LABS: Mean Platelet Volume 11.8 fL (9.4-12.3)
[2023-06-30 16:36] LABS: White Blood Count 3.3 X10*3/uL (4.8-10.8)
[2023-06-30 16:37] LABS: Hematocrit 16.6 % (37.0-47.0); Hemoglobin 5.6 g/dl (12.0-16.0); Platelet Count 29 X10*3/uL (160-400)
[2023-06-30 20:08] LABS: Glucose, Whole Blood 307 mg/dL (60-115)
[2023-06-30] MEDS: carvediloL 3.125 MG TABLET PO (21:36)
[2023-06-30] MEDS: Insulin Glargine,Hum.rec.anlog 100 UNIT/ML 10 ML VIAL 35 UNIT SUBCUT (21:36)
[2023-06-30] MEDS: Insulin Lispro 100 UNIT/ML 3 ML VIAL SUBCUT (21:37)
[2023-07-01] VITALS (22 sets, daily range): BP systolic 53–126; BP diastolic 19–71; PULSE 67–86; RESP 14–22; TEMP 36.1–37.1; O2SAT 95–100
[2023-07-01] MEDS: 0.9 % Sodium Chloride Flush 3 ML SYRINGE IVFLUSH ×3 (00:04→16:28)
[2023-07-01] MEDS: Pantoprazole Sodium 40 MG/10 ML VIAL IVPUSH ×2 (05:46→16:28)
[2023-07-01] MEDS: Omeprazole 40 MG CAPSULE.DR PO (05:46)
[2023-07-01] MEDS: Levothyroxine Sodium 50 MCG TABLET PO (05:46)
[2023-07-01 05:51] LABS: Hemoglobin 7.9 g/dl (12.0-16.0); Mean Corpuscular HGB Conc 34.3 g/dl (31.0-35.0); Mean Corpuscular Hemoglobin 32.1 pg (27.0-33.0); Mean Corpuscular Volume 93.5 fL (80.0-98.0); Mean Platelet Volume 11.5 fL (9.4-12.3); Red Blood Count 2.46 X10*6/uL (4.20-5.50); Red Cell Distribution Width 16.9 % (11.0-16.0); White Blood Count 5.4 X10*3/uL (4.8-10.8)
[2023-07-01 05:52] LABS: Platelet Count 37 X10*3/uL (160-400)
--- NOTE | 2023-07-01 06:32 | PC.NURSE ---
blood transfusion as ordered initiated at 0215 per protocol. Patient alert, awake, and agreeable. vitals to start 97.5-63-92-1075/51, lung white clear. This insurance writer remained in room times 15 minutes, no status changes, pt awake, lungs clear, vitals 98.2-85-18-108/56. infusion and NS flush without complication to #20 angio left forearm, vitals upon completion 98.2-81-18-106/53 97% room air thru out, lungs clear, no s/sx adverse reaction. completion time to TAR defaulted to 0557 despite completion time 0550. Cleared with nursing supervisory aide that Octreotide infusion to right arm site #22 Angio okay to keep during blood transfusion to left arm. Consent in chart and Sinus Rhythm on tele monitoring thru out. will cont to monitor
[2023-07-01] MEDS: Octreotide Acetate 500 MCG in 0.9 % Sodium Chloride 500 ML 50.1 MCG IVCONT ×2 (07:03→17:40)
[2023-07-01 07:22] LABS: Glucose, Whole Blood 116 mg/dL (60-115)
[2023-07-01] MEDS: rifAXIMin 550 MG TABLET PO ×2 (09:23→20:16)
[2023-07-01] MEDS: Atorvastatin Calcium 20 MG TABLET PO (09:23)
[2023-07-01] MEDS: carvediloL 3.125 MG TABLET PO ×2 (09:24→20:16)
[2023-07-01] MEDS: Ferrous Sulfate 324 MG TABLET.DR PO (09:24)
--- NOTE | 2023-07-01 09:26 | HO.PM.IMPN ---
Subjective Subjective Date of Service: 07/02/23 Interval History: f/u GIB anemia, elevated ammonia no active bleed, H/H remains low despite multiple transfuseion for EGD today Physical Exam Vital Signs: Vital Signs: Last Vital Signs Temp 97.2 F 07/01/23 07:28 Pulse 78 07/01/23 08:06 Resp 16 07/01/23 08:06 BP 122/62 07/01/23 07:28 Pulse Ox 98 07/01/23 07:28 O2 Del Method Room Air 07/01/23 07:28 O2 Flow Rate 95 06/30/23 19:37 BMI result Body Mass Index 45.0 General: AO X 3, no acute distress Resp: CTA bilateral CVS: S1,S2,RRR GI: +BS, NT, distention Skin: No rash Neuro: motor grossly intact Psych: appropriate affect Objective Data Active Medications Acetaminophen (Acetaminophen 325 Mg Tablet) 650 mg PO Q6H PRN PRN Reason: Pain, Mild (Pain Scale 1-3) Albuterol Sulfate (Albuterol Sulfate (0.083%) 2.5 Mg/3 Ml Vial.Neb) 2.5 mg INHALE QID PRN PRN Reason: dyspnea Albuterol Sulfate (Albuterol Sulfate 90 Mcg 8 Gm Inhaler) 2 puff INHALE RQ6H PRN PRN Reason: Wheezing Atorvastatin Calcium (Atorvastatin Calcium 20 Mg Tablet) 20 mg PO DAILY [facility] Last Admin: 07/01/23 09:23 Dose: 20 mg Documented By: MAGALY Carvedilol (Carvedilol 3.125 Mg Tablet) 3.125 mg PO BID [facility]; Protocol Last Admin: 07/01/23 09:24 Dose: 3.125 mg Documented By: MAGALY Dextrose (Dextrose 50 % 25 Gm/50 Ml Syringe) 25 gm IVPUSH Q15M PRN; Protocol PRN Reason: per Hypoglycemia Standing Ord. Last Admin: 06/30/23 10:23 Dose: 25 gm Documented By: REAGAN Ferrous Sulfate (Ferrous Sulfate 324 Mg Tablet.) 324 mg PO DAILY [facility] Last Admin: 07/01/23 09:24 Dose: 324 mg Documented By: MAGALY Glucose (Glucose Gel 15 Gm Gel..Gram.) 15 gm PO Q15M PRN; Protocol PRN Reason: per Hypoglycemia Standing Ord. Octreotide Acetate 500 mcg/ (Sodium Chloride) 501 mls @ 50.1 mls/hr IVCONT .Q10H [facility] Last Admin: 07/01/23 07:03 Dose: 50 mcg/hr, 50.1 mls/hr Documented By: FERNANDA Insulin Glargine (Insulin Glargine,Hum.Rec.Anlog 100 Unit/Ml 10 Ml Vial) 35 unit SUBCUT BEDTIME [facility] Last Admin: 06/30/23 21:36 Dose: 35 unit Documented By: REAGAN Insulin Human Lispro (Insulin Lispro 100 Unit/Ml 3 Ml Vial) 0 unit SUBCUT QIDACHS [facility]; Protocol Last Admin: 07/01/23 07:47 Dose: Not Given Documented By: MAGALY Non-Admin Reason: No Insulin Coverage Lactulose (Lactulose 20 Gm/30 Ml Solution) 20 gm PO BID [facility] Last Admin: 07/01/23 09:26 Dose: Not Given Documented By: MAGALY Non-Admin Reason: NPO Levothyroxine Sodium (Levothyroxine Sodium 50 Mcg Tablet) 50 mcg PO DAILY@0600 [facility] Last Admin: 07/01/23 05:46 Dose: 50 mcg Documented By: FERNANDA Melatonin (Melatonin 3 Mg Tablet) 6 mg PO BEDTIME PRN PRN Reason: Insomnia Pt Own (Eplerenone [ Inspra] 25 Mg Tablet ) 25 mg PO DAILY [facility] Pt Own (Mometasone [ Asmanex Hfa] 200 Mcg /Actuation Hfa Aerosol Inhaler) 1 puff INHALE RBID [facility] Last Admin: 07/01/23 08:04 Dose: 1 puff Documented By: FRANCY Omeprazole (Omeprazole 40 Mg Capsule.Dr) 40 mg PO DAILY@0630 [facility] Last Admin: 07/01/23 05:46 Dose: 40 mg Documented By: FERNANDA Ondansetron HCl (Ondansetron Hcl 4 Mg/2 Ml Vial) 4 mg IVPUSH Q8H PRN PRN Reason: Nausea and Vomiting Pantoprazole Sodium (Pantoprazole Sodium 40 Mg/10 Ml Vial) 40 mg IVPUSH BID@0630,1630 [facility] Last Admin: 07/01/23 05:46 Dose: 40 mg Documented By: FERNANDA Potassium Chloride (Potassium Chloride Er 20 Meq Tab.Er.Prt) 20 meq PO DAILY [facility] Last Admin: 07/01/23 09:26 Dose: Not Given Documented By: MAGALY Non-Admin Reason: NPO Rifaximin (Rifaximin 550 Mg Tablet) 550 mg PO BID [facility] Last Admin: 07/01/23 09:23 Dose: 550 mg Documented By: MAGALY Sodium Chloride (0.9 % Sodium Chloride Flush 3 Ml Syringe) 3 ml IVFLUSH QSHIFT [facility] Last Admin: 07/01/23 09:24 Dose: 3 ml Documented By: MAGALY Torsemide (Torsemide 20 Mg Tablet) 60 mg PO DAILY [facility]; Protocol Last Admin: 07/01/23 09:26 Dose: Not Given Documented By: MAGALY Non-Admin Reason: NPO Vitamin D (Cholecalciferol (Vitamin D3) 25 Mcg Tablet) 50 mcg PO DAILY [facility] Last Admin: 07/01/23 09:25 Dose: Not Given Documented By: MAGALY Non-Admin Reason: NPO Labs 07/02/23 05:57 06/30/23 09:46 Labs: Laboratory Results - last 24 hr 06/29/23 06/30/23 06/30/23 21:27 09:46 10:02 MCV 94.3 MCH 31.8 MCHC 33.7 RDW 18.2 H Plt Count 41 L D MPV 11.9 Immature Gran % (Auto) 0.5 H Neut % (Auto) 74.9 H Lymph % (Auto) 11.7 L Mora % (Auto) 9.2 Eos % (Auto) 2.7 Baso % (Auto) 1.0 Lymph # (Auto) 0.5 L Mora # (Auto) 0.4 Eos # (Auto) 0.1 Baso # (Auto) 0.0 Abs Immat Gran (auto) 0.02 Absolute Neuts (auto) 3.1 Absolute Nucleated RBC 0.000 Nucleated RBC % (auto) 0.0 Anion Gap 10 L Estim Creat Clear Calc 71.3 Estimated GFR 49 POC Glucose 62 Random Glucose 63 Calcium 8.4 Ammonia 82 H Blood Type A Positive Antibody Screen NEGATIVE Crossmatch See Detail 06/30/23 06/30/23 06/30/23 10:40 12:29 15:56 MCV 96.0 MCH 32.4 MCHC 33.7 RDW 18.5 H Plt Count 29 L D MPV 11.8 Immature Gran % (Auto) Neut % (Auto) Lymph % (Auto) Mora % (Auto) Eos % (Auto) Baso % (Auto) Lymph # (Auto) Mora # (Auto) Eos # (Auto) Baso # (Auto) Abs Immat Gran (auto) Absolute Neuts (auto) Absolute Nucleated RBC 0.000 Nucleated RBC % (auto) 0.0 Anion Gap Estim Creat Clear Calc Estimated GFR POC Glucose 138 H 162 H Random Glucose Calcium Ammonia Blood Type Antibody Screen Crossmatch 06/30/23 06/30/23 07/01/23 16:08 19:40 05:16 MCV 93.5 MCH 32.1 MCHC 34.3 RDW 16.9 H Plt Count 37 L D MPV 11.5 Immature Gran % (Auto) Neut % (Auto) Lymph % (Auto) Mora % (Auto) Eos % (Auto) Baso % (Auto) Lymph # (Auto) Mora # (Auto) Eos # (Auto) Baso # (Auto) Abs Immat Gran (auto) Absolute Neuts (auto) Absolute Nucleated RBC 0.000 Nucleated RBC % (auto) 0.0 Anion Gap Estim Creat Clear Calc Estimated GFR POC Glucose 241 H 307 H Random Glucose Calcium Ammonia Blood Type Antibody Screen Crossmatch 07/01/23 07:17 MCV MCH MCHC RDW Plt Count MPV Immature Gran % (Auto) Neut % (Auto) Lymph % (Auto) Mora % (Auto) Eos % (Auto) Baso % (Auto) Lymph # (Auto) Mora # (Auto) Eos # (Auto) Baso # (Auto) Abs Immat Gran (auto) Absolute Neuts (auto) Absolute Nucleated RBC Nucleated RBC % (auto) Anion Gap Estim Creat Clear Calc Estimated GFR POC Glucose 116 H Random Glucose Calcium Ammonia Blood Type Antibody Screen Crossmatch Assessment and Plan (1) GIB (gastrointestinal bleeding): Status: Acute (2) Hepatic encephalopathy: Status: Acute (3) 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 Acute on chronic anemia, likely from UGIB, DDx: varices, PUD, gastritis/esophagitis -Transfused 4 units of RBC so far, H/H is still low, but will transfuse if Hgb <7.9 -IV PPI -IV Octreotitde -Seen by GI and plan for EGD today Cirrhosis due to SERVIN, continue Rifaximim, lactulose, Torsemide and Aldactone if BP ok Elevated ammonia without encephalopathy, Likely in the setting of GI bleed. - continue Lactulose and Rifaximim Chronic thrombocytopenia due to cirrhosis: Plat 37, hold transfusion Insulin-dependent diabetes mellitus, sugar control.. monitor while NPO, continue insulin Mild intermittent asthma: No exacerbation on admission, inhalers PRB Obesity: Counseled regarding diet and weight loss Hypothyroidism: On Synthroid AMY: Not on CPAP DVT prophylaxis: Mechanical Full code need for inpt: Acute gib, acute blood loss anemia, needing transfusion and needs EGD Quality Stroke Does the patient have a stroke diagnosis?: No VTE Prior VTE?: No VTE Risk Level:: Medical - moderate - high VTE Device Contraindication: N/A - Device Ordered VTE Drug Contraindication: Treatment Not Indicated
[2023-07-01 11:23] LABS: Glucose, Whole Blood 117 mg/dL (60-115)
--- NOTE | 2023-07-01 13:32 | MHC.SHP ---
Pre-Procedural Eval Section A - 24 Hr Update-Section A only Date of Service: 07/01/23 The patient is an INPATIENT: Yes The patient has been examined within 24 hours of the surgical procedure. The History & Physical has been completed within 30 days and I have reviewed it.: Yes Section B - Complete if H&P > 30 days Chief Complaint: Low Hemoglobin Allergies: Allergies Allergy/AdvReac Type Severity Reaction Status Date / Time ibuprofen [From MOTRIN] Allergy Intermediate RASH Verified 06/29/23 20:26 penicillin V Allergy Mild hives Verified 06/29/23 20:26 codeine Allergy Unknown Verified 06/29/23 20:26 Rx- listed on H&P Plan I have reviewed the history and physical and performed a pertinent physical examination on my patient. No changes have occurred unless specified. Time Spent With Patient Time: Total time managing care of this patient today ____ minutes.
--- NOTE | 2023-07-01 13:33 | P.CONAN_ITS ---
HPI - Anesthesia Eval Consult details Narrative: for EGD bec of profound anemia. Had EGD in April bec of variceal bleed. Intubated for that procedure. Had TIPPS few wks ago at [facility]. 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 (Acute) Severe anemia (Acute) Anemia (Acute) S/P TIPS (transjugular intrahepatic portosystemic shunt) (Acute) Normocytic anemia (Acute) Thrombocytopenia (Chronic) Hypomagnesemia (Acute) Acute respiratory failure with hypoxia (Acute) ARDS (adult respiratory distress syndrome) (Acute) Hypoxia (Acute) MSSA bacteremia (Acute) Hypotension (Acute) Acute on chronic kidney failure (Acute) 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 (Acute) Hyponatremia (Acute) Positive blood culture (Acute) Coagulopathy (Acute) Thrombocytopenia (Acute) Pneumonia (Acute) Acute hyponatremia (Acute) Ascites (Acute) Numbness and tingling in both hands (Acute) AMY (obstructive sleep apnea) (Acute) Non-toxic multinodular goiter (Acute) Diabetic nephropathy associated with type 2 diabetes mellitus (Acute) Elevated TSH (Acute) Goiter (Acute) Acromegaly (Acute) Morbid obesity (Acute) PCOS (polycystic ovarian syndrome) (Acute) halfway (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 insulin (Acute) Diabetes type 2, uncontrolled (Acute) Past Medical History Medical History S/P abdominal paracentesis 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 Status post abdominal paracentesis HTN (hypertension) AMY (obstructive sleep apnea) Dyslipidemia Asthma Non-toxic multinodular goiter Diabetic nephropathy associated with type 2 diabetes mellitus Elevated TSH Goiter Acromegaly Morbid obesity 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 Diabetes type 2, uncontrolled 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 Patient : No Family History Family History Father Unknown family medical history Mother Hx of type 1 diabetes mellitus Family history of problems with anesthesia: No Surgical History Surgical History Previous back surgery Hx of colonoscopy Hx of endoscopy History of Problems with Anesthesia: No Social History Social History Household Members: Spouse Housing: House Do you presently have visiting nurse or other home services: Yes Alcohol intake: never Patient Tobacco Use Status: Former Tobacco user Quit Date: 7 yrs ago Tobacco use type: Cigarette Second Hand Smoke Exposure: Yes Substance Use Type: Marijuana service: No Current occupational status: disabled 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 Meds Allergies Allergy/AdvReac Type Severity Reaction Status Date / Time ibuprofen [From MOTRIN] Allergy Intermediate RASH Verified 06/29/23 20:26 penicillin V Allergy Mild hives Verified 06/29/23 20:26 codeine Allergy Unknown Verified 06/29/23 20:26 Rx- listed on H&P Active Medications: Current Medications Acetaminophen (Acetaminophen 325 Mg Tablet) 650 mg PO Q6H PRN PRN Reason: Pain, Mild (Pain Scale 1-3) Albuterol Sulfate (Albuterol Sulfate (0.083%) 2.5 Mg/3 Ml Vial.Neb) 2.5 mg INHALE QID PRN PRN Reason: dyspnea Albuterol Sulfate (Albuterol Sulfate 90 Mcg 8 Gm Inhaler) 2 puff INHALE RQ6H PRN PRN Reason: Wheezing Atorvastatin Calcium (Atorvastatin Calcium 20 Mg Tablet) 20 mg PO DAILY [facility] Last Admin: 07/01/23 09:23 Dose: 20 mg Carvedilol (Carvedilol 3.125 Mg Tablet) 3.125 mg PO BID [facility]; Protocol Last Admin: 07/01/23 09:24 Dose: 3.125 mg Dextrose (Dextrose 50 % 25 Gm/50 Ml Syringe) 25 gm IVPUSH Q15M PRN; Protocol PRN Reason: per Hypoglycemia Standing Ord. Last Admin: 06/30/23 10:23 Dose: 25 gm Ferrous Sulfate (Ferrous Sulfate 324 Mg Tablet.Dr) 324 mg PO DAILY [facility] Last Admin: 07/01/23 09:24 Dose: 324 mg Glucose (Glucose Gel 15 Gm Gel..Gram.) 15 gm PO Q15M PRN; Protocol PRN Reason: per Hypoglycemia Standing Ord. Octreotide Acetate 500 mcg/ (Sodium Chloride) 501 mls @ 50.1 mls/hr IVCONT .Q10H [facility] Last Admin: 07/01/23 07:03 Dose: 50 mcg/hr, 50.1 mls/hr Insulin Glargine (Insulin Glargine,Hum.Rec.Anlog 100 Unit/Ml 10 Ml Vial) 35 unit SUBCUT BEDTIME [facility] Last Admin: 06/30/23 21:36 Dose: 35 unit Insulin Human Lispro (Insulin Lispro 100 Unit/Ml 3 Ml Vial) 0 unit SUBCUT QIDACHS [facility]; Protocol Last Admin: 07/01/23 11:52 Dose: Not Given Lactulose (Lactulose 20 Gm/30 Ml Solution) 20 gm PO BID [facility] Last Admin: 07/01/23 09:26 Dose: Not Given Levothyroxine Sodium (Levothyroxine Sodium 50 Mcg Tablet) 50 mcg PO DAILY@0600 [facility] Last Admin: 07/01/23 05:46 Dose: 50 mcg Melatonin (Melatonin 3 Mg Tablet) 6 mg PO BEDTIME PRN PRN Reason: Insomnia Pt Own (Eplerenone [ Inspra] 25 Mg Tablet ) 25 mg PO DAILY [facility] Last Admin: 07/01/23 10:24 Dose: 25 mg Pt Own (Mometasone [ Asmanex Hfa] 200 Mcg /Actuation Hfa Aerosol Inhaler) 1 puff INHALE RBID [facility] Last Admin: 07/01/23 08:04 Dose: 1 puff Ondansetron HCl (Ondansetron Hcl 4 Mg/2 Ml Vial) 4 mg IVPUSH Q8H PRN PRN Reason: Nausea and Vomiting Pantoprazole Sodium (Pantoprazole Sodium 40 Mg/10 Ml Vial) 40 mg IVPUSH BID@0630,1630 [facility] Last Admin: 07/01/23 05:46 Dose: 40 mg Potassium Chloride (Potassium Chloride Er 20 Meq Tab.Er.Prt) 20 meq PO DAILY [facility] Last Admin: 07/01/23 09:26 Dose: Not Given Rifaximin (Rifaximin 550 Mg Tablet) 550 mg PO BID [facility] Last Admin: 07/01/23 09:23 Dose: 550 mg Sodium Chloride (0.9 % Sodium Chloride Flush 3 Ml Syringe) 3 ml IVFLUSH QSHIFT [facility] Last Admin: 07/01/23 09:24 Dose: 3 ml Torsemide (Torsemide 20 Mg Tablet) 60 mg PO DAILY [facility]; Protocol Last Admin: 07/01/23 09:26 Dose: Not Given Vitamin D (Cholecalciferol (Vitamin D3) 25 Mcg Tablet) 50 mcg PO DAILY [facility] Last Admin: 07/01/23 09:25 Dose: Not Given Home Medications Medication Instructions Recorded Confirmed Last Taken Type albuterol sulfate 90 mcg/actuation 2 puff inhalation Q6H PRN Wheezing 08/16/20 06/30/23 06/04/23 History aerosol inhaler (Ventolin HFA) blood sugar diagnostic (FreeStyle #10 ea 08/16/20 06/04/23 Unknown History Lite Strips) lancets 28 gauge (FreeStyle #100 ea 08/16/20 06/04/23 Unknown History Lancets) levothyroxine 50 mcg tablet 50 mcg PO DAILY@0600 11/04/21 06/30/23 06/29/23 History insulin glargine U-300 conc 300 75 unit subcut BEDTIME 04/30/22 06/30/23 06/29/23 History unit/mL (3 mL) subcutaneous pen (Toujeo Max U-300 SoloStar) insulin lispro 100 unit/mL 26 - 30 unit subcut TIDAC 05/31/22 06/30/23 06/29/23 History subcutaneous pen cholecalciferol (vitamin D3) 50 50 mcg PO DAILY 09/29/22 06/30/23 06/29/23 History mcg (2,000 unit) capsule (Vitamin D3) flash glucose sensor (FreeStyle #1 ea 09/29/22 06/04/23 Unknown History Brooke 2 Sensor kit) pen needle, diabetic 32 gauge x #1,200 ea 01/23/23 06/04/23 Unknown History (Pentips) potassium chloride 20 mEq 20 meq PO DAILY 01/23/23 06/30/23 06/29/23 History tablet,extended release(part/cryst) torsemide 20 mg tablet 60 mg PO DAILY 01/23/23 06/30/23 06/29/23 History albuterol sulfate 2.5 mg/3 mL 2.5 mg inhalation QID PRN dyspnea 04/24/23 06/30/23 06/04/23 History (0.083 %) solution for nebulization mometasone 200 mcg/actuation HFA 1 puff inhalation BID 04/24/23 06/30/23 06/29/23 History aerosol inhaler (Asmanex HFA) ferrous gluconate 324 mg (38 mg 324 mg PO QAM 06/05/23 06/30/23 06/29/23 History iron) tablet eplerenone 25 mg tablet (Inspra) 25 mg PO DAILY 06/30/23 06/30/23 06/29/23 History ondansetron 4 mg disintegrating 4 mg PO Q8H PRN Nausea And Vomiting 06/30/23 06/30/23 Unknown History tablet rifaximin 550 mg tablet (Xifaxan) 550 mg PO BID 06/30/23 06/30/23 06/29/23 History Exam Height,Weight and Vital Signs: Height 5 ft 3 in Weight 115.3 kg Last Vital Signs Temp 97.2 F 07/01/23 11:49 Pulse 68 07/01/23 11:49 Resp 17 07/01/23 11:49 BP 113/71 07/01/23 11:49 Pulse Ox 96 07/01/23 11:49 O2 Del Method Room Air 07/01/23 11:49 O2 Flow Rate 95 06/30/23 19:37 Pertinent Lab Results Pertinent Lab Results: Laboratory Tests 06/29/23 06/29/23 06/29/23 20:37 20:41 21:23 WBC 3.8 L RBC 1.52 L Hgb 5.0 L* Hct 14.8 L* MCV 97.4 MCH 32.9 MCHC 33.8 RDW 19.4 H Plt Count 29 L MPV 12.2 Immature Gran % (Auto) 0.3 Neut % (Auto) 76.7 H Lymph % (Auto) 11.6 L Moca % (Auto) 8.5 Eos % (Auto) 2.1 Baso % (Auto) 0.8 Lymph # (Auto) 0.4 L Moca # (Auto) 0.3 Eos # (Auto) 0.1 Baso # (Auto) 0.0 Abs Immat Gran (auto) 0.01 Absolute Neuts (auto) 2.9 Absolute Nucleated RBC 0.000 Nucleated RBC % (auto) 0.0 PT INR Sodium 133 L Potassium 4.1 Chloride 102 Carbon Dioxide 25 Anion Gap 10 L BUN 22 H Creatinine 1.28 Estim Creat Clear Calc 65.8 Estimated GFR 45 POC Glucose 195 H Random Glucose 217 H Calcium 8.6 Total Bilirubin 2.7 H AST 44 H ALT 18 Alkaline Phosphatase 89 Ammonia Total Protein 6.7 Albumin 2.7 L Stool Occult Blood POSITIVE Blood Type Antibody Screen Crossmatch 06/29/23 06/29/23 06/30/23 21:27 22:27 07:37 WBC RBC Hgb Hct MCV MCH MCHC RDW Plt Count MPV Immature Gran % (Auto) Neut % (Auto) Lymph % (Auto) Moca % (Auto) Eos % (Auto) Baso % (Auto) Lymph # (Auto) Moca # (Auto) Eos # (Auto) Baso # (Auto) Abs Immat Gran (auto) Absolute Neuts (auto) Absolute Nucleated RBC Nucleated RBC % (auto) PT 17.1 H INR 1.4 H Sodium Potassium Chloride Carbon Dioxide Anion Gap BUN Creatinine Estim Creat Clear Calc Estimated GFR POC Glucose 182 H 77 Random Glucose Calcium Total Bilirubin AST ALT Alkaline Phosphatase Ammonia 94 H Total Protein Albumin Stool Occult Blood Blood Type A Positive Antibody Screen NEGATIVE Crossmatch See Detail 06/30/23 06/30/23 06/30/23 09:46 10:02 10:40 WBC 4.1 L RBC 2.11 L D Hgb 6.7 L* D Hct 19.9 L* D MCV 94.3 MCH 31.8 MCHC 33.7 RDW 18.2 H Plt Count 41 L D MPV 11.9 Immature Gran % (Auto) 0.5 H Neut % (Auto) 74.9 H Lymph % (Auto) 11.7 L Moca % (Auto) 9.2 Eos % (Auto) 2.7 Baso % (Auto) 1.0 Lymph # (Auto) 0.5 L Moca # (Auto) 0.4 Eos # (Auto) 0.1 Baso # (Auto) 0.0 Abs Immat Gran (auto) 0.02 Absolute Neuts (auto) 3.1 Absolute Nucleated RBC 0.000 Nucleated RBC % (auto) 0.0 PT INR Sodium 135 Potassium 4.1 Chloride 103 Carbon Dioxide 26 Anion Gap 10 L BUN 20 H Creatinine 1.18 Estim Creat Clear Calc 71.3 Estimated GFR 49 POC Glucose 62 138 H Random Glucose 63 Calcium 8.4 Total Bilirubin AST ALT Alkaline Phosphatase Ammonia 82 H Total Protein Albumin Stool Occult Blood Blood Type Antibody Screen Crossmatch 06/30/23 06/30/23 06/30/23 12:29 15:56 16:08 WBC 3.3 L RBC 1.73 L Hgb 5.6 L* Hct 16.6 L* MCV 96.0 MCH 32.4 MCHC 33.7 RDW 18.5 H Plt Count 29 L D MPV 11.8 Immature Gran % (Auto) Neut % (Auto) Lymph % (Auto) Moca % (Auto) Eos % (Auto) Baso % (Auto) Lymph # (Auto) Moca # (Auto) Eos # (Auto) Baso # (Auto) Abs Immat Gran (auto) Absolute Neuts (auto) Absolute Nucleated RBC 0.000 Nucleated RBC % (auto) 0.0 PT INR Sodium Potassium Chloride Carbon Dioxide Anion Gap BUN Creatinine Estim Creat Clear Calc Estimated GFR POC Glucose 162 H 241 H Random Glucose Calcium Total Bilirubin AST ALT Alkaline Phosphatase Ammonia Total Protein Albumin Stool Occult Blood Blood Type Antibody Screen Crossmatch 06/30/23 07/01/23 07/01/23 19:40 05:16 07:17 WBC 5.4 RBC 2.46 L D Hgb 7.9 L D Hct 23.0 L D MCV 93.5 MCH 32.1 MCHC 34.3 RDW 16.9 H Plt Count 37 L D MPV 11.5 Immature Gran % (Auto) Neut % (Auto) Lymph % (Auto) Moca % (Auto) Eos % (Auto) Baso % (Auto) Lymph # (Auto) Moca # (Auto) Eos # (Auto) Baso # (Auto) Abs Immat Gran (auto) Absolute Neuts (auto) k Absolute Nucleated RBC 0.000 Nucleated RBC % (auto) 0.0 PT INR Sodium Potassium Chloride Carbon Dioxide Anion Gap BUN Creatinine Estim Creat Clear Calc Estimated GFR POC Glucose 307 H 116 H Random Glucose Calcium Total Bilirubin AST ALT Alkaline Phosphatase Ammonia Total Protein Albumin Stool Occult Blood Blood Type Antibody Screen Crossmatch 07/01/23 11:19 WBC RBC Hgb Hct MCV MCH MCHC RDW Plt Count MPV Immature Gran % (Auto) Neut % (Auto) Lymph % (Auto) Moca % (Auto) Eos % (Auto) Baso % (Auto) Lymph # (Auto) Moca # (Auto) Eos # (Auto) Baso # (Auto) Abs Immat Gran (auto) Absolute Neuts (auto) Absolute Nucleated RBC Nucleated RBC % (auto) PT INR Sodium Potassium Chloride Carbon Dioxide Anion Gap BUN Creatinine Estim Creat Clear Calc Estimated GFR POC Glucose 117 H Random Glucose Calcium Total Bilirubin AST ALT Alkaline Phosphatase Ammonia Total Protein Albumin Stool Occult Blood Blood Type Antibody Screen Crossmatch Airway Mallampati Class: II TM Dist: <=3cm Neck ROM: Full Denture: Upper and Lower Heart: ok Lungs: ok Assessment and Plan Assessment Anesthesia Assessment: Anesthesia Plan Discussed and Chart Reviewed Final Anesthetic Review Family History of Problems with Anesthesia: No History of Problems with Anesthesia: No NPO: Yes ASA Class: IV Final Preanesthetic Review: No Changes in Pt Med Stat, Meds/Allgs Chart Reviewed, Consent Obtained/Reviewed and Anes Risks/Benef Reviewed Patient Risk: High Procedure Risk: Intermediate Anesthetic Plan Anesthetic Plan: Agree w/ Assess. and Plan and TIVA Disposition: Standard PACU
--- NOTE | 2023-07-01 13:33 | P.PNGI_ITS ---
Subjective Subjective Date of Service: 07/01/23 Interval History: stable HGb s/p PRBC denies abdominal pain no melena, no rectal bleeding Critical Care Time (minutes): 0 Physical Exam 2 Vital Signs: Vital Signs: Last Vital Signs Temp 97.2 F 07/01/23 11:49 Pulse 68 07/01/23 11:49 Resp 17 07/01/23 11:49 BP 113/71 07/01/23 11:49 Pulse Ox 96 07/01/23 11:49 O2 Del Method Room Air 07/01/23 11:49 O2 Flow Rate 95 06/30/23 19:37 BMI result Body Mass Index 45.0 EXAM: GENERAL: The patient is obese VITAL SIGNS:see workflow HEENT: Nonicteric sclerae, PERRLA, EOMI. Oropharynx clear. Moist mucous membranes. Conjunctivae appear well perfused. No thyroid mass. CHEST: Chest wall is nontender. HEART: Regular rate and rhythm without murmurs. LUNGS: Clear to auscultation bilaterally. ABDOMEN: Soft, positive bowel sounds, nontender, no organomegaly.no flank tenderness SKIN: No rash, no excessive bruising, petechiae, or purpura. NEUROLOGIC: Cranial nerves II-XII intact without motor/sensory deficit. Psych: normal affect Objective Data Labs 07/01/23 05:16 06/30/23 09:46 Labs: Laboratory Results - last 24 hr 06/29/23 06/30/23 06/30/23 21:27 15:56 16:08 WBC 3.3 L RBC 1.73 L Hgb 5.6 L* Hct 16.6 L* MCV 96.0 MCH 32.4 MCHC 33.7 RDW 18.5 H Plt Count 29 L D MPV 11.8 Absolute Nucleated RBC 0.000 Nucleated RBC % (auto) 0.0 POC Glucose 241 H Blood Type A Positive Antibody Screen NEGATIVE Crossmatch See Detail 06/30/23 07/01/23 07/01/23 19:40 05:16 07:17 WBC 5.4 RBC 2.46 L D Hgb 7.9 L D Hct 23.0 L D MCV 93.5 MCH 32.1 MCHC 34.3 RDW 16.9 H Plt Count 37 L D MPV 11.5 Absolute Nucleated RBC 0.000 Nucleated RBC % (auto) 0.0 POC Glucose 307 H 116 H Blood Type Antibody Screen Crossmatch 07/01/23 11:19 WBC RBC Hgb Hct MCV MCH MCHC RDW Plt Count MPV Absolute Nucleated RBC Nucleated RBC % (auto) POC Glucose 117 H Blood Type Antibody Screen Crossmatch Procedures Date of Service Date of Service: 07/01/23 Progress Note: A&P Assessment and plan (1) Pancytopenia: Status: Acute (2) GIB (gastrointestinal bleeding): Status: Acute (3) 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 Quality Stroke Does the patient have a stroke diagnosis?: No VTE Prior VTE?: No VTE Risk Level:: Medical - moderate - high VTE Device Contraindication: N/A - Device Ordered VTE Drug Contraindication: Treatment Not Indicated
--- NOTE | 2023-07-01 13:51 | W.PM.OPN ---
Operative Note Operative Note Date of Service: 07/01/23 Narrative: Procedure Description: EGD Indication: anemia Anesthesia: MAC FLEXIBLE TRANSORAL UPPER GASTROINTESTINAL ENDOSCOPY UPPER ENDOSCOPY Consent: Indications for the procedure and potential complications of bleeding, perforation, reaction to medications and missed diagnosis were discussed with the patient and informed consent was obtained. Instrument: Olympus GIF H 190 J mid size upper endoscope Monitoring: Vital signs and clinical assessment, continuous EKG monitoring, Pulse oximetry, Carbon Dioxide monitoring and blood pressure monitoring were done throughout the procedure. Procedure: The patient was placed in the left lateral decubitis position and pre-procedure medications were administered and a bite block was placed. The endoscope was inserted into the mouth and advanced under direct vision to the third part of duodenum. A careful inspection was made as the upper endoscope was withdrawn including a retroflexed examination of the proximal stomach; Findings and interventions are described below. Findings: Larynx:normal Esophagus: GE junction at 38 cm, diaphragm hiatus at 38 cm, x2 cords of grade I varices noted without any high risk features Stomach: Patchy gastric erythema and mosaic pattern consistent with portal hypertensive gastropathy. Grade 2 flap valve on retroflexed examination of the cardia, no gastric varices seen. there were 3 areas of mucosal oozing noted close to the antrum including over an area which as previously clamped with ovesco clip, x 2 clips were applied and then hemospray. Duodenum: Normal bulb and descending duodenum, Intervention: clip placement, hemospray Impression/Findings: esophageal varices mucosal bleeding possible related to thrombocytopenia and platelt dysfunction PLAN: clears as tolerated today and advance diet tomorrow carafate liquid indefinitely high dose PPI, e.g pantoprazole 40 mg bid pack of platelets iron tablets or scheduled iron infusions maybe every few weeks
[2023-07-01 15:39] LABS: Glucose, Whole Blood 73 mg/dL (60-115)
[2023-07-01] MEDS: Sucralfate Oral Suspension 1 GM/10 ML ORAL.SUSP PO ×2 (16:28→20:16)
[2023-07-01 19:47] LABS: Glucose, Whole Blood 161 mg/dL (60-115)
[2023-07-01] MEDS: Lactulose 20 GM/30 ML SOLUTION PO (20:16)
[2023-07-01] MEDS: Insulin Lispro 100 UNIT/ML 3 ML VIAL SUBCUT (20:16)
[2023-07-01] MEDS: Insulin Glargine,Hum.rec.anlog 100 UNIT/ML 10 ML VIAL 35 UNIT SUBCUT (20:17)
[2023-07-02] VITALS (13 sets, daily range): BP systolic 97–119; BP diastolic 50–59; PULSE 70–77; RESP 16–20; TEMP 36.2–37.1; O2SAT 93–98
[2023-07-02 02:31] LABS: Glucose, Whole Blood 150 mg/dL (60-115)
[2023-07-02] MEDS: Octreotide Acetate 500 MCG in 0.9 % Sodium Chloride 500 ML 50.1 MCG IVCONT ×3 (02:55→23:29)
[2023-07-02] MEDS: Levothyroxine Sodium 50 MCG TABLET PO (05:58)
[2023-07-02] MEDS: Pantoprazole Sodium 40 MG/10 ML VIAL IVPUSH (05:59)
[2023-07-02 07:22] LABS: Hematocrit 23.2 % (37.0-47.0); Mean Corpuscular HGB Conc 34.5 g/dl (31.0-35.0); Mean Corpuscular Hemoglobin 33.2 pg (27.0-33.0); Mean Corpuscular Volume 96.3 fL (80.0-98.0); Red Blood Count 2.41 X10*6/uL (4.20-5.50); Red Cell Distribution Width 16.8 % (11.0-16.0); White Blood Count 4.7 X10*3/uL (4.8-10.8)
[2023-07-02 07:34] LABS: Platelet Count 32 X10*3/uL (160-400)
[2023-07-02 07:48] LABS: Glucose, Whole Blood 100 mg/dL (60-115)
[2023-07-02] MEDS: Atorvastatin Calcium 20 MG TABLET PO (08:50)
[2023-07-02] MEDS: Sucralfate Oral Suspension 1 GM/10 ML ORAL.SUSP PO ×4 (08:50→21:48)
[2023-07-02] MEDS: carvediloL 3.125 MG TABLET PO ×2 (08:50→21:49)
[2023-07-02] MEDS: Ferrous Sulfate 324 MG TABLET.DR PO (08:50)
[2023-07-02] MEDS: Lactulose 20 GM/30 ML SOLUTION PO ×2 (08:50→21:48)
[2023-07-02] MEDS: rifAXIMin 550 MG TABLET PO ×2 (08:50→21:49)
[2023-07-02] MEDS: Torsemide 20 MG TABLET 60 MG PO (08:50)
[2023-07-02] MEDS: Cholecalciferol (Vitamin D3) 25 MCG TABLET 50 MCG PO (08:50)
[2023-07-02] MEDS: 0.9 % Sodium Chloride Flush 3 ML SYRINGE IVFLUSH ×2 (08:51→15:49)
[2023-07-02] MEDS: Potassium Chloride ER 20 MEQ TAB.ER.PRT PO (08:51)
[2023-07-02 11:35] LABS: Glucose, Whole Blood 136 mg/dL (60-115)
--- NOTE | 2023-07-02 12:26 | P.PNIM_ITS ---
Subjective Subjective Date of Service: 07/02/23 Interval History: f/u GIB anemia, elevated ammonia EGD 06/30: esophageal varices mucosal bleeding possible related to thrombocytopenia, H/H unchanged Physical Exam 2 Vital Signs: Vital Signs: Last Vital Signs Temp 97.2 F 07/02/23 11:00 Pulse 73 07/02/23 11:00 Resp 17 07/02/23 11:00 BP 119/59 L 07/02/23 11:00 Pulse Ox 98 07/02/23 11:00 O2 Del Method Room Air 07/02/23 11:00 O2 Flow Rate 6 07/01/23 14:12 BMI result Body Mass Index 45.0 Objective Data Active Medications Acetaminophen (Acetaminophen 325 Mg Tablet) 650 mg PO Q6H PRN PRN Reason: Pain, Mild (Pain Scale 1-3) Albuterol Sulfate (Albuterol Sulfate (0.083%) 2.5 Mg/3 Ml Vial.Neb) 2.5 mg INHALE QID PRN PRN Reason: dyspnea Albuterol Sulfate (Albuterol Sulfate 90 Mcg 8 Gm Inhaler) 2 puff INHALE RQ6H PRN PRN Reason: Wheezing Atorvastatin Calcium (Atorvastatin Calcium 20 Mg Tablet) 20 mg PO DAILY [facility] Last Admin: 07/02/23 08:50 Dose: 20 mg Documented By: MAGALY Carvedilol (Carvedilol 3.125 Mg Tablet) 3.125 mg PO BID [facility]; Protocol Last Admin: 07/02/23 08:50 Dose: 3.125 mg Documented By: MAGALY Dextrose (Dextrose 50 % 25 Gm/50 Ml Syringe) 25 gm IVPUSH Q15M PRN; Protocol PRN Reason: per Hypoglycemia Standing Ord. Last Admin: 06/30/23 10:23 Dose: 25 gm Documented By: REAGAN Ferrous Sulfate (Ferrous Sulfate 324 Mg Tablet.Dr) 324 mg PO DAILY [facility] Last Admin: 07/02/23 08:50 Dose: 324 mg Documented By: MAGALY Glucose (Glucose Gel 15 Gm Gel..Gram.) 15 gm PO Q15M PRN; Protocol PRN Reason: per Hypoglycemia Standing Ord. Octreotide Acetate 500 mcg/ (Sodium Chloride) 501 mls @ 50.1 mls/hr IVCONT .Q10H [facility] Last Admin: 07/02/23 02:55 Dose: 50 mcg/hr, 50.1 mls/hr Documented By: GERMAN Insulin Glargine (Insulin Glargine,Hum.Rec.Anlog 100 Unit/Ml 10 Ml Vial) 35 unit SUBCUT BEDTIME [facility] Last Admin: 07/01/23 20:17 Dose: 35 unit Documented By: BJORN Insulin Human Lispro (Insulin Lispro 100 Unit/Ml 3 Ml Vial) 0 unit SUBCUT QIDACHS [facility]; Protocol Last Admin: 07/02/23 11:41 Dose: Not Given Documented By: MAGALY Non-Admin Reason: No Insulin Coverage Lactulose (Lactulose 20 Gm/30 Ml Solution) 20 gm PO BID [facility] Last Admin: 07/02/23 08:50 Dose: 20 gm Documented By: MAGALY Levothyroxine Sodium (Levothyroxine Sodium 50 Mcg Tablet) 50 mcg PO DAILY@0600 [facility] Last Admin: 07/02/23 05:58 Dose: 50 mcg Documented By: GERMAN Melatonin (Melatonin 3 Mg Tablet) 6 mg PO BEDTIME PRN PRN Reason: Insomnia Pt Own (Eplerenone [ Inspra] 25 Mg Tablet ) 25 mg PO DAILY [facility] Last Admin: 07/02/23 08:50 Dose: 25 mg Documented By: MAGALY Pt Own (Mometasone [ Asmanex Hfa] 200 Mcg /Actuation Hfa Aerosol Inhaler) 1 puff INHALE RBID [facility] Last Admin: 07/02/23 07:41 Dose: 1 puff Documented By: LINDSEY Omeprazole (Omeprazole 40 Mg Capsule.Dr) 40 mg PO BID@0630,1630 [facility] Ondansetron HCl (Ondansetron Hcl 4 Mg/2 Ml Vial) 4 mg IVPUSH Q8H PRN PRN Reason: Nausea and Vomiting Potassium Chloride (Potassium Chloride Er 20 Meq Tab.Er.Prt) 20 meq PO DAILY [facility] Last Admin: 07/02/23 08:51 Dose: 20 meq Documented By: MAGALY Rifaximin (Rifaximin 550 Mg Tablet) 550 mg PO BID [facility] Last Admin: 07/02/23 08:50 Dose: 550 mg Documented By: MAGALY Sodium Chloride (0.9 % Sodium Chloride Flush 3 Ml Syringe) 3 ml IVFLUSH QSHIFT [facility] Last Admin: 07/02/23 08:51 Dose: 3 ml Documented By: MAGALY Sucralfate (Sucralfate Oral Suspension 1 Gm/10 Ml Oral.Susp) 1 gm PO QIDACHS [facility] Last Admin: 07/02/23 08:50 Dose: 1 gm Documented By: MAGALY Torsemide (Torsemide 20 Mg Tablet) 60 mg PO DAILY [facility]; Protocol Last Admin: 07/02/23 08:50 Dose: 60 mg Documented By: MAGALY Vitamin D (Cholecalciferol (Vitamin D3) 25 Mcg Tablet) 50 mcg PO DAILY [facility] Last Admin: 07/02/23 08:50 Dose: 50 mcg Documented By: MAGALY Labs 07/02/23 05:57 06/30/23 09:46 Labs: Laboratory Results - last 24 hr 07/01/23 07/01/23 07/02/23 15:34 19:39 02:26 MCV MCH MCHC RDW Plt Count MPV Absolute Nucleated RBC Nucleated RBC % (auto) POC Glucose 73 161 H 150 H 07/02/23 07/02/23 07/02/23 05:57 07:24 11:16 MCV 96.3 MCH 33.2 H MCHC 34.5 RDW 16.8 H Plt Count 32 L MPV 12.0 Absolute Nucleated RBC 0.000 Nucleated RBC % (auto) 0.0 POC Glucose 100 136 H Assessment and Plan (1) GIB (gastrointestinal bleeding): Status: Acute (2) Hepatic encephalopathy: Status: Acute (3) 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 Acute on chronic anemia, likely from UGIB, DDx: varices, PUD, gastritis/esophagitis -Transfused 4 units of RBC so far, H/H is still low, but will transfuse if Hgb <7.9 -PO BID PPI + Karafate -continue ctreotitde -EGD 06/30: esophageal varices mucosal bleeding possible related to thrombocytopenia and platelt dysfunction -continue ocreotide -PO PPI + Karafate -Platlets today Cirrhosis due to SERVIN, continue Rifaximim, lactulose, Torsemide and Aldactone if BP ok Ascietes with abd distention, no sob, paracentesis if has fluid by US Elevated ammonia without encephalopathy, Likely in the setting of GI bleed. - continue Lactulose and Rifaximim Chronic thrombocytopenia due to cirrhosis: Plat 32, transfusion as above Insulin-dependent diabetes mellitus, sugar control.. monitor while NPO, continue insulin Mild intermittent asthma: No exacerbation on admission, inhalers PRB Obesity: Counseled regarding diet and weight loss Hypothyroidism: On Synthroid AMY: Not on CPAP DVT prophylaxis: Mechanical Full code need for inpt: Acute gib, acute blood loss anemia, needing transfusion and needs EGD Quality Stroke Does the patient have a stroke diagnosis?: No VTE Prior VTE?: No VTE Risk Level:: Medical - moderate - high VTE Device Contraindication: N/A - Device Ordered VTE Drug Contraindication: Treatment Not Indicated
--- NOTE | 2023-07-02 13:55 | HO.POSTANES ---
Post Anesthesia Evaluation Post Anesthesia Evaluation Date of Service: 07/02/23 Vital Signs: Vital Signs Temp Pulse Resp BP Pulse Ox O2 Del Method 07/02/23 11:00 97.2 F 73 17 119/59 L 98 Room Air 07/02/23 07:41 76 17 07/02/23 07:33 97.5 F 76 17 107/51 L 98 Room Air 07/02/23 03:39 97.4 F 76 16 99/55 L 97 Room Air Anesthesia: Monitored Mental Status: Awake Pain Control: Satisfactory Nausea/Vomiting: None Hydration: Adequate Anesthesia-Related Issues: No Anes. Related Issues
[2023-07-02] MEDS: Iron Sucrose Complex 200 MG in 0.9 % Sodium Chloride 100 ML 440 MG IV (16:04)
[2023-07-02] MEDS: Omeprazole 40 MG CAPSULE.DR PO (16:18)
[2023-07-02 16:23] LABS: Glucose, Whole Blood 121 mg/dL (60-115)
[2023-07-02] MEDS: Albuterol Sulfate 90 MCG 8 GM INHALER 2 PUFF INHALE (19:27)
[2023-07-02 20:02] LABS: Glucose, Whole Blood 107 mg/dL (60-115)
[2023-07-02] MEDS: Insulin Glargine,Hum.rec.anlog 100 UNIT/ML 10 ML VIAL 35 UNIT SUBCUT (21:49)
[2023-07-03] MEDS: 0.9 % Sodium Chloride Flush 3 ML SYRINGE IVFLUSH ×3 (01:56→16:08)
[2023-07-03 03:14] VITALS: BP 107/52; PULSE 82; RESP 18; TEMP 36.8; O2SAT 96
[2023-07-03] MEDS: Levothyroxine Sodium 50 MCG TABLET PO (05:58)
[2023-07-03] MEDS: Omeprazole 40 MG CAPSULE.DR PO ×2 (05:58→16:57)
[2023-07-03 06:41] LABS: Hematocrit 22.7 % (37.0-47.0); Hemoglobin 7.7 g/dl (12.0-16.0); Mean Corpuscular HGB Conc 33.9 g/dl (31.0-35.0); Mean Corpuscular Hemoglobin 32.5 pg (27.0-33.0); Mean Corpuscular Volume 95.8 fL (80.0-98.0); Mean Platelet Volume 11.2 fL (9.4-12.3); Red Blood Count 2.37 X10*6/uL (4.20-5.50); Red Cell Distribution Width 17.4 % (11.0-16.0); White Blood Count 4.4 X10*3/uL (4.8-10.8)
[2023-07-03 06:55] LABS: Platelet Count 35 X10*3/uL (160-400)
[2023-07-03 07:16] LABS: Glucose, Whole Blood 134 mg/dL (60-115)
[2023-07-03 07:31] VITALS: PULSE 82; RESP 18; O2SAT 94
[2023-07-03 07:37] VITALS: BP 98/51; PULSE 77; RESP 15; TEMP 36.4; O2SAT 97
[2023-07-03] MEDS: Octreotide Acetate 500 MCG in 0.9 % Sodium Chloride 500 ML 50.1 MCG IVCONT (08:27)
[2023-07-03] MEDS: Sucralfate Oral Suspension 1 GM/10 ML ORAL.SUSP PO ×3 (08:27→16:57)
[2023-07-03] MEDS: Lactulose 20 GM/30 ML SOLUTION PO (08:27)
[2023-07-03] MEDS: carvediloL 3.125 MG TABLET PO (08:30)
[2023-07-03] MEDS: Atorvastatin Calcium 20 MG TABLET PO (08:30)
[2023-07-03] MEDS: Potassium Chloride ER 20 MEQ TAB.ER.PRT PO (08:30)
[2023-07-03] MEDS: Torsemide 20 MG TABLET 60 MG PO (08:30)
[2023-07-03] MEDS: Cholecalciferol (Vitamin D3) 25 MCG TABLET 50 MCG PO (08:30)
[2023-07-03] MEDS: rifAXIMin 550 MG TABLET PO (08:30)
[2023-07-03] MEDS: Ferrous Sulfate 324 MG TABLET.DR PO (08:30)
[2023-07-03 08:34] VITALS: BP 112/56; PULSE 80
--- NOTE | 2023-07-03 11:12 | MHC.CM.PN ---
EMR reviewed. Per MD rounds patient is medically cleared for dc home w/ resumption of [facility]. BLS transportation scheduled for 1500. , RN and patient aware. LM for spouse to notify of dc per patient request. IMM delivered.
[2023-07-03 11:38] LABS: Glucose, Whole Blood 94 mg/dL (60-115)
[2023-07-03 12:00] VITALS: BP 107/59; PULSE 72; RESP 18; TEMP 36.1; O2SAT 98
[2023-07-03 15:21] VITALS: BP 108/55; PULSE 71; RESP 18; TEMP 36.7; O2SAT 97
[2023-07-03 15:46] LABS: Hematocrit 23.4 % (37.0-47.0); Mean Corpuscular HGB Conc 34.2 g/dl (31.0-35.0); Mean Corpuscular Hemoglobin 32.8 pg (27.0-33.0); Mean Corpuscular Volume 95.9 fL (80.0-98.0); Mean Platelet Volume 10.5 fL (9.4-12.3); Red Blood Count 2.44 X10*6/uL (4.20-5.50); Red Cell Distribution Width 17.5 % (11.0-16.0); White Blood Count 4.7 X10*3/uL (4.8-10.8)
[2023-07-03 15:52] LABS: Platelet Count 34 X10*3/uL (160-400)
--- NOTE | 2023-07-03 15:52 | P.DS_ITS ---
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 History was obtained wit h the help of associate business analyst. Patient states she has been feeling tired for a week. She is also been nauseous and has had nonbloody emesis. No hematemesis, melena or hematochezia as per the patient. Blood work was done outpatient and hemoglobin was found to be 5 and patient was sent to the ER. Patient denies fever, chills, chest discomfort, palpitations, shortness of breath, changes in urinary or bowel habits. In the emergency department, repeat hemoglobin was found to be 5 and 2 unit PRBC ordered. Hospital course: Patient with known advanced liver disease cirrhosis due to SERVIN s/p TIPS and presented low hemoglobin with Hemoglobin of 5. She was transfused 4 units of RBC, given IV protonix and octreotide for history of varices. She had EGD showing varices but no active bleeding although may have had some bleeding along with low Plat. Ate the moment she has no active bleeding Hemoglobin and hematocrit has been stable. Presently hemoglobin of 8 and hematocrit of 23 and this has been stable for 3 days. The foot press operator recommend twice a day PII and Karafate suspension along with Iron therapy. Cirrhosis due to SERVIN, continue Rifaximim, lactulose, Torsemide and Aldactone, attempt was made for paracentesis but there was not enough fluid Elevated ammonia without encephalopathy, Likely in the setting of GI bleed. - continue Lactulose and Rifaximim Chronic thrombocytopenia due to cirrhosis: Plat level 34, was transfuse 1 unts. The patient will continue to need close monitoring of H/H on outpatient basised Insulin-dependent diabetes mellitus, sugar control.. monitor while NPO, continue insulin Mild intermittent asthma: No exacerbation on admission, inhalers PRB Obesity: Counseled regarding diet and weight loss Time Attestation Discharge Coordination Time (in mins): 40 minutes Quality: Safe Use of Opioids Does Pt have an Active Cancer Diagnosis on the Problem List?: No Quality: Stroke Does the patient have a stroke diagnosis?: No Physical Exam Vital Signs: Vital Signs: Last Vital Signs Temp 98.0 F 07/03/23 15:21 Pulse 71 07/03/23 15:21 Resp 18 07/03/23 15:21 BP 108/55 L 07/03/23 15:21 Pulse Ox 97 07/03/23 15:21 O2 Del Method Room Air 07/03/23 15:21 O2 Flow Rate 6 07/01/23 14:12 BMI result Body Mass Index 45.0 DS: Data Data Completed and Pending Labs on day of discharge: Laboratory Results - last 24 hr 06/29/23 07/02/23 07/02/23 21:27 16:12 19:20 WBC RBC Hgb Hct MCV MCH MCHC RDW Plt Count MPV Absolute Nucleated RBC Nucleated RBC % (auto) POC Glucose 121 H 107 Blood Type A Positive Antibody Screen NEGATIVE Crossmatch See Detail 07/03/23 07/03/23 07/03/23 05:49 07:11 11:24 WBC 4.4 L RBC 2.37 L Hgb 7.7 L Hct 22.7 L MCV 95.8 MCH 32.5 MCHC 33.9 RDW 17.4 H Plt Count 35 L MPV 11.2 Absolute Nucleated RBC 0.000 Nucleated RBC % (auto) 0.0 POC Glucose 134 H 94 Blood Type Antibody Screen Crossmatch Discharge Plan Discharge Anticipated Discharge Date/Time: 07/03/23 09:43 Patient Disposition: Home Health Service Discharge Diagnosis: Acute GI bleeding, acute blood loss anemia, Referrals: [facility] [Outside] - 1 Day (Resume VNA services) Radah Anne MD [Primary Care Provider] - 1 Week Discharge Medications: New sucralfate 100 mg/mL Suspension 1 g PO QIDACHS 30 Days Qty: 400 3RF omeprazole 40 mg Capsule,Delayed Release(Dr/Ec) 40 mg PO BID@0630,1630 Qty: 160 0RF ferrous sulfate 324 mg (65 mg iron) Tablet,Delayed Release (Dr/Ec) 324 mg PO BID Qty: 60 0RF Continued insulin glargine U-300 conc [Toujeo Max U-300 SoloStar] 300 unit/mL (3 mL) insulin pen 75 unit subcut BEDTIME insulin lispro 100 unit/mL insulin pen 26 - 30 unit subcut TIDAC Rx Instructions: 26 units < blood sugar 200 30 units if blood sugar >200 ondansetron 4 mg Tablet,Disintegrating 4 mg PO Q8H PRN (Reason: Nausea And Vomiting) eplerenone [Inspra] 25 mg tablet 25 mg PO DAILY Xifaxan 550 mg tablet 550 mg PO BID albuterol sulfate 2.5 mg /3 mL (0.083 %) solution for nebulization 2.5 mg inhalation QID PRN (Reason: dyspnea) Asmanex HFA 200 mcg/actuation HFA aerosol inhaler 1 puff INHALATION BID atorvastatin 20 mg Tablet 20 mg PO DAILY Qty: 30 0RF carvedilol 3.125 mg Tablet 3.125 mg PO BID Qty: 60 0RF Protocol: Hold for SBP/HR < HOLD for SBP < : 90 HOLD for HR < : 60 lactulose 20 gram/30 mL solution 20 g PO BID Qty: 1200 0RF (DME) FreeStyle Lite Strips Strip See Rx Instructions .ROUTE .MEDSUPPLY Qty: 10 Rx Instructions: test 3x a day (DME) lancets [FreeStyle Lancets] 28 gauge misc See Rx Instructions .ROUTE .MEDSUPPLY Qty: 100 Rx Instructions: test 3x a day albuterol sulfate [Ventolin HFA] 90 mcg/actuation HFA aerosol inhaler 2 puff inhalation Q6H PRN (Reason: Wheezing) levothyroxine 50 mcg tablet 50 mcg PO DAILY@0600 cholecalciferol (vitamin D3) [Vitamin D3] 50 mcg (2,000 unit) capsule 50 mcg PO DAILY (DME) FreeStyle Brooke 2 Sensor Kit See Rx Instructions .ROUTE DAILY Qty: 1 Rx Instructions: As directed (DME) pen needle, diabetic [Pentips] 32 gauge x 5/32 needle See Rx Instructions .ROUTE .MEDSUPPLY Qty: 1200 Rx Instructions: As directed potassium chloride 20 mEq tablet,ER particles/crystals 20 meq PO DAILY torsemide 20 mg tablet 60 mg PO DAILY Discontinued omeprazole 40 mg Capsule,Delayed Release(Dr/Ec) 40 mg PO DAILY@0630 Qty: 30 0RF ferrous gluconate 324 mg (38 mg iron) tablet 324 mg PO QAM Discharge Orders: Discharge Order (Routine); Ordered 07/03/23 Ordered By: Maninder Harris Diet: Diabetic diet Activity on Discharge: As tolerated Stand Alone Forms: Patient Portal Discharge page Other Ambulatory Orders: Complete Blood Count no Diff (Routine) Timeframe: [id number] Facility: [facility] - Location: Laboratory Ordered By: Maninder Harris Care Plan Goals: recovery from anemia, stability of chronic liver disease Health Concerns: cirrhosis of the liver, varices, gi bleeding, chronic anemia Plan of Treatment: Take Iron as recommended continue taking all your other medication take Sucralfate as directed follow up with your liver docotor in a week avoid aspirin, motrin or other over the conter pain medications follow up with your doctor in a week Chec CBC thursday Assessment: see above
--- NOTE | 2023-07-03 16:08 | W.MHC.F2F ---
Service Date Service Date: 07/03/23 Encounter Date of encounter: 07/03/23 Reasons for Services Signs and symptoms assessed: Weakness due to anemia Reason for alf: medication management and teach disease management Homebound: Leaving the home is medically contraindicated at this time without the asist of a device and/or another person due th the listed conditions above and below. Reason homebound: weakness related to hospital stay and other (advanced cirrhosis with lack of energy) Homebound supporting statement: homebound due to weakness from anemia, chronic liver disease cirrhosis and therefore needs the assistance of another person Certification: Based on the above findings, I certify that this patient is confined to the home and needs intermittent alf care, physical therapy and/or speech therapy, or continues to need occupational therapy. The patient is under my care, and I have initiated the establishment of the plan of care. The patient will be followed by a physician who will periodically review the plan of care. Time Spent With Patient Time: Total time managing care of this patient today ____ minutes.
[2023-07-03 16:27] LABS: Glucose, Whole Blood 127 mg/dL (60-115)
--- NOTE | 2023-07-03 19:00 | PC.NURSE ---
Patient called and stated he could not fill in prescriptions in [facility] on [address] in [place] was told they were sent back to our hospital?,notified Dr. Harris ,printed prescriptions were given to patient
== END 2023-07-03 18:54 | disposition home health service (06) ==
LOC: HO.ED 23:17 → HO.EDOVER 06-30 01:03 → HO.S3 06-30 05:27
PROVIDERS: Internal Medicine Gastroenterology; Physician Assistant Surgical; Admitting Provider Student in an Organized Health Care Education/Training Program; Emergency Provider Internal Medicine; PCP Family Medicine; Visit Provider Internal Medicine
PROC: 0DJ08ZZ Inspection of Upper Intestinal Tract, Via Natural or Artificial Opening Endoscopic (ICD-10-PCS; CPT 43235; principal; 2023-07-01 15:50)
DX: K74.69 Other cirrhosis of liver (principal); I85.11 Secondary esophageal varices with bleeding; D61.818 Other pancytopenia; K76.6 Portal hypertension; D69.59 Other secondary thrombocytopenia; E11.65 Type 2 diabetes mellitus with hyperglycemia; E03.9 Hypothyroidism, unspecified; K31.89 Other diseases of stomach and duodenum; E22.0 Acromegaly and pituitary gigantism; K75.81 Nonalcoholic steatohepatitis (NASH); K76.82 Hepatic encephalopathy; E28.2 Polycystic ovarian syndrome; E78.5 Hyperlipidemia, unspecified; G47.33 Obstructive sleep apnea (adult) (pediatric); E66.9 Obesity, unspecified; Z68.42 Body mass index [BMI] 45.0-49.9, adult; Z71.3 Dietary counseling and surveillance; J45.20 Mild intermittent asthma, uncomplicated; Z79.01 Long term (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 anticoagulants; Z79.890 Hormone replacement therapy; Z79.899 Other long term (current) drug therapy
CPT/HCPCS: 36415; 71045; 76705; 80048; 80053; 82140; 82272; 82947; 85025; 85027; 85610; 86850; 86900; 86901; 86923; 93005; 94640; 99285; C9113; J1756; J2354; J2704; P9016; P9073

== ENCOUNTER → 2023-06-29 20:29 | Outpatient (BNV) | payer MEDICAID, SELFPAY | PROVIDERS: Admitting Provider Student in an Organized Health Care Education/Training Program; Emergency Provider Internal Medicine; PCP Family Medicine; Visit Provider Internal Medicine Cardiovascular Disease | DX: D64.9 Anemia, unspecified (principal); R94.31 Abnormal electrocardiogram [ECG] [EKG]; R11.0 Nausea | CPT/HCPCS: 93010 ==

== ENCOUNTER → 2023-06-29 22:51 | Outpatient (BNV) | payer MEDICAID, SELFPAY | PROVIDERS: Emergency Provider Internal Medicine; PCP Family Medicine; Visit Provider Student in an Organized Health Care Education/Training Program | DX: K92.2 Gastrointestinal hemorrhage, unspecified (principal); K76.82 Hepatic encephalopathy; K75.81 Nonalcoholic steatohepatitis (NASH); K74.60 Unspecified cirrhosis of liver; D64.9 Anemia, unspecified | CPT/HCPCS: 99222; 99232; 99233; 99239; G0180 ==

== ENCOUNTER → 2023-06-29 22:52 | Outpatient (BNV) | payer MEDICAID, SELFPAY | PROVIDERS: Admitting Provider Student in an Organized Health Care Education/Training Program; Emergency Provider Internal Medicine; PCP Family Medicine; Visit Provider Internal Medicine Gastroenterology | DX: D61.818 Other pancytopenia (principal); K92.2 Gastrointestinal hemorrhage, unspecified; K75.81 Nonalcoholic steatohepatitis (NASH); K74.60 Unspecified cirrhosis of liver; D64.9 Anemia, unspecified; Z95.828 Presence of other vascular implants and grafts; I85.10 Secondary esophageal varices without bleeding | CPT/HCPCS: 43255; 99222; 99232 ==

== ENCOUNTER 2023-07-17 07:49 | Day surgery (SDC) | payer MEDICAID, SELFPAY ==
--- NOTE | ~2023-07-17 | US_ITS ---
EXAMINATION: US duplex arterial venous comp CLINICAL INFORMATION: * Status post TIPS, ascites COMPARISON: Ultrasound from 06/05/2023 TECHNIQUE: Color and spectral Doppler evaluation of the hepatic vasculature. FINDINGS: Evaluation is limited due to due to body habitus. LIVER: Echogenic and nodular consistent with underlying cirrhosis. No focal liver lesion. No intrahepatic biliary duct dilatation. SPLENIC VEIN: Patent with normal waveforms. HEPATIC VEINS: Patent with normal waveforms. PORTAL VEINS: Patent with normal waveforms and hepatopetal flow. TIPS: * Hepatic venous side: 190 cm/s * Mid shunt: 203 cm/s * Portal venous side: 92.9 cm/s HEPATIC ARTERIES: Normal upstroke and diastolic flow. INFERIOR VENA CAVA: Patent with normal waveforms. PANCREAS: Normal. The visualized pancreatic head and body are normal in appearance. The remainder of the pancreas is obscured from visualization by the overlying bowel gas. FREE FLUID: Small volume ascites in the right upper quadrant. US/US duplex arterial venous comp IMPRESSION: 1. Patent TIPS with borderline elevated velocities however evaluation is limited by body habitus. 2. Cirrhotic appearance of the liver. Small volume ascites.
--- NOTE | ~2023-07-17 | US_ITS ---
EXAMINATION: US ABDOMEN LIMITED CLINICAL INFORMATION: Ascites. Assess for paracentesis. COMPARISON: None available. FINDINGS: Limited ultrasound of the abdomen demonstrates a very small volume of ascites in the right upper quadrant. Insufficient fluid present for paracentesis. US/US abdomen limited IMPRESSION: Very small volume of ascites present in the right upper quadrant. Insufficient fluid present for paracentesis. No procedure was performed. This procedure was performed by Jude Stephenson PA-C, and directly supervised by Dr. Bentley
[2023-07-17 09:24] LABS: Glucose, Whole Blood 218 mg/dL (60-115)
[2023-07-17 09:25] VITALS: BMI 47.5
[2023-07-17 09:26] VITALS: BP 118/47; PULSE 95; RESP 18; TEMP 36.6; O2SAT 99
[2023-07-17 10:45] VITALS: BP 132/51; PULSE 90; RESP 16; TEMP 36.6; O2SAT 98
--- NOTE | 2023-07-17 11:07 | PC.NURSE ---
Patient transported from PACU to [facility] for infusion appointment. IV remains in. [facility] to removed IV following appointment.
== END 2023-07-17 11:19 | disposition home or self-care (01) ==
PROVIDERS: Physician Assistant Surgical; PCP Family Medicine; Visit Provider Internal Medicine Gastroenterology
DX: K74.60 Unspecified cirrhosis of liver (principal); Z53.8 Procedure and treatment not carried out for other reasons; R18.8 Other ascites; K75.81 Nonalcoholic steatohepatitis (NASH); Z95.828 Presence of other vascular implants and grafts; E66.9 Obesity, unspecified; Z68.42 Body mass index [BMI] 45.0-49.9, adult; Z88.0 Allergy status to penicillin; Z88.5 Allergy status to narcotic agent; Z88.6 Allergy status to analgesic agent
CPT/HCPCS: 76705; 82947; 93975; J1756

== ENCOUNTER 2023-07-17 11:19 | Outpatient (REF) | payer MEDICAID, SELFPAY ==
[2023-07-17 11:22] VITALS: BP 134/48; PULSE 92; RESP 20; TEMP 36.4; O2SAT 99
[2023-07-17] MEDS: Iron Sucrose Complex 200 MG in 0.9 % Sodium Chloride 100 ML 440 MG IV (11:41)
== END 2023-07-17 11:20 | disposition home or self-care (01) ==
LOC: HO.MDS 11:19
PROVIDERS: Visit Provider Internal Medicine Gastroenterology
DX: D64.9 Anemia, unspecified (principal)
CPT/HCPCS: 76705; 82947; 93975; 96374; J1756

== ENCOUNTER 2023-07-25 16:27 | Inpatient (IN) | payer MEDICAID, SELFPAY ==
--- NOTE | ~2023-07-25 | CT_ITS ---
EXAMINATION: CT HEAD WITHOUT CONTRAST CLINICAL INFORMATION: Altered mental status. COMPARISON: None available. TECHNIQUE: Contiguous axial imaging was performed from the skull base to vertex without intravenous administration of contrast. This CT examination was performed using dose optimization techniques as appropriate, variously including the following: *Automated exposure control *Adjustment of mA and/or kV according to patient size (this includes techniques or standardized protocols for targeted exams where dose is matched to indication/reason for exam; i.e. extremities or head) *Use of iterative reconstruction technique DLP: 778.39 mGy-cm FINDINGS: The lateral, third and fourth ventricles are normally outlined. The cortical sulci and basal cisterns are normally outlined as well. There is no acute territorial defect, hemorrhage or midline shift. The extra-axial spaces are unremarkable. Calvarium: Intact. Maxillofacial sinuses and mastoids: Clear as visualized. CT/CT head/brain wo IV con IMPRESSION: No acute intracranial pathology.
--- NOTE | ~2023-07-25 | XR_ITS ---
EXAMINATION: XR CHEST CLINICAL INFORMATION: Chest pain COMPARISON: Multiple priors with last Chest x-ray of 06/29/2023 TECHNIQUE: Frontal view of the chest was obtained. FINDINGS: Cardiomediastinal silhouette is unchanged, likely with cardiomegaly. Lungs are moderately hypoexpanded with bronchovascular crowding. The findings are seen on the previous chest x-ray of 06/29/2023. No dense focal consolidation is seen. No evidence of changes of overt pulmonary edema or significant pleural effusions. No pneumothorax. XR/XR chest 1V IMPRESSION: Hypoexpanded lungs with crowding of bronchovascular markings. Possibility of mild interstitial edema or atypical/viral infection cannot be excluded. No evidence of changes of overt pulmonary edema or dense focal consolidation.
--- NOTE | ~2023-07-25 | US_ITS ---
EXAMINATION: US ABDOMEN LIMITED CLINICAL INFORMATION: Check for ascites. COMPARISON: CT abdomen and pelvis 07/25/2023. Ultrasound abdomen limited 07/17/2023 and 07/02/2023. X-ray abdomen 11/01/2018. TECHNIQUE: Real-time imaging of all 4 quadrants. FINDINGS: Sonographic evaluation of ascites revealed no ascites. 4. Corners of the abdomen. Partially visualized liver is echogenic. US/US abdomen limited IMPRESSION: No evidence of ascites
--- NOTE | ~2023-07-25 | CT_ITS ---
EXAMINATION: CT ABDOMEN AND PELVIS WITH CONTRAST CLINICAL INFORMATION: Abdominal pain. History of cirrhosis with recurrent ascites COMPARISON: CT from 06/24/2022 TECHNIQUE: Multidetector volumetric images were obtained from the superior aspect of the liver through the pubic symphysis following administration 85 mL of Omnipaque 350 intravenous contrast. Sagittal and coronal reformatted images were obtained on the technologist's workstation. Oral contrast: No This CT examination was performed using dose optimization techniques as appropriate, variously including the following: *Automated exposure control *Adjustment of mA and/or kV according to patient size (this includes techniques or standardized protocols for targeted exams where dose is matched to indication/reason for exam; i.e. extremities or head) *Use of iterative reconstruction technique DLP: 1456 mGy-cm FINDINGS: LUNG BASES: The visualized lung bases are unremarkable. LIVER, GALLBLADDER, AND BILIARY TREE: Liver is small with nodular contour consistent with cirrhosis. No discrete liver lesions seen. TIPS stent is seen which appears patent. Gallbladder is filled with calcified stones but is otherwise decompressed without wall thickening or inflammatory stranding PANCREAS: Unremarkable. SPLEEN: Spleen is enlarged consistent with underlying portal hypertension. ADRENAL GLANDS: Unremarkable. KIDNEYS AND URETERS: The kidneys are normal in size, shape, and attenuation. No hydronephrosis, hydroureter, or calculi seen. No perinephric stranding. BLADDER: Unremarkable. GASTROINTESTINAL TRACT: Multiple metallic clips is seen in the antrum of the stomach. The small and large bowel are unremarkable. ABDOMINAL WALL: No significant hernia is appreciated. Diffuse soft tissue anasarca seen in the abdominal wall LYMPH NODES: Normal. VASCULAR: Unremarkable. PELVIC VISCERA: The uterus and adnexa are unremarkable. OSSEOUS STRUCTURES: Unremarkable. Other: Trace ascites in the perihepatic region. No significant ascites otherwise throughout the abdomen and pelvis. CT/CT abdomen pelvis w IV con IMPRESSION: 1. No acute process. 2. Cirrhotic liver with TIPS stent in place. Splenomegaly consistent with underlying portal hypertension. 3. Trace ascites in the perihepatic region. No significant ascites otherwise throughout the abdomen and pelvis. 4. Cholelithiasis. 5. Metallic clips seen in the antrum of the stomach.
[2023-07-25 16:33] VITALS: BP 106/41; BP 122/78; PULSE 70; PULSE 86; RESP 20; TEMP 36.8; O2SAT 100; BMI 47.6
--- NOTE | 2023-07-25 16:47 | ECG_ITS ---
Test Reason : ALTERED MENTAL Blood Pressure : / mmHG Vent. Rate : 068 BPM Atrial Rate : 068 BPM P-R Int : 166 ms QRS Dur : 074 ms QT Int : 384 ms P-R-T Axes : 008 041 006 degrees QTc Int : 408 ms Normal sinus rhythm Possible Anterolateral infarct , age undetermined Abnormal ECG When compared with ECG of 29-JUN-2023 20:29, T wave inversion no longer evident in Lateral leads Referred By: Abena Jaimes Electronically Signed By:MICHELLE FOSTER MD
--- NOTE | 2023-07-25 17:01 | ED_ITS ---
HPI - Altered Mental Status General Chief Complaint: Altered Mental Status Stated Complaint: onset dizziness/confusion, missed dialysis x4 days Time Seen by Provider: 07/25/23 16:32 History of Present Illness HPI narrative: Patient is a 48-year-old female history of SERVIN history of tip history of esophageal varices no history of renal insufficiency not on dialysis. Was at [facility]. Presented today with having generalized malaise weakness. Patient did not take her medication today. It has been taking her medication prior. There has no chest pain there is no focal weakness. There has no diaphoresis. Patient is from home. Had a previous history of GI bleed in the past. History of electrolyte abnormalities. History of obstructive sleep apnea Related Data Home Medications ?Medication ?Instructions ?Recorded ?Confirmed albuterol sulfate 90 mcg/actuation 2 puff inhalation Q6H PRN Wheezing 08/16/20 06/30/23 aerosol inhaler (Ventolin HFA) blood sugar diagnostic (FreeStyle #10 ea 08/16/20 06/04/23 Lite Strips) lancets 28 gauge (FreeStyle #100 ea 08/16/20 06/04/23 Lancets) levothyroxine 50 mcg tablet 50 mcg PO DAILY@0600 11/04/21 06/30/23 insulin glargine U-300 conc 300 75 unit subcut BEDTIME 04/30/22 06/30/23 unit/mL (3 mL) subcutaneous pen (Toujeo Max U-300 SoloStar) insulin lispro 100 unit/mL 26 - 30 unit subcut TIDAC 05/31/22 06/30/23 subcutaneous pen cholecalciferol (vitamin D3) 50 50 mcg PO DAILY 09/29/22 06/30/23 mcg (2,000 unit) capsule (Vitamin D3) flash glucose sensor (FreeStyle #1 ea 09/29/22 06/04/23 Brooke 2 Sensor kit) pen needle, diabetic 32 gauge x #1,200 ea 01/23/23 06/04/23 (Pentips) potassium chloride 20 mEq 20 meq PO DAILY 01/23/23 06/30/23 tablet,extended release(part/cryst) torsemide 20 mg tablet 60 mg PO DAILY 01/23/23 06/30/23 albuterol sulfate 2.5 mg/3 mL 2.5 mg inhalation QID PRN dyspnea 04/24/23 06/30/23 (0.083 %) solution for nebulization mometasone 200 mcg/actuation HFA 1 puff inhalation BID 04/24/23 06/30/23 aerosol inhaler (Asmanex HFA) eplerenone 25 mg tablet (Inspra) 25 mg PO DAILY 06/30/23 06/30/23 ondansetron 4 mg disintegrating 4 mg PO Q8H PRN Nausea And Vomiting 06/30/23 06/30/23 tablet rifaximin 550 mg tablet (Xifaxan) 550 mg PO BID 06/30/23 06/30/23 Previous Rx's ?Medication ?Instructions ?Recorded atorvastatin 20 mg tablet 20 mg PO DAILY #30 tabs 04/28/23 carvedilol 3.125 mg tablet 3.125 mg PO BID #60 tabs 04/28/23 lactulose 20 gram/30 mL oral 20 g (30 mL) PO BID #1,200 mL 06/08/23 solution ferrous sulfate 324 mg (65 mg 324 mg PO BID #60 tabs 07/03/23 iron) tablet,delayed release omeprazole 40 mg capsule,delayed 40 mg PO BID@0630,1630 #160 caps 07/03/23 release sucralfate 100 mg/mL oral 1 g (10 mL) PO QIDACHS 30 days 07/03/23 suspension #400 mL Allergies Allergy/AdvReac Type Severity Reaction Status Date / Time ibuprofen [From MOTRIN] Allergy Intermediate RASH Verified 07/25/23 16:45 penicillin V Allergy Mild hives Verified 07/25/23 16:45 codeine Allergy Unknown Verified 07/25/23 16:45 Rx- listed on H&P Review of Systems 2 Review of Systems: Positive generalized malaise weakness Yes all other systems are reviewed and are negative PMFSH Past Medical History Attestation statement: The following information was validated with the patient. Medical History Pancytopenia 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 Severe anemia S/P abdominal paracentesis 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 Status post abdominal paracentesis HTN (hypertension) AMY (obstructive sleep apnea) Dyslipidemia Asthma Non-toxic multinodular goiter Diabetic nephropathy associated with type 2 diabetes mellitus Elevated TSH Goiter Acromegaly Morbid obesity PCOS (polycystic ovarian syndrome) assisted (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 insulin Diabetes type 2, uncontrolled 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 Surgical History S/P TIPS (transjugular intrahepatic portosystemic shunt) Previous back surgery Hx of colonoscopy Hx of endoscopy Family History Family History Father Unknown family medical history Mother Hx of type 1 diabetes mellitus Social History Social History Household Members: Spouse Housing: House Do you presently have visiting nurse or other home services: Yes Alcohol intake: never Patient Tobacco Use Status: Tobacco use Unknown Tobacco use type: Cigarette Smoked in Last 30 Days: No Second Hand Smoke Exposure: Yes Use of substances other than those prescribed or required for medical reasons: No Substance Use Type: Marijuana Advance Directives: Yes Advance Directives on File: Yes Advance Directives Date on File: 07/06/23 service: No Current occupational status: disabled 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 Oriented X to. Patient thinks it is 1974. No acute distress. Eyes: Pupils equal, round and reactive to light. ENT: Pharynx normal. Neck: Normal inspection. Neck supple. No lymph nodes noted. No crepitus CVS: Normal heart rate and rhythm. Pulses normal. Normal S1 and S2 Respiratory: No respiratory distress. Breath sounds normal. No Wheezing. No rales Abdomen: Soft and nontender. No rigidity. No distention. good BS x4 Skin: Skin warm and dry. Normal skin color. Normal skin turgor. Extremities: No lower extremity edema. Neurovascular intact to all extremities. No Lacerations. No Rash Neuro: Oriented X 2. No motor deficit. No sensory deficit. Moving all extermities. No slurred speech Medications Administered Discontinued Medications Generic Name Dose Route Start Last Admin Trade Name Serenity PRN Reason Stop Dose Admin Iohexol 85 ml 07/25/23 22:41 07/25/23 22:42 Iohexol 350 Mg/Ml 100 Ml Infus..Btl IV 07/25/23 22:42 85 ml ONCE ONE Administration Lactulose 30 gm 07/25/23 23:06 07/25/23 23:21 Lactulose 20 Gm/30 Ml Solution PO 07/25/23 23:07 30 gm ONCE ONE Administration Medical Decision Making Medical Decision Making [facility] Narrative: Patient is 48 years old years old with a history of hepatic encephalopathy has not been compliant with medication presented today with having generalized malaise weakness. Patient's ammonia level is over 100. Have generalized malaise. CT scan of the head was grossly negative for any acute evidence of bleeding. CT scan of the abdomen pelvis showed only minimal amount of ascites. A dose of lactulose was given. Patient to be admitted for further evaluation. Patient's chest x-ray showed no gross infiltrate. TSH has been elevated at 6.63 this is most likely normal for patient. Her troponin was negative. test was negative no related issue. Hemoglobin is 7.8 however this is chronic. Her venous blood gas showed a pH of 7.45 with a normal pCO2 there has no CO2 retention. Kidney function is normal. Liver enzymes elevated which is baseline. Will admit patient for hepatic encephalopathy. Case discussed with hospitalist team. Urine showed no gross infection. Differential Diagnosis Differential Diagnoses: The differential diagnosis associated with the presentation includes Hepatic encephalopathy, infection, Admission/Observation Consideration of admission/observation: Escalation of care including admission/observation considered Consult Healthcare Provider Management of the patient was discussed with: Hospitalist Lab Data [facility] Lab Attestation statement: I reviewed the patient's lab results. 07/25/23 17:34 07/25/23 17:34 Labs: Lab Results 07/25/23 07/25/23 07/25/23 Range/Units 17:30 17:33 17:34 WBC 4.0 L (4.8-10.8) X10*3/uL RBC 2.34 L (4.20-5.50) X10*6/uL Hgb 7.8 L (12.0-16.0) g/dl Hct 22.8 L (37.0-47.0) % MCV 97.4 (80.0-98.0) fL MCH 33.3 H (27.0-33.0) pg MCHC 34.2 (31.0-35.0) g/dl RDW 18.4 H (11.0-16.0) % Plt Count 42 L (160-400) X10*3/uL MPV 11.5 (9.4-12.3) fL Immature Gran % (Auto) 0.2 (0.0-0.4) % Neut % (Auto) 73.9 H (45-73) % Lymph % (Auto) 11.0 L (20-40) % [place] % (Auto) 11.7 H (2-11) % Eos % (Auto) 2.5 (0-4) % Baso % (Auto) 0.7 (0-2) % Lymph # (Auto) 0.4 L (1.2-4.9) X10*3/uL [place] # (Auto) 0.5 (0.1-1.2) X10*3/uL Eos # (Auto) 0.1 (0.0-0.4) X10*3/uL Baso # (Auto) 0.0 (0.0-0.2) X10*3/uL Abs Immat Gran (auto) 0.01 (0.00-0.03) X10*3/uL Absolute Neuts (auto) 3.0 (2.0-8.3) x10*3/uL Absolute Nucleated RBC 0.000 (0.0-0.012) X10*3/uL Nucleated RBC % (auto) 0.0 (0.0-0.2) /100WBC PT 16.8 H (11.1-13.3) SEC INR 1.4 H (0.9-1.1) VBG pH (7.32-7.43) VBG pCO2 mmHg VBG pO2 mmHg VBG HCO3 (22-26) mmol/L VBG O2 Saturation % VBG Base Excess mmol/L Sodium 134 L (135-145) mmol/L Potassium 4.6 (3.3-5.1) mmol/L Chloride 104 (96-108) mmol/L Carbon Dioxide 25 (22-29) mmol/L Anion Gap 10 L (12-20) BUN 24 H (9-16) mg/dL Creatinine 1.28 (0.5-1.4) mg/dL Estim Creat Clear Calc 68.1 Estimated GFR 45 Random Glucose 149 H (60-115) mg/dL Calcium 8.9 (8.4-10.2) mg/dL Magnesium 2.3 (1.6-2.6) mg/dL Total Bilirubin 2.2 H (0.0-1.0) mg/dL Direct Bilirubin 0.9 H (0.0-0.5) mg/dL AST 50 H (5-31) U/L ALT 24 (0-31) U/L Alkaline Phosphatase 97 (39-117) U/L Ammonia 112 H (13-55) umol/L Troponin I High Sens 2.7 D (<3.5-17.0) ng/L Total Protein 6.5 (6.5-8.0) g/dL Albumin 2.4 L (3.5-5.0) g/dL TSH 6.63 H (0.32-4.0) uIU/mL Free T4 0.92 (0.71-1.85) ng/dL Beta HCG, Quant < 2 mIU/mL Urine Color Urine Appearance Urine pH (5.0-9.0) Ur Specific [place] (1.005-1.025) Urine Protein (Neg-Trace) mg/dL Urine Glucose (UA) (Negative) mg/dL Urine Ketones (Negative) mg/dL Urine Blood (Negative) Urine Nitrite (Negative) Ur Leukocyte Esterase (Negative) Urine RBC (0-2) /HPF Urine WBC (0-5) /HPF Ur Squamous Epith Cells (0-2) /HPF Urine Bacteria (None Seen) Hyaline Casts (0-2) /LPF Influenza Type A (PCR) NEGATIVE (Negative) Influenza Type B (PCR) NEGATIVE (Negative) RSV RNA Qual (PCR) NEGATIVE (Negative) SARS-CoV-2 RNA (RT-PCR) NEGATIVE (Negative) 07/25/23 07/25/23 Range/Units 18:35 20:45 WBC (4.8-10.8) X10*3/uL RBC (4.20-5.50) X10*6/uL Hgb (12.0-16.0) g/dl Hct (37.0-47.0) % MCV (80.0-98.0) fL MCH (27.0-33.0) pg MCHC (31.0-35.0) g/dl RDW (11.0-16.0) % Plt Count (160-400) X10*3/uL MPV (9.4-12.3) fL Immature Gran % (Auto) (0.0-0.4) % Neut % (Auto) (45-73) % Lymph % (Auto) (20-40) % [place] % (Auto) (2-11) % Eos % (Auto) (0-4) % Baso % (Auto) (0-2) % Lymph # (Auto) (1.2-4.9) X10*3/uL [place] # (Auto) (0.1-1.2) X10*3/uL Eos # (Auto) (0.0-0.4) X10*3/uL Baso # (Auto) (0.0-0.2) X10*3/uL Abs Immat Gran (auto) (0.00-0.03) X10*3/uL Absolute Neuts (auto) (2.0-8.3) x10*3/uL Absolute Nucleated RBC (0.0-0.012) X10*3/uL Nucleated RBC % (auto) (0.0-0.2) /100WBC PT (11.1-13.3) SEC INR (0.9-1.1) VBG pH 7.45 H (7.32-7.43) VBG pCO2 43 mmHg VBG pO2 35 mmHg VBG HCO3 30 H (22-26) mmol/L VBG O2 Saturation 52.0 % VBG Base Excess 5.7 mmol/L Sodium (135-145) mmol/L Potassium (3.3-5.1) mmol/L Chloride (96-108) mmol/L Carbon Dioxide (22-29) mmol/L Anion Gap (12-20) BUN (9-16) mg/dL Creatinine (0.5-1.4) mg/dL Estim Creat Clear Calc Estimated GFR Random Glucose (60-115) mg/dL Calcium (8.4-10.2) mg/dL Magnesium (1.6-2.6) mg/dL Total Bilirubin (0.0-1.0) mg/dL Direct Bilirubin (0.0-0.5) mg/dL AST (5-31) U/L ALT (0-31) U/L Alkaline Phosphatase (39-117) U/L Ammonia (13-55) umol/L Troponin I High Sens (<3.5-17.0) ng/L Total Protein (6.5-8.0) g/dL Albumin (3.5-5.0) g/dL TSH (0.32-4.0) uIU/mL Free T4 (0.71-1.85) ng/dL Beta HCG, Quant mIU/mL Urine Color Yellow Urine Appearance Clear Urine pH 8.5 (5.0-9.0) Ur Specific [place] 1.010 (1.005-1.025) Urine Protein Negative (Neg-Trace) mg/dL Urine Glucose (UA) Negative (Negative) mg/dL Urine Ketones Negative (Negative) mg/dL Urine Blood Trace H (Negative) Urine Nitrite Negative (Negative) Ur Leukocyte Esterase Small (1+) H (Negative) Urine RBC 3-5 H (0-2) /HPF Urine WBC 21-50 H (0-5) /HPF Ur Squamous Epith Cells 0-2 (0-2) /HPF Urine Bacteria 3+ (None Seen) Hyaline Casts 0-2 (0-2) /LPF Influenza Type A (PCR) (Negative) Influenza Type B (PCR) (Negative) RSV RNA Qual (PCR) (Negative) SARS-CoV-2 RNA (RT-PCR) (Negative) Independent Interpretation I performed an independent interpretation of an: EKG (Sinus heart rate is 70 SC QRS QTC normal there is diffuse T-wave flattening noted.), Plain X-Ray (Chest x- ray showed no gross infiltrate) and CT Scan (CT scan head was grossly negative for any acute fracture. No bleeding) Radiology Impression Discussion of test interpretation with radiology: I have reviewed the radiologist's reading. External Record Review External record reviewed: Inpatient record Chronic Conditions Hepatic encephalopathy, Servin, status post tips procedure Discharge Plan Discharge Clinical Impression: Acute hepatic encephalopathy Patient Disposition: Admitted As Inpatient Prescriptions: No Action insulin glargine U-300 conc [Toujeo Max U-300 SoloStar] 300 unit/mL (3 mL) insulin pen 75 unit subcut BEDTIME insulin lispro 100 unit/mL insulin pen 26 - 30 unit subcut TIDAC Rx Instructions: 26 units < blood sugar 200 30 units if blood sugar >200 ondansetron 4 mg Tablet,Disintegrating 4 mg PO Q8H PRN (Reason: Nausea And Vomiting) eplerenone [Inspra] 25 mg tablet 25 mg PO DAILY Xifaxan 550 mg tablet 550 mg PO BID sucralfate 100 mg/mL Suspension 1 g PO QIDACHS 30 Days Qty: 400 3RF omeprazole 40 mg Capsule,Delayed Release(Dr/Ec) 40 mg PO BID@0630,1630 Qty: 160 0RF ferrous sulfate 324 mg (65 mg iron) Tablet,Delayed Release (Dr/Ec) 324 mg PO BID Qty: 60 0RF albuterol sulfate 2.5 mg /3 mL (0.083 %) solution for nebulization 2.5 mg inhalation QID PRN (Reason: dyspnea) Asmanex HFA 200 mcg/actuation HFA aerosol inhaler 1 puff INHALATION BID atorvastatin 20 mg Tablet 20 mg PO DAILY Qty: 30 0RF carvedilol 3.125 mg Tablet 3.125 mg PO BID Qty: 60 0RF Protocol: Hold for SBP/HR < HOLD for SBP < : 90 HOLD for HR < : 60 lactulose 20 gram/30 mL solution 20 g PO BID Qty: 1200 0RF (DME) FreeStyle Lite Strips Strip See Rx Instructions .ROUTE .MEDSUPPLY Qty: 10 Rx Instructions: test 3x a day (DME) lancets [FreeStyle Lancets] 28 gauge misc See Rx Instructions .ROUTE .MEDSUPPLY Qty: 100 Rx Instructions: test 3x a day albuterol sulfate [Ventolin HFA] 90 mcg/actuation HFA aerosol inhaler 2 puff inhalation Q6H PRN (Reason: Wheezing) levothyroxine 50 mcg tablet 50 mcg PO DAILY@0600 cholecalciferol (vitamin D3) [Vitamin D3] 50 mcg (2,000 unit) capsule 50 mcg PO DAILY (DME) FreeStyle Brooke 2 Sensor Kit See Rx Instructions .ROUTE DAILY Qty: 1 Rx Instructions: As directed (DME) pen needle, diabetic [Pentips] 32 gauge x /32 needle See Rx Instructions .ROUTE .MEDSUPPLY Qty: 1200 Rx Instructions: As directed potassium chloride 20 mEq tablet,ER particles/crystals 20 meq PO DAILY torsemide 20 mg tablet 60 mg PO DAILY Print Language: Indian
[2023-07-25 17:39] LABS: MANUAL DIFF FLAG NO
[2023-07-25 17:46] LABS: Basophils Percent Auto 0.7 % (0-2); Eosinophils Absolute Auto 0.1 X10*3/uL (0.0-0.4); Eosinophils Percent Auto 2.5 % (0-4); Hematocrit 22.8 % (37.0-47.0); Hemoglobin 7.8 g/dl (12.0-16.0); Imm Gran Abs Auto 0.01 X10*3/uL (0.00-0.03); Imm Gran Pct Auto 0.2 % (0.0-0.4); Lymphocytes Absolute Auto 0.4 X10*3/uL (1.2-4.9); Mean Corpuscular HGB Conc 34.2 g/dl (31.0-35.0); Mean Corpuscular Hemoglobin 33.3 pg (27.0-33.0); Mean Corpuscular Volume 97.4 fL (80.0-98.0); Mean Platelet Volume 11.5 fL (9.4-12.3); Monocytes Absolute Auto 0.5 X10*3/uL (0.1-1.2); Monocytes Percent Auto 11.7 % (2-11); Neutrophils Percent Auto 73.9 % (45-73); Red Blood Count 2.34 X10*6/uL (4.20-5.50); Red Cell Distribution Width 18.4 % (11.0-16.0)
[2023-07-25 17:51] LABS: Ammonia 112 umol/L (13-55)
[2023-07-25 17:58] LABS: INTERNATIONAL NORM RATIO 1.4 (0.9-1.1); Platelet Count 42 X10*3/uL (160-400); Prothrombin Time 16.8 SEC (11.1-13.3)
[2023-07-25 18:06] LABS: Alanine Aminotransferase 24 U/L (0-31); Albumin Level 2.4 g/dL (3.5-5.0); Alkaline Phosphatase 97 U/L (39-117); Anion Gap 10 (12-20); Aspartate Amino Transferase 50 U/L (5-31); Bilirubin Direct 0.9 mg/dL (0.0-0.5); Bilirubin Total 2.2 mg/dL (0.0-1.0); Blood Urea Nitrogen 24 mg/dL (9-16); Calcium 8.9 mg/dL (8.4-10.2); Carbon Dioxide 25 mmol/L (22-29); Chloride 104 mmol/L (96-108); Creatinine Clr Calc Pharmacy 68.1; Estimated Glomerular Filt Rate 45; Glucose Random 149 mg/dL (60-115); Magnesium 2.3 mg/dL (1.6-2.6); Potassium 4.6 mmol/L (3.3-5.1); Sodium 134 mmol/L (135-145); Total Protein 6.5 g/dL (6.5-8.0); Troponin-I High Sensitivity 2.7 ng/L (<3.5-17.0)
[2023-07-25 18:21] LABS: HCG Quantitative < 2 mIU/mL; TSH reflex Free T4 6.63 uIU/mL (0.32-4.0)
[2023-07-25 18:22] LABS: Influenza A PCR NEGATIVE (Negative); Influenza B PCR NEGATIVE (Negative); Resp Syncy Virus RNA Qual PCR NEGATIVE (Negative); SARS COV2 PCR INHOUSE NEGATIVE (Negative)
[2023-07-25 18:43] LABS: Appearance Urine Clear; Color Urine Yellow; Glucose Urine UA Negative (Negative); Leukocyte Esterase Urine Small (1+) (Negative); Nitrite Urine Negative (Negative); PH 8.5 (5.0-9.0); UMIC TRIGGER UACC YES; Urine Blood Trace (Negative); Urine Ketones Negative (Negative); Urine Protein Negative (Neg-Trace)
[2023-07-25 18:45] LABS: Bacteria Urine 3+ (None Seen); Hyaline Casts Urine 0-2 /LPF (0-2); Squamous Epithelial Cell Urine 0-2 /HPF (0-2); UACC Culture Trigger YES; WBC Urine 21-50 /HPF (0-5)
[2023-07-25 18:58] LABS: Free T4 (Free Thyroxine) 0.92 ng/dL (0.71-1.85)
[2023-07-25 19:01] VITALS: BP 100/61; PULSE 68; RESP 18; TEMP 36.6; O2SAT 99
--- NOTE | 2023-07-25 19:39 | PC.NURSE ---
pt comes in with confusion per pt . pt called and stated to t/w that pt is on liver transplant list. pt was just discharged yesterday (thursday) from [facility] where she received a blood transfusion. pt sts the pt became confused after the blood transfusion which has happened before. labs obtained. 20G IV placed to LAC. pt able to pivot to commode to give urine sample. sent to lab. pt changed over and now resting quietly on stretcher in no apparent distress. rr even/unlabored. call cash within reach. plan of care ongoing.
[2023-07-25 20:00] VITALS: BP 108/54; PULSE 69; RESP 18; TEMP 36.8; O2SAT 99
--- NOTE | 2023-07-25 20:46 | MHC.EDTECH ---
Pt was assisted with 1 stand by assist to the bedside commode. They emptied their bladder andd needed assistance bringing legs into bed.
[2023-07-25 20:50] LABS: VBG Base Excess 5.7 mmol/L; VBG HCO3 30 mmol/L (22-26); VBG pCO2 43 mmHg; VBG pH 7.45 (7.32-7.43); VBG pO2 35 mmHg
[2023-07-25 20:50] LABS: Venous Blood Gas Refer to POC result
[2023-07-25] MEDS: iohexoL 350 MG/ML 100 ML INFUS..BTL 85 ML IV (22:42)
[2023-07-25 22:47] VITALS: BP 116/41; PULSE 67; RESP 17; TEMP 36.7; O2SAT 100
[2023-07-25] MEDS: Lactulose 20 GM/30 ML SOLUTION 30 GM PO (23:21)
[2023-07-25 23:33] VITALS: BP 109/49; PULSE 69; RESP 15; TEMP 36.8; O2SAT 100
[2023-07-26 01:58] VITALS: BP 118/55; PULSE 70; RESP 16; TEMP 36.6; O2SAT 100
[2023-07-26 02:09] LABS: Glucose, Whole Blood 104 mg/dL (60-115)
[2023-07-26] MEDS: cefTRIAXone sodium 1 GM in 0.9 % Sodium Chloride 50 ML IV ×2 (03:30→15:50)
--- NOTE | 2023-07-26 04:48 | PC.NURSE ---
After multiple attempts to provide purewik for pt, pt unable to manage device., Pt 2 assist to commode.
[2023-07-26] MEDS: Levothyroxine Sodium 75 MCG TABLET PO (06:01)
[2023-07-26 06:22] VITALS: BP 119/57; PULSE 77; RESP 14; O2SAT 100
[2023-07-26 07:15] LABS: Glucose, Whole Blood 158 mg/dL (60-115)
--- NOTE | 2023-07-26 07:57 | P.HPHOSP_ITS ---
History of Present Illness Date of Service: 07/26/23 Attending physician on admission: Jeff Mack Chief Complaint: Confusion Ema Aguilar is a 48 years old woman with past medical history significant for liver cirrhosis secondary to SERVIN (liver transplant) with portal hypertension (esophageal varices, ascites, s/p TIPS), morbid obesity, thrombocytopenia, hypothyroidism, type 2 DM and obstructive sleep apnea presents to emergency department after she was asked to be confused. provided part of the HPI over the phone. mentioned that the patient has not been taking her lactulose and diuretics. She denied any headache, chest pain, shortness on breath, cough, abdominal pain, nausea, vomiting or diarrhea. Denies fever or chills. Patient denied alcohol abuse, illicit drug use or tobacco smoking. In the ED, she was found to have stable vital signs. Blood workup showed pancytopenia which is at baseline. INR is 1.4. There is mild hyponatremia. Bilirubin and AST are elevated. TSH is 6.62 with normal free T4. His CT scan is unremarkable. Abdominal pelvis CT scan showed no acute process. Viral testing for COVID-19, influenza and RSV is negative. ED tx: Lactulose 30 mg PO, ceftriaxone 1 g IV Review of Systems 2 Review of Systems: All 12 systems were reviewed and normal except as noted in HPI. [facility] Medical History Pancytopenia 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 Severe anemia S/P abdominal paracentesis 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 Status post abdominal paracentesis HTN (hypertension) AMY (obstructive sleep apnea) Dyslipidemia Asthma Non-toxic multinodular goiter Diabetic nephropathy associated with type 2 diabetes mellitus Elevated TSH Goiter Acromegaly Morbid obesity PCOS (polycystic ovarian syndrome) nursing home (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 insulin Diabetes type 2, uncontrolled 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 Family History Father Unknown family medical history Mother Hx of type 1 diabetes mellitus Surgical History S/P TIPS (transjugular intrahepatic portosystemic shunt) Previous back surgery Hx of colonoscopy Hx of endoscopy Social History Household Members: Spouse Housing: House Do you presently have visiting nurse or other home services: Yes Alcohol intake: never Patient Tobacco Use Status: Tobacco use Unknown Tobacco use type: Cigarette Smoked in Last 30 Days: No Second Hand Smoke Exposure: Yes Use of substances other than those prescribed or required for medical reasons: No Substance Use Type: Marijuana Advance Directives: Yes Advance Directives on File: Yes Advance Directives Date on File: 07/06/23 service: No Current occupational status: disabled 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 Meds Allergies Allergy/AdvReac Type Severity Reaction Status Date / Time ibuprofen [From MOTRIN] Allergy Intermediate RASH Verified 07/25/23 16:45 penicillin V Allergy Mild hives Verified 07/25/23 16:45 codeine Allergy Unknown Verified 07/25/23 16:45 Rx- listed on H&P Active Medications: Current Medications Albuterol Sulfate (Albuterol Sulfate (0.083%) 2.5 Mg/3 Ml Vial.Neb) 2.5 mg INHALE QID PRN PRN Reason: dyspnea Fluticasone Propionate (Fluticasone Propionate 250 Mcg Blst.W.Dev) 1 puff INHALE RBID [facility] Last Admin: 07/26/23 07:46 Dose: Not Given Ceftriaxone Sodium 1 gm/ (Sodium Chloride) 50 mls @ 100 mls/hr IV Q12H [facility] Last Infusion: 07/26/23 04:13 Dose: Infused Lactulose (Lactulose 20 Gm/30 Ml Solution) 20 gm PO TID [facility] Levothyroxine Sodium (Levothyroxine Sodium 75 Mcg Tablet) 75 mcg PO DAILY@0630 [facility] Last Admin: 07/26/23 06:01 Dose: 75 mcg Non-Formulary Medication (Eplerenone [Inspra]) 25 mg PO DAILY [facility] Rifaximin (Rifaximin 550 Mg Tablet) 550 mg PO BID [facility] Sodium Chloride (0.9 % Sodium Chloride Flush 3 Ml Syringe) 3 ml IVFLUSH QSHIFT [facility] Torsemide (Torsemide 20 Mg Tablet) 60 mg PO DAILY [facility]; Protocol Home Medications ?Medication ?Instructions ?Recorded ?Confirmed ?Last Taken ?Type albuterol sulfate 90 mcg/actuation 2 puff inhalation Q6H PRN Wheezing 08/16/20 07/26/23 06/04/23 History aerosol inhaler (Ventolin HFA) blood sugar diagnostic (Susu #10 ea 08/16/20 06/04/23 Unknown History Lite Strips) lancets 28 gauge (FreeStyle #100 ea 08/16/20 06/04/23 Unknown History Lancets) levothyroxine 50 mcg tablet 50 mcg PO DAILY@0600 11/04/21 06/30/23 06/29/23 History insulin glargine U-300 conc 300 75 unit subcut BEDTIME 04/30/22 06/30/23 06/29/23 History unit/mL (3 mL) subcutaneous pen (Toujeo Max U-300 SoloStar) insulin lispro 100 unit/mL See Rx Instructions .Route .COMPLEX 05/31/22 06/30/23 06/29/23 History subcutaneous pen cholecalciferol (vitamin D3) 50 50 mcg PO DAILY 09/29/22 06/30/23 06/29/23 History mcg (2,000 unit) capsule (Vitamin D3) flash glucose sensor (FreeStyle #1 ea 09/29/22 06/04/23 Unknown History Brooke 2 Sensor kit) pen needle, diabetic 32 gauge x #1,200 ea 01/23/23 06/04/23 Unknown History (Pentips) potassium chloride 20 mEq 20 meq PO DAILY 01/23/23 06/30/23 06/29/23 History tablet,extended release(part/cryst) albuterol sulfate 2.5 mg/3 mL 2.5 mg inhalation QID PRN dyspnea 04/24/23 07/26/23 06/04/23 History (0.083 %) solution for nebulization mometasone 200 mcg/actuation HFA 1 puff inhalation BID 04/24/23 07/26/23 06/29/23 History aerosol inhaler (Asmanex HFA) ondansetron 4 mg disintegrating 4 mg PO Q8H PRN Nausea And Vomiting 06/30/23 06/30/23 Unknown History tablet eplerenone 25 mg tablet (Inspra) 25 mg PO DAILY 07/26/23 07/26/23 Unknown History lactulose 10 gram/15 mL oral 10 g PO TID 07/26/23 07/26/23 Unknown History solution rifaximin 550 mg tablet (Xifaxan) 550 mg PO BID 07/26/23 07/26/23 Unknown History torsemide 20 mg tablet 60 mg PO DAILY 07/26/23 07/26/23 Unknown History Physical Exam 2 Vital Signs and Narrative: Vital Signs: Last Vital Signs Temp 97.9 F 07/26/23 01:58 Pulse 77 07/26/23 06:22 Resp 14 07/26/23 06:22 BP 119/57 L 07/26/23 06:22 Pulse Ox 100 07/26/23 06:22 O2 Del Method Room Air 07/26/23 06:22 BMI result Body Mass Index 47.6 Constitutional - Awake and Alert, No apparent distress. HEENT - Pupils equally round. Normal sclerae. Moist oral mucosa. Facial hair Heart - S1S2, RRR, No edema Lungs - Normal lung expansion, Normal respiratory effort, No respiratory distress, CTA bilaterally Abdomen - NT / ND; +BS; No rebound or guarding. Positive fluid wave Extremities - no calf tenderness bilaterally, no swelling Musculoskeletal - Normal inspection, normal ROM Skin - Warm/Dry Neurological - Alert & oriented x3. No asterixis. No focal weakness. Normal speech. Psychological - Appropriate affect Results Labs 07/25/23 17:34 07/25/23 17:34 Labs: Laboratory Results - last 24 hr 07/25/23 07/25/23 07/25/23 17:30 17:33 17:34 MCV 97.4 MCH 33.3 H MCHC 34.2 RDW 18.4 H Plt Count 42 L MPV 11.5 Immature Gran % (Auto) 0.2 Neut % (Auto) 73.9 H Lymph % (Auto) 11.0 L [place] % (Auto) 11.7 H Eos % (Auto) 2.5 Baso % (Auto) 0.7 Lymph # (Auto) 0.4 L [place] # (Auto) 0.5 Eos # (Auto) 0.1 Baso # (Auto) 0.0 Abs Immat Gran (auto) 0.01 Absolute Neuts (auto) 3.0 Absolute Nucleated RBC 0.000 Nucleated RBC % (auto) 0.0 PT 16.8 H INR 1.4 H VBG pH VBG pCO2 VBG pO2 VBG HCO3 VBG O2 Saturation VBG Base Excess Anion Gap 10 L Estim Creat Clear Calc 68.1 Estimated GFR 45 POC Glucose Random Glucose 149 H Calcium 8.9 Magnesium 2.3 Total Bilirubin 2.2 H Direct Bilirubin 0.9 H AST 50 H ALT 24 Alkaline Phosphatase 97 Ammonia 112 H Troponin I High Sens 2.7 D Total Protein 6.5 Albumin 2.4 L TSH 6.63 H Free T4 0.92 Beta HCG, Quant < 2 Urine Color Urine Appearance Urine pH Ur Specific [place] Urine Protein Urine Glucose (UA) Urine Ketones Urine Blood Urine Nitrite Ur Leukocyte Esterase Urine RBC Urine WBC Ur Squamous Epith Cells Urine Bacteria Hyaline Casts Influenza Type A (PCR) NEGATIVE Influenza Type B (PCR) NEGATIVE RSV RNA Qual (PCR) NEGATIVE SARS-CoV-2 RNA (RT-PCR) NEGATIVE 07/25/23 07/25/23 07/26/23 18:35 20:45 02:04 MCV MCH MCHC RDW Plt Count MPV Immature Gran % (Auto) Neut % (Auto) Lymph % (Auto) [place] % (Auto) Eos % (Auto) Baso % (Auto) Lymph # (Auto) [place] # (Auto) Eos # (Auto) Baso # (Auto) Abs Immat Gran (auto) Absolute Neuts (auto) Absolute Nucleated RBC Nucleated RBC % (auto) PT INR VBG pH 7.45 H VBG pCO2 43 VBG pO2 35 VBG HCO3 30 H VBG O2 Saturation 52.0 VBG Base Excess 5.7 Anion Gap Estim Creat Clear Calc Estimated GFR POC Glucose 104 Random Glucose Calcium Magnesium Total Bilirubin Direct Bilirubin AST ALT Alkaline Phosphatase Ammonia Troponin I High Sens Total Protein Albumin TSH Free T4 Beta HCG, Quant Urine Color Yellow Urine Appearance Clear Urine pH 8.5 Ur Specific [place] 1.010 Urine Protein Negative Urine Glucose (UA) Negative Urine Ketones Negative Urine Blood Trace H Urine Nitrite Negative Ur Leukocyte Esterase Small (1+) H Urine RBC 3-5 H Urine WBC 21-50 H Ur Squamous Epith Cells 0-2 Urine Bacteria 3+ Hyaline Casts 0-2 Influenza Type A (PCR) Influenza Type B (PCR) RSV RNA Qual (PCR) SARS-CoV-2 RNA (RT-PCR) 07/26/23 07:11 MCV MCH MCHC RDW Plt Count MPV Immature Gran % (Auto) Neut % (Auto) Lymph % (Auto) [place] % (Auto) Eos % (Auto) Baso % (Auto) Lymph # (Auto) [place] # (Auto) Eos # (Auto) Baso # (Auto) Abs Immat Gran (auto) Absolute Neuts (auto) Absolute Nucleated RBC Nucleated RBC % (auto) PT INR VBG pH VBG pCO2 VBG pO2 VBG HCO3 VBG O2 Saturation VBG Base Excess Anion Gap Estim Creat Clear Calc Estimated GFR POC Glucose 158 H Random Glucose Calcium Magnesium Total Bilirubin Direct Bilirubin AST ALT Alkaline Phosphatase Ammonia Troponin I High Sens Total Protein Albumin TSH Free T4 Beta HCG, Quant Urine Color Urine Appearance Urine pH Ur Specific [place] Urine Protein Urine Glucose (UA) Urine Ketones Urine Blood Urine Nitrite Ur Leukocyte Esterase Urine RBC Urine WBC Ur Squamous Epith Cells Urine Bacteria Hyaline Casts Influenza Type A (PCR) Influenza Type B (PCR) RSV RNA Qual (PCR) SARS-CoV-2 RNA (RT-PCR) Imaging Radiologist's Impressions: Impressions Chest X-Ray 07/25/23 18:05 IMPRESSION: Hypoexpanded lungs with crowding of bronchovascular markings. Possibility of mild interstitial edema or atypical/viral infection cannot be excluded. No evidence of changes of overt pulmonary edema or dense focal consolidation. Abdomen/Pelvis CT 07/25/23 23:15 IMPRESSION: 1. No acute process. 2. Cirrhotic liver with TIPS stent in place. Splenomegaly consistent with underlying portal hypertension. 3. Trace ascites in the perihepatic region. No significant ascites otherwise throughout the abdomen and pelvis. 4. Cholelithiasis. 5. Metallic clips seen in the antrum of the stomach. Head CT 07/25/23 23:15 IMPRESSION: No acute intracranial pathology. Assessment and Plan (1) Acute hepatic encephalopathy: Status: Acute (2) Thrombocytopenia: Status: Chronic (3) Anemia: Qualifiers: Anemia type: unspecified type Qualified Code(s): D64.9 - Anemia, unspecified Status: Acute Plan Ema Aguilar is a 48 years old woman admitted with: * Hepatic encephalopathy; noncompliant with lactulose intake. Admit to hospitalist service. Restart treatment with lactulose. Continue rifaximin 550 mg p.o. b.i.d. * Urinary tract infection. Continue ceftriaxone IV. Urine culture obtained - will follow results. * Pancytopenia secondary to chronic liver disease; at baseline. Continue to monitor. * Hypothyroidism. TSH continue to worsen. Increase levothyroxine to 75 mcg daily. * 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/liver disease due to SERVIN s/p TIPS. Liver transplant list. Continue torsemide and eplerenone. Low-salt diet. * Obstructive sleep apnea. Not using CPAP. * Morbid obesity. BMI 47.6 kg/m2. Weight loss. * Type 2 diabetes mellitus. Blood glucose monitoring. Insulin sliding scale. DVT prophylaxis: SCD Code status: Full Patient will need hospitalization for hepatic encephalopathy treatment with lactulose rifaximin. Patient will also need close monitoring of vital signs, blood work and mental status. Quality Stroke Does the patient have a stroke diagnosis?: No VTE Prior VTE?: No VTE Risk Level:: Medical - moderate - high VTE Device Contraindication: N/A - Device Ordered VTE Drug Contraindication: Treatment Not Indicated
[2023-07-26 08:00] VITALS: BP 118/58; PULSE 77; RESP 18; TEMP 36.1; O2SAT 100
[2023-07-26] MEDS: Torsemide 20 MG TABLET 60 MG PO (08:07)
[2023-07-26] MEDS: Lactulose 20 GM/30 ML SOLUTION PO ×3 (08:07→20:03)
[2023-07-26] MEDS: 0.9 % Sodium Chloride Flush 3 ML SYRINGE IVFLUSH ×3 (08:08→20:05)
[2023-07-26 08:53] LABS: Glucose, Whole Blood 139 mg/dL (60-115)
--- NOTE | 2023-07-26 09:11 | PHA.MEDREC ---
Pharmacy Consult ? Medication Reconciliation Pharmacy has completed the medication reconciliation. Utilized digital campaign specialist services. Patient confirmed all meds, but could not recall the name of any meds (Had to be provided name to recognize). Per patient, no longer taking carvedilol or albuterol nebulizer.
--- NOTE | 2023-07-26 09:14 | P.PNIM_ITS ---
Subjective Subjective Date of Service: 07/26/23 Interval History: f/u on hepatic encephalopathy, she knows she is in hospital, knows date and self just had a large emesis Physical Exam 2 Vital Signs: Vital Signs: Last Vital Signs Temp 96.9 F 07/26/23 08:00 Pulse 77 07/26/23 08:00 Resp 18 07/26/23 08:00 BP 118/58 L 07/26/23 08:00 Pulse Ox 100 07/26/23 08:00 O2 Del Method Room Air 07/26/23 08:00 BMI result Body Mass Index 47.6 General: AO X 3, no acute distress Resp: CTA bilateral CVS: S1,S2,RRR GI: +BS, NT, soft, no distention Skin: No rash Neuro: motor grossly intact Psych: appropriate affect Objective Data Active Medications Albuterol Sulfate (Albuterol Sulfate (0.083%) 2.5 Mg/3 Ml Vial.Neb) 2.5 mg INHALE QID PRN PRN Reason: dyspnea Fluticasone Propionate (Fluticasone Propionate 250 Mcg Blst.W.Dev) 1 puff INHALE RBID [facility] Last Admin: 07/26/23 07:46 Dose: Not Given Documented By: JA Non-Admin Reason: med unavail. pharmacy called Glucose (Glucose Gel 15 Gm Gel..Gram.) 15 gm PO Q15M PRN; Protocol PRN Reason: per Hypoglycemia Standing Ord. Ceftriaxone Sodium 1 gm/ (Sodium Chloride) 50 mls @ 100 mls/hr IV Q12H [facility] Last Infusion: 07/26/23 04:13 Dose: Infused Documented By: KERRY Dextrose (D10) 250 mls @ 750 mls/hr IV Q15M PRN; Protocol PRN Reason: per Hypoglycemia Standing Ord. Insulin Human Lispro (Insulin Lispro 100 Unit/Ml 3 Ml Vial) 0 unit SUBCUT QIDACHS [facility]; Protocol Lactulose (Lactulose 20 Gm/30 Ml Solution) 20 gm PO TID [facility] Last Admin: 07/26/23 08:07 Dose: 20 gm Documented By: MICHAEL Levothyroxine Sodium (Levothyroxine Sodium 75 Mcg Tablet) 75 mcg PO DAILY@0630 [facility] Last Admin: 07/26/23 06:01 Dose: 75 mcg Documented By: HO.RISLEYS Non-Formulary Medication (Eplerenone [Inspra]) 25 mg PO DAILY [facility] Ondansetron HCl (Ondansetron Hcl 4 Mg/2 Ml Vial) 4 mg IVPUSH Q8H PRN PRN Reason: Nausea and Vomiting Rifaximin (Rifaximin 550 Mg Tablet) 550 mg PO BID [facility] Sodium Chloride (0.9 % Sodium Chloride Flush 3 Ml Syringe) 3 ml IVFLUSH QSHIFT [facility] Last Admin: 07/26/23 08:08 Dose: 3 ml Documented By: MICHAEL Torsemide (Torsemide 20 Mg Tablet) 60 mg PO DAILY [facility]; Protocol Last Admin: 07/26/23 08:07 Dose: 60 mg Documented By: MICHAEL Labs 07/25/23 17:34 07/25/23 17:34 Labs: Laboratory Results - last 24 hr 07/25/23 07/25/23 07/25/23 17:30 17:33 17:34 MCV 97.4 MCH 33.3 H MCHC 34.2 RDW 18.4 H Plt Count 42 L MPV 11.5 Immature Gran % (Auto) 0.2 Neut % (Auto) 73.9 H Lymph % (Auto) 11.0 L [place] % (Auto) 11.7 H Eos % (Auto) 2.5 Baso % (Auto) 0.7 Lymph # (Auto) 0.4 L [place] # (Auto) 0.5 Eos # (Auto) 0.1 Baso # (Auto) 0.0 Abs Immat Gran (auto) 0.01 Absolute Neuts (auto) 3.0 Absolute Nucleated RBC 0.000 Nucleated RBC % (auto) 0.0 PT 16.8 H INR 1.4 H VBG pH VBG pCO2 VBG pO2 VBG HCO3 VBG O2 Saturation VBG Base Excess Anion Gap 10 L Estim Creat Clear Calc 68.1 Estimated GFR 45 POC Glucose Random Glucose 149 H Calcium 8.9 Magnesium 2.3 Total Bilirubin 2.2 H Direct Bilirubin 0.9 H AST 50 H ALT 24 Alkaline Phosphatase 97 Ammonia 112 H Troponin I High Sens 2.7 D Total Protein 6.5 Albumin 2.4 L TSH 6.63 H Free T4 0.92 Beta HCG, Quant < 2 Urine Color Urine Appearance Urine pH Ur Specific [place] Urine Protein Urine Glucose (UA) Urine Ketones Urine Blood Urine Nitrite Ur Leukocyte Esterase Urine RBC Urine WBC Ur Squamous Epith Cells Urine Bacteria Hyaline Casts Influenza Type A (PCR) NEGATIVE Influenza Type B (PCR) NEGATIVE RSV RNA Qual (PCR) NEGATIVE SARS-CoV-2 RNA (RT-PCR) NEGATIVE 07/25/23 07/25/23 07/26/23 18:35 20:45 02:04 MCV MCH MCHC RDW Plt Count MPV Immature Gran % (Auto) Neut % (Auto) Lymph % (Auto) [place] % (Auto) Eos % (Auto) Baso % (Auto) Lymph # (Auto) [place] # (Auto) Eos # (Auto) Baso # (Auto) Abs Immat Gran (auto) Absolute Neuts (auto) Absolute Nucleated RBC Nucleated RBC % (auto) PT INR VBG pH 7.45 H VBG pCO2 43 VBG pO2 35 VBG HCO3 30 H VBG O2 Saturation 52.0 VBG Base Excess 5.7 Anion Gap Estim Creat Clear Calc Estimated GFR POC Glucose 104 Random Glucose Calcium Magnesium Total Bilirubin Direct Bilirubin AST ALT Alkaline Phosphatase Ammonia Troponin I High Sens Total Protein Albumin TSH Free T4 Beta HCG, Quant Urine Color Yellow Urine Appearance Clear Urine pH 8.5 Ur Specific [place] 1.010 Urine Protein Negative Urine Glucose (UA) Negative Urine Ketones Negative Urine Blood Trace H Urine Nitrite Negative Ur Leukocyte Esterase Small (1+) H Urine RBC 3-5 H Urine WBC 21-50 H Ur Squamous Epith Cells 0-2 Urine Bacteria 3+ Hyaline Casts 0-2 Influenza Type A (PCR) Influenza Type B (PCR) RSV RNA Qual (PCR) SARS-CoV-2 RNA (RT-PCR) 07/26/23 07/26/23 07:11 08:50 MCV MCH MCHC RDW Plt Count MPV Immature Gran % (Auto) Neut % (Auto) Lymph % (Auto) [place] % (Auto) Eos % (Auto) Baso % (Auto) Lymph # (Auto) [place] # (Auto) Eos # (Auto) Baso # (Auto) Abs Immat Gran (auto) Absolute Neuts (auto) Absolute Nucleated RBC Nucleated RBC % (auto) PT INR VBG pH VBG pCO2 VBG pO2 VBG HCO3 VBG O2 Saturation VBG Base Excess Anion Gap Estim Creat Clear Calc Estimated GFR POC Glucose 158 H 139 H Random Glucose Calcium Magnesium Total Bilirubin Direct Bilirubin AST ALT Alkaline Phosphatase Ammonia Troponin I High Sens Total Protein Albumin TSH Free T4 Beta HCG, Quant Urine Color Urine Appearance Urine pH Ur Specific [place] Urine Protein Urine Glucose (UA) Urine Ketones Urine Blood Urine Nitrite Ur Leukocyte Esterase Urine RBC Urine WBC Ur Squamous Epith Cells Urine Bacteria Hyaline Casts Influenza Type A (PCR) Influenza Type B (PCR) RSV RNA Qual (PCR) SARS-CoV-2 RNA (RT-PCR) Assessment and Plan (1) Acute hepatic encephalopathy: Status: Acute (2) Anemia: Status: Acute Plan 48-year-old female with pertinent history of SERVIN cirrhosis status post TIPS, insulin-dependent diabetes mellitus, essential hypertension, mixed hyperlipidemia, AMY not on CPAP, mild intermittent asthma, hypothyroidismad admitted with AMS d/t hepatic encephalopathy Hepatic encephalopathy; noncompliant with lactulose intake and possible UTI. She is more clear -restarted on lactulose + Rifaximin 550 mg p.o. b.i.d. Urinary tract infection. Continue ceftriaxone IV. follow culture Pancytopenia secondary to chronic liver disease; at baseline. Continue to monitor. Hypothyroidism. TSH continue to worsen. dIncrease levothyroxine to 75 mcg daily. 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/liver disease due to SERVIN s/p TIPS. Liver transplant list. Continue torsemide and eplerenone. Low-salt diet. Obstructive sleep apnea. Not using CPAP. Morbid obesity. BMI 47.6 kg/m2. Weight loss advised Type 2 diabetes mellitus. Blood glucose monitoring. Insulin sliding scale. DVT prophylaxis: SCD Code status: Full Patient will need hospitalization for hepatic encephalopathy treatment with lactulose rifaximin and monitoring of mental state. Quality Stroke Does the patient have a stroke diagnosis?: No VTE Prior VTE?: No VTE Risk Level:: Medical - moderate - high VTE Device Contraindication: N/A - Device Ordered VTE Drug Contraindication: Treatment Not Indicated
[2023-07-26 11:01] LABS: Alanine Aminotransferase 22 U/L (0-31); Albumin Level 2.2 g/dL (3.5-5.0); Alkaline Phosphatase 90 U/L (39-117); Anion Gap 9 (12-20); Aspartate Amino Transferase 46 U/L (5-31); Bilirubin Total 2.1 mg/dL (0.0-1.0); Blood Urea Nitrogen 23 mg/dL (9-16); Calcium 8.4 mg/dL (8.4-10.2); Carbon Dioxide 25 mmol/L (22-29); Chloride 106 mmol/L (96-108); Creatinine Clr Calc Pharmacy 72.6; Estimated Glomerular Filt Rate 48; Glucose Random 180 mg/dL (60-115); Potassium 4.3 mmol/L (3.3-5.1); Sodium 136 mmol/L (135-145); Total Protein 5.8 g/dL (6.5-8.0)
[2023-07-26 11:25] LABS: Glucose, Whole Blood 140 mg/dL (60-115)
[2023-07-26] MEDS: rifAXIMin 550 MG TABLET PO ×2 (11:31→20:03)
--- NOTE | 2023-07-26 11:57 | HE.PHANOTE ---
M confirmation form patient takes 85 mg from [facility]. last dose 07/25/23 at 1117am
--- NOTE | 2023-07-26 13:49 | MHC.CM.PN ---
PT LIVES WITH IS ACTIVE W/[facility] WHO PROVIDES DAILY SN ,AND PT PT WILL NEED AMB TRANSPORT HOME WITH 02
[2023-07-26 15:36] VITALS: BP 117/56; PULSE 84; RESP 18; TEMP 36.2; O2SAT 100
[2023-07-26 16:15] LABS: Glucose, Whole Blood 210 mg/dL (60-115)
[2023-07-26] MEDS: Insulin Lispro 100 UNIT/ML 3 ML VIAL SUBCUT (16:43)
[2023-07-26] MEDS: ondansetron HCL 4 MG/2 ML VIAL IVPUSH (18:44)
[2023-07-26 19:49] LABS: Glucose, Whole Blood 137 mg/dL (60-115)
[2023-07-26 19:59] VITALS: BP 114/53; PULSE 76; RESP 18; TEMP 36.2; O2SAT 98
[2023-07-27] MEDS: cefTRIAXone sodium 1 GM in 0.9 % Sodium Chloride 50 ML IV (02:43)
[2023-07-27 03:15] VITALS: BP 139/60; PULSE 85; RESP 18; TEMP 36.4; O2SAT 98
[2023-07-27] MEDS: Levothyroxine Sodium 75 MCG TABLET PO (06:17)
[2023-07-27 06:22] LABS: Hematocrit 21.3 % (37.0-47.0); Hemoglobin 7.2 g/dl (12.0-16.0); Mean Corpuscular HGB Conc 33.8 g/dl (31.0-35.0); Mean Corpuscular Volume 100.5 fL (80.0-98.0); Mean Platelet Volume 11.3 fL (9.4-12.3); Red Blood Count 2.12 X10*6/uL (4.20-5.50); White Blood Count 4.1 X10*3/uL (4.8-10.8)
[2023-07-27 06:23] LABS: Platelet Count 41 X10*3/uL (160-400)
--- NOTE | 2023-07-27 06:37 | PM.EVENT ---
Event Note Date of Service: 07/27/23 Event Note: Hemoglobin trending down. It is now 7.2. Will keep NPO. Protonix 80 mg IV push then infusion. Recheck Hgb in 4 hours. I will not start therapy with octreotide infusion as last EGD (June 30) showed portal hypertensive gastropathy and grade 1 varices without any high-risk features. GI consult placed. Time Spent With Patient Time: Total time managing care of this patient today ____ minutes.
[2023-07-27] MEDS: Pantoprazole Sodium 40 MG/10 ML VIAL 80 MG IVPUSH (06:42)
--- NOTE | 2023-07-27 06:47 | PC.NURSE ---
Covering Dr. Primo Mack made aware of H+H, plts back low this morning. Pt is asymptomatic and vitals have been stable overnight. MD order for repeat H+H at 10:00am later this morning, new order for protonix with initial dose given, pt made NPO. Water and ice taken from patient room and discussed plan with patient; DIGITAL STRATEGY SPECIALIST made aware of diet changes. GI consulted by MD. Handoff report given to oncoming RN.
[2023-07-27 07:37] VITALS: BP 110/52; PULSE 85; RESP 18; TEMP 36.3; O2SAT 98
[2023-07-27 07:42] LABS: Glucose, Whole Blood 104 mg/dL (60-115)
[2023-07-27] MEDS: Lactulose 20 GM/30 ML SOLUTION PO ×3 (07:53→20:50)
[2023-07-27] MEDS: rifAXIMin 550 MG TABLET PO ×2 (07:53→20:49)
[2023-07-27] MEDS: Torsemide 20 MG TABLET 60 MG PO (07:53)
--- NOTE | 2023-07-27 08:54 | HO.PM.IMPN ---
Subjective Subjective Date of Service: 07/27/23 Interval History: Pt is feeling better, she is completly lucid and no other complain Physical Exam Vital Signs: Vital Signs: Last Vital Signs Temp 97.3 F 07/27/23 07:37 Pulse 85 07/27/23 07:37 Resp 18 07/27/23 07:37 BP 110/52 L 07/27/23 07:37 Pulse Ox 98 07/27/23 07:37 O2 Del Method Room Air 07/27/23 07:37 BMI result Body Mass Index 47.6 General: AO X 3, no acute distress Resp: CTA bilateral CVS: S1,S2,RRR GI: +BS, NT, no distention Skin: No rash Neuro: motor grossly intact Psych: appropriate affect Objective Data Active Medications Albuterol Sulfate (Albuterol Sulfate (0.083%) 2.5 Mg/3 Ml Vial.Neb) 2.5 mg INHALE QID PRN PRN Reason: dyspnea Fluticasone Propionate (Fluticasone Propionate 250 Mcg Blst.W.Dev) 1 puff INHALE RBID [facility] Last Admin: 07/26/23 19:55 Dose: Not Given Documented By: ALIRIO Non-Admin Reason: Med Not Available Glucose (Glucose Gel 15 Gm Gel..Gram.) 15 gm PO Q15M PRN; Protocol PRN Reason: per Hypoglycemia Standing Ord. Ceftriaxone Sodium 1 gm/ (Sodium Chloride) 50 mls @ 100 mls/hr IV Q12H [facility] Last Infusion: 07/27/23 03:13 Dose: Infused Documented By: MANGO Dextrose (D10) 250 mls @ 750 mls/hr IV Q15M PRN; Protocol PRN Reason: per Hypoglycemia Standing Ord. Insulin Human Lispro (Insulin Lispro 100 Unit/Ml 3 Ml Vial) 0 unit SUBCUT QIDACHS [facility]; Protocol Last Admin: 07/27/23 07:54 Dose: Not Given Documented By: DAIVD Non-Admin Reason: No Insulin Coverage Lactulose (Lactulose 20 Gm/30 Ml Solution) 20 gm PO TID [facility] Last Admin: 07/27/23 07:53 Dose: 20 gm Documented By: DAVID Levothyroxine Sodium (Levothyroxine Sodium 75 Mcg Tablet) 75 mcg PO DAILY@0630 [facility] Last Admin: 07/27/23 06:17 Dose: 75 mcg Documented By: MANGO Non-Formulary Medication (Eplerenone [Inspra]) 25 mg PO DAILY [facility] Ondansetron HCl (Ondansetron Hcl 4 Mg/2 Ml Vial) 4 mg IVPUSH Q8H PRN PRN Reason: Nausea and Vomiting Last Admin: 07/26/23 18:44 Dose: 4 mg Documented By: DAVID Pantoprazole Sodium (Pantoprazole Sodium 40 Mg/10 Ml Vial) 40 mg IVPUSH BID@0630,1630 [facility] Rifaximin (Rifaximin 550 Mg Tablet) 550 mg PO BID [facility] Last Admin: 07/27/23 07:53 Dose: 550 mg Documented By: DAVID Sodium Chloride (0.9 % Sodium Chloride Flush 3 Ml Syringe) 3 ml IVFLUSH QSHIFT [facility] Last Admin: 07/27/23 07:54 Dose: Not Given Documented By: DAVID Non-Admin Reason: IV Running Torsemide (Torsemide 20 Mg Tablet) 60 mg PO DAILY [facility]; Protocol Last Admin: 07/27/23 07:53 Dose: 60 mg Documented By: DAVID Labs 07/27/23 05:25 07/26/23 06:00 Labs: Laboratory Results - last 24 hr 07/26/23 07/26/23 07/26/23 06:00 08:50 11:12 MCV MCH MCHC RDW Plt Count MPV Absolute Nucleated RBC Nucleated RBC % (auto) Anion Gap 9 L Estim Creat Clear Calc 72.6 Estimated GFR 48 POC Glucose 139 H 140 H Random Glucose 180 H Calcium 8.4 Total Bilirubin 2.1 H AST 46 H ALT 22 Alkaline Phosphatase 90 Total Protein 5.8 L Albumin 2.2 L 07/26/23 07/26/23 07/27/23 16:10 19:42 05:25 MCV 100.5 H MCH 34.0 H MCHC 33.8 RDW 18.0 H Plt Count 41 L MPV 11.3 Absolute Nucleated RBC 0.000 Nucleated RBC % (auto) 0.0 Anion Gap Estim Creat Clear Calc Estimated GFR POC Glucose 210 H 137 H Random Glucose Calcium Total Bilirubin AST ALT Alkaline Phosphatase Total Protein Albumin 07/27/23 07:36 MCV MCH MCHC RDW Plt Count MPV Absolute Nucleated RBC Nucleated RBC % (auto) Anion Gap Estim Creat Clear Calc Estimated GFR POC Glucose 104 Random Glucose Calcium Total Bilirubin AST ALT Alkaline Phosphatase Total Protein Albumin Microbiology Microbiology Results: Microbiology 07/25/23 18:35 Urine Culture - Preliminary Urine Catheterized - Straight Catheter Klebsiella pneumoniae Assessment and Plan (1) Acute hepatic encephalopathy: Status: Acute (2) Anemia: Status: Acute Plan 48-year-old female with pertinent history of SERVIN cirrhosis status post TIPS, insulin-dependent diabetes mellitus, essential hypertension, mixed hyperlipidemia, AMY not on CPAP, mild intermittent asthma, hypothyroidismad admitted with AMS d/t hepatic encephalopathy Hepatic encephalopathy; noncompliant with lactulose intake and possible UTI. She is alert, oriented x 3 -continue lactulose + Rifaximin 550 mg p.o. b.i.d. Urinary tract infection. Urine culture, resistant Klebsiel, change to Meropenem Pancytopenia secondary to chronic liver disease; more anemic today. IV PPI, GI consult, transfuse 1 unti Hypothyroidism. TSH continue to worsen. Increadse levothyroxine to 75 mcg daily. 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/liver disease due to SERVIN s/p TIPS. Liver transplant list. Continue torsemide and eplerenone. Low-salt diet. Obstructive sleep apnea. Not using CPAP. Morbid obesity. BMI 47.6 kg/m2. Weight loss advised Type 2 diabetes mellitus. Blood glucose monitoring. Insulin sliding scale. DVT prophylaxis: SCD Code status: Full Patient will need hospitalization for hepatic encephalopathy treatment with lactulose rifaximin and monitoring of mental state, transfusion for anemia Quality Stroke Does the patient have a stroke diagnosis?: No VTE Prior VTE?: No VTE Risk Level:: Medical - moderate - high VTE Device Contraindication: N/A - Device Ordered VTE Drug Contraindication: Treatment Not Indicated
[2023-07-27 10:42] LABS: Hematocrit 26.9 % (37.0-47.0); Hemoglobin 9.1 g/dl (12.0-16.0)
[2023-07-27 11:06] LABS: Glucose, Whole Blood 102 mg/dL (60-115)
[2023-07-27] MEDS: Fluticasone Propionate 250 MCG BLST.W.DEV 1 PUFF INHALE ×2 (11:30→19:51)
[2023-07-27 11:32] VITALS: PULSE 79; RESP 18; O2SAT 100
--- NOTE | 2023-07-27 11:33 | PM.GICN ---
History of Present Illness Data of Consult Service Date: 07/27/23 Requesting physician: Man[facility] Primary Care Provider: Unknown Physician HPI Reason for consult: AMS, Anemia 48-year-old female with hx of?uncontrolled insulin-dependent diabetes type 2, HLD, HTN, liver cirrhosis secondary to SERVIN with ascites s/p TIPS, chronic thrombocytopenia, AMY, PCOS with acromegaly, nontoxic multinodular goiter, and mild intermittent asthma who I am seeing for assessment for AMS and anemia, Patient had been noncompliant with lactulose and rifaximin, she was also found to have klebsiella UTI. With fluids and ABx she has improved and is back to baseline, She denies melena, no rectal bleeding, hematuria, hemoptysis or bruising. She has normal stools, and no sob, chest pain, not been taking nsaids, blood thinners. Hgb has been tricking down, but no overt signs of blood loss, last EGD with mucosal bleeding only, and no target lesions she feels fine today at time of interview, no complaints, wants to go home, Imaging this admission with cirrhosis, cholelithiasis, trace ascite, splenomegaly, Duplex last month with patent TIPS flow. Review of Systems Review of Systems: Constitutional : No Weight loss, No Fever, No Chills ENT/Mouth : No sore throat, No Rhinorrhea Eyes: No Swelling, No Redness Cardiovascular : No Chest Pain, No SOB, No Edema Respiratory : No Cough, No Sputum, No Wheezing Gastrointestinal : see HPI Genitourinary : NO Dysuria, No Urinary Frequency, No Hematuria, No Urgency Musculoskeletal : No joint pain, No Myalgias, No Joint Swelling Skin : No Skin Lesions, No rash Neuro : No Weakness, No Numbness, No Dizziness, No Headache Psych : No Anxiety/Panic, No Depression Heme/Lymph: No Bruising, No Lymphadenopathy Endocrine : No Polyuria, No Polydipsia All other systems reviewed and are negative. 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 Diabetes type 2, uncontrolled 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 Family History Family History Father Unknown family medical history Mother Hx of type 1 diabetes mellitus Surgical History Surgical History S/P TIPS (transjugular intrahepatic portosystemic shunt) Previous back surgery Hx of colonoscopy Hx of endoscopy Social History Social History Household Members: Spouse Housing: House Do you presently have visiting nurse or other home services: Yes Alcohol intake: never Patient Tobacco Use Status: Tobacco use Unknown Tobacco use type: Cigarette Smoked in Last 30 Days: No Second Hand Smoke Exposure: Yes Use of substances other than those prescribed or required for medical reasons: No Substance Use Type: Marijuana Currently Displaying Signs/Symptoms of Drug Intoxication Withdrawal: No Have you been hit, kicked, punched, or otherwise hurt by someone within the past year? 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 Meds Allergies Allergy/AdvReac Type Severity Reaction Status Date / Time ibuprofen [From MOTRIN] Allergy Intermediate RASH Verified 07/25/23 16:45 penicillin V Allergy Mild hives Verified 07/25/23 16:45 codeine Allergy Unknown Verified 07/25/23 16:45 Rx- listed on H&P Active Medications: Current Medications Albuterol Sulfate (Albuterol Sulfate (0.083%) 2.5 Mg/3 Ml Vial.Neb) 2.5 mg INHALE QID PRN PRN Reason: dyspnea Fluticasone Propionate (Fluticasone Propionate 250 Mcg Blst.W.Dev) 1 puff INHALE RBID [facility] Last Admin: 07/27/23 11:30 Dose: 1 puff Glucose (Glucose Gel 15 Gm Gel..Gram.) 15 gm PO Q15M PRN; Protocol PRN Reason: per Hypoglycemia Standing Ord. Ceftriaxone Sodium 1 gm/ (Sodium Chloride) 50 mls @ 100 mls/hr IV Q12H [facility] Last Infusion: 07/27/23 03:13 Dose: Infused Dextrose (D10) 250 mls @ 750 mls/hr IV Q15M PRN; Protocol PRN Reason: per Hypoglycemia Standing Ord. Insulin Human Lispro (Insulin Lispro 100 Unit/Ml 3 Ml Vial) 0 unit SUBCUT QIDACHS [facility]; Protocol Last Admin: 07/27/23 11:16 Dose: Not Given Lactulose (Lactulose 20 Gm/30 Ml Solution) 20 gm PO TID [facility] Last Admin: 07/27/23 07:53 Dose: 20 gm Levothyroxine Sodium (Levothyroxine Sodium 75 Mcg Tablet) 75 mcg PO DAILY@0630 [facility] Last Admin: 07/27/23 06:17 Dose: 75 mcg Non-Formulary Medication (Eplerenone [Inspra]) 25 mg PO DAILY [facility] Ondansetron HCl (Ondansetron Hcl 4 Mg/2 Ml Vial) 4 mg IVPUSH Q8H PRN PRN Reason: Nausea and Vomiting Last Admin: 07/26/23 18:44 Dose: 4 mg Pantoprazole Sodium (Pantoprazole Sodium 40 Mg/10 Ml Vial) 40 mg IVPUSH BID@0630,1630 [facility] Rifaximin (Rifaximin 550 Mg Tablet) 550 mg PO BID [facility] Last Admin: 07/27/23 07:53 Dose: 550 mg Sodium Chloride (0.9 % Sodium Chloride Flush 3 Ml Syringe) 3 ml IVFLUSH QSHIFT [facility] Last Admin: 07/27/23 07:54 Dose: Not Given Torsemide (Torsemide 20 Mg Tablet) 60 mg PO DAILY [facility]; Protocol Last Admin: 07/27/23 07:53 Dose: 60 mg Home Medications ?Medication ?Instructions ?Recorded ?Confirmed ?Last Taken ?Type albuterol sulfate 90 mcg/actuation 2 puff inhalation Q6H PRN Wheezing 08/16/20 07/26/23 06/04/23 History aerosol inhaler (Ventolin HFA) blood sugar diagnostic (FreeStyle #10 ea 08/16/20 06/04/23 Unknown History Lite Strips) lancets 28 gauge (FreeStyle #100 ea 08/16/20 06/04/23 Unknown History Lancets) levothyroxine 50 mcg tablet 50 mcg PO DAILY@0600 11/04/21 07/26/23 07/24/23 History insulin glargine U-300 conc 300 75 unit subcut BEDTIME 04/30/22 07/26/23 07/24/23 History unit/mL (3 mL) subcutaneous pen (Toujeo Max U-300 SoloStar) insulin lispro 100 unit/mL See Rx Instructions .Route .COMPLEX 05/31/22 07/26/23 07/24/23 History subcutaneous pen cholecalciferol (vitamin D3) 50 50 mcg PO DAILY 09/29/22 07/26/23 07/24/23 History mcg (2,000 unit) capsule (Vitamin D3) flash glucose sensor (FreeStyle #1 ea 09/29/22 06/04/23 Unknown History Brooke 2 Sensor kit) pen needle, diabetic 32 gauge x #1,200 ea 01/23/23 06/04/23 Unknown History (Pentips) potassium chloride 20 mEq 20 meq PO DAILY 01/23/23 07/26/23 07/24/23 History tablet,extended release(part/cryst) mometasone 200 mcg/actuation HFA 1 puff inhalation BID 04/24/23 07/26/23 07/24/23 History aerosol inhaler (Asmanex HFA) ondansetron 4 mg disintegrating 4 mg PO Q8H PRN Nausea And Vomiting 06/30/23 07/26/23 Unknown History tablet eplerenone 25 mg tablet (Inspra) 25 mg PO DAILY 07/26/23 07/26/23 07/24/23 History lactulose 10 gram/15 mL oral 10 g PO TID 07/26/23 07/26/23 07/24/23 History solution rifaximin 550 mg tablet (Xifaxan) 550 mg PO BID 07/26/23 07/26/23 07/24/23 History torsemide 20 mg tablet 60 mg PO DAILY 07/26/23 07/26/23 07/24/23 History Physical Exam Vital Signs: Vital Signs: Last Vital Signs Temp 97.3 F 07/27/23 07:37 Pulse 79 07/27/23 11:32 Resp 18 07/27/23 11:32 BP 110/52 L 07/27/23 07:37 Pulse Ox 98 07/27/23 07:37 O2 Del Method Room Air 07/27/23 07:37 BMI result Body Mass Index 47.6 EXAM: GENERAL: The patient is obese VITAL SIGNS:see workflow HEENT: Nonicteric sclerae, PERRLA, EOMI. Oropharynx clear. Moist mucous membranes. Conjunctivae appear well perfused. No thyroid mass. CHEST: Chest wall is nontender. HEART: Regular rate and rhythm without murmurs. LUNGS: Clear to auscultation bilaterally. ABDOMEN: Soft, positive bowel sounds, nontender, no organomegaly.no flank tenderness SKIN: No rash, no excessive bruising, petechiae, or purpura. NEUROLOGIC: Cranial nerves II-XII intact without motor/sensory deficit. Mild flapping tremor. Psych: normal affect Results Labs 07/27/23 10:02 07/26/23 06:00 Labs: Short CBC 07/27/23 07/27/23 Range/Units 05:25 10:02 WBC 4.1 L (4.8-10.8) X10*3/uL Hgb 7.2 L 9.1 L D (12.0-16.0) g/dl Hct 21.3 L 26.9 L D (37.0-47.0) % Plt Count 41 L (160-400) X10*3/uL Microbiology Microbiology Results: Microbiology 07/25/23 18:35 Urine Catheterized - Straight Catheter Urine Culture - Preliminary Klebsiella pneumoniae Assessment and Plan (1) Acute hepatic encephalopathy: Status: Acute (2) Anemia: Qualifiers: Anemia type: unspecified type Qualified Code(s): D64.9 - Anemia, unspecified Status: Acute Plan 1/ AMS due to precipitation of hepatic encephalopathy from medication non compliance and UTI, also higher risk of HE now due to TIPS PLAN: 1/ cont with lactulose and rifaximin aim for 2-3 soft stools daily 2/ lytes are optimized, K, Mag are all good 3/ high protein diet 4/ anemia, repeat HGB improved, would cont with iron infusion, as prev EGD-mucosal bleeding from low plts and increased INR due to cirrhosis and hypersplenism Procedures Date of Service Date of Service: 07/27/23
--- NOTE | 2023-07-27 12:31 | MHC.CM.PN ---
EMR REVIEWED. PER MD ROUNDS PATIENT IS NOT MEDICALLY CLEARED FOR DC. NO CHANGES TO DC PLAN. CM WILL CONTINUE TO FOLLOW.
[2023-07-27 16:00] VITALS: BP 121/60; PULSE 76; RESP 18; TEMP 36.1; O2SAT 100
--- NOTE | 2023-07-27 16:43 | HO.MIDLINE ---
Midline Insertion MIDLINE INSERTION Diagnosis: UTI Indication: IV ABT Pertinent Labs: Reviewed Technique: Using sterile technique including cap and mask, glove and drape, the right arm was prepped and draped in the usual sterile fashion of full barrier technique with CHG. Using ultrasound guidance, right basilic vein access was obtained . 4FR x 20cm PowerMidline non PASV trimmable catheter with trimmed length of 12cm was positioned. The procedure was performed in rm [id number]. Ultrasound was used to document vein patency and for needle entry. A formal ultrasound picture was recorded. [facility] has released the line for use and it is currently dressed with a StatLock, Tegaderm, and CHG disc. Verification has been performed for blood return and line patency. Arm Circumference: 28cm Equipment: BARD PowerMidline catheter Catheter Type: 4FR x 20cm with trimmed length of 12 cm Lot #: [id number]
[2023-07-27] MEDS: Pantoprazole Sodium 40 MG/10 ML VIAL IVPUSH (16:49)
[2023-07-27 16:58] LABS: Glucose, Whole Blood 130 mg/dL (60-115)
[2023-07-27 19:13] VITALS: BP 116/56; PULSE 85; RESP 18; TEMP 36.2; O2SAT 100
[2023-07-27 19:51] VITALS: PULSE 85; RESP 18; O2SAT 98
[2023-07-27 20:30] LABS: Glucose, Whole Blood 217 mg/dL (60-115)
[2023-07-27] MEDS: 0.9 % Sodium Chloride Flush 3 ML SYRINGE IVFLUSH (20:50)
[2023-07-27] MEDS: Insulin Lispro 100 UNIT/ML 3 ML VIAL SUBCUT (20:50)
[2023-07-28 03:37] VITALS: BP 119/56; PULSE 95; RESP 18; TEMP 36.6; O2SAT 99
[2023-07-28] MEDS: Levothyroxine Sodium 75 MCG TABLET PO (05:45)
[2023-07-28] MEDS: Pantoprazole Sodium 40 MG/10 ML VIAL IVPUSH ×2 (05:45→16:55)
[2023-07-28 07:06] VITALS: BP 106/54; PULSE 90; RESP 16; TEMP 36.6; O2SAT 97
[2023-07-28 07:16] LABS: Glucose, Whole Blood 147 mg/dL (60-115)
[2023-07-28] MEDS: Fluticasone Propionate 250 MCG BLST.W.DEV 1 PUFF INHALE ×2 (07:53→20:23)
[2023-07-28 07:54] VITALS: PULSE 90; RESP 16; O2SAT 97
[2023-07-28] MEDS: rifAXIMin 550 MG TABLET PO ×2 (09:16→20:37)
[2023-07-28] MEDS: 0.9 % Sodium Chloride Flush 3 ML SYRINGE IVFLUSH ×3 (09:16→20:37)
[2023-07-28] MEDS: Lactulose 20 GM/30 ML SOLUTION PO (09:16)
--- NOTE | 2023-07-28 09:49 | P.PNIM_ITS ---
Subjective Subjective Date of Service: 07/28/23 Interval History: Has no confusion, no bleeding, no fever or chills Physical Exam 2 Vital Signs: Vital Signs: Last Vital Signs Temp 98 F 07/28/23 07:06 Pulse 90 07/28/23 07:54 Resp 16 07/28/23 07:54 BP 106/54 L 07/28/23 07:06 Pulse Ox 97 07/28/23 07:06 O2 Del Method Room Air 07/28/23 07:06 BMI result Body Mass Index 47.6 General: AO X 3, no acute distress Resp: CTA bilateral CVS: S1,S2,RRR GI: +BS, NT, no distention Skin: No rash Neuro: motor grossly intact Psych: appropriate affect Objective Data Active Medications Albuterol Sulfate (Albuterol Sulfate (0.083%) 2.5 Mg/3 Ml Vial.Neb) 2.5 mg INHALE QID PRN PRN Reason: dyspnea Fluticasone Propionate (Fluticasone Propionate 250 Mcg Blst.W.Dev) 1 puff INHALE RBID [facility] Last Admin: 07/28/23 07:53 Dose: 1 puff Documented By: LINDSEY Glucose (Glucose Gel 15 Gm Gel..Gram.) 15 gm PO Q15M PRN; Protocol PRN Reason: per Hypoglycemia Standing Ord. Dextrose (D10) 250 mls @ 750 mls/hr IV Q15M PRN; Protocol PRN Reason: per Hypoglycemia Standing Ord. Meropenem 1 gm/ Sodium (Chloride) 100 mls @ 200 mls/hr IV Q8H [facility] Stop: 08/01/23 09:29 Last Admin: 07/28/23 09:17 Dose: 200 mls/hr Documented By: WALI Insulin Human Lispro (Insulin Lispro 100 Unit/Ml 3 Ml Vial) 0 unit SUBCUT QIDACHS [facility]; Protocol Last Admin: 07/28/23 07:28 Dose: Not Given Documented By: WALI Non-Admin Reason: No Insulin Coverage Lactulose (Lactulose 20 Gm/30 Ml Solution) 20 gm PO TID [facility] Last Admin: 07/28/23 09:16 Dose: 20 gm Documented By: WALI Levothyroxine Sodium (Levothyroxine Sodium 75 Mcg Tablet) 75 mcg PO DAILY@0630 [facility] Last Admin: 07/28/23 05:45 Dose: 75 mcg Documented By: RENATA Non-Formulary Medication (Eplerenone [Inspra]) 25 mg PO DAILY [facility] Ondansetron HCl (Ondansetron Hcl 4 Mg/2 Ml Vial) 4 mg IVPUSH Q8H PRN PRN Reason: Nausea and Vomiting Last Admin: 07/26/23 18:44 Dose: 4 mg Documented By: DAVID Pantoprazole Sodium (Pantoprazole Sodium 40 Mg/10 Ml Vial) 40 mg IVPUSH BID@0630,1630 [facility] Last Admin: 07/28/23 05:45 Dose: 40 mg Documented By: RENATA Rifaximin (Rifaximin 550 Mg Tablet) 550 mg PO BID [facility] Last Admin: 07/28/23 09:16 Dose: 550 mg Documented By: WALI Sodium Chloride (0.9 % Sodium Chloride Flush 3 Ml Syringe) 3 ml IVFLUSH QSHIFT [facility] Last Admin: 07/28/23 09:16 Dose: 3 ml Documented By: WALI Torsemide (Torsemide 20 Mg Tablet) 60 mg PO DAILY [facility]; Protocol Last Admin: 07/28/23 09:17 Dose: Not Given Documented By: WALI Non-Admin Reason: Patient Refused Labs 07/27/23 10:02 07/26/23 06:00 Labs: Laboratory Results - last 24 hr 07/27/23 07/27/23 07/27/23 09:07 11:03 16:54 POC Glucose 102 130 H Blood Type A Positive Antibody Screen NEGATIVE Crossmatch See Detail 07/27/23 07/28/23 20:14 07:07 POC Glucose 217 H 147 H Blood Type Antibody Screen Crossmatch Microbiology Microbiology Results: Microbiology 07/25/23 18:35 Urine Culture - Preliminary Urine Catheterized - Straight Catheter Klebsiella pneumoniae Assessment and Plan (1) Acute hepatic encephalopathy: Status: Acute (2) Anemia: Status: Acute Plan 48-year-old female with pertinent history of SERVIN cirrhosis status post TIPS, insulin-dependent diabetes mellitus, essential hypertension, mixed hyperlipidemia, AMY not on CPAP, mild intermittent asthma, hypothyroidismad admitted with AMS d/t hepatic encephalopathy Hepatic encephalopathy; noncompliant with lactulose intake and possible UTI. She is alert, oriented x 3 -continue lactulose + Rifaximin 550 mg p.o. b.i.d. Urinary tract infection. Urine culture, resistant Klebsiel, change to Meropenem, will check with ID of PO ok Pancytopenia secondary to chronic liver disease, H/H fairly stable and no indication for transfusion, IV PPI, Iron therapy Hypothyroidism. TSH continue to worsen. Increadse levothyroxine to 75 mcg daily. 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/liver disease due to SERVIN s/p TIPS. Liver transplant list. Continue torsemide and eplerenone. Low-salt diet. Obstructive sleep apnea. Not using CPAP. Morbid obesity. BMI 47.6 kg/m2. Weight loss advised Type 2 diabetes mellitus. Blood glucose monitoring. Insulin sliding scale. DVT prophylaxis: SCD Code status: Full Patient will need hospitalization for hepatic encephalopathy treatment with lactulose rifaximin and monitoring of mental state, transfusion for anemia DC today with PO Abx if possible Quality Stroke Does the patient have a stroke diagnosis?: No VTE Prior VTE?: No VTE Risk Level:: Medical - moderate - high VTE Device Contraindication: N/A - Device Ordered VTE Drug Contraindication: Treatment Not Indicated
--- NOTE | 2023-07-28 09:51 | P.DS_ITS ---
DS: Providers Provider Date of Service: 07/28/23 Date of admission: 07/26/23 02:47 Primary care physician: Unknown Physician Consults: 07/27/23 06:31 Consult to Gastroenterology Routine Consulting Provider: Solo Smith Reason for consultation: Hep encephalopathy, worsening anemia Has provider been notified: No DS: Diagnosis Discharge Diagnosis (1) Acute hepatic encephalopathy: Status: Resolved (2) Anemia: Status: Acute DS: Summary Hospital Course Hospital Course: admission hpi Chief Complaint: Confusion Ema Aguilar is a 48 years old woman with past medical history significant for liver cirrhosis secondary to SERVIN (liver transplant) with portal hypertension (esophageal varices, ascites, s/p TIPS), morbid obesity, thrombocytopenia, hypothyroidism, type 2 DM and obstructive sleep apnea presents to emergency department after she was asked to be confused. provided part of the HPI over the phone. mentioned that the patient has not been taking her lactulose and diuretics. She denied any headache, chest pain, shortness on breath, cough, abdominal pain, nausea, vomiting or diarrhea. Denies fever or chills. Patient denied alcohol abuse, illicit drug use or tobacco smoking. In the ED, she was found to have stable vital signs. Blood workup showed pancytopenia which is at baseline. INR is 1.4. There is mild hyponatremia. Bilirubin and AST are elevated. TSH is 6.62 with normal free T4. His CT scan is unremarkable. Abdominal pelvis CT scan showed no acute process. Viral testing for COVID-19, influenza and RSV is negative. ED tx: Lactulose 30 mg PO, ceftriaxone 1 g IV Hospital course: She presented with confusion and found to have hepatic encephalopathy and which has been treated with lactulose and mental status has returned to baseline.. The encephalopathy may have been result of non compliant with lactulose and UTI. UTI has was initially treated with Ceftriaxone, however culture showed Klebsiell that was resistant to Ceftriaxone and antibiotics was changed to iv Meropenem, patient seen by infectious disease and Dr. Evangeilsta she recommend by mouth Bactrim 1 tablet b.i.d. for 6 more days for total 10 day course of antibiotic , recommend to check BMP in few days in hold potassium replacement while on Bactrim. Patient noted to be anemia with low platelets which is chronic d/t her liver disease, prior EGD shwoed mucosal bleeding attributed to low platelets and high INR, she has not required transfusion. She was seen by GI with recommendation to continue PPI and Iron therapy. As for Cirrhosis of the liver she is followed at [facility] and has a follow up appointment with them on 07/29 In regard to type 2 diabetes mellitus patient is blood sugar around 200 dose of Lantus reduced from 75 units to 30 units and recommend to continue insulin sliding scale and follow diabetic diet, if blood sugar noted to be elevated at home recommend to continue higher dose of Lantus. Time Attestation Discharge Coordination Time (in mins): 40 Quality: Safe Use of Opioids Does Pt have an Active Cancer Diagnosis on the Problem List?: No Quality: Stroke Does the patient have a stroke diagnosis?: No Physical Exam Vital Signs: Vital Signs: Last Vital Signs Temp 98 F 07/28/23 07:06 Pulse 90 07/28/23 07:54 Resp 16 07/28/23 07:54 BP 106/54 L 07/28/23 07:06 Pulse Ox 97 07/28/23 07:06 O2 Del Method Room Air 07/28/23 07:06 BMI result Body Mass Index 47.6 DS: Data Data Completed and Pending Completed studies during hospitalization [Text1]: Procedures Labs on day of discharge: Laboratory Results - last 24 hr 07/27/23 07/27/23 07/27/23 09:07 10:02 11:03 Hgb 9.1 L D Hct 26.9 L D POC Glucose 102 Blood Type A Positive Antibody Screen NEGATIVE Crossmatch See Detail 07/27/23 07/27/23 07/28/23 16:54 20:14 07:07 Hgb Hct POC Glucose 130 H 217 H 147 H Blood Type Antibody Screen Crossmatch Preliminary micro results at discharge 07/25/23 18:35 Urine Culture - Preliminary Urine Catheterized - Straight Catheter Klebsiella pneumoniae Discharge Plan Discharge Anticipated Discharge Date/Time: 07/31/23 14:07 Patient Disposition: Home Health Service Discharge Diagnosis: Hepatic encephalopathy, UTI, chronic anemia Referrals: [facility] [Outside] - 3-5 Days (Resume [facility] services) Radha Anne MD [Primary Care Provider] - 08/10/23 1:00 pm (You have a follow up appointment schedule. If you can not make this appointment please call doctors office.) Discharge Medications: New insulin glargine [Lantus U-100 Insulin] 100 unit/mL Solution 30 unit subcut DAILY Qty: 10 0RF levothyroxine 75 mcg Tablet 75 mcg PO DAILY@0630 Qty: 90 0RF sulfamethoxazole-trimethoprim [Bactrim DS] 800-160 mg tablet 1 tab PO BID Qty: 12 0RF Continued insulin lispro 100 unit/mL insulin pen See Rx Instructions .ROUTE .COMPLEX Rx Instructions: 26 units subcutaneously TIDAC if blood sugar <200; 30 units subcutaneously TIDAC if blood sugar >200 ondansetron 4 mg Tablet,Disintegrating 4 mg PO Q8H PRN (Reason: Nausea And Vomiting) omeprazole 40 mg Capsule,Delayed Release(Dr/Ec) 40 mg PO BID@0630,1630 Qty: 160 0RF ferrous sulfate 324 mg (65 mg iron) Tablet,Delayed Release (Dr/Ec) 324 mg PO BID Qty: 60 0RF eplerenone [Inspra] 25 mg tablet 25 mg PO DAILY Xifaxan 550 mg tablet 550 mg PO BID torsemide 20 mg tablet 60 mg PO DAILY lactulose 10 gram/15 mL solution 10 g PO TID Asmanex HFA 200 mcg/actuation HFA aerosol inhaler 1 puff INHALATION BID atorvastatin 20 mg Tablet 20 mg PO DAILY Qty: 30 0RF (DME) FreeStyle Lite Strips Strip See Rx Instructions .ROUTE .MEDSUPPLY Qty: 10 Rx Instructions: test 3x a day (DME) lancets [FreeStyle Lancets] 28 gauge misc See Rx Instructions .ROUTE .MEDSUPPLY Qty: 100 Rx Instructions: test 3x a day albuterol sulfate [Ventolin HFA] 90 mcg/actuation HFA aerosol inhaler 2 puff inhalation Q6H PRN (Reason: Wheezing) cholecalciferol (vitamin D3) [Vitamin D3] 50 mcg (2,000 unit) capsule 50 mcg PO DAILY (DME) FreeStyle Brooke 2 Sensor Kit See Rx Instructions .ROUTE DAILY Qty: 1 Rx Instructions: As directed (DME) pen needle, diabetic [Pentips] 32 gauge x 5/32 needle See Rx Instructions .ROUTE .MEDSUPPLY Qty: 1200 Rx Instructions: As directed Held potassium chloride 20 mEq tablet,ER particles/crystals 20 meq PO DAILY Hold Instructions: Resume on 08/06/23. Discontinued insulin glargine U-300 conc [Toujeo Max U-300 SoloStar] 300 unit/mL (3 mL) insulin pen 75 unit subcut BEDTIME levothyroxine 50 mcg tablet 50 mcg PO DAILY@0600 Discharge Orders: Discharge Order (Routine); Ordered 07/31/23 Ordered By: Marilee Tejeda Diet: Diabetic diet Activity on Discharge: As tolerated Stand Alone Forms: Patient Portal Discharge page Print Language: Faroese Other Ambulatory Orders: Basic Metabolic Panel (Routine) Timeframe: [id number] Facility: [facility] - Location: Laboratory Ordered By: Marilee Tejeda Care Plan Goals: recovery from encephalopathy and resumptin of baseline functioning Resistant Klebsiella UTI take Bactrim ds 1 tablet twice daily for 6 more days Hold potassium supplement while on Bactrim Dose of Lantus reduced from 75 units to 30 units , main increase back to higher dose of Lantus if noted to have elevated blood sugars continue sliding scale insulin Dose of Synthroid increased to 75 mcg follow TSH in 6 weeks Check BMP on 08/03 to assess kidney function and potassium while on Bactrim Health Concerns: hepatic encephalopathy chronic anemia chronic thrombocytopenia Plan of Treatment: continue taking all your medications as recommended without skipping doses take bactrim for UTI follow up with liver clinic as previously planned Assessment: see above Discharge Date/Time: 07/31/23 19:28
[2023-07-28 10:14] LABS: Hematocrit 22.3 % (37.0-47.0); Hemoglobin 7.6 g/dl (12.0-16.0); Mean Corpuscular HGB Conc 34.1 g/dl (31.0-35.0); Mean Corpuscular Hemoglobin 33.2 pg (27.0-33.0); Mean Corpuscular Volume 97.4 fL (80.0-98.0); Mean Platelet Volume 11.1 fL (9.4-12.3); Red Blood Count 2.29 X10*6/uL (4.20-5.50); Red Cell Distribution Width 17.7 % (11.0-16.0); White Blood Count 3.8 X10*3/uL (4.8-10.8)
[2023-07-28 10:15] LABS: Platelet Count 45 X10*3/uL (160-400)
[2023-07-28 10:51] LABS: Ammonia 135 umol/L (13-55)
[2023-07-28 11:08] LABS: Glucose, Whole Blood 207 mg/dL (60-115)
--- NOTE | 2023-07-28 11:13 | HO.PM.IMPN ---
Subjective Subjective Date of Service: 07/28/23 Interval History: Has no confusion, no bleeding, no fever or chills ammonia level is highre, H/H trended down Physical Exam Vital Signs: Vital Signs: Last Vital Signs Temp 98 F 07/28/23 07:06 Pulse 90 07/28/23 07:54 Resp 16 07/28/23 07:54 BP 106/54 L 07/28/23 07:06 Pulse Ox 97 07/28/23 07:06 O2 Del Method Room Air 07/28/23 07:06 BMI result Body Mass Index 47.6 General: AO X 3, no acute distress Resp: CTA bilateral CVS: S1,S2,RRR GI: +BS, NT, no distention Skin: No rash Neuro: motor grossly intact Psych: appropriate affect Objective Data Active Medications Albuterol Sulfate (Albuterol Sulfate (0.083%) 2.5 Mg/3 Ml Vial.Neb) 2.5 mg INHALE QID PRN PRN Reason: dyspnea Fluticasone Propionate (Fluticasone Propionate 250 Mcg Blst.W.Dev) 1 puff INHALE RBID [facility] Last Admin: 07/28/23 07:53 Dose: 1 puff Documented By: LINDSEY Glucose (Glucose Gel 15 Gm Gel..Gram.) 15 gm PO Q15M PRN; Protocol PRN Reason: per Hypoglycemia Standing Ord. Dextrose (D10) 250 mls @ 750 mls/hr IV Q15M PRN; Protocol PRN Reason: per Hypoglycemia Standing Ord. Meropenem 1 gm/ Sodium (Chloride) 100 mls @ 200 mls/hr IV Q8H [facility] Stop: 08/01/23 09:29 Last Infusion: 07/28/23 10:12 Dose: Infused Documented By: WALI Insulin Human Lispro (Insulin Lispro 100 Unit/Ml 3 Ml Vial) 0 unit SUBCUT QIDACHS [facility]; Protocol Last Admin: 07/28/23 07:28 Dose: Not Given Documented By: WALI Non-Admin Reason: No Insulin Coverage Lactulose (Lactulose 20 Gm/30 Ml Solution) 20 gm PO TID [facility] Last Admin: 07/28/23 09:16 Dose: 20 gm Documented By: WALI Levothyroxine Sodium (Levothyroxine Sodium 75 Mcg Tablet) 75 mcg PO DAILY@0630 [facility] Last Admin: 07/28/23 05:45 Dose: 75 mcg Documented By: RENATA Non-Formulary Medication (Eplerenone [Inspra]) 25 mg PO DAILY [facility] Ondansetron HCl (Ondansetron Hcl 4 Mg/2 Ml Vial) 4 mg IVPUSH Q8H PRN PRN Reason: Nausea and Vomiting Last Admin: 07/26/23 18:44 Dose: 4 mg Documented By: DAVID Pantoprazole Sodium (Pantoprazole Sodium 40 Mg/10 Ml Vial) 40 mg IVPUSH BID@0630,1630 [facility] Last Admin: 07/28/23 05:45 Dose: 40 mg Documented By: RENATA Rifaximin (Rifaximin 550 Mg Tablet) 550 mg PO BID [facility] Last Admin: 07/28/23 09:16 Dose: 550 mg Documented By: WALI Sodium Chloride (0.9 % Sodium Chloride Flush 3 Ml Syringe) 3 ml IVFLUSH QSHIFT [facility] Last Admin: 07/28/23 09:16 Dose: 3 ml Documented By: WALI Torsemide (Torsemide 20 Mg Tablet) 60 mg PO DAILY [facility]; Protocol Last Admin: 07/28/23 09:17 Dose: Not Given Documented By: WALI Non-Admin Reason: Patient Refused Labs 07/28/23 10:04 07/26/23 06:00 Labs: Laboratory Results - last 24 hr 07/27/23 07/27/23 07/27/23 09:07 16:54 20:14 MCV MCH MCHC RDW Plt Count MPV Absolute Nucleated RBC Nucleated RBC % (auto) POC Glucose 130 H 217 H Ammonia Crossmatch See Detail 07/28/23 07/28/23 07/28/23 07:07 10:04 11:03 MCV 97.4 MCH 33.2 H MCHC 34.1 RDW 17.7 H Plt Count 45 L MPV 11.1 Absolute Nucleated RBC 0.000 Nucleated RBC % (auto) 0.0 POC Glucose 147 H 207 H Ammonia 135 H Crossmatch Microbiology Microbiology Results: Microbiology 07/25/23 18:35 Urine Culture - Preliminary Urine Catheterized - Straight Catheter Klebsiella pneumoniae Assessment and Plan (1) Acute hepatic encephalopathy: Status: Acute (2) Anemia: Status: Acute Plan 48-year-old female with pertinent history of SERVIN cirrhosis status post TIPS, insulin-dependent diabetes mellitus, essential hypertension, mixed hyperlipidemia, AMY not on CPAP, mild intermittent asthma, hypothyroidismad admitted with AMS d/t hepatic encephalopathy Hepatic encephalopathy; noncompliant with lactulose intake and possible UTI. She is alert, oriented x 3, yet ammonia level is going up. Increasing Lactulose to 35 tid and continue monitoring and continue Rifaximin 550 mg p.o. b.i.d. Urinary tract infection. Urine culture, resistant Klebsiel, change to Meropenem, will check with ID of PO ok Pancytopenia secondary to chronic liver disease, H/H fairly stable and no indication for transfusion, IV PPI, Iron therapy Hypothyroidism. Increased TSH, Levothyroxine increased 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/liver disease due to SERVIN s/p TIPS. Liver transplant list. Continue torsemide and eplerenone. Low-salt diet. Obstructive sleep apnea. Not using CPAP. Morbid obesity. BMI 47.6 kg/m2. Weight loss advised Type 2 diabetes mellitus. Blood glucose monitoring. Insulin sliding scale. DVT prophylaxis: SCD Code status: Full Patient will need hospitalization for hepatic encephalopathy treatment with lactulose rifaximin and monitoring of mental state, transfusion for anemia DC today with PO Abx if possible Quality Stroke Does the patient have a stroke diagnosis?: No VTE Prior VTE?: No VTE Risk Level:: Medical - moderate - high VTE Device Contraindication: N/A - Device Ordered VTE Drug Contraindication: Treatment Not Indicated
[2023-07-28] MEDS: Insulin Lispro 100 UNIT/ML 3 ML VIAL SUBCUT ×2 (12:16→20:37)
[2023-07-28 15:14] VITALS: BP 123/56; PULSE 90; RESP 16; TEMP 36.4; O2SAT 100
[2023-07-28 16:31] LABS: Glucose, Whole Blood 139 mg/dL (60-115)
[2023-07-28] MEDS: Lactulose 20 GM/30 ML SOLUTION 35 GM PO ×2 (16:54→20:37)
[2023-07-28 20:00] VITALS: BP 121/59; PULSE 84; RESP 18; TEMP 36.6; O2SAT 100
[2023-07-28 20:23] VITALS: PULSE 84; RESP 18; O2SAT 100
[2023-07-28 20:24] LABS: Glucose, Whole Blood 197 mg/dL (60-115)
--- NOTE | 2023-07-28 23:02 | HO.SKINPHOTO ---
Location: right great toe Category: diabetic ulcer Stage: Length: Width: Depth: cm Location: Category: Stage: Length: Width: Depth: cm Location: Category: Stage: Length: Width: Depth: cm Location: Category: Stage: Length: Width: Depth: cm Location: Category: Stage: Length: Width: Depth: cm Location: Category: Stage: Length: Width: Depth: cm
[2023-07-29 03:19] VITALS: BP 121/57; PULSE 90; RESP 16; TEMP 36.1; O2SAT 96
[2023-07-29] MEDS: Levothyroxine Sodium 75 MCG TABLET PO (05:55)
[2023-07-29] MEDS: Pantoprazole Sodium 40 MG/10 ML VIAL IVPUSH ×2 (05:55→17:04)
[2023-07-29 07:06] LABS: Glucose, Whole Blood 131 mg/dL (60-115)
[2023-07-29 07:13] VITALS: BP 114/56; PULSE 89; RESP 16; TEMP 36.6; O2SAT 99
[2023-07-29] MEDS: Fluticasone Propionate 250 MCG BLST.W.DEV 1 PUFF INHALE ×2 (07:28→19:23)
[2023-07-29 07:30] VITALS: PULSE 89; RESP 20; O2SAT 99
[2023-07-29] MEDS: 0.9 % Sodium Chloride Flush 3 ML SYRINGE IVFLUSH ×3 (09:01→19:53)
[2023-07-29] MEDS: rifAXIMin 550 MG TABLET PO ×2 (09:01→19:52)
[2023-07-29] MEDS: Lactulose 20 GM/30 ML SOLUTION 35 GM PO ×3 (09:01→19:52)
[2023-07-29] MEDS: Torsemide 20 MG TABLET 60 MG PO (09:01)
--- NOTE | 2023-07-29 10:59 | MHC.CM.PN ---
Addendum entered by Lulu Worthington RN 07/29/23 13:48: PER MD PATIENT NOT MEDICALLY CLEARED FOR DC AT THIS TIME, PLAN TO DC TOMORROW. Original Note: EMR REVIEWED. PER MD ROUNDS PATIENT NOT MEDICALLY CLEARED FOR DC AT THIS TIME. LABS PENDING, POTENTIAL DC LATER TODAY. CM WILL CONTINUE TO FOLLOW.
[2023-07-29 11:25] LABS: Ammonia 71 umol/L (13-55)
[2023-07-29 11:28] LABS: Hematocrit 22.3 % (37.0-47.0); Hemoglobin 7.8 g/dl (12.0-16.0); Mean Corpuscular Hemoglobin 34.8 pg (27.0-33.0); Mean Corpuscular Volume 99.6 fL (80.0-98.0); Mean Platelet Volume 11.6 fL (9.4-12.3); Red Blood Count 2.24 X10*6/uL (4.20-5.50); Red Cell Distribution Width 17.9 % (11.0-16.0); White Blood Count 4.3 X10*3/uL (4.8-10.8)
[2023-07-29 11:34] LABS: Platelet Count 46 X10*3/uL (160-400)
[2023-07-29 11:36] LABS: Glucose, Whole Blood 189 mg/dL (60-115)
--- NOTE | 2023-07-29 11:55 | HO.PM.IMPN ---
Subjective Subjective Date of Service: 07/29/23 Interval History: Has no confusion, no bleeding, no fever or chills ammonia level is lower, H/H is stable. blood sugar adequate without Lantus, she says she takes Lantus 75 at home and here has been on sliding scale only Physical Exam Vital Signs: Vital Signs: Last Vital Signs Temp 97.8 F 07/29/23 07:13 Pulse 89 07/29/23 07:30 Resp 20 07/29/23 07:30 BP 114/56 L 07/29/23 07:13 Pulse Ox 99 07/29/23 07:13 O2 Del Method Room Air 07/29/23 07:13 BMI result Body Mass Index 47.6 General: AO X 3, no acute distress Resp: CTA bilateral CVS: S1,S2,RRR GI: +BS, NT, no distention Skin: No rash, has an old blood blister on nail and left big toe Neuro: motor grossly intact Psych: appropriate affect Objective Data Active Medications Albuterol Sulfate (Albuterol Sulfate (0.083%) 2.5 Mg/3 Ml Vial.Neb) 2.5 mg INHALE QID PRN PRN Reason: dyspnea Fluticasone Propionate (Fluticasone Propionate 250 Mcg Blst.W.Dev) 1 puff INHALE RBID [facility] Last Admin: 07/29/23 07:28 Dose: 1 puff Documented By: ELIZABET Glucose (Glucose Gel 15 Gm Gel..Gram.) 15 gm PO Q15M PRN; Protocol PRN Reason: per Hypoglycemia Standing Ord. Dextrose (D10) 250 mls @ 750 mls/hr IV Q15M PRN; Protocol PRN Reason: per Hypoglycemia Standing Ord. Meropenem 1 gm/ Sodium (Chloride) 100 mls @ 200 mls/hr IV Q8H [facility] Stop: 08/01/23 09:29 Last Infusion: 07/29/23 10:30 Dose: Infused Documented By: NIELS Insulin Glargine (Insulin Glargine,Hum.Rec.Anlog 100 Unit/Ml 10 Ml Vial) 20 unit SUBCUT DAILY [facility] Insulin Human Lispro (Insulin Lispro 100 Unit/Ml 3 Ml Vial) 0 unit SUBCUT QIDACHS [facility]; Protocol Last Admin: 07/29/23 07:22 Dose: Not Given Documented By: NIELS Non-Admin Reason: No Insulin Coverage Lactulose (Lactulose 20 Gm/30 Ml Solution) 35 gm PO TID [facility] Last Admin: 07/29/23 09:01 Dose: 35 gm Documented By: NIELS Levothyroxine Sodium (Levothyroxine Sodium 75 Mcg Tablet) 75 mcg PO DAILY@0630 [facility] Last Admin: 07/29/23 05:55 Dose: 75 mcg Documented By: RENATA Comments: downtime Non-Formulary Medication (Eplerenone [Inspra]) 25 mg PO DAILY [facility] Ondansetron HCl (Ondansetron Hcl 4 Mg/2 Ml Vial) 4 mg IVPUSH Q8H PRN PRN Reason: Nausea and Vomiting Last Admin: 07/26/23 18:44 Dose: 4 mg Documented By: DAVID Pantoprazole Sodium (Pantoprazole Sodium 40 Mg/10 Ml Vial) 40 mg IVPUSH BID@0630,1630 [facility] Last Admin: 07/29/23 05:55 Dose: 40 mg Documented By: RENATA Comments: downtime Rifaximin (Rifaximin 550 Mg Tablet) 550 mg PO BID [facility] Last Admin: 07/29/23 09:01 Dose: 550 mg Documented By: NIELS Sodium Chloride (0.9 % Sodium Chloride Flush 3 Ml Syringe) 3 ml IVFLUSH QSHIFT [facility] Last Admin: 07/29/23 09:01 Dose: 3 ml Documented By: NIELS Torsemide (Torsemide 20 Mg Tablet) 60 mg PO DAILY [facility]; Protocol Last Admin: 07/29/23 09:01 Dose: 60 mg Documented By: NIELS Labs 07/29/23 10:49 07/29/23 12:01 Labs: Laboratory Results - last 24 hr 07/28/23 07/28/23 07/29/23 16:28 20:15 06:59 MCV MCH MCHC RDW Plt Count MPV Absolute Nucleated RBC Nucleated RBC % (auto) POC Glucose 139 H 197 H 131 H Ammonia 07/29/23 07/29/23 10:49 11:12 MCV 99.6 H MCH 34.8 H MCHC 35.0 RDW 17.9 H Plt Count 46 L MPV 11.6 Absolute Nucleated RBC 0.000 Nucleated RBC % (auto) 0.0 POC Glucose 189 H Ammonia 71 H Assessment and Plan (1) Acute hepatic encephalopathy: Status: Acute (2) Anemia: Status: Acute Plan 48-year-old female with pertinent history of SREVIN cirrhosis status post TIPS, insulin-dependent diabetes mellitus, essential hypertension, mixed hyperlipidemia, AMY not on CPAP, mild intermittent asthma, hypothyroidismad admitted with AMS d/t hepatic encephalopathy Hepatic encephalopathy; noncompliant with lactulose intake and possible UTI. She is alert, oriented x 3. ammonia level has come down to 75. to continue Lactulose to 35 tid and continue monitoring and continue Rifaximin 550 mg p.o. b.i.d. Urinary tract infection. Urine culture, resistant Klebsiel, change to Meropenem, check with ID if ok to switch to PO Pancytopenia secondary to chronic liver disease, H/H fairly stable and no indication for transfusion, Hypothyroidism. Increased TSH, Levothyroxine increased 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/liver disease due to SERVIN s/p TIPS. Liver transplant list. Continue torsemide and eplerenone. Low-salt diet. NO ascietes and no inidication for para Obstructive sleep apnea. Not using CPAP. Morbid obesity. BMI 47.6 kg/m2. Weight loss advised Type 2 diabetes mellitus. She says she normal takes 75 units of Lantus at home, she has only been on sliding scale here with good sugar control, Blood sugar have been less than 200, restarting lantus at 20 and ultimtely may need the dose reduce at discharge DVT prophylaxis: SCD Code status: Full Patient will need hospitalization for hepatic encephalopathy treatment with lactulose rifaximin and monitoring of mental state, transfusion for anemia DC today with PO Abx if possible Quality Stroke Does the patient have a stroke diagnosis?: No VTE Prior VTE?: No VTE Risk Level:: Medical - moderate - high VTE Device Contraindication: N/A - Device Ordered VTE Drug Contraindication: Treatment Not Indicated
[2023-07-29] MEDS: Insulin Lispro 100 UNIT/ML 3 ML VIAL SUBCUT ×3 (12:09→19:51)
[2023-07-29] MEDS: Insulin Glargine,Hum.rec.anlog 100 UNIT/ML 10 ML VIAL 20 UNIT SUBCUT (12:09)
[2023-07-29 12:31] LABS: Anion Gap 10 (12-20); Carbon Dioxide 24 mmol/L (22-29); Chloride 105 mmol/L (96-108); Sodium 135 mmol/L (135-145)
[2023-07-29 15:25] VITALS: BP 137/63; PULSE 99; RESP 15; TEMP 36; O2SAT 100
[2023-07-29 16:16] LABS: Glucose, Whole Blood 183 mg/dL (60-115)
--- NOTE | 2023-07-29 16:49 | HO.WOUND ---
Wound Consult: Initial 48yr old F? admitted to [facility] on 07/26/23 - See progress notes and H&P for detailed history.? Wound consult placed for Right Great Toe Wound POA.? Patient agreeable to assessment and photo documentation.? 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 She reports concern for the anterior foot - see photo. Tissue is intact and resurfaced at this time - no open wound at this time. May cover for protection and patient request. Right Great Toe Right Anterior Foot Right Great Toe Etiology: Diabetic Wound??Present on Admission Measurements: see charting for details Wound Bed: adhernt stable black eschar vs resolving blood blister Drainage / Odor: None Edges: ? Adherent Digna wound: Intact dry tissue ? No Induration, Fluctuance or Warmth noted Pain: denies Goals of Treatment: ? Keep open to air - no topical interventions needed at this time Recommendations: 1. Turn and Reposition every 2 hours and as needed for patient comfort.? Use pillows or wedges to support off loading positions. 2. Off Load all bony prominences with use of pillows and heel boots if needed.? Apply Preventative foams where needed. ? 3. Monitor for incontinence and moisture control, use barrier creams when needed for prevention and treatment. 4. Provide adequate and supplemental nutrition.? 5. Maintain blood glucose levels per Providers order. Re-consult wound care Nurse for wound deterioration or wound changes.
[2023-07-29 19:12] VITALS: BP 128/59; PULSE 100; RESP 16; TEMP 36.4; O2SAT 100
[2023-07-29 19:18] LABS: Glucose, Whole Blood 289 mg/dL (60-115)
[2023-07-29 19:25] VITALS: PULSE 102; RESP 16; O2SAT 100
[2023-07-30 03:57] VITALS: BP 134/62; PULSE 103; RESP 18; TEMP 36.4; O2SAT 98
[2023-07-30] MEDS: Pantoprazole Sodium 40 MG/10 ML VIAL IVPUSH (06:00)
[2023-07-30] MEDS: Levothyroxine Sodium 75 MCG TABLET PO (06:00)
[2023-07-30 07:35] LABS: Glucose, Whole Blood 187 mg/dL (60-115)
[2023-07-30 07:45] VITALS: BP 111/55; PULSE 101; RESP 16; TEMP 36; O2SAT 96
[2023-07-30] MEDS: Fluticasone Propionate 250 MCG BLST.W.DEV 1 PUFF INHALE ×2 (08:05→19:46)
[2023-07-30 08:07] VITALS: PULSE 101; RESP 16; O2SAT 96
[2023-07-30] MEDS: Insulin Lispro 100 UNIT/ML 3 ML VIAL SUBCUT ×4 (08:53→20:53)
[2023-07-30] MEDS: Insulin Glargine,Hum.rec.anlog 100 UNIT/ML 10 ML VIAL 20 UNIT SUBCUT (08:53)
[2023-07-30] MEDS: 0.9 % Sodium Chloride Flush 3 ML SYRINGE IVFLUSH ×3 (08:54→23:58)
[2023-07-30] MEDS: Lactulose 20 GM/30 ML SOLUTION 35 GM PO ×3 (08:56→20:53)
[2023-07-30] MEDS: rifAXIMin 550 MG TABLET PO ×2 (08:56→20:53)
[2023-07-30] MEDS: Torsemide 20 MG TABLET 60 MG PO (08:56)
[2023-07-30 11:13] LABS: Glucose, Whole Blood 175 mg/dL (60-115)
[2023-07-30 15:15] VITALS: BP 121/58; PULSE 88; RESP 18; TEMP 36; O2SAT 100
--- NOTE | 2023-07-30 15:32 | P.PNIM_ITS ---
Subjective Subjective Date of Service: 07/30/23 Interval History: Being followed for hepatic encephalopathy, resistant UTI Denies fever, no chills, tolerating diet with no nausea, no vomiting or abdominal pain no confusion Blood sugars around 200 with 1 high blood sugar reading on subcu Lantus Review of Systems All other system reviewed and negative. Physical Exam 2 Vital Signs: Vital Signs: Last Vital Signs Temp 96.8 F 07/30/23 15:15 Pulse 88 07/30/23 15:15 Resp 18 07/30/23 15:15 BP 121/58 L 07/30/23 15:15 Pulse Ox 100 07/30/23 15:15 O2 Del Method Room Air 07/30/23 15:15 BMI result Body Mass Index 47.6 Const: Other: General awake alert x3, resting comfortably in no acute distress. Neck supple no JVD. CVS regular rate rhythm, Respiratory lungs clear to auscultation, no respiratory distress, no wheeze, no rhonchi. Gastrointestinal abdomen soft, non tender, bowel sounds audible, no guarding , no rigidity. Extremities no edema. Neuro non focal Skin no rash, old blood blister on nail and left big toe Psych appropriate affect Objective Data Active Medications Albuterol Sulfate (Albuterol Sulfate (0.083%) 2.5 Mg/3 Ml Vial.Neb) 2.5 mg INHALE QID PRN PRN Reason: dyspnea Fluticasone Propionate (Fluticasone Propionate 250 Mcg Blst.W.Dev) 1 puff INHALE RBID [facility] Last Admin: 07/30/23 08:05 Dose: 1 puff Documented By: LASHAE Glucose (Glucose Gel 15 Gm Gel..Gram.) 15 gm PO Q15M PRN; Protocol PRN Reason: per Hypoglycemia Standing Ord. Dextrose (D10) 250 mls @ 750 mls/hr IV Q15M PRN; Protocol PRN Reason: per Hypoglycemia Standing Ord. Meropenem 1 gm/ Sodium (Chloride) 100 mls @ 200 mls/hr IV Q8H [facility] Stop: 08/01/23 09:29 Last Infusion: 07/30/23 11:16 Dose: Infused Documented By: YONI Insulin Glargine (Insulin Glargine,Hum.Rec.Anlog 100 Unit/Ml 10 Ml Vial) 20 unit SUBCUT DAILY [facility] Last Admin: 07/30/23 08:53 Dose: 20 unit Documented By: YONI Insulin Human Lispro (Insulin Lispro 100 Unit/Ml 3 Ml Vial) 0 unit SUBCUT QIDACHS [facility]; Protocol Last Admin: 07/30/23 11:55 Dose: 2 unit Documented By: YONI Lactulose (Lactulose 20 Gm/30 Ml Solution) 35 gm PO TID [facility] Last Admin: 07/30/23 08:56 Dose: 35 gm Documented By: YONI Levothyroxine Sodium (Levothyroxine Sodium 75 Mcg Tablet) 75 mcg PO DAILY@0630 [facility] Last Admin: 07/30/23 06:00 Dose: 75 mcg Documented By: [email or web address] Comments: downtime Non-Formulary Medication (Eplerenone [Inspra]) 25 mg PO DAILY [facility] Omeprazole (Omeprazole 40 Mg Capsule.Dr) 40 mg PO BID@0630,1630 [facility] Ondansetron HCl (Ondansetron Hcl 4 Mg/2 Ml Vial) 4 mg IVPUSH Q8H PRN PRN Reason: Nausea and Vomiting Last Admin: 07/26/23 18:44 Dose: 4 mg Documented By: DAVID Rifaximin (Rifaximin 550 Mg Tablet) 550 mg PO BID [facility] Last Admin: 07/30/23 08:56 Dose: 550 mg Documented By: YONI Sodium Chloride (0.9 % Sodium Chloride Flush 3 Ml Syringe) 3 ml IVFLUSH QSHIFT [facility] Last Admin: 07/30/23 08:54 Dose: 3 ml Documented By: YONI Torsemide (Torsemide 20 Mg Tablet) 60 mg PO DAILY [facility]; Protocol Last Admin: 07/30/23 08:56 Dose: 60 mg Documented By: YONI Labs 07/29/23 10:49 07/29/23 12:01 Labs: Laboratory Results - last 24 hr 07/29/23 07/29/23 07/30/23 16:13 19:14 07:31 POC Glucose 183 H 289 H 187 H 07/30/23 11:08 POC Glucose 175 H Assessment and Plan (1) Acute hepatic encephalopathy: Status: Acute (2) Anemia: Status: Acute Plan 48-year-old female with pertinent history of SERVIN cirrhosis status post TIPS, insulin-dependent diabetes mellitus, essential hypertension, mixed hyperlipidemia, AMY not on CPAP, mild intermittent asthma, hypothyroidismad admitted with AMS d/t hepatic encephalopathy Hepatic encephalopathy; Resolved, was likely due to noncompliant with lactulose intake and possible UTI. ammonia level has come down to 71. continue Lactulose to 35 tid and Rifaximin 550 mg p.o. b.i.d. Urinary tract infection. Urine culture, resistant Klebsiella, on iv Meropenem, ID consult pending for choice and duration of antibiotic Pancytopenia secondary to chronic liver disease, H/H and platelets at baseline, no active bleeding noted,no indication for transfusion, Hypothyroidism. Increased TSH, dose Levothyroxine increased, repeat TSH in 6 week 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/liver disease due to SERVIN s/p TIPS. Liver transplant list. Continue torsemide and eplerenone,Continue Low-salt diet. Obstructive sleep apnea. Not using CPAP. Morbid obesity. BMI 47.6 kg/m2. Weight loss advised Type 2 diabetes mellitus. Blood sugars around 200 1 high reading to 89 last night, home dose 75 units of Lantus currently receiving Lantus 20 units will increase to 25 units Continue insulin sliding scale and will reduced dose of Lantus at discharge DVT prophylaxis: SCD Code status: Full Patient will need continued inpatient hospitalization for treatment of resistant Klebsiella UTI on IV meropenem awaiting expert consultation Quality Stroke Does the patient have a stroke diagnosis?: No VTE Prior VTE?: No VTE Risk Level:: Medical - moderate - high VTE Device Contraindication: N/A - Device Ordered VTE Drug Contraindication: Treatment Not Indicated
[2023-07-30 16:09] LABS: Glucose, Whole Blood 181 mg/dL (60-115)
[2023-07-30] MEDS: Omeprazole 40 MG CAPSULE.DR PO (17:01)
[2023-07-30 19:32] VITALS: BP 122/56; PULSE 98; RESP 18; TEMP 36.4; O2SAT 96
[2023-07-30 19:46] VITALS: PULSE 98; RESP 18; O2SAT 97
[2023-07-30 21:08] LABS: Glucose, Whole Blood 254 mg/dL (60-115)
[2023-07-31 03:41] VITALS: BP 110/53; PULSE 106; RESP 18; TEMP 36.7; O2SAT 97
[2023-07-31] MEDS: Levothyroxine Sodium 75 MCG TABLET PO (05:46)
[2023-07-31] MEDS: Omeprazole 40 MG CAPSULE.DR PO ×2 (05:46→16:59)
[2023-07-31 07:30] VITALS: BP 105/52; PULSE 102; RESP 18; TEMP 36.3; O2SAT 94
[2023-07-31 07:38] LABS: Glucose, Whole Blood 137 mg/dL (60-115)
[2023-07-31] MEDS: Fluticasone Propionate 250 MCG BLST.W.DEV 1 PUFF INHALE (07:47)
[2023-07-31 07:48] VITALS: PULSE 103; RESP 18; O2SAT 96
[2023-07-31] MEDS: 0.9 % Sodium Chloride Flush 3 ML SYRINGE IVFLUSH (08:14)
[2023-07-31] MEDS: Insulin Glargine,Hum.rec.anlog 100 UNIT/ML 10 ML VIAL 25 UNIT SUBCUT (08:16)
[2023-07-31] MEDS: rifAXIMin 550 MG TABLET PO (08:16)
[2023-07-31] MEDS: Torsemide 20 MG TABLET 60 MG PO (08:16)
[2023-07-31] MEDS: Lactulose 20 GM/30 ML SOLUTION 35 GM PO (08:17)
[2023-07-31 11:18] LABS: Glucose, Whole Blood 260 mg/dL (60-115)
[2023-07-31] MEDS: Insulin Lispro 100 UNIT/ML 3 ML VIAL SUBCUT ×2 (11:55→16:59)
--- NOTE | 2023-07-31 13:16 | MHC.CM.PN ---
Addendum entered by Lulu Worthington RN 07/31/23 14:35: Per MD patient medically cleared for dc home w/ resump of VNA services. BLS transportation scheduled for 1700. RN and patient aware. Patient provided w/ information for PCP f/u appt. Original Note: Per MD rounds patient not medically cleared at this time, awaiting ID input. CM will continue to follow.
--- NOTE | 2023-07-31 14:33 | W.MHC.F2F ---
Service Date Service Date: 07/31/23 Encounter Date of encounter: 07/31/23 Reasons for Services Signs and symptoms assessed: Assess blood sugars, resistant urinary tract infection, monitor compliance with medications, monitor mental status Reason for group home: diabetic teaching and medication management Homebound: Leaving the home is medically contraindicated at this time without the asist of a device and/or another person due th the listed conditions above and below. Reason homebound: weakness related to hospital stay Certification: Based on the above findings, I certify that this patient is confined to the home and needs intermittent group home care, physical therapy and/or speech therapy, or continues to need occupational therapy. The patient is under my care, and I have initiated the establishment of the plan of care. The patient will be followed by a physician who will periodically review the plan of care. Time Spent With Patient Time: Total time managing care of this patient today ____ minutes.
--- NOTE | 2023-07-31 15:02 | HO.REMOVAL ---
Removal of PICC/Midline Removal of PICC/Midline: Removal of PICC/Midline: 1. Date: 07/31/23 2. Reason removed: No longer needed 3. Inserted length: 12 CM 4. Removed length: 12 CM intact midline 5. A 2X2 gauze and Tegaderm dressing was placed over the site upon removal. No edema or bleeding at the site. Site is bruised.
[2023-07-31 15:23] VITALS: BP 123/58; PULSE 103; RESP 20; TEMP 36.2; O2SAT 100
--- NOTE | 2023-07-31 16:04 | P.CNID_ITS ---
History of Present Illness Data of Consult Service Date: 07/31/23 Requesting physician: Marilee Tejeda Primary Care Provider: Radha Anne MD HPI Reason for consult: weakness,urinary concerns She presents with weakness and urinary frequency. She has hives to Penicillin. She has no fever or chills. Review of Systems 2 Review of Systems: Yes all other systems are reviewed and are negative PMFSH Past Medical History Medical History (Updated 07/31/23 @ 16:07 by Rosa Evangelista MD) UTI (urinary tract infection) Pancytopenia 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 Severe anemia S/P abdominal paracentesis 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 Status post abdominal paracentesis HTN (hypertension) AMY (obstructive sleep apnea) Dyslipidemia Asthma Non-toxic multinodular goiter Diabetic nephropathy associated with type 2 diabetes mellitus Elevated TSH Goiter Acromegaly Morbid obesity PCOS (polycystic ovarian syndrome) 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 Diabetes type 2, uncontrolled 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 Family History Family History Father Unknown family medical history Mother Hx of type 1 diabetes mellitus Family history: reviewed and not pertinent Surgical History Surgical History S/P TIPS (transjugular intrahepatic portosystemic shunt) Previous back surgery Hx of colonoscopy Hx of endoscopy Social History Social History Household Members: Spouse Housing: House Do you presently have visiting nurse or other home services: Yes Alcohol intake: never Patient Tobacco Use Status: Tobacco use Unknown Tobacco use type: Cigarette Second Hand Smoke Exposure: Yes Substance Use Type: Marijuana Advance Directives Date on File: 07/06/23 service: No Current occupational status: disabled 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 Meds Allergies Allergy/AdvReac Type Severity Reaction Status Date / Time ibuprofen [From MOTRIN] Allergy Intermediate RASH Verified 07/25/23 16:45 penicillin V Allergy Mild hives Verified 07/25/23 16:45 codeine Allergy Unknown Verified 07/25/23 16:45 Rx- listed on H&P Active Medications: Current Medications Albuterol Sulfate (Albuterol Sulfate (0.083%) 2.5 Mg/3 Ml Vial.Neb) 2.5 mg INHALE QID PRN PRN Reason: dyspnea Fluticasone Propionate (Fluticasone Propionate 250 Mcg Blst.W.Dev) 1 puff INHALE RBID [facility] Last Admin: 07/31/23 07:47 Dose: 1 puff Glucose (Glucose Gel 15 Gm Gel..Gram.) 15 gm PO Q15M PRN; Protocol PRN Reason: per Hypoglycemia Standing Ord. Dextrose (D10) 250 mls @ 750 mls/hr IV Q15M PRN; Protocol PRN Reason: per Hypoglycemia Standing Ord. Meropenem 1 gm/ Sodium (Chloride) 100 mls @ 200 mls/hr IV Q8H [facility] Stop: 08/01/23 09:29 Last Infusion: 07/31/23 09:21 Dose: Infused Insulin Glargine (Insulin Glargine,Hum.Rec.Anlog 100 Unit/Ml 10 Ml Vial) 25 unit SUBCUT DAILY [facility] Last Admin: 07/31/23 08:16 Dose: 25 unit Insulin Human Lispro (Insulin Lispro 100 Unit/Ml 3 Ml Vial) 0 unit SUBCUT QIDACHS [facility]; Protocol Last Admin: 07/31/23 11:55 Dose: 10 unit Lactulose (Lactulose 20 Gm/30 Ml Solution) 35 gm PO TID [facility] Last Admin: 07/31/23 08:17 Dose: 35 gm Levothyroxine Sodium (Levothyroxine Sodium 75 Mcg Tablet) 75 mcg PO DAILY@0630 [facility] Last Admin: 07/31/23 05:46 Dose: 75 mcg Non-Formulary Medication (Eplerenone [Inspra]) 25 mg PO DAILY [facility] Omeprazole (Omeprazole 40 Mg Capsule.Dr) 40 mg PO BID@0630,1630 [facility] Last Admin: 07/31/23 05:46 Dose: 40 mg Ondansetron HCl (Ondansetron Hcl 4 Mg/2 Ml Vial) 4 mg IVPUSH Q8H PRN PRN Reason: Nausea and Vomiting Last Admin: 07/26/23 18:44 Dose: 4 mg Rifaximin (Rifaximin 550 Mg Tablet) 550 mg PO BID [facility] Last Admin: 07/31/23 08:16 Dose: 550 mg Sodium Chloride (0.9 % Sodium Chloride Flush 3 Ml Syringe) 3 ml IVFLUSH QSHIFT [facility] Last Admin: 07/31/23 08:14 Dose: 3 ml Torsemide (Torsemide 20 Mg Tablet) 60 mg PO DAILY [facility]; Protocol Last Admin: 07/31/23 08:16 Dose: 60 mg Home Medications ?Medication ?Instructions ?Recorded ?Confirmed ?Last Taken ?Type albuterol sulfate 90 mcg/actuation 2 puff inhalation Q6H PRN Wheezing 08/16/20 07/26/23 06/04/23 History aerosol inhaler (Ventolin HFA) blood sugar diagnostic (FreeStyle #10 ea 08/16/20 06/04/23 Unknown History Lite Strips) lancets 28 gauge (FreeStyle #100 ea 08/16/20 06/04/23 Unknown History Lancets) insulin lispro 100 unit/mL See Rx Instructions .Route .COMPLEX 05/31/22 07/26/23 07/24/23 History subcutaneous pen cholecalciferol (vitamin D3) 50 50 mcg PO DAILY 09/29/22 07/26/23 07/24/23 History mcg (2,000 unit) capsule (Vitamin D3) flash glucose sensor (FreeStyle #1 ea 09/29/22 06/04/23 Unknown History Brooke 2 Sensor kit) pen needle, diabetic 32 gauge x #1,200 ea 01/23/23 06/04/23 Unknown History (Pentips) potassium chloride 20 mEq 20 meq PO DAILY 01/23/23 07/26/23 07/24/23 History tablet,extended release(part/cryst) mometasone 200 mcg/actuation HFA 1 puff inhalation BID 04/24/23 07/26/23 07/24/23 History aerosol inhaler (Asmanex HFA) ondansetron 4 mg disintegrating 4 mg PO Q8H PRN Nausea And Vomiting 06/30/23 07/26/23 Unknown History tablet eplerenone 25 mg tablet (Inspra) 25 mg PO DAILY 07/26/23 07/26/23 07/24/23 History lactulose 10 gram/15 mL oral 10 g PO TID 07/26/23 07/26/23 07/24/23 History solution rifaximin 550 mg tablet (Xifaxan) 550 mg PO BID 07/26/23 07/26/23 07/24/23 History torsemide 20 mg tablet 60 mg PO DAILY 07/26/23 07/26/23 07/24/23 History Physical Exam 2 Vital Signs: Vital Signs: Last Vital Signs Temp 97.1 F 07/31/23 15:23 Pulse 103 H 07/31/23 15:23 Resp 20 07/31/23 15:23 BP 123/58 L 07/31/23 15:23 Pulse Ox 100 07/31/23 15:23 O2 Del Method Room Air 07/31/23 15:23 BMI result Body Mass Index 47.6 Const: General: cooperative HEENT: Head: Yes normal to inspection Face and sinus: Yes normal facial exam Mouth: Normal oral and palatal mucosa present Teeth and gingiva: d entition normal Eyes: General: appearance normal, both eyes and all related structures P upils: Equal, round and reactive pupils present Resp: Effort & Inspection: normal respiratory effort Cardio: Rate: regular rate Rhythm: regular rhythm GI: Palpation (GI): Soft to palpation and nontender : General: Yes no CVA tenderness Back/Spine/Pelvis: Back: no CVA tenderness Skin: General skin exam: no rashes or lesions noted Neuro: General: moves all extremities Cranial nerves: Yes Equal, round and reactive pupils present Extrem: General: Yes normal to inspection Psych: Other: sleepy Results Labs 07/29/23 10:49 07/29/23 12:01 Microbiology Microbiology Results: Microbiology 07/25/23 18:35 Urine Catheterized - Straight Catheter Urine Culture - Final Klebsiella pneumoniae Assessment and Plan (1) Acute hepatic encephalopathy: Status: Acute (2) UTI (urinary tract infection): Status: Acute Plan She has urinary infection likely with symptoms. d4 Merem ESBL,give six days more Bactrim DS bid.
[2023-07-31 16:20] LABS: Glucose, Whole Blood 279 mg/dL (60-115)
--- NOTE | 2023-07-31 17:21 | P.DS_ITS ---
DS: Providers Provider Date of Service: 07/31/23 Date of admission: 07/26/23 02:47 Primary care physician: Radha Anne MD Consults: 07/27/23 06:31 Consult to Gastroenterology Routine Consulting Provider: Solo Smith Reason for consultation: Hep encephalopathy, worsening anemia Has provider been notified: No 07/28/23 23:00 Consult to Wound Care Routine Reason for consultation: right great toe - diabetic ulcer? 07/30/23 07:49 Consult to Infectious Diseases Routine Consulting Provider: [facility] – [place] Infectious Disease Reason for consultation: resistant klebsiella uti Has provider been notified: No DS: Diagnosis Discharge Diagnosis (1) Acute hepatic encephalopathy: Status: Acute (2) UTI (urinary tract infection): Status: Acute DS: Summary Hospital Course Hospital Course: admission hpi Chief Complaint: Confusion Ema Aguilar is a 48 years old woman with past medical history significant for liver cirrhosis secondary to SERVIN (liver transplant) with portal hypertension (esophageal varices, ascites, s/p TIPS), morbid obesity, thrombocytopenia, hypothyroidism, type 2 DM and obstructive sleep apnea presents to emergency department after she was asked to be confused. provided part of the HPI over the phone. mentioned that the patient has not been taking her lactulose and diuretics. She denied any headache, chest pain, shortness on breath, cough, abdominal pain, nausea, vomiting or diarrhea. Denies fever or chills. Patient denied alcohol abuse, illicit drug use or tobacco smoking. In the ED, she was found to have stable vital signs. Blood workup showed pancytopenia which is at baseline. INR is 1.4. There is mild hyponatremia. Bilirubin and AST are elevated. TSH is 6.62 with normal free T4. His CT scan is unremarkable. Abdominal pelvis CT scan showed no acute process. Viral testing for COVID-19, influenza and RSV is negative. ED tx: Lactulose 30 mg PO, ceftriaxone 1 g IV Hospital course: She presented with confusion and found to have hepatic encephalopathy and which has been treated with lactulose and mental status has returned to baseline.. The encephalopathy may have been result of non compliant with lactulose and UTI. UTI has was initially treated with Ceftriaxone, however culture showed Klebsiell that was resistant to Ceftriaxone and antibiotics was changed to iv Meropenem, patient seen by infectious disease and Dr. Evangelista she recommend by mouth Bactrim 1 tablet b.i.d. for 6 more days for total 10 day course of antibiotic , recommend to check BMP in few days in hold potassium replacement while on Bactrim. Patient noted to be anemia with low platelets which is chronic d/t her liver disease, prior EGD shwoed mucosal bleeding attributed to low platelets and high INR, she has not required transfusion. She was seen by GI with recommendation to continue PPI and Iron therapy. As for Cirrhosis of the liver she is followed at [facility] and has a follow up appointment with them on 07/29 In regard to type 2 diabetes mellitus patient is blood sugar around 200 dose of Lantus reduced from 75 units to 30 units and recommend to continue insulin sliding scale and follow diabetic diet, if blood sugar noted to be elevated at home recommend to continue higher dose of Lantus. Time Attestation Discharge Coordination Time (in mins): 38 Quality: Safe Use of Opioids Does Pt have an Active Cancer Diagnosis on the Problem List?: No Quality: Stroke Does the patient have a stroke diagnosis?: No Physical Exam Vital Signs: Vital Signs: Last Vital Signs Temp 97.1 F 07/31/23 15:23 Pulse 103 H 07/31/23 15:23 Resp 20 07/31/23 15:23 BP 123/58 L 07/31/23 15:23 Pulse Ox 100 07/31/23 15:23 O2 Del Method Room Air 07/31/23 15:23 BMI result Body Mass Index 47.6 Const: Other: General awake alert x3, resting comfortably in no acute distress. Neck supple no JVD. CVS regular rate rhythm, Respiratory lungs clear to auscultation, no respiratory distress, no wheeze, no rhonchi. Gastrointestinal abdomen soft, non tender, bowel sounds audible, no guarding , no rigidity. Extremities no edema. Neuro non focal Skin no rash, old blood blister on nail and left big toe Psych appropriate affect DS: Data Data Completed and Pending Completed studies during hospitalization [Text1]: Procedures Control Bleeding in Gastrointestinal Tract, Via Natural or Artificial Opening Endoscopic (06/29/23) Drainage of Peritoneal Cavity, Percutaneous Approach (06/21/22) Insertion of Endotracheal Airway into Trachea, Via Natural or Artificial Opening (06/21/22) Insertion of Infusion Device into Right Basilic Vein, Percutaneous Approach (05/30/22) Insertion of Infusion Device into Superior Vena Cava, Percutaneous Approach (06/21/22) Introduction of Mineral-based Topical Hemostatic Agent into Upper GI, Via Natural or Artificial Opening Endoscopic, [employer] 6 (06/29/23) Introduction of Vasopressor into Central Vein, Percutaneous Approach (06/21/22) Occlusion of Esophageal Vein with Extraluminal Device, Via Natural or Artificial Opening Endoscopic (04/24/23) Respiratory Ventilation, Greater than 96 Consecutive Hours (06/21/22) Transfusion of Nonautologous Platelets into Peripheral Vein, Percutaneous Approach (06/29/23) Transfusion of Nonautologous Red Blood Cells into Peripheral Vein, Percutaneous Approach (06/29/23) Ultrasonography of Superior Vena Cava, Guidance (06/21/22) Labs on day of discharge: Laboratory Results - last 24 hr 07/30/23 07/31/23 07/31/23 20:49 07:34 11:14 POC Glucose 254 H 137 H 260 H 07/31/23 16:11 POC Glucose 279 H Discharge Plan Discharge Anticipated Discharge Date/Time: 07/31/23 14:07 Patient Disposition: Home Health Service Discharge Diagnosis: Hepatic encephalopathy, UTI, chronic anemia Referrals: [facility] [Outside] - 3-5 Days (Resume VNA services) Radha Anne MD [Primary Care Provider] - 08/10/23 1:00 pm (You have a follow up appointment schedule. If you can not make this appointment please call doctors office.) Discharge Medications: New insulin glargine [Lantus U-100 Insulin] 100 unit/mL Solution 30 unit subcut DAILY Qty: 10 0RF levothyroxine 75 mcg Tablet 75 mcg PO DAILY@0630 Qty: 90 0RF sulfamethoxazole-trimethoprim [Bactrim DS] 800-160 mg tablet 1 tab PO BID Qty: 12 0RF Continued insulin lispro 100 unit/mL insulin pen See Rx Instructions .ROUTE .COMPLEX Rx Instructions: 26 units subcutaneously TIDAC if blood sugar <200; 30 units subcutaneously TIDAC if blood sugar >200 ondansetron 4 mg Tablet,Disintegrating 4 mg PO Q8H PRN (Reason: Nausea And Vomiting) omeprazole 40 mg Capsule,Delayed Release(Dr/Ec) 40 mg PO BID@0630,1630 Qty: 160 0RF ferrous sulfate 324 mg (65 mg iron) Tablet,Delayed Release (Dr/Ec) 324 mg PO BID Qty: 60 0RF eplerenone [Inspra] 25 mg tablet 25 mg PO DAILY Xifaxan 550 mg tablet 550 mg PO BID torsemide 20 mg tablet 60 mg PO DAILY lactulose 10 gram/15 mL solution 10 g PO TID Asmanex HFA 200 mcg/actuation HFA aerosol inhaler 1 puff INHALATION BID atorvastatin 20 mg Tablet 20 mg PO DAILY Qty: 30 0RF (DME) FreeStyle Lite Strips Strip See Rx Instructions .ROUTE .MEDSUPPLY Qty: 10 Rx Instructions: test 3x a day (DME) lancets [FreeStyle Lancets] 28 gauge misc See Rx Instructions .ROUTE .MEDSUPPLY Qty: 100 Rx Instructions: test 3x a day albuterol sulfate [Ventolin HFA] 90 mcg/actuation HFA aerosol inhaler 2 puff inhalation Q6H PRN (Reason: Wheezing) cholecalciferol (vitamin D3) [Vitamin D3] 50 mcg (2,000 unit) capsule 50 mcg PO DAILY (DME) FreeStyle Brooke 2 Sensor Kit See Rx Instructions .ROUTE DAILY Qty: 1 Rx Instructions: As directed (DME) pen needle, diabetic [Pentips] 32 gauge x 5/32 needle See Rx Instructions .ROUTE .MEDSUPPLY Qty: 1200 Rx Instructions: As directed Held potassium chloride 20 mEq tablet,ER particles/crystals 20 meq PO DAILY Hold Instructions: Resume on 08/06/23. Discontinued insulin glargine U-300 conc [Toujeo Max U-300 SoloStar] 300 unit/mL (3 mL) insulin pen 75 unit subcut BEDTIME levothyroxine 50 mcg tablet 50 mcg PO DAILY@0600 Discharge Orders: Discharge Order (Routine); Ordered 07/31/23 Ordered By: Marilee Tejeda Diet: Diabetic diet Activity on Discharge: As tolerated Stand Alone Forms: Patient Portal Discharge page Print Language: Danish Other Ambulatory Orders: Basic Metabolic Panel (Routine) Timeframe: [id number] Facility: [facility] - Location: Laboratory Ordered By: Marilee Tejeda Care Plan Goals: recovery from encephalopathy and resumptin of baseline functioning Resistant Klebsiella UTI take Bactrim ds 1 tablet twice daily for 6 more days Hold potassium supplement while on Bactrim Dose of Lantus reduced from 75 units to 30 units , main increase back to higher dose of Lantus if noted to have elevated blood sugars continue sliding scale insulin Dose of Synthroid increased to 75 mcg follow TSH in 6 weeks Check BMP on 08/03 to assess kidney function and potassium while on Bactrim Health Concerns: hepatic encephalopathy chronic anemia chronic thrombocytopenia Plan of Treatment: continue taking all your medications as recommended without skipping doses take bactrim for UTI follow up with liver clinic as previously planned Assessment: see above
--- NOTE | 2023-07-31 19:26 | PC.NURSE ---
contracts representative called but nobody picked the phone, message left on the answering machine. Also Moro texted with no response. Unit staff was used to interpret since ambulance was here and pt. was ready to be discharged.
== END 2023-07-31 19:28 | disposition home health service (06) ==
LOC: HO.ED 07-26 01:49 → HO.EDOVER 07-26 05:14 → HO.S3 07-26 07:33
PROVIDERS: Internal Medicine; Physician Assistant Medical; Admitting Provider Internal Medicine; Emergency Provider Emergency Medicine Emergency Medical Services; PCP Family Medicine; Visit Provider Hospitalist
DX: K76.82 Hepatic encephalopathy (principal); D61.818 Other pancytopenia; Z76.82 Awaiting organ transplant status; B96.1 Klebsiella pneumoniae [K. pneumoniae] as the cause of diseases classified elsewhere; E03.9 Hypothyroidism, unspecified; E11.9 Type 2 diabetes mellitus without complications; E28.2 Polycystic ovarian syndrome; K74.69 Other cirrhosis of liver; G47.33 Obstructive sleep apnea (adult) (pediatric); K75.81 Nonalcoholic steatohepatitis (NASH); Z16.19 Resistance to other specified beta lactam antibiotics; E78.2 Mixed hyperlipidemia; N39.0 Urinary tract infection, site not specified; E66.01 Morbid (severe) obesity due to excess calories; Z68.42 Body mass index [BMI] 45.0-49.9, adult; Z20.822 Contact with and (suspected) exposure to COVID-19; Z91.148 Patient's other noncompliance with medication regimen for other reason; Z79.4 Long term (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 insulin; Z79.890 Hormone replacement therapy; Z79.899 Other long term (current) drug therapy
CPT/HCPCS: 0241U; 36410; 36415; 70450; 71045; 74177; 76705; 80048; 80051; 80053; 80076; 81001; 82140; 82803; 82947; 83735; 84439; 84443; 84484; 84702; 85014; 85018; 85025; 85027; 85610; 86850; 86900; 86901; 86923; 87086; 87088; 87186; 93005; 94640; 99285; C1751; C9113; J0696; J2185; J2405; Q9967

== ENCOUNTER → 2023-07-25 16:47 | Outpatient (BNV) | payer MEDICAID, SELFPAY | PROVIDERS: Admitting Provider Internal Medicine; Emergency Provider Emergency Medicine Emergency Medical Services; Visit Provider Internal Medicine Cardiovascular Disease | DX: R41.82 Altered mental status, unspecified (principal) | CPT/HCPCS: 93010 ==

== ENCOUNTER → 2023-07-26 02:47 | Outpatient (BNV) | payer MEDICAID, SELFPAY | PROVIDERS: Admitting Provider Internal Medicine; Emergency Provider Emergency Medicine Emergency Medical Services; Visit Provider Internal Medicine | DX: K76.82 Hepatic encephalopathy (principal); N39.0 Urinary tract infection, site not specified | CPT/HCPCS: 99223; 99232; 99233; 99239; 99499; G0180 ==

== ENCOUNTER → 2023-07-26 02:47 | Outpatient (BNV) | payer MEDICAID, SELFPAY | PROVIDERS: Admitting Provider Internal Medicine; Emergency Provider Emergency Medicine Emergency Medical Services; PCP Family Medicine; Visit Provider Internal Medicine | DX: K76.82 Hepatic encephalopathy (principal); N39.0 Urinary tract infection, site not specified | CPT/HCPCS: 99222 ==

== ENCOUNTER → 2023-07-26 02:47 | Outpatient (BNV) | payer MEDICAID, SELFPAY | PROVIDERS: Admitting Provider Internal Medicine; Emergency Provider Emergency Medicine Emergency Medical Services; Visit Provider Internal Medicine Gastroenterology | DX: K76.82 Hepatic encephalopathy (principal); D64.9 Anemia, unspecified | CPT/HCPCS: 99223 ==

== ENCOUNTER 2023-09-01 15:04 | Inpatient (IN) | payer MEDICAID, SELFPAY ==
[2023-09-01 15:47] VITALS: BP 138/60; PULSE 86; RESP 16; TEMP 36.1; O2SAT 100; BMI 40.7
--- NOTE | 2023-09-01 15:59 | ECG_ITS ---
Test Reason : NAUSEA Blood Pressure : / mmHG Vent. 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
--- NOTE | 2023-09-01 16:00 | ED_ITS ---
HPI - General Adult General Chief complaint: Nausea/Vomiting/Diarrhea Stated complaint: vomiting/shakey thinks due liver? 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 She wants her labs checked to make sure everything is okay. She denies pain, falls, fevers, abdominal pain, increased swelling or any other complaints. She does follow with [facility] transplant team as she is on the list. She has been taking her medications but only having 1 bowel movement a day per her and family. MD complaint: shaky, nausea, not herself Onset (ago): day(s) (1) Radiation: non-radiation Severity: moderate Relieving factors: rest Exacerbating factors: none Associated symptoms: loss of appetite, malaise and nausea/vomiting Treatments prior to arrival: none Related Data Home Medications ?Medication ?Instructions ?Recorded ?Confirmed albuterol sulfate 90 mcg/actuation 2 puff inhalation Q6H PRN Wheezing 08/16/20 07/26/23 aerosol inhaler (Ventolin HFA) blood sugar diagnostic (FreeStyle #10 ea 08/16/20 06/04/23 Lite Strips) lancets 28 gauge (FreeStyle #100 ea 08/16/20 06/04/23 Lancets) insulin lispro 100 unit/mL See Rx Instructions .Route .COMPLEX 05/31/22 07/26/23 subcutaneous pen cholecalciferol (vitamin D3) 50 50 mcg PO DAILY 09/29/22 07/26/23 mcg (2,000 unit) capsule (Vitamin D3) flash glucose sensor (FreeStyle #1 ea 09/29/22 06/04/23 Brooke 2 Sensor kit) pen needle, diabetic 32 gauge x #1,200 ea 01/23/23 06/04/23/32 (Pentips) potassium chloride 20 mEq 20 meq PO DAILY 01/23/23 07/26/23 tablet,extended release(part/cryst) mometasone 200 mcg/actuation HFA 1 puff inhalation BID 04/24/23 07/26/23 aerosol inhaler (Asmanex HFA) ondansetron 4 mg disintegrating 4 mg PO Q8H PRN Nausea And Vomiting 06/30/23 07/26/23 tablet eplerenone 25 mg tablet (Inspra) 25 mg PO DAILY 07/26/23 07/26/23 lactulose 10 gram/15 mL oral 10 g PO TID 07/26/23 07/26/23 solution rifaximin 550 mg tablet (Xifaxan) 550 mg PO BID 07/26/23 07/26/23 torsemide 20 mg tablet 60 mg PO DAILY 07/26/23 07/26/23 Previous Rx's ?Medication ?Instructions ?Recorded atorvastatin 20 mg tablet 20 mg PO DAILY #30 tabs 04/28/23 ferrous sulfate 324 mg (65 mg 324 mg PO BID #60 tabs 07/03/23 iron) tablet,delayed release omeprazole 40 mg capsule,delayed 40 mg PO BID@0630,1630 #160 caps 07/03/23 release insulin glargine 100 unit/mL 30 unit (0.3 mL) subcut DAILY #10 07/31/23 subcutaneous solution (Lantus mL U-100 Insulin) levothyroxine 75 mcg tablet 75 mcg PO DAILY@0630 #90 tabs 07/31/23 sulfamethoxazole 800 1 tab PO BID #12 tabs 07/31/23 mg-trimethoprim 160 mg tablet (Bactrim DS) Allergies Allergy/AdvReac Type Severity Reaction Status Date / Time ibuprofen [From MOTRIN] Allergy Intermediate RASH Verified 09/01/23 15:49 penicillin V Allergy Mild hives Verified 09/01/23 15:49 codeine Allergy Unknown Verified 09/01/23 15:49 Rx- listed on H&P Review of Systems 2 Review of Systems: Constitutional : No Weight loss, No Fever, No Chills, pos fatigue ENT/Mouth : No sore throat, No Rhinorrhea Eyes: No Swelling, No Redness Cardiovascular : No Chest Pain, No SOB, NoEdema Respiratory : No Cough, No Sputum, No Wheezing Gastrointestinal : Positive Nausea, Positive Vomiting, no Diarrhea, no abdominal Pain, No Hematochezia, No Melena Genitourinary : No Dysuria, No Urinary Frequency, No Hematuria, No Urgency Musculoskeletal : No joint pain, No Myalgias, No Joint Swelling Skin : No Skin Lesions, No rash Neuro : pos Weakness, No Numbness, No Dizziness, No Headache Psych : No Anxiety/Panic, No Depression All other systems reviewed and are negative. [facility] Past Medical History Attestation statement: The following information was validated with the patient. 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 Diabetes type 2, uncontrolled 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 Surgical History S/P TIPS (transjugular intrahepatic portosystemic shunt) Previous back surgery Hx of colonoscopy Hx of endoscopy Family History Family History Father Unknown family medical history Mother Hx of type 1 diabetes mellitus Social History Social History Household Members: Spouse Housing: House Do you presently have visiting nurse or other home services: Yes Alcohol intake: never Patient Tobacco Use Status: Former Tobacco user Quit Date: 7 yrs ago Tobacco use type: Cigarette Smoked in Last 30 Days: No Second Hand Smoke Exposure: Yes Use of substances other than those prescribed or required for medical reasons: No Substance Use Type: Marijuana Advance Directives: Yes Advance Directives on File: Yes Advance Directives Date on File: 07/06/23 Do you have a plan to hurt others: No Plan Nutrition Risks: No Nutritional Risk Patient : No service: No Current occupational status: disabled 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 Oriented X3. No acute distress. Eyes: Pupils equal, round and reactive to light. scleral icterus ENT: Pharynx normal. has fine tongue fasciculations Neck: Normal inspection. Neck supple. CVS: Normal heart rate and rhythm. Pulses normal. Respiratory: No respiratory distress. Breath sounds normal. Abdomen: Soft and nontender. Skin: Skin warm and dry. Normal skin color. Normal skin turgor. Extremities: No lower extremity edema. No calf ttp Neuro: Oriented X 3. No motor deficit. No sensory deficit. slight asterixis Course Course Course Narrative: RME: 48-year-old female presents to ED for nausea, vomiting, and tremors. Patient recently admitted at [facility] for encephalopathy. Patient is on a transplant list. Patient is presently alert oriented x3. Negative for neuro deficits. Negative for any abdominal tenderness. Will do basic labs and EKG. Medications Administered Discontinued Medications Generic Name Dose Route Start Last Admin Trade Name Freq PRN Reason Stop Dose Admin Lactulose 20 gm 09/01/23 22:34 09/01/23 23:52 Lactulose 20 Gm/30 Ml Solution PO 09/01/23 22:35 20 gm ONCE ONE Administration Ondansetron HCl 4 mg 09/01/23 22:34 09/01/23 23:52 Ondansetron Hcl 4 Mg/2 Ml Vial IVPUSH 09/01/23 22:35 4 mg ONCE ONE Administration Medical Decision Making Medical Decision Making MDM Narrative: 48 yo female with PMH of HTN, HLD, liver cirrhosis secondary to SERVIN with hx of ascites s/p TIPS chronic thrombocytopenia and hepatic encephalopathy, AMY, PCOS, obesity, IDDM, asthma here with c/o nausea/vomiting feeling fatigue and shaking x 24 hours here asking for her labs to be done. She does have fine tremors and tongue fasciculations on exam. At this time the patient has improved H/H from baseline. Ammonia is elevated and she admits to only one BM per day. She denies fevers, GIB symptoms, abdominal pain Differential Diagnosis Differential Diagnoses: The differential diagnosis associated with the presentation includes hepatic encephalopathy, anemia, dehydration Admission/Observation Consideration of admission/observation: Escalation of care including admission/observation considered admit given elevated ammonia Consult Healthcare Provider Management of the patient was discussed with: Hospitalist (will admit) Lab Data MDM Lab Attestation statement: I reviewed the patient's lab results. 09/02/23 04:46 09/02/23 04:46 Labs: Lab Results 09/01/23 09/01/23 09/01/23 Range/Units 16:14 16:14 16:14 WBC 8.4 (4.8-10.8) X10*3/uL RBC 2.73 L D (4.20-5.50) X10*6/uL Hgb 9.0 L (12.0-16.0) g/dl Hct 25.3 L (37.0-47.0) % MCV 92.7 (80.0-98.0) fL MCH 33.0 (27.0-33.0) pg MCHC 35.6 H (31.0-35.0) g/dl RDW 19.9 H (11.0-16.0) % Plt Count 84 L D (160-400) X10*3/uL MPV 10.2 (9.4-12.3) fL Immature Gran % (Auto) 0.7 H (0.0-0.4) % Neut % (Auto) 84.1 H (45-73) % Lymph % (Auto) 6.2 L (20-40) % Prentiss % (Auto) 7.0 (2-11) % Eos % (Auto) 1.4 (0-4) % Baso % (Auto) 0.6 (0-2) % Lymph # (Auto) 0.5 L (1.2-4.9) X10*3/uL Prentiss # (Auto) 0.6 (0.1-1.2) X10*3/uL Eos # (Auto) 0.1 (0.0-0.4) X10*3/uL Baso # (Auto) 0.1 (0.0-0.2) X10*3/uL Abs Immat Gran (auto) 0.06 H (0.00-0.03) X10*3/uL Absolute Neuts (auto) 7.1 (2.0-8.3) x10*3/uL Absolute Nucleated RBC 0.000 (0.0-0.012) X10*3/uL Nucleated RBC % (auto) 0.0 (0.0-0.2) /100WBC Hold Purple Top SEE NOTE PT (11.1-13.3) SEC INR (0.9-1.1) APTT (26.0-36.8) SEC Sodium Cancelled 134 L Potassium Cancelled 4.5 Chloride Cancelled Carbon Dioxide Anion Gap BUN Creatinine Estim Creat Clear Calc Estimated GFR Random Glucose Calcium Magnesium Total Bilirubin AST ALT Alkaline Phosphatase Ammonia (13-55) umol/L Troponin I High Sens (<3.5-17.0) ng/L Total Protein Albumin Lipase Beta HCG, Quant mIU/mL 09/01/23 09/01/23 09/01/23 Range/Units 16:14 16:14 16:14 WBC (4.8-10.8) X10*3/uL RBC (4.20-5.50) X10*6/uL Hgb (12.0-16.0) g/dl Hct (37.0-47.0) % MCV (80.0-98.0) fL MCH (27.0-33.0) pg MCHC (31.0-35.0) g/dl RDW (11.0-16.0) % Plt Count (160-400) X10*3/uL MPV (9.4-12.3) fL Immature Gran % (Auto) (0.0-0.4) % Neut % (Auto) (45-73) % Lymph % (Auto) (20-40) % Prentiss % (Auto) (2-11) % Eos % (Auto) (0-4) % Baso % (Auto) (0-2) % Lymph # (Auto) (1.2-4.9) X10*3/uL Prentiss # (Auto) (0.1-1.2) X10*3/uL Eos # (Auto) (0.0-0.4) X10*3/uL Baso # (Auto) (0.0-0.2) X10*3/uL Abs Immat Gran (auto) (0.00-0.03) X10*3/uL Absolute Neuts (auto) (2.0-8.3) x10*3/uL Absolute Nucleated RBC (0.0-0.012) X10*3/uL Nucleated RBC % (auto) (0.0-0.2) /100WBC Hold Purple Top PT (11.1-13.3) SEC INR (0.9-1.1) APTT (26.0-36.8) SEC Sodium Potassium Chloride 101 Carbon Dioxide Cancelled 25 Anion Gap Cancelled 13 BUN Cancelled Creatinine Estim Creat Clear Calc Estimated GFR Random Glucose Calcium Magnesium Total Bilirubin AST ALT Alkaline Phosphatase Ammonia (13-55) umol/L Troponin I High Sens (<3.5-17.0) ng/L Total Protein Albumin Lipase Beta HCG, Quant mIU/mL 09/01/23 09/01/23 09/01/23 Range/Units 16:14 16:14 16:14 WBC (4.8-10.8) X10*3/uL RBC (4.20-5.50) X10*6/uL Hgb (12.0-16.0) g/dl Hct (37.0-47.0) % MCV (80.0-98.0) fL MCH (27.0-33.0) pg MCHC (31.0-35.0) g/dl RDW (11.0-16.0) % Plt Count (160-400) X10*3/uL MPV (9.4-12.3) fL Immature Gran % (Auto) (0.0-0.4) % Neut % (Auto) (45-73) % Lymph % (Auto) (20-40) % Prentiss % (Auto) (2-11) % Eos % (Auto) (0-4) % Baso % (Auto) (0-2) % Lymph # (Auto) (1.2-4.9) X10*3/uL Prentiss # (Auto) (0.1-1.2) X10*3/uL Eos # (Auto) (0.0-0.4) X10*3/uL Baso # (Auto) (0.0-0.2) X10*3/uL Abs Immat Gran (auto) (0.00-0.03) X10*3/uL Absolute Neuts (auto) (2.0-8.3) x10*3/uL Absolute Nucleated RBC (0.0-0.012) X10*3/uL Nucleated RBC % (auto) (0.0-0.2) /100WBC Hold Purple Top PT (11.1-13.3) SEC INR (0.9-1.1) APTT (26.0-36.8) SEC Sodium Potassium Chloride Carbon Dioxide Anion Gap BUN 20 H Creatinine Cancelled 1.22 Estim Creat Clear Calc Cancelled 65.1 Estimated GFR Cancelled Random Glucose Calcium Magnesium Total Bilirubin AST ALT Alkaline Phosphatase Ammonia (13-55) umol/L Troponin I High Sens (<3.5-17.0) ng/L Total Protein Albumin Lipase Beta HCG, Quant mIU/mL 09/01/23 09/01/23 09/01/23 Range/Units 16:14 16:14 16:14 WBC (4.8-10.8) X10*3/uL RBC (4.20-5.50) X10*6/uL Hgb (12.0-16.0) g/dl Hct (37.0-47.0) % MCV (80.0-98.0) fL MCH (27.0-33.0) pg MCHC (31.0-35.0) g/dl RDW (11.0-16.0) % Plt Count (160-400) X10*3/uL MPV (9.4-12.3) fL Immature Gran % (Auto) (0.0-0.4) % Neut % (Auto) (45-73) % Lymph % (Auto) (20-40) % Prentiss % (Auto) (2-11) % Eos % (Auto) (0-4) % Baso % (Auto) (0-2) % Lymph # (Auto) (1.2-4.9) X10*3/uL Prentiss # (Auto) (0.1-1.2) X10*3/uL Eos # (Auto) (0.0-0.4) X10*3/uL Baso # (Auto) (0.0-0.2) X10*3/uL Abs Immat Gran (auto) (0.00-0.03) X10*3/uL Absolute Neuts (auto) (2.0-8.3) x10*3/uL Absolute Nucleated RBC (0.0-0.012) X10*3/uL Nucleated RBC % (auto) (0.0-0.2) /100WBC Hold Purple Top PT (11.1-13.3) SEC INR (0.9-1.1) APTT (26.0-36.8) SEC Sodium Potassium Chloride Carbon Dioxide Anion Gap BUN Creatinine Estim Creat Clear Calc Estimated GFR 47 Random Glucose Cancelled 314 H Calcium Cancelled 8.7 Magnesium Cancelled Total Bilirubin AST ALT Alkaline Phosphatase Ammonia (13-55) umol/L Troponin I High Sens (<3.5-17.0) ng/L Total Protein Albumin Lipase Beta HCG, Quant mIU/mL 09/01/23 09/01/23 09/01/23 Range/Units 16:14 16:14 16:14 WBC (4.8-10.8) X10*3/uL RBC (4.20-5.50) X10*6/uL Hgb (12.0-16.0) g/dl Hct (37.0-47.0) % MCV (80.0-98.0) fL MCH (27.0-33.0) pg MCHC (31.0-35.0) g/dl RDW (11.0-16.0) % Plt Count (160-400) X10*3/uL MPV (9.4-12.3) fL Immature Gran % (Auto) (0.0-0.4) % Neut % (Auto) (45-73) % Lymph % (Auto) (20-40) % Prentiss % (Auto) (2-11) % Eos % (Auto) (0-4) % Baso % (Auto) (0-2) % Lymph # (Auto) (1.2-4.9) X10*3/uL Prentiss # (Auto) (0.1-1.2) X10*3/uL Eos # (Auto) (0.0-0.4) X10*3/uL Baso # (Auto) (0.0-0.2) X10*3/uL Abs Immat Gran (auto) (0.00-0.03) X10*3/uL Absolute Neuts (auto) (2.0-8.3) x10*3/uL Absolute Nucleated RBC (0.0-0.012) X10*3/uL Nucleated RBC % (auto) (0.0-0.2) /100WBC Hold Purple Top PT (11.1-13.3) SEC INR (0.9-1.1) APTT (26.0-36.8) SEC Sodium Potassium Chloride Carbon Dioxide Anion Gap BUN Creatinine Estim Creat Clear Calc Estimated GFR Random Glucose Calcium Magnesium 2.1 Total Bilirubin Cancelled 3.1 H AST Cancelled 35 H ALT Cancelled Alkaline Phosphatase Ammonia (13-55) umol/L Troponin I High Sens (<3.5-17.0) ng/L Total Protein Albumin Lipase Beta HCG, Quant mIU/mL 09/01/23 09/01/23 09/01/23 Range/Units 16:14 16:14 16:14 WBC (4.8-10.8) X10*3/uL RBC (4.20-5.50) X10*6/uL Hgb (12.0-16.0) g/dl Hct (37.0-47.0) % MCV (80.0-98.0) fL MCH (27.0-33.0) pg MCHC (31.0-35.0) g/dl RDW (11.0-16.0) % Plt Count (160-400) X10*3/uL MPV (9.4-12.3) fL Immature Gran % (Auto) (0.0-0.4) % Neut % (Auto) (45-73) % Lymph % (Auto) (20-40) % Prentiss % (Auto) (2-11) % Eos % (Auto) (0-4) % Baso % (Auto) (0-2) % Lymph # (Auto) (1.2-4.9) X10*3/uL Prentiss # (Auto) (0.1-1.2) X10*3/uL Eos # (Auto) (0.0-0.4) X10*3/uL Baso # (Auto) (0.0-0.2) X10*3/uL Abs Immat Gran (auto) (0.00-0.03) X10*3/uL Absolute Neuts (auto) (2.0-8.3) x10*3/uL Absolute Nucleated RBC (0.0-0.012) X10*3/uL Nucleated RBC % (auto) (0.0-0.2) /100WBC Hold Purple Top PT (11.1-13.3) SEC INR (0.9-1.1) APTT (26.0-36.8) SEC Sodium Potassium Chloride Carbon Dioxide Anion Gap BUN Creatinine Estim Creat Clear Calc Estimated GFR Random Glucose Calcium Magnesium Total Bilirubin AST ALT 16 Alkaline Phosphatase Cancelled 135 H Ammonia (13-55) umol/L Troponin I High Sens 4.5 D (<3.5-17.0) ng/L Total Protein Cancelled 7.7 Albumin Cancelled Lipase Beta HCG, Quant mIU/mL 09/01/23 09/01/23 09/01/23 Range/Units 16:14 16:14 17:20 WBC (4.8-10.8) X10*3/uL RBC (4.20-5.50) X10*6/uL Hgb (12.0-16.0) g/dl Hct (37.0-47.0) % MCV (80.0-98.0) fL MCH (27.0-33.0) pg MCHC (31.0-35.0) g/dl RDW (11.0-16.0) % Plt Count (160-400) X10*3/uL MPV (9.4-12.3) fL Immature Gran % (Auto) (0.0-0.4) % Neut % (Auto) (45-73) % Lymph % (Auto) (20-40) % Prentiss % (Auto) (2-11) % Eos % (Auto) (0-4) % Baso % (Auto) (0-2) % Lymph # (Auto) (1.2-4.9) X10*3/uL Prentiss # (Auto) (0.1-1.2) X10*3/uL Eos # (Auto) (0.0-0.4) X10*3/uL Baso # (Auto) (0.0-0.2) X10*3/uL Abs Immat Gran (auto) (0.00-0.03) X10*3/uL Absolute Neuts (auto) (2.0-8.3) x10*3/uL Absolute Nucleated RBC (0.0-0.012) X10*3/uL Nucleated RBC % (auto) (0.0-0.2) /100WBC Hold Purple Top PT 16.7 H (11.1-13.3) SEC INR 1.4 H (0.9-1.1) APTT 35.4 (26.0-36.8) SEC Sodium Potassium Chloride Carbon Dioxide Anion Gap BUN Creatinine Estim Creat Clear Calc Estimated GFR Random Glucose Calcium Magnesium Total Bilirubin AST ALT Alkaline Phosphatase Ammonia 98 H (13-55) umol/L Troponin I High Sens (<3.5-17.0) ng/L Total Protein Albumin 3.1 L Lipase Cancelled 39 Beta HCG, Quant < 2 mIU/mL Independent Interpretation I performed an independent interpretation of an: EKG Interpretation: Rate: 86 Rhythm: NSR [employer]: left Normal P waves. Normal JAN. low voltage QRS complex. ST T wave : inverted t waves V1, artifact in lateral leads, inverted t waves III and aVF qTC: 423 prior studies: no change from priors The study has been interpreted contemporaneously by me. . Independent Historian Clinical information obtained from an independent historian. History obtained from or confirmed by: Other (family) External Record Review External record reviewed: Inpatient record and Office record Discharge Plan Discharge Clinical Impression: Encephalopathy, hepatic Fatigue Qualifiers: Fatigue type: unspecified Qualified Code(s): R53.83 - Other fatigue Nausea & vomiting Qualifiers: Vomiting type: unspecified Qualified Code(s): R11.2 - Nausea with vomiting, unspecified Patient Disposition: Admitted As Inpatient
[2023-09-01 16:23] LABS: MANUAL DIFF FLAG NO
[2023-09-01 16:25] LABS: Basophils Absolute Auto 0.1 X10*3/uL (0.0-0.2); Basophils Percent Auto 0.6 % (0-2); Eosinophils Absolute Auto 0.1 X10*3/uL (0.0-0.4); Eosinophils Percent Auto 1.4 % (0-4); Hematocrit 25.3 % (37.0-47.0); Imm Gran Abs Auto 0.06 X10*3/uL (0.00-0.03); Imm Gran Pct Auto 0.7 % (0.0-0.4); Lymphocytes Absolute Auto 0.5 X10*3/uL (1.2-4.9); Lymphocytes Percent Auto 6.2 % (20-40); Mean Corpuscular HGB Conc 35.6 g/dl (31.0-35.0); Mean Corpuscular Volume 92.7 fL (80.0-98.0); Mean Platelet Volume 10.2 fL (9.4-12.3); Monocytes Absolute Auto 0.6 X10*3/uL (0.1-1.2); Neutrophils Absolute Auto 7.1 x10*3/uL (2.0-8.3); Neutrophils Percent Auto 84.1 % (45-73); Red Blood Count 2.73 X10*6/uL (4.20-5.50); Red Cell Distribution Width 19.9 % (11.0-16.0); White Blood Count 8.4 X10*3/uL (4.8-10.8)
[2023-09-01 16:27] LABS: Platelet Count 84 X10*3/uL (160-400)
[2023-09-01 17:05] LABS: Alanine Aminotransferase 16 U/L (0-31); Albumin Level 3.1 g/dL (3.5-5.0); Alkaline Phosphatase 135 U/L (39-117); Anion Gap 13 (12-20); Aspartate Amino Transferase 35 U/L (5-31); Bilirubin Total 3.1 mg/dL (0.0-1.0); Blood Urea Nitrogen 20 mg/dL (9-16); Calcium 8.7 mg/dL (8.4-10.2); Carbon Dioxide 25 mmol/L (22-29); Chloride 101 mmol/L (96-108); Creatinine Clr Calc Pharmacy 65.1; Estimated Glomerular Filt Rate 47; Glucose Random 314 mg/dL (60-115); Lipase 39 U/L (8-78); Magnesium 2.1 mg/dL (1.6-2.6); Potassium 4.5 mmol/L (3.3-5.1); Sodium 134 mmol/L (135-145); Total Protein 7.7 g/dL (6.5-8.0)
[2023-09-01 17:06] LABS: Troponin-I High Sensitivity 4.5 ng/L (<3.5-17.0)
[2023-09-01 17:11] LABS: HCG Quantitative < 2 mIU/mL
[2023-09-01 17:34] LABS: Ammonia 98 umol/L (13-55)
[2023-09-01 17:40] LABS: INTERNATIONAL NORM RATIO 1.4 (0.9-1.1); Prothrombin Time 16.7 SEC (11.1-13.3)
[2023-09-01 17:43] LABS: Partial Thromboplastin Time 35.4 SEC (26.0-36.8)
[2023-09-01 21:57] VITALS: BP 127/55; PULSE 92; RESP 18; TEMP 36.6; O2SAT 100
[2023-09-01 23:41] VITALS: BP 128/54; PULSE 85; RESP 16; TEMP 37.1; O2SAT 98
--- NOTE | 2023-09-01 23:48 | MHC.EDTECH ---
Pt reminded she needs urine sample, states she does not have to go at this time. She was instructed how to do and where bathroom is and to ring when done. Dr. Rick ponce.
[2023-09-01] MEDS: Lactulose 20 GM/30 ML SOLUTION PO (23:52)
[2023-09-01] MEDS: ondansetron HCL 4 MG/2 ML VIAL IVPUSH (23:52)
--- NOTE | 2023-09-02 01:05 | PC.NURSE ---
pt resting comfortably with eyes closed, breathing even and unlabored. no apparent distress noted at this time. call cash w/in reach
[2023-09-02 02:00] LABS: Appearance Urine Clear; Color Urine Yellow; Glucose Urine UA 100 mg/dL (Negative); Leukocyte Esterase Urine Negative (Negative); Nitrite Urine Negative (Negative); Specific Gravity - Urine 1.015 (1.005-1.025); Urine Blood Negative (Negative); Urine Ketones Negative (Negative); Urine Protein Negative (Neg-Trace)
--- NOTE | 2023-09-02 03:42 | P.HPHOSP_ITS ---
History of Present Illness Date of Service: 09/02/23 Attending physician on admission: Jeff Mack Chief Complaint: Tremulous Ema Aguilar is a 48 years old woman with past medical history significant for liver cirrhosis secondary to SERVIN (liver transplant) with portal hypertension (esophageal varices, ascites, s/p TIPS), morbid obesity, thrombocytopenia, hypothyroidism, type 2 DM and obstructive sleep apnea presents to ED complaining of feeling tremulous and nauseous. She also had an event of nonbloody vomiting and mild abdominal discomfort. Patient also reported feeling a little bit confused. Denies bloody or black stools. She also denies headache. She stated that she has been taking her medications as prescribed and has not missed any dose of her lactulose. There are no cardiopulmonary or genitourinary symptoms reported. Denies alcohol abuse, tobacco smoking or illicit drug use In the ED, she was found to have stable vital signs. Blood workup showed no leukocytosis (however, WBC count is higher than her baseline (3.8-4.7). Platelets level is 8.4. There are no electrolyte imbalances (corrected Na+ is 137). There is hyperglycemia 314. AST and bilirubin are elevated. Ammonia is 98 (it was 71 last month). Urinalysis showed no UTI. ECG showed normal sinus rhythm. ED tx: Zofran 4 mg IV lactulose 20 g PO. Review of Systems 2 Review of Systems: All 12 systems were reviewed and normal except as noted in HPI. 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 Diabetes type 2, uncontrolled 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 Family History Father Unknown family medical history Mother Hx of type 1 diabetes mellitus Surgical History S/P TIPS (transjugular intrahepatic portosystemic shunt) Previous back surgery Hx of colonoscopy Hx of endoscopy Social History Household Members: Spouse Housing: House Do you presently have visiting nurse or other home services: Yes Alcohol intake: never Patient Tobacco Use Status: Tobacco use Unknown Tobacco use type: Cigarette Smoked in Last 30 Days: No Second Hand Smoke Exposure: Yes Use of substances other than those prescribed or required for medical reasons: No Substance Use Type: Marijuana Advance Directives: Yes Advance Directives on File: Yes Advance Directives Date on File: 07/06/23 Do you have a plan to hurt others: No Plan Patient : No service: No Current occupational status: disabled 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 Meds Allergies Allergy/AdvReac Type Severity Reaction Status Date / Time ibuprofen [From MOTRIN] Allergy Intermediate RASH Verified 09/01/23 15:49 penicillin V Allergy Mild hives Verified 09/01/23 15:49 codeine Allergy Unknown Verified 09/01/23 15:49 Rx- listed on H&P Active Medications: Current Medications Ondansetron HCl (Ondansetron Hcl 4 Mg/2 Ml Vial) 4 mg IVPUSH Q4H PRN PRN Reason: Nausea and Vomiting Sodium Chloride (0.9 % Sodium Chloride Flush 3 Ml Syringe) 3 ml IVFLUSH [facility] Home Medications ?Medication ?Instructions ?Recorded ?Confirmed ?Last Taken ?Type albuterol sulfate 90 mcg/actuation 2 puff inhalation Q6H PRN Wheezing 08/16/20 07/26/23 06/04/23 History aerosol inhaler (Ventolin HFA) blood sugar diagnostic (FreeStyle #10 ea 08/16/20 06/04/23 Unknown History Lite Strips) lancets 28 gauge (FreeStyle #100 ea 08/16/20 06/04/23 Unknown History Lancets) insulin lispro 100 unit/mL See Rx Instructions .Route .COMPLEX 05/31/22 07/26/23 07/24/23 History subcutaneous pen cholecalciferol (vitamin D3) 50 50 mcg PO DAILY 09/29/22 07/26/23 07/24/23 History mcg (2,000 unit) capsule (Vitamin D3) flash glucose sensor (FreeStyle #1 ea 09/29/22 06/04/23 Unknown History Brooke 2 Sensor kit) pen needle, diabetic 32 gauge x #1,200 ea 01/23/23 06/04/23 Unknown History (Pentips) potassium chloride 20 mEq 20 meq PO DAILY 01/23/23 07/26/23 07/24/23 History tablet,extended release(part/cryst) mometasone 200 mcg/actuation HFA 1 puff inhalation BID 04/24/23 07/26/23 07/24/23 History aerosol inhaler (Asmanex HFA) ondansetron 4 mg disintegrating 4 mg PO Q8H PRN Nausea And Vomiting 06/30/23 07/26/23 Unknown History tablet eplerenone 25 mg tablet (Inspra) 25 mg PO DAILY 07/26/23 07/26/23 07/24/23 History lactulose 10 gram/15 mL oral 10 g PO TID 07/26/23 07/26/23 07/24/23 History solution rifaximin 550 mg tablet (Xifaxan) 550 mg PO BID 07/26/23 07/26/23 07/24/23 History torsemide 20 mg tablet 60 mg PO DAILY 07/26/23 07/26/23 07/24/23 History Physical Exam 2 Vital Signs and Narrative: Vital Signs: Last Vital Signs Temp 98.7 F 09/01/23 23:41 Pulse 85 09/01/23 23:41 Resp 16 09/01/23 23:41 BP 128/54 L 09/01/23 23:41 Pulse Ox 98 09/01/23 23:41 O2 Del Method Room Air 09/01/23 23:41 BMI result Body Mass Index 40.7 Constitutional - Awake and Alert, No apparent distress. HEENT - Pupils equally round. Normal sclerae. Moist oral mucosa. Heart - S1S2, RRR. Lungs - Normal lung expansion, Normal respiratory effort, No respiratory distress, CTA bilaterally Abdomen - NT / ND; +BS; No rebound or guarding. Positive fluid wave Extremities - no calf tenderness bilaterally, no swelling Musculoskeletal - Normal inspection, normal ROM Skin - Warm/Dry Neurological - Alert & oriented x3. Positive for asterixis. No focal weakness. Normal speech. Psychological - Appropriate affect Results Labs 09/01/23 16:14 09/01/23 16:14 Labs: Laboratory Results - last 24 hr 09/01/23 09/01/23 09/01/23 16:14 16:14 16:14 MCV 92.7 MCH 33.0 MCHC 35.6 H RDW 19.9 H Plt Count 84 L D MPV 10.2 Immature Gran % (Auto) 0.7 H Neut % (Auto) 84.1 H Lymph % (Auto) 6.2 L Colbert % (Auto) 7.0 Eos % (Auto) 1.4 Baso % (Auto) 0.6 Lymph # (Auto) 0.5 L Colbert # (Auto) 0.6 Eos # (Auto) 0.1 Baso # (Auto) 0.1 Abs Immat Gran (auto) 0.06 H Absolute Neuts (auto) 7.1 Absolute Nucleated RBC 0.000 Nucleated RBC % (auto) 0.0 Hold Purple Top SEE NOTE PT INR APTT Anion Gap Cancelled 13 Estim Creat Clear Calc Cancelled 65.1 Estimated GFR Cancelled Random Glucose Calcium Magnesium Total Bilirubin AST ALT Alkaline Phosphatase Ammonia Troponin I High Sens Total Protein Albumin Lipase Beta HCG, Quant Urine Color Urine Appearance Urine pH Ur Specific [place] Urine Protein Urine Glucose (UA) Urine Ketones Urine Blood Urine Nitrite Ur Leukocyte Esterase 09/01/23 09/01/23 09/01/23 16:14 16:14 16:14 MCV MCH MCHC RDW Plt Count MPV Immature Gran % (Auto) Neut % (Auto) Lymph % (Auto) Colbert % (Auto) Eos % (Auto) Baso % (Auto) Lymph # (Auto) Colbert # (Auto) Eos # (Auto) Baso # (Auto) Abs Immat Gran (auto) Absolute Neuts (auto) Absolute Nucleated RBC Nucleated RBC % (auto) Hold Purple Top PT INR APTT Anion Gap Estim Creat Clear Calc Estimated GFR 47 Random Glucose Cancelled 314 H Calcium Cancelled 8.7 Magnesium Cancelled Total Bilirubin AST ALT Alkaline Phosphatase Ammonia Troponin I High Sens Total Protein Albumin Lipase Beta HCG, Quant Urine Color Urine Appearance Urine pH Ur Specific [place] Urine Protein Urine Glucose (UA) Urine Ketones Urine Blood Urine Nitrite Ur Leukocyte Esterase 09/01/23 09/01/23 09/01/23 16:14 16:14 16:14 MCV MCH MCHC RDW Plt Count MPV Immature Gran % (Auto) Neut % (Auto) Lymph % (Auto) Colbert % (Auto) Eos % (Auto) Baso % (Auto) Lymph # (Auto) Colbert # (Auto) Eos # (Auto) Baso # (Auto) Abs Immat Gran (auto) Absolute Neuts (auto) Absolute Nucleated RBC Nucleated RBC % (auto) Hold Purple Top PT INR APTT Anion Gap Estim Creat Clear Calc Estimated GFR Random Glucose Calcium Magnesium 2.1 Total Bilirubin Cancelled 3.1 H AST Cancelled 35 H ALT Cancelled Alkaline Phosphatase Ammonia Troponin I High Sens Total Protein Albumin Lipase Beta HCG, Quant Urine Color Urine Appearance Urine pH Ur Specific [place] Urine Protein Urine Glucose (UA) Urine Ketones Urine Blood Urine Nitrite Ur Leukocyte Esterase 09/01/23 09/01/23 09/01/23 16:14 16:14 16:14 MCV MCH MCHC RDW Plt Count MPV Immature Gran % (Auto) Neut % (Auto) Lymph % (Auto) Colbert % (Auto) Eos % (Auto) Baso % (Auto) Lymph # (Auto) Colbert # (Auto) Eos # (Auto) Baso # (Auto) Abs Immat Gran (auto) Absolute Neuts (auto) Absolute Nucleated RBC Nucleated RBC % (auto) Hold Purple Top PT INR APTT Anion Gap Estim Creat Clear Calc Estimated GFR Random Glucose Calcium Magnesium Total Bilirubin AST ALT 16 Alkaline Phosphatase Cancelled 135 H Ammonia Troponin I High Sens 4.5 D Total Protein Cancelled 7.7 Albumin Cancelled Lipase Beta HCG, Quant Urine Color Urine Appearance Urine pH Ur Specific [place] Urine Protein Urine Glucose (UA) Urine Ketones Urine Blood Urine Nitrite Ur Leukocyte Esterase 09/01/23 09/01/23 09/01/23 16:14 16:14 17:20 MCV MCH MCHC RDW Plt Count MPV Immature Gran % (Auto) Neut % (Auto) Lymph % (Auto) Colbert % (Auto) Eos % (Auto) Baso % (Auto) Lymph # (Auto) Colbert # (Auto) Eos # (Auto) Baso # (Auto) Abs Immat Gran (auto) Absolute Neuts (auto) Absolute Nucleated RBC Nucleated RBC % (auto) Hold Purple Top PT 16.7 H INR 1.4 H APTT 35.4 Anion Gap Estim Creat Clear Calc Estimated GFR Random Glucose Calcium Magnesium Total Bilirubin AST ALT Alkaline Phosphatase Ammonia 98 H Troponin I High Sens Total Protein Albumin 3.1 L Lipase Cancelled 39 Beta HCG, Quant < 2 Urine Color Urine Appearance Urine pH Ur Specific [place] Urine Protein Urine Glucose (UA) Urine Ketones Urine Blood Urine Nitrite Ur Leukocyte Esterase 09/02/23 01:54 MCV MCH MCHC RDW Plt Count MPV Immature Gran % (Auto) Neut % (Auto) Lymph % (Auto) Colbert % (Auto) Eos % (Auto) Baso % (Auto) Lymph # (Auto) Colbert # (Auto) Eos # (Auto) Baso # (Auto) Abs Immat Gran (auto) Absolute Neuts (auto) Absolute Nucleated RBC Nucleated RBC % (auto) Hold Purple Top PT INR APTT Anion Gap Estim Creat Clear Calc Estimated GFR Random Glucose Calcium Magnesium Total Bilirubin AST ALT Alkaline Phosphatase Ammonia Troponin I High Sens Total Protein Albumin Lipase Beta HCG, Quant Urine Color Yellow Urine Appearance Clear Urine pH 7.0 Ur Specific [place] 1.015 Urine Protein Negative Urine Glucose (UA) 100 H Urine Ketones Negative Urine Blood Negative Urine Nitrite Negative Ur Leukocyte Esterase Negative Assessment and Plan (1) Encephalopathy, hepatic: Status: Acute (2) Nausea & vomiting: Qualifiers: Vomiting type: unspecified Qualified Code(s): R11.2 - Nausea with vomiting, unspecified Status: Acute Plan Ema Aguilar is a 48 years old woman admitted with: * Hepatic encephalopathy. Admit to hospitalist service. Lactulose 30 g PO tid until 2-3 soft stools. Continue rifaximin 550 mg PO bid. * Hypothyroidism. Continue levothyroxine. Check TSH. * 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/liver disease due to SERVIN s/p TIPS. Liver transplant list. Continue torsemide and spironolactone. Low-salt diet. * Obstructive sleep apnea. Not using CPAP. * Chronic pancytopenia. Continue to monitor. * Morbid obesity. BMI 40.7 kg/m2. She has been losing weight. * Type 2 diabetes mellitus. Blood glucose monitoring. Lantus and insulin sliding scale. Code status: Full DVT prophylaxis: SCDs. Early ambulation. Pharmacological DVT prophylaxis contraindicated due to thrombocytopenia. Patient will need hospitalization for at least 2 midnights for hepatic encephalopathy treatment with lactulose and rifaximin. Patient will also need close monitoring of vital signs, blood work and mental status. Quality Stroke Does the patient have a stroke diagnosis?: No VTE Prior VTE?: No VTE Risk Level:: Medical - moderate - high VTE Device Contraindication: N/A - Device Ordered VTE Drug Contraindication: Treatment Not Indicated
[2023-09-02 05:11] VITALS: BP 105/44; PULSE 87; RESP 16; TEMP 36.9; O2SAT 97
[2023-09-02 05:31] LABS: MANUAL DIFF FLAG NO
[2023-09-02 05:32] LABS: Basophils Absolute Auto 0.1 X10*3/uL (0.0-0.2); Basophils Percent Auto 0.8 % (0-2); Eosinophils Absolute Auto 0.2 X10*3/uL (0.0-0.4); Hematocrit 22.3 % (37.0-47.0); Hemoglobin 7.9 g/dl (12.0-16.0); Imm Gran Abs Auto 0.07 X10*3/uL (0.00-0.03); Lymphocytes Absolute Auto 0.6 X10*3/uL (1.2-4.9); Lymphocytes Percent Auto 7.8 % (20-40); Mean Corpuscular HGB Conc 35.4 g/dl (31.0-35.0); Mean Corpuscular Hemoglobin 33.3 pg (27.0-33.0); Mean Corpuscular Volume 94.1 fL (80.0-98.0); Mean Platelet Volume 10.1 fL (9.4-12.3); Monocytes Absolute Auto 0.6 X10*3/uL (0.1-1.2); Monocytes Percent Auto 8.7 % (2-11); Neutrophils Absolute Auto 5.8 x10*3/uL (2.0-8.3); Neutrophils Percent Auto 79.7 % (45-73); Red Blood Count 2.37 X10*6/uL (4.20-5.50); White Blood Count 7.3 X10*3/uL (4.8-10.8)
[2023-09-02 05:35] LABS: Platelet Count 65 X10*3/uL (160-400)
[2023-09-02 05:47] LABS: Alanine Aminotransferase 14 U/L (0-31); Albumin Level 2.8 g/dL (3.5-5.0); Alkaline Phosphatase 116 U/L (39-117); Anion Gap 11 (12-20); Aspartate Amino Transferase 32 U/L (5-31); Bilirubin Total 2.5 mg/dL (0.0-1.0); Blood Urea Nitrogen 20 mg/dL (9-16); Calcium 8.2 mg/dL (8.4-10.2); Carbon Dioxide 25 mmol/L (22-29); Chloride 104 mmol/L (96-108); Creatinine Clr Calc Pharmacy 66.7; Estimated Glomerular Filt Rate 48; Glucose Random 205 mg/dL (60-115); Potassium 4.3 mmol/L (3.3-5.1); Sodium 136 mmol/L (135-145); Total Protein 6.9 g/dL (6.5-8.0)
[2023-09-02 06:10] LABS: TSH reflex Free T4 3.78 uIU/mL (0.32-4.0)
[2023-09-02 07:29] LABS: Glucose, Whole Blood 168 mg/dL (60-115)
[2023-09-02] MEDS: Insulin Glargine,Hum.rec.anlog 100 UNIT/ML 10 ML VIAL 20 UNIT SUBCUT (08:00)
[2023-09-02] MEDS: Insulin Lispro 100 UNIT/ML 3 ML VIAL SUBCUT ×3 (08:00→18:44)
[2023-09-02] MEDS: Lactulose 20 GM/30 ML SOLUTION 30 GM PO ×3 (08:02→22:22)
[2023-09-02] MEDS: 0.9 % Sodium Chloride Flush 3 ML SYRINGE IVFLUSH ×2 (08:03→22:19)
--- NOTE | 2023-09-02 08:46 | PC.NURSE ---
pt reports that they have not had any soft bowel movements today
[2023-09-02 12:00] VITALS: PULSE 89; RESP 18; TEMP 36.6; O2SAT 98
[2023-09-02 12:20] LABS: Glucose, Whole Blood 208 mg/dL (60-115)
--- NOTE | 2023-09-02 13:34 | PHA.MEDREC ---
Pharmacy Consult ? Medication Reconciliation Pharmacy has completed the medication reconciliation. spoke with patient to confirm medications, patient is a poor historian however she was able to confirm based off of names and indications. She does not remember picking up medications from [facility] pharmacy after last discharge so Im unsure if she took the Bactrim. She reports using Toujeo 75 units at bedtime and did not know levothyroxine dose. I used the dose from [facility] - we called and they verified that she last filled the 50 mcg in May for a 90DS. They also verified that she has one more fill for Xifaxan waiting at the pharmacy - her last fruit or nut picker was in June for a 30 DS. I spoke with over the phone as well and he is unsure about the prescriptions picked up here.
--- NOTE | 2023-09-02 14:42 | PM.EVENT ---
Event Note Date of Service: 09/02/23 Event Note: 48-year-old woman treated with hepatic encephalopathy Hepatic encephalopathy. awake and alert Ammonia 98 Lactulose 30 g PO tid until 2-3 soft stools. Continue rifaximin 550 mg PO bid. GI consultation pending Hypothyroidism. Continue levothyroxine. 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/liver disease due to SERVIN s/p TIPS. Liver transplant list. Continue torsemide and spironolactone. Low-salt diet. Obstructive sleep apnea. Not using CPAP. Chronic pancytopenia. Continue to monitor. Type 2 diabetes mellitus. Lantus and insulin sliding scale. One obesity. BMI 40.7 Discussed importance of weight management as this may be contributing to worsening of other comorbidities Code status: Full DVT prophylaxis: SCDs. Early ambulation. Patient will need hospitalization for at least 2 midnights for hepatic encephalopathy treatment with lactulose and rifaximin. Patient will also need close monitoring of vital signs, blood work and mental status. Time Spent With Patient Time: Total time managing care of this patient today ____ minutes.
[2023-09-02 17:36] VITALS: BP 122/42; PULSE 86; RESP 18; TEMP 36.5; O2SAT 97
[2023-09-02 17:47] LABS: Glucose, Whole Blood 191 mg/dL (60-115)
--- NOTE | 2023-09-02 20:19 | PC.NURSE ---
Assumed care of pt. Pt lying on stretcher, no acute distress at this time. Continuing plan for admission
[2023-09-02] MEDS: Insulin Glargine,Hum.rec.anlog 100 UNIT/ML 10 ML VIAL 60 UNIT SUBCUT (22:20)
[2023-09-02] MEDS: rifAXIMin 550 MG TABLET PO (22:22)
--- NOTE | 2023-09-02 22:26 | PC.NURSE ---
Holding sliding scale insulin until midnight after POC glucose check
[2023-09-03 00:02] LABS: Glucose, Whole Blood 184 mg/dL (60-115)
[2023-09-03 00:05] VITALS: BP 109/50; PULSE 86; RESP 16; O2SAT 99
[2023-09-03] MEDS: Insulin Lispro 100 UNIT/ML 3 ML VIAL SUBCUT ×2 (00:52→12:34)
[2023-09-03] MEDS: 0.9 % Sodium Chloride Flush 3 ML SYRINGE IVFLUSH (01:06)
[2023-09-03 05:09] LABS: Hemoglobin 7.7 g/dl (12.0-16.0); Mean Corpuscular Volume 94.4 fL (80.0-98.0); Mean Platelet Volume 10.1 fL (9.4-12.3); Red Blood Count 2.33 X10*6/uL (4.20-5.50); Red Cell Distribution Width 19.9 % (11.0-16.0)
[2023-09-03 05:10] LABS: Platelet Count 67 X10*3/uL (160-400)
[2023-09-03 05:30] LABS: Alanine Aminotransferase 14 U/L (0-31); Albumin Level 2.6 g/dL (3.5-5.0); Alkaline Phosphatase 112 U/L (39-117); Anion Gap 12 (12-20); Aspartate Amino Transferase 33 U/L (5-31); Bilirubin Total 3.2 mg/dL (0.0-1.0); Blood Urea Nitrogen 19 mg/dL (9-16); Calcium 8.4 mg/dL (8.4-10.2); Carbon Dioxide 20 mmol/L (22-29); Chloride 106 mmol/L (96-108); Creatinine Clr Calc Pharmacy 60.2; Estimated Glomerular Filt Rate 43; Glucose Random 146 mg/dL (60-115); Potassium 4.6 mmol/L (3.3-5.1); Sodium 133 mmol/L (135-145); Total Protein 6.8 g/dL (6.5-8.0)
[2023-09-03 06:12] VITALS: BP 122/51; PULSE 95; RESP 18; TEMP 36.9; O2SAT 97
[2023-09-03] MEDS: Levothyroxine Sodium 50 MCG TABLET PO (06:29)
[2023-09-03] MEDS: Omeprazole 40 MG CAPSULE.DR PO (06:29)
[2023-09-03 08:29] LABS: Glucose, Whole Blood 134 mg/dL (60-115)
[2023-09-03 08:49] VITALS: BP 113/41; PULSE 90; RESP 15; TEMP 36.3; O2SAT 97
[2023-09-03] MEDS: Spironolactone 25 MG TABLET 100 MG PO (09:35)
[2023-09-03] MEDS: Potassium Chloride ER 20 MEQ TAB.ER.PRT PO (09:35)
[2023-09-03] MEDS: Torsemide 20 MG TABLET 40 MG PO (09:35)
[2023-09-03] MEDS: Cholecalciferol (Vitamin D3) 25 MCG TABLET 50 MCG PO (09:35)
[2023-09-03] MEDS: Atorvastatin Calcium 20 MG TABLET PO (09:35)
[2023-09-03] MEDS: Ferrous Sulfate 324 MG TABLET.DR PO (09:36)
[2023-09-03] MEDS: Insulin Glargine,Hum.rec.anlog 100 UNIT/ML 10 ML VIAL 20 UNIT SUBCUT (09:36)
[2023-09-03] MEDS: Lactulose 20 GM/30 ML SOLUTION 30 GM PO (09:39)
[2023-09-03 10:51] VITALS: BP 130/61; PULSE 91; RESP 18; TEMP 36; O2SAT 100
[2023-09-03 11:40] LABS: Glucose, Whole Blood 162 mg/dL (60-115)
--- NOTE | 2023-09-03 11:45 | PM.DS ---
DS: Providers Provider Date of Service: 09/03/23 Date of admission: 09/02/23 01:28 Date of discharge: 09/03/23 Primary care physician: Radha Anne MD Attending physician on discharge: Bashir Rubi Discharging clinician: Deana Staley DS: Diagnosis Discharge Diagnosis (1) Encephalopathy, hepatic: Status: Acute (2) Nausea & vomiting: Status: Acute DS: Summary Hospital Course Hospital Course: From H&P on the day of admission Ema Aguilar is a 48 years old woman with past medical history significant for liver cirrhosis secondary to SERVIN (liver transplant) with portal hypertension (esophageal varices, ascites, s/p TIPS), morbid obesity, thrombocytopenia, hypothyroidism, type 2 DM and obstructive sleep apnea presents to ED complaining of feeling tremulous and nauseous. She also had an event of nonbloody vomiting and mild abdominal discomfort. Patient also reported feeling a little bit confused. Denies bloody or black stools. She also denies headache. She stated that she has been taking her medications as prescribed and has not missed any dose of her lactulose. There are no cardiopulmonary or genitourinary symptoms reported. Denies alcohol abuse, tobacco smoking or illicit drug use In the ED, she was found to have stable vital signs. Blood workup showed no leukocytosis (however, WBC count is higher than her baseline (3.8-4.7). Platelets level is 8.4. There are no electrolyte imbalances (corrected Na+ is 137). There is hyperglycemia 314. AST and bilirubin are elevated. Ammonia is 98 (it was 71 last month). Urinalysis showed no UTI. ECG showed normal sinus rhythm. ED tx: Zofran 4 mg IV lactulose 20 g PO. Hepatic encephalopathy. Ammonia was high on admission with mild asterixis, dose of lactulose was increased with good effect. Patient is awake, alert with no asterixis on exam. Recommend increase dose of lactulose to 20 g 3 times daily with goal of achieving 2-3 bowel movements daily. No further adjustments were made to medications. Chronic anemia. Recommend outpatient follow-up with primary providers including GI as needed. Time Attestation Discharge Coordination Time (in mins): 32 Quality: Safe Use of Opioids Does Pt have an Active Cancer Diagnosis on the Problem List?: No Quality: Stroke Does the patient have a stroke diagnosis?: No Physical Exam Vital Signs: Vital Signs: Last Vital Signs Temp 96.8 F 09/03/23 10:51 Pulse 91 09/03/23 10:51 Resp 18 09/03/23 10:51 BP 130/61 09/03/23 10:51 Pulse Ox 100 09/03/23 10:51 O2 Del Method Room Air 09/03/23 10:51 BMI result Body Mass Index 40.7 Const: General: cooperative, comfortable, no acute distress, alert and awake Nutritional Appearance: overweight Orientation/consciousness: patient oriented x3 GI: Other: No asterixis Inspection: No distended Palpation (GI): Soft to palpation Neuro: General: patient oriented x3 DS: Data Data Completed and Pending Completed studies during hospitalization [Text1]: Procedures Control Bleeding in Gastrointestinal Tract, Via Natural or Artificial Opening Endoscopic (06/29/23) Drainage of Peritoneal Cavity, Percutaneous Approach (06/21/22) Insertion of Endotracheal Airway into Trachea, Via Natural or Artificial Opening (06/21/22) Insertion of Infusion Device into Right Basilic Vein, Percutaneous Approach (07/26/23) Insertion of Infusion Device into Superior Vena Cava, Percutaneous Approach (06/21/22) Introduction of Mineral-based Topical Hemostatic Agent into Upper GI, Via Natural or Artificial Opening Endoscopic, [employer] 6 (06/29/23) Introduction of Vasopressor into Central Vein, Percutaneous Approach (06/21/22) Occlusion of Esophageal Vein with Extraluminal Device, Via Natural or Artificial Opening Endoscopic (04/24/23) Respiratory Ventilation, Greater than 96 Consecutive Hours (06/21/22) Transfusion of Nonautologous Platelets into Peripheral Vein, Percutaneous Approach (06/29/23) Transfusion of Nonautologous Red Blood Cells into Peripheral Vein, Percutaneous Approach (06/29/23) Ultrasonography of Superior Vena Cava, Guidance (06/21/22) Labs on day of discharge: Laboratory Results - last 24 hr 09/01/23 09/02/23 09/02/23 16:14 11:57 17:14 WBC RBC Hgb Hct MCV MCH MCHC RDW Plt Count MPV Absolute Nucleated RBC Nucleated RBC % (auto) Hold Purple Top SEE NOTE Sodium Potassium Chloride Carbon Dioxide Anion Gap BUN Creatinine Estim Creat Clear Calc Estimated GFR POC Glucose 208 H 191 H Random Glucose Calcium Total Bilirubin Direct Bilirubin AST ALT Alkaline Phosphatase Total Protein Albumin 09/02/23 09/03/23 09/03/23 23:57 04:32 08:19 WBC 8.0 RBC 2.33 L Hgb 7.7 L Hct 22.0 L MCV 94.4 MCH 33.0 MCHC 35.0 RDW 19.9 H Plt Count 67 L MPV 10.1 Absolute Nucleated RBC 0.000 Nucleated RBC % (auto) 0.0 Hold Purple Top Sodium 133 L Potassium 4.6 Chloride 106 Carbon Dioxide 20 L Anion Gap 12 BUN 19 H Creatinine 1.32 Estim Creat Clear Calc 60.2 Estimated GFR 43 POC Glucose 184 H 134 H Random Glucose 146 H Calcium 8.4 Total Bilirubin 3.2 H Direct Bilirubin 1.0 H AST 33 H ALT 14 Alkaline Phosphatase 112 Total Protein 6.8 Albumin 2.6 L 09/03/23 11:34 WBC RBC Hgb Hct MCV MCH MCHC RDW Plt Count MPV Absolute Nucleated RBC Nucleated RBC % (auto) Hold Purple Top Sodium Potassium Chloride Carbon Dioxide Anion Gap BUN Creatinine Estim Creat Clear Calc Estimated GFR POC Glucose 162 H Random Glucose Calcium Total Bilirubin Direct Bilirubin AST ALT Alkaline Phosphatase Total Protein Albumin Discharge Plan Discharge Anticipated Discharge Date/Time: 09/03/23 11:33 Patient Disposition: Home, Self-Care Discharge Diagnosis: mild hepatic encephalopathy Referrals: Radha Anne MD [Primary Care Provider] - 1 Week Discharge Medications: New lactulose 20 gram/30 mL Solution 20 g PO TID Qty: 1200 0RF Continued insulin lispro 100 unit/mL insulin pen See Rx Instructions .ROUTE .COMPLEX Rx Instructions: 26 units subcutaneously TIDAC if blood sugar <200; 30 units subcutaneously TIDAC if blood sugar >200 ondansetron 4 mg Tablet,Disintegrating 4 mg PO Q8H PRN (Reason: Nausea And Vomiting) Xifaxan 550 mg tablet 550 mg PO BID torsemide 20 mg tablet 40 mg PO DAILY Asmanex HFA 200 mcg/actuation HFA aerosol inhaler 1 puff INHALATION BID atorvastatin 20 mg Tablet 20 mg PO DAILY Qty: 30 0RF albuterol sulfate 2.5 mg /3 mL (0.083 %) solution for nebulization 2.5 mg inhalation QID PRN (Reason: dyspnea) polyethylene glycol 3350 17 gram powder in packet 17 g PO BID PRN (Reason: Constipation) midodrine 5 mg tablet 5 mg PO Q8H PRN (Reason: Hypotension) calcium carbonate 500 mg calcium (1,250 mg) Tablet 500 mg PO DAILY spironolactone 50 mg tablet 100 mg PO DAILY insulin glargine U-300 conc [Toujeo Max U-300 SoloStar] 300 unit/mL (3 mL) insulin pen 75 unit subcut BEDTIME omeprazole 40 mg capsule,delayed release(DR/EC) 40 mg PO DAILY@0630 ferrous sulfate 324 mg (65 mg iron) tablet,delayed release (DR/EC) 324 mg PO DAILY levothyroxine 50 mcg tablet 50 mcg PO DAILY albuterol sulfate [Ventolin HFA] 90 mcg/actuation HFA aerosol inhaler 2 puff inhalation Q6H PRN (Reason: Wheezing) cholecalciferol (vitamin D3) [Vitamin D3] 50 mcg (2,000 unit) capsule 50 mcg PO DAILY potassium chloride 20 mEq tablet,ER particles/crystals 20 meq PO DAILY Hold Instructions: Resume on 08/06/23. Discontinued lactulose 10 gram/15 mL solution 10 g PO TID No Action (DME) FreeStyle Lite Strips Strip See Rx Instructions .ROUTE .MEDSUPPLY Qty: 10 Rx Instructions: test 3x a day (DME) lancets [FreeStyle Lancets] 28 gauge misc See Rx Instructions .ROUTE .MEDSUPPLY Qty: 100 Rx Instructions: test 3x a day (DME) FreeStyle Brooke 2 Sensor Kit See Rx Instructions .ROUTE DAILY Qty: 1 Rx Instructions: As directed (DME) pen needle, diabetic [Pentips] 32 gauge x 5/32 needle See Rx Instructions .ROUTE .MEDSUPPLY Qty: 1200 Rx Instructions: As directed Discharge Orders: Discharge Order (Routine); Ordered 09/03/23 Ordered By: Deana Staley Activity on Discharge: As tolerated Stand Alone Forms: Patient Portal Discharge page Print Language: Serbian Care Plan Goals: See below Health Concerns: Mild hepatic encephalopathy Chronic anemia Chronic liver disease Plan of Treatment: Recommend to increase dose of lactulose to 20 g 3 times daily with goal of 2-3 bowel movements daily Outpatient follow-up as needed Assessment: See discharge summary Discharge Date/Time: 09/03/23 16:30
--- NOTE | 2023-09-03 12:17 | MHC.CM.PN ---
Patient lives at home w/ her . Ambulates w/ wheeled walker, uses w/c for long distances. Patient's assists w/ ADL's PRN. Currently working w/ her PCP office to get approval for a PHYSICAL THERAPY ASST. Last appt was < 1 month ago. Was previously active w/ [employer] for med management including insulin, but is now managing this independently and is no longer active. PCP Radha Anne MD HCP on file and verfied DP: Medically cleared for dc home self care. BLS scheduled for 3:30pm per patient request.
[2023-09-03 16:00] VITALS: BP 122/57; PULSE 86; RESP 18; TEMP 36.1; O2SAT 100
== END 2023-09-03 16:30 | disposition home or self-care (01) ==
LOC: HO.ED 23:48 → HO.EDOVER 09-02 01:32 → HO.S3 09-03 08:26
PROVIDERS: Nurse Practitioner Acute Care; Physician Assistant; Admitting Provider Internal Medicine; Emergency Provider Emergency Medicine; PCP Family Medicine; Visit Provider Physician Assistant Medical
DX: K74.69 Other cirrhosis of liver (principal); Z76.82 Awaiting organ transplant status; D61.818 Other pancytopenia; K76.82 Hepatic encephalopathy; K76.6 Portal hypertension; E22.0 Acromegaly and pituitary gigantism; K75.81 Nonalcoholic steatohepatitis (NASH); G47.33 Obstructive sleep apnea (adult) (pediatric); E66.01 Morbid (severe) obesity due to excess calories; Z68.41 Body mass index [BMI] 40.0-44.9, adult; E03.9 Hypothyroidism, unspecified; Z87.891 Personal history of nicotine dependence; Z79.4 Long term (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 insulin; Z79.890 Hormone replacement therapy; Z79.899 Other long term (current) drug therapy
CPT/HCPCS: 36415; 80048; 80053; 80076; 81003; 82140; 82947; 83690; 83735; 84443; 84484; 84702; 85025; 85027; 85610; 85730; 93005; 99285; J2405

== ENCOUNTER → 2023-09-01 15:59 | Outpatient (BNV) | payer MEDICAID, SELFPAY | PROVIDERS: Admitting Provider Internal Medicine; Emergency Provider Emergency Medicine; PCP Family Medicine; Visit Provider Internal Medicine Cardiovascular Disease | DX: R94.31 Abnormal electrocardiogram [ECG] [EKG] (principal); R11.0 Nausea | CPT/HCPCS: 93010 ==

== ENCOUNTER → 2023-09-02 01:28 | Outpatient (BNV) | payer MEDICAID, SELFPAY | PROVIDERS: Admitting Provider Internal Medicine; Emergency Provider Emergency Medicine; PCP Family Medicine; Visit Provider Internal Medicine | DX: K76.82 Hepatic encephalopathy (principal); R11.2 Nausea with vomiting, unspecified | CPT/HCPCS: 99223; 99239; 99499 ==

== ENCOUNTER 2023-10-19 10:34 | Outpatient (AMB) | payer MEDICAID, SELFPAY ==
--- NOTE | 2023-10-19 10:35 | MHC.OFFVIS ---
Vital Signs 10/19/23 10:40 BP 129/65 Blood Pressure Location Lt brachial Position Sitting Pulse 116 H Intake Visit Reasons: f/u liver transplant Intake Note: Ema presents in the office as a follow up for her liver transplant. CC: She states that she is feeling a little bit better. States that she is having some discomfort in the left side of her stomach. Happening for the past 3-4 days. 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 Oropharynx clear. Moist mucous membranes. Conjunctivae appear well perfused. No thyroid mass. CHEST: Chest wall is nontender. HEART: Regular rate and rhythm without murmurs. LUNGS: Clear to auscultation bilaterally. ABDOMEN: lubna noted over incisions SKIN: No rash, no excessive bruising, petechiae, or purpura. NEUROLOGIC: Cranial nerves II-XII intact without motor/sensory deficit. Assessment & Plan (1) 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 s/p liver transplant 2/ LUQ pain, but abdomen is soft and no guarding, seems relaxed at rest--maybe stress gastritis PLAN: 1/ Trial of carafate avoid taking within 2 hrs of her immune suppresants [facility] Medical History (Updated 10/19/23 @ 11:03 by Sergei Verma MD) UTI (urinary tract infection) Pancytopenia 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 Severe anemia S/P abdominal paracentesis 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 Status post abdominal paracentesis HTN (hypertension) AMY (obstructive sleep apnea) Dyslipidemia Asthma Non-toxic multinodular goiter Diabetic nephropathy associated with type 2 diabetes mellitus Elevated TSH Goiter Acromegaly Morbid obesity PCOS (polycystic ovarian syndrome) long-term (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 insulin Diabetes type 2, uncontrolled 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 Surgical History (Updated 10/19/23 @ 10:40 by SETH Mattson) Hx of liver transplant S/P TIPS (transjugular intrahepatic portosystemic shunt) Previous back surgery Hx of colonoscopy Hx of endoscopy Family History Father Unknown family medical history Mother Hx of type 1 diabetes mellitus Social History Household Members: Spouse Housing: House Do you presently have visiting nurse or other home services: No Alcohol intake: never Patient Tobacco Use Status: Former Tobacco user Tobacco use type: Cigarette Second Hand Smoke Exposure: Yes Substance Use Type: Marijuana Advance Directives Date on File: 07/06/23 service: No Current occupational status: disabled 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
[2023-10-19 10:40] VITALS: BP 129/65; PULSE 116
== END 2023-10-19 11:09 | disposition home or self-care (01) ==
PROVIDERS: Visit Provider Internal Medicine Gastroenterology
DX: R10.12 Left upper quadrant pain (principal)
CPT/HCPCS: 99213

== ENCOUNTER → 2023-10-19 10:34 | Outpatient (BNVA) | payer MEDICAID, SELFPAY | PROVIDERS: Visit Provider Internal Medicine Gastroenterology | DX: R10.12 Left upper quadrant pain (principal) | CPT/HCPCS: 99212 ==

== ENCOUNTER 2023-10-26 10:02 | Outpatient (REF) | payer MEDICAID, SELFPAY | END 2023-10-26 10:03 | disposition home or self-care (01) | LOC: HO.LAB 10:02 | PROVIDERS: Absent Provider Family Medicine; PCP Family Medicine; Visit Provider Internal Medicine Transplant Hepatology | DX: Z13.89 Encounter for screening for other disorder (principal) | CPT/HCPCS: 36415; 80053; 80197; 83735; 84100; 85025; 85610; 86644; 86645 ==

== ENCOUNTER 2023-10-26 10:13 | Outpatient (REF) | payer MEDICAID, SELFPAY ==
[2023-10-26 10:34] LABS: MANUAL DIFF FLAG NO
[2023-10-26 11:04] LABS: Basophils Percent Auto 0.5 % (0-2); Eosinophils Absolute Auto 0.6 X10*3/uL (0.0-0.4); Eosinophils Percent Auto 7.8 % (0-4); Hematocrit 22.9 % (37.0-47.0); Hemoglobin 7.5 g/dl (12.0-16.0); Imm Gran Abs Auto 0.23 X10*3/uL (0.00-0.03); Imm Gran Pct Auto 2.9 % (0.0-0.4); Lymphocytes Absolute Auto 0.3 X10*3/uL (1.2-4.9); Lymphocytes Percent Auto 4.3 % (20-40); Mean Corpuscular HGB Conc 32.8 g/dl (31.0-35.0); Mean Corpuscular Hemoglobin 30.2 pg (27.0-33.0); Mean Corpuscular Volume 92.3 fL (80.0-98.0); Mean Platelet Volume 9.8 fL (9.4-12.3); Monocytes Absolute Auto 0.6 X10*3/uL (0.1-1.2); Monocytes Percent Auto 7.8 % (2-11); NRBC Pct Auto 0.3 /100WBC (0.0-0.2); Neutrophils Percent Auto 76.7 % (45-73); Red Blood Count 2.48 X10*6/uL (4.20-5.50); Red Cell Distribution Width 18.3 % (11.0-16.0); White Blood Count 7.9 X10*3/uL (4.8-10.8)
[2023-10-26 11:06] LABS: INTERNATIONAL NORM RATIO 1.3 (0.9-1.1); Prothrombin Time 15.4 SEC (11.1-13.3)
[2023-10-26 11:11] LABS: Platelet Count 198 X10*3/uL (160-400)
[2023-10-26 12:56] LABS: Anion Gap 14 (12-20)
[2023-10-26 13:06] LABS: Alanine Aminotransferase 143 U/L (0-31); Albumin Level 3.5 g/dL (3.5-5.0); Alkaline Phosphatase 133 U/L (39-117); Aspartate Amino Transferase 71 U/L (5-31); Bilirubin Total 0.6 mg/dL (0.0-1.0); Blood Urea Nitrogen 25 mg/dL (9-16); Calcium 8.5 mg/dL (8.4-10.2); Carbon Dioxide 17 mmol/L (22-29); Chloride 103 mmol/L (96-108); Estimated Glomerular Filt Rate 33; Magnesium 2.1 mg/dL (1.6-2.6); Phosphorus 2.9 mg/dL (2.7-4.5); Sodium 128 mmol/L (135-145); Total Protein 7.1 g/dL (6.5-8.0)
[2023-10-26 13:53] LABS: Glucose Random 416 mg/dL (60-115); Potassium 6.4 mmol/L (3.3-5.1)
[2023-10-27 14:22] LABS: Tacrolimus Prograf 4.3 mcg/L
[2023-10-27 17:38] LABS: Cytomegalovirus Ab IgM <30.00 AU/mL
== END 2023-10-26 10:14 | disposition home or self-care (01) ==
LOC: HO.LAB 10:13
PROVIDERS: Internal Medicine Transplant Hepatology
DX: Z94.4 Liver transplant status (principal)
CPT/HCPCS: 36415; 80053; 80197; 83735; 84100; 85025; 85610; 86644; 86645

== ENCOUNTER 2023-11-02 09:55 | Outpatient (REF) | payer MEDICAID, SELFPAY ==
[2023-11-02 10:20] LABS: MANUAL DIFF FLAG NO
[2023-11-02 10:38] LABS: Basophils Percent Auto 0.3 % (0-2); Eosinophils Absolute Auto 0.5 X10*3/uL (0.0-0.4); Hematocrit 26.5 % (37.0-47.0); Hemoglobin 8.6 g/dl (12.0-16.0); INTERNATIONAL NORM RATIO 1.1 (0.9-1.1); Imm Gran Abs Auto 0.03 X10*3/uL (0.00-0.03); Imm Gran Pct Auto 0.5 % (0.0-0.4); Lymphocytes Absolute Auto 0.2 X10*3/uL (1.2-4.9); Lymphocytes Percent Auto 3.3 % (20-40); Mean Corpuscular HGB Conc 32.5 g/dl (31.0-35.0); Mean Corpuscular Hemoglobin 30.7 pg (27.0-33.0); Mean Corpuscular Volume 94.6 fL (80.0-98.0); Mean Platelet Volume 9.9 fL (9.4-12.3); Monocytes Absolute Auto 0.5 X10*3/uL (0.1-1.2); Neutrophils Absolute Auto 4.6 x10*3/uL (2.0-8.3); Neutrophils Percent Auto 79.9 % (45-73); Platelet Count 120 X10*3/uL (160-400); Prothrombin Time 13.4 SEC (11.1-13.3); Red Cell Distribution Width 19.3 % (11.0-16.0); White Blood Count 5.8 X10*3/uL (4.8-10.8)
[2023-11-02 11:12] LABS: Alanine Aminotransferase 318 U/L (0-31); Albumin Level 3.5 g/dL (3.5-5.0); Alkaline Phosphatase 209 U/L (39-117); Anion Gap 14 (12-20); Aspartate Amino Transferase 150 U/L (5-31); Bilirubin Total 1.2 mg/dL (0.0-1.0); Blood Urea Nitrogen 21 mg/dL (9-16); Calcium 9.8 mg/dL (8.4-10.2); Carbon Dioxide 21 mmol/L (22-29); Chloride 107 mmol/L (96-108); Estimated Glomerular Filt Rate 48; Glucose Random 253 mg/dL (60-115); Magnesium 1.7 mg/dL (1.6-2.6); Phosphorus 4.1 mg/dL (2.7-4.5); Potassium 5.5 mmol/L (3.3-5.1); Sodium 136 mmol/L (135-145); Total Protein 6.7 g/dL (6.5-8.0)
[2023-11-03 14:49] LABS: Tacrolimus Prograf 2.2 mcg/L
[2023-11-03 15:04] LABS: CMV DNA PCR Qn Source BLOOD; CMV DNA Qn PCR NOT DETECTED Log IU/mL (NOT DETECTED); CMV DNA Qn Real Time PCR NOT DETECTED (NOT DETECTED)
== END 2023-11-02 09:56 | disposition home or self-care (01) ==
LOC: HO.LABR 09:55
PROVIDERS: Internal Medicine Transplant Hepatology; PCP Family Medicine
DX: D84.9 Immunodeficiency, unspecified (principal); Z94.4 Liver transplant status
CPT/HCPCS: 36415; 80053; 80197; 83735; 84100; 85025; 85610; 87497

== ENCOUNTER 2023-11-06 09:39 | Outpatient (REF) | payer MEDICAID, SELFPAY ==
[2023-11-06 10:04] LABS: MANUAL DIFF FLAG NO
[2023-11-06 10:10] LABS: Basophils Percent Auto 0.3 % (0-2); Eosinophils Absolute Auto 0.4 X10*3/uL (0.0-0.4); Eosinophils Percent Auto 5.8 % (0-4); Hematocrit 27.5 % (37.0-47.0); Imm Gran Abs Auto 0.08 X10*3/uL (0.00-0.03); Imm Gran Pct Auto 1.3 % (0.0-0.4); Lymphocytes Absolute Auto 0.3 X10*3/uL (1.2-4.9); Mean Corpuscular HGB Conc 32.7 g/dl (31.0-35.0); Mean Corpuscular Hemoglobin 31.1 pg (27.0-33.0); Mean Corpuscular Volume 95.2 fL (80.0-98.0); Mean Platelet Volume 9.3 fL (9.4-12.3); Monocytes Absolute Auto 0.7 X10*3/uL (0.1-1.2); Monocytes Percent Auto 11.2 % (2-11); Neutrophils Absolute Auto 4.8 x10*3/uL (2.0-8.3); Neutrophils Percent Auto 76.4 % (45-73); Platelet Count 118 X10*3/uL (160-400); Red Blood Count 2.89 X10*6/uL (4.20-5.50); White Blood Count 6.2 X10*3/uL (4.8-10.8)
[2023-11-06 10:15] LABS: INTERNATIONAL NORM RATIO 1.1 (0.9-1.1)
[2023-11-06 10:38] LABS: Anion Gap 14 (12-20); Carbon Dioxide 19 mmol/L (22-29); Chloride 108 mmol/L (96-108); Potassium 4.7 mmol/L (3.3-5.1); Sodium 136 mmol/L (135-145)
[2023-11-06 10:39] LABS: Alanine Aminotransferase 319 U/L (0-31); Albumin Level 3.5 g/dL (3.5-5.0); Aspartate Amino Transferase 103 U/L (5-31); Blood Urea Nitrogen 20 mg/dL (9-16); Calcium 9.6 mg/dL (8.4-10.2); Estimated Glomerular Filt Rate 48; Glucose Random 195 mg/dL (60-115); Magnesium 1.6 mg/dL (1.6-2.6); Phosphorus 3.7 mg/dL (2.7-4.5); Total Protein 6.4 g/dL (6.5-8.0)
[2023-11-06 10:40] LABS: Alkaline Phosphatase 194 U/L (39-117)
[2023-11-07 10:58] LABS: Tacrolimus Prograf 7.9 mcg/L
[2023-11-09 13:24] LABS: Cytomegalovirus Ab IgM <30.00 AU/mL
== END 2023-11-06 09:40 | disposition home or self-care (01) ==
LOC: HO.LABR 09:39
PROVIDERS: PCP Family Medicine; Visit Provider Internal Medicine Transplant Hepatology
DX: Z94.4 Liver transplant status (principal)
CPT/HCPCS: 36415; 80053; 80197; 83735; 84100; 85025; 85610; 86644; 86645

== ENCOUNTER 2023-11-25 09:46 | Outpatient (REF) | payer MEDICAID, SELFPAY ==
[2023-11-25 10:05] LABS: MANUAL DIFF FLAG NO
[2023-11-25 10:22] LABS: Basophils Percent Auto 0.2 % (0-2); Eosinophils Absolute Auto 0.1 X10*3/uL (0.0-0.4); Eosinophils Percent Auto 1.1 % (0-4); Hematocrit 25.9 % (37.0-47.0); Hemoglobin 8.6 g/dl (12.0-16.0); Imm Gran Abs Auto 0.17 X10*3/uL (0.00-0.03); Imm Gran Pct Auto 1.8 % (0.0-0.4); Lymphocytes Absolute Auto 0.2 X10*3/uL (1.2-4.9); Lymphocytes Percent Auto 2.3 % (20-40); Mean Corpuscular HGB Conc 33.2 g/dl (31.0-35.0); Mean Corpuscular Hemoglobin 30.9 pg (27.0-33.0); Mean Corpuscular Volume 93.2 fL (80.0-98.0); Mean Platelet Volume 10.1 fL (9.4-12.3); Monocytes Absolute Auto 0.5 X10*3/uL (0.1-1.2); Monocytes Percent Auto 5.2 % (2-11); NRBC Pct Auto 0.2 /100WBC (0.0-0.2); Neutrophils Absolute Auto 8.2 x10*3/uL (2.0-8.3); Neutrophils Percent Auto 89.4 % (45-73); Platelet Count 187 X10*3/uL (160-400); Red Blood Count 2.78 X10*6/uL (4.20-5.50); Red Cell Distribution Width 17.3 % (11.0-16.0); White Blood Count 9.2 X10*3/uL (4.8-10.8)
[2023-11-25 10:24] LABS: Basophils Percent Auto 0.2 % (0-2); Eosinophils Absolute Auto 0.1 X10*3/uL (0.0-0.4); Eosinophils Percent Auto 1.3 % (0-4); Hematocrit 26.3 % (37.0-47.0); Hemoglobin 8.7 g/dl (12.0-16.0); Imm Gran Pct Auto 2.2 % (0.0-0.4); Lymphocytes Absolute Auto 0.2 X10*3/uL (1.2-4.9); Lymphocytes Percent Auto 2.2 % (20-40); Mean Corpuscular HGB Conc 33.1 g/dl (31.0-35.0); Mean Corpuscular Hemoglobin 30.7 pg (27.0-33.0); Mean Corpuscular Volume 92.9 fL (80.0-98.0); Mean Platelet Volume 10.5 fL (9.4-12.3); Monocytes Absolute Auto 0.5 X10*3/uL (0.1-1.2); Monocytes Percent Auto 5.2 % (2-11); NRBC Pct Auto 0.3 /100WBC (0.0-0.2); Neutrophils Absolute Auto 8.3 x10*3/uL (2.0-8.3); Neutrophils Percent Auto 88.9 % (45-73); Platelet Count 191 X10*3/uL (160-400); Red Blood Count 2.83 X10*6/uL (4.20-5.50); Red Cell Distribution Width 17.4 % (11.0-16.0); White Blood Count 9.3 X10*3/uL (4.8-10.8)
[2023-11-25 10:27] LABS: INTERNATIONAL NORM RATIO 0.9 (0.9-1.1); Prothrombin Time 11.3 SEC (11.1-13.3)
[2023-11-25 11:10] LABS: Alanine Aminotransferase 58 U/L (0-31); Albumin Level 3.2 g/dL (3.5-5.0); Alkaline Phosphatase 102 U/L (39-117); Anion Gap 13 (12-20); Aspartate Amino Transferase 30 U/L (5-31); Bilirubin Total 1.1 mg/dL (0.0-1.0); Blood Urea Nitrogen 22 mg/dL (9-16); Calcium 8.9 mg/dL (8.4-10.2); Carbon Dioxide 24 mmol/L (22-29); Chloride 103 mmol/L (96-108); Estimated Glomerular Filt Rate > 60; Sodium 135 mmol/L (135-145); Total Protein 5.9 g/dL (6.5-8.0)
[2023-11-25 11:23] LABS: Free T4 (Free Thyroxine) 1.05 ng/dL (0.71-1.85)
[2023-11-25 11:28] LABS: Magnesium 1.5 mg/dL (1.6-2.6); Phosphorus 2.8 mg/dL (2.7-4.5)
[2023-11-25 11:37] LABS: Glucose Random 356 mg/dL (60-115)
[2023-11-26 14:08] LABS: CMV DNA PCR Qn Source BLOOD; CMV DNA Qn PCR NOT DETECTED Log IU/mL (NOT DETECTED); CMV DNA Qn Real Time PCR NOT DETECTED (NOT DETECTED)
== END 2023-11-25 09:47 | disposition home or self-care (01) ==
LOC: HO.LABR 09:46
PROVIDERS: PCP Family Medicine; Visit Provider Internal Medicine Transplant Hepatology
DX: E03.9 Hypothyroidism, unspecified (principal); R11.10 Vomiting, unspecified; Z94.4 Liver transplant status
CPT/HCPCS: 36415; 80053; 80197; 83735; 84100; 84439; 84443; 85025; 85610; 87497

== ENCOUNTER 2023-12-02 09:46 | Outpatient (REF) | payer MEDICAID, SELFPAY ==
[2023-12-02 10:06] LABS: MANUAL DIFF FLAG NO
[2023-12-02 10:49] LABS: Basophils Percent Auto 0.2 % (0-2); Eosinophils Percent Auto 0.2 % (0-4); Hematocrit 27.9 % (37.0-47.0); Hemoglobin 9.2 g/dl (12.0-16.0); Imm Gran Abs Auto 0.15 X10*3/uL (0.00-0.03); Imm Gran Pct Auto 3.3 % (0.0-0.4); Lymphocytes Absolute Auto 0.3 X10*3/uL (1.2-4.9); Lymphocytes Percent Auto 5.9 % (20-40); Mean Corpuscular Hemoglobin 31.4 pg (27.0-33.0); Mean Corpuscular Volume 95.2 fL (80.0-98.0); Mean Platelet Volume 10.2 fL (9.4-12.3); Monocytes Absolute Auto 0.2 X10*3/uL (0.1-1.2); Monocytes Percent Auto 4.6 % (2-11); Neutrophils Absolute Auto 3.9 x10*3/uL (2.0-8.3); Neutrophils Percent Auto 85.8 % (45-73); Platelet Count 175 X10*3/uL (160-400); Red Blood Count 2.93 X10*6/uL (4.20-5.50); White Blood Count 4.6 X10*3/uL (4.8-10.8)
[2023-12-02 10:52] LABS: INTERNATIONAL NORM RATIO 0.9 (0.9-1.1); Prothrombin Time 11.3 SEC (11.1-13.3)
[2023-12-02 11:20] LABS: Alanine Aminotransferase 72 U/L (0-31); Albumin Level 3.5 g/dL (3.5-5.0); Alkaline Phosphatase 89 U/L (39-117); Anion Gap 13 (12-20); Aspartate Amino Transferase 30 U/L (5-31); Bilirubin Total 0.9 mg/dL (0.0-1.0); Blood Urea Nitrogen 21 mg/dL (9-16); Calcium 8.2 mg/dL (8.4-10.2); Carbon Dioxide 24 mmol/L (22-29); Chloride 102 mmol/L (96-108); Estimated Glomerular Filt Rate 51; Magnesium 1.8 mg/dL (1.6-2.6); Phosphorus 3.6 mg/dL (2.7-4.5); Sodium 133 mmol/L (135-145); Total Protein 6.2 g/dL (6.5-8.0)
[2023-12-02 11:25] LABS: Glucose Random 488 mg/dL (60-115)
[2023-12-03 12:48] LABS: Cytomegalovirus Ab IgM <30.00 AU/mL
[2023-12-04 08:36] LABS: Tacrolimus Prograf 3.5 mcg/L
== END 2023-12-02 09:47 | disposition home or self-care (01) ==
LOC: HO.LAB 09:46
PROVIDERS: Internal Medicine Transplant Hepatology; PCP Family Medicine
DX: Z94.4 Liver transplant status (principal); Z79.899 Other long term (current) drug therapy
CPT/HCPCS: 36415; 80053; 80197; 83735; 84100; 85025; 85610; 86644; 86645

== ENCOUNTER 2023-12-09 12:58 | Outpatient (REF) | payer MEDICAID, SELFPAY ==
[2023-12-09 13:25] LABS: MANUAL DIFF FLAG NO
[2023-12-09 13:37] LABS: INTERNATIONAL NORM RATIO 0.9 (0.9-1.1)
[2023-12-09 13:39] LABS: Basophils Percent Auto 0.6 % (0-2); Eosinophils Absolute Auto 0.2 X10*3/uL (0.0-0.4); Eosinophils Percent Auto 2.2 % (0-4); Hematocrit 27.5 % (37.0-47.0); Hemoglobin 9.2 g/dl (12.0-16.0); Imm Gran Abs Auto 0.28 X10*3/uL (0.00-0.03); Imm Gran Pct Auto 4.1 % (0.0-0.4); Lymphocytes Absolute Auto 0.8 X10*3/uL (1.2-4.9); Lymphocytes Percent Auto 11.2 % (20-40); Mean Corpuscular HGB Conc 33.5 g/dl (31.0-35.0); Mean Corpuscular Hemoglobin 31.6 pg (27.0-33.0); Mean Corpuscular Volume 94.5 fL (80.0-98.0); Mean Platelet Volume 9.7 fL (9.4-12.3); Monocytes Absolute Auto 0.6 X10*3/uL (0.1-1.2); Monocytes Percent Auto 8.6 % (2-11); Neutrophils Percent Auto 73.3 % (45-73); Red Blood Count 2.91 X10*6/uL (4.20-5.50); Red Cell Distribution Width 17.5 % (11.0-16.0); White Blood Count 6.9 X10*3/uL (4.8-10.8)
[2023-12-09 13:40] LABS: Platelet Count 118 X10*3/uL (160-400)
[2023-12-09 13:47] LABS: Alanine Aminotransferase 63 U/L (0-31); Albumin Level 3.6 g/dL (3.5-5.0); Alkaline Phosphatase 72 U/L (39-117); Anion Gap 12 (12-20); Aspartate Amino Transferase 25 U/L (5-31); Bilirubin Total 0.6 mg/dL (0.0-1.0); Blood Urea Nitrogen 24 mg/dL (9-16); Calcium 9.2 mg/dL (8.4-10.2); Carbon Dioxide 27 mmol/L (22-29); Chloride 103 mmol/L (96-108); Estimated Glomerular Filt Rate 59; Glucose Random 230 mg/dL (60-115); Magnesium 1.6 mg/dL (1.6-2.6); Phosphorus 3.7 mg/dL (2.7-4.5); Potassium 4.9 mmol/L (3.3-5.1); Sodium 137 mmol/L (135-145); Total Protein 6.1 g/dL (6.5-8.0)
[2023-12-11 15:52] LABS: CMV DNA PCR Qn Source BLOOD; CMV DNA Qn PCR NOT DETECTED Log IU/mL (NOT DETECTED); CMV DNA Qn Real Time PCR NOT DETECTED (NOT DETECTED)
== END 2023-12-09 12:59 | disposition home or self-care (01) ==
LOC: HO.LABR 12:58
PROVIDERS: PCP Family Medicine; Visit Provider Internal Medicine Transplant Hepatology
DX: Z94.4 Liver transplant status (principal); Z79.899 Other long term (current) drug therapy
CPT/HCPCS: 36415; 80053; 80197; 83735; 84100; 85025; 85610; 87497

== ENCOUNTER 2023-12-23 10:41 | Outpatient (REF) | payer MEDICAID, SELFPAY ==
[2023-12-23 11:12] LABS: MANUAL DIFF FLAG NO
[2023-12-23 12:04] LABS: Basophils Percent Auto 0.7 % (0-2); Eosinophils Absolute Auto 0.2 X10*3/uL (0.0-0.4); Eosinophils Percent Auto 4.9 % (0-4); Hemoglobin 8.4 g/dl (12.0-16.0); Imm Gran Abs Auto 0.14 X10*3/uL (0.00-0.03); Imm Gran Pct Auto 3.1 % (0.0-0.4); Lymphocytes Absolute Auto 0.5 X10*3/uL (1.2-4.9); Lymphocytes Percent Auto 11.4 % (20-40); Mean Corpuscular HGB Conc 33.6 g/dl (31.0-35.0); Mean Corpuscular Hemoglobin 31.1 pg (27.0-33.0); Mean Corpuscular Volume 92.6 fL (80.0-98.0); Monocytes Absolute Auto 0.4 X10*3/uL (0.1-1.2); Monocytes Percent Auto 9.8 % (2-11); Neutrophils Absolute Auto 3.1 x10*3/uL (2.0-8.3); Neutrophils Percent Auto 70.1 % (45-73); Platelet Count 171 X10*3/uL (160-400); Red Cell Distribution Width 18.5 % (11.0-16.0); White Blood Count 4.5 X10*3/uL (4.8-10.8)
[2023-12-23 12:14] LABS: INTERNATIONAL NORM RATIO 0.9 (0.9-1.1)
[2023-12-23 12:41] LABS: Alanine Aminotransferase 71 U/L (0-31); Albumin Level 3.5 g/dL (3.5-5.0); Alkaline Phosphatase 63 U/L (39-117); Anion Gap 11 (12-20); Aspartate Amino Transferase 47 U/L (5-31); Bilirubin Total 0.5 mg/dL (0.0-1.0); Blood Urea Nitrogen 22 mg/dL (9-16); Calcium 8.9 mg/dL (8.4-10.2); Carbon Dioxide 25 mmol/L (22-29); Chloride 106 mmol/L (96-108); Estimated Glomerular Filt Rate 41; Glucose Random 254 mg/dL (60-115); Magnesium 1.9 mg/dL (1.6-2.6); Potassium 5.9 mmol/L (3.3-5.1); Sodium 136 mmol/L (135-145); Total Protein 6.3 g/dL (6.5-8.0)
[2023-12-24 08:54] LABS: Tacrolimus Prograf 5.9 mcg/L
[2023-12-24 19:03] LABS: Cytomegalovirus Ab IgG >10.00 U/mL; Cytomegalovirus Ab IgM <30.00 AU/mL
== END 2023-12-23 10:42 | disposition home or self-care (01) ==
LOC: HO.LABR 10:41
PROVIDERS: PCP Family Medicine; Visit Provider Internal Medicine Transplant Hepatology
DX: Z94.4 Liver transplant status (principal); Z79.899 Other long term (current) drug therapy; D84.9 Immunodeficiency, unspecified
CPT/HCPCS: 36415; 80053; 80197; 83735; 84100; 85025; 85610; 86644; 86645

== ENCOUNTER 2024-01-07 09:27 | Outpatient (REF) | payer MEDICAID, SELFPAY ==
[2024-01-07 09:40] LABS: MANUAL DIFF FLAG NO
[2024-01-07 10:13] LABS: Basophils Absolute Auto 0.1 X10*3/uL (0.0-0.2); Basophils Percent Auto 1.6 % (0-2); Eosinophils Absolute Auto 0.3 X10*3/uL (0.0-0.4); Eosinophils Percent Auto 7.2 % (0-4); Hematocrit 24.5 % (37.0-47.0); Hemoglobin 8.1 g/dl (12.0-16.0); Imm Gran Abs Auto 0.04 X10*3/uL (0.00-0.03); Imm Gran Pct Auto 1.1 % (0.0-0.4); Lymphocytes Absolute Auto 0.5 X10*3/uL (1.2-4.9); Lymphocytes Percent Auto 12.7 % (20-40); Mean Corpuscular HGB Conc 33.1 g/dl (31.0-35.0); Mean Corpuscular Hemoglobin 29.3 pg (27.0-33.0); Mean Corpuscular Volume 88.8 fL (80.0-98.0); Mean Platelet Volume 10.3 fL (9.4-12.3); Monocytes Absolute Auto 0.5 X10*3/uL (0.1-1.2); Monocytes Percent Auto 12.5 % (2-11); Neutrophils Absolute Auto 2.5 x10*3/uL (2.0-8.3); Neutrophils Percent Auto 64.9 % (45-73); Platelet Count 169 X10*3/uL (160-400); Red Blood Count 2.76 X10*6/uL (4.20-5.50); Red Cell Distribution Width 16.5 % (11.0-16.0); White Blood Count 3.8 X10*3/uL (4.8-10.8)
[2024-01-07 10:15] LABS: INTERNATIONAL NORM RATIO 1.1 (0.9-1.1); Prothrombin Time 12.5 SEC (10.9-12.4)
[2024-01-07 11:02] LABS: Alanine Aminotransferase 56 U/L (0-31); Albumin Level 3.5 g/dL (3.5-5.0); Alkaline Phosphatase 58 U/L (39-117); Anion Gap 12 (12-20); Aspartate Amino Transferase 47 U/L (5-31); Bilirubin Total 0.5 mg/dL (0.0-1.0); Blood Urea Nitrogen 21 mg/dL (9-16); Calcium 8.7 mg/dL (8.4-10.2); Carbon Dioxide 24 mmol/L (22-29); Chloride 108 mmol/L (96-108); Estimated Glomerular Filt Rate 40; Glucose Random 206 mg/dL (60-115); Magnesium 1.8 mg/dL (1.6-2.6); Phosphorus 4.8 mg/dL (2.7-4.5); Potassium 5.2 mmol/L (3.3-5.1); Sodium 139 mmol/L (135-145); Total Protein 6.3 g/dL (6.5-8.0)
[2024-01-08 22:43] LABS: Tacrolimus Prograf 9.1 mcg/L
[2024-01-11 13:23] LABS: CMV DNA PCR Qn Source NOT GIVEN; CMV DNA Qn PCR NOT DETECTED Log IU/mL (NOT DETECTED); CMV DNA Qn Real Time PCR NOT DETECTED (NOT DETECTED)
== END 2024-01-07 09:28 | disposition home or self-care (01) ==
LOC: HO.LABR 09:27
PROVIDERS: Internal Medicine Transplant Hepatology; PCP Family Medicine
DX: Z94.4 Liver transplant status (principal); Z79.899 Other long term (current) drug therapy
CPT/HCPCS: 36415; 80053; 80197; 83735; 84100; 85025; 85610; 87497

== ENCOUNTER 2024-01-15 10:02 | Outpatient (REF) | payer MEDICAID, SELFPAY ==
[2024-01-15 10:51] LABS: Basophils Percent Auto 1.1 % (0-2); Eosinophils Absolute Auto 0.2 X10*3/uL (0.0-0.4); Eosinophils Percent Auto 6.8 % (0-4); Hematocrit 24.9 % (37.0-47.0); Hemoglobin 8.6 g/dl (12.0-16.0); Imm Gran Abs Auto 0.04 X10*3/uL (0.00-0.03); Imm Gran Pct Auto 1.1 % (0.0-0.4); Lymphocytes Absolute Auto 0.4 X10*3/uL (1.2-4.9); MANUAL DIFF FLAG NO; Mean Corpuscular HGB Conc 34.5 g/dl (31.0-35.0); Mean Corpuscular Hemoglobin 30.2 pg (27.0-33.0); Mean Corpuscular Volume 87.4 fL (80.0-98.0); Mean Platelet Volume 9.8 fL (9.4-12.3); Monocytes Absolute Auto 0.4 X10*3/uL (0.1-1.2); Monocytes Percent Auto 10.3 % (2-11); Neutrophils Absolute Auto 2.4 x10*3/uL (2.0-8.3); Neutrophils Percent Auto 68.7 % (45-73); Platelet Count 160 X10*3/uL (160-400); Red Blood Count 2.85 X10*6/uL (4.20-5.50); Red Cell Distribution Width 15.9 % (11.0-16.0); White Blood Count 3.5 X10*3/uL (4.8-10.8)
[2024-01-15 11:02] LABS: INTERNATIONAL NORM RATIO 1.1 (0.9-1.1)
[2024-01-15 11:51] LABS: Alanine Aminotransferase 54 U/L (0-31); Albumin Level 3.7 g/dL (3.5-5.0); Alkaline Phosphatase 52 U/L (39-117); Anion Gap 13 (12-20); Aspartate Amino Transferase 51 U/L (5-31); Bilirubin Total 0.5 mg/dL (0.0-1.0); Blood Urea Nitrogen 16 mg/dL (9-16); Calcium 9.7 mg/dL (8.4-10.2); Carbon Dioxide 23 mmol/L (22-29); Chloride 107 mmol/L (96-108); Estimated Glomerular Filt Rate 37; Glucose Random 215 mg/dL (60-115); Magnesium 1.6 mg/dL (1.6-2.6); Phosphorus 5.4 mg/dL (2.7-4.5); Potassium 5.3 mmol/L (3.3-5.1); Sodium 138 mmol/L (135-145); Total Protein 6.6 g/dL (6.5-8.0)
[2024-01-16 11:28] LABS: Tacrolimus Prograf 11.4 mcg/L
[2024-01-18 17:33] LABS: Cytomegalovirus Ab IgG >10.00 U/mL; Cytomegalovirus Ab IgM <30.00 AU/mL
== END 2024-01-15 10:03 | disposition home or self-care (01) ==
LOC: HO.LABR 10:02
PROVIDERS: PCP Family Medicine; Visit Provider Internal Medicine Transplant Hepatology
DX: Z94.4 Liver transplant status (principal); Z79.899 Other long term (current) drug therapy
CPT/HCPCS: 36415; 80053; 80197; 83735; 84100; 85025; 85610; 86644; 86645

== ENCOUNTER 2024-01-21 10:19 | Outpatient (REF) | payer MEDICAID, SELFPAY ==
[2024-01-21 10:36] LABS: MANUAL DIFF FLAG NO
[2024-01-21 10:48] LABS: Basophils Percent Auto 1.2 % (0-2); Eosinophils Absolute Auto 0.3 X10*3/uL (0.0-0.4); Eosinophils Percent Auto 7.6 % (0-4); Hematocrit 25.1 % (37.0-47.0); Hemoglobin 8.3 g/dl (12.0-16.0); Imm Gran Abs Auto 0.01 X10*3/uL (0.00-0.03); Imm Gran Pct Auto 0.3 % (0.0-0.4); Lymphocytes Absolute Auto 0.4 X10*3/uL (1.2-4.9); Lymphocytes Percent Auto 12.4 % (20-40); Mean Corpuscular HGB Conc 33.1 g/dl (31.0-35.0); Mean Corpuscular Hemoglobin 28.6 pg (27.0-33.0); Mean Corpuscular Volume 86.6 fL (80.0-98.0); Monocytes Absolute Auto 0.3 X10*3/uL (0.1-1.2); Monocytes Percent Auto 9.7 % (2-11); Neutrophils Absolute Auto 2.3 x10*3/uL (2.0-8.3); Neutrophils Percent Auto 68.8 % (45-73); Platelet Count 155 X10*3/uL (160-400); Red Cell Distribution Width 15.2 % (11.0-16.0); White Blood Count 3.4 X10*3/uL (4.8-10.8)
[2024-01-21 10:49] LABS: INTERNATIONAL NORM RATIO 1.1 (0.9-1.1)
[2024-01-21 11:10] LABS: Alanine Aminotransferase 46 U/L (0-31); Albumin Level 3.7 g/dL (3.5-5.0); Alkaline Phosphatase 53 U/L (39-117); Anion Gap 11 (12-20); Aspartate Amino Transferase 47 U/L (5-31); Bilirubin Total 0.4 mg/dL (0.0-1.0); Blood Urea Nitrogen 19 mg/dL (9-16); Calcium 9.2 mg/dL (8.4-10.2); Carbon Dioxide 25 mmol/L (22-29); Chloride 107 mmol/L (96-108); Estimated Glomerular Filt Rate 36; Glucose Random 189 mg/dL (60-115); Magnesium 1.7 mg/dL (1.6-2.6); Phosphorus 5.4 mg/dL (2.7-4.5); Potassium 5.1 mmol/L (3.3-5.1); Sodium 138 mmol/L (135-145); Total Protein 6.6 g/dL (6.5-8.0)
[2024-01-23 03:28] LABS: Tacrolimus Prograf 11.1 mcg/L
[2024-01-25 05:08] LABS: Cytomegalovirus Ab IgG >10.00 U/mL; Cytomegalovirus Ab IgM <30.00 AU/mL
== END 2024-01-21 10:20 | disposition home or self-care (01) ==
LOC: HO.LABR 10:19
PROVIDERS: PCP Family Medicine; Visit Provider Internal Medicine Transplant Hepatology
DX: Z94.4 Liver transplant status (principal); Z79.899 Other long term (current) drug therapy
CPT/HCPCS: 36415; 80053; 80197; 83735; 84100; 85025; 85610; 86644; 86645

== ENCOUNTER 2024-01-28 10:28 | Outpatient (REF) | payer MEDICAID, SELFPAY ==
[2024-01-28 10:59] LABS: MANUAL DIFF FLAG NO
[2024-01-28 11:41] LABS: INTERNATIONAL NORM RATIO 1.1 (0.9-1.1); Prothrombin Time 12.7 SEC (10.9-12.4)
[2024-01-28 11:43] LABS: Basophils Percent Auto 0.8 % (0-2); Eosinophils Absolute Auto 0.2 X10*3/uL (0.0-0.4); Eosinophils Percent Auto 5.2 % (0-4); Hematocrit 25.5 % (37.0-47.0); Hemoglobin 8.4 g/dl (12.0-16.0); Imm Gran Abs Auto 0.02 X10*3/uL (0.00-0.03); Imm Gran Pct Auto 0.5 % (0.0-0.4); Lymphocytes Absolute Auto 0.3 X10*3/uL (1.2-4.9); Lymphocytes Percent Auto 8.8 % (20-40); Mean Corpuscular HGB Conc 32.9 g/dl (31.0-35.0); Mean Corpuscular Hemoglobin 28.4 pg (27.0-33.0); Mean Corpuscular Volume 86.1 fL (80.0-98.0); Mean Platelet Volume 10.8 fL (9.4-12.3); Monocytes Absolute Auto 0.3 X10*3/uL (0.1-1.2); Monocytes Percent Auto 8.8 % (2-11); Neutrophils Absolute Auto 2.8 x10*3/uL (2.0-8.3); Neutrophils Percent Auto 75.9 % (45-73); Platelet Count 158 X10*3/uL (160-400); Red Blood Count 2.96 X10*6/uL (4.20-5.50); Red Cell Distribution Width 15.1 % (11.0-16.0); White Blood Count 3.7 X10*3/uL (4.8-10.8)
[2024-01-28 12:16] LABS: Alanine Aminotransferase 39 U/L (0-31); Albumin Level 3.7 g/dL (3.5-5.0); Alkaline Phosphatase 46 U/L (39-117); Anion Gap 12 (12-20); Aspartate Amino Transferase 40 U/L (5-31); Bilirubin Total 0.4 mg/dL (0.0-1.0); Blood Urea Nitrogen 15 mg/dL (9-16); Calcium 9.7 mg/dL (8.4-10.2); Carbon Dioxide 27 mmol/L (22-29); Chloride 104 mmol/L (96-108); Estimated Glomerular Filt Rate 37; Glucose Random 208 mg/dL (60-115); Magnesium 1.7 mg/dL (1.6-2.6); Phosphorus 5.2 mg/dL (2.7-4.5); Potassium 5.4 mmol/L (3.3-5.1); Sodium 138 mmol/L (135-145); Total Protein 6.5 g/dL (6.5-8.0)
[2024-01-30 03:03] LABS: Cytomegalovirus Ab IgG >10.00 U/mL; Cytomegalovirus Ab IgM <30.00 AU/mL
[2024-01-30 03:07] LABS: Tacrolimus Prograf 5.6 mcg/L
== END 2024-01-28 10:29 | disposition home or self-care (01) ==
LOC: HO.LAB 10:28
PROVIDERS: PCP Family Medicine; Visit Provider Internal Medicine Transplant Hepatology
DX: Z94.4 Liver transplant status (principal)
CPT/HCPCS: 36415; 80053; 80197; 83735; 84100; 85025; 85610; 86644; 86645

== ENCOUNTER 2024-02-04 09:45 | Outpatient (REF) | payer MEDICAID, SELFPAY ==
[2024-02-04 10:15] LABS: MANUAL DIFF FLAG NO
[2024-02-04 10:37] LABS: Basophils Percent Auto 0.8 % (0-2); Eosinophils Absolute Auto 0.1 X10*3/uL (0.0-0.4); Eosinophils Percent Auto 3.9 % (0-4); Hematocrit 26.9 % (37.0-47.0); Hemoglobin 8.8 g/dl (12.0-16.0); Imm Gran Abs Auto 0.02 X10*3/uL (0.00-0.03); Imm Gran Pct Auto 0.6 % (0.0-0.4); Lymphocytes Absolute Auto 0.4 X10*3/uL (1.2-4.9); Lymphocytes Percent Auto 11.7 % (20-40); Mean Corpuscular HGB Conc 32.7 g/dl (31.0-35.0); Mean Corpuscular Hemoglobin 28.1 pg (27.0-33.0); Mean Corpuscular Volume 85.9 fL (80.0-98.0); Mean Platelet Volume 9.9 fL (9.4-12.3); Monocytes Absolute Auto 0.4 X10*3/uL (0.1-1.2); Monocytes Percent Auto 10.6 % (2-11); Neutrophils Absolute Auto 2.6 x10*3/uL (2.0-8.3); Neutrophils Percent Auto 72.4 % (45-73); Platelet Count 180 X10*3/uL (160-400); Red Blood Count 3.13 X10*6/uL (4.20-5.50); Red Cell Distribution Width 14.6 % (11.0-16.0); White Blood Count 3.6 X10*3/uL (4.8-10.8)
[2024-02-04 10:42] LABS: Prothrombin Time 11.8 SEC (10.9-12.4)
[2024-02-04 11:09] LABS: Alanine Aminotransferase 41 U/L (0-31); Albumin Level 3.8 g/dL (3.5-5.0); Alkaline Phosphatase 51 U/L (39-117); Anion Gap 12 (12-20); Aspartate Amino Transferase 41 U/L (5-31); Bilirubin Total 0.4 mg/dL (0.0-1.0); Blood Urea Nitrogen 20 mg/dL (9-16); Calcium 9.1 mg/dL (8.4-10.2); Carbon Dioxide 23 mmol/L (22-29); Chloride 107 mmol/L (96-108); Estimated Glomerular Filt Rate 39; Glucose Random 250 mg/dL (60-115); Magnesium 1.8 mg/dL (1.6-2.6); Phosphorus 5.3 mg/dL (2.7-4.5); Potassium 5.5 mmol/L (3.3-5.1); Sodium 136 mmol/L (135-145); Total Protein 6.5 g/dL (6.5-8.0)
[2024-02-05 16:34] LABS: CMV DNA PCR Qn Source BLOOD; CMV DNA Qn PCR NOT DETECTED Log IU/mL (NOT DETECTED); CMV DNA Qn Real Time PCR NOT DETECTED (NOT DETECTED)
[2024-02-05 21:44] LABS: Tacrolimus Prograf 3.1 mcg/L
== END 2024-02-04 09:46 | disposition home or self-care (01) ==
LOC: HO.LABR 09:45
PROVIDERS: Absent Provider Family Medicine; PCP Family Medicine; Visit Provider Internal Medicine Transplant Hepatology
DX: Z94.4 Liver transplant status (principal); M79.672 Pain in left foot
CPT/HCPCS: 36415; 73630; 80053; 80197; 83735; 84100; 85025; 85610; 87497

== ENCOUNTER 2024-02-12 09:47 | Outpatient (REF) | payer MEDICAID, SELFPAY ==
--- NOTE | ~2024-02-12 | MM_ITS ---
EXAMINATION: MM SCREENING DIGITAL BREAST TOMOSYNTHESIS, BILATERAL CLINICAL INFORMATION: Screening. Asymptomatic. COMPARISON: Mammography: Comparison is made with available priors TECHNIQUE: Digital breast mammography with tomosynthesis is performed in both the craniocaudal and mediolateral oblique views along with computer-aided detection (CAD). FINDINGS: There are scattered areas of fibroglandular density (ACR BI-RADS breast composition Category b). There are no significant masses, abnormal calcifications, or other abnormalities. MM/MM tomosynthesis screening BI IMPRESSION: No mammographic evidence of malignancy. ASSESSMENT: BI-RADS BI-RADS 1 - Negative RECOMMENDATION: Routine annual mammography screening. 1 year F/U This examination should not preclude the clinical evaluation of a suspicious palpable abnormality. This patient's information was entered into a reminder system with a target due date for their next mammogram. Electronically signed by: Jody Reyes DO 02/23/2024 08:47 AM RUTH
== END 2024-02-12 09:48 | disposition home or self-care (01) ==
LOC: HO.MAMMO 09:47
PROVIDERS: PCP Family Medicine; Visit Provider Family Medicine
DX: Z12.31 Encounter for screening mammogram for malignant neoplasm of breast (principal)
CPT/HCPCS: 77063; 77067

== ENCOUNTER → 2024-02-12 11:00 | Outpatient (BNV) | payer MEDICAID, SELFPAY | PROVIDERS: PCP Family Medicine; Visit Provider Internal Medicine | DX: Z12.31 Encounter for screening mammogram for malignant neoplasm of breast (principal) | CPT/HCPCS: 77063; 77067 ==

== ENCOUNTER 2024-09-06 12:38 | Outpatient (REF) | payer MEDICAID, SELFPAY ==
--- OUTSIDE RECORDS SUMMARY | 2024-09-06 13:44 | XMS_ITS | Encounter Summary ---
Author Organization [employer] Address [address] [place] [address] 7 [place] [address] Care Team Providers Care Chronograph Operator Name Role Phone Radha Anne MD Primary Care Provider [phone] Encounter Details Date Type Department Care Team ([facility] st Contact Info) Description 11/27/2023 Orders Only [facility] MEDICINE [address] [place], [place] [phone] Radha Anne MD [address] [place], [place] [phone] Hypomagnesemia (Primary Dx) Social History Tobacco Use Types Packs/Day Years Used Date Smoking Tobacco: Former Cigarettes Passive Smoke Exposure: Never Smokeless Tobacco: Never Alcohol Use Standard Drinks/Week Comments Not Currently 0 (1 standard drink = 0.6 oz pur e alcohol) PHQ-2 Answer Date Recorded Patient Health Questionnaire-2 Score 0 09/03/2022 Housing Stability Answer Date Recorded What is your housing situation today? I have housing today, but I am worried about losing housing in the future 07/24/[address] you li ve. Do you have problems with any of the following? None of the above 07/24/2023 Food Insecurity Answer Date Recorded Within the past 12 months, y ou worried that your food would run out before you got money to buy more: Never True 02/03/2023 Within the past 12 months,th e food you bought just didn't last and you didn't have enough money to get more: Never True Transportation Answer Date Recorded In the past 12 months, has l ack of transportation kept you from medical appts, meetings, work or from getting things needed for daily living? Yes, it has kept me from medical appointments or getting medications. 07/24/2023 Utilities Answer Date Recorded In the past 12 months, has t he electric, gas, oil or water company threatened to shut off services in your home? No 07/24/2023 Depression Answer Date Recorded Patient Health Questionnaire-2 Score 0 09/03/2022 Comments Unknown Sex and Gender Information Value Date Recorded Sex Assigned at Female 02/17/2022 10:14 AM EDT Legal Sex Female 10:14 AM EDT Gender Identity Female 02/17/2022 10:14 AM EDT Sexual Orientation Straight 02/17/2022 10 :14 AM EDT documented as of this encounter Plan of Treatment Scheduled Orders Name Type Priority Associated Diagnoses Orde r Schedule Basic Metabolic Panel Lab Routine Hypomagnesemia Expected: 11/27/2023 (Approximate), Expires: 11/26/2024 Magnesium Lab Routine Hypomagnesemia Expected: 11/27/2023 (Approximate), Expires: 11/26/2024 documented as of this encounter Visit Diagnoses Diagnosis Hypomagnesemia- Primary Disorders of magnesium metabolism documented in this encounter Care Teams Chronograph Operator Relationship Specialty Start Date End Date Radha Anne MD [address] [place] [id number] PCP - General Family Medicine 03/01/13 Lynn Fisher Runstitching Machine OperatorHoning Machine Try Out Setter 01/07/23 Lynn Fisher Runstitching Machine OperatorHoning Machine Try Out Setter 08/13/23 Lynn Fisher Runstitching Machine OperatorHoning Machine Try Out Setter 08/29/24 documented as of this encounter
--- OUTSIDE RECORDS SUMMARY | 2024-09-06 13:44 | XMS_ITS | Encounter Summary ---
Author Organization [employer] Address [address] [facility] 7[address] [place] [address] Care Team Providers Care Solid Waste Truck Driver Name Role Phone Radha Anne MD Primary Care Provider [phone] Encounter Details Date Type Department Care Team ([facility] st Contact Info) Description 04/28/2023 Orders Only [facility] MEDICINE [address] [place], [place] [phone] Radha Anne MD [address] [place], [place] [phone] Obstructive sleep apnea syndrome (Primary Dx); Moderate persistent asthma without complication Social History Tobacco Use Types Packs/Day Years Used Date Smoking Tobacco: Never Smokeless Tobacco: Never Alcohol Use Standard Drinks/Week Comments Not Currently 0 (1 standard drink = 0.6 oz pur e alcohol) PHQ-2 Answer Date Recorded Patient Health Questionnaire-2 Score 0 09/03/2022 Housing Stability Answer Date Recorded What is your housing situation today? I have derianluigi barrientos 04/29/[address] you li ve. Do you have problems with any of the following? Mold 04/29/2023 Food Insecurity Answer Date Recorded Within the [...] from getting things needed for daily living? No 02/03/2023 Utilities Answer Date Recorded In the past 12 months, has t he electric, gas, oil or water company threatened to shut off services in your home? Yes 04/29/2023 Depression Answer Date Recorded Patient Health Questionnaire-2 Score 0 09/03/2022 Comments Unknown Sex and Gender Information Value Date Recorded Sex Assigned at Female 02/17/2022 10:14 AM EDT Legal Sex Female 10:14 AM EDT Gender Identity Female 02/17/2022 10:14 AM EDT Sexual Orientation Straight 02/17/2022 10 :14 AM EDT documented as of this encounter Plan of Treatment Not on file documented as of this encounter Visit Diagnoses Diagnosis Obstructive sleep apnea syndrome- Primary Obstructive sleep apnea (adult) (pediatric) Moderate persistent asthma without complication documented in this encounter Care Teams Solid Waste Truck Driver Relationship Specialty Start Date End Date Radha Anne MD [address] [place] [address] PCP - General Family Medicine 03/01/13 Lynn Fisher Curtain FramerVan Owner Operator 01/07/23 Lynn Fisher Curtain FramerVan Owner Operator 08/13/23 Lynn Fisher Curtain FramerVan Owner Operator 08/29/24 documented as of this encounter
--- OUTSIDE RECORDS SUMMARY | 2024-09-06 13:44 | XMS_ITS | Encounter Summary ---
Author Organization [employer] Address [address] [place] [address] 7 [place] [address] Care Team Providers Care Outreach And Education Social Worker Name Role Phone Radha Anne MD Primary Care Provider [phone] Encounter Details Date Type Department Care Team (Latest Contact Info) Description 09/06/2024 11:30 AM EDT Office Visit [facility] MEDICINE [address] [place], [place] [phone] Radha Anne MD [address] [place], [place] [phone] Type 2 diabetes mellitus with other specified complication, with long-term current use of insulin (CMS/HCC) (Primary Dx); Hypertension, unspecified type; Dyslipidemia; Long-term use of immunosuppressant medication; Hypothyroidism, unspecified type; Liver transplant recipient (CMS/HCC); Liver transplant rejection (CMS/HCC); Portal vein thrombosis; Stage 3a chronic kidney disease (CMS/HCC); Hyperkalemia; Leg edema; Bilateral leg edema Social History Tobacco Use Types Packs/Day Years Used Date Smoking Tobacco: Former Cigarettes Passive Smoke Exposure: Never Smokeless Tobacco: Never Alcohol Use Standard Drinks/Week Comments Not Currently 0 (1 standard drink = 0.6 oz pur e alcohol) PHQ-2 Answer Date Recorded Patient Health Questionnaire-2 Score 0 09/03/2022 Alcohol Answer Date Recorded Frequency of Alcohol Consumption Not on file 02/02/2024 Average Number of Drinks Not on file 024 Frequency of Binge Drinking Not on file 01/18 Score 0 02/02/2024 Housing Stability Answer Date Recorded What is [...] Date Recorded Patient Health Questionnaire-2 Score 0 12/07/2023 Internet Access Answer Date Recorded Internet Access Q1 Yes 04/29/2024 Internet Access Q2 Not on file 04/29/2024 Comments No Sex and Gender Information Value Date Recorded Sex Assigned at Female 02/17/2022 10:14 AM EDT Legal Sex Female 10:14 AM EDT Gender Identity Female 02/17/2022 10:14 AM EDT Sexual Orientation Straight 02/17/2022 10 :14 AM EDT documented as of this encounter Last Filed Vital Signs Vital Sign Reading Time Taken Comments Blood Pressure 194/90 09/06/2024 11:37 AM EDT Pulse 86 09/06/2024 11:37 AM EDT Temperature 36.1 ??C (96.9 ??F) 09/06/2024 11:37 AM E DT Respiratory Rate 18 09/06/2024 11:37 AM EDT Oxygen Saturation 96% 09/06/2024 11:37 AM EDT Inhaled Oxygen Concentration - - Weight 120 kg (264 lb 6.4 oz) 09/06/2024 11:37 A M EDT Height 160 cm (5' 3 ) 09/06/2024 11:37 AM EDT Body Mass Index 46.84 09/06/2024 11:37 AM EDT documented in this encounter Miscellaneous Notes * Assessment & Plan Note - Chetna Puga MA - 09/06/2024 12:30 PM EDT Associated Problem(s): Bilateral leg edema - Currently prescribed nifedipine which may be contributing to edema - Recommend low sodium diet - Will prescribe short course of furosemide * Assessment & Plan Note - Chetna Puga MA - 09/06/2024 9:09 AM EDTAssociated Problem(s): Stage 3a chronic kidney disease (CMS/HCC) - most recent DULCE in July 2023 - likely due to renal hypoperfusion (dehydration / anemia / diuretics / third- spacing / hypotension) - avoid nephrotoxic drugs * Assessment & Plan Note - Chetna Puga MA - 09/06/2024 9:09 AM EDTAssociated Problem(s): Hyperkalemia - [facility] hospitalization 10/28-11/01/23. Dx hyperkalemia and anemia. Liver transplant team attributed itto TMP/SMX. Laundry Aid suggested chronic spironlactone use (off after transplant). Received Lokelma, calcium gluconate, D50, and IVF inpatient. Discharged with Valtassa. Received 1 unit PRBC. - currently still on patiromer; continue * Assessment & Plan Note - Chetna Puga MA - 09/06/2024 9:08 AM EDTAssociated Problem(s): Portal vein thrombosis - continue apixaban * Assessment & Plan Note - Chetna Puga MA - 09/06/2024 9:08 AM EDTAssociated Problem(s): Liver transplant recipient ([facility]/HCC) - following with Dr. Verma, [facility] locally, and Dr. Ruiz at [facility] GI / hepatology / transplant - previously receiving paracentesis q2wk until she had TIPS on 05/29/23, last paracentesis on 05/29/23 5L removed - s/p TIPS on 05/29/23 - s/p diseased donor liver transplant on 09/24/23. - post-op complications: DULCE due to ATN, followed by fashion illustrator; portal vein thrombosis, started on apixaban. Immunosuppressant regimens are: prednisone, tacrolimus, and mycophenolate. - Because the donor liver is HBV core antibody positive, she was started on entecavir. - TMP/SMX was switched to atovaquone briefly due to ATN for OI prophylaxis, and was switched back to TMP/SMX upon discharge. Then, back to atovaquone. -Her fluid balance improved and no longer needed midodrine or previous diuretics. She was kept on furosemide on 40 mg daily initially, but stopped - * Assessment & Plan Note - Chetna Puga MA - 09/06/2024 9:07 AM EDTAssociated Problem(s): Type 2 diabetes mellitus (CMS/HCC) - A1C 7.9% on 09/06/24, increase from 5.9% on 02/02/24 -occasional prednisone use for asthma exacerbation. -continue basal insulin, Toujeo 16 units daily -continue bolus insulin, Humalog 8 to 10 units with meal -Prescribed Ozempic by senior hr manager -previously on metformin and dulaglutide Last eye exam: Nov 2023, per patient, obtain last visit note Last foot exam: 08/18/23, toe deformity, neuropathy, seen by sample examiner in the past and has diabeticfootwear Last microalbumin test: Overdue; Hx microalbuminuria Last lipid profile: 06/29/23 * Assessment & Plan Note - Chetna Puga MA - 09/06/2024 9:06 AM EDTAssociated Problem(s): Hypothyroidism - current replacement: levothyroxine 75 mcg daily - last TSH 4.6 on 08/06/23. During last hospitalization, levothyroxine was increased from 50 to 75 mcg - continue current replacement - will check her TSH at the end of August * Assessment & Plan Note - Chetna Puga MA - 09/06/2024 9:06 AM EDTAssociated Problem(s): Thrombocytopenia (CMS/HCC) - following with [facility] Hematology, last seen in May 2023 - due to cirrhosis / hypersplenism - Continue monitoring periodically - Recommended to provide platelet transfusion prior to procedure or thrombopoietin stimulating factor if indicated * Assessment & Plan Note - Cehtna Puga MA - 09/06/2024 9:06 AM EDTAssociated Problem(s): Hypertension -Goal BP < 140/90 per JNC-8 and < 130/80 per ACC/AHA guideline (Treatment threshold >= 130/80 ) - transthoracic echocardiogram in July 2023 showed normal LV systolic function with EF 70% (patient was anemic and hypotensive) - patient has hypotensive episodes, and was restarted on midodrine - questionable medication adherence previously - Continue working on lifestyle modifications - Recommended self-monitoring BP. - Currently prescribed medications: nifedipine 30 mg daily, pt has not been taking - Treatment history: Carvedilol was discontinued after TIPS, but restarted when she was admitted [facility], then discontinued again. On and off spironolactone, currently on. Switching back and forth between furosemide and torsemide. 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 No longer on eplerenone.No longer on ACEI/ARB. No longer on spironolactone, furosemide, or torsemide. - Will prescribe furosemide 20 mg daily for short term due to edema * Assessment & Plan Note - Chetna Puga MA - 09/06/2024 9:06 AM EDTAssociated Problem(s): Dyslipidemia Last lipid profile: 05/13/23 total cholesterol 85; triglyceride 59; HDL 33; LDL 41 Current medication: Atorvastatin 20 mg at bedtime Continue working on lifestyle modification * Assessment & Plan Note - Chetna Puga MA - 09/06/2024 9:05 AM EDTAssociated Problem(s): Long-term use of immunosuppressant medication - prednisone is being tapered currently, down to 10 mg - tacrolimus and mycophenolate dosages and levels are managed by transplant team documented in this encounter Plan of Treatment Scheduled Orders Name Type Priority Associated Diagnoses Orde r Schedule Basic Metabolic Panel Lab Routine Hypertension, unspecified type Expected: 09/06/2024 (Approximate), Expires: 09/06/2025 TSH with Reflex to Free T4 Lab Routine Hypothyroidism, unspecified type Expected: 09/06/2024 (Approximate), Expires: 09/06/2025 Lipid Panel with Reflex to Direct LDL Lab Routine Dyslipidemia Ordered: 09/06/2024 Albumin, Random Urine W/Creatinine Lab Routine Type 2 diabetes mellitus with other specified complication, with long-term current use of insulin ([facility]) Expected: 09/06/2024 (Approximate), Expires: 09/06/2025 documented as of this encounter Procedures Procedure Name Priority Date/Time Associated Diagnosis Comments POCT GLYCATED HEMOGLOBIN, TOTAL Routine 09/06/2024 12:21 PM EDT Type 2 diabetes mellitus with other specified complication, with long-term current use of insulin (CMS/[facility]) POCT GLUCOSE Routine 09/06/2024 12:21 PM EDT Type 2 diabetes mellitus with other specified complication, with long-term current use of insulin (CMS/HCC) documented in this encounter Results * (ABNORMAL) POCT HGB A1C (09/06/2024 12:21 PM EDT) Hemoglobin A1C 7.9(A) 4.0 - 6.0 % QC Media Lot # [id number] Lot# Expiration Date Blood 09/06/2024 12:2 1 PM EDT Radha Anne MD POINT OF CARE TEST ENTER/EDIT OR DERABLES Final Result * POCT Glucose (09/06/2024 12:21 PM EDT) Glucose Blood, POC 196 60 - 200 mg/dL QC Media Lot # [id number] Lot# Expiration Date [id number] Blood Capillary blood specimen / Unknown 09/06/2024 12:21 PM EDT Radha Anne MD POINT OF CARE TEST ENTER/EDIT OR DERABLES Final Result documented in this encounter Visit Diagnoses Diagnosis Type 2 diabetes mellitus with other specified complication, with long-term current use of insulin (CMS/HCC)- Primary Hypertension, unspecified type Dyslipidemia Other and unspecified hyperlipidemia Long-term use of immunosuppressant medication Hypothyroidism, unspecified type Liver transplant recipient (CMS/HCC) Liver transplant rejection (CMS/HCC) Complications of transplanted liver Portal vein thrombosis Stage 3a chronic kidney disease (CMS/HCC) Hyperkalemia Hyperpotassemia Leg edema Edema Bilateral leg edema Edema documented in this encounter Care Teams Outreach And Education Social Worker Relationship Specialty Start Date End Date Radha Anne MD [address] [place] [id number] PCP - General Family Medicine 03/01/13 Lynn Fisher Finishing Range FeederPit Hand 01/07/23 Lynn Fisher Finishing Range FeederPit Hand 08/13/23 Lynn Fisher Finishing Range FeederPit Hand 08/29/24 documented as of this encounter
--- OUTSIDE RECORDS SUMMARY | 2024-09-06 13:44 | XMS_ITS | Encounter Summary ---
Author Organization [employer] Address [address] [place] [address] 7 [place] [address] Care Team Providers Care Industrial Trainer Name Role Phone Radha Anne MD Primary Care Provider [phone] Reason for Visit * Reason Comments Med Refill Encounter Details Date Type Department Care Team ([facility] st Contact Info) Description 06/05/2023 Telephone [facility] MEDICINE [address] [place] [address] Radha Anne MD [address] [place], [place] [phone] Med Refill Social History Tobacco Use Types Packs/Day Years [...] AM EDT documented as of this encounter Miscellaneous Notes * Telephone Encounter - Snehal You RN - 06/16/2023 9:09 AM EST Telephone call placed to [facility] lab who stated unable to add on labs because it's the wrong tube. She would have to have these drawn. Would you like me to order labs and advise pt come in or do you want to wait for next appt? * Telephone Encounter - Snehal You RN - 06/16/2023 9:06 AM EST ----- Message from Lilliam Singh MD sent at 06/15/2023 5:52 PM EST ----- Please can you add on to recent labs iron panel Thanks documented in this encounter Plan of Treatment Not on file documented as of this encounter Visit Diagnoses Not on filedocumented in this encounter Care Teams Industrial Trainer Relationship Specialty Start Date End Date Radha Anne MD [address] [place] [address] PCP - General Family Medicine 03/01/13 Lynn Fisher Oleomargarine MakerMold Insert Changer 01/07/23 Lynn Fisher Oleomargarine MakerMold Insert Changer 08/13/23 Lynn Fisher Oleomargarine MakerMold Insert Changer 08/29/24 documented as of this encounter
--- OUTSIDE RECORDS SUMMARY | 2024-09-06 13:44 | XMS_ITS | Encounter Summary ---
Author Organization [facility] Address [address] [place] [address] [address] [place] [address] Care Team Providers Care Pole Setter Name Role Phone Radha Anne MD Primary Care Provider [phone] Encounter Details Date Type Department Care Team (Late st Contact Info) Description 04/09/2022 Orders Only [facility] MEDICINE [address] [place], [place] [phone] Radha Anne MD [address] [place] [address] Social History Tobacco Use Types Packs/Day Years Used Date Smoking Tobacco: Never Assessed Comments Unknown Sex and Gender Information Value [...] on filedocumented in this encounter Care Teams Pole Setter Relationship Specialty Start Date End Date Radha Anne MD [address] [place] [address] PCP - General Family Medicine 03/01/13 Lynn Fisher Client Relation SpecialistSenior Premium Auditor 01/07/23 Lynn Fisher Client Relation SpecialistSenior Premium Auditor 08/13/23 Lynn Fisher Client Relation SpecialistSenior Premium Auditor 08/29/24 documented as of this encounter
--- OUTSIDE RECORDS SUMMARY | 2024-09-06 13:44 | XMS_ITS | Encounter Summary ---
Author Organization [email or web address] Address [address] [facility] [address]t [place] [address] Care Team Providers Care Knife Cutter Name Role Phone Radha Anne MD Primary Care Provider [phone] Encounter Details Date Type Department Care Team (Latest Contact Info) Description 09/06/2024 Travel Social History Tobacco Use Types Packs/Day Years [...] on filedocumented in this encounter Care Teams Knife Cutter Relationship Specialty Start Date End Date Radha Anne MD [address] [place] [id number] PCP - General Family Medicine 03/01/13 Lynn Fisher Oyster ShipperWeb Design Specialist 01/07/23 Lynn Fisher Oyster ShipperWeb Design Specialist 08/13/23 Lynn Fisher Oyster ShipperWeb Design Specialist 08/29/24 documented as of this encounter
--- OUTSIDE RECORDS SUMMARY | 2024-09-06 13:44 | XMS_ITS | Encounter Summary ---
Author Organization [employer] Address [address] [place] [address] 7 [place] [address] Care Team Providers Care Court Security Officer Name Role Phone Radha Anne MD Primary Care Provider [phone] Reason for Visit * Reason Comments Med Refill Encounter Details Date Type Department Care Team ([facility] st Contact Info) Description 03/02/2023 Refill [facility] MEDICINE [address] [place], [place] [phone] Radha Anne MD 230 [place], [place] [phone] Moderate persistent asthma without complication Social History Tobacco Use Types Packs/Day Years Used Date Smoking Tobacco: Never Smokeless Tobacco: Never Alcohol Use Standard Drinks/Week Comments Not Currently 0 (1 standard drink = 0.6 oz pur e alcohol) PHQ-2 Answer Date Recorded Patient Health Questionnaire-2 Score 0 09/03/2022 Housing Stability Answer Date Recorded What is your housing situation today? I have derian barrientos 02/03/[address] you li ve. Do you have problems with any of the following? None of the above 02/03/2023 Food Insecurity Answer Date Recorded Within the [...] shut off services in your home? No 02/03/2023 Depression Answer Date Recorded Patient Health Questionnaire-2 [...] as of this encounter Visit Diagnoses Diagnosis Moderate persistent asthma without complication documented in this encounter Care Teams Court Security Officer Relationship Specialty Start Date End Date Radha Anne MD [address] [place] [phone] PCP - General Family Medicine 03/01/13 Lynn Fisher Lithograph Press Operator TinwareTransmission Repairer 01/07/23 Lynn Fisher Lithograph Press Operator TinwareTransmission Repairer 08/13/23 Lynn Fisher Lithograph Press Operator TinwareTransmission Repairer 08/29/24 documented as of this encounter
--- OUTSIDE RECORDS SUMMARY | 2024-09-06 13:44 | XMS_ITS | Encounter Summary ---
Author Organization [employer] Address [address] [place] [address] 7 [place] [address] Care Team Providers Care Merchandising Assistant Name Role Phone Radha Anne MD Primary Care Provider [phone] Reason for Visit * Reason Onset Date Comments FYI 10/30/2023 Encounter Details Date Type Department Care Team ([facility] st Contact Info) Description 10/30/2023 Telephone [facility] MEDICINE 230 [place], [place] [phone] Radha Anne MD [address] [place], [place] [phone] FYI Social History Tobacco Use Types Packs/Day Years [...] encounter Miscellaneous Notes * Telephone Encounter - Kranthi Henley - 10/30/2023 12:20 PM EDT Tc from [facility] the [facility] from [facility] calling to inform the provider was unable to do skill nursing on 10/29 due to the patient being in [place] documented in this encounter Plan of Treatment Not on file documented as of this encounter Visit Diagnoses Not on filedocumented in this encounter Care Teams Merchandising Assistant Relationship Specialty Start Date End Date Radha Anne MD [address] [place] [address] PCP - General Family Medicine 03/01/13 Lynn Fisher Bottle SelectorDe Icer Kit Assembler 01/07/23 Lynn Fisher Bottle SelectorDe Icer Kit Assembler 08/13/23 Lynn Fisher Bottle SelectorDe Icer Kit Assembler 08/29/24 documented as of this encounter
--- OUTSIDE RECORDS SUMMARY | 2024-09-06 13:44 | XMS_ITS | Encounter Summary ---
Author Organization [employer] Address [address] [place] [address] 7 [place] [address] Care Team Providers Care Glazier Helper Name Role Phone Radha Anne MD Primary Care Provider [phone] Reason for Visit * Reason Comments Med Refill Encounter Details Date Type Department Care Team ([facility] st Contact Info) Description 02/05/2023 Refill [facility] MEDICINE [address] [place], [place] [phone] Saadia Mendez, ANP [address] [place], [place] [phone] Social History Tobacco Use Types Packs/Day Years [...] on filedocumented in this encounter Care Teams Glazier Helper Relationship Specialty Start Date End Date Radha Anne MD [address] [place] [id number] PCP - General Family Medicine 03/01/13 Lynn Fisher Wet Crown Blocking OperatorDirector Dermatology 01/07/23 Lynn Fisher Wet Crown Blocking OperatorDirector Dermatology 08/13/23 Lynn Fisher Wet Crown Blocking OperatorDirector Dermatology 08/29/24 documented as of this encounter
--- OUTSIDE RECORDS SUMMARY | 2024-09-06 13:44 | XMS_ITS | Encounter Summary ---
Author Organization [email or web address] Address [address] [place] [address] 7 [place] [address] Care Team Providers Care C Software Developer Name Role Phone Radha Anne MD Primary Care Provider [phone] Reason for Visit * Reason Onset Date Comments Appointment Request 07/22/2024 Encounter Details Date Type Department Care Team ([facility] st Contact Info) Description 07/22/2024 Telephone [facility] MEDICINE 230 [place], [place] [phone] Radha Anne MD 230 [place], [place] [phone] Appointment Request Social History Tobacco Use Types Packs/Day Years [...] encounter Miscellaneous Notes * Telephone Encounter - Zuri Aguilar - 08/03/2024 2:25 PM EDT Tc from pt requiting office visit. Pt denied any concern. Contact pt at [phone](Latvian) * Telephone Encounter - Antoni Worthington - 07/22/2024 2:15 PM EDT Tc from pt requesting to r/s appt from 07/18/24. Contact pt at [phone] documented in this encounter Plan of Treatment Not on file documented as of this encounter Visit Diagnoses Not on filedocumented in this encounter Care Teams C Software Developer Relationship Specialty Start Date End Date Radha Anne MD [address] [place] [phone] PCP - General Family Medicine 03/01/13 Lynn Fisher Optical DispenserMedical Technologist 01/07/23 Lynn Fisher Optical DispenserMedical Technologist 08/13/23 Lynn Fisher Optical DispenserMedical Technologist 08/29/24 documented as of this encounter
--- OUTSIDE RECORDS SUMMARY | 2024-09-06 13:44 | XMS_ITS | Encounter Summary ---
Author Organization [employer] Address [address] [place] [address] 7 [place] [address] Care Team Providers Care Butter Liquefier Name Role Phone Radha Anne MD Primary Care Provider [phone] Reason for Visit * Reason Onset Date Comments FYI 10/20/2023 Encounter Details Date Type Department Care Team ([facility] st Contact Info) Description 10/20/2023 Telephone [facility] MEDICINE 230 [place], [place] [phone] Radha Anne MD 230 [place], [place] [phone] FYI Social History Tobacco Use Types Packs/Day [...] encounter Miscellaneous Notes * Telephone Encounter - Kalli Terry - 10/20/2023 3:05 PM EDT Tc from [place] ([place] calling to advised provider pt missed home visit today. documented in this encounter Plan of Treatment Not on file documented as of this encounter Visit Diagnoses Not on filedocumented in this encounter Care Teams Butter Liquefier Relationship Specialty Start Date End Date Radha Anne MD [address] [place] [phone] PCP - General Family Medicine 03/01/13 Lynn Fisher Vending TechnicianNsh Teacher 01/07/23 yLnn Fisher Vending TechnicianNsh Teacher 08/13/23 Lynn Fisher Vending TechnicianNsh Teacher 08/29/24 documented as of this encounter
--- OUTSIDE RECORDS SUMMARY | 2024-09-06 13:44 | XMS_ITS | Clinical Summary ---
Author Organization [employer] Address [address] [place] [address] [address] [place] [address] Care Team Providers Care Silviculture Teacher Name Role Phone Radha Anne MD Primary Care Provider [phone] Allergies Active Allergy Reactions Criticality Noted Date Comments Codeine Nausea Only,Vomiting 03/14/2014 Other reaction(s): Unknown Rx- listed on H&P Other reaction(s): unknown,per PCP note Other Reaction(s): Unknown Rx- listed on H&P Ibuprofen Itching,Rash High 06/16/2022 Iodine 06/16/2022 Other reaction(s): gastritis,acidity Other reaction(s): Other (see comments) Other reaction(s): gastritis,acidity Other reaction(s): gastritis,acidity Lidocaine Rash Low 06/16/2022 Other reaction(s): Blister Other reaction(s): Blister Oxycodone Nausea Only,Vomiting 03/14/2014 Got upset stomach but able to tolerate low doses. Got upset stomach but able to tolerate low doses. Penicillin V Hives Low 06/29/2023 Allergy Penicillins Hives,Rash Low 05/12/2012 Amoxicillin challenge during hospitalization in Mar 2023. No reaction Tramadol Nausea Only,Vomiting 03/14/2014 Medications Continuous Blood Gluc Billet Straightener ([place] Brooke 2 [place]) device USE DIRECTED TO CHECK BLOOD SUGAR 1 each 10/16/19 23 Active ipratropium-albu terol (Duo-Neb) 0.5-2.5 mg/3 mL nebulizer solutionIndicati ons:Moderate persistent asthma without complication USE 1 AMPULE USING A NEBULIZER FOUR TIMES DAILY NEEDED FOR SHORTNESS OF BREATH 90 mL 1 11/27/19 23 Active glucose blood (FREESTYLE LITE) test stripIndications :Diabetic peripheral neuropathy (CMS/HCC) TEST BLOOD SUGAR 5 TIMES PER DAY 200 strip 04/30/19 24 Active TRUEplus Lancets 33G miscIndications: Diabetic peripheral neuropathy (CMS/HCC) TEST BLOOD SUGAR 5 TIMES PER DAY 200 each 04/30/19 24 Active Alcohol Swabs (SM Alcohol Prep) 70 % pads USE FOUR TIMES DAILY 200 each 05/08/19 24 Active atorvastatin (Lipitor) 20 MG tablet Take 20 mg by mouth in the morning. 04/28/19 24 Active albuterol (2.5 MG/3ML) 0.083% nebulizer solution INHALE 1 AMPULE USING A NEBULIZER FOUR TIMES DAILY NEEDED FOR SHORTNESS OF BREATH. 90 mL 1 05/28/19 24 Active predniSONE (Deltasone) 20 MG tablet Take 2 tablets by mouth Once per day. Active apixaban (Eliquis) 5 MG tablet Take 1 tablet by mouth every 12 (twelve) hours. 10/01/19 24 Active Docusate Sodium (DSS) 100 MG capsule Take 100 mg by mouth if needed in the morning and at bedtime. 09/30/19 24 Active mycophenolate (Cellcept) 250 MG capsule Take 4 capsules by mouth every 12 (twelve) hours. 10/30/19 24 Active Patiromer Sorbitex Calcium 8.4 g pack Take 8.4 g by mouth Once per day. 10/29/19 24 Active sennosides (Senokot) 8.6 MG tablet Take 17.2 mg by mouth if needed each day. 09/30/19 24 Active simethicone (Mylicon) 80 MG chewable tablet Chew 80 mg every 6 (six) hours if needed. 10/22/19 24 Active tacrolimus (Prograf) 1 MG capsule Take 14 mg by mouth every 12 (twelve) hours. Active ergocalciferol (Vitamin D-2) 1.25 MG (00102 UT) capsule Take 1 capsule by mouth 1 (one) time per week. Active acyclovir (Zovirax) 400 MG tablet Take 2 tablets by mouth 2 times daily. Active calcium carbonate (Tums) 500 MG chewable tablet Chew 1 tablet 3 times daily. Active levothyroxine (Synthroid) 50 MCG tabletIndication s:Hypothyroidism , unspecified type Take 1 tablet (50 mcg) by mouth before breakfast. 30 min b/f meds or food 90 tablet 3 01/18/20 24 2024 Active Multiple Vitamin (Quintabs) tablet Take 1 tablet by mouth Once per day. 90 tablet 01/18/20 Active Pentips 32G X 4 MM misc USE TO INJECT Toujeo AND HUMALOG KWIKPENS 100 each 01/19/20 Active Continuous Glucose Sensor (FreeStyle Brooke 2 Sensor) miscIndications: Type 2 diabetes mellitus with hyperglycemia (CMS/[facility]ER[facility]) USE DIRECTED EVERY DAY FOR TEST BLOOD SUGAR 2 each 01/19/20 Active insulin glargine (Toujeo Max SoloStar) 300 UNIT/ML injectionIndicat ions:Type 2 diabetes mellitus with hyperglycemia, with long-term current use of insulin ([facility]) Inject 16 Units under the skin in the morning. 6 mL 02/07/20 Active insulin lispro (HumaLOG) 100 UNIT/ML injection 8 units three times a day before meals and correction scale (150-199 mg/dl 2 units, 200-249, 4 units; 250-299, 6 units; 300-349, 8 units; 350-399, 10 units, call md if > 400 mg/dl) 15 mL 02/07/20 24 Active albuterol (Ventolin HFA) 108 (90 Base) MCG/ACT inhalerIndicatio ns:Moderate persistent asthma without complication INHALE 2 PUFFS BY MOUTH EVERY 6 HOURS 18 g 3 03/07/20 24 Active Mometasone Furoate (Asmanex HFA) 200 MCG/ACT aerosol 1 puff by mouth twice daily 13 g 11 04/05/20 24 Active sulfamethoxazole -trimethoprim (Bactrim DS) 800-160 MG tablet Take 1 tablet by mouth 2 times daily. 09/17/19 24 Active pantoprazole (ProtoNix) 40 MG EC tablet Take 1 tablet (40 mg) by mouth Once per day. 90 tablet 3 09/07/19 25 Active gabapentin (Neurontin) 300 MG capsule Take 1 tablet by mouth once at bed time. May increase to twice daily in 1 week. 180 capsule 3 09/07/19 25 Active NIFEdipine XL (Procardia XL) 30 MG 24 hr tablet Take 1 tablet (30 mg) by mouth Once per day. 90 tablet 3 09/07/19 25 2025 Active furosemide (Lasix) 20 MG tablet Take 1 tablet (20 mg) by mouth Once per day. 30 tablet 1 09/07/19 25 2025 Active NIFEdipine XL (Procardia XL) 30 MG 24 hr tablet Take 30 mg by mouth Once per day. 11/26/19 24 2024 Discontinued(R eorder (will not trigger notification to Pharmacy)) gabapentin (Neurontin) 300 MG capsule Take 1 tablet by mouth once at bed time. May increase to twice daily in 1 week. 60 capsule 11 02/02/20 24 2024 Discontinued(R eorder (will not trigger notification to Pharmacy)) pantoprazole (ProtoNix) 40 MG EC tablet TAKE 1 TABLET BY MOUTH EVERY DAY 90 tablet 06/16/19 25 2024 Discontinued(R eorder (will not trigger notification to Pharmacy)) Active Problems Patient Care Coordination No te Formatting of this note migh t be different from the original. C3/CM Carmella Roldan RN Problem Noted Date Diagnosed Date Hyperkalemia 02/07/2024 Assessment & Plan (09/06/2024 9:09 AM EDT): - [facility] hospitalization 10/28-11/01/23. Dx hyperkalemia and anemia. Liver transplant team attributed it to TMP/SMX. Product Trainer suggested chronic spironlactone use (off after transplant). Received Lokelma, calcium gluconate, D50, and IVF inpatient. Discharged with Valtassa. Received 1 unit PRBC. - currently still on patiromer; continue Assessment & Plan (02/07/2024 7:42 AM EDT): - [facility] hospitalization 10/28-11/01/23. Dx hyperkalemia and anemia. Liver transplant team attributed it to TMP/SMX. Product Trainer suggested chronic spironlactone use (off after transplant). Received Lokelma, calcium gluconate, D50, and IVF inpatient. Discharged with Valtassa. Received 1 unit PRBC. - currently still on patiromer; continue Liver transplant complication 02/07/2024 Overview (02/07/2024): - diseased donor transplant on 09/24/23 at [facility] - short-term complication: DULCE / ATN, portal vein thrombosis - Hospitalized in [facility] due to elevated LFT on 11/12/23. Concern for graft rejection vs. obstruction. 11/12/24 ERCP - a single slight biliary stricture in the p ost-transplant anastomosis. The stricture is pos-surgical. - s/p biliary sphincterotomy - one 10 mm x 8 mm wallflex covered metal stent in the common bile duct 11/13/23 Liver biopsy - moderately severe acute T-cell mediated rejection, moderate portal inflammation, marked interlobular bile duct injury - possible acute antibody mediated rejection - possible reperfusion injury, biliary stricture/obstruction/ischemic cholangiopathy 11/17/23 ERCP - one visibly patent stent from the common hepatic duct seen in the major papilla - prior biliary sphincterotomy open - single moderate biliary stricture in the lower third of the main bile duct - two plastic biliary stents placed into the common hepatic duct. Bilateral leg edema 12/08/2023 Assessment & Plan (09/06/2024 12:30 PM EDT): - Currently prescribed nifedipine which may be contributing to edema - Recommend low sodium diet - Will prescribe short course of furosemide Assessment & Plan (12/08/2023 4:24 PM EDT): Likely related to high dose of PRD for transplant rejection. She also has sxs venous insufficiency so she'll wear compression stockings (she has them at home). Consider DC Nifedipine due to potential side effect from CCB and change to a different medication.. Advised re low slat diet. Liver transplant recipient 10/19/2023 Assessment & Plan (09/06/2024 9:08 AM EDT): - following with Dr. Verma, [facility] locally, and Dr. Ruiz at [facility] GI / hepatology / transplant - previously receiving paracentesis q2wk until she had TIPS on 05/29/23, last paracentesis on 05/29/23 5L removed - s/p TIPS on 05/29/23 - s/p diseased donor liver transplant on 09/24/23. - post-op complications: DULCE due to ATN, followed by pack puller; portal vein thrombosis, started on apixaban. Immunosuppressant [...] 40 mg daily initially, but stopped - Assessment & Plan (02/07/2024 7:40 AM EDT): - following with Dr. Verma, [facility] locally, and Dr. Ruiz at [facility] GI / hepatology / transplant - previously receiving paracentesis q2wk until she had TIPS on 05/29/23, last paracentesis on 05/29/23 5L removed - s/p TIPS on 05/29/23 - s/p diseased donor liver transplant on 09/24/23. - post-op complications: DULCE due to ATN, followed by pack puller; portal vein thrombosis, started on apixaban. Immunosuppressant [...] 40 mg daily initially, but stopped - Long-term use of immunosuppressant medication Assessment & Plan (09/06/2024 9:05 AM EDT): - prednisone is being tapered currently, down to 10 mg - tacrolimus and mycophenolate dosages and levels are managed by transplant team Assessment & Plan (02/07/2024 7:30 AM EDT): - prednisone is being tapered currently, down to 10 mg - tacrolimus and mycophenolate dosages and levels are managed by transplant team Current chronic use of systemic steroids 024 Current chronic use of inhaled steroid Portal vein thrombosis 10/19/2023 Assessment & Plan (09/06/2024 9:08 AM EDT): - continue apixaban Assessment & Plan (02/07/2024 7:28 AM EDT): - continue apixaban Protein calorie malnutrition 08/21/2023 Assessment & Plan (08/21/2023 6:16 AM EDT): - written a prescription for Boost glucose control (Ensure is not approved) - check the status of Boost delivery Hepatic encephalopathy 06/29/2023 Assessment & Plan (08/21/2023 5:42 AM EDT): - 5 admissions for hepatic encephalopathy in the 3 mo period May 2023 to current - continue lactulose 20 mg 3 x /day and rifaximin 550 mg bid - continue current medical management / prevention Assessment & Plan (06/29/2023 6:14 PM EDT): - 3 admissions for hepatic encephalopathy in May 2023 - most recently prescribed lactulose 20 mg 4 x /day and rifaximin 550 mg bid - continue current medical management / prevention Nutritional deficiency 06/29/2023 Assessment & Plan (06/29/2023 8:48 PM EDT): - patient is currently buying and drinking Ensure - will check if patient can have Glucerna or Boost Glucose Control with high protein content Stage 3a chronic kidney disease 06/29/2023 Assessment & Plan (09/06/2024 9:09 AM EDT): - most recent DULCE in July 2023 - likely due to renal hypoperfusion (dehydration / anemia / diuretics / third- spacing / hypotension) - avoid nephrotoxic drugs Assessment & Plan (02/02/2024 4:26 PM EDT): - most recent DULCE in July 2023 - likely due to renal hypoperfusion (dehydration / anemia / diuretics / third- spacing / hypotension) - avoid nephrotoxic drugs Assessment & Plan (08/21/2023 6:13 AM EDT): - most recent DULCE in July 2023 - likely due to renal hypoperfusion (dehydration / anemia / diuretics / third- spacing / hypotension) - avoid nephrotoxic drugs Assessment & Plan (06/29/2023 8:51 PM EDT): - in a setting of cirrhosis - likely due to renal hypoperfusion (dehydration / anemia / diuretics) - avoid nephrotoxic drugs Hypoalbuminemia 06/29/2023 Assessment & Plan (08/21/2023 6:20 AM EDT): - received albumin in July 2023 Assessment & Plan (06/29/2023 8:50 PM EDT): - due to cirrhosis - will prescribe nutritional supplement with higher protein content Sarcopenia 06/29/2023 Assessment & Plan (02/02/2024 4:26 PM EDT): - improve nutritional status - referred for home PT via visiting nurse; patient has not been home very much for last few months due to frequent hospitalization - once her conditions is stabilized, resume home PT - improve nutritional intake and balance Assessment & Plan (08/18/2023 1:18 PM EDT): - improve nutritional status - referred for home PT via visiting nurse; patient has not been home very much for last few months due to frequent hospitalization - once her conditions is stabilized, resume home PT - improve nutritional intake and balance Assessment & Plan (06/29/2023 8:59 PM EDT): - improve nutritional status - referred for home PT via visiting nurse; patient has not been home very much for last few months due to frequent hospitalization - once her conditions is stabilized, resume home PT - improve nutritional intake and balance History of acute respiratory distress syndrome ( ARDS) 06/25/2023 Coagulopathy 06/25/2023 Diabetic nephropathy associa stephanie with type 2 diabetes mellitus 06/25/2023 Hypomagnesemia 06/25/2023 terminal superintendent (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 insulin 06/25/2023 Non-toxic multinodular goiter 06/25/2023 Numbness and tingling in both hands 06/25/2023 Thrombocytopenia 06/25/2023 Assessment & Plan (09/06/2024 9:06 AM EDT): - following with [facility]ematology, last seen in May 2023 - due to cirrhosis / hypersplenism - Continue monitoring periodically - Recommended to provide platelet transfusion prior to procedure or thrombopoietin stimulating factor if indicated Assessment & Plan (08/21/2023 6:19 AM EDT): - following with [facility]emat[facility], last seen in May 2023 - due to cirrhosis / hypersplenism - Continue monitoring periodically - Recommended to provide platelet transfusion prior to procedure or thrombopoietin stimulating factor if indicated Assessment & Plan (06/29/2023 6:27 PM EDT): - following with [facility]emat[facility], last seen in May 2023 - attributed to cirrhosis / hypersplenism - Continue monitoring periodically - Recommended to provide platelet transfusion prior to procedure or thrombopoietin stimulating factor if indicated Anemia 06/16/2023 Assessment & Plan (06/29/2023 8:44 PM EDT): - following with Hematology, [facility], last seen in May 2023 - due to variceal bleeding, cirrhosis, and hypersplenism, and chronic disease - continue ferrous gulonate - recommended to have periodic transfusion - patient is having transfusion at least 1-2 units PRBC every 2 weeks in last few months - will request periodic transfusion if this frequency continues - check lab today Assessment & Plan (06/16/2023 2:46 PM EST): -Will do labs today to monitor CBC and chem and will have labs to be faxed to [facility] -continue iron daily for now -pt has hx of chronic anemia w baseline hb around 8 ,last iron and ferritin labs were wnl -continue to f w GI ,there was no concern for GIB at recent hospitalization -has apt already schedule w PCP 06/29/2023 S/P TIPS (transjugular intrahepatic portosystemi c shunt) 05/29/2023 Overview (06/29/2023): Last Assessment & Plan: Patient's status post elective TIPS procedure today. 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 Patient received 2 g of ceftriaxone during procedure. 5 L of intra-abdominal ascites was also removed. Pre-TIPS pressures of the portal vein was approximately 29, and portosystemic gradient was 18. An 8 to 10 mm TIPS shunt was placed. Post tips pressures were 23 with a portosystemic gradient of 7. Hemoglobin prior to procedure was 7.4, repeat hemoglobin after procedure was 6.6. Received 1 unit pRBC with adequate response. There is high risk of transfusion for this patient given previous transfusion reaction and lung injury. -Obtain CT abdomen/pelvis if hemodynamically unstable or patient bleeds -Repeat H/h q12h -If no further bleeding post transfusion, patient may be stable to discharge tomorrow Assessment & Plan (08/21/2023 6:19 AM EDT): - last US in July 2023 showing patent TIPS Cirrhosis 05/29/2023 Assessment & Plan (02/07/2024 7:36 AM EDT): - following with Dr. Verma, [facility] locally, and Dr. Ruiz at [facility] GI / hepatology / transplant - s/p diseased liver transplant on 09/24/23 - frequent hospitalizations for hepatic encephalopathy prior to transplant - previously receiving paracentesis q2wk until she had TIPS on 05/29/23, last paracentesis on 05/29/23 5L removed - s/p TIPS on 05/29/23 - last liver US in July 2023 - last EGD in July 2023 - MELD 3.0: 18 at 08/13/2023 - MELD-Na: 17 at 08/13/2023 Assessment & Plan (08/21/2023 6:11 AM EDT): - following with Dr. Verma, [facility] locally, and Dr. Ruiz at [facility] GI / hepatology / transplant - previously receiving paracentesis q2wk until she had TIPS on 05/29/23, last paracentesis on 05/29/23 5L removed - s/p TIPS on 05/29/23 - last liver US in July 2023 - last EGD in July 2023 - MELD 3.0 score 15 on 05/31/23 - MELD Na score 11 on 05/31/23 - MELD 3.0: 18 at 08/13/2023 - MELD-Na: 17 at 08/13/2023 - continue working on lifestyle modifications , medication adherence, and education on disease process - emphasized the importance of following specialists' recommendations - still on transplant wait list Ascites 03/16/2023 Assessment & Plan (08/21/2023 6:13 AM EDT): - previously receiving paracentesis every 2 wks - last paracentesis on 05/29/23 when patient had TIPS - hospitalized for volume overload in July 2023 - diuresed - received albumin - improve nutritional status and continue diuretics Assessment & Plan (06/29/2023 6:15 PM EDT): - previously receiving paracentesis every 2 wks - last paracentesis on 05/29/23 when patient had TIPS - check US Assessment & Plan (03/29/2023 6:14 PM EST): - currently receiving paracentesis every 2 wks - continue torsemide Esophageal varices 03/16/2023 Assessment & Plan (08/21/2023 5:49 AM EDT): - s/p banding in Apr 2023 - s/p EGD in June 2023; no active bleeding - next EGD in October 2023 - continue omeprazole - continue sucralfate - carvedilol was discontinued when patient had TIPS because there was no varices - follow up with GI Assessment & Plan (06/29/2023 6:24 PM EDT): - s/p banding in Apr 2023 - next EGD in October 2023 - continue omeprazole - continue sucralfate - carvedilol was discontinued when patient had TIPS because there was no varices - follow up with GI Assessment & Plan (05/28/2023 6:35 AM EST): - s/p banding in Apr 2023 - follow up with GI Cholelithiasis 03/16/2023 Health care maintenance 09/03/2022 Assessment & Plan (06/16/2023 2:42 PM EST): -COVID 19 last booster and Flu vaccine today Assessment & Plan (09/03/2022 4:56 PM EDT): Transplant clinic request that I send MM x screening x pt in order to complete liver transplant evaluation -sent today x it ----MA called and helped pt scheduling apt x 10/13/[address] [facility] at [id number] called pt and give information of her apt -also help pt scheduling apt w her PCP x 10/02/2022 x annual evaluation Hypothyroidism 07/12/2022 Overview (05/11/2023): Last Assessment & Plan: -Continue Levothyroxine 50 mcg Daily Assessment & Plan (09/06/2024 9:06 AM EDT): - current replacement: levothyroxine 75 mcg daily - last TSH 4.6 on 08/06/23. During last hospitalization, levothyroxine was increased from 50 to 75 mcg - continue current replacement - will check her TSH at the end of August Assessment & Plan (02/02/2024 4:28 PM EDT): - current replacement: levothyroxine 75 mcg daily - last TSH 4.6 on 08/06/23. During last hospitalization, levothyroxine was increased from 50 to 75 mcg - continue current replacement - will check her TSH at the end of August Assessment & Plan (08/21/2023 6:18 AM EDT): - current replacement: levothyroxine 75 mcg daily - last TSH 4.6 on 08/06/23. During last hospitalization, levothyroxine was increased from 50 to 75 mcg - continue current replacement - will check her TSH at the end of August Assessment & Plan (05/28/2023 6:37 AM EST): - current replacement: levothyroxine 50 mcg daily - last TSH 3.06 on 05/13/23 - continue current replacement Assessment & Plan (03/29/2023 6:20 PM EST): - current replacement: levothyroxine 50 mcg daily - last TSH > 1 year ago - check thyroid function test Assessment & Plan (09/03/2022 4:47 PM EDT): Reports stopped taking levothyroxine before -thinks maybe because run out? States resumed already x last 4 weeks -will repeat today TSH and T4 -continued levothyroxine -states dont need any refill Generalized weakness 07/12/2022 Overview (05/11/2023): Last Assessment & Plan: Patient is deconditioned from a prolonged hospital stay at [facility] and feels unsteady on her feet. She was able to sit in chair with RN and PT support, and was ambulating short distances with walker with minimal support /. - PT recommending inpatient rehab upon d/c. - Encourage OOB Assessment & Plan (03/29/2023 6:17 PM EST): - physical deconditioning and chronic disease - request home PT/OT Metabolic dysfunction-associated steatohepatitis (MASH) 09/05/2021 Overview (05/11/2023): Last Assessment & Plan: Patient is a 47-year-old woman with CROCKETT cirrhosis ascites and since resolved hepatic encephalopathy. She was admitted to [facility] for 2 months. She initially presented with symptomatic ascites in the setting of Crockett complicated by hypotension status post 9 L paracentesis. She had required a blood transfusioncomplicated by transfusion related lung injury, requiring intubation and a 2 week ICU admission. Her hospital course was also complicated by an DULCE she was also treated for MSSA bacteremia (treated with IV Ancef followed by Levaquin) She was transferred to [facility] for liver transplant evaluation. Her MELD score BUSINESS INTELLIGENCE DIRECTOR was 22. Exam on admission significant for abdominal distention 2/2 ascites and scleral icterus. Exam negative for asterixis or confusion. Underwent 4x paracentesis while at [place] for symptomatic ascites draining as much as 9 L of ascitic fluid at one time. Pt had diagnostic and therapeutic paracentesis 07/14 that drained 5,760cc of yellow fluid, without evidence of SBP (PMN <250). Was treated with 62.5 g of albumin after the paracentesis per protocol. Diuretics decreased 07/21 in the setting of hyponatremia (134) and elevated creatinine to 1.21. Pt weighed 120 kg on admission (07/12), weighs 101 kg on 07/22. Patient has been receiving a paracentesis every two weeks for the last 4 months at [facility]. Received 50 g IV Albumin 25% on 07/21 given elevation in Scr and low serum albumin. Liver Transplant Workup: -CMV positive, EBV positive -Hep A reactive -Non-immune to Hep B. Received Hep B vaccine on 07/15, should receive next Hep B vaccine in 1 - 6 months in Liver Transplant Clinic. -Non-immune to mumps -Last colonoscopy completed last year by Dr. Verma at [facility] 10/08/21, see report below. He follows with Dr. Verma as an outpatient. - Last mammogram completed 11/15/2015 at [facility] BI-RADS 2: Benign. requires UTD screening - Last PAP smear 05/30/2020: atypical eiptheial cell abormailities, atypical squamous cells of undetermined significance (ASC-US) HPV RNA E6/E7 negative. Prior Pap smear 09/06/2012, negative for intraepithelial lesion or malignancy. -CT 3 phase of liver completed 07/24/22: cirrhosis with portal hypertension as manifested by ascites, splenomegaly, and portosystemic collaterals. No suspicious focal hepatic lesion. -Last cardiac stress test: unknown. Initially planned for dobutamine stress echo, however unable to obtain adequate windows due to habitus. Converted to a TTE on 4/6/23 with LVEF 60%. Plan for CT coronary ordered 07/24/22 MELD-Na score: 18 at 07/24/2022 4:06 AM MELD score: 15 at 07/24/2022 4:06 AM Calculated from: Serum Creatinine: 0.98 mg/dL (Using min of 1 mg/dL) at 07/24/2022 4:06 AM Serum Sodium: 133 mmol/L at 07/24/2022 4:06 AM Total Bilirubin: 3.3 mg/dL at 07/24/2022 4:06 AM INR(ratio): 1.4 at 07/24/2022 4:06 AM Age: 47 years - Continue Vitamin A 10,000 units - Continue Vitamin D 2,000 unites - Follow up Transplant Work Up Labs - 2 g Na Diet (160 mg/serving), High Protein 1.5 g - Continue midodrine 15 mg TID - Spironolactone to 100 mg daily - Lasix to 40 mg on daily - Continue Miralax 17 g BID - Zinc Supplementation daily - Daily MELD-NA lab - Schedule paracentesis prior to discharge to evaluate paracentesis schedule once outpatient - Encourage daily weights upon discharge Last EGD/colonoscopy was 10/08/2021, done as colon cancer screening/cirrhosis follow-up of esophageal varices. EGD: Esophagus with 1.5 cm nonbleeding ulcer with yellow exudate just above the GE junction likely related to recent band ligation, single grade 1 varix in the distal esophagus which flattened completely on air insufflation, in the stomach there was moderate portal gastropathy without bleeding Colonoscopy without any polyps detected. There is friable and edematous mucosa throughout the colon without ulcers, likely related to hypoalbuminemia and due to cirrhosis. Moderate diverticulosis seen in left colon. Moderate hemorrhoids and retroflexed exam. Recommended repeat EGD in 6 to 12 months, repeat colonoscopy in 1 to 2 years due to fair prep Assessment & Plan (08/21/2023 6:08 AM EDT): - following with Dr. Verma, [facility] locally, and Dr. Ruiz at [facility] / hepatology / transplant - previously receiving paracentesis q2wk until she had TIPS on 05/29/23, last paracentesis on 05/29/23 5L removed - s/p TIPS on 05/29/23 - MELD 3.0 score 15 on 05/31/23 - MELD Na score 11 on 05/31/23 - MELD 3.0: 18 at 08/13/2023 - MELD-Na: 17 at 08/13/2023 - continue working on lifestyle modifications , medication adherence, and education on disease process - emphasized the importance of following specialists' recommendations - still on transplant wait list Assessment & Plan (06/29/2023 6:12 PM EDT): - following with Dr. Verma, [facility] locally, and Dr. Ruiz at [facility] / hepatology / transplant - previously receiving paracentesis q2wk until she had TIPS on 05/29/23, last paracentesis on 05/29/23 5L removed - s/p TIPS on 05/29/23 - MELD 3.0 score 15 on 05/31/23 - MELD Na score 11 on 05/31/23 - current medications: torsemide; eprelenone; - previously on spironolactone, carvedilol, furosemide - still on transplant wait list - follow up with specialists Assessment & Plan (09/03/2022 4:51 PM EDT): decompensated cirrhosis 2/ CROCKETT f with liver transplant clinic at [facility] Reports feeling better after last hospital discharge -I called today her liver transplant clinic and confirmed that they wanted to f labs x pt after her lasix and spironolactone dose were increased 2 weeks ago --they request if ca do here labs -ordered today requested labs : CBC,chem,INR--will have staff to fax results #[id number] Bruce Swan and if relevant abnormalities will call clinic at # [phone] Diabetic peripheral neuropathy 01/26/2017 Assessment & Plan (02/07/2024 7:47 AM EDT): - will start gabapentin with caution for CKD Allergic rhinitis 12/10/2016 Gastroesophageal reflux disease 06/16/2016 Assessment & Plan (06/29/2023 6:22 PM EDT): - continue omeprazole 40 mg daily Carpal tunnel syndrome 02/26/2016 Type 2 diabetes mellitus 08/22/2015 Overview (05/11/2023): Last Assessment & Plan: Home Medications: Glargine 80 units nightly, lispro 26 unit(s) 3 times a day prior to meals Patient has insulin dependent diabetes managed on insulin. Initially on admission, was started on glargine 30 units twice daily, dose reduced from home dose of 80 units at bedtime. Also with 20 units of prandial insulin she is having some episodes of AM hypoglycemia. Insulin adjusted as below. -Glargine 25 units every morning (Dose reduced from prior above) -Lispro 8 units 3 times a day AC (Dose reduced from prior above) -LDSSI Assessment & Plan (09/06/2024 12:25 PM EDT): - A1C 7.9% on 09/06/24, increase from 5.9% on 02/02/24 -occasional prednisone use for asthma exacerbation. -continue basal insulin, Toujeo 16 units daily -continue bolus insulin, Humalog 8 to 10 units with meal -Prescribed Ozempic by human resources psychologist -previously on metformin and dulaglutide Last eye exam: Nov 2023, per patient, obtain last visit note Last foot exam: 08/18/23, toe deformity, neuropathy, seen by investment recovery technician in the past and has diabetic footwear Last microalbumin test: Overdue; Hx microalbuminuria Last lipid profile: 06/29/23 Assessment & Plan (02/07/2024 7:15 AM EDT): - A1C 5.9% on 02/02/24 -occasional prednisone use for asthma exacerbation. -continue basal insulin, Toujeo 16 units daily -continue bolus insulin, Humalog 8 units with meal -previously on metformin and dulaglutide Last eye exam: Nov 2023, per patient, obtain last visit note Last foot exam: 08/18/23, toe deformity, neuropathy, seen by investment recovery technician in the past and has diabetic footwear Last microalbumin test: Overdue; Hx microalbuminuria Last lipid profile: 06/29/23 Assessment & Plan (08/18/2023 1:40 PM EDT): - A1C 5.9% on 05/13/23 -occasional prednisone use for asthma exacerbation. -continue basal insulin, Toujeo 75 units daily -continue bolus insulin 30 units with meal -previously on metformin and dulaglutide Last eye exam: July 2020 Last foot exam: 08/18/23, toe deformity, diabetic footwear Last microalbumin test: lab ordered 03/21/21 UACR 11;03/21/21- Hx microalbuminuria Last lipid profile: 05/13/23 total cholesterol 85; triglyceride 59; HDL 33; LDL 41 Last dental exam: Immunizations: Assessment & Plan (06/29/2023 8:47 PM EDT): - A1C 5.9% on 05/13/23 -occasional prednisone use for asthma exacerbation. -continue basal insulin, Toujeo 75 units daily -continue bolus insulin 25 units with meal -previously on metformin and dulaglutide Last eye exam: July 2020 Last foot exam: 10/24/21, toe deformity, diabetic footwear Last microalbumin test: lab ordered 03/21/21 UACR 11;03/21/21- Hx microalbuminuria Last lipid profile: 05/13/23 total cholesterol 85; triglyceride 59; HDL 33; LDL 41 Last dental exam: Immunizations: Assessment & Plan (05/28/2023 6:45 AM EST): - A1C 5.9% on 05/13/23 -occasional prednisone use for asthma exacerbation. -decrease basal insulin, Toujeo 75 units daily -continue bolus insulin 26 units with meal (needs to confirm) -previously on metformin and dulaglutide Last eye exam: July 2020 Last foot exam: 10/24/21, toe deformity, diabetic footwear Last microalbumin test: lab ordered 03/21/21 UACR 11;03/21/21-11 Hx microalbuminuria Last lipid profile: 05/13/23 total cholesterol 85; triglyceride 59; HDL 33; LDL 41 Last dental exam: Immunizations: Assessment & Plan (03/29/2023 6:07 PM EST): A1C 8.0% today on 02/18/22, improved from 10.2% 10/24/21 -seen by a new human resources psychologist in August 16, 2020 -Usually problem with adherence to SMBG and healthy lifestyle -occasional prednisone use for asthma exacerbation. -continue metformin ER 500mg bid, and titrate up as tolerated -increased trulicity 1.5 mg weekly -continue toujeo 80 units daily Last eye exam: July 2020 Last foot exam: 10/24/21, toe deformity, diabetic footwear Last microalbumin test: lab ordered 03/21/21 UACR 11;03/21/21-11 Hx microalbuminuria Last lipid profile: 03/21/2021 TC 123; TG 119; HDL 37; LDL 65 Last dental exam: Immunizations: Assessment & Plan (09/03/2022 4:46 PM EDT): Pt following with human resources psychologist x her DM2 -recently insulin was decreased at hospital to 25 u HS of basal insuline and continued on rapid insulin TID ,also on trulicity -here today hb1AC is 5.8 and Cbg is 245 -advised to monitor cbgs -continue care w human resources psychologist -states will call her human resources psychologist's office to check when has her next visit -reports that dont need any med refill today Degeneration of lumbosacral intervertebral disc 04/10/2015 Dyslipidemia 04/10/2015 Assessment & Plan (09/06/2024 9:06 AM EDT): Last lipid profile: 05/13/23 total cholesterol 85; triglyceride 59; HDL 33; LDL 41 Current medication: Atorvastatin 20 mg at bedtime Continue working on lifestyle modification Assessment & Plan (08/18/2023 1:20 PM EDT): Last lipid profile: 05/13/23 total cholesterol 85; triglyceride 59; HDL 33; LDL 41 Current medication: Atorvastatin 20 mg at bedtime Continue working on lifestyle modification Assessment & Plan (06/29/2023 6:20 PM EDT): Last lipid profile: 05/13/23 total cholesterol 85; triglyceride 59; HDL 33; LDL 41 Current medication: Atorvastatin 20 mg at bedtime Continue working on lifestyle modification Assessment & Plan (05/28/2023 6:46 AM EST): Last lipid profile: 05/13/23 total cholesterol 85; triglyceride 59; HDL 33; LDL 41 Current medication: Atorvastatin 20 mg at bedtime Continue working on lifestyle modification Hypertension 04/10/2015 Assessment & Plan (09/06/2024 12:27 PM EDT): -Goal BP < 140/90 per JNC-8 and [...] TIPS, but restarted when she was admitted to [facility], then discontinued again. On and off spironolactone, currently on. Switching back and forth between furosemide and torsemide. Previously on spironolactone for possible acromegaly and androgenic alopecia (human resources psychologist reassured that it is not acromegaly, rather PCOS). No longer on eplerenone. No longer on ACEI/ARB. No longer on spironolactone, furosemide, or torsemide. - Will prescribe furosemide 20 mg daily for short term due to edema Assessment & Plan (02/07/2024 7:28 AM EDT): -Goal BP < 140/90 per JNC-8 and [...] - Currently prescribed medications: nifedipine 30 mg daily - Treatment history: Carvedilol was discontinued after TIPS, but restarted when she was admitted to [facility], then discontinued again. On and off spironolactone, currently on. Switching back and forth between furosemide and torsemide. Previously on spironolactone for possible acromegaly and androgenic alopecia (human resources psychologist reassured that it is not acromegaly, rather PCOS). No longer on eplerenone. No longer on ACEI/ARB. No longer on spironolactone, furosemide, or torsemide. Assessment & Plan (12/08/2023 4:22 PM EDT): Uncontrolled. It could be related to PRD use + transplant rejection Add lasix 20mg in the PM x 5d, in addition to regular 40mg/d Continue Nifedipine and get labs ordered by PCP done today. She may need to restart either carvedilol or spironolactone? Or consider nancy inh. Assessment & Plan (08/21/2023 6:24 AM EDT): -Goal BP < 140/90 per JNC-8 and < 130/80 per ACC/AHA guideline (Treatment threshold >= 130/80 ) - transthoracic echocardiogram in July 2023 showed normal LV systolic function with EF 70% (patient was anemic and hypotensive) - patient has hypotensive episodes, and was restarted on midodrine - questionable medication adherence previously - Continue working on lifestyle modifications - Recommended self-monitoring BP. Patient has not been receiving VNS, will request to resume service to monitor vitals. - Needs frequent med reconciliation due to multiple prescribers. Carvedilol was discontinued after TIPS, but restarted when she was admitted to [facility], then discontinued again. On and off spironolactone, currently on. Switching back and forth between furosemide and torsemide. Previously on spironolactone for possible acromegaly and androgenic alopecia (human resources psychologist reassured that it is not acromegaly, rather PCOS). No longer on eplerenone. No longer on ACEI/ARB. - Continue current medications: spironolactone; torsemide (with midodrine) Assessment & Plan (06/29/2023 6:02 PM EDT): -Goal BP < 140/90 per JNC-8 and < 130/80 per ACC/AHA guideline (Treatment threshold >= 130/80 ) - BP slightly elevated today. Patient has a visiting nurse who has not reported any abnormal BP. Pt had several hypotensive episodes and was taking midodrine in the past - Continue working on lifestyle modifications - Recommended self-monitoring BP. - Needs frequent med reconciliation due to multiple prescribers - Continue current medications -Treatment Hx: spironolactone was discontinued per pt; furosemide has changed to torsemide; no longer on lisinopril; Of note, spironolactone was initiated for possible acromegaly and androgenic alopecia. Evaluated by human resources psychologist, and pt was reassured that she does not have acromegaly. -Follow up in 3-6 mo, sooner if any problem arises Assessment & Plan (05/28/2023 6:36 AM EST): -Goal BP < 140/90 per JNC-8 and < 130/80 per ACC/AHA guideline (Treatment threshold >= ) - BP slightly elevated today. Patient has a visiting nurse who has not reported any abnormal BP. Pt had several hypotensive episodes and was taking midodrine in the past - Continue working on lifestyle modifications - Recommended self-monitoring BP. - Needs frequent med reconciliation due to multiple prescribers - Continue current medications -Treatment Hx: spironolactone was discontinued per pt; furosemide has changed to torsemide; no longer on lisinopril; Of note, spironolactone was initiated for possible acromegaly and androgenic alopecia. Evaluated by human resources psychologist, and pt was reassured that she does not have acromegaly. -Follow up in 3-6 mo, sooner if any problem arises Assessment & Plan (03/29/2023 12:14 PM EST): -Goal BP < 140/90 per JNC-8 and < 130/80 per ACC/AHA guideline (Treatment threshold >= ) - BP at goal. Pt had several hypotensive episodes and was taking midodrine in the past - Continue working on lifestyle modifications - Recommended self-monitoring BP. - Needs frequent med reconciliation due to multiple prescribers - Continue current medications: -Treatment Hx: spironolactone was discontinued per pt; furosemide has changed to torsemide; no longer on lisinopril; Of note, spironolactone was initiated for possible acromegaly and androgenic alopecia. Evaluated by human resources psychologist, and pt was reassured that she does not have acromegaly. -Follow up in 3-6 mo, sooner if any problem arises Assessment & Plan (09/03/2022 5:01 PM EDT): BP here is normal and reports at home BP is bw 120 to 130s Off midrodine already x previous hypotension episodes and also dced lisinopril -continue off BP meds -monitor BP at home AMY (obstructive sleep apnea) 04/10/2015 Assessment & Plan (02/02/2024 4:26 PM EDT): - previously declined CPAP - recently referred back to lawn mower operator (patient was seen by [facility] lawn mower operator in the past, but did not follow up.) Assessment & Plan (08/18/2023 1:15 PM EDT): - previously declined CPAP - recently referred back to lawn mower operator (patient was seen by [facility] lawn mower operator in the past, but did not follow up.) Assessment & Plan (05/28/2023 6:32 AM EST): - previously declined CPAP - recently referred back to lawn mower operator (patient was seen by [facility] lawn mower operator in the past, but did not follow up.) Hyperandrogenism 08/29/2014 Male pattern alopecia 08/29/2014 Lumbosacral neuritis 08/29/2014 PCOS (polycystic ovarian syndrome) 06/27/2013 Assessment & Plan (03/29/2023 6:13 PM EST): - A1C 5.8% on 03/16/23, improved - previously seeing human resources psychologist, but not currently - continue working on lifestyle modifications - continue basal insulin, Toujejo - continue bolus insulin, Humalog - Treatment Hx: Previously taking metformin ER and dulaglutide, which were discontinued during several hospitalizations in [id number]. Last eye exam: July 2020 Last foot exam: 03/16/23, toe deformity, diabetic footwear Last microalbumin test: Hx microalbuminuria Last lipid profile: 03/21/2021 TC 123; TG 119; HDL 37; LDL 65 Last dental exam: Immunizations: Pt has received Hep B and Hep A. Urticaria 07/08/2012 Asthma 04/05/2012 Assessment & Plan (02/02/2024 4:26 PM EDT): - most likely has restrictive component - patient also has AMY, which she was unable to tolerate CPAP - continue mometasone 200 mcg one puff bid ad maintenance - continue albuterol HFA and neb prn - pt prefers to use neb at home because she has a difficulty using inhaler. - referred back to lawn mower operator if she can try new CPAP device and her pulmonary function can be optimized. Assessment & Plan (08/18/2023 1:15 PM EDT): - most likely has restrictive component - patient also has AMY, which she was unable to tolerate CPAP - continue mometasone 200 mcg one puff bid ad maintenance - continue albuterol HFA and neb prn - pt prefers to use neb at home because she has a difficulty using inhaler. - referred back to lawn mower operator if she can try new CPAP device and her pulmonary function can be optimized. Assessment & Plan (06/29/2023 6:01 PM EDT): - most likely has restrictive component - patient also has AMY, which she was unable to tolerate CPAP - continue mometasone 200 mcg one puff bid ad maintenance - continue albuterol HFA and neb prn - pt prefers to use neb at home because she has a difficulty using inhaler. - referred back to lawn mower operator if she can try new CPAP device and her pulmonary function can be optimized. Assessment & Plan (05/28/2023 6:34 AM EST): - most likely has restrictive component - patient also has AMY, which she was unable to tolerate CPAP - continue mometasone 200 mcg one puff bid ad maintenance - continue albuterol HFA and neb prn - pt prefers to use neb at home because she has a difficulty using inhaler. - refer back to lawn mower operator if she can try new CPAP device and her pulmonary function can be optimized. Assessment & Plan (03/29/2023 12:09 PM EST): - previously on fluticasone. Will switch to mometasone 200 mcg one puff bid ad maintenance - continue albuterol HFA and neb prn - pt prefers to use neb at home because she has a difficulty using inhaler. Morbid obesity 04/05/2012 Plantar fasciitis 04/05/2012 Amenorrhea 12/17/2011 Female infertility 12/17/2011 Resolved Problems Problem Noted Date Diagnosed Date Resolved Date Hypotension 08/21/2023 02/07/2024 Assessment & Plan (08/21/2023 6:23 AM EDT): - on diuretics for cirrhosis - continue midodrine Acromegaly 06/25/2023 06/29/2023 Acute hyponatremia 06/25/2023 Acute renal failure superimp osed on chronic kidney disease 06/25/2023 06/29/2023 Acute respiratory failure with hypoxia 06/25/2023 06/29/2023 Elevated TSH 06/25/2023 06/29/2023 MSSA bacteremia 06/25/2023 06/29/2023 Pneumonia 06/25/2023 06/29/2023 Positive blood culture 06/25/202306/28 Decompensated hepatic cirrhosis 06/16/2023 08/21/2023 Assessment & Plan (06/16/2023 2:44 PM EST): Seems after she had TIPS procedure in 05/29/2023 Possible complicated w possible some hemorrhage and Hepatic encephalopathy And possibly pt was tx for SBP ? At recent [facility] stay? From hospital records ,staff has been in communication w pt's software test analyst at [facility]. Per pt and she is slowly improving acting less confuse -advised to continue w continue lactulose 20 grams twice a day to keep 2 to 3 loose Bms per day -continue torsemide 40 mg once daily and eplerenone 25 mg once daily -I tried today calling her [facility] lives specialist but was not able to reach . states pt has apt w specialist in 08/2023 but advised pt to call tomorrow to try to get earlier apt after all these mx hospitalizations and possible complications after TIPS procedure, Also I request nurse staff to call to [facility] office and help w pt as well. -advised to bring all meds w PCP at upcoming apt in 2 weeks to confirm meds but apparently taking all meds -request recent [facility] hospitalization records to Sara -alarm signs and symptoms discussed w pt and Chronic liver disease 03/29/20232023 Assessment & Plan (06/29/2023 8:42 PM EDT): - Followed by [facility], Dr. Verma locally - Followed by [facility], for Liver transplant, Dr. Ruiz - Paracentesis q2wk prior to TIPS - s/p TIPS on 05/29/23 - EGD q6mo, last EGD in Apr 2023 esophageal varices s/p banding - Continue current medications: torsemide; eprelenone; vitamin A - Avoid hepatotoxic drug / substances - Waiting list for transplant Assessment & Plan (03/29/2023 6:16 PM EST): - Followed by [facility] Dr. Luci MEI locally - Followed by [facility], for Liver transplant, Dr. Ruiz - Paracentesis q2wk - Pt will be scheduled for EGD in near future - Continue current treatment plan - Avoid hepatotoxic drug / substances - Waiting list for transplant Anasarca 03/16/2023 06/29/2023 GI bleed 07/12/2022 08/21/2023 Overview (06/29/2023): >>OVERVIEW FOR GI BLEED WRITTEN ON 06/29/2023 2:11 PM BY RADHA ANNE MD Last Assessment & Plan: Patient with multiple decompensations in past of liver cirrhosis. These include variceal bleeding, refractory ascites now status post TIPS (05/29/23) with concern for possible hepatic artery cannulation. Hepatology was consulted today for help with management. MELD 3.0: 13 at 04/23/2023 12:59 PM MELD-Na: 8 at 04/23/2023 12:59 PM Calculated from: Serum Creatinine: 0.97 mg/dL (Using min of 1 mg/dL) at 04/23/2023 12:59 PM Serum Sodium: 134 mmol/L at 04/23/2023 12:59 PM Total Bilirubin: 1.0 mg/dL at 04/23/2023 12:59 PM Serum Albumin: 2.9 g/dL at 04/23/2023 12:59 PM INR(ratio): 1.2 at 04/23/2023 12:59 PM Age at listin years Sex: Female at 04/23/2023 12:59 PM 5L drained for procedure (TIPs, 05/29/23), just had LVP for 11L BUSINESS INTELLIGENCE DIRECTOR. See s/p TIPs problem for more information. Creatinine at baseline function, no concern for hepatorenal syndrome at this time. However given procedure today with associated anemia with hemoglobin below 7, diuretics were initially held. No evidence of GI bleeding at this time, no hematemesis, hematochezia. No suspicion of variceal bleed at this time. No history of hepatic encephalopathy in the past. MELD on 04/23 was 13. -Start torsemide 40mg daily -Hold epelerenone -Stop carvedilol as no evidence of esophageal varices Encounters Date Type Department Care Team Description 09/06/2024 11:30 AM EDT Office Visit [address] [id number] Radha Anne MD Type 2 diabetes mellitus with other specified complication, with long-term current use of insulin (CMS/HCC) (Primary Dx); Hypertension, unspecified type; Dyslipidemia; Long-term use of immunosuppressant medication; Hypothyroidism, unspecified type; Liver transplant recipient (CMS/HCC); Liver transplant rejection (CMS/HCC); Portal vein thrombosis; Stage 3a chronic kidney disease (CMS/HCC); Hyperkalemia; Leg edema; Bilateral leg edema 09/06/2024 Travel 09/05/[address] [address] Radha Anne MD chart prep 08/29/[address] [address] Radha Anne MD Care Coordination (Box Inspector) 07/22/[address] [phone] Radha Anne MD Appointment Request 07/18/[address] [address] Radha Anne MD 07/13/2024 Telephone [facility] [address] [place] [phone] Radha Anne MD chart prep 07/11/2024 Patient Outreach [facility] [address] [place] [phone] Radha Anne MD Pre-visit Planning (Pre-visit planning - LVM ) 07/01/[address] [facility] () Department [address] [place] [phone] Provider, Population Health Generic 06/20/2024 Telephone [facility] [address] [place] [phone] Radha Anne MD Prior Authorization 06/15/2024 Refill [facility] [address] [place] [address] Radha Anne MD from Last 3 Months Immunizations Immunization Administration Dates Next Due Hep B, adult 11/30/2014,03/14/2014,10/20/2013 HepB-CpG 07/15/2022 Influenza injectable quadriv alent preservative free 06/15/2023,02/28/2020 Influenza, IIV3, injectable 03/14/2014 MMR 08/22/2022 Moderna Covid-19 Vaccine 12+ 10/03/2020,09/06/19 21 Pfizer Covid-19 Vaccine 12+ 06/15/2023, 2 Pneumococcal Conjugate PCV 20 08/22/2022 Pneumococcal Polysaccharide PPSV23 09/22/2017,,02/16/1997 TD (adult), 2 Lf tetanus tox oid, preservative free, adsorbed 02/09/2008,02/16/1997 Tdap 08/22/2022,10/20/2013 Zoster, Recombinant 08/22/2022 Social History Tobacco Use Types Packs/Day Years Used Date Smoking Tobacco: Former Cigarettes Passive Smoke Exposure: Never Smokeless Tobacco: Never Tobacco Cessation:Counseling Given: Not Answered Alcohol Use Standard Drinks/Week Comments Not Currently [...] Orientation Straight 02/17/2022 10 :14 AM EDT Last Filed Vital Signs Vital Sign Reading [...] Mass Index 46.84 09/06/2024 11:37 AM EDT Plan of Treatment Health Maintenance Due Date Last Done Comments CT Colonography 1975 FIT DNA/Cologuard 1975 FIT 1975 FOBT 1975 Sigmoidoscopy 1975 Family Planning (PISQ) 06/18/1990 Zoster Vaccines (2 of 2) 10/17/2022 08/22/2022 Pap Smear 06/01/2023 06/01/2020 COVID-19 Vaccine ( season) 2023 06/15/2023, 05/01/2021, 10/03/2020, Additional history exists Influenza Vaccine (#1) 2023 , 02/28/2020, 03/14/2014 Lipid Panel 06/28/2024 06/29/2023, 04/21, 04/08/2022, Additional history exists SDOH Screening 07/23/2024 07/24/2023 Diabetes: Foot Exam 08/17/2024 08/18/2023 Depression Screening 12/06/2024 12/07/2023, 12/07/19 Diabetes: Hemoglobin A1C 12/07/2024 025, 02/02/2024, 11/27/2023, Additional history exists Cervical Cancer Screening 06/01/2025 HPV/Cotest 06/01/2025 06/01/2020 Alcohol/Substance Use Screening 09/06/2025 09/06/2024 Disability Screening 09/06/2025 09/06/2024 Tobacco Screening 09/06/2025 09/06/2024 Eye Exam 12/08/2025 12/09/2023 Mammogram 02/11/2026 02/12/2024, 10/13/2022 Colonoscopy 10/09/2031 10/08/2021 Colorectal Cancer Screening 10/09/2031 DTaP/Tdap/Td Vaccines (3 - Td or Tdap) 08/22/2032 08/22/2022, 10/20/2013, 02/09/2008, Additional history exists RSV Patients and Patients Aged 60 years or older (1 - 1-dose 75+ series) 06/18/2050 HIV Screening Completed 03/21/2021 Hepatitis C Screening Completed 03/21/2021, 021 Hepatitis B Vaccines Completed 07/15/2022, 11/30/2014, 03/14/2014, Additional history exists Pneumococcal Vaccine: Pediatrics (0 to 5 Years) and At-Risk Patients (6 to 49) Years) Completed 08/22/2022, 09/22/2017, 06/27/2013, Additional history exists HIB Vaccines Aged Out No longer eligi ble based on patient's age to complete this topic HPV Vaccines Aged Out No longer eligi ble based on patient's age to complete this topic Hepatitis A Vaccines Discontinued IPV Vaccines Aged Out No longer eligi ble based on patient's age to complete this topic Meningococcal B Vaccine Aged Out No l onger eligible based on patient's age to complete this topic Meningococcal Vaccine Aged Out No krish herbert eligible based on patient's age to complete this topic RSV under 20 months Aged Out No longe r eligible based on patient's age to complete this topic Rotavirus Vaccines Aged Out No longer eligible based on patient's age to complete this topic Procedures Procedure Name Priority Date/Time Associated Diagnosis Comments POCT GLYCATED HEMOGLOBIN, TOTAL Routine 09/06/2024 12:21 PM EDT Type 2 diabetes mellitus with other specified complication, with long-term current use of insulin ([facility]) POCT GLUCOSE Routine 09/06/2024 12:21 PM EDT Type 2 diabetes mellitus with other specified complication, with long-term current use of insulin ([facility]) BI MAMMOGRAM SCREENING TOMOSYNTHESIS BILATERAL Routine 02/12/2024 10:30 AM EDT Breast cancer screening by mammogram DIABETES EYE EXAM Routine 12/09/2023 LIPID PANEL, STANDARD Routine 06/29/2023 2:08 PM EDT COLONOSCOPY Routine 10/08/2021 HIV 1/2 ANTIGEN/ANTIBODY, FOURTH GENERATION W/RFL Routine 03/21/2021 9:46 AM EST HEPATITIS C ANTIBODY (EXTERNAL RESULTS ONLY) Routine 03/21/2021 6:18 AM EST HPV MRNA E6/E7 Routine 06/01/2020 1:26 PM EST THINPREP PAP Routine 06/01/2020 1:26 PM EST from Last 3 Months or Most Recently Relevant to Health Maintenance Results * (ABNORMAL) POCT HGB A1C (09/06/2024 [...] TEST ENTER/EDIT OR DERABLES Final Result * BI Mammogram Screening Tomosynthesis Bilateral (02/12/2024 10:30 AM EDT) Anatomical Region Laterality Modality Breast Bilateral Mammography 02/12/2024 10:3 0 AM EDT Narrative 02/23/2024 8:50 AM EST ? [facility] ? [address] ?[place] [address] ? Mammography Report ? Signed ? Patient: Aguilar,Ema ?MR#: [id number] ?? [id number] ? : 1975 ?Acct:[id number] ? Age/Sex: 48 / F ?ADM Date: 02/12/24 ? Loc: HO.MAMMO ? Attending Dr: Radha Anne MD ? Ordering Physician: Radha Anne MD ?Results: 1Negative ? Date of Service: 02/12/24 ?Follow Up: 1 Year From Orig ?? inal Mammogram ? Procedure(s): MM tomosynthesis screening BI ?? Accession Number(s): [id number] ? cc: Radha Anne MD ? EXAMINATION: ?? MM SCREENING DIGITAL BREAST TOMOSYNTHESIS, BILATERAL ? CLINICAL INFORMATION: ? Screening. Asymptomatic. ? COMPARISON: ?? Mammography: Comparison is made with available priors ? TECHNIQUE: ?? Digital breast mammography with tomosynthesis is performed in both the ?? craniocaudal and mediolateral oblique views along with computer-aided ?? detection (CAD). ? FINDINGS: ?? There are scattered areas of fibroglandular density (ACR BI-RADS breast ?? composition Category b). ? There are no significant masses, abnormal calcifications, or other ?? abnormalities. ? MM/MM tomosynthesis screening BI ?? IMPRESSION: ?? No mammographic evidence of malignancy. ? ASSESSMENT: ? BI-RADS BI-RADS 1 - Negative ? RECOMMENDATION: ?? Routine annual mammography screening. ? 1 year F/U ? This examination should not preclude the clinical evaluation of a ?? suspicious palpable abnormality. ? This patient's information was entered into a reminder system with a ?? target due date for their next mammogram. ? Electronically signed by: ??Jody Reyes DO ??02/23/2024 08:47 AM EST ?? RP ? Dictated By: ?oJdy Reyes DO ? Signed By: ?<Electronically signed by Jody Reyes, DO in OV> ? 02/23/24 0847 ? DD/ 1030 ? TD/TT: 02/12/24 1045 ? Trim Sawyer: ? Procedure Note Donotpepeinterpreter, Image - 02/23/2024 [facility] [address] [place], [place] [address] Mammography Report Signed Patient: Ema AguilarMR#: [id number] : 1975Acct:[id number] Age/Sex: 48 / FADM Date: 02/12/24 Loc: [facility] Attending Dr: Radha Anne MD Ordering Physician: Radha Anne MDResults: 1Negative Date of Service: 02/12/24Follow Up: 1 Year From Orig ina Mammogram Procedure(s): MM tomosynthesis screening BI Accession Number(s): [id number] cc: Radha Anne MD EXAMINATION: MM SCREENING DIGITAL BREAST TOMOSYNTHESIS, BILATERAL CLINICAL INFORMATION: Screening. Asymptomatic. COMPARISON: Mammography: Comparison is made with available priors TECHNIQUE: Digital breast mammography with tomosynthesis is performed in both the craniocaudal and mediolateral oblique views along with computer-aided detection (CAD). FINDINGS: There are scattered areas of fibroglandular density (ACR BI-RADS breast composition Category b). There are no significant masses, abnormal calcifications, or other abnormalities. MM/MM tomosynthesis screening BI IMPRESSION: No mammographic evidence of malignancy. ASSESSMENT: BI-RADS BI-RADS 1 - Negative RECOMMENDATION: Routine annual mammography screening. 1 year F/U This examination should not preclude the clinical evaluation of a suspicious palpable abnormality. This patient's information was entered into a reminder system with a target due date for their next mammogram. Electronically signed by: Jody Reyes DO 02/23/2024 08:47 AM EST Dictated By: Jody Reyes DO Signed By: <Electronically signed by Jody Reyes DO in OV> 02/23/24 0847 DD/ 1030 TD/TT: 02/12/24 1045 Trim Sawyer: Radha Anne MD IMG BI PROCEDURES Final Result * Hm Diabetes Eye Exam (12/09/2023) Eye Exam Normal Normal 12/09/2023 Historical Provider HEALTH MAINTENANCE Final Result * (ABNORMAL) Lipid Panel, Standard (06/29/2023 2:08 PM EDT) Triglycerides 59 <150 mg/dL [facility] Comment:Desirable Triglyceri de: less than 150 mg/dLBorderline High Triglyceride 150-199 mg/dLHigh Triglyceride: 200-499 mg/dLVery High Triglyceride: greater than or equal to 5OO mg/dL Cholesterol 81 <200 mg/dL [facility] Comment:Desirable Cholestero l: less than 200 mg/dLBorderline High Cholesterol: 200-239 mg/dLHigh Cholesterol: greater than 239 mg/dL LDL Cholesterol Calculated 41 <100 mg/dL [facility] Comment:Desirable LDL: less than 100 mg/dLNear Optimal/Above Optimal LDL: 110- 129 mg/dLBorderline High LDL: 130-159 mg/dLHigh LDL: 160-189 mg/dLVery High LDL: greater than or equal to 190 mg/dL HDL Cholesterol 29(L) >40 mg/dL [facility] Comment:Desirable HDL: great er than 40 mg/dL Note: This HDL assay may give artificially low results in patients with liver disease. 06/29/2023 2:08 PM EDT 06/29/2023 4:18 PM EDT Lilliam Singh MD LAB BLOOD ORDERAB LES Final Result [facility] [address] [place] [phone] * Hm Colonoscopy (10/08/2021) Pathologist [facility] Colonoscopy Normal Normal Comment:No polyp. Fair prep. Recommended to repeat in 1-2 years 10/08/2021 Historical Provider HEALTH MAINTENANCE Final Result * HIV 1/2 ANTIGEN/ANTIBODY,FOURTH GENERATION W/RFL (03/21/2021 9:46 AM EST) Pathologist [facility] HIV-1/2 ANTIGEN AND ANTIBODIES, 4TH GENERATION W/ REFLEX NON-REACT ARETHA NON-REACT ARETAH [facility] Comment: HIV-1 antigen and HIV-1/HIV-2 antibodies were not detected. There is no laboratory evidence of HIV infection. ?? PLEASE NOTE: This information has been disclosed to you from records whose confidentiality may be protected by state law. ??If your state requires such protection, then the state law prohibits you from making any further disclosure of the information without the specific written consent of the person to whom it pertains, or as otherwise permitted by law. A general authorization for the release of medical or other information is NOT sufficient for this purpose. ? For additional information please refer to http://education.[employer]Six.[employer] Torrent/faq/ANK037 (This link is being provided for informational/ educational purposes only.) ? The performance of this assay has not been clinically validated in patients less than 2 years old. ?? 03/21/2021 9:46 AM EST Radha Anne MD LAB BLOOD ORDERABLES Final Resul t [facility] [address] * Hepatitis C Antibody (03/21/2021 6:18 AM EST) Hepatitis C Antibody Nonreactive Blood 03/21/2021 6:18 AM EST us Historical Provider MD POINT OF CARE TEST ENTER/ EDIT ORDERABLES Final Result * (ABNORMAL) THINPREP PAP (06/01/2020 1:26 PM EST) Clinical Information: None given [facility] COMMENT SEE COMMENT [facility] Comment: EXPLANATORY NOTE: ? The Pap is a screening test for cervical cancer. It is ?? not a diagnostic test and is subject to false negative ?? and false positive results. It is most reliable when a ?? satisfactory sample, regularly obtained, is submitted ?? with relevant clinical findings and history, and when ?? the Pap result is evaluated along with historic and ?? current clinical information. ?? Talent Manager : SEE COMMENT [facility] Comment: YP, CT(ASCP) CT screening location: [address] ??[address] General Categorization: EPITHELIAL CELL ABNORMALITY(A) [facility] Interpretation/R esult: Atypical Squamous Cells of Undetermined Significance (ASC-US)(A) [facility] LMP: NONE GIVEN [facility] PATHOLOGIST: SEE COMMENT [facility] Comment: Luana Singleton M.D., Board Certified in Anatomic and Clinical Pathology (electronic signature) Consulting Pathologist [facility] [phone] Prev. BX: NONE GIVEN [facility] Prev. PAP: NONE GIVEN [facility] SOURCE: None given [facility] Statement Of Adequacy: SEE COMMENT [facility] Comment: Satisfactory for evaluation. Endocervical/transformation zone component present. Age and/or menstrual status not provided 06/01/2020 1:26 PM EST Radha Anne MD LAB PATHOLOGY ORDERABLES Final R esult [facility] [address] * HPV mRNA E6/E7 (06/01/2020 1:26 PM EST) HPV nRNA E6/E7 Not Detected Not Detected [facility] Comment: Methodology: Office Services Representative-Mediated Amplification This assay detects E6/E7 viral messenger RNA (mRNA) from 14 high-risk HPV types (16,18,31,33,35,39,45,51,52,56,58,59,66,68). ? The analytical performance characteristics of this assay have been determined by [employer]. The modifications have not been cleared or approved by the FDA. This assay has been validated pursuant to the CLIA regulations and is used for clinical purposes. ?? For additional information, please refer to http://education.TenTwenty7/WOX082z4 (This link if provided for information/ educational purposes only.) NO COLLECTION DATE RECEIVED. WE HAVE USED THE DATE THE SPECIMEN WAS RECEIVED BY THIS LABORATORY THE COLLECTION DATE. IF THIS IS INCORRECT, PLEASE CONTACT CLIENT SERVICES. PHONE NUMBER: ?? 06/01/2020 1:26 PM EST us Radha Anne MD LAB BLOOD ORDERABLES Final Resul t [facility] [address] from Last 3 Months or Most Recently Relevant to Health Maintenance Insurance C3 Care Teams Silviculture Teacher Relationship Specialty Start Date End Date Radha Anne MD [address] [place] [phone] PCP - General Family Medicine 03/01/13 Lynn Fisher Paper Tube GraderAntenna Specialist 01/07/23 Lynn Fisher Paper Tube GraderAntenna Specialist 08/13/23 Lynn Fisher Paper Tube GraderAntenna Specialist 08/29/24
--- OUTSIDE RECORDS SUMMARY | 2024-09-06 13:44 | XMS_ITS | Encounter Summary ---
Author Organization [employer] Address [address] [place] [address] 7 [place] [address] Care Team Providers Care Home Health Care Worker Name Role Phone Radha Anne MD Primary Care Provider Reason for Visit * Reason Onset Date Comments chart prep 09/05/2024 Encounter Details Date Type Department Care Team ([facility] st Contact Info) Description 09/05/2024 Telephone [facility] [address] [place], [place] [phone] Radha Anne MD [address] [place], [place] [phone] chart prep Social History Tobacco Use Types Packs/Day Years [...] encounter Miscellaneous Notes * Telephone Encounter - Yeni Hernandez [place] - 09/05/2024 12:22 PM EDT Chart Prep Labs: done Images: done Vaccines due: Not Applicable Referrals: Completed Screenings: Colonoscopy , PAP, and Foot Exam Overdue care gaps: A1C, Glucose, SDOH, Disability , and Oral Health documented in this encounter Plan of Treatment Not on file documented as of this encounter Visit Diagnoses Not on filedocumented in this encounter Care Teams Home Health Care Worker Relationship Specialty Start Date End Date Radha Anne MD [address] [place] [address] PCP - General Family Medicine 03/01/13 Lynn Fisher CarpenterPublication Designer 01/07/23 Lynn Fisher CarpenterPublication Designer 08/13/23 Lynn Fisher CarpenterPublication Designer 08/29/24 documented as of this encounter
--- OUTSIDE RECORDS SUMMARY | 2024-09-06 13:44 | XMS_ITS | Encounter Summary ---
Author Organization [employer] Address [address] [place] [address] 7 [place] [address] Care Team Providers Care Restaurant Mgr Name Role Phone Radha Anne MD Primary Care Provider [phone] Reason for Visit * Reason Comments Med Refill Encounter Details Date Type Department Care Team ([facility] st Contact Info) Description 09/01/2023 Refill [facility] [address] [place], [place] [phone] Radha Anne MD [address] [place], [place] [phone] Social History Tobacco Use Types Packs/Day Years [...] on filedocumented in this encounter Care Teams Restaurant Mgr Relationship Specialty Start Date End Date Radha Anne MD [address] [place] [phone] PCP - General Family Medicine 03/01/13 Lynn Fisher Wet Wash AssemblerEarly Years Teacher 01/07/23 Lynn Fisher Wet Wash AssemblerEarly Years Teacher 08/13/23 Lynn Fisher Wet Wash AssemblerEarly Years Teacher 08/29/24 documented as of this encounter
--- OUTSIDE RECORDS SUMMARY | 2024-09-06 13:44 | XMS_ITS | Encounter Summary ---
Author Organization [employer] Address [address] [facility] [address] [place] [address] Care Team Providers Care Supervisor Reactor Fueling Name Role Phone Radha Anne MD Primary Care Provider Encounter Details Date Type Department Care Team ([facility] st Contact Info) Description 04/15/2023 Telephone [facility] [address] [place], [place] [phone] Radha Anne MD [address] [place], [place] [phone] Social History Tobacco Use Types Packs/Day Years [...] the past 12 months, has t he [employer], [employer], oil or water company threatened to shut [...] on filedocumented in this encounter Care Teams Supervisor Reactor Fueling Relationship Specialty Start Date End Date Radha Anne MD [address] [place] [phone] PCP - General Family Medicine 03/01/13 Lynn Fisher Senior Facilities ManagerMechanical Piping Designer 01/07/23 Lynn Fisher Senior Facilities ManagerMechanical Piping Designer 08/13/23 Lynn Fisher Senior Facilities ManagerMechanical Piping Designer 08/29/24 documented as of this encounter
--- OUTSIDE RECORDS SUMMARY | 2024-09-06 13:44 | XMS_ITS | Clinical Summary ---
Author Organization [email or web address] [facility] Address [address] [place] [address] Care Team Providers Care Hearing Screener Name Role Phone Ed Burns MD Primary Care Provider [phone] Social History Tobacco Use Types Packs/Day Years Used Date Smoking Tobacco: Never Assessed Comments Unknown Sex and Gender Information Value Date Recorded Sex Assigned at Not on file Legal Sex Female 8:20 PM EST Gender Identity Not on file Sexual Orientation Not on file Plan of Treatment Health Maintenance Due Date Last Done Comments Breast Cancer Screening 1975 COVID-19 Vaccine (#1) 06/18/1980 DTaP,Tdap,and Td Vaccines (1 - Tdap) 06/18/1994 Hepatitis B Vaccines (1 of 3 - 19+ 3-dose series) 06/18/1994 Pneumococcal Vaccine: Pediat rics (0 to 5 Years) and At-Risk Patients (6 to 64 Years) (1 of 2 - PCV) 06/18/1994 Cervical Cancer Screening: P ap Smear 06/18/1996 Colorectal Cancer Screening: Colonoscopy 05/14/2023 Depression Screening 05/14/2023 HIV Screening 05/14/2023 Hepatitis C Screening 05/14/2023 Social Influencers of Health Screening 05/14/2023 Influenza Vaccine (Season Ended) 2024 HIB Vaccines Aged Out No longer eligi ble based on patient's age to complete this topic HPV Vaccines Aged Out No longer eligi ble based on patient's age to complete this topic Hepatitis A Vaccines Aged Out No long er eligible based on patient's age to complete this topic IPV Vaccines Aged Out No longer eligi ble based on patient's age to complete this topic MMR Vaccines Aged Out No longer eligi ble based on patient's age to complete this topic Meningococcal ACWY Vaccine Aged Out N o longer eligible based on patient's age to complete this topic Meningococcal B Vaccine Aged Out No l onger eligible based on patient's age to complete this topic RSV Immunization Patients Un jaimie 20 months Aged Out No longer eligible b ased on patient's age to complete this topic Varicella Vaccines Aged Out No longer eligible based on patient's age to complete this topic Care Teams Hearing Screener Relationship Specialty Start Date End Date Ed Burns MD [address] [place] [address] PCP - General 01/05/09
--- OUTSIDE RECORDS SUMMARY | 2024-09-06 13:44 | XMS_ITS | Encounter Summary ---
Author Organization [email or web address] Address [address] [place] [address] [address] [place] [address] Care Team Providers Care Educational Speech Language Clinician Name Role Phone Radha Anne MD Primary Care Provider [phone] Reason for Visit * Reason Onset Date Comments verbal order 07/28/2022 Encounter Details Date Type Department Care Team ([facility] st Contact Info) Description 07/28/2022 Telephone [facility] [address] [place], [place] [phone] Radha Anne MD [address] [place], [place] [phone] verbal order Social History Tobacco Use Types Packs/Day Years Used Date Smoking Tobacco: Never Assessed Comments Unknown Sex and Gender Information Value Date Recorded Sex Assigned at Female 02/17/2022 10:14 AM EDT Legal Sex Female 10:14 AM EDT Gender Identity Female 02/17/2022 10:14 AM EDT Sexual Orientation Straight 02/17/2022 10 :14 AM EDT documented as of this encounter Miscellaneous Notes * Telephone Encounter - Radha Anne MD - 08/01/2022 12:07 PM EDT Called and gave a verbal order in the voicemail. * Telephone Encounter - Merlyn Adams - 07/28/2022 10:35 AM EDT Tc ava Amanda from [facility] requesting a verbal order for pt to start services for 2x a week for2 weeks and if pt still needs services it will continue for 1x a week for 7 weeks . Best contact # [phone]. documented in this encounter Plan of Treatment Not on file documented as of this encounter Visit Diagnoses Not on filedocumented in this encounter Care Teams Educational Speech Language Clinician Relationship Specialty Start Date End Date Radha Anne MD [address] [place] [phone] PCP - General Family Medicine 03/01/13 Lynn Fisher Site ForemanGlassware Defect Repairer 01/07/23 Lynn Fisher Site ForemanGlassware Defect Repairer 08/13/23 Lynn Fisher Site ForemanGlassware Defect Repairer 08/29/24 documented as of this encounter
--- OUTSIDE RECORDS SUMMARY | 2024-09-06 13:44 | XMS_ITS | Encounter Summary ---
Author Organization [employer] Address [address] [place] [address] 7 [place] [address] Care Team Providers Care Engine Repairer Production Name Role Phone Radha Anne MD Primary Care Provider Reason for Visit * Reason Onset Date Comments PT-1 06/02/2024 Encounter Details Date Type Department Care Team ([facility] st Contact Info) Description 06/02/2024 Telephone [facility] MEDICINE 230 [place], [place] [phone] Radha Anne MD 230 [place], [place] [phone] PT-1 Social History Tobacco Use Types Packs/Day Years [...] encounter Miscellaneous Notes * Telephone Encounter - Antoni Worthington - 06/02/2024 2:18 PM EST Patient calling requesting PT1 Home Address verified: Y/N: Yes Provider name or facility name: [address] [place] [address] Escort needed: Y/N: Yes Do you have a wheelchair: Y/N: No If yes- Manual or electric: Visits: (2 x Monthly) Patient calling requesting PT1 Home Address verified: Y/N: Yes Provider name or facility name: [address] Escort needed: Y/N: Yes Do you have a wheelchair: Y/N: No If yes- Manual or electric: Visits: (1 x Monthly) Patient calling requesting PT1 Home Address verified: Y/N: Yes Provider name or facility name: [address] [place] [id number] [place] [address] Escort needed: Y/N: Yes Do you have a wheelchair: Y/N: No If yes- Manual or electric: Visits: (3 x Montly) Contact pt at [phone] documented in this encounter Plan of Treatment Not on file documented as of this encounter Visit Diagnoses Not on filedocumented in this encounter Care Teams Engine Repairer Production Relationship Specialty Start Date End Date Radha Anne MD [address] [place] [address] PCP - General Family Medicine 03/01/13 Lynn Fisher Salesperson JewelryCloth Designer 01/07/23 Lynn Fisher Salesperson JewelryCloth Designer 08/13/23 Lynn Fisher Salesperson JewelryCloth Designer 08/29/24 documented as of this encounter
--- OUTSIDE RECORDS SUMMARY | 2024-09-06 13:44 | XMS_ITS | Encounter Summary ---
Author Organization [facility] Address [address] [place] [address] [place] [address] Care Team Providers Care Integration Architect Name Role Phone Radha Anne MD Primary Care Provider [phone] Reason for Visit * Reason Onset Date Comments Hospital Follow-up 06/10/2022 Encounter Details Date Type Department Care Team ([facility] st Contact Info) Description 06/10/2022 Telephone [facility] MEDICINE 230 [place], [place] [phone] Rahda Anne MD 230 [place] [address] Hospital Follow-up Social History Tobacco Use Types Packs/Day Years Used Date Smoking Tobacco: Never Assessed Comments Unknown Sex and Gender Information Value Date Recorded Sex Assigned at Female 02/17/2022 10:14 AM EDT Legal Sex Female 10:14 AM EDT Gender Identity Female 02/17/2022 10:14 AM EDT Sexual Orientation Straight 02/17/2022 10 :14 AM EDT documented as of this encounter Miscellaneous Notes * Telephone Encounter - Merlyn Adams - 06/10/2022 9:43 AM EST Patient calling for F follow up appointment. Patient hospitalized at [facility] and discharged on 06/08/22. Patient advised will forward to team nurse for follow up and appointment scheduling. documented in this encounter Plan of Treatment Not on file documented as of this encounter Visit Diagnoses Not on filedocumented in this encounter Care Teams Integration Architect Relationship Specialty Start Date End Date Radha Anne MD [address] [place] [phone] PCP - General Family Medicine 03/01/13 Lynn Fisher Skein DrierCut Off Operator Scorer 01/07/23 Lynn Fisher Skein DrierCut Off Operator Scorer 08/13/23 Lynn Fisher Skein DrierCut Off Operator Scorer 08/29/24 documented as of this encounter
--- OUTSIDE RECORDS SUMMARY | 2024-09-06 13:44 | XMS_ITS | Encounter Summary ---
Author Organization [facility] Address [address] [place] [address] 7 [place] [address] Care Team Providers Care Integration Aide Name Role Phone Radha Anne MD Primary Care Provider [phone] Reason for Visit * Reason Onset Date Comments Verbal Order(s) 04/10/2023 Encounter Details Date Type Department Care Team ([facility] st Contact Info) Description 04/10/2023 Telephone [facility] MEDICINE 230 [place], [place] [phone] Radha Anne MD 230 [place] [address] Verbal Order(s) Social History Tobacco Use Types Packs/Day Years [...] encounter Miscellaneous Notes * Telephone Encounter - Kaveh Mistry - 04/10/2023 1:54 PM EST Tc from Darlyn working with [employer] requesting verbal order. She states shewould like to see the pt 1 time for one week and twice a week for seven additional weeks for occupational therapy. Please contact Darlyn at [phone]. documented in this encounter Plan of Treatment Not on file documented as of this encounter Visit Diagnoses Not on filedocumented in this encounter Care Teams Integration Aide Relationship Specialty Start Date End Date Radha Anne MD [address] [place] [phone] PCP - General Family Medicine 03/01/13 Lynn Fisher Dyeing Machine TenderAdvertising Inserter 01/07/23 Lynn Fisher Dyeing Machine TenderAdvertising Inserter 08/13/23 Lynn Fisher Dyeing Machine TenderAdvertising Inserter 08/29/24 documented as of this encounter
--- OUTSIDE RECORDS SUMMARY | 2024-09-06 13:44 | XMS_ITS | Encounter Summary ---
Author Organization [employer] Address [address] [facility] 7t [place] [address] Care Team Providers Care Home Decorator Name Role Phone Radha Anne MD Primary Care Provider [phone] Encounter Details Date Type Department Care Team (Late st Contact Info) Description 04/28/2023 Orders Only [facility] MEDICINE 230 [place], [place] [phone] Radha Anne MD 230 [place], [place] [phone] Social History Tobacco Use Types Packs/Day Years Used Date Smoking Tobacco: Never Smokeless Tobacco: Never Alcohol Use Standard Drinks/Week Comments Not Currently 0 (1 standard drink = 0.6 oz pur e alcohol) PHQ-2 Answer Date Recorded Patient Health Questionnaire-2 Score 0 09/03/2022 Housing Stability Answer Date Recorded What is your housing situation today? I have derian sing 04/29/[address] you li [...] filedocumented in this encounter Care Teams Home Decorator Relationship Specialty Start Date End Date Radha Anne MD [address] [place] [address] PCP - General Family Medicine 03/01/13 Lynn Fisher Registered Public Health NurseDemo Specialist 01/07/23 Lynn Fisher Registered Public Health NurseDemo Specialist 08/13/23 Lynn Fisher Registered Public Health NurseDemo Specialist 08/29/24 documented as of this encounter
--- OUTSIDE RECORDS SUMMARY | 2024-09-06 13:44 | XMS_ITS | Clinical Summary ---
Author Organization [facility] Address [address] [place] [address] Phone Care Team Providers Care Heritage Consultant Name Role Phone Radha Anne MD Primary Care Provider [phone] Allergies Active Allergy Reactions Criticality Noted Date Comments Codeine 03/14/2014 Other reaction(s): unknown,per PCP note Ibuprofen Rash Low 03/19/2023 Iodine 03/19/2023 Other reaction(s): gastritis,acidity Oxycodone 03/14/2014 Penicillins Rash Medium 05/12/2012 Tramadol 03/14/2014 Medications Vitamin A 3 MG (30315 UT) capsule Take 1 tablet by mouth 1 (one) time each day 3 Active torsemide (DEMADEX) 20 MG tablet Take 40 mg by mouth 1 (one) time each day 3 Active spironolactone (ALDACTONE) 100 MG tablet Take 200 mg by mouth 1 (one) time each day 3 Active potassium chloride (KLOR-CON M20) 20 MEQ CR tablet Take 20 mEq by mouth 1 (one) time each day 3 Active omeprazole (PriLOSEC) [address] capsule TAKE 1 CAPSULE BY MOUTH EVERY DAY AT 630 IN THE MORNING 3 Active ondansetron (ZOFRAN) 4 MG tablet Take 8 mg by mouth 0 Active Asmanex HFA 200 MCG/ACT aerosol INHALE 1 PUFF BY MOUTH TWICE DAILY, RINSE MOUTH AFTER USING. 3 Active metFORMIN XR (GLUCOPHAGE-XR ) 500 MG 24 hr tablet discontinue 2 Active lisinopril 2.5 MG tablet take 1 tablet (2.5MG) by oral route every day 0 Active loratadine (CLARITIN) 10 MG tablet Take 1 tablet by mouth every other day 2 Active ipratropium-al buterol (DUO-NEB) 0.5-2.5 mg/3 mL nebulizer solution INHALE 1 AMPULE USING A NEBULIZER FOUR TIMES DAILY NEEDED FOR SHORTNESS OF BREATH 3 Active levothyroxine (SYNTHROID, LEVOTHROID) 50 MCG tablet Take 1 tablet by mouth at bed time 1 Active Toujeo Max SoloStar 300 UNIT/ML solution pen-injector INJECT 80 UNITS SUBCUTANEOUSLY EVERY DAY 3 Active furosemide (LASIX) 40 MG tablet Take 1 tablet by mouth in the morning and 1 tablet in the evening. 2 Active Flovent HFA 220 MCG/ACT inhaler INHALE 2 PUFFS BY MOUTH TWICE DAILY. RINSE MOUTH AFTER USING. 3 Active Dulaglutide (Trulicity) 1.5 MG/0.5ML solution pen-injector Inject under the skin 1 (one) time per week 2 Active D3 Super Strength 50 MCG (2000 UT) capsule Take 1 capsule by mouth 1 (one) time each day 3 Active Ventolin HFA 108 (90 Base) MCG/ACT inhaler 2 puffs every 6 (six) hours 3 Active Active Problems Problem Noted Date Diagnosed Date Cirrhosis - non-alcoholic 09/05/20212022 Diabetic peripheral neuropathy 01/26/2017 1 05/19/2022 Allergic rhinitis 12/10/2016 03/19/2023 Gastroesophageal reflux disease 06/16/2016 03/19/2023 Carpal tunnel syndrome 02/26/2016 3 Type 2 diabetes mellitus 08/22/2015 023 Dyslipidemia 04/10/2015 03/19/2023 Degeneration of lumbosacral intervertebral disc 04/10/2015 03/19/2023 Hypertension 04/10/2015 03/19/2023 Obstructive sleep apnea syndrome 04/10/2015 03/19/2023 Lumbosacral radiculitis 08/29/2014 Overview (01/19/2024): Replacing diagnoses that were inactivated after the 01/19/24 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 03/19/2023 Polycystic ovary syndrome 06/27/20132022 Urticaria 07/08/2012 03/19/2023 Asthma 04/05/2012 03/19/2023 Obesity 04/05/2012 03/19/2023 Plantar fasciitis 04/05/2012 03/19/2023 Amenorrhea 12/17/2011 03/19/2023 Female infertility 12/17/2011 03/19/2023 Social History Tobacco Use Types Packs/Day Years Used Date Smoking Tobacco: Never Assessed Comments Unknown Sex and Gender Information Value Date Recorded Sex Assigned at Not on file Legal Sex Female 8:50 AM EST Gender Identity Not on file Sexual Orientation Not on file Plan of Treatment Health Maintenance Due Date Last Done Comments Hepatitis B Vaccine (1 of 3 - 19+ 3-dose series) 06/18/1994 Diabetes: Hemoglobin A1C 06/09/2022 Diabetes: Ophthalmology Exam 06/09/2022 Diabetes: Pedal Pulse Checked 06/09/2022 Diabetes: Sensory Foot Exam 06/09/2022 Diabetes: Visual Foot Exam 06/09/2022 Colorectal Cancer Screening: Annual FOBT 06/18/2024 Colorectal Cancer Screening: Colonoscopy 06/18/2024 Colorectal Cancer Screening: Sigmoidoscopy 06/18/2024 Influenza Vaccine (Season Ended) 2024 Pneumococcal Vaccine: Peds ( 0 to 5 Years) and At-Risk Patients (6 to 49 Years) Aged Out No longer eligible b ased on patient's age to complete this topic [place] Care Teams Heritage Consultant Relationship Specialty Start Date End Date Radha Anne MD PCP - General Family Medicine 06/03/22
--- OUTSIDE RECORDS SUMMARY | 2024-09-06 13:44 | XMS_ITS | Encounter Summary ---
Author Organization [employer] Address [address] [place] [address] 7 [place] [address] Care Team Providers Care Environmental Manager Name Role Phone Radha Anne MD Primary Care Provider [phone] Reason for Visit * Reason Onset Date Comments Durable Medical Equipment 05/11/2023 Encounter Details Date Type Department Care Team ([facility] st Contact Info) Description 05/11/2023 Telephone [facility] MEDICINE 230 [place], [place] [phone] Radha Anne MD 230 [place], [place] [phone] Durable Medical Equipment Social History Tobacco Use Types Packs/Day Years Used Date Smoking Tobacco: Never Smokeless Tobacco: Never Alcohol Use Standard Drinks/Week Comments Not Currently 0 (1 standard drink = 0.6 oz pur e alcohol) PHQ-2 Answer Date Recorded Patient Health Questionnaire-2 Score 0 09/03/2022 Housing Stability Answer Date Recorded What is your housing situation today? I have derian barrientos 04/29/[address] you [...] encounter Miscellaneous Notes * Telephone Encounter - Ada Matias - 05/16/2023 7:01 PM EST PT-1 submitted for patient. They will receive a letter of approval or denial in the mail. * Telephone Encounter - Roro Maya - 05/11/2023 4:53 PM EST Please see message below and advise if agree with DME. * Telephone Encounter - Merlyn Adams - 05/11/2023 11:27 AM EST Tc from [facility] CORONA requesting a bariatric scale. documented in this encounter Plan of Treatment Not on file documented as of this encounter Visit Diagnoses Not on filedocumented in this encounter Care Teams Environmental Manager Relationship Specialty Start Date End Date Radha Anne MD [address] [place] [address] PCP - General Family Medicine 03/01/13 Lynn Fisher Cutting PressmanCosmetic Assembler 01/07/23 Lynn Fisher Cutting PressmanCosmetic Assembler 08/13/23 Lynn Fisher Cutting PressmanCosmetic Assembler 08/29/24 documented as of this encounter
--- OUTSIDE RECORDS SUMMARY | 2024-09-06 13:44 | XMS_ITS | Encounter Summary ---
Author Organization [employer] Address [address] [place] [address] 7 [place] [address] Care Team Providers Care Liability Claims Manager Name Role Phone Radha Anne MD Primary Care Provider [phone] Reason for Visit * Reason Onset Date Comments Hospital Follow-up 04/29/2023 Encounter Details Date Type Department Care Team ([facility] st Contact Info) Description 04/29/2023 Telephone [facility] MEDICINE 230 [place], [place] [phone] Radha Anne MD 230 [place], [place] [phone] Hospital Follow-up Social History Tobacco Use Types [...] * Telephone Encounter - Kalli Terry - 04/29/2023 1:31 PM EST Tc from pt requesting a HDF appt. [facility] [facility] Date of admission: 04/24 Discharge date: 04/28 Diagnosed: Gastrointestinal hemorrhage Please contact pt at [phone] documented in this encounter Plan of Treatment Not on file documented as of this encounter Visit Diagnoses Not on filedocumented in this encounter Care Teams Liability Claims Manager Relationship Specialty Start Date End Date Radha Anne MD [address] [place] [address] PCP - General Family Medicine 03/01/13 Lynn Fisher Neon Sign WorkerShop Service Technician 01/07/23 Lynn Fisher Neon Sign WorkerShop Service Technician 08/13/23 Lynn Fisher Neon Sign WorkerShop Service Technician 08/29/24 documented as of this encounter
--- OUTSIDE RECORDS SUMMARY | 2024-09-06 13:44 | XMS_ITS | Encounter Summary ---
Author Organization [employer] Address [address] [place] [address] 7 [place] [address] Care Team Providers Care Manager Transition Name Role Phone Radha Anne MD Primary Care Provider [phone] Reason for Visit * Reason Comments Med Refill Encounter Details Date Type Department Care Team (Late st Contact Info) Description 02/04/[address] [facility] MEDICINE 230 [place], [place] [phone] Radha Anne MD 230 [place], [place] [phone] Social History Tobacco Use Types Packs/Day Years [...] on filedocumented in this encounter Care Teams Manager Transition Relationship Specialty Start Date End Date Radha Anne MD [address] [place] [address] PCP - General Family Medicine 03/01/13 Lynn Fisher Billet Heater OperatorLabourers 01/07/23 Lynn Fisher Billet Heater OperatorLabourers 08/13/23 Lynn Fisher Billet Heater OperatorLabourers 08/29/24 documented as of this encounter
--- OUTSIDE RECORDS SUMMARY | 2024-09-06 13:44 | XMS_ITS | Encounter Summary ---
Author Organization [employer] Address [address] [place] [address] 7 [place] [address] Care Team Providers Care Pocket Assembler Name Role Phone Radha Anne MD Primary Care Provider [phone] Reason for Visit * Reason Onset Date Comments sina CORONA 10/30/2023 Encounter Details Date Type Department Care Team ([facility] st Contact Info) Description 10/30/2023 Telephone [facility] MEDICINE 230 [place], [place] [phone] Radha Anne MD 230 [place], [place] [phone] fyi MARYA Social History Tobacco Use Types Packs/Day Years [...] encounter Miscellaneous Notes * Telephone Encounter - Antonio Carbone - 10/30/2023 9:40 AM EDT [facility] provider visit for today with pt has been missed due to pt being at the ER. documented in this encounter Plan of Treatment Not on file documented as of this encounter Visit Diagnoses Not on filedocumented in this encounter Care Teams Pocket Assembler Relationship Specialty Start Date End Date Radha Anne MD 230 [place] [address] PCP - General Family Medicine 03/01/13 Lynn Fisher Lens MolderOr First Assist Registered Nurse 01/07/23 Lynn Fisher Lens MolderOr First Assist Registered Nurse 08/13/23 Lynn Fisher Lens MolderOr First Assist Registered Nurse 08/29/24 documented as of this encounter
--- OUTSIDE RECORDS SUMMARY | 2024-09-06 13:44 | XMS_ITS | Encounter Summary ---
Author Organization [employer] Address [address] [facility] 7 [place] [address] Care Team Providers Care Restaurant Busser Name Role Phone Radha Anne MD Primary Care Provider [phone] Encounter Details Date Type Department Care Team ([facility] st Contact Info) Description 07/21/2023 Orders Only [facility] MEDICINE 230 [place], [place] [phone] Radha Anne MD 230 [place], [place] [phone] Social History Tobacco Use Types Packs/Day Years Used Date Smoking Tobacco: Never Passive Smoke Exposure: Never Smokeless Tobacco: Never [...] filedocumented in this encounter Care Teams Restaurant Busser Relationship Specialty Start Date End Date Radha Anne MD [address] [place] [address] PCP - General Family Medicine 03/01/13 Lynn Fisher Picker Box OperatorCirculation Man 01/07/23 Lynn Fisher Picker Box OperatorCirculation Man 08/13/23 Lynn Fisher Picker Box OperatorCirculation Man 08/29/24 documented as of this encounter
--- OUTSIDE RECORDS SUMMARY | 2024-09-06 13:45 | XMS_ITS | Encounter Summary ---
Author Organization [employer] Address [address] [place] [address] 7 [place] [address] Care Team Providers Care Oral Surgeon Name Role Phone Radha Anne MD Primary Care Provider [phone] Encounter Details Date Type Department Care Team (Late st Contact Info) Description 09/10/[address] [facility] MEDICINE 230 [place], [place] [phone] Radha Anne MD 230 [place], [place] [phone] Social History Tobacco Use Types Packs/Day Years Used Date Smoking Tobacco: Never Smokeless Tobacco: Never Alcohol Use Standard Drinks/Week Comments Not Currently 0 (1 standard drink = 0.6 oz pur e alcohol) PHQ-2 Answer Date Recorded Patient Health Questionnaire-2 Score 0 09/03/2022 Depression Answer Date Recorded Patient Health Questionnaire-2 Score 0 09/03/2022 Comments Unknown Sex and Gender Information Value Date Recorded Sex Assigned at Female 02/17/2022 10:14 AM EDT Legal Sex Female 10:14 AM EDT Gender Identity Female 02/17/2022 10:14 AM EDT Sexual Orientation Straight 02/17/2022 10 :14 AM EDT COVID-19 Exposure Response Date Recorded In the last 10 days, have yo u been in contact with someone who was confirmed or suspected to have Coronavirus/COVID-19? No / Unsure 09/03/2022 2:38 PM EDT documented as of this encounter Plan of Treatment Not on file documented as of this encounter Visit Diagnoses Not on filedocumented in this encounter Care Teams Oral Surgeon Relationship Specialty Start Date End Date Radha Anne MD [address] [place] [address] PCP - General Family Medicine 03/01/13 Lynn Fisher National Park Tour GuideThread Milling Machine Set Up Operator 01/07/23 Lynn Fisher National Park Tour GuideThread Milling Machine Set Up Operator 08/13/23 Lynn Fisher National Park Tour GuideThread Milling Machine Set Up Operator 08/29/24 documented as of this encounter
[2024-09-06 14:14] LABS: Anion Gap 12 (12-20); Blood Urea Nitrogen 15 mg/dL (9-16); Calcium 9.5 mg/dL (8.4-10.2); Carbon Dioxide 27 mmol/L (22-29); Chloride 105 mmol/L (96-108); Cholesterol 191 mg/dL (<200); Estimated Glomerular Filt Rate 47; Glucose Random 171 mg/dL (60-115); HDL Cholesterol 23 mg/dL (>40); Magnesium 1.8 mg/dL (1.6-2.6); Potassium 4.5 mmol/L (3.3-5.1); Sodium 139 mmol/L (135-145); Triglycerides 420 mg/dL (<150)
[2024-09-06 14:28] LABS: TSH reflex Free T4 4.88 uIU/mL (0.32-4.0)
[2024-09-06 16:06] LABS: Reflex LDLD? Yes
[2024-09-06 16:27] LABS: Free T4 (Free Thyroxine) 1.01 ng/dL (0.71-1.85)
[2024-09-07 21:43] LABS: LDL Cholesterol Direct 108 mg/dL (<100)
== END 2024-09-06 12:39 | disposition home or self-care (01) ==
LOC: HO.HHCL 12:38
PROVIDERS: Visit Provider Family Medicine
DX: E83.42 Hypomagnesemia (principal); E78.5 Hyperlipidemia, unspecified; E03.9 Hypothyroidism, unspecified
CPT/HCPCS: 36415; 80048; 80061; 83721; 83735; 84439; 84443